=== PATIENT | female | born 1940 | race Caucasian/White ===

== ENCOUNTER → 2016-10-17 | Outpatient (CLI) | payer OTHER ==
[~2016-10-17] MED LIST: ACET-1175 PO; ADVIN10/60 INH; AMOX500C3 PO; ASPI1CHW12 PO; BUSP15TA70 PO; CYM/30 PO; DILT-113 PO; DILT180C9 PO; DRGTP25 TD; FURO40TA3 PO; GLUC1CAP33 PO; IPRASOL4 INH; LEVO75TA PO; MAGN1TAB19 PO; MECL1TAB42 PO; METO50TA16 PO; MONT1TAB3 PO; PANT40TA PO; POTA20TA16 PO; PROM25TA9 PO; SENN-91 PO; SUCR1TAB29 PO; TRAM-453 PO; WARF3TAB6 PO; WARF4TAB43 PO; ZOLP5TAB PO
--- NOTE | 2016-10-17 11:54 | DIAGNOSTIC IMAGING REPORT ---
Brain MRI WITHOUT CONTRAST HISTORY: R51 New onset of headaches after age [id number] TECHNIQUE: Multiplanar multisequence MRI of the brain was performed without the use of contrast. COMPARISON STUDY: Brain MRI 08/02/2015. FINDINGS: There is no mass, hematoma, midline shift, or acute infarct. The paranasal sinuses are clear. The mastoid or cells are clear. The ventricles and sulci demonstrate mild age-related involutional changes. Scattered foci of T2 hyperintensity seen within the periventricular and subcortical white matter are nonspecific but suggestive of mild microvascular ischemic changes. The major vascular flow voids at the skull base are well-maintained. IMPRESSION: No significant change compared to the prior study. No acute intracranial abnormality. Electronically signed by: Neo Alcazar M.D. 10/17/2016 11:53 AM Dictated Date/Time: 10/17/2016 11:47 AM
== END | disposition home or self-care (01) ==
LOC: C.MRIBC 10:56
PROVIDERS: ATTEND Psychiatry & Neurology Neurology
DX: R51 Headache (principal)

== ENCOUNTER → 2017-08-16 | Day surgery (SDC) | payer OTHER ==
[2017-08-14 08:15] VITALS: Ht 167.6 cm; Wt 121.8 kg
[~2017-08-16] VITALS: Ht 167.6 cm; Wt 121.8 kg
[~2017-08-16] MED LIST changes: -AMOX500C3 PO; +ATROPINE SULFATE 0.1 MG/ML 5ML SYR IV PRN; +BUSP-8 PO; -BUSP15TA70 PO; +CARB1DRO2 OPB; -CYM/30 PO; -DILT-113 PO; +DILT120C99 PO; -DILT180C9 PO; +DLCS PR; +DOCU-94 PO; -DRGTP25 TD; +DULO60CA44 PO; +EpHEDrine SULFATE INJ 50 MG/ML AMP IV PRN; +FERR1TAB62 PO; +FNTTP50 TD; +FURO-85 PO; +GUAI100S18 PO; +LYR50 PO; -MECL1TAB42 PO; +METO25TA56 PO; -METO50TA16 PO; +MICO1POW TOP; +MOMLX PO; +OXGN; +POLY1POW2 PO; +POTA20TA11 PO; -POTA20TA16 PO; -PROM25TA9 PO; -SENN-91 PO; +SENN1TAB80 PO; +SODIENE PR; +SODIUM CHLORIDE 0.9% 500ML 500 ML IV ONE; +TRAM-10 PO; -TRAM-453 PO; -WARF4TAB43 PO
--- NOTE | 2017-08-16 08:39 | Endo History and Physical ---
History & Physical Date of Service: Aug 16, 2017. Chief Complaint: screening,anemia Referring Physician: Dr.Doriann Lemus History of Present Illness patient for screening colonoscopy Past Medical History Diabetes, Arthritis, Asthma, Hypertension, Thyroid Disease Past Surgical History Hx Cardiac Surgery: No Hx Abdominal Surgery: Yes (BLT INGUINAL HERNIA REPAIR) Hx Cancer Surgery: No Hx Thoracic Surgery: No Hx Orthopedic: Yes (Right elbow tumor removal) Hx Urinary Tract Surgery: No Family History None Social History Smoking Status: Never Smoker Hx Substance Use: Yes (SEE MED REC) Hx Alcohol Use: No Allergies Coded Allergies: Morphine (Verified Adverse Reaction, Intermediate, vomiting, 08/14/17) Oxycodone (Verified Adverse Reaction, Intermediate, vomit blood, 08/14/17) Propoxyphene (Verified Adverse Reaction, Intermediate, abd vomit blood, ) Tramadol (Verified Adverse Reaction, Intermediate, vomiting, 08/14/17) Codeine (Verified Adverse Reaction, Mild, vomiting, 08/14/17) Olmesartan (Verified Adverse Reaction, Mild, GI SYMPTOMS, 03/01/16) Sulfa Antibiotics (Verified Adverse Reaction, Mild, GI SYMPTOMS, 03/01/16) Sulfamethoxazole w/Trimethoprim (Verified Adverse Reaction, Mild, GI SYMPTOMS, 03/01/16) Carisoprodol (Verified Adverse Reaction, Unknown, GI SYMPTOMS, 03/01/16) Current Medications Reported Home Medications Medications Dose Route/Sig Max Daily Dose Days Date Category Dose Instructions Oxygen Gas 2 Liters NA UD PRN 08/14/17 Reported Lubricant Eye Drops (Carboxymethylcellulose Sodium) 0.5 % Dino 1 Drop OPB Q4H PRN 08/14/17 Reported Ultram (Tramadol HCl) 50 Mg Tab 50 Mg PO Q4H PRN 08/14/17 Reported Milk of Magnesia (Magnesium Hydroxide) 30 Ml Susp 30 Ml PO UD PRN 08/14/17 Reported Fleet Enema (Sodium Phosphate/Biphosphate) Shirin 1 Ea DE UD PRN 08/14/17 Reported Cough Syrup (Guaifenesin) 100 Mg/5 Ml Syp 10 Ml PO Q4H PRN 08/14/17 Reported Bisac-Evac (Bisacodyl) 10 Mg Supp 1 Supp DE UD PRN 08/14/17 Reported Ultram (Tramadol HCl) 50 Mg Tab 1 Tab PO TID 08/14/17 Reported Potassium Chloride Cr (Potassium Chloride Microencaps) 20 Meq Tab 1 Tab PO BID 08/14/17 Reported Senna Lax (Sennosides) 8.6 Mg Tab 1 Tab PO BID 08/14/17 Reported Polyethylene Glycol 3350 (Polyethylene Glycol 3350 (Bulk) 1 Pow Pow 17 Gm PO Q2D 08/14/17 Reported Miconazole 1 Pow Pow 1 Dose TOP UD 08/14/17 Reported Lyrica (Pregabalin) 50 Mg Cap 50 Mg PO TID 08/14/17 Reported Lasix (Furosemide) 20 Mg Tab 20 Mg PO DAILY 08/14/17 Reported Ferrous Sulfate 325 Mg Tab 1 Tab PO BID 08/14/17 Reported Duragesic (Fentanyl) 50 Mcg Tdsy 50 Mcg TD CQ72HR 08/14/17 Reported Diltiazem Cd (Diltiazem Hcl Coated Beads) 120 Mg Cap 120 Mg PO DAILY 08/14/17 Reported Colace (Docusate Sodium) 100 Mg Cap 1 Cap PO BID 08/14/17 Reported Lopressor (Metoprolol Tartrate) 25 Mg Tab 0.5 Tab PO BID 08/14/17 Reported Buspirone Hcl 10 Mg Tab 10 Mg PO BID 08/14/17 Reported Cymbalta (Duloxetine Hcl) 60 Mg Cap 60 Mg PO DAILY 08/14/17 Reported Ambien (Zolpidem Tartrate) 5 Mg Tab 0.5 Tab PO HS 03/01/16 Reported Duoneb (Ipratropium-Albuterol) 3 Ml Nebu 1 Treatment INH Q4H PRN 02/12/16 Reported Jantoven (Warfarin Sodium) 3 Mg Tab 3 Mg PO 6XWK 02/12/16 Reported SUN,MON,TUES,THURS,FRI,SAT Carafate (Sucralfate) 1 Gm Tab 1 Tab PO ACHS 02/12/16 Reported Singulair (Montelukast Sodium) 10 Mg Tab 1 Tab PO DAILY 02/12/16 Reported Glucosamine & Chondroitin 500-400 mg (Glucosamine-Chondroitin) 1 Cap Cap 1 Cap PO TID 09/24/15 Reported Synthroid (Levothyroxine Sodium) 75 Mcg Tab 75 Mcg PO DAILY 08/02/15 Reported Tylenol (Acetaminophen) 325 Mg Tab 650 Mg PO Q4H PRN 08/02/15 Reported Magnesium Oxide (Magnesium Oxide (Mg Supplement) 400 Mg Tab 400 Mg PO BID 08/02/15 Reported Lasix (Furosemide) 40 Mg Tab 1 Tab PO DAILY 08/02/15 Reported Aspirin 81 Low Dose (Aspirin) 81 Mg Chw 1 Tab PO DAILY 08/02/15 Reported Advair Diskus 100/50 60 Dose (Fluticasone Prop/Salmeterol) 1 Ea Aerp 1 Puffs INH BID 08/02/15 Reported Protonix (Pantoprazole Sodium) 40 Mg Tab 40 Mg PO DAILY 08/02/15 Reported Vital Signs Weight (Kilograms): 121.82 Height (Feet): 5 Height (Inches): 6 Date Time Temp Pulse Resp B/P (MAP) Pulse Ox O2 Delivery O2 Flow Rate FiO2 08/16/17 08:21 37.1 67 20 142/83 (102) 96 Room Air Physical Exam General Appearance: no apparent distress Respiratory/Chest: Auscultation: breath sounds normal Cardiovascular: Heart Auscultation: RRR Abdomen: Inspection & Palpation: soft, non-distended Assessment and Plan stable for colonoscopy
--- NOTE | 2017-08-16 09:08 | Discharge Instructions ---
Endoscopy Patient Instructions Date / Procedure(s) Performed Aug 16, 2017. Colonoscopy Allergy Information Coded Allergies: Morphine (Verified Adverse Reaction, Intermediate, vomiting, 08/14/17) Oxycodone (Verified Adverse Reaction, Intermediate, vomit blood, 08/14/17) Propoxyphene (Verified Adverse Reaction, Intermediate, abd vomit blood, ) Tramadol (Verified Adverse Reaction, Intermediate, vomiting, 08/14/17) Codeine (Verified Adverse Reaction, Mild, vomiting, 08/14/17) Olmesartan (Verified Adverse Reaction, Mild, GI SYMPTOMS, 03/01/16) Sulfa Antibiotics (Verified Adverse Reaction, Mild, GI SYMPTOMS, 03/01/16) Sulfamethoxazole w/Trimethoprim (Verified Adverse Reaction, Mild, GI SYMPTOMS, 03/01/16) Carisoprodol (Verified Adverse Reaction, Unknown, GI SYMPTOMS, 03/01/16) Discharge Date / Findings Aug 16, 2017. colonoscopy with poor prep; will need to be rescheduled. Medication Instructions Stopped Medication(s): Coumadin and ASA given yesterday Provider Instructions Activity Restrictions - No exercising or heavy lifting for 24 hours. - Do not drink alcohol the day of the procedure. - Do not drive a car or operate machinery until the day after the procedure. - Do not make any important decisions or sign important papers in 24 hours after the procedure. Following Day: - Return to full activity which may include returning to work/school. Diet Start your diet with liquids and light foods (jello, soup, juice, toast). Then eat your usual diet if not nauseated. Treatment For Common After Affects For mild abdominal pain, bloating, or excessive gas: - Rest - Eat lightly - Lie on right side Follow-Up Information Follow-up with Dr.Doriann Lemus as scheduled Anesthesia Information What You Should Know You have had a procedure that required some medicine to reduce anxiety and discomfort. This treatment is called moderate sedation. After receiving the treatment, you may be sleepy, but you will be able to breathe on your own. The effects of the treatment may last for several hours. Follow these instructions along with Activity/Diet recommendations noted above: * Do NOT do anything where dizziness or clumsiness would be dangerous. * Rest quietly at home today, then you can be up and about tomorrow. * Have a responsible person stay with you the rest of today. * You may have had an I.V. today. If so, you may take the dressing off later today. Recommendations Call your doctor if: * Trouble breathing * Continuous vomiting for more than 24 hours * Temperature above 101 degrees * Severe abdominal pain or bloating * Pain not relieved by pain medicine ordered * There is increased drainage or redness from any incision * A large amount of rectal bleeding greater than 2-3 tablespoons. (If you had a polyp/s removed or have hemorrhoids, a small amount of blood - from the rectum is to be expected.) * You have any unanswered questions or concerns. IN THE EVENT OF A SERIOUS EMERGENCY, GO TO THE NEAREST EMERGENCY ROOM Your discharge instructions were prepared by provider Elmer Collins. Patient Instructions Signature Page Margareth Crane Patient (or Guardian) Signature/Date: I have read and understand the instructions given to me by my caregivers. Caregiver/RN/Doctor Signature/Date: The above-named patient and/or guardian has received patient instructions on this date. + Original Patient Signature Page (only) stays with chart. Please make copy for patient.
--- NOTE | 2017-08-16 09:22 | Anesthesiology Progress Note ---
Anesthesia Post Op Note Date & Time Aug 16, 2017 at 09:21 Vital Signs Pain Intensity: 6 Vital Signs Past 12 Hours Date Time Temp Pulse Resp B/P (MAP) Pulse Ox O2 Delivery O2 Flow Rate FiO2 08/16/17 08:21 37.1 67 20 142/83 (102) 96 Room Air Notes Mental Status: alert / awake / arousable, participated in evaluation Pt Amnestic to Procedure: Yes Nausea / Vomiting: adequately controlled Pain: adequately controlled Airway Patency, RR, SpO2: stable & adequate BP & HR: stable & adequate Hydration State: stable & adequate Anesthetic Complications: no major complications apparent
[2017-08-16 09:35] VITALS: BP 162/94; PULSE 64; O2SAT 96
--- NOTE | 2017-08-17 00:23 | GI REPORT ---
Procedure Date: 08/16/2017 8:16 AM Procedure: Colonoscopy Indications: Unexplained iron deficiency anemia Medicines: See the Anesthesia note for documentation of the administered medications Complications: No immediate complications. Estimated Blood Loss: Estimated blood loss: none. Procedure: Pre-Anesthesia Assessment: - Prior to the procedure, a History and Physical was performed, and patient medications, allergies and sensitivities were reviewed. The patient's tolerance of previous anesthesia was reviewed. - The risks and benefits of the procedure and the sedation options and risks were discussed with the patient. All questions were answered and informed consent was obtained. - Patient identification and proposed procedure were verified prior to the procedure by the physician and the nurse. The procedure was verified in the pre-procedure area. - Pre-procedure physical examination revealed no contraindications to sedation. - After reviewing the risks and benefits, the patient was deemed in satisfactory condition to undergo the procedure. After I obtained informed consent, the scope was passed under direct vision. Throughout the procedure, the patient's blood pressure, pulse, and oxygen saturations were monitored continuously. The scope was introduced through the anus with the intention of advancing to the cecum. The scope was advanced to the transverse colon before the procedure was aborted due to poor prep. Medications were given. The colonoscopy was performed without difficulty. The patient tolerated the procedure well. The quality of the bowel preparation was inadequate. Findings: The perianal and digital rectal examinations were normal. Extensive amounts of stool was found in the entire examined colon, interfering with visualization. Impression: - Preparation of the colon was inadequate. - Stool in the entire examined colon. - No specimens collected. Recommendation: - Repeat colonoscopy at appointment to be scheduled because the bowel preparation was poor. - Discharge patient to home. Elmer Collins M.D. Elmer Collins MD 08/16/2017 9:03:20 AM This report has been signed electronically. Note Initiated On: 08/16/2017 8:16 AM I attest to the content of the Intraoperative Record and orders documented therein, exceptions below
== END | disposition home or self-care (01) ==
LOC: C.GI 07:34
PROVIDERS: ATTEND Internal Medicine Gastroenterology
DX: Z12.11 Encounter for screening for malignant neoplasm of colon (principal); D64.9 Anemia, unspecified; E11.9 Type 2 diabetes mellitus without complications; M19.90 Unspecified osteoarthritis, unspecified site; J45.909 Unspecified asthma, uncomplicated; I10 Essential (primary) hypertension; Z79.84 Long term (current) use of oral hypoglycemic drugs; Z79.01 Long term (current) use of anticoagulants; I25.10 Atherosclerotic heart disease of native coronary artery without angina pectoris; I48.91 Unspecified atrial fibrillation; I50.9 Heart failure, unspecified; Z86.711 Personal history of pulmonary embolism; K21.9 Gastro-esophageal reflux disease without esophagitis; E03.9 Hypothyroidism, unspecified; Z79.82 Long term (current) use of aspirin; Z99.81 Dependence on supplemental oxygen

== ENCOUNTER → 2017-08-17 | Day surgery (SDC) | payer OTHER ==
[2017-08-16 14:54] VITALS: BMI 43.0
[~2017-08-17] VITALS: Ht 167.6 cm; Wt 121.8 kg
[~2017-08-17] MED LIST changes: +LIDOCAINE HCL 2% 2 ML VIAL (20MG/ML) ONE; +MIDAZOLAM HCL 1 MG/ML 2ML VIAL ONE; +ONDANSETRON INJ 2 MG/ML 2 ML VIAL ONE; +PROPOFOL IV EMULSION 10 MG/ML 20 ML VIAL IV ONE
[2017-08-17 09:55] VITALS: Ht 167.6 cm; Wt 121.8 kg
--- NOTE | 2017-08-17 10:19 | Endo History and Physical ---
History & Physical Date of Service: Aug 17, 2017. Chief Complaint: ANEMIA Referring Physician: DR TORRES History of Present Illness anemia and poor prep on previous exam. Past Medical History Diabetes, Arthritis, Asthma, Hypertension, Thyroid Disease Past Surgical History Hx Cardiac Surgery: No Hx Abdominal Surgery: Yes (BLT INGUINAL HERNIA REPAIR) Hx Cancer Surgery: No Hx Thoracic Surgery: No Hx Orthopedic: Yes (Right elbow tumor removal) Hx Urinary Tract Surgery: No Family History None Social History Smoking Status: Never Smoker Hx Substance Use: Yes (SEE MED REC) Hx Alcohol Use: No Allergies Coded Allergies: Morphine (Verified Adverse Reaction, Intermediate, vomiting, 08/17/17) Oxycodone (Verified Adverse Reaction, Intermediate, vomit blood, 08/17/17) Propoxyphene (Verified Adverse Reaction, Intermediate, abd vomit blood, ) Tramadol (Verified Adverse Reaction, Intermediate, vomiting, 08/17/17) Codeine (Verified Adverse Reaction, Mild, vomiting, 08/17/17) Olmesartan (Verified Adverse Reaction, Mild, GI SYMPTOMS, 08/17/17) Sulfa Antibiotics (Verified Adverse Reaction, Mild, GI SYMPTOMS, 08/17/17) Sulfamethoxazole w/Trimethoprim (Verified Adverse Reaction, Mild, GI SYMPTOMS, 08/17/17) Carisoprodol (Verified Adverse Reaction, Unknown, GI SYMPTOMS, 08/17/17) Current Medications Reported Home Medications Medications Dose Route/Sig Max Daily Dose Days Date Category Dose Instructions Oxygen Gas 2 Liters NA UD PRN 08/14/17 Reported Lubricant Eye Drops (Carboxymethylcellulose Sodium) 0.5 % Dino 1 Drop OPB Q4H PRN 08/14/17 Reported Ultram (Tramadol HCl) 50 Mg Tab 50 Mg PO Q4H PRN 08/14/17 Reported Milk of Magnesia (Magnesium Hydroxide) 30 Ml Susp 30 Ml PO UD PRN 08/14/17 Reported Fleet Enema (Sodium Phosphate/Biphosphate) Shirin 1 Ea LA UD PRN 08/14/17 Reported Cough Syrup (Guaifenesin) 100 Mg/5 Ml Syp 10 Ml PO Q4H PRN 08/14/17 Reported Bisac-Evac (Bisacodyl) 10 Mg Supp 1 Supp LA UD PRN 08/14/17 Reported Ultram (Tramadol HCl) 50 Mg Tab 1 Tab PO TID 08/14/17 Reported Potassium Chloride Cr (Potassium Chloride Microencaps) 20 Meq Tab 1 Tab PO BID 08/14/17 Reported Senna Lax (Sennosides) 8.6 Mg Tab 1 Tab PO BID 08/14/17 Reported Polyethylene Glycol 3350 (Polyethylene Glycol 3350 (Bulk) 1 Pow Pow 17 Gm PO Q2D 08/14/17 Reported Miconazole 1 Pow Pow 1 Dose TOP UD 08/14/17 Reported Lyrica (Pregabalin) 50 Mg Cap 50 Mg PO TID 08/14/17 Reported Lasix (Furosemide) 20 Mg Tab 20 Mg PO DAILY 08/14/17 Reported Ferrous Sulfate 325 Mg Tab 1 Tab PO BID 08/14/17 Reported Duragesic (Fentanyl) 50 Mcg Tdsy 50 Mcg TD CQ72HR 08/14/17 Reported Diltiazem Cd (Diltiazem Hcl Coated Beads) 120 Mg Cap 120 Mg PO DAILY 08/14/17 Reported Colace (Docusate Sodium) 100 Mg Cap 1 Cap PO BID 08/14/17 Reported Lopressor (Metoprolol Tartrate) 25 Mg Tab 0.5 Tab PO BID 08/14/17 Reported Buspirone Hcl 10 Mg Tab 10 Mg PO BID 08/14/17 Reported Cymbalta (Duloxetine Hcl) 60 Mg Cap 60 Mg PO DAILY 08/14/17 Reported Ambien (Zolpidem Tartrate) 5 Mg Tab 0.5 Tab PO HS 03/01/16 Reported Duoneb (Ipratropium-Albuterol) 3 Ml Nebu 1 Treatment INH Q4H PRN 02/12/16 Reported Jantoven (Warfarin Sodium) 3 Mg Tab 3 Mg PO 6XWK 02/12/16 Reported SUN,MON,TUES,THURS,FRI,SAT Carafate (Sucralfate) 1 Gm Tab 1 Tab PO ACHS 02/12/16 Reported Singulair (Montelukast Sodium) 10 Mg Tab 1 Tab PO DAILY 02/12/16 Reported Glucosamine & Chondroitin 500-400 mg (Glucosamine-Chondroitin) 1 Cap Cap 1 Cap PO TID 09/24/15 Reported Synthroid (Levothyroxine Sodium) 75 Mcg Tab 75 Mcg PO DAILY 08/02/15 Reported Tylenol (Acetaminophen) 325 Mg Tab 650 Mg PO Q4H PRN 08/02/15 Reported Magnesium Oxide (Magnesium Oxide (Mg Supplement) 400 Mg Tab 400 Mg PO BID 08/02/15 Reported Lasix (Furosemide) 40 Mg Tab 1 Tab PO DAILY 08/02/15 Reported Aspirin 81 Low Dose (Aspirin) 81 Mg Chw 1 Tab PO DAILY 08/02/15 Reported Advair Diskus 100/50 60 Dose (Fluticasone Prop/Salmeterol) 1 Ea Aerp 1 Puffs INH BID 08/02/15 Reported Protonix (Pantoprazole Sodium) 40 Mg Tab 40 Mg PO DAILY 08/02/15 Reported Vital Signs Weight (Kilograms): 121.82 Height (Feet): 5 Height (Inches): 6 Date Time Temp Pulse Resp B/P (MAP) Pulse Ox O2 Delivery O2 Flow Rate FiO2 08/17/17 10:01 36.5 82 16 171/85 (113) 94 Room Air Physical Exam General Appearance: no apparent distress Respiratory/Chest: Auscultation: breath sounds normal, rhonchi Cardiovascular: Heart Auscultation: RRR Abdomen: Inspection & Palpation: soft Liver: non-tender Assessment and Plan stable for colonoscopy
--- NOTE | 2017-08-17 10:45 | Discharge Instructions ---
Endoscopy Patient Instructions Date / Procedure(s) Performed Aug 17, 2017. Colonoscopy Allergy Information Coded Allergies: Morphine (Verified Adverse Reaction, Intermediate, vomiting, 08/17/17) Oxycodone (Verified Adverse Reaction, Intermediate, vomit blood, 08/17/17) Propoxyphene (Verified Adverse Reaction, Intermediate, abd vomit blood, ) Tramadol (Verified Adverse Reaction, Intermediate, vomiting, 08/17/17) Codeine (Verified Adverse Reaction, Mild, vomiting, 08/17/17) Olmesartan (Verified Adverse Reaction, Mild, GI SYMPTOMS, 08/17/17) Sulfa Antibiotics (Verified Adverse Reaction, Mild, GI SYMPTOMS, 08/17/17) Sulfamethoxazole w/Trimethoprim (Verified Adverse Reaction, Mild, GI SYMPTOMS, 08/17/17) Carisoprodol (Verified Adverse Reaction, Unknown, GI SYMPTOMS, 08/17/17) Discharge Date / Findings Aug 17, 2017. small colon polyp removed. Medication Instructions Stopped Medication(s): IRON Provider Instructions Activity Restrictions - No exercising or heavy lifting for 24 hours. - Do not drink alcohol the day of the procedure. - Do not drive a car or operate machinery until the day after the procedure. - Do not make any important decisions or sign important papers in 24 hours after the procedure. Following Day: - Return to full activity which may include returning to work/school. Diet Start your diet with liquids and light foods (jello, soup, juice, toast). Then eat your usual diet if not nauseated. Treatment For Common After Affects For mild abdominal pain, bloating, or excessive gas: - Rest - Eat lightly - Lie on right side Follow-Up Information Follow-up with DR TORRES as scheduled Anesthesia Information What You Should Know You have had a procedure that required some medicine to reduce anxiety and discomfort. This treatment is called moderate sedation. After receiving the treatment, you may be sleepy, but you will be able to breathe on your own. The effects of the treatment may last for several hours. Follow these instructions along with Activity/Diet recommendations noted above: * Do NOT do anything where dizziness or clumsiness would be dangerous. * Rest quietly at home today, then you can be up and about tomorrow. * Have a responsible person stay with you the rest of today. * You may have had an I.V. today. If so, you may take the dressing off later today. Recommendations Call your doctor if: * Trouble breathing * Continuous vomiting for more than 24 hours * Temperature above 101 degrees * Severe abdominal pain or bloating * Pain not relieved by pain medicine ordered * There is increased drainage or redness from any incision * A large amount of rectal bleeding greater than 2-3 tablespoons. (If you had a polyp/s removed or have hemorrhoids, a small amount of blood - from the rectum is to be expected.) * You have any unanswered questions or concerns. IN THE EVENT OF A SERIOUS EMERGENCY, GO TO THE NEAREST EMERGENCY ROOM Your discharge instructions were prepared by provider Elmer Collins. Patient Instructions Signature Page Margareth Crane Patient (or Guardian) Signature/Date: I have read and understand the instructions given to me by my caregivers. Caregiver/RN/Doctor Signature/Date: The above-named patient and/or guardian has received patient instructions on this date. + Original Patient Signature Page (only) stays with chart. Please make copy for patient.
--- NOTE | 2017-08-17 11:13 | Anesthesiology Progress Note ---
Anesthesia Post Op Note Date & Time Aug 17, 2017 at 11:13 Vital Signs Pain Intensity: 0 Vital Signs Past 12 Hours Date Time Temp Pulse Resp B/P (MAP) Pulse Ox O2 Delivery O2 Flow Rate FiO2 08/17/17 11:11 84 20 156/100 (118) 94 Room Air 08/17/17 10:56 82 20 152/85 (107) 94 Room Air 08/17/17 10:01 36.5 82 16 171/85 (113) 94 Room Air Notes Mental Status: alert / awake / arousable, participated in evaluation Pt Amnestic to Procedure: Yes Nausea / Vomiting: adequately controlled Pain: adequately controlled Airway Patency, RR, SpO2: stable & adequate BP & HR: stable & adequate Hydration State: stable & adequate Anesthetic Complications: no major complications apparent
[2017-08-17 11:29] VITALS: BP 147/88; PULSE 82; O2SAT 94
--- NOTE | 2017-08-17 14:00 | GI REPORT ---
Procedure Date: 08/17/2017 10:22 AM Procedure: Colonoscopy Indications: Screening for colorectal malignant neoplasm/ poor prep on previous exam. Medicines: See the Anesthesia note for documentation of the administered medications Complications: No immediate complications. Estimated Blood Loss: Estimated blood loss was minimal. Procedure: Pre-Anesthesia Assessment: - Prior to the procedure, a History and Physical was performed, and patient medications, allergies and sensitivities were reviewed. The patient's tolerance of previous anesthesia was reviewed. - The risks and benefits of the procedure and the sedation options and risks were discussed with the patient. All questions were answered and informed consent was obtained. - Patient identification and proposed procedure were verified prior to the procedure by the physician and the nurse. The procedure was verified in the pre-procedure area. - Pre-procedure physical examination revealed no contraindications to sedation. - After reviewing the risks and benefits, the patient was deemed in satisfactory condition to undergo the procedure. After I obtained informed consent, the scope was passed under direct vision. Throughout the procedure, the patient's blood pressure, pulse, and oxygen saturations were monitored continuously. The scope was introduced through the anus and advanced to the cecum, identified by appendiceal orifice and ileocecal valve. The colonoscopy was performed without difficulty. The patient tolerated the procedure well. The quality of the bowel preparation was good. Findings: The perianal and digital rectal examinations were normal except for hemorrhoids. A 5 mm polyp was found at 40 cm proximal to the anus. The polyp was sessile. The polyp was removed with a cold snare. Resection and retrieval were complete. Verification of patient identification for the specimen was done by the physician and nurse using the patient's name and medical record number. Estimated blood loss was minimal. Multiple small and large-mouthed diverticula were found in the sigmoid colon and in the descending colon. The exam was otherwise without abnormality on direct and retroflexion views. Impression: - One 5 mm polyp at 40 cm proximal to the anus, removed with a cold snare. Resected and retrieved. - Diverticulosis in the sigmoid colon and in the descending colon. - Hemorrhoids. - The examination was otherwise normal on direct and retroflexion views. Recommendation: - Await pathology results. - Discharge patient to home. Elmer Collins M.D. Elmer Collins MD 08/17/2017 10:47:28 AM This report has been signed electronically. Note Initiated On: 08/17/2017 10:22 AM I attest to the content of the Intraoperative Record and orders documented therein, exceptions below
== END | disposition home or self-care (01) ==
LOC: C.GI 09:34
PROVIDERS: ATTEND Internal Medicine Gastroenterology
DX: Z12.11 Encounter for screening for malignant neoplasm of colon (principal); K64.9 Unspecified hemorrhoids; D12.6 Benign neoplasm of colon, unspecified; K57.30 Diverticulosis of large intestine without perforation or abscess without bleeding; E03.9 Hypothyroidism, unspecified; J45.909 Unspecified asthma, uncomplicated; I25.10 Atherosclerotic heart disease of native coronary artery without angina pectoris; I10 Essential (primary) hypertension; G47.33 Obstructive sleep apnea (adult) (pediatric); Z68.41 Body mass index [BMI] 40.0-44.9, adult; Z79.899 Other long term (current) drug therapy; E66.01 Morbid (severe) obesity due to excess calories

== ENCOUNTER 2017-12-12 17:42 | Observation (INO) | payer OTHER ==
[~2017-12-12] VITALS: Ht 167.6 cm; Wt 125.0 kg
[~2017-12-12 17:42] MED LIST changes: -ATROPINE SULFATE 0.1 MG/ML 5ML SYR IV PRN; -EpHEDrine SULFATE INJ 50 MG/ML AMP IV PRN; -GLUC1CAP33 PO; -LIDOCAINE HCL 2% 2 ML VIAL (20MG/ML) ONE; -MIDAZOLAM HCL 1 MG/ML 2ML VIAL ONE; -ONDANSETRON INJ 2 MG/ML 2 ML VIAL ONE; -PROPOFOL IV EMULSION 10 MG/ML 20 ML VIAL IV ONE; -SODIUM CHLORIDE 0.9% 500ML 500 ML IV ONE
[2017-12-12] MEDS ORDERED: NITROGLYCERIN 0.4 MG SL PER TAB CHARGE SL PRN ×2 (18:15→23:45)
--- NOTE | 2017-12-12 18:22 | DIAGNOSTIC IMAGING REPORT ---
SINGLE VIEW CHEST CLINICAL HISTORY: Atypical chest pain. FINDINGS: An AP, portable, upright chest radiograph is compared to study dated 02/12/2016 and correlated with chest CT dated 06/10/2015. The examination is degraded by portable technique and patient rotation. The heart is enlarged and there is atherosclerotic calcification of the thoracic aorta. The pulmonary mass culture is noncongested. Chronic interstitial thickening is similar to previous. Bibasilar atelectasis is noted. No airspace consolidation or large pleural effusion is identified. No pneumothorax is seen. The skeletal structures are osteopenic. There are numerous healed right-sided rib fractures. Advanced arthritic change and deformity is seen in the shoulders. IMPRESSION: Cardiomegaly with no acute cardiopulmonary abnormality. Electronically signed by: Coleman Smith M.D. 12/12/2017 6:21 PM Dictated Date/Time: 12/12/2017 6:07 PM
[2017-12-12] MEDS ORDERED: [UNRECOGNIZED DRUG - OTHER] TOP (18:32)
[2017-12-12] MEDS ORDERED: ALUMSUS2 PO (18:32)
[2017-12-12] MEDS ORDERED: ADVIN50/60 INH (18:32)
[2017-12-12] MEDS ORDERED: CYM60 PO (18:32)
[2017-12-12] MEDS ORDERED: NTRGSL/4 UT (18:32)
[2017-12-12] MEDS ORDERED: CMD/3 PO (18:32)
[2017-12-12] MEDS ORDERED: FEXO1TAB49 PO (18:32)
[2017-12-12] MEDS: ASPIRIN 81 MG CHEW PO STA ×2 (18:33→18:38)
[2017-12-12] MEDS ORDERED: GUAI100S75 PO (18:44)
[2017-12-12] MEDS ORDERED: PRED20TA PO (18:44)
[2017-12-12] MEDS ORDERED: DILT-213 PO (18:56)
[2017-12-12 19:10] LABS: HEMATOCRIT 43.4 % (37-47); IG# 0.03 K/uL (0.00-0.02); LYMPH % 23.8 %; LYMPH ABS # 2.98 K/uL (1.2-3.4); MEAN CELL VOLUME 97.3 fL (80-100); MEAN CORPUSCULAR HEMOGLOBIN 33.6 pg (25-34); MEAN CORPUSCULAR HGB CONC 34.6 g/dl (32-36); MEAN PLATELET VOLUME 10.5 fL (7.4-10.4); MONO % 5.4 %; MONO ABS # 0.67 K/uL (0.11-0.59); NEUT % 70.6 %; NEUT ABS # 8.84 K/uL (1.4-6.5); PLATELET COUNT 262 K/uL (130-400); RED CELL DISTRIBUTION WIDTH CV 15.6 % (11.5-14.5); RED CELL DISTRIBUTION WIDTH SD 55.6 fL (36.4-46.3); WHITE BLOOD COUNT 12.52 K/uL (4.8-10.8)
[2017-12-12 19:20] LABS: INR 2.9 (0.9-1.1)
[2017-12-12 19:31] LABS: BLOOD UREA NITROGEN 25 mg/dl (7-18); CALCIUM 8.7 mg/dl (8.5-10.1); CARBON DIOXIDE 30 mmol/L (21-32); CREATININE 0.99 mg/dl (0.60-1.20); GLUCOSE 146 mg/dl (70-99); POTASSIUM 3.8 mmol/L (3.5-5.1); SODIUM 138 mmol/L (136-145)
[2017-12-12 19:36] LABS: CKMB 0.8 ng/ml (0.5-3.6)
[2017-12-12] MEDS ORDERED: POTASSIUM CHLORIDE 10 MEQ TABCR PO STA (20:30)
[2017-12-12 20:32] LABS: ALKALINE PHOSPHATASE 107 U/L (45-117); ALT/SGPT 21 U/L (12-78); AST/SGOT 12 U/L (15-37); LIPASE 47 U/L (73-393); TOTAL PROTEIN 6.7 gm/dl (6.4-8.2)
[2017-12-12] MEDS ORDERED: METOPROLOL TARTRATE 25 MG TAB PO STA (20:42)
[2017-12-12] MEDS ORDERED: GLUC1CAP33 PO (22:03)
[2017-12-12] MEDS ORDERED: MICO1POW TOP (22:17)
--- NOTE | 2017-12-12 23:04 | History and Physical ---
History & Physical Date & Time of Service: Dec 12, 2017 ~ 22:00 Chief Complaint: Chest Pain Primary Care Physician: Viry Lemus M.D. History of Present Illness 77-year-old female who presents to the ER chest pain. Patient currently resides at [facility]. She reports that she went for a walk this morning and then developed lower midsternal/epigastric discomfort with associated diaphoresis. She reports she went back to her room and lay down symptoms resolved. She got up to take another walk this afternoon and had recurrence of her symptoms. She was given sublingual nitroglycerin and Maalox without any relief in the discomfort. She rates the pain as 7/10 at its worst. She describes the pain as pressure-like and feeling as though she would need to belch. No radiation of the pain into the jaw, neck, shoulder,or arm. She denies palpitations. No lightheadedness, dizziness, or syncopal events. She reports she has been feeling well recently. She has chronic lower extremity edema which is unchanged. No orthopnea. No abdominal pain, nausea, vomiting, or diarrhea. She denies fever chills. No urinary symptoms. In the ER, patient was given an additional nitroglycerin. She reports the chest pain did not resolve until approximately 2 hours after the nitroglycerin. Initial troponin is negative and EKG does not show any acute ST changes. Other labs are unremarkable. Vital signs are stable. Past Medical/Surgical History Medical Problems: (1) Ambulatory dysfunction Status: Chronic (2) Arthritis Status: Chronic (3) Asthma Status: Chronic (4) Atrial fibrillation Status: Chronic (5) Chronic back pain Status: Chronic (6) Chronic gastritis Status: Chronic (7) Chronic pain Status: Chronic (8) Diastolic CHF Status: Chronic (9) DJD (degenerative joint disease), multiple sites Status: Chronic (10) DM type 2 (diabetes mellitus, type 2) Status: Chronic (11) Generalized anxiety disorder Status: Chronic (12) Hypertension Status: Chronic (13) Hypothyroidism Status: Chronic (14) Muscle spasm Status: Chronic (15) Obesity (BMI 30-39.9) Status: Chronic (16) Pulmonary embolism Status: Chronic (17) Stenosis of right carotid artery Status: Chronic Surgical Problems: (1) H/O hernia repair Status: Chronic Family History Diabetes mellitus FATHER Hypertension FATHER Social History Smoking Status: Never Smoker Alcohol Use: occasionally Housing status: [facility] Allergies Coded Allergies: Morphine (Verified Adverse Reaction, Intermediate, vomiting, 08/17/17) Oxycodone (Verified Adverse Reaction, Intermediate, vomit blood, 08/17/17) Propoxyphene (Verified Adverse Reaction, Intermediate, abd vomit blood, ) Tramadol (Verified Adverse Reaction, Intermediate, vomiting, 08/17/17) Codeine (Verified Adverse Reaction, Mild, vomiting, 08/17/17) Olmesartan (Verified Adverse Reaction, Mild, GI SYMPTOMS, 08/17/17) Sulfa Antibiotics (Verified Adverse Reaction, Mild, GI SYMPTOMS, 08/17/17) Sulfamethoxazole w/Trimethoprim (Verified Adverse Reaction, Mild, GI SYMPTOMS, 08/17/17) Carisoprodol (Verified Adverse Reaction, Unknown, GI SYMPTOMS, 08/17/17) Home Medications Scheduled Aspirin (Aspirin 81 Low Dose), 1 TAB PO DAILY Buspirone Hcl (Buspirone Hcl), 10 MG PO BID Diltiazem Hcl Coated Beads (Diltiazem Hcl Er), 120 MG PO DAILY Docusate Sodium (Colace), 1 CAP PO BID Duloxetine HCl (Duloxetine HCl), 60 MG PO DAILY Fentanyl (Duragesic), 50 MCG TD CQ72HR Ferrous Sulfate (Ferrous Sulfate), 1 TAB PO BID Fexofenadine Hcl (Kim Allergy), 1 TAB PO DAILY Fluticasone Prop/Salmeterol (Advair Diskus 500/50 60 Dose), 1 PUFF INH BID Furosemide (Lasix), 40 MG PO DAILY Furosemide (Lasix), 20 MG PO DAILY Glucosamine-Chondroitin (Glucosamine & Chondroitin 500-400 mg), 1 CAP PO TID Levothyroxine Sodium (Synthroid), 75 MCG PO DAILY Magnesium Oxide (Mg Supplement (Magnesium Oxide), 400 MG PO BID Metoprolol Tartrate (Lopressor) (Lopressor), 0.5 TAB PO BID Miconazole (Miconazole), 1 APPLN TOP TID Montelukast Sodium (Singulair), 1 TAB PO DAILY Pantoprazole (Protonix), 40 MG PO DAILY Polyethylene Glycol 3350 (Bulk (Polyethylene Glycol 3350), 17 GM PO Q2D Potassium Chloride Microencaps (Potassium Chloride Cr), 1 TAB PO QAM Prednisone (Prednisone), 20 MG PO 5 DAYS Pregabalin (Lyrica), 50 MG PO TID Sennosides (Senna Lax), 1 TAB PO BID Sucralfate (Carafate), 1 TAB PO ACHS Tramadol (Ultram), 1 TAB PO TID Warfarin Sod (Jantoven), 3 MG PO 4XWK Warfarin Sod (Warfarin Sodium), 1.5 MG PO 3XWK Zolpidem Tartrate (Ambien), 0.5 TAB PO HS Scheduled PRN Acetaminophen (Tylenol), 650 MG PO Q4H PRN for Pain or Fever Bisacodyl (Bisac-Evac), 1 SUPP [place] UD PRN for PRN Carboxymethylcellulose Sodium (Lubricant Eye Drops), 1 DROP OPB BID PRN for DRY EYES Guaifenesin (Siltussin Sa), 10 ML PO Q4 PRN for Cough Ipratropium-Albuterol (Duoneb), 1 TREATMENT INH Q4H PRN for SOB/Wheezing Magnesium Hydroxide (Milk of Magnesia), 30 ML PO UD PRN for PRN Sodium Phosphate/Biphosphate (Fleet Enema), 1 EA MT UD PRN for PRN Tramadol (Ultram), 50 MG PO Q4H PRN for Pain Review of Systems ROS per HPI, all other systems reviewed and negative Physical Exam Vital Signs Date Time Temp Pulse Resp B/P (MAP) Pulse Ox O2 Delivery O2 Flow Rate FiO2 12/12/17 21:55 106 18 155/74 95 Room Air 12/12/17 21:17 20 144/64 96 Room Air 12/12/17 21:02 94 20 142/99 93 Room Air 12/12/17 19:29 106 23 124/100 95 Room Air 12/12/17 19:05 105 23 120/87 95 Room Air 12/12/17 19:03 91 12/12/17 18:32 102 21 139/96 94 Room Air 12/12/17 17:55 37.1 117 20 157/93 93 Room Air 12/12/17 17:55 93 Room Air General Appearance: WD/WN, no apparent distress, + obese Head: normocephalic, atraumatic Eyes: normal inspection, EOMI, sclerae normal ENT: hearing grossly normal, + pertinent finding (Mucous membranes moist) Neck: supple, no JVD, trachea midline Respiratory/Chest: no respiratory distress, + decreased breath sounds Cardiovascular: normal peripheral pulses, + irregularly irregular (Rate controlled), + pertinent finding (+1-+2 edema BLLE) Abdomen/GI: normal bowel sounds, non tender, soft, no organomegaly Extremities/Musculoskelatal: normal inspection, no calf tenderness, normal capillary refill Neurologic/Psych: no motor/sensory deficits, alert, normal mood/affect, oriented x 3 Skin: normal color, warm/dry Diagnostics Laboratory Results Results Past 24 Hours Test 12/12/17 18:40 12/12/17 21:47 Range/Units White Blood Count 12.52 4.8-10.8 K/uL Red Blood Count 4.46 4.2-5.4 M/uL Hemoglobin 15.0 12.0-16.0 g/dL Hematocrit 43.4 37-47 % Mean Corpuscular Volume 97.3 80-100 fL Mean Corpuscular Hemoglobin 33.6 25-34 pg Mean Corpuscular Hemoglobin Concent 34.6 32-36 g/dl Platelet Count 262 130-400 K/uL Mean Platelet Volume 10.5 7.4-10.4 fL Neutrophils (%) (Auto) 70.6 % Lymphocytes (%) (Auto) 23.8 % Monocytes (%) (Auto) 5.4 % Eosinophils (%) (Auto) 0.0 % Basophils (%) (Auto) 0.0 % Neutrophils # (Auto) 8.84 1.4-6.5 K/uL Lymphocytes # (Auto) 2.98 1.2-3.4 K/uL Monocytes # (Auto) 0.67 0.11-0.59 K/uL Eosinophils # (Auto) 0.00 0-0.5 K/uL Basophils # (Auto) 0.00 0-0.2 K/uL RDW Standard Deviation 55.6 36.4-46.3 fL RDW Coefficient of Variation 15.6 11.5-14.5 % Immature Granulocyte % (Auto) 0.2 % Immature Granulocyte # (Auto) 0.03 0.00-0.02 K/uL Prothrombin Time 30.0 9.0-12.0 SECONDS Prothromb Time International Ratio 2.9 0.9-1.1 Sodium Level 138 136-145 mmol/L Potassium Level 3.8 3.5-5.1 mmol/L Chloride Level 101 98-107 mmol/L Carbon Dioxide Level 30 21-32 mmol/L Anion Gap 7.0 3-11 mmol/L Blood Urea Nitrogen 25 7-18 mg/dl Creatinine 0.99 0.60-1.20 mg/dl Est Creatinine Clear Calc Drug Dose 65.3 ml/min Estimated GFR () 64.2 Estimated GFR (Non- 55.4 BUN/Creatinine Ratio 25.0 10-20 Random Glucose 146 70-99 mg/dl Calcium Level 8.7 8.5-10.1 mg/dl Total Bilirubin 0.4 0.2-1 mg/dl Direct Bilirubin 0.1 0-0.2 mg/dl Aspartate Amino Transf (AST/SGOT) 12 15-37 U/L Alanine Aminotransferase (ALT/SGPT) 21 12-78 U/L Alkaline Phosphatase 107 45-117 U/L Total Creatine Kinase 22 26-192 U/L Creatine Kinase MB 0.8 0.5-3.6 ng/ml Creatine Kinase MB Ratio 3.6 0-3.0 Troponin I < 0.015 0-0.045 ng/ml Total Protein 6.7 6.4-8.2 gm/dl Albumin 3.0 3.4-5.0 gm/dl Lipase 47 73-393 U/L Procalcitonin < 0.05 0-0.5 ng/ml Lactic Acid Level 2.0 0.4-2.0 mmol/L Microbiology Results 12/12/17 Blood Culture, Received Pending 12/12/17 Blood Culture, Received Pending Diagnostic Radiology CXR IMPRESSION: Cardiomegaly with no acute cardiopulmonary abnormality. Impression Assessment and Plan Please refer to Dr. John's note for assessment and plan. Resuscitation Status VTE Prophylaxis Will order VTE Prophylaxis: Yes Assessment/Plan IM ATTENDING : Patient seen and examined. History obtained per patient and records. Preceding documentation by CARLO Tapia reviewed. In addition, 2D echo from October 2017 showed EF 50-55%, LAE enlargement, Diastolic dysfunction, mild MR, mild TR. FINAL ASSESSMENT AND PLAN as follows: 1. Chest pain, possible acute coronary syndrome. Chest pain relieved by nitroglycerin. 2. HTN, stable a 3. Atrial fibrillation, rate controlled. INR therapeutic. 4. PVD as per records.Chronic pain on narcotics. 5. Recent episode of asthmatic bronchitis, improving on ongoing outpatient steroid prescription. 6. DM diet-controlled. Well-controlled as of recent hemoglobin A1c, 5.4 last 11/2017 7. hx MRSA as per records Observation PCU. Continue home aspirin for CAD prevention until ACS ruled out. Further eval management of chest pain as per Cardiology. (Patient known to Dr. Martell.) ISS BG goal 140-180 DVT prophylaxis, Lovenox subQ. Full code.
[2017-12-12] MEDS ORDERED: IV FLUIDS COMPLETED PRN (23:15)
[2017-12-12 23:30] VITALS: BP 130/104; PULSE 94; TEMP 37; O2SAT 98; Ht 167.6 cm; Wt 125.0 kg
[2017-12-12] MEDS ORDERED: PROCHLORPERAZINE INJ 5 MG in SYRINGE 4 ML IV PRN (23:45)
[2017-12-12] MEDS ORDERED: TRAMADOL HCL 50 MG TAB PO PRN (23:45)
[2017-12-12] MEDS ORDERED: HYDROmorphone INJ 0.5 MG/0.5 ML SYR IV PRN (23:45)
[2017-12-12] MEDS ORDERED: ACETAMINOPHEN 325 MG TAB PO PRN (23:45)
[2017-12-12] MEDS ORDERED: SOD PHOSPHATE/SOD BIPHOSPHATE ENEMA 132 ML BTL PR PRN (23:45)
[2017-12-13 00:01] VITALS: O2SAT 96
--- NOTE | 2017-12-13 00:20 | EMERGENCY ROOM VISIT NOTE ---
History Report prepared by Von: Mick Donaldson Under the Supervision of: Dr. Ankur Atwood D.O. First contact with patient: 17:51 Stated Complaint: CHEST PRESSURE History of Present Illness The patient is a 77 year old female who presents to the Emergency Room with complaints of constant chest pressure starting around 1500 today. She states that she had come chest pressure this morning, though it went away and came back at 1500. The patient states that she has been sweating and a little short of breath. The patient notes that she gets short of breath with walking, though she states that the chest pressure is not worse. She denies any arm pain or jaw pain, and she states that she has never had pain like this before. Patient denies diabetes, hyperlipidemia, CAD, family history of CAD, and smoking. She notes that she uses oxygen at home while walking around. The patient is currently on Coumadin for a history of A-fib and PEs, and she states that she has not missed any doses. The patient reports that her last bowel movement was this morning, and she states that she had some diarrhea, though she has been taking MiraLAX. Source of History: patient Onset: 1500 Position: chest Quality: pressure Timing: constant Associated Symptoms: + SOB Note: Associated symptoms: Sweating Review of Systems See HPI for pertinent positives & negatives. A total of 10 systems reviewed and were otherwise negative. Past Medical & Surgical Medical Problems: (1) Ambulatory dysfunction (2) Arthritis (3) Asthma (4) Atrial fibrillation (5) Chronic back pain (6) Chronic gastritis (7) Chronic pain (8) Diastolic CHF (9) DJD (degenerative joint disease), multiple sites (10) DM type 2 (diabetes mellitus, type 2) (11) Generalized anxiety disorder (12) Hypertension (13) Hypothyroidism (14) Muscle spasm (15) Obesity (BMI 30-39.9) (16) Pulmonary embolism (17) Sepsis (18) Stenosis of right carotid artery Surgical Problems: (1) H/O hernia repair Family History Cancer Heart disease Hypertension Social History Smoking Status: Never Smoker Alcohol Use: none Drug Use: none Marital Status: single Housing Status: lives alone Occupation Status: retired Current/Historical Medications Scheduled Aspirin (Aspirin 81 Low Dose), 1 TAB PO DAILY Buspirone Hcl (Buspirone Hcl), 10 MG PO BID Diltiazem Hcl Coated Beads (Diltiazem Hcl Er), 120 MG PO DAILY Docusate Sodium (Colace), 1 CAP PO BID Duloxetine HCl (Duloxetine HCl), 60 MG PO DAILY Fentanyl (Duragesic), 50 MCG TD CQ72HR Ferrous Sulfate (Ferrous Sulfate), 1 TAB PO BID Fexofenadine Hcl (Kim Allergy), 1 TAB PO DAILY Fluticasone Prop/Salmeterol (Advair Diskus 500/50 60 Dose), 1 PUFF INH BID Furosemide (Lasix), 40 MG PO DAILY Furosemide (Lasix), 20 MG PO DAILY Glucosamine-Chondroitin (Glucosamine & Chondroitin 500-400 mg), 1 CAP PO TID Levothyroxine Sodium (Synthroid), 75 MCG PO DAILY Magnesium Oxide (Mg Supplement (Magnesium Oxide), 400 MG PO BID Metoprolol Tartrate (Lopressor) (Lopressor), 0.5 TAB PO BID Miconazole (Miconazole), 1 APPLN TOP TID Montelukast Sodium (Singulair), 1 TAB PO DAILY Pantoprazole (Protonix), 40 MG PO DAILY Polyethylene Glycol 3350 (Bulk (Polyethylene Glycol 3350), 17 GM PO Q2D Potassium Chloride Microencaps (Potassium Chloride Cr), 1 TAB PO QAM Prednisone (Prednisone), 20 MG PO 5 DAYS Pregabalin (Lyrica), 50 MG PO TID Sennosides (Senna Lax), 1 TAB PO BID Sucralfate (Carafate), 1 TAB PO ACHS Tramadol (Ultram), 1 TAB PO TID Warfarin Sod (Jantoven), 3 MG PO 4XWK Warfarin Sod (Warfarin Sodium), 1.5 MG PO 3XWK Zolpidem Tartrate (Ambien), 0.5 TAB PO HS Scheduled PRN Acetaminophen (Tylenol), 650 MG PO Q4H PRN for Pain or Fever Bisacodyl (Bisac-Evac), 1 SUPP [place] UD PRN for PRN Carboxymethylcellulose Sodium (Lubricant Eye Drops), 1 DROP OPB BID PRN for DRY EYES Guaifenesin (Siltussin Sa), 10 ML PO Q4 PRN for Cough Ipratropium-Albuterol (Duoneb), 1 TREATMENT INH Q4H PRN for SOB/Wheezing Magnesium Hydroxide (Milk of Magnesia), 30 ML PO UD PRN for PRN Sodium Phosphate/Biphosphate (Fleet Enema), 1 EA [place] UD PRN for PRN Tramadol (Ultram), 50 MG PO Q4H PRN for Pain Allergies Coded Allergies: Morphine (Verified Adverse Reaction, Intermediate, vomiting, 08/17/17) Oxycodone (Verified Adverse Reaction, Intermediate, vomit blood, 08/17/17) Propoxyphene (Verified Adverse Reaction, Intermediate, abd vomit blood, ) Tramadol (Verified Adverse Reaction, Intermediate, vomiting, 08/17/17) Codeine (Verified Adverse Reaction, Mild, vomiting, 08/17/17) Olmesartan (Verified Adverse Reaction, Mild, GI SYMPTOMS, 08/17/17) Sulfa Antibiotics (Verified Adverse Reaction, Mild, GI SYMPTOMS, 08/17/17) Sulfamethoxazole w/Trimethoprim (Verified Adverse Reaction, Mild, GI SYMPTOMS, 08/17/17) Carisoprodol (Verified Adverse Reaction, Unknown, GI SYMPTOMS, 08/17/17) Physical Exam Vital Signs Date Time Temp Pulse Resp B/P (MAP) Pulse Ox O2 Delivery O2 Flow Rate FiO2 12/12/17 21:55 106 18 155/74 95 Room Air 12/12/17 21:17 20 144/64 96 Room Air 12/12/17 21:02 94 20 142/99 93 Room Air 12/12/17 19:29 106 23 124/100 95 Room Air 12/12/17 19:05 105 23 120/87 95 Room Air 12/12/17 19:03 91 12/12/17 18:32 102 21 139/96 94 Room Air 12/12/17 17:55 37.1 117 20 157/93 93 Room Air 12/12/17 17:55 93 Room Air Physical Exam GENERAL: Obese, sitting up in bed, disheveled, no acute distress, non-toxic EYE EXAM: normal conjunctiva. OROPHARYNX: no exudate, no erythema, lips, buccal mucosa, and tongue normal and mucous membranes are moist NECK: supple, no nuchal rigidity, no adenopathy, non-tender LUNGS: Clear to auscultation. Normal chest wall mechanics HEART: Irregularly irregular. CHEST: Mild reproducible anterior chest wall pain. ABDOMEN: abdomen soft, non-tender, normo-active bowel sounds, no masses, no rebound or guarding. BACK: Back is symmetrical on inspection and there is no deformity, no midline tenderness, no CVA tenderness. SKIN: no rashes and no bruising UPPER EXTREMITIES: upper extremities are grossly normal. LOWER EXTREMITIES: Calves are equal bilaterally. No pitting edema. NEURO EXAM: Normal sensorium, cranial nerves II-XII grossly intact, normal speech, no gross weakness of arms, no gross weakness of legs. Medical Decision & Procedures ER Provider Diagnostic Interpretation: Radiology results as stated below per my review and the radiologist's interpretation: SINGLE VIEW CHEST CLINICAL HISTORY: Atypical chest pain. FINDINGS: An AP, portable, upright chest radiograph is compared to study dated 02/12/2016 and correlated with chest CT dated 06/10/2015. The examination is degraded by portable technique and patient rotation. The heart is enlarged and there is atherosclerotic calcification of the thoracic aorta. The pulmonary mass culture is noncongested. Chronic interstitial thickening is similar to previous. Bibasilar atelectasis is noted. No airspace consolidation or large pleural effusion is identified. No pneumothorax is seen. The skeletal structures are osteopenic. There are numerous healed right-sided rib fractures. Advanced arthritic change and deformity is seen in the shoulders. IMPRESSION: Cardiomegaly with no acute cardiopulmonary abnormality. Electronically signed by: Coleman Smith M.D. 12/12/2017 6:21 PM Dictated Date/Time: 12/12/2017 6:07 PM Laboratory Results 12/12/17 18:40 Red Blood Count 4.46, Mean Corpuscular Volume 97.3, Mean Corpuscular Hemoglobin 33.6, Mean Corpuscular Hemoglobin Concent 34.6, Mean Platelet Volume 10.5, Neutrophils (%) (Auto) 70.6, Lymphocytes (%) (Auto) 23.8, Monocytes (%) (Auto) 5.4, Eosinophils (%) (Auto) 0.0, Basophils (%) (Auto) 0.0, Neutrophils # (Auto) 8.84, Lymphocytes # (Auto) 2.98, Monocytes # (Auto) 0.67, Eosinophils # (Auto) 0.00, Basophils # (Auto) 0.00 12/12/17 18:40 Test 12/12/17 18:40 12/12/17 21:47 White Blood Count 12.52 K/uL (4.8-10.8) Red Blood Count 4.46 M/uL (4.2-5.4) Hemoglobin 15.0 g/dL (12.0-16.0) Hematocrit 43.4 % (37-47) Mean Corpuscular Volume 97.3 fL (80-100) Mean Corpuscular Hemoglobin 33.6 pg (25-34) Mean Corpuscular Hemoglobin Concent 34.6 g/dl (32-36) Platelet Count 262 K/uL (130-400) Mean Platelet Volume 10.5 fL (7.4-10.4) Neutrophils (%) (Auto) 70.6 % Lymphocytes (%) (Auto) 23.8 % Monocytes (%) (Auto) 5.4 % Eosinophils (%) (Auto) 0.0 % Basophils (%) (Auto) 0.0 % Neutrophils # (Auto) 8.84 K/uL (1.4-6.5) Lymphocytes # (Auto) 2.98 K/uL (1.2-3.4) Monocytes # (Auto) 0.67 K/uL (0.11-0.59) Eosinophils # (Auto) 0.00 K/uL (0-0.5) Basophils # (Auto) 0.00 K/uL (0-0.2) RDW Standard Deviation 55.6 fL (36.4-46.3) RDW Coefficient of Variation 15.6 % (11.5-14.5) Immature Granulocyte % (Auto) 0.2 % Immature Granulocyte # (Auto) 0.03 K/uL (0.00-0.02) Prothrombin Time 30.0 SECONDS (9.0-12.0) Prothromb Time International Ratio 2.9 (0.9-1.1) Anion Gap 7.0 mmol/L (3-11) Est Creatinine Clear Calc Drug Dose 65.3 ml/min Estimated GFR () 64.2 Estimated GFR (Non- 55.4 BUN/Creatinine Ratio 25.0 (10-20) Calcium Level 8.7 mg/dl (8.5-10.1) Total Bilirubin 0.4 mg/dl (0.2-1) Direct Bilirubin 0.1 mg/dl (0-0.2) Aspartate Amino Transf (AST/SGOT) 12 U/L (15-37) Alanine Aminotransferase (ALT/SGPT) 21 U/L (12-78) Alkaline Phosphatase 107 U/L (45-117) Total Creatine Kinase 22 U/L (26-192) Creatine Kinase MB 0.8 ng/ml (0.5-3.6) Creatine Kinase MB Ratio 3.6 (0-3.0) Total Protein 6.7 gm/dl (6.4-8.2) Albumin 3.0 gm/dl (3.4-5.0) Lipase 47 U/L (73-393) Procalcitonin < 0.05 ng/ml (0-0.5) Lactic Acid Level 2.0 mmol/L (0.4-2.0) Laboratory results per my review. Medications Administered Medications (Trade) Dose Ordered Sig/[place] Route Start Time Stop Time Status Last Admin Dose Admin Nitroglycerin (Nitrostat Tab) 0.4 mg Q5M PRN SL 12/12/17 18:15 01/11/18 18:14 12/12/17 18:34 0.4 MG Potassium Chloride (Klor-Con M10) 20 meq NOW STAT PO 12/12/17 20:30 12/12/17 20:41 DC 12/12/17 20:30 20 MEQ Metoprolol Tartrate (Lopressor Tab) 12.5 mg NOW STAT PO 12/12/17 20:42 12/12/17 20:43 DC 12/12/17 20:42 12.5 MG ECG Per My Interpretation Indication: chest pain Rate (beats per minute): 101 Rhythm: atrial fibrillation Findings: other (Poor Baseline. Normal intervals) ED Course ED COURSE: Vital signs were reviewed and showed tachycardia and hypertension. The patients medical record was reviewed The above diagnostic studies were performed and reviewed. ED treatments and interventions as stated above. 1750: The patient was evaluated in room C4. A complete history and physical examination was performed. 1814: Nitroglycerin 0.4mg SL 5: I reevaluated the patient, and her chest pain is down to a 1-2/10 in severity after the nitro. 1948: Upon reevaluation, the patient is doing well.I discussed my findings with the patient and she understands and agrees with the treatment plan. Based on the patients age, coexisting illnesses, exam and lab findings the decision to treat as an inpatient was made. The patient remained stable while under my care. The patient will be evaluated for further management. 1950: I reviewed the patient's case with Dr. Alvaro Lemus. He will evaluate the patient for further management. Medical Decision Differential diagnoses includes but is not limited to acute coronary syndrome, myocardial infarction, pericarditis, pulmonary embolus, aortic dissection, pneumonia, pneumothorax, musculoskeletal, shingles, esophageal. Patient is a 77-year-old female who presents the ER for precordial chest pain associated with shortness of breath which did start after exertion. It was associated with sweating. CBC shows a mild leukocytosis. BMP along with LFTs, bilirubin and troponin were negative. Lipase is normal. INR was therapeutic at 2.9. Chest x-ray shows no focal infiltrate. EKG was fairly unremarkable. Patient was given nitro and had complete resolution of her pain. She has already received aspirin prior to arrival. He was updated at bedside and discussed case with internal medicine for observation overnight. Medication Reconcilliation Current Medication List: was personally reviewed by me Blood Pressure Screening Patient's blood pressure: Elevated blood pressure Monitored by the hospitalist. Consults Time Called: 1945 Consulting Physician: Dr. Alvaro Lemus Returned Call: 1949 I reviewed the patient's case with Dr. Alvaro Lemus. He will evaluate the patient for further management. Impression Primary Impression: Precordial chest pain Scribe Attestation The scribe's documentation has been prepared under my direction and personally reviewed by me in its entirety. I confirm that the note above accurately reflects all work, treatment, procedures, and medical decision making performed by me. Departure Information Dispostion Being Evaluated By Hospitalist Viry Gastelum M.D. (PCP)
[2017-12-13] MEDS ORDERED: NSS + 20MEQ KCL 1000ML 1,000 ML IV SCH (02:30)
[2017-12-13 04:00] VITALS: O2SAT 96
[2017-12-13 06:28] LABS: BASO % 0.1 %; BASO ABS # 0.01 K/uL (0-0.2); EOS % 1.1 %; EOS ABS # 0.12 K/uL (0-0.5); HEMATOCRIT 44.1 % (37-47); HEMOGLOBIN 14.9 g/dL (12.0-16.0); IG# 0.03 K/uL (0.00-0.02); LYMPH % 36.9 %; LYMPH ABS # 4.12 K/uL (1.2-3.4); MEAN CELL VOLUME 98.7 fL (80-100); MEAN CORPUSCULAR HEMOGLOBIN 33.3 pg (25-34); MEAN CORPUSCULAR HGB CONC 33.8 g/dl (32-36); MEAN PLATELET VOLUME 10.5 fL (7.4-10.4); MONO % 8.2 %; MONO ABS # 0.92 K/uL (0.11-0.59); NEUT % 53.4 %; NEUT ABS # 5.97 K/uL (1.4-6.5); PLATELET COUNT 221 K/uL (130-400); RED CELL DISTRIBUTION WIDTH CV 15.6 % (11.5-14.5); RED CELL DISTRIBUTION WIDTH SD 56.2 fL (36.4-46.3); WHITE BLOOD COUNT 11.17 K/uL (4.8-10.8)
[2017-12-13 06:36] LABS: INR 2.4 (0.9-1.1)
[2017-12-13] MEDS ORDERED: LEVOTHYROXINE 75 MCG TAB PO SCH (07:00)
[2017-12-13] MEDS ORDERED: METOPROLOL TARTRATE 25 MG TAB PO ONE (07:03)
[2017-12-13 08:00] VITALS: O2SAT 96
[2017-12-13] MEDS ORDERED: CHECK FENTANYL PATCH PLACEMENT SCH (08:00)
--- NOTE | 2017-12-13 08:58 | HISTORY & PHYSICAL EXAMINATION ---
DATE OF ADMISSION: 12/12/2017 IM ATTENDING : Patient seen and examined. History obtained per patient and records. Preceding documentation by CARLO Tapia reviewed. In addition, 2D echo from October 2017 showed EF 50-55%, LAE enlargement, Diastolic dysfunction, mild MR, mild TR. FINAL ASSESSMENT AND PLAN as follows: 1. Chest pain, possible acute coronary syndrome. Chest pain relieved by nitroglycerin. 2. HTN, stable a 3. Atrial fibrillation, rate controlled. INR therapeutic. 4. PVD as per records.Chronic pain on narcotics. 5. Recent episode of asthmatic bronchitis, improving on ongoing outpatient steroid prescription. 6. DM diet-controlled. Well-controlled as of recent hemoglobin A1c, 5.4 last 11/2017 7. hx MRSA as per records Observation PCU. Continue home aspirin for CAD prevention until ACS ruled out. Further eval management of chest pain as per Cardiology. (Patient known to Dr. Martell.) ISS BG goal 140-180 DVT prophylaxis, Lovenox subQ. Full code. MTDD
[2017-12-13] MEDS ORDERED: POLYETHYLENE (MIRALAX) 17 GM PACK PO SCH (09:00)
[2017-12-13] MEDS ORDERED: DOCUSATE SODIUM 100 MG CAP PO SCH (09:00)
[2017-12-13] MEDS ORDERED: FLUTICASONE/SALMETEROL (ADVAIR) 500/50 INH 14 PUFF INH SCH (09:00)
[2017-12-13] MEDS ORDERED: DULOXETINE HCL 60 MG CAP PO SCH (09:00)
[2017-12-13] MEDS ORDERED: FERROUS SULFATE 325 MG TAB PO SCH (09:00)
[2017-12-13] MEDS: DILTIAZEM HCL 120 MG CAPCR PO SCH ×2 (09:00→13:19)
[2017-12-13] MEDS ORDERED: METOPROLOL TARTRATE 25 MG TAB PO SCH ×2 (09:00→21:00)
[2017-12-13] MEDS ORDERED: PANTOprazole SOD 40 MG TAB PO SCH (09:00)
[2017-12-13] MEDS ORDERED: FEXOFENADINE HCL 180 MG TAB PO SCH (09:00)
[2017-12-13] MEDS ORDERED: MONTELUKAST SOD 10 MG TAB PO SCH (09:00)
[2017-12-13] MEDS ORDERED: ASPIRIN 81 MG ECTAB PO SCH (09:00)
[2017-12-13] MEDS ORDERED: SENNA 8.6 MG TAB PO SCH (09:00)
--- NOTE | 2017-12-13 09:44 | Cardiology Consultation ---
Cardiology Consultation Date of Consultation: Dec 13, 2017 History of Present Illness Patient is a 77 year old female seen in cardiology consultation per the request of Dr Silver for the evaluation of chest discomfort. Pt is a resident of [facility]. She follows with Dr Martell of our practice for paroxysmal and perhaps persistent atrial fibrillation for which she is on cardizem orally and warfarin as an outpt. She presents with onset of acute chest pain and diaphoresis with walking yesterday at [facility]. Discomfort apparently resolved with SL nitroglycerin administration. Currently I have seen in ED room C4 where she is a telemetry overflow patient. She is asymptomatic and felt well last night. Telemetry reveals rate controlled AF at 89 bpm, with mild non specific ST flattening on presenting EKG at which time AF at 101 bpm was present. Last EKG at [facility] in 2015 when admitted for sepsis revealed SR. Past Medical/Surgical History Problem List: Medical Problems: (1) Ambulatory dysfunction (2) Arthritis (3) Asthma (4) Atrial fibrillation (5) Chronic back pain (6) Chronic gastritis (7) Chronic pain (8) Diastolic CHF (9) DJD (degenerative joint disease), multiple sites (10) DM type 2 (diabetes mellitus, type 2) (11) Generalized anxiety disorder (12) Hypertension (13) Hypothyroidism (14) Muscle spasm (15) Obesity (BMI 30-39.9) (16) Pulmonary embolism (17) Sepsis (18) Stenosis of right carotid artery Surgical Problems: (1) H/O hernia repair History Past Surgical History: Hernia repair Cyst removal from arm No past cardiac cath or cardiac surgery Social History: Resides at [facility] Non smoker 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 A total of 10 systems reviewed and were otherwise negative. Allergies Coded Allergies: Morphine (Verified Adverse Reaction, Intermediate, vomiting, 08/17/17) Oxycodone (Verified Adverse Reaction, Intermediate, vomit blood, 08/17/17) Propoxyphene (Verified Adverse Reaction, Intermediate, abd vomit blood, ) Tramadol (Verified Adverse Reaction, Intermediate, vomiting, 08/17/17) Codeine (Verified Adverse Reaction, Mild, vomiting, 08/17/17) Olmesartan (Verified Adverse Reaction, Mild, GI SYMPTOMS, 08/17/17) Sulfa Antibiotics (Verified Adverse Reaction, Mild, GI SYMPTOMS, 08/17/17) Sulfamethoxazole w/Trimethoprim (Verified Adverse Reaction, Mild, GI SYMPTOMS, 08/17/17) Carisoprodol (Verified Adverse Reaction, Unknown, GI SYMPTOMS, 08/17/17) Medications Reported Home Medications Medications Dose Route/Sig Max Daily Dose Days Date Category Dose Instructions Miconazole 1 Pow Pow 1 Appln TOP TID 12/12/17 Reported Diltiazem Hcl Er (Diltiazem Hcl Coated Beads) 120 Mg Cap 120 Mg PO DAILY 12/12/17 Reported Siltussin Sa (Guaifenesin) 100 Mg/5 Ml Syp 10 Ml PO Q4 PRN 12/12/17 Reported Prednisone 20 Mg Tab 20 Mg PO 5 DAYS 12/12/17 Reported Duloxetine HCl 60 Mg Cap 60 Mg PO DAILY 12/12/17 Reported Warfarin Sodium (Warfarin Sod) 3 Mg Tab 1.5 Mg PO 3XWK 12/12/17 Reported TAKE MON, SUN, SUN Kim Allergy (Fexofenadine Hcl) 180 Mg Tab 1 Tab PO DAILY 14 12/12/17 Reported Advair Diskus 500/50 60 Dose (Fluticasone Prop/Salmeterol) 1 Ea Aerp 1 Puff INH BID 12/12/17 Reported Lubricant Eye Drops (Carboxymethylcellulose Sodium) 0.5 % Dino 1 Drop OPB BID PRN 08/14/17 Reported Ultram (Tramadol HCl) 50 Mg Tab 50 Mg PO Q4H PRN 08/14/17 Reported Milk of Magnesia (Magnesium Hydroxide) 30 Ml Susp 30 Ml PO UD PRN 08/14/17 Reported Fleet Enema (Sodium Phosphate/Biphosphate) Shirin 1 Ea [place] UD PRN 08/14/17 Reported Bisac-Evac (Bisacodyl) 10 Mg Supp 1 Supp [place] UD PRN 08/14/17 Reported Ultram (Tramadol HCl) 50 Mg Tab 1 Tab PO TID 08/14/17 Reported Potassium Chloride Cr (Potassium Chloride Microencaps) 20 Meq Tab 1 Tab PO QAM 08/14/17 Reported Senna Lax (Sennosides) 8.6 Mg Tab 1 Tab PO BID 08/14/17 Reported Polyethylene Glycol 3350 (Polyethylene Glycol 3350 (Bulk) 1 Pow Pow 17 Gm PO Q2D 08/14/17 Reported Lyrica (Pregabalin) 50 Mg Cap 50 Mg PO TID 08/14/17 Reported Lasix (Furosemide) 20 Mg Tab 20 Mg PO DAILY 08/14/17 Reported Ferrous Sulfate 325 Mg Tab 1 Tab PO BID 08/14/17 Reported Duragesic (Fentanyl) 50 Mcg Tdsy 50 Mcg TD [id number] 08/14/17 Reported Colace (Docusate Sodium) 100 Mg Cap 1 Cap PO BID 08/14/17 Reported Lopressor (Metoprolol Tartrate) 25 Mg Tab 0.5 Tab PO BID 08/14/17 Reported Buspirone Hcl 10 Mg Tab 10 Mg PO BID 08/14/17 Reported Ambien (Zolpidem Tartrate) 5 Mg Tab 0.5 Tab PO HS 03/01/16 Reported Duoneb (Ipratropium-Albuterol) 3 Ml Nebu 1 Treatment INH Q4H PRN 02/12/16 Reported Jantoven (Warfarin Sodium) 3 Mg Tab 3 Mg PO 4XWK 02/12/16 Reported SUN,JORJE, TRAVIS, MARYJANE Carafate (Sucralfate) 1 Gm Tab 1 Tab PO ACHS 02/12/16 Reported Singulair (Montelukast Sodium) 10 Mg Tab 1 Tab PO DAILY 02/12/16 Reported Glucosamine & Chondroitin 500-400 mg (Glucosamine-Chondroitin) 1 Cap Cap 1 Cap PO TID 09/24/15 Reported Synthroid (Levothyroxine Sodium) 75 Mcg Tab 75 Mcg PO DAILY 08/02/15 Reported Tylenol (Acetaminophen) 325 Mg Tab 650 Mg PO Q4H PRN 08/02/15 Reported Magnesium Oxide (Magnesium Oxide (Mg Supplement) 400 Mg Tab 400 Mg PO BID 08/02/15 Reported Lasix (Furosemide) 40 Mg Tab 40 Mg PO DAILY 08/02/15 Reported Aspirin 81 Low Dose (Aspirin) 81 Mg Chw 1 Tab PO DAILY 08/02/15 Reported Protonix (Pantoprazole Sodium) 40 Mg Tab 40 Mg PO DAILY 08/02/15 Reported Physical Exam Vital Signs (Last 8hrs): Last 8 Hrs Date Time Temp Pulse Resp B/P (MAP) Pulse Ox O2 Delivery O2 Flow Rate FiO2 12/13/17 08:00 96 Nasal Cannula 2.0 12/13/17 06:40 110 12/13/17 04:00 96 Nasal Cannula 2.0 12/13/17 03:10 81 General Appearance: Alert and Oriented x3. NAD. Head: Normocephalic Atraumatic. Eyes: PERRLA, EOMI, conjunctiva and sclera clear Neck: Supple. No carotid bruits noted. No JVD. No HJD. Respiratory: Breath sounds clear to auscultation bilaterally. No w/r/r. Cardiovascular: irregular rhythm, S1 and S2 noted. No murmurs, rubs, gallops. PMI non displace. Abdomen: Normal bowel sounds, soft nontender. no abdominal bruits. Extremities: No edema, no clubbing or cyanosis. distal pulses 2/4 bilaterally. Neuro: No focal deficits. Psychiatric: Normal affect. Data Last Resulted 12/13/17 06:19 Red Blood Count 4.47, Mean Corpuscular Volume 98.7, Mean Corpuscular Hemoglobin 33.3, Mean Corpuscular Hemoglobin Concent 33.8, Mean Platelet Volume 10.5, Neutrophils (%) (Auto) 53.4, Lymphocytes (%) (Auto) 36.9, Monocytes (%) (Auto) 8.2, Eosinophils (%) (Auto) 1.1, Basophils (%) (Auto) 0.1, Neutrophils # (Auto) 5.97, Lymphocytes # (Auto) 4.12, Monocytes # (Auto) 0.92, Eosinophils # (Auto) 0.12, Basophils # (Auto) 0.01 Last Resulted 12/12/17 18:40 Past 24 Hours Test 12/12/17 18:40 12/12/17 23:48 12/13/17 06:19 Range/Units Creatine Kinase MB 0.8 0.5-3.6 ng/ml Creatine Kinase MB Ratio 3.6 H 0-3.0 Prothromb Time International Ratio 2.9 H 2.4 H 0.9-1.1 Prothrombin Time 30.0 H 24.8 H 9.0-12.0 SECONDS Total Creatine Kinase 22 L 26-192 U/L Troponin I < 0.015 < 0.015 < 0.015 0-0.045 ng/ml EKG and telemetry as outlined above Assessment & Plan Impression: 77 year old female 1. Chest pain, negative EKG , negative troponin x 3 2. AF, PAF, versus persistent AF, was in SR in 2016 at [place] Plan: hold am diltiazem, administer remaining medications including coumadin. Proceed with DSE.
[2017-12-13] MEDS: SUCRALFATE 1 GM TAB PO SCH ×2 (10:49→13:19)
[2017-12-13] MEDS ORDERED: METOPROLOL TARTRATE 1 MG/ML VIAL ONE ×2 (11:54→12:20)
[2017-12-13] MEDS ORDERED: DOBUTamine HCL 12.5 MG/ML 20 ML VIAL ONE (11:54)
[2017-12-13] MEDS ORDERED: ATROPINE SULFATE 0.1 MG/ML 5ML SYR ONE (11:54)
[2017-12-13] MEDS ORDERED: ONDANSETRON INJ 2 MG/ML 2 ML VIAL IV STA (12:26)
[2017-12-13] MEDS ORDERED: ONDANSETRON INJ 2 MG/ML 2 ML VIAL ONE (12:29)
--- NOTE | 2017-12-13 12:33 | Cardiology Progress Note ---
Cardiology Progress Note Date of Service Dec 13, 2017. Cardiology Progress Note DSE negative for ischemia. Post procedure prior to transport back to room, developed nausea, dry heaving. Administered Zofran 4 mg x 1 with improvement. Plan- tx back to ED hold bed C4, advance diet as tolerated. Will review resting echo, if findings stable, and nausea resolves will consider DC on [employer] medication program.
[2017-12-13 13:00] VITALS: O2SAT 94
[2017-12-13] MEDS ORDERED: PERFLUTREN LIPID MICROSPHERE (DEFINITY) IV ONE (13:30)
[2017-12-13] MEDS: PREGABALIN 50 MG CAP PO SCH ×2 (14:00→14:37)
--- NOTE | 2017-12-13 14:10 | DOBUTAMINE ECHO ---
*NOTICE TO RECEIVING CONSTITUTION PARTY AGENCY This information is strictly Confidential and protected under [place] law. [place] law prohibits you from making any further disclosure of this information unless further disclosure is expressly permitted by the written consent of the person to whom it pertains or is authorized by law. A general authorization for the release of medical or other information is not sufficient for this purpose. Hospital accepts no responsibility if the information is made available to any other person, INCLUDING THE PATIENT. Interpretation Summary * Name: RESHMA RAGSDALE Study Date: 12/13/2017 09:33 AM BP: 148/69 mmHg * Patient Location: C.EDINP\S\EDINP 1\S\3 HR: 85 * : 1940 (M/d/yy) Gender: Female Height: 65 in * Age: 77 yrs Ethnicity: CA Weight: 275 lb * Ordering Physician: Ruddy Barker * Referring Physician: Self, Referred * Performed by Amanda Dyson RDCS * * Reason For Study: Chest Pain * BSA: 2.3 m2 * -- Conclusions -- * STRESS STUDY: * Normal pharmacologic stress echocardiogram. * No echocardiographic or EKG evidence of myocardial ischemia having achieved heart rate adequate for diagnostic purposes. * No symptoms suggestive of angina were induced. * Atrial fibrillation persisted throughout the study. * RESTING STUDY: * There is mild concentric left ventricular hypertrophy. * The left ventricular ejection Fraction = 55-60%. * The left atrium is mildly dilated. * There is moderate mitral annular calcification. * There is mild mitral regurgitation. * There is trace tricuspid regurgitation. * Doppler findings do not suggest pulmonary hypertension. * Aortic valve sclerosis mild, without significant aortic valvular stenosis. Procedure Details * DOBUTAMINE ECHO, CPT#[id number] * ECHO DOPPLER, CPT #[id number] * ECHO COLOR FLOW, CPT #[id number] * A contrast injection of Definity was performed to improve assessment of LV function. * Contrast was injected into an intravenous site in the right arm. * One vial of Definity ultrasound contrast was diluted in normal saline to a total volume of 10 ml. A total of '6' ml of solution was administered during imaging. * Lot # [id number] of Definity utilized for procedure. * Expiration date . * The attending nurse who injected the contrast agent was Clau Scott RN. * ECHOEX, CPT #[id number] Left Ventricle * The left ventricle is normal in size. * There is mild concentric left ventricular hypertrophy. * Ejection Fraction = 55-60%. * Left ventricular systolic function is normal. * Resting wall motion: Normal. Stress wall motion: Appropriate increase in Left ventricular systolic function and decrease in cavity size. No stress induced segmental wall motion abnormalities. Right Ventricle * The right ventricle is normal in size and function. Atria * The left atrium is mildly dilated. * Right atrial size is normal. * No ASD detected; PFO is not assessed. Mitral Valve * There is moderate mitral annular calcification. * There is no mitral valve stenosis. * There is mild mitral regurgitation. Tricuspid Valve * The tricuspid valve is normal. * There is no tricuspid stenosis. * There is trace tricuspid regurgitation. * Doppler findings do not suggest pulmonary hypertension. Aortic Valve * The aortic valve is trileaflet. * Aortic valve sclerosis mild, without significant aortic valvular stenosis. * No hemodynamically significant valvular aortic stenosis. * No aortic regurgitation is present. Pulmonic Valve * The pulmonic valve is not well visualized. Great Vessels * The aortic root is normal size. Pericardium * There is no pericardial effusion. Stress Parameters * The baseline EKG reveals atrial fibrillation at [address] segments are normal on the resting EKG. * The stress EKG response was negative for ischemia. Atrial fibrillation persisted throughout the study. * The stress portion of this study was personally supervised by the undersigned interpreting physician. * Rest heart rate was '85' BPM. * Rest blood pressure was '148/69' * Maximum heart rate achieved was 151 bpm. * Maximum heart rate was 104 % of maximum age-predicted heart rate. * Maximum blood pressure was '159/75' * Maximum Dobutamine infusion rate was '40' mcg/kg/min. * A total of 0.25 mg of intravenous Atropine was used to supplement Dobutamine for heart rate response. * Dobutamine infusion was terminated due to achieving target heart rate * A total of 15 mg of IV Metoprolol was administered to reverse Dobutamine-induced tachycardia. Left Ventricular Diastolic Function * Left ventricular diastolic dysfunction is abnormal based on left atrial enlargement, but is not graded due to the presence of underlying atrial fibrillation. MMode 2D Measurements and Calculations IVSd 1.6 cm IVSs 1.8 cm LVIDd 4.1 cm LVIDs 2.8 cm LVPWd 1.5 cm LVPWs 1.8 cm IVS/LVPW 1.1 FS 31.9 % EDV(Teich) 75.1 ml ESV(Teich) 29.7 ml EF(Teich) 60.4 % EDV(cubed) 69.9 ml ESV(cubed) 22.1 ml EF(cubed) 68.4 % % IVS thick 15.6 % % LVPW thick 22.3 % LV mass(C)d 249.7 grams LV mass(C)dI 110.3 grams/m\S\2 LV mass(C)s 204.1 grams LV mass(C)sI 90.1 grams/m\S\2 SV(Teich) 45.4 ml SI(Teich) 20.0 ml/m\S\2 SV(cubed) 47.8 ml SI(cubed) 21.1 ml/m\S\2 Ao root diam 3.0 cm Ao root area 6.9 cm\S\2 ACS 1.2 cm LA dimension 3.6 cm LA/Ao 1.2 LVAd ap4 26.2 cm\S\2 LVLd ap4 7.4 cm EDV(MOD-sp4) 76.5 ml EDV(sp4-el) 78.5 ml LVAs ap4 16.2 cm\S\2 LVLs ap4 7.1 cm ESV(MOD-sp4) 33.6 ml ESV(sp4-el) 31.5 ml EF(MOD-sp4) 56.1 % EF(sp4-el) 59.9 % LVAd ap2 22.1 cm\S\2 LVLd ap2 7.7 cm EDV(MOD-sp2) 52.6 ml EDV(sp2-el) 54.0 ml LVAs ap2 10.8 cm\S\2 LVLs ap2 6.4 cm ESV(MOD-sp2) 16.8 ml ESV(sp2-el) 15.5 ml EF(MOD-sp2) 68.0 % EF(sp2-el) 71.3 % LVLd %diff 3.0 % EDV(MOD-bp) 64.7 ml LVLs %diff -10.53 % ESV(MOD-bp) 24.9 ml EF(MOD-bp) 61.4 % SV(MOD-sp4) 43.0 ml SI(MOD-sp4) 19.0 ml/m\S\2 SV(MOD-sp2) 35.8 ml SI(MOD-sp2) 15.8 ml/m\S\2 SV(MOD-bp) 39.7 ml SI(MOD-bp) 17.5 ml/m\S\2 SV(sp4-el) 47.0 ml SI(sp4-el) 20.8 ml/m\S\2 SV(sp2-el) 38.5 ml SI(sp2-el) 17.0 ml/m\S\2 Doppler Measurements and Calculations MV E max di 129.4 cm/sec MV dec time 0.34 sec Ao V2 max 110.4 cm/sec Ao max PG 4.9 mmHg Ao max PG (full) 1.6 mmHg LV V1 max PG 3.3 mmHg LV V1 max 91.2 cm/sec PA V2 max 70.2 cm/sec PA max PG 2.0 mmHg TR max di 247.9 cm/sec
--- NOTE | 2017-12-13 15:26 | Cardiology Progress Note ---
Cardiology Progress Note Date of Service Dec 13, 2017. Cardiology Progress Note Pt reassessed in ED C4. Nausea is resolved. Tolerated lunch and has received her am diltiazem tablet, which was held for the stress test. Denies chest pain. Resting and Stress Echo test were OK. Remains in rate controlled AF. Stable from my standpoint for [place] to [facility] on her prior chronic medications
[2017-12-13] MEDS ORDERED: GLUCOSE 40% GEL 15 GM TUBE PO PRN (15:30)
[2017-12-13] MEDS ORDERED: DEXTROSE 50% 50 ML SYR IV PRN (15:30)
[2017-12-13] MEDS ORDERED: GLUCOSE 10 TABS/TUBE PO PRN (15:30)
[2017-12-13] MEDS ORDERED: GLUCAGON FOR INJ 1 MG VIAL SQ PRN (15:30)
[2017-12-13 15:46] VITALS: BP 130/104; PULSE 110; TEMP 37; O2SAT 94
--- NOTE | 2017-12-13 15:58 | Progress Note ---
Medicine Progress Note Date & Time of Visit: Dec 13, 2017 at 15:38. Subjective Pt was seen and examined Sitting in chair with no distress Pt said that she feels fine She said that she does not have any chest chest pressure She tolerated diet She denies any palpitation, dizziness and sob Objective Last 8 Hrs Date Time Temp Pulse Resp B/P (MAP) Pulse Ox O2 Delivery O2 Flow Rate FiO2 12/13/17 13:00 94 Room Air 12/13/17 08:00 96 Nasal Cannula 2.0 Physical Exam: General- No acute distress Head- atraumatic Eyes- PERRL, EOMI ENT- oropharynx clear Neck- supple, no JVD Lungs- clear to auscultation Heart- regular rhythm Abdomen- normal bowel sounds Extremities- no calf tenderness Neuro- alert, oriented x 3; PERRL, EOMI Laboratory Results: Last 24 Hours Test 12/12/17 18:40 12/12/17 21:47 12/12/17 23:48 12/13/17 06:19 White Blood Count 12.52 K/uL 11.17 K/uL Red Blood Count 4.46 M/uL 4.47 M/uL Hemoglobin 15.0 g/dL 14.9 g/dL Hematocrit 43.4 % 44.1 % Mean Corpuscular Volume 97.3 fL 98.7 fL Mean Corpuscular Hemoglobin 33.6 pg 33.3 pg Mean Corpuscular Hemoglobin Concent 34.6 g/dl 33.8 g/dl Platelet Count 262 K/uL 221 K/uL Mean Platelet Volume 10.5 fL 10.5 fL Neutrophils (%) (Auto) 70.6 % 53.4 % Lymphocytes (%) (Auto) 23.8 % 36.9 % Monocytes (%) (Auto) 5.4 % 8.2 % Eosinophils (%) (Auto) 0.0 % 1.1 % Basophils (%) (Auto) 0.0 % 0.1 % Neutrophils # (Auto) 8.84 K/uL 5.97 K/uL Lymphocytes # (Auto) 2.98 K/uL 4.12 K/uL Monocytes # (Auto) 0.67 K/uL 0.92 K/uL Eosinophils # (Auto) 0.00 K/uL 0.12 K/uL Basophils # (Auto) 0.00 K/uL 0.01 K/uL RDW Standard Deviation 55.6 fL 56.2 fL RDW Coefficient of Variation 15.6 % 15.6 % Immature Granulocyte % (Auto) 0.2 % 0.3 % Immature Granulocyte # (Auto) 0.03 K/uL 0.03 K/uL Prothrombin Time 30.0 SECONDS 24.8 SECONDS Prothromb Time International Ratio 2.9 2.4 Sodium Level 138 mmol/L Potassium Level 3.8 mmol/L Chloride Level 101 mmol/L Carbon Dioxide Level 30 mmol/L Anion Gap 7.0 mmol/L Blood Urea Nitrogen 25 mg/dl Creatinine 0.99 mg/dl Est Creatinine Clear Calc Drug Dose 65.3 ml/min Estimated GFR () 64.2 Estimated GFR (Non- 55.4 BUN/Creatinine Ratio 25.0 Random Glucose 146 mg/dl Calcium Level 8.7 mg/dl Total Bilirubin 0.4 mg/dl Direct Bilirubin 0.1 mg/dl Aspartate Amino Transf (AST/SGOT) 12 U/L Alanine Aminotransferase (ALT/SGPT) 21 U/L Alkaline Phosphatase 107 U/L Total Creatine Kinase 22 U/L Creatine Kinase MB 0.8 ng/ml Creatine Kinase MB Ratio 3.6 Troponin I < 0.015 ng/ml < 0.015 ng/ml < 0.015 ng/ml Total Protein 6.7 gm/dl Albumin 3.0 gm/dl Lipase 47 U/L Procalcitonin < 0.05 ng/ml Lactic Acid Level 2.0 mmol/L Date/Time Source Procedure Growth Status 12/12/17 21:47 Blood Blood Culture Pending Received 12/12/17 21:38 Blood Blood Culture Pending Received Assessment & Plan Chest pain R/o ACS Troponinx3 negative EKG showed no ischemic changes Dobutamine Stress test done was negative for ischemia No chest pain currently Continue aspirin and metoprolol case discussed with cardiology, and ok to d/c from cardiac standpoint. Atrial fibrillation Rate controlled. Continue cardizem and metoprolol On Coumadin with INR therapeutic 2.4 Chronic pain on narcotic Stable Recent bronchitis Continue outpatient prednisone Hypothyroidism TSH wnl Continue levothyroxine DVT px on coumadin INR 2.4 CODE STATUS FULL CODE Disposition Will discharge to [facility] today Current Inpatient Medications: Current Inpatient Medications Medications (Trade) Dose Ordered Sig/[place] Route Start Time Stop Time Status Last Admin Dose Admin Miscellaneous (Iv Fluids Completed) 1 ea PRN PRN N/A 12/12/17 23:15 12/12/18 23:14 Potassium Chloride/Sodium Chloride 1,000 ml @ 50 mls/hr Q20H IV 12/13/17 02:30 01/11/18 23:31 12/13/17 03:51 50 MLS/HR Acetaminophen (Tylenol Tab) 650 mg Q4H PRN PO 12/12/17 23:45 01/11/18 23:44 Nitroglycerin (Nitrostat Tab) 0.4 mg UD PRN SL 12/12/17 23:45 01/11/18 23:44 Aspirin (Ecotrin Tab) 81 mg QAM PO 12/13/17 09:00 01/12/18 08:59 12/13/17 10:50 81 MG Diltiazem HCl (Cardizem Cd Cap) 120 mg DAILY PO 12/13/17 09:00 01/12/18 08:59 12/13/17 13:19 120 MG Docusate Sodium (coLACE CAP) 100 mg BID PO 12/13/17 09:00 01/12/18 08:59 12/13/17 10:55 100 MG Duloxetine HCl (Cymbalta Cap) 60 mg DAILY PO 12/13/17 09:00 01/12/18 08:59 12/13/17 10:50 60 MG Fentanyl (Duragesic Patch) 50 mcg Q72H TD 12/15/17 09:00 12/29/17 08:59 Fexofenadine HCl (Kim Tab) 180 mg DAILY PO 12/13/17 09:00 01/12/18 08:59 12/13/17 10:47 180 MG Salmeterol Xinafoate/ Fluticasone (Advair Diskus 500/50 Inh) 1 puff BID INH 12/13/17 09:00 01/12/18 08:59 12/13/17 10:46 1 PUFF Levothyroxine Sodium (Synthroid Tab) 75 mcg DAILYBB PO 12/13/17 07:00 01/12/18 06:59 12/13/17 10:44 75 MCG Montelukast Sodium (Singulair Tab) 10 mg DAILY PO 12/13/17 09:00 01/12/18 08:59 12/13/17 10:52 10 MG Pantoprazole Sodium (Protonix Tab) 40 mg DAILY PO 12/13/17 09:00 01/12/18 08:59 12/13/17 10:52 40 MG Prednisone (PredniSONE TAB) 20 mg DAILY PO 12/13/17 09:00 12/15/17 09:01 12/13/17 10:51 20 MG Pregabalin (Lyrica Cap) 50 mg TID PO 12/13/17 09:00 01/12/18 08:59 12/13/17 14:37 50 MG Senna (Senokot Tab) 8.6 mg BID PO 12/13/17 09:00 01/12/18 08:59 12/13/17 10:51 8.6 MG Sucralfate (Carafate Tab) 1 gm ACHS PO 12/13/17 07:00 01/12/18 06:59 12/13/17 13:19 1 GM Tramadol HCl (Ultram Tab) 50 mg Q4H PRN PO 12/12/17 23:45 01/11/18 23:44 Zolpidem Tartrate (Ambien Tab) 2.5 mg HS PO 12/13/17 21:00 01/12/18 20:59 Buspirone HCl (Buspar Tab) 10 mg BID PO 12/13/17 09:00 01/12/18 08:59 12/13/17 10:48 10 MG Ferrous Sulfate (Feosol Tab) 325 mg BID PO 12/13/17 09:00 01/12/18 08:59 12/13/17 10:51 325 MG Polyethylene (Miralax Powder Packet) 17 gm Q2D@0900 PO 12/13/17 09:00 01/12/18 08:59 Prochlorperazine Edisylate 5 mg/ Syringe 5 ml @ 5 mls/min Q6H PRN IV 12/12/17 23:45 01/11/18 23:44 Hydromorphone HCl (Dilaudid Inj) 0.5 mg Q3H PRN IV 12/12/17 23:45 12/26/17 23:44 Sodium Biphosphate/ Sodium Phosphate (Fleet Enema) 132 ml DAILY PRN WI 12/12/17 23:45 01/11/18 23:44 Miscellaneous (Fentanyl Patch Remove & Waste) 1 ea Q3D@0859 N/A 12/15/17 08:59 01/14/18 08:58 Miscellaneous Information (Check Fentanyl Patch Placement) 1 ea QS N/A 12/13/17 08:00 01/12/18 07:59 12/13/17 08:00 1 EA Metoprolol Tartrate (Lopressor Tab) 12.5 mg BID PO 12/13/17 21:00 01/12/18 08:59 Insulin Aspart (novoLOG ASPART) SLIDING SCALE If C... ACHS SC 12/13/17 16:00 01/12/18 15:59 Glucose (Glucose 40% Gel) 15-30 GRAMS 15 GRAMS... UD PRN PO 12/13/17 15:30 01/12/18 15:29 Glucose (Glucose Chew Tab) 4-8 Tablets 4 Tabl... UD PRN PO 12/13/17 15:30 01/12/18 15:29 Dextrose (Dextrose 50% 50ML Syringe) 25-50ML OF 50% DW IV FOR... UD PRN IV 12/13/17 15:30 01/12/18 15:29 Glucagon (Glucagon Inj) 1 mg UD PRN SQ 12/13/17 15:30 01/12/18 15:29
[2017-12-13] MEDS ORDERED: INSULIN ASPART 100 UNITS/ML 3 ML PEN SC SCH (16:00)
--- NOTE | 2017-12-13 16:05 | Discharge Instructions ---
Discharge Instructions Date of Service Dec 13, 2017. Admission Reason for Admission: Chest Pain Discharge Discharge Diagnosis / Problem: Chest pain, Afib Discharge Goals Goal(s): Decrease discomfort, Improve function, Improve disease control Activity Recommendations Activity Limitations: resume your previous activity (as tolerated) . Instructions / Follow-Up Instructions / Follow-Up Discharge to [facility] Follow up with your primary care provider Dr. Lemus Follow up with your cardiology Continue monitor PT/INR ( INR 2.4 today) Fall precaution Current Hospital Diet Patient's current hospital diet: AHA Diet (Heart Healthy) Discharge Diet Recommended Diet: AHA Diet (Heart Healthy) Pending Studies Studies pending at discharge: no Medical Emergencies . Who to Call and When: Medical Emergencies: If at any time you feel your situation is an emergency, please call 911 immediately. . Non-Emergent Contact Non-Emergency issues call your: Primary Care Provider Call Non-Emergent contact if: you have any medication questions . . "Provider Documentation" section prepared by Yee Varela. .
[2017-12-13] MEDS ORDERED: ZOLPIDEM TARTRATE 5 MG TAB PO SCH (21:00)
--- NOTE | 2017-12-15 08:13 | Discharge Summary ---
Discharge Summary Date of Service Dec 15, 2017. Discharge Summary Admission Date: Dec 12, 2017 at 22:15 Discharge Date: Dec 13, 2017 Discharge Disposition: [facility] facility Principal Diagnosis: Chest pain Secondary Diagnoses/Problems: Atrial fibrillation Chronic pain on narcotic Recent bronchitis Hypothyroidism Procedures: Dobutamine Stress ECHO Interpretation Summary * Name: RESHMA RAGSDALE Study Date: 12/13/2017 09:33 AM BP: 148/69 mmHg * Patient Location: [facility]3 HR: 85 * : 1940 (M/d/yyyy) Gender: Female Height: 65 in * Age: 77 yrs Ethnicity: CA Weight: 275 lb * Ordering Physician: Ruddy Barker * Referring Physician: Self, Referred * Performed by Amanda Dyson RDCS * * Reason For Study: Chest Pain * BSA: 2.3 m2 * -- Conclusions -- * STRESS STUDY: * Normal pharmacologic stress echocardiogram. * No echocardiographic or EKG evidence of myocardial ischemia having achieved heart rate adequate for diagnostic purposes. * No symptoms suggestive of angina were induced. * Atrial fibrillation persisted throughout the study. * RESTING STUDY: * There is mild concentric left ventricular hypertrophy. * The left ventricular ejection Fraction = 55-60%. * The left atrium is mildly dilated. * There is moderate mitral annular calcification. * There is mild mitral regurgitation. * There is trace tricuspid regurgitation. * Doppler findings do not suggest pulmonary hypertension. * Aortic valve sclerosis mild, without significant aortic valvular stenosis. Procedure Details * DOBUTAMINE ECHO, CPT#[id number] * ECHO DOPPLER, CPT #[id number] * ECHO COLOR FLOW, CPT #[id number] * A contrast injection of Definity was performed to improve assessment of LV function. * Contrast was injected into an intravenous site in the right arm. * One vial of Definity ultrasound contrast was diluted in normal saline to a total volume of 10 ml. A total of '6' ml of solution was administered during imaging. * Lot # [id number] of Definity utilized for procedure. * Expiration date . * The attending nurse who injected the contrast agent was Clau Scott RN. * ECHOEX, CPT #[id number] Left Ventricle * The left ventricle is normal in size. * There is mild concentric left ventricular hypertrophy. * Ejection Fraction = 55-60%. * Left ventricular systolic function is normal. * Resting wall motion: Normal. Stress wall motion: Appropriate increase in Left ventricular systolic function and decrease in cavity size. No stress induced segmental wall motion abnormalities. Right Ventricle * The right ventricle is normal in size and function. Atria * The left atrium is mildly dilated. * Right atrial size is normal. * No ASD detected; PFO is not assessed. Mitral Valve * There is moderate mitral annular calcification. * There is no mitral valve stenosis. * There is mild mitral regurgitation. Tricuspid Valve * The tricuspid valve is normal. * There is no tricuspid stenosis. * There is trace tricuspid regurgitation. * Doppler findings do not suggest pulmonary hypertension. Aortic Valve * The aortic valve is trileaflet. * Aortic valve sclerosis mild, without significant aortic valvular stenosis. * No hemodynamically significant valvular aortic stenosis. * No aortic regurgitation is present. Pulmonic Valve * The pulmonic valve is not well visualized. Great Vessels * The aortic root is normal size. Pericardium * There is no pericardial effusion. Stress Parameters * The baseline EKG reveals atrial fibrillation at [address] segments are normal on the resting EKG. * The stress EKG response was negative for ischemia. Atrial fibrillation persisted throughout the study. * The stress portion of this study was personally supervised by the undersigned interpreting physician. * Rest heart rate was '85' BPM. * Rest blood pressure was '148/69' * Maximum heart rate achieved was 151 bpm. * Maximum heart rate was 104 % of maximum age-predicted heart rate. * Maximum blood pressure was '159/75' * Maximum Dobutamine infusion rate was '40' mcg/kg/min. * A total of 0.25 mg of intravenous Atropine was used to supplement Dobutamine for heart rate response. * Dobutamine infusion was terminated due to achieving target heart rate * A total of 15 mg of IV Metoprolol was administered to reverse Dobutamine- induced tachycardia. Left Ventricular Diastolic Function * Left ventricular diastolic dysfunction is abnormal based on left atrial enlargement, but is not graded due to the presence of underlying atrial fibrillation. Medication Reconciliation Continued Medications: Acetaminophen (Tylenol) 325 Mg Tab 650 MG PO Q4H PRN for Pain or Fever Aspirin (Aspirin 81 Low Dose) 81 Mg Chw 1 TAB PO DAILY Bisacodyl (Bisac-Evac) 10 Mg Supp 1 SUPP NV UD PRN for PRN Buspirone Hcl (Buspirone Hcl) 10 Mg Tab 10 MG PO BID Carboxymethylcellulose Sodium (Lubricant Eye Drops) 0.5 % Dino 1 DROP OPB BID PRN for DRY EYES Diltiazem Hcl Coated Beads (Diltiazem Hcl Er) 120 Mg Cap 120 MG PO DAILY Docusate Sodium (Colace) 100 Mg Cap 1 CAP PO BID Duloxetine HCl (Duloxetine HCl) 60 Mg Cap 60 MG PO DAILY Fentanyl (Duragesic) 50 Mcg Tdsy 50 MCG TD CQ72HR Ferrous Sulfate (Ferrous Sulfate) 325 Mg Tab 1 TAB PO BID Fexofenadine Hcl (Kim Allergy) 180 Mg Tab 1 TAB PO DAILY for 14 Days, #14 TAB 2 Refills Fluticasone Prop/Salmeterol (Advair Diskus 500/50 60 Dose) 1 Ea Aerp 1 PUFF INH BID Furosemide (Lasix) 40 Mg Tab 40 MG PO DAILY Furosemide (Lasix) 20 Mg Tab 20 MG PO DAILY Glucosamine-Chondroitin (Glucosamine & Chondroitin 500-400 mg) 1 Cap Cap 1 CAP PO TID Guaifenesin (Siltussin Sa) 100 Mg/5 Ml Syp 10 ML PO Q4 PRN for Cough Ipratropium-Albuterol (Duoneb) 3 Ml Nebu 1 TREATMENT INH Q4H PRN for SOB/Wheezing, INHA Levothyroxine Sodium (Synthroid) 75 Mcg Tab 75 MCG PO DAILY Magnesium Hydroxide (Milk of Magnesia) 30 Ml Susp 30 ML PO UD PRN for PRN Magnesium Oxide (Mg Supplement (Magnesium Oxide) 400 Mg Tab 400 MG PO BID Metoprolol Tartrate (Lopressor) (Lopressor) 25 Mg Tab 0.5 TAB PO BID Miconazole (Miconazole) 1 Pow Pow 1 APPLN TOP TID Montelukast Sodium (Singulair) 10 Mg Tab 1 TAB PO DAILY Pantoprazole (Protonix) 40 Mg Tab 40 MG PO DAILY Polyethylene Glycol 3350 (Bulk (Polyethylene Glycol 3350) 1 Pow Pow 17 GM PO Q2D Potassium Chloride Microencaps (Potassium Chloride Cr) 20 Meq Tab 1 TAB PO QAM Prednisone (Prednisone) 20 Mg Tab 20 MG PO 5 DAYS Pregabalin (Lyrica) 50 Mg Cap 50 MG PO TID Sennosides (Senna Lax) 8.6 Mg Tab 1 TAB PO BID Sodium Phosphate/Biphosphate (Fleet Enema) Shirin 1 EA NV UD PRN for PRN Sucralfate (Carafate) 1 Gm Tab 1 TAB PO ACHS Tramadol (Ultram) 50 Mg Tab 1 TAB PO TID Tramadol (Ultram) 50 Mg Tab 50 MG PO Q4H PRN for Pain Warfarin Sod (Jantoven) 3 Mg Tab 3 MG PO 4XWK SUN,TU, THUR, SAT Warfarin Sod (Warfarin Sodium) 3 Mg Tab 1.5 MG PO 3XWK TAKE MON, WED, FRI Zolpidem Tartrate (Ambien) 5 Mg Tab 0.5 TAB PO HS Admission Information HPI (per Admitting provider): 77-year-old female who presents to the ER chest pain. Patient currently resides at [facility]. She reports that she went for a walk this morning and then developed lower midsternal/epigastric discomfort with associated diaphoresis. She reports she went back to her room and lay down symptoms resolved. She got up to take another walk this afternoon and had recurrence of her symptoms. She was given sublingual nitroglycerin and Maalox without any relief in the discomfort. She rates the pain as 7/10 at its worst. She describes the pain as pressure-like and feeling as though she would need to belch. No radiation of the pain into the jaw, neck, shoulder,or arm. She denies palpitations. No lightheadedness, dizziness, or syncopal events. She reports she has been feeling well recently. She has chronic lower extremity edema which is unchanged. No orthopnea. No abdominal pain, nausea, vomiting, or diarrhea. She denies fever chills. No urinary symptoms. In the ER, patient was given an additional nitroglycerin. She reports the chest pain did not resolve until approximately 2 hours after the nitroglycerin. Initial troponin is negative and EKG does not show any acute ST changes. Other labs are unremarkable. Vital signs are stable. Physical Exam (per Admitting): General Appearance: WD/WN, no apparent distress, + obese Head: normocephalic, atraumatic Eyes: normal inspection, EOMI, sclerae normal ENT: hearing grossly normal, + pertinent finding (Mucous membranes moist) Neck: supple, no JVD, trachea midline Respiratory/Chest: no respiratory distress, + decreased breath sounds Cardiovascular: normal peripheral pulses, + irregularly irregular (Rate controlled), + pertinent finding (+1-+2 edema BLLE) Abdomen/GI: normal bowel sounds, non tender, soft, no organomegaly Extremities/Musculoskelatal: normal inspection, no calf tenderness, normal capillary refill Neurologic/Psych: no motor/sensory deficits, alert, normal mood/affect, oriented x 3 Skin: normal color, warm/dry Hospital Course Chest pain R/o ACS Troponinx3 negative EKG showed no ischemic changes Dobutamine Stress test done was negative for ischemia No chest pain currently Continue aspirin and metoprolol case discussed with cardiology, and ok to d/c from cardiac standpoint. Atrial fibrillation Rate controlled. Continue cardizem and metoprolol On Coumadin with INR therapeutic 2.4 Chronic pain on narcotic Stable Recent bronchitis Continue outpatient prednisone Hypothyroidism TSH wnl Continue levothyroxine DVT px on coumadin INR 2.4 CODE STATUS FULL CODE Disposition Will discharge to [facility] today Total time spent on discharge = 35 minutes This includes examination of the patient, discharge planning, medication reconciliation, and communication with other providers. Discharge Instructions Discharge Instructions Date of Service Dec 13, 2017. Admission Reason for Admission: Chest Pain Discharge Discharge Diagnosis / Problem: Chest pain, Afib Discharge Goals Goal(s): Decrease discomfort, Improve function, Improve disease control Activity Recommendations Activity Limitations: resume your previous activity (as tolerated) . Instructions / Follow-Up Instructions / Follow-Up Discharge to [facility] Follow up with your primary care provider Dr. Lemus Follow up with your cardiology Continue monitor PT/INR ( INR 2.4 today) Fall precaution Current Hospital Diet Patient's current hospital diet: AHA Diet (Heart Healthy) Discharge Diet Recommended Diet: AHA Diet (Heart Healthy) Pending Studies Studies pending at discharge: no Medical Emergencies . Who to Call and When: Medical Emergencies: If at any time you feel your situation is an emergency, please call 911 immediately. . Non-Emergent Contact Non-Emergency issues call your: Primary Care Provider Call Non-Emergent contact if: you have any medication questions . . "Provider Documentation" section prepared by Yee Varela. . Additional Copies To Viry Lemus M.D.
[2017-12-15] MEDS ORDERED: FENTANYL PATCH REMOVE & WASTE SCH (08:59)
[2017-12-15] MEDS ORDERED: FENTANYL 50 MCG/HR TDSY TD SCH (09:00)
== END 2017-12-13 16:59 ==
LOC: EDBD 17:42 → C.EDC 17:44 → C.EDINP 22:15
PROVIDERS: ADMIT Internal Medicine; ATTEND Internal Medicine
DX: R07.2 Precordial pain (principal); I10 Essential (primary) hypertension; I48.91 Unspecified atrial fibrillation; I73.9 Peripheral vascular disease, unspecified; E11.9 Type 2 diabetes mellitus without complications; E03.9 Hypothyroidism, unspecified; G89.29 Other chronic pain; R26.2 Difficulty in walking, not elsewhere classified; F41.1 Generalized anxiety disorder; M19.90 Unspecified osteoarthritis, unspecified site; J45.909 Unspecified asthma, uncomplicated; E66.9 Obesity, unspecified; Z86.711 Personal history of pulmonary embolism; Z82.49 Family history of ischemic heart disease and other diseases of the circulatory system; Z79.82 Long term (current) use of aspirin; Z88.5 Allergy status to narcotic agent; Z88.2 Allergy status to sulfonamides; Z88.8 Allergy status to other drugs, medicaments and biological substances; Z86.14 Personal history of Methicillin resistant Staphylococcus aureus infection

== ENCOUNTER 2017-12-24 10:35 | Inpatient (IN) | payer OTHER ==
[~2017-12-24] VITALS: Ht 167.6 cm; Wt 127.1 kg
[~2017-12-24 10:35] MED LIST changes: -ADVIN10/60 INH; +ADVIN50/60 INH; +CMD/3 PO; +CYM60 PO; +DILT-213 PO; -DILT120C99 PO; -DULO60CA44 PO; +FEXO1TAB49 PO; +GLUC1CAP33 PO; -GUAI100S18 PO; +GUAI100S75 PO; -OXGN; +PRED20TA PO
[2017-12-24] MEDS ORDERED: ONDANSETRON INJ 2 MG/ML 2 ML VIAL IV STA (11:13)
[2017-12-24] MEDS ORDERED: SODIUM CHLORIDE 0.9% 1000ML 1,000 ML IV STA (11:13)
[2017-12-24] MEDS ORDERED: FENTANYL CITRATE INJ 50 MCG/1 ML 2 ML VIAL IV ONE (11:15)
--- NOTE | 2017-12-24 12:13 | DIAGNOSTIC IMAGING REPORT ---
CHEST ONE VIEW PORTABLE CLINICAL HISTORY: Upper abdominal and epigastric pain. COMPARISON STUDY: Chest radiograph December 12, 2017. FINDINGS: Severe osteoarthritis of both glenohumeral joints is again noted. There is no pneumothorax or pleural effusion. No consolidation is identified. Old right-sided rib fractures are present. Mild cardiomegaly is unchanged. There is no evidence for pulmonary edema. There is no consolidation. Right hilar prominence remains unchanged. IMPRESSION: No acute cardiopulmonary findings. Electronically signed by: Refugio Del Cid M.D. 12/24/2017 12:12 PM Dictated Date/Time: 12/24/2017 12:11 PM
[2017-12-24 12:22] LABS: BASO % 0.2 %; BASO ABS # 0.02 K/uL (0-0.2); EOS % 0.9 %; EOS ABS # 0.11 K/uL (0-0.5); HEMATOCRIT 41.1 % (37-47); HEMOGLOBIN 13.9 g/dL (12.0-16.0); IG# 0.03 K/uL (0.00-0.02); LYMPH % 17.6 %; LYMPH ABS # 2.05 K/uL (1.2-3.4); MEAN CELL VOLUME 97.6 fL (80-100); MEAN CORPUSCULAR HGB CONC 33.8 g/dl (32-36); MEAN PLATELET VOLUME 10.1 fL (7.4-10.4); MONO % 8.6 %; NEUT % 72.4 %; NEUT ABS # 8.47 K/uL (1.4-6.5); PLATELET COUNT 230 K/uL (130-400); RED CELL DISTRIBUTION WIDTH CV 15.1 % (11.5-14.5); RED CELL DISTRIBUTION WIDTH SD 54.6 fL (36.4-46.3); WHITE BLOOD COUNT 11.68 K/uL (4.8-10.8)
[2017-12-24 12:35] LABS: ALBUMIN 2.9 gm/dl (3.4-5.0); CALCIUM 8.8 mg/dl (8.5-10.1); CREATININE 0.76 mg/dl (0.60-1.20); POTASSIUM 3.4 mmol/L (3.5-5.1)
[2017-12-24 12:38] LABS: TOTAL PROTEIN 7.2 gm/dl (6.4-8.2)
--- NOTE | 2017-12-24 13:51 | DIAGNOSTIC IMAGING REPORT ---
GALLBLADDER-ABD LIMITED CLINICAL HISTORY: ABDOMINAL PAIN/GI pain. Nausea. TECHNIQUE: Ultrasound COMPARISON STUDY: None FINDINGS: Gallstones and sludge within the gallbladder lumen. Moderate gallbladder distention at 10 cm. Gallbladder wall 3 mm. No pericholecystic fluid. Common bile duct 4 mm. Fatty infiltration of liver. Pancreas poorly seen. Right kidney is negative for hydronephrosis. IMPRESSION: Gallstones and sludge within the gallbladder lumen. Moderate gallbladder distention. Normal caliber bile ducts. Fatty infiltration of liver. The above report was generated using voice recognition software. It may contain grammatical, syntax or spelling errors. Electronically signed by: Brain An M.D. 12/24/2017 1:50 PM Dictated Date/Time: 12/24/2017 1:49 PM
[2017-12-24] MEDS ORDERED: CIPROFLOXACIN 400MG / 200ML D5W IV STA (15:10)
[2017-12-24] MEDS ORDERED: METRONIDAZOLE 500MG / 100ML NSS IV STA (15:10)
--- NOTE | 2017-12-24 15:36 | Surgery Consultation ---
Consultation Date of Consultation: Dec 24, 2017. Attending Physician: Dr. Beavers Reason for Consultation: RUQ abdominal pain, distended gallbladder History of Present Illness Margareth is a pleasant 77-year-old female presented to the emergency room today with complaint of right upper quadrant abdominal pain that started last evening after dinner. She describes the pain as a sharp stabbing pain with radiation to the midline and left upper side. Sharp stabbing pain will last for a few hours and then become a dull ache. Denies of ever having this pain before. Associated nausea and dry heaves with no vomiting. Has slight fever this morning after waking up. No chills no night sweats. Margareth was just recently hospitalized on the of this month with complaint of chest pressure. She had a full cardiac workup including stress test which showed no ischemia. She was discharged back to [facility] on her home cardiac medications. She states this upper abdominal pain is different from her chest pressure episode. No history of gallbladder problems in the past. No known family history of gallbladder issues. She states she has had some burning on urination in the past week. Denies of any urinary frequency or urgency. Denies of any chest pain, shortness of breath, difficulty breathing, changes in bowel habits, constipation, diarrhea, rectal bleeding, or blood in stools. States she takes iron daily and notices black stools. Labs showed slightly elevated white count at 11,000. CMP showing normal total bilirubin and LFTs. Abdominal ultrasound showing distended gallbladder at 10 cm with gall stones and gallstone sludge. Common bile duct measuring 4 mm. No gallbladder wall thickening or pericholecystic fluid. Past Medical/Surgical History Medical Problems: (1) Abdominal wall cellulitis Status: Acute (2) Abdominal wall cellulitis Status: Acute (3) Anticoagulated on Coumadin Status: Acute (4) Fever Status: Acute (5) Left leg cellulitis Status: Acute (6) Precordial chest pain Status: Acute (7) Tachycardia Status: Acute Family History Diabetes mellitus FATHER Hypertension FATHER Social History Smoking Status: Never Smoker Drug Use: none Marital Status: single Housing Status: lives alone, assisted living Occupation Status: retired Allergies Coded Allergies: Morphine (Verified Adverse Reaction, Intermediate, vomiting, 12/24/17) Oxycodone (Verified Adverse Reaction, Intermediate, vomit blood, 12/24/17) Propoxyphene (Verified Adverse Reaction, Intermediate, abd vomit blood, ) Tramadol (Verified Adverse Reaction, Intermediate, vomiting, 12/24/17) Codeine (Verified Adverse Reaction, Mild, vomiting, 12/24/17) Olmesartan (Verified Adverse Reaction, Mild, GI SYMPTOMS, 12/24/17) Sulfa Antibiotics (Verified Adverse Reaction, Mild, GI SYMPTOMS, 12/24/17) Sulfamethoxazole w/Trimethoprim (Verified Adverse Reaction, Mild, GI SYMPTOMS, 12/24/17) Carisoprodol (Verified Adverse Reaction, Unknown, GI SYMPTOMS, 12/24/17) Home Medications Scheduled Aspirin (Aspirin 81 Low Dose), 1 TAB PO DAILY Buspirone Hcl (Buspirone Hcl), 10 MG PO BID Diltiazem Hcl Coated Beads (Diltiazem Hcl Er), 120 MG PO DAILY Docusate Sodium (Colace), 1 CAP PO BID Duloxetine HCl (Duloxetine HCl), 60 MG PO DAILY Fentanyl (Duragesic), 50 MCG TD CQ72HR Ferrous Sulfate (Ferrous Sulfate), 1 TAB PO BID Fexofenadine Hcl (Kim Allergy), 1 TAB PO DAILY Fluticasone Prop/Salmeterol (Advair Diskus 500/50 60 Dose), 1 PUFF INH BID Furosemide (Lasix), 40 MG PO DAILY Furosemide (Lasix), 20 MG PO DAILY Glucosamine-Chondroitin (Glucosamine & Chondroitin 500-400 mg), 1 CAP PO TID Levothyroxine Sodium (Synthroid), 75 MCG PO DAILY Magnesium Oxide (Mg Supplement (Magnesium Oxide), 400 MG PO BID Metoprolol Tartrate (Lopressor) (Lopressor), 0.5 TAB PO BID Miconazole (Miconazole), 1 APPLN TOP TID Montelukast Sodium (Singulair), 1 TAB PO DAILY Pantoprazole (Protonix), 40 MG PO DAILY Polyethylene Glycol 3350 (Bulk (Polyethylene Glycol 3350), 17 GM PO Q2D Potassium Chloride Microencaps (Potassium Chloride Cr), 1 TAB PO QAM Pregabalin (Lyrica), 50 MG PO TID Sennosides (Senna Lax), 1 TAB PO BID Sucralfate (Carafate), 1 TAB PO ACHS Tramadol (Ultram), 1 TAB PO TID Warfarin Sod (Jantoven), 3 MG PO 4XWK Warfarin Sod (Warfarin Sodium), 4.5 MG PO 3XWK Zolpidem Tartrate (Ambien), 0.5 TAB PO HS Scheduled PRN Acetaminophen (Tylenol), 650 MG PO Q4H PRN for Pain or Fever Bisacodyl (Bisac-Evac), [address] UD PRN for PRN Carboxymethylcellulose Sodium (Lubricant Eye Drops), 1 DROP OPB BID PRN for DRY EYES Guaifenesin (Siltussin Sa), 10 ML PO Q4 PRN for Cough Ipratropium-Albuterol (Duoneb), 1 TREATMENT INH Q4H PRN for SOB/Wheezing Magnesium Hydroxide (Milk of Magnesia), 30 ML PO UD PRN for PRN Sodium Phosphate/Biphosphate (Fleet Enema), [address] UD PRN for PRN Review of Systems Constitutional: + fever, No chills, No sweats Respiratory: No cough, No shortness of breath Cardiovascular: No chest pain Abdomen: + pain, + nausea, No vomiting, No diarrhea, No constipation, No GI bleeding Genitourinary - Female: + dysuria, No urinary frequency, No urinary urgency, No urinary incontinence, No hematuria Hematologic / Lymphatic: No abnormal bleeding/bruising Integumentary: No rash Physical Exam Date Time Temp Pulse Resp B/P (MAP) Pulse Ox O2 Delivery O2 Flow Rate FiO2 12/24/17 14:06 90 20 176/93 96 Nasal Cannula 2.0 12/24/17 12:13 100 12/24/17 10:44 37.1 96 20 106/102 96 Room Air General Appearance: no apparent distress, + obese Head: normocephalic, atraumatic Eyes: sclerae normal ENT: hearing grossly normal Neck: trachea midline Respiratory/Chest: normal breath sounds, no respiratory distress, no accessory muscle use, + crackles, + wheezing (expiratory), + pertinent finding (nasal canula present) Cardiovascular: no murmur, + irregularly irregular Abdomen/GI: soft, no organomegaly, no pulsatile mass, + tenderness (RUQ on mild palpation, positive Alvarez's sign, + guarding) Back: normal inspection Extremities/Musculoskelatal: normal inspection, no pedal edema Neurologic/Psych: alert, normal mood/affect, oriented x 3 Skin: normal color, warm/dry, no rash Laboratory Results Last 24 Hours Test 12/24/17 11:35 12/24/17 11:50 12/24/17 11:57 Urine Color BROWN Urine Appearance SL CLOUDY Urine pH >= 9.0 Urine Specific [place] 1.010 Urine Protein 2+ Urine Glucose (UA) NEG Urine Ketones NEG Urine Occult Blood 3+ Urine Nitrite NEG Urine Bilirubin NEG Urine Urobilinogen NEG Urine Leukocyte Esterase LARGE Urine RBC >30 /hpf Urine WBC 10-30 /hpf Urine Epithelial Cells 0-5 /lpf Urine Triple Phosphate Crystals PRESENT Urine Bacteria 2+ White Blood Count 11.68 K/uL Red Blood Count 4.21 M/uL Hemoglobin 13.9 g/dL Hematocrit 41.1 % Mean Corpuscular Volume 97.6 fL Mean Corpuscular Hemoglobin 33.0 pg Mean Corpuscular Hemoglobin Concent 33.8 g/dl Platelet Count 230 K/uL Mean Platelet Volume 10.1 fL Neutrophils (%) (Auto) 72.4 % Lymphocytes (%) (Auto) 17.6 % Monocytes (%) (Auto) 8.6 % Eosinophils (%) (Auto) 0.9 % Basophils (%) (Auto) 0.2 % Neutrophils # (Auto) 8.47 K/uL Lymphocytes # (Auto) 2.05 K/uL Monocytes # (Auto) 1.00 K/uL Eosinophils # (Auto) 0.11 K/uL Basophils # (Auto) 0.02 K/uL RDW Standard Deviation 54.6 fL RDW Coefficient of Variation 15.1 % Immature Granulocyte % (Auto) 0.3 % Immature Granulocyte # (Auto) 0.03 K/uL Sodium Level 137 mmol/L Potassium Level 3.4 mmol/L Chloride Level 100 mmol/L Carbon Dioxide Level 29 mmol/L Anion Gap 8.0 mmol/L Blood Urea Nitrogen 12 mg/dl Creatinine 0.76 mg/dl Est Creatinine Clear Calc Drug Dose 86.6 ml/min Estimated GFR () 88.3 Estimated GFR (Non- 76.2 BUN/Creatinine Ratio 15.5 Random Glucose 124 mg/dl Calcium Level 8.8 mg/dl Total Bilirubin 0.7 mg/dl Direct Bilirubin 0.2 mg/dl Aspartate Amino Transf (AST/SGOT) 17 U/L Alanine Aminotransferase (ALT/SGPT) 17 U/L Alkaline Phosphatase 110 U/L Total Protein 7.2 gm/dl Albumin 2.9 gm/dl Lipase 41 U/L Bedside Lactic Acid Venous 1.85 mmol/L Bedside Troponin I < 0.030 ng/ml Assessment & Plan 77 year-old obese female with multiple comorbidities presented to emergency department with RUQ abdominal pain. Ultrasound showing cholelithiasis and gallbladder sludge and distended gb at 10 cm. No pericholecystic fluid or wall thickening, CBD within normal limits. LFTS within normal limits. Examination shows RUQ tenderness, guarding, and positive Alvarez's. Early cholecystitis vs biliary colic - vitals stable - mild leukocytosis Plan: Admit patient under medicine service given comorbidities. Will need to hold Coumadin and bridge depending on INR. Start IV Cipro and Flagyl Recommend IV fluids, IV pain management as needed, IV Zofran as needed, may have clear liquids but if any pain revert to NPO. Repeat am labs including cbc and cmp Dr. Beavers to evaluate patient later today Discussed with Dr. Beavers who agrees with above. INR 5.2, does not need bridging Plan for laparoscopic cholecystectomy 12/27 and INR 1.5 or lower.
[2017-12-24] MEDS ORDERED: ACETAMINOPHEN 325 MG TAB PO PRN (16:00)
[2017-12-24] MEDS ORDERED: ONDANSETRON INJ 2 MG/ML 2 ML VIAL IV PRN (16:00)
[2017-12-24 16:16] LABS: INR 5.2 (0.9-1.1)
[2017-12-24] MEDS ORDERED: ALBUT/IPRATROP 3MG/0.5MG NEB 3 ML VIAL INH PRN (16:45)
[2017-12-24] MEDS ORDERED: PHYTONADIONE 5 MG TAB PO STA (17:19)
[2017-12-24] MEDS ORDERED: POTASSIUM CHLORIDE 10 MEQ TABCR PO ONE (17:30)
[2017-12-24] MEDS ORDERED: DILTIAZEM HCL 120 MG CAPCR PO ONE (17:30)
[2017-12-24 18:10] VITALS: BP 137/85; PULSE 94; TEMP 37.3; O2SAT 93
[2017-12-24] MEDS: SODIUM CHLORIDE 0.9% 1000ML 1,000 ML IV SCH (18:53)
[2017-12-24] MEDS ORDERED: MoRPHine SULFATE 4 MG/ML 1 ML CARP\\VIAL IV PRN (19:15)
--- NOTE | 2017-12-24 19:29 | History and Physical ---
History & Physical Date & Time of Service: Dec 24, 2017 ~ 15:30 Chief Complaint: RUQ abdominal pain Primary Care Physician: Viry Lemus M.D. History of Present Illness 77-year-old female who presents to the ER with a chief complaint of right upper quadrant abdominal pain. Patient was recently admitted to [facility] 12/12 through for noncardiac chest pain. Patient underwent stress test that was negative for ischemia. Patient reports her symptoms began last night after she had dinner. 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 She describes the pain as severe, rating it as a 9/10 at its worst. Pain persisted throughout the night. She had associated nausea and dry heaves however denies vomiting. She reports the pain radiated over to the midepigastric and to the left side of her abdomen at times. Patient denies fever and chills. No chest pain or shortness of breath. She has chronic lower extremity edema and left lower extremity redness which is unchanged from baseline. She denies lightheadedness, dizziness , diaphoresis, and syncopal events. She reports dysuria for the past 5 days. In the ED, patient is afebrile and WBC 11.6 K. Vital signs are stable. RUQ ultrasound shows cholelithiasis with gallbladder distention. U/A suggest urinary tract infection. Patient was given Cipro, Flagyl, IV fentanyl, IV Zofran, and IVF. She was evaluated by general surgery in the ED. Past Medical/Surgical History Medical Problems: (1) Ambulatory dysfunction Status: Chronic (2) Arthritis Status: Chronic (3) Asthma Status: Chronic (4) Atrial fibrillation Status: Chronic (5) Chronic back pain Status: Chronic (6) Chronic gastritis Status: Chronic (7) Chronic pain Status: Chronic (8) Diastolic CHF Status: Chronic (9) DJD (degenerative joint disease), multiple sites Status: Chronic (10) DM type 2 (diabetes mellitus, type 2) Status: Chronic (11) Generalized anxiety disorder Status: Chronic (12) Hypertension Status: Chronic (13) Hypothyroidism Status: Chronic (14) Muscle spasm Status: Chronic (15) Obesity (BMI 30-39.9) Status: Chronic (16) Pulmonary embolism Status: Chronic (17) Stenosis of right carotid artery Status: Chronic Surgical Problems: (1) H/O hernia repair Status: Chronic Family History Diabetes mellitus FATHER Hypertension FATHER Social History Smoking Status: Never Smoker Alcohol Use: none Housing status: [facility] Allergies Coded Allergies: Morphine (Verified Adverse Reaction, Intermediate, vomiting, 12/24/17) Oxycodone (Verified Adverse Reaction, Intermediate, vomit blood, 12/24/17) Propoxyphene (Verified Adverse Reaction, Intermediate, abd vomit blood, ) Tramadol (Verified Adverse Reaction, Intermediate, vomiting, 12/24/17) Codeine (Verified Adverse Reaction, Mild, vomiting, 12/24/17) Olmesartan (Verified Adverse Reaction, Mild, GI SYMPTOMS, 12/24/17) Sulfa Antibiotics (Verified Adverse Reaction, Mild, GI SYMPTOMS, 12/24/17) Sulfamethoxazole w/Trimethoprim (Verified Adverse Reaction, Mild, GI SYMPTOMS, 12/24/17) Carisoprodol (Verified Adverse Reaction, Unknown, GI SYMPTOMS, 12/24/17) Home Medications Scheduled Aspirin (Aspirin 81 Low Dose), 1 TAB PO DAILY Buspirone Hcl (Buspirone Hcl), 10 MG PO BID Diltiazem Hcl Coated Beads (Diltiazem Hcl Er), 120 MG PO DAILY Docusate Sodium (Colace), 1 CAP PO BID Duloxetine HCl (Duloxetine HCl), 60 MG PO DAILY Fentanyl (Duragesic), 50 MCG TD [id number] Ferrous Sulfate (Ferrous Sulfate), 1 TAB PO BID Fexofenadine Hcl (Kim Allergy), 1 TAB PO DAILY Fluticasone Prop/Salmeterol (Advair Diskus 500/50 60 Dose), 1 PUFF INH BID Furosemide (Lasix), 40 MG PO DAILY Furosemide (Lasix), 20 MG PO DAILY Glucosamine-Chondroitin (Glucosamine & Chondroitin 500-400 mg), 1 CAP PO TID Levothyroxine Sodium (Synthroid), 75 MCG PO DAILY Magnesium Oxide (Mg Supplement (Magnesium Oxide), 400 MG PO BID Metoprolol Tartrate (Lopressor) (Lopressor), 0.5 TAB PO BID Miconazole (Miconazole), 1 APPLN TOP TID Montelukast Sodium (Singulair), 1 TAB PO DAILY Pantoprazole (Protonix), 40 MG PO DAILY Polyethylene Glycol 3350 (Bulk (Polyethylene Glycol 3350), 17 GM PO Q2D Potassium Chloride Microencaps (Potassium Chloride Cr), 1 TAB PO QAM Pregabalin (Lyrica), 50 MG PO TID Sennosides (Senna Lax), 1 TAB PO BID Sucralfate (Carafate), 1 TAB PO ACHS Tramadol (Ultram), 1 TAB PO TID Warfarin Sod (Jantoven), 3 MG PO 4XWK Warfarin Sod (Warfarin Sodium), 4.5 MG PO 3XWK Zolpidem Tartrate (Ambien), 0.5 TAB PO HS Scheduled PRN Acetaminophen (Tylenol), 650 MG PO Q4H PRN for Pain or Fever Bisacodyl (Bisac-Evac), [address] UD PRN for PRN Carboxymethylcellulose Sodium (Lubricant Eye Drops), 1 DROP OPB BID PRN for DRY EYES Guaifenesin (Siltussin Sa), 10 ML PO Q4 PRN for Cough Ipratropium-Albuterol (Duoneb), 1 TREATMENT INH Q4H PRN for SOB/Wheezing Magnesium Hydroxide (Milk of Magnesia), 30 ML PO UD PRN for PRN Sodium Phosphate/Biphosphate (Fleet Enema), [address] UD PRN for PRN Review of Systems ROS per HPI, all other systems reviewed and negative Physical Exam Vital Signs Date Time Temp Pulse Resp B/P (MAP) Pulse Ox O2 Delivery O2 Flow Rate FiO2 12/24/17 17:40 88 20 94 12/24/17 16:28 87 18 111/75 98 Room Air 12/24/17 14:06 90 20 176/93 96 Nasal Cannula 2.0 12/24/17 12:13 100 12/24/17 10:44 37.1 96 20 106/102 96 Room Air General Appearance: WD/WN, no apparent distress, + obese Head: normocephalic, atraumatic Eyes: normal inspection, EOMI, sclerae normal ENT: hearing grossly normal, + pertinent finding (Mucous membranes moist) Neck: supple, no JVD, trachea midline Respiratory/Chest: lungs clear, normal breath sounds, no respiratory distress Cardiovascular: normal peripheral pulses, + irregularly irregular (Rate controlled), + pertinent finding (+2 edema BL LE) Abdomen/GI: normal bowel sounds, soft, no organomegaly, + tenderness (RUQ) Extremities/Musculoskelatal: normal inspection, no calf tenderness, normal capillary refill Neurologic/Psych: no motor/sensory deficits, alert, normal mood/affect, oriented x 3 Skin: normal color, warm/dry, + pertinent finding (LLE erythema, chronic per patient) Diagnostics Laboratory Results Results Past 24 Hours Test 12/24/17 11:35 12/24/17 11:50 12/24/17 11:57 Range/Units Urine Color BROWN Urine Appearance SL CLOUDY CLEAR Urine pH >= 9.0 4.5-7.5 Urine Specific [place] 1.010 1.000-1.030 Urine Protein 2+ NEG Urine Glucose (UA) NEG NEG Urine Ketones NEG NEG Urine Occult Blood 3+ NEG Urine Nitrite NEG NEG Urine Bilirubin NEG NEG Urine Urobilinogen NEG NEG Urine Leukocyte Esterase LARGE NEG Urine RBC >30 0-4 /hpf Urine WBC 10-30 0-5 /hpf Urine Epithelial Cells 0-5 0-5 /lpf Urine Triple Phosphate Crystals PRESENT NONE PRSENT Urine Bacteria 2+ NEG White Blood Count 11.68 4.8-10.8 K/uL Red Blood Count 4.21 4.2-5.4 M/uL Hemoglobin 13.9 12.0-16.0 g/dL Hematocrit 41.1 37-47 % Mean Corpuscular Volume 97.6 80-100 fL Mean Corpuscular Hemoglobin 33.0 25-34 pg Mean Corpuscular Hemoglobin Concent 33.8 32-36 g/dl Platelet Count 230 130-400 K/uL Mean Platelet Volume 10.1 7.4-10.4 fL Neutrophils (%) (Auto) 72.4 % Lymphocytes (%) (Auto) 17.6 % Monocytes (%) (Auto) 8.6 % Eosinophils (%) (Auto) 0.9 % Basophils (%) (Auto) 0.2 % Neutrophils # (Auto) 8.47 1.4-6.5 K/uL Lymphocytes # (Auto) 2.05 1.2-3.4 K/uL Monocytes # (Auto) 1.00 0.11-0.59 K/uL Eosinophils # (Auto) 0.11 0-0.5 K/uL Basophils # (Auto) 0.02 0-0.2 K/uL RDW Standard Deviation 54.6 36.4-46.3 fL RDW Coefficient of Variation 15.1 11.5-14.5 % Immature Granulocyte % (Auto) 0.3 % Immature Granulocyte # (Auto) 0.03 0.00-0.02 K/uL Prothrombin Time 53.1 9.0-12.0 SECONDS Prothromb Time International Ratio 5.2 0.9-1.1 Sodium Level 137 136-145 mmol/L Potassium Level 3.4 3.5-5.1 mmol/L Chloride Level 100 98-107 mmol/L Carbon Dioxide Level 29 21-32 mmol/L Anion Gap 8.0 3-11 mmol/L Blood Urea Nitrogen 12 7-18 mg/dl Creatinine 0.76 0.60-1.20 mg/dl Est Creatinine Clear Calc Drug Dose 86.6 ml/min Estimated GFR () 88.3 Estimated GFR (Non- 76.2 BUN/Creatinine Ratio 15.5 10-20 Random Glucose 124 70-99 mg/dl Calcium Level 8.8 8.5-10.1 mg/dl Magnesium Level 2.1 1.8-2.4 mg/dl Total Bilirubin 0.7 0.2-1 mg/dl Direct Bilirubin 0.2 0-0.2 mg/dl Aspartate Amino Transf (AST/SGOT) 17 15-37 U/L Alanine Aminotransferase (ALT/SGPT) 17 12-78 U/L Alkaline Phosphatase 110 45-117 U/L Total Protein 7.2 6.4-8.2 gm/dl Albumin 2.9 3.4-5.0 gm/dl Lipase 41 73-393 U/L Bedside Lactic Acid Venous 1.85 0.90-1.70 mmol/L Bedside Troponin I < 0.030 0-0.045 ng/ml Microbiology Results 12/24/17 Blood Culture, Received Pending 12/24/17 Blood Culture, Received Pending 12/24/17 Urine Culture, Received Pending Diagnostic Radiology GALLBLADDER US IMPRESSION: Gallstones and sludge within the gallbladder lumen. Moderate gallbladder distention. Normal caliber bile ducts. Fatty infiltration of liver. CXR IMPRESSION: No acute cardiopulmonary findings. Impression Assessment and Plan RUQ ABDOMINAL PAIN EARLY CHOLECYSTITIS VERSUS BILIARY COLIC -Admit to [facility] [place] -Patient presenting with right upper quadrant abdominal pain and nausea the began last evening; in the ED patient found to have cholelithiasis with moderately distended gallbladder -WBC 11.6 K, afebrile; no signs of sepsis -S/P Cipro and Flagyl in the ED, will continue with -Clear liquids, n.p.o. if patient develops abdominal pain -Case discussed with general surgery, planning a laparoscopic cholecystectomy on 12/27/17 -Noted normal LFTs and lipase -Patient really recently admitted for noncardiac chest pain, underwent stress test that was negative for ischemia -EKG currently without acute ST changes, chest x-ray clear -Patient anticoagulated on Coumadin for history of atrial fibrillation and pulmonary embolism; INR currently 5.2, will give vitamin K 2.5 mg p.o. 1; no role for preoperative bridging, relatively low CHADS2 score (HTN, age), pulmonary embolism diagnosed 2014; resumption of anticoagulation postoperatively when okay by general surgery UTI -UA suggest UTI, patient reports dysuria -On Cipro as above -Adjust per culture results HISTORY OF ATRIAL FIBRILLATION -Rate controlled on diltiazem and metoprolol, will continue both -Anticoagulation management as above HISTORY OF PULMONARY EMBOLISM -Anticoagulation management as above ASTHMA -Stable, no signs of exacerbation -Continue home inhalers HYPOTHYROIDISM -Continue levothyroxine CHRONIC DIASTOLIC CHF -Appears euvolemic -We will hold diuretics while giving IVF CHRONIC PAIN -Continue fentanyl patch and routine tramadol ANXIETY -Continue buspirone and duloxetine DVT PROPHYLAXIS -SCDs when INR less than 2.0 DISPOSITION -In my clinical judgment this beneficiary meets acute admission criteria, established by [facility], that includes being hospitalized through two midnights. ADDENDUM: This is a 77 year old female with a PMH of a. fib on long-term anticoagulation, hx. of chronic diastolic CHF, asthma, hypothyroidism - present with RUQ pain. Found to have likely early cholecystitis. Was here at [facility] earlier in November 2017 for chest pain; stress test was performed and negative. Currently, pain is controlled. Previous surgery: panniculectomy Plan: give 2.5mg of vitamin K for supratherapeutic INR; no need to bridge, hold Coumadin, plan for surgery on , 12/27. will give Cipro + Flagyl for possible infected gallbladder. Cipro will cover UTI as well. cultures pending. Resuscitation Status VTE Prophylaxis Will order VTE Prophylaxis: Yes
[2017-12-24] MEDS ORDERED: ALBUTEROL 0.083% NEBU SOLN 3 ML VIAL INH SCH (21:00)
[2017-12-24] MEDS ORDERED: BUDESONIDE 0.5 MG/2 ML VIAL (PULMICORT) INH SCH (21:00)
--- NOTE | 2017-12-24 21:00 | EMERGENCY ROOM VISIT NOTE ---
ED Visit Note First contact with patient: 11:00 Chief Complaint: Abdominal pain. History of Present Illness: Ms. Crane is a 77 year-old white female complaining was brought into the ED via ambulance of right upper quadrant abdominal pain. Historically patient reports gastritis and abdominal hernia repair. Additionally unique-shunt reports she recently had a CAT scan that showed gallstones; I could not verify this. Patient was discharged from this hospital on December 13 after being evaluated for an coronary artery disease after she had chest pain that was relieved with nitroglycerin. Her stress test was negative. Patient reports a last evening about 8:00, over 12 hours ago, she reports she had a gradual onset of right upper quadrant abdominal pain. The pain is constant since it started and she reports it started a few hours after dinner. She describes her pain as a sharp sensation. She reports it starts at the lateral border of the right upper quadrant then extends into the epigastrium and then across the abdomen and into the left upper quadrant. She rates her discomfort 7/10. Her pain worsens with palpation. She reports last night she was given tramadol and had mild relief of her discomfort. Associated with her pain she reports she has been nauseated but has not vomited; nursing facility which she arrived from documented a 99.1F oral temperature. Patient denies chills, sweats, skin eruptions, skin color changes, upper respiratory tract symptoms, shortness of breath, chest pain, diarrhea, constipation, rectal bleeding, black/tarry stools, urinary symptoms, hematuria, back/flank pain. Review of Systems: As noted above in history of present illness. All body systems were reviewed and found to be negative as noted above. Past Medical History: (1) Ambulatory dysfunction (2) Arthritis (3) Asthma (4) Atrial fibrillation (5) Chronic back pain (6) Chronic gastritis (7) Chronic pain (8) Diastolic CHF (9) DJD (degenerative joint disease), multiple sites (10) DM type 2 (diabetes mellitus, type 2) (11) Generalized anxiety disorder (12) Hypertension (13) Hypothyroidism (14) Muscle spasm (15) Obesity (BMI 30-39.9) (16) Pulmonary embolism (17) Sepsis (18) Stenosis of right carotid artery Surgical Problems: (1) H/O hernia repair Current Medications: Medications Dose Route/Sig Max Daily Dose Days Date Category Dose Instructions Miconazole 1 Pow 1 Appln TOP TID 12/12/17 Reported Diltiazem Hcl Er (Diltiazem Hcl Coated Beads) 120 Mg Cap 120 Mg PO DAILY 12/12/17 Reported Siltussin Sa (Guaifenesin) 100 Mg/5 Ml Syp 10 Ml PO Q4 PRN 12/12/17 Reported Duloxetine HCl 60 Mg Cap 60 Mg PO DAILY 12/12/17 Reported Warfarin Sodium (Warfarin Sod) 3 Mg Tab 4.5 Mg PO 3XWK 12/12/17 Reported TAKE MON, WED, FRI Kim Allergy (Fexofenadine Hcl) 180 Mg Tab 1 Tab PO DAILY 14 12/12/17 Reported Advair Diskus 500/50 60 Dose (Fluticasone Prop/Salmeterol) 1 Ea Aerp 1 Puff INH BID 12/12/17 Reported Lubricant Eye Drops (Carboxymethylcellulose Sodium) 0.5 % Dino 1 Drop OPB BID PRN 08/14/17 Reported Milk of Magnesia (Magnesium Hydroxide) 30 Ml Susp 30 Ml PO UD PRN 08/14/17 Reported Fleet Enema (Sodium Phosphate/Biphosphate) Shirin 1 Ea [place] UD PRN 08/14/17 Reported Bisac-Evac (Bisacodyl) 10 Mg Supp 1 Supp OH UD PRN 08/14/17 Reported Ultram (Tramadol HCl) 50 Mg Tab 1 Tab PO TID 08/14/17 Reported Potassium Chloride Cr (Potassium Chloride Microencaps) 20 Meq Tab 1 Tab PO QAM 08/14/17 Reported Senna Lax (Sennosides) 8.6 Mg Tab 1 Tab PO BID 08/14/17 Reported Polyethylene Glycol 3350 (Polyethylene Glycol 3350 (Bulk) 1 Pow Pow 17 Gm PO Q2D 08/14/17 Reported Lyrica (Pregabalin) 50 Mg Cap 50 Mg PO TID 08/14/17 Reported Lasix (Furosemide) 20 Mg Tab 20 Mg PO DAILY 08/14/17 Reported Ferrous Sulfate 325 Mg Tab 1 Tab PO BID 08/14/17 Reported Duragesic (Fentanyl) 50 Mcg Tdsy 50 Mcg TD [id number] 08/14/17 Reported Colace (Docusate Sodium) 100 Mg Cap 1 Cap PO BID 08/14/17 Reported Lopressor (Metoprolol Tartrate) 25 Mg Tab 0.5 Tab PO BID 08/14/17 Reported Buspirone Hcl 10 Mg Tab 10 Mg PO BID 08/14/17 Reported Ambien (Zolpidem Tartrate) 5 Mg Tab 0.5 Tab PO HS 03/01/16 Reported Duoneb (Ipratropium-Albuterol) 3 Ml Nebu 1 Treatment INH Q4H PRN 02/12/16 Reported Jantoven (Warfarin Sodium) 3 Mg Tab 3 Mg PO 4XWK 02/12/16 Reported SUN,TUES, THUR, SAT Carafate (Sucralfate) 1 Gm Tab 1 Tab PO ACHS 02/12/16 Reported Singulair (Montelukast Sodium) 10 Mg Tab 1 Tab PO DAILY 02/12/16 Reported Glucosamine & Chondroitin 500-400 mg (Glucosamine-Chondroitin) 1 Cap Cap 1 Cap PO TID 09/24/15 Reported Synthroid (Levothyroxine Sodium) 75 Mcg Tab 75 Mcg PO DAILY 08/02/15 Reported Tylenol (Acetaminophen) 325 Mg Tab 650 Mg PO Q4H PRN 08/02/15 Reported Magnesium Oxide (Magnesium Oxide (Mg Supplement) 400 Mg Tab 400 Mg PO BID 08/02/15 Reported Lasix (Furosemide) 40 Mg Tab 40 Mg PO DAILY 08/02/15 Reported Aspirin 81 Low Dose (Aspirin) 81 Mg Chw 1 Tab PO DAILY 08/02/15 Reported Protonix (Pantoprazole Sodium) 40 Mg Tab 40 Mg PO DAILY 08/02/15 Reported Allergies to Medications: Carisoprodol, codeine, morphine, oxycodone, propoxyphene, sulfa, tramadol, olmesartan. Social History: Patient is not employed; she is currently a resident at [facility]; she denies tobacco and alcohol use. Physical Examination: Vital Signs: Date Time Temp Pulse Resp B/P (MAP) Pulse Ox O2 Delivery O2 Flow Rate FiO2 12/24/17 14:06 90 20 176/93 96 Nasal Cannula 2.0 12/24/17 12:13 100 12/24/17 10:44 37.1 96 20 106/102 96 Room Air GENERAL: 77-year-old female in mild distress due to pain, nontoxic-appearing, afebrile and hemodynamically stable. NEUROLOGICAL: Awake, alert and oriented to person, place and time. Answering questions appropriately and following commands. Good hand eye coordination. SKIN: Warm, dry and pink. Lower Extremities: Bilateral lower extremity has venous stasis changes and the right extremity has a large contusion over the anterior lower leg; patient reports that is new and remembers tripping into "something" but does not remember what HEENT: Atraumatic and normocephalic. PERRLA. Sclera white and conjunctiva pink. Oral cavity moist and pink. Pharynx is nonerythematous or edematous. Speech normal. No lymphadenopathy. Trachea midline. No jugular venous distention. BACK: No tenderness over the bony spine. No CVA tenderness. THORAX: Lungs sounds are clear to auscultation with slight decrease in air movement on the right. Equal bilaterally with symmetrical chest wall. No wheezing, rales or rhonchi. No crepitus, tenderness, subcutaneous air or deformities noted. HEART: Regular rate and rhythm. No gallops, rubs or murmurs are appreciated. ABDOMEN: Obese and soft with moderate tenderness throughout the upper quadrant. Decreased bowel sounds in all quadrants. No guarding, rigidity or organomegaly. EXTREMITIES: Moves all extremities well on command and with purpose. All distal neurovascular statuses are intact and equal bilaterally. ED Course: Patient is assessed as noted above. Laboratory Testing: Test 12/24/17 11:35 12/24/17 11:50 12/24/17 11:57 Range/Units Urine Color BROWN Urine Appearance SL CLOUDY CLEAR Urine pH >= 9.0 4.5-7.5 Urine Specific [place] 1.010 1.000-1.030 Urine Protein 2+ NEG Urine Glucose (UA) NEG NEG Urine Ketones NEG NEG Urine Occult Blood 3+ NEG Urine Nitrite NEG NEG Urine Bilirubin NEG NEG Urine Urobilinogen NEG NEG Urine Leukocyte Esterase LARGE NEG Urine RBC >30 0-4 /hpf Urine WBC 10-30 0-5 /hpf Urine Epithelial Cells 0-5 0-5 /lpf Urine Triple Phosphate Crystals PRESENT NONE PRSENT Urine Bacteria 2+ NEG White Blood Count 11.68 4.8-10.8 K/uL Red Blood Count 4.21 4.2-5.4 M/uL Hemoglobin 13.9 12.0-16.0 g/dL Hematocrit 41.1 37-47 % Mean Corpuscular Volume 97.6 80-100 fL Mean Corpuscular Hemoglobin 33.0 25-34 pg Mean Corpuscular Hemoglobin Concent 33.8 32-36 g/dl Platelet Count 230 130-400 K/uL Mean Platelet Volume 10.1 7.4-10.4 fL Neutrophils (%) (Auto) 72.4 % Lymphocytes (%) (Auto) 17.6 % Monocytes (%) (Auto) 8.6 % Eosinophils (%) (Auto) 0.9 % Basophils (%) (Auto) 0.2 % Neutrophils # (Auto) 8.47 1.4-6.5 K/uL Lymphocytes # (Auto) 2.05 1.2-3.4 K/uL Monocytes # (Auto) 1.00 0.11-0.59 K/uL Eosinophils # (Auto) 0.11 0-0.5 K/uL Basophils # (Auto) 0.02 0-0.2 K/uL RDW Standard Deviation 54.6 36.4-46.3 fL RDW Coefficient of Variation 15.1 11.5-14.5 % Immature Granulocyte % (Auto) 0.3 % Immature Granulocyte # (Auto) 0.03 0.00-0.02 K/uL Prothrombin Time 53.1 9.0-12.0 SECONDS Prothromb Time International Ratio 5.2 0.9-1.1 Sodium Level 137 136-145 mmol/L Potassium Level 3.4 3.5-5.1 mmol/L Chloride Level 100 98-107 mmol/L Carbon Dioxide Level 29 21-32 mmol/L Anion Gap 8.0 3-11 mmol/L Blood Urea Nitrogen 12 7-18 mg/dl Creatinine 0.76 0.60-1.20 mg/dl Est Creatinine Clear Calc Drug Dose 86.6 ml/min Estimated GFR () 88.3 Estimated GFR (Non- 76.2 BUN/Creatinine Ratio 15.5 10-20 Random Glucose 124 70-99 mg/dl Calcium Level 8.8 8.5-10.1 mg/dl Magnesium Level 2.1 1.8-2.4 mg/dl Total Bilirubin 0.7 0.2-1 mg/dl Direct Bilirubin 0.2 0-0.2 mg/dl Aspartate Amino Transf (AST/SGOT) 17 15-37 U/L Alanine Aminotransferase (ALT/SGPT) 17 12-78 U/L Alkaline Phosphatase 110 45-117 U/L Total Protein 7.2 6.4-8.2 gm/dl Albumin 2.9 3.4-5.0 gm/dl Lipase 41 73-393 U/L Bedside Lactic Acid Venous 1.85 0.90-1.70 mmol/L Bedside Troponin I < 0.030 0-0.045 ng/ml Urine Culture: Pending EKG: Was read by myself and reviewed with Dr. Monaco; shows normal sinus rhythm with a ventricular rate of 98 bpm. Occasional PVC was noted. No acute ischemic changes were noted. This was compared to a previous and sinus rhythm now has now replaced the previous atrial fibrillation. Chest X-Ray: Was read by myself and the radiologist and shows no acute infiltrates, effusions or pneumothorax. Mild cardiomegaly. Radiologist notes severe osteoarthritis of both glenohumeral joints, old right rib fractures, right hilar prominence remains unchanged. Right Upper Quadrant Ultrasound: Was reviewed by myself and read by the radiologist showing gallstones and sludge within the gallbladder lumen with moderate gallbladder distention and normal caliber biliary ducts. Fatty liver infiltrate was noted. Patient was initially hydrated with normal saline and received 25 mcg of fentanyl IV for pain and 4 mg of Zofran IV for nausea. Patient was reassessed multiple times during her stay in the emergency department. Patient was ordered to have 500 mg of Flagyl IV and 400 mg of ciprofloxacin IV. Patient's case was reviewed with Dr. Monaco; we agreed on diagnostic approach, treatment, disposition and plan. Patient's case was consulted with Ms. Anay Becerra PA-C hospitalist, for medical observation/admission. She requested I contact the surgery department for evaluation and recommendations. Patient's case was consulted with Ms. Marietta Felix PA-C, general surgery for surgical evaluation. She requested admission to medical service, antibiotic coverage and stopping her Coumadin with expected surgery in 2-3 days. Patient was educated about today's findings. Clinical Impression: Cholecystitis. Decision-Making: Daisy my differential diagnosis I considered biliary colic, cholecystitis, hepatitis, pancreatitis, right lower lobe pneumonia, acute coronary syndrome and other causes. Disposition and Plan: Patient to be admitted to the hospital by the hospitalist for medical observation/admission. Please see their notes and orders for final disposition and plan.
[2017-12-24 21:22] VITALS: PULSE 99; O2SAT 91
[2017-12-24 22:45] VITALS: BP 118/69; PULSE 94
[2017-12-24] MEDS: TRAMADOL HCL 50 MG TAB PO SCH (22:45)
[2017-12-24] MEDS: FERROUS SULFATE 325 MG TAB PO SCH (22:45)
[2017-12-24] MEDS: METOPROLOL TARTRATE 25 MG TAB PO SCH (22:46)
[2017-12-24] MEDS: SUCRALFATE 1 GM TAB PO SCH (22:46)
[2017-12-24] MEDS: PREGABALIN 50 MG CAP PO SCH (22:48)
[2017-12-24] MEDS: MAGNESIUM OXIDE 400 MG TAB PO SCH (22:48)
[2017-12-24] MEDS: MONTELUKAST SOD 10 MG TAB PO SCH (22:48)
[2017-12-24 22:50] VITALS: BP 118/69; PULSE 116; TEMP 37.1; O2SAT 94
[2017-12-24] MEDS: METRONIDAZOLE / NSS 500 MG in PREMIXED NSS 100 ML IV SCH (23:29)
[2017-12-24] MEDS: CHECK FENTANYL PATCH PLACEMENT SCH (23:29)
[2017-12-24 23:37] VITALS: PULSE 97; O2SAT 92
[2017-12-25] VITALS (8 sets, daily range): BP systolic 94–135; BP diastolic 57–74; PULSE 78–95; TEMP 36.4–37.5; O2SAT 94–98
[2017-12-25] MEDS: LEVOTHYROXINE 75 MCG TAB PO SCH (05:09)
[2017-12-25] MEDS: CIPROFLOXACIN / D5W 400 MG in PREMIXED IN D5W 200 ML IV SCH ×2 (05:09→18:14)
[2017-12-25 06:57] LABS: HEMATOCRIT 35.8 % (37-47); MEAN CELL VOLUME 99.4 fL (80-100); MEAN CORPUSCULAR HEMOGLOBIN 33.3 pg (25-34); MEAN CORPUSCULAR HGB CONC 33.5 g/dl (32-36); MEAN PLATELET VOLUME 10.1 fL (7.4-10.4); PLATELET COUNT 187 K/uL (130-400); RED CELL DISTRIBUTION WIDTH CV 15.5 % (11.5-14.5); RED CELL DISTRIBUTION WIDTH SD 56.5 fL (36.4-46.3); WHITE BLOOD COUNT 7.85 K/uL (4.8-10.8)
[2017-12-25] MEDS: METRONIDAZOLE / NSS 500 MG in PREMIXED NSS 100 ML IV SCH ×3 (06:57→23:11)
[2017-12-25] MEDS: SODIUM CHLORIDE 0.9% 1000ML 1,000 ML IV SCH ×2 (06:57→21:12)
[2017-12-25 07:13] LABS: INR 5.4 (0.9-1.1)
[2017-12-25] MEDS: CHECK FENTANYL PATCH PLACEMENT SCH ×3 (07:17→23:12)
[2017-12-25 07:35] LABS: ALBUMIN 2.2 gm/dl (3.4-5.0); CALCIUM 8.1 mg/dl (8.5-10.1); CREATININE 0.76 mg/dl (0.60-1.20); POTASSIUM 3.6 mmol/L (3.5-5.1)
[2017-12-25 07:40] LABS: TOTAL PROTEIN 5.6 gm/dl (6.4-8.2)
[2017-12-25] MEDS ORDERED: PHYTONADIONE INJ 5 MG in SODIUM CHLORIDE 0.9% 50ML 50 ML IV ONE (07:45)
[2017-12-25] MEDS: SUCRALFATE 1 GM TAB PO SCH ×4 (08:11→21:14)
[2017-12-25] MEDS: FEXOFENADINE HCL 180 MG TAB PO SCH (08:48)
[2017-12-25] MEDS: PANTOprazole SOD 40 MG TAB PO SCH (08:48)
[2017-12-25] MEDS: MAGNESIUM OXIDE 400 MG TAB PO SCH ×2 (08:49→21:17)
[2017-12-25] MEDS: FERROUS SULFATE 325 MG TAB PO SCH ×2 (08:49→18:15)
[2017-12-25] MEDS: POTASSIUM CHLORIDE 20 MEQ TABCR PO SCH (08:49)
[2017-12-25] MEDS: METOPROLOL TARTRATE 25 MG TAB PO SCH ×2 (08:50→21:16)
[2017-12-25] MEDS: ASPIRIN 81 MG ECTAB PO SCH (08:50)
[2017-12-25] MEDS: DILTIAZEM HCL 120 MG CAPCR PO SCH (08:50)
[2017-12-25] MEDS: DULOXETINE HCL 60 MG CAP PO SCH (08:51)
[2017-12-25] MEDS: PREGABALIN 50 MG CAP PO SCH ×3 (08:59→21:12)
[2017-12-25] MEDS: TRAMADOL HCL 50 MG TAB PO SCH ×3 (09:00→21:13)
[2017-12-25] MEDS: FLUTICASONE/SALMETEROL (ADVAIR) 500/50 INH 14 PUFF INH SCH ×2 (10:26→21:13)
--- NOTE | 2017-12-25 11:29 | Surgery Progress Note ---
Surgery Progress Note Date of Service Dec 25, 2017. Subjective Post OP Day: HD # 1 Feeling better, pain still present in right upper abdomen but improved. Currently 6/10 dull pain, not sharp. No nausea or vomiting tolerated clears without abdominal pain No chest pain or shortness of breath passing flatus Objective Vital Signs: Date Time Temp Pulse Resp B/P (MAP) Pulse Ox O2 Delivery O2 Flow Rate FiO2 12/25/17 09:47 36.6 86 18 94/60 (71) 96 Nasal Cannula 2.0 12/25/17 08:46 36.7 93 16 112/70 (84) 97 Nasal Cannula 2.0 12/25/17 08:14 36.4 90 16 111/65 (80) 96 Nasal Cannula 2.0 12/25/17 08:01 36.8 95 18 121/73 (89) 98 Room Air 12/25/17 07:10 Nasal Cannula 2.0 12/24/17 23:37 97 92 Nasal Cannula 2.0 12/24/17 23:37 Nasal Cannula 2.0 12/24/17 22:50 37.1 116 20 118/69 (85) 94 Room Air 12/24/17 22:45 94 118/69 (85) 12/24/17 21:22 99 16 91 Room Air 12/24/17 18:30 Room Air 12/24/17 18:30 Room Air 12/24/17 18:10 37.3 94 18 137/85 (102) 93 Room Air 12/24/17 17:40 88 20 94 12/24/17 16:28 87 18 111/75 98 Room Air 12/24/17 14:06 90 20 176/93 96 Nasal Cannula 2.0 12/24/17 12:13 100 General Appearance: WD/WN, no apparent distress, + obese Head: normocephalic, atraumatic Neck: trachea midline Respiratory/Chest: no respiratory distress, no accessory muscle use, + crackles , + pertinent finding (nasal canula present) Abdomen: normal bowel sounds, non distended, soft, no organomegaly, no pulsatile mass, + tenderness (RUQ on deep palpation, improved compared to yesterday, + guarding no peritonitis or rigidity) Laboratory Results: Results Past 24 Hours Test 12/24/17 11:35 12/24/17 11:50 12/24/17 11:57 12/25/17 06:04 Range/Units Urine Color BROWN Urine Appearance SL CLOUDY CLEAR Urine pH >= 9.0 4.5-7.5 Urine Specific [place] 1.010 1.000-1.030 Urine Protein 2+ NEG Urine Glucose (UA) NEG NEG Urine Ketones NEG NEG Urine Occult Blood 3+ NEG Urine Nitrite NEG NEG Urine Bilirubin NEG NEG Urine Urobilinogen NEG NEG Urine Leukocyte Esterase LARGE NEG Urine RBC >30 0-4 /hpf Urine WBC 10-30 0-5 /hpf Urine Epithelial Cells 0-5 0-5 /lpf Urine Triple Phosphate Crystals PRESENT NONE PRSENT Urine Bacteria 2+ NEG White Blood Count 11.68 7.85 4.8-10.8 K/uL Red Blood Count 4.21 3.60 4.2-5.4 M/uL Hemoglobin 13.9 12.0 12.0-16.0 g/dL Hematocrit 41.1 35.8 37-47 % Mean Corpuscular Volume 97.6 99.4 80-100 fL Mean Corpuscular Hemoglobin 33.0 33.3 25-34 pg Mean Corpuscular Hemoglobin Concent 33.8 33.5 32-36 g/dl Platelet Count 230 187 130-400 K/uL Mean Platelet Volume 10.1 10.1 7.4-10.4 fL Neutrophils (%) (Auto) 72.4 % Lymphocytes (%) (Auto) 17.6 % Monocytes (%) (Auto) 8.6 % Eosinophils (%) (Auto) 0.9 % Basophils (%) (Auto) 0.2 % Neutrophils # (Auto) 8.47 1.4-6.5 K/uL Lymphocytes # (Auto) 2.05 1.2-3.4 K/uL Monocytes # (Auto) 1.00 0.11-0.59 K/uL Eosinophils # (Auto) 0.11 0-0.5 K/uL Basophils # (Auto) 0.02 0-0.2 K/uL RDW Standard Deviation 54.6 56.5 36.4-46.3 fL RDW Coefficient of Variation 15.1 15.5 11.5-14.5 % Immature Granulocyte % (Auto) 0.3 % Immature Granulocyte # (Auto) 0.03 0.00-0.02 K/uL Prothrombin Time 53.1 54.7 9.0-12.0 SECONDS Prothromb Time International Ratio 5.2 5.4 0.9-1.1 Sodium Level 137 140 136-145 mmol/L Potassium Level 3.4 3.6 3.5-5.1 mmol/L Chloride Level 100 105 98-107 mmol/L Carbon Dioxide Level 29 30 21-32 mmol/L Anion Gap 8.0 5.0 3-11 mmol/L Blood Urea Nitrogen 12 11 7-18 mg/dl Creatinine 0.76 0.76 0.60-1.20 mg/dl Est Creatinine Clear Calc Drug Dose 86.6 86.6 ml/min Estimated GFR () 88.3 88.3 Estimated GFR (Non- 76.2 76.2 BUN/Creatinine Ratio 15.5 14.9 10-20 Random Glucose 124 89 70-99 mg/dl Calcium Level 8.8 8.1 8.5-10.1 mg/dl Magnesium Level 2.1 1.8-2.4 mg/dl Total Bilirubin 0.7 0.7 0.2-1 mg/dl Direct Bilirubin 0.2 0-0.2 mg/dl Aspartate Amino Transf (AST/SGOT) 17 10 15-37 U/L Alanine Aminotransferase (ALT/SGPT) 17 13 12-78 U/L Alkaline Phosphatase 110 85 45-117 U/L Total Protein 7.2 5.6 6.4-8.2 gm/dl Albumin 2.9 2.2 3.4-5.0 gm/dl Lipase 41 73-393 U/L Bedside Lactic Acid Venous 1.85 0.90-1.70 mmol/L Bedside Troponin I < 0.030 0-0.045 ng/ml Globulin 3.4 2.5-4.0 gm/dl Albumin/Globulin Ratio 0.6 0.9-2 Microbiology Results 12/24/17 Blood Culture, Received Pending 12/24/17 Blood Culture, Received Pending 12/24/17 Urine Culture - Preliminary, Resulted Proteus Species Assessment & Plan Cholelithiasis with Gallbladder distention, possible early acute cholecystitis -afebrile, no leukocytosis - LFTS within normal limits - Abdominal pain improved but shaft tender in RUQ on examination Supratherapeutic INR -today 5.4, given Oral vitamin K this morning UTI Plan: Continue clear liquids NPO after midnight Sunday Continue IV antibiotics for cholecystitis/UTI Check INR daily, would like INR 1.5 or less for cholecystectomy, plan for cholecystectomy at 11 am. Encourage OOB to chair and ambulation continue current medical management Dr. Beavers has seen and examined patient, agrees with above
--- NOTE | 2017-12-25 21:08 | Progress Note ---
Medicine Progress Note Date & Time of Visit: Dec 25, 2017 at 17:50 . Subjective Admitted with cholecystitis. RUQ pain improved. No nausea or vomiting. No diarrhea. No fever. No chest pain. No cough or shortness of breath. No urinary symptoms. . Objective Last 8 Hrs Date Time Temp Pulse Resp B/P (MAP) Pulse Ox O2 Delivery O2 Flow Rate FiO2 12/25/17 15:42 37.2 78 20 106/57 (73) 96 Room Air Physical Exam: General-lying in bed, no distress Lungs- clear to auscultation; no respiratory distress Cardiovascular- RRR; no gallop; no JVD; 1-2+ pretibial edema Abdomen-obese, + bowel sounds, soft, moderate right upper quadrant tenderness Extremities- no cyanosis Neuro- alert, oriented Skin- warm & dry . Laboratory Results: Last 24 Hours Test 12/25/17 06:04 White Blood Count 7.85 K/uL Red Blood Count 3.60 M/uL Hemoglobin 12.0 g/dL Hematocrit 35.8 % Mean Corpuscular Volume 99.4 fL Mean Corpuscular Hemoglobin 33.3 pg Mean Corpuscular Hemoglobin Concent 33.5 g/dl RDW Standard Deviation 56.5 fL RDW Coefficient of Variation 15.5 % Platelet Count 187 K/uL Mean Platelet Volume 10.1 fL Prothrombin Time 54.7 SECONDS Prothromb Time International Ratio 5.4 Sodium Level 140 mmol/L Potassium Level 3.6 mmol/L Chloride Level 105 mmol/L Carbon Dioxide Level 30 mmol/L Anion Gap 5.0 mmol/L Blood Urea Nitrogen 11 mg/dl Creatinine 0.76 mg/dl Est Creatinine Clear Calc Drug Dose 86.6 ml/min Estimated GFR () 88.3 Estimated GFR (Non- 76.2 BUN/Creatinine Ratio 14.9 Random Glucose 89 mg/dl Calcium Level 8.1 mg/dl Total Bilirubin 0.7 mg/dl Aspartate Amino Transf (AST/SGOT) 10 U/L Alanine Aminotransferase (ALT/SGPT) 13 U/L Alkaline Phosphatase 85 U/L Total Protein 5.6 gm/dl Albumin 2.2 gm/dl Globulin 3.4 gm/dl Albumin/Globulin Ratio 0.6 Assessment & Plan CHOLECYSTITIS Presented with right upper quadrant pain. White count 11,000. LFTs and lipase normal. Ultrasound demonstrated Iveth lithiasis, distention of gallbladder, normal caliber of common bile duct. Started on IV antibiotic therapy with ciprofloxacin and metronidazole. General Surgery consulted. Cholecystectomy anticipated. CHRONIC LEFT VENTRICULAR DIASTOLIC HEART FAILURE Compensated. ATRIAL FIBRILLATION Currently in sinus rhythm. Continue metoprolol. Warfarin being held due to supra therapeutic INR and anticipated surgery. HYPERTENSION Continue metoprolol. ASTHMA Pulmonary status stable. Continue montelukast and inhalers. DIABETES MELLITUS TYPE 2 Fasting blood sugar this morning 89. Follow. MORBID OBESITY AHA diet postop. VTE PROPHYLAXIS/HISTORY OF PULMONARY EMBOLISM INR supratherapeutic at time of admission. Warfarin being held. SCD's perioperative. Resume anticoagulation as soon as possible postoperatively. DISPOSITION Anticipated return to [facility] under the care of Dr. Lemus. . Current Inpatient Medications: Current Inpatient Medications Medications (Trade) Dose Ordered Sig/[place] Route Start Time Stop Time Status Last Admin Dose Admin Acetaminophen (Tylenol Tab) 650 mg Q4H PRN PO 12/24/17 16:00 01/23/18 15:59 12/24/17 19:40 650 MG Ondansetron HCl (Zofran Inj) 4 mg Q6H PRN IV 12/24/17 16:00 01/23/18 15:59 Metronidazole 500 mg/Prmx 100 ml @ 100 mls/hr Q8H IV 12/24/17 23:00 01/03/18 22:59 12/25/17 14:24 100 MLS/HR Ciprofloxacin/ Dextrose 400 mg/ Prmx 200 ml @ 100 mls/hr Q12H IV 12/25/17 05:00 01/04/18 04:59 12/25/17 18:14 100 MLS/HR Aspirin (Ecotrin Tab) 81 mg QAM PO 12/25/17 09:00 01/24/18 08:59 12/25/17 08:50 81 MG Diltiazem HCl (Cardizem Cd Cap) 120 mg DAILY PO 12/25/17 09:00 01/24/18 08:59 12/25/17 08:50 120 MG Duloxetine HCl (Cymbalta Cap) 60 mg DAILY PO 12/25/17 09:00 01/24/18 08:59 12/25/17 08:51 60 MG Fentanyl (Duragesic Patch) 50 mcg Q3D@0900 TD 12/27/17 09:00 01/10/18 08:59 Fexofenadine HCl (Kim Tab) 180 mg DAILY PO 12/25/17 09:00 01/24/18 08:59 12/25/17 08:48 180 MG Salmeterol Xinafoate/ Fluticasone (Advair Diskus 500/50 Inh) 1 puff BID INH 12/24/17 21:00 01/23/18 20:59 Future hold 12/25/17 10:26 1 PUFF Albuterol/ Ipratropium (Duoneb) 1 ml Q4R PRN INH 12/24/17 16:45 01/23/18 16:44 Levothyroxine Sodium (Synthroid Tab) 75 mcg DAILYBB PO 12/25/17 06:00 01/24/18 06:59 12/25/17 05:09 75 MCG Metoprolol Tartrate (Lopressor Tab) 12.5 mg BID PO 12/24/17 21:00 01/23/18 20:59 12/25/17 08:50 12.5 MG Montelukast Sodium (Singulair Tab) 10 mg HS PO 12/24/17 21:00 01/23/18 20:59 12/24/17 22:48 10 MG Pantoprazole Sodium (Protonix Tab) 40 mg DAILY PO 12/25/17 09:00 01/24/18 08:59 12/25/17 08:48 40 MG Potassium Chloride (Klor-Con Tab) 20 meq QAM PO 12/25/17 09:00 01/24/18 08:59 12/25/17 08:49 20 MEQ Pregabalin (Lyrica Cap) 50 mg TID PO 12/24/17 21:00 01/23/18 20:59 12/25/17 13:24 50 MG Sucralfate (Carafate Tab) 1 gm ACHS PO 12/24/17 21:00 01/23/18 20:59 12/25/17 18:16 1 GM Tramadol HCl (Ultram Tab) 50 mg TID PO 12/24/17 21:00 01/23/18 20:59 12/25/17 13:24 50 MG Buspirone HCl (Buspar Tab) 10 mg BID PO 12/24/17 21:00 01/23/18 20:59 12/25/17 08:49 10 MG Ferrous Sulfate (Feosol Tab) 325 mg BIDM PO 12/24/17 18:00 01/23/18 17:59 12/25/17 18:15 325 MG Magnesium Oxide (Mag-Ox Tab) 400 mg BID PO 12/24/17 21:00 01/23/18 20:59 12/25/17 08:49 400 MG Sodium Chloride 1,000 ml @ 80 mls/hr [id number] IV 12/24/17 18:30 01/23/18 18:29 12/25/17 06:57 80 MLS/HR Miscellaneous (Fentanyl Patch Remove & Waste) 1 ea Q3D@0859 N/A 12/27/17 08:59 01/26/18 08:58 Miscellaneous Information (Check Fentanyl Patch Placement) 1 ea QS N/A 12/25/17 00:00 01/24/18 00:00 12/25/17 16:00 1 EA Morphine Sulfate (MoRPHine SULFATE INJ) 4 mg Q6H PRN IV 12/24/17 19:15 01/07/18 19:14
[2017-12-25] MEDS: MONTELUKAST SOD 10 MG TAB PO SCH (21:14)
[2017-12-25] MEDS: ZOLPIDEM TARTRATE 5 MG TAB PO PRN (23:12)
[2017-12-26] MEDS: CIPROFLOXACIN / D5W 400 MG in PREMIXED IN D5W 200 ML IV SCH (05:15)
[2017-12-26] MEDS: LEVOTHYROXINE 75 MCG TAB PO SCH (05:15)
[2017-12-26] MEDS: METRONIDAZOLE / NSS 500 MG in PREMIXED NSS 100 ML IV SCH (06:23)
[2017-12-26] MEDS: CHECK FENTANYL PATCH PLACEMENT SCH ×2 (07:39→16:00)
[2017-12-26] MEDS: SODIUM CHLORIDE 0.9% 1000ML 1,000 ML IV SCH ×2 (07:39→20:30)
[2017-12-26] MEDS: SUCRALFATE 1 GM TAB PO SCH ×4 (07:40→20:30)
[2017-12-26] MEDS ORDERED: PIPERACILL/TAZOBAC CONSULT ACTIVE PRN (08:15)
[2017-12-26 08:28] VITALS: BP 100/62; PULSE 65; TEMP 36.2; O2SAT 98
[2017-12-26 08:28] LABS: HEMATOCRIT 31.9 % (37-47); HEMOGLOBIN 10.7 g/dL (12.0-16.0); MEAN CELL VOLUME 98.5 fL (80-100); MEAN CORPUSCULAR HGB CONC 33.5 g/dl (32-36); MEAN PLATELET VOLUME 9.6 fL (7.4-10.4); PLATELET COUNT 160 K/uL (130-400); RED CELL DISTRIBUTION WIDTH CV 14.9 % (11.5-14.5); RED CELL DISTRIBUTION WIDTH SD 53.7 fL (36.4-46.3); WHITE BLOOD COUNT 6.78 K/uL (4.8-10.8)
[2017-12-26 08:35] LABS: INR 1.3 (0.9-1.1)
[2017-12-26 09:01] LABS: CALCIUM 7.8 mg/dl (8.5-10.1); CREATININE 0.67 mg/dl (0.60-1.20); POTASSIUM 3.1 mmol/L (3.5-5.1)
[2017-12-26] MEDS: TRAMADOL HCL 50 MG TAB PO SCH ×3 (09:03→20:30)
[2017-12-26] MEDS: PREGABALIN 50 MG CAP PO SCH ×3 (09:03→20:30)
[2017-12-26] MEDS: FLUTICASONE/SALMETEROL (ADVAIR) 500/50 INH 14 PUFF INH SCH ×2 (09:03→20:30)
[2017-12-26] MEDS: PANTOprazole SOD 40 MG TAB PO SCH (09:04)
[2017-12-26] MEDS: DULOXETINE HCL 60 MG CAP PO SCH (09:04)
[2017-12-26] MEDS: FERROUS SULFATE 325 MG TAB PO SCH ×2 (09:04→18:20)
[2017-12-26] MEDS: ASPIRIN 81 MG ECTAB PO SCH (09:04)
[2017-12-26] MEDS: POTASSIUM CHLORIDE 20 MEQ TABCR PO SCH (09:05)
[2017-12-26] MEDS: FEXOFENADINE HCL 180 MG TAB PO SCH (09:05)
[2017-12-26] MEDS: MAGNESIUM OXIDE 400 MG TAB PO SCH ×2 (09:05→20:30)
[2017-12-26] MEDS: DILTIAZEM HCL 120 MG CAPCR PO SCH (09:08)
[2017-12-26] MEDS: METOPROLOL TARTRATE 25 MG TAB PO SCH ×2 (09:08→20:30)
[2017-12-26] MEDS ORDERED: PIPERACILL/TAZOBAC IV 4.5 GM in DEXTROSE 5% 100ML IV ONE (09:30)
[2017-12-26 10:08] VITALS: TEMP 36.4; O2SAT 92
--- NOTE | 2017-12-26 11:38 | Anesthesiology Progress Note ---
Anesthesia Progress Note Date of Service Dec 26, 2017. Progress Notes Ms. Crane is slated for lap sophy on 12/27/[address] Beavers. Multiple allergies as noted above (morphine and tramadol listed as allergies but patient is currently prescribed these medications). PSH sig for panniculectomy and hernia repair with PONV. PMH sig for asthma, SOB (uses walker) without supplemental oxygen usage, A fib (on coumadin as outpatient, had supratherapeutic INR but corrected with vit K), PE in 2014, HTN, OA, NIDDM, hypothyroidism and morbid obesity. Never smoker. Recently admitted for noncardiac chest pain with neg troponins x3 and neg stress echo. Patient with full dentures and MP 2 with thick neck although airway looks favorable. Irregular HR. Plan for GETA. Advised to be NPO after midnight. Consent obtained.
[2017-12-26] MEDS: HEPARIN SOD 5000 UNIT/0.5 ML CARP SQ SCH ×2 (12:40→20:30)
[2017-12-26] MEDS ORDERED: POTASSIUM CHLORIDE 20 MEQ TABCR PO ONE (13:00)
--- NOTE | 2017-12-26 13:03 | Surgery Progress Note ---
Surgery Progress Note Date of Service Dec 26, 2017. Subjective Post OP Day: HD # 2 + feeling well, + pain controlled, + diet (clear liquids), No complaints, No chest pain, No SOB, No nausea, No vomiting Objective Vital Signs: Date Time Temp Pulse Resp B/P (MAP) Pulse Ox O2 Delivery O2 Flow Rate FiO2 12/26/17 10:08 36.4 92 Room Air 12/26/17 08:28 36.2 65 18 100/62 (75) 98 12/26/17 07:50 Nasal Cannula 2.0 12/25/17 23:19 Room Air 12/25/17 22:51 37.5 86 20 129/60 (83) 94 Room Air 12/25/17 21:17 78 135/74 (94) 12/25/17 15:42 37.2 78 20 106/57 (73) 96 Room Air General Appearance: WD/WN, no apparent distress, + obese Head: normocephalic, atraumatic Neck: trachea midline Respiratory/Chest: no respiratory distress, no accessory muscle use Abdomen: non distended, soft, no organomegaly, + tenderness (RUQ) Laboratory Results: Results Past 24 Hours Test 12/26/17 08:07 Range/Units White Blood Count 6.78 4.8-10.8 K/uL Red Blood Count 3.24 4.2-5.4 M/uL Hemoglobin 10.7 12.0-16.0 g/dL Hematocrit 31.9 37-47 % Mean Corpuscular Volume 98.5 80-100 fL Mean Corpuscular Hemoglobin 33.0 25-34 pg Mean Corpuscular Hemoglobin Concent 33.5 32-36 g/dl RDW Standard Deviation 53.7 36.4-46.3 fL RDW Coefficient of Variation 14.9 11.5-14.5 % Platelet Count 160 130-400 K/uL Mean Platelet Volume 9.6 7.4-10.4 fL Prothrombin Time 13.8 9.0-12.0 SECONDS Prothromb Time International Ratio 1.3 0.9-1.1 Sodium Level 137 136-145 mmol/L Potassium Level 3.1 3.5-5.1 mmol/L Chloride Level 105 98-107 mmol/L Carbon Dioxide Level 26 21-32 mmol/L Anion Gap 6.0 3-11 mmol/L Blood Urea Nitrogen 10 7-18 mg/dl Creatinine 0.67 0.60-1.20 mg/dl Est Creatinine Clear Calc Drug Dose 98.2 ml/min Estimated GFR () 99.0 Estimated GFR (Non- 85.4 BUN/Creatinine Ratio 14.7 10-20 Random Glucose 88 70-99 mg/dl Calcium Level 7.8 8.5-10.1 mg/dl Assessment & Plan Cholelithiasis with Gallbladder distention, possible early acute cholecystitis - afebrile, no leukocytosis - LFTS within normal limits - Abdominal pain improved but 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 Beavers has seen and examined patient, agrees with above
[2017-12-26] MEDS: PIPERACILL/TAZOBAC IV 4.5 GM in DEXTROSE 5% 100ML 100 ML IV SCH ×2 (13:30→22:38)
[2017-12-26 15:54] VITALS: BP 133/73; PULSE 64; TEMP 36.6; O2SAT 92
--- NOTE | 2017-12-26 16:22 | Surgery Progress Note ---
Surgery Progress Note Date of Service Dec 26, 2017. Subjective + feeling well pt is doing better, less abdominal , no nausea, no vomiting, but pt is still want to do cholecystectomy, Objective Vital Signs: Date Time Temp Pulse Resp B/P (MAP) Pulse Ox O2 Delivery O2 Flow Rate FiO2 12/26/17 15:54 36.6 64 18 133/73 (93) 92 Room Air 12/26/17 10:08 36.4 92 Room Air 12/26/17 08:28 36.2 65 18 100/62 (75) 98 12/26/17 07:50 Nasal Cannula 2.0 12/25/17 23:19 Room Air 12/25/17 22:51 37.5 86 20 129/60 (83) 94 Room Air 12/25/17 21:17 78 135/74 (94) General Appearance: WD/WN, no apparent distress Head: normocephalic Neck: supple, no JVD Respiratory/Chest: chest non-tender, lungs clear Cardiovascular: no edema, no gallop, no JVD, + irregularly irregular Abdomen: normal bowel sounds, non distended, soft, no organomegaly, + tenderness (RUQ) Extremities: normal range of motion, non-tender, normal inspection Laboratory Results: Results Past 24 Hours Test 12/26/17 08:07 Range/Units White Blood Count 6.78 4.8-10.8 K/uL Red Blood Count 3.24 4.2-5.4 M/uL Hemoglobin 10.7 12.0-16.0 g/dL Hematocrit 31.9 37-47 % Mean Corpuscular Volume 98.5 80-100 fL Mean Corpuscular Hemoglobin 33.0 25-34 pg Mean Corpuscular Hemoglobin Concent 33.5 32-36 g/dl RDW Standard Deviation 53.7 36.4-46.3 fL RDW Coefficient of Variation 14.9 11.5-14.5 % Platelet Count 160 130-400 K/uL Mean Platelet Volume 9.6 7.4-10.4 fL Prothrombin Time 13.8 9.0-12.0 SECONDS Prothromb Time International Ratio 1.3 0.9-1.1 Sodium Level 137 136-145 mmol/L Potassium Level 3.1 3.5-5.1 mmol/L Chloride Level 105 98-107 mmol/L Carbon Dioxide Level 26 21-32 mmol/L Anion Gap 6.0 3-11 mmol/L Blood Urea Nitrogen 10 7-18 mg/dl Creatinine 0.67 0.60-1.20 mg/dl Est Creatinine Clear Calc Drug Dose 98.2 ml/min Estimated GFR () 99.0 Estimated GFR (Non- 85.4 BUN/Creatinine Ratio 14.7 10-20 Random Glucose 88 70-99 mg/dl Calcium Level 7.8 8.5-10.1 mg/dl Assessment & Plan pt will have laparoscopic cholecystectomy, possible open or cholangiogram tomorrow at &;15am, D/W benefits, risks and alternatives of the procedure, the risks - infection, bleeding, injury CBD, bowel, NH, DVT, stroke, , pt understood, she agrees with the surgery, she signed consent, I answered all questions, Hold heparin 6 hours prior surgery, may resume coumadin and heparin6 hours after surgery
[2017-12-26] MEDS ORDERED: MICONAZOLE NITRATE POWDER 43 GM EXT PRN (19:00)
[2017-12-26] MEDS: MONTELUKAST SOD 10 MG TAB PO SCH (20:30)
[2017-12-26] MEDS: ZOLPIDEM TARTRATE 5 MG TAB PO PRN (20:40)
[2017-12-26 23:01] VITALS: BP 138/74; PULSE 80; TEMP 37.2; O2SAT 94
[2017-12-27] VITALS (10 sets, daily range): BP systolic 131–163; BP diastolic 69–91; PULSE 80–104; TEMP 36.5–36.8; O2SAT 95–98; Ht 167.6 cm; Wt 127.1 kg
[2017-12-27] MEDS: CHECK FENTANYL PATCH PLACEMENT SCH ×3 (00:09→16:38)
[2017-12-27] MEDS: LEVOTHYROXINE 75 MCG TAB PO SCH (05:17)
[2017-12-27 05:47] LABS: HEMATOCRIT 35.3 % (37-47); HEMOGLOBIN 11.7 g/dL (12.0-16.0); MEAN CELL VOLUME 98.6 fL (80-100); MEAN CORPUSCULAR HEMOGLOBIN 32.7 pg (25-34); MEAN CORPUSCULAR HGB CONC 33.1 g/dl (32-36); MEAN PLATELET VOLUME 10.3 fL (7.4-10.4); PLATELET COUNT 188 K/uL (130-400); RED CELL DISTRIBUTION WIDTH CV 14.5 % (11.5-14.5); RED CELL DISTRIBUTION WIDTH SD 52.3 fL (36.4-46.3); WHITE BLOOD COUNT 5.54 K/uL (4.8-10.8)
[2017-12-27 05:54] LABS: INR 1.2 (0.9-1.1)
--- NOTE | 2017-12-27 06:03 | Progress Note ---
Medicine Progress Note Date & Time of Visit: Dec 26, 2017 at 17:00 . Subjective Late entry secondary to computer downtime. Admitted 12/24 with cholecystitis. Feels better. No fever. RUQ pain improved. No nausea or vomiting. No diarrhea. No chest pain. No cough or shortness of breath. No urinary symptoms. . Objective Vital signs this morning at 08:28: temperature 36.2, pulse 65, respirations 18, blood pressure 100/62 . Physical Exam: General-lying in bed, no distress Lungs- clear to auscultation; no respiratory distress Cardiovascular- RRR; no gallop; no JVD; 1-2+ pretibial edema Abdomen-obese, + bowel sounds, soft, moderate right upper quadrant tenderness Extremities- no cyanosis Neuro- alert, oriented Skin- warm & dry . Laboratory Results: Last 24 Hours Test 12/26/17 08:07 12/27/17 05:18 White Blood Count 6.78 K/uL 5.54 K/uL Red Blood Count 3.24 M/uL 3.58 M/uL Hemoglobin 10.7 g/dL 11.7 g/dL Hematocrit 31.9 % 35.3 % Mean Corpuscular Volume 98.5 fL 98.6 fL Mean Corpuscular Hemoglobin 33.0 pg 32.7 pg Mean Corpuscular Hemoglobin Concent 33.5 g/dl 33.1 g/dl RDW Standard Deviation 53.7 fL 52.3 fL RDW Coefficient of Variation 14.9 % 14.5 % Platelet Count 160 K/uL 188 K/uL Mean Platelet Volume 9.6 fL 10.3 fL Prothrombin Time 13.8 SECONDS 12.8 SECONDS Prothromb Time International Ratio 1.3 1.2 Sodium Level 137 mmol/L Potassium Level 3.1 mmol/L Chloride Level 105 mmol/L Carbon Dioxide Level 26 mmol/L Anion Gap 6.0 mmol/L Blood Urea Nitrogen 10 mg/dl Creatinine 0.67 mg/dl Est Creatinine Clear Calc Drug Dose 98.2 ml/min Estimated GFR () 99.0 Estimated GFR (Non- 85.4 BUN/Creatinine Ratio 14.7 Random Glucose 88 mg/dl Calcium Level 7.8 mg/dl Assessment & Plan CHOLECYSTITIS Presented with right upper quadrant pain. White count 11,000. LFTs and lipase normal. Ultrasound demonstrated cholelithiasis, distention of gallbladder, normal caliber of common bile duct. General Surgery consulted. Cholecystectomy anticipated tomorrow. Initially received IV antibiotic therapy with ciprofloxacin and metronidazole; antibiotic therapy changed to piperacillin/tazobactam in light of urinary tract infection as discussed below. UTI Patient was experiencing some dysuria. Urinalysis demonstrated leukocyte esterase, WBCs, bacteria. Urine culture growing Proteus mirabilis, resistant to quinolones. Antibiotic therapy changed to piperacillin/tazobactam. CHRONIC LEFT VENTRICULAR DIASTOLIC HEART FAILURE Compensated. ATRIAL FIBRILLATION Currently in sinus rhythm. Continue metoprolol. Warfarin being held due to supra therapeutic INR and anticipated surgery. HYPERTENSION Continue metoprolol. ASTHMA Pulmonary status stable. Continue montelukast and inhalers. DIABETES MELLITUS TYPE 2 Fasting blood sugar this morning 88. Follow. MORBID OBESITY AHA diet postop. VTE PROPHYLAXIS/HISTORY OF PULMONARY EMBOLISM INR supratherapeutic at time of admission. Warfarin being held / reversed. INR this morning = 1.3. SQ heparin x 2 doses today. SCD's perioperatively. Resume anticoagulation as soon as possible postoperatively. DISPOSITION Anticipated return to [facility] under the care of Dr. Lemus. . Current Inpatient Medications: Current Inpatient Medications Medications (Trade) Dose Ordered Sig/[place] Route Start Time Stop Time Status Last Admin Dose Admin Acetaminophen (Tylenol Tab) 650 mg Q4H PRN PO 12/24/17 16:00 01/23/18 15:59 12/24/17 19:40 650 MG Ondansetron HCl (Zofran Inj) 4 mg Q6H PRN IV 12/24/17 16:00 01/23/18 15:59 Aspirin (Ecotrin Tab) 81 mg QAM PO 12/25/17 09:00 01/24/18 08:59 12/26/17 09:04 81 MG Diltiazem HCl (Cardizem Cd Cap) 120 mg DAILY PO 12/25/17 09:00 01/24/18 08:59 12/26/17 09:08 120 MG Duloxetine HCl (Cymbalta Cap) 60 mg DAILY PO 12/25/17 09:00 01/24/18 08:59 12/26/17 09:04 60 MG Fentanyl (Duragesic Patch) 50 mcg Q3D@0900 TD 12/27/17 09:00 01/10/18 08:59 Fexofenadine HCl (Kim Tab) 180 mg DAILY PO 12/25/17 09:00 01/24/18 08:59 12/26/17 09:05 180 MG Salmeterol Xinafoate/ Fluticasone (Advair Diskus 500/50 Inh) 1 puff BID INH 12/24/17 21:00 01/23/18 20:59 Future hold 12/26/17 09:03 1 PUFF Albuterol/ Ipratropium (Duoneb) 1 ml Q4R PRN INH 12/24/17 16:45 01/23/18 16:44 Levothyroxine Sodium (Synthroid Tab) 75 mcg DAILYBB PO 12/25/17 06:00 01/24/18 06:59 12/26/17 05:15 75 MCG Metoprolol Tartrate (Lopressor Tab) 12.5 mg BID PO 12/24/17 21:00 01/23/18 20:59 12/26/17 09:08 12.5 MG Montelukast Sodium (Singulair Tab) 10 mg HS PO 12/24/17 21:00 01/23/18 20:59 12/25/17 21:14 10 MG Pantoprazole Sodium (Protonix Tab) 40 mg DAILY PO 12/25/17 09:00 01/24/18 08:59 12/26/17 09:04 40 MG Potassium Chloride (Klor-Con Tab) 20 meq QAM PO 12/25/17 09:00 01/24/18 08:59 12/26/17 09:05 20 MEQ Pregabalin (Lyrica Cap) 50 mg TID PO 12/24/17 21:00 01/23/18 20:59 12/26/17 13:29 50 MG Sucralfate (Carafate Tab) 1 gm ACHS PO 12/24/17 21:00 01/23/18 20:59 12/26/17 13:29 1 GM Tramadol HCl (Ultram Tab) 50 mg TID PO 12/24/17 21:00 01/23/18 20:59 12/26/17 13:29 50 MG Buspirone HCl (Buspar Tab) 10 mg BID PO 12/24/17 21:00 01/23/18 20:59 12/26/17 09:04 10 MG Ferrous Sulfate (Feosol Tab) 325 mg BIDM PO 12/24/17 18:00 01/23/18 17:59 12/26/17 09:04 325 MG Magnesium Oxide (Mag-Ox Tab) 400 mg BID PO 12/24/17 21:00 01/23/18 20:59 12/26/17 09:05 400 MG Sodium Chloride 1,000 ml @ 80 mls/hr [id number] IV 12/24/17 18:30 01/23/18 18:29 12/26/17 07:39 80 MLS/HR Miscellaneous (Fentanyl Patch Remove & Waste) 1 ea Q3D@0859 N/A 12/27/17 08:59 01/26/18 08:58 Miscellaneous Information (Check Fentanyl Patch Placement) 1 ea QS N/A 12/25/17 00:00 01/24/18 00:00 12/27/17 00:09 1 EA Morphine Sulfate (MoRPHine SULFATE INJ) 4 mg Q6H PRN IV 12/24/17 19:15 01/07/18 19:14 Zolpidem Tartrate (Ambien Tab) 5 mg HS PRN PO 12/25/17 21:30 01/24/18 21:29 12/26/17 20:40 5 MG Piperacillin Sod/ Tazobactam Sod 4.5 gm/Dextrose 120 ml @ 30 mls/hr Q8H IV 12/26/17 14:00 01/05/18 13:59 12/26/17 22:38 30 MLS/HR Miscellaneous Information (Consult) 1 ea UD PRN N/A 12/26/17 08:15 01/25/18 08:14 Miconazole Nitrate (Desenex Powder) 1 appln UD PRN EXT 12/26/17 19:00 01/25/18 18:59
[2017-12-27 06:16] LABS: CALCIUM 8.1 mg/dl (8.5-10.1); CREATININE 0.63 mg/dl (0.60-1.20); POTASSIUM 3.4 mmol/L (3.5-5.1)
--- NOTE | 2017-12-27 06:50 | History & Physical Bridge Note ---
H&P Re-Evaluation Bridge Note: I have examined the patient, reviewed the History & Physical and in the interval since the performance of the History & Physical I have noted the following changes of clinical significance: No changes noted
[2017-12-27] MEDS ORDERED: ACETAMINOPHEN 1000 MG/100 ML IV IV ONE (06:52)
[2017-12-27] MEDS ORDERED: ONDANSETRON INJ 2 MG/ML 2 ML VIAL ONE ×2 (06:57→08:16)
[2017-12-27] MEDS ORDERED: PROPOFOL IV EMULSION 10 MG/ML 20 ML VIAL IV ONE (06:57)
[2017-12-27] MEDS ORDERED: LIDOCAINE HCL 1% 20 ML VIAL ONE (06:57)
[2017-12-27] MEDS ORDERED: LIDOCAINE HCL 2% 2 ML VIAL (20MG/ML) ONE (06:57)
[2017-12-27] MEDS ORDERED: BUPIVACAINE 0.5 % 5 MG/1 ML MPF 30ML VIAL ONE (06:58)
[2017-12-27] MEDS ORDERED: BACITRACIN OINT 15 GM TUBE ONE (06:58)
[2017-12-27] MEDS ORDERED: FENTANYL CITRATE INJ 50 MCG/1 ML 2 ML VIAL ONE ×3 (06:58→09:34)
[2017-12-27] MEDS: PANTOprazole SOD 40 MG TAB PO SCH (07:08)
[2017-12-27] MEDS: MAGNESIUM OXIDE 400 MG TAB PO SCH ×2 (07:08→21:33)
[2017-12-27] MEDS: METOPROLOL TARTRATE 25 MG TAB PO SCH ×2 (07:08→21:34)
[2017-12-27] MEDS: POTASSIUM CHLORIDE 20 MEQ TABCR PO SCH (07:08)
[2017-12-27] MEDS: TRAMADOL HCL 50 MG TAB PO SCH ×3 (07:08→21:32)
[2017-12-27] MEDS: PREGABALIN 50 MG CAP PO SCH ×3 (07:08→21:32)
[2017-12-27] MEDS: SUCRALFATE 1 GM TAB PO SCH ×4 (07:09→21:33)
[2017-12-27] MEDS: FLUTICASONE/SALMETEROL (ADVAIR) 500/50 INH 14 PUFF INH SCH ×2 (07:09→21:32)
[2017-12-27] MEDS: ASPIRIN 81 MG ECTAB PO SCH (07:09)
[2017-12-27] MEDS: DULOXETINE HCL 60 MG CAP PO SCH (07:09)
[2017-12-27] MEDS: FEXOFENADINE HCL 180 MG TAB PO SCH (07:09)
[2017-12-27] MEDS: FERROUS SULFATE 325 MG TAB PO SCH ×2 (07:09→18:09)
[2017-12-27] MEDS: DILTIAZEM HCL 120 MG CAPCR PO SCH (07:09)
[2017-12-27] MEDS: PIPERACILL/TAZOBAC IV 4.5 GM in DEXTROSE 5% 100ML 100 ML IV SCH ×3 (07:22→21:35)
[2017-12-27] MEDS ORDERED: CEFAZOLIN SOD 3000MG/22.5 ML IV PUSH IV SCH (07:30)
[2017-12-27] MEDS ORDERED: DEXAMETHASONE SOD INJ 4 MG/ML VIAL ONE (08:17)
[2017-12-27] MEDS ORDERED: SUCCINYLCHOLINE CHLORIDE 20 MG/ML 10 ML VIAL IV ONE (08:17)
[2017-12-27] MEDS ORDERED: METOCLOPRAMIDE HCL INJ 5 MG/ML 2 ML VIAL ONE (08:17)
[2017-12-27] MEDS ORDERED: ROCURONIUM BROMIDE 10 MG/ML 5 ML VIAL IV ONE (08:17)
[2017-12-27] MEDS ORDERED: FENTANYL PATCH REMOVE & WASTE SCH (08:59)
[2017-12-27] MEDS ORDERED: GLYCOPYRROLATE INJ 0.2 MG/ML VIAL ONE (09:00)
[2017-12-27] MEDS ORDERED: NEOSTIGMINE METHYLSULFATE 5 MG/5 ML SYR ONE (09:00)
[2017-12-27] MEDS ORDERED: FENTANYL 50 MCG/HR TDSY TD SCH (09:00)
[2017-12-27] MEDS: SODIUM CHLORIDE 0.9% 1000ML 1,000 ML IV SCH ×2 (09:00→21:36)
[2017-12-27] MEDS ORDERED: KETOROLAC TROMETHAMINE 30 MG/ML VIAL ONE (09:10)
[2017-12-27] MEDS ORDERED: ONDANSETRON INJ 2 MG/ML 2 ML VIAL IV PRN (09:15)
[2017-12-27] MEDS ORDERED: ATROPINE SULFATE 0.1 MG/ML 5ML SYR IV PRN (09:15)
[2017-12-27] MEDS ORDERED: FENTANYL CITRATE INJ 50 MCG/1 ML 2 ML VIAL IV PRN (09:15)
[2017-12-27] MEDS ORDERED: EpHEDrine SULFATE INJ 50 MG/ML AMP IV PRN (09:15)
--- NOTE | 2017-12-27 09:23 | [facility] Post Operative Brief Note ---
Immediate Operative Summary Operative Date Dec 27, 2017. Pre-Operative Diagnosis chronic Cholecystitis, cholelithiasis Post-Operative Diagnosis Same Procedure(s) Performed Laparoscopic Cholecystectomy Surgeon Dr Beavers Devops Consultant Surgeon(s) Marietta Felix PA-C Estimated Blood Loss 10ml Findings Consistent with Post-Op Diagnosis Fluids (cc crystalloids) 1500ml Specimens A. Gallbladder Drains None Anesthesia Type General Complication(s) none Disposition Accompanied Pt To Recover: yes Disposition: Recovery Room / PACU
--- NOTE | 2017-12-27 10:23 | Anesthesiology Progress Note ---
Anesthesia Post Op Note Date & Time Dec 27, 2017 at 10:23 Vital Signs Pain Intensity: 0 Vital Signs Past 12 Hours Date Time Temp Pulse Resp B/P (MAP) Pulse Ox O2 Delivery O2 Flow Rate FiO2 12/27/17 10:10 68 16 127/72 99 Oxymask 10 12/27/17 10:00 70 16 124/69 99 Oxymask 10 12/27/17 09:50 36.4 76 16 127/56 95 Oxymask 10 12/27/17 05:53 36.8 80 20 157/74 (101) 98 Nasal Cannula 2.0 12/27/17 00:00 Nasal Cannula 2.0 12/26/17 23:01 37.2 80 18 138/74 (95) 94 Room Air Notes Mental Status: alert / awake / arousable, participated in evaluation Pt Amnestic to Procedure: Yes Nausea / Vomiting: adequately controlled Pain: adequately controlled Airway Patency, RR, SpO2: stable & adequate BP & HR: stable & adequate Hydration State: stable & adequate Anesthetic Complications: no major complications apparent
--- NOTE | 2017-12-27 11:02 | OPERATIVE REPORT ---
DATE OF OPERATION: 12/27/2017 PREOPERATIVE DIAGNOSES: Chronic cholecystitis, cholelithiasis. POSTOPERATIVE DIAGNOSES: Same. OPERATION: Laparoscopic cholecystectomy. SURGEON: Dr. Sudhir Beavers. [employer]ALLATIONS MECHANIC: Marietta Felix PA-C ANESTHESIA: General. ESTIMATED BLOOD LOSS: About 10 mL. FINDINGS: Chronic cholecystitis, cholelithiasis. COMPLICATIONS: None. INDICATIONS FOR THE PROCEDURE: This is a 77-year-old female who presented with right upper quadrant pain and the patient had ultrasound diagnosed with chronic cholecystitis, cholelithiasis. The patient will be required to do a laparoscopic cholecystectomy. I did talk to the patient about the benefit, the risk and alternate to procedure. I indicated the risks may include but not limited such as bleeding, infection, injury to common bile duct, injury to bowel, may need ERCP, myocardial infarction, DVT, stroke, , incisional hernia. The patient understands. She signed informed consent and I answered all questions. DETAILS OF PROCEDURE: We brought the patient to the OR, put the patient in the supine position. The patient received SCDs on bilateral legs to prevent DVT. Also, the patient received 2 grams Ancef IV for prophylactic antibiotic. The patient received general anesthesia without difficulty. The abdomen was prepped and draped in routine sterile fashion. After time out, I injected the local anesthesia on the middle of the abdominal then made about 2 cm incision on the middle abdomen, opened fascia, opened peritoneum under direct vision, put a Jerry trocar in, connected to CO2 to create pneumoperitoneum flow rate at 6 liter per minute. Pressure not more than 14 mmHg. Once we get a nice pneumoperitoneum, the patient had some distention in the abdomen and then we put another two 5 mm trocar on the right upper quadrant, under direct vision put another 11 trocar on the epigastric area and then we found the patient had a chronic cholecystitis. Once all trocars in, I used a grasper to hold the base of the gallbladder, put direction to the diaphragm and put another grasper in to hold the pouch of the gallbladder, put the latter to explore the triangle of Calot. The cystic duct was identified and mobilized with a two 10 mm metal clip on the proximal cystic duct, one on the distal cystic duct. I used scissor to transection the cystic duct. Rechecked and no bile leak and no active bleeding. Then the cystic artery was identified and mobilized. I put two 10 mm metal clip on the proximal cystic artery and 1 on the distal cystic artery. Then I used a scissor to transect to cystic artery. Then rechecked, no active bleeding. Then we used the bowel, we take down gallbladder without difficulty. Then we pulled out gallbladder through the catch bag and then we rechecked the abdomen and no active bleeding from trocar site. After we removed the trocar, no active bleeding from the liver bed. The pneumoperitoneum was released, closed the umbilical incision, fascial layer by using figure of eight x3 and closed subcutaneous layer by using 2-0 Vicryl interrupted and closed skin by use 4-0 Vicryl. For epigastric area, we used a #1 Vicryl, closed the subcutaneous layer interrupt and closed skin by using 4-0 Vicryl, another two 5-mm trocar site closed skin only by using 4-0 Vicryl. The patient tolerated the procedure well. All instrument, needle and sponge count correct x2 at the end of the case and the patient transferred to recovery room in stable condition. The specimen sent to pathology. I attest to the content of the Intraoperative Record and any orders documented therein. Any exceptions are noted below. NIKOLE
[2017-12-27] MEDS ORDERED: WARFARIN SOD 5 MG TAB PO ONE (18:45)
--- NOTE | 2017-12-27 19:52 | Progress Note ---
Medicine Progress Note Date & Time of Visit: Dec 27, 2017 at 16:20 . Subjective Laparoscopic cholecystectomy performed earlier today by Dr. Beavers. Doing well postoperatively. No chest pain. No cough or dyspnea. No nausea or vomiting. Postop pain well-controlled. . Objective Last 8 Hrs Date Time Temp Pulse Resp B/P (MAP) Pulse Ox O2 Delivery O2 Flow Rate FiO2 12/27/17 15:22 36.8 84 16 139/73 (95) 96 Nasal Cannula 3.0 12/27/17 13:50 36.8 87 17 134/69 (90) 96 Nasal Cannula 2.0 12/27/17 12:50 36.6 86 16 144/82 (102) 97 Nasal Cannula 3.0 Physical Exam: General-lying in bed, no distress Lungs- clear to auscultation; no respiratory distress Cardiovascular- RRR; no gallop; no JVD; 1-2+ pretibial edema Abdomen-obese, incisions bandaged; + bowel sounds, soft Extremities- no cyanosis Neuro- alert, oriented Skin- warm & dry . Laboratory Results: Last 24 Hours Test 12/27/17 05:18 12/27/17 07:04 12/27/17 09:56 White Blood Count 5.54 K/uL Red Blood Count 3.58 M/uL Hemoglobin 11.7 g/dL Hematocrit 35.3 % Mean Corpuscular Volume 98.6 fL Mean Corpuscular Hemoglobin 32.7 pg Mean Corpuscular Hemoglobin Concent 33.1 g/dl RDW Standard Deviation 52.3 fL RDW Coefficient of Variation 14.5 % Platelet Count 188 K/uL Mean Platelet Volume 10.3 fL Prothrombin Time 12.8 SECONDS Prothromb Time International Ratio 1.2 Sodium Level 139 mmol/L Potassium Level 3.4 mmol/L Chloride Level 108 mmol/L Carbon Dioxide Level 26 mmol/L Anion Gap 5.0 mmol/L Blood Urea Nitrogen 7 mg/dl Creatinine 0.63 mg/dl Est Creatinine Clear Calc Drug Dose 104.5 ml/min Estimated GFR () 101.0 Estimated GFR (Non- 87.1 BUN/Creatinine Ratio 10.8 Random Glucose 89 mg/dl Calcium Level 8.1 mg/dl Bedside Glucose 75 mg/dl 151 mg/dl Assessment & Plan CHOLECYSTITIS Presented with right upper quadrant pain. White count 11,000. LFTs and lipase normal. Ultrasound demonstrated cholelithiasis, distention of gallbladder, normal caliber of common bile duct. General Surgery consulted. Initially received IV antibiotic therapy with ciprofloxacin and metronidazole; antibiotic therapy changed to piperacillin/tazobactam in light of urinary tract infection as discussed below. Laparoscopic cholecystectomy performed today. UTI Patient was experiencing some dysuria. Urinalysis demonstrated leukocyte esterase, WBCs, bacteria. Urine culture growing Proteus mirabilis, resistant to quinolones. Antibiotic therapy changed to piperacillin/tazobactam. CHRONIC LEFT VENTRICULAR DIASTOLIC HEART FAILURE Compensated. ATRIAL FIBRILLATION Currently in sinus rhythm. Continue metoprolol. Warfarin held preoperatively due to supra therapeutic INR and anticipated surgery. Resume warfarin postoperatively. HYPERTENSION Continue metoprolol. ASTHMA Pulmonary status stable. Continue montelukast and inhalers. DIABETES MELLITUS TYPE 2 Fasting blood sugar this morning 75. Follow. MORBID OBESITY AHA diet postop. VTE PROPHYLAXIS/HISTORY OF PULMONARY EMBOLISM INR supratherapeutic at time of admission. Warfarin being held / reversed. INR this morning = 1.2. SQ heparin x 2 doses 12/26. SCD's perioperatively. Resume anticoagulation as soon as possible postoperatively. DISPOSITION Anticipated return to [facility] under the care of Dr. Lemus. . Current Inpatient Medications: Current Inpatient Medications Medications (Trade) Dose Ordered Sig/[place] Route Start Time Stop Time Status Last Admin Dose Admin Acetaminophen (Tylenol Tab) 650 mg Q4H PRN PO 12/24/17 16:00 01/23/18 15:59 12/24/17 19:40 650 MG Ondansetron HCl (Zofran Inj) 4 mg Q6H PRN IV 12/24/17 16:00 01/23/18 15:59 Aspirin (Ecotrin Tab) 81 mg QAM PO 12/25/17 09:00 01/24/18 08:59 12/26/17 09:04 81 MG Diltiazem HCl (Cardizem Cd Cap) 120 mg DAILY PO 12/25/17 09:00 01/24/18 08:59 12/26/17 09:08 120 MG Duloxetine HCl (Cymbalta Cap) 60 mg DAILY PO 12/25/17 09:00 01/24/18 08:59 12/26/17 09:04 60 MG Fentanyl (Duragesic Patch) 50 mcg Q3D@0900 TD 12/27/17 09:00 01/10/18 08:59 12/27/17 11:38 50 MCG Fexofenadine HCl (Kim Tab) 180 mg DAILY PO 12/25/17 09:00 01/24/18 08:59 12/26/17 09:05 180 MG Salmeterol Xinafoate/ Fluticasone (Advair Diskus 500/50 Inh) 1 puff BID INH 12/24/17 21:00 01/23/18 20:59 Future hold 12/26/17 09:03 1 PUFF Albuterol/ Ipratropium (Duoneb) 1 ml Q4R PRN INH 12/24/17 16:45 01/23/18 16:44 Levothyroxine Sodium (Synthroid Tab) 75 mcg DAILYBB PO 12/25/17 06:00 01/24/18 06:59 12/26/17 05:15 75 MCG Metoprolol Tartrate (Lopressor Tab) 12.5 mg BID PO 12/24/17 21:00 01/23/18 20:59 12/26/17 09:08 12.5 MG Montelukast Sodium (Singulair Tab) 10 mg HS PO 12/24/17 21:00 01/23/18 20:59 12/25/17 21:14 10 MG Pantoprazole Sodium (Protonix Tab) 40 mg DAILY PO 12/25/17 09:00 01/24/18 08:59 12/26/17 09:04 40 MG Potassium Chloride (Klor-Con Tab) 20 meq QAM PO 12/25/17 09:00 01/24/18 08:59 12/26/17 09:05 20 MEQ Pregabalin (Lyrica Cap) 50 mg TID PO 12/24/17 21:00 01/23/18 20:59 12/27/17 13:34 50 MG Sucralfate (Carafate Tab) 1 gm ACHS PO 12/24/17 21:00 01/23/18 20:59 12/27/17 16:45 1 GM Tramadol HCl (Ultram Tab) 50 mg TID PO 12/24/17 21:00 01/23/18 20:59 12/27/17 13:34 50 MG Buspirone HCl (Buspar Tab) 10 mg BID PO 12/24/17 21:00 01/23/18 20:59 12/26/17 09:04 10 MG Ferrous Sulfate (Feosol Tab) 325 mg BIDM PO 12/24/17 18:00 01/23/18 17:59 12/27/17 18:09 325 MG Magnesium Oxide (Mag-Ox Tab) 400 mg BID PO 12/24/17 21:00 01/23/18 20:59 12/26/17 09:05 400 MG Sodium Chloride 1,000 ml @ 80 mls/hr [id number] IV 12/24/17 18:30 01/23/18 18:29 12/26/17 07:39 80 MLS/HR Miscellaneous (Fentanyl Patch Remove & Waste) 1 ea Q3D@0859 N/A 12/27/17 08:59 01/26/18 08:58 12/27/17 08:59 1 EA Miscellaneous Information (Check Fentanyl Patch Placement) 1 ea QS N/A 12/25/17 00:00 01/24/18 00:00 12/27/17 16:38 1 EA Morphine Sulfate (MoRPHine SULFATE INJ) 4 mg Q6H PRN IV 12/24/17 19:15 01/07/18 19:14 Zolpidem Tartrate (Ambien Tab) 5 mg HS PRN PO 12/25/17 21:30 01/24/18 21:29 12/26/17 20:40 5 MG Piperacillin Sod/ Tazobactam Sod 4.5 gm/Dextrose 120 ml @ 30 mls/hr Q8H IV 12/26/17 14:00 01/05/18 13:59 12/27/17 13:40 30 MLS/HR Miscellaneous Information (Consult) 1 ea UD PRN N/A 12/26/17 08:15 01/25/18 08:14 Miconazole Nitrate (Desenex Powder) 1 appln UD PRN EXT 12/26/17 19:00 01/25/18 18:59 Enoxaparin Sodium (Lovenox Inj) 40 mg HS SQ 12/27/17 21:00 01/26/18 20:59
[2017-12-27] MEDS ORDERED: ENOXAPARIN 40 MG/0.4 ML SYR SQ SCH (21:00)
[2017-12-27] MEDS: ZOLPIDEM TARTRATE 5 MG TAB PO PRN (21:32)
[2017-12-27] MEDS: MONTELUKAST SOD 10 MG TAB PO SCH (21:34)
[2017-12-28] MEDS: CHECK FENTANYL PATCH PLACEMENT SCH ×2 (00:15→08:00)
[2017-12-28 03:53] VITALS: BP 146/76; PULSE 90; TEMP 36.8; O2SAT 96
[2017-12-28] MEDS: LEVOTHYROXINE 75 MCG TAB PO SCH (05:30)
[2017-12-28] MEDS: PIPERACILL/TAZOBAC IV 4.5 GM in DEXTROSE 5% 100ML 100 ML IV SCH ×2 (05:30→14:00)
[2017-12-28 07:01] VITALS: BP 126/71; PULSE 96; TEMP 36.3; O2SAT 91
[2017-12-28 08:13] LABS: HEMATOCRIT 34.3 % (37-47); HEMOGLOBIN 11.3 g/dL (12.0-16.0); MEAN CELL VOLUME 97.2 fL (80-100); MEAN CORPUSCULAR HGB CONC 32.9 g/dl (32-36); MEAN PLATELET VOLUME 10.4 fL (7.4-10.4); PLATELET COUNT 202 K/uL (130-400); RED CELL DISTRIBUTION WIDTH CV 14.5 % (11.5-14.5); RED CELL DISTRIBUTION WIDTH SD 51.4 fL (36.4-46.3); WHITE BLOOD COUNT 7.58 K/uL (4.8-10.8)
[2017-12-28 08:21] LABS: INR 1.3 (0.9-1.1)
[2017-12-28 08:42] LABS: CALCIUM 8.2 mg/dl (8.5-10.1); CREATININE 0.6 mg/dl (0.60-1.20); POTASSIUM 3.5 mmol/L (3.5-5.1)
--- NOTE | 2017-12-28 08:58 | Surgery Progress Note ---
Surgery Progress Note Date of Service Dec 28, 2017. Subjective Post OP Day: 1 (s/p laparoscopic cholecystectomy) + feeling well, + complaints (mild incisional pain, controlled), + diet, No chest pain, No SOB, No bowel movement, No nausea, No vomiting Objective Vital Signs: Date Time Temp Pulse Resp B/P (MAP) Pulse Ox O2 Delivery O2 Flow Rate FiO2 12/28/17 07:01 36.3 96 18 126/71 (89) 91 Room Air 12/28/17 03:53 36.8 90 22 146/76 (99) 96 Nasal Cannula 2.0 12/28/17 00:08 Room Air 12/27/17 22:47 36.8 93 22 155/77 (103) 96 Room Air 12/27/17 21:30 104 163/91 (115) 12/27/17 16:45 95 Room Air 12/27/17 15:22 36.8 84 16 139/73 (95) 96 Nasal Cannula 3.0 12/27/17 13:50 36.8 87 17 134/69 (90) 96 Nasal Cannula 2.0 12/27/17 12:50 36.6 86 16 144/82 (102) 97 Nasal Cannula 3.0 12/27/17 11:50 36.6 85 16 149/75 (99) 95 Nasal Cannula 3.0 12/27/17 11:20 36.6 84 16 147/80 (102) 98 Nasal Cannula 2.0 12/27/17 10:50 98 Nasal Cannula 4.0 12/27/17 10:50 Nasal Cannula 4.0 12/27/17 10:50 36.5 80 16 131/76 (94) 98 Nasal Cannula 4.0 12/27/17 10:40 36.6 74 16 124/66 99 Nasal Cannula 4 Oxymask 12/27/17 10:30 36.6 16 129/73 96 Nasal Cannula 4 Oxymask 12/27/17 10:20 69 16 129/73 96 Nasal Cannula 4 Oxymask 12/27/17 10:10 68 16 127/72 99 Oxymask 10 12/27/17 10:00 70 16 124/69 99 Oxymask 10 12/27/17 09:50 36.4 76 16 127/56 95 Oxymask 10 General Appearance: no apparent distress, + obese Head: normocephalic, atraumatic Neck: trachea midline Abdomen: non distended, soft, no organomegaly, no pulsatile mass, + tenderness (at incision sites, appropriate post op) Incision(s): clean, dry, intact (dressings clean/dry/intact, incisions not inspected) Laboratory Results: Results Past 24 Hours Test 12/27/17 09:56 12/28/17 07:15 Range/Units Bedside Glucose 151 70-90 mg/dl White Blood Count 7.58 4.8-10.8 K/uL Red Blood Count 3.53 4.2-5.4 M/uL Hemoglobin 11.3 12.0-16.0 g/dL Hematocrit 34.3 37-47 % Mean Corpuscular Volume 97.2 80-100 fL Mean Corpuscular Hemoglobin 32.0 25-34 pg Mean Corpuscular Hemoglobin Concent 32.9 32-36 g/dl RDW Standard Deviation 51.4 36.4-46.3 fL RDW Coefficient of Variation 14.5 11.5-14.5 % Platelet Count 202 130-400 K/uL Mean Platelet Volume 10.4 7.4-10.4 fL Prothrombin Time 13.5 9.0-12.0 SECONDS Prothromb Time International Ratio 1.3 0.9-1.1 Sodium Level 138 136-145 mmol/L Potassium Level 3.5 3.5-5.1 mmol/L Chloride Level 107 98-107 mmol/L Carbon Dioxide Level 27 21-32 mmol/L Anion Gap 5.0 3-11 mmol/L Blood Urea Nitrogen 5 7-18 mg/dl Creatinine 0.60 0.60-1.20 mg/dl Est Creatinine Clear Calc Drug Dose 108.8 ml/min Estimated GFR () 102.6 Estimated GFR (Non- 88.5 BUN/Creatinine Ratio 8.9 10-20 Random Glucose 151 70-99 mg/dl Calcium Level 8.2 8.5-10.1 mg/dl Assessment & Plan POD # 1 s/p laparoscopic cholecystectomy -vitals stable - pain controlled - no bowel movement since admission, will start home meds: Colace/Senokot Supratherapeutic INR on admission -s/p PO and IV Vitamin K - INR Sunday 1.3, given 2 doses of Heparin prior to OR - Restarting Coumadin UTI -Proteus species Plan: Okay for discharge from surgical standpoint discharge instructions reviewed continue current medical management until discharge back to detention Encourage ambulation, OOB to chair Follow-up Dr. Beavers in [address] Beavers has seen and examined patient, agrees with above
[2017-12-28] MEDS: SUCRALFATE 1 GM TAB PO SCH ×2 (09:00→11:17)
[2017-12-28] MEDS: FERROUS SULFATE 325 MG TAB PO SCH (09:01)
[2017-12-28] MEDS: FLUTICASONE/SALMETEROL (ADVAIR) 500/50 INH 14 PUFF INH SCH (09:01)
[2017-12-28] MEDS: FEXOFENADINE HCL 180 MG TAB PO SCH (09:02)
--- NOTE | 2017-12-28 09:02 | Consultant Recommendations ---
House Superintendent Recommendations Date of Service Dec 28, 2017. House Superintendent Recommendations No heavy lifting over 20 pounds for 3-4 weeks No strenuous activity until cleared by surgeon No submerging incisions underwater for 2 weeks (no bathing, swimming, or hot tubs) No driving while taking narcotic pain medication or until you are pain free You may shower in 4 days, sponge bath and wash hair in meantime After 4 days, shower and remove outer dressings Keep steri strips on incisions for 7 days and then remove, they may fall off on their own that is okay. Walking and light activity is encouraged to prevent blood clots from forming You may continue to take your home Tramadol three times a day as needed for pain Follow-up in surgical office in 2 weeks, please call office at [phone] to make an appointment.
[2017-12-28] MEDS: DULOXETINE HCL 60 MG CAP PO SCH (09:03)
[2017-12-28] MEDS: ASPIRIN 81 MG ECTAB PO SCH (09:04)
[2017-12-28] MEDS: POTASSIUM CHLORIDE 20 MEQ TABCR PO SCH (09:04)
[2017-12-28] MEDS: METOPROLOL TARTRATE 25 MG TAB PO SCH (09:05)
[2017-12-28] MEDS: DILTIAZEM HCL 120 MG CAPCR PO SCH (09:05)
[2017-12-28] MEDS: MAGNESIUM OXIDE 400 MG TAB PO SCH (09:06)
[2017-12-28] MEDS: PANTOprazole SOD 40 MG TAB PO SCH (09:07)
[2017-12-28] MEDS: PREGABALIN 50 MG CAP PO SCH ×2 (09:15→13:43)
[2017-12-28] MEDS: TRAMADOL HCL 50 MG TAB PO SCH ×2 (09:16→13:42)
[2017-12-28] MEDS ORDERED: SENNA 8.6 MG TAB PO SCH (09:30)
[2017-12-28] MEDS ORDERED: DOCUSATE SODIUM 100 MG CAP PO SCH (09:30)
--- NOTE | 2017-12-28 09:48 | Anesthesiology Progress Note ---
Anesthesia Post Op Note Date & Time Dec 28, 2017 at 09:48 Vital Signs Pain Intensity: 0.0 Vital Signs Past 12 Hours Date Time Temp Pulse Resp B/P (MAP) Pulse Ox O2 Delivery O2 Flow Rate FiO2 12/28/17 07:01 36.3 96 18 126/71 (89) 91 Room Air 12/28/17 03:53 36.8 90 22 146/76 (99) 96 Nasal Cannula 2.0 12/28/17 00:08 Room Air 12/27/17 22:47 36.8 93 22 155/77 (103) 96 Room Air Notes Mental Status: alert / awake / arousable, participated in evaluation Pt Amnestic to Procedure: Yes Nausea / Vomiting: adequately controlled Pain: adequately controlled Airway Patency, RR, SpO2: stable & adequate BP & HR: stable & adequate Hydration State: stable & adequate Anesthetic Complications: no major complications apparent
[2017-12-28] MEDS ORDERED: LVNIS40 SQ (13:40)
--- NOTE | 2017-12-28 13:47 | Discharge Instructions ---
Discharge Instructions Date of Service Dec 28, 2017. Admission Reason for Admission: abdominal pain . Discharge Discharge Diagnosis / Problem: cholecystitis, urinary tract infection Discharge Goals Goal(s): Decrease discomfort, Improve disease control Activity Recommendations Activity Level: Assistance Required Therapies: Physical Therapy, Occupational Therapy . Additional Information Patient informed of condition: Yes Advance Directives: Yes DNR: No Level of Care: Skilled Communicable Disease: No Prognosis: Improving Hu Catheter: No Instructions / Follow-Up Instructions / Follow-Up Follow-up in surgical office with Dr. Beavers in 2 weeks, please call office at [phone] to make an appointment. Thank you for receiving this patient in transfer. Please call if you have any questions. Ramon Floyd . Current Hospital Diet Patient's current hospital diet: AHA Diet (Heart Healthy) Discharge Diet Recommended Diet: AHA Diet (Heart Healthy), Diabetes Type 2 Diet Procedures Procedures Performed: Laparoscopic Cholecystectomy Pending Studies Studies pending at discharge: yes List of pending studies: pathology report from cholecystectomy Physician Orders On Transfer Vital Signs: routine . Weigh: routine . Additional Orders: Warfarin management per your institution's routine. . Medical Emergencies . Who to Call and When: Medical Emergencies: If at any time you feel your situation is an emergency, please call 911 immediately. . Non-Emergent Contact Non-Emergency issues call your: Primary Care Provider, Hospital Doctor, Surgeon . . "Provider Documentation" section prepared by Ramon Floyd. . Neurosurgery Research Director Recommendations Neurosurgery Research Director Recommendations: No heavy lifting over 20 pounds for 3-4 weeks No strenuous activity until cleared by surgeon No submerging incisions underwater for 2 weeks (no bathing, swimming, or hot tubs) No driving while taking narcotic pain medication or until you are pain free You may shower in 4 days, sponge bath and wash hair in meantime After 4 days, shower and remove outer dressings Keep steri strips on incisions for 7 days and then remove, they may fall off on their own that is okay. Walking and light activity is encouraged to prevent blood clots from forming You may continue to take your home Tramadol three times a day as needed for pain Follow-up in surgical office in 2 weeks, please call office at [phone] to make an appointment. Core Measure Problem Core Measures: None [place] Drug Monitoring Program Search Results: patient reviewed within database, no issues identified
--- NOTE | 2017-12-28 14:04 | Progress Note ---
Medicine Progress Note Date & Time of Visit: Dec 28, 2017 at ~ 12:00 . Subjective Doing well postoperatively. No chest pain. No cough or dyspnea. No nausea or vomiting. Passing flatus and stool. Postop pain well-controlled. . Objective Last 8 Hrs Date Time Temp Pulse Resp B/P (MAP) Pulse Ox O2 Delivery O2 Flow Rate FiO2 12/28/17 08:00 Room Air 12/28/17 07:01 36.3 96 18 126/71 (89) 91 Room Air Physical Exam: General- lying in bed, no distress Lungs- clear to auscultation; no respiratory distress Cardiovascular- RRR; no gallop; no JVD; 1-2+ pretibial edema Abdomen- + bowel sounds, soft Extremities- no cyanosis Neuro- alert, oriented Skin- warm & dry . Laboratory Results: Last 24 Hours Test 12/28/17 07:15 White Blood Count 7.58 K/uL Red Blood Count 3.53 M/uL Hemoglobin 11.3 g/dL Hematocrit 34.3 % Mean Corpuscular Volume 97.2 fL Mean Corpuscular Hemoglobin 32.0 pg Mean Corpuscular Hemoglobin Concent 32.9 g/dl RDW Standard Deviation 51.4 fL RDW Coefficient of Variation 14.5 % Platelet Count 202 K/uL Mean Platelet Volume 10.4 fL Prothrombin Time 13.5 SECONDS Prothromb Time International Ratio 1.3 Sodium Level 138 mmol/L Potassium Level 3.5 mmol/L Chloride Level 107 mmol/L Carbon Dioxide Level 27 mmol/L Anion Gap 5.0 mmol/L Blood Urea Nitrogen 5 mg/dl Creatinine 0.60 mg/dl Est Creatinine Clear Calc Drug Dose 108.8 ml/min Estimated GFR () 102.6 Estimated GFR (Non- 88.5 BUN/Creatinine Ratio 8.9 Random Glucose 151 mg/dl Calcium Level 8.2 mg/dl Assessment & Plan CHOLECYSTITIS Presented with right upper quadrant pain. White count 11,000. LFTs and lipase normal. Ultrasound demonstrated cholelithiasis, distention of gallbladder, normal caliber of common bile duct. General Surgery consulted. Initially received IV antibiotic therapy with ciprofloxacin and metronidazole; antibiotic therapy changed to piperacillin/tazobactam in light of urinary tract infection as discussed below. Laparoscopic cholecystectomy performed 12/[address] Beavers. Pathology pending. General Surgery follow-up with Dr. Beavers in 2 weeks. UTI (present on admission) Patient was experiencing some dysuria. Urinalysis demonstrated leukocyte esterase, WBCs, bacteria. Urine culture growing Proteus mirabilis, resistant to quinolones. Antibiotic therapy changed to piperacillin/tazobactam. Received adequate course of therapy by discharge. Recheck UA if pt develops fever or urinary symptoms. CHRONIC LEFT VENTRICULAR DIASTOLIC HEART FAILURE Compensated. Continue furosemide. ATRIAL FIBRILLATION Currently in sinus rhythm. Continue metoprolol. Warfarin held preoperatively due to supra therapeutic INR and anticipated surgery. Resumed warfarin postoperatively. HYPERTENSION Continue metoprolol. ASTHMA Pulmonary status stable. Continue montelukast and inhalers. DIABETES MELLITUS TYPE 2 Diet-controlled. Hgb A1C 5.4 at [facility] on 12/07/17. Fasting blood sugar day of discharge 151. Follow. MORBID OBESITY AHA diet. VTE PROPHYLAXIS/HISTORY OF PULMONARY EMBOLISM INR supratherapeutic at time of admission. Warfarin held / reversed for surgery. SCD's utilized perioperatively. Resumed warfarin postoperatively. INR day of discharge = 1.3. Discharge on Lovenox 40 mg HS until INR therapeutic, then DC. DISPOSITION Returning to [facility] under the care of Dr. Lemus. General Surgery follow-up with Dr. Beavers. . Consultants: General Surgery with Dr. Beavers . Procedures: ultrasound gallbladder IV meds lap cholecystectomy by Dr. Beavers on 12/27/17 . Current Inpatient Medications: Current Inpatient Medications Medications (Trade) Dose Ordered Sig/Lincoln Route Start Time Stop Time Status Last Admin Dose Admin Acetaminophen (Tylenol Tab) 650 mg Q4H PRN PO 12/24/17 16:00 01/23/18 15:59 12/24/17 19:40 650 MG Ondansetron HCl (Zofran Inj) 4 mg Q6H PRN IV 12/24/17 16:00 01/23/18 15:59 Aspirin (Ecotrin Tab) 81 mg QAM PO 12/25/17 09:00 01/24/18 08:59 12/28/17 09:04 81 MG Diltiazem HCl (Cardizem Cd Cap) 120 mg DAILY PO 12/25/17 09:00 01/24/18 08:59 12/28/17 09:05 120 MG Duloxetine HCl (Cymbalta Cap) 60 mg DAILY PO 12/25/17 09:00 01/24/18 08:59 12/28/17 09:03 60 MG Fentanyl (Duragesic Patch) 50 mcg Q3D@0900 TD 12/27/17 09:00 01/10/18 08:59 12/27/17 11:38 50 MCG Fexofenadine HCl (Kim Tab) 180 mg DAILY PO 12/25/17 09:00 01/24/18 08:59 12/28/17 09:02 180 MG Salmeterol Xinafoate/ Fluticasone (Advair Diskus 500/50 Inh) 1 puff BID INH 12/24/17 21:00 01/23/18 20:59 Future hold 12/28/17 09:01 1 PUFF Albuterol/ Ipratropium (Duoneb) 1 ml Q4R PRN INH 12/24/17 16:45 01/23/18 16:44 Levothyroxine Sodium (Synthroid Tab) 75 mcg DAILYBB PO 12/25/17 06:00 01/24/18 06:59 12/28/17 05:30 75 MCG Metoprolol Tartrate (Lopressor Tab) 12.5 mg BID PO 12/24/17 21:00 01/23/18 20:59 12/28/17 09:05 12.5 MG Montelukast Sodium (Singulair Tab) 10 mg HS PO 12/24/17 21:00 01/23/18 20:59 12/27/17 21:34 10 MG Pantoprazole Sodium (Protonix Tab) 40 mg DAILY PO 12/25/17 09:00 01/24/18 08:59 12/28/17 09:07 40 MG Potassium Chloride (Klor-Con Tab) 20 meq QAM PO 12/25/17 09:00 01/24/18 08:59 12/28/17 09:04 20 MEQ Pregabalin (Lyrica Cap) 50 mg TID PO 12/24/17 21:00 01/23/18 20:59 12/28/17 13:43 50 MG Sucralfate (Carafate Tab) 1 gm ACHS PO 12/24/17 21:00 01/23/18 20:59 12/28/17 11:17 1 GM Tramadol HCl (Ultram Tab) 50 mg TID PO 12/24/17 21:00 01/23/18 20:59 12/28/17 13:42 50 MG Buspirone HCl (Buspar Tab) 10 mg BID PO 12/24/17 21:00 01/23/18 20:59 12/28/17 09:02 10 MG Ferrous Sulfate (Feosol Tab) 325 mg BIDM PO 12/24/17 18:00 01/23/18 17:59 12/28/17 09:01 325 MG Magnesium Oxide (Mag-Ox Tab) 400 mg BID PO 12/24/17 21:00 01/23/18 20:59 12/28/17 09:06 400 MG Miscellaneous (Fentanyl Patch Remove & Waste) 1 ea Q3D@0859 N/A 12/27/17 08:59 01/26/18 08:58 12/27/17 08:59 1 EA Miscellaneous Information (Check Fentanyl Patch Placement) 1 ea QS N/A 12/25/17 00:00 01/24/18 00:00 12/28/17 08:00 1 EA Morphine Sulfate (MoRPHine SULFATE INJ) 4 mg Q6H PRN IV 12/24/17 19:15 01/07/18 19:14 Zolpidem Tartrate (Ambien Tab) 5 mg HS PRN PO 12/25/17 21:30 01/24/18 21:29 12/27/17 21:32 5 MG Piperacillin Sod/ Tazobactam Sod 4.5 gm/Dextrose 120 ml @ 30 mls/hr Q8H IV 12/26/17 14:00 01/05/18 13:59 12/28/17 05:30 30 MLS/HR Miscellaneous Information (Consult) 1 ea UD PRN N/A 12/26/17 08:15 01/25/18 08:14 Miconazole Nitrate (Desenex Powder) 1 appln UD PRN EXT 12/26/17 19:00 01/25/18 18:59 Enoxaparin Sodium (Lovenox Inj) 40 mg HS SQ 12/27/17 21:00 01/26/18 20:59 12/27/17 21:39 40 MG Docusate Sodium (coLACE CAP) 100 mg BID PO 12/28/17 09:30 01/27/18 09:29 12/28/17 11:16 100 MG Senna (Senokot Tab) 8.6 mg BID PO 12/28/17 09:30 01/27/18 09:29 12/28/17 11:16 8.6 MG
--- NOTE | 2017-12-28 14:08 | Discharge Summary ---
Discharge Summary Date of Service Dec 28, 2017. Discharge Summary Admission Date: Dec 24, 2017 at 15:53 Discharge Date: Dec 28, 2017 Discharge Disposition: intermediate facility ([facility]) Principal Diagnosis: cholecystitis OTHER ACUTE DIAGNOSES: urinary tract infection with Proteus mirabilis (present on admission) supratherapeutic INR . Secondary Diagnoses/Problems: Chronic and Resolved Medical Problems: (1) Ambulatory dysfunction Status: Chronic (2) Arthritis Status: Chronic (3) Asthma Status: Chronic (4) Atrial fibrillation Status: Chronic (5) Chronic back pain Status: Chronic (6) Chronic gastritis Status: Chronic (7) Chronic pain Status: Chronic (8) Diastolic CHF Status: Chronic (9) DJD (degenerative joint disease), multiple sites Status: Chronic (10) DM type 2 (diabetes mellitus, type 2) Status: Chronic (11) Generalized anxiety disorder Status: Chronic (12) History of pulmonary embolism Status: Chronic (13) Hypertension Status: Chronic (14) Hypothyroidism Status: Chronic (15) Obesity (BMI 30-39.9) Status: Chronic (16) Stenosis of right carotid artery Status: Chronic Surgical Problems: (1) H/O hernia repair Status: Chronic . Procedures: ultrasound gallbladder IV meds lap cholecystectomy by Dr. Beavers on 12/27/17 . Consultations: General Surgery with Dr. Beavers . Medication Reconciliation New Medications: Enoxaparin (Enoxaparin Sodium) 40 Mg/0.4 Ml Inj 40 MG SQ HS for 7 Days Short term medication. DC when INR > 2. Continued Medications: Acetaminophen (Tylenol) 325 Mg Tab 650 MG PO Q4H PRN for Pain or Fever Aspirin (Aspirin 81 Low Dose) 81 Mg Chw 1 TAB PO DAILY Bisacodyl (Bisac-Evac) 10 Mg Supp 1 SUPP ID UD PRN for PRN Buspirone Hcl (Buspirone Hcl) 10 Mg Tab 10 MG PO BID Carboxymethylcellulose Sodium (Lubricant Eye Drops) 0.5 % Dino 1 DROP OPB BID PRN for DRY EYES Diltiazem Hcl Coated Beads (Diltiazem Hcl Er) 120 Mg Cap 120 MG PO DAILY Docusate Sodium (Colace) 100 Mg Cap 1 CAP PO BID Duloxetine HCl (Duloxetine HCl) 60 Mg Cap 60 MG PO DAILY Fentanyl (Duragesic) 50 Mcg Tdsy 50 MCG TD [id number] New patch applied @ [facility] 12/27/17. Patch should be changed in a.m. on 12/30/17. Ferrous Sulfate (Ferrous Sulfate) 325 Mg Tab 1 TAB PO BID Fluticasone Prop/Salmeterol (Advair Diskus 500/50 60 Dose) 1 Ea Aerp 1 PUFF INH BID Furosemide (Lasix) 40 Mg Tab 40 MG PO DAILY Furosemide (Lasix) 20 Mg Tab 20 MG PO DAILY Glucosamine-Chondroitin (Glucosamine & Chondroitin 500-400 mg) 1 Cap Cap 1 CAP PO TID Guaifenesin (Siltussin Sa) 100 Mg/5 Ml Syp 10 ML PO Q4 PRN for Cough Ipratropium-Albuterol (Duoneb) 3 Ml Nebu 1 TREATMENT INH Q4H PRN for SOB/Wheezing, INHA Levothyroxine Sodium (Synthroid) 75 Mcg Tab 75 MCG PO DAILY Magnesium Hydroxide (Milk of Magnesia) 30 Ml Susp 30 ML PO UD PRN for PRN Magnesium Oxide (Mg Supplement (Magnesium Oxide) 400 Mg Tab 400 MG PO BID Metoprolol Tartrate (Lopressor) (Lopressor) 25 Mg Tab 0.5 TAB PO BID Miconazole (Miconazole) 1 Pow Pow 1 APPLN TOP TID Montelukast Sodium (Singulair) 10 Mg Tab 1 TAB PO DAILY Pantoprazole (Protonix) 40 Mg Tab 40 MG PO DAILY Polyethylene Glycol 3350 (Bulk (Polyethylene Glycol 3350) 1 Pow Pow 17 GM PO Q2D Potassium Chloride Microencaps (Potassium Chloride Cr) 20 Meq Tab 1 TAB PO QAM Pregabalin (Lyrica) 50 Mg Cap 50 MG PO TID Sennosides (Senna Lax) 8.6 Mg Tab 1 TAB PO BID Sodium Phosphate/Biphosphate (Fleet Enema) Shirin 1 EA ID UD PRN for PRN Sucralfate (Carafate) 1 Gm Tab 1 TAB PO ACHS Tramadol (Ultram) 50 Mg Tab 1 TAB PO TID Warfarin Sod (Jantoven) 3 Mg Tab 3 MG PO 4XWK SUN,TUES, THUR, SAT Warfarin Sod (Warfarin Sodium) 3 Mg Tab 4.5 MG PO 3XWK TAKE MON, WED, FRI Zolpidem Tartrate (Ambien) 5 Mg Tab 0.5 TAB PO HS Discontinued Medications: Fexofenadine Hcl (Kim Allergy) 180 Mg Tab 1 TAB PO DAILY for 14 Days, #14 TAB 2 Refills Admission Information HPI (per Admitting provider): 77-year-old female who presents to the ER with a chief complaint of right upper quadrant abdominal pain. Patient was recently admitted to [facility] 12/12 through for noncardiac chest pain. Patient underwent stress test that was negative for ischemia. Patient reports her symptoms began last night after she had dinner. 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 She describes the pain as severe, rating it as a 9/10 at its worst. Pain persisted throughout the night. She had associated nausea and dry heaves however denies vomiting. She reports the pain radiated over to the midepigastric and to the left side of her abdomen at times. Patient denies fever and chills. No chest pain or shortness of breath. She has chronic lower extremity edema and left lower extremity redness which is unchanged from baseline. She denies lightheadedness, dizziness , diaphoresis, and syncopal events. She reports dysuria for the past 5 days. In the ED, patient is afebrile and WBC 11.6 K. Vital signs are stable. RUQ ultrasound shows cholelithiasis with gallbladder distention. U/A suggest urinary tract infection. Patient was given Cipro, Flagyl, IV fentanyl, IV Zofran, and IVF. She was evaluated by general surgery in the ED. . Physical Exam (per Admitting): General Appearance: WD/WN, no apparent distress, + obese Head: normocephalic, atraumatic Eyes: normal inspection, EOMI, sclerae normal ENT: hearing grossly normal, + pertinent finding (Mucous membranes moist) Neck: supple, no JVD, trachea midline Respiratory/Chest: lungs clear, normal breath sounds, no respiratory distress Cardiovascular: normal peripheral pulses, + irregularly irregular (Rate controlled), + pertinent finding (+2 edema BL LE) Abdomen/GI: normal bowel sounds, soft, no organomegaly, + tenderness (RUQ) Extremities/Musculoskelatal: normal inspection, no calf tenderness, normal capillary refill Neurologic/Psych: no motor/sensory deficits, alert, normal mood/affect, oriented x 3 Skin: normal color, warm/dry, + pertinent finding (LLE erythema, chronic per patient) Hospital Course CHOLECYSTITIS Presented with right upper quadrant pain. White count 11,000. LFTs and lipase normal. Ultrasound demonstrated cholelithiasis, distention of gallbladder, normal caliber of common bile duct. General Surgery consulted. Initially received IV antibiotic therapy with ciprofloxacin and metronidazole; antibiotic therapy changed to piperacillin/tazobactam in light of urinary tract infection as discussed below. Laparoscopic cholecystectomy performed 12/[address] Beavers. Pathology pending. General Surgery follow-up with Dr. Beavers in 2 weeks. UTI (present on admission) Patient was experiencing some dysuria. Urinalysis demonstrated leukocyte esterase, WBCs, bacteria. Urine culture growing Proteus mirabilis, resistant to quinolones. Antibiotic therapy changed to piperacillin/tazobactam. Received adequate course of therapy by discharge. Recheck UA if pt develops fever or urinary symptoms. CHRONIC LEFT VENTRICULAR DIASTOLIC HEART FAILURE Compensated. Continue furosemide. ATRIAL FIBRILLATION Currently in sinus rhythm. Continue metoprolol. Warfarin held preoperatively due to supra therapeutic INR and anticipated surgery. Resumed warfarin postoperatively. HYPERTENSION Continue metoprolol. ASTHMA Pulmonary status stable. Continue montelukast and inhalers. DIABETES MELLITUS TYPE 2 Diet-controlled. Hgb A1C 5.4 at [facility] on 12/07/17. Fasting blood sugar day of discharge 151. Follow. MORBID OBESITY AHA diet. VTE PROPHYLAXIS/HISTORY OF PULMONARY EMBOLISM INR supratherapeutic at time of admission. Warfarin held / reversed for surgery. SCD's utilized perioperatively. Resumed warfarin postoperatively. INR day of discharge = 1.3. Discharge on Lovenox 40 mg HS until INR therapeutic, then DC. INR may have been supratherapeutic due to decreased PO intake from cholecystitis. Therefore, was discharged on most recent dose recommended by [facility]. Follow and titrate dose to maintain INR 2-3. DISPOSITION Returning to [facility] under the care of Dr. Lemus. General Surgery follow-up with Dr. Beavers. . Total time spent on discharge = 45 min. This includes examination of the patient, discharge planning, medication reconciliation, and communication with other providers. . Discharge Instructions Discharge Instructions Date of Service Dec 28, 2017. Admission Reason for Admission: abdominal pain . Discharge Discharge Diagnosis / Problem: cholecystitis, urinary tract infection Discharge Goals Goal(s): Decrease discomfort, Improve disease control Activity Recommendations Activity Level: Assistance Required Therapies: Physical Therapy, Occupational Therapy . Additional Information Patient informed of condition: Yes Advance Directives: Yes DNR: No Level of Care: Skilled Communicable Disease: No Prognosis: Improving Hu Catheter: No Instructions / Follow-Up Instructions / Follow-Up Follow-up in surgical office with Dr. Beavers in 2 weeks, please call office at [phone] to make an appointment. Thank you for receiving this patient in transfer. Please call if you have any questions. Ramon Floyd . Current Hospital Diet Patient's current hospital diet: AHA Diet (Heart Healthy) Discharge Diet Recommended Diet: AHA Diet (Heart Healthy), Diabetes Type 2 Diet Procedures Procedures Performed: Laparoscopic Cholecystectomy Pending Studies Studies pending at discharge: yes List of pending studies: pathology report from cholecystectomy Physician Orders On Transfer Vital Signs: routine . Weigh: routine . Additional Orders: Warfarin management per your institution's routine. . Medical Emergencies . Who to Call and When: Medical Emergencies: If at any time you feel your situation is an emergency, please call 911 immediately. . Non-Emergent Contact Non-Emergency issues call your: Primary Care Provider, Hospital Doctor, Surgeon . . "Provider Documentation" section prepared by Ramon Floyd. . Tire Service Technician Recommendations Tire Service Technician Recommendations: No heavy lifting over 20 pounds for 3-4 weeks No strenuous activity until cleared by surgeon No submerging incisions underwater for 2 weeks (no bathing, swimming, or hot tubs) No driving while taking narcotic pain medication or until you are pain free You may shower in 4 days, sponge bath and wash hair in meantime After 4 days, shower and remove outer dressings Keep steri strips on incisions for 7 days and then remove, they may fall off on their own that is okay. Walking and light activity is encouraged to prevent blood clots from forming You may continue to take your home Tramadol three times a day as needed for pain Follow-up in surgical office in 2 weeks, please call office at [phone] to make an appointment. Core Measure Problem Core Measures: None [place] Drug Monitoring Program Search Results: patient reviewed within database, no issues identified . Additional Copies To Viry Lemus M.D.; Marietta Felix ., SLIM; Sudhir Beavers MD
[2017-12-28 14:20] VITALS: BP 126/71; PULSE 96; TEMP 36.3; O2SAT 91
[2017-12-28] MEDS ORDERED: FNTTP50 TD (14:25)
[2017-12-28] MEDS ORDERED: TRAM-10 PO (14:25)
[2017-12-28] MEDS ORDERED: ZOLP5TAB PO (14:25)
[2017-12-28] MEDS ORDERED: WARFARIN SOD 3 MG TAB PO SCH (16:00)
== END 2017-12-28 14:50 | DRG 418 ==
LOC: EDBD 10:35 → C.EDA 10:36 → C.MSN 15:53 → CANRESERV 15:59 → ENRESERV 15:59
PROVIDERS: ADMIT Family Medicine; ATTEND Hospitalist
PROC: 0FT44ZZ Resection of Gallbladder, Percutaneous Endoscopic Approach (ICD-10-PCS; principal; 2017-12-27 07:30)
DX: K80.10 Calculus of gallbladder with chronic cholecystitis without obstruction (principal); I50.32 Chronic diastolic (congestive) heart failure; I48.91 Unspecified atrial fibrillation; J45.909 Unspecified asthma, uncomplicated; E11.9 Type 2 diabetes mellitus without complications; I11.9 Hypertensive heart disease without heart failure; E03.9 Hypothyroidism, unspecified; E66.01 Morbid (severe) obesity due to excess calories; Z68.30 Body mass index [BMI] 30.0-30.9, adult; N39.0 Urinary tract infection, site not specified; Z86.711 Personal history of pulmonary embolism; Z79.01 Long term (current) use of anticoagulants; B96.4 Proteus (mirabilis) (morganii) as the cause of diseases classified elsewhere; K29.50 Unspecified chronic gastritis without bleeding; Z79.82 Long term (current) use of aspirin; R79.1 Abnormal coagulation profile

== ENCOUNTER 2018-11-01 15:00 | Inpatient (IN) ==
[2018-11-01 15:43] LABS: Basophils # (auto) 0.01 K/uL (0-0.2); Basophils % (auto) 0.1 %; Eosinophils # (auto) 0.19 K/uL (0-0.5); Eosinophils % (auto) 1.8 %; Hemoglobin 13.2 g/dL (12.0-16.0); Immature Granulocytes # (auto) 0.03 K/uL (0.00-0.02); Immature Granulocytes % (auto) 0.3 %; Lymphocytes # (auto) 2.38 K/uL (1.2-3.4); Lymphocytes % (auto) 22.1 %; Mean Corpuscular Volume 103.4 fL (80-100); Mean Platelet Volume 10.8 fL (7.4-10.4); Monocytes # (auto) 1.02 K/uL (0.11-0.59); Monocytes % (auto) 9.5 %; Neutrophils # (auto) 7.14 K/uL (1.4-6.5); Neutrophils % (auto) 66.2 %; Platelet Count 246 K/uL (130-400); RDW Coefficient of Variation 15.8 % (11.5-14.5); RDW Standard Deviation 59.2 fL (36.4-46.3); Red Blood Count 3.87 M/uL (4.2-5.4); White Blood Count 10.77 K/uL (4.8-10.8)
[2018-11-01 15:58] LABS: BUN Creatinine Ratio 26.8 (10-20); Calcium 9.5 mg/dl (8.5-10.1); Creatinine Clr Calc Pharmacy 47.7 ml/min; Est GFR (African American) 45.4; Est GFR (Non-African American) 39.2
[2018-11-01 16:01] LABS: Albumin Globulin Ratio 0.7 (0.9-2); Bilirubin,Total 0.7 mg/dl (0.2-1); Globulin 4.4 gm/dl (2.5-4.0); Total Protein 7.4 gm/dl (6.4-8.2)
--- NOTE | 2018-11-01 16:17 | XRay Report ---
XR knee RT 3V CLINICAL HISTORY: 78 years-old Female presenting with trauma. TECHNIQUE: Frontal, lateral, and sunrise views of the right knee were obtained. COMPARISON: 06/09/2015. FINDINGS: Advanced tricompartmental degenerative changes with a [id number] appearance of the medial compartme nt, exuberant tricompartmental osteophytosis, subchondral sclerosis and cystic change most prominent medially and advanced lateral facet joint space loss in the patellofemoral compartment. Suspected und erlying osteopenia. Allowing for this, no displaced fracture. No acute-appearing malalignment. A knee joint effusion may be present. Diffuse subcutaneous edema noted. IMPRESSION: 1. Allowing for the degree of degenerative change and underlying osteopenia, no radiographic evidenc e of acute osseous injury. 2. Tricompartmental degenerative changes most severe in the medial compartment. These have progresse d since the prior exam. Electronically signed by: Spencer Aleman M.D. 11/01/2018 4:15 PM
--- NOTE | 2018-11-01 16:18 | XRay Report ---
XR tibia fibula RT 2V CLINICAL HISTORY: trauma pain COMPARISON: None. DISCUSSION: Generalized degenerative change. This particularly prominent in the region of the knee. N o acute bony abnormality. Generalized soft tissue edema. IMPRESSION: Degenerative change. Soft tissue edema. No acute bony abnormality. The above report was generated using voice recognition software. It may contain grammatical, syntax or spelling errors. Electronically signed by: Brain An M.D. 11/01/2018 4:16 PM
--- NOTE | 2018-11-01 16:19 | XRay Report ---
XR pelvis 1-2V routine CLINICAL HISTORY: 78 years-old Female presenting with trauma. TECHNIQUE: Single frontal view of the pelvis was obtained. COMPARISON: 06/09/2015. FINDINGS: Coil jess likely indicate prior hernia repair. Moderate stool burden. Osteopenia. Sacrum iliac rain nts, pubic symphysis, and hip joints congruent. Degenerative changes of the lower lumbar spine. Arcua te lines of the sacrum grossly intact. The bony pelvis is intact. Femoral necks grossly intact. No ad vanced degenerative changes of the hip joints. IMPRESSION: No acute osseous injury of the pelvis. Electronically signed by: Spencer Aleman M.D. 11/01/2018 4:17 PM
[2018-11-01] MEDS ORDERED: VANCOMYCIN HCL 2,500 MG in SODIUM CHLORIDE 0.9% 500 ML IV ONE (16:29)
[2018-11-01] MEDS ORDERED: VANCOMYCIN CONSULT ACTIVE ONE (16:29)
[2018-11-01] MEDS ORDERED: VANCOMYCIN CONSULT ACTIVE PRN ×2 (16:29→22:46)
[2018-11-01 16:45] LABS: Prothrombin Time 37.1 Seconds (9.0-12.0)
--- NOTE | 2018-11-01 17:53 | History & Physical Report ---
Date of Service November 01, 2018 Assessment & Plan (1) Cellulitis of right lower extremity: Presented with hx mechanical fall last week with hematoma RLE, then past couple of days developed erythema, edema, warmth. Denies fever/chills, N/V. Out patient was tarted on Augmentin 10/30/18 with no improvement, today had doxycyline added. Hx MRSA in past In ER afebrile, P: 87, R: 17, BP: 162/60, 93% on RA. WBC: 10, POC Lactic acid: 1.28. Xrays R tib/fib and R knee and pelvis are without acute fracture -In ER was given vancomycin. -blood cultures pending -zosyn, vancomycin -cbc, bmp in am (2) Atrial fibrillation: Rate controlled On Coumadin Denies palpitations, CP, SOB -continue cardizem, metoprolol -INR: 4 -hold coumadin -monitor INR (3) Diastolic CHF: Chronic diastolic CHF Does not appear significantly fluid overloaded today -continue lasix, spironolactone, metolazone -monitor bmp (4) Hypertension: -continue metoprolol, cardizem (5) Asthma: No sign of exacerbation -continue Advair, Singulair -xopenex/atrovent nebs prn SOB (6) CKD (chronic kidney disease), stage III: Cr: 1.3. At baseline -monitor renal functions (7) DM type 2 (diabetes mellitus, type 2): Diet controlled. A1c: 5.4 on 11/2017 -monitor BSGs -A1c in am -Novolog sliding scale per protocol (8) Hypothyroidism: TSH: 0.8 on 03/2018 -continue levothyroxine -TSH in am (9) Generalized anxiety disorder: -continue (10) GERD (gastroesophageal reflux disease): -continue PPI, carafate (11) Chronic pain: -continue fentanyl patch, tramadol, lyrica (12) Hyperuricemia: -continue allopurinol, colchicine High MCV with normal Hb Will check TSH,B12 and Folate level DVT Prophylaxis -On Coumadin with INR: 4 Full Code as per discussion with pt Follows with Dr Lemus at [facility] for routine care Pt was seen with Dr Arrieta. See addendum History of Present Illness Chief Complaint: R Leg erythema Primary Care Provider: Viry Lemus Pt is 78 y/o F with PMH a-fib on coumadin, h/o PE, obesity hypoventilation syndrome, asthma, COPD, chronic diastolic HF, anxiety, HTN, hyperuricemia, CKD III, h/o MRSA presented to ER from [facility] for RLE edema, erythema, warmth over the past several days. Pt reports fall last week had mechanical fall and has ecchymosis to R knee and R lower lateral leg, then developed redness. Reports chronic BLE edema, however increased to RLE with associated erythema. Reports still able to ambulate but has some pain. Was started on Augementin BID on 10/30/18. Today noticed no improvement and Doxycyline was started and pt referred to ER. Denies any fever/chills, N/V. Denies diaphoresis , diarrhea, constipation, KUMARI, dizziness, syncope, vision changes, neck pain, CP , SOB, orthopnea, palpitations, cough, sore throat, choking, otalgia, rhinorrhea , abdominal pain, paresthesias, weakness, other rashes, urinary symptoms. Allergies Allergy/AdvReac Type Severity Reaction Status Date / Time meperidine [From Demerol] Allergy Unknown ON [facility] Verified 11/01/18 15:46 [place] morphine AdvReac Intermediate vomiting Verified 11/01/18 15:46 oxycodone AdvReac Intermediate vomit blood Verified 11/01/18 15:46 propoxyphene AdvReac Intermediate abd vomit Verified 11/01/18 15:46 blood tramadol AdvReac Intermediate vomiting Verified 11/01/18 15:46 Bactrim AdvReac Mild GI SYMPTOMS Verified 03/06/18 21:06 codeine AdvReac Mild vomiting Verified 11/01/18 15:46 olmesartan AdvReac Mild GI SYMPTOMS Verified 11/01/18 15:46 Sulfa (Sulfonamide AdvReac Mild GI SYMPTOMS Verified 11/01/18 15:46 Antibiotics) sulfamethoxazole AdvReac Mild GI SYMPTOMS Verified 11/01/18 15:46 trimethoprim AdvReac Mild GI SYMPTOMS Verified 11/01/18 15:46 carisoprodol AdvReac Unknown GI SYMPTOMS Verified 11/01/18 15:46 Home Medications Home Medications Medication Instructions Recorded Confirmed Type acetaminophen 650 mg UT Q6H PRN 11/01/18 11/01/18 History acetaminophen [Tylenol] 650 mg PO Q4 PRN 11/01/18 11/01/18 History allopurinol 200 mg PO QAM 11/01/18 11/01/18 History amoxicillin-pot clavulanate 1 tab PO ONCE 11/01/18 11/01/18 History [Augmentin] bisacodyl [Dulcolax (bisacodyl)] 10 mg UT DAILY PRN 11/01/18 11/01/18 History buspirone 15 mg PO AMHS 11/01/18 11/01/18 History carboxymethylcellulose sodium 1 drp OPB BID 11/01/18 11/01/18 History [Refresh Tears] colchicine 0.6 mg PO QAM 11/01/18 11/01/18 History diltiazem HCl [Cardizem CD] 240 mg PO QAM 11/01/18 11/01/18 History docusate sodium [Colace] 100 mg PO AMHS 11/01/18 11/01/18 History doxycycline hyclate 100 mg PO BID 11/01/18 11/01/18 History duloxetine 60 mg PO QAM 11/01/18 11/01/18 History fentanyl 1 patch TRANSDERMAL Q72H 11/01/18 11/01/18 History ferrous sulfate 325 mg PO AMHS 11/01/18 11/01/18 History fluticasone-salmeterol [Advair 1 inh INHALATION AMHS 11/01/18 11/01/18 History Diskus] furosemide [Lasix] 40 mg PO AMPM 11/01/18 11/01/18 History fgjd-zonie-[id number]-[id number]-jxc-aucm-st 1 tab PO PC 11/01/18 11/01/18 History [Glucosamine Chondroitin PLUS] ipratropium-albuterol 3 ml INHALATION Q4 PRN 11/01/18 11/01/18 History levothyroxine 75 mcg PO DAILYBB 11/01/18 11/01/18 History lorazepam 0.5 mg PO TID PRN 11/01/18 11/01/18 History magnesium hydroxide [Milk of 30 ml PO DAILY PRN 11/01/18 11/01/18 History Magnesia] magnesium oxide 250 mg PO QAM 11/01/18 11/01/18 History meclizine 25 mg PO TID PRN 11/01/18 11/01/18 History melatonin 10 mg PO HS 11/01/18 11/01/18 History metolazone 2.5 mg PO 2XWK 11/01/18 11/01/18 History metoprolol tartrate 25 mg PO AMPM 11/01/18 11/01/18 History miconazole nitrate [Desenex] 1 applic TOPICAL BID 11/01/18 11/01/18 History montelukast 10 mg PO PM 11/01/18 11/01/18 History ondansetron HCl [Zofran] 8 mg PO Q8 PRN 11/01/18 11/01/18 History pantoprazole 20 mg PO DAILYBB 11/01/18 11/01/18 History polyethylene glycol 3350 [Miralax] 17 g PO Q OTHER DAY 11/01/18 11/01/18 History potassium chloride 40 meq PO AMPM 11/01/18 11/01/18 History pregabalin [Lyrica] 50 mg PO PC 11/01/18 11/01/18 History sennosides [Senna-Gen] 8.6 mg PO AMHS 11/01/18 11/01/18 History simethicone [Gas-X Ultra-Strength] 180 mg PO PC 11/01/18 11/01/18 History sodium phosphates [Fleet Enema] 118 ml UT DAILY PRN 11/01/18 11/01/18 History spironolactone 25 mg PO QAM 11/01/18 11/01/18 History sucralfate 1 g PO AMPM 11/01/18 11/01/18 History tramadol 50 mg PO QID 11/01/18 11/01/18 History trazodone 50 mg PO HS 11/01/18 11/01/18 History warfarin [Coumadin] 1.5 mg PO 4XWK 11/01/18 11/01/18 History warfarin [Coumadin] 3 mg PO 3XWK 11/01/18 11/01/18 History Past Med/Surg History Medical History CKD (chronic kidney disease), stage III (Chronic) GERD (gastroesophageal reflux disease) (Chronic) DJD (degenerative joint disease), multiple sites (Chronic) Arthritis (Chronic) Asthma (Chronic) Atrial fibrillation (Chronic) Diastolic CHF (Chronic) On 02/12/16 22:20 Ellie Bains wrote "per echo 09/30/15- EF 60-65%, mod LVH, mod MR, mod TR, dilated RV" DM type 2 (diabetes mellitus, type 2) (Chronic) Hypertension (Chronic) Hypothyroidism (Chronic) Chronic pain (Chronic) Stenosis of right carotid artery (Chronic) History of pulmonary embolism (Chronic) Chronic gastritis (Chronic) Chronic back pain (Chronic) Generalized anxiety disorder (Chronic) Obesity (BMI 30-39.9) (Chronic) DM2 (diabetes mellitus, type 2) (Chronic) HTN (hypertension) (Chronic) Surgical History History of hernia repair (Resolved) History of cholecystectomy (Resolved) Family History Other Diabetes HTN (hypertension) Social History Current Living Situation: Personal Care Facility Other Information That Helps Us Care for You: No Feels Safe at Home: Yes Safety Concerns: Feels Safe At This Time Smoking Status: Never smoker Hx Alcohol Use: No Hx Substance Use: No Beliefs That Will Affect Care: None Preferred Language: Lithuanian Communication Ability: Effective Supervisor Channel Process Required: No Review of Systems All systems reviewed & are unremarkable except as noted in HPI & below Physical Exam 2 Vital Signs (Past 24 Hours): Last Vital Signs Temp 37.0 C 11/01/18 14:43 Pulse 87 11/01/18 14:43 Resp 17 11/01/18 14:43 BP 162/60 H 11/01/18 14:43 Pulse Ox 93 11/01/18 14:43 Physical Exam: General: no distress, obese Head: normocephalic, atraumatic Eyes: conjunctiva non-injected, anicteric ENT: normal inspection external ears, nose, mucous membranes moist Neck: supple, trachea midline, non-tender Lungs: clear, no respiratory distress, no wheezing/rhonchi/rales CV: irregularly irregular, rate 90 Abd: normal BS, distended secondary to adipose tissue, soft, non-tender Ext: RLE: R knee with ecchymosis, right lateral leg just inferior to knee with hematoma, mild tenderness to palpation, +erythema & edema from knee to foot with warmth LLE: non-tender, edema 1+ Neuro: A&O x 3, no focal deficits noted, normal affect Skin: warm, dry Results & Data Laboratory Results Short CBC 11/01/18 Range/Units 15:15 WBC 10.77 (4.8-10.8) K/uL Hgb 13.2 (12.0-16.0) g/dL Hct 40.0 (37-47) % Plt Count 246 (130-400) K/uL BMP 11/01/18 15:15 Sodium 135 L Potassium 5.0 Chloride 98 Carbon Dioxide 32 BUN 35 H Creatinine 1.31 H Glucose 123 H Calcium 9.5 Liver Function 11/01/18 Range/Units 15:15 Total Bilirubin 0.7 (0.2-1) mg/dl AST 12 L (15-37) U/L ALT 14 (12-78) U/L Alkaline Phosphatase 130 H (45-117) U/L Albumin 3.0 L (3.4-5.0) gm/dl POC LACTIC ACID 1.28 (0.9-1.7) Diagnostic Findings R KNEE XRAY: IMPRESSION: 1. Allowing for the degree of degenerative change and underlying osteopenia, no radiographic evidence of acute osseous injury. 2. Tricompartmental degenerative changes most severe in the medial compartment. These have progressed since the prior exam. R TIBIA/FIBULA XRAY: IMPRESSION: Degenerative change. Soft tissue edema. No acute bony abnormality. PELVIS XRAY: IMPRESSION: No acute osseous injury of the pelvis. ECG Rate (beats per minute): 81 Rhythm: atrial fibrillation Supervising Physician Co-Signing Physician Notes The patient wass een and examined in ER Pt is 78 y/o F with PMH a-fib on coumadin, h/o PE, obesity hypoventilation syndrome, asthma, COPD, chronic diastolic HF, anxiety, HTN, hyperuricemia, CKD III, h/o MRSA presented to ER from [facility] for RLE edema, erythema, warmth over the past several days. Has ahd a fall recently and has been on Aoumentin since 10/30 Increasing swelling and redness with pain and warmth On Examined No apparent distress Hemodynamically stable Chest-decreasing breath sound bilaterally,no wheezing and or crackles Heart-irregular Abdomen-benign Extremities-Edema both legs Righgt more than the left Increasing redness,warmth and tenderness upto the knee Bruising lateral side if the right knee Labs and imaging stadies reviewed Agree with the assessment and plan as outlined above by SLIM Beltre Dr.
--- NOTE | 2018-11-01 20:30 | Emergency Department Note ---
Entered by Jess Gaming acting as a scribe for Ragini Nation DO History of Present Illness General Chief complaint: Leg Injury/Pain Time Seen by Provider: 11/01/18 15:02 Source: patient, EMS and other ([facility] notes) History of Present Illness Provider complaint: right leg cellulitis Onset (ago): week(s) 1 Location: lower extremity and right Quality: + other (cellulitis) Associated symptoms: + denies other symptoms (numbness, tingling); no chest pain , no fever/chills, no nausea/vomiting and no shortness of breath The patient is a 78 year old female who presents to the Emergency Room with complaints of right leg cellulitis that began 1 week ago. The patient states that she fell about 1 week ago and states that she turned around and fell suddenly onto her side. Patient denies prodromal symptoms suggestive of syncope. Denies LOC with the event. She states that she was checked out after she fell and states that her right leg hurt after her fall. She reports that she had X-Rays taken last night of her right leg. The patient reports a history of left leg cellulitis but states that this current cellulitis is worse. She denies having chest pain, fevers, chills, nausea, vomiting, shortness of breath , numbness, tingling, or light-headedness. She states that she has been on Augmentin for the last 6 days. She states that she also just started Doxycycline today. Per EMS, the patient fell on October 23 and developed a bump on October 25. EMS states that the patient has right leg cellulitis and has had this before. EMS states that the patient is from [facility]. EMS states that the patient denied having chest pain or shortness of breath. Notes show that the patient was on Augmentin for cellulitis. Home Medications Home Medications Medication Instructions Recorded Confirmed Type acetaminophen 650 mg IN Q6H PRN 11/01/18 11/01/18 History acetaminophen [Tylenol] 650 mg PO Q4 PRN 11/01/18 11/01/18 History allopurinol 200 mg PO QAM 11/01/18 11/01/18 History amoxicillin-pot clavulanate 1 tab PO ONCE 11/01/18 11/01/18 History [Augmentin] bisacodyl [Dulcolax (bisacodyl)] 10 mg IN DAILY PRN 11/01/18 11/01/18 History buspirone 15 mg PO AMHS 11/01/18 11/01/18 History carboxymethylcellulose sodium 1 drp OPB BID 11/01/18 11/01/18 History [Refresh Tears] colchicine 0.6 mg PO QAM 11/01/18 11/01/18 History diltiazem HCl [Cardizem CD] 240 mg PO QAM 11/01/18 11/01/18 History docusate sodium [Colace] 100 mg PO AMHS 11/01/18 11/01/18 History doxycycline hyclate 100 mg PO BID 11/01/18 11/01/18 History duloxetine 60 mg PO QAM 11/01/18 11/01/18 History fentanyl 1 patch TRANSDERMAL Q72H 11/01/18 11/01/18 History ferrous sulfate 325 mg PO AMHS 11/01/18 11/01/18 History fluticasone-salmeterol [Advair 1 inh INHALATION AMHS 11/01/18 11/01/18 History Diskus] furosemide [Lasix] 40 mg PO AMPM 11/01/18 11/01/18 History [id number]-st 1 tab PO PC 11/01/18 11/01/18 History [Glucosamine Chondroitin PLUS] ipratropium-albuterol 3 ml INHALATION Q4 PRN 11/01/18 11/01/18 History levothyroxine 75 mcg PO DAILYBB 11/01/18 11/01/18 History lorazepam 0.5 mg PO TID PRN 11/01/18 11/01/18 History magnesium hydroxide [Milk of 30 ml PO DAILY PRN 11/01/18 11/01/18 History Magnesia] magnesium oxide 250 mg PO QAM 11/01/18 11/01/18 History meclizine 25 mg PO TID PRN 11/01/18 11/01/18 History melatonin 10 mg PO HS 11/01/18 11/01/18 History metolazone 2.5 mg PO 2XWK 11/01/18 11/01/18 History metoprolol tartrate 25 mg PO AMPM 11/01/18 11/01/18 History miconazole nitrate [Desenex] 1 applic TOPICAL BID 11/01/18 11/01/18 History montelukast 10 mg PO PM 11/01/18 11/01/18 History ondansetron HCl [Zofran] 8 mg PO Q8 PRN 11/01/18 11/01/18 History pantoprazole 20 mg PO DAILYBB 11/01/18 11/01/18 History polyethylene glycol 3350 [Miralax] 17 g PO Q OTHER DAY 11/01/18 11/01/18 History potassium chloride 40 meq PO AMPM 11/01/18 11/01/18 History pregabalin [Lyrica] 50 mg PO PC 11/01/18 11/01/18 History sennosides [Senna-Gen] 8.6 mg PO AMHS 11/01/18 11/01/18 History simethicone [Gas-X Ultra-Strength] 180 mg PO PC 11/01/18 11/01/18 History sodium phosphates [Fleet Enema] 118 ml IN DAILY PRN 11/01/18 11/01/18 History spironolactone 25 mg PO QAM 11/01/18 11/01/18 History sucralfate 1 g PO AMPM 11/01/18 11/01/18 History tramadol 50 mg PO QID 11/01/18 11/01/18 History trazodone 50 mg PO HS 11/01/18 11/01/18 History warfarin [Coumadin] 1.5 mg PO 4XWK 11/01/18 11/01/18 History warfarin [Coumadin] 3 mg PO 3XWK 11/01/18 11/01/18 History Allergies Allergy/AdvReac Type Severity Reaction Status Date / Time meperidine [From Demerol] Allergy Unknown ON WINDY Verified 11/01/18 15:46 HILL LIST morphine AdvReac Intermediate vomiting Verified 11/01/18 15:46 oxycodone AdvReac Intermediate vomit blood Verified 11/01/18 15:46 propoxyphene AdvReac Intermediate abd vomit Verified 11/01/18 15:46 blood tramadol AdvReac Intermediate vomiting Verified 11/01/18 15:46 Bactrim AdvReac Mild GI SYMPTOMS Verified 03/06/18 21:06 codeine AdvReac Mild vomiting Verified 11/01/18 15:46 olmesartan AdvReac Mild GI SYMPTOMS Verified 11/01/18 15:46 Sulfa (Sulfonamide AdvReac Mild GI SYMPTOMS Verified 11/01/18 15:46 Antibiotics) sulfamethoxazole AdvReac Mild GI SYMPTOMS Verified 11/01/18 15:46 trimethoprim AdvReac Mild GI SYMPTOMS Verified 11/01/18 15:46 carisoprodol AdvReac Unknown GI SYMPTOMS Verified 11/01/18 15:46 Past Med/Surg History Medical History CKD (chronic kidney disease), stage III (Chronic) GERD (gastroesophageal reflux disease) (Chronic) DJD (degenerative joint disease), multiple sites (Chronic) Arthritis (Chronic) Asthma (Chronic) Atrial fibrillation (Chronic) Diastolic CHF (Chronic) On 02/12/16 22:20 Ellie Bains wrote "per echo 09/30/15- EF 60-65%, mod LVH, mod MR, mod TR, dilated RV" DM type 2 (diabetes mellitus, type 2) (Chronic) Hypertension (Chronic) Hypothyroidism (Chronic) Chronic pain (Chronic) Stenosis of right carotid artery (Chronic) History of pulmonary embolism (Chronic) Chronic gastritis (Chronic) Chronic back pain (Chronic) Generalized anxiety disorder (Chronic) Obesity (BMI 30-39.9) (Chronic) DM2 (diabetes mellitus, type 2) (Chronic) HTN (hypertension) (Chronic) Surgical History History of hernia repair (Resolved) History of cholecystectomy (Resolved) Family History Other Diabetes HTN (hypertension) Social History Current Living Situation: Personal Care Facility Other Information That Helps Us Care for You: No Feels Safe at Home: Yes Safety Concerns: Feels Safe At This Time Smoking Status: Never smoker Hx Alcohol Use: No Hx Substance Use: No Beliefs That Will Affect Care: None Communication Ability: Effective Review of Systems See HPI for pertinent positives & negatives. and A total of 10 systems reviewed and were otherwise negative Physical Exam Vital Signs Vital Signs - 24 hr 11/01/18 14:43 11/01/18 16:43 11/01/18 18:00 Temperature 37.0 C Temperature Source Oral Sepsis Recent Fever Within 48 Hours No Sepsis New/Unexplained Change in Mental Status No Sepsis Action Taken by Nursing No Action Required Pulse Rate 87 Pulse Rate [Left Finger] 90 92 H Respiratory Rate 17 20 18 Respiratory Effort / Characteristics Non-Labored Spontaneous Non-Labored Spontaneous Non-Labored Spontaneous Respiratory Depth Normal Normal Normal Respiratory Pattern Regular Regular Regular Blood Pressure 162/60 H Blood Pressure [Left Arm] 106/68 108/65 Blood Pressure Mean 94 Blood Pressure Mean [Left Arm] 80 79 Blood Pressure Position Lying Blood Pressure Position [Left Arm] Lying Lying Pulse Oximetry 93 94 94 Oxygen Delivery Method Room Air Room Air Room Air 11/01/18 19:59 11/01/18 20:31 11/01/18 20:40 Temperature 36.3 C L Temperature Source Oral Sepsis Recent Fever Within 48 Hours Sepsis New/Unexplained Change in Mental Status Sepsis Action Taken by Nursing Pulse Rate 90 Pulse Rate [Left Finger] 94 H 62 Respiratory Rate 19 15 24 Respiratory Effort / Characteristics Non-Labored Spontaneous Respiratory Depth Normal Respiratory Pattern Blood Pressure 102/68 Blood Pressure [Left Arm] 102/68 141/99 H Blood Pressure Mean Blood Pressure Mean [Left Arm] 79 113 Blood Pressure Position Blood Pressure Position [Left Arm] Pulse Oximetry 94 94 96 Oxygen Delivery Method Room Air Room Air Room Air 11/01/18 20:48 11/02/18 00:47 11/02/18 04:00 Temperature 36.3 C L 36 C L 36.9 C Temperature Source Oral Oral Oral Sepsis Recent Fever Within 48 Hours Sepsis New/Unexplained Change in Mental Status Sepsis Action Taken by Nursing Pulse Rate Pulse Rate [Left Finger] 62 91 H 87 Respiratory Rate 22 16 18 Respiratory Effort / Characteristics Respiratory Depth Respiratory Pattern Blood Pressure Blood Pressure [Left Arm] 141/99 H 113/74 130/76 Blood Pressure Mean Blood Pressure Mean [Left Arm] 113 87 94 Blood Pressure Position Blood Pressure Position [Left Arm] Lying Pulse Oximetry 96 92 92 Oxygen Delivery Method Room Air 11/02/18 08:01 Temperature 36.6 C Temperature Source Oral Sepsis Recent Fever Within 48 Hours Sepsis New/Unexplained Change in Mental Status Sepsis Action Taken by Nursing Pulse Rate Pulse Rate [Left Finger] 80 Respiratory Rate 20 Respiratory Effort / Characteristics Respiratory Depth Respiratory Pattern Blood Pressure Blood Pressure [Left Arm] 131/83 Blood Pressure Mean Blood Pressure Mean [Left Arm] 99 Blood Pressure Position Blood Pressure Position [Left Arm] Lying Pulse Oximetry 90 Oxygen Delivery Method Room Air GENERAL: alert, well appearing, well nourished, no distress, non-toxic, morbidly obese HEAD: NC/AT EYE EXAM: normal conjunctiva, PERRL and EOM's grossly intact OROPHARYNX: no exudate, no erythema, lips, buccal mucosa, and tongue normal and mucous membranes are moist NECK: supple, no nuchal rigidity, no adenopathy, non-tender LUNGS: Clear to auscultation. Normal chest wall mechanics, no w/r/r HEART: no murmurs, S1 normal and S2 normal ABDOMEN: abdomen soft, non-tender, normo-active bowel sounds, no masses, no rebound or guarding. BACK: Back is symmetrical on inspection and there is no deformity, no midline tenderness, no CVA tenderness. SKIN: scattered areas of ecchymosis in various stages of healing UPPER EXTREMITIES: upper extremities are grossly normal. Normal pulses bilaterally. LOWER EXTREMITIES: Severe erythema and edema noted, starting in area of knee and distal down to dorsal aspect of the foot. Normal sensation. Areas of ecchymosis noted as well, consistent with recent fall. Decreased range of motion secondary to pain. NEURO EXAM: Normal sensorium, cranial nerves II-XII intact, normal speech, no weakness of arms, no weakness of legs. No facial droop. Course 1504: Past medical records reviewed. The patient was evaluated in room C6, and a complete history and physical examination were performed. 1650: I updated the patient who verbalized agreement and understanding of the treatment plan. 1654: I discussed the patient's case with Miranda Maguire who will evaluate the patient for further management. Consultations Consultation #1: Miranda Maguire Time: 16:54 Administered Medications Allopurinol (Zyloprim) 200 mg PO QAM [facility] Stop: 12/02/18 08:59 Last Admin: 11/02/18 08:29 Dose: 200 mg Artificial Tears (Artificial Tears) 1 drops OPB BID [facility] Stop: 12/02/18 08:59 Last Admin: 11/02/18 08:32 Dose: 1 drops Buspirone HCl (Buspar) 15 mg PO BID [facility] Stop: 12/01/18 20:59 Last Admin: 11/02/18 08:28 Dose: 15 mg Admin: 11/01/18 22:54 Dose: 15 mg Colchicine (Colcrys) 0.6 mg PO QAM [facility] Stop: 12/02/18 08:59 Last Admin: 11/02/18 08:29 Dose: 0.6 mg Diltiazem HCl (Cardizem Cd) 240 mg PO QAM [facility] Stop: 12/02/18 08:59 Last Admin: 11/02/18 08:29 Dose: 240 mg Docusate Sodium (Colace) 100 mg PO BID [facility] Stop: 12/01/18 20:59 Last Admin: 11/02/18 08:29 Dose: 100 mg Admin: 11/01/18 22:56 Dose: 100 mg Duloxetine HCl (Cymbalta) 60 mg PO QAM [facility] Stop: 12/02/18 08:59 Last Admin: 11/02/18 08:29 Dose: 60 mg Ferrous Sulfate (Feosol) 325 mg PO BID [facility] Stop: 12/01/18 20:59 Last Admin: 11/02/18 08:29 Dose: 325 mg Admin: 11/01/18 22:57 Dose: 325 mg Furosemide (Lasix) 40 mg PO BID [facility] Stop: 12/01/18 20:59 Last Admin: 11/02/18 08:28 Dose: 40 mg Admin: 11/01/18 22:54 Dose: 40 mg Piperacillin Sod/Tazobactam (Sod 4.5 gm/ Dextrose) 120 mls @ 30 mls/hr IV Q8H [facility]; Protocol Stop: 11/12/18 03:59 Last Infusion: 11/02/18 08:34 Dose: Admin: 11/02/18 03:46 Dose: 30 mls/hr Vancomycin HCl 1,500 mg/ (Sodium Chloride) 530 mls @ 200 mls/hr IV Q16H [facility] Stop: 11/12/18 09:59 Last Admin: 11/02/18 11:32 Dose: 200 mls/hr Insulin Aspart (Novolog Flexpen) 0 units SC ACHS [facility] Stop: 12/01/18 20:59 Last Admin: 11/02/18 08:31 Dose: Not Given Admin: 11/01/18 22:59 Dose: Not Given Levothyroxine Sodium (Synthroid) 75 mcg PO DAILYBB [facility] Stop: 12/02/18 06:29 Last Admin: 11/02/18 05:56 Dose: 75 mcg Magnesium Oxide (Mag-Ox) 400 mg PO QAM [facility] Stop: 12/02/18 08:59 Last Admin: 11/02/18 08:29 Dose: 400 mg Metoprolol Tartrate (Lopressor) 25 mg PO BID [facility] Stop: 12/01/18 20:59 Last Admin: 11/02/18 08:28 Dose: 25 mg Admin: 11/01/18 22:53 Dose: 25 mg Miscellaneous (Fentanyl Patch Check Placement) 1 ea N/A QS [facility] Stop: 12/02/18 07:59 Last Admin: 11/02/18 08:30 Dose: 1 ea Montelukast Sodium (Singulair) 10 mg PO PM [facility] Stop: 12/01/18 20:59 Last Admin: 11/01/18 22:55 Dose: 10 mg Pantoprazole Sodium (Protonix) 40 mg PO DAILYBB [facility] Stop: 12/02/18 06:29 Last Admin: 11/02/18 05:56 Dose: 40 mg Potassium Chloride (Klor-Con M20) 40 meq PO BID [facility] Stop: 12/01/18 20:59 Last Admin: 11/02/18 08:28 Dose: 40 meq Admin: 11/01/18 22:55 Dose: 40 meq Pregabalin (Lyrica) 50 mg PO TID [facility] Stop: 12/01/18 20:59 Last Admin: 11/02/18 08:34 Dose: 50 mg Admin: 11/01/18 22:59 Dose: 50 mg Fluticasone/Salmeterol (Advair Diskus 500/50) 1 puffs INH BID [facility] Stop: 12/01/18 20:59 Last Admin: 11/02/18 08:30 Dose: 1 puffs Admin: 11/01/18 22:57 Dose: 1 puffs Sennosides (Senokot) 8.6 mg PO BID [facility] Stop: 12/01/18 20:59 Last Admin: 11/02/18 08:29 Dose: 8.6 mg Admin: 11/01/18 22:55 Dose: 8.6 mg Spironolactone (Aldactone) 25 mg PO QAM [facility] Stop: 12/02/18 08:59 Last Admin: 11/02/18 08:29 Dose: 25 mg Sucralfate (Carafate Tab) 1 gm PO BID [facility] Stop: 12/01/18 20:59 Last Admin: 11/02/18 08:29 Dose: 1 gm Admin: 11/01/18 22:56 Dose: 1 gm Tramadol HCl (Ultram) 50 mg PO QID [facility] Stop: 12/01/18 20:59 Last Admin: 11/02/18 08:44 Dose: 50 mg Admin: 11/01/18 22:59 Dose: 50 mg Trazodone HCl (Desyrel) 50 mg PO HS [facility] Stop: 12/01/18 20:59 Last Admin: 11/01/18 22:53 Dose: 50 mg Discontinued Medications Vancomycin HCl 2,500 mg/ (Sodium Chloride) 550 mls @ 200 mls/hr IV NOW ONE Stop: 11/01/18 19:13 Last Infusion: 11/01/18 20:16 Dose: 0 mls/hr Admin: 11/01/18 17:28 Dose: 200 mls/hr Piperacillin Sod/Tazobactam (Sod 4.5 gm/ Dextrose) 120 mls @ 200 mls/hr IV NOW ONE; Protocol Stop: 11/01/18 23:05 Last Infusion: 11/02/18 02:32 Dose: 0 mls/hr Admin: 11/01/18 23:02 Dose: 200 mls/hr Non-Formulary Medication (Carboxymethylcellulose Sodium [Refresh Tears]) 1 drops OPB BID [facility] Stop: 12/01/18 20:59 Last Admin: 11/02/18 02:19 Dose: Not Given Medical Decision Making Differential Diagnosis Differential diagnosis: Etiologies such as cellulitis, abscess, osteomyelitis, MRSA infection, DVT, necrotizing fasciitis, dermatitis, drug eruption, as well as others were entertained. Medical Records Attestation: I reviewed the patient's medical records. Home Medications Current Medication List: was personally reviewed by me Laboratory Data Attestation: I reviewed the patient's lab results. Result diagrams: 11/02/18 06:11 11/02/18 06:11 Lab Results 11/01/18 11/01/18 11/01/18 Range/Units 15:15 15:15 15:15 WBC 10.77 (4.8-10.8) K/uL RBC 3.87 L (4.2-5.4) M/uL Hgb 13.2 (12.0-16.0) g/dL Hct 40.0 (37-47) % MCV 103.4 H (80-100) fL MCH 34.1 H (25-34) pg MCHC 33.0 (32-36) g/dL RDW Std Deviation 59.2 H (36.4-46.3) fL RDW Coeff of Kenneth 15.8 H (11.5-14.5) % Plt Count 246 (130-400) K/uL MPV 10.8 H (7.4-10.4) fL Immature Gran % (Auto) 0.3 % Neut % (Auto) 66.2 % Lymph % (Auto) 22.1 % Moore % (Auto) 9.5 % Eos % (Auto) 1.8 % Baso % (Auto) 0.1 % Immature Gran # (Auto) 0.03 H (0.00-0.02) K/uL Neut # (Auto) 7.14 H (1.4-6.5) K/uL Lymph # (Auto) 2.38 (1.2-3.4) K/uL Moore # (Auto) 1.02 H (0.11-0.59) K/uL Eos # (Auto) 0.19 (0-0.5) K/uL Baso # (Auto) 0.01 (0-0.2) K/uL PT Cancelled INR Cancelled Sodium 135 L (136-145) mmol/L Potassium 5.0 (3.5-5.1) mmol/L Chloride 98 (98-107) mmol/L Carbon Dioxide 32 (21-32) mmol/L Anion Gap 5.0 (3-11) BUN 35 H (7-18) mg/dl Creatinine 1.31 H (0.6-1.2) mg/dl Est Cr Clr Drug Dosing 47.7 ml/min Est GFR ( Amer) 45.4 Est GFR (Non-Af Amer) 39.2 BUN/Creatinine Ratio 26.8 H (10-20) Glucose 123 H (70-99) mg/dl Estimat Average Glucose mg/dl Hemoglobin A1c (4.5-5.6) % POC Lactic Acid Yunior (0.90-1.70) mmol/L Calcium 9.5 (8.5-10.1) mg/dl Magnesium (1.8-2.4) mg/dl Total Bilirubin 0.7 (0.2-1) mg/dl AST 12 L (15-37) U/L ALT 14 (12-78) U/L Alkaline Phosphatase 130 H (45-117) U/L Total Protein 7.4 (6.4-8.2) gm/dl Albumin 3.0 L (3.4-5.0) gm/dl Globulin 4.4 H (2.5-4.0) gm/dl Albumin/Globulin Ratio 0.7 L (0.9-2) Vitamin B12 (211-911) pg/ml Folate (>5.38) ng/ml TSH (0.300-4.500) uIu/ml 11/01/18 11/01/18 11/02/18 Range/Units 15:20 16:24 06:11 WBC 6.79 (4.8-10.8) K/uL RBC 3.46 L (4.2-5.4) M/uL Hgb 11.6 L (12.0-16.0) g/dL Hct 35.3 L (37-47) % MCV 102.0 H (80-100) fL MCH 33.5 (25-34) pg MCHC 32.9 (32-36) g/dL RDW Std Deviation 58.3 H (36.4-46.3) fL RDW Coeff of Kenneth 15.9 H (11.5-14.5) % Plt Count 202 (130-400) K/uL MPV 11.0 H (7.4-10.4) fL Immature Gran % (Auto) % Neut % (Auto) % Lymph % (Auto) % Moore % (Auto) % Eos % (Auto) % Baso % (Auto) % Immature Gran # (Auto) (0.00-0.02) K/uL Neut # (Auto) (1.4-6.5) K/uL Lymph # (Auto) (1.2-3.4) K/uL Moore # (Auto) (0.11-0.59) K/uL Eos # (Auto) (0-0.5) K/uL Baso # (Auto) (0-0.2) K/uL PT 37.1 H INR 4.0 H Sodium (136-145) mmol/L Potassium (3.5-5.1) mmol/L Chloride (98-107) mmol/L Carbon Dioxide (21-32) mmol/L Anion Gap (3-11) BUN (7-18) mg/dl Creatinine (0.6-1.2) mg/dl Est Cr Clr Drug Dosing ml/min Est GFR ( Amer) Est GFR (Non-Af Amer) BUN/Creatinine Ratio (10-20) Glucose (70-99) mg/dl Estimat Average Glucose mg/dl Hemoglobin A1c (4.5-5.6) % POC Lactic Acid Yunior 1.28 (0.90-1.70) mmol/L Calcium (8.5-10.1) mg/dl Magnesium (1.8-2.4) mg/dl Total Bilirubin (0.2-1) mg/dl AST (15-37) U/L ALT (12-78) U/L Alkaline Phosphatase (45-117) U/L Total Protein (6.4-8.2) gm/dl Albumin (3.4-5.0) gm/dl Globulin (2.5-4.0) gm/dl Albumin/Globulin Ratio (0.9-2) Vitamin B12 (211-911) pg/ml Folate (>5.38) ng/ml TSH (0.300-4.500) uIu/ml 11/02/18 11/02/18 11/02/18 Range/Units 06:11 06:11 06:11 WBC (4.8-10.8) K/uL RBC (4.2-5.4) M/uL Hgb (12.0-16.0) g/dL Hct (37-47) % MCV (80-100) fL MCH (25-34) pg MCHC (32-36) g/dL RDW Std Deviation (36.4-46.3) fL RDW Coeff of Kenneth (11.5-14.5) % Plt Count (130-400) K/uL MPV (7.4-10.4) fL Immature Gran % (Auto) % Neut % (Auto) % Lymph % (Auto) % Moore % (Auto) % Eos % (Auto) % Baso % (Auto) % Immature Gran # (Auto) (0.00-0.02) K/uL Neut # (Auto) (1.4-6.5) K/uL Lymph # (Auto) (1.2-3.4) K/uL Moore # (Auto) (0.11-0.59) K/uL Eos # (Auto) (0-0.5) K/uL Baso # (Auto) (0-0.2) K/uL PT 35.3 H INR 3.8 H Sodium 137 (136-145) mmol/L Potassium 4.0 D (3.5-5.1) mmol/L Chloride 101 (98-107) mmol/L Carbon Dioxide 29 (21-32) mmol/L Anion Gap 8.0 (3-11) BUN 30 H (7-18) mg/dl Creatinine 1.16 (0.6-1.2) mg/dl Est Cr Clr Drug Dosing 54.1 ml/min Est GFR ( Amer) 52.6 Est GFR (Non-Af Amer) 45.4 BUN/Creatinine Ratio 25.7 H (10-20) Glucose 114 H (70-99) mg/dl Estimat Average Glucose 131 mg/dl Hemoglobin A1c 6.2 H (4.5-5.6) % POC Lactic Acid Yunior (0.90-1.70) mmol/L Calcium 8.8 (8.5-10.1) mg/dl Magnesium 2.2 (1.8-2.4) mg/dl Total Bilirubin (0.2-1) mg/dl AST (15-37) U/L ALT (12-78) U/L Alkaline Phosphatase (45-117) U/L Total Protein (6.4-8.2) gm/dl Albumin (3.4-5.0) gm/dl Globulin (2.5-4.0) gm/dl Albumin/Globulin Ratio (0.9-2) Vitamin B12 (211-911) pg/ml Folate (>5.38) ng/ml TSH 1.610 (0.300-4.500) uIu/ml 11/02/18 Range/Units 06:11 WBC (4.8-10.8) K/uL RBC (4.2-5.4) M/uL Hgb (12.0-16.0) g/dL Hct (37-47) % MCV (80-100) fL MCH (25-34) pg MCHC (32-36) g/dL RDW Std Deviation (36.4-46.3) fL RDW Coeff of Kenneth (11.5-14.5) % Plt Count (130-400) K/uL MPV (7.4-10.4) fL Immature Gran % (Auto) % Neut % (Auto) % Lymph % (Auto) % Moore % (Auto) % Eos % (Auto) % Baso % (Auto) % Immature Gran # (Auto) (0.00-0.02) K/uL Neut # (Auto) (1.4-6.5) K/uL Lymph # (Auto) (1.2-3.4) K/uL Moore # (Auto) (0.11-0.59) K/uL Eos # (Auto) (0-0.5) K/uL Baso # (Auto) (0-0.2) K/uL PT INR Sodium (136-145) mmol/L Potassium (3.5-5.1) mmol/L Chloride (98-107) mmol/L Carbon Dioxide (21-32) mmol/L Anion Gap (3-11) BUN (7-18) mg/dl Creatinine (0.6-1.2) mg/dl Est Cr Clr Drug Dosing ml/min Est GFR ( Amer) Est GFR (Non-Af Amer) BUN/Creatinine Ratio (10-20) Glucose (70-99) mg/dl Estimat Average Glucose mg/dl Hemoglobin A1c (4.5-5.6) % POC Lactic Acid Yunior (0.90-1.70) mmol/L Calcium (8.5-10.1) mg/dl Magnesium (1.8-2.4) mg/dl Total Bilirubin (0.2-1) mg/dl AST (15-37) U/L ALT (12-78) U/L Alkaline Phosphatase (45-117) U/L Total Protein (6.4-8.2) gm/dl Albumin (3.4-5.0) gm/dl Globulin (2.5-4.0) gm/dl Albumin/Globulin Ratio (0.9-2) Vitamin B12 230 (211-911) pg/ml Folate 7.48 (>5.38) ng/ml TSH (0.300-4.500) uIu/ml Imaging Data Radiologist's Impression: Radiology results as stated below per my review and the radiologist's interpretation: XR tibia fibula RT 2V CLINICAL HISTORY: trauma pain COMPARISON: None. DISCUSSION: Generalized degenerative change. This particularly prominent in the region of the knee. No acute bony abnormality. Generalized soft tissue edema. IMPRESSION: Degenerative change. Soft tissue edema. No acute bony abnormality. The above report was generated using voice recognition software. It may contain grammatical, syntax or spelling errors. Electronically signed by: Brain An M.D. 11/01/2018 4:16 PM XR pelvis 1-2V routine CLINICAL HISTORY: 78 years-old Female presenting with trauma. TECHNIQUE: Single frontal view of the pelvis was obtained. COMPARISON: 06/09/2015. FINDINGS: Coil jess likely indicate prior hernia repair. Moderate stool burden. Osteopenia. Sacrum iliac joints, pubic symphysis, and hip joints congruent. Degenerative changes of the lower lumbar spine. Arcuate lines of the sacrum grossly intact. The bony pelvis is intact. Femoral necks grossly intact. No advanced degenerative changes of the hip joints. IMPRESSION: No acute osseous injury of the pelvis. Electronically signed by: Spencer Aleman M.D. 11/01/2018 4:17 PM XR knee RT 3V CLINICAL HISTORY: 78 years-old Female presenting with trauma. TECHNIQUE: Frontal, lateral, and sunrise views of the right knee were obtained. COMPARISON: 06/09/2015. FINDINGS: Advanced tricompartmental degenerative changes with a [id number] appearance of the medial compartment, exuberant tricompartmental osteophytosis, subchondral sclerosis and cystic change most prominent medially and advanced lateral facet joint space loss in the patellofemoral compartment. Suspected underlying osteopenia. Allowing for this, no displaced fracture. No acute- appearing malalignment. A knee joint effusion may be present. Diffuse subcutaneous edema noted. IMPRESSION: 1. Allowing for the degree of degenerative change and underlying osteopenia, no radiographic evidence of acute osseous injury. 2. Tricompartmental degenerative changes most severe in the medial compartment. These have progressed since the prior exam. Electronically signed by: Spencer Aleman M.D. 11/01/2018 4:15 PM ECG Data Attestation: I personally reviewed and interpreted this ECG as follows: Indication: other (cellulitis) Rate (beats per minute): 81 Rhythm: atrial fibrillation Findings: + other (normal axis, normal QRS and QTC); no ST depression, no ST elevation and no acute ischemic change Comparison ECG Date: from (03/06/18) Change: the following changes noted (atrial fibrillation) Blood Pressure Blood Pressure Findings: Elevated blood pressure Blood Pressure Disposition: further management by hospitalist MDM Narrative Patient here well-appearing, sent in from long-term facility due to continued cellulitis that was already being treated as an outpatient. Patient states cellulitis began after a mechanical fall last week. Patient is anticoagulated due to history of paroxysmal A. fib which likely is contributing to the ecchymosis noted. Patient denies any other pain. Denied any prodromal symptoms to suggest that this was a syncopal event last week. X-rays here were unremarkable of the involved lower extremity. Physical exam did not reveal crepitus. Patient with normal cap refill, normal sensory exam normal pulses distally. I do not suspect necrotizing fasciitis at this time. I do not suspect bacteremia/sepsis. Patient with mild renal impairment noted compared to baseline, however given recent antibiotics this may be secondary to this. Patient is a diabetic and has had previous issues with severe cellulitis. Impression & Plan Cellulitis, Failure of outpatient treatment, Supratherapeutic INR, Fall Discharge Plan Visit Data *Final* Discharge Date/Time: 11/01/18 20:31 Chief Complaint: Leg Injury/Pain ED Provider: Ragini Nation Discharge Problem: Cellulitis, Failure of outpatient treatment, Supratherapeutic INR, Fall Patient Disposition: Admitted As Inpatient Condition: Fair Discharge Instructions Interventions: ED Discharge Assessment Last Done: 11/01/18 20:31 The scribe's documentation has been prepared under my direction and personally reviewed by me in its entirety. I confirm that the note above accurately reflects all work, treatment, procedures, and medical decision making performed by me.
[2018-11-01] MEDS ORDERED: LORazepam 0.5 MG TAB PO PRN (20:52)
[2018-11-01] MEDS ORDERED: DEXTROSE 50% 50 ML SYRINGE IV PRN (20:52)
[2018-11-01] MEDS ORDERED: CARBOHYDRATES FOR HYPOGLYCEMIA PO PRN (20:52)
[2018-11-01] MEDS ORDERED: POLYETHYLENE (MIRALAX) 17 GM PACK PO PRN (20:52)
[2018-11-01] MEDS ORDERED: IPRATROPIUM BROMIDE NEB SOLN 0.02% 2.5 ML VIAL INH PRN (20:52)
[2018-11-01] MEDS ORDERED: XOPENEX/ATROVENT 0.63mg/0.5MG NEB COMBO NEB PRN (20:52)
[2018-11-01] MEDS ORDERED: LEVALBUTEROL HCL 0.63 MG/3 ML NEB NEB PRN (20:52)
[2018-11-01] MEDS ORDERED: GLUCOSE 10 TABS/TUBE PO PRN (20:52)
[2018-11-01] MEDS ORDERED: GLUCAGON FOR INJ 1 MG VIAL SQ PRN (20:52)
[2018-11-01] MEDS ORDERED: GLUCOSE 40% GEL 15 GM TUBE PO PRN (20:52)
[2018-11-01] MEDS ORDERED: NON-FORMULARY MEDICATION (Melatonin [Melatonin] 10 MG) PO SCH (21:00)
[2018-11-01] MEDS ORDERED: CARBOXYMETHYLCELLULOSE SODIUM OPB SCH (21:00)
[2018-11-01] MEDS ORDERED: PIPERACILLIN/TAZOBACTAM 4.5 GM in DEXTROSE 5% 100 ML IV ONE (22:30)
[2018-11-01] MEDS ORDERED: PIPERACILL/TAZOBAC CONSULT ACTIVE PRN (22:46)
[2018-11-01] MEDS: METOPROLOL TARTRATE 25 MG TAB PO SCH (22:53)
[2018-11-01] MEDS: TRAZODONE HCL 50 MG TAB PO SCH (22:53)
[2018-11-01] MEDS: BusPIRone 15 MG TAB PO SCH (22:54)
[2018-11-01] MEDS: FUROSEMIDE 40 MG TAB PO SCH (22:54)
[2018-11-01] MEDS: POTASSIUM CHLORIDE 20 MEQ TABCR PO SCH (22:55)
[2018-11-01] MEDS: SENNA 8.6 MG TAB PO SCH (22:55)
[2018-11-01] MEDS: MONTELUKAST SODIUM 10 MG TABLET PO SCH (22:55)
[2018-11-01] MEDS: SUCRALFATE 1 GM TAB PO SCH (22:56)
[2018-11-01] MEDS: DOCUSATE SODIUM 100 MG CAP PO SCH (22:56)
[2018-11-01] MEDS: FLUTICASONE/SALMETEROL (ADVAIR) 500/50 INH 14 PUFF INH SCH (22:57)
[2018-11-01] MEDS: FERROUS SULFATE 325 MG TAB PO SCH (22:57)
[2018-11-01] MEDS: PREGABALIN 50 MG CAP PO SCH (22:59)
[2018-11-01] MEDS: INSULIN ASPART 100 UNITS/ML 3 ML PEN SC SCH (22:59)
[2018-11-01] MEDS: TRAMADOL HCL 50 MG TABLET PO SCH (22:59)
[2018-11-02] MEDS: PIPERACILLIN/TAZOBACTAM 4.5 GM in DEXTROSE 5% 100 ML IV SCH ×3 (03:46→20:56)
[2018-11-02] MEDS: LEVOTHYROXINE SODIUM 75 MCG TABLET PO SCH (05:56)
[2018-11-02] MEDS: PANTOprazole 40 MG TAB PO SCH (05:56)
[2018-11-02 06:57] LABS: Hematocrit (blood only) 35.3 % (37-47); Hemoglobin 11.6 g/dL (12.0-16.0); Mean Corpuscular Hgb Conc 32.9 g/dL (32-36); Platelet Count 202 K/uL (130-400); RDW Coefficient of Variation 15.9 % (11.5-14.5); RDW Standard Deviation 58.3 fL (36.4-46.3); Red Blood Count 3.46 M/uL (4.2-5.4); White Blood Count 6.79 K/uL (4.8-10.8)
[2018-11-02 07:13] LABS: Prothrombin Time 35.3 Seconds (9.0-12.0)
[2018-11-02 07:14] LABS: INR 3.8 (0.9-1.1)
[2018-11-02 07:16] LABS: Estimated Average Glucose 131 mg/dl
[2018-11-02 07:33] LABS: BUN Creatinine Ratio 25.7 (10-20); Calcium 8.8 mg/dl (8.5-10.1); Creatinine Clr Calc Pharmacy 54.1 ml/min; Est GFR (African American) 52.6; Est GFR (Non-African American) 45.4; Magnesium 2.2 mg/dl (1.8-2.4)
[2018-11-02] MEDS: METOPROLOL TARTRATE 25 MG TAB PO SCH ×2 (08:28→21:02)
[2018-11-02] MEDS: FUROSEMIDE 40 MG TAB PO SCH ×2 (08:28→21:01)
[2018-11-02] MEDS: POTASSIUM CHLORIDE 20 MEQ TABCR PO SCH ×2 (08:28→21:01)
[2018-11-02] MEDS: BusPIRone 15 MG TAB PO SCH ×2 (08:28→20:59)
[2018-11-02] MEDS: DOCUSATE SODIUM 100 MG CAP PO SCH ×2 (08:29→21:00)
[2018-11-02] MEDS: DULOXETINE HCL 60 MG CAP PO SCH (08:29)
[2018-11-02] MEDS: SUCRALFATE 1 GM TAB PO SCH ×2 (08:29→20:59)
[2018-11-02] MEDS: SENNA 8.6 MG TAB PO SCH ×2 (08:29→21:02)
[2018-11-02] MEDS: ALLOPURINOL 100 MG TAB PO SCH (08:29)
[2018-11-02] MEDS: COLCHICINE 0.6 MG TAB PO SCH (08:29)
[2018-11-02] MEDS: FERROUS SULFATE 325 MG TAB PO SCH ×2 (08:29→21:00)
[2018-11-02] MEDS: dilTIAZem HCL 240 MG CAPCR PO SCH (08:29)
[2018-11-02] MEDS: SPIRONOLACTONE 25 MG TAB PO SCH (08:29)
[2018-11-02] MEDS: MAGNESIUM OXIDE 400 MG TAB PO SCH (08:29)
[2018-11-02] MEDS: FLUTICASONE/SALMETEROL (ADVAIR) 500/50 INH 14 PUFF INH SCH ×2 (08:30→20:57)
[2018-11-02] MEDS: CHECK FENTANYL PATCH PLACEMENT SCH ×2 (08:30→15:47)
[2018-11-02] MEDS: INSULIN ASPART 100 UNITS/ML 3 ML PEN SC SCH ×4 (08:31→21:51)
[2018-11-02] MEDS: ARTIFICIAL TEARS OPB SCH ×2 (08:32→21:51)
[2018-11-02] MEDS: PREGABALIN 50 MG CAP PO SCH ×3 (08:34→21:14)
[2018-11-02] MEDS: TRAMADOL HCL 50 MG TABLET PO SCH ×4 (08:44→21:03)
[2018-11-02 08:46] LABS: Folate (Folic Acid) 7.48 ng/ml (>5.38)
--- NOTE | 2018-11-02 10:47 | Pharmacy Report ---
Pharmacy Abx Initial Consult - Date of Service November 02, 2018 - Pharmacy Dosing Scope Date of Consult: 11/01/18 Consultation requested by: Rylee Gonzalez PA-C Pharmacy is consulted to initiate Vancomycin & Zosyn IV dosing therapy, order appropriate labs and adjust drug dose/frequency. - Subjective The patient is a 78 year old F admitted on 11/01/18 17:41 with RLE Cellulitis. - Objective Height: 5 ft 6 in Weight: 122 kg Vital Signs (Past 12hrs): Vital Signs Temp Pulse Resp BP Pulse Ox 11/02/18 08:01 36.6 C 80 20 131/83 90 11/02/18 04:00 36.9 C 87 18 130/76 92 11/02/18 00:47 36 C L 91 H 16 113/74 92 Lab Results (24hrs): Laboratory Tests (24 Hours) 11/02/18 11/02/18 11/01/18 06:11 06:11 15:15 WBC 6.79 Neut # (Auto) Creatinine 1.16 1.31 H Est Cr Clr Drug Dosing 54.1 47.7 11/01/18 15:15 WBC 10.77 Neut # (Auto) 7.14 H Creatinine Est Cr Clr Drug Dosing Micro Results: 11/01/18 18:53 Blood Culture - Pending Blood 11/01/18 18:58 Blood Culture - Pending Blood - Risk Factors for Resistance * History of infection with a multidrug-resistant organism: MRSA * Antimicrobial use within the last 90 days - Augmentin 10/30/18; Doxycycline PO started 11/01/18 - Assessment & Plan Assessment 78 year old F admitted with R LE Cellulitis, started Augmentin 10/30/18, Doxycycline added 11/01/18 with no improvement. Presented with hx mechanical fall last week with hematoma RLE, then past couple of days developed erythema, edema, warmth. Denies fever/chills, N/V. Plan IV Vancomycin and Zosyn for treatment of RLE Cellulitis Vancomycin IV * Estimated PK Parameters: Vd 0.6 L/kg, Lavelle 0.05 hr-1, t1/2 13.9hr * Loading dose: 2500 mg (20.7 mg/kg) * Maintenance dose: 1500 mg IV (12.4 mg/kg) every 16 hours * Goal trough level for Cellulitis : 15 to 20 mcg/mL * Trough level ordered for 11/03/18 * A less than traditional dose has been selected due to likelihood of drug accumulation in obese patient, BMI 43.1kg/m3 Piperacillin/tazobactam * 4.5 g bolus administered over 30 minutes, then 4.5 g IV extended infusion every 8 hours for CrCl greater than 20 mL/min * Aggressive dosing selected due to BMI 35 or more Pharmacy will continue to follow and will adjust dose/frequency as necessary. Thank you.
[2018-11-02] MEDS: VANCOMYCIN HCL 1,500 MG in SODIUM CHLORIDE 0.9% 500 ML IV SCH (11:32)
--- NOTE | 2018-11-02 19:13 | Hospitalist Progress Note ---
Date of Service November 02, 2018 Assessment & Plan (1) Swelling of lower extremity: Swelling of RLE after fall. Extensive ecchymoses and erythema. Cellulitis considered at time of admission. May just have hematoma with inflammation. Continue antibiotics for now. Check procalcitonin in a.m. (2) Atrial fibrillation: Rate controlled. Continue metoprolol and diltiazem. Titrate warfarin. (3) Diastolic CHF: Compensated. (4) Hypertension: Continue metoprolol and diltiazem. (5) DM type 2 (diabetes mellitus, type 2): Hgb A1C = 6.2. FBS = 114. (6) CKD (chronic kidney disease), stage III: Creatinine 1.16. Follow. (7) Supratherapeutic INR: INR 3.8. Hold warfarin. Follow. (8) DVT prophylaxis: On warfarin with supratherapeutic INR. (9) Discharge planning issues: To be determined. Family Medicine follow-up with Dr. Lemus. Subjective Recheck for multiple problems. Pt seen in her room around 1100. Persistent swelling of right leg. No fever. No chest pain. No cough or SOB. No nausea, vomiting, diarrhea. No urinary symptoms. Physical Exam 2 Vital Signs (Past 24 Hours): Last Vital Signs Temp 36.8 C 11/02/18 15:49 Pulse 91 H 11/02/18 15:49 Resp 20 11/02/18 15:49 BP 107/70 11/02/18 15:49 Pulse Ox 94 11/02/18 15:49 Constitutional: WD/WN, vitals as above no acute distress Respiratory: normal respiratory effort, lungs clear to auscultation no respiratory distress Cardiovascular: Rate/Rhythm: + abnormal rhythm (irregularly irregular) Heart Sounds: no gallop Extremities: + edema (RLE) Gastrointestinal (Abdomen): Inspection/Auscultation: normal bowel sounds Percussion/Palpation: abdomen soft; abdomen nontender Musculoskeletal: Extremities: + lower leg abnormality Right (ecchymoses, erythema, swelling) Psychiatric: A+Ox3, euthymic affect Results & Data Laboratory Results Laboratory Results - last 24 hr 11/02/18 11/02/18 11/02/18 06:11 06:11 06:11 WBC 6.79 RBC 3.46 L Hgb 11.6 L Hct 35.3 L MCV 102.0 H MCH 33.5 MCHC 32.9 RDW Std Deviation 58.3 H RDW Coeff of Kenneth 15.9 H Plt Count 202 MPV 11.0 H PT 35.3 H INR 3.8 H Sodium 137 Potassium 4.0 D Chloride 101 Carbon Dioxide 29 Anion Gap 8.0 BUN 30 H Creatinine 1.16 Est Cr Clr Drug Dosing 54.1 Est GFR ( Amer) 52.6 Est GFR (Non-Af Amer) 45.4 BUN/Creatinine Ratio 25.7 H Glucose 114 H Estimat Average Glucose Hemoglobin A1c Calcium 8.8 Magnesium 2.2 Vitamin B12 Folate TSH 1.610 11/02/18 11/02/18 06:11 06:11 WBC RBC Hgb Hct MCV MCH MCHC RDW Std Deviation RDW Coeff of Kenneth Plt Count MPV PT INR Sodium Potassium Chloride Carbon Dioxide Anion Gap BUN Creatinine Est Cr Clr Drug Dosing Est GFR ( Amer) Est GFR (Non-Af Amer) BUN/Creatinine Ratio Glucose Estimat Average Glucose 131 Hemoglobin A1c 6.2 H Calcium Magnesium Vitamin B12 230 Folate 7.48 TSH
[2018-11-02] MEDS: TRAZODONE HCL 50 MG TAB PO SCH (21:00)
[2018-11-02] MEDS: MONTELUKAST SODIUM 10 MG TABLET PO SCH (21:03)
[2018-11-02] MEDS: ACETAMINOPHEN 325 MG TAB PO PRN (22:29)
[2018-11-03] MEDS: VANCOMYCIN HCL 1,500 MG in SODIUM CHLORIDE 0.9% 500 ML IV SCH ×2 (01:56→17:59)
[2018-11-03] MEDS: PIPERACILLIN/TAZOBACTAM 4.5 GM in DEXTROSE 5% 100 ML IV SCH ×3 (04:06→19:54)
[2018-11-03] MEDS: LEVOTHYROXINE SODIUM 75 MCG TABLET PO SCH (05:35)
[2018-11-03] MEDS: PANTOprazole 40 MG TAB PO SCH (05:35)
[2018-11-03 07:19] LABS: Hematocrit (blood only) 35.1 % (37-47); Hemoglobin 11.5 g/dL (12.0-16.0); Mean Corpuscular Hgb Conc 32.8 g/dL (32-36); Mean Corpuscular Volume 102.6 fL (80-100); Mean Platelet Volume 10.4 fL (7.4-10.4); Platelet Count 184 K/uL (130-400); RDW Standard Deviation 59.3 fL (36.4-46.3); Red Blood Count 3.42 M/uL (4.2-5.4); White Blood Count 6.46 K/uL (4.8-10.8)
[2018-11-03 07:52] LABS: BUN Creatinine Ratio 24.1 (10-20); Calcium 8.7 mg/dl (8.5-10.1); Est GFR (African American) 52.6; Est GFR (Non-African American) 45.4; Potassium 3.4 mmol/L (3.5-5.1)
[2018-11-03] MEDS: INSULIN ASPART 100 UNITS/ML 3 ML PEN SC SCH ×4 (08:19→20:14)
[2018-11-03] MEDS: CHECK FENTANYL PATCH PLACEMENT SCH ×3 (08:22→15:46)
[2018-11-03] MEDS: FLUTICASONE/SALMETEROL (ADVAIR) 500/50 INH 14 PUFF INH SCH ×2 (08:22→20:03)
[2018-11-03] MEDS: ALLOPURINOL 100 MG TAB PO SCH (08:23)
[2018-11-03] MEDS: METOPROLOL TARTRATE 25 MG TAB PO SCH ×2 (08:23→20:07)
[2018-11-03] MEDS: DULOXETINE HCL 60 MG CAP PO SCH (08:23)
[2018-11-03] MEDS: FERROUS SULFATE 325 MG TAB PO SCH ×2 (08:23→20:05)
[2018-11-03] MEDS: DOCUSATE SODIUM 100 MG CAP PO SCH ×2 (08:23→20:05)
[2018-11-03] MEDS: BusPIRone 15 MG TAB PO SCH ×2 (08:23→20:04)
[2018-11-03] MEDS: SENNA 8.6 MG TAB PO SCH ×2 (08:24→20:08)
[2018-11-03] MEDS: FUROSEMIDE 40 MG TAB PO SCH ×2 (08:24→20:06)
[2018-11-03] MEDS: COLCHICINE 0.6 MG TAB PO SCH (08:24)
[2018-11-03] MEDS: SPIRONOLACTONE 25 MG TAB PO SCH (08:24)
[2018-11-03] MEDS: MAGNESIUM OXIDE 400 MG TAB PO SCH (08:24)
[2018-11-03] MEDS: SUCRALFATE 1 GM TAB PO SCH ×2 (08:24→20:04)
[2018-11-03] MEDS: POTASSIUM CHLORIDE 20 MEQ TABCR PO SCH ×2 (08:25→20:06)
[2018-11-03] MEDS: dilTIAZem HCL 240 MG CAPCR PO SCH (08:25)
[2018-11-03] MEDS: PREGABALIN 50 MG CAP PO SCH ×3 (08:32→20:10)
[2018-11-03] MEDS: ARTIFICIAL TEARS OPB SCH ×2 (08:32→20:14)
[2018-11-03] MEDS: TRAMADOL HCL 50 MG TABLET PO SCH ×4 (08:32→20:10)
[2018-11-03] MEDS: fentaNYL 50 MCG/HR TDSY TD SCH (08:33)
[2018-11-03] MEDS ORDERED: MICONAZOLE NITRATE POWDER 43 GM EXT PRN (13:04)
--- NOTE | 2018-11-03 14:33 | Hospitalist Progress Note ---
Date of Service November 03, 2018 Assessment & Plan (1) Swelling of lower extremity: Swelling of RLE after fall. Extensive ecchymoses and erythema. Cellulitis considered at time of admission. Procalcitonin < 0.05. May just have hematoma with inflammation. Continue antibiotics for now, but consider stopping if blood cultures negative and clinically stable. (2) Atrial fibrillation: Rate controlled. Continue metoprolol and diltiazem. Titrate warfarin. (3) Diastolic CHF: Compensated. (4) Hypertension: Continue metoprolol and diltiazem. (5) DM type 2 (diabetes mellitus, type 2): Hgb A1C = 6.2. FBS = 110. (6) CKD (chronic kidney disease), stage III: Creatinine 1.16. Follow. (7) Supratherapeutic INR: INR 4.0 day of admission. Hold warfarin. Follow. (8) DVT prophylaxis: On warfarin with supratherapeutic INR. (9) Discharge planning issues: Anticipated return to [facility]. Family Medicine follow-up with Dr. Lemus. Subjective Recheck for multiple problems. Pt seen in her room around 1200. Persistent swelling of right leg, but not much pain. No fever. No chest pain. No cough or SOB. No nausea, vomiting, diarrhea. No urinary symptoms. Physical Exam 2 Vital Signs (Past 24 Hours): Last Vital Signs Temp 36.4 C L 11/03/18 04:18 Pulse 100 H 11/03/18 04:18 Resp 20 11/03/18 04:18 BP 128/81 11/03/18 04:18 Pulse Ox 92 11/03/18 04:18 Constitutional: WD/WN, vitals as above no acute distress Respiratory: normal respiratory effort, lungs clear to auscultation no respiratory distress Cardiovascular: Rate/Rhythm: + abnormal rhythm (irregularly irregular) Heart Sounds: no gallop Extremities: + edema (RLE) Gastrointestinal (Abdomen): Inspection/Auscultation: normal bowel sounds Percussion/Palpation: abdomen soft; abdomen nontender Musculoskeletal: Extremities: + lower leg abnormality Right (ecchymoses, swelling, erythema of knee and leg) Psychiatric: A+Ox3, euthymic affect Results & Data Laboratory Results Laboratory Results - last 24 hr 11/03/18 11/03/18 11/03/18 06:58 06:58 06:58 WBC 6.46 RBC 3.42 L Hgb 11.5 L Hct 35.1 L MCV 102.6 H MCH 33.6 MCHC 32.8 RDW Std Deviation 59.3 H RDW Coeff of Kenneth 16.0 H Plt Count 184 MPV 10.4 Sodium 138 Potassium 3.4 L Chloride 102 Carbon Dioxide 28 Anion Gap 9.0 BUN 28 H Creatinine 1.16 Est Cr Clr Drug Dosing 54.0 Est GFR ( Amer) 52.6 Est GFR (Non-Af Amer) 45.4 BUN/Creatinine Ratio 24.1 H Glucose 110 H Calcium 8.7 Procalcitonin < 0.05 Vancomycin Trough 11/03/18 17:30 WBC RBC Hgb Hct MCV MCH MCHC RDW Std Deviation RDW Coeff of Kenneth Plt Count MPV Sodium Potassium Chloride Carbon Dioxide Anion Gap BUN Creatinine Est Cr Clr Drug Dosing Est GFR ( Amer) Est GFR (Non-Af Amer) BUN/Creatinine Ratio Glucose Calcium Procalcitonin Vancomycin Trough 24.3 Microbiology 11/01/18 18:58 Blood Blood Culture - Preliminary No growth to date. 11/01/18 18:53 Blood Blood Culture - Preliminary No growth to date.
[2018-11-03] MEDS ORDERED: VANCOMYCIN TROUGH ONE (17:30)
--- NOTE | 2018-11-03 19:24 | Pharmacy Report ---
Pharmacy Abx Dose Short Note - Date of Service November 03, 2018 - Assessment & Plan Assessment 78 year old F receiving Vancomycin 1500mg Q16H for treatment of RLE cellulitis with a history of MRSA. Day # 3 of antimicrobial therapy. Laboratory Tests 11/03/18 17:30 Vancomycin Trough 24.3 Plan Vancomycin * Trough level of 24.3 mcg/mL is supratherapeutic. * Change to 1500 mg IV every 20 hours, since patient is likely to continue to accumulate with a BMI of 43.3. * Goal trough level 15 to 20 mcg/mL * Another level is not ordered at this time; will reassess if patient declines or there is a significant clinical change. Pharmacy will continue to follow and will adjust dose/frequency as necessary. Thank you.
[2018-11-03] MEDS: ACETAMINOPHEN 325 MG TAB PO PRN (19:54)
[2018-11-03] MEDS: TRAZODONE HCL 50 MG TAB PO SCH (20:05)
[2018-11-03] MEDS: MONTELUKAST SODIUM 10 MG TABLET PO SCH (20:08)
[2018-11-04] MEDS: PIPERACILLIN/TAZOBACTAM 4.5 GM in DEXTROSE 5% 100 ML IV SCH ×2 (04:08→12:35)
[2018-11-04] MEDS: PANTOprazole 40 MG TAB PO SCH (05:58)
[2018-11-04] MEDS: LEVOTHYROXINE SODIUM 75 MCG TABLET PO SCH (05:58)
[2018-11-04 07:24] LABS: Hematocrit (blood only) 35.4 % (37-47); Hemoglobin 11.7 g/dL (12.0-16.0); Mean Corpuscular Hgb Conc 33.1 g/dL (32-36); Mean Corpuscular Volume 101.4 fL (80-100); Mean Platelet Volume 10.3 fL (7.4-10.4); Platelet Count 184 K/uL (130-400); RDW Standard Deviation 58.5 fL (36.4-46.3); Red Blood Count 3.49 M/uL (4.2-5.4)
[2018-11-04 07:38] LABS: INR 1.9 (0.9-1.1); Prothrombin Time 18.7 Seconds (9.0-12.0)
[2018-11-04 07:56] LABS: Calcium 8.7 mg/dl (8.5-10.1); Creatinine Clr Calc Pharmacy 47.6 ml/min; Est GFR (African American) 45.4; Est GFR (Non-African American) 39.2; Potassium 3.3 mmol/L (3.5-5.1)
[2018-11-04] MEDS: CHECK FENTANYL PATCH PLACEMENT SCH ×3 (08:00→17:15)
[2018-11-04] MEDS: COLCHICINE 0.6 MG TAB PO SCH (09:00)
[2018-11-04] MEDS: DULOXETINE HCL 60 MG CAP PO SCH (09:00)
[2018-11-04] MEDS: ARTIFICIAL TEARS OPB SCH ×2 (09:00→20:56)
[2018-11-04] MEDS: SENNA 8.6 MG TAB PO SCH ×2 (09:00→20:55)
[2018-11-04] MEDS: ALLOPURINOL 100 MG TAB PO SCH (09:00)
[2018-11-04] MEDS: FERROUS SULFATE 325 MG TAB PO SCH (09:00)
[2018-11-04] MEDS: MAGNESIUM OXIDE 400 MG TAB PO SCH (09:00)
[2018-11-04] MEDS: FLUTICASONE/SALMETEROL (ADVAIR) 500/50 INH 14 PUFF INH SCH ×2 (09:00→20:55)
[2018-11-04] MEDS ORDERED: metOLazone 2.5 MG TABLET PO SCH (09:00)
[2018-11-04] MEDS: BusPIRone 15 MG TAB PO SCH ×2 (09:00→20:55)
[2018-11-04] MEDS: PREGABALIN 50 MG CAP PO SCH ×3 (09:00→21:00)
[2018-11-04] MEDS: METOPROLOL TARTRATE 25 MG TAB PO SCH ×2 (09:00→20:55)
[2018-11-04] MEDS: SUCRALFATE 1 GM TAB PO SCH ×2 (09:00→20:55)
[2018-11-04] MEDS: dilTIAZem HCL 240 MG CAPCR PO SCH (09:00)
[2018-11-04] MEDS: POTASSIUM CHLORIDE 20 MEQ TABCR PO SCH ×2 (09:00→20:55)
[2018-11-04] MEDS: SPIRONOLACTONE 25 MG TAB PO SCH (09:00)
[2018-11-04] MEDS: DOCUSATE SODIUM 100 MG CAP PO SCH ×2 (09:00→20:55)
[2018-11-04] MEDS: INSULIN ASPART 100 UNITS/ML 3 ML PEN SC SCH ×4 (09:00→20:56)
[2018-11-04] MEDS: FUROSEMIDE 40 MG TAB PO SCH ×2 (09:00→20:55)
[2018-11-04] MEDS: TRAMADOL HCL 50 MG TABLET PO SCH ×4 (13:01→21:01)
[2018-11-04] MEDS ORDERED: VANCOMYCIN HCL 1,500 MG in SODIUM CHLORIDE 0.9% 500 ML IV SCH (14:00)
--- NOTE | 2018-11-04 14:49 | Orthopedic Consultation ---
Date of Consultation November 04, 2018 Assessment & Plan (1) Cellulitis of right lower extremity: Continue treatment as per primary care service. (2) Hematoma of right lower extremity: Conservative treatment vs. Surgical intervention discussed, after discussion conservative treatment recommended. Recommend ice and elevation right lower extremity as well as thigh high NIKA stocking for compression. She may do range of motion right lower extremity joints as tolerated. She may be out of bed, weight bear as tolerated right lower extremity with the assistance of a walker. Will plan to monitor hematoma. Explained to patient that this may take months to resolve. Will follow closely. Recommend follow up on Sunday11/08/18, appointment scheduled. will obtain ESR and CRP with AM labs. Discussion about obtaining CT scan with IV contrast but with her underlying kidney disease and no significant recent change in size of the hematoma will hold off on doing this for now, may need to do in future if continues to expand. She understands and agrees with the plan. All questions answered, thank you for this consultation, please call [phone] with any questions or concerns. (3) Pain of right great toe: continue treatment as per primary team Supervising Physician Co-Signing Physician Notes I saw and examined the patient and formulated the treatment plan. Agree with the above note. History of Present Illness Reason for Consultation: right leg hematoma Requesting Physician: Dr. Ramon Floyd Attending Physician: Ramon Floyd MD History of Present Illness Patient is a 78 year old female, s/p fall in her room at [facility] approximately 2 weeks ago. She states that she was wearing slippers that were too big for her and she's not exactly sure what happened except that she knew she was falling and went to the floor. She states that she hurt her leg at that time. She does take Chronic coumadin for and her right leg immediately swelled and became black and blue. She states that it did also get red immediately. It 's been pretty much the same since the time of her injury, maybe some increased swelling and progressive pain with ambulation. She normally walks with a walker and states that she's been icing and wearing a compression stocking while in [facility]. She and her daughter requested orthopedic surgery consult for recommendations for conservative vs. surgical treatment options. She has never hand anything like this before. She's also complaining of right great toe pain, hurts when she walks on it, mild swelling and redness, no history of gout. Denies known injury to the right great toe. She has been started on colchicine and allopurinol per the medical service for treatment of potential gout. She denies chest pain, shortness of breath, tolerating regular diet, denies numbness or tingling right lower leg or foot. Denies weakness, states just pain with movement or ambulation. She describes pain 10/10 with ambulation. She denies any open skin wounds or drainage. Allergies Allergy/AdvReac Type Severity Reaction Status Date / Time meperidine [From Demerol] Allergy Unknown ON WINDY Verified 11/01/18 15:46 HILL LIST morphine AdvReac Intermediate vomiting Verified 11/01/18 15:46 oxycodone AdvReac Intermediate vomit blood Verified 11/01/18 15:46 propoxyphene AdvReac Intermediate abd vomit Verified 11/01/18 15:46 blood tramadol AdvReac Intermediate vomiting Verified 11/01/18 15:46 Bactrim AdvReac Mild GI SYMPTOMS Verified 03/06/18 21:06 codeine AdvReac Mild vomiting Verified 11/01/18 15:46 olmesartan AdvReac Mild GI SYMPTOMS Verified 11/01/18 15:46 Sulfa (Sulfonamide AdvReac Mild GI SYMPTOMS Verified 11/01/18 15:46 Antibiotics) sulfamethoxazole AdvReac Mild GI SYMPTOMS Verified 11/01/18 15:46 trimethoprim AdvReac Mild GI SYMPTOMS Verified 11/01/18 15:46 carisoprodol AdvReac Unknown GI SYMPTOMS Verified 11/01/18 15:46 Home Medications Home Medications Medication Instructions Recorded Confirmed Type acetaminophen 650 mg VA Q6H PRN 11/01/18 11/01/18 History acetaminophen [Tylenol] 650 mg PO Q4 PRN 11/01/18 11/01/18 History allopurinol 200 mg PO QAM 11/01/18 11/01/18 History amoxicillin-pot clavulanate 1 tab PO ONCE 11/01/18 11/01/18 History [Augmentin] bisacodyl [Dulcolax (bisacodyl)] 10 mg VA DAILY PRN 11/01/18 11/01/18 History buspirone 15 mg PO AMHS 11/01/18 11/01/18 History carboxymethylcellulose sodium 1 drp OPB BID 11/01/18 11/01/18 History [Refresh Tears] colchicine 0.6 mg PO QAM 11/01/18 11/01/18 History diltiazem HCl [Cardizem CD] 240 mg PO QAM 11/01/18 11/01/18 History docusate sodium [Colace] 100 mg PO AMHS 11/01/18 11/01/18 History doxycycline hyclate 100 mg PO BID 11/01/18 11/01/18 History duloxetine 60 mg PO QAM 11/01/18 11/01/18 History fentanyl 1 patch TRANSDERMAL Q72H 11/01/18 11/01/18 History ferrous sulfate 325 mg PO AMHS 11/01/18 11/01/18 History fluticasone-salmeterol [Advair 1 inh INHALATION AMHS 11/01/18 11/01/18 History Diskus] furosemide [Lasix] 40 mg PO AMPM 11/01/18 11/01/18 History nzcz-euolq-[id number]-[id number]-sap-svsx-st 1 tab PO PC 11/01/18 11/01/18 History [Glucosamine Chondroitin PLUS] ipratropium-albuterol 3 ml INHALATION Q4 PRN 11/01/18 11/01/18 History levothyroxine 75 mcg PO DAILYBB 11/01/18 11/01/18 History lorazepam 0.5 mg PO TID PRN 11/01/18 11/01/18 History magnesium hydroxide [Milk of 30 ml PO DAILY PRN 11/01/18 11/01/18 History Magnesia] magnesium oxide 250 mg PO QAM 11/01/18 11/01/18 History meclizine 25 mg PO TID PRN 11/01/18 11/01/18 History melatonin 10 mg PO HS 11/01/18 11/01/18 History metolazone 2.5 mg PO 2XWK 11/01/18 11/01/18 History metoprolol tartrate 25 mg PO AMPM 11/01/18 11/01/18 History miconazole nitrate [Desenex] 1 applic TOPICAL BID 11/01/18 11/01/18 History montelukast 10 mg PO PM 11/01/18 11/01/18 History ondansetron HCl [Zofran] 8 mg PO Q8 PRN 11/01/18 11/01/18 History pantoprazole 20 mg PO DAILYBB 11/01/18 11/01/18 History polyethylene glycol 3350 [Miralax] 17 g PO Q OTHER DAY 11/01/18 11/01/18 History potassium chloride 40 meq PO AMPM 11/01/18 11/01/18 History pregabalin [Lyrica] 50 mg PO PC 11/01/18 11/01/18 History sennosides [Senna-Gen] 8.6 mg PO AMHS 11/01/18 11/01/18 History simethicone [Gas-X Ultra-Strength] 180 mg PO PC 11/01/18 11/01/18 History sodium phosphates [Fleet Enema] 118 ml VA DAILY PRN 11/01/18 11/01/18 History spironolactone 25 mg PO QAM 11/01/18 11/01/18 History sucralfate 1 g PO AMPM 11/01/18 11/01/18 History tramadol 50 mg PO QID 11/01/18 11/01/18 History trazodone 50 mg PO HS 11/01/18 11/01/18 History warfarin [Coumadin] 1.5 mg PO 4XWK 11/01/18 11/01/18 History warfarin [Coumadin] 3 mg PO 3XWK 11/01/18 11/01/18 History Patient History Medical History CKD (chronic kidney disease), stage III (Chronic) GERD (gastroesophageal reflux disease) (Chronic) DJD (degenerative joint disease), multiple sites (Chronic) Arthritis (Chronic) Asthma (Chronic) Atrial fibrillation (Chronic) Diastolic CHF (Chronic) On 02/12/16 22:20 Ellie Bains wrote "per echo 09/30/15- EF 60-65%, mod LVH, mod MR, mod TR, dilated RV" DM type 2 (diabetes mellitus, type 2) (Chronic) Hypertension (Chronic) Hypothyroidism (Chronic) Chronic pain (Chronic) Stenosis of right carotid artery (Chronic) History of pulmonary embolism (Chronic) Chronic gastritis (Chronic) Chronic back pain (Chronic) Generalized anxiety disorder (Chronic) Obesity (BMI 30-39.9) (Chronic) DM2 (diabetes mellitus, type 2) (Chronic) HTN (hypertension) (Chronic) Surgical History History of hernia repair (Resolved) History of cholecystectomy (Resolved) Family History Other Diabetes HTN (hypertension) Social History Current Living Situation: Personal Care Facility Other Information That Helps Us Care for You: No Feels Safe at Home: Yes Safety Concerns: Feels Safe At This Time Smoking Status: Never smoker Hx Alcohol Use: No Hx Substance Use: No Beliefs That Will Affect Care: None Communication Ability: Effective Review of Systems Constitutional: as per Subjective / HPI Musculoskeletal: as per Subjective / HPI Integumentary: as per Subjective / HPI Physical Exam 2 Vital Signs (Past 24 Hours): Last Vital Signs Temp 36.6 C 11/04/18 11:45 Pulse 69 11/04/18 11:45 Resp 20 11/04/18 11:45 BP 121/79 11/04/18 11:45 Pulse Ox 96 11/04/18 11:45 Physical Exam: Patient seen and examined by Dr. Cheng today. She tolerates ROM of right hip and right knee. No effusion right knee, but diffuse circumferential ecchymosis and erythema right lower extremity. Tense and tender to palpation hematoma right anterolateral lower leg. No effusion right knee, no prepatellar effusion. Able to independently SLR right lower extremity , distal pulses 1+, distal sensation normal. Dorsiflexion, plantarflexion, inversion, eversion strength 5/5. Mild great toe IP joint erythema and edema, no nail bed injury, cap. refill brisk. Extension and flexion mechanism intact right knee. Right leg warm to touch, skin intact. Results & Data Laboratory Results 11/04/18 11/04/18 11/04/18 Range/Units 07:11 07:11 07:11 WBC 6.80 (4.8-10.8) K/uL RBC 3.49 L (4.2-5.4) M/uL Hgb 11.7 L (12.0-16.0) g/dL Hct 35.4 L (37-47) % MCV 101.4 H (80-100) fL MCH 33.5 (25-34) pg MCHC 33.1 (32-36) g/dL RDW Std Deviation 58.5 H (36.4-46.3) fL RDW Coeff of Kenneth 16.0 H (11.5-14.5) % Plt Count 184 (130-400) K/uL MPV 10.3 (7.4-10.4) fL PT 18.7 H (9.0-12.0) Seconds INR 1.9 H (0.9-1.1) Sodium 136 (136-145) mmol/L Potassium 3.3 L (3.5-5.1) mmol/L Chloride 101 (98-107) mmol/L Carbon Dioxide 28 (21-32) mmol/L Anion Gap 7.0 (3-11) BUN 30 H (7-18) mg/dl Creatinine 1.31 H (0.6-1.2) mg/dl Est Cr Clr Drug Dosing 47.6 ml/min Est GFR ( Amer) 45.4 Est GFR (Non-Af Amer) 39.2 BUN/Creatinine Ratio 23.0 H (10-20) Glucose 113 H (70-99) mg/dl Calcium 8.7 (8.5-10.1) mg/dl Vancomycin Trough (See Comment) mcg/ml 11/03/18 Range/Units 17:30 WBC (4.8-10.8) K/uL RBC (4.2-5.4) M/uL Hgb (12.0-16.0) g/dL Hct (37-47) % MCV (80-100) fL MCH (25-34) pg MCHC (32-36) g/dL RDW Std Deviation (36.4-46.3) fL RDW Coeff of Kenneth (11.5-14.5) % Plt Count (130-400) K/uL MPV (7.4-10.4) fL PT (9.0-12.0) Seconds INR (0.9-1.1) Sodium (136-145) mmol/L Potassium (3.5-5.1) mmol/L Chloride (98-107) mmol/L Carbon Dioxide (21-32) mmol/L Anion Gap (3-11) BUN (7-18) mg/dl Creatinine (0.6-1.2) mg/dl Est Cr Clr Drug Dosing ml/min Est GFR ( Amer) Est GFR (Non-Af Amer) BUN/Creatinine Ratio (10-20) Glucose (70-99) mg/dl Calcium (8.5-10.1) mg/dl Vancomycin Trough 24.3 (See Comment) mcg/ml Diagnostic Findings XR tibia fibula RT 2V CLINICAL HISTORY: trauma pain COMPARISON: None. DISCUSSION: Generalized degenerative change. This particularly prominent in the region of the knee. No acute bony abnormality. Generalized soft tissue edema. IMPRESSION: Degenerative change. Soft tissue edema. No acute bony abnormality. XR knee RT 3V CLINICAL HISTORY: 78 years-old Female presenting with trauma. TECHNIQUE: Frontal, lateral, and sunrise views of the right knee were obtained. COMPARISON: 06/09/2015. FINDINGS: Advanced tricompartmental degenerative changes with a [id number] appearance of the medial compartment, exuberant tricompartmental osteophytosis, subchondral sclerosis and cystic change most prominent medially and advanced lateral facet joint space loss in the patellofemoral compartment. Suspected underlying osteopenia. Allowing for this, no displaced fracture. No acute- appearing malalignment. A knee joint effusion may be present. Diffuse subcutaneous edema noted. IMPRESSION: 1. Allowing for the degree of degenerative change and underlying osteopenia, no radiographic evidence of acute osseous injury. 2. Tricompartmental degenerative changes most severe in the medial compartment. These have progressed since the prior exam. XR right great toe Report noted in EMR. No evidence for fracture, degenerative changes right great toe. Medications Administered Current Inpatient Medications Acetaminophen (Tylenol) 650 mg PO Q4H PRN PRN Reason: Pain or Fever Stop: 12/01/18 20:51 Last Admin: 11/03/18 19:54 Dose: 650 mg Allopurinol (Zyloprim) 200 mg PO QAM [facility] Stop: 12/02/18 08:59 Last Admin: 11/04/18 09:00 Dose: 200 mg Artificial Tears (Artificial Tears) 1 drops OPB BID [facility] Stop: 12/02/18 08:59 Last Admin: 11/04/18 09:00 Dose: 1 drops Buspirone HCl (Buspar) 15 mg PO BID [facility] Stop: 12/01/18 20:59 Last Admin: 11/04/18 09:00 Dose: 15 mg Colchicine (Colcrys) 0.6 mg PO QAM [facility] Stop: 12/02/18 08:59 Last Admin: 11/04/18 09:00 Dose: 0.6 mg Dextrose (Dextrose 50%) 25 - 50 ml IV UD PRN; Protocol PRN Reason: Hypoglycemia Protocol Stop: 12/01/18 20:51 Diltiazem HCl (Cardizem Cd) 240 mg PO QAM [facility] Stop: 12/02/18 08:59 Last Admin: 11/04/18 09:00 Dose: 240 mg Docusate Sodium (Colace) 100 mg PO BID [facility] Stop: 12/01/18 20:59 Last Admin: 11/04/18 09:00 Dose: 100 mg Doxycycline Hyclate (Vibramycin) 100 mg PO BID@0700,1900 [facility]; Protocol Stop: 11/14/18 18:59 Duloxetine HCl (Cymbalta) 60 mg PO QAM [facility] Stop: 12/02/18 08:59 Last Admin: 11/04/18 09:00 Dose: 60 mg Fentanyl (Duragesic) 50 mcg TD Q72H [facility] Stop: 11/17/18 08:59 Last Admin: 11/03/18 08:33 Dose: 50 mcg Furosemide (Lasix) 40 mg PO BID [facility] Stop: 12/01/18 20:59 Last Admin: 11/04/18 09:00 Dose: 40 mg Glucagon (Glucagen) 1 mg SQ UD PRN; Protocol PRN Reason: Hypoglycemia Protocol Stop: 12/01/18 20:51 Glucose (Glucose 40%) 15 - 30 gm PO UD PRN; Protocol PRN Reason: Hypoglycemia Protocol Stop: 12/01/18 20:51 Glucose (Dex4 Glucose) 4 - 8 tabs PO UD PRN; Protocol PRN Reason: Hypoglycemia Protocol Stop: 12/01/18 20:51 Insulin Aspart (Novolog Flexpen) 0 units SC ACHS [facility] Stop: 12/01/18 20:59 Last Admin: 11/04/18 13:04 Dose: Not Given Ipratropium [place] (Atrovent 0.02% 0.5mg/2.5ml) 0.5 mg INH Q6H PRN PRN Reason: Shortness Of Breath Or Wheezing Stop: 12/01/18 20:51 Levalbuterol HCl (Xopenex 0.63 Mg/3 Ml Neb) 0.63 mg NEB Q6H PRN PRN Reason: Shortness Of Breath Or Wheezing Stop: 12/01/18 20:51 Levothyroxine Sodium (Synthroid) 75 mcg PO DAILYBB [facility] Stop: 12/02/18 06:29 Last Admin: 11/04/18 05:58 Dose: 75 mcg Lorazepam (Ativan) 0.5 mg PO TID PRN PRN Reason: Anxiety Stop: 12/01/18 20:51 Magnesium Oxide (Mag-Ox) 400 mg PO QAM [facility] Stop: 12/02/18 08:59 Last Admin: 11/04/18 09:00 Dose: 400 mg Metolazone (Zaroxolyn) 2.5 mg PO MoFr@0900 [facility] Stop: 12/04/18 08:59 Last Admin: 11/04/18 09:00 Dose: 2.5 mg Metoprolol Tartrate (Lopressor) 25 mg PO BID [facility] Stop: 12/01/18 20:59 Last Admin: 11/04/18 09:00 Dose: 25 mg Miconazole Nitrate (Desenex) 1 appln EXT PRN PRN PRN Reason: skin folds are reddened Stop: 12/03/18 13:03 Miscellaneous (Carbohydrates For Hypoglycemia) 15 - 30 gm PO UD PRN PRN Reason: Hypoglycemia Treatment Stop: 12/01/18 20:51 Miscellaneous (Fentanyl Patch Remove & Waste) 1 ea N/A Q72H [facility] Stop: 12/03/18 08:58 Last Admin: 11/03/18 08:33 Dose: 1 ea Miscellaneous (Fentanyl Patch Check Placement) 1 ea N/A QS [facility] Stop: 12/02/18 07:59 Last Admin: 11/04/18 08:00 Dose: 1 ea Montelukast Sodium (Singulair) 10 mg PO PM [facility] Stop: 12/01/18 20:59 Last Admin: 11/03/18 20:08 Dose: 10 mg Pantoprazole Sodium (Protonix) 40 mg PO DAILYBB [facility] Stop: 12/02/18 06:29 Last Admin: 11/04/18 05:58 Dose: 40 mg Polyethylene Glycol (Miralax Powder Packet) 17 gm PO DAILY PRN PRN Reason: Constipation Stop: 12/01/18 20:51 Potassium Chloride (Klor-Con M20) 40 meq PO BID [facility] Stop: 12/01/18 20:59 Last Admin: 11/04/18 09:00 Dose: 40 meq Pregabalin (Lyrica) 50 mg PO TID [facility] Stop: 12/01/18 20:59 Last Admin: 11/04/18 09:00 Dose: 50 mg Fluticasone/Salmeterol (Advair Diskus 500/50) 1 puffs INH BID [facility] Stop: 12/01/18 20:59 Last Admin: 11/04/18 09:00 Dose: 1 puffs Sennosides (Senokot) 8.6 mg PO BID [facility] Stop: 12/01/18 20:59 Last Admin: 11/04/18 09:00 Dose: 8.6 mg Spironolactone (Aldactone) 25 mg PO QAM [facility] Stop: 12/02/18 08:59 Last Admin: 11/04/18 09:00 Dose: 25 mg Sucralfate (Carafate Tab) 1 gm PO BID [facility] Stop: 12/01/18 20:59 Last Admin: 11/04/18 09:00 Dose: 1 gm Tramadol HCl (Ultram) 50 mg PO QID [facility] Stop: 12/01/18 20:59 Last Admin: 11/04/18 13:01 Dose: 50 mg Trazodone HCl (Desyrel) 50 mg PO HS [facility] Stop: 12/01/18 20:59 Last Admin: 11/03/18 20:05 Dose: 50 mg
[2018-11-04] MEDS: DOXYCYCLINE HYCLATE 100 MG CAP PO SCH (18:10)
--- NOTE | 2018-11-04 20:16 | Hospitalist Progress Note ---
Date of Service November 04, 2018 Assessment & Plan (1) Swelling of lower extremity: Swelling of RLE after fall. Extensive ecchymoses and erythema. Possible cellulitis. Started on IV antibiotics. Procalcitonin < 0.05. Blood cultures negative. May just have hematoma with inflammation (but difficult to be certain). Transition to oral antibiotic therapy for cellulitis. Consult Ortho regarding hematoma. (2) Atrial fibrillation: Rate controlled. Continue metoprolol and diltiazem. Titrate warfarin. (3) Diastolic CHF: Compensated. (4) Hypertension: Continue metoprolol and diltiazem. (5) DM type 2 (diabetes mellitus, type 2): Hgb A1C = 6.2. FBS = 113. (6) CKD (chronic kidney disease), stage III: Creatinine 1.31. Follow. (7) Supratherapeutic INR: INR 4.0 day of admission. Holding warfarin due to hematoma RLE. Follow. (8) DVT prophylaxis: On warfarin with supratherapeutic INR at time of admission. (9) Discharge planning issues: Anticipated return to [facility]. Family Medicine follow-up with Dr. Lemus. Subjective Recheck for multiple problems. Pt seen in her room around 1320. Persistent swelling of right leg, but not much pain. No fever. No chest pain. No cough or SOB. No nausea, vomiting, diarrhea. No urinary symptoms. Physical Exam 2 Vital Signs (Past 24 Hours): Last Vital Signs Temp 36.8 C 11/04/18 15:56 Pulse 77 11/04/18 15:56 Resp 18 11/04/18 15:56 BP 116/66 11/04/18 15:56 Pulse Ox 92 11/04/18 15:56 Constitutional: WD/WN, vitals as above no acute distress Respiratory: normal respiratory effort, lungs clear to auscultation no respiratory distress Cardiovascular: Rate/Rhythm: + abnormal rhythm (irregularly irregular) Heart Sounds: no gallop Extremities: + edema (RLE) Gastrointestinal (Abdomen): Inspection/Auscultation: normal bowel sounds Percussion/Palpation: abdomen soft; abdomen nontender Musculoskeletal: Extremities: + lower leg abnormality (hematoma right lateral knee; ecchymoses, erythema, swelling right leg) Right Psychiatric: A+Ox3, euthymic affect Results & Data Laboratory Results Laboratory Results - last 24 hr 11/04/18 11/04/18 11/04/18 07:11 07:11 07:11 WBC 6.80 RBC 3.49 L Hgb 11.7 L Hct 35.4 L MCV 101.4 H MCH 33.5 MCHC 33.1 RDW Std Deviation 58.5 H RDW Coeff of Kenneth 16.0 H Plt Count 184 MPV 10.3 PT 18.7 H INR 1.9 H Sodium 136 Potassium 3.3 L Chloride 101 Carbon Dioxide 28 Anion Gap 7.0 BUN 30 H Creatinine 1.31 H Est Cr Clr Drug Dosing 47.6 Est GFR ( Amer) 45.4 Est GFR (Non-Af Amer) 39.2 BUN/Creatinine Ratio 23.0 H Glucose 113 H Calcium 8.7
[2018-11-04] MEDS: TRAZODONE HCL 50 MG TAB PO SCH (20:55)
[2018-11-04] MEDS: MONTELUKAST SODIUM 10 MG TABLET PO SCH (20:56)
[2018-11-05] MEDS: CHECK FENTANYL PATCH PLACEMENT SCH ×3 (00:16→17:14)
[2018-11-05] MEDS: PANTOprazole 40 MG TAB PO SCH (06:25)
[2018-11-05] MEDS: LEVOTHYROXINE SODIUM 75 MCG TABLET PO SCH (06:25)
[2018-11-05] MEDS: DOXYCYCLINE HYCLATE 100 MG CAP PO SCH ×2 (06:25→19:11)
[2018-11-05 08:03] LABS: INR 1.5 (0.9-1.1)
[2018-11-05] MEDS: TRAMADOL HCL 50 MG TABLET PO SCH ×4 (08:14→22:35)
[2018-11-05] MEDS: PREGABALIN 50 MG CAP PO SCH ×3 (08:14→22:35)
[2018-11-05] MEDS: FLUTICASONE/SALMETEROL (ADVAIR) 500/50 INH 14 PUFF INH SCH ×2 (08:14→22:23)
[2018-11-05] MEDS: SENNA 8.6 MG TAB PO SCH ×2 (08:15→22:27)
[2018-11-05] MEDS: SUCRALFATE 1 GM TAB PO SCH ×2 (08:15→22:26)
[2018-11-05] MEDS: FUROSEMIDE 40 MG TAB PO SCH (08:15)
[2018-11-05] MEDS: BusPIRone 15 MG TAB PO SCH ×2 (08:15→22:27)
[2018-11-05] MEDS: POTASSIUM CHLORIDE 20 MEQ TABCR PO SCH ×2 (08:15→22:29)
[2018-11-05] MEDS: ALLOPURINOL 100 MG TAB PO SCH (08:16)
[2018-11-05] MEDS: dilTIAZem HCL 240 MG CAPCR PO SCH (08:16)
[2018-11-05] MEDS: COLCHICINE 0.6 MG TAB PO SCH (08:16)
[2018-11-05] MEDS: MAGNESIUM OXIDE 400 MG TAB PO SCH (08:16)
[2018-11-05] MEDS: METOPROLOL TARTRATE 25 MG TAB PO SCH ×2 (08:16→22:25)
[2018-11-05] MEDS: SPIRONOLACTONE 25 MG TAB PO SCH (08:16)
[2018-11-05] MEDS: DOCUSATE SODIUM 100 MG CAP PO SCH ×2 (08:17→22:25)
[2018-11-05] MEDS: DULOXETINE HCL 60 MG CAP PO SCH (08:17)
[2018-11-05] MEDS: INSULIN ASPART 100 UNITS/ML 3 ML PEN SC SCH ×4 (08:17→22:30)
[2018-11-05 08:23] LABS: BUN Creatinine Ratio 26.8 (10-20); C Reactive Protein 1.89 mg/dl (0-0.29); Creatinine Clr Calc Pharmacy 45.7 ml/min; Est GFR (African American) 43.4; Est GFR (Non-African American) 37.4; Potassium 2.9 mmol/L (3.5-5.1)
--- NOTE | 2018-11-05 11:02 | Orthopedic Progress Note ---
Date of Service November 05, 2018 Assessment & Plan (1) Hematoma of right lower extremity: Continue current treatment plan. Ice and elevate as needed for pain/swelling. Use walker to assist with ambulation Weight bear as tolerated right lower extremity. Nika stocking right leg. Will recheck ESR and CRP later this week as outpatient. Ok from ortho standpoint for discharge to [facility]. Follow up as scheduled. Subjective Patient doing well. States that she has been able to walk, does think that it' s improving. Has not had NIKA stocking on right leg. Physical Exam 2 Vital Signs (Past 24 Hours): Last Vital Signs Temp 36.7 C 11/05/18 07:33 Pulse 71 11/05/18 07:33 Resp 16 11/05/18 07:33 BP 120/71 11/05/18 07:33 Pulse Ox 93 11/05/18 07:33 Physical Exam: no foot edema, erythema throughout lower leg. No calf tenderness, diffuse ecchymosis. Tense hematoma anteromedial aspect of right leg. Tolerates ROM right knee. No knee effusion, able to independently SLR. Results & Data Laboratory Results 11/05/18 11/05/18 11/05/18 Range/Units 07:32 07:32 07:32 ESR 77 H (0-21) mm/hr PT 15.0 H (9.0-12.0) Seconds INR 1.5 H (0.9-1.1) Sodium 136 (136-145) mmol/L Potassium 2.9 L (3.5-5.1) mmol/L Chloride 100 (98-107) mmol/L Carbon Dioxide 29 (21-32) mmol/L Anion Gap 7.0 (3-11) BUN 37 H (7-18) mg/dl Creatinine 1.36 H (0.6-1.2) mg/dl Est Cr Clr Drug Dosing 45.7 ml/min Est GFR ( Amer) 43.4 Est GFR (Non-Af Amer) 37.4 BUN/Creatinine Ratio 26.8 H (10-20) Glucose 117 H (70-99) mg/dl Calcium 9.0 (8.5-10.1) mg/dl C-Reactive Protein 1.89 H (0-0.29) mg/dl
[2018-11-05] MEDS ORDERED: POTASSIUM CHLORIDE 20 MEQ TABCR PO ONE (11:30)
[2018-11-05] MEDS: ARTIFICIAL TEARS OPB SCH ×2 (13:21→22:24)
--- NOTE | 2018-11-05 16:49 | Hospitalist Progress Note ---
Date of Service November 05, 2018 Assessment & Plan (1) Swelling of lower extremity: Swelling of RLE after fall. Extensive ecchymoses and erythema. Possible cellulitis. Started on IV antibiotics. Procalcitonin < 0.05. Blood cultures negative. May just have hematoma with inflammation (but difficult to be certain). Transitioned to oral antibiotic therapy for cellulitis. Consulted Ortho regarding hematoma; nonoperative management recommended. (2) Atrial fibrillation: Rate controlled. Continue metoprolol and diltiazem. Titrate warfarin. (3) Diastolic CHF: Compensated. (4) Hypertension: Continue metoprolol and diltiazem. (5) DM type 2 (diabetes mellitus, type 2): Hgb A1C = 6.2. FBS = 117. (6) CKD (chronic kidney disease), stage III: Creatinine 1.36. Follow. (7) Supratherapeutic INR: INR 4.0 day of admission. Holding warfarin due to hematoma RLE. Follow. (8) DVT prophylaxis: On warfarin with supratherapeutic INR at time of admission. (9) Discharge planning issues: Anticipated return to [facility]. Family Medicine follow-up with Dr. Lemus. Subjective Recheck for multiple problems. Pt seen in her room around 1150. No fever. Persistent swelling of right leg. No chest pain. No cough or SOB. No nausea, vomiting, diarrhea. No urinary symptoms. Physical Exam 2 Vital Signs (Past 24 Hours): Last Vital Signs Temp 36.7 C 11/05/18 15:24 Pulse 87 11/05/18 15:24 Resp 20 11/05/18 15:24 BP 86/63 L 11/05/18 15:24 Pulse Ox 92 11/05/18 15:24 Constitutional: WD/WN, vitals as above no acute distress Respiratory: normal respiratory effort, lungs clear to auscultation no respiratory distress Cardiovascular: Rate/Rhythm: + abnormal rhythm (irregularly irregular) Heart Sounds: no gallop Extremities: + edema (RLE) Gastrointestinal (Abdomen): Inspection/Auscultation: normal bowel sounds Percussion/Palpation: abdomen soft; abdomen nontender Musculoskeletal: Extremities: + lower leg abnormality (hematoma right lateral knee; ecchymoses, erythema, swelling right leg) Psychiatric: A+Ox3, euthymic affect Results & Data Laboratory Results Laboratory Results - last 24 hr 11/05/18 11/05/18 11/05/18 07:32 07:32 07:32 ESR 77 H PT 15.0 H INR 1.5 H Sodium 136 Potassium 2.9 L Chloride 100 Carbon Dioxide 29 Anion Gap 7.0 BUN 37 H Creatinine 1.36 H Est Cr Clr Drug Dosing 45.7 Est GFR ( Amer) 43.4 Est GFR (Non-Af Amer) 37.4 BUN/Creatinine Ratio 26.8 H Glucose 117 H Calcium 9.0 C-Reactive Protein 1.89 H
[2018-11-05] MEDS: ACETAMINOPHEN 325 MG TAB PO PRN (19:08)
[2018-11-05] MEDS: MONTELUKAST SODIUM 10 MG TABLET PO SCH (22:27)
[2018-11-05] MEDS: TRAZODONE HCL 50 MG TAB PO SCH (22:28)
[2018-11-06] MEDS: CHECK FENTANYL PATCH PLACEMENT SCH ×2 (01:15→09:30)
[2018-11-06] MEDS: LEVOTHYROXINE SODIUM 75 MCG TABLET PO SCH (05:59)
[2018-11-06] MEDS: PANTOprazole 40 MG TAB PO SCH (06:00)
[2018-11-06 07:35] LABS: Hematocrit (blood only) 36.4 % (37-47); Hemoglobin 12.2 g/dL (12.0-16.0); Mean Corpuscular Hgb Conc 33.5 g/dL (32-36); Mean Corpuscular Volume 100.6 fL (80-100); Mean Platelet Volume 10.5 fL (7.4-10.4); Platelet Count 214 K/uL (130-400); RDW Coefficient of Variation 15.9 % (11.5-14.5); Red Blood Count 3.62 M/uL (4.2-5.4); White Blood Count 6.36 K/uL (4.8-10.8)
[2018-11-06 07:51] LABS: INR 1.3 (0.9-1.1); Prothrombin Time 12.9 Seconds (9.0-12.0)
[2018-11-06 08:22] LABS: BUN Creatinine Ratio 30.8 (10-20); Calcium 8.8 mg/dl (8.5-10.1); Creatinine Clr Calc Pharmacy 40.3 ml/min; Est GFR (African American) 39.8; Est GFR (Non-African American) 34.4; Potassium 3.9 mmol/L (3.5-5.1)
[2018-11-06] MEDS: COLCHICINE 0.6 MG TAB PO SCH (09:09)
[2018-11-06] MEDS: DULOXETINE HCL 60 MG CAP PO SCH (09:09)
[2018-11-06] MEDS: SUCRALFATE 1 GM TAB PO SCH (09:09)
[2018-11-06] MEDS: METOPROLOL TARTRATE 25 MG TAB PO SCH (09:09)
[2018-11-06] MEDS: ALLOPURINOL 100 MG TAB PO SCH (09:10)
[2018-11-06] MEDS: DOCUSATE SODIUM 100 MG CAP PO SCH (09:10)
[2018-11-06] MEDS: DOXYCYCLINE HYCLATE 100 MG CAP PO SCH (09:11)
[2018-11-06] MEDS: SENNA 8.6 MG TAB PO SCH (09:11)
[2018-11-06] MEDS: dilTIAZem HCL 240 MG CAPCR PO SCH (09:12)
[2018-11-06] MEDS: SPIRONOLACTONE 25 MG TAB PO SCH (09:12)
[2018-11-06] MEDS: MAGNESIUM OXIDE 400 MG TAB PO SCH (09:13)
[2018-11-06] MEDS: POTASSIUM CHLORIDE 20 MEQ TABCR PO SCH (09:13)
[2018-11-06] MEDS: BusPIRone 15 MG TAB PO SCH (09:13)
[2018-11-06] MEDS: FLUTICASONE/SALMETEROL (ADVAIR) 500/50 INH 14 PUFF INH SCH (09:13)
[2018-11-06] MEDS: INSULIN ASPART 100 UNITS/ML 3 ML PEN SC SCH ×2 (09:14→12:43)
[2018-11-06] MEDS: ARTIFICIAL TEARS OPB SCH (09:15)
[2018-11-06] MEDS: fentaNYL 50 MCG/HR TDSY TD SCH (09:31)
[2018-11-06] MEDS: PREGABALIN 50 MG CAP PO SCH ×2 (09:32→14:23)
[2018-11-06] MEDS: TRAMADOL HCL 50 MG TABLET PO SCH ×2 (09:36→14:23)
--- NOTE | 2018-11-06 11:42 | Hospitalist Progress Note ---
Date of Service November 06, 2018 Assessment & Plan (1) Swelling of lower extremity: Swelling of RLE after fall. Extensive ecchymoses and erythema. Suspected cellulitis. Started on IV antibiotics. Procalcitonin < 0.05. Blood cultures negative. C-reactive protein elevated, but nonspecific finding. May just have hematoma with inflammation without cellulitis, but difficult to be certain. Transitioned to oral antibiotic therapy with doxycyline for possible cellulitis to complete 10 day course of treatment. Consulted Ortho regarding hematoma; nonoperative management recommended. (2) Atrial fibrillation: Rate controlled. Continue metoprolol and diltiazem. Warfarin was held because of hematoma RLE and elevated INR. INR day of discharge 1.3. Restart warfarin. (3) Diastolic CHF: Compensated. Furosemide held due to rising creatinine and hypokalemia. Restart furosemide /. (4) Hypertension: Continue metoprolol and diltiazem. (5) DM type 2 (diabetes mellitus, type 2): Diet-controlled. Hgb A1C = 6.2. FBS = 116. (6) CKD (chronic kidney disease), stage III: Creatinine 1.46 day of discharge. Furosemide held x 2 doses. Resume furosemide /. Follow labs.. (7) Hypokalemia: K as low as 2.9. Replaced. K day of discharge = 3.9. Follow. (8) Supratherapeutic INR: INR 4.0 day of admission. Held warfarin due to hematoma RLE. Follow. (9) DVT prophylaxis: On warfarin with supratherapeutic INR at time of admission. (10) Discharge planning issues: Returning to [facility]. Family Medicine follow-up with Dr. Lemus. Subjective Recheck for multiple problems. Pt seen in her room around 1100. No fever. Persistent swelling of right leg. Able to ambulate without too much difficulty. No fever. No chest pain. No cough or SOB. No nausea, vomiting, diarrhea. No urinary symptoms. Physical Exam 2 Vital Signs (Past 24 Hours): Last Vital Signs Temp 36.8 C 11/06/18 07:18 Pulse 70 11/06/18 07:18 Resp 16 11/06/18 07:18 BP 131/69 11/06/18 07:18 Pulse Ox 98 11/06/18 07:18 Constitutional: WD/WN, vitals as above no acute distress Respiratory: no respiratory distress Auscultation: + wheezes (minimal, diffuse) Cardiovascular: Rate/Rhythm: + abnormal rhythm (irregularly irregular) Heart Sounds: no gallop Extremities: + edema (RLE) Gastrointestinal (Abdomen): Inspection/Auscultation: normal bowel sounds Percussion/Palpation: abdomen soft; abdomen nontender Musculoskeletal: Extremities: + lower leg abnormality (hematoma right lateral knee; ecchymoses, erythema, swelling right leg) Psychiatric: A+Ox3, euthymic affect Results & Data Laboratory Results Laboratory Results - last 24 hr 11/06/18 11/06/18 11/06/18 07:08 07:08 07:08 WBC 6.36 RBC 3.62 L Hgb 12.2 Hct 36.4 L MCV 100.6 H MCH 33.7 MCHC 33.5 RDW Std Deviation 58.0 H RDW Coeff of Kenneth 15.9 H Plt Count 214 MPV 10.5 H PT 12.9 H INR 1.3 H Sodium 136 Potassium 3.9 D Chloride 101 Carbon Dioxide 28 Anion Gap 7.0 BUN 45 H Creatinine 1.46 H Est Cr Clr Drug Dosing 40.3 Est GFR ( Amer) 39.8 Est GFR (Non-Af Amer) 34.4 BUN/Creatinine Ratio 30.8 H Glucose 116 H Calcium 8.8
--- NOTE | 2018-11-06 11:59 | Discharge Summary ---
Date of Service Date of admission: 11/01/18 Date of discharge: 11/06/18 Admission HPI Per Admitting Provider Pt is 78 y/o F with PMH a-fib on coumadin, h/o PE, obesity hypoventilation syndrome, asthma, COPD, chronic diastolic HF, anxiety, HTN, hyperuricemia, CKD III, h/o MRSA presented to ER from [facility] for RLE edema, erythema, warmth over the past several days. Pt reports fall last week had mechanical fall and has ecchymosis to R knee and R lower lateral leg, then developed redness. Reports chronic BLE edema, however increased to RLE with associated erythema. Reports still able to ambulate but has some pain. Was started on Augementin BID on 10/30/18. Today noticed no improvement and Doxycyline was started and pt referred to ER. Denies any fever/chills, N/V. Denies diaphoresis , diarrhea, constipation, KUMARI, dizziness, syncope, vision changes, neck pain, CP , SOB, orthopnea, palpitations, cough, sore throat, choking, otalgia, rhinorrhea , abdominal pain, paresthesias, weakness, other rashes, urinary symptoms. Admission Exam Per Admitting Provider General: no distress, obese Head: normocephalic, atraumatic Eyes: conjunctiva non-injected, anicteric ENT: normal inspection external ears, nose, mucous membranes moist Neck: supple, trachea midline, non-tender Lungs: clear, no respiratory distress, no wheezing/rhonchi/rales CV: irregularly irregular, rate 90 Abd: normal BS, distended secondary to adipose tissue, soft, non-tender Ext: RLE: R knee with ecchymosis, right lateral leg just inferior to knee with hematoma, mild tenderness to palpation, +erythema & edema from knee to foot with warmth LLE: non-tender, edema 1+ Neuro: A&O x 3, no focal deficits noted, normal affect Skin: warm, dry Principal Diagnosis erythema and swelling right lower extremity hematoma and possible cellulitis Discharge Data Allergies Allergy/AdvReac Type Severity Reaction Status Date / Time meperidine [From Demerol] Allergy Unknown ON [facility] Verified 11/01/18 15:46 [facility] morphine AdvReac Intermediate vomiting Verified 11/01/18 15:46 oxycodone AdvReac Intermediate vomit blood Verified 11/01/18 15:46 propoxyphene AdvReac Intermediate abd vomit Verified 11/01/18 15:46 blood tramadol AdvReac Intermediate vomiting Verified 11/01/18 15:46 Bactrim AdvReac Mild GI SYMPTOMS Verified 03/06/18 21:06 codeine AdvReac Mild vomiting Verified 11/01/18 15:46 olmesartan AdvReac Mild GI SYMPTOMS Verified 11/01/18 15:46 Sulfa (Sulfonamide AdvReac Mild GI SYMPTOMS Verified 11/01/18 15:46 Antibiotics) sulfamethoxazole AdvReac Mild GI SYMPTOMS Verified 11/01/18 15:46 trimethoprim AdvReac Mild GI SYMPTOMS Verified 11/01/18 15:46 carisoprodol AdvReac Unknown GI SYMPTOMS Verified 11/01/18 15:46 Consultations 11/01/18 16:56 ED Decision to Admit Stat 11/01/18 20:52 Consult Case Management - Discharge Planning Routine 11/04/18 13:37 Consult Orthopedic Surgery Routine Hospital Course (1) Swelling of lower extremity: Swelling of RLE after fall. Extensive ecchymoses and erythema. Suspected cellulitis. Started on IV antibiotics. Procalcitonin < 0.05. Blood cultures negative. C-reactive protein elevated, but nonspecific finding. May just have hematoma with inflammation without cellulitis, but difficult to be certain. Transitioned to oral antibiotic therapy with doxycyline for possible cellulitis to complete 10 day course of treatment. Consulted Ortho regarding hematoma; nonoperative management recommended. (2) Atrial fibrillation: Rate controlled. Continue metoprolol and diltiazem. Warfarin was held because of hematoma RLE and elevated INR. INR day of discharge 1.3. Restart warfarin. (3) Diastolic CHF: Compensated. Furosemide held due to rising creatinine and hypokalemia. Restart furosemide 2/7. (4) Hypertension: Continue metoprolol and diltiazem. (5) DM type 2 (diabetes mellitus, type 2): Diet-controlled. Hgb A1C = 6.2. FBS = 116. (6) CKD (chronic kidney disease), stage III: Creatinine 1.46 day of discharge. Furosemide held x 2 doses. Resume furosemide 2/7. Follow labs.. (7) Hypokalemia: K as low as 2.9. Replaced. K day of discharge = 3.9. Follow. (8) Supratherapeutic INR: INR 4.0 day of admission. Held warfarin due to hematoma RLE. Follow. (9) DVT prophylaxis: On warfarin with supratherapeutic INR at time of admission. (10) Discharge planning issues: Returning to [facility]. Family Medicine follow-up with Dr. Lemus. Outpatient follow-up with Orthopedics. Total Time Total Time Spent Total Time Spent (In Minutes): 45 Discharge Plan Discharge Items Patient Disposition: Transfer [facility] Reason For Visit: erythema and swelling right leg Discharge Diagnosis: hematoma right lower extremity with possible cellulitis Condition: Good Discharge Goals: Decrease discomfort Activity: As commented below Activity Comment: As tolerated with walker and assistance. Weightbearing: Right weightbearing Weightbearing Comment: as tolerated, with walker Non-emergency contact: Primary Care Provider and Hospitalist Call non-emergency contact if: you have any medication questions Follow-up/Referrals: Viry Lemus MD [Primary Care Provider] - Spencer Cheng MD [Physician] - 11/08/18 1:00 pm Diet: Carb Consistent or DM2 and Heart Healthy Addtl Provider Instructions: Ice to right leg as needed for pain/swelling Elevate right lower extremity as needed for pain/swelling. Thigh high NIKA stocking right lower extremity, on during day, off at night. Range of motion right lower extremity joints as tolerated. Use walker to assist with ambulation, weight bear as tolerated right lower extremity. Please check INR and basic metabolic profile Q Mon & Thurs until stable, then as indicated. Thank you for receiving this patient in transfer. Please call or TigerText if you have any questions. Ramon Floyd Prescriptions: Continue furosemide [Lasix] 40 mg Tablet 40 mg PO AMPM RF: 0 metolazone 2.5 mg Tablet 2.5 mg PO 2XWK RF: 0 sennosides [Senna-Gen] 8.6 mg Tablet 8.6 mg PO AMHS RF: 0 acetaminophen 650 mg Suppository 650 mg [place] Q6H PRN (Reason: TEMP >100.4, IF NOT TAKING PO) RF: 0 ipratropium-albuterol 0.5 mg-3 mg(2.5 mg base)/3 mL Solution For Nebulization 3 ml INHALATION Q4 PRN (Reason: Shortness Of Breath Or Wheezing) RF: 0 trazodone 50 mg Tablet 50 mg PO HS RF: 0 polyethylene glycol 3350 [Miralax] 17 gram Powder In Packet 17 g PO Q OTHER DAY RF: 0 simethicone [Gas-X Ultra-Strength] 180 mg Capsule 180 mg PO PC RF: 0 ondansetron HCl [Zofran] 8 mg Tablet 8 mg PO Q8 PRN (Reason: Nausea) RF: 0 diltiazem HCl [Cardizem CD] 240 mg Capsule,Extended Release 24hr 240 mg PO QAM RF: 0 sucralfate 1 gram Tablet 1 g PO AMPM RF: 0 miconazole nitrate [Desenex] 2 % Powder 1 applic TOPICAL BID RF: 0 allopurinol 100 mg Tablet 200 mg PO QAM RF: 0 tramadol 50 mg Tablet 50 mg PO QID RF: 0 spironolactone 25 mg Tablet 25 mg PO QAM RF: 0 warfarin [Coumadin] 3 mg Tablet 3 mg PO 3XWK RF: 0 warfarin [Coumadin] 3 mg Tablet 1.5 mg PO 4XWK RF: 0 pantoprazole 20 mg Tablet,Delayed Release (Dr/Ec) 20 mg PO DAILYBB RF: 0 levothyroxine 75 mcg Tablet 75 mcg PO DAILYBB RF: 0 lorazepam 0.5 mg Tablet 0.5 mg PO TID PRN (Reason: Anxiety) RF: 0 magnesium hydroxide [Milk of Magnesia] 400 mg/5 mL Suspension 30 ml PO DAILY PRN (Reason: NO BM X 3 DAYS.) RF: 0 carboxymethylcellulose sodium [Refresh Tears] 0.5 % Drops 1 drp OPB BID RF: 0 meclizine 25 mg Tablet 25 mg PO TID PRN (Reason: Dizziness) RF: 0 bisacodyl [Dulcolax (bisacodyl)] 10 mg Suppository 10 mg [place] DAILY PRN (Reason: NO RESULTS FROM MOM, DAY 5) RF: 0 buspirone 30 mg Tablet 15 mg PO AMHS RF: 0 ferrous sulfate 325 mg (65 mg iron) Tablet 325 mg PO AMHS RF: 0 fluticasone-salmeterol [Advair Diskus] 500-50 mcg/dose Blister With Device 1 inh INHALATION AMHS RF: 0 sodium phosphates [Fleet Enema] 19-7 gram/118 mL Enema 118 ml [place] DAILY PRN (Reason: NO RESULTS FROM SUPPOSITORY) RF: 0 docusate sodium [Colace] 100 mg Capsule 100 mg PO AMHS RF: 0 montelukast 10 mg Tablet 10 mg PO PM RF: 0 colchicine 0.6 mg Tablet 0.6 mg PO QAM RF: 0 magnesium oxide 250 mg magnesium Tablet 250 mg PO QAM RF: 0 metoprolol tartrate 25 mg Tablet 25 mg PO AMPM RF: 0 duloxetine 60 mg Capsule,Delayed Release(Dr/Ec) 60 mg PO QAM RF: 0 pregabalin [Lyrica] 50 mg Capsule 50 mg PO PC RF: 0 acetaminophen [Tylenol] 325 mg Capsule 650 mg PO Q4 PRN (Reason: Fever Or Pain) RF: 0 melatonin 10 mg Tablet 10 mg PO HS RF: 0 [id number]-st [Glucosamine Chondroitin PLUS] 456-693-83-54 mg Capsule 1 tab PO PC RF: 0 potassium chloride 20 mEq Tablet Extended Release 40 meq PO AMPM RF: 0 Discontinued amoxicillin-pot clavulanate [Augmentin] 875-125 mg Tablet 1 tab PO ONCE RF: 0 Stand-Alone Forms: My [facility] Skilled Items Patient informed of condition?: Yes DNR: No Discharge Level of Care: Skilled Communicable Disease: No Discharge Prognosis: Improving Admission Data Admit Date/Time: 11/01/18 17:41 Attending Provider: Ramon Floyd Admit Provider: Austin Arrieta Primary Care Provider: Viry Lemus Other Providers: Austin Arrieta ; Spencer Cheng Service: Telemetry
== END 2018-11-06 14:39 | DRG 605 ==
LOC: ED 15:00 → 2W 17:41

== ENCOUNTER 2018-11-15 14:02 | Inpatient (IN) ==
[2018-11-15] MEDS ORDERED: ALBUT/IPRATROP 3MG/0.5MG NEB 3 ML VIAL NEB ONE (14:35)
[2018-11-15] MEDS ORDERED: methylPREDNISolone 125 MG/2 ML VIAL IV STA (14:35)
[2018-11-15 14:42] LABS: Basophils # (auto) 0.01 K/uL (0-0.2); Basophils % (auto) 0.1 %; Eosinophils # (auto) 0.07 K/uL (0-0.5); Eosinophils % (auto) 0.8 %; Hemoglobin 12.9 g/dL (12.0-16.0); Immature Granulocytes # (auto) 0.02 K/uL (0.00-0.02); Immature Granulocytes % (auto) 0.2 %; Lymphocytes # (auto) 0.67 K/uL (1.2-3.4); Lymphocytes % (auto) 7.7 %; Mean Corpuscular Hgb Conc 33.1 g/dL (32-36); Mean Corpuscular Volume 102.9 fL (80-100); Mean Platelet Volume 10.6 fL (7.4-10.4); Monocytes # (auto) 0.94 K/uL (0.11-0.59); Monocytes % (auto) 10.8 %; Neutrophils # (auto) 6.97 K/uL (1.4-6.5); Neutrophils % (auto) 80.4 %; Platelet Count 213 K/uL (130-400); RDW Coefficient of Variation 16.9 % (11.5-14.5); RDW Standard Deviation 63.6 fL (36.4-46.3); Red Blood Count 3.79 M/uL (4.2-5.4); White Blood Count 8.68 K/uL (4.8-10.8)
[2018-11-15] MEDS ORDERED: CEFEPIME 1,000 MG in SYRINGE 0 ML IV STA (14:42)
[2018-11-15] MEDS ORDERED: VANCOMYCIN CONSULT ACTIVE PRN ×2 (14:42→18:52)
[2018-11-15] MEDS ORDERED: VANCOMYCIN HCL 2,500 MG in SODIUM CHLORIDE 0.9% 500 ML IV ONE (14:42)
[2018-11-15 14:51] LABS: Albumin Level 3.1 gm/dl (3.4-5.0); Bilirubin Direct 0.2 mg/dl (0-0.2); Blood Urea Nitrogen 35 mg/dl (7-18); Calcium 8.7 mg/dl (8.5-10.1); Carbon Dioxide 29 mmol/L (21-32); Chloride 101 mmol/L (98-107); Creatinine Clr Calc Pharmacy 46.8 ml/min; Est GFR (African American) 43.4; Est GFR (Non-African American) 37.4; Glucose 148 mg/dl (70-99); Magnesium 2.2 mg/dl (1.8-2.4); Potassium 3.8 mmol/L (3.5-5.1); Sodium 136 mmol/L (136-145)
[2018-11-15 14:59] LABS: Alanine Aminotransferase 14 U/L (12-78); Albumin Globulin Ratio 0.7 (0.9-2); Alkaline Phosphatase 133 U/L (45-117); Aspartate Aminotransferase 15 U/L (15-37); Bilirubin,Total 0.6 mg/dl (0.2-1); Globulin 4.2 gm/dl (2.5-4.0); INR 2.3 (0.9-1.1); NT Pro B Type Natriuretic Pept 679 pg/ml (0-1800); Partial Thromboplastin Ratio 1.6; Partial Thromboplastin Time 41.6 Seconds (21.0-31.0); Prothrombin Time 22.4 Seconds (9.0-12.0); Total Protein 7.3 gm/dl (6.4-8.2); Troponin I < 0.015 ng/ml (0-0.045)
[2018-11-15 15:20] LABS: Influenza B virus by PCR Neg for Influ B (Neg)
[2018-11-15 15:25] LABS: Base Excess VBG 5.7 mEq/L; HCO3 VBG 33 mmol/L; PCO2 VBG 60 mmHg (38-50); PO2 VBG 25 mmHg; pH VBG 7.36 (7.36-7.41)
[2018-11-15 15:26] LABS: Oxygen Saturation VBG < 60.0 %
[2018-11-15] MEDS ORDERED: OSELTAMIVIR PHOSPHATE 6 MG/ML SUSP PO STA (15:27)
[2018-11-15] MEDS ORDERED: OSELTAMIVIR PHOSPHATE SUSP 75 MG/12.5 ML UDP PO STA (15:46)
[2018-11-15 15:47] LABS: Appearance Urine Cloudy (Clear); Bacteria Urine Automated 2+ (Negative); Bilirubin Urine Negative (Negative); Cast Urine Automated 0 /lpf (0-5); Color Urine Yellow; Epithelial Cell Urine Auto 0-5 /lpf (0-5); Glucose Urine UA Negative (Negative); Ketones Urine Negative (Negative); Leukocyte Esterase Urine 3+ (Negative); Nitrite Urine Negative (Negative); Protein Urine Negative (Negative); Specific Gravity Urine 1.009 (1.000-1.030); Urobilinogen Urine Negative (Negative); WBC Urine Automated >30 /hpf (0-5); pH Urine 6.5 (4.5-7.5)
--- NOTE | 2018-11-15 16:00 | XRay Report ---
XR chest 1V portable HISTORY: Sepsis COMPARISON: Chest 12/24/2017. Chest CT 04/08/2018. FINDINGS: No pneumothorax. No pleural fusions. The heart remains enlarged. The patient is rotated. A few linear density left lung base favor scarring or atelectasis. Hazy appearance to the right midlung zone is noted. This is likely due to the overlapping old, healed rib fractures. However, a small ove rlapping airspace opacity cannot be excluded. No evidence for pulmonary edema. Advanced degenerative changes within the shoulders. IMPRESSION: Possible small airspace opacity within the right midlung zone. However, this could be due to the old, healed rib fractures. Electronically signed by: Neo Alcazar M.D. 11/15/2018 3:58 PM
--- NOTE | 2018-11-15 17:10 | History & Physical Report ---
Date of Service November 15, 2018 Assessment & Plan (1) Influenza A: Present on admission with flu like symptoms with productive cough associated with SOB and fever Meet criteria for sepsis on admission with tachycardia, fever and positive influenza Positive Influenza PCR A Temp 38.3 on admission Received Tamiflu in the ER Continue Tamiflu x 5 days Will keep on droplet precaution (2) Respiratory failure: Possible due to Influenza A with possible Pneumonia CXR showed Possible small airspace opacity within the right midlung zone. possible hospital acquired pneumonia Received Vanco and IV cefepime and solumedrol in the ER Will check MRSA nasal swab check blood cx and urine cx and sputum cx Procalcitonin and lactic acid negative Continue Vanco for now, will d/c if MRSA nasal swab negative Continue IV cefepime Continue oxygen supplement and duoneb treatment Will add prednisone 40mg mg daily Will repeat CXR in am (3) Hyperuricemia: continue allopurinol, colchicine (4) CKD (chronic kidney disease), stage III: Cr: 1.3. At baseline monitor renal functions (5) Atrial fibrillation: Denies palpitations, CP, SOB Continue cardizem, metoprolol On Coumadin with INR 2.3 Monitor PT/INR (6) Diastolic CHF: CXR showed no evidence for pulmonary edema continue lasix, spironolactone, metolazone Stable (7) Hypothyroidism: Continue Levothyroxine Stable Asthma Coarse BS with slight wheezing Continue Advair, Singulair Received solumedrol in the ER Will start on prednisone 40mg xopenex/atrovent nebs prn SOB DM type 2 Diet controlled Recent A1c: 6.2 on 11/18 Novolog sliding scale per protocol Monitor BS Chronic Back pain Reviewed out med showed Fentanyl patch Pt has not fentanyl patch one currently Denies any pain currently Will continue tramadol and tylenol prn. (8) DVT prophylaxis: On coumadin INR therapeutic CODE STATUS FULL with NO Mech Ventilation as per my discussion with patient History of Present Illness Chief Complaint: Flu like symptoms Primary Care Provider: Viry Lemus 78 y/o F with PMH a-fib on coumadin, h/o PE, obesity hypoventilation syndrome, asthma, COPD, chronic diastolic HF, anxiety, HTN, hyperuricemia, CKD III, h/o MRSA , recently discharged on 11/06/18 for extensive ecchymoses and erythema of right lower extremity for possible cellulitis. She was discharged on doxycycline and completed the course. As per usp note, pt developed flu like symptoms yesterday. Pt said that she developed a yellowish productive cough associated with SOB. Pt developed a fever today with Temp 100.6 associated with chills. She said that she has been required more oxygen in the last 2 days. She said that before she was using the oxygen with ambulation. In the ER influenza type A PCR positive. Denies any diaphoresis, diarrhea, constipation, KUMARI, dizziness, syncope, chest pain, palpitations and urinary symptoms. Allergies Allergy/AdvReac Type Severity Reaction Status Date / Time meperidine [From Demerol] Allergy Unknown ON [facility] Verified 11/15/18 17:11 [facility] morphine AdvReac Intermediate vomiting Verified 11/15/18 17:11 oxycodone AdvReac Intermediate vomit blood Verified 11/15/18 17:11 propoxyphene AdvReac Intermediate abd vomit Verified 11/15/18 17:11 blood tramadol AdvReac Intermediate vomiting Verified 11/15/18 17:11 Bactrim AdvReac Mild GI SYMPTOMS Verified 03/06/18 21:06 codeine AdvReac Mild vomiting Verified 11/15/18 17:11 olmesartan AdvReac Mild GI SYMPTOMS Verified 11/15/18 17:11 Sulfa (Sulfonamide AdvReac Mild GI SYMPTOMS Verified 11/15/18 17:11 Antibiotics) sulfamethoxazole AdvReac Mild GI SYMPTOMS Verified 11/15/18 17:11 trimethoprim AdvReac Mild GI SYMPTOMS Verified 11/15/18 17:11 carisoprodol AdvReac Unknown GI SYMPTOMS Verified 11/15/18 17:11 Home Medications Home Medications Medication Instructions Recorded Confirmed Type acetaminophen 650 mg PA Q6H PRN 11/01/18 11/15/18 History acetaminophen [Tylenol] 650 mg PO Q4 PRN 11/01/18 11/15/18 History allopurinol 200 mg PO QAM 11/01/18 11/15/18 History bisacodyl [Dulcolax (bisacodyl)] 10 mg [place] DAILY PRN 11/01/18 11/15/18 History buspirone 15 mg PO AMHS 11/01/18 11/15/18 History carboxymethylcellulose sodium 1 drp OPB BID 11/01/18 11/15/18 History [Refresh Tears] colchicine 0.6 mg PO QAM 11/01/18 11/15/18 History diltiazem HCl [Cardizem CD] 240 mg PO QAM 11/01/18 11/15/18 History docusate sodium [Colace] 100 mg PO AMHS 11/01/18 11/15/18 History duloxetine 60 mg PO QAM 11/01/18 11/15/18 History ferrous sulfate 325 mg PO AMHS 11/01/18 11/15/18 History fluticasone-salmeterol [Advair 1 inh INHALATION AMHS 11/01/18 11/15/18 History Diskus] furosemide [Lasix] 40 mg PO AMPM 11/01/18 11/15/18 History [id number]-[id number]-[id number]-wtjk-st 1 tab PO PC 11/01/18 11/15/18 History [Glucosamine Chondroitin PLUS] ipratropium-albuterol 3 ml INHALATION Q4 PRN 11/01/18 11/15/18 History levothyroxine 75 mcg PO DAILYBB 11/01/18 11/15/18 History lorazepam 0.5 mg PO TID PRN 11/01/18 11/15/18 History magnesium hydroxide [Milk of 30 ml PO DAILY PRN 11/01/18 11/15/18 History Magnesia] magnesium oxide 250 mg PO QAM 11/01/18 11/15/18 History meclizine 25 mg PO TID PRN 11/01/18 11/15/18 History melatonin 10 mg PO HS 11/01/18 11/15/18 History metolazone 2.5 mg PO 2XWK 11/01/18 11/15/18 History metoprolol tartrate 25 mg PO AMPM 11/01/18 11/15/18 History miconazole nitrate [Desenex] 1 applic TOPICAL BID 11/01/18 11/15/18 History montelukast 10 mg PO PM 11/01/18 11/15/18 History ondansetron HCl [Zofran] 8 mg PO Q8 PRN 11/01/18 11/15/18 History pantoprazole 20 mg PO DAILYBB 11/01/18 11/15/18 History polyethylene glycol 3350 [Miralax] 17 g PO Q OTHER DAY 11/01/18 11/15/18 History potassium chloride 40 meq PO AMPM 11/01/18 11/15/18 History pregabalin [Lyrica] 50 mg PO PC 11/01/18 11/15/18 History sennosides [Senna-Gen] 8.6 mg PO AMHS 11/01/18 11/15/18 History simethicone [Gas-X Ultra-Strength] 180 mg PO PC 11/01/18 11/15/18 History sodium phosphates [Fleet Enema] 118 ml [place] DAILY PRN 11/01/18 11/15/18 History spironolactone 25 mg PO QAM 11/01/18 11/15/18 History sucralfate 1 g PO AMPM 11/01/18 11/15/18 History tramadol 50 mg PO QID 11/01/18 11/15/18 History trazodone 50 mg PO HS 11/01/18 11/15/18 History warfarin [Coumadin] 1.5 mg PO 4XWK 11/01/18 11/15/18 History warfarin [Coumadin] 3 mg PO 3XWK 11/01/18 11/15/18 History fentanyl 1 patch TRANSDERMAL Q72H #0 ea 11/06/18 11/15/18 Rx Past Med/Surg History Medical History CKD (chronic kidney disease), stage III (Chronic) GERD (gastroesophageal reflux disease) (Chronic) DJD (degenerative joint disease), multiple sites (Chronic) Arthritis (Chronic) Asthma (Chronic) Atrial fibrillation (Chronic) Diastolic CHF (Chronic) On 02/12/16 22:20 Ellie Bains wrote "per echo 09/30/15- EF 60-65%, mod LVH, mod MR, mod TR, dilated RV" DM type 2 (diabetes mellitus, type 2) (Chronic) Hypertension (Chronic) Hypothyroidism (Chronic) Chronic pain (Chronic) Stenosis of right carotid artery (Chronic) History of pulmonary embolism (Chronic) Chronic gastritis (Chronic) Chronic back pain (Chronic) Generalized anxiety disorder (Chronic) Obesity (BMI 30-39.9) (Chronic) DM2 (diabetes mellitus, type 2) (Chronic) HTN (hypertension) (Chronic) Surgical History History of hernia repair (Resolved) History of cholecystectomy (Resolved) Family History Other Diabetes HTN (hypertension) Social History Current Living Situation: Prison Other Information That Helps Us Care for You: No Feels Safe at Home: Yes Safety Concerns: Feels Safe At This Time Smoking Status: Never smoker Hx Alcohol Use: No Hx Substance Use: No Beliefs That Will Affect Care: None Preferred Language: Yoruba Communication Ability: Effective Protective Signal Installer Required: No Review of Systems All systems reviewed & are unremarkable except as noted in HPI & below Physical Exam 2 Vital Signs (Past 24 Hours): Last Vital Signs Temp 38.3 C H 11/15/18 14:10 Pulse 110 H 11/15/18 16:03 Resp 24 11/15/18 16:03 BP 113/93 11/15/18 16:03 Pulse Ox 100 11/15/18 16:03 Physical Exam: General: no distress, obese Head: normocephalic, atraumatic Eyes: conjunctiva non-injected, anicteric ENT: normal inspection external ears, nose, mucous membranes moist Neck: supple, trachea midline, non-tender Lungs: Coarse BS CV: irregularly irregular Abd: normal BS, distended secondary to adipose tissue, soft, non-tender Ext: RLE: R knee with ecchymosis, Left LE with skin abrasion and erhythema around the tibia area LLE: non-tender, +edema Neuro: A&O x 3, no focal deficits noted, normal affect Skin: warm, dry Results & Data Diagnostic Findings XR chest 1V portable HISTORY: Sepsis COMPARISON: Chest 12/24/2017. Chest CT 04/08/2018. FINDINGS: No pneumothorax. No pleural fusions. The heart remains enlarged. The patient is rotated. A few linear density left lung base favor scarring or atelectasis. Hazy appearance to the right midlung zone is noted. This is likely due to the overlapping old, healed rib fractures. However, a small overlapping airspace opacity cannot be excluded. No evidence for pulmonary edema. Advanced degenerative changes within the shoulders. IMPRESSION: Possible small airspace opacity within the right midlung zone. However, this could be due to the old, healed rib fractures. Electronically signed by: Neo Alcazar M.D. 11/15/2018 3:58 PM Dictated: 11/15/18 1557 Transcribed: 11/15/18 1557 _ (1) Respiratory failure Chronicity: unspecified Respiratory failure complication: hypoxia and hypercapnia Qualified Code(s): J96.91 - Respiratory failure, unspecified with hypoxia; J96.92 - Respiratory failure, unspecified with hypercapnia
[2018-11-15] MEDS ORDERED: ONDANSETRON 8 MG TABLET PO PRN (18:52)
[2018-11-15] MEDS ORDERED: GLUCOSE 40% GEL 15 GM TUBE PO PRN (18:52)
[2018-11-15] MEDS ORDERED: CARBOHYDRATES FOR HYPOGLYCEMIA PO PRN (18:52)
[2018-11-15] MEDS ORDERED: GLUCOSE 10 TABS/TUBE PO PRN (18:52)
[2018-11-15] MEDS ORDERED: DEXTROSE 50% 50 ML SYRINGE IV PRN (18:52)
[2018-11-15] MEDS ORDERED: GLUCAGON FOR INJ 1 MG VIAL SQ PRN (18:52)
[2018-11-15] MEDS ORDERED: CEFEPIME CONSULT ACTIVE PRN (19:23)
[2018-11-15] MEDS: ALBUT/IPRATROP 3MG/0.5MG NEB 3 ML VIAL NEB SCH (20:38)
--- NOTE | 2018-11-15 20:47 | Pharmacy Report ---
Pharmacy Abx Initial Consult - Date of Service November 15, 2018 - Pharmacy Dosing Scope Date of Consult: [] Consultation requested by: [] Pharmacy is consulted to initiate [] IV/PO dosing therapy, order appropriate labs and adjust drug dose/frequency. - Subjective The patient is a 78 year old F admitted on 11/15/18 17:09. - Objective Height: 5 ft 6 in Weight: 120 kg Vital Signs (Past 12hrs): Vital Signs Temp Pulse Pulse Resp BP BP BP 11/15/18 19:34 36.6 C 20 L 20 98/61 L 11/15/18 18:52 37.3 C 114 H 114 H 22 117/65 11/15/18 18:02 105 H 18 120/97 11/15/18 16:03 110 H 24 113/93 11/15/18 14:56 88 16 11/15/18 14:38 94 H 22 137/65 11/15/18 14:37 11/15/18 14:10 38.3 C H 92 H 22 137/65 Pulse Ox Pulse Ox 11/15/18 19:34 92 11/15/18 18:52 93 93 11/15/18 18:02 93 11/15/18 16:03 100 11/15/18 14:56 96 11/15/18 14:38 95 11/15/18 14:37 97 11/15/18 14:10 95 Lab Results (24hrs): Laboratory Tests (24 Hours) 11/15/18 11/15/18 11/15/18 14:13 14:13 14:13 WBC Neut # (Auto) Creatinine 1.36 H Cancelled Est Cr Clr Drug Dosing 46.8 Cancelled Procalcitonin 0.07 11/15/18 14:13 WBC 8.68 Neut # (Auto) 6.97 H Creatinine Est Cr Clr Drug Dosing Procalcitonin Micro Results: 11/15/18 15:30 Urine Culture - Pending Urine,Straight Cath 11/15/18 15:12 Blood Culture - Pending Blood 11/15/18 14:13 Blood Culture - Pending Blood - Assessment & Plan Assessment * 78 year old F with Influenza and possible Pneumonia and Sepsis. * Patient also with CKD -stage 3. Scr at baseline = 1.3. * BMI = 44.5 kg/m2. * Ordered Vancomycin + Cefepime. Plan Vancomycin IV * Estimated PK Parameters: Vd 0.7 L/kg, Lavelle= 0.043 hr-1, t1/2 = 16 hr * Loading dose: 2500 mg (20 mg/kg) * Maintenance dose: Vancomycin 1500 mg IV (12 mg/kg) every 20 hours * Goal trough level for Pneumonia/Sepsis: 15 to 20 mcg/mL * Trough Vanco level ordered before 02:00 AM dose on 11/18. * A less than traditional dose has been selected due to likelihood of drug accumulation in obese patient/patient with h/o CKD. Pharmacy will continue to follow and will adjust dose/frequency as necessary. Thank you.
[2018-11-15] MEDS ORDERED: NON-FORMULARY MEDICATION (Melatonin [Melatonin] 10 MG) PO SCH (21:00)
[2018-11-15] MEDS: DOCUSATE SODIUM 100 MG CAP PO SCH (21:07)
[2018-11-15] MEDS: LORazepam 0.5 MG TAB PO PRN (21:07)
[2018-11-15] MEDS: PREGABALIN 50 MG CAP PO SCH (21:07)
[2018-11-15] MEDS: POLYETHYLENE (MIRALAX) 17 GM PACK PO SCH (21:08)
[2018-11-15] MEDS: FLUTICASONE/SALMETEROL (ADVAIR) 500/50 INH 14 PUFF INH SCH (21:11)
[2018-11-15] MEDS: WARFARIN SOD 3 MG TAB PO SCH (21:12)
[2018-11-15] MEDS: SIMETHICONE 80 MG CHEW PO SCH (21:13)
[2018-11-15] MEDS: FUROSEMIDE 40 MG TAB PO SCH (21:13)
[2018-11-15] MEDS: MONTELUKAST SODIUM 10 MG TABLET PO SCH (21:14)
[2018-11-15] MEDS: INSULIN ASPART 100 UNITS/ML 3 ML PEN SC SCH (21:15)
[2018-11-15] MEDS: FERROUS SULFATE 325 MG TAB PO SCH (21:16)
[2018-11-15] MEDS: TRAZODONE HCL 50 MG TAB PO SCH (21:17)
[2018-11-15] MEDS: MICONAZOLE NITRATE POWDER 43 GM TOP SCH (21:17)
[2018-11-15] MEDS: SUCRALFATE 1 GM TAB PO SCH (21:18)
[2018-11-15] MEDS: CEFEPIME 2,000 MG in SYRINGE 7.5 ML IV SCH (21:18)
[2018-11-15] MEDS: BusPIRone 15 MG TAB PO SCH (21:19)
[2018-11-15] MEDS: METOPROLOL TARTRATE 25 MG TAB PO SCH (21:19)
[2018-11-15] MEDS: SENNA 8.6 MG TAB PO SCH (21:20)
[2018-11-15] MEDS: ARTIFICIAL TEARS OPB SCH (21:20)
[2018-11-15] MEDS ORDERED: TRAMADOL HCL 50 MG TABLET PO PRN (22:29)
[2018-11-15] MEDS ORDERED: ACETAMINOPHEN 325 MG TAB PO PRN (22:29)
--- NOTE | 2018-11-16 00:56 | Emergency Department Note ---
Entered by Darwin Bangura acting as a scribe for Yuan Almendarez MD History of Present Illness General Chief complaint: Illness Time Seen by Provider: 11/15/18 14:32 Source: patient Limitations: no limitations History of Present Illness Onset (ago): day(s) 1 Location: chest Pain Consistency: + other (worsening) Quality: + constant Associated symptoms: + fever/chills (fever) The patient is a 78 year old female who presents to the Emergency Room with complaints of constant and worsening SOB starting yesterday. The patient notes she has worsening cough and congestion. She states she had a fever of 100. She notes she tends to retain water and feels like she gained water weight. The patient states she has been bringing up sputum since yesterday. The patient notes she gets pain in her legs when she gets sick. She notes she fell on October 01 and has a blood blister on her left leg from that. The patient states she does not use oxygen normally and does not use a C-PAP. The patient is 88-90% on room air. Home Medications Home Medications Medication Instructions Recorded Confirmed Type acetaminophen 650 mg SC Q6H PRN 11/01/18 11/15/18 History acetaminophen [Tylenol] 650 mg PO Q4 PRN 11/01/18 11/15/18 History allopurinol 200 mg PO QAM 11/01/18 11/15/18 History bisacodyl [Dulcolax (bisacodyl)] 10 mg SC DAILY PRN 11/01/18 11/15/18 History buspirone 15 mg PO AMHS 11/01/18 11/15/18 History carboxymethylcellulose sodium 1 drp OPB BID 11/01/18 11/15/18 History [Refresh Tears] colchicine 0.6 mg PO QAM 11/01/18 11/15/18 History diltiazem HCl [Cardizem CD] 240 mg PO QAM 11/01/18 11/15/18 History docusate sodium [Colace] 100 mg PO AMHS 11/01/18 11/15/18 History duloxetine 60 mg PO QAM 11/01/18 11/15/18 History ferrous sulfate 325 mg PO AMHS 11/01/18 11/15/18 History fluticasone-salmeterol [Advair 1 inh INHALATION AMHS 11/01/18 11/15/18 History Diskus] furosemide [Lasix] 40 mg PO AMPM 11/01/18 11/15/18 History [id number]-st 1 tab PO PC 11/01/18 11/15/18 History [Glucosamine Chondroitin PLUS] ipratropium-albuterol 3 ml INHALATION Q4 PRN 11/01/18 11/15/18 History levothyroxine 75 mcg PO DAILYBB 11/01/18 11/15/18 History lorazepam 0.5 mg PO TID PRN 11/01/18 11/15/18 History magnesium hydroxide [Milk of 30 ml PO DAILY PRN 11/01/18 11/15/18 History Magnesia] magnesium oxide 250 mg PO QAM 11/01/18 11/15/18 History meclizine 25 mg PO TID PRN 11/01/18 11/15/18 History melatonin 10 mg PO HS 11/01/18 11/15/18 History metolazone 2.5 mg PO 2XWK 11/01/18 11/15/18 History metoprolol tartrate 25 mg PO AMPM 11/01/18 11/15/18 History miconazole nitrate [Desenex] 1 applic TOPICAL BID 11/01/18 11/15/18 History montelukast 10 mg PO PM 11/01/18 11/15/18 History ondansetron HCl [Zofran] 8 mg PO Q8 PRN 11/01/18 11/15/18 History pantoprazole 20 mg PO DAILYBB 11/01/18 11/15/18 History polyethylene glycol 3350 [Miralax] 17 g PO Q OTHER DAY 11/01/18 11/15/18 History potassium chloride 40 meq PO AMPM 11/01/18 11/15/18 History pregabalin [Lyrica] 50 mg PO PC 11/01/18 11/15/18 History sennosides [Senna-Gen] 8.6 mg PO AMHS 11/01/18 11/15/18 History simethicone [Gas-X Ultra-Strength] 180 mg PO PC 11/01/18 11/15/18 History sodium phosphates [Fleet Enema] 118 ml SC DAILY PRN 11/01/18 11/15/18 History spironolactone 25 mg PO QAM 11/01/18 11/15/18 History sucralfate 1 g PO AMPM 11/01/18 11/15/18 History tramadol 50 mg PO QID 11/01/18 11/15/18 History trazodone 50 mg PO HS 11/01/18 11/15/18 History warfarin [Coumadin] 1.5 mg PO 4XWK 11/01/18 11/15/18 History warfarin [Coumadin] 3 mg PO 3XWK 11/01/18 11/15/18 History fentanyl 1 patch TRANSDERMAL Q72H #0 ea 11/06/18 11/15/18 Rx Allergies Allergy/AdvReac Type Severity Reaction Status Date / Time meperidine [From Demerol] Allergy Unknown ON [place]IND[place] Verified 11/15/18 17:11 [place] morphine AdvReac Intermediate vomiting Verified 11/15/18 17:11 oxycodone AdvReac Intermediate vomit blood Verified 11/15/18 17:11 propoxyphene AdvReac Intermediate abd vomit Verified 11/15/18 17:11 blood tramadol AdvReac Intermediate vomiting Verified 11/15/18 17:11 Bactrim AdvReac Mild GI SYMPTOMS Verified 03/06/18 21:06 codeine AdvReac Mild vomiting Verified 11/15/18 17:11 olmesartan AdvReac Mild GI SYMPTOMS Verified 11/15/18 17:11 Sulfa (Sulfonamide AdvReac Mild GI SYMPTOMS Verified 11/15/18 17:11 Antibiotics) sulfamethoxazole AdvReac Mild GI SYMPTOMS Verified 11/15/18 17:11 trimethoprim AdvReac Mild GI SYMPTOMS Verified 11/15/18 17:11 carisoprodol AdvReac Unknown GI SYMPTOMS Verified 11/15/18 17:11 Past Med/Surg History Medical History CKD (chronic kidney disease), stage III (Chronic) GERD (gastroesophageal reflux disease) (Chronic) DJD (degenerative joint disease), multiple sites (Chronic) Arthritis (Chronic) Asthma (Chronic) Atrial fibrillation (Chronic) Diastolic CHF (Chronic) On 02/12/16 22:20 Ellie Bains wrote "per echo 09/30/15- EF 60-65%, mod LVH, mod MR, mod TR, dilated RV" DM type 2 (diabetes mellitus, type 2) (Chronic) Hypertension (Chronic) Hypothyroidism (Chronic) Chronic pain (Chronic) Stenosis of right carotid artery (Chronic) History of pulmonary embolism (Chronic) Chronic gastritis (Chronic) Chronic back pain (Chronic) Generalized anxiety disorder (Chronic) Obesity (BMI 30-39.9) (Chronic) DM2 (diabetes mellitus, type 2) (Chronic) HTN (hypertension) (Chronic) Surgical History History of hernia repair (Resolved) History of cholecystectomy (Resolved) Family History Other Diabetes HTN (hypertension) Social History Current Living Situation: Jail Other Information That Helps Us Care for You: No Feels Safe at Home: Yes Safety Concerns: Feels Safe At This Time Smoking Status: Never smoker Hx Alcohol Use: No Hx Substance Use: No Beliefs That Will Affect Care: None Preferred Language: Estonian Communication Ability: Effective Proof Plate Maker Required: No Review of Systems See HPI for pertinent positives & negatives. and A total of 10 systems reviewed and were otherwise negative Physical Exam Vital Signs Vital Signs - 24 hr 11/15/18 23:22 11/16/18 04:40 11/16/18 07:20 Temperature 36.6 C Temperature Source Oral Pulse Rate 101 H Pulse Rate [Left Finger] 82 79 Respiratory Rate 18 16 Respiratory Effort / Characteristics Non-Labored Spontaneous Respiratory Depth Respiratory Pattern Blood Pressure [Right Arm] 97/61 L Blood Pressure Mean [Right Arm] 73 Blood Pressure Position [Right Arm] Pulse Oximetry 93 94 Oxygen Delivery Method Nasal Cannula Oxygen Flow Rate 2 11/16/18 07:26 11/16/18 11:12 11/16/18 11:59 Temperature 36.4 C L 36.5 C Temperature Source Oral Oral Pulse Rate Pulse Rate [Left Finger] 81 101 H 103 H Respiratory Rate 20 18 18 Respiratory Effort / Characteristics Non-Labored Spontaneous Respiratory Depth Respiratory Pattern Blood Pressure [Right Arm] 98/56 L 126/77 Blood Pressure Mean [Right Arm] 70 93 Blood Pressure Position [Right Arm] Sitting Pulse Oximetry 93 92 92 Oxygen Delivery Method Nasal Cannula Nasal Cannula Oxygen Flow Rate 2 2 11/16/18 12:15 02/16/19 15:04 11/16/18 15:12 Temperature 36.6 C Temperature Source Oral Pulse Rate Pulse Rate [Left Finger] 106 H 83 Respiratory Rate 22 18 Respiratory Effort / Characteristics Non-Labored Non-Labored Spontaneous Respiratory Depth Normal Respiratory Pattern Regular Blood Pressure [Right Arm] 130/73 Blood Pressure Mean [Right Arm] 92 Blood Pressure Position [Right Arm] Sitting Pulse Oximetry 93 94 Oxygen Delivery Method Nasal Cannula Nasal Cannula Nasal Cannula Oxygen Flow Rate 2 3 2 11/16/18 18:56 11/16/18 19:41 11/16/18 20:00 Temperature 36.8 C Temperature Source Oral Pulse Rate Pulse Rate [Left Finger] 87 92 H Respiratory Rate 18 20 Respiratory Effort / Characteristics Non-Labored Spontaneous Non-Labored SOB on Exertion Respiratory Depth Normal Normal Respiratory Pattern Regular Blood Pressure [Right Arm] 118/82 Blood Pressure Mean [Right Arm] 94 Blood Pressure Position [Right Arm] Lying Pulse Oximetry 94 94 Oxygen Delivery Method Nasal Cannula Nasal Cannula Nasal Cannula Oxygen Flow Rate 2 2 2 GENERAL: Awake, alert, chronically ill-appearing, in moderate respiratory distress. HENT: Normocephalic, atraumatic. Oropharynx unremarkable. EYES: Normal conjunctiva. Sclera non-icteric. NECK: Supple. No nuchal rigidity. FROM. No JVD. RESPIRATORY: Diffuse wheezes and diminished at the bases with labored breathing. CARDIAC: Regular rate, normal rhythm. Extremities warm and well perfused. Pulses equal. ABDOMEN: Soft, non-distended. No tenderness to palpation. No rebound or guarding. No masses. RECTAL: Deferred. MUSCULOSKELETAL: Chest examination reveals no tenderness. The back is symmetrical on inspection without obvious abnormality. There is no CVA tenderness to palpation. No joint edema. LOWER EXTREMITIES: Calves are equal size bilaterally and non-tender. 3+ bilateral edema with erythema and warmth of right lower leg. No crepitus. NEURO: Normal sensorium. No sensory or motor deficits noted. SKIN: No rash or jaundice noted. Course 1455: Past medical records reviewed. The patient was evaluated in room B1, and a complete history and physical examination were performed. 1542: I reviewed the patient's case with Dr. Varela - Hospitalist. He will evaluate the patient for further management. Administered Medications Albuterol (Duoneb) 3 ml NEB QIDR [facility] Stop: 12/15/18 19:59 Last Admin: 11/16/18 18:55 Dose: 3 ml Admin: 11/16/18 15:12 Dose: 3 ml Admin: 11/16/18 11:10 Dose: 3 ml Admin: 11/16/18 07:19 Dose: 3 ml Admin: 11/15/18 20:38 Dose: 3 ml Allopurinol (Zyloprim) 200 mg PO QAM [facility] Stop: 12/16/18 08:59 Last Admin: 11/16/18 09:15 Dose: 200 mg Artificial Tears (Artificial Tears) 1 drops OPB BID [facility] Stop: 12/15/18 20:59 Last Admin: 11/16/18 21:05 Dose: 1 drops Admin: 11/16/18 09:23 Dose: 1 drops Admin: 11/15/18 21:20 Dose: Not Given Buspirone HCl (Buspar) 15 mg PO [facility] Stop: 12/15/18 20:59 Last Admin: 11/16/18 21:10 Dose: 15 mg Admin: 11/16/18 09:16 Dose: 15 mg Admin: 11/15/18 21:19 Dose: 15 mg Colchicine (Colcrys) 0.6 mg PO QAM [facility] Stop: 12/16/18 08:59 Last Admin: 11/16/18 09:14 Dose: 0.6 mg Diltiazem HCl (Cardizem Cd) 240 mg PO QAM [facility] Stop: 12/16/18 08:59 Last Admin: 11/16/18 09:15 Dose: 240 mg Docusate Sodium (Colace) 100 mg PO [facility] Stop: 12/15/18 20:59 Last Admin: 11/16/18 21:06 Dose: 100 mg Admin: 11/16/18 09:13 Dose: 100 mg Admin: 11/15/18 21:07 Dose: 100 mg Doxycycline Hyclate (Vibramycin) 100 mg PO BID [facility]; Protocol Stop: 11/23/18 20:59 Last Admin: 11/16/18 21:10 Dose: 100 mg Duloxetine HCl (Cymbalta) 60 mg PO QAM [facility] Stop: 12/16/18 08:59 Last Admin: 11/16/18 09:15 Dose: 60 mg [facility] Stop: 12/15/18 19:59 Last Admin: 11/16/18 17:11 Dose: 40 mg Admin: 11/16/18 09:13 Dose: 40 mg Admin: 11/15/18 21:13 Dose: 40 mg Cefepime HCl 2,000 mg/ Syringe 20 mls @ 5.5 mls/min IV Q12H [facility]; Protocol Stop: 11/22/18 21:59 Last Admin: 11/16/18 21:19 Dose: 5.5 mls/min Admin: 11/16/18 09:13 Dose: 5.5 mls/min Admin: 11/15/18 21:18 Dose: 5.5 mls/min Insulin Aspart (Novolog Flexpen) 0 units SC ACHS [facility] Stop: 12/16/18 20:59 Last Admin: 11/16/18 21:09 Dose: Not Given Insulin Glargine (Lantus Solostar Pen) 10 units SC BID [facility] Stop: 12/16/18 20:59 Last Admin: 11/16/18 21:20 Dose: Not Given Levothyroxine Sodium (Synthroid) 75 mcg PO DAILYBB [facility] Stop: 12/16/18 06:29 Last Admin: 11/16/18 05:57 Dose: 75 mcg Lorazepam (Ativan) 0.5 mg PO TID PRN PRN Reason: Anxiety Stop: 12/15/18 18:51 Last Admin: 11/16/18 21:16 Dose: 0.5 mg Admin: 11/15/18 21:07 Dose: 0.5 mg Metoprolol Tartrate (Lopressor) 25 mg PO BID [facility] Stop: 12/15/18 20:59 Last Admin: 11/16/18 21:07 Dose: 25 mg Admin: 11/16/18 09:15 Dose: 25 mg Admin: 11/15/18 21:19 Dose: 25 mg Miconazole Nitrate (Desenex) 1 appln TOP BID [facility] Stop: 12/15/18 20:59 Last Admin: 11/16/18 21:06 Dose: 1 appln Admin: 11/16/18 09:17 Dose: 1 appln Admin: 11/15/18 21:17 Dose: 1 appln Montelukast Sodium (Singulair) 10 mg PO PM [facility] Stop: 12/15/18 20:59 Last Admin: 11/16/18 21:09 Dose: 10 mg Admin: 11/15/18 21:14 Dose: 10 mg Mupirocin (Bactroban 2%) 1 appln EXT BID [facility] Stop: 11/21/18 11:59 Last Admin: 11/16/18 21:05 Dose: 1 appln Admin: 11/16/18 13:45 Dose: 1 appln Oseltamivir Phosphate (Tamiflu) 30 mg PO BID [facility]; Protocol Stop: 11/21/18 08:59 Last Admin: 11/16/18 21:21 Dose: 30 mg Admin: 11/16/18 09:18 Dose: 30 mg Pantoprazole Sodium (Protonix) 40 mg PO DAILYBB [facility] Stop: 12/16/18 06:29 Last Admin: 11/16/18 05:57 Dose: 40 mg Polyethylene Glycol (Miralax Powder Packet) 17 gm PO Q2D [facility] Stop: 12/15/18 19:59 Last Admin: 11/15/18 21:08 Dose: Not Given Prednisone (Prednisone) 40 mg PO DAILY [facility] Stop: 12/16/18 08:59 Last Admin: 11/16/18 09:16 Dose: 40 mg Pregabalin (Lyrica) 50 mg PO PC [facility] Stop: 12/15/18 18:51 Last Admin: 11/16/18 17:44 Dose: 50 mg Admin: 11/16/18 13:44 Dose: 50 mg Admin: 11/16/18 09:23 Dose: 50 mg Admin: 11/15/18 21:07 Dose: 50 mg Fluticasone/Salmeterol (Advair Diskus 500/50) 1 puffs INH [facility] Stop: 12/15/18 20:59 Last Admin: 11/16/18 21:04 Dose: 1 puffs Admin: 11/16/18 09:17 Dose: 1 puffs Admin: 11/15/18 21:11 Dose: 1 puffs Sennosides (Senokot) 8.6 mg PO [facility] Stop: 12/15/18 20:59 Last Admin: 11/16/18 21:09 Dose: 8.6 mg Admin: 11/16/18 09:17 Dose: 8.6 mg Admin: 11/15/18 21:20 Dose: 8.6 mg Simethicone (Mylicon) 160 mg PO PC [facility] Stop: 12/15/18 18:51 Last Admin: 11/16/18 17:45 Dose: 160 mg Admin: 11/16/18 13:45 Dose: 160 mg Admin: 11/16/18 09:14 Dose: 160 mg Admin: 11/15/18 21:13 Dose: 160 mg Spironolactone (Aldactone) 25 mg PO QAM [facility] Stop: 12/16/18 08:59 Last Admin: 11/16/18 09:15 Dose: 25 mg Trazodone HCl (Desyrel) 50 mg PO HS [facility] Stop: 12/15/18 20:59 Last Admin: 11/16/18 21:07 Dose: 50 mg Admin: 11/15/18 21:17 Dose: 50 mg Warfarin Sodium (Coumadin) 1.5 mg PO [id number]@1600 [facility] Stop: 12/15/18 19:59 Last Admin: 11/15/18 21:12 Dose: 1.5 mg Warfarin Sodium (Coumadin) 3 mg PO [id number]@1600 [facility] Stop: 12/16/18 15:59 Last Admin: 11/16/18 17:10 Dose: 3 mg Discontinued Medications Albuterol (Duoneb) 12 ml NEB ONE ONE Stop: 11/15/18 14:36 Last Admin: 11/15/18 14:53 Dose: 12 ml Ferrous Sulfate (Feosol) 325 mg PO BID [facility] Stop: 12/15/18 20:59 Last Admin: 11/16/18 09:14 Dose: 325 mg Admin: 11/15/18 21:16 Dose: 325 mg Vancomycin HCl 2,500 mg/ (Sodium Chloride) 550 mls @ 200 mls/hr IV NOW ONE Stop: 11/15/18 17:26 Last Infusion: 11/15/18 19:13 Dose: 0 mls/hr Admin: 11/15/18 15:50 Dose: 200 mls/hr Cefepime HCl 1,000 mg/ Syringe 11.3 mls @ 5.5 mls/min IV NOW STA Stop: 11/15/18 14:44 Last Admin: 11/15/18 15:45 Dose: 5.5 mls/min Vancomycin HCl 1,500 mg/ (Sodium Chloride) 530 mls @ 200 mls/hr IV Q20H [facility] Stop: 11/18/18 09:59 Last Infusion: 11/16/18 15:40 Dose: Admin: 11/16/18 11:28 Dose: 200 mls/hr Insulin Aspart (Novolog Flexpen) 0 units SC ACHS [facility] Stop: 12/15/18 20:59 Last Admin: 11/16/18 17:10 Dose: Not Given Admin: 11/16/18 11:28 Dose: Not Given Admin: 11/16/18 09:18 Dose: Not Given Admin: 11/15/18 21:15 Dose: Not Given Magnesium Oxide (Mag-Ox) 400 mg PO QAM [facility] Stop: 12/16/18 08:59 Last Admin: 11/16/18 09:15 Dose: 400 mg Methylprednisolone (Solumedrol) 125 mg IV NOW STA Stop: 11/15/18 14:36 Last Admin: 11/15/18 15:56 Dose: 125 mg Oseltamivir Phosphate (Tamiflu) 30 mg PO NOW STA Stop: 11/15/18 15:47 Last Admin: 11/15/18 15:59 Dose: 30 mg Potassium Chloride (Klor-Con M20) 20 meq PO NOW STA Stop: 11/16/18 19:33 Last Admin: 11/16/18 21:04 Dose: 20 meq Sucralfate (Carafate Tab) 1 gm PO BID@1000,2200 [facility] Stop: 12/15/18 21:59 Last Admin: 11/16/18 09:16 Dose: 1 gm Admin: 11/15/18 21:18 Dose: 1 gm Medical Decision Making Differential Diagnosis Differential diagnosis: Etiologies such as infections, reactive airway disease, COPD, pneumonia, pleural effusion, pulmonary edema, ARDS, pneumothorax, CHF, cardiac ischemia, cardiac tamponade, dysrhythmia, anemia, pulmonary embolism, musculoskeletal, gastrointestinal process, as well as others were entertained. Medical Records Attestation: I reviewed the patient's medical records. Home Medications Current Medication List: was personally reviewed by me Laboratory Data Attestation: I reviewed the patient's lab results. Result diagrams: 11/16/18 06:15 11/16/18 06:15 Lab Results 11/15/18 11/15/18 11/15/18 Range/Units 14:10 14:13 14:13 WBC 8.68 (4.8-10.8) K/uL RBC 3.79 L (4.2-5.4) M/uL Hgb 12.9 (12.0-16.0) g/dL Hct 39.0 (37-47) % MCV 102.9 H (80-100) fL MCH 34.0 (25-34) pg MCHC 33.1 (32-36) g/dL RDW Std Deviation 63.6 H (36.4-46.3) fL RDW Coeff of Kenneth 16.9 H (11.5-14.5) % Plt Count 213 (130-400) K/uL MPV 10.6 H (7.4-10.4) fL Immature Gran % (Auto) 0.2 % Neut % (Auto) 80.4 % Lymph % (Auto) 7.7 % [place] % (Auto) 10.8 % Eos % (Auto) 0.8 % Baso % (Auto) 0.1 % Immature Gran # (Auto) 0.02 (0.00-0.02) K/uL Neut # (Auto) 6.97 H (1.4-6.5) K/uL Lymph # (Auto) 0.67 L (1.2-3.4) K/uL [place] # (Auto) 0.94 H (0.11-0.59) K/uL Eos # (Auto) 0.07 (0-0.5) K/uL Baso # (Auto) 0.01 (0-0.2) K/uL PT 22.4 H (9.0-12.0) Seconds INR 2.3 H (0.9-1.1) APTT 41.6 H (21.0-31.0) Seconds PTT Ratio 1.6 VBG pH (7.36-7.41) VBG pCO2 (38-50) mmHg VBG pO2 mmHg VBG HCO3 mmol/L VBG O2 Saturation % VBG Base Excess mEq/L Barometric Pressure mm/Hg Sodium Potassium Chloride Carbon Dioxide Anion Gap BUN Creatinine Est Cr Clr Drug Dosing Est GFR ( Amer) Est GFR (Non-Af Amer) BUN/Creatinine Ratio Glucose POC Lactic Acid Yunior (0.90-1.70) mmol/L Lactate (0.4-2.0) mmol/L Calcium Magnesium (1.8-2.4) mg/dl Total Bilirubin Direct Bilirubin (0-0.2) mg/dl AST ALT Alkaline Phosphatase Troponin I (0-0.045) ng/ml NT-Pro-B Natriuret Pep (0-1800) pg/ml Total Protein Albumin Globulin Albumin/Globulin Ratio Procalcitonin (0-0.5) ng/ml Urine Color Urine Appearance (Clear) Urine pH (4.5-7.5) Ur Specific [place] (1.000-1.030) Urine Protein (Negative) Urine Glucose (UA) (Negative) Urine Ketones (Negative) Urine Blood (Negative) Urine Nitrite (Negative) Urine Bilirubin (Negative) Urine Urobilinogen (Negative) Ur Leukocyte Esterase (Negative) Urine WBC (Auto) (0-5) /hpf Urine RBC (Auto) (0-4) /hpf U Hyaline Cast (Auto) (0-5) /lpf U Epithel Cells (Auto) (0-5) /lpf Urine Bacteria (Auto) (Negative) Nasal Screen MRSA (PCR) (Negative) Influenza Type A (PCR) Pos for Influ A A* (Neg) Influenza Type B (PCR) Neg for Influ B (Neg) 11/15/18 11/15/18 11/15/18 Range/Units 14:13 14:13 14:13 WBC (4.8-10.8) K/uL RBC (4.2-5.4) M/uL Hgb (12.0-16.0) g/dL Hct (37-47) % MCV (80-100) fL MCH (25-34) pg MCHC (32-36) g/dL RDW Std Deviation (36.4-46.3) fL RDW Coeff of Kenneth (11.5-14.5) % Plt Count (130-400) K/uL MPV (7.4-10.4) fL Immature Gran % (Auto) % Neut % (Auto) % Lymph % (Auto) % [place] % (Auto) % Eos % (Auto) % Baso % (Auto) % Immature Gran # (Auto) (0.00-0.02) K/uL Neut # (Auto) (1.4-6.5) K/uL Lymph # (Auto) (1.2-3.4) K/uL [place] # (Auto) (0.11-0.59) K/uL Eos # (Auto) (0-0.5) K/uL Baso # (Auto) (0-0.2) K/uL PT (9.0-12.0) Seconds INR (0.9-1.1) APTT (21.0-31.0) Seconds PTT Ratio VBG pH (7.36-7.41) VBG pCO2 (38-50) mmHg VBG pO2 mmHg VBG HCO3 mmol/L VBG O2 Saturation % VBG Base Excess mEq/L Barometric Pressure mm/Hg Sodium Cancelled 136 Potassium Cancelled 3.8 Chloride Cancelled 101 Carbon Dioxide Cancelled 29 Anion Gap Cancelled 6.0 BUN Cancelled 35 H Creatinine Cancelled 1.36 H Est Cr Clr Drug Dosing Cancelled 46.8 Est GFR ( Amer) Cancelled 43.4 Est GFR (Non-Af Amer) Cancelled 37.4 BUN/Creatinine Ratio Cancelled 26.0 H Glucose Cancelled 148 H POC Lactic Acid Yunior (0.90-1.70) mmol/L Lactate (0.4-2.0) mmol/L Calcium Cancelled 8.7 Magnesium 2.2 (1.8-2.4) mg/dl Total Bilirubin Cancelled 0.6 Direct Bilirubin 0.2 (0-0.2) mg/dl AST Cancelled 15 ALT Cancelled 14 Alkaline Phosphatase Cancelled 133 H Troponin I < 0.015 (0-0.045) ng/ml NT-Pro-B Natriuret Pep 679 (0-1800) pg/ml Total Protein Cancelled 7.3 Albumin Cancelled 3.1 L Globulin Cancelled 4.2 H Albumin/Globulin Ratio Cancelled 0.7 L Procalcitonin 0.07 (0-0.5) ng/ml Urine Color Urine Appearance (Clear) Urine pH (4.5-7.5) Ur Specific [place] (1.000-1.030) Urine Protein (Negative) Urine Glucose (UA) (Negative) Urine Ketones (Negative) Urine Blood (Negative) Urine Nitrite (Negative) Urine Bilirubin (Negative) Urine Urobilinogen (Negative) Ur Leukocyte Esterase (Negative) Urine WBC (Auto) (0-5) /hpf Urine RBC (Auto) (0-4) /hpf U Hyaline Cast (Auto) (0-5) /lpf U Epithel Cells (Auto) (0-5) /lpf Urine Bacteria (Auto) (Negative) Nasal Screen MRSA (PCR) (Negative) Influenza Type A (PCR) (Neg) Influenza Type B (PCR) (Neg) 11/15/18 11/15/18 11/15/18 Range/Units 14:20 15:12 15:12 WBC (4.8-10.8) K/uL RBC (4.2-5.4) M/uL Hgb (12.0-16.0) g/dL Hct (37-47) % MCV (80-100) fL MCH (25-34) pg MCHC (32-36) g/dL RDW Std Deviation (36.4-46.3) fL RDW Coeff of Kenneth (11.5-14.5) % Plt Count (130-400) K/uL MPV (7.4-10.4) fL Immature Gran % (Auto) % Neut % (Auto) % Lymph % (Auto) % [place] % (Auto) % Eos % (Auto) % Baso % (Auto) % Immature Gran # (Auto) (0.00-0.02) K/uL Neut # (Auto) (1.4-6.5) K/uL Lymph # (Auto) (1.2-3.4) K/uL [place] # (Auto) (0.11-0.59) K/uL Eos # (Auto) (0-0.5) K/uL Baso # (Auto) (0-0.2) K/uL PT (9.0-12.0) Seconds INR (0.9-1.1) APTT (21.0-31.0) Seconds PTT Ratio VBG pH 7.36 (7.36-7.41) VBG pCO2 60 H (38-50) mmHg VBG pO2 25 mmHg VBG HCO3 33 mmol/L VBG O2 Saturation < 60.0 % VBG Base Excess 5.7 mEq/L Barometric Pressure 721.3 mm/Hg Sodium Potassium Chloride Carbon Dioxide Anion Gap BUN Creatinine Est Cr Clr Drug Dosing Est GFR ( Amer) Est GFR (Non-Af Amer) BUN/Creatinine Ratio Glucose POC Lactic Acid Yunior 0.71 L (0.90-1.70) mmol/L Lactate 1.1 (0.4-2.0) mmol/L Calcium Magnesium (1.8-2.4) mg/dl Total Bilirubin Direct Bilirubin (0-0.2) mg/dl AST ALT Alkaline Phosphatase Troponin I (0-0.045) ng/ml NT-Pro-B Natriuret Pep (0-1800) pg/ml Total Protein Albumin Globulin Albumin/Globulin Ratio Procalcitonin (0-0.5) ng/ml Urine Color Urine Appearance (Clear) Urine pH (4.5-7.5) Ur Specific [place] (1.000-1.030) Urine Protein (Negative) Urine Glucose (UA) (Negative) Urine Ketones (Negative) Urine Blood (Negative) Urine Nitrite (Negative) Urine Bilirubin (Negative) Urine Urobilinogen (Negative) Ur Leukocyte Esterase (Negative) Urine WBC (Auto) (0-5) /hpf Urine RBC (Auto) (0-4) /hpf U Hyaline Cast (Auto) (0-5) /lpf U Epithel Cells (Auto) (0-5) /lpf Urine Bacteria (Auto) (Negative) Nasal Screen MRSA (PCR) (Negative) Influenza Type A (PCR) (Neg) Influenza Type B (PCR) (Neg) 11/15/18 11/15/18 11/16/18 Range/Units 15:30 19:45 06:15 WBC 6.53 (4.8-10.8) K/uL RBC 3.62 L (4.2-5.4) M/uL Hgb 12.2 (12.0-16.0) g/dL Hct 37.0 (37-47) % MCV 102.2 H (80-100) fL MCH 33.7 (25-34) pg MCHC 33.0 (32-36) g/dL RDW Std Deviation 62.1 H (36.4-46.3) fL RDW Coeff of Kenneth 16.6 H (11.5-14.5) % Plt Count 196 (130-400) K/uL MPV 10.8 H (7.4-10.4) fL Immature Gran % (Auto) % Neut % (Auto) % Lymph % (Auto) % [place] % (Auto) % Eos % (Auto) % Baso % (Auto) % Immature Gran # (Auto) (0.00-0.02) K/uL Neut # (Auto) (1.4-6.5) K/uL Lymph # (Auto) (1.2-3.4) K/uL [place] # (Auto) (0.11-0.59) K/uL Eos # (Auto) (0-0.5) K/uL Baso # (Auto) (0-0.2) K/uL PT (9.0-12.0) Seconds INR (0.9-1.1) APTT (21.0-31.0) Seconds PTT Ratio VBG pH (7.36-7.41) VBG pCO2 (38-50) mmHg VBG pO2 mmHg VBG HCO3 mmol/L VBG O2 Saturation % VBG Base Excess mEq/L Barometric Pressure mm/Hg Sodium Potassium Chloride Carbon Dioxide Anion Gap BUN Creatinine Est Cr Clr Drug Dosing Est GFR ( Amer) Est GFR (Non-Af Amer) BUN/Creatinine Ratio Glucose POC Lactic Acid [place] (0.90-1.70) mmol/L Lactate (0.4-2.0) mmol/L Calcium Magnesium (1.8-2.4) mg/dl Total Bilirubin Direct Bilirubin (0-0.2) mg/dl AST ALT Alkaline Phosphatase Troponin I (0-0.045) ng/ml NT-Pro-B Natriuret Pep (0-1800) pg/ml Total Protein Albumin Globulin Albumin/Globulin Ratio Procalcitonin (0-0.5) ng/ml Urine Color Yellow Urine Appearance Cloudy H (Clear) Urine pH 6.5 (4.5-7.5) Ur Specific [place] 1.009 (1.000-1.030) Urine Protein Negative (Negative) Urine Glucose (UA) Negative (Negative) Urine Ketones Negative (Negative) Urine Blood 1+ H (Negative) Urine Nitrite Negative (Negative) Urine Bilirubin Negative (Negative) Urine Urobilinogen Negative (Negative) Ur Leukocyte Esterase 3+ H (Negative) Urine WBC (Auto) >30 H (0-5) /hpf Urine RBC (Auto) 0-4 (0-4) /hpf U Hyaline Cast (Auto) 0 (0-5) /lpf U Epithel Cells (Auto) 0-5 (0-5) /lpf Urine Bacteria (Auto) 2+ H (Negative) Nasal Screen MRSA (PCR) Positive A (Negative) Influenza Type A (PCR) (Neg) Influenza Type B (PCR) (Neg) 11/16/18 11/16/18 Range/Units 06:15 06:15 WBC (4.8-10.8) K/uL RBC (4.2-5.4) M/uL Hgb (12.0-16.0) g/dL Hct (37-47) % MCV (80-100) fL MCH (25-34) pg MCHC (32-36) g/dL RDW Std Deviation (36.4-46.3) fL RDW Coeff of Kenneth (11.5-14.5) % Plt Count (130-400) K/uL MPV (7.4-10.4) fL Immature Gran % (Auto) % Neut % (Auto) % Lymph % (Auto) % [place] % (Auto) % Eos % (Auto) % Baso % (Auto) % Immature Gran # (Auto) (0.00-0.02) K/uL Neut # (Auto) (1.4-6.5) K/uL Lymph # (Auto) (1.2-3.4) K/uL [place] # (Auto) (0.11-0.59) K/uL Eos # (Auto) (0-0.5) K/uL Baso # (Auto) (0-0.2) K/uL PT 22.6 H (9.0-12.0) Seconds INR 2.3 H (0.9-1.1) APTT (21.0-31.0) Seconds PTT Ratio VBG pH (7.36-7.41) VBG pCO2 (38-50) mmHg VBG pO2 mmHg VBG HCO3 mmol/L VBG O2 Saturation % VBG Base Excess mEq/L Barometric Pressure mm/Hg Sodium 136 Potassium 3.4 L Chloride 100 Carbon Dioxide 28 Anion Gap 8.0 BUN 40 H Creatinine 1.38 H Est Cr Clr Drug Dosing 45.0 Est GFR ( Amer) 42.6 Est GFR (Non-Af Amer) 36.8 BUN/Creatinine Ratio 28.8 H Glucose 207 H POC Lactic Acid Yunior (0.90-1.70) mmol/L Lactate (0.4-2.0) mmol/L Calcium 8.4 L Magnesium (1.8-2.4) mg/dl Total Bilirubin Direct Bilirubin (0-0.2) mg/dl AST ALT Alkaline Phosphatase Troponin I (0-0.045) ng/ml NT-Pro-B Natriuret Pep (0-1800) pg/ml Total Protein Albumin Globulin Albumin/Globulin Ratio Procalcitonin (0-0.5) ng/ml Urine Color Urine Appearance (Clear) Urine pH (4.5-7.5) Ur Specific [place] (1.000-1.030) Urine Protein (Negative) Urine Glucose (UA) (Negative) Urine Ketones (Negative) Urine Blood (Negative) Urine Nitrite (Negative) Urine Bilirubin (Negative) Urine Urobilinogen (Negative) Ur Leukocyte Esterase (Negative) Urine WBC (Auto) (0-5) /hpf Urine RBC (Auto) (0-4) /hpf U Hyaline Cast (Auto) (0-5) /lpf U Epithel Cells (Auto) (0-5) /lpf Urine Bacteria (Auto) (Negative) Nasal Screen MRSA (PCR) (Negative) Influenza Type A (PCR) (Neg) Influenza Type B (PCR) (Neg) Imaging Data Radiologist's Impression: Radiology results as stated below per my review and the radiologist's interpretation: XR chest 1V portable HISTORY: Sepsis COMPARISON: Chest 12/24/2017. Chest CT 04/08/2018. FINDINGS: No pneumothorax. No pleural fusions. The heart remains enlarged. The patient is rotated. A few linear density left lung base favor scarring or atelectasis. Hazy appearance to the right midlung zone is noted. This is likely due to the overlapping old, healed rib fractures. However, a small overlapping airspace opacity cannot be excluded. No evidence for pulmonary edema. Advanced degenerative changes within the shoulders. IMPRESSION: Possible small airspace opacity within the right midlung zone. However, this could be due to the old, healed rib fractures. Electronically signed by: Neo Alcazar M.D. 11/15/2018 3:58 PM ECG Data Attestation: I personally reviewed and interpreted this ECG as follows: Indication: SOB/dyspnea Rate (beats per minute): 89 Rhythm: normal sinus Findings: + other (normal axis) and + 1st degree AV block; no acute ischemic change Blood Pressure Blood Pressure Findings: Normal blood pressure Blood Pressure Disposition: further management by hospitalist DAMIEN Qiu The patient is a pleasant 78-year-old woman with a past medical history of COPD and CHF who presents emergency department with worsening cough and congestion for the past couple of days per hpi. On arrival the patient is in moderate respiratory distress with labored breathing on 2 L nasal cannula with respiratory rate in the mid 20s. Patient is febrile to 38.3 with heart rate in the 90s and blood pressure otherwise stable. On exam the patient has scattered wheezes and is diminished at the bases. Additionally, the patient has erythema and warmth to the right lower extremity. Given the patient's fever and respiratory failure on arrival she was ordered for empiric antibiotics with cefepime and vancomycin. Bipap d/w patient but she refused, thus given continuous Duoneb. EKG without acute ischemia. Chest x-ray with equivocal right midlung opacity. WBC, H/H, platelet within normal limits. VBG with PCO2 of 60 however pH of 7.36. Creatinine 1.36 within patient's range. No acidosis. Lactate within normal limits. Troponin negative. UA suspicious for infection with WBC greater than 30 and bacteria 2+. Additionally, patient was influenza A positive. Pro-calcitonin 0.07, reassuring. However, given the patient's respiratory failure on arrival in the setting of her comorbidities with influenza A as well as possible UTI reasonable to admit the patient for further management. Case was discussed with Dr. Varela, [facility] , who will evaluate the patient for admission. Impression & Plan Influenza A, Respiratory failure Critical Care Time I have personally spent greater than 35 minutes of critical care time in the direct management of this patient. This includes bedside care, interpretation of diagnostic studies, and testing, discussion with consultants, patient, and family members, and other required patient management activities. This 35 minutes is in excess of all separately billable procedures. Critical Care Time: Yes Total Critical Care Time: 35 Discharge Plan Visit Data *Final* Discharge Date/Time: 11/15/18 18:02 Chief Complaint: Illness ED Provider: Yuan Almendarez Discharge Problem: Influenza A, Respiratory failure Patient Disposition: Admitted As Inpatient Discharge Instructions Interventions: ED Discharge Assessment Last Done: 11/15/18 18:02 The scribe's documentation has been prepared under my direction and personally reviewed by me in its entirety. I confirm that the note above accurately reflects all work, treatment, procedures, and medical decision making performed by me.
[2018-11-16] MEDS: LEVOTHYROXINE SODIUM 75 MCG TABLET PO SCH (05:57)
[2018-11-16] MEDS: PANTOprazole 40 MG TAB PO SCH (05:57)
[2018-11-16 06:52] LABS: Hemoglobin 12.2 g/dL (12.0-16.0); Mean Corpuscular Volume 102.2 fL (80-100); Mean Platelet Volume 10.8 fL (7.4-10.4); Platelet Count 196 K/uL (130-400); RDW Coefficient of Variation 16.6 % (11.5-14.5); RDW Standard Deviation 62.1 fL (36.4-46.3); Red Blood Count 3.62 M/uL (4.2-5.4); White Blood Count 6.53 K/uL (4.8-10.8)
[2018-11-16 07:06] LABS: INR 2.3 (0.9-1.1); Prothrombin Time 22.6 Seconds (9.0-12.0)
[2018-11-16] MEDS: ALBUT/IPRATROP 3MG/0.5MG NEB 3 ML VIAL NEB SCH ×4 (07:19→18:55)
[2018-11-16 07:26] LABS: BUN Creatinine Ratio 28.8 (10-20); Calcium 8.4 mg/dl (8.5-10.1); Est GFR (African American) 42.6; Est GFR (Non-African American) 36.8; Potassium 3.4 mmol/L (3.5-5.1)
[2018-11-16] MEDS ORDERED: MAGNESIUM OXIDE 400 MG TAB PO SCH (09:00)
[2018-11-16] MEDS: DOCUSATE SODIUM 100 MG CAP PO SCH ×2 (09:13→21:06)
[2018-11-16] MEDS: FUROSEMIDE 40 MG TAB PO SCH ×2 (09:13→17:11)
[2018-11-16] MEDS: CEFEPIME 2,000 MG in SYRINGE 7.5 ML IV SCH ×2 (09:13→21:19)
[2018-11-16] MEDS: SIMETHICONE 80 MG CHEW PO SCH ×3 (09:14→17:45)
[2018-11-16] MEDS: FERROUS SULFATE 325 MG TAB PO SCH (09:14)
[2018-11-16] MEDS: COLCHICINE 0.6 MG TAB PO SCH (09:14)
[2018-11-16] MEDS: ALLOPURINOL 100 MG TAB PO SCH (09:15)
[2018-11-16] MEDS: SPIRONOLACTONE 25 MG TAB PO SCH (09:15)
[2018-11-16] MEDS: DULOXETINE HCL 60 MG CAP PO SCH (09:15)
[2018-11-16] MEDS: dilTIAZem HCL 240 MG CAPCR PO SCH (09:15)
[2018-11-16] MEDS: METOPROLOL TARTRATE 25 MG TAB PO SCH ×2 (09:15→21:07)
[2018-11-16] MEDS: BusPIRone 15 MG TAB PO SCH ×2 (09:16→21:10)
[2018-11-16] MEDS: SUCRALFATE 1 GM TAB PO SCH (09:16)
[2018-11-16] MEDS: predniSONE 20 MG TAB PO SCH (09:16)
[2018-11-16] MEDS: FLUTICASONE/SALMETEROL (ADVAIR) 500/50 INH 14 PUFF INH SCH ×2 (09:17→21:04)
[2018-11-16] MEDS: MICONAZOLE NITRATE POWDER 43 GM TOP SCH ×2 (09:17→21:06)
[2018-11-16] MEDS: SENNA 8.6 MG TAB PO SCH ×2 (09:17→21:09)
[2018-11-16] MEDS: INSULIN ASPART 100 UNITS/ML 3 ML PEN SC SCH ×4 (09:18→21:09)
[2018-11-16] MEDS: OSELTAMIVIR PHOSPHATE SUSP 30 MG/5 ML UDP PO SCH ×2 (09:18→21:21)
[2018-11-16] MEDS: PREGABALIN 50 MG CAP PO SCH ×3 (09:23→17:44)
[2018-11-16] MEDS: ARTIFICIAL TEARS OPB SCH ×2 (09:23→21:05)
[2018-11-16] MEDS ORDERED: VANCOMYCIN HCL 1,500 MG in SODIUM CHLORIDE 0.9% 500 ML IV SCH (10:00)
[2018-11-16] MEDS: MUPIROCIN 2% OINT 22 GM TUBE EXT SCH ×2 (13:45→21:05)
[2018-11-16] MEDS ORDERED: COUGH DROP (SUGAR FREE) LOZ 24 LOZ/1 BOX BUCCAL PRN (16:05)
--- NOTE | 2018-11-16 16:05 | Hospitalist Progress Note ---
Date of Service November 16, 2018 Assessment & Plan (1) Influenza A: Continue oseltamivir to complete 5 day course of therapy. (2) Atrial fibrillation: Continue metoprolol, diltiazem, warfarin. (3) Diastolic CHF: Compensated. Diurese PRN. (4) Hypertension: Continue metoprolol, diltiazem, warfarin. (5) DM type 2 (diabetes mellitus, type 2): FBS 207. On prednisone. Insulin coverage per protocol. (6) Hematoma of right lower extremity: Resolving. (7) DVT prophylaxis: Warfarin. Ambulate. (8) Discharge planning issues: Anticipated return to [facility]. Subjective Recheck for influenza A and other problems. Pt seen in her room around 1600. Febrile yesterday afternoon, not yet today. Persisent cough and wheezing. No chest pain. No nausea, vomiting, diarrhea. Physical Exam 2 Vital Signs (Past 24 Hours): Last Vital Signs Temp 36.6 C 11/16/18 15:04 Pulse 83 11/16/18 15:12 Resp 18 11/16/18 15:12 BP 130/73 11/16/18 15:04 Pulse Ox 94 11/16/18 15:12 Constitutional: + ill appearing; no acute distress Respiratory: Auscultation: + rhonchi and + wheezes Cardiovascular: Rate/Rhythm: regular rate and regular rhythm Extremities: + edema (1-2+ pretibial) Gastrointestinal (Abdomen): Inspection/Auscultation: normal bowel sounds Percussion/Palpation: abdomen soft; abdomen nontender Musculoskeletal: Extremities: + extremities abnormal to inspection (resolving hematoma / ecchymoses right knee & leg) Psychiatric: Orientation: alert and oriented x 3 Results & Data Laboratory Results Laboratory Results - last 24 hr 11/15/18 11/16/18 11/16/18 19:45 06:15 06:15 WBC 6.53 RBC 3.62 L Hgb 12.2 Hct 37.0 MCV 102.2 H MCH 33.7 MCHC 33.0 RDW Std Deviation 62.1 H RDW Coeff of Kenneth 16.6 H Plt Count 196 MPV 10.8 H PT 22.6 H INR 2.3 H Sodium Potassium Chloride Carbon Dioxide Anion Gap BUN Creatinine Est Cr Clr Drug Dosing Est GFR ( Amer) Est GFR (Non-Af Amer) BUN/Creatinine Ratio Glucose Calcium Nasal Screen MRSA (PCR) Positive A 11/16/18 06:15 WBC RBC Hgb Hct MCV MCH MCHC RDW Std Deviation RDW Coeff of Kenneth Plt Count MPV PT INR Sodium 136 Potassium 3.4 L Chloride 100 Carbon Dioxide 28 Anion Gap 8.0 BUN 40 H Creatinine 1.38 H Est Cr Clr Drug Dosing 45.0 Est GFR ( Amer) 42.6 Est GFR (Non-Af Amer) 36.8 BUN/Creatinine Ratio 28.8 H Glucose 207 H Calcium 8.4 L Nasal Screen MRSA (PCR) Microbiology 11/15/18 21:25 Sputum, Expectorated Gram Stain - Final 11/15/18 21:25 Sputum, Expectorated Sputum Culture - Preliminary Moderate normal petar present, final report to follow. 11/15/18 15:30 Urine,Straight Cath Urine Culture - Preliminary Proteus species
[2018-11-16] MEDS: WARFARIN SOD 3 MG TAB PO SCH (17:10)
[2018-11-16] MEDS ORDERED: POTASSIUM CHLORIDE 20 MEQ TABCR PO STA (19:32)
[2018-11-16] MEDS: TRAZODONE HCL 50 MG TAB PO SCH (21:07)
[2018-11-16] MEDS: MONTELUKAST SODIUM 10 MG TABLET PO SCH (21:09)
[2018-11-16] MEDS: DOXYCYCLINE HYCLATE 100 MG CAP PO SCH (21:10)
[2018-11-16] MEDS: LORazepam 0.5 MG TAB PO PRN (21:16)
[2018-11-16] MEDS: INSULIN GLARGINE SOLOSTAR 100 UNITS/ML 3 ML PEN SC SCH (21:20)
[2018-11-17] MEDS: PANTOprazole 40 MG TAB PO SCH (06:15)
[2018-11-17] MEDS: LEVOTHYROXINE SODIUM 75 MCG TABLET PO SCH (06:15)
[2018-11-17] MEDS: ALBUT/IPRATROP 3MG/0.5MG NEB 3 ML VIAL NEB SCH ×4 (07:11→18:51)
[2018-11-17 07:24] LABS: Hematocrit (blood only) 38.9 % (37-47); Hemoglobin 13.2 g/dL (12.0-16.0); Mean Corpuscular Hgb Conc 33.9 g/dL (32-36); Mean Corpuscular Volume 101.3 fL (80-100); Mean Platelet Volume 10.9 fL (7.4-10.4); Platelet Count 226 K/uL (130-400); RDW Coefficient of Variation 16.4 % (11.5-14.5); RDW Standard Deviation 60.2 fL (36.4-46.3); Red Blood Count 3.84 M/uL (4.2-5.4); White Blood Count 15.71 K/uL (4.8-10.8)
[2018-11-17 07:31] LABS: INR 2.5 (0.9-1.1); Prothrombin Time 24.2 Seconds (9.0-12.0)
[2018-11-17] MEDS: METOPROLOL TARTRATE 25 MG TAB PO SCH ×2 (07:59→21:06)
[2018-11-17] MEDS: DOCUSATE SODIUM 100 MG CAP PO SCH ×2 (07:59→21:02)
[2018-11-17] MEDS: DULOXETINE HCL 60 MG CAP PO SCH (07:59)
[2018-11-17] MEDS: SENNA 8.6 MG TAB PO SCH ×2 (08:00→21:04)
[2018-11-17] MEDS: COLCHICINE 0.6 MG TAB PO SCH (08:00)
[2018-11-17] MEDS: predniSONE 20 MG TAB PO SCH (08:01)
[2018-11-17] MEDS: SIMETHICONE 80 MG CHEW PO SCH ×3 (08:01→17:07)
[2018-11-17] MEDS: ALLOPURINOL 100 MG TAB PO SCH (08:02)
[2018-11-17] MEDS: FUROSEMIDE 40 MG TAB PO SCH (08:02)
[2018-11-17] MEDS: SPIRONOLACTONE 25 MG TAB PO SCH (08:02)
[2018-11-17] MEDS: dilTIAZem HCL 240 MG CAPCR PO SCH (08:03)
[2018-11-17] MEDS: DOXYCYCLINE HYCLATE 100 MG CAP PO SCH ×2 (08:03→21:06)
[2018-11-17] MEDS: PREGABALIN 50 MG CAP PO SCH ×3 (08:04→17:07)
[2018-11-17] MEDS: MUPIROCIN 2% OINT 22 GM TUBE EXT SCH ×2 (08:04→21:06)
[2018-11-17] MEDS: MICONAZOLE NITRATE POWDER 43 GM TOP SCH ×2 (08:04→21:03)
[2018-11-17 08:05] LABS: BUN Creatinine Ratio 35.3 (10-20); Calcium 8.7 mg/dl (8.5-10.1); Creatinine Clr Calc Pharmacy 42.5 ml/min; Est GFR (African American) 39.8; Est GFR (Non-African American) 34.4; Magnesium 2.2 mg/dl (1.8-2.4); Potassium 3.4 mmol/L (3.5-5.1)
[2018-11-17] MEDS: BusPIRone 15 MG TAB PO SCH ×2 (08:05→21:01)
[2018-11-17] MEDS: ARTIFICIAL TEARS OPB SCH ×2 (08:05→21:00)
[2018-11-17] MEDS: FLUTICASONE/SALMETEROL (ADVAIR) 500/50 INH 14 PUFF INH SCH ×2 (08:05→20:59)
[2018-11-17] MEDS: INSULIN GLARGINE SOLOSTAR 100 UNITS/ML 3 ML PEN SC SCH ×2 (08:06→21:03)
[2018-11-17] MEDS: INSULIN ASPART 100 UNITS/ML 3 ML PEN SC SCH ×4 (08:06→21:04)
[2018-11-17] MEDS: OSELTAMIVIR PHOSPHATE SUSP 30 MG/5 ML UDP PO SCH ×2 (08:10→21:11)
[2018-11-17] MEDS: CEFEPIME 2,000 MG in SYRINGE 7.5 ML IV SCH ×2 (10:01→21:12)
--- NOTE | 2018-11-17 15:42 | Hospitalist Progress Note ---
Date of Service November 17, 2018 Assessment & Plan (1) Influenza A: Continue oseltamivir to complete 5 day course of therapy. (2) Atrial fibrillation: Continue metoprolol, diltiazem, warfarin. (3) Diastolic CHF: Compensated. Diurese PRN. (4) Hypertension: Continue metoprolol, diltiazem, warfarin. (5) DM type 2 (diabetes mellitus, type 2): FBS 138. On prednisone. Insulin coverage per protocol. (6) Hematoma of right lower extremity: Resolving. (7) DVT prophylaxis: Warfarin. Ambulate. (8) Discharge planning issues: Anticipated return to [facility]. Subjective Recheck for influenza A and other problems. Pt seen in her room around 1540. Feels better. Temp down. Cough and wheezing improved. No chest pain. No nausea, vomiting, diarrhea. Physical Exam 2 Vital Signs (Past 24 Hours): Last Vital Signs Temp 36.2 C L 11/17/18 11:30 Pulse 74 11/17/18 15:02 Resp 18 11/17/18 15:02 BP 116/68 11/17/18 11:30 Pulse Ox 90 11/17/18 15:02 Constitutional: no acute distress Respiratory: Auscultation: + rhonchi (few) and + wheezes (mild diffuse) Cardiovascular: Rate/Rhythm: regular rate and regular rhythm Extremities: + edema (1-2+ pretibial) Gastrointestinal (Abdomen): Inspection/Auscultation: normal bowel sounds Percussion/Palpation: abdomen soft; abdomen nontender Musculoskeletal: Extremities: + extremities abnormal to inspection (resolving hematoma / ecchymoses right knee & leg) Psychiatric: Orientation: alert and oriented x 3 Results & Data Laboratory Results Laboratory Results - last 24 hr 11/17/18 11/17/18 11/17/18 07:05 07:05 07:05 WBC 15.71 H RBC 3.84 L Hgb 13.2 Hct 38.9 MCV 101.3 H MCH 34.4 H MCHC 33.9 RDW Std Deviation 60.2 H RDW Coeff of Kenneth 16.4 H Plt Count 226 MPV 10.9 H PT 24.2 H INR 2.5 H Sodium 134 L Potassium 3.4 L Chloride 98 Carbon Dioxide 27 Anion Gap 9.0 BUN 52 H Creatinine 1.46 H Est Cr Clr Drug Dosing 42.5 Est GFR ( Amer) 39.8 Est GFR (Non-Af Amer) 34.4 BUN/Creatinine Ratio 35.3 H Glucose 138 H Calcium 8.7 Magnesium 2.2 Specimen Hemolysis Microbiology 11/15/18 21:25 Sputum, Expectorated Gram Stain - Final 11/15/18 21:25 Sputum, Expectorated Sputum Culture - Final Heavy normal petar. 11/15/18 15:30 Urine,Straight Cath Urine Culture - Final Proteus mirabilis 11/15/18 15:12 Blood Blood Culture - Preliminary No growth to date. 11/15/18 14:13 Blood Blood Culture - Preliminary No growth to date.
[2018-11-17] MEDS: WARFARIN SOD 3 MG TAB PO SCH (17:00)
[2018-11-17] MEDS: POLYETHYLENE (MIRALAX) 17 GM PACK PO SCH (21:01)
[2018-11-17] MEDS: TRAZODONE HCL 50 MG TAB PO SCH (21:03)
[2018-11-17] MEDS: MONTELUKAST SODIUM 10 MG TABLET PO SCH (21:05)
[2018-11-18] MEDS ORDERED: VANCOMYCIN TROUGH ONE (01:30)
[2018-11-18] MEDS: PANTOprazole 40 MG TAB PO SCH (06:25)
[2018-11-18] MEDS: LEVOTHYROXINE SODIUM 75 MCG TABLET PO SCH (06:25)
[2018-11-18] MEDS: ALBUT/IPRATROP 3MG/0.5MG NEB 3 ML VIAL NEB SCH ×4 (07:13→19:55)
[2018-11-18 07:26] LABS: INR 3.1 (0.9-1.1); Prothrombin Time 29.7 Seconds (9.0-12.0)
[2018-11-18 07:29] LABS: BUN Creatinine Ratio 44.8 (10-20); Calcium 8.8 mg/dl (8.5-10.1); Creatinine Clr Calc Pharmacy 46.3 ml/min; Est GFR (African American) 44.2; Est GFR (Non-African American) 38.1; Potassium 3.5 mmol/L (3.5-5.1)
[2018-11-18] MEDS: DOXYCYCLINE HYCLATE 100 MG CAP PO SCH ×2 (08:52→20:47)
[2018-11-18] MEDS: METOPROLOL TARTRATE 25 MG TAB PO SCH ×2 (08:52→20:46)
[2018-11-18] MEDS: ALLOPURINOL 100 MG TAB PO SCH (08:52)
[2018-11-18] MEDS: predniSONE 20 MG TAB PO SCH (08:52)
[2018-11-18] MEDS: SPIRONOLACTONE 25 MG TAB PO SCH (08:52)
[2018-11-18] MEDS: COLCHICINE 0.6 MG TAB PO SCH (08:53)
[2018-11-18] MEDS: SENNA 8.6 MG TAB PO SCH ×2 (08:53→20:46)
[2018-11-18] MEDS: FLUTICASONE/SALMETEROL (ADVAIR) 500/50 INH 14 PUFF INH SCH ×2 (08:53→20:42)
[2018-11-18] MEDS: DULOXETINE HCL 60 MG CAP PO SCH (08:53)
[2018-11-18] MEDS: dilTIAZem HCL 240 MG CAPCR PO SCH (08:53)
[2018-11-18] MEDS: BusPIRone 15 MG TAB PO SCH ×2 (08:54→20:43)
[2018-11-18] MEDS: DOCUSATE SODIUM 100 MG CAP PO SCH ×2 (08:54→20:44)
[2018-11-18] MEDS: INSULIN ASPART 100 UNITS/ML 3 ML PEN SC SCH ×4 (08:55→20:46)
[2018-11-18] MEDS: INSULIN GLARGINE SOLOSTAR 100 UNITS/ML 3 ML PEN SC SCH ×2 (08:55→20:45)
[2018-11-18] MEDS: SIMETHICONE 80 MG CHEW PO SCH ×3 (08:56→18:36)
[2018-11-18] MEDS: ARTIFICIAL TEARS OPB SCH ×2 (08:57→20:42)
[2018-11-18] MEDS: MUPIROCIN 2% OINT 22 GM TUBE EXT SCH ×2 (08:57→20:43)
[2018-11-18] MEDS: MICONAZOLE NITRATE POWDER 43 GM TOP SCH ×2 (08:58→20:44)
[2018-11-18] MEDS: OSELTAMIVIR PHOSPHATE SUSP 30 MG/5 ML UDP PO SCH ×2 (08:59→20:56)
[2018-11-18] MEDS: CEFEPIME 2,000 MG in SYRINGE 7.5 ML IV SCH ×2 (09:06→21:02)
[2018-11-18] MEDS: PREGABALIN 50 MG CAP PO SCH ×3 (09:12→18:36)
[2018-11-18] MEDS: fentaNYL 50 MCG/HR TDSY TD SCH (12:25)
[2018-11-18] MEDS ORDERED: WARFARIN SOD 0.5 MG TAB PO SCH (16:00)
[2018-11-18] MEDS ORDERED: WARFARIN SOD 1 MG TAB PO SCH (16:00)
[2018-11-18] MEDS: CHECK FENTANYL PATCH PLACEMENT SCH (16:22)
--- NOTE | 2018-11-18 18:22 | Hospitalist Progress Note ---
Date of Service November 18, 2018 Assessment & Plan (1) Influenza A: Continue oseltamivir to complete 5 day course of therapy. Nasal MRSA swab positive. No infiltrates on chest x-ray. May or may not have MRSA respiratory tract infection, but at risk due to influenza and will continue doxycyline. (2) Atrial fibrillation: Continue metoprolol, diltiazem, warfarin. (3) Diastolic CHF: Compensated. (4) Hypertension: Continue metoprolol, diltiazem, warfarin. (5) DM type 2 (diabetes mellitus, type 2): FBS 161. On prednisone; discontinue as soon as possible. (6) Hematoma of right lower extremity: Resolving. (7) Urinary tract infection: (present on admission) Urine C&S day of admission eli Proteus mirabilis. Received cefepime. Transition to oral therapy with cephalexin. (8) DVT prophylaxis: Warfarin. Ambulate. (9) Discharge planning issues: Anticipated return to [facility]. Subjective Recheck for influenza A and other problems. Pt seen in her room around 1500. Afebrile. Persistent coughing and wheezing. No chest pain. No nausea, vomiting, diarrhea. Physical Exam 2 Vital Signs (Past 24 Hours): Last Vital Signs Temp 36.4 C L 11/18/18 14:29 Pulse 102 H 11/18/18 16:00 Resp 18 11/18/18 15:40 BP 126/79 11/18/18 14:29 Pulse Ox 93 11/18/18 15:40 Constitutional: + ill appearing; no acute distress Respiratory: Auscultation: + rhonchi and + wheezes (mild diffuse) Cardiovascular: Rate/Rhythm: regular rate and regular rhythm Extremities: + edema (1-2+ pretibial) Gastrointestinal (Abdomen): Inspection/Auscultation: normal bowel sounds Percussion/Palpation: abdomen soft; abdomen nontender Musculoskeletal: Extremities: + extremities abnormal to inspection (resolving hematoma / ecchymoses right knee & leg) Psychiatric: Orientation: alert and oriented x 3 Results & Data Laboratory Results Laboratory Results - last 24 hr 11/18/18 11/18/18 06:21 06:21 PT 29.7 H INR 3.1 H Sodium 137 Potassium 3.5 Chloride 98 Carbon Dioxide 32 Anion Gap 8.0 BUN 60 H Creatinine 1.34 H Est Cr Clr Drug Dosing 46.3 Est GFR ( Amer) 44.2 Est GFR (Non-Af Amer) 38.1 BUN/Creatinine Ratio 44.8 H Glucose 161 H Calcium 8.8
[2018-11-18] MEDS: TRAZODONE HCL 50 MG TAB PO SCH (20:45)
[2018-11-18] MEDS: MONTELUKAST SODIUM 10 MG TABLET PO SCH (20:47)
[2018-11-19] MEDS: CHECK FENTANYL PATCH PLACEMENT SCH ×3 (00:04→16:13)
[2018-11-19] MEDS: PANTOprazole 40 MG TAB PO SCH (05:19)
[2018-11-19] MEDS: LEVOTHYROXINE SODIUM 75 MCG TABLET PO SCH (05:19)
[2018-11-19] MEDS ORDERED: POTASSIUM CHLORIDE 20 MEQ TABCR PO ONE (07:01)
[2018-11-19] MEDS: ALBUT/IPRATROP 3MG/0.5MG NEB 3 ML VIAL NEB SCH ×4 (07:06→18:57)
[2018-11-19] MEDS ORDERED: FUROSEMIDE 40 MG in SYRINGE 0 ML IV ONE (07:15)
[2018-11-19] MEDS: PREGABALIN 50 MG CAP PO SCH ×3 (08:52→18:08)
[2018-11-19] MEDS: cephALEXin 500 MG CAP PO SCH ×4 (08:53→20:49)
[2018-11-19] MEDS: predniSONE 20 MG TAB PO SCH (08:53)
[2018-11-19] MEDS: INSULIN ASPART 100 UNITS/ML 3 ML PEN SC SCH ×4 (08:53→20:44)
[2018-11-19] MEDS: DULOXETINE HCL 60 MG CAP PO SCH (08:54)
[2018-11-19] MEDS: SENNA 8.6 MG TAB PO SCH ×2 (08:54→20:49)
[2018-11-19] MEDS: METOPROLOL TARTRATE 25 MG TAB PO SCH ×2 (08:54→20:49)
[2018-11-19] MEDS: DOXYCYCLINE HYCLATE 100 MG CAP PO SCH ×2 (08:54→20:49)
[2018-11-19] MEDS: DOCUSATE SODIUM 100 MG CAP PO SCH ×2 (08:54→20:49)
[2018-11-19] MEDS: INSULIN GLARGINE SOLOSTAR 100 UNITS/ML 3 ML PEN SC SCH ×2 (08:54→20:43)
[2018-11-19] MEDS: SPIRONOLACTONE 25 MG TAB PO SCH (08:55)
[2018-11-19] MEDS: ALLOPURINOL 100 MG TAB PO SCH (08:55)
[2018-11-19] MEDS: FLUTICASONE/SALMETEROL (ADVAIR) 500/50 INH 14 PUFF INH SCH ×2 (08:55→20:48)
[2018-11-19] MEDS: BusPIRone 15 MG TAB PO SCH ×2 (09:00→20:49)
[2018-11-19] MEDS: dilTIAZem HCL 240 MG CAPCR PO SCH (09:00)
[2018-11-19] MEDS: ARTIFICIAL TEARS OPB SCH ×2 (09:01→20:48)
[2018-11-19] MEDS: COLCHICINE 0.6 MG TAB PO SCH (09:01)
[2018-11-19] MEDS: MICONAZOLE NITRATE POWDER 43 GM TOP SCH ×2 (09:02→20:48)
[2018-11-19] MEDS: MUPIROCIN 2% OINT 22 GM TUBE EXT SCH ×2 (09:02→20:52)
[2018-11-19] MEDS: SIMETHICONE 80 MG CHEW PO SCH ×3 (09:03→18:08)
[2018-11-19] MEDS: OSELTAMIVIR PHOSPHATE SUSP 30 MG/5 ML UDP PO SCH ×2 (09:09→20:51)
[2018-11-19] MEDS: WARFARIN SOD 3 MG TAB PO SCH (16:12)
--- NOTE | 2018-11-19 20:12 | Hospitalist Progress Note ---
Date of Service November 19, 2018 Assessment & Plan (1) Influenza A: Continue oseltamivir to complete 5 day course of therapy. Nasal MRSA swab positive. No infiltrates on chest x-ray. May or may not have MRSA respiratory tract infection, but at risk due to influenza and will continue doxycyline. (2) Atrial fibrillation: Continue metoprolol, diltiazem, warfarin. (3) Diastolic CHF: Compensated. (4) Hypertension: Continue metoprolol, diltiazem, warfarin. (5) DM type 2 (diabetes mellitus, type 2): FBS as high as 207. On prednisone; taper and discontinue as soon as possible. (6) Hematoma of right lower extremity: Resolving. (7) Urinary tract infection: (present on admission) Urine C&S day of admission eli Proteus mirabilis. Received cefepime. Transition to oral therapy with cephalexin. (8) DVT prophylaxis: Warfarin. Ambulate. (9) Discharge planning issues: Anticipated return to [facility]. Subjective Recheck for influenza A and other problems. Pt seen in her room around 1800. Afebrile. Persistent coughing and wheezing. No chest pain. No nausea, vomiting, diarrhea. No urinary symptoms. Ambulating in room. Physical Exam 2 Vital Signs (Past 24 Hours): Last Vital Signs Temp 36.3 C L 11/19/18 19:10 Pulse 88 11/19/18 19:10 Resp 20 11/19/18 19:50 BP 112/76 11/19/18 19:10 Pulse Ox 93 11/19/18 19:50 Constitutional: + ill appearing; no acute distress Respiratory: Auscultation: + rhonchi and + wheezes (mild diffuse) Cardiovascular: Rate/Rhythm: regular rate and regular rhythm Extremities: + edema (1-2+ pretibial) Gastrointestinal (Abdomen): Inspection/Auscultation: normal bowel sounds Percussion/Palpation: abdomen soft; abdomen nontender Musculoskeletal: Extremities: + extremities abnormal to inspection (resolving hematoma / ecchymoses right knee & leg) Psychiatric: Orientation: alert and oriented x 3
[2018-11-19] MEDS: POLYETHYLENE (MIRALAX) 17 GM PACK PO SCH (20:47)
[2018-11-19] MEDS: TRAZODONE HCL 50 MG TAB PO SCH (20:49)
[2018-11-19] MEDS: MONTELUKAST SODIUM 10 MG TABLET PO SCH (20:49)
[2018-11-20] MEDS: CHECK FENTANYL PATCH PLACEMENT SCH ×3 (00:01→16:14)
[2018-11-20] MEDS: FUROSEMIDE ORAL SOLN 40 MG/5 ML UDP PO SCH ×2 (05:31→12:30)
[2018-11-20] MEDS: PANTOprazole 40 MG TAB PO SCH (05:31)
[2018-11-20] MEDS: LEVOTHYROXINE SODIUM 75 MCG TABLET PO SCH (05:31)
[2018-11-20 08:23] LABS: Hematocrit (blood only) 43.2 % (37-47); Hemoglobin 14.5 g/dL (12.0-16.0); Mean Corpuscular Hgb Conc 33.6 g/dL (32-36); Mean Corpuscular Volume 100.7 fL (80-100); Mean Platelet Volume 11.5 fL (7.4-10.4); Platelet Count 233 K/uL (130-400); RDW Coefficient of Variation 16.3 % (11.5-14.5); RDW Standard Deviation 59.5 fL (36.4-46.3); Red Blood Count 4.29 M/uL (4.2-5.4); White Blood Count 10.24 K/uL (4.8-10.8)
[2018-11-20 08:45] LABS: Prothrombin Time 42.4 Seconds (9.0-12.0)
[2018-11-20] MEDS: INSULIN ASPART 100 UNITS/ML 3 ML PEN SC SCH ×2 (08:48→12:29)
[2018-11-20] MEDS: FLUTICASONE/SALMETEROL (ADVAIR) 500/50 INH 14 PUFF INH SCH ×2 (08:49→20:44)
[2018-11-20] MEDS: MICONAZOLE NITRATE POWDER 43 GM TOP SCH ×2 (08:49→20:48)
[2018-11-20 08:50] LABS: INR 4.6 (0.9-1.1)
[2018-11-20] MEDS: SPIRONOLACTONE 25 MG TAB PO SCH (08:50)
[2018-11-20] MEDS: OSELTAMIVIR PHOSPHATE SUSP 30 MG/5 ML UDP PO SCH ×2 (08:50→21:04)
[2018-11-20] MEDS: SIMETHICONE 80 MG CHEW PO SCH ×3 (08:51→17:47)
[2018-11-20] MEDS: dilTIAZem HCL 240 MG CAPCR PO SCH (08:51)
[2018-11-20] MEDS: cephALEXin 500 MG CAP PO SCH ×4 (08:51→20:50)
[2018-11-20 08:52] LABS: BUN Creatinine Ratio 37.7 (10-20); Calcium 9.1 mg/dl (8.5-10.1); Creatinine Clr Calc Pharmacy 46.8 ml/min; Est GFR (Non-African American) 38.8; Potassium 3.4 mmol/L (3.5-5.1)
[2018-11-20] MEDS: COLCHICINE 0.6 MG TAB PO SCH (08:52)
[2018-11-20] MEDS: DOXYCYCLINE HYCLATE 100 MG CAP PO SCH ×2 (08:52→20:52)
[2018-11-20] MEDS: ALLOPURINOL 100 MG TAB PO SCH (08:52)
[2018-11-20] MEDS: SENNA 8.6 MG TAB PO SCH ×2 (08:53→20:52)
[2018-11-20] MEDS: BusPIRone 15 MG TAB PO SCH ×2 (08:53→20:48)
[2018-11-20] MEDS: METOPROLOL TARTRATE 25 MG TAB PO SCH ×2 (08:54→20:52)
[2018-11-20] MEDS: INSULIN GLARGINE SOLOSTAR 100 UNITS/ML 3 ML PEN SC SCH (08:55)
[2018-11-20] MEDS: PREGABALIN 50 MG CAP PO SCH ×3 (08:55→17:47)
[2018-11-20] MEDS: POTASSIUM CHLORIDE 20 MEQ TABCR PO SCH ×2 (08:55→20:51)
[2018-11-20] MEDS: ARTIFICIAL TEARS OPB SCH ×2 (08:56→20:45)
[2018-11-20] MEDS: DULOXETINE HCL 60 MG CAP PO SCH (08:56)
[2018-11-20] MEDS: DOCUSATE SODIUM 100 MG CAP PO SCH ×2 (08:56→20:48)
[2018-11-20] MEDS: MUPIROCIN 2% OINT 22 GM TUBE EXT SCH ×2 (08:57→20:47)
[2018-11-20] MEDS ORDERED: predniSONE 10 MG TABLET PO SCH (09:00)
[2018-11-20] MEDS: ALBUT/IPRATROP 3MG/0.5MG NEB 3 ML VIAL NEB SCH (10:16)
--- NOTE | 2018-11-20 14:21 | Hospitalist Progress Note ---
Date of Service November 20, 2018 Assessment & Plan (1) Influenza A: Tamiflu, doxy to cover possible MRSA related respiratory illness. She is expectorating mucous and improving today. Also, no significant wheezing or respiratory distress. Will cancel prednisone for which only one dose was given this am as unsure of the need. This will also drive her blood sugar up and she is declining insulin at this time. (2) ROSEY (acute kidney injury): Mildly elevated creat to 1.3 which is stable on current dose of Lasix but up from baseline, which is around 1. Cut dose of Lasix by 50% and cont to trend creat. (3) Atrial fibrillation: chronic, stable. Cont metoprolol, diltiazem and warfarin. Daily INR (4) Diastolic CHF: Compensated. Cont daily Lasix per home regimen. (5) DM type 2 (diabetes mellitus, type 2): Diet-controlled at home and patient currently refusing insulin. Discontinued. Cont ADA diet. Also, prednisone stopped as above. (6) Urinary tract infection: (present on admission) 2/2 Proteus. Empirically on cefepime, transitioned to Keflex. (7) DVT prophylaxis: Warfarin. Ambulate. Full no Mech Vent Dispo-cont treatment until Tamiflu course finished and she is at baseline oxygen status. Then back to [facility]. Opal العراقي DO [facility] Hospitalist Subjective 78 yo F admitted with JOS and found to have flu. Improved with expectoration of greenish mucous and she states things feel like they are breaking up. Denies fevers, chills. She is eating. Physical Exam 2 Vital Signs (Past 24 Hours): Last Vital Signs Temp 36.8 C 11/20/18 11:19 Pulse 101 H 11/20/18 11:19 Resp 18 11/20/18 11:19 BP 113/70 11/20/18 11:19 Pulse Ox 93 11/20/18 11:19 CONSTITUTIONAL: obese, vitals as above, generally well-appearing EYES: normal conjuctivae, no scleral icterus ENT: MMM RESPIRATORY: clear to auscultation bilaterally, no crackles, rales or wheezes, normal respiratory effort CARDIOVASCULAR: regular rate and rhythm, S1 and 2 heard without murmurs, gallops or rubs, no JVD, no peripheral edema GASTROINTESTINAL: normal bowel sounds, soft, nontender, nondistended. Limited exam and patient with multiple heavy skin folds and obese abdomen. MUSCULOSKELETAL: generally intact and nonfocal. head is normocephalic and atraumatic SKIN: warm and dry, lateral dusky hue to R leg that is chronic per patient extends up to knee. NEUROLOGIC: CN 2-12 grossly intact, no sensory deficit, normal cognition PSYCHIATRIC: alert cooperative and oriented to person, place and time. Results & Data Laboratory Results Short CBC 11/20/18 Range/Units 08:01 WBC 10.24 (4.8-10.8) K/uL Hgb 14.5 (12.0-16.0) g/dL Hct 43.2 (37-47) % Plt Count 233 (130-400) K/uL BMP 11/20/18 08:01 Sodium 136 Potassium 3.4 L Chloride 100 Carbon Dioxide 30 BUN 50 H Creatinine 1.32 H Glucose 136 H Calcium 9.1
[2018-11-20] MEDS: TRAZODONE HCL 50 MG TAB PO SCH (20:50)
[2018-11-20] MEDS: MONTELUKAST SODIUM 10 MG TABLET PO SCH (20:53)
[2018-11-21] MEDS: CHECK FENTANYL PATCH PLACEMENT SCH ×3 (00:19→16:07)
[2018-11-21 06:16] LABS: Hematocrit (blood only) 46.4 % (37-47); Hemoglobin 15.8 g/dL (12.0-16.0); Mean Corpuscular Hgb Conc 34.1 g/dL (32-36); Mean Corpuscular Volume 101.5 fL (80-100); Mean Platelet Volume 11.8 fL (7.4-10.4); Platelet Count 218 K/uL (130-400); RDW Standard Deviation 59.7 fL (36.4-46.3); Red Blood Count 4.57 M/uL (4.2-5.4); White Blood Count 11.95 K/uL (4.8-10.8)
[2018-11-21 06:37] LABS: Prothrombin Time 38.7 Seconds (9.0-12.0)
[2018-11-21 06:38] LABS: INR 4.2 (0.9-1.1)
[2018-11-21] MEDS: LEVOTHYROXINE SODIUM 75 MCG TABLET PO SCH (06:42)
[2018-11-21] MEDS: PANTOprazole 40 MG TAB PO SCH (06:43)
[2018-11-21] MEDS: FUROSEMIDE ORAL SOLN 40 MG/5 ML UDP PO SCH ×2 (06:43→12:11)
[2018-11-21 06:47] LABS: BUN Creatinine Ratio 37.2 (10-20); Calcium 9.2 mg/dl (8.5-10.1); Creatinine Clr Calc Pharmacy 45.8 ml/min; Est GFR (African American) 44.2; Est GFR (Non-African American) 38.1
[2018-11-21] MEDS: SPIRONOLACTONE 25 MG TAB PO SCH (08:44)
[2018-11-21] MEDS: PREGABALIN 50 MG CAP PO SCH ×2 (08:49→12:13)
[2018-11-21] MEDS: fentaNYL 50 MCG/HR TDSY TD SCH (08:49)
[2018-11-21] MEDS: ARTIFICIAL TEARS OPB SCH (08:50)
[2018-11-21] MEDS: COLCHICINE 0.6 MG TAB PO SCH (08:50)
[2018-11-21] MEDS: POTASSIUM CHLORIDE 20 MEQ TABCR PO SCH (08:50)
[2018-11-21] MEDS: DOXYCYCLINE HYCLATE 100 MG CAP PO SCH (08:50)
[2018-11-21] MEDS: cephALEXin 500 MG CAP PO SCH ×3 (08:50→16:07)
[2018-11-21] MEDS: DOCUSATE SODIUM 100 MG CAP PO SCH (08:50)
[2018-11-21] MEDS: METOPROLOL TARTRATE 25 MG TAB PO SCH (08:50)
[2018-11-21] MEDS: dilTIAZem HCL 240 MG CAPCR PO SCH (08:50)
[2018-11-21] MEDS: BusPIRone 15 MG TAB PO SCH (08:50)
[2018-11-21] MEDS: SENNA 8.6 MG TAB PO SCH (08:50)
[2018-11-21] MEDS: DULOXETINE HCL 60 MG CAP PO SCH (08:50)
[2018-11-21] MEDS: ALLOPURINOL 100 MG TAB PO SCH (08:51)
[2018-11-21] MEDS: SIMETHICONE 80 MG CHEW PO SCH ×2 (08:51→12:10)
[2018-11-21] MEDS: MICONAZOLE NITRATE POWDER 43 GM TOP SCH (08:52)
[2018-11-21] MEDS: MUPIROCIN 2% OINT 22 GM TUBE EXT SCH (08:52)
[2018-11-21] MEDS: FLUTICASONE/SALMETEROL (ADVAIR) 500/50 INH 14 PUFF INH SCH (08:52)
[2018-11-21] MEDS: LORazepam 0.5 MG TAB PO PRN ×2 (12:10→16:07)
--- NOTE | 2018-11-21 15:31 | Discharge Summary ---
Date of Service November 21, 2018 Admission HPI Per Admitting Provider 78 y/o F with PMH a-fib on coumadin, h/o PE, obesity hypoventilation syndrome, asthma, COPD, chronic diastolic HF, anxiety, HTN, hyperuricemia, CKD III, h/o MRSA , recently discharged on 11/06/18 for extensive ecchymoses and erythema of right lower extremity for possible cellulitis. She was discharged on doxycycline and completed the course. As per [facility] note, pt developed flu like symptoms yesterday. Pt said that she developed a yellowish productive cough associated with SOB. Pt developed a fever today with Temp 100.6 associated with chills. She said that she has been required more oxygen in the last 2 days. She said that before she was using the oxygen with ambulation. In the ER influenza type A PCR positive. Denies any diaphoresis, diarrhea, constipation, KUMARI, dizziness, syncope, chest pain, palpitations and urinary symptoms. Admission Exam Per Admitting Provider General: no distress, obese Head: normocephalic, atraumatic Eyes: conjunctiva non-injected, anicteric ENT: normal inspection external ears, nose, mucous membranes moist Neck: supple, trachea midline, non-tender Lungs: Coarse BS CV: irregularly irregular Abd: normal BS, distended secondary to adipose tissue, soft, non-tender Ext: RLE: R knee with ecchymosis, Left LE with skin abrasion and erhythema around the tibia area LLE: non-tender, +edema Neuro: A&O x 3, no focal deficits noted, normal affect Skin: warm, dry Principal Diagnosis Influenza A Acute kidney injury Chronic atrial fibrillation Diastolic CHF-compensated Diabetes mellitus type 2 Urinary tract infection present on admission secondary to Proteus Supratherapeutic INR Discharge Data Allergies Allergy/AdvReac Type Severity Reaction Status Date / Time meperidine [From Demerol] Allergy Unknown ON WINDY Verified 11/15/18 17:11 HILL LIST morphine AdvReac Intermediate vomiting Verified 11/15/18 17:11 oxycodone AdvReac Intermediate vomit blood Verified 11/15/18 17:11 propoxyphene AdvReac Intermediate abd vomit Verified 11/15/18 17:11 blood tramadol AdvReac Intermediate vomiting Verified 11/15/18 17:11 Bactrim AdvReac Mild GI SYMPTOMS Verified 03/06/18 21:06 codeine AdvReac Mild vomiting Verified 11/15/18 17:11 olmesartan AdvReac Mild GI SYMPTOMS Verified 11/15/18 17:11 Sulfa (Sulfonamide AdvReac Mild GI SYMPTOMS Verified 11/15/18 17:11 Antibiotics) sulfamethoxazole AdvReac Mild GI SYMPTOMS Verified 11/15/18 17:11 trimethoprim AdvReac Mild GI SYMPTOMS Verified 11/15/18 17:11 carisoprodol AdvReac Unknown GI SYMPTOMS Verified 11/15/18 17:11 Consultations 11/15/18 15:30 ED Decision to Admit Stat 11/15/18 18:52 Consult Case Management - Discharge Planning Routine Hospital Course (1) Influenza A: (2) ROSEY (acute kidney injury): (3) Atrial fibrillation: (4) Diastolic CHF: (5) DM type 2 (diabetes mellitus, type 2): (6) Urinary tract infection: 78-year-old female presented to the emergency room with constant and worsening shortness of breath associated with worsening cough and congestion and a fever. On arrival she was 88-90% on room air and does not typically use oxygen or CPAP at home. She was placed on 2 L nasal cannula with good response. Respiratory exam revealed diffuse wheezes and diminished breath sounds at the bases with some labored breathing. She had 3+ bilateral edema on the lower extremities and warmth of the right lower leg. A flu swab was positive for influenza A. White blood cell count was normal. Chest x-ray revealed possible small airspace opacity in the right midlung zone, however, this was thought possibly secondary to old, healed rib fractures. An EKG revealed normal sinus rhythm with a rate of 89, first-degree AV block and no acute ischemic changes. Given the patient's fever of 38.3 �C and respiratory distress on arrival she was given empiric antibiotics with cefepime and vancomycin. BiPAP was discussed with the patient but she refused and was then given a continuous DuoNeb. Creatinine was 1.36 with a baseline around 1. However, it was noted that she was previously discharged from the hospital with a creatinine of 1.5, indicating somewhat of a range baseline approximately 1-1.3. Lactate was within normal limits, troponin was negative. Urinalysis was suspicious for infection with white blood cell count greater than 30 and 2+ bacteria. She was admitted to the hospital for further workup and treatment. She was started on Tamiflu and received 5 days. Vancomycin and cefepime were continued and prednisone 40 mg daily was added. Antibiotics were transitioned to doxycycline as she was MRSA positive and thought to possibly have a MRSA respiratory tract infection superimposed on her influenza, however, chest x-ray findings were not thought consistent with pneumonia. She continued to improve over the next several days. Her creatinine remained approximately 1.3 and this was thought secondary to increased Lasix dosing while hospitalized. The dose of Lasix was decreased by 50%, to 20 mg p.o. twice daily and it was recommended that she repeat blood work in 1 week with her primary care doctor. Atrial fibrillation was stable and she was continued on metoprolol, diltiazem and warfarin per home regimen. Her INR trended to 4.6, and Coumadin was held with recommendations at discharge to carine watters to hold the Coumadin for an additional 2 days and then repeating the INR with follow-up by primary care. She was found to have a urinary tract infection secondary to Proteus, and antibiotics were transitioned to Keflex. At time of discharge she was euvolemic on exam with clear lungs bilaterally, no peripheral edema and an improvement to her right leg with respect to warmth and erythema. She was mentating and ambulating at baseline and tolerating p.o. She was discharged in stable condition back to [facility] with close primary care follow-up. Total Time Total Time Spent Total Time Spent (In Minutes): 60 Total Time Includes: Examination of the Patient, Discharge Planning, Medication Reconciliation and Communication With Other Providers Discharge Plan Discharge Items Patient Disposition: Transfer [facility] Reason For Visit: FLU LIKE SYMPTOMS Discharge Diagnosis: Influenza A Acute kidney injury Chronic atrial fibrillation Diastolic CHF-compensated Diabetes mellitus type 2 Urinary tract infection present on admission secondary to Proteus Supratherapeutic INR Condition: Good Discharge Goals: Increase independence Activity: Resume your previous activity Non-emergency contact: Primary Care Provider Call non-emergency contact if: you have any medication questions, your symptoms worsen, your pain is not controlled, your pain is worsening, your pain is unusual for you, your pain is concerning for you and you have a fever Diet: Carb Consistent or DM2 and Heart Healthy Addtl Provider Instructions: Please take all medications as instructed on discharge list below. As discussed please obtain repeat INR in 2 days as your current INR level is supra therapeutic at 4.2. Please hold Coumadin during this time until otherwise instructed by the physician who reviews this result. Your goal INR range is between 2 and 3. Please note that warfarin was only held, not discontinued. It is recommended that you have a repeat chest x-ray in 4-6 weeks to ensure complete resolution of pneumonia. You will need repeat nonfasting blood work, basic metabolic panel in 1 week after taking 50% of your Lasix and potassium dosages. This is to evaluate your kidney function which should be reviewed by Mamadou Tellez PA-C It is recommended that you follow-up with evidence with Laith Tellez PA-C within one week to ensure complete resolution of pneumonia symptoms. Prescriptions: New furosemide [Lasix] 20 mg tablet 20 mg PO BID Qty: 60 RF: 0 potassium chloride 20 mEq tablet extended release 20 meq PO BID Qty: 60 RF: 0 Continued sennosides [Senna-Gen] 8.6 mg Tablet 8.6 mg PO AMHS RF: 0 acetaminophen 650 mg Suppository 650 mg GA Q6H PRN (Reason: TEMP >100.4, IF NOT TAKING PO) RF: 0 ipratropium-albuterol 0.5 mg-3 mg(2.5 mg base)/3 mL Solution For Nebulization 3 ml INHALATION Q4 PRN (Reason: Shortness Of Breath Or Wheezing) RF: 0 trazodone 50 mg Tablet 50 mg PO HS RF: 0 polyethylene glycol 3350 [Miralax] 17 gram Powder In Packet 17 g PO Q OTHER DAY RF: 0 simethicone [Gas-X Ultra-Strength] 180 mg Capsule 180 mg PO PC RF: 0 ondansetron HCl [Zofran] 8 mg Tablet 8 mg PO Q8 PRN (Reason: Nausea) RF: 0 diltiazem HCl [Cardizem CD] 240 mg Capsule,Extended Release 24hr 240 mg PO QAM RF: 0 sucralfate 1 gram Tablet 1 g PO AMPM RF: 0 miconazole nitrate [Desenex] 2 % Powder 1 applic TOPICAL BID RF: 0 allopurinol 100 mg Tablet 200 mg PO QAM RF: 0 tramadol 50 mg Tablet 50 mg PO QID PRN (Reason: Pain) RF: 0 spironolactone 25 mg Tablet 25 mg PO QAM RF: 0 pantoprazole 20 mg Tablet,Delayed Release (Dr/Ec) 20 mg PO DAILYBB RF: 0 levothyroxine 75 mcg Tablet 75 mcg PO DAILYBB RF: 0 lorazepam 0.5 mg Tablet 0.5 mg PO TID PRN (Reason: Anxiety) RF: 0 magnesium hydroxide [Milk of Magnesia] 400 mg/5 mL Suspension 30 ml PO DAILY PRN (Reason: NO BM X 3 DAYS.) RF: 0 carboxymethylcellulose sodium [Refresh Tears] 0.5 % Drops 1 drp OPB BID RF: 0 meclizine 25 mg Tablet 25 mg PO TID PRN (Reason: Dizziness) RF: 0 bisacodyl [Dulcolax (bisacodyl)] 10 mg Suppository 10 mg GA DAILY PRN (Reason: NO RESULTS FROM MOM, DAY 5) RF: 0 buspirone 30 mg Tablet 15 mg PO AMHS RF: 0 ferrous sulfate 325 mg (65 mg iron) Tablet 325 mg PO AMHS RF: 0 fluticasone-salmeterol [Advair Diskus] 500-50 mcg/dose Blister With Device 1 inh INHALATION AMHS RF: 0 sodium phosphates [Fleet Enema] 19-7 gram/118 mL Enema 118 ml GA DAILY PRN (Reason: NO RESULTS FROM SUPPOSITORY) RF: 0 docusate sodium [Colace] 100 mg Capsule 100 mg PO AMHS RF: 0 montelukast 10 mg Tablet 10 mg PO PM RF: 0 colchicine 0.6 mg Tablet 0.6 mg PO QAM RF: 0 magnesium oxide 250 mg magnesium Tablet 250 mg PO QAM RF: 0 metoprolol tartrate 25 mg Tablet 25 mg PO AMPM RF: 0 duloxetine 60 mg Capsule,Delayed Release(Dr/Ec) 60 mg PO QAM RF: 0 pregabalin [Lyrica] 50 mg Capsule 50 mg PO PC RF: 0 acetaminophen [Tylenol] 325 mg Capsule 650 mg PO Q4 PRN (Reason: Fever Or Pain) RF: 0 melatonin 10 mg Tablet 10 mg PO HS RF: 0 [id number] [Glucosamine Chondroitin PLUS] 497-137-92-54 mg Capsule 1 tab PO PC RF: 0 fentanyl 50 mcg/hr Patch 72 Hour 1 patch TRANSDERMAL Q72H Qty: 0 RF: 0 Discontinued furosemide [Lasix] 40 mg Tablet 40 mg PO AMPM RF: 0 metolazone 2.5 mg Tablet 2.5 mg PO 2XWK RF: 0 warfarin [Coumadin] 3 mg Tablet 3 mg PO 3XWK RF: 0 warfarin [Coumadin] 3 mg Tablet 1.5 mg PO 4XWK RF: 0 potassium chloride 20 mEq Tablet Extended Release 40 meq PO AMPM RF: 0 Stand-Alone Forms: [facility] Discharge Orders: Discharge Order (Routine); Ordered 11/21/18 Ordered By: Opal العراقي Skilled Items Patient informed of condition?: Yes DNR: No Discharge Level of Care: Skilled Communicable Disease: Yes (influenza-completed 5 days Tamiflu, community- acquired pneumonia) Discharge Prognosis: Stable Admission Data Admit Date/Time: 11/15/18 17:09 Attending Provider: Opal العراقي Admit Provider: Yee Varela Primary Care Provider: Viry Lemus Service: Telemetry Other Interventions: Discharge Summary Assessment (RN) Last Done: 11/21/18 16:27 DC Date/Time DO NOT enter until pt leaves facility: 11/21/18 17:29
--- NOTE | 2018-11-22 13:13 | Coding Query ---
CODING QUERY To promote full compliance with coding requirements relating to patient care, provider participation is requested in all cases of court advocate uncertainty. Please assist us with the question(s) below: Coding Question(s): 1. There is documentation on the H&P of CXR showed possible small airspace opacity within the right midlung zone and documents possible hospital acquired pneumonia and a MRSA swab is ordered, then the 11/18 Progress Note documents Nasal MRSA swab positive, no infiltrates on chest x-ray, may or may not have MRSA respiratory tract infection, but at risk due to influenza and will continue doxycline, and the Discharge Summary documentsdoxy to cover possible MRSA related respiratory illness. Please clarify below, in your clinical opinion , regarding the Possible MRSA related respiratory illness. ( ) Possible MRSA Pneumonia ( ) Possible MRSA Respiratory Illness, Other: Please Specify (x ) Possible MRSA Respiratory Illness, Unspecified 2. The ER H&P and H&P document Respiratory Failure and there is no further documentation of Respiratory Failure. Please clarify below, in your clinical opinion. ( ) There was Acute Respiratory Failure treated (x ) There was Chronic Respiratory Failure treated ( ) There was Acute on Chronic Respiratory Failure treated ( ) The Respiratory Failure has been ruled-out Thank you Barb Ken Principal Diagnosis: "�that condition established after study, to be chiefly responsible for occasioning the admission of the patient to the hospital for care." Co-Existing Principal Diagnosis: "�when two or more diagnoses equally meet the criteria for principal diagnosis as determined by the circumstances of admission , diagnostic work up, and/or therapy provided, and the Alphabetic Index, Tabular List, or another coding guideline does not provide sequencing direction , any one of the diagnoses may be sequenced first." "When the physician has documented what appears to be a current diagnosis in the body of the record, but has not included the diagnosis in the final diagnostic statement, the physician should be asked whether the diagnosis should be added." ([facility] 2 QTR90. p3-4) NIKOLE
== END 2018-11-21 17:29 ==
LOC: ED 14:02 → 2W 17:09 → SUATTDRO 17:09 → 2W 18:02

== ENCOUNTER 2018-12-27 14:52 | Inpatient (IN) ==
[2018-12-27] MEDS ORDERED: ALBUT/IPRATROP 3MG/0.5MG NEB 3 ML VIAL INH STA (15:56)
--- NOTE | 2018-12-27 16:18 | XRay Report ---
XR chest 1V portable CLINICAL HISTORY: Dyspnea COMPARISON STUDY: Chest radiograph November 26, 2018. 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 The patie nt is rotated. There are old right rib fractures. No pneumothorax or pleural effusion is noted. There is stable cardiomegaly without evidence for pulmonary edema. There is no consolidation. Linear bibas ilar opacities favor atelectasis. IMPRESSION: 1. No acute cardiopulmonary findings. 2. Linear bibasilar opacities which favor atelectasis. Electronically signed by: Refugio Del Cid M.D. 12/27/2018 4:17 PM
[2018-12-27 16:25] LABS: Basophils # (auto) 0.02 K/uL (0-0.2); Basophils % (auto) 0.1 %; Eosinophils % (auto) 0.7 %; Hematocrit (blood only) 41.1 % (37-47); Hemoglobin 13.9 g/dL (12.0-16.0); Immature Granulocytes # (auto) 0.18 K/uL (0.00-0.02); Immature Granulocytes % (auto) 1.2 %; Lymphocytes # (auto) 2.79 K/uL (1.2-3.4); Lymphocytes % (auto) 18.4 %; Mean Corpuscular Hgb Conc 33.8 g/dL (32-36); Mean Corpuscular Volume 100.5 fL (80-100); Mean Platelet Volume 11.3 fL (7.4-10.4); Monocytes # (auto) 1.09 K/uL (0.11-0.59); Monocytes % (auto) 7.2 %; Neutrophils # (auto) 10.95 K/uL (1.4-6.5); Neutrophils % (auto) 72.4 %; Platelet Count 251 K/uL (130-400); RDW Coefficient of Variation 15.9 % (11.5-14.5); Red Blood Count 4.09 M/uL (4.2-5.4); White Blood Count 15.13 K/uL (4.8-10.8)
[2018-12-27 16:48] LABS: Partial Thromboplastin Ratio 1.4; Partial Thromboplastin Time 38.4 Seconds (21.0-31.0); Prothrombin Time 19.7 Seconds (9.0-12.0)
[2018-12-27 16:58] LABS: HCO3 ABG 30 mmol/L (19-24); Oxygen Saturation ABG 95.4 % (90-95); PCO2 ABG 47 mmHg (35-46); PO2 ABG 76 mm/Hg (80-95); pH ABG 7.43 (7.35-7.45)
[2018-12-27 16:59] LABS: Albumin Globulin Ratio 0.6 (0.9-2); Albumin Level 2.6 gm/dl (3.4-5.0); BUN Creatinine Ratio 31.7 (10-20); Bilirubin,Total 0.4 mg/dl (0.2-1); Calcium 9.4 mg/dl (8.5-10.1); Est GFR (African American) 34.9; Est GFR (Non-African American) 30.1; Globulin 4.1 gm/dl (2.5-4.0); Total Protein 6.7 gm/dl (6.4-8.2)
[2018-12-27 17:03] LABS: Allen Test Pos (Pos)
--- NOTE | 2018-12-27 18:52 | CT Scan Report ---
CT head/brain wo con CLINICAL HISTORY: 78 years-old Female with ams. Acutely altered mental status TECHNIQUE: Multiple axial CT images of the head were obtained without contrast. A dose lowering tech nique was utilized adhering to the principles of ALARA. CT DOSE: 537.48 mGy.cm COMPARISON: CT head 08/02/2015. FINDINGS: No acute intracranial hemorrhage, midline shift, intracranial mass, hydrocephalus, territorial ischem ia or abnormal extra-axial collection. Age-related involutional changes with mild to moderate white m atter hypodensities suggestive of chronic microvascular ischemic changes. Cerebral vascular calcifica tions noted. The calvarium is intact. The paranasal sinuses, mastoid air cells, and middle ear cavities are clear . IMPRESSION: No acute intracranial abnormality. The above report was generated using voice recognition software. It may contain grammatical, syntax o r spelling errors. Electronically signed by: Roberto Potts M.D. 12/27/2018 6:50 PM
--- NOTE | 2018-12-27 20:20 | History & Physical Report ---
Date of Service December 27, 2018 Assessment & Plan (1) Altered mental status: Presented to ER for altered mental status. Reported patient with increased confusion and was eating a tissue today. Patient states has been feeling off balance and tremors for the past week. In ER T: 37.1C, P: 104, R: 17, BP: 116/91, 93% on 4L NC. WBC: 15, Hgb: 13. POC lactic acid: 0.9. negative troponin. CT HEAD: No acute intracranial abnormality. CXR: No acute cardiopulmonary findings. Linear bibasilar opacities which favor atelectasis. Probable metabolic encephalopathy. Possible UTI. hypoglycemia, hypoxia. -pending UA and urine culture -Rocephin -monitor -monitor CBC, BMP (2) Possible urinary tract infection: Patient reports has been having dysuria for the past week. Hx proteus UTI 11/15/18 which was resistent to cipro and levaquin. Was discharged keflex -pending UA and urine culture -pending blood cultures -Rocpehin (3) Bronchitis: (4) Hypoxia: Pt with hx asthma, obesity hypoventilation syndrome. States feels like he has had cough for the past month since her previous hospitalization. States intermittent SOB and has been using oxygen [facility] jail. H/O hospitalization 11/15/18-11/21/18 for flu, cough, hypoxia was treated with vancomycin cefepime and prednisone and was transitioned to doxycycline. CXR: No acute cardiopulmonary findings. Linear bibasilar opacities which favor atelectasis. -pending blood cultures -Rocephin -xopenex/atrovent nebs -supplemental oxygen -incentive spirometery (5) DM type 2 (diabetes mellitus, type 2): (6) Hypoglycemia: Hx DM II. A1c6.2 on 11/18. Pt on lantus and novolog at [facility]. Reports just had toast early in morning In ER pt with glucose 52 up to 91 -monitor BSGs -novolog lantus sliding scale (7) ROSEY (acute kidney injury): ROSEY on CKD III Cr: 1.6. Baseline ~1.3 Pt appears dry currently -IVF -monitor renal functions -avoid nephrotoxic agents when possible (8) Atrial fibrillation: Chronic a-fib. On coumadin P: 104 down to 95. INR: 2.0 -IVF -continue coumadin, metoprolol -monitor INR (9) Diastolic CHF: Chronic diastolic HF 08/2018 echo: EF: 55% -hold lasix, spironolactone, metolazone and re-evaluate tomorrow (10) Asthma: -continue advair, spiriva, singulair -xopenex/atrovent nebs prn (11) Hypertension: -continue metoprolol (12) Hypothyroidism: -continue levothyroxine (13) Chronic pain: -continue fentanyl patch, lyrica, - tramadol prn, holding if worsening confusion, - tylenol prn (14) GERD (gastroesophageal reflux disease): -continue PPI, H2 gabriela, carafate (15) Hyperuricemia: -continue allopurinol. hold colchicine (16) Anxiety: -continue buspirone, duloxetine -hold ativan and trazodone and monitor for any worsening/improvement of con fusion DVT Prophylaxis -on coumadin and INR: 2.0 Full code but no mechanical ventilation as per discussion with pt, as is same as prior admission Follows with Dr Lemus for routine care Pt was seen with Dr Villeda. See addendum History of Present Illness Chief Complaint: confusion Primary Care Provider: Viry Lemus Pt is 78 y/o F with PMH Atrial fibrillation on Coumadin, obesity hypoventilation syndrome, asthma, chronic diastolic heart failure, HTN, anxiety, CKD 3 presented to ER for altered mental status. Reported patient With increased confusion and was eating a tissue today. Patient states has been feeling off balance and tremors for the past week. Patient reports has been having dysuria for the past week. States feels like he has had cough for the past month since her previous hospitalization. States intermittent SOB. Reports has been using oxygen And [facility]bulizer treatments [facility]. Pt unsure if has had fever/chills. She thinks has had poor appetite. Pt denies N/V/D/C, KUMARI, dizziness, syncope, vision changes, neck pain, CP, hemoptysis, sore throat, choking, otalgia, rhinorrhea, abdominal pain, paresthesias, extremity edema, rashes, urinary frequency, hematuria. Patient with history of hospitalization 11/15/18-11/21/18 for flu, cough, hypoxia was treated with vancomycin cefepime and prednisone and was transitioned to doxycycline. Was found to have Proteus UTI and treated with Keflex. History of hospitalization 11/01/18-11/06/18 for leg hematoma and cellulitis and was discharged on doxycycline Allergies Allergy/AdvReac Type Severity Reaction Status Date / Time meperidine [From Demerol] Allergy Unknown ON WINDY Verified 12/27/18 16:58 HILL LIST morphine AdvReac Intermediate vomiting Verified 12/27/18 16:58 oxycodone AdvReac Intermediate vomit blood Verified 12/27/18 16:58 propoxyphene AdvReac Intermediate abd vomit Verified 12/27/18 16:58 blood tramadol AdvReac Intermediate vomiting Verified 12/27/18 16:58 Bactrim AdvReac Mild GI SYMPTOMS Verified 03/06/18 21:06 codeine AdvReac Mild vomiting Verified 12/27/18 16:58 olmesartan AdvReac Mild GI SYMPTOMS Verified 12/27/18 16:58 Sulfa (Sulfonamide AdvReac Mild GI SYMPTOMS Verified 12/27/18 16:58 Antibiotics) sulfamethoxazole AdvReac Mild GI SYMPTOMS Verified 12/27/18 16:58 trimethoprim AdvReac Mild GI SYMPTOMS Verified 12/27/18 16:58 carisoprodol AdvReac Unknown GI SYMPTOMS Verified 12/27/18 16:58 Home Medications Home Medications Medication Instructions Recorded Confirmed Type Desenex 1 applic TOPICAL BID 11/01/18 12/27/18 History Fleet Enema 118 ml RI DAILY PRN 11/01/18 12/27/18 History Glucosamine Chondroitin PLUS 1 tab PO PC 11/01/18 12/27/18 History Lyrica 50 mg PO PC 11/01/18 12/27/18 History Refresh Tears 1 drp OPB BID 11/01/18 12/27/18 History acetaminophen 650 mg RI Q6H PRN 11/01/18 12/27/18 History acetaminophen [Tylenol] 650 mg PO Q4 PRN 11/01/18 12/27/18 History allopurinol 200 mg PO QAM 11/01/18 12/27/18 History bisacodyl [Dulcolax (bisacodyl)] 10 mg RI DAILY PRN 11/01/18 12/27/18 History buspirone 15 mg PO AMHS 11/01/18 12/27/18 History colchicine 0.6 mg PO QAM 11/01/18 12/27/18 History diltiazem HCl [Cardizem CD] 240 mg PO QAM 11/01/18 12/27/18 History docusate sodium [Colace] 100 mg PO AMHS 11/01/18 12/27/18 History duloxetine 60 mg PO QAM 11/01/18 12/27/18 History ferrous sulfate 325 mg PO AMHS 11/01/18 12/27/18 History fluticasone propion-salmeterol 1 inh INHALATION AMHS 11/01/18 12/27/18 History [Advair Diskus] ipratropium-albuterol 3 ml INHALATION QID 11/01/18 12/27/18 History levothyroxine 75 mcg PO DAILYBB 11/01/18 12/27/18 History lorazepam 0.5 mg PO TID PRN 11/01/18 12/27/18 History magnesium hydroxide [Milk of 30 ml PO DAILY PRN 11/01/18 12/27/18 History Magnesia] magnesium oxide 250 mg PO QAM 11/01/18 12/27/18 History meclizine 25 mg PO TID PRN 11/01/18 12/27/18 History melatonin 10 mg PO HS 11/01/18 12/27/18 History metoprolol tartrate 25 mg PO AMPM 11/01/18 12/27/18 History montelukast 10 mg PO PM 11/01/18 12/27/18 History ondansetron HCl [Zofran] 8 mg PO Q8 PRN 11/01/18 12/27/18 History pantoprazole 20 mg PO DAILYBB 11/01/18 12/27/18 History polyethylene glycol 3350 [Miralax] 17 g PO Q OTHER DAY 11/01/18 12/27/18 History sennosides [Senna-Gen] 8.6 mg PO AMHS 11/01/18 12/27/18 History spironolactone 25 mg PO QAM 11/01/18 12/27/18 History sucralfate 1 g PO AMPM 11/01/18 12/27/18 History tramadol 50 mg PO TID 11/01/18 12/27/18 History trazodone 50 mg PO HS 11/01/18 12/27/18 History fentanyl 1 patch TRANSDERMAL Q72H #0 ea 11/06/18 12/27/18 Rx potassium chloride 20 meq PO BID #60 tab 11/21/18 12/27/18 Rx foam bandage [Allevyn] 12/27/18 12/27/18 History furosemide [Lasix] 40 mg PO QAM 12/27/18 12/27/18 History insulin aspart U-100 [Novolog 10 unit SUBCUT AC 12/27/18 12/27/18 History U-100 Insulin aspart] insulin glargine [Lantus U-100 20 unit SUBCUT HS 12/27/18 12/27/18 History Insulin] metolazone 2.5 mg PO 2XWK 12/27/18 12/27/18 History ranitidine HCl [Zantac] 150 mg PO BID 12/27/18 12/27/18 History simethicone [Gas Relief] 180 mg PO PC 12/27/18 12/27/18 History tiotropium bromide [Spiriva 2 puff INHALATION DAILY 12/27/18 12/27/18 History Respimat] warfarin [Coumadin] 3 mg PO UD 12/27/18 12/27/18 History Past Med/Surg History Medical History Anxiety (Chronic) Hyperuricemia (Chronic) CKD (chronic kidney disease), stage III (Chronic) GERD (gastroesophageal reflux disease) (Chronic) DJD (degenerative joint disease), multiple sites (Chronic) Arthritis (Chronic) Asthma (Chronic) Atrial fibrillation (Chronic) Diastolic CHF (Chronic) On 02/12/16 22:20 Ellie Bains wrote "per echo 09/30/15- EF 60-65%, mod LVH, mod MR, mod TR, dilated RV" DM type 2 (diabetes mellitus, type 2) (Chronic) Hypertension (Chronic) Hypothyroidism (Chronic) Chronic pain (Chronic) Stenosis of right carotid artery (Chronic) History of pulmonary embolism (Chronic) Chronic gastritis (Chronic) Chronic back pain (Chronic) Generalized anxiety disorder (Chronic) Obesity (BMI 30-39.9) (Chronic) DM2 (diabetes mellitus, type 2) (Chronic) HTN (hypertension) (Chronic) Surgical History History of hernia repair (Resolved) History of cholecystectomy (Chronic) Status post cholecystectomy (Chronic) "Dr. Beavers [facility] 12/27/17" Family History Other Diabetes Hypertension Social History Preferred Language: Japanese Communication Ability: Effective Wastewater Operator Required: No Beliefs That Will Affect Care: None marital status: / Current Living Situation: [facility] Other Information That Helps Us Care for You: No Feels Safe at Home: Yes Safety Concerns: Feels Safe At This Time Smoking Status: Never smoker Hx Alcohol Use: No Hx Substance Use: No Review of Systems All systems reviewed & are unremarkable except as noted in HPI & below Physical Exam Vital Signs (Past 24 Hours): Last Vital Signs Temp 37.1 C 12/27/18 14:50 Pulse 107 H 12/27/18 20:00 Resp 20 12/27/18 20:00 BP 117/94 12/27/18 20:00 Pulse Ox 92 12/27/18 20:00 Physical Exam: General: chronic ill appearing elderly female, obese Head: normocephalic, atraumatic Eyes: PERRL, EOM's intact, conjunctiva non-injected, anicteric ENT: normal inspection external ears, nose, mucous membranes dry Neck: supple, trachea midline Lungs: on 4L O2 via NC with sat 95%, R: 20 without retractions, +rhonchi with faint wheezing throughout CV: irregularly irregular, R: 102, trace pretibial edema Abd: normal BS, soft, non-tender Ext: no cyanosis, no calf tenderness Neuro: A&O to person, place, no focal deficits noted, normal affect Skin: warm, dry Results & Data Laboratory Results Short CBC 12/27/18 Range/Units 16:10 WBC 15.13 H (4.8-10.8) K/uL Hgb 13.9 (12.0-16.0) g/dL Hct 41.1 (37-47) % Plt Count 251 (130-400) K/uL BMP 12/27/18 16:10 Sodium 138 Potassium 4.0 Chloride 101 Carbon Dioxide 33 H BUN 52 H Creatinine 1.63 H Glucose 52 L* Calcium 9.4 Liver Function 12/27/18 Range/Units 16:10 Total Bilirubin 0.4 (0.2-1) mg/dl AST 12 L (15-37) U/L ALT 17 (12-78) U/L Alkaline Phosphatase 89 (45-117) U/L Albumin 2.6 L (3.4-5.0) gm/dl Urine 12/27/18 Range/Units 19:55 Urine Color Yellow Urine Appearance Clear (Clear) Urine pH 7.0 (4.5-7.5) Ur Specific [place] 1.012 (1.000-1.030) Urine Protein Negative (Negative) Urine Glucose (UA) Negative (Negative) Diagnostic Findings CT HEAD: IMPRESSION: No acute intracranial abnormality. CXR: IMPRESSION: 1. No acute cardiopulmonary findings. 2. Linear bibasilar opacities which favor atelectasis. ECG Rate (beats per minute): 116 Rhythm: atrial fibrillation Supervising Physician Co-Signing Physician Notes I saw this patient with the physician preschool teacher's assistant, I participated in the history, physical, review of systems, and physical exam. I reviewed the medications with the patient and the physician preschool teacher's assistant and helped reconcile the medications. I helped take a detailed family and social history as well. I formulated the assessment and plan personally with the physician preschool teacher's assistant and went over it with the patient. ROS-No Headache, No Visual Changes, No Nausea, No Vomiting, No Fever, No Chills, No Neck Pain or Stiffness, No Chest Pain, No Palpitations, No SOB, No BARBOUR, No Cough, No Sputum, No Wheezing, No Abdominal Pain, No Diarrhea, No Hematemesis, No Hemoptysis, No Unexpected Weight Loss, No Flank pain, No Melena, No Hematochezia, No Frequency, No Urgency, No Burning, No Hematuria, No Rashes, No Diaphoresis. Appetite is Normal, Confused and weak Physical Exam Gen-AAO x 2, NAD, Afebrile, Obese Head-NCAT, EOMI, PERRLA, Anicteric Sclera, No Posterior Pharyngeal Erythema Neck-Supple, No JVD, No Thyromegaly, No Masses, No LAD, No Bruits Lungs-No Rales, + Rhonchi, + Wheezing, No Crepitus Chest-No S4, +S1, +S2, No S3, No Murmurs, No Rubs, No Gallops, No Ectopy Abdomen-Soft, Bowel Sounds Present, Non Tender, Non Distended, No Hepatomegaly, No Splenomegaly, No Palpable Masses, No Rebound, No Rigidity, No Guarding Musculoskeletal-Full Range of Motion Bilaterally, No CVAT Extremities-No Cyanosis, No Clubbing, No Edema Nuero-Cranial Nerves II-XII grossly intact, Motor WNL, DTRs WNL, Strength WNL, Non Focal Psych-Normal Mood (1) Altered mental status Altered mental status type: unspecified Qualified Code(s): R41.82 - Altered mental status, unspecified
[2018-12-27 20:31] LABS: Appearance Urine Clear (Clear); Bacteria Urine Automated 2+ (Negative); Bilirubin Urine Negative (Negative); Blood Urine Negative (Negative); Color Urine Yellow; Glucose Urine UA Negative (Negative); Ketones Urine Negative (Negative); Leukocyte Esterase Urine Trace (Negative); Nitrite Urine Negative (Negative); Protein Urine Negative (Negative); RBC Urine Automated 0-4 /hpf (0-4); Specific Gravity Urine 1.012 (1.000-1.030); Urobilinogen Urine Negative (Negative)
--- NOTE | 2018-12-27 21:16 | Emergency Department Note ---
Entered by Megha Mccain acting as a scribe for History of Present Illness General Chief complaint: Confusion Stated complaint: confusion/ windy hill Source: patient Limitations: no limitations History of Present Illness Onset (ago): day(s) (a few) Location: chest Pain Consistency: + other (worsening) Current Pain Intensity: 0 Quality: + other (cough) Relieved By: + none Exacerbated By: + none Associated symptoms: + shortness of breath (now relieved); no chest pain, no fever/chills and no headaches The patient is a 78 year old female who presents to the Emergency Room with complaints of a worsening productive cough for the past few days. 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 The patient denies any pain and modifying factors. She denies any fever, chest pain, and headache. The patient reports that she wears 2L of oxygen at home on a as needed basis. Nurse reports that she had a low-grade temperature. Home Medications Home Medications Medication Instructions Recorded Confirmed Type Desenex 1 applic TOPICAL BID 11/01/18 12/27/18 History Fleet Enema 118 ml GA DAILY PRN 11/01/18 12/27/18 History Glucosamine Chondroitin PLUS 1 tab PO PC 11/01/18 12/27/18 History Lyrica 50 mg PO PC 11/01/18 12/27/18 History Refresh Tears 1 drp OPB BID 11/01/18 12/27/18 History acetaminophen 650 mg GA Q6H PRN 11/01/18 12/27/18 History acetaminophen [Tylenol] 650 mg PO Q4 PRN 11/01/18 12/27/18 History allopurinol 200 mg PO M 11/01/18 12/27/18 History bisacodyl [Dulcolax (bisacodyl)] 10 mg GA DAILY PRN 11/01/18 12/27/18 History buspirone 15 mg PO [facility] 11/01/18 12/27/18 History colchicine 0.6 mg PO QAM 11/01/18 12/27/18 History diltiazem HCl [Cardizem CD] 240 mg PO QAM 11/01/18 12/27/18 History docusate sodium [Colace] 100 mg PO [facility] 11/01/18 12/27/18 History duloxetine 60 mg PO QAM 11/01/18 12/27/18 History ferrous sulfate 325 mg PO [facility] 11/01/18 12/27/18 History fluticasone propion-salmeterol 1 inh INHALATION AM[facility] 11/01/18 12/27/18 History [Advair Diskus] ipratropium-albuterol 3 ml INHALATION QID 11/01/18 12/27/18 History levothyroxine 75 mcg PO DAILYBB 11/01/18 12/27/18 History lorazepam 0.5 mg PO TID PRN 11/01/18 12/27/18 History magnesium hydroxide [Milk of 30 ml PO DAILY PRN 11/01/18 12/27/18 History Magnesia] magnesium oxide 250 mg PO QAM 11/01/18 12/27/18 History meclizine 25 mg PO TID PRN 11/01/18 12/27/18 History melatonin 10 mg PO HS 11/01/18 12/27/18 History metoprolol tartrate 25 mg PO AMPM 11/01/18 12/27/18 History montelukast 10 mg PO PM 11/01/18 12/27/18 History ondansetron HCl [Zofran] 8 mg PO Q8 PRN 11/01/18 12/27/18 History pantoprazole 20 mg PO DAILYBB 11/01/18 12/27/18 History polyethylene glycol 3350 [Miralax] 17 g PO Q OTHER DAY 11/01/18 12/27/18 History sennosides [Senna-Gen] 8.6 mg PO [facility] 11/01/18 12/27/18 History spironolactone 25 mg PO QAM 11/01/18 12/27/18 History sucralfate 1 g PO AMPM 11/01/18 12/27/18 History tramadol 50 mg PO TID 11/01/18 12/27/18 History trazodone 50 mg PO HS 11/01/18 12/27/18 History fentanyl 1 patch TRANSDERMAL Q72H #0 ea 11/06/18 12/27/18 Rx potassium chloride 20 meq PO BID #60 tab 11/21/18 12/27/18 Rx foam bandage [Allevyn] 12/27/18 12/27/18 History furosemide [Lasix] 40 mg PO QAM 12/27/18 12/27/18 History insulin aspart U-100 [Novolog 10 unit SUBCUT AC 12/27/18 12/27/18 History U-100 Insulin aspart] insulin glargine [Lantus U-100 20 unit SUBCUT HS 12/27/18 12/27/18 History Insulin] metolazone 2.5 mg PO 2XWK 12/27/18 12/27/18 History ranitidine HCl [Zantac] 150 mg PO BID 12/27/18 12/27/18 History simethicone [Gas Relief] 180 mg PO PC 12/27/18 12/27/18 History tiotropium bromide [Spiriva 2 puff INHALATION DAILY 12/27/18 12/27/18 History Respimat] warfarin [Coumadin] 3 mg PO UD 12/27/18 12/27/18 History Allergies Allergy/AdvReac Type Severity Reaction Status Date / Time meperidine [From Demerol] Allergy Unknown ON [place]Y Verified 12/27/18 16:58 H[place] LIST morphine AdvReac Intermediate vomiting Verified 12/27/18 16:58 oxycodone AdvReac Intermediate vomit blood Verified 12/27/18 16:58 propoxyphene AdvReac Intermediate abd vomit Verified 12/27/18 16:58 blood tramadol AdvReac Intermediate vomiting Verified 12/27/18 16:58 Bactrim AdvReac Mild GI SYMPTOMS Verified 03/06/18 21:06 codeine AdvReac Mild vomiting Verified 12/27/18 16:58 olmesartan AdvReac Mild GI SYMPTOMS Verified 12/27/18 16:58 Sulfa (Sulfonamide AdvReac Mild GI SYMPTOMS Verified 12/27/18 16:58 Antibiotics) sulfamethoxazole AdvReac Mild GI SYMPTOMS Verified 12/27/18 16:58 trimethoprim AdvReac Mild GI SYMPTOMS Verified 12/27/18 16:58 carisoprodol AdvReac Unknown GI SYMPTOMS Verified 12/27/18 16:58 Past Med/Surg History Medical History CKD (chronic kidney disease), stage III (Chronic) GERD (gastroesophageal reflux disease) (Chronic) DJD (degenerative joint disease), multiple sites (Chronic) Arthritis (Chronic) Asthma (Chronic) Atrial fibrillation (Chronic) Diastolic CHF (Chronic) On 02/12/16 22:20 Ellie Bains wrote "per echo 09/30/15- EF 60-65%, mod LVH, mod MR, mod TR, dilated RV" DM type 2 (diabetes mellitus, type 2) (Chronic) Hypertension (Chronic) Hypothyroidism (Chronic) Chronic pain (Chronic) Stenosis of right carotid artery (Chronic) History of pulmonary embolism (Chronic) Chronic gastritis (Chronic) Chronic back pain (Chronic) Generalized anxiety disorder (Chronic) Obesity (BMI 30-39.9) (Chronic) DM2 (diabetes mellitus, type 2) (Chronic) HTN (hypertension) (Chronic) Surgical History History of hernia repair (Resolved) History of cholecystectomy (Resolved) Family History Other Diabetes Hypertension Social History Preferred Language: Azeri Beliefs That Will Affect Care: None marital status: / Current Living Situation: Alf Feels Safe at Home: Yes Smoking Status: Never smoker Hx Alcohol Use: No Hx Substance Use: No Review of Systems See HPI for pertinent positives & negatives. and A total of 10 systems reviewed and were otherwise negative Physical Exam Vital Signs Vital Signs - 24 hr 12/27/18 14:50 12/27/18 15:53 12/27/18 16:36 Temperature 37.1 C Temperature Source Oral Sepsis Recent Fever Within 48 Hours No Sepsis New/Unexplained Change in Mental Status Yes Sepsis Action Taken by Nursing No Action Required Pulse Rate 104 H Pulse Rate [Left Finger] Pulse Rhythm [Left Finger] Pulse Strength [Left Finger] Respiratory Rate 17 Respiratory Effort / Characteristics Non-Labored Respiratory Depth Normal Respiratory Pattern Regular Blood Pressure 116/91 Blood Pressure [Right Arm] Blood Pressure Mean 99 Blood Pressure Mean [Right Arm] Pulse Oximetry 93 93 97 Oxygen Delivery Method Nasal Cannula Nasal Cannula Nasal Cannula Oxygen Flow Rate 4 4 4 12/27/18 17:48 12/27/18 20:00 Temperature Temperature Source Sepsis Recent Fever Within 48 Hours Sepsis New/Unexplained Change in Mental Status Sepsis Action Taken by Nursing Pulse Rate Pulse Rate [Left Finger] 107 H 107 H Pulse Rhythm [Left Finger] Irregular Pulse Strength [Left Finger] Normal Respiratory Rate 14 20 Respiratory Effort / Characteristics Non-Labored Non-Labored Spontaneous Respiratory Depth Normal Normal Respiratory Pattern Regular Regular Blood Pressure Blood Pressure [Right Arm] 101/63 117/94 Blood Pressure Mean Blood Pressure Mean [Right Arm] 75 101 Pulse Oximetry 95 92 Oxygen Delivery Method Nasal Cannula Nasal Cannula Oxygen Flow Rate 4 4 Constitutional: Vital signs reviewed. Eyes: Pupils are equal round reactive to light. Conjunctiva are noninjected. ENT: Pharynx is clear without erythema or exudate. Mucous membranes are moist. Neck supple without meningeal signs. Respiratory: Bilateral wheezing. Breath sounds are equal bilaterally. Cardiovascular: Tachycardic rate and irregularly irregular rhythm. No rubs or gallops. GI: Soft, nondistended and nontender. Bowel sounds are present. Musculoskeletal: No peripheral edema. Left calf tenderness. Integumentary: No cyanosis. Neurological: The patient is awake and alert. No focal deficits. Psychiatric: Normal affect. Course 1552: Past medical records reviewed. The patient was evaluated in room C06, and a complete history and physical examination were performed. 1711: I spoke to the patient and her sister, and said the patient was confused for the past few weeks. The sister said the patient is not diabetic. The patient states that she had toast this morning. 1908: I spoke with Dr. Villeda, [facility] hospitalist, about the patient's case. He will evaluate the patient further. Consultations Consultation #1: I spoke with Dr. Villeda, [facility] Hospitalist, about the patient's case. He will evaluate the patient further. Time: 19:09 Administered Medications Discontinued Medications Albuterol (Duoneb) 3 ml INH NOW STA Stop: 12/27/18 15:57 Last Admin: 12/27/18 17:47 Dose: 3 ml Documented by: [id number] Medical Decision Making Differential Diagnosis The differential diagnosis includes: pneumonia, bronchitis, sepsis, hypoxemia, and PE. Medical Records Attestation: I reviewed the patient's medical records. The patient was admitted in November of 2018 for influenza-A. She had a UTI and acute kidney injury. Home Medications Current Medication List: was personally reviewed by me Laboratory Data Attestation: I reviewed the patient's lab results. Result diagrams: 12/27/18 16:10 12/27/18 16:10 Lab Results 12/27/18 12/27/18 12/27/18 Range/Units 16:10 16:10 16:10 WBC 15.13 H (4.8-10.8) K/uL RBC 4.09 L (4.2-5.4) M/uL Hgb 13.9 (12.0-16.0) g/dL Hct 41.1 (37-47) % MCV 100.5 H (80-100) fL MCH 34.0 (25-34) pg MCHC 33.8 (32-36) g/dL RDW Std Deviation 58.0 H (36.4-46.3) fL RDW Coeff of Kenneth 15.9 H (11.5-14.5) % Plt Count 251 (130-400) K/uL MPV 11.3 H (7.4-10.4) fL Immature Gran % (Auto) 1.2 % Neut % (Auto) 72.4 % Lymph % (Auto) 18.4 % Walker % (Auto) 7.2 % Eos % (Auto) 0.7 % Baso % (Auto) 0.1 % Immature Gran # (Auto) 0.18 H (0.00-0.02) K/uL Neut # (Auto) 10.95 H (1.4-6.5) K/uL Lymph # (Auto) 2.79 (1.2-3.4) K/uL Walker # (Auto) 1.09 H (0.11-0.59) K/uL Eos # (Auto) 0.10 (0-0.5) K/uL Baso # (Auto) 0.02 (0-0.2) K/uL PT 19.7 H (9.0-12.0) Seconds INR 2.0 H (0.9-1.1) APTT 38.4 H (21.0-31.0) Seconds PTT Ratio 1.4 ABG pH (7.35-7.45) ABG pCO2 (35-46) mmHg ABG pO2 (80-95) mm/Hg ABG HCO3 (19-24) mmol/L ABG O2 Saturation (90-95) % ABG Base Excess (-9-1.8) mEq/L Kalen Test (Pos) Barometric Pressure mm/Hg Oxygen Given Sodium 138 (136-145) mmol/L Potassium 4.0 (3.5-5.1) mmol/L Chloride 101 (98-107) mmol/L Carbon Dioxide 33 H (21-32) mmol/L Anion Gap 4.0 (3-11) BUN 52 H (7-18) mg/dl Creatinine 1.63 H (0.6-1.2) mg/dl Est Cr Clr Drug Dosing 38.0 ml/min Est GFR ( Amer) 34.9 Est GFR (Non-Af Amer) 30.1 BUN/Creatinine Ratio 31.7 H (10-20) Glucose 52 L* (70-99) mg/dl POC Glucose (70-99) POC Lactic Acid Yunior (0.90-1.70) mmol/L Calcium 9.4 (8.5-10.1) mg/dl Total Bilirubin 0.4 (0.2-1) mg/dl AST 12 L (15-37) U/L ALT 17 (12-78) U/L Alkaline Phosphatase 89 (45-117) U/L POC Troponin I (0-0.045) ng/ml Total Protein 6.7 (6.4-8.2) gm/dl Albumin 2.6 L (3.4-5.0) gm/dl Globulin 4.1 H (2.5-4.0) gm/dl Albumin/Globulin Ratio 0.6 L (0.9-2) Urine Color Urine Appearance (Clear) Urine pH (4.5-7.5) Ur Specific Commerce (1.000-1.030) Urine Protein (Negative) Urine Glucose (UA) (Negative) Urine Ketones (Negative) Urine Blood (Negative) Urine Nitrite (Negative) Urine Bilirubin (Negative) Urine Urobilinogen (Negative) Ur Leukocyte Esterase (Negative) Urine WBC (Auto) (0-5) /hpf Urine RBC (Auto) (0-4) /hpf U Hyaline Cast (Auto) (0-5) /lpf U Epithel Cells (Auto) (0-5) /lpf Urine Bacteria (Auto) (Negative) 12/27/18 12/27/18 12/27/18 Range/Units 16:16 16:17 16:45 WBC (4.8-10.8) K/uL RBC (4.2-5.4) M/uL Hgb (12.0-16.0) g/dL Hct (37-47) % MCV (80-100) fL MCH (25-34) pg MCHC (32-36) g/dL RDW Std Deviation (36.4-46.3) fL RDW Coeff of Kenneth (11.5-14.5) % Plt Count (130-400) K/uL MPV (7.4-10.4) fL Immature Gran % (Auto) % Neut % (Auto) % Lymph % (Auto) % Walker % (Auto) % Eos % (Auto) % Baso % (Auto) % Immature Gran # (Auto) (0.00-0.02) K/uL Neut # (Auto) (1.4-6.5) K/uL Lymph # (Auto) (1.2-3.4) K/uL Walker # (Auto) (0.11-0.59) K/uL Eos # (Auto) (0-0.5) K/uL Baso # (Auto) (0-0.2) K/uL PT (9.0-12.0) Seconds INR (0.9-1.1) APTT (21.0-31.0) Seconds PTT Ratio ABG pH 7.43 (7.35-7.45) ABG pCO2 47 H (35-46) mmHg ABG pO2 76 L (80-95) mm/Hg ABG HCO3 30 H (19-24) mmol/L ABG O2 Saturation 95.4 H (90-95) % ABG Base Excess 5.0 H (-9-1.8) mEq/L Kalen Test Pos (Pos) Barometric Pressure 732.5 mm/Hg Oxygen Given 2.5L Sodium (136-145) mmol/L Potassium (3.5-5.1) mmol/L Chloride (98-107) mmol/L Carbon Dioxide (21-32) mmol/L Anion Gap (3-11) BUN (7-18) mg/dl Creatinine (0.6-1.2) mg/dl Est Cr Clr Drug Dosing ml/min Est GFR ( Amer) Est GFR (Non-Af Amer) BUN/Creatinine Ratio (10-20) Glucose (70-99) mg/dl POC Glucose (70-99) POC Lactic Acid Yunior 0.98 (0.90-1.70) mmol/L Calcium (8.5-10.1) mg/dl Total Bilirubin (0.2-1) mg/dl AST (15-37) U/L ALT (12-78) U/L Alkaline Phosphatase (45-117) U/L POC Troponin I < 0.03 (0-0.045) ng/ml Total Protein (6.4-8.2) gm/dl Albumin (3.4-5.0) gm/dl Globulin (2.5-4.0) gm/dl Albumin/Globulin Ratio (0.9-2) Urine Color Urine Appearance (Clear) Urine pH (4.5-7.5) Ur Specific Commerce (1.000-1.030) Urine Protein (Negative) Urine Glucose (UA) (Negative) Urine Ketones (Negative) Urine Blood (Negative) Urine Nitrite (Negative) Urine Bilirubin (Negative) Urine Urobilinogen (Negative) Ur Leukocyte Esterase (Negative) Urine WBC (Auto) (0-5) /hpf Urine RBC (Auto) (0-4) /hpf U Hyaline Cast (Auto) (0-5) /lpf U Epithel Cells (Auto) (0-5) /lpf Urine Bacteria (Auto) (Negative) 12/27/18 12/27/18 Range/Units 18:17 19:55 WBC (4.8-10.8) K/uL RBC (4.2-5.4) M/uL Hgb (12.0-16.0) g/dL Hct (37-47) % MCV (80-100) fL MCH (25-34) pg MCHC (32-36) g/dL RDW Std Deviation (36.4-46.3) fL RDW Coeff of Kenneth (11.5-14.5) % Plt Count (130-400) K/uL MPV (7.4-10.4) fL Immature Gran % (Auto) % Neut % (Auto) % Lymph % (Auto) % Walker % (Auto) % Eos % (Auto) % Baso % (Auto) % Immature Gran # (Auto) (0.00-0.02) K/uL Neut # (Auto) (1.4-6.5) K/uL Lymph # (Auto) (1.2-3.4) K/uL Walker # (Auto) (0.11-0.59) K/uL Eos # (Auto) (0-0.5) K/uL Baso # (Auto) (0-0.2) K/uL PT (9.0-12.0) Seconds INR (0.9-1.1) APTT (21.0-31.0) Seconds PTT Ratio ABG pH (7.35-7.45) ABG pCO2 (35-46) mmHg ABG pO2 (80-95) mm/Hg ABG HCO3 (19-24) mmol/L ABG O2 Saturation (90-95) % ABG Base Excess (-9-1.8) mEq/L Kalen Test (Pos) Barometric Pressure mm/Hg Oxygen Given Sodium (136-145) mmol/L Potassium (3.5-5.1) mmol/L Chloride (98-107) mmol/L Carbon Dioxide (21-32) mmol/L Anion Gap (3-11) BUN (7-18) mg/dl Creatinine (0.6-1.2) mg/dl Est Cr Clr Drug Dosing ml/min Est GFR ( Amer) Est GFR (Non-Af Amer) BUN/Creatinine Ratio (10-20) Glucose (70-99) mg/dl POC Glucose 91 (70-99) POC Lactic Acid Yunior (0.90-1.70) mmol/L Calcium (8.5-10.1) mg/dl Total Bilirubin (0.2-1) mg/dl AST (15-37) U/L ALT (12-78) U/L Alkaline Phosphatase (45-117) U/L POC Troponin I (0-0.045) ng/ml Total Protein (6.4-8.2) gm/dl Albumin (3.4-5.0) gm/dl Globulin (2.5-4.0) gm/dl Albumin/Globulin Ratio (0.9-2) Urine Color Yellow Urine Appearance Clear (Clear) Urine pH 7.0 (4.5-7.5) Ur Specific Commerce 1.012 (1.000-1.030) Urine Protein Negative (Negative) Urine Glucose (UA) Negative (Negative) Urine Ketones Negative (Negative) Urine Blood Negative (Negative) Urine Nitrite Negative (Negative) Urine Bilirubin Negative (Negative) Urine Urobilinogen Negative (Negative) Ur Leukocyte Esterase Trace H (Negative) Urine WBC (Auto) 5-10 H (0-5) /hpf Urine RBC (Auto) 0-4 (0-4) /hpf U Hyaline Cast (Auto) 1-5 (0-5) /lpf U Epithel Cells (Auto) 5-10 H (0-5) /lpf Urine Bacteria (Auto) 2+ H (Negative) Imaging Data Radiologist's Impression: Radiology results as stated below per my review and the radiologist's interpretation: XR chest 1V portable CLINICAL HISTORY: Dyspnea COMPARISON STUDY: Chest radiograph November 26, 2018. 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 The patient is rotated. There are old right rib fractures. No pneumothorax or pleural effusion is noted. There is stable cardiomegaly without evidence for pulmonary edema. There is no consolidation. Linear bibasilar opacities favor atelectasis. IMPRESSION: 1. No acute cardiopulmonary findings. 2. Linear bibasilar opacities which favor atelectasis. Electronically signed by: Refugio Del Cid M.D. 12/27/2018 4:17 PM ECG Data Attestation: I personally reviewed and interpreted this ECG as follows: Indication: SOB/dyspnea Rate (beats per minute): 116 Rhythm: atrial fibrillation (with RVR) Findings: no PVC and no ST elevation Blood Pressure Blood Pressure Findings: Normal blood pressure MDM Narrative I did evaluate the patient as noted above. I did obtain history from the patient as well as from the nurse. Later I obtain additional history from her daughter who states that she has been confused for the past 3 days. She was admitted previously for bronchitis and had IV antibiotics and was discharged home but she is presenting with similar symptoms today. IV access was established. The patient was placed on a continuous men's custom hair piece consultant. I did order and personally review the patient's 12-lead EKG and chest x-ray as described above. The patient has some tachycardia with atrial fibrillation. She is on Coumadin for her A. fib. Initially she was tachycardic but then later her heart rate improved. Chest x-ray does not show any signs of consolidation. I did order and review the patient's blood work as noted in the electronic medical record. Her white count is elevated. Creatinine is 1.6. Her glucose is 52. She was given apple juice and her glucose came up. She states she only ate toast today. She states she previously was on medications for diabetes but is no longer on medications. Her blood gas shows hypoxemia on supplemental oxygen. I did order a CT of the head. I did review the images myself as well as the radiology report as described above. There is no evidence of acute abnormality. I did discuss the test results with patient and her daughter. I did discuss the case with the hospitalist and mental health case manager. Impression & Plan Hypoxemia, Altered mental status, Hypoglycemia, Bronchitis, Anticoagulated on Coumadin Discharge Plan Visit Data Chief Complaint: Confusion Stated Complaint: confusion/ [facility] Provider: Vikash Feliz Discharge Problem: Hypoxemia, Altered mental status, Hypoglycemia, Bronchitis, Anticoagulated on Coumadin Patient Disposition: Being Evaluated by Hospitalist Forms Stand Alone Forms: My [facility] Prescriptions Prescriptions: No Action sennosides [Senna-Gen] 8.6 mg Tablet 8.6 mg PO AMHS RF: 0 acetaminophen 650 mg Suppository 650 mg GA Q6H PRN (Reason: TEMP >100.4, IF NOT TAKING PO) RF: 0 ipratropium-albuterol 0.5 mg-3 mg(2.5 mg base)/3 mL Solution For Nebulization 3 ml INHALATION QID RF: 0 trazodone 50 mg Tablet 50 mg PO HS RF: 0 polyethylene glycol 3350 [Miralax] 17 gram Powder In Packet 17 g PO Q OTHER DAY RF: 0 ondansetron HCl [Zofran] 8 mg Tablet 8 mg PO Q8 PRN (Reason: Nausea) RF: 0 diltiazem HCl [Cardizem CD] 240 mg Capsule,Extended Release 24hr 240 mg PO QAM RF: 0 sucralfate 1 gram Tablet 1 g PO AMPM RF: 0 Desenex 2 % Powder 1 applic TOPICAL BID RF: 0 allopurinol 100 mg Tablet 200 mg PO QAM RF: 0 tramadol 50 mg Tablet 50 mg PO TID RF: 0 spironolactone 25 mg Tablet 25 mg PO QAM RF: 0 pantoprazole 20 mg Tablet,Delayed Release (Dr/Ec) 20 mg PO DAILYBB RF: 0 levothyroxine 75 mcg Tablet 75 mcg PO DAILYBB RF: 0 lorazepam 0.5 mg Tablet 0.5 mg PO TID PRN (Reason: Anxiety) RF: 0 magnesium hydroxide [Milk of Magnesia] 400 mg/5 mL Suspension 30 ml PO DAILY PRN (Reason: NO BM X 3 DAYS.) RF: 0 Refresh Tears 0.5 % Drops 1 drp OPB BID RF: 0 meclizine 25 mg Tablet 25 mg PO TID PRN (Reason: Dizziness) RF: 0 bisacodyl [Dulcolax (bisacodyl)] 10 mg Suppository 10 mg GA DAILY PRN (Reason: NO RESULTS FROM MOM, DAY 5) RF: 0 buspirone 30 mg Tablet 15 mg PO AMHS RF: 0 ferrous sulfate 325 mg (65 mg iron) Tablet 325 mg PO AMHS RF: 0 fluticasone propion-salmeterol [Advair Diskus] 500-50 mcg/dose Blister With Device 1 inh INHALATION AMHS RF: 0 Fleet Enema 19-7 gram/118 mL Enema 118 ml GA DAILY PRN (Reason: DAY 6 OF NO BM.) RF: 0 docusate sodium [Colace] 100 mg Capsule 100 mg PO AMHS RF: 0 montelukast 10 mg Tablet 10 mg PO PM RF: 0 colchicine 0.6 mg Tablet 0.6 mg PO QAM RF: 0 magnesium oxide 250 mg magnesium Tablet 250 mg PO QAM RF: 0 metoprolol tartrate 25 mg Tablet 25 mg PO AMPM RF: 0 duloxetine 60 mg Capsule,Delayed Release(Dr/Ec) 60 mg PO QAM RF: 0 Lyrica 50 mg Capsule 50 mg PO PC RF: 0 acetaminophen [Tylenol] 325 mg Capsule 650 mg PO Q4 PRN (Reason: Fever Or Pain) RF: 0 melatonin 10 mg Tablet 10 mg PO HS RF: 0 Glucosamine Chondroitin PLUS [id number] mg Capsule 1 tab PO PC RF: 0 fentanyl 50 mcg/hr Patch 72 Hour 1 patch TRANSDERMAL Q72H Qty: 0 RF: 0 potassium chloride 20 mEq tablet extended release 20 meq PO BID Qty: 60 RF: 0 furosemide [Lasix] 40 mg Tablet 40 mg PO QAM RF: 0 metolazone 2.5 mg Tablet 2.5 mg PO 2XWK RF: 0 Lantus U-100 Insulin 100 unit/mL Solution 20 unit SUBCUT HS RF: 0 simethicone [Gas Relief] 180 mg Capsule 180 mg PO PC RF: 0 Novolog U-100 Insulin aspart 100 unit/mL Solution 10 unit SUBCUT AC RF: 0 ranitidine HCl [Zantac] 150 mg Tablet 150 mg PO BID RF: 0 Allevyn 4 X 4 " Bandage RF: 0 warfarin [Coumadin] 3 mg Tablet 3 mg PO UD RF: 0 Spiriva Respimat 1.25 mcg/actuation Mist 2 puff INHALATION DAILY RF: 0 Referrals Referrals: Viry Lemus MD [Primary Care Provider] - Discharge Problem: Altered mental status Qualifiers: Altered mental status type: unspecified Qualified Code(s): R41.82 - Altered mental status, unspecified The scribe's documentation has been prepared under my direction and personally reviewed by me in its entirety. I confirm that the note above accurately reflects all work, treatment, procedures, and medical decision making performed by me.
[2018-12-27] MEDS ORDERED: GLUCOSE 40% GEL 15 GM TUBE PO PRN (21:43)
[2018-12-27] MEDS ORDERED: SODIUM CHLORIDE 0.9% 1000ML 1,000 ML IV SCH (21:43)
[2018-12-27] MEDS ORDERED: TRAMADOL HCL 50 MG TABLET PO PRN ×2 (21:43)
[2018-12-27] MEDS ORDERED: GLUCOSE 10 TABS/TUBE PO PRN (21:43)
[2018-12-27] MEDS ORDERED: GLUCAGON FOR INJ 1 MG VIAL SQ PRN (21:43)
[2018-12-27] MEDS ORDERED: ACETAMINOPHEN 325 MG TAB PO PRN (21:43)
[2018-12-27] MEDS ORDERED: DEXTROSE 50% 50 ML SYRINGE IV PRN (21:43)
[2018-12-27] MEDS ORDERED: CARBOHYDRATES FOR HYPOGLYCEMIA PO PRN (21:43)
[2018-12-28] MEDS: cefTRIAXone SODIUM 1,000 MG in DEXTROSE 5% 50 ML IV SCH ×2 (00:13→22:25)
[2018-12-28] MEDS: DOCUSATE SODIUM 100 MG CAP PO SCH ×3 (00:14→22:09)
[2018-12-28] MEDS: METOPROLOL TARTRATE 25 MG TAB PO SCH ×3 (00:14→19:44)
[2018-12-28] MEDS: MONTELUKAST SODIUM 10 MG TABLET PO SCH ×2 (00:15→22:11)
[2018-12-28] MEDS: SUCRALFATE 1 GM TAB PO SCH ×3 (00:15→22:09)
[2018-12-28] MEDS: BusPIRone 15 MG TAB PO SCH ×3 (00:15→22:08)
[2018-12-28] MEDS: MICONAZOLE NITRATE POWDER 43 GM TOP SCH ×3 (00:16→22:09)
[2018-12-28] MEDS: FERROUS SULFATE 325 MG TAB PO SCH ×3 (00:16→22:10)
[2018-12-28] MEDS: FLUTICASONE/SALMETEROL (ADVAIR) 500/50 INH 14 PUFF INH SCH ×3 (00:16→22:07)
[2018-12-28] MEDS: SENNA 8.6 MG TAB PO SCH ×3 (00:16→22:10)
[2018-12-28] MEDS: POTASSIUM CHLORIDE 20 MEQ TABCR PO SCH ×3 (00:16→22:10)
[2018-12-28] MEDS: CHECK FENTANYL PATCH PLACEMENT SCH ×4 (00:22→23:11)
[2018-12-28] MEDS: INSULIN GLARGINE SOLOSTAR 100 UNITS/ML 3 ML PEN SC SCH ×3 (00:32→22:12)
[2018-12-28] MEDS: INSULIN ASPART 100 UNITS/ML 3 ML PEN SC SCH ×5 (00:33→22:14)
[2018-12-28] MEDS: LEVALBUTEROL HCL 0.63 MG/3 ML NEB NEB SCH ×4 (01:33→19:20)
[2018-12-28] MEDS: IPRATROPIUM BROMIDE NEB SOLN 0.02% 2.5 ML VIAL INH SCH ×4 (01:36→19:20)
[2018-12-28] MEDS ORDERED: XOPENEX/ATROVENT 0.63mg/0.5MG NEB COMBO NEB SCH (02:00)
[2018-12-28] MEDS: PANTOprazole 40 MG TAB PO SCH (05:14)
[2018-12-28] MEDS: LEVOTHYROXINE SODIUM 75 MCG TABLET PO SCH (05:14)
[2018-12-28 06:24] LABS: Basophils # (auto) 0.02 K/uL (0-0.2); Basophils % (auto) 0.2 %; Eosinophils # (auto) 0.09 K/uL (0-0.5); Eosinophils % (auto) 0.8 %; Hematocrit (blood only) 40.7 % (37-47); Hemoglobin 13.8 g/dL (12.0-16.0); Immature Granulocytes # (auto) 0.11 K/uL (0.00-0.02); Lymphocytes # (auto) 1.86 K/uL (1.2-3.4); Mean Corpuscular Hgb Conc 33.9 g/dL (32-36); Mean Corpuscular Volume 101.5 fL (80-100); Mean Platelet Volume 11.5 fL (7.4-10.4); Monocytes # (auto) 0.66 K/uL (0.11-0.59); Neutrophils # (auto) 8.22 K/uL (1.4-6.5); Platelet Count 229 K/uL (130-400); RDW Coefficient of Variation 15.8 % (11.5-14.5); RDW Standard Deviation 58.2 fL (36.4-46.3); Red Blood Count 4.01 M/uL (4.2-5.4); White Blood Count 10.96 K/uL (4.8-10.8)
[2018-12-28 06:40] LABS: INR 1.7 (0.9-1.1); Prothrombin Time 17.1 Seconds (9.0-12.0)
[2018-12-28 06:49] LABS: BUN Creatinine Ratio 31.4 (10-20); Calcium 8.9 mg/dl (8.5-10.1); Creatinine Clr Calc Pharmacy 48.2 ml/min; Est GFR (African American) 47.1; Est GFR (Non-African American) 40.7; Magnesium 2.2 mg/dl (1.8-2.4)
[2018-12-28] MEDS: ARTIFICIAL TEARS OP SCH ×2 (08:12→22:26)
[2018-12-28] MEDS: dilTIAZem HCL 240 MG CAPCR PO SCH (08:15)
[2018-12-28] MEDS: DULOXETINE HCL 60 MG CAP PO SCH (08:16)
[2018-12-28] MEDS: MAGNESIUM OXIDE 400 MG TAB PO SCH (08:19)
[2018-12-28] MEDS: PREGABALIN 50 MG CAP PO SCH ×3 (08:19→18:32)
[2018-12-28] MEDS: POLYETHYLENE (MIRALAX) 17 GM PACK PO SCH (08:20)
[2018-12-28] MEDS: TIOTROPIUM BROMIDE 5 PUFF/90 MCG INH INH SCH (08:21)
[2018-12-28] MEDS: ALLOPURINOL 100 MG TAB PO SCH (08:22)
[2018-12-28] MEDS: WARFARIN SOD 0.5 MG TAB PO SCH (18:34)
[2018-12-28] MEDS: GUAIFENESIN/DEXTROM SYRUP 200MG/20MG 10ML UDC PO PRN (22:24)
[2018-12-29] MEDS: LEVALBUTEROL HCL 0.63 MG/3 ML NEB NEB SCH ×4 (02:08→20:20)
[2018-12-29] MEDS: IPRATROPIUM BROMIDE NEB SOLN 0.02% 2.5 ML VIAL INH SCH ×4 (02:09→20:20)
[2018-12-29 06:53] LABS: INR 1.4 (0.9-1.1); Prothrombin Time 13.8 Seconds (9.0-12.0)
[2018-12-29] MEDS: LEVOTHYROXINE SODIUM 75 MCG TABLET PO SCH (07:45)
[2018-12-29] MEDS: PANTOprazole 40 MG TAB PO SCH (07:45)
[2018-12-29] MEDS: CHECK FENTANYL PATCH PLACEMENT SCH ×3 (07:46→23:23)
[2018-12-29] MEDS: BusPIRone 15 MG TAB PO SCH ×2 (07:47→21:01)
[2018-12-29] MEDS: SUCRALFATE 1 GM TAB PO SCH ×2 (07:47→21:02)
[2018-12-29] MEDS: dilTIAZem HCL 240 MG CAPCR PO SCH (07:48)
[2018-12-29] MEDS: FERROUS SULFATE 325 MG TAB PO SCH ×2 (07:48→21:04)
[2018-12-29] MEDS: DULOXETINE HCL 60 MG CAP PO SCH (07:48)
[2018-12-29] MEDS: DOCUSATE SODIUM 100 MG CAP PO SCH ×2 (07:48→21:03)
[2018-12-29] MEDS: POTASSIUM CHLORIDE 20 MEQ TABCR PO SCH ×2 (07:49→21:05)
[2018-12-29] MEDS: METOPROLOL TARTRATE 25 MG TAB PO SCH ×2 (07:49→21:07)
[2018-12-29] MEDS: PREGABALIN 50 MG CAP PO SCH ×4 (07:50→17:36)
[2018-12-29] MEDS: MAGNESIUM OXIDE 400 MG TAB PO SCH (07:50)
[2018-12-29] MEDS: SENNA 8.6 MG TAB PO SCH ×2 (07:51→21:08)
[2018-12-29] MEDS: ALLOPURINOL 100 MG TAB PO SCH (07:52)
[2018-12-29] MEDS: FLUTICASONE/SALMETEROL (ADVAIR) 500/50 INH 14 PUFF INH SCH ×2 (07:55→21:02)
[2018-12-29] MEDS: MICONAZOLE NITRATE POWDER 43 GM TOP SCH ×2 (07:56→21:03)
[2018-12-29] MEDS: TIOTROPIUM BROMIDE 5 PUFF/90 MCG INH INH SCH (07:57)
[2018-12-29] MEDS: INSULIN GLARGINE SOLOSTAR 100 UNITS/ML 3 ML PEN SC SCH ×2 (08:54→21:05)
[2018-12-29] MEDS: INSULIN ASPART 100 UNITS/ML 3 ML PEN SC SCH ×4 (08:54→21:08)
[2018-12-29] MEDS: ARTIFICIAL TEARS OP SCH ×2 (08:57→21:02)
--- NOTE | 2018-12-29 12:09 | Communication Note ---
Date of Service: December 29, 2018 I have seen, interviewed and examined Mrs. Crane today and reviewed her history and medication records a full consultation note has been dictated and will be transcribed later. 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 Arnold will have suggested that her tramadol be gradually tapered off to 0 and a perhaps a fentanyl patch could be reduced in dosage after this process is complete Rebekah Mccain PA-C and I will check back tomorrow but less the tramadol dose has been reduced significantly I doubt we will see much change I will however have the opportunity to review the EEG just to be certain there is no cortical basis for the multifocal myoclonus Ramon Graves MD
[2018-12-29] MEDS ORDERED: TRAMADOL HCL 50 MG TABLET PO PRN (14:35)
--- NOTE | 2018-12-29 14:35 | Consultation Report ---
DATE OF CONSULTATION: 12/29/2018 CONSULTATION FOR: Reese Guevara MD. HISTORY OF PRESENT ILLNESS: Margareth is 78 years old, patient of Dr. Viry Lemus, currently resides in [facility] where she has been for several years, simply because she "has no place else to go." She does have chronic back pain disorder, on a program of fentanyl and tramadol. Has a number of medical problems including recently diagnosed diabetes and apparently recently diagnosed urinary tract infection with Proteus and treated with Keflex. She also has a history of bronchitis with some hypoxia and history of asthma, obesity hypoventilation syndrome, which complicates things. She was admitted to the hospital for increasing tremor and myoclonus, which she claims she has had for years, actually up to 2 years, and dates it historically to correlate with the use of narcotic analgesics for treatment of her back pain. She is a little vague about the onset, but today was pretty insistent that these movements have been present for that time and may have gotten a little bit worse lately typically over the past several days. Otherwise, she has had only a mild sense of malaise, perhaps a little off balance, but denies any cognitive impairment. She does have the back pain and does talk about some numbness in her feet and does have a little baseline tremor in addition to the more massive myoclonic jerking, which at times causes her to drop utensils and various objects from her hands. OTHER MEDICAL PROBLEMS: Include recently diagnosed diabetes as noted above, bronchitis, low back pain, presence of chronic atrial fibrillation, diastolic heart failure, underlying asthma, hypertension, hypothyroidism, GERD, history of hyperuricemia, chronic anxiety and she is on DVT prophylaxis. She has also apparently renal step off with a creatinine on admission of 1.6 from a baseline of 1.3 and was a little dehydrated on admission. HOME MEDICATIONS: Include glucosamine, Lyrica, Refresh Tears, acetaminophen, allopurinol, bisacodyl, BuSpar, colchicine, diltiazem, docusate, duloxetine, ferrous sulfate, Advair Diskus, ipratropium, levothyroxine, lorazepam, magnesium hydroxide, magnesium oxide, meclizine, tramadol 50 mg 3 times a day, fentanyl patch I believe 75 mcg every 72 hours, potassium chloride ,Lasix, insulin, metolazone, ranitidine, simethicone, Spiriva, and Coumadin daily. ALLERGIES: SHE CLAIMS ALLERGIES TO MEPERIDINE, MORPHINE, OXYCODONE, PROPOXYPHENE, TRAMADOL, BACTRIM, CODEINE, OLMESARTAN, SULFA/TRIMETHOPRIM, AND SOMA, YET IS ON NARCOTICS AND TRAMADOL, SO I AM NOT SURE HOW ACCURATE THIS ALLERGY LIST REALLY IS AND SUSPECT THAT THESE ARE MAINLY SIDE EFFECTS. PAST SURGICAL HISTORY: Surgically, she has had a hernia, cholecystectomy, but has had no actual back surgery despite the chronic pain. FAMILY HISTORY: Noncontributory other than the fact there are individuals with diabetes and hypertension. SOCIAL HISTORY: Reveals her to be , currently a resident in [facility] where she has been for several years. She is a nonsmoker, nonconsumer of ethanol. REVIEW OF SYSTEMS: Systems review reveals malaise, increasing myoclonus and tremor over the past several days and a recent bladder infection, treated apparently with outpatient antibiotics, but otherwise she does not offer any specific complaints referable to head, eyes, ears, nose and throat, cardiovascular, pulmonary, gastrointestinal, genitourinary, musculoskeletal, dermatologic, hematologic, or endocrinologic systems other than those related to her chronic list of medical illnesses and problems. There have been no medication changes recently other than apparently the antibiotics, which were done on an outpatient basis. PHYSICAL EXAMINATION: VITAL SIGNS: Blood pressure 117/94, pulse is 78 and irregular, pulse oximetry was 92. She was afebrile. GENERAL: She was moderately over nourished. She appeared to be somewhat chronically ill. HEENT: Examination was unremarkable. LUNGS: Grossly clear. HEART: Had an irregularly irregular rhythm. ABDOMEN: Obese. No organomegaly was felt. EXTREMITIES: Moderately edematous. Pulses were good. NEUROLOGIC: Today, neurologically she is awake, alert, oriented in 3 spheres, is quite accurate as a historian and knows her medications and seems to be reliable in terms of her history that the movements have been present since the onset of narcotic management. She has normal eye movements. Normal facial motility and strength. Normal facial sensation, clear speech. There is a little tremor of the head and occasionally a myoclonic jerk of the head occurs. There are myoclonic movements of the upper extremities when she is trying to manipulate her utensils, but she managed to do with this and there is also superimposed tremor with intentional components but no resting component. There is no cogwheeling, no rigidity. Reflexes are absent at the ankles and knees, hypoactive in the upper extremities. Toes are downgoing. No Ayla signs are seen. Strength testing is good. There is no atrophy. No fasciculation, but she does have sensory loss to vibration up to about the mid calves fading up to the knees and proprioception is down a little bit as well. Pinprick seems to be marginally off over the toes. 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 I have talked to Dr. Guevara about potentially dropping her tramadol off to twice a day for a few days, then daily and then stop it. We are going to get an EEG just to be sure this is not cortical myoclonus, which I doubt, and we will take a look at her tomorrow, but frankly unless these medications are dropped back for a period of weeks, there is probably going to be little or no change in the myoclonic activity and some of the narcotic effects are chronic. We will see how things go tomorrow, see what the EEG shows and we will probably make suggestions about withdrawal to her primary care physician, but I do not really think this is something neurology needs to see on a regular basis. NIKOLE
[2018-12-29 15:07] LABS: BUN Creatinine Ratio 29.5 (10-20); Calcium 9.4 mg/dl (8.5-10.1); Creatinine Clr Calc Pharmacy 55.7 ml/min; Est GFR (African American) 55.5; Est GFR (Non-African American) 47.9; Potassium 4.4 mmol/L (3.5-5.1)
[2018-12-29 15:09] LABS: Basophils # (auto) 0.02 K/uL (0-0.2); Basophils % (auto) 0.2 %; Eosinophils # (auto) 0.05 K/uL (0-0.5); Eosinophils % (auto) 0.4 %; Hematocrit (blood only) 42.6 % (37-47); Hemoglobin 14.4 g/dL (12.0-16.0); Immature Granulocytes # (auto) 0.21 K/uL (0.00-0.02); Immature Granulocytes % (auto) 1.7 %; Lymphocytes # (auto) 1.69 K/uL (1.2-3.4); Mean Corpuscular Hgb Conc 33.8 g/dL (32-36); Mean Corpuscular Volume 101.7 fL (80-100); Mean Platelet Volume 11.7 fL (7.4-10.4); Monocytes # (auto) 0.87 K/uL (0.11-0.59); Monocytes % (auto) 7.2 %; Neutrophils # (auto) 9.21 K/uL (1.4-6.5); Neutrophils % (auto) 76.5 %; Platelet Count 267 K/uL (130-400); RDW Coefficient of Variation 15.6 % (11.5-14.5); RDW Standard Deviation 57.7 fL (36.4-46.3); Red Blood Count 4.19 M/uL (4.2-5.4); White Blood Count 12.05 K/uL (4.8-10.8)
[2018-12-29] MEDS ORDERED: Nursing to Pharmacy Communication ONE (16:22)
[2018-12-29] MEDS: WARFARIN SOD 0.5 MG TAB PO SCH (17:34)
[2018-12-29] MEDS: fentaNYL 25 MCG/HR TDSY TD SCH (17:39)
--- NOTE | 2018-12-29 19:36 | Hospitalist Progress Note ---
Date of Service December 29, 2018 Assessment & Plan (1) Altered mental status: Presented to ER for altered mental status. Reported patient with increased confusion and was eating a tissue today. Patient states has been feeling off balance and tremors for the past week. In ER T: 37.1C, P: 104, R: 17, BP: 116/91, 93% on 4L NC. WBC: 15, Hgb: 13. POC lactic acid: 0.9. negative troponin. CT HEAD: No acute intracranial abnormality. CXR: No acute cardiopulmonary findings. Linear bibasilar opacities which favor atelectasis. Probable metabolic encephalopathy. Possible UTI. hypoglycemia, hypoxia. Urine cultures pending On empiric ceftriaxone IV Management of hypoglycemia and hypoxia noted below (2) Possible urinary tract infection: Patient reports has been having dysuria for the past week. Hx proteus UTI 11/15/18 which was resistent to cipro and levaquin. Was discharged keflex -pending UA and urine culture Continue IV ceftriaxone, follow-up cultures (3) Bronchitis: States feels like he has had cough for the past month since her previous hospitalization. States intermittent SOB. Continue ceftriaxone, nebs (4) Hypoxia: Pt with hx asthma, obesity hypoventilation syndrome. States feels like he has had cough for the past month since her previous hospitalization. States intermittent SOB and has been using oxygen NC at intermediate. H/O hospitalization 11/15/18-11/21/18 for flu, cough, hypoxia was treated with vancomycin cefepime and prednisone and was transitioned to doxycycline. CXR: No acute cardiopulmonary findings. Linear bibasilar opacities which favor atelectasis. -pending blood cultures -Rocephin -xopenex/atrovent nebs -supplemental oxygen -incentive spirometery (5) DM type 2 (diabetes mellitus, type 2): (6) Hypoglycemia: Hx DM II. A1c6.2 on 11/18. Pt on lantus and novolog at [facility]. Reports just had toast early in morning In ER pt with glucose 52 up to 91 -monitor BSGs -novolog lantus sliding scale (7) ROSEY (acute kidney injury): ROSEY on CKD III Cr: 1.6. Baseline ~1.3 Pt appears dry currently -IVF 12.2, continue to monitor (8) Atrial fibrillation: Chronic a-fib. On coumadin P: 104 down to 95. INR: 2.0 -IVF -continue coumadin, metoprolol -monitor INR (9) Diastolic CHF: Chronic diastolic HF 08/2018 echo: EF: 55% -hold lasix, spironolactone, metolazone in light of borderline blood pressure (10) Asthma: -continue advair, spiriva, singulair -xopenex/atrovent nebs prn (11) Hypertension: -continue metoprolol (12) Hypothyroidism: -continue levothyroxine (13) Chronic pain: -continue fentanyl patch, lyrica, - tramadol prn, holding if worsening confusion, - tylenol prn (14) GERD (gastroesophageal reflux disease): -continue PPI, H2 gabriela, carafate (15) Hyperuricemia: -continue allopurinol. hold colchicine (16) Anxiety: -continue buspirone, duloxetine -hold ativan and trazodone and monitor for any worsening/improvement of conf usion Myoclonus -We will order neurology consultation DVT Prophylaxis -on coumadin and INR: 2.0 Full code but no mechanical ventilation as per discussion with pt, as is same as prior admission Follows with Dr Lemus for routine care Pt was seen with Dr Villeda. See addendum Subjective Delayed entry date of service December 28, 2018 Patient seen sitting up in bed, awake and alert, oriented x2, having lunch Not in distress, in good spirits States she feels better compared to admission Still has some suprapubic discomfort and dysuria Denies chills, flank pain Reports breathing is improving but still has some cough, occasionally productive No other symptoms Answers questions appropriately Physical Exam Vital Signs (Past 24 Hours): Last Vital Signs Temp 37.3 C 12/29/18 15:35 Pulse 98 H 12/29/18 15:35 Resp 20 12/29/18 15:35 BP 132/80 12/29/18 15:35 Pulse Ox 95 12/29/18 15:35 Physical Exam: General- oriented x 3, not in distress, speaks in sentences with no effort or accessory muscle use Head- atraumatic Eyes- PERRL, EOMI, anicteric ENT- oropharynx clear Neck- supple, no JVD, no adenopathy, no thyromegaly; carotids +2/2, no bruits appreciated Lungs-mild rhonchi bilaterally, no wheezing, good air entry bilaterally Heart- normal rate, regular rhythm; no murmur, no gallop, no rub appreciated Abdomen- normal bowel sounds, nondistended, soft, mild tenderness, no CVA tenderness Extremities- no pretibial edema, no calf tenderness; peripheral pulses intact Neuro- alert, oriented x 3; CN 2-12 grossly intact; motor 5/5 bilaterally;sensation 100% on all extremities; no other gross focal neurologic deficits Skin- warm & dry Results & Data Laboratory Results All noted and reviewed (1) Altered mental status Altered mental status type: unspecified Qualified Code(s): R41.82 - Altered mental status, unspecified
--- NOTE | 2018-12-29 19:47 | Hospitalist Progress Note ---
Date of Service December 29, 2018 Assessment & Plan (1) Altered mental status: Presented to ER for altered mental status. Reported patient with increased confusion and was eating a tissue today. Patient states has been feeling off balance and tremors for the past week. In ER T: 37.1C, P: 104, R: 17, BP: 116/91, 93% on 4L NC. WBC: 15, Hgb: 13. POC lactic acid: 0.9. negative troponin. CT HEAD: No acute intracranial abnormality. CXR: No acute cardiopulmonary findings. Linear bibasilar opacities which favor atelectasis. Probable metabolic encephalopathy. Possible UTI. hypoglycemia, hypoxia. Urine cultures E. coli Continue ceftriaxone IV day #3 Management of hypoglycemia and hypoxia noted below And had at least 2 episodes of confusion today, most likely secondary to metabolic encephalopathy Possible component of delirium next Tramadol reduced to twice a day as needed, fentanyl patch reduced from 50-25 mcg Continue to monitor (2) Possible urinary tract infection: Patient reports has been having dysuria for the past week. Hx proteus UTI 11/15/18 which was resistent to cipro and levaquin. Was discharged keflex Management per #1 (3) Bronchitis: States feels like he has had cough for the past month since her previous hospitalization. States intermittent SOB. Continue ceftriaxone, nebs Doxycycline added Hold off on steroids in light of patient's confusional episodes (4) Hypoxia: Pt with hx asthma, obesity hypoventilation syndrome. States feels like he has had cough for the past month since her previous hospitalization. States intermittent SOB and has been using oxygen NC at assisted. H/O hospitalization 11/15/18-11/21/18 for flu, cough, hypoxia was treated with vancomycin cefepime and prednisone and was transitioned to doxycycline. CXR: No acute cardiopulmonary findings. Linear bibasilar opacities which favor atelectasis. Management as noted above (5) DM type 2 (diabetes mellitus, type 2): (6) Hypoglycemia: Hx DM II. A1c6.2 on 11/18. Pt on lantus and novolog at [facility]. Reports just had toast early in morning In ER pt with glucose 52 up to 91 -BSGs improving - novolog lantus sliding scale (7) ROSEY (acute kidney injury): ROSEY on CKD III Cr: 1.6. Baseline ~1.3 Creatinine back to baseline after IV fluids (8) Atrial fibrillation: Chronic a-fib. On coumadin P: 104 down to 95. INR: 2.0 -continue coumadin, metoprolol -monitor INR (9) Diastolic CHF: Chronic diastolic HF 08/2018 echo: EF: 55% lasix, spironolactone, metolazone were held in light of borderline blood pressure Anticipate to resume tomorrow (10) Asthma: -continue advair, spiriva, singulair -xopenex/atrovent nebs prn (11) Hypertension: -continue metoprolol (12) Hypothyroidism: -continue levothyroxine (13) Chronic pain: Management of fentanyl patch and tramadol as noted above (14) GERD (gastroesophageal reflux disease): -continue PPI, H2 gabriela, carafate (15) Hyperuricemia: -continue allopurinol. hold colchicine (16) Anxiety: -continue buspirone, duloxetine, trazodone Hold Ativan for now Myoclonus Neurologist consulted Likely secondary to narcotics Use fentanyl and tramadol Continue to monitor DVT Prophylaxis -on coumadin Full code but no mechanical ventilation as per discussion with pt, as is same as prior admission Follows with Dr Lemus for routine care Subjective Per RN the patient had a confusional episode this afternoon, immediately improved with orientation On exam the patient is sitting up, oriented x3, answers questions appropriately States she feels improved compared to yesterday next still has some mild dysuria and suprapubic discomfort No nausea or chills Breathing continues to improve but still has productive cough with yellow sputum Next Denies any symptoms Physical Exam Vital Signs (Past 24 Hours): Last Vital Signs Temp 36.9 C 12/29/18 19:42 Pulse 102 H 12/29/18 19:42 Resp 20 12/29/18 19:42 BP 121/74 12/29/18 19:42 Pulse Ox 94 12/29/18 19:42 Physical Exam: General- oriented x 3, not in distress, speaks in sentences with no effort or accessory muscle use Eyes- anicteric Neck- no JVD Lungs-positive faint wheeze bilaterally, no crackles Good air entry bilaterally Heart- normal rate, regular rhythm; no murmurs Abdomen- normal bowel sounds, nondistended, soft, nontender Extremities- no pretibial edema, no calf tenderness Neuro- alert, oriented x 3; no gross focal neurologic deficits Skin- warm & dry Results & Data Laboratory Results Laboratory Results - last 24 hr 12/28/18 12/29/18 12/29/18 20:00 06:04 06:05 WBC 12.05 H RBC 4.19 L Hgb 14.4 Hct 42.6 MCV 101.7 H MCH 34.4 H MCHC 33.8 RDW Std Deviation 57.7 H RDW Coeff of Kenneth 15.6 H Plt Count 267 MPV 11.7 H Immature Gran % (Auto) 1.7 Neut % (Auto) 76.5 Lymph % (Auto) 14.0 [place] % (Auto) 7.2 Eos % (Auto) 0.4 Baso % (Auto) 0.2 Immature Gran # (Auto) 0.21 H Neut # (Auto) 9.21 H Lymph # (Auto) 1.69 [place] # (Auto) 0.87 H Eos # (Auto) 0.05 Baso # (Auto) 0.02 PT 13.8 H INR 1.4 H Sodium Potassium Chloride Carbon Dioxide Anion Gap BUN Creatinine Est Cr Clr Drug Dosing Est GFR ( Amer) Est GFR (Non-Af Amer) BUN/Creatinine Ratio Glucose POC Glucose 208 H Calcium 12/29/18 12/29/18 12/29/18 06:05 07:55 11:27 WBC RBC Hgb Hct MCV MCH MCHC RDW Std Deviation RDW Coeff of Kenneth Plt Count MPV Immature Gran % (Auto) Neut % (Auto) Lymph % (Auto) [place] % (Auto) Eos % (Auto) Baso % (Auto) Immature Gran # (Auto) Neut # (Auto) Lymph # (Auto) [place] # (Auto) Eos # (Auto) Baso # (Auto) PT INR Sodium 138 Potassium 4.4 Chloride 102 Carbon Dioxide 30 Anion Gap 6.0 BUN 33 H Creatinine 1.11 Est Cr Clr Drug Dosing 55.7 Est GFR ( Amer) 55.5 Est GFR (Non-Af Amer) 47.9 BUN/Creatinine Ratio 29.5 H Glucose 160 H POC Glucose 129 H 191 H Calcium 9.4 12/29/18 16:37 WBC RBC Hgb Hct MCV MCH MCHC RDW Std Deviation RDW Coeff of Kenneth Plt Count MPV Immature Gran % (Auto) Neut % (Auto) Lymph % (Auto) [place] % (Auto) Eos % (Auto) Baso % (Auto) Immature Gran # (Auto) Neut # (Auto) Lymph # (Auto) [place] # (Auto) Eos # (Auto) Baso # (Auto) PT INR Sodium Potassium Chloride Carbon Dioxide Anion Gap BUN Creatinine Est Cr Clr Drug Dosing Est GFR ( Amer) Est GFR (Non-Af Amer) BUN/Creatinine Ratio Glucose POC Glucose 142 H Calcium (1) Altered mental status Altered mental status type: unspecified Qualified Code(s): R41.82 - Altered mental status, unspecified
[2018-12-29] MEDS: MONTELUKAST SODIUM 10 MG TABLET PO SCH (21:08)
[2018-12-29] MEDS: TRAZODONE HCL 50 MG TAB PO SCH (21:15)
[2018-12-29] MEDS: cefTRIAXone SODIUM 1,000 MG in DEXTROSE 5% 50 ML IV SCH (23:15)
[2018-12-30] MEDS: IPRATROPIUM BROMIDE NEB SOLN 0.02% 2.5 ML VIAL INH SCH ×4 (01:40→19:53)
[2018-12-30] MEDS: LEVALBUTEROL HCL 0.63 MG/3 ML NEB NEB SCH ×4 (01:40→19:53)
[2018-12-30] MEDS: PANTOprazole 40 MG TAB PO SCH (06:22)
[2018-12-30] MEDS: LEVOTHYROXINE SODIUM 75 MCG TABLET PO SCH (06:22)
[2018-12-30 07:26] LABS: INR 1.3 (0.9-1.1); Prothrombin Time 12.9 Seconds (9.0-12.0)
[2018-12-30] MEDS: INSULIN ASPART 100 UNITS/ML 3 ML PEN SC SCH ×4 (08:39→21:00)
[2018-12-30] MEDS: FLUTICASONE/SALMETEROL (ADVAIR) 500/50 INH 14 PUFF INH SCH ×2 (08:40→21:08)
[2018-12-30] MEDS: CHECK FENTANYL PATCH PLACEMENT SCH ×3 (08:40→23:41)
[2018-12-30] MEDS: dilTIAZem HCL 240 MG CAPCR PO SCH (08:40)
[2018-12-30] MEDS: FERROUS SULFATE 325 MG TAB PO SCH ×2 (08:40→21:06)
[2018-12-30] MEDS: DOCUSATE SODIUM 100 MG CAP PO SCH ×3 (08:40→23:11)
[2018-12-30] MEDS: SENNA 8.6 MG TAB PO SCH ×3 (08:41→23:11)
[2018-12-30] MEDS: BusPIRone 15 MG TAB PO SCH ×2 (08:41→21:04)
[2018-12-30] MEDS: POTASSIUM CHLORIDE 20 MEQ TABCR PO SCH ×2 (08:41→21:07)
[2018-12-30] MEDS: DULOXETINE HCL 60 MG CAP PO SCH (08:42)
[2018-12-30] MEDS: SUCRALFATE 1 GM TAB PO SCH ×2 (08:42→21:03)
[2018-12-30] MEDS: MAGNESIUM OXIDE 400 MG TAB PO SCH (08:42)
[2018-12-30] MEDS: ALLOPURINOL 100 MG TAB PO SCH (08:42)
[2018-12-30] MEDS: METOPROLOL TARTRATE 25 MG TAB PO SCH ×2 (08:42→21:03)
[2018-12-30] MEDS: ARTIFICIAL TEARS OP SCH ×2 (08:43→21:06)
[2018-12-30] MEDS: INSULIN GLARGINE SOLOSTAR 100 UNITS/ML 3 ML PEN SC SCH ×2 (08:43→21:01)
[2018-12-30] MEDS: MICONAZOLE NITRATE POWDER 43 GM TOP SCH ×2 (08:56→21:16)
[2018-12-30] MEDS: POLYETHYLENE (MIRALAX) 17 GM PACK PO SCH (08:56)
[2018-12-30] MEDS ORDERED: fentaNYL 25 MCG/HR TDSY TD SCH (09:00)
[2018-12-30] MEDS ORDERED: fentaNYL 50 MCG/HR TDSY TD SCH (09:00)
[2018-12-30] MEDS: PREGABALIN 50 MG CAP PO SCH ×3 (09:49→17:35)
[2018-12-30] MEDS: TIOTROPIUM BROMIDE 5 PUFF/90 MCG INH INH SCH (09:50)
[2018-12-30] MEDS: DOXYCYCLINE HYCLATE 100 MG CAP PO SCH ×2 (09:58→23:33)
--- NOTE | 2018-12-30 14:38 | Procedure Note ---
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 Home Medication List Home Medications Medication Instructions Recorded Confirmed Type Desenex 1 applic TOPICAL BID 11/01/18 12/27/18 History Fleet Enema 118 ml ND DAILY PRN 11/01/18 12/27/18 History Glucosamine Chondroitin PLUS 1 tab PO PC 11/01/18 12/27/18 History Lyrica 50 mg PO PC 11/01/18 12/27/18 History Refresh Tears 1 drp OPB BID 11/01/18 12/27/18 History acetaminophen 650 mg ND Q6H PRN 11/01/18 12/27/18 History acetaminophen [Tylenol] 650 mg PO Q4 PRN 11/01/18 12/27/18 History allopurinol 200 mg PO QA 11/01/18 12/27/18 History bisacodyl [Dulcolax (bisacodyl)] 10 mg ND DAILY PRN 11/01/18 12/27/18 History buspirone 15 mg PO [facility] 11/01/18 12/27/18 History colchicine 0.6 mg PO QAM 11/01/18 12/27/18 History diltiazem HCl [Cardizem CD] 240 mg PO QA 11/01/18 12/27/18 History docusate sodium [Colace] 100 mg PO [facility] 11/01/18 12/27/18 History duloxetine 60 mg PO QA 11/01/18 12/27/18 History ferrous sulfate 325 mg PO [facility] 11/01/18 12/27/18 History fluticasone propion-salmeterol 1 inh INHALATION [facility] 11/01/18 12/27/18 History [Advair Diskus] ipratropium-albuterol 3 ml INHALATION QID 11/01/18 12/27/18 History levothyroxine 75 mcg PO DAILYBB 11/01/18 12/27/18 History lorazepam 0.5 mg PO TID PRN 11/01/18 12/27/18 History magnesium hydroxide [Milk of 30 ml PO DAILY PRN 11/01/18 12/27/18 History Magnesia] magnesium oxide 250 mg PO QAM 11/01/18 12/27/18 History meclizine 25 mg PO TID PRN 11/01/18 12/27/18 History melatonin 10 mg PO HS 11/01/18 12/27/18 History metoprolol tartrate 25 mg PO AMPM 11/01/18 12/27/18 History montelukast 10 mg PO PM 11/01/18 12/27/18 History ondansetron HCl [Zofran] 8 mg PO Q8 PRN 11/01/18 12/27/18 History pantoprazole 20 mg PO DAILYBB 11/01/18 12/27/18 History polyethylene glycol 3350 [Miralax] 17 g PO Q OTHER DAY 11/01/18 12/27/18 History sennosides [Senna-Gen] 8.6 mg PO [facility] 11/01/18 12/27/18 History spironolactone 25 mg PO QAM 11/01/18 12/27/18 History sucralfate 1 g PO AMPM 11/01/18 12/27/18 History tramadol 50 mg PO TID 11/01/18 12/27/18 History trazodone 50 mg PO HS 11/01/18 12/27/18 History fentanyl 1 patch TRANSDERMAL Q72H #0 ea 11/06/18 12/27/18 Rx potassium chloride 20 meq PO BID #60 tab 11/21/18 12/27/18 Rx foam bandage [Allevyn] 12/27/18 12/27/18 History furosemide [Lasix] 40 mg PO QAM 12/27/18 12/27/18 History insulin aspart U-100 [Novolog 10 unit SUBCUT AC 12/27/18 12/27/18 History U-100 Insulin aspart] insulin glargine [Lantus U-100 20 unit SUBCUT HS 12/27/18 12/27/18 History Insulin] metolazone 2.5 mg PO 2XWK 12/27/18 12/27/18 History ranitidine HCl [Zantac] 150 mg PO BID 12/27/18 12/27/18 History simethicone [Gas Relief] 180 mg PO PC 12/27/18 12/27/18 History tiotropium bromide [Spiriva 2 puff INHALATION DAILY 12/27/18 12/27/18 History Respimat] warfarin [Coumadin] 3 mg PO UD 12/27/18 12/27/18 History Inpatient Medication List Acetaminophen (Tylenol) 650 mg PO Q4H PRN PRN Reason: Pain or Fever Stop: 01/26/19 21:42 Last Admin: 12/28/18 08:20 Dose: 650 mg Documented by: [id number] Allopurinol (Zyloprim) 200 mg PO QAM [facility] Stop: 01/27/19 08:59 Last Admin: 12/30/18 08:42 Dose: 200 mg Documented by: [id number] Admin: 12/29/18 07:52 Dose: 200 mg Documented by: [id number] Admin: 12/28/18 08:22 Dose: 200 mg Documented by: [id number] Artificial Tears (Artificial Tears) 1 drops OP BID [facility] Stop: 01/27/19 08:59 Last Admin: 12/30/18 08:43 Dose: 1 drops Documented by: [id number] Admin: 12/29/18 21:02 Dose: Not Given Documented by: [id number] Admin: 12/29/18 08:57 Dose: 1 drops Documented by: [id number] Admin: 12/28/18 22:26 Dose: Not Given Documented by: [id number] Admin: 12/28/18 08:12 Dose: Not Given Documented by: [id number] Buspirone HCl (Buspar) 15 mg PO BID [facility] Stop: 01/26/19 21:42 Last Admin: 12/30/18 08:41 Dose: 15 mg Documented by: [id number] Admin: 12/29/18 21:01 Dose: 15 mg Documented by: [id number] Admin: 12/29/18 07:47 Dose: 15 mg Documented by: [id number] Admin: 12/28/18 22:08 Dose: 15 mg Documented by: [id number] Admin: 12/28/18 08:14 Dose: 15 mg Documented by: [id number] Admin: 12/28/18 00:15 Dose: Not Given Documented by: [id number] Diltiazem HCl (Cardizem Cd) 240 mg PO QAM [facility] Stop: 01/27/19 08:59 Last Admin: 12/30/18 08:40 Dose: 240 mg Documented by: [id number] Admin: 12/29/18 07:48 Dose: 240 mg Documented by: [id number] Admin: 12/28/18 08:15 Dose: 240 mg Documented by: [id number] Docusate Sodium (Colace) 100 mg PO BID [facility] Stop: 01/26/19 21:42 Last Admin: 12/30/18 08:40 Dose: 100 mg Documented by: [id number] Admin: 12/29/18 21:03 Dose: 100 mg Documented by: [id number] Admin: 12/29/18 07:48 Dose: 100 mg Documented by: [id number] Admin: 12/28/18 22:09 Dose: 100 mg Documented by: [id number] Admin: 12/28/18 08:21 Dose: 100 mg Documented by: [id number] Admin: 12/28/18 00:14 Dose: Not Given Documented by: [id number] Doxycycline Hyclate (Vibramycin) 100 mg PO Q12H [facility] Stop: 01/06/19 10:59 Last Admin: 12/30/18 09:58 Dose: 100 mg Documented by: [id number] Duloxetine HCl (Cymbalta) 60 mg PO QAM [facility] Stop: 01/27/19 08:59 Last Admin: 12/30/18 08:42 Dose: 60 mg Documented by: [id number] Admin: 12/29/18 07:48 Dose: 60 mg Documented by: [id number] Admin: 12/28/18 08:16 Dose: 60 mg Documented by: [id number] Fentanyl (Duragesic) 25 mcg TD Q72H [facility] Stop: 01/12/19 16:59 Last Admin: 12/29/18 17:39 Dose: 25 mcg Documented by: [id number] Ferrous Sulfate (Feosol) 325 mg PO BID [facility] Stop: 01/26/19 21:42 Last Admin: 12/30/18 08:40 Dose: 325 mg Documented by: [id number] Admin: 12/29/18 21:04 Dose: 325 mg Documented by: [id number] Admin: 12/29/18 07:48 Dose: 325 mg Documented by: [id number] Admin: 12/28/18 22:10 Dose: 325 mg Documented by: [id number] Admin: 12/28/18 08:17 Dose: 325 mg Documented by: [id number] Admin: 12/28/18 00:16 Dose: Not Given Documented by: [id number] Guaifenesin/Dextromethorphan (Robitussin Cough-Chest Dm) 10 ml PO QID PRN PRN Reason: Cough Stop: 01/27/19 20:27 Last Admin: 12/28/18 22:24 Dose: 10 ml Documented by: [id number] Ceftriaxone Sodium 1,000 mg/ (Dextrose) 50 mls @ 100 mls/hr IV Q24H [facility]; Protocol Stop: 01/01/19 22:59 Last Infusion: 12/30/18 00:02 Dose: 0 mls/hr Documented by: [id number] Admin: 12/29/18 23:15 Dose: 100 mls/hr Documented by: [id number] Infusion: 12/28/18 23:10 Dose: 0 mls/hr Documented by: [id number] Admin: 12/28/18 22:25 Dose: 100 mls/hr Documented by: [id number] Infusion: 12/28/18 00:43 Dose: 0 mls/hr Documented by: [id number] Admin: 12/28/18 00:13 Dose: 100 mls/hr Documented by: [id number] Insulin Aspart (Novolog Flexpen) 0 units SC ACHS [facility] Stop: 01/26/19 22:59 Last Admin: 12/30/18 12:51 Dose: 3 units Documented by: [id number] Cosigned by: [id number] Admin: 12/30/18 08:39 Dose: 2 units Documented by: [id number] Cosigned by: [id number] Admin: 12/29/18 21:08 Dose: Not Given Documented by: [id number] Cosigned by: [id number] Admin: 12/29/18 17:20 Dose: 3 units Documented by: [id number] Cosigned by: [id number] Admin: 12/29/18 13:10 Dose: 4 units Documented by: [id number] Cosigned by: [id number] Admin: 12/29/18 08:54 Dose: 3 units Documented by: [id number] Cosigned by: [id number] Admin: 12/28/18 22:14 Dose: 2 units Documented by: [id number] Cosigned by: [id number] Admin: 12/28/18 18:18 Dose: 7 units Documented by: [id number] Cosigned by: [id number] Admin: 12/28/18 13:07 Dose: 6 units Documented by: [id number] Cosigned by: [id number] Admin: 12/28/18 08:10 Dose: 4 units Documented by: [id number] Cosigned by: [id number] Admin: 12/28/18 00:33 Dose: Not Given Documented by: [id number] Cosigned by: [id number] Insulin Glargine (Lantus Solostar Pen) 0 - 10 units SC Q12 [facility] Stop: 01/26/19 22:59 Last Admin: 12/30/18 08:43 Dose: Not Given Documented by: [id number] Cosigned by: [id number] Admin: 12/29/18 21:05 Dose: 5 units Documented by: [id number] Cosigned by: [id number] Admin: 12/29/18 08:54 Dose: 5 units Documented by: [id number] Cosigned by: [id number] Admin: 12/28/18 22:12 Dose: 10 units Documented by: [id number] Cosigned by: [id number] Admin: 12/28/18 08:18 Dose: 5 units Documented by: [id number] Cosigned by: [id number] Admin: 12/28/18 00:32 Dose: Not Given Documented by: [id number] Cosigned by: [id number] Ipratropium [place] (Atrovent 0.02% 0.5mg/2.5ml) 0.5 mg INH Q6R [facility] Stop: 01/27/19 01:59 Last Admin: 12/30/18 13:09 Dose: 0.5 mg Documented by: [id number] Admin: 12/30/18 07:09 Dose: 0.5 mg Documented by: [id number] Admin: 12/30/18 01:40 Dose: 0.5 mg Documented by: [id number] Admin: 12/29/18 20:20 Dose: 0.5 mg Documented by: [id number] Admin: 12/29/18 14:01 Dose: 0.5 mg Documented by: [id number] Admin: 12/29/18 07:01 Dose: 0.5 mg Documented by: [id number] Admin: 12/29/18 02:09 Dose: 0.5 mg Documented by: [id number] Admin: 12/28/18 19:20 Dose: 0.5 mg Documented by: [id number] Admin: 12/28/18 14:18 Dose: 0.5 mg Documented by: [id number] Admin: 12/28/18 07:16 Dose: 0.5 mg Documented by: [id number] Admin: 12/28/18 01:36 Dose: 0.5 mg Documented by: [id number] Levalbuterol HCl (Xopenex 0.63 Mg/3 Ml Neb) 0.63 mg NEB Q6R [facility] Stop: 01/27/19 01:59 Last Admin: 12/30/18 13:09 Dose: 0.63 mg Documented by: [id number] Admin: 12/30/18 07:09 Dose: 0.63 mg Documented by: [id number] Admin: 12/30/18 01:40 Dose: 0.63 mg Documented by: [id number] Admin: 12/29/18 20:20 Dose: 0.63 mg Documented by: [id number] Admin: 12/29/18 14:01 Dose: 0.63 mg Documented by: [id number] Admin: 12/29/18 07:01 Dose: 0.63 mg Documented by: [id number] Admin: 12/29/18 02:08 Dose: 0.63 mg Documented by: [id number] Admin: 12/28/18 19:20 Dose: 0.63 mg Documented by: [id number] Admin: 12/28/18 14:17 Dose: 0.63 mg Documented by: [id number] Admin: 12/28/18 07:15 Dose: 0.63 mg Documented by: [id number] Admin: 12/28/18 01:33 Dose: 0.63 mg Documented by: [id number] Levothyroxine Sodium (Synthroid) 75 mcg PO DAILYBB [facility] Stop: 01/27/19 06:29 Last Admin: 12/30/18 06:22 Dose: 75 mcg Documented by: [id number] Admin: 12/29/18 07:45 Dose: 75 mcg Documented by: [id number] Admin: 12/28/18 05:14 Dose: 75 mcg Documented by: [id number] Magnesium Oxide (Mag-Ox) 400 mg PO QAM [facility] Stop: 01/27/19 08:59 Last Admin: 12/30/18 08:42 Dose: 400 mg Documented by: [id number] Admin: 12/29/18 07:50 Dose: 400 mg Documented by: [id number] Admin: 12/28/18 08:19 Dose: 400 mg Documented by: [id number] Metoprolol Tartrate (Lopressor) 25 mg PO BID [facility] Stop: 01/26/19 21:42 Last Admin: 12/30/18 08:42 Dose: 25 mg Documented by: [id number] Admin: 12/29/18 21:07 Dose: 25 mg Documented by: [id number] Admin: 12/29/18 07:49 Dose: 25 mg Documented by: [id number] Admin: 12/28/18 19:44 Dose: 25 mg Documented by: [id number] Admin: 12/28/18 08:19 Dose: 25 mg Documented by: [id number] Admin: 12/28/18 00:14 Dose: Not Given Documented by: [id number] Miconazole Nitrate (Desenex) 1 appln TOP BID [facility] Stop: 01/26/19 21:42 Last Admin: 12/30/18 08:56 Dose: 1 appln Documented by: [id number] Admin: 12/29/18 21:03 Dose: 1 appln Documented by: [id number] Admin: 12/29/18 07:56 Dose: 1 appln Documented by: [id number] Admin: 12/28/18 22:09 Dose: 1 appln Documented by: [id number] Admin: 12/28/18 08:16 Dose: 1 appln Documented by: [id number] Admin: 12/28/18 00:16 Dose: 1 appln Documented by: [id number] Miscellaneous (Fentanyl Patch Check Placement) 1 ea N/A QS [facility] Stop: 01/27/19 00:00 Last Admin: 12/30/18 08:40 Dose: 1 ea Documented by: [id number] Admin: 12/29/18 23:23 Dose: 1 ea Documented by: [id number] Admin: 12/29/18 17:38 Dose: 1 ea Documented by: [id number] Admin: 12/29/18 07:46 Dose: 1 ea Documented by: [id number] Admin: 12/28/18 23:11 Dose: 1 ea Documented by: [id number] Admin: 12/28/18 18:18 Dose: 1 ea Documented by: [id number] Admin: 12/28/18 08:11 Dose: 1 ea Documented by: [id number] Admin: 12/28/18 00:22 Dose: 1 ea Documented by: [id number] Miscellaneous (Fentanyl Patch Remove & Waste) 1 ea N/A Q72H [facility] Stop: 01/28/19 16:58 Last Admin: 12/29/18 17:39 Dose: 1 ea Documented by: [id number] Cosigned by: [id number] Montelukast Sodium (Singulair) 10 mg PO PM [facility] Stop: 01/26/19 21:42 Last Admin: 12/29/18 21:08 Dose: 10 mg Documented by: [id number] Admin: 12/28/18 22:11 Dose: 10 mg Documented by: [id number] Admin: 12/28/18 00:15 Dose: Not Given Documented by: [id number] Pantoprazole Sodium (Protonix) 40 mg PO DAILYBB [facility] Stop: 01/27/19 06:29 Last Admin: 12/30/18 06:22 Dose: 40 mg Documented by: [id number] Admin: 12/29/18 07:45 Dose: 40 mg Documented by: [id number] Admin: 12/28/18 05:14 Dose: 40 mg Documented by: [id number] Polyethylene Glycol (Miralax Powder Packet) 17 gm PO Q48H [facility] Stop: 01/27/19 08:59 Last Admin: 12/30/18 08:56 Dose: 17 gm Documented by: [id number] Admin: 12/28/18 08:20 Dose: Not Given Documented by: [id number] Potassium Chloride (Klor-Con M20) 20 meq PO BID [facility] Stop: 01/26/19 21:42 Last Admin: 12/30/18 08:41 Dose: 20 meq Documented by: [id number] Admin: 12/29/18 21:05 Dose: 20 meq Documented by: [id number] Admin: 12/29/18 07:49 Dose: 20 meq Documented by: [id number] Admin: 12/28/18 22:10 Dose: 20 meq Documented by: [id number] Admin: 12/28/18 08:17 Dose: 20 meq Documented by: [id number] Admin: 12/28/18 00:16 Dose: Not Given Documented by: [id number] Pregabalin (Lyrica) 50 mg PO PC [facility] Stop: 01/27/19 08:59 Last Admin: 12/30/18 12:52 Dose: Not Given Documented by: [id number] Admin: 12/30/18 09:49 Dose: 50 mg Documented by: [id number] Admin: 12/29/18 17:36 Dose: 50 mg Documented by: [id number] Admin: 12/29/18 13:13 Dose: Not Given Documented by: [id number] Admin: 12/29/18 07:50 Dose: 50 mg Documented by: [id number] Admin: 12/28/18 18:32 Dose: 50 mg Documented by: [id number] Admin: 12/28/18 14:46 Dose: 50 mg Documented by: [id number] Admin: 12/28/18 08:19 Dose: 50 mg Documented by: [id number] Ranitidine HCl (Zantac) 150 mg PO BID [facility] Stop: 01/26/19 21:42 Last Admin: 12/30/18 08:41 Dose: 150 mg Documented by: [id number] Admin: 12/29/18 21:08 Dose: 150 mg Documented by: [id number] Admin: 12/29/18 07:52 Dose: 150 mg Documented by: [id number] Admin: 12/28/18 22:11 Dose: 150 mg Documented by: [id number] Admin: 12/28/18 08:22 Dose: 150 mg Documented by: [id number] Admin: 12/28/18 00:20 Dose: Not Given Documented by: [id number] Fluticasone/Salmeterol (Advair Diskus 500/50) 1 puffs INH BID [facility] Stop: 01/26/19 21:42 Last Admin: 12/30/18 08:40 Dose: 1 puffs Documented by: [id number] Admin: 12/29/18 21:02 Dose: 1 puffs Documented by: [id number] Admin: 12/29/18 07:55 Dose: 1 puffs Documented by: [id number] Admin: 12/28/18 22:07 Dose: 1 puffs Documented by: [id number] Admin: 12/28/18 08:12 Dose: 1 puffs Documented by: [id number] Admin: 12/28/18 00:16 Dose: Not Given Documented by: [id number] Sennosides (Senokot) 8.6 mg PO BID [facility] Stop: 01/26/19 21:42 Last Admin: 12/30/18 08:41 Dose: 8.6 mg Documented by: [id number] Admin: 12/29/18 21:08 Dose: 8.6 mg Documented by: [id number] Admin: 12/29/18 07:51 Dose: 8.6 mg Documented by: [id number] Admin: 12/28/18 22:10 Dose: 8.6 mg Documented by: [id number] Admin: 12/28/18 08:20 Dose: 8.6 mg Documented by: [id number] Admin: 12/28/18 00:16 Dose: Not Given Documented by: [id number] Sucralfate (Carafate Tab) 1 gm PO BID [facility] Stop: 01/26/19 21:42 Last Admin: 12/30/18 08:42 Dose: 1 gm Documented by: [id number] Admin: 12/29/18 21:02 Dose: 1 gm Documented by: [id number] Admin: 12/29/18 07:47 Dose: 1 gm Documented by: [id number] Admin: 12/28/18 22:09 Dose: 1 gm Documented by: [id number] Admin: 12/28/18 08:15 Dose: 1 gm Documented by: [id number] Admin: 12/28/18 00:15 Dose: Not Given Documented by: [id number] Tiotropium [place] (Spiriva) 1 puffs INH DAILY [facility] Stop: 01/27/19 08:59 Last Admin: 12/30/18 09:50 Dose: 1 puffs Documented by: [id number] Admin: 12/29/18 07:57 Dose: 1 puffs Documented by: [id number] Admin: 12/28/18 08:21 Dose: 1 puffs Documented by: [id number] Trazodone HCl (Desyrel) 50 mg PO HS [facility] Stop: 01/28/19 20:59 Last Admin: 12/29/18 21:15 Dose: 50 mg Documented by: [id number] Warfarin Sodium (Coumadin) 1.5 mg PO [id number] [facility] Stop: 01/27/19 15:59 Last Admin: 12/29/18 17:34 Dose: 1.5 mg Documented by: [id number] Admin: 12/28/18 18:34 Dose: 1.5 mg Documented by: [id number] Discontinued Medications Albuterol (Duoneb) 3 ml INH NOW STA Stop: 12/27/18 15:57 Last Admin: 12/27/18 17:47 Dose: 3 ml Documented by: [id number] Sodium Chloride (Nss 1000ml) 1,000 mls @ 80 mls/hr IV .[id number] [facility] Stop: 12/28/18 10:12 Last Infusion: 12/28/18 13:03 Dose: 0 mls/hr Documented by: [id number] Infusion: 12/28/18 00:43 Dose: 80 mls/hr Documented by: [id number] Infusion: 12/28/18 00:32 Dose: 0 mls/hr Documented by: [id number] Admin: 12/28/18 00:13 Dose: 80 mls/hr Documented by: [id number] Description This is a 21 electrode EEG with a single channel dedicated to limited EKG. The electrodes were placed in accordance with the International 10-20 system. This EEG is done as a bedside recording with simultaneous video analysis of patient movement and behavior. Photic stimulation is performed. Clinically based on the video recording the patient appears to be drowsy and transitioning in and out of sleep the tracing reflects this with the background rhythm in the upper theta range at about 8 Hz maximum generally running about 6-7 Hz coupled with a moderate amplitude central theta delta range rhythm running between 5 and 7 Hz and seen symmetrically over all head regions. There is bilateral low voltage fast activity in the frontal regions At no time during the tracing is or evidence for any paroxysmal disturbances other than some muscle and movement artifact and there is certainly no potentially epileptogenic activity. The tracing was also done at the time where there was no particular video recording of myoclonus or tremor due to the patient's diminished level of consciousness. Photic stimulation induces very little driving response and posterior head regions Interpretation His EEG is probably mildly diffusely abnormal but much of it was performed during drowsiness and may be normal for this state. Of importance is the fact that there is no evidence for lateralized abnormalities or potentially epileptogenic activity and no evidence is seen clinically for myoclonus or abnormal cortical discharges that could correlate with myoclonic seizures Clinical Correlation Mildly diffusely abnormal EEG during wakefulness and drowsiness with slight increased amounts of generalized slow-wave activity and absence of normal background alpha activity. As noted above much of this may reflect normal drowsiness and certainly video recording would suggest this. No evidence for focal or generalized encephalopathy of significant type and no evidence for potential epileptogenic activity Ramon Graves MD
--- NOTE | 2018-12-30 15:23 | Communication Note ---
Date of Service: December 30, 2018 I saw Margareth today she looks well her tramadol is been cut back as has a fentanyl patch renal functions improving and her movements are virtually nonexistent today with the exception of a very slight essential tremor. I did not see any myoclonus during her brief exam but she had just been awakened from a drowsy state Her EEG was done this morning while she was drowsy looks a little slow but am suspicious that this was part of her drowsy and light sleep state rather than anything pathologic and of importance is the fact that there was absolutely no evidence for cortical irritability or anything that might correlate with her myoclonus which parenthetically is really not visible on the video analysis of her tracing today. 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 The balance is going to have to be in the hands of her primary care physician and perhaps pain management physicians if they get involved in future but for now I do not think neurology needs to see her on a regular basis We will therefore sign off the case but would be happy to reassess her during the hospital stay if anything would change Ramon E barbara in the
[2018-12-30] MEDS ORDERED: predniSONE 10 MG TABLET PO ONE (16:04)
[2018-12-30] MEDS: WARFARIN SOD 3 MG TAB PO SCH (16:14)
[2018-12-30] MEDS: TRAZODONE HCL 50 MG TAB PO SCH (21:06)
[2018-12-30] MEDS: MONTELUKAST SODIUM 10 MG TABLET PO SCH (21:07)
[2018-12-30] MEDS: cefTRIAXone SODIUM 1,000 MG in DEXTROSE 5% 50 ML IV SCH (23:32)
[2018-12-31] MEDS: IPRATROPIUM BROMIDE NEB SOLN 0.02% 2.5 ML VIAL INH SCH ×4 (02:00→20:20)
[2018-12-31] MEDS: LEVALBUTEROL HCL 0.63 MG/3 ML NEB NEB SCH ×4 (02:01→20:20)
--- NOTE | 2018-12-31 03:01 | Hospitalist Progress Note ---
Date of Service December 31, 2018 delayed entry date of service 12/30/18 Assessment & Plan (1) Altered mental status: Presented to ER for altered mental status. Reported patient with increased confusion and was eating a tissue today. Patient states has been feeling off balance and tremors for the past week. In ER T: 37.1C, P: 104, R: 17, BP: 116/91, 93% on 4L NC. WBC: 15, Hgb: 13. POC lactic acid: 0.9. negative troponin. CT HEAD: No acute intracranial abnormality. CXR: No acute cardiopulmonary findings. Linear bibasilar opacities which favor atelectasis. Probable metabolic encephalopathy. Possible UTI. hypoglycemia, hypoxia. Urine cultures E. coli Continue ceftriaxone IV day #4 Management of hypoglycemia and hypoxia noted below 12/29 And had at least 2 episodes of confusion today, most likely secondary to metabolic encephalopathy Possible component of delirium next Tramadol reduced to twice a day as needed, fentanyl patch reduced from 50-25 mcg Continue to monitor 12/30 no confusional episodes noted monitor (2) Possible urinary tract infection: Patient reports has been having dysuria for the past week. Hx proteus UTI 11/15/18 which was resistent to cipro and levaquin. Was discharged keflex Management per #1 (3) Bronchitis: States feels like he has had cough for the past month since her previous hospitalization. States intermittent SOB. Continue ceftriaxone, nebs Doxycycline added -- (+) wheeze, add prednisone 40mg PO daily (4) Hypoxia: Pt with hx asthma, obesity hypoventilation syndrome. States feels like he has had cough for the past month since her previous hospitalization. States intermittent SOB and has been using oxygen NC at care home. H/O hospitalization 11/15/18-11/21/18 for flu, cough, hypoxia was treated with vancomycin cefepime and prednisone and was transitioned to doxycycline. CXR: No acute cardiopulmonary findings. Linear bibasilar opacities which favor atelectasis. Management as noted above (5) DM type 2 (diabetes mellitus, type 2): (6) Hypoglycemia: Hx DM II. A1c6.2 on 11/18. Pt on lantus and novolog at [facility]. Reports just had toast early in morning In ER pt with glucose 52 up to 91 -BSGs improving - novolog lantus sliding scale (7) ROSEY (acute kidney injury): ROSEY on CKD III Cr: 1.6. Baseline ~1.3 Creatinine back to baseline after IV fluids (8) Atrial fibrillation: Chronic a-fib. On coumadin P: 104 down to 95. INR 1.3 -continue coumadin, metoprolol -monitor INR (9) Diastolic CHF: Chronic diastolic HF 08/2018 echo: EF: 55% lasix, spironolactone, metolazone were held in light of borderline blood pressure -- euvolemic may need to resume tomorrow (10) Asthma: -continue advair, spiriva, singulair -xopenex/atrovent nebs prn (11) Hypertension: -continue metoprolol (12) Hypothyroidism: -continue levothyroxine (13) Chronic pain: Management of fentanyl patch and tramadol as noted above (14) GERD (gastroesophageal reflux disease): -continue PPI, H2 gabriela, carafate (15) Hyperuricemia: -continue allopurinol. hold colchicine (16) Anxiety: -continue buspirone, duloxetine, trazodone Hold Ativan for now Myoclonus Neurologist consulted Likely secondary to narcotics reduced fentanyl and tramadol improving Continue to monitor DVT Prophylaxis -on coumadin Full code but no mechanical ventilation as per discussion with pt, as is same as prior admission Follows with Dr Lemus for routine care Subjective ff up for AMS, UTI seen resting in bed, comfortable in good spirits, oriented x 3, answers all questions appropriately states breathing, cough is improving abdominal pain, dysuria also improving no other symptoms Physical Exam Vital Signs (Past 24 Hours): Last Vital Signs Temp 36.5 C 12/30/18 23:48 Pulse 114 H 12/31/18 02:01 Resp 14 12/31/18 02:01 BP 122/78 12/30/18 23:48 Pulse Ox 96 12/31/18 02:01 Physical Exam: General- oriented x 3, not in distress, speaks in sentences with no effort or accessory muscle use Eyes- anicteric Neck- no JVD Lungs- (+) mild wheeze BL Heart- normal rate, regular rhythm; no murmurs Abdomen- normal bowel sounds, nondistended, soft, nontender Extremities- no pretibial edema, no calf tenderness Neuro- alert, oriented x 3; no gross focal neurologic deficits Skin- warm & dry Results & Data Laboratory Results noted, reviewed (1) Altered mental status Altered mental status type: unspecified Qualified Code(s): R41.82 - Altered mental status, unspecified
[2018-12-31] MEDS: PANTOprazole 40 MG TAB PO SCH (06:07)
[2018-12-31] MEDS: LEVOTHYROXINE SODIUM 75 MCG TABLET PO SCH (06:07)
[2018-12-31 07:17] LABS: INR 1.4 (0.9-1.1)
[2018-12-31] MEDS: ALLOPURINOL 100 MG TAB PO SCH (08:26)
[2018-12-31] MEDS: METOPROLOL TARTRATE 25 MG TAB PO SCH ×2 (08:27→20:57)
[2018-12-31] MEDS: SUCRALFATE 1 GM TAB PO SCH ×2 (08:27→20:51)
[2018-12-31] MEDS: BusPIRone 15 MG TAB PO SCH ×2 (08:28→21:40)
[2018-12-31] MEDS: dilTIAZem HCL 240 MG CAPCR PO SCH (08:28)
[2018-12-31] MEDS: POTASSIUM CHLORIDE 20 MEQ TABCR PO SCH ×2 (08:28→20:53)
[2018-12-31] MEDS: FERROUS SULFATE 325 MG TAB PO SCH ×2 (08:28→20:53)
[2018-12-31] MEDS: SENNA 8.6 MG TAB PO SCH ×2 (08:28→20:56)
[2018-12-31] MEDS: DOCUSATE SODIUM 100 MG CAP PO SCH ×3 (08:28→20:51)
[2018-12-31] MEDS: PREGABALIN 50 MG CAP PO SCH ×3 (08:29→18:01)
[2018-12-31] MEDS: MAGNESIUM OXIDE 400 MG TAB PO SCH ×2 (08:29→10:11)
[2018-12-31] MEDS: INSULIN GLARGINE SOLOSTAR 100 UNITS/ML 3 ML PEN SC SCH ×2 (08:30→20:54)
[2018-12-31] MEDS: TIOTROPIUM BROMIDE 5 PUFF/90 MCG INH INH SCH (08:30)
[2018-12-31] MEDS: FLUTICASONE/SALMETEROL (ADVAIR) 500/50 INH 14 PUFF INH SCH ×2 (08:30→20:48)
[2018-12-31] MEDS: MICONAZOLE NITRATE POWDER 43 GM TOP SCH ×2 (08:32→20:51)
[2018-12-31] MEDS: INSULIN ASPART 100 UNITS/ML 3 ML PEN SC SCH ×4 (08:32→20:54)
[2018-12-31] MEDS: CHECK FENTANYL PATCH PLACEMENT SCH ×3 (08:33→23:36)
[2018-12-31] MEDS: ARTIFICIAL TEARS OP SCH ×2 (08:33→20:49)
[2018-12-31] MEDS: DULOXETINE HCL 60 MG CAP PO SCH (10:10)
[2018-12-31] MEDS: DOXYCYCLINE HYCLATE 100 MG CAP PO SCH ×2 (11:54→23:35)
[2018-12-31] MEDS: WARFARIN SOD 0.5 MG TAB PO SCH (16:12)
--- NOTE | 2018-12-31 20:08 | Hospitalist Progress Note ---
Date of Service December 31, 2018 delayed entry date of service as noted above Assessment & Plan (1) Altered mental status: Presented to ER for altered mental status. Reported patient with increased confusion and was eating a tissue today. Patient states has been feeling off balance and tremors for the past week. In ER T: 37.1C, P: 104, R: 17, BP: 116/91, 93% on 4L NC. WBC: 15, Hgb: 13. POC lactic acid: 0.9. negative troponin. CT HEAD: No acute intracranial abnormality. CXR: No acute cardiopulmonary findings. Linear bibasilar opacities which favor atelectasis. likely metabolic encephalopathy from UTI, Narcotics Urine cultures E. coli Continue ceftriaxone IV day #5 And had at least 2 episodes while admitted Possible component of delirium Tramadol reduced to twice a day as needed, fentanyl patch reduced from 50-25 mcg significantly improved needs 2 more days of antibiotics to complete 7 days total Tramadol and Fentanyl patch reduced (2) Possible urinary tract infection: E coli UTI management noted above (3) Bronchitis: States feels like he has had cough for the past month since her previous hospitalization. States intermittent SOB. given Doxy, Nebs, Prednisone -- wheezing resolved taper Prednisone continue Doxycycine to complete 7 days wean off oxygen (4) Hypoxia: secondary to Bronchitis Pt with hx asthma, obesity hypoventilation syndrome. States feels like he has had cough for the past month since her previous hospitalization. States intermittent SOB and has been using oxygen NC at custodial. H/O hospitalization 11/15/18-11/21/18 for flu, cough, hypoxia was treated with vancomycin cefepime and prednisone and was transitioned to doxycycline. CXR: No acute cardiopulmonary findings. Linear bibasilar opacities which favor atelectasis. --Management as noted above wean off oxygen (5) DM type 2 (diabetes mellitus, type 2): (6) Hypoglycemia: Hx DM II. A1c6.2 on 11/18. Pt on lantus and novolog at [facility]. Reports just had toast early in morning In ER pt with glucose 52 up to 91 -BSGs improving - novolog lantus sliding scale (7) ROSEY (acute kidney injury): ROSEY on CKD III Cr: 1.6. Baseline ~1.3 Creatinine back to baseline after IV fluids (8) Atrial fibrillation: Chronic a-fib. On coumadin P: 104 down to 95. INR 1.4 -continue coumadin, metoprolol -monitor INR (9) Diastolic CHF: Chronic diastolic HF 08/2018 echo: EF: 55% lasix, spironolactone, metolazone were held in light of borderline blood pressure -- euvolemic may need to resume tomorrow (10) Asthma: -continue advair, spiriva, singulair -xopenex/atrovent nebs prn (11) Hypertension: -continue metoprolol (12) Hypothyroidism: -continue levothyroxine (13) Chronic pain: Management of fentanyl patch and tramadol as noted above (14) GERD (gastroesophageal reflux disease): -continue PPI, H2 gabriela, carafate (15) Hyperuricemia: -continue allopurinol. hold colchicine (16) Anxiety: -continue buspirone, duloxetine, trazodone Hold Ativan for now Myoclonus Neurologist consulted Likely secondary to narcotics reduced fentanyl and tramadol improving Continue to monitor DVT Prophylaxis -on coumadin Full code but no mechanical ventilation as per discussion with pt, as is same as prior admission Follows with Dr Lemus for routine care Disposition return to SNF when medically stable, likely in 1-2 days Subjective ff up for altered mental status sitting up in chair, comfortable in good spirits states she continues to feel improved breathing better, less cough, no sputum no abdominal pain, dysuria no other symptoms Physical Exam Vital Signs (Past 24 Hours): Last Vital Signs Temp 36.8 C 12/31/18 19:18 Pulse 92 H 12/31/18 19:18 Resp 20 12/31/18 19:18 BP 97/64 L 12/31/18 19:18 Pulse Ox 92 12/31/18 19:18 Physical Exam: General- oriented x 3, not in distress, speaks in sentences with no effort or accessory muscle use Eyes- anicteric Neck- no JVD Lungs- clear breath sounds BL no wheezing, crackles Heart- normal rate, regular rhythm; no murmurs Abdomen- normal bowel sounds, nondistended, soft, nontender Extremities- no pretibial edema, no calf tenderness Neuro- alert, oriented x 3; no gross focal neurologic deficits Skin- warm & dry Results & Data Laboratory Results noted, reviewed (1) Altered mental status Altered mental status type: unspecified Qualified Code(s): R41.82 - Altered mental status, unspecified
[2018-12-31] MEDS ORDERED: WARFARIN SOD 0.5 MG TAB PO ONE (20:30)
[2018-12-31] MEDS ORDERED: predniSONE 20 MG TAB PO ONE (20:30)
[2018-12-31] MEDS: MONTELUKAST SODIUM 10 MG TABLET PO SCH (20:56)
[2018-12-31] MEDS: TRAZODONE HCL 50 MG TAB PO SCH (21:40)
[2018-12-31] MEDS: cefTRIAXone SODIUM 1,000 MG in DEXTROSE 5% 50 ML IV SCH (23:35)
[2019-01-01] MEDS: LEVALBUTEROL HCL 0.63 MG/3 ML NEB NEB SCH ×4 (01:52→19:42)
[2019-01-01] MEDS: IPRATROPIUM BROMIDE NEB SOLN 0.02% 2.5 ML VIAL INH SCH ×4 (01:52→19:40)
[2019-01-01] MEDS: PANTOprazole 40 MG TAB PO SCH (05:50)
[2019-01-01] MEDS: LEVOTHYROXINE SODIUM 75 MCG TABLET PO SCH (05:50)
[2019-01-01 06:25] LABS: INR 1.7 (0.9-1.1)
[2019-01-01] MEDS: CHECK FENTANYL PATCH PLACEMENT SCH ×3 (07:16→23:34)
[2019-01-01] MEDS: dilTIAZem HCL 240 MG CAPCR PO SCH (07:25)
[2019-01-01] MEDS: POTASSIUM CHLORIDE 20 MEQ TABCR PO SCH (07:27)
[2019-01-01] MEDS: FLUTICASONE/SALMETEROL (ADVAIR) 500/50 INH 14 PUFF INH SCH ×2 (07:27→20:31)
[2019-01-01] MEDS: FERROUS SULFATE 325 MG TAB PO SCH ×2 (07:27→20:33)
[2019-01-01] MEDS: BusPIRone 15 MG TAB PO SCH ×2 (07:28→20:33)
[2019-01-01] MEDS: ALLOPURINOL 100 MG TAB PO SCH (07:29)
[2019-01-01] MEDS: SENNA 8.6 MG TAB PO SCH ×2 (07:29→20:33)
[2019-01-01] MEDS: MAGNESIUM OXIDE 400 MG TAB PO SCH (07:29)
[2019-01-01] MEDS: DOCUSATE SODIUM 100 MG CAP PO SCH ×2 (07:29→20:32)
[2019-01-01] MEDS: DULOXETINE HCL 60 MG CAP PO SCH (07:30)
[2019-01-01] MEDS: METOPROLOL TARTRATE 25 MG TAB PO SCH ×2 (07:30→20:33)
[2019-01-01] MEDS: SUCRALFATE 1 GM TAB PO SCH ×2 (07:30→20:33)
[2019-01-01] MEDS: TIOTROPIUM BROMIDE 5 PUFF/90 MCG INH INH SCH (07:31)
[2019-01-01] MEDS: GUAIFENESIN/DEXTROM SYRUP 200MG/20MG 10ML UDC PO PRN (07:31)
[2019-01-01] MEDS: ARTIFICIAL TEARS OP SCH ×2 (07:32→20:32)
[2019-01-01] MEDS: predniSONE 10 MG TABLET PO SCH (07:32)
[2019-01-01] MEDS: MICONAZOLE NITRATE POWDER 43 GM TOP SCH ×2 (07:33→20:36)
[2019-01-01] MEDS: POLYETHYLENE (MIRALAX) 17 GM PACK PO SCH (07:43)
[2019-01-01] MEDS: PREGABALIN 50 MG CAP PO SCH ×3 (07:43→17:25)
[2019-01-01] MEDS: INSULIN ASPART 100 UNITS/ML 3 ML PEN SC SCH ×4 (09:02→21:21)
[2019-01-01] MEDS: INSULIN GLARGINE SOLOSTAR 100 UNITS/ML 3 ML PEN SC SCH (09:03)
[2019-01-01] MEDS: DOXYCYCLINE HYCLATE 100 MG CAP PO SCH ×2 (11:27→23:30)
[2019-01-01 12:35] LABS: BUN Creatinine Ratio 22.5 (10-20); Calcium 9.1 mg/dl (8.5-10.1); Creatinine Clr Calc Pharmacy 43.8 ml/min; Est GFR (African American) 41.5; Est GFR (Non-African American) 35.8; Potassium 5.4 mmol/L (3.5-5.1)
[2019-01-01 12:56] LABS: Basophils # (auto) 0.01 K/uL (0-0.2); Basophils % (auto) 0.1 %; Hematocrit (blood only) 37.7 % (37-47); Hemoglobin 12.8 g/dL (12.0-16.0); Lymphocytes # (auto) 1.16 K/uL (1.2-3.4); Lymphocytes % (auto) 11.1 %; Mean Corpuscular Volume 99.2 fL (80-100); Mean Platelet Volume 11.7 fL (7.4-10.4); Monocytes # (auto) 0.34 K/uL (0.11-0.59); Monocytes % (auto) 3.3 %; Neutrophils % (auto) 84.5 %; Platelet Count 259 K/uL (130-400); RDW Coefficient of Variation 15.5 % (11.5-14.5); RDW Standard Deviation 55.8 fL (36.4-46.3); White Blood Count 10.41 K/uL (4.8-10.8)
[2019-01-01] MEDS: WARFARIN SOD 3 MG TAB PO SCH (15:34)
--- NOTE | 2019-01-01 16:29 | Hospitalist Progress Note ---
Date of Service January 01, 2019 Assessment & Plan (1) Altered mental status: Presented to ER for altered mental status. Reported patient with increased confusion and was eating a tissue today. Patient states has been feeling off balance and tremors for the past week. Likely metabolic encephalopathy from UTI, Narcotics Urine cultures E. coli-sensitive to cephalosporin Continue ceftriaxone IV day #5 Denies any urinary symptoms And had at least 2 episodes while admitted Possible component of delirium Tramadol reduced to twice a day as needed, fentanyl patch reduced from 50-25 mcg Encephalopathy is cleared (2) Possible urinary tract infection: Ruled in for E. coli UTI E coli UTI management noted above (3) Bronchitis: States feels like he has had cough for the past month since her previous hospitalization. States intermittent SOB. given Doxy, Nebs, Prednisone Has been on steroid taper Doxycycline to continue 7 days in total (4) Hypoxia: secondary to Bronchitis Pt with hx asthma, obesity hypoventilation syndrome. States feels like he has had cough for the past month since her previous hospitalization. States intermittent SOB and has been using oxygen NC at [facility]term. H/O hospitalization 11/15/18-11/21/18 for flu, cough, hypoxia was treated with vancomycin cefepime and prednisone and was transitioned to doxycycline. Clinically a lot better (5) DM type 2 (diabetes mellitus, type 2): (6) Hypoglycemia: Hx DM II. A1c6.2 on 11/18. Pt on lantus and novolog at [facility]. Reports just had toast early in morning In ER pt with glucose 52 up to 91 -BSGs improving - novolog lantus sliding scale (7) ROSEY (acute kidney injury): ROSEY on CKD III Cr: 1.6. Baseline ~1.3 Creatinine back to baseline after IV fluids (8) Atrial fibrillation: Chronic a-fib. On coumadin P: 104 down to 95. INR 1.4 -continue coumadin, metoprolol -monitor INR-1.7 today on 01/01 (9) Diastolic CHF: Chronic diastolic HF 08/2018 echo: EF: 55% lasix, spironolactone, metolazone were held in light of borderline blood pressure -- euvolemic may need to resume tomorrow (10) Asthma: -continue advair, spiriva, singulair -xopenex/atrovent nebs prn (11) Hypertension: -continue metoprolol (12) Hypothyroidism: -continue levothyroxine (13) Chronic pain: Management of fentanyl patch and tramadol as noted above (14) GERD (gastroesophageal reflux disease): -continue PPI, H2 gabriela, carafate (15) Hyperuricemia: -continue allopurinol. hold colchicine (16) Anxiety: -continue buspirone, duloxetine, trazodone Hold Ativan for now Myoclonus Neurologist consulted Likely secondary to narcotics reduced fentanyl and tramadol improving Continue to monitor DVT Prophylaxis -on coumadin Full code but no mechanical ventilation as per discussion with pt, as is same as prior admission Follows with Dr Lemus for routine care Disposition return to SNF when medically stable, likely in 1-2 days Subjective 01/01 The patient was seen and examined the medical floor Sitting on a chair without any symptoms No confusion Has been ambulating well Physical Exam Vital Signs (Past 24 Hours): Last Vital Signs Temp 36.4 C L 01/01/19 14:45 Pulse 101 H 01/01/19 14:45 Resp 20 01/01/19 14:45 BP 108/68 01/01/19 14:45 Pulse Ox 94 01/01/19 14:45 Physical Exam: No apparent distress at rest Constitutional: WD/WN, vitals as above Eyes: PERRL, conjunctivae normal, anicteric sclerae ENMT: external ear and nose normal, oropharynx normal Neck: trachea midline, no thyromegaly Respiratory: normal respiratory effort Auscultation: lungs clear to auscultation bilaterally and + diminished lung sounds Cardiovascular: Rate/Rhythm: regular rate and regular rhythm Heart Sounds: normal S1 and normal S2 Gastrointestinal (Abdomen): Inspection/Auscultation: abdomen normal to inspection Neurologic: PERRL, EOMI, accommodation nl, no face palsy, no dysarthria Results & Data Laboratory Results Short CBC 01/01/19 Range/Units 05:24 WBC 10.41 (4.8-10.8) K/uL Hgb 12.8 (12.0-16.0) g/dL Hct 37.7 (37-47) % Plt Count 259 (130-400) K/uL [facility] 01/01/19 05:24 Sodium 132 L Potassium 5.4 H Chloride 102 Carbon Dioxide 26 BUN 32 H Creatinine 1.41 H Glucose 210 H Calcium 9.1 Medications Administered Current Inpatient Medications Acetaminophen (Tylenol) 650 mg PO Q4H PRN PRN Reason: Pain or Fever Stop: 01/26/19 21:42 Last Admin: 12/28/18 08:20 Dose: 650 mg Documented by: Allopurinol (Zyloprim) 200 mg PO QAM COUNTS INCLUDE 234 BEDS AT [facility] Stop: 01/27/19 08:59 Last Admin: 01/01/19 07:29 Dose: 200 mg Documented by: Artificial Tears (Artificial Tears) 1 drops OP BID COUNTS INCLUDE 234 BEDS AT [facility] Stop: 01/27/19 08:59 Last Admin: 01/01/19 07:32 Dose: 1 drops Documented by: Buspirone HCl (Buspar) 15 mg PO BID COUNTS INCLUDE 234 BEDS AT [facility] Stop: 01/26/19 21:42 Last Admin: 01/01/19 07:28 Dose: 15 mg Documented by: Dextrose (Dextrose 50%) 25 - 50 ml IV UD PRN; Protocol PRN Reason: Hypoglycemia Protocol Stop: 01/26/19 21:42 [facility] Cd[facility] Stop: 01/27/19 08:59 Last Admin: 01/01/19 07:25 Dose: 240 mg Documented by: Docusate Sodium (Colace) 100 mg PO BID COUNTS INCLUDE 234 BEDS AT [facility] Stop: 01/26/19 21:42 Last Admin: 01/01/19 07:29 Dose: 100 mg Documented by: Doxycycline Hyclate (Vibramycin) 100 mg PO Q12H COUNTS INCLUDE 234 BEDS AT [facility] Stop: 01/06/19 10:59 Last Admin: 01/01/19 11:27 Dose: 100 mg Documented by: Duloxetine HCl (Cymbalta) 60 mg PO QAM COUNTS INCLUDE 234 BEDS AT [facility] Stop: 01/27/19 08:59 Last Admin: 01/01/19 07:30 Dose: 60 mg Documented by: Fentanyl (Duragesic) 25 mcg TD Q72H COUNTS INCLUDE 234 BEDS AT [facility] Stop: 01/12/19 16:59 Last Admin: 12/29/18 17:39 Dose: 25 mcg Documented by: Ferrous Sulfate (Feosol) 325 mg PO BID COUNTS INCLUDE 234 BEDS AT [facility] Stop: 01/26/19 21:42 Last Admin: 01/01/19 07:27 Dose: 325 mg Documented by: Glucagon (Glucagen) 1 mg SQ UD PRN; Protocol PRN Reason: Hypoglycemia Protocol Stop: 01/26/19 21:42 Glucose (Glucose 40%) 15 - 30 gm PO UD PRN; Protocol PRN Reason: Hypoglycemia Protocol Stop: 01/26/19 21:42 Glucose (Dex4 Glucose) 4 - 8 tabs PO UD PRN; Protocol PRN Reason: Hypoglycemia Protocol Stop: 01/26/19 21:42 Guaifenesin/Dextromethorphan (Robitussin Cough-Chest Dm) 10 ml PO QID PRN PRN Reason: Cough Stop: 01/27/19 20:27 Last Admin: 01/01/19 07:31 Dose: 10 ml Documented by: Ceftriaxone Sodium 1,000 mg/ (Dextrose) 50 mls @ 100 mls/hr IV Q24H ORACIO; Protocol Stop: 01/01/19 22:59 Last Infusion: 01/01/19 00:05 Dose: Infused Documented by: Insulin Aspart (Novolog Flexpen) 0 units SC ACHS COUNTS INCLUDE 234 BEDS AT [facility] Stop: 01/26/19 22:59 Last Admin: 01/01/19 12:25 Dose: 9 units Documented by: Insulin Glargine (Lantus Solostar Pen) 10 units SC DAILY ORACIO Stop: 02/01/19 08:59 Insulin Glargine (Lantus Solostar Pen) 20 units SC PM ORACIO Stop: 01/31/19 20:59 Ipratropium Ovid (Atrovent 0.02% 0.5mg/2.5ml) 0.5 mg INH Q6R COUNTS INCLUDE 234 BEDS AT [facility] Stop: 01/27/19 01:59 Last Admin: 01/01/19 13:49 Dose: 0.5 mg Documented by: Levalbuterol HCl (Xopenex 0.63 Mg/3 Ml Neb) 0.63 mg NEB Q6R ORACIO Stop: 01/27/19 01:59 Last Admin: 01/01/19 13:49 Dose: 0.63 mg Documented by: Levothyroxine Sodium (Synthroid) 75 mcg PO DAILYBB COUNTS INCLUDE 234 BEDS AT [facility] Stop: 01/27/19 06:29 Last Admin: 01/01/19 05:50 Dose: 75 mcg Documented by: Magnesium Oxide (Mag-Ox) 400 mg PO QAM COUNTS INCLUDE 234 BEDS AT [facility] Stop: 01/27/19 08:59 Last Admin: 01/01/19 07:29 Dose: 400 mg Documented by: Metoprolol Tartrate (Lopressor) 25 mg PO BID COUNTS INCLUDE 234 BEDS AT [facility] Stop: 01/26/19 21:42 Last Admin: 01/01/19 07:30 Dose: 25 mg Documented by: Miconazole Nitrate (Desenex) 1 appln TOP BID ORACIO Stop: 01/26/19 21:42 Last Admin: 01/01/19 07:33 Dose: 1 appln Documented by: Miscellaneous (Fentanyl Patch Check Placement) 1 ea N/A QS ORCAIO Stop: 01/27/19 00:00 Last Admin: 01/01/19 15:36 Dose: 1 ea Documented by: Miscellaneous (Carbohydrates For Hypoglycemia) 15 - 30 gm PO UD PRN PRN Reason: Hypoglycemia Treatment Stop: 01/26/19 21:42 Miscellaneous (Fentanyl Patch Remove & Waste) 1 ea N/A Q72H ORACIO Stop: 01/28/19 16:58 Last Admin: 12/29/18 17:39 Dose: 1 ea Documented by: Montelukast Sodium (Singulair) 10 mg PO PM ORACIO Stop: 01/26/19 21:42 Last Admin: 12/31/18 20:56 Dose: 10 mg Documented by: Pantoprazole Sodium (Protonix) 40 mg PO DAILYBB ORACIO Stop: 01/27/19 06:29 Last Admin: 01/01/19 05:50 Dose: 40 mg Documented by: Polyethylene Glycol (Miralax Powder Packet) 17 gm PO Q48H ORACIO Stop: 01/27/19 08:59 Last Admin: 01/01/19 07:43 Dose: 17 gm Documented by: Prednisone (Prednisone) 30 mg PO DAILY ORACIO Stop: 01/31/19 08:59 Last Admin: 01/01/19 07:32 Dose: 30 mg Documented by: Pregabalin (Lyrica) 50 mg PO PC ORACIO Stop: 01/27/19 08:59 Last Admin: 01/01/19 12:26 Dose: Not Given Documented by: Ranitidine HCl (Zantac) 150 mg PO BID ORACIO Stop: 01/26/19 21:42 Last Admin: 01/01/19 07:30 Dose: 150 mg Documented by: Fluticasone/Salmeterol (Advair Diskus 500/50) 1 puffs INH BID ORACIO Stop: 01/26/19 21:42 Last Admin: 01/01/19 07:27 Dose: 1 puffs Documented by: Sennosides (Senokot) 8.6 mg PO BID ORACIO Stop: 01/26/19 21:42 Last Admin: 01/01/19 07:29 Dose: 8.6 mg Documented by: Sucralfate (Carafate Tab) 1 gm PO BID COUNTS INCLUDE 234 BEDS AT [facility] Stop: 01/26/19 21:42 Last Admin: 01/01/19 07:30 Dose: 1 gm Documented by: Tiotropium Ovid (Spiriva) 1 puffs INH DAILY COUNTS INCLUDE 234 BEDS AT [facility] Stop: 01/27/19 08:59 Last Admin: 01/01/19 07:31 Dose: 1 puffs Documented by: Tramadol HCl (Ultram) 50 mg PO Q12H PRN PRN Reason: Pain, Moderate 5-10 Stop: 01/26/19 21:42 Trazodone HCl (Desyrel) 50 mg PO [facility] Stop: 01/28/19 20:59 Last Admin: 12/31/18 21:40 Dose: 50 mg Documented by: Warfarin Sodium (Coumadin) 3 mg PO MoWe@1600 COUNTS INCLUDE 234 BEDS AT [facility] Stop: 01/29/19 15:59 Last Admin: 01/01/19 15:34 Dose: 3 mg Documented by: Warfarin Sodium (Coumadin) 1.5 mg PO SuTuThFrSa@1600 COUNTS INCLUDE 234 BEDS AT [facility] Stop: 01/27/19 15:59 Last Admin: 12/31/18 16:12 Dose: 1.5 mg Documented by: (1) Altered mental status Altered mental status type: unspecified Qualified Code(s): R41.82 - Altered mental status, unspecified
[2019-01-01] MEDS: fentaNYL 25 MCG/HR TDSY TD SCH (17:23)
[2019-01-01] MEDS: TRAZODONE HCL 50 MG TAB PO SCH (20:33)
[2019-01-01] MEDS: MONTELUKAST SODIUM 10 MG TABLET PO SCH (20:33)
[2019-01-01] MEDS ORDERED: INSULIN GLARGINE SOLOSTAR 100 UNITS/ML 3 ML PEN SC SCH (21:00)
[2019-01-01] MEDS ORDERED: COUGH DROP (SUGAR FREE) LOZ 24 LOZ/1 BOX BUCCAL PRN (23:15)
[2019-01-02] MEDS: LEVALBUTEROL HCL 0.63 MG/3 ML NEB NEB SCH ×2 (01:42→07:11)
[2019-01-02] MEDS: IPRATROPIUM BROMIDE NEB SOLN 0.02% 2.5 ML VIAL INH SCH ×2 (01:43→07:10)
[2019-01-02] MEDS: PANTOprazole 40 MG TAB PO SCH (05:50)
[2019-01-02] MEDS: LEVOTHYROXINE SODIUM 75 MCG TABLET PO SCH (05:50)
[2019-01-02] MEDS: ARTIFICIAL TEARS OP SCH (08:23)
[2019-01-02] MEDS: DOCUSATE SODIUM 100 MG CAP PO SCH (08:23)
[2019-01-02] MEDS: PREGABALIN 50 MG CAP PO SCH ×2 (08:23→12:28)
[2019-01-02] MEDS: dilTIAZem HCL 240 MG CAPCR PO SCH (08:24)
[2019-01-02] MEDS: CHECK FENTANYL PATCH PLACEMENT SCH (08:24)
[2019-01-02] MEDS: FLUTICASONE/SALMETEROL (ADVAIR) 500/50 INH 14 PUFF INH SCH (08:24)
[2019-01-02] MEDS: FERROUS SULFATE 325 MG TAB PO SCH (08:25)
[2019-01-02] MEDS: SUCRALFATE 1 GM TAB PO SCH (08:25)
[2019-01-02] MEDS: BusPIRone 15 MG TAB PO SCH (08:26)
[2019-01-02] MEDS: SENNA 8.6 MG TAB PO SCH (08:26)
[2019-01-02] MEDS: MAGNESIUM OXIDE 400 MG TAB PO SCH (08:27)
[2019-01-02] MEDS: ALLOPURINOL 100 MG TAB PO SCH (08:27)
[2019-01-02] MEDS: DULOXETINE HCL 60 MG CAP PO SCH (08:27)
[2019-01-02] MEDS: METOPROLOL TARTRATE 25 MG TAB PO SCH (08:28)
[2019-01-02] MEDS: predniSONE 10 MG TABLET PO SCH (08:28)
[2019-01-02] MEDS: TIOTROPIUM BROMIDE 5 PUFF/90 MCG INH INH SCH (08:31)
[2019-01-02] MEDS: MICONAZOLE NITRATE POWDER 43 GM TOP SCH (08:32)
[2019-01-02] MEDS: INSULIN ASPART 100 UNITS/ML 3 ML PEN SC SCH ×2 (08:33→12:27)
[2019-01-02] MEDS ORDERED: INSULIN GLARGINE SOLOSTAR 100 UNITS/ML 3 ML PEN SC SCH (09:00)
[2019-01-02 09:11] LABS: Basophils # (auto) 0.01 K/uL (0-0.2); Basophils % (auto) 0.1 %; Hematocrit (blood only) 39.7 % (37-47); Hemoglobin 13.5 g/dL (12.0-16.0); Immature Granulocytes # (auto) 0.13 K/uL (0.00-0.02); Immature Granulocytes % (auto) 0.8 %; Lymphocytes # (auto) 2.31 K/uL (1.2-3.4); Lymphocytes % (auto) 13.5 %; Mean Corpuscular Volume 99.7 fL (80-100); Mean Platelet Volume 11.3 fL (7.4-10.4); Monocytes # (auto) 1.08 K/uL (0.11-0.59); Monocytes % (auto) 6.3 %; Neutrophils # (auto) 13.63 K/uL (1.4-6.5); Neutrophils % (auto) 79.3 %; Nucleated RBC # (auto) 0.02 K/uL (0-0); Nucleated RBC % (auto) 0.1 %; Platelet Count 275 K/uL (130-400); RDW Coefficient of Variation 15.6 % (11.5-14.5); RDW Standard Deviation 56.8 fL (36.4-46.3); Red Blood Count 3.98 M/uL (4.2-5.4); White Blood Count 17.16 K/uL (4.8-10.8)
[2019-01-02 09:27] LABS: Calcium 9.4 mg/dl (8.5-10.1); Creatinine Clr Calc Pharmacy 40.3 ml/min; Est GFR (African American) 37.6; Est GFR (Non-African American) 32.5; Potassium 5.3 mmol/L (3.5-5.1)
[2019-01-02] MEDS: DOXYCYCLINE HYCLATE 100 MG CAP PO SCH (11:07)
--- NOTE | 2019-01-02 12:58 | Hospitalist Progress Note ---
Date of Service January 02, 2019 Assessment & Plan (1) Altered mental status: Presented to ER for altered mental status. Reported patient with increased confusion and was eating a tissue today. Patient states has been feeling off balance and tremors for the past week. Likely metabolic encephalopathy from UTI, Narcotics Urine cultures E. coli-sensitive to cephalosporin Continue ceftriaxone IV day #6 Denies any urinary symptoms And had at least 2 episodes while admitted Possible component of delirium Tramadol reduced to twice a day as needed, fentanyl patch reduced from 50-25 mcg Encephalopathy is cleared (2) Possible urinary tract infection: Ruled in for E. coli UTI E coli UTI management noted above (3) Bronchitis: States feels like he has had cough for the past month since her previous hospitalization. States intermittent SOB. given Doxy, Nebs, Prednisone Has been on steroid taper Doxycycline to continue 7 days in total (4) Hypoxia: secondary to Bronchitis Pt with hx asthma, obesity hypoventilation syndrome. States feels like he has had cough for the past month since her previous hospitalization. States intermittent SOB and has been using oxygen NC at alf. H/O hospitalization 11/15/18-11/21/18 for flu, cough, hypoxia was treated with vancomycin cefepime and prednisone and was transitioned to doxycycline. Clinically a lot better and does not have any more low saturation (5) DM type 2 (diabetes mellitus, type 2): (6) Hypoglycemia: Hx DM II. A1c6.2 on 11/18. Pt on lantus and novolog at [facility]. Reports just had toast early in morning In ER pt with glucose 52 up to 91 -BSGs improving - novolog lantus sliding scale (7) ROSEY (acute kidney injury): ROSEY on CKD III Cr: 1.6. Baseline ~1.3 Creatinine back to baseline after IV fluids (8) Atrial fibrillation: Chronic a-fib. On coumadin P: 104 down to 95. INR 1.4 -continue coumadin, metoprolol -monitor INR-1.7 today on 01/01 INR is not yet therapeutic (9) Diastolic CHF: Chronic diastolic HF 08/2018 echo: EF: 55% lasix, spironolactone, metolazone were held in light of borderline blood pressure -- euvolemic may need to resume tomorrow Will be transferred to [facility] this afternoon (10) Asthma: -continue advair, spiriva, singulair -xopenex/atrovent nebs prn (11) Hypertension: -continue metoprolol (12) Hypothyroidism: -continue levothyroxine (13) Chronic pain: Management of fentanyl patch and tramadol as noted above (14) GERD (gastroesophageal reflux disease): -continue PPI, H2 gabriela, carafate (15) Hyperuricemia: -continue allopurinol. hold colchicine (16) Anxiety: -continue buspirone, duloxetine, trazodone Hold Ativan for now Myoclonus Neurologist consulted Likely secondary to narcotics reduced fentanyl and tramadol improving Continue to monitor DVT Prophylaxis -on coumadin Full code but no mechanical ventilation as per discussion with pt, as is same as prior admission Follows with Dr Lemus for routine care Disposition return to SNF when medically stable, likely in 1-2 days Subjective 01/01 The patient was seen and examined the medical floor Sitting on a chair without any symptoms No confusion Has been ambulating well 01/02 The patient was seen and examined the medical floor She denies any symptoms today No more confusion and she has been emanating well She is ready to be discharged from the hospital Physical Exam Vital Signs (Past 24 Hours): Last Vital Signs Temp 36.8 C 01/02/19 11:51 Pulse 103 H 01/02/19 11:51 Resp 18 01/02/19 11:51 BP 116/73 01/02/19 11:51 Pulse Ox 92 01/02/19 11:51 Physical Exam: No apparent distress at rest. Sitting in a chair Constitutional: WD/WN, vitals as above Eyes: PERRL, conjunctivae normal, anicteric sclerae ENMT: external ear and nose normal, oropharynx normal Neck: trachea midline, no thyromegaly Respiratory: normal respiratory effort Auscultation: lungs clear to auscultation bilaterally and + diminished lung sounds Cardiovascular: Rate/Rhythm: regular rate and regular rhythm Heart Sounds: normal S1 and normal S2 Gastrointestinal (Abdomen): Inspection/Auscultation: abdomen normal to ins pection Musculoskeletal: No acute arthritis Neurologic: PERRL, EOMI, accommodation nl, no face palsy, no dysarthria Psychiatric: A+Ox3, euthymic affect Results & Data Laboratory Results Short CBC 03/29/19 03/30/19 03/31/19 Range/Units 16:10 05:59 06:05 WBC (4.8-10.8) K/uL Hgb (12.0-16.0) g/dL Hct (37-47) % Plt Count (130-400) K/uL Potassium 4.0 4.0 4.4 (3.5-5.1) mmol/L 01/01/19 01/02/19 01/02/19 Range/Units 05:24 08:59 08:59 WBC 17.16 H (4.8-10.8) K/uL Hgb 13.5 (12.0-16.0) g/dL Hct 39.7 (37-47) % Plt Count 275 (130-400) K/uL Potassium 5.4 H 5.3 H (3.5-5.1) mmol/L BMP 01/02/19 08:59 Sodium 132 L Potassium 5.3 H Chloride 101 Carbon Dioxide 25 BUN 37 H Creatinine 1.53 H Glucose 220 H Calcium 9.4 Medications Administered Current Inpatient Medications Acetaminophen (Tylenol) 650 mg PO Q4H PRN PRN Reason: Pain or Fever Stop: 01/26/19 21:42 Last Admin: 12/28/18 08:20 Dose: 650 mg Documented by: Allopurinol (Zyloprim) 200 mg PO QAM [facility] Stop: 01/27/19 08:59 Last Admin: 01/02/19 08:27 Dose: 200 mg Documented by: Artificial Tears (Artificial Tears) 1 drops OP BID [facility] Stop: 01/27/19 08:59 Last Admin: 01/02/19 08:23 Dose: 1 drops Documented by: Buspirone HCl (Buspar) 15 mg PO BID [facility] Stop: 01/26/19 21:42 Last Admin: 01/02/19 08:26 Dose: 15 mg Documented by: Dextrose (Dextrose 50%) 25 - 50 ml IV UD PRN; Protocol PRN Reason: Hypoglycemia Protocol Stop: 01/26/19 21:42 Diltiazem HCl (Cardizem Cd) 240 mg PO QAM [facility] Stop: 01/27/19 08:59 Last Admin: 01/02/19 08:24 Dose: 240 mg Documented by: Docusate Sodium (Colace) 100 mg PO BID [facility] Stop: 01/26/19 21:42 Last Admin: 01/02/19 08:23 Dose: 100 mg Documented by: Doxycycline Hyclate (Vibramycin) 100 mg PO Q12H [facility] Stop: 01/06/19 10:59 Last Admin: 01/02/19 11:07 Dose: 100 mg Documented by: Duloxetine HCl (Cymbalta) 60 mg PO QAM [facility] Stop: 01/27/19 08:59 Last Admin: 01/02/19 08:27 Dose: 60 mg Documented by: Fentanyl (Duragesic) 25 mcg TD Q72H [facility] Stop: 01/12/19 16:59 Last Admin: 01/01/19 17:23 Dose: 25 mcg Documented by: Ferrous Sulfate (Feosol) 325 mg PO BID [facility] Stop: 01/26/19 21:42 Last Admin: 01/02/19 08:25 Dose: 325 mg Documented by: Glucagon (Glucagen) 1 mg SQ UD PRN; Protocol PRN Reason: Hypoglycemia Protocol Stop: 01/26/19 21:42 Glucose (Glucose 40%) 15 - 30 gm PO UD PRN; Protocol PRN Reason: Hypoglycemia Protocol Stop: 01/26/19 21:42 Glucose (Dex4 Glucose) 4 - 8 tabs PO UD PRN; Protocol PRN Reason: Hypoglycemia Protocol Stop: 01/26/19 21:42 Guaifenesin/Dextromethorphan (Robitussin Cough-Chest Dm) 10 ml PO QID PRN PRN Reason: Cough Stop: 01/27/19 20:27 Last Admin: 01/01/19 07:31 Dose: 10 ml Documented by: Insulin Aspart (Novolog Flexpen) 0 units SC ACHS [facility] Stop: 01/26/19 22:59 Last Admin: 01/02/19 12:27 Dose: 4 units Documented by: Insulin Glargine (Lantus Solostar Pen) 10 units SC DAILY [facility] Stop: 02/01/19 08:59 Last Admin: 01/02/19 08:33 Dose: 10 units Documented by: Insulin Glargine (Lantus Solostar Pen) 20 units SC PM [facility] Stop: 01/31/19 20:59 Last Admin: 01/01/19 21:22 Dose: 20 units Documented by: Ipratropium Phelps (Atrovent 0.02% 0.5mg/2.5ml) 0.5 mg INH Q6R [facility] Stop: 01/27/19 01:59 Last Admin: 01/02/19 07:10 Dose: 0.5 mg Documented by: Levalbuterol HCl (Xopenex 0.63 Mg/3 Ml Neb) 0.63 mg NEB Q6R [facility] Stop: 01/27/19 01:59 Last Admin: 01/02/19 07:11 Dose: 0.63 mg Documented by: Levothyroxine Sodium (Synthroid) 75 mcg PO DAILYBB [facility] Stop: 01/27/19 06:29 Last Admin: 01/02/19 05:50 Dose: 75 mcg Documented by: Magnesium Oxide (Mag-Ox) 400 mg PO QAM [facility] Stop: 01/27/19 08:59 Last Admin: 01/02/19 08:27 Dose: 400 mg Documented by: Menthol (Nice) 1 huan BUCCAL NOW PRN PRN Reason: Sore Throat Stop: 01/31/19 23:14 Last Admin: 01/02/19 08:23 Dose: 1 huan Documented by: Metoprolol Tartrate (Lopressor) 25 mg PO BID [facility] Stop: 01/26/19 21:42 Last Admin: 01/02/19 08:28 Dose: 25 mg Documented by: Miconazole Nitrate (Desenex) 1 appln TOP BID [facility] Stop: 01/26/19 21:42 Last Admin: 01/02/19 08:32 Dose: 1 appln Documented by: Miscellaneous (Fentanyl Patch Check Placement) 1 ea N/A QS [facility] Stop: 01/27/19 00:00 Last Admin: 01/02/19 08:24 Dose: 1 ea Documented by: Miscellaneous (Carbohydrates For Hypoglycemia) 15 - 30 gm PO UD PRN PRN Reason: Hypoglycemia Treatment Stop: 01/26/19 21:42 Miscellaneous (Fentanyl Patch Remove & Waste) 1 ea N/A Q72H [facility] Stop: 01/28/19 16:58 Last Admin: 01/01/19 17:23 Dose: 1 ea Documented by: Montelukast Sodium (Singulair) 10 mg PO PM [facility] Stop: 01/26/19 21:42 Last Admin: 01/01/19 20:33 Dose: 10 mg Documented by: Pantoprazole Sodium (Protonix) 40 mg PO DAILYBB [facility] Stop: 01/27/19 06:29 Last Admin: 01/02/19 05:50 Dose: 40 mg Documented by: Polyethylene Glycol (Miralax Powder Packet) 17 gm PO Q48H [facility] Stop: 01/27/19 08:59 Last Admin: 01/01/19 07:43 Dose: 17 gm Documented by: Prednisone (Prednisone) 30 mg PO DAILY [facility] Stop: 01/31/19 08:59 Last Admin: 01/02/19 08:28 Dose: 30 mg Documented by: Pregabalin (Lyrica) 50 mg PO PC [facility] Stop: 01/27/19 08:59 Last Admin: 01/02/19 12:28 Dose: Not Given Documented by: Ranitidine HCl (Zantac) 150 mg PO BID [facility] Stop: 01/26/19 21:42 Last Admin: 01/02/19 08:28 Dose: 150 mg Documented by: Fluticasone/Salmeterol (Advair Diskus 500/50) 1 puffs INH BID [facility] Stop: 01/26/19 21:42 Last Admin: 01/02/19 08:24 Dose: 1 puffs Documented by: Sennosides (Senokot) 8.6 mg PO BID [facility] Stop: 01/26/19 21:42 Last Admin: 01/02/19 08:26 Dose: 8.6 mg Documented by: Sucralfate (Carafate Tab) 1 gm PO BID [facility] Stop: 01/26/19 21:42 Last Admin: 01/02/19 08:25 Dose: 1 gm Documented by: Tiotropium Phelps (Spiriva) 1 puffs INH DAILY [facility] Stop: 01/27/19 08:59 Last Admin: 01/02/19 08:31 Dose: 1 puffs Documented by: Tramadol HCl (Ultram) 50 mg PO Q12H PRN PRN Reason: Pain, Moderate 5-10 Stop: 01/26/19 21:42 Trazodone HCl (Desyrel) 50 mg PO HS [facility] Stop: 01/28/19 20:59 Last Admin: 01/01/19 20:33 Dose: 50 mg Documented by: Warfarin Sodium (Coumadin) 3 mg PO MoWe@1600 [facility] Stop: 01/29/19 15:59 Last Admin: 01/01/19 15:34 Dose: 3 mg Documented by: Warfarin Sodium (Coumadin) 1.5 mg PO SuTuThFrSa@1600 [facility] Stop: 01/27/19 15:59 Last Admin: 12/31/18 16:12 Dose: 1.5 mg Documented by: (1) Altered mental status Altered mental status type: unspecified Qualified Code(s): R41.82 - Altered mental status, unspecified
[2019-01-02] MEDS: WARFARIN SOD 0.5 MG TAB PO SCH (14:45)
--- NOTE | 2019-01-03 07:33 | Discharge Summary ---
Date of Service January 03, 2019 Admission HPI Per Admitting Provider Pt is 78 y/o F with PMH Atrial fibrillation on Coumadin, obesity hypoventilation syndrome, asthma, chronic diastolic heart failure, HTN, anxiety, CKD 3 presented to ER for altered mental status. Reported patient With increased confusion and was eating a tissue today. Patient states has been feeling off balance and tremors for the past week. Patient reports has been having dysuria for the past week. States feels like he has had cough for the past month since her previous hospitalization. States intermittent SOB. Reports has been using oxygen And nebulizer treatments at the alf. Pt unsure if has had fever/chills. She thinks has had poor appetite. Pt denies N/V/D/C, KUMARI, dizziness, syncope, vision changes, neck pain, CP, hemoptysis, sore throat, choking, otalgia, rhinorrhea, abdominal pain, paresthesias, extremity edema, rashes, urinary frequency, hematuria. Patient with history of hospitalization 11/15/18-11/21/18 for flu, cough, hypoxia was treated with vancomycin cefepime and prednisone and was transitioned to doxycycline. Was found to have Proteus UTI and treated with Keflex. History of hospitalization 11/01/18-11/06/18 for leg hematoma and cellulitis and was discharged on doxycycline Admission Exam Per Admitting Provider Vital Signs (Past 24 Hours): Last Vital Signs Temp 37.1 C 12/27/18 14:50 Pulse 107 H 12/27/18 20:00 Resp 20 12/27/18 20:00 BP 117/94 12/27/18 20:00 Pulse Ox 92 12/27/18 20:00 Physical Exam: General: chronic ill appearing elderly female, obese Head: normocephalic, atraumatic Eyes: PERRL, EOM's intact, conjunctiva non-injected, anicteric ENT: normal inspection external ears, nose, mucous membranes dry Neck: supple, trachea midline Lungs: on 4L O2 via NC with sat 95%, R: 20 without retractions, +rhonchi with faint wheezing throughout CV: irregularly irregular, R: 102, trace pretibial edema Abd: normal BS, soft, non-tender Ext: no cyanosis, no calf tenderness Neuro: A&O to person, place, no focal deficits noted, normal affect Skin: warm, dry Principal Diagnosis Metabolic encephalopathy-cleared, acute bronchitis, atrial fibrillation, ROSEY Discharge Exam Constitutional WD/WN, vitals as above Eyes PERRL, conjunctivae normal, anicteric sclerae ENMT external ear and nose normal, oropharynx normal Neck trachea midline, no thyromegaly Respiratory normal respiratory effort Auscultation: lungs clear to auscultation bilaterally and + diminished lung sounds Cardiovascular Rate/Rhythm: regular rate and regular rhythm Heart Sounds: normal S1 and normal S2 Gastrointestinal (Abdomen) Inspection/Auscultation: abdomen normal to inspection Neurologic PERRL, EOMI, accommodation nl, no face palsy, no dysarthria Psychiatric A+Ox3, euthymic affect Discharge Data Allergies Allergy/AdvReac Type Severity Reaction Status Date / Time meperidine [From Demerol] Allergy Unknown ON WINDY Verified 12/27/18 16:58 HILL LIST morphine AdvReac Intermediate vomiting Verified 12/27/18 16:58 oxycodone AdvReac Intermediate vomit blood Verified 12/27/18 16:58 propoxyphene AdvReac Intermediate abd vomit Verified 12/27/18 16:58 blood tramadol AdvReac Intermediate vomiting Verified 12/27/18 16:58 Bactrim AdvReac Mild GI SYMPTOMS Verified 03/06/18 21:06 codeine AdvReac Mild vomiting Verified 12/27/18 16:58 olmesartan AdvReac Mild GI SYMPTOMS Verified 12/27/18 16:58 Sulfa (Sulfonamide AdvReac Mild GI SYMPTOMS Verified 12/27/18 16:58 Antibiotics) sulfamethoxazole AdvReac Mild GI SYMPTOMS Verified 12/27/18 16:58 trimethoprim AdvReac Mild GI SYMPTOMS Verified 12/27/18 16:58 carisoprodol AdvReac Unknown GI SYMPTOMS Verified 12/27/18 16:58 Consultations 12/27/18 19:08 ED Decision to Admit Stat 12/27/18 21:43 Consult Case Management - Discharge Planning Routine 12/28/18 12:23 Consult Neurology Routine Ordered Studies 12/27/18 17:10 CT head/brain wo con Stat Hospital Course (1) Altered mental status: Presented to ER for altered mental status. Reported patient with increased confusion and was eating a tissue today. Patient states has been feeling off balance and tremors for the past week. Likely metabolic encephalopathy from UTI, Narcotics Urine cultures E. coli-sensitive to cephalosporin Continue ceftriaxone IV day #6 Denies any urinary symptoms And had at least 2 episodes while admitted Possible component of delirium Tramadol reduced to twice a day as needed, fentanyl patch reduced from 50-25 mcg Encephalopathy is cleared (2) Possible urinary tract infection: Ruled in for E. coli UTI E coli UTI management noted above (3) Bronchitis: States feels like he has had cough for the past month since her previous hospitalization. States intermittent SOB. given Doxy, Nebs, Prednisone Has been on steroid taper Doxycycline to continue 7 days in total (4) Hypoxia: secondary to Bronchitis Pt with hx asthma, obesity hypoventilation syndrome. States feels like he has had cough for the past month since her previous hospitalization. States intermittent SOB and has been using oxygen NC at alf. H/O hospitalization 11/15/18-11/21/18 for flu, cough, hypoxia was treated with vancomycin cefepime and prednisone and was transitioned to doxycycline. Clinically a lot better and does not have any more low saturation (5) DM type 2 (diabetes mellitus, type 2): (6) Hypoglycemia: Hx DM II. A1c6.2 on 11/18. Pt on lantus and novolog at [facility]. Reports just had toast early in morning In ER pt with glucose 52 up to 91 -BSGs improving - novolog lantus sliding scale (7) ROSEY (acute kidney injury): ROSEY on CKD III Cr: 1.6. Baseline ~1.3 Creatinine back to baseline after IV fluids (8) Atrial fibrillation: Chronic a-fib. On coumadin P: 104 down to 95. INR 1.4 -continue coumadin, metoprolol -monitor INR-1.7 today on 01/01 INR is not yet therapeutic (9) Diastolic CHF: Chronic diastolic HF 08/2018 echo: EF: 55% lasix, spironolactone, metolazone were held in light of borderline blood pressure -- euvolemic may need to resume tomorrow Will be transferred to [facility] this afternoon (10) Asthma: -continue advair, spiriva, singulair -xopenex/atrovent nebs prn (11) Hypertension: -continue metoprolol (12) Hypothyroidism: -continue levothyroxine (13) Chronic pain: Management of fentanyl patch and tramadol as noted above (14) GERD (gastroesophageal reflux disease): -continue PPI, H2 gabriela, carafate (15) Hyperuricemia: -continue allopurinol. hold colchicine (16) Anxiety: -continue buspirone, duloxetine, trazodone Hold Ativan for now Myoclonus Neurologist consulted Likely secondary to narcotics reduced fentanyl and tramadol improving Continue to monitor DVT Prophylaxis -on coumadin Full code but no mechanical ventilation as per discussion with pt, as is same as prior admission Follows with Dr Lemus for routine care Disposition return to SNF when medically stable, likely in 1-2 days Total Time Total Time Spent Total Time Spent (In Minutes): 40 minutes Total Time Includes: Examination of the Patient, Discharge Planning, Medication Reconciliation and Communication With Other Providers Discharge Plan Discharge Items Patient Disposition: Transfer Jail Fac Reason For Visit: CONFUSION Discharge Diagnosis: Metabolic encephalopathy-cleared, acute bronchitis, atrial fibrillation, ROSEY Condition: Fair Discharge Goals: Decrease discomfort and Improve function Activity: Resume your previous activity Non-emergency contact: Primary Care Provider Call non-emergency contact if: you have any medication questions Follow-up/Referrals: Viry Lemus MD [Primary Care Provider] - (Please make an appointment with your primary care provider within 1 week. Please have regular follow-up with coagulation clinic to maintain an INR between 2-3.) Diet: Heart Healthy Fluids: 1500ml (6 cups) Addtl Provider Instructions: Please take precaution to avoid falls Prescriptions: New doxycycline hyclate 100 mg Capsule 100 mg PO Q12H 4 Days Qty: 8 RF: 0 prednisone 10 mg Tablet 30 mg PO UD Qty: 9 RF: 0 Continued sennosides [Senna-Gen] 8.6 mg Tablet 8.6 mg PO AMHS RF: 0 acetaminophen 650 mg Suppository 650 mg NE Q6H PRN (Reason: TEMP >100.4, IF NOT TAKING PO) RF: 0 ipratropium-albuterol 0.5 mg-3 mg(2.5 mg base)/3 mL Solution For Nebulization 3 ml INHALATION QID RF: 0 trazodone 50 mg Tablet 50 mg PO HS RF: 0 polyethylene glycol 3350 [Miralax] 17 gram Powder In Packet 17 g PO Q OTHER DAY RF: 0 ondansetron HCl [Zofran] 8 mg Tablet 8 mg PO Q8 PRN (Reason: Nausea) RF: 0 diltiazem HCl [Cardizem CD] 240 mg Capsule,Extended Release 24hr 240 mg PO QAM RF: 0 sucralfate 1 gram Tablet 1 g PO AMPM RF: 0 Desenex 2 % Powder 1 applic TOPICAL BID RF: 0 allopurinol 100 mg Tablet 200 mg PO QAM RF: 0 tramadol 50 mg Tablet 50 mg PO TID RF: 0 pantoprazole 20 mg Tablet,Delayed Release (Dr/Ec) 20 mg PO DAILYBB RF: 0 levothyroxine 75 mcg Tablet 75 mcg PO DAILYBB RF: 0 lorazepam 0.5 mg Tablet 0.5 mg PO TID PRN (Reason: Anxiety) RF: 0 magnesium hydroxide [Milk of Magnesia] 400 mg/5 mL Suspension 30 ml PO DAILY PRN (Reason: NO BM X 3 DAYS.) RF: 0 Refresh Tears 0.5 % Drops 1 drp OPB BID RF: 0 meclizine 25 mg Tablet 25 mg PO TID PRN (Reason: Dizziness) RF: 0 bisacodyl [Dulcolax (bisacodyl)] 10 mg Suppository 10 mg NE DAILY PRN (Reason: NO RESULTS FROM MOM, DAY 5) RF: 0 buspirone 30 mg Tablet 15 mg PO AMHS RF: 0 ferrous sulfate 325 mg (65 mg iron) Tablet 325 mg PO AMHS RF: 0 fluticasone propion-salmeterol [Advair Diskus] 500-50 mcg/dose Blister With Device 1 inh INHALATION AMHS RF: 0 Fleet Enema 19-7 gram/118 mL Enema 118 ml NE DAILY PRN (Reason: DAY 6 OF NO BM.) RF: 0 docusate sodium [Colace] 100 mg Capsule 100 mg PO AMHS RF: 0 montelukast 10 mg Tablet 10 mg PO PM RF: 0 colchicine 0.6 mg Tablet 0.6 mg PO QAM RF: 0 magnesium oxide 250 mg magnesium Tablet 250 mg PO QAM RF: 0 metoprolol tartrate 25 mg Tablet 25 mg PO AMPM RF: 0 duloxetine 60 mg Capsule,Delayed Release(Dr/Ec) 60 mg PO QAM RF: 0 Lyrica 50 mg Capsule 50 mg PO PC RF: 0 acetaminophen [Tylenol] 325 mg Capsule 650 mg PO Q4 PRN (Reason: Fever Or Pain) RF: 0 melatonin 10 mg Tablet 10 mg PO HS RF: 0 Glucosamine Chondroitin PLUS [id number] mg Capsule 1 tab PO PC RF: 0 fentanyl 50 mcg/hr Patch 72 Hour 1 patch TRANSDERMAL Q72H Qty: 0 RF: 0 furosemide [Lasix] 40 mg Tablet 40 mg PO QAM RF: 0 metolazone 2.5 mg Tablet 2.5 mg PO 2XWK RF: 0 Lantus U-100 Insulin 100 unit/mL Solution 20 unit SUBCUT HS RF: 0 simethicone [Gas Relief] 180 mg Capsule 180 mg PO PC RF: 0 Novolog U-100 Insulin aspart 100 unit/mL Solution 10 unit SUBCUT AC RF: 0 ranitidine HCl [Zantac] 150 mg Tablet 150 mg PO BID RF: 0 Allevyn 4 X 4 " Bandage RF: 0 warfarin [Coumadin] 3 mg Tablet 3 mg PO UD RF: 0 Spiriva Respimat 1.25 mcg/actuation Mist 2 puff INHALATION DAILY RF: 0 Changed spironolactone 25 mg Tablet 12.5 mg PO QAM Qty: 0 RF: 0 Discontinued potassium chloride 20 mEq tablet extended release 20 meq PO BID Qty: 60 RF: 0 Stand-Alone Forms: [facility] Discharge Orders: Discharge Order (Routine); Ordered 01/02/19 Ordered By: Austin Arrieta Skilled Items Patient informed of condition?: Yes DNR: No Discharge Level of Care: Skilled Communicable Disease: No Discharge Prognosis: Stable Admission Data Admit Date/Time: 12/27/18 19:51 Attending Provider: Austin Arrieta Admit Provider: Austin Arrieta Primary Care Provider: Viry Lemus Other Providers: Anam Villeda ; Austin Arrieta ; Rebekah Mccain John E ; Rebekah Wilson ; Geovanny Evans ; Hernandez Clayton ; Reese Guevara Service: Telemetry Medical Other Interventions: Discharge Summary Assessment (RN) Last Done: 01/02/19 13:28 DC Date/Time DO NOT enter until pt leaves facility: 01/02/19 15:20
== END 2019-01-02 15:20 | DRG 689 ==
LOC: ED 14:52 → 2W 19:51 → SUATTDRO 19:51 → 2W 21:11

== ENCOUNTER 2019-01-11 07:49 | Inpatient (IN) ==
[2019-01-11] MEDS ORDERED: ONDANSETRON INJ 2 MG/ML 2 ML VIAL IV STA ×2 (07:58→08:46)
[2019-01-11] MEDS ORDERED: ASPIRIN CHEW 324 MG PO STA (07:58)
[2019-01-11] MEDS ORDERED: HYDROmorphone INJ 0.5 MG/0.5 ML SYR IV PRN (07:58)
[2019-01-11] MEDS ORDERED: LEVALBUTEROL HCL 1.25 MG/3 ML NEB NEB STA (07:58)
[2019-01-11 08:14] LABS: Basophils # (auto) 0.01 K/uL (0-0.2); Basophils % (auto) 0.1 %; Eosinophils # (auto) 0.17 K/uL (0-0.5); Eosinophils % (auto) 1.2 %; Hematocrit (blood only) 42.8 % (37-47); Hemoglobin 14.7 g/dL (12.0-16.0); Immature Granulocytes # (auto) 0.13 K/uL (0.00-0.02); Immature Granulocytes % (auto) 0.9 %; Lymphocytes # (auto) 1.72 K/uL (1.2-3.4); Lymphocytes % (auto) 11.9 %; Mean Corpuscular Hgb Conc 34.3 g/dL (32-36); Mean Corpuscular Volume 99.3 fL (80-100); Mean Platelet Volume 11.9 fL (7.4-10.4); Monocytes # (auto) 0.88 K/uL (0.11-0.59); Monocytes % (auto) 6.1 %; Neutrophils # (auto) 11.56 K/uL (1.4-6.5); Neutrophils % (auto) 79.8 %; Platelet Count 221 K/uL (130-400); RDW Coefficient of Variation 15.6 % (11.5-14.5); RDW Standard Deviation 56.8 fL (36.4-46.3); Red Blood Count 4.31 M/uL (4.2-5.4); White Blood Count 14.47 K/uL (4.8-10.8)
[2019-01-11] MEDS ORDERED: ASPIRIN 81 MG CHEW ONE (08:15)
[2019-01-11 08:35] LABS: Alanine Aminotransferase 20 U/L (12-78); Albumin Level 2.7 gm/dl (3.4-5.0); Aspartate Aminotransferase 17 U/L (15-37); BUN Creatinine Ratio 29.7 (10-20); Blood Urea Nitrogen 34 mg/dl (7-18); Calcium 8.8 mg/dl (8.5-10.1); Carbon Dioxide 30 mmol/L (21-32); Chloride 98 mmol/L (98-107); Creatinine Clr Calc Pharmacy 52.5 ml/min; Est GFR (African American) 52.6; Est GFR (Non-African American) 45.4; Glucose 162 mg/dl (70-99); Potassium 3.3 mmol/L (3.5-5.1); Sodium 136 mmol/L (136-145)
[2019-01-11 08:44] LABS: Albumin Globulin Ratio 0.7 (0.9-2); Alkaline Phosphatase 84 U/L (45-117); Bilirubin,Total 0.7 mg/dl (0.2-1); Creatine Kinase 28 U/L (26-192); Creatine Kinase MB < 1.0 ng/ml (0.5-3.6); Globulin 3.7 gm/dl (2.5-4.0); Total Protein 6.4 gm/dl (6.4-8.2); Troponin I 0.041 ng/ml (0-0.045)
[2019-01-11] MEDS ORDERED: POTASSIUM CHLORIDE 10 MEQ TABCR PO STA (08:46)
--- NOTE | 2019-01-11 08:52 | XRay Report ---
SINGLE VIEW CHEST CLINICAL HISTORY: Sepsis. FINDINGS: An AP, portable, upright chest radiograph is compared to study dated 12/27/2018 and correlat ed with chest CT dated 04/18/2018. The examination is degraded by portable technique and patient rotat ion. The heart is enlarged and there is atherosclerotic calcification of the thoracic aorta. The pul monary vasculature is noncongested. Chronic interstitial thickening is similar to previous. There is bibasilar scarring/atelectasis. No airspace consolidation or large pleural effusion is identified. No pneumothorax is seen. The skeletal structures are osteopenic. The bony thorax is grossly intact. Adv anced arthritic change is seen in the shoulders. IMPRESSION: Cardiomegaly with no acute cardiopulmonary abnormality. Electronically signed by: Coleman Smith M.D. 01/11/2019 8:51 AM
[2019-01-11] MEDS ORDERED: OPTIRAY 320 125ml IV PRN (09:28)
[2019-01-11 09:31] LABS: Partial Thromboplastin Ratio 1.4; Partial Thromboplastin Time 37.2 Seconds (21.0-31.0); Prothrombin Time 28.1 Seconds (9.0-12.0)
[2019-01-11] MEDS: POTASSIUM CHLORIDE / WTR 10 MEQ/100 ML PLCT IV SCH ×2 (09:39→10:57)
--- NOTE | 2019-01-11 09:56 | CT Scan Report ---
CT ANGIOGRAM OF THE CHEST COMBO CLINICAL HISTORY: Atypical chest pain. COMPARISON STUDY: Chest CT scans dated 04/08/2018 and 06/10/2015. TECHNIQUE: Before and following the IV administration of 118 cc of Optiray 320, CT angiogram of the c hest was performed from the thoracic inlet to the upper abdomen utilizing the dissection protocol. Im ages are reviewed in the axial, sagittal, and coronal planes. 3-D MIPS images are created and assesse d. IV contrast was administered without complication. A dose lowering technique was utilized adherin g to the principles of ALARA. The examination is degraded by streak artifact from the arms which jin ot elevated above the chest. CT DOSE: 2282.71 mGy.cm FINDINGS: Thyroid: Atrophic. Thoracic aorta: No intramural hematoma is seen on the unenhanced series. There is mild atheroscleroti c calcification of the thoracic aorta, which is normal in caliber and demonstrates standard 3-vessel arch anatomy. No dissection is seen. The arch vessels are widely patent. Pulmonary vasculature: The pulmonary trunk is normal in caliber. There are no filling defects identif ied within the main, lobar, or segmental pulmonary arteries to suggest pulmonary embolus. Heart: The heart is top normal in size and without pericardial effusion. The coronary arteries are de nsely calcified. Lungs and pleural spaces: There is a trace left pneumothorax. Foci of bibasilar scarring/atelectasis are observed. Trace hemothorax is noted at the left lung base. The trachea and central airways are cl ear. Mild groundglass consolidation is seen throughout the right upper lobe and the superior segment of the right lower lobe. There is a 3 mm pulmonary nodule in the left lower lobe seen image #[id number]. Mediastinum: There is no mediastinal lymphadenopathy. Mónica: Clear. Axillae: There is no axillary lymphadenopathy. Upper abdomen: There is a small hiatal hernia. Partially visualized upper abdominal viscera is within normal limits. Skeletal structures: The skeletal structures are osteopenic. Degenerative change and mild hyperkyphos is are noted in the thoracic spine. There is a mild chronic superior endplate compression deformity o f T4. Advanced arthritic change is seen in the shoulders, with surrounding bursal fluid and calcified joint bodies. No lytic or blastic bony lesions are seen. No acute/distracted rib fracture is identif ied. There are chronic/healed right posterior rib fractures. IMPRESSION: 1. There is no aneurysm or dissection identified involving the thoracic aorta. 2. There is trace left hemopneumothorax. 3. No acute/distracted left-sided rib fracture is identified. 4. Mild groundglass consolidation is identified throughout the right upper lung. This is nonspecific and could represent a mild infectious/inflammatory pneumonitis, an aspiration event, or less likely a pulmonary contusion if there has been recent trauma. Clinical correlation will be required. 5. There is no evidence of pulmonary embolus in the main, lobar, or segmental pulmonary arteries. 6. Additional findings as above. Electronically signed by: Coleman Smith M.D. 01/11/2019 9:54 AM
[2019-01-11] MEDS ORDERED: SODIUM CHLORIDE 0.9% 1000ML 500 ML IV ONE ×2 (10:09→11:14)
[2019-01-11] MEDS ORDERED: PIPERACILL/TAZOBAC CONSULT ACTIVE PRN (10:09)
[2019-01-11] MEDS ORDERED: PIPERACILLIN/TAZOBACTAM 4.5 GM/120 ML BAG IV ONE (10:09)
[2019-01-11] MEDS ORDERED: VANCOMYCIN CONSULT ACTIVE PRN (10:09)
[2019-01-11] MEDS ORDERED: LEVOFLOXACIN/D5W 750 MG/150 ML BAG IV STA (10:09)
[2019-01-11] MEDS ORDERED: VANCOMYCIN HCL 2,250 MG in SODIUM CHLORIDE 0.9% 500 ML IV ONE (10:09)
[2019-01-11 11:31] LABS: Influenza A virus by PCR Neg for Influ A (Neg); Influenza B virus by PCR Neg for Influ B (Neg)
[2019-01-11] MEDS ORDERED: LEVALBUTEROL 1.25MG/0.5ML NEB NEB SCH (12:45)
--- NOTE | 2019-01-11 12:57 | Emergency Department Note ---
Entered by Kelly Ibarra acting as a scribe for Conrad Reno MD History of Present Illness General Chief complaint: Chest Pain Stated complaint: chest pain Source: patient and EMS Mode of arrival: EMS Limitations: no limitations History of Present Illness Onset (ago): day(s) 2 Location: chest Radiation: non-radiation Pain Consistency: + constant Associated symptoms: + cough and + other (-abdominal pain) The patient is a 78 year old female who presents to the Emergency Room with complaints of chest pain that woke her up this morning. She was brought to the ED via EMS. She has a history of asthma and states she is normally on 2L NC. She states she has never experienced pain like this before. Movement does not affect her pain. The patient does admit to a history of CHF. She also complains of a cough that she states she has had "for a while". She denies any abdominal pain. She denies any recent falls or trauma. She does take daily Coumadin. Home Medications Home Medications Medication Instructions Recorded Confirmed Type Fleet Enema 118 ml WA DAILY PRN 11/01/18 01/11/19 History Glucosamine Chondroitin PLUS 1 tab PO PC 11/01/18 01/11/19 History Lyrica 50 mg PO TIDM 11/01/18 01/11/19 History Refresh Tears 1 drp OPB BID 11/01/18 01/11/19 History acetaminophen 650 mg WA Q6H PRN 11/01/18 01/11/19 History acetaminophen [Tylenol] 650 mg PO Q4 PRN 11/01/18 01/11/19 History allopurinol 200 mg PO QAM 11/01/18 01/11/19 History bisacodyl [Dulcolax (bisacodyl)] 10 mg WA DAILY PRN 11/01/18 01/11/19 History buspirone 15 mg PO BID 11/01/18 01/11/19 History colchicine 0.6 mg PO QAM 11/01/18 01/11/19 History diltiazem HCl [Cardizem CD] 240 mg PO QAM 11/01/18 01/11/19 History docusate sodium [Colace] 100 mg PO AMHS 11/01/18 01/11/19 History duloxetine 60 mg PO QAM 11/01/18 01/11/19 History ferrous sulfate 325 mg PO AMHS 11/01/18 01/11/19 History fluticasone propion-salmeterol 1 inh INHALATION BID 11/01/18 01/11/19 History [Advair Diskus] ipratropium-albuterol 3 ml INHALATION Q4H PRN 11/01/18 01/11/19 History levothyroxine 75 mcg PO DAILYBB 11/01/18 01/11/19 History lorazepam 0.5 mg PO TID PRN 11/01/18 01/11/19 History magnesium hydroxide [Milk of 30 ml PO DAILY PRN 11/01/18 01/11/19 History Magnesia] magnesium oxide 250 mg PO QAM 11/01/18 01/11/19 History meclizine 25 mg PO TID PRN 11/01/18 01/11/19 History melatonin 10 mg PO HS 11/01/18 01/11/19 History metoprolol tartrate 25 mg PO AMPM 11/01/18 01/11/19 History montelukast 10 mg PO PM 11/01/18 01/11/19 History ondansetron HCl [Zofran] 8 mg PO Q8 PRN 11/01/18 01/11/19 History pantoprazole 20 mg PO DAILYBB 11/01/18 01/11/19 History polyethylene glycol 3350 [Miralax] 17 g PO Q OTHER DAY 11/01/18 01/11/19 History sucralfate 1 g PO AMPM 11/01/18 01/11/19 History trazodone 50 mg PO HS 11/01/18 01/11/19 History fentanyl 1 patch TRANSDERMAL Q72H #0 ea 11/06/18 01/11/19 Rx Allevyn 12/27/18 12/27/18 History Lantus U-100 Insulin 20 unit SUBCUT HS 12/27/18 01/11/19 History Novolog U-100 Insulin aspart 10 unit SUBCUT AC 12/27/18 01/11/19 History Spiriva Respimat 2 puff INHALATION PM 12/27/18 01/11/19 History furosemide [Lasix] 40 mg PO QAM 12/27/18 01/11/19 History metolazone 2.5 mg PO 2XWK 12/27/18 01/11/19 History ranitidine HCl [Zantac] 150 mg PO BID 12/27/18 01/11/19 History simethicone [Gas Relief] 180 mg PO DAILY PRN 12/27/18 01/11/19 History spironolactone 12.5 mg PO QAM #0 tab 01/02/19 01/11/19 Rx guaifenesin [Amy-Tussin] 200 mg PO Q4H PRN 01/11/19 01/11/19 History nystatin [Nyamyc] 1 applic TOPICAL BID 01/11/19 01/11/19 History sennosides [senna] 8.6 mg PO BID 01/11/19 01/11/19 History umeclidinium [Incruse Ellipta] 1 inh INHALATION PM 01/11/19 01/11/19 History warfarin 0.5 mg PO UD 01/11/19 01/11/19 History warfarin 1 mg PO PM 01/11/19 01/11/19 History Allergies Allergy/AdvReac Type Severity Reaction Status Date / Time meperidine [From Demerol] Allergy Unknown ON WINDY Verified 01/11/19 08:53 HILL LIST morphine AdvReac Intermediate vomiting Verified 01/11/19 08:53 oxycodone AdvReac Intermediate vomit blood Verified 01/11/19 08:53 propoxyphene AdvReac Intermediate abd vomit Verified 01/11/19 08:53 blood tramadol AdvReac Intermediate vomiting Verified 01/11/19 08:53 Bactrim AdvReac Mild GI SYMPTOMS Verified 03/06/18 21:06 codeine AdvReac Mild vomiting Verified 01/11/19 08:53 olmesartan AdvReac Mild GI SYMPTOMS Verified 01/11/19 08:53 Sulfa (Sulfonamide AdvReac Mild GI SYMPTOMS Verified 01/11/19 08:53 Antibiotics) sulfamethoxazole AdvReac Mild GI SYMPTOMS Verified 01/11/19 08:53 trimethoprim AdvReac Mild GI SYMPTOMS Verified 01/11/19 08:53 carisoprodol AdvReac Unknown GI SYMPTOMS Verified 01/11/19 08:53 Past Med/Surg History Medical History Anxiety (Chronic) Hyperuricemia (Chronic) CKD (chronic kidney disease), stage III (Chronic) GERD (gastroesophageal reflux disease) (Chronic) DJD (degenerative joint disease), multiple sites (Chronic) Arthritis (Chronic) Asthma (Chronic) Diastolic CHF (Chronic) On 02/12/16 22:20 Ellie Calderonbridgett wrote "per echo 09/30/15- EF 60-65%, mod LVH, mod MR, mod TR, dilated RV" DM type 2 (diabetes mellitus, type 2) (Chronic) Hypertension (Chronic) Hypothyroidism (Chronic) Chronic pain (Chronic) Stenosis of right carotid artery (Chronic) History of pulmonary embolism (Chronic) Chronic gastritis (Chronic) Chronic back pain (Chronic) Generalized anxiety disorder (Chronic) Obesity (BMI 30-39.9) (Chronic) DM2 (diabetes mellitus, type 2) (Chronic) HTN (hypertension) (Chronic) Surgical History History of hernia repair (Chronic) Status post cholecystectomy (Chronic) "Dr. Beavers [facility] 12/27/17" Family History Other Diabetes Hypertension Social History Communication Ability: Effective Beliefs That Will Affect Care: None marital status: / Current Living Situation: [facility] Other Information That Helps Us Care for You: No Feels Safe at Home: Yes Safety Concerns: Feels Safe At This Time Smoking Status: Never smoker Hx Alcohol Use: No Hx Substance Use: No Review of Systems See HPI for pertinent positives & negatives. and A total of 10 systems reviewed and were otherwise negative Physical Exam Vital Signs Vital Signs - 24 hr 01/14/19 00:38 01/14/19 02:22 01/14/19 03:47 Temperature 36.5 C 36.4 C L Temperature Source Oral Oral Pulse Rate [Finger] 78 84 78 Pulse Strength [Finger] Respiratory Rate 21 14 18 Respiratory Effort / Characteristics Non-Labored Spontaneous Respiratory Depth Respiratory Pattern Blood Pressure [Left Arm] Blood Pressure [Right Arm] 109/75 134/88 Blood Pressure Mean [Left Arm] Blood Pressure Mean [Right Arm] 86 103 Blood Pressure Position [Left Arm] Blood Pressure Position [Right Arm] Lying Sitting Pulse Oximetry 99 96 Oxygen Delivery Method Nasal Cannula Nasal Cannula Nasal Cannula Oxygen Flow Rate 2 2 2 01/14/19 07:06 01/14/19 07:31 01/14/19 10:15 Temperature 36.9 C Temperature Source Oral Pulse Rate [Finger] 82 83 Pulse Strength [Finger] Normal Respiratory Rate 20 Respiratory Effort / Characteristics Non-Labored Spontaneous Non-Labored Spontaneous Non-Labored Spontaneous SOB on Exertion Respiratory Depth Normal Normal Respiratory Pattern Regular Regular Blood Pressure [Left Arm] Blood Pressure [Right Arm] 107/70 Blood Pressure Mean [Left Arm] Blood Pressure Mean [Right Arm] 82 Blood Pressure Position [Left Arm] Blood Pressure Position [Right Arm] Lying Pulse Oximetry 100 100 Oxygen Delivery Method Nasal Cannula Nasal Cannula Nasal Cannula Oxygen Flow Rate 2 2 2 01/14/19 11:49 01/14/19 14:32 01/14/19 15:33 Temperature 36.6 C 36.9 C Temperature Source Oral Oral Pulse Rate [Finger] 81 81 75 Pulse Strength [Finger] Respiratory Rate 17 18 20 Respiratory Effort / Characteristics Non-Labored Spontaneous Respiratory Depth Respiratory Pattern Blood Pressure [Left Arm] 144/80 H 111/76 Blood Pressure [Right Arm] Blood Pressure Mean [Left Arm] 101 87 Blood Pressure Mean [Right Arm] Blood Pressure Position [Left Arm] Sitting Sitting Blood Pressure Position [Right Arm] Pulse Oximetry 95 95 99 Oxygen Delivery Method Nasal Cannula Nasal Cannula Oxygen Flow Rate 2.0 2.0 2 01/14/19 19:03 01/14/19 19:49 Temperature 37.1 C Temperature Source Oral Pulse Rate [Finger] 110 H 100 H Pulse Strength [Finger] Respiratory Rate 18 20 Respiratory Effort / Characteristics Non-Labored Spontaneous Respiratory Depth Respiratory Pattern Blood Pressure [Left Arm] Blood Pressure [Right Arm] 121/85 Blood Pressure Mean [Left Arm] Blood Pressure Mean [Right Arm] 97 Blood Pressure Position [Left Arm] Blood Pressure Position [Right Arm] Semi-fowlers Pulse Oximetry 97 96 Oxygen Delivery Method Nasal Cannula Nasal Cannula Oxygen Flow Rate 2 2 GENERAL: Awake, alert, writhing around the bed, painful in appearance HENT: Normocephalic, atraumatic. Oropharynx unremarkable. EYES: Normal conjunctiva. Sclera non-icteric. NECK: Supple. No nuchal rigidity. FROM. No masses. RESPIRATORY: Clear to auscultation. No wheezes. No rales. Normal respiratory effort. CARDIAC: Normal rate. Normal rhythm. No murmurs. No rubs. Extremities warm and well perfused. Pulses equal. No JVD. GI: Soft, non-distended. No tenderness to palpation. No rebound or guarding. No masses. RECTAL: Deferred. MUSCULOSKELETAL: Atraumatic. Chest examination reveals no tenderness. The back is symmetrical on inspection without obvious abnormality. There is no CVA tenderness to palpation. No joint edema. LOWER EXTREMITIES: Calves are equal size bilaterally and non-tender. No edema. No discoloration. NEURO: Normal sensorium. No sensory or motor deficits noted. Course 0749: The patient was evaluated in room A9, and a complete history and physical examination were performed. 1030: I discussed the patients case with Anay Becerra PA-C, Hospitalist. She will call me back. 1035: I discussed the patients case with Anay Becerra PA-C, Hospitalist again. She recommended the patient be transferred to a tertiary care center. 1050: I reevaluated the patient and spoke to her family. I recommended she be transferred to [facility] in [place]. The patients sister is requesting she be transferred to [facility]. 1109: I discussed the patients case with TERA Camejo, [facility]. The patient will be further evaluated. 1113: I discussed the patients case with Dr. Dubose, [facility] ED. The patient will be further evaluated. Consultations Consultation #1: I discussed the patients case with Anay Becerra PA-C, Hospitalist. She recommends the patient be transferred to a tertiary care center. Time: 10:30 Consultation #2: I discussed the patients case with Dr. YARED Camejo, [facility]. The patient will be further evaluated. Time: 11:09 Consultation #3: I discussed the patients case with Dr. Dubose, [facility] ED. The patient will be further evaluated. Time: 11:13 Administered Medications Acetaminophen (Tylenol) 650 mg PO Q4 PRN PRN Reason: Fever Or Pain Last Admin: 01/12/19 01:39 Dose: 650 mg Documented by: [id number] [facility] Stop: 02/11/19 08:59 Last Admin: 01/14/19 08:32 Dose: 200 mg Documented by: [id number] Admin: 01/13/19 07:49 Dose: 200 mg Documented by: [id number] Admin: 01/12/19 08:10 Dose: 200 mg Documented by: [id number] Artificial Tears (Artificial Tears) 1 drops OPB BID [facility] Stop: 02/10/19 20:59 Last Admin: 01/14/19 21:18 Dose: 1 drops Documented by: [id number] Admin: 01/14/19 08:39 Dose: 1 drops Documented by: [id number] Admin: 01/13/19 22:16 Dose: 1 drops Documented by: [id number] Admin: 01/13/19 09:03 Dose: 1 drops Documented by: [id number] Admin: 01/12/19 20:54 Dose: 1 drops Documented by: [id number] Admin: 01/12/19 08:08 Dose: 1 drops Documented by: [id number] Admin: 01/11/19 21:24 Dose: 2 drops Documented by: [id number] Buspirone HCl (Buspar) 15 mg PO BID [facility] Stop: 02/10/19 20:59 Last Admin: 01/14/19 21:11 Dose: 15 mg Documented by: [id number] Admin: 01/14/19 08:31 Dose: 15 mg Documented by: [id number] Admin: 01/13/19 22:17 Dose: 15 mg Documented by: [id number] Admin: 01/13/19 07:46 Dose: 15 mg Documented by: [id number] Admin: 01/12/19 20:56 Dose: 15 mg Documented by: [id number] Admin: 01/12/19 08:09 Dose: 15 mg Documented by: [id number] Admin: 01/11/19 20:57 Dose: 15 mg Documented by: [id number] Diltiazem HCl (Cardizem Cd) 240 mg PO QAM [facility] Stop: 02/11/19 08:59 Last Admin: 01/14/19 08:33 Dose: 240 mg Documented by: [id number] Admin: 01/13/19 07:47 Dose: 240 mg Documented by: [id number] Admin: 01/12/19 08:10 Dose: 240 mg Documented by: [id number] Docusate Sodium (Colace) 100 mg PO AMHS [facility] Stop: 02/10/19 20:59 Last Admin: 01/14/19 21:10 Dose: 100 mg Documented by: [id number] Admin: 01/14/19 08:32 Dose: 100 mg Documented by: [id number] Admin: 01/13/19 22:17 Dose: 100 mg Documented by: [id number] Admin: 01/13/19 07:45 Dose: 100 mg Documented by: [id number] Admin: 01/12/19 20:56 Dose: 100 mg Documented by: [id number] Admin: 01/12/19 08:10 Dose: 100 mg Documented by: [id number] Admin: 01/11/19 20:57 Dose: 100 mg Documented by: [id number] Duloxetine HCl (Cymbalta) 60 mg PO QAM [facility] Stop: 02/11/19 08:59 Last Admin: 01/14/19 08:32 Dose: 60 mg Documented by: [id number] Admin: 01/13/19 07:45 Dose: 60 mg Documented by: [id number] Admin: 01/12/19 08:08 Dose: 60 mg Documented by: [id number] Fentanyl (Duragesic) 50 mcg TD Q72H [facility] Stop: 01/25/19 13:59 Last Admin: 01/14/19 14:11 Dose: 50 mcg Documented by: [id number] Admin: 01/11/19 14:44 Dose: 50 mcg Documented by: [id number] Ferrous Sulfate (Feosol) 325 mg PO AMHS [facility] Stop: 02/10/19 20:59 Last Admin: 01/14/19 21:13 Dose: 325 mg Documented by: [id number] Admin: 01/14/19 08:31 Dose: 325 mg Documented by: [id number] Admin: 01/13/19 22:17 Dose: 325 mg Documented by: [id number] Admin: 01/13/19 07:45 Dose: 325 mg Documented by: [id number] Admin: 01/12/19 20:57 Dose: 325 mg Documented by: [id number] Admin: 01/12/19 08:12 Dose: 325 mg Documented by: [id number] Admin: 01/11/19 20:56 Dose: 325 mg Documented by: [id number] Guaifenesin (Mucinex) 600 mg PO Q12 [facility] Stop: 02/10/19 12:36 Last Admin: 01/14/19 21:17 Dose: 600 mg Documented by: [id number] Admin: 01/14/19 08:32 Dose: 600 mg Documented by: [id number] Admin: 01/13/19 22:17 Dose: 600 mg Documented by: [id number] Admin: 01/13/19 07:46 Dose: 600 mg Documented by: [id number] Admin: 01/12/19 20:59 Dose: 600 mg Documented by: [id number] Admin: 01/12/19 08:54 Dose: 600 mg Documented by: [id number] Admin: 01/11/19 20:58 Dose: 600 mg Documented by: [id number] Admin: 01/11/19 14:44 Dose: 600 mg Documented by: [id number] Vancomycin HCl 1,000 mg/ (Sodium Chloride) 270 mls @ 125 mls/hr IV Q20H [facility] Stop: 01/17/19 21:59 Last Admin: 01/14/19 22:09 Dose: 125 mls/hr Documented by: [id number] Insulin Aspart (Novolog Flexpen) 0 units SC ACHS [facility] Stop: 02/10/19 16:29 Last Admin: 01/14/19 21:22 Dose: 3 units Documented by: [id number] Cosigned by: [id number] Admin: 01/14/19 16:58 Dose: 5 units Documented by: [id number] Cosigned by: [id number] Admin: 01/14/19 11:59 Dose: 7 units Documented by: [id number] Cosigned by: [id number] Admin: 01/14/19 08:37 Dose: 4 units Documented by: [id number] Cosigned by: [id number] Admin: 01/13/19 22:20 Dose: 12 units Documented by: [id number] Cosigned by: [id number] Admin: 01/13/19 17:38 Dose: 11 units Documented by: [id number] Cosigned by: [id number] Admin: 01/13/19 12:03 Dose: 3 units Documented by: [id number] Cosigned by: [id number] Admin: 01/13/19 07:43 Dose: 9 units Documented by: [id number] Cosigned by: [id number] Admin: 01/12/19 21:07 Dose: 7 units Documented by: [id number] Cosigned by: [id number] Admin: 01/12/19 17:12 Dose: 8 units Documented by: [id number] Cosigned by: [id number] Admin: 01/12/19 12:02 Dose: 10 units Documented by: [id number] Cosigned by: [id number] Admin: 01/12/19 08:07 Dose: 13 units Documented by: [id number] Cosigned by: [id number] Admin: 01/11/19 21:05 Dose: 5 units Documented by: [id number] Cosigned by: [id number] Admin: 01/11/19 17:13 Dose: 10 units Documented by: [id number] Cosigned by: [id number] Insulin Glargine (Lantus Solostar Pen) 25 units SC BID [facility] Stop: 02/12/19 21:44 Last Admin: 01/14/19 21:20 Dose: 25 units Documented by: [id number] Cosigned by: [id number] Admin: 01/14/19 08:36 Dose: 25 units Documented by: [id number] Cosigned by: [id number] Admin: 01/13/19 22:18 Dose: 25 units Documented by: [id number] Cosigned by: [id number] Levalbuterol HCl (Xopenex 1.25mg/3ml Neb) 1.25 mg NEB Q6R [facility] Stop: 02/10/19 13:59 Last Admin: 01/14/19 19:03 Dose: 1.25 mg Documented by: [id number] Admin: 01/14/19 14:32 Dose: 1.25 mg Documented by: [id number] Admin: 01/14/19 07:04 Dose: 1.25 mg Documented by: [id number] Admin: 01/14/19 02:22 Dose: 1.25 mg Documented by: [id number] Admin: 01/13/19 19:14 Dose: 1.25 mg Documented by: [id number] Admin: 01/13/19 13:34 Dose: 1.25 mg Documented by: [id number] Admin: 01/13/19 07:06 Dose: 1.25 mg Documented by: [id number] Admin: 01/13/19 01:42 Dose: 1.25 mg Documented by: [id number] Admin: 01/12/19 19:57 Dose: 1.25 mg Documented by: [id number] Admin: 01/12/19 14:38 Dose: 1.25 mg Documented by: [id number] Admin: 01/12/19 07:02 Dose: 1.25 mg Documented by: [id number] Admin: 01/12/19 01:57 Dose: 1.25 mg Documented by: [id number] Admin: 01/11/19 18:55 Dose: 1.25 mg Documented by: [id number] Admin: 01/11/19 13:59 Dose: 1.25 mg Documented by: [id number] Levothyroxine Sodium (Synthroid) 75 mcg PO DAILYBB [facility] Stop: 02/11/19 06:29 Last Admin: 01/14/19 06:22 Dose: 75 mcg Documented by: [id number] Admin: 01/13/19 06:13 Dose: 75 mcg Documented by: [id number] Admin: 01/12/19 05:57 Dose: 75 mcg Documented by: [id number] Magnesium Oxide (Mag-Ox) 400 mg PO QAM [facility] Stop: 02/11/19 08:59 Last Admin: 01/14/19 08:33 Dose: 400 mg Documented by: [id number] Admin: 01/13/19 07:46 Dose: 400 mg Documented by: [id number] Admin: 01/12/19 08:08 Dose: 400 mg Documented by: [id number] Metoprolol Tartrate (Lopressor) 25 mg PO BID [facility] Stop: 02/10/19 20:59 Last Admin: 01/14/19 21:17 Dose: 25 mg Documented by: [id number] Admin: 01/14/19 08:32 Dose: 25 mg Documented by: [id number] Admin: 01/13/19 22:17 Dose: 25 mg Documented by: [id number] Admin: 01/13/19 07:46 Dose: 25 mg Documented by: [id number] Admin: 01/12/19 20:58 Dose: 25 mg Documented by: [id number] Admin: 01/12/19 08:12 Dose: 25 mg Documented by: [id number] Admin: 01/11/19 20:56 Dose: 25 mg Documented by: [id number] Miscellaneous (Fentanyl Patch Check Placement) 1 ea N/A QS [facility] Stop: 02/10/19 15:59 Last Admin: 01/14/19 16:57 Dose: 1 ea Documented by: [id number] Admin: 01/14/19 08:35 Dose: 1 ea Documented by: [id number] Admin: 01/14/19 00:40 Dose: 1 ea Documented by: [id number] Admin: 01/13/19 16:30 Dose: 1 ea Documented by: [id number] Admin: 01/13/19 07:44 Dose: 1 ea Documented by: [id number] Admin: 01/13/19 00:41 Dose: 1 ea Documented by: [id number] Admin: 01/12/19 17:12 Dose: 1 ea Documented by: [id number] Admin: 01/12/19 08:06 Dose: 1 ea Documented by: [id number] Admin: 01/12/19 01:28 Dose: 1 ea Documented by: [id number] Admin: 01/11/19 15:26 Dose: 1 ea Documented by: [id number] Miscellaneous (Fentanyl Patch Remove & Waste) 1 ea N/A Q3D [facility] Stop: 02/13/19 13:54 Last Admin: 01/14/19 14:11 Dose: 1 ea Documented by: [id number] Cosigned by: [id number] Miscellaneous (Order Awaiting Action) 1 ea N/A QS [facility] Stop: 02/10/19 15:59 Last Admin: 01/14/19 15:41 Dose: Not Given Documented by: [id number] Admin: 01/14/19 08:35 Dose: Not Given Documented by: [id number] Admin: 01/14/19 01:07 Dose: Not Given Documented by: [id number] Admin: 01/13/19 16:31 Dose: Not Given Documented by: [id number] Admin: 01/13/19 08:37 Dose: Not Given Documented by: [id number] Admin: 01/13/19 00:42 Dose: Not Given Documented by: [id number] Admin: 01/12/19 15:09 Dose: Not Given Documented by: [id number] Admin: 01/12/19 08:06 Dose: Not Given Documented by: [id number] Admin: 01/12/19 01:29 Dose: 1 ea Documented by: [id number] Admin: 01/11/19 14:36 Dose: Not Given Documented by: [id number] Miscyndianeous (Order Awaiting Action) 1 ea N/A QS [facility] Stop: 02/11/19 00:00 Last Admin: 01/14/19 15:42 Dose: Not Given Documented by: [id number] Admin: 01/14/19 08:36 Dose: Not Given Documented by: [id number] Admin: 01/14/19 01:07 Dose: Not Given Documented by: [id number] Admin: 01/13/19 16:32 Dose: Not Given Documented by: [id number] Admin: 01/13/19 08:37 Dose: Not Given Documented by: [id number] Admin: 01/13/19 00:42 Dose: Not Given Documented by: [id number] Admin: 01/12/19 15:09 Dose: Not Given Documented by: [id number] Admin: 01/12/19 08:06 Dose: Not Given Documented by: [id number] Admin: 01/12/19 01:29 Dose: 1 ea Documented by: [id number] Montelukast Sodium (Singulair) 10 mg PO PM [facility] Stop: 02/10/19 20:59 Last Admin: 01/14/19 21:14 Dose: 10 mg Documented by: [id number] Admin: 01/13/19 22:17 Dose: 10 mg Documented by: [id number] Admin: 01/12/19 21:02 Dose: 10 mg Documented by: [id number] Admin: 01/11/19 20:59 Dose: 10 mg Documented by: [id number] Mupirocin (Bactroban 2%) 1 appln EXT BID [facility] Stop: 02/10/19 20:59 Last Admin: 01/14/19 21:18 Dose: 1 appln Documented by: [id number] Admin: 01/14/19 08:40 Dose: 1 appln Documented by: [id number] Admin: 01/13/19 22:17 Dose: 1 appln Documented by: [id number] Admin: 01/13/19 09:04 Dose: 1 appln Documented by: [id number] Admin: 01/12/19 20:55 Dose: 1 appln Documented by: [id number] Admin: 01/12/19 08:08 Dose: 1 appln Documented by: [id number] Admin: 01/11/19 21:02 Dose: 1 appln Documented by: [id number] Pantoprazole Sodium (Protonix) 40 mg PO DAILYBB [facility] Stop: 02/11/19 06:29 Last Admin: 01/14/19 06:22 Dose: 40 mg Documented by: [id number] Admin: 01/13/19 06:13 Dose: 40 mg Documented by: [id number] Admin: 01/12/19 05:57 Dose: 40 mg Documented by: [id number] Polyethylene Glycol (Miralax Powder Packet) 17 gm PO Q2D@0900 [facility] Stop: 02/11/19 08:59 Last Admin: 01/13/19 07:46 Dose: 17 gm Documented by: [id number] Admin: 01/12/19 08:13 Dose: Not Given Documented by: [id number] Prednisone (Prednisone) 40 mg PO DAILY [facility] Stop: 02/10/19 19:59 Last Admin: 01/14/19 08:31 Dose: 40 mg Documented by: [id number] Admin: 01/13/19 07:51 Dose: 40 mg Documented by: [id number] Admin: 01/12/19 08:09 Dose: 40 mg Documented by: [id number] Admin: 01/11/19 20:56 Dose: 40 mg Documented by: [id number] Pregabalin (Lyrica) 50 mg PO PC [facility] Stop: 02/10/19 13:19 Last Admin: 01/14/19 17:03 Dose: 50 mg Documented by: [id number] Admin: 01/14/19 12:02 Dose: 50 mg Documented by: [id number] Admin: 01/14/19 08:33 Dose: 50 mg Documented by: [id number] Admin: 01/13/19 17:37 Dose: 50 mg Documented by: [id number] Admin: 01/13/19 12:07 Dose: 50 mg Documented by: [id number] Admin: 01/13/19 07:57 Dose: 50 mg Documented by: [id number] Admin: 01/12/19 17:12 Dose: 50 mg Documented by: [id number] Admin: 01/12/19 12:02 Dose: 50 mg Documented by: [id number] Admin: 01/12/19 08:19 Dose: 50 mg Documented by: [id number] Admin: 01/11/19 17:09 Dose: 50 mg Documented by: [id number] Admin: 01/11/19 14:44 Dose: 50 mg Documented by: [id number] Ranitidine HCl (Zantac) 150 mg PO BID [facility] Stop: 02/10/19 20:59 Last Admin: 01/14/19 21:16 Dose: 150 mg Documented by: [id number] Admin: 01/14/19 08:32 Dose: 150 mg Documented by: [id number] Admin: 01/13/19 22:17 Dose: 150 mg Documented by: [id number] Admin: 01/13/19 07:45 Dose: 150 mg Documented by: [id number] Admin: 01/12/19 21:00 Dose: 150 mg Documented by: [id number] Admin: 01/12/19 08:09 Dose: 150 mg Documented by: [id number] Admin: 01/11/19 20:58 Dose: 150 mg Documented by: [id number] Fluticasone/Salmeterol (Advair Diskus 500/50) 1 puffs INH BID [facility] Stop: 02/10/19 20:59 Last Admin: 01/14/19 21:07 Dose: 1 puffs Documented by: [id number] Admin: 01/14/19 08:34 Dose: 1 puffs Documented by: [id number] Admin: 01/13/19 22:16 Dose: 1 puffs Documented by: [id number] Admin: 01/13/19 07:47 Dose: 1 puffs Documented by: [id number] Admin: 01/12/19 20:54 Dose: 1 puffs Documented by: [id number] Admin: 01/12/19 08:07 Dose: 1 puffs Documented by: [id number] Admin: 01/11/19 20:55 Dose: 1 puffs Documented by: [id number] Sennosides (Senokot) 8.6 mg PO BID [facility] Stop: 02/10/19 20:59 Last Admin: 01/14/19 21:15 Dose: 8.6 mg Documented by: [id number] Admin: 01/14/19 08:32 Dose: 8.6 mg Documented by: [id number] Admin: 01/13/19 22:18 Dose: 8.6 mg Documented by: [id number] Admin: 01/13/19 07:46 Dose: 8.6 mg Documented by: [id number] Admin: 01/12/19 20:59 Dose: 8.6 mg Documented by: [id number] Admin: 01/12/19 08:13 Dose: 8.6 mg Documented by: [id number] Admin: 01/11/19 20:57 Dose: 8.6 mg Documented by: [id number] Simethicone (Mylicon) 160 mg PO PC ORACIO Stop: 02/10/19 13:19 Last Admin: 01/14/19 17:01 Dose: 160 mg Documented by: [id number] Admin: 01/14/19 12:00 Dose: 160 mg Documented by: [id number] Admin: 01/14/19 08:34 Dose: 160 mg Documented by: [id number] Admin: 01/13/19 17:38 Dose: 160 mg Documented by: [id number] Admin: 01/13/19 12:04 Dose: 160 mg Documented by: [id number] Admin: 01/13/19 07:49 Dose: 160 mg Documented by: [id number] Admin: 01/12/19 17:13 Dose: Not Given Documented by: [id number] Admin: 01/12/19 12:02 Dose: Not Given Documented by: [id number] Admin: 01/12/19 08:09 Dose: 160 mg Documented by: [id number] Admin: 01/11/19 17:14 Dose: Not Given Documented by: [id number] Admin: 01/11/19 14:44 Dose: Not Given Documented by: [id number] Spironolactone (Aldactone) 12.5 mg PO QAM ORACIO Stop: 02/11/19 08:59 Last Admin: 01/14/19 08:32 Dose: 12.5 mg Documented by: [id number] Admin: 01/13/19 07:46 Dose: 12.5 mg Documented by: [id number] Admin: 01/12/19 08:10 Dose: 12.5 mg Documented by: [id number] Sucralfate (Carafate Tab) 1 gm PO BID@1000,2200 ORACIO Stop: 02/10/19 21:59 Last Admin: 01/14/19 21:16 Dose: 1 gm Documented by: [id number] Admin: 01/14/19 10:47 Dose: 1 gm Documented by: [id number] Admin: 01/13/19 22:16 Dose: 1 gm Documented by: [id number] Admin: 01/13/19 09:04 Dose: 1 gm Documented by: [id number] Admin: 01/12/19 21:01 Dose: 1 gm Documented by: [id number] Admin: 01/12/19 08:10 Dose: 1 gm Documented by: [id number] Admin: 01/11/19 22:10 Dose: 1 gm Documented by: [id number] Tiotropium Aurora (Spiriva) 2 puffs INH PM ORACIO Stop: 02/10/19 20:59 Last Admin: 01/14/19 21:09 Dose: 2 puffs Documented by: [id number] Admin: 01/13/19 22:18 Dose: 2 puffs Documented by: [id number] Admin: 01/12/19 21:00 Dose: 2 puffs Documented by: [id number] Admin: 01/11/19 20:58 Dose: 2 puffs Documented by: [id number] Trazodone HCl (Desyrel) 50 mg PO HS ORACIO Stop: 02/10/19 20:59 Last Admin: 01/14/19 21:13 Dose: 50 mg Documented by: [id number] Admin: 01/13/19 22:17 Dose: 50 mg Documented by: [id number] Admin: 01/12/19 20:57 Dose: 50 mg Documented by: [id number] Admin: 01/11/19 20:57 Dose: 50 mg Documented by: [id number] Warfarin Sodium (Coumadin) 1 mg PO DAILY@1600 ORACIO Stop: 01/15/19 16:01 Last Admin: 01/14/19 16:56 Dose: 1 mg Documented by: [id number] Admin: 01/13/19 16:29 Dose: 1 mg Documented by: [id number] Admin: 01/12/19 17:28 Dose: 1 mg Documented by: [id number] Discontinued Medications Aspirin (Aspirin) 324 mg PO NOW STA Stop: 01/11/19 07:59 Last Admin: 01/11/19 08:20 Dose: Not Given Documented by: [id number] Aspirin (Aspirin Chew) Confirm Administered Dose 324 mg .ROUTE .STK-MED ONE Stop: 01/11/19 08:16 Last Admin: 01/11/19 08:17 Dose: 324 mg Documented by: [id number] Hydromorphone HCl (Dilaudid) 0.25 mg IV Q15M PRN PRN Reason: Pain Stop: 01/25/19 07:57 Last Admin: 01/11/19 08:18 Dose: 0.25 mg Documented by: [id number] Potassium Chloride (K Tamir / Wtr) 10 meq in 100 mls @ 100 mls/hr IV Q1H ORACIO Stop: 01/11/19 10:59 Last Infusion: 01/11/19 11:57 Dose: 0 mls/hr Documented by: [id number] Admin: 01/11/19 10:57 Dose: 100 mls/hr Documented by: [id number] Infusion: 01/11/19 10:45 Dose: 0 mls/hr Documented by: [id number] Admin: 01/11/19 09:39 Dose: 100 mls/hr Documented by: [id number] Sodium Chloride (Nss 1000ml) 500 mls @ 999 mls/hr IV .Q31M ONE Stop: 01/11/19 10:39 Last Infusion: 01/11/19 11:29 Dose: 0 mls/hr Documented by: [id number] Admin: 01/11/19 10:58 Dose: 999 mls/hr Documented by: [id number] Piperacillin Sod/Tazobactam Sod (Zosyn) 4.5 gm in 120 mls @ 240 mls/hr IV NOW ONE Stop: 01/11/19 10:38 Last Infusion: 01/11/19 11:10 Dose: 0 mls/hr Documented by: [id number] Admin: 01/11/19 10:40 Dose: 240 mls/hr Documented by: [id number] Vancomycin HCl 2,250 mg/ (Sodium Chloride) 545 mls @ 200 mls/hr IV NOW ONE Stop: 01/11/19 12:52 Last Infusion: 01/11/19 14:09 Dose: 0 mls/hr Documented by: [id number] Admin: 01/11/19 11:13 Dose: 200 mls/hr Documented by: [id number] Levofloxacin/Dextrose (Levaquin/D5w) 750 mg in 150 mls @ 100 mls/hr IV NOW STA Stop: 01/11/19 11:38 Last Infusion: 01/11/19 12:11 Dose: 0 mls/hr Documented by: [id number] Admin: 01/11/19 10:41 Dose: 100 mls/hr Documented by: [id number] Sodium Chloride (Nss 1000ml) 500 mls @ 999 mls/hr IV .Q31M ONE Stop: 01/11/19 11:44 Last Infusion: 01/11/19 11:52 Dose: 0 mls/hr Documented by: [id number] Admin: 01/11/19 11:21 Dose: 999 mls/hr Documented by: [id number] Piperacillin Sod/Tazobactam (Sod 4.5 gm/ Dextrose) 120 mls @ 30 mls/hr IV Q8H [facility]; Protocol Stop: 01/18/19 16:59 Last Infusion: 01/14/19 21:05 Dose: 0 mls/hr Documented by: [id number] Admin: 01/14/19 16:55 Dose: 30 mls/hr Documented by: [id number] Infusion: 01/14/19 12:34 Dose: 0 mls/hr Documented by: [id number] Admin: 01/14/19 08:30 Dose: 30 mls/hr Documented by: [id number] Infusion: 01/14/19 06:15 Dose: 0 mls/hr Documented by: [id number] Admin: 01/14/19 01:59 Dose: 30 mls/hr Documented by: [id number] Infusion: 01/13/19 20:40 Dose: 0 mls/hr Documented by: [id number] Admin: 01/13/19 16:37 Dose: 30 mls/hr Documented by: [id number] Infusion: 01/13/19 13:06 Dose: 0 mls/hr Documented by: [id number] Admin: 01/13/19 09:02 Dose: 30 mls/hr Documented by: [id number] Infusion: 01/13/19 04:58 Dose: 0 mls/hr Documented by: [id number] Admin: 01/13/19 01:05 Dose: 30 mls/hr Documented by: [id number] Infusion: 01/12/19 21:15 Dose: 0 mls/hr Documented by: [id number] Admin: 01/12/19 17:12 Dose: 30 mls/hr Documented by: [id number] Infusion: 01/12/19 13:17 Dose: 0 mls/hr Documented by: [id number] Admin: 01/12/19 08:55 Dose: 30 mls/hr Documented by: [id number] Infusion: 01/12/19 05:40 Dose: 0 mls/hr Documented by: [id number] Admin: 01/12/19 01:29 Dose: 30 mls/hr Documented by: [id number] Infusion: 01/11/19 21:10 Dose: 0 mls/hr Documented by: [id number] Admin: 01/11/19 17:10 Dose: 30 mls/hr Documented by: [id number] Vancomycin HCl 1,250 mg/ (Sodium Chloride) 275 mls @ 125 mls/hr IV Q16H [facility]ACIO Stop: 01/13/19 12:30 Last Infusion: 01/13/19 13:07 Dose: 0 mls/hr Documented by: [id number] Admin: 01/13/19 10:43 Dose: 125 mls/hr Documented by: [id number] Infusion: 01/12/19 19:25 Dose: 0 mls/hr Documented by: [id number] Admin: 01/12/19 17:12 Dose: 125 mls/hr Documented by: [id number] Infusion: 01/12/19 03:50 Dose: 0 mls/hr Documented by: [id number] Admin: 01/12/19 01:29 Dose: 125 mls/hr Documented by: [id number] Vancomycin HCl 1,000 mg/ (Sodium Chloride) 270 mls @ 125 mls/hr IV Q16H [facility]ACIO Stop: 01/19/19 01:59 Last Admin: 01/14/19 19:12 Dose: Not Given Documented by: [id number] Infusion: 01/14/19 04:24 Dose: 0 mls/hr Documented by: [id number] Admin: 01/14/19 01:58 Dose: 125 mls/hr Documented by: [id number] Insulin Glargine (Lantus Solostar Pen) 0 units SC BID ORACIO; Protocol Stop: 02/10/19 20:59 Last Admin: 01/13/19 07:50 Dose: 10 units Documented by: [id number] Cosigned by: [id number] Admin: 01/12/19 21:06 Dose: 15 units Documented by: [id number] Cosigned by: [id number] Admin: 01/12/19 08:14 Dose: 15 units Documented by: [id number] Cosigned by: [id number] Admin: 01/11/19 21:04 Dose: 15 units Documented by: [id number] Cosigned by: [id number] Ioversol (Optiray 320 125ml) 118 ml IV ONCE PRN PRN Reason: Interaction Checking Stop: 01/15/19 09:27 Last Admin: 01/11/19 09:28 Dose: 118 ml Documented by: [id number] Levalbuterol HCl (Xopenex 1.25mg/3ml Neb) 1.25 mg NEB NOW STA Stop: 01/11/19 07:59 Last Admin: 01/11/19 09:53 Dose: 1.25 mg Documented by: [id number] Levalbuterol HCl (Xopenex 1.25mg/0.5ml Neb) 1.25 mg NEB Q6H [facility] Stop: 02/10/19 12:44 Last Admin: 01/11/19 14:09 Dose: Not Given Documented by: [id number] Ondansetron HCl (Zofran) 4 mg IV NOW STA Stop: 01/11/19 07:59 Last Admin: 01/11/19 08:18 Dose: 4 mg Documented by: [id number] Ondansetron HCl (Zofran) 4 mg IV NOW STA Stop: 01/11/19 08:47 Last Admin: 01/11/19 10:46 Dose: Not Given Documented by: [id number] Potassium Chloride (Klor-Con M10) 40 meq PO NOW STA Stop: 01/11/19 08:47 Last Admin: 01/11/19 09:39 Dose: 40 meq Documented by: [id number] Potassium Chloride (Klor-Con M10) 20 meq PO NOW STA Stop: 01/13/19 08:14 Last Admin: 01/13/19 09:03 Dose: 20 meq Documented by: [id number] Medical Decision Making Differential Diagnosis Differential diagnoses includes but is not limited to acute coronary syndrome, myocardial infarction, pericarditis, pulmonary embolus, aortic dissection, pneumonia, pneumothorax, musculoskeletal, shingles, esophageal. Medical Records Attestation: I reviewed the patient's medical records. Home Medications Current Medication List: was personally reviewed by me Laboratory Data Attestation: I reviewed the patient's lab results. Result diagrams: 01/13/19 05:35 01/14/19 07:05 Lab Results 01/11/19 01/11/19 01/11/19 Range/Units 08:00 08:00 08:00 WBC 14.47 H (4.8-10.8) K/uL RBC 4.31 (4.2-5.4) M/uL Hgb 14.7 (12.0-16.0) g/dL Hct 42.8 (37-47) % MCV 99.3 (80-100) fL MCH 34.1 H (25-34) pg MCHC 34.3 (32-36) g/dL RDW Std Deviation 56.8 H (36.4-46.3) fL RDW Coeff of Kenneth 15.6 H (11.5-14.5) % Plt Count 221 (130-400) K/uL MPV 11.9 H (7.4-10.4) fL Immature Gran % (Auto) 0.9 % Neut % (Auto) 79.8 % Lymph % (Auto) 11.9 % Evans % (Auto) 6.1 % Eos % (Auto) 1.2 % Baso % (Auto) 0.1 % Immature Gran # (Auto) 0.13 H (0.00-0.02) K/uL Neut # (Auto) 11.56 H (1.4-6.5) K/uL Lymph # (Auto) 1.72 (1.2-3.4) K/uL Evans # (Auto) 0.88 H (0.11-0.59) K/uL Eos # (Auto) 0.17 (0-0.5) K/uL Baso # (Auto) 0.01 (0-0.2) K/uL PT Cancelled Cancelled INR Cancelled Cancelled APTT Cancelled PTT Ratio Cancelled Sodium (136-145) mmol/L Potassium (3.5-5.1) mmol/L Chloride (98-107) mmol/L Carbon Dioxide (21-32) mmol/L Anion Gap (3-11) BUN (7-18) mg/dl Creatinine (0.6-1.2) mg/dl Est Cr Clr Drug Dosing ml/min Est GFR ( Amer) Est GFR (Non-Af Amer) BUN/Creatinine Ratio (10-20) Glucose (70-99) mg/dl POC Glucose (70-99) Lactate (0.4-2.0) mmol/L Calcium (8.5-10.1) mg/dl Total Bilirubin (0.2-1) mg/dl AST (15-37) U/L ALT (12-78) U/L Alkaline Phosphatase (45-117) U/L Total Creatine Kinase (26-192) U/L CK-MB (CK-2) (0.5-3.6) ng/ml CK/CKMB % Calc Troponin I (0-0.045) ng/ml NT-Pro-B Natriuret Pep (0-1800) pg/ml Total Protein (6.4-8.2) gm/dl Albumin (3.4-5.0) gm/dl Globulin (2.5-4.0) gm/dl Albumin/Globulin Ratio (0.9-2) Procalcitonin Specimen Hemolysis Urine Color Urine Appearance (Clear) Urine pH (4.5-7.5) Ur Specific [place] (1.000-1.030) Urine Protein (Negative) Urine Glucose (UA) (Negative) Urine Ketones (Negative) Urine Blood (Negative) Urine Nitrite (Negative) Urine Bilirubin (Negative) Urine Urobilinogen (Negative) Ur Leukocyte Esterase (Negative) Nasal Screen MRSA (PCR) (Negative) Vancomycin Trough (See Comment) mcg/ml Influenza Type A Ag (Neg) Influenza Type A (PCR) (Neg) Influenza Type B Ag (Neg) Influenza Type B (PCR) (Neg) 01/11/19 01/11/19 01/11/19 Range/Units 08:00 08:00 08:00 WBC (4.8-10.8) K/uL RBC (4.2-5.4) M/uL Hgb (12.0-16.0) g/dL Hct (37-47) % MCV (80-100) fL MCH (25-34) pg MCHC (32-36) g/dL RDW Std Deviation (36.4-46.3) fL RDW Coeff of Kenneth (11.5-14.5) % Plt Count (130-400) K/uL MPV (7.4-10.4) fL Immature Gran % (Auto) % Neut % (Auto) % Lymph % (Auto) % Evans % (Auto) % Eos % (Auto) % Baso % (Auto) % Immature Gran # (Auto) (0.00-0.02) K/uL Neut # (Auto) (1.4-6.5) K/uL Lymph # (Auto) (1.2-3.4) K/uL Evans # (Auto) (0.11-0.59) K/uL Eos # (Auto) (0-0.5) K/uL Baso # (Auto) (0-0.2) K/uL PT INR APTT PTT Ratio Sodium 136 (136-145) mmol/L Potassium 3.3 L (3.5-5.1) mmol/L Chloride 98 (98-107) mmol/L Carbon Dioxide 30 (21-32) mmol/L Anion Gap 9.0 (3-11) BUN 34 H (7-18) mg/dl Creatinine 1.16 (0.6-1.2) mg/dl Est Cr Clr Drug Dosing 52.5 ml/min Est GFR ( Amer) 52.6 Est GFR (Non-Af Amer) 45.4 BUN/Creatinine Ratio 29.7 H (10-20) Glucose 162 H (70-99) mg/dl POC Glucose (70-99) Lactate (0.4-2.0) mmol/L Calcium 8.8 (8.5-10.1) mg/dl Total Bilirubin 0.7 (0.2-1) mg/dl AST 17 (15-37) U/L ALT 20 (12-78) U/L Alkaline Phosphatase 84 (45-117) U/L Total Creatine Kinase 28 (26-192) U/L CK-MB (CK-2) < 1.0 (0.5-3.6) ng/ml CK/CKMB % Calc TNP Troponin I 0.041 (0-0.045) ng/ml NT-Pro-B Natriuret Pep 611 (0-1800) pg/ml Total Protein 6.4 (6.4-8.2) gm/dl Albumin 2.7 L (3.4-5.0) gm/dl Globulin 3.7 (2.5-4.0) gm/dl Albumin/Globulin Ratio 0.7 L (0.9-2) Procalcitonin Cancelled Specimen Hemolysis Urine Color Urine Appearance (Clear) Urine pH (4.5-7.5) Ur Specific [place] (1.000-1.030) Urine Protein (Negative) Urine Glucose (UA) (Negative) Urine Ketones (Negative) Urine Blood (Negative) Urine Nitrite (Negative) Urine Bilirubin (Negative) Urine Urobilinogen (Negative) Ur Leukocyte Esterase (Negative) Nasal Screen MRSA (PCR) (Negative) Vancomycin Trough (See Comment) mcg/ml Influenza Type A Ag (Neg) Influenza Type A (PCR) (Neg) Influenza Type B Ag (Neg) Influenza Type B (PCR) (Neg) 01/11/19 01/11/19 01/11/19 Range/Units 08:50 08:50 09:07 WBC (4.8-10.8) K/uL RBC (4.2-5.4) M/uL Hgb (12.0-16.0) g/dL Hct (37-47) % MCV (80-100) fL MCH (25-34) pg MCHC (32-36) g/dL RDW Std Deviation (36.4-46.3) fL RDW Coeff of Kenneth (11.5-14.5) % Plt Count (130-400) K/uL MPV (7.4-10.4) fL Immature Gran % (Auto) % Neut % (Auto) % Lymph % (Auto) % Evans % (Auto) % Eos % (Auto) % Baso % (Auto) % Immature Gran # (Auto) (0.00-0.02) K/uL Neut # (Auto) (1.4-6.5) K/uL Lymph # (Auto) (1.2-3.4) K/uL Evans # (Auto) (0.11-0.59) K/uL Eos # (Auto) (0-0.5) K/uL Baso # (Auto) (0-0.2) K/uL PT INR APTT PTT Ratio Sodium (136-145) mmol/L Potassium (3.5-5.1) mmol/L Chloride (98-107) mmol/L Carbon Dioxide (21-32) mmol/L Anion Gap (3-11) BUN (7-18) mg/dl Creatinine (0.6-1.2) mg/dl Est Cr Clr Drug Dosing ml/min Est GFR ( Amer) Est GFR (Non-Af Amer) BUN/Creatinine Ratio (10-20) Glucose (70-99) mg/dl POC Glucose (70-99) Lactate 2.6 H* (0.4-2.0) mmol/L Calcium (8.5-10.1) mg/dl Total Bilirubin (0.2-1) mg/dl AST (15-37) U/L ALT (12-78) U/L Alkaline Phosphatase (45-117) U/L Total Creatine Kinase (26-192) U/L CK-MB (CK-2) (0.5-3.6) ng/ml CK/CKMB % Calc Troponin I (0-0.045) ng/ml NT-Pro-B Natriuret Pep (0-1800) pg/ml Total Protein (6.4-8.2) gm/dl Albumin (3.4-5.0) gm/dl Globulin (2.5-4.0) gm/dl Albumin/Globulin Ratio (0.9-2) Procalcitonin Specimen Hemolysis Urine Color Urine Appearance (Clear) Urine pH (4.5-7.5) Ur Specific [place] (1.000-1.030) Urine Protein (Negative) Urine Glucose (UA) (Negative) Urine Ketones (Negative) Urine Blood (Negative) Urine Nitrite (Negative) Urine Bilirubin (Negative) Urine Urobilinogen (Negative) Ur Leukocyte Esterase (Negative) Nasal Screen MRSA (PCR) (Negative) Vancomycin Trough (See Comment) mcg/ml Influenza Type A Ag Neg for Influ A (Neg) Influenza Type A (PCR) Neg for Influ A (Neg) Influenza Type B Ag Neg for Influ B (Neg) Influenza Type B (PCR) Neg for Influ B (Neg) 01/11/19 01/11/19 01/11/19 Range/Units 09:07 09:07 09:07 WBC (4.8-10.8) K/uL RBC (4.2-5.4) M/uL Hgb (12.0-16.0) g/dL Hct (37-47) % MCV (80-100) fL MCH (25-34) pg MCHC (32-36) g/dL RDW Std Deviation (36.4-46.3) fL RDW Coeff of Kenneth (11.5-14.5) % Plt Count (130-400) K/uL MPV (7.4-10.4) fL Immature Gran % (Auto) % Neut % (Auto) % Lymph % (Auto) % Evans % (Auto) % Eos % (Auto) % Baso % (Auto) % Immature Gran # (Auto) (0.00-0.02) K/uL Neut # (Auto) (1.4-6.5) K/uL Lymph # (Auto) (1.2-3.4) K/uL Evans # (Auto) (0.11-0.59) K/uL Eos # (Auto) (0-0.5) K/uL Baso # (Auto) (0-0.2) K/uL PT 28.1 H INR 3.0 H APTT 37.2 H PTT Ratio 1.4 Sodium (136-145) mmol/L Potassium (3.5-5.1) mmol/L Chloride (98-107) mmol/L Carbon Dioxide (21-32) mmol/L Anion Gap (3-11) BUN (7-18) mg/dl Creatinine (0.6-1.2) mg/dl Est Cr Clr Drug Dosing ml/min Est GFR ( Amer) Est GFR (Non-Af Amer) BUN/Creatinine Ratio (10-20) Glucose (70-99) mg/dl POC Glucose (70-99) Lactate (0.4-2.0) mmol/L Calcium (8.5-10.1) mg/dl Total Bilirubin (0.2-1) mg/dl AST (15-37) U/L ALT (12-78) U/L Alkaline Phosphatase (45-117) U/L Total Creatine Kinase (26-192) U/L CK-MB (CK-2) (0.5-3.6) ng/ml CK/CKMB % Calc Troponin I 0.043 (0-0.045) ng/ml NT-Pro-B Natriuret Pep (0-1800) pg/ml Total Protein (6.4-8.2) gm/dl Albumin (3.4-5.0) gm/dl Globulin (2.5-4.0) gm/dl Albumin/Globulin Ratio (0.9-2) Procalcitonin 0.06 Specimen Hemolysis Urine Color Urine Appearance (Clear) Urine pH (4.5-7.5) Ur Specific [place] (1.000-1.030) Urine Protein (Negative) Urine Glucose (UA) (Negative) Urine Ketones (Negative) Urine Blood (Negative) Urine Nitrite (Negative) Urine Bilirubin (Negative) Urine Urobilinogen (Negative) Ur Leukocyte Esterase (Negative) Nasal Screen MRSA (PCR) (Negative) Vancomycin Trough (See Comment) mcg/ml Influenza Type A Ag (Neg) Influenza Type A (PCR) (Neg) Influenza Type B Ag (Neg) Influenza Type B (PCR) (Neg) 01/11/19 01/11/19 01/11/19 Range/Units 13:20 15:00 15:00 WBC (4.8-10.8) K/uL RBC (4.2-5.4) M/uL Hgb (12.0-16.0) g/dL Hct (37-47) % MCV (80-100) fL MCH (25-34) pg MCHC (32-36) g/dL RDW Std Deviation (36.4-46.3) fL RDW Coeff of Kenneth (11.5-14.5) % Plt Count (130-400) K/uL MPV (7.4-10.4) fL Immature Gran % (Auto) % Neut % (Auto) % Lymph % (Auto) % Evans % (Auto) % Eos % (Auto) % Baso % (Auto) % Immature Gran # (Auto) (0.00-0.02) K/uL Neut # (Auto) (1.4-6.5) K/uL Lymph # (Auto) (1.2-3.4) K/uL Evans # (Auto) (0.11-0.59) K/uL Eos # (Auto) (0-0.5) K/uL Baso # (Auto) (0-0.2) K/uL PT INR APTT PTT Ratio Sodium (136-145) mmol/L Potassium (3.5-5.1) mmol/L Chloride (98-107) mmol/L Carbon Dioxide (21-32) mmol/L Anion Gap (3-11) BUN (7-18) mg/dl Creatinine (0.6-1.2) mg/dl Est Cr Clr Drug Dosing ml/min Est GFR ( Amer) Est GFR (Non-Af Amer) BUN/Creatinine Ratio (10-20) Glucose (70-99) mg/dl POC Glucose (70-99) Lactate 1.9 (0.4-2.0) mmol/L Calcium (8.5-10.1) mg/dl Total Bilirubin (0.2-1) mg/dl AST (15-37) U/L ALT (12-78) U/L Alkaline Phosphatase (45-117) U/L Total Creatine Kinase (26-192) U/L CK-MB (CK-2) (0.5-3.6) ng/ml CK/CKMB % Calc Troponin I 0.040 (0-0.045) ng/ml NT-Pro-B Natriuret Pep (0-1800) pg/ml Total Protein (6.4-8.2) gm/dl Albumin (3.4-5.0) gm/dl Globulin (2.5-4.0) gm/dl Albumin/Globulin Ratio (0.9-2) Procalcitonin Specimen Hemolysis Urine Color Urine Appearance (Clear) Urine pH (4.5-7.5) Ur Specific [place] (1.000-1.030) Urine Protein (Negative) Urine Glucose (UA) (Negative) Urine Ketones (Negative) Urine Blood (Negative) Urine Nitrite (Negative) Urine Bilirubin (Negative) Urine Urobilinogen (Negative) Ur Leukocyte Esterase (Negative) Nasal Screen MRSA (PCR) Positive A (Negative) Vancomycin Trough (See Comment) mcg/ml Influenza Type A Ag (Neg) Influenza Type A (PCR) (Neg) Influenza Type B Ag (Neg) Influenza Type B (PCR) (Neg) 01/11/19 01/11/19 01/11/19 Range/Units 16:35 18:13 20:42 WBC (4.8-10.8) K/uL RBC (4.2-5.4) M/uL Hgb (12.0-16.0) g/dL Hct (37-47) % MCV (80-100) fL MCH (25-34) pg MCHC (32-36) g/dL RDW Std Deviation (36.4-46.3) fL RDW Coeff of Kenneth (11.5-14.5) % Plt Count (130-400) K/uL MPV (7.4-10.4) fL Immature Gran % (Auto) % Neut % (Auto) % Lymph % (Auto) % Evans % (Auto) % Eos % (Auto) % Baso % (Auto) % Immature Gran # (Auto) (0.00-0.02) K/uL Neut # (Auto) (1.4-6.5) K/uL Lymph # (Auto) (1.2-3.4) K/uL Evans # (Auto) (0.11-0.59) K/uL Eos # (Auto) (0-0.5) K/uL Baso # (Auto) (0-0.2) K/uL PT INR APTT PTT Ratio Sodium (136-145) mmol/L Potassium (3.5-5.1) mmol/L Chloride (98-107) mmol/L Carbon Dioxide (21-32) mmol/L Anion Gap (3-11) BUN (7-18) mg/dl Creatinine (0.6-1.2) mg/dl Est Cr Clr Drug Dosing ml/min Est GFR ( Amer) Est GFR (Non-Af Amer) BUN/Creatinine Ratio (10-20) Glucose (70-99) mg/dl POC Glucose 160 H 244 H (70-99) Lactate (0.4-2.0) mmol/L Calcium (8.5-10.1) mg/dl Total Bilirubin (0.2-1) mg/dl AST (15-37) U/L ALT (12-78) U/L Alkaline Phosphatase (45-117) U/L Total Creatine Kinase (26-192) U/L CK-MB (CK-2) (0.5-3.6) ng/ml CK/CKMB % Calc Troponin I (0-0.045) ng/ml NT-Pro-B Natriuret Pep (0-1800) pg/ml Total Protein (6.4-8.2) gm/dl Albumin (3.4-5.0) gm/dl Globulin (2.5-4.0) gm/dl Albumin/Globulin Ratio (0.9-2) Procalcitonin Specimen Hemolysis Urine Color Yellow Urine Appearance Clear (Clear) Urine pH 7.0 (4.5-7.5) Ur Specific [place] > 1.045 H (1.000-1.030) Urine Protein Negative (Negative) Urine Glucose (UA) Negative (Negative) Urine Ketones Negative (Negative) Urine Blood Negative (Negative) Urine Nitrite Negative (Negative) Urine Bilirubin Negative (Negative) Urine Urobilinogen Negative (Negative) Ur Leukocyte Esterase Negative (Negative) Nasal Screen MRSA (PCR) (Negative) Vancomycin Trough (See Comment) mcg/ml Influenza Type A Ag (Neg) Influenza Type A (PCR) (Neg) Influenza Type B Ag (Neg) Influenza Type B (PCR) (Neg) 01/11/19 01/12/19 01/12/19 Range/Units 21:02 05:22 05:22 WBC 10.93 H (4.8-10.8) K/uL RBC 3.88 L (4.2-5.4) M/uL Hgb 12.9 (12.0-16.0) g/dL Hct 39.0 (37-47) % MCV 100.5 H (80-100) fL MCH 33.2 (25-34) pg MCHC 33.1 (32-36) g/dL RDW Std Deviation 56.2 H (36.4-46.3) fL RDW Coeff of Kenneth 15.5 H (11.5-14.5) % Plt Count 161 (130-400) K/uL MPV 12.2 H (7.4-10.4) fL Immature Gran % (Auto) % Neut % (Auto) % Lymph % (Auto) % Evans % (Auto) % Eos % (Auto) % Baso % (Auto) % Immature Gran # (Auto) (0.00-0.02) K/uL Neut # (Auto) (1.4-6.5) K/uL Lymph # (Auto) (1.2-3.4) K/uL Evans # (Auto) (0.11-0.59) K/uL Eos # (Auto) (0-0.5) K/uL Baso # (Auto) (0-0.2) K/uL PT 25.5 H INR 2.7 H APTT PTT Ratio Sodium (136-145) mmol/L Potassium (3.5-5.1) mmol/L Chloride (98-107) mmol/L Carbon Dioxide (21-32) mmol/L Anion Gap (3-11) BUN (7-18) mg/dl Creatinine (0.6-1.2) mg/dl Est Cr Clr Drug Dosing ml/min Est GFR ( Amer) Est GFR (Non-Af Amer) BUN/Creatinine Ratio (10-20) Glucose (70-99) mg/dl POC Glucose (70-99) Lactate (0.4-2.0) mmol/L Calcium (8.5-10.1) mg/dl Total Bilirubin (0.2-1) mg/dl AST (15-37) U/L ALT (12-78) U/L Alkaline Phosphatase (45-117) U/L Total Creatine Kinase (26-192) U/L CK-MB (CK-2) (0.5-3.6) ng/ml CK/CKMB % Calc Troponin I 0.038 (0-0.045) ng/ml NT-Pro-B Natriuret Pep (0-1800) pg/ml Total Protein (6.4-8.2) gm/dl Albumin (3.4-5.0) gm/dl Globulin (2.5-4.0) gm/dl Albumin/Globulin Ratio (0.9-2) Procalcitonin Specimen Hemolysis Urine Color Urine Appearance (Clear) Urine pH (4.5-7.5) Ur Specific [place] (1.000-1.030) Urine Protein (Negative) Urine Glucose (UA) (Negative) Urine Ketones (Negative) Urine Blood (Negative) Urine Nitrite (Negative) Urine Bilirubin (Negative) Urine Urobilinogen (Negative) Ur Leukocyte Esterase (Negative) Nasal Screen MRSA (PCR) (Negative) Vancomycin Trough (See Comment) mcg/ml Influenza Type A Ag (Neg) Influenza Type A (PCR) (Neg) Influenza Type B Ag (Neg) Influenza Type B (PCR) (Neg) 01/12/19 01/12/19 01/12/19 Range/Units 05:22 07:19 11:26 WBC (4.8-10.8) K/uL RBC (4.2-5.4) M/uL Hgb (12.0-16.0) g/dL Hct (37-47) % MCV (80-100) fL MCH (25-34) pg MCHC (32-36) g/dL RDW Std Deviation (36.4-46.3) fL RDW Coeff of Kenneth (11.5-14.5) % Plt Count (130-400) K/uL MPV (7.4-10.4) fL Immature Gran % (Auto) % Neut % (Auto) % Lymph % (Auto) % Evans % (Auto) % Eos % (Auto) % Baso % (Auto) % Immature Gran # (Auto) (0.00-0.02) K/uL Neut # (Auto) (1.4-6.5) K/uL Lymph # (Auto) (1.2-3.4) K/uL Evans # (Auto) (0.11-0.59) K/uL Eos # (Auto) (0-0.5) K/uL Baso # (Auto) (0-0.2) K/uL PT INR APTT PTT Ratio Sodium 136 (136-145) mmol/L Potassium 4.1 D (3.5-5.1) mmol/L Chloride 102 (98-107) mmol/L Carbon Dioxide 26 (21-32) mmol/L Anion Gap 8.0 (3-11) BUN 23 H (7-18) mg/dl Creatinine 1.03 (0.6-1.2) mg/dl Est Cr Clr Drug Dosing 59.2 ml/min Est GFR ( Amer) 60.7 Est GFR (Non-Af Amer) 52.4 BUN/Creatinine Ratio 22.2 H (10-20) Glucose 259 H (70-99) mg/dl POC Glucose 264 H 273 H (70-99) Lactate (0.4-2.0) mmol/L Calcium 8.4 L (8.5-10.1) mg/dl Total Bilirubin (0.2-1) mg/dl AST (15-37) U/L ALT (12-78) U/L Alkaline Phosphatase (45-117) U/L Total Creatine Kinase (26-192) U/L CK-MB (CK-2) (0.5-3.6) ng/ml CK/CKMB % Calc Troponin I (0-0.045) ng/ml NT-Pro-B Natriuret Pep (0-1800) pg/ml Total Protein (6.4-8.2) gm/dl Albumin (3.4-5.0) gm/dl Globulin (2.5-4.0) gm/dl Albumin/Globulin Ratio (0.9-2) Procalcitonin Specimen Hemolysis Urine Color Urine Appearance (Clear) Urine pH (4.5-7.5) Ur Specific [place] (1.000-1.030) Urine Protein (Negative) Urine Glucose (UA) (Negative) Urine Ketones (Negative) Urine Blood (Negative) Urine Nitrite (Negative) Urine Bilirubin (Negative) Urine Urobilinogen (Negative) Ur Leukocyte Esterase (Negative) Nasal Screen MRSA (PCR) (Negative) Vancomycin Trough (See Comment) mcg/ml Influenza Type A Ag (Neg) Influenza Type A (PCR) (Neg) Influenza Type B Ag (Neg) Influenza Type B (PCR) (Neg) 01/12/19 01/12/19 01/13/19 Range/Units 16:17 20:21 05:35 WBC 14.60 H (4.8-10.8) K/uL RBC 3.64 L (4.2-5.4) M/uL Hgb 12.3 (12.0-16.0) g/dL Hct 36.0 L (37-47) % MCV 98.9 (80-100) fL MCH 33.8 (25-34) pg MCHC 34.2 (32-36) g/dL RDW Std Deviation 55.3 H (36.4-46.3) fL RDW Coeff of Kenneth 15.2 H (11.5-14.5) % Plt Count 161 (130-400) K/uL MPV 11.8 H (7.4-10.4) fL Immature Gran % (Auto) % Neut % (Auto) % Lymph % (Auto) % [place] % (Auto) % Eos % (Auto) % Baso % (Auto) % Immature Gran # (Auto) (0.00-0.02) K/uL Neut # (Auto) (1.4-6.5) K/uL Lymph # (Auto) (1.2-3.4) K/uL [place] # (Auto) (0.11-0.59) K/uL Eos # (Auto) (0-0.5) K/uL Baso # (Auto) (0-0.2) K/uL PT INR APTT PTT Ratio Sodium (136-145) mmol/L Potassium (3.5-5.1) mmol/L Chloride (98-107) mmol/L Carbon Dioxide (21-32) mmol/L Anion Gap (3-11) BUN (7-18) mg/dl Creatinine (0.6-1.2) mg/dl Est Cr Clr Drug Dosing ml/min Est GFR ( Amer) Est GFR (Non-Af Amer) BUN/Creatinine Ratio (10-20) Glucose (70-99) mg/dl POC Glucose 171 H 300 H (70-99) Lactate (0.4-2.0) mmol/L Calcium (8.5-10.1) mg/dl Total Bilirubin (0.2-1) mg/dl AST (15-37) U/L ALT (12-78) U/L Alkaline Phosphatase (45-117) U/L Total Creatine Kinase (26-192) U/L CK-MB (CK-2) (0.5-3.6) ng/ml CK/CKMB % Calc Troponin I (0-0.045) ng/ml NT-Pro-B Natriuret Pep (0-1800) pg/ml Total Protein (6.4-8.2) gm/dl Albumin (3.4-5.0) gm/dl Globulin (2.5-4.0) gm/dl Albumin/Globulin Ratio (0.9-2) Procalcitonin Specimen Hemolysis Urine Color Urine Appearance (Clear) Urine pH (4.5-7.5) Ur Specific [place] (1.000-1.030) Urine Protein (Negative) Urine Glucose (UA) (Negative) Urine Ketones (Negative) Urine Blood (Negative) Urine Nitrite (Negative) Urine Bilirubin (Negative) Urine Urobilinogen (Negative) Ur Leukocyte Esterase (Negative) Nasal Screen MRSA (PCR) (Negative) Vancomycin Trough (See Comment) mcg/ml Influenza Type A Ag (Neg) Influenza Type A (PCR) (Neg) Influenza Type B Ag (Neg) Influenza Type B (PCR) (Neg) 01/13/19 01/13/19 01/13/19 Range/Units 05:35 05:35 07:26 WBC (4.8-10.8) K/uL RBC (4.2-5.4) M/uL Hgb (12.0-16.0) g/dL Hct (37-47) % MCV (80-100) fL MCH (25-34) pg MCHC (32-36) g/dL RDW Std Deviation (36.4-46.3) fL RDW Coeff of Kenneth (11.5-14.5) % Plt Count (130-400) K/uL MPV (7.4-10.4) fL Immature Gran % (Auto) % Neut % (Auto) % Lymph % (Auto) % Evans % (Auto) % Eos % (Auto) % Baso % (Auto) % Immature Gran # (Auto) (0.00-0.02) K/uL Neut # (Auto) (1.4-6.5) K/uL Lymph # (Auto) (1.2-3.4) K/uL Evans # (Auto) (0.11-0.59) K/uL Eos # (Auto) (0-0.5) K/uL Baso # (Auto) (0-0.2) K/uL PT 20.4 H INR 2.1 H APTT PTT Ratio Sodium 135 L (136-145) mmol/L Potassium 3.4 L D (3.5-5.1) mmol/L Chloride 102 (98-107) mmol/L Carbon Dioxide 28 (21-32) mmol/L Anion Gap 5.0 (3-11) BUN 22 H (7-18) mg/dl Creatinine 1.06 (0.6-1.2) mg/dl Est Cr Clr Drug Dosing 57.7 ml/min Est GFR ( Amer) 58.7 Est GFR (Non-Af Amer) 50.6 BUN/Creatinine Ratio 20.7 H (10-20) Glucose 184 H (70-99) mg/dl POC Glucose 178 H (70-99) Lactate (0.4-2.0) mmol/L Calcium 8.2 L (8.5-10.1) mg/dl Total Bilirubin (0.2-1) mg/dl AST (15-37) U/L ALT (12-78) U/L Alkaline Phosphatase (45-117) U/L Total Creatine Kinase (26-192) U/L CK-MB (CK-2) (0.5-3.6) ng/ml CK/CKMB % Calc Troponin I (0-0.045) ng/ml NT-Pro-B Natriuret Pep (0-1800) pg/ml Total Protein (6.4-8.2) gm/dl Albumin (3.4-5.0) gm/dl Globulin (2.5-4.0) gm/dl Albumin/Globulin Ratio (0.9-2) Procalcitonin Specimen Hemolysis Urine Color Urine Appearance (Clear) Urine pH (4.5-7.5) Ur Specific [place] (1.000-1.030) Urine Protein (Negative) Urine Glucose (UA) (Negative) Urine Ketones (Negative) Urine Blood (Negative) Urine Nitrite (Negative) Urine Bilirubin (Negative) Urine Urobilinogen (Negative) Ur Leukocyte Esterase (Negative) Nasal Screen MRSA (PCR) (Negative) Vancomycin Trough (See Comment) mcg/ml Influenza Type A Ag (Neg) Influenza Type A (PCR) (Neg) Influenza Type B Ag (Neg) Influenza Type B (PCR) (Neg) 01/13/19 01/13/19 01/13/19 Range/Units 09:33 11:35 16:21 WBC (4.8-10.8) K/uL RBC (4.2-5.4) M/uL Hgb (12.0-16.0) g/dL Hct (37-47) % MCV (80-100) fL MCH (25-34) pg MCHC (32-36) g/dL RDW Std Deviation (36.4-46.3) fL RDW Coeff of Kenneth (11.5-14.5) % Plt Count (130-400) K/uL MPV (7.4-10.4) fL Immature Gran % (Auto) % Neut % (Auto) % Lymph % (Auto) % Evans % (Auto) % Eos % (Auto) % Baso % (Auto) % Immature Gran # (Auto) (0.00-0.02) K/uL Neut # (Auto) (1.4-6.5) K/uL Lymph # (Auto) (1.2-3.4) K/uL Evans # (Auto) (0.11-0.59) K/uL Eos # (Auto) (0-0.5) K/uL Baso # (Auto) (0-0.2) K/uL PT INR APTT PTT Ratio Sodium (136-145) mmol/L Potassium (3.5-5.1) mmol/L Chloride (98-107) mmol/L Carbon Dioxide (21-32) mmol/L Anion Gap (3-11) BUN (7-18) mg/dl Creatinine (0.6-1.2) mg/dl Est Cr Clr Drug Dosing ml/min Est GFR ( Amer) Est GFR (Non-Af Amer) BUN/Creatinine Ratio (10-20) Glucose (70-99) mg/dl POC Glucose 89 218 H (70-99) Lactate (0.4-2.0) mmol/L Calcium (8.5-10.1) mg/dl Total Bilirubin (0.2-1) mg/dl AST (15-37) U/L ALT (12-78) U/L Alkaline Phosphatase (45-117) U/L Total Creatine Kinase (26-192) U/L CK-MB (CK-2) (0.5-3.6) ng/ml CK/CKMB % Calc Troponin I (0-0.045) ng/ml NT-Pro-B Natriuret Pep (0-1800) pg/ml Total Protein (6.4-8.2) gm/dl Albumin (3.4-5.0) gm/dl Globulin (2.5-4.0) gm/dl Albumin/Globulin Ratio (0.9-2) Procalcitonin Specimen Hemolysis Urine Color Urine Appearance (Clear) Urine pH (4.5-7.5) Ur Specific [place] (1.000-1.030) Urine Protein (Negative) Urine Glucose (UA) (Negative) Urine Ketones (Negative) Urine Blood (Negative) Urine Nitrite (Negative) Urine Bilirubin (Negative) Urine Urobilinogen (Negative) Ur Leukocyte Esterase (Negative) Nasal Screen MRSA (PCR) (Negative) Vancomycin Trough 19.5 (See Comment) mcg/ml Influenza Type A Ag (Neg) Influenza Type A (PCR) (Neg) Influenza Type B Ag (Neg) Influenza Type B (PCR) (Neg) 01/13/19 01/13/19 01/14/19 Range/Units 20:41 20:42 00:43 WBC (4.8-10.8) K/uL RBC (4.2-5.4) M/uL Hgb (12.0-16.0) g/dL Hct (37-47) % MCV (80-100) fL MCH (25-34) pg MCHC (32-36) g/dL RDW Std Deviation (36.4-46.3) fL RDW Coeff of Kenneth (11.5-14.5) % Plt Count (130-400) K/uL MPV (7.4-10.4) fL Immature Gran % (Auto) % Neut % (Auto) % Lymph % (Auto) % Evans % (Auto) % Eos % (Auto) % Baso % (Auto) % Immature Gran # (Auto) (0.00-0.02) K/uL Neut # (Auto) (1.4-6.5) K/uL Lymph # (Auto) (1.2-3.4) K/uL Evans # (Auto) (0.11-0.59) K/uL Eos # (Auto) (0-0.5) K/uL Baso # (Auto) (0-0.2) K/uL PT INR APTT PTT Ratio Sodium (136-145) mmol/L Potassium (3.5-5.1) mmol/L Chloride (98-107) mmol/L Carbon Dioxide (21-32) mmol/L Anion Gap (3-11) BUN (7-18) mg/dl Creatinine (0.6-1.2) mg/dl Est Cr Clr Drug Dosing ml/min Est GFR ( Amer) Est GFR (Non-Af Amer) BUN/Creatinine Ratio (10-20) Glucose (70-99) mg/dl POC Glucose 393 H* 391 H* 189 H (70-99) Lactate (0.4-2.0) mmol/L Calcium (8.5-10.1) mg/dl Total Bilirubin (0.2-1) mg/dl AST (15-37) U/L ALT (12-78) U/L Alkaline Phosphatase (45-117) U/L Total Creatine Kinase (26-192) U/L CK-MB (CK-2) (0.5-3.6) ng/ml CK/CKMB % Calc Troponin I (0-0.045) ng/ml NT-Pro-B Natriuret Pep (0-1800) pg/ml Total Protein (6.4-8.2) gm/dl Albumin (3.4-5.0) gm/dl Globulin (2.5-4.0) gm/dl Albumin/Globulin Ratio (0.9-2) Procalcitonin Specimen Hemolysis Urine Color Urine Appearance (Clear) Urine pH (4.5-7.5) Ur Specific [place] (1.000-1.030) Urine Protein (Negative) Urine Glucose (UA) (Negative) Urine Ketones (Negative) Urine Blood (Negative) Urine Nitrite (Negative) Urine Bilirubin (Negative) Urine Urobilinogen (Negative) Ur Leukocyte Esterase (Negative) Nasal Screen MRSA (PCR) (Negative) Vancomycin Trough (See Comment) mcg/ml Influenza Type A Ag (Neg) Influenza Type A (PCR) (Neg) Influenza Type B Ag (Neg) Influenza Type B (PCR) (Neg) 01/14/19 01/14/19 01/14/19 Range/Units 07:05 07:33 11:37 WBC (4.8-10.8) K/uL RBC (4.2-5.4) M/uL Hgb (12.0-16.0) g/dL Hct (37-47) % MCV (80-100) fL MCH (25-34) pg MCHC (32-36) g/dL RDW Std Deviation (36.4-46.3) fL RDW Coeff of Kenneth (11.5-14.5) % Plt Count (130-400) K/uL MPV (7.4-10.4) fL Immature Gran % (Auto) % Neut % (Auto) % Lymph % (Auto) % Evans % (Auto) % Eos % (Auto) % Baso % (Auto) % Immature Gran # (Auto) (0.00-0.02) K/uL Neut # (Auto) (1.4-6.5) K/uL Lymph # (Auto) (1.2-3.4) K/uL Evans # (Auto) (0.11-0.59) K/uL Eos # (Auto) (0-0.5) K/uL Baso # (Auto) (0-0.2) K/uL PT INR APTT PTT Ratio Sodium (136-145) mmol/L Potassium (3.5-5.1) mmol/L Chloride (98-107) mmol/L Carbon Dioxide (21-32) mmol/L Anion Gap (3-11) BUN (7-18) mg/dl Creatinine 1.15 (0.6-1.2) mg/dl Est Cr Clr Drug Dosing 53.7 ml/min Est GFR ( Amer) 53.2 Est GFR (Non-Af Amer) 45.9 BUN/Creatinine Ratio (10-20) Glucose (70-99) mg/dl POC Glucose 121 H 133 H (70-99) Lactate (0.4-2.0) mmol/L Calcium (8.5-10.1) mg/dl Total Bilirubin (0.2-1) mg/dl AST (15-37) U/L ALT (12-78) U/L Alkaline Phosphatase (45-117) U/L Total Creatine Kinase (26-192) U/L CK-MB (CK-2) (0.5-3.6) ng/ml CK/CKMB % Calc Troponin I (0-0.045) ng/ml NT-Pro-B Natriuret Pep (0-1800) pg/ml Total Protein (6.4-8.2) gm/dl Albumin (3.4-5.0) gm/dl Globulin (2.5-4.0) gm/dl Albumin/Globulin Ratio (0.9-2) Procalcitonin Specimen Hemolysis Urine Color Urine Appearance (Clear) Urine pH (4.5-7.5) Ur Specific [place] (1.000-1.030) Urine Protein (Negative) Urine Glucose (UA) (Negative) Urine Ketones (Negative) Urine Blood (Negative) Urine Nitrite (Negative) Urine Bilirubin (Negative) Urine Urobilinogen (Negative) Ur Leukocyte Esterase (Negative) Nasal Screen MRSA (PCR) (Negative) Vancomycin Trough (See Comment) mcg/ml Influenza Type A Ag (Neg) Influenza Type A (PCR) (Neg) Influenza Type B Ag (Neg) Influenza Type B (PCR) (Neg) 01/14/19 01/14/19 01/14/19 Range/Units 15:20 16:31 17:28 WBC (4.8-10.8) K/uL RBC (4.2-5.4) M/uL Hgb (12.0-16.0) g/dL Hct (37-47) % MCV (80-100) fL MCH (25-34) pg MCHC (32-36) g/dL RDW Std Deviation (36.4-46.3) fL RDW Coeff of Kenneth (11.5-14.5) % Plt Count (130-400) K/uL MPV (7.4-10.4) fL Immature Gran % (Auto) % Neut % (Auto) % Lymph % (Auto) % Evans % (Auto) % Eos % (Auto) % Baso % (Auto) % Immature Gran # (Auto) (0.00-0.02) K/uL Neut # (Auto) (1.4-6.5) K/uL Lymph # (Auto) (1.2-3.4) K/uL Evans # (Auto) (0.11-0.59) K/uL Eos # (Auto) (0-0.5) K/uL Baso # (Auto) (0-0.2) K/uL PT 18.2 H INR 1.9 H APTT PTT Ratio Sodium (136-145) mmol/L Potassium (3.5-5.1) mmol/L Chloride (98-107) mmol/L Carbon Dioxide (21-32) mmol/L Anion Gap (3-11) BUN (7-18) mg/dl Creatinine (0.6-1.2) mg/dl Est Cr Clr Drug Dosing ml/min Est GFR ( Amer) Est GFR (Non-Af Amer) BUN/Creatinine Ratio (10-20) Glucose (70-99) mg/dl POC Glucose 154 H (70-99) Lactate (0.4-2.0) mmol/L Calcium (8.5-10.1) mg/dl Total Bilirubin (0.2-1) mg/dl AST (15-37) U/L ALT (12-78) U/L Alkaline Phosphatase (45-117) U/L Total Creatine Kinase (26-192) U/L CK-MB (CK-2) (0.5-3.6) ng/ml CK/CKMB % Calc Troponin I (0-0.045) ng/ml NT-Pro-B Natriuret Pep (0-1800) pg/ml Total Protein (6.4-8.2) gm/dl Albumin (3.4-5.0) gm/dl Globulin (2.5-4.0) gm/dl Albumin/Globulin Ratio (0.9-2) Procalcitonin Specimen Hemolysis Urine Color Urine Appearance (Clear) Urine pH (4.5-7.5) Ur Specific [place] (1.000-1.030) Urine Protein (Negative) Urine Glucose (UA) (Negative) Urine Ketones (Negative) Urine Blood (Negative) Urine Nitrite (Negative) Urine Bilirubin (Negative) Urine Urobilinogen (Negative) Ur Leukocyte Esterase (Negative) Nasal Screen MRSA (PCR) (Negative) Vancomycin Trough 21.4 (See Comment) mcg/ml Influenza Type A Ag (Neg) Influenza Type A (PCR) (Neg) Influenza Type B Ag (Neg) Influenza Type B (PCR) (Neg) 01/14/19 Range/Units 20:44 WBC (4.8-10.8) K/uL RBC (4.2-5.4) M/uL Hgb (12.0-16.0) g/dL Hct (37-47) % MCV (80-100) fL MCH (25-34) pg MCHC (32-36) g/dL RDW Std Deviation (36.4-46.3) fL RDW Coeff of Kenneth (11.5-14.5) % Plt Count (130-400) K/uL MPV (7.4-10.4) fL Immature Gran % (Auto) % Neut % (Auto) % Lymph % (Auto) % Evans % (Auto) % Eos % (Auto) % Baso % (Auto) % Immature Gran # (Auto) (0.00-0.02) K/uL Neut # (Auto) (1.4-6.5) K/uL Lymph # (Auto) (1.2-3.4) K/uL Evans # (Auto) (0.11-0.59) K/uL Eos # (Auto) (0-0.5) K/uL Baso # (Auto) (0-0.2) K/uL PT INR APTT PTT Ratio Sodium (136-145) mmol/L Potassium (3.5-5.1) mmol/L Chloride (98-107) mmol/L Carbon Dioxide (21-32) mmol/L Anion Gap (3-11) BUN (7-18) mg/dl Creatinine (0.6-1.2) mg/dl Est Cr Clr Drug Dosing ml/min Est GFR ( Amer) Est GFR (Non-Af Amer) BUN/Creatinine Ratio (10-20) Glucose (70-99) mg/dl POC Glucose 167 H (70-99) Lactate (0.4-2.0) mmol/L Calcium (8.5-10.1) mg/dl Total Bilirubin (0.2-1) mg/dl AST (15-37) U/L ALT (12-78) U/L Alkaline Phosphatase (45-117) U/L Total Creatine Kinase (26-192) U/L CK-MB (CK-2) (0.5-3.6) ng/ml CK/CKMB % Calc Troponin I (0-0.045) ng/ml NT-Pro-B Natriuret Pep (0-1800) pg/ml Total Protein (6.4-8.2) gm/dl Albumin (3.4-5.0) gm/dl Globulin (2.5-4.0) gm/dl Albumin/Globulin Ratio (0.9-2) Procalcitonin Specimen Hemolysis Urine Color Urine Appearance (Clear) Urine pH (4.5-7.5) Ur Specific [place] (1.000-1.030) Urine Protein (Negative) Urine Glucose (UA) (Negative) Urine Ketones (Negative) Urine Blood (Negative) Urine Nitrite (Negative) Urine Bilirubin (Negative) Urine Urobilinogen (Negative) Ur Leukocyte Esterase (Negative) Nasal Screen MRSA (PCR) (Negative) Vancomycin Trough (See Comment) mcg/ml Influenza Type A Ag (Neg) Influenza Type A (PCR) (Neg) Influenza Type B Ag (Neg) Influenza Type B (PCR) (Neg) Imaging Data Radiologist's Impression: Radiology results as stated below per my review and the radiologist's interpretation: SINGLE VIEW CHEST CLINICAL HISTORY: Sepsis. FINDINGS: An AP, portable, upright chest radiograph is compared to study dated 12/27/2018 and correlated with chest CT dated 04/18/2018. The examination is degraded by portable technique and patient rotation. The heart is enlarged and there is atherosclerotic calcification of the thoracic aorta. The pulmonary vasculature is noncongested. Chronic interstitial thickening is similar to previous. There is bibasilar scarring/atelectasis. No airspace consolidation or large pleural effusion is identified. No pneumothorax is seen. The skeletal structures are osteopenic. The bony thorax is grossly intact. Advanced arthritic change is seen in the shoulders. IMPRESSION: Cardiomegaly with no acute cardiopulmonary abnormality. Electronically signed by: Coleman Smith M.D. 01/11/2019 8:[address] ANGIOGRAM OF THE CHEST COMBO CLINICAL HISTORY: Atypical chest pain. COMPARISON STUDY: Chest CT scans dated 04/08/2018 and 06/10/2015. TECHNIQUE: Before and following the IV administration of 118 cc of Optiray 320, CT angiogram of the chest was performed from the thoracic inlet to the upper abdomen utilizing the dissection protocol. Images are reviewed in the axial, sagittal, and coronal planes. 3-D MIPS images are created and assessed. IV contrast was administered without complication. A dose lowering technique was utilized adhering to the principles of ALARA. The examination is degraded by streak artifact from the arms which cannot elevated above the chest. CT DOSE: 2282.71 mGy.cm FINDINGS: Thyroid: Atrophic. Thoracic aorta: No intramural hematoma is seen on the unenhanced series. There is mild atherosclerotic calcification of the thoracic aorta, which is normal in caliber and demonstrates standard 3-vessel arch anatomy. No dissection is seen. The arch vessels are widely patent. Pulmonary vasculature: The pulmonary trunk is normal in caliber. There are no f illing defects identified within the main, lobar, or segmental pulmonary arteries to suggest pulmonary embolus. Heart: The heart is top normal in size and without pericardial effusion. The coronary arteries are densely calcified. Lungs and pleural spaces: There is a trace left pneumothorax. Foci of bibasilar scarring/atelectasis are observed. Trace hemothorax is noted at the left lung base. The trachea and central airways are clear. Mild groundglass consolidation is seen throughout the right upper lobe and the superior segment of the right lower lobe. There is a 3 mm pulmonary nodule in the left lower lobe seen image #[id number]. Mediastinum: There is no mediastinal lymphadenopathy. Mónica: Clear. Axillae: There is no axillary lymphadenopathy. Upper abdomen: There is a small hiatal hernia. Partially visualized upper abdominal viscera is within normal limits. Skeletal structures: The skeletal structures are osteopenic. Degenerative change and mild hyperkyphosis are noted in the thoracic spine. There is a mild chronic superior endplate compression deformity of T4. Advanced arthritic change is seen in the shoulders, with surrounding bursal fluid and calcified joint bodies. No lytic or blastic bony lesions are seen. No acute/distracted rib fracture is identified. There are chronic/healed right posterior rib fractures. IMPRESSION: 1. There is no aneurysm or dissection identified involving the thoracic aorta. 2. There is trace left hemopneumothorax. 3. No acute/distracted left-sided rib fracture is identified. 4. Mild groundglass consolidation is identified throughout the right upper lung. This is nonspecific and could represent a mild infectious/inflammatory pneumonitis, an aspiration event, or less likely a pulmonary contusion if there has been recent trauma. Clinical correlation will be required. 5. There is no evidence of pulmonary embolus in the main, lobar, or segmental pulmonary arteries. 6. Additional findings as above. Electronically signed by: Coleman Smith M.D. 01/11/2019 9:54 AM ECG Data Attestation: I personally reviewed and interpreted this ECG as follows: Indication: chest pain Rate (beats per minute): 95 Rhythm: atrial fibrillation Findings: + PVC; no ST depression and no ST elevation MDM Narrative This is a 78-year-old female who presents emergency department with severe onset of chest pain that started this morning. The patient has had a cough since her last hospital admission and I suspect based on the fact that the patient is on Coumadin with no recent trauma that the patient may have caused her hemopneumothorax by coughing. She was given Dilaudid here for the pain. The patient's CAT scan is also concerning for what appears to be a pneumonitis versus a lung contusion on the right. For this reason blood cultures were obtained and the patient was started on Zosyn as well as Levaquin here in the emergency department. She was found to have an elevated lactate as well as an elevation in her white blood cell count. She was originally hypotensive upon arrival here to the emergency department therefore she was started on fluids. I did originally discussed the case with [facility] service who felt that the patient should be transferred however Dr. Lau did call back and felt that we could keep the patient here. For this reason [facility]. Patient and family were in agreement with the treatment plan. Impression & Plan Hypoxia, Chest pain, Hemothorax Discharge Plan Visit Data *Final* Discharge Date/Time: 01/11/19 12:59 Chief Complaint: Chest Pain Stated Complaint: chest pain ED Provider: Conrad Reno Discharge Problem: Hypoxia, Chest pain, Hemothorax Patient Disposition: Admitted As Inpatient Discharge Instructions Interventions: ED Discharge Assessment Last Done: 01/11/19 12:59 The scribe's documentation has been prepared under my direction and personally reviewed by me in its entirety. I confirm that the note above accurately reflects all work, treatment, procedures, and medical decision making performed by me.
[2019-01-11] MEDS ORDERED: LORazepam 0.5 MG TAB PO PRN (13:20)
[2019-01-11] MEDS ORDERED: SOD PHOSPHATE/SOD BIPHOSPHATE ENEMA 132 ML BTL PR PRN (13:20)
[2019-01-11] MEDS ORDERED: ACETAMINOPHEN 325 MG TAB PO PRN (13:20)
[2019-01-11] MEDS ORDERED: NITROGLYCERIN SL 0.4 MG/TAB TAB SL PRN (13:20)
[2019-01-11] MEDS ORDERED: MECLIZINE HCL 25 MG TAB PO PRN (13:20)
[2019-01-11] MEDS ORDERED: BISACODYL 10 MG SUPP PR PRN (13:20)
[2019-01-11] MEDS ORDERED: MAGNESIUM HYDROXIDE SUSP 30 ML UDC PO PRN (13:20)
[2019-01-11] MEDS ORDERED: guaiFENesin SUGAR FREE 100 MG/5 ML UDC PO PRN (13:20)
[2019-01-11] MEDS ORDERED: ALBUT/IPRATROP 3MG/0.5MG NEB 3 ML VIAL INH PRN (13:20)
[2019-01-11] MEDS: LEVALBUTEROL HCL 1.25 MG/3 ML NEB NEB SCH ×2 (13:59→18:55)
[2019-01-11] MEDS: fentaNYL 50 MCG/HR TDSY TD SCH (14:44)
[2019-01-11] MEDS: guaiFENesin 600 MG TABCR PO SCH ×2 (14:44→20:58)
[2019-01-11] MEDS: SIMETHICONE 80 MG CHEW PO SCH ×2 (14:44→17:14)
[2019-01-11] MEDS: PREGABALIN 50 MG CAP PO SCH ×2 (14:44→17:09)
[2019-01-11] MEDS ORDERED: GLUCOSE 10 TABS/TUBE PO PRN (15:00)
[2019-01-11] MEDS ORDERED: GLUCAGON FOR INJ 1 MG VIAL SQ PRN (15:00)
[2019-01-11] MEDS ORDERED: DEXTROSE 50% 50 ML SYRINGE IV PRN (15:00)
[2019-01-11] MEDS ORDERED: GLUCOSE 40% GEL 15 GM TUBE PO PRN (15:00)
[2019-01-11] MEDS ORDERED: CARBOHYDRATES FOR HYPOGLYCEMIA PO PRN (15:00)
--- NOTE | 2019-01-11 15:17 | History & Physical Report ---
Date of Service January 11, 2019 Assessment & Plan (1) Chest pain: This is a 78 yo F [facility] resident with PMH atrial fibrillation on Coumadin, obesity hypoventilation syndrome, asthma (chronic 2L O2 NC), chronic diastolic heart failure, HTN, anxiety, CKD III and other medical problems listed below who presents with chest pain beginning this morning at 0600 in the setting of PNA and trace left hemopneumothorax. -Likely multi-factorial in setting of pneumonia, trace left hemothorax -CP has resolved since arrival -Considered ACSno ischemic EKG changes, troponin normal -Trend serial cardiac enzymes -Repeat EKG in am (2) Pneumonia: (3) Asthma exacerbation: (4) Chronic respiratory failure: Has been experiencing intermittent cough with productive sputum for last 2 months -Has been diagnosed with flu and bronchitis since Nov 2018 -Leukocytosis of 14.47k indicating infection vs recent steroids -Recently completed course of doxy, PO steroids -CTA chest with mild ground glass consolidation is identified throughout the right upper lung. This is nonspecific and could represent a mild infectious/inflammatory pneumonitis, an aspiration event, or less likely a pulmonary contusion if there has been recent trauma -Will cover with Zosyn and vanco for possible HAP -Follow blood cultures, MRSA nasal swab -Nebulizer treatments, home inhalers, consider steroids if condition worsens -Supplemental O2 (5) Hemothorax: Chest CTA with evidence of trace left hemopneumothorax (new since CT performed in summer 2017) -Denies falls or recent trauma. Has been coughing for >1 month -ED physician discussed with , who is comfortable with patient staying and will see tomorrow (6) Hypertension: Continue Lopressor with hold parameters (7) DM type 2 (diabetes mellitus, type 2): A1c of 6.2 on Nov 2018 -Hold home agents -Basal/bolus sliding scale per protocol while in-patient -BSG AC HS (8) Diastolic CHF: Appears euvolemic. -BLE edema at baseline, per patient -Echo from Aug 2018 with preserved EF of 55% -Continue spironolactone -Holding Lasix and Metolazone currently due to low BP. Reassess volume status/BP in AM to resume (9) Hypothyroidism: Continue levothyroxine (10) Atrial fibrillation: Chronic A fib, currently in rate-controlled A Fib on EKG -Continue Diltiazem, Lopressor -INR is 3. Will hold coumadin today, per discussion with Thoracic service (11) CKD (chronic kidney disease), stage III: Kidney function at baseline -Continue to monitor with daily BMP (12) GERD (gastroesophageal reflux disease): Continue PPI, H2 gabriela, carafate (13) Chronic back pain: Continue fentanyl patch, Lyrica, tylenol prn (14) Anxiety: Continue Buspirone, duloxetine, trazodone -Monitor for any confusion (15) Hyperuricemia: Continue allopurinol. Hold colchicine DVT Ppx: Continue coumadin Code status: Full with NO MECH VENT, per previous admissions and discussion with patient PCP: Mainali Dispo: Admit to telemetry. Plan to return home once medically stable. Patient seen in collaboration with Dr. Varela. Please see addendum. History of Present Illness Chief Complaint: chest pain Primary Care Provider: Viry Lemus MD This is a 78 yo F [facility] resident with PMH atrial fibrillation on Coumadin, obesity hypoventilation syndrome, asthma (chronic 2L O2 NC), chronic diastolic heart failure, HTN, anxiety, CKD III and other medical problems listed below who presents with chest pain beginning this morning at 0600. Patient woke up with non-radiating central chest pain with associated shortness of breath. Denies any diaphoresis, nausea vomiting. Was admitted to our service for flu, cough and hypoxia in November 2018 and has had continued productive cough with sputum and pleuritic chest pain since then. Currently endorsing thick, yellow productive sputum and wheezing. Denies fever, chills, lightheadedness, headache, palpitations, hemoptysis or worsening lower extremity swelling. Is chronically on 2 L nasal cannula at [facility], per patient. During November admission, patient was treated with vancomycin, cefepime and prednisone was transitioned to doxycycline upon discharge. Has also recently completed course of p.o. prednisone per medication reconciliation. In ED, patient found to be tachycardic at 100 bpm. Leukocytosis of 14.4 7K. Chest CTA performed with evidence of trace left hemopneumothorax (new since CT performed in summer 2017) and mild ground glass consolidation is identified throughout the right upper lung. This is nonspecific and could represent a mild infectious/inflammatory pneumonitis, an aspiration event, or less likely a pulmonary contusion if there has been recent trauma. Covered with broad-spectrum antibiotics for possible pneumonia, resuscitated with 1 L normal saline and given potassium supplementation for K of 3.3. ED physician discussed with Dr. Lau, who will see patient tomorrow. Denies recent trauma or falls. Allergies Allergy/AdvReac Type Severity Reaction Status Date / Time meperidine [From Demerol] Allergy Unknown ON WINDY Verified 01/11/19 08:53 HILL LIST morphine AdvReac Intermediate vomiting Verified 01/11/19 08:53 oxycodone AdvReac Intermediate vomit blood Verified 01/11/19 08:53 propoxyphene AdvReac Intermediate abd vomit Verified 01/11/19 08:53 blood tramadol AdvReac Intermediate vomiting Verified 01/11/19 08:53 Bactrim AdvReac Mild GI SYMPTOMS Verified 03/06/18 21:06 codeine AdvReac Mild vomiting Verified 01/11/19 08:53 olmesartan AdvReac Mild GI SYMPTOMS Verified 01/11/19 08:53 Sulfa (Sulfonamide AdvReac Mild GI SYMPTOMS Verified 01/11/19 08:53 Antibiotics) sulfamethoxazole AdvReac Mild GI SYMPTOMS Verified 01/11/19 08:53 trimethoprim AdvReac Mild GI SYMPTOMS Verified 01/11/19 08:53 carisoprodol AdvReac Unknown GI SYMPTOMS Verified 01/11/19 08:53 Home Medications Home Medications Medication Instructions Recorded Confirmed Type Fleet Enema 118 ml FL DAILY PRN 11/01/18 01/11/19 History Glucosamine Chondroitin PLUS 1 tab PO PC 11/01/18 01/11/19 History Lyrica 50 mg PO TIDM 11/01/18 01/11/19 History Refresh Tears 1 drp OPB BID 11/01/18 01/11/19 History acetaminophen 650 mg FL Q6H PRN 11/01/18 01/11/19 History acetaminophen [Tylenol] 650 mg PO Q4 PRN 11/01/18 01/11/19 History allopurinol 200 mg PO QAM 11/01/18 01/11/19 History bisacodyl [Dulcolax (bisacodyl)] 10 mg FL DAILY PRN 11/01/18 01/11/19 History buspirone 15 mg PO BID 11/01/18 01/11/19 History colchicine 0.6 mg PO QAM 11/01/18 01/11/19 History diltiazem HCl [Cardizem CD] 240 mg PO QAM 11/01/18 01/11/19 History docusate sodium [Colace] 100 mg PO AMHS 11/01/18 01/11/19 History duloxetine 60 mg PO QAM 11/01/18 01/11/19 History ferrous sulfate 325 mg PO AMHS 11/01/18 01/11/19 History fluticasone propion-salmeterol 1 inh INHALATION BID 11/01/18 01/11/19 History [Advair Diskus] ipratropium-albuterol 3 ml INHALATION Q4H PRN 11/01/18 01/11/19 History levothyroxine 75 mcg PO DAILYBB 11/01/18 01/11/19 History lorazepam 0.5 mg PO TID PRN 11/01/18 01/11/19 History magnesium hydroxide [Milk of 30 ml PO DAILY PRN 11/01/18 01/11/19 History Magnesia] magnesium oxide 250 mg PO QAM 11/01/18 01/11/19 History meclizine 25 mg PO TID PRN 11/01/18 01/11/19 History melatonin 10 mg PO HS 11/01/18 01/11/19 History metoprolol tartrate 25 mg PO AMPM 11/01/18 01/11/19 History montelukast 10 mg PO PM 11/01/18 01/11/19 History ondansetron HCl [Zofran] 8 mg PO Q8 PRN 11/01/18 01/11/19 History pantoprazole 20 mg PO DAILYBB 11/01/18 01/11/19 History polyethylene glycol 3350 [Miralax] 17 g PO Q OTHER DAY 11/01/18 01/11/19 History sucralfate 1 g PO AMPM 11/01/18 01/11/19 History trazodone 50 mg PO HS 11/01/18 01/11/19 History fentanyl 1 patch TRANSDERMAL Q72H #0 ea 11/06/18 01/11/19 Rx Allevyn 12/27/18 12/27/18 History Lantus U-100 Insulin 20 unit SUBCUT HS 12/27/18 01/11/19 History Novolog U-100 Insulin aspart 10 unit SUBCUT AC 12/27/18 01/11/19 History Spiriva Respimat 2 puff INHALATION PM 12/27/18 01/11/19 History furosemide [Lasix] 40 mg PO QAM 12/27/18 01/11/19 History metolazone 2.5 mg PO 2XWK 12/27/18 01/11/19 History ranitidine HCl [Zantac] 150 mg PO BID 12/27/18 01/11/19 History simethicone [Gas Relief] 180 mg PO DAILY PRN 12/27/18 01/11/19 History spironolactone 12.5 mg PO QAM #0 tab 01/02/19 01/11/19 Rx Incruse Ellipta 1 inh INHALATION PM 01/11/19 01/11/19 History guaifenesin [Amy-Tussin] 200 mg PO Q4H PRN 01/11/19 01/11/19 History nystatin [Nyamyc] 1 applic TOPICAL BID 01/11/19 01/11/19 History sennosides [senna] 8.6 mg PO BID 01/11/19 01/11/19 History warfarin 0.5 mg PO UD 01/11/19 01/11/19 History warfarin 1 mg PO PM 01/11/19 01/11/19 History doxycycline hyclate 100 mg PO BID 7 Days #14 tab 01/15/19 Rx Past Med/Surg History Medical History Anxiety (Chronic) Hyperuricemia (Chronic) CKD (chronic kidney disease), stage III (Chronic) GERD (gastroesophageal reflux disease) (Chronic) DJD (degenerative joint disease), multiple sites (Chronic) Arthritis (Chronic) Asthma (Chronic) Diastolic CHF (Chronic) On 02/12/16 22:20 Ellie Bains wrote "per echo 09/30/15- EF 60-65%, mod LVH, mod MR, mod TR, dilated RV" DM type 2 (diabetes mellitus, type 2) (Chronic) Hypertension (Chronic) Hypothyroidism (Chronic) Chronic pain (Chronic) Stenosis of right carotid artery (Chronic) History of pulmonary embolism (Chronic) Chronic gastritis (Chronic) Chronic back pain (Chronic) Generalized anxiety disorder (Chronic) Obesity (BMI 30-39.9) (Chronic) DM2 (diabetes mellitus, type 2) (Chronic) HTN (hypertension) (Chronic) Surgical History History of hernia repair (Chronic) Status post cholecystectomy (Chronic) "Dr. Beavers [facility] 12/27/17" Family History Other Diabetes Hypertension Social History Preferred Language: Barbadian Communication Ability: Effective Mental Health Program Specialist Required: No Beliefs That Will Affect Care: None marital status: / Current Living Situation: Detention Other Information That Helps Us Care for You: No Feels Safe at Home: Yes Safety Concerns: Feels Safe At This Time Smoking Status: Never smoker Do You Dip or Chew Tobacco: No Second Hand Exposure: No Tobacco Cessation Education Requested by Patient: No Hx Alcohol Use: No Hx Substance Use: No Review of Systems Review of Systems: All systems reviewed & are unremarkable except as noted in HPI & below Physical Exam Vital Signs (Past 24 Hours): Last Vital Signs Temp 37.1 C 01/11/19 13:20 Pulse 100 H 01/11/19 14:03 Resp 18 01/11/19 14:03 BP 102/65 01/11/19 13:20 Pulse Ox 98 01/11/19 14:03 Physical Exam: General Appearance: WD/WN, in mild distress from persistent coughing, morbidly obese, appears chronically ill Head: normocephalic, atraumatic Eyes: normal inspection, PERRL, EOMI ENT: hearing grossly normal, pharynx normal (moist mucous membranes) Neck: supple, no JVD, no adenopathy Respiratory/Chest: Diffuse wheezes and rhonci bilaterally. No respiratory distress or accessory muscle use Cardiovascular: Irregular rate and rhythm, no murmur, normal peripheral pulses, 1+ bilateral lower extremity edema Abdomen/GI: normal bowel sounds, soft, non-tender to palpation Extremities/Musculoskelatal: normal inspection, no calf tenderness, normal capillary refill Neurologic/Psych: alert, normal mood/affect, oriented x 3 Skin: normal color, warm/dry Results & Data Laboratory Results Short CBC 01/11/19 Range/Units 08:00 WBC 14.47 H (4.8-10.8) K/uL Hgb 14.7 (12.0-16.0) g/dL Hct 42.8 (37-47) % Plt Count 221 (130-400) K/uL BMP 01/11/19 08:00 Sodium 136 Potassium 3.3 L Chloride 98 Carbon Dioxide 30 BUN 34 H Creatinine 1.16 Glucose 162 H Calcium 8.8 Cardiac Enzymes 01/11/19 01/11/19 Range/Units 08:00 09:07 Total Creatine Kinase 28 (26-192) U/L CK-MB (CK-2) < 1.0 (0.5-3.6) ng/ml Troponin I 0.041 0.043 (0-0.045) ng/ml Liver Function 01/11/19 Range/Units 08:00 Total Bilirubin 0.7 (0.2-1) mg/dl AST 17 (15-37) U/L ALT 20 (12-78) U/L Alkaline Phosphatase 84 (45-117) U/L Albumin 2.7 L (3.4-5.0) gm/dl ECG Rhythm: atrial fibrillation Supervising Physician Co-Signing Physician Notes Pt was seen and examined. Agreed with Anay SMALLS exam, assessment and plan. 78 yo F [facility] resident with PMH atrial fibrillation on Coumadin, obesity hypoventilation syndrome, asthma (chronic 2L O2 NC), chronic diastolic heart failure, HTN, anxiety, CKD III presents to the ER with chest pain. CT chest show ed no evidence of aneurysm or dissection identified involving the thoracic aorta. There is trace left hemopneumothorax and mild groundglass consolidation is identified throughout the right upper lung. Influenza PCR negative. Blood cx collected in the ER. Starting on Zosyn and Vanco IV. Coninue Neb treatment. will screen for nasal MRSA screen and if negative, will discontinue the Vanco. Consult thoracic surgery for the hemopneumothorax. Will monitor Closely. MD Nichole
[2019-01-11] MEDS: CHECK FENTANYL PATCH PLACEMENT SCH (15:26)
[2019-01-11] MEDS: PIPERACILLIN/TAZOBACTAM 4.5 GM in DEXTROSE 5% 100 ML IV SCH (17:10)
[2019-01-11] MEDS: INSULIN ASPART 100 UNITS/ML 3 ML PEN SC SCH ×2 (17:13→21:05)
[2019-01-11 19:07] LABS: Appearance Urine Clear (Clear); Bilirubin Urine Negative (Negative); Blood Urine Negative (Negative); Color Urine Yellow; Glucose Urine UA Negative (Negative); Ketones Urine Negative (Negative); Leukocyte Esterase Urine Negative (Negative); Nitrite Urine Negative (Negative); Protein Urine Negative (Negative); Specific Gravity Urine > 1.045 (1.000-1.030); Urobilinogen Urine Negative (Negative)
[2019-01-11] MEDS: FLUTICASONE/SALMETEROL (ADVAIR) 500/50 INH 14 PUFF INH SCH (20:55)
[2019-01-11] MEDS: predniSONE 20 MG TAB PO SCH (20:56)
[2019-01-11] MEDS: METOPROLOL TARTRATE 25 MG TAB PO SCH (20:56)
[2019-01-11] MEDS: FERROUS SULFATE 325 MG TAB PO SCH (20:56)
[2019-01-11] MEDS: BusPIRone 15 MG TAB PO SCH (20:57)
[2019-01-11] MEDS: TRAZODONE HCL 50 MG TAB PO SCH (20:57)
[2019-01-11] MEDS: SENNA 8.6 MG TAB PO SCH (20:57)
[2019-01-11] MEDS: DOCUSATE SODIUM 100 MG CAP PO SCH (20:57)
[2019-01-11] MEDS: TIOTROPIUM BROMIDE 5 PUFF/90 MCG INH INH SCH (20:58)
[2019-01-11] MEDS: MONTELUKAST SODIUM 10 MG TABLET PO SCH (20:59)
[2019-01-11] MEDS ORDERED: INSULIN GLARGINE SOLOSTAR 100 UNITS/ML 3 ML PEN SC SCH (21:00)
[2019-01-11] MEDS: MUPIROCIN 2% OINT 22 GM TUBE EXT SCH (21:02)
[2019-01-11] MEDS: INSULIN GLARGINE SOLOSTAR 100 UNITS/ML 3 ML PEN SC SCH (21:04)
[2019-01-11] MEDS: ARTIFICIAL TEARS OPB SCH (21:24)
[2019-01-11] MEDS: SUCRALFATE 1 GM TAB PO SCH (22:10)
--- NOTE | 2019-01-12 00:49 | Consultation Report ---
DATE OF CONSULTATION: 01/11/2019 REASON FOR CONSULTATION: Suspected hemopneumothorax. HISTORY OF PRESENT ILLNESS: This is a very pleasant 78-year-old female who resides at [facility]. The patient says that she developed some worsening pleuritic-type chest pain that began this morning that woke her up from her sleep. Because of this, she presented to the Emergency Department. She underwent an extensive evaluation in the Emergency Department, which revealed a white blood cell count of 14.7. Hemoglobin, hematocrit and platelet count were noted to be within the normal range. It should be noted she had an INR of 3.0. She also had a chemistry profile that showed sodium was normal. Potassium is 3.4. BUN was slightly elevated at 3.4 and creatinine was 1.1. She also had imaging studies performed including a chest x-ray that showed no acute cardiopulmonary process. A CT scan of the chest was performed that showed no evidence of thoracic aortic aneurysm or dissection. She had a trace left hemopneumothorax. She had no rib fractures noted. She did have ground-glass consolidations in the right upper lung field that were felt to represent pneumonitis or pneumonia. There is no evidence of PE. The patient was admitted to the hospital. I questioned her numerous symptoms and to the best of her knowledge, she said that she has not had any recent falls that she can recollect. She does ambulate with a walker. She denies head injuries, visual changes, tinnitus, sore throat or neck pain. She has pleuritic-type chest pain without diaphoresis as noted above. She said that she does get somewhat short of breath when she ambulates with her walker. She denies abdominal pain, nausea, vomiting, weight loss or decreased appetite. She denies any dysuria. She does not report a history of DVT or PE. She does not report a history of stroke or seizure. At the time of my exam, she is resting comfortably in bed, did not appear to be in any distress and felt that she has improved slightly since being admitted. PAST MEDICAL HISTORY: Includes the followin. Atrial fibrillation. 2. Obesity hypoventilation syndrome. 3. Asthma. 4. Diastolic CHF. 5. Hypertension. 6. Anxiety. 7. Chronic kidney disease. 8. Chronic back pain. 9. History of gastritis. 10. History of PE. 11. Carotid artery stenosis. 12. Hypothyroidism. PAST SURGICAL HISTORY: Includes: 1. Herniorrhaphy. 2. Cholecystectomy. FAMILY HISTORY: Positive for diabetes and hypertension. SOCIAL HISTORY: She lives in a halfway. She is a lifetime nonsmoker. ALLERGIES: THE PATIENT HAS LISTED ALLERGIES TO DEMEROL, MORPHINE, OXYCODONE, PROPOXYPHENE, TRAMADOL, BACTRIM, CODEINE, OLMESARTAN, SULFA, CARISOPRODOL. OUTPATIENT MEDICATION REGIMEN: Includes the followin. Tylenol as needed. 2. Allopurinol 20 mg daily. 3. Dulcolax as needed. 4. BuSpar 50 mg twice daily. 5. Colchicine 0.6 mg daily. 6. Diltiazem 240 mg daily. 7. Colace 100 mg twice daily. 8. Duloxetine 60 mg daily. 9. Fentanyl patch every 3 days. 10. Iron 325 mg twice daily. 11. Fleets enema as needed. 12. Advair Diskus twice daily. 13. Lasix 40 mg daily. 14. Glucosamine and chondroitin daily. 15. Mucinex 200 mg as needed every 4 hours. 16. DuoNeb as needed. 17. Lantus insulin 20 units at bedtime. 18. Levothyroxine 75 mcg daily. 19. Ativan 0.5 mg 3 times daily as needed. 20. Lyrica 50 mg daily. 21. Milk of magnesia as needed. 22. Magnesium oxide 250 mg daily. 23. Meclizine 25 mg 3 times daily as needed. 24. Melatonin 10 mg at bedtime. 25. Zaroxolyn 2.5 mg 2 times a week. 26. Metoprolol 25 mg twice daily. 27. Singulair 10 mg daily. 28. NovoLog insulin 10 units with meals. 29. Nystatin topically twice daily. 30. Zofran as needed. 31. Protonix 20 mg daily. 32. MiraLax every other day. 33. Ranitidine 150 mg twice daily. 34. Refresh Tears twice daily. 35. Senokot twice daily. 36. Simethicone as needed. 37. Spiriva inhaler daily. 38. Spironolactone 12.5 mg daily. 39. Carafate 1 g twice daily. 40. Trazodone 50 mg at bedtime. 41. Ellipta inhaler in the evening. 42. Coumadin, she takes alternating 1 mg and 0.5 mg doses. REVIEW OF SYSTEMS: As noted above. PHYSICAL EXAMINATION: VITAL SIGNS: Blood pressure 95/71, pulse 80 and regular, respirations are 20 and unlabored. She is afebrile. Temperature 36.8, pulse ox 97% on 2 L. It should be noted that she does use 2 L of oxygen chronically. GENERAL: The patient is alert. She is oriented x3. She is in no distress. HEENT: Head is atraumatic, normocephalic. EYES: Pupils equal, round react to light and accommodation. Extraocular motions are intact. EARS: Auditory acuity is grossly intact. NOSE: Nasal patency was intact. Sinuses are nontender. Mouth is moist without exudates. NECK: Supple. There is no JVD. CARDIOVASCULAR: Regular rate and rhythm. LUNGS: Decreased breath sounds. This may have been due to her body habitus. There are no rales, rhonchi, wheezing, use of accessory muscles. There is no tracheal shift. CARDIOVASCULAR: Regular rate and rhythm. ABDOMEN: Soft and nontender. EXTREMITIES: Revealed no cyanosis. The patient had faint posterior tibial pulses. NEUROLOGIC: Revealed cranial nerves II through XII are grossly intact. She can move all 4 extremities without noted focal deficits. DIAGNOSTIC DATA: As noted above. IMPRESSION: A 78-year-old female with chest pain. PLAN: I have reviewed the patient's CAT scan. It does appear that she has a pneumonia or pneumonitis. She has a trace hemopneumothorax as described in the CT scan report, but this is very subtle finding does not require any surgical intervention at this time. I would recommend following the patient with serial chest x-rays. Certainly, there is no need for thoracentesis or chest tube placement at this time.
[2019-01-12] MEDS: CHECK FENTANYL PATCH PLACEMENT SCH ×3 (01:28→17:12)
[2019-01-12] MEDS: PIPERACILLIN/TAZOBACTAM 4.5 GM in DEXTROSE 5% 100 ML IV SCH ×3 (01:29→17:12)
[2019-01-12] MEDS: VANCOMYCIN HCL 1,250 MG in SODIUM CHLORIDE 0.9% 250 ML IV SCH ×2 (01:29→17:12)
[2019-01-12] MEDS: LEVALBUTEROL HCL 1.25 MG/3 ML NEB NEB SCH ×4 (01:57→19:57)
[2019-01-12] MEDS: PANTOprazole 40 MG TAB PO SCH (05:57)
[2019-01-12] MEDS: LEVOTHYROXINE SODIUM 75 MCG TABLET PO SCH (05:57)
[2019-01-12 06:07] LABS: Hemoglobin 12.9 g/dL (12.0-16.0); Mean Corpuscular Hgb Conc 33.1 g/dL (32-36); Mean Corpuscular Volume 100.5 fL (80-100); Mean Platelet Volume 12.2 fL (7.4-10.4); Platelet Count 161 K/uL (130-400); RDW Coefficient of Variation 15.5 % (11.5-14.5); RDW Standard Deviation 56.2 fL (36.4-46.3); Red Blood Count 3.88 M/uL (4.2-5.4); White Blood Count 10.93 K/uL (4.8-10.8)
[2019-01-12 06:19] LABS: INR 2.7 (0.9-1.1); Prothrombin Time 25.5 Seconds (9.0-12.0)
[2019-01-12 06:26] LABS: BUN Creatinine Ratio 22.2 (10-20); Calcium 8.4 mg/dl (8.5-10.1); Creatinine Clr Calc Pharmacy 59.2 ml/min; Est GFR (African American) 60.7; Est GFR (Non-African American) 52.4; Potassium 4.1 mmol/L (3.5-5.1)
--- NOTE | 2019-01-12 07:11 | XRay Report ---
XR chest 1V portable CLINICAL HISTORY: pneumonia dyspnea COMPARISON STUDY: 01/11/2018 FINDINGS: Moderate stable cardiomegaly. Lungs remain clear. Diaphragms are smooth. IMPRESSION: Moderate stable cardiomegaly. No acute process. The above report was generated using voice recognition software. It may contain grammatical, syntax or spelling errors. Electronically signed by: Brain An M.D. 01/12/2019 7:10 AM
--- NOTE | 2019-01-12 07:56 | Surgery Progress Note ---
Date of Service January 12, 2019 Assessment & Plan (1) Pneumonia: -concern noted for a small hemopneumothorax at time of admission -images reviewed and no surgical issues noted -CXR today does not show significant pneumothorax or pleural effusion -continue treatment as directed by medical service -from surgical standpoint ok to resume coumadin Subjective Pt. denies SOB. She continues to have some pleuritic CP. Physical Exam Vital Signs (Past 24 Hours): Last Vital Signs Temp 36.7 C 01/12/19 04:37 Pulse 94 H 01/12/19 07:04 Resp 18 01/12/19 07:04 BP 117/79 01/12/19 04:37 Pulse Ox 96 01/12/19 07:04 Respiratory: no respiratory distress and no labored breathing -rhonchi noted with respirations
[2019-01-12] MEDS: FLUTICASONE/SALMETEROL (ADVAIR) 500/50 INH 14 PUFF INH SCH ×2 (08:07→20:54)
[2019-01-12] MEDS: INSULIN ASPART 100 UNITS/ML 3 ML PEN SC SCH ×4 (08:07→21:07)
[2019-01-12] MEDS: ARTIFICIAL TEARS OPB SCH ×2 (08:08→20:54)
[2019-01-12] MEDS: DULOXETINE HCL 60 MG CAP PO SCH (08:08)
[2019-01-12] MEDS: MAGNESIUM OXIDE 400 MG TAB PO SCH (08:08)
[2019-01-12] MEDS: MUPIROCIN 2% OINT 22 GM TUBE EXT SCH ×2 (08:08→20:55)
[2019-01-12] MEDS: predniSONE 20 MG TAB PO SCH (08:09)
[2019-01-12] MEDS: BusPIRone 15 MG TAB PO SCH ×2 (08:09→20:56)
[2019-01-12] MEDS: SIMETHICONE 80 MG CHEW PO SCH ×3 (08:09→17:13)
[2019-01-12] MEDS: DOCUSATE SODIUM 100 MG CAP PO SCH ×2 (08:10→20:56)
[2019-01-12] MEDS: SUCRALFATE 1 GM TAB PO SCH ×2 (08:10→21:01)
[2019-01-12] MEDS: SPIRONOLACTONE 25 MG TAB PO SCH (08:10)
[2019-01-12] MEDS: dilTIAZem HCL 240 MG CAPCR PO SCH (08:10)
[2019-01-12] MEDS: ALLOPURINOL 100 MG TAB PO SCH (08:10)
[2019-01-12] MEDS: FERROUS SULFATE 325 MG TAB PO SCH ×2 (08:12→20:57)
[2019-01-12] MEDS: METOPROLOL TARTRATE 25 MG TAB PO SCH ×2 (08:12→20:58)
[2019-01-12] MEDS: POLYETHYLENE (MIRALAX) 17 GM PACK PO SCH (08:13)
[2019-01-12] MEDS: SENNA 8.6 MG TAB PO SCH ×2 (08:13→20:59)
[2019-01-12] MEDS: INSULIN GLARGINE SOLOSTAR 100 UNITS/ML 3 ML PEN SC SCH ×2 (08:14→21:06)
[2019-01-12] MEDS: PREGABALIN 50 MG CAP PO SCH ×3 (08:19→17:12)
[2019-01-12] MEDS: guaiFENesin 600 MG TABCR PO SCH ×2 (08:54→20:59)
--- NOTE | 2019-01-12 13:35 | Pharmacy Report ---
Pharmacy Abx Initial Consult - Date of Service January 12, 2019 - Pharmacy Dosing Scope Date of Consult: 01/11/19 Consultation requested by: Anay Becerra Pharmacy is consulted to initiate Zosyn and Vancomycin IV dosing therapy, order appropriate labs and adjust drug dose/frequency. - Subjective The patient is a 78 year old F admitted on 01/11/19 12:31. - Objective Height: 5 ft 6 in Weight: 116.5 kg Vital Signs (Past 12hrs): Vital Signs Temp Pulse Pulse Resp BP BP Pulse Ox 01/12/19 11:26 36.7 C 107 H 20 113/74 98 01/12/19 07:55 36.9 C 112 H 122/81 98 01/12/19 07:04 94 H 18 96 01/12/19 04:37 36.7 C 98 H 19 117/79 107 H 01/12/19 01:57 94 H 18 97 Lab Results (24hrs): Laboratory Tests (24 Hours) 01/12/19 01/12/19 05:22 05:22 WBC 10.93 H Creatinine 1.03 Est Cr Clr Drug Dosing 59.2 Micro Results: 01/11/19 21:20 Gram Stain - Final Sputum, Expectorated 01/11/19 09:00 Blood Culture - Pending Blood 01/11/19 08:45 Blood Culture - Pending Blood - Risk Factors for Resistance * Resident in a [facility] * Hospitalization for 48 hours or more within the past 90 days * Antimicrobial use within the last 90 days: Doxy - Assessment & Plan Assessment 78 year old F presenting from [facility] with chest pain and also complains of a cough. She has been experiencing intermittent cough with productive sputum for the last 2 months, and she recently completed a course of Doxy and steroids. CT of Chest shows glass consolidation in right upper lung, but could be pneumonia or contusion. MRSA nasal swab was positive. Blood cultures x2 and sputum culture currently pending. Plan Vanco and Zosyn for treatment of possible HAP Vancomycin IV * Estimated PK Parameters: Vd 0.54 L/kg, Lavelle 0.048 hr-1, t1/2 14.4 hr * Loading dose: 2250 mg (19 mg/kg) * Maintenance dose: 1250 mg IV (11 mg/kg) every 16 hours * patient expected to accumulate, due to increased BMI * Goal trough level for HAP: 15 to 20 mcg/mL * Trough level ordered for 01/13/19 at 0930 Piperacillin/tazobactam * 4.5 g bolus administered over 30 minutes, then 4.5 g IV extended infusion every 8 hours for CrCl greater than 20 mL/min * Aggressive dosing selected due to BMI 35 or more (Patient's BMI=41.5 kg/m2) Pharmacy will continue to follow and will adjust dose/frequency as necessary. Thank you.
--- NOTE | 2019-01-12 14:46 | Hospitalist Progress Note ---
Date of Service January 12, 2019 Assessment & Plan (1) Chest pain: Present on admission with intermittent cough associated with sputum production Mostly related to pleuritic chest pain CTA chest showed o aneurysm or dissection identified involving the thoracic aorta and trace left hemopneumothorax. No evidence for PE Troponin x2 negative EKG showed no ischemic changes Currently denies any chest pain Continue monitor (2) Pneumonia: (3) Asthma exacerbation: (4) Chronic respiratory failure: CTA chest showed mild groundglass consolidation is identified throughout the right upper lung. Recently completed course of doxy, PO steroids WBC elevated on admission, now trending down Continue Zosyn and vanco MRSA nasal swab positive Blood cx pending Continue prednisone and oxygen supplement with duoneb treatment (5) Hemothorax: Chest CTA with evidence of trace left hemopneumothorax (new since CT performed in summer 2017) Repeat CXR done today showed moderate stable cardiomegaly. No acute process. Thoracic surgery on board and no surgical intervention needed at this time Continue monitor (6) Hypertension: Continue Lopressor with hold parameters (7) DM type 2 (diabetes mellitus, type 2): A1c of 6.2 on Nov 2018 Continue holding home agents Basal/bolus sliding scale per protocol while in-patient Monitor BS (8) Diastolic CHF: CXR showed no congestion Echo from Aug 2018 with preserved EF of 55% Continue spironolactone Will resume Lasix Hold metolazone for now Continue monitor closely (9) Hypothyroidism: Continue levothyroxine (10) Atrial fibrillation: Chronic A fib rate controlled Continue Diltiazem, Lopressor INR 2.7 today Will resume coumadin (11) CKD (chronic kidney disease), stage III: Kidney function at baseline Stable (12) GERD (gastroesophageal reflux disease): Continue PPI, H2 gabriela, carafate (13) Chronic back pain: Continue fentanyl patch, Lyrica, tylenol prn stable (14) Anxiety: Continue Buspirone, duloxetine, trazodone Stable (15) Hyperuricemia: Continue allopurinol and colchicine DVT Ppx: Resume coumadin INR 2.7 Code status: Full with NO MECH VENT Dispo: Continue monitor closely Subjective Pt was seen and examined Lying in bed with no distress Pt said that breathing slightly improves Denies an chest pain, palpitation, dizziness and fever Physical Exam Vital Signs (Past 24 Hours): Last Vital Signs Temp 36.7 C 01/12/19 11:26 Pulse 107 H 01/12/19 11:26 Resp 20 01/12/19 11:26 BP 113/74 01/12/19 11:26 Pulse Ox 98 01/12/19 11:26 Physical Exam: General- No acute distress Head- atraumatic Eyes- PERRL, EOMI, ENT- oropharynx clear Neck- supple, no JVD Lungs-Coarse BS Heart- regular rhythm; no murmur Abdomen- normal bowel sounds, soft, nontender Extremities- no calf tenderness Neuro- alert, oriented x 3; PERRL, EOMI; no facial palsy; no dysarthria Skin- warm & dry
[2019-01-12] MEDS: WARFARIN SOD 1 MG TAB PO SCH (17:28)
[2019-01-12] MEDS: TRAZODONE HCL 50 MG TAB PO SCH (20:57)
[2019-01-12] MEDS: TIOTROPIUM BROMIDE 5 PUFF/90 MCG INH INH SCH (21:00)
[2019-01-12] MEDS: MONTELUKAST SODIUM 10 MG TABLET PO SCH (21:02)
[2019-01-13] MEDS: CHECK FENTANYL PATCH PLACEMENT SCH ×3 (00:41→16:30)
[2019-01-13] MEDS: PIPERACILLIN/TAZOBACTAM 4.5 GM in DEXTROSE 5% 100 ML IV SCH ×3 (01:05→16:37)
[2019-01-13] MEDS: LEVALBUTEROL HCL 1.25 MG/3 ML NEB NEB SCH ×4 (01:42→19:14)
[2019-01-13 05:59] LABS: Hemoglobin 12.3 g/dL (12.0-16.0); Mean Corpuscular Hgb Conc 34.2 g/dL (32-36); Mean Corpuscular Volume 98.9 fL (80-100); Mean Platelet Volume 11.8 fL (7.4-10.4); Platelet Count 161 K/uL (130-400); RDW Coefficient of Variation 15.2 % (11.5-14.5); RDW Standard Deviation 55.3 fL (36.4-46.3); Red Blood Count 3.64 M/uL (4.2-5.4)
[2019-01-13] MEDS: LEVOTHYROXINE SODIUM 75 MCG TABLET PO SCH (06:13)
[2019-01-13] MEDS: PANTOprazole 40 MG TAB PO SCH (06:13)
[2019-01-13 06:25] LABS: BUN Creatinine Ratio 20.7 (10-20); Calcium 8.2 mg/dl (8.5-10.1); Creatinine Clr Calc Pharmacy 57.7 ml/min; Est GFR (African American) 58.7; Est GFR (Non-African American) 50.6; Potassium 3.4 mmol/L (3.5-5.1)
[2019-01-13 06:26] LABS: INR 2.1 (0.9-1.1); Prothrombin Time 20.4 Seconds (9.0-12.0)
[2019-01-13] MEDS: INSULIN ASPART 100 UNITS/ML 3 ML PEN SC SCH ×4 (07:43→22:20)
[2019-01-13] MEDS: FERROUS SULFATE 325 MG TAB PO SCH ×2 (07:45→22:17)
[2019-01-13] MEDS: DOCUSATE SODIUM 100 MG CAP PO SCH ×2 (07:45→22:17)
[2019-01-13] MEDS: DULOXETINE HCL 60 MG CAP PO SCH (07:45)
[2019-01-13] MEDS: SENNA 8.6 MG TAB PO SCH ×2 (07:46→22:18)
[2019-01-13] MEDS: BusPIRone 15 MG TAB PO SCH ×2 (07:46→22:17)
[2019-01-13] MEDS: POLYETHYLENE (MIRALAX) 17 GM PACK PO SCH (07:46)
[2019-01-13] MEDS: MAGNESIUM OXIDE 400 MG TAB PO SCH (07:46)
[2019-01-13] MEDS: SPIRONOLACTONE 25 MG TAB PO SCH (07:46)
[2019-01-13] MEDS: guaiFENesin 600 MG TABCR PO SCH ×2 (07:46→22:17)
[2019-01-13] MEDS: METOPROLOL TARTRATE 25 MG TAB PO SCH ×2 (07:46→22:17)
[2019-01-13] MEDS: FLUTICASONE/SALMETEROL (ADVAIR) 500/50 INH 14 PUFF INH SCH ×2 (07:47→22:16)
[2019-01-13] MEDS: dilTIAZem HCL 240 MG CAPCR PO SCH (07:47)
[2019-01-13] MEDS: SIMETHICONE 80 MG CHEW PO SCH ×3 (07:49→17:38)
[2019-01-13] MEDS: ALLOPURINOL 100 MG TAB PO SCH (07:49)
[2019-01-13] MEDS: INSULIN GLARGINE SOLOSTAR 100 UNITS/ML 3 ML PEN SC SCH ×2 (07:50→22:18)
[2019-01-13] MEDS: predniSONE 20 MG TAB PO SCH (07:51)
[2019-01-13] MEDS: PREGABALIN 50 MG CAP PO SCH ×3 (07:57→17:37)
[2019-01-13] MEDS ORDERED: POTASSIUM CHLORIDE 10 MEQ TABCR PO STA (08:13)
[2019-01-13] MEDS: ARTIFICIAL TEARS OPB SCH ×2 (09:03→22:16)
[2019-01-13] MEDS: MUPIROCIN 2% OINT 22 GM TUBE EXT SCH ×2 (09:04→22:17)
[2019-01-13] MEDS: SUCRALFATE 1 GM TAB PO SCH ×2 (09:04→22:16)
[2019-01-13] MEDS ORDERED: VANCOMYCIN TROUGH ONE (09:30)
[2019-01-13] MEDS: VANCOMYCIN HCL 1,250 MG in SODIUM CHLORIDE 0.9% 250 ML IV SCH (10:43)
--- NOTE | 2019-01-13 11:38 | Pharmacy Report ---
Pharmacy Abx Dose Short Note - Date of Service January 13, 2019 - Assessment & Plan Assessment * 78 year old F receiving Zosyn and vancomycin for treatment of HAP * Nasal MRSA swab positive * WBC still elevated, but afebrile * SCr stable Vancomycin * Goal vancomycin trough 15-20 mcg/mL * Trough of 19.5 mcg/mL is therapeutic and was obtained at/near usual steady state. However, patient is at risk for accumulation 2nd BMI of 41 kg/m2. * Will decrease dose very slightly to prevent accumulation to a supratherapeutic trough as the current trough is in the upper end of the goal range * Repeat trough prior to 3rd dose of new regimen Plan * Decrease vancomycin 1000 mg IV q16h * Trough 01/15 @ 0930 Pharmacy will continue to follow and will adjust dose/frequency as necessary. Thank you.
--- NOTE | 2019-01-13 12:05 | Progress Note ---
DATE: 01/13/2019 Ms. Crane was seen today on 01/13/2019. She came in with a cough, which has not resolved, though it is not really very productive. She had a very small pneumothorax on the left which I am not sure was clinically significant. At any rate, she had no pleural effusion and I think at this point I would simply follow her with x-rays. I do not believe an intervention is going to be required.
[2019-01-13] MEDS: WARFARIN SOD 1 MG TAB PO SCH (16:29)
--- NOTE | 2019-01-13 21:08 | Hospitalist Progress Note ---
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 No evidence for PE Troponin x2 negative EKG showed no ischemic changes Currently denies any chest pain Continue monitor resolved (2) Pneumonia: (3) Asthma exacerbation: (4) Chronic respiratory failure: CTA chest showed mild groundglass consolidation is identified throughout the right upper lung. Recently completed course of doxy, PO steroids WBC elevated on admission, now trending down Continue Zosyn and vanco MRSA nasal swab positive Blood cx no growth Sputum cx pending Continue prednisone and oxygen supplement with duoneb treatment (5) Hemothorax: Chest CTA with evidence of trace left hemopneumothorax (new since CT performed in summer 2017) Repeat CXR done today showed moderate stable cardiomegaly. No acute process. Thoracic surgery on board and no surgical intervention needed at this time Continue monitor (6) Hypertension: Continue Lopressor with hold parameters (7) DM type 2 (diabetes mellitus, type 2): A1c of 6.2 on Nov 2018 Continue holding home agents Basal/bolus sliding scale per protocol while in-patient Monitor BS (8) Diastolic CHF: CXR showed no congestion Echo from Aug 2018 with preserved EF of 55% Continue spironolactone Lasix Resume Hold metolazone for now Continue monitor closely (9) Hypothyroidism: Continue levothyroxine (10) Atrial fibrillation: Chronic A fib rate controlled Continue Diltiazem, Lopressor INR 1.9 today Continue coumadin (11) CKD (chronic kidney disease), stage III: Kidney function at baseline Stable (12) GERD (gastroesophageal reflux disease): Continue PPI, H2 gabriela, carafate (13) Chronic back pain: Continue fentanyl patch, Lyrica, tylenol prn stable (14) Anxiety: Continue Buspirone, duloxetine, trazodone Stable (15) Hyperuricemia: Continue allopurinol and colchicine Morbid Obesity Counseling weight loss DVT Ppx: Resume coumadin INR 1.9 Code status: Full with NO MECH VENT Dispo: Continue monitor closely Subjective Pt was seen and examined Lying in bed with no distress with sister at bedside Pt said that she feels much better Denies any chest pain, palpitation, dizziness and SOB Physical Exam Vital Signs (Past 24 Hours): Last Vital Signs Temp 37.2 C 01/13/19 19:41 Pulse 87 01/13/19 19:41 Resp 16 01/13/19 19:41 BP 116/73 01/13/19 19:41 Pulse Ox 92 01/13/19 19:41 Physical Exam: General- No acute distress Head- atraumatic Eyes- PERRL, EOMI, ENT- oropharynx clear Neck- supple, no JVD Lungs- +mild Coarse BS Heart- regular rhythm; no murmur Abdomen- normal bowel sounds, soft, nontender Extremities- no calf tenderness Neuro- alert, oriented x 3; PERRL, EOMI; no facial palsy; no dysarthria Skin- warm & dry
[2019-01-13] MEDS: MONTELUKAST SODIUM 10 MG TABLET PO SCH (22:17)
[2019-01-13] MEDS: TRAZODONE HCL 50 MG TAB PO SCH (22:17)
[2019-01-13] MEDS: TIOTROPIUM BROMIDE 5 PUFF/90 MCG INH INH SCH (22:18)
[2019-01-14] MEDS: CHECK FENTANYL PATCH PLACEMENT SCH ×3 (00:40→16:57)
[2019-01-14] MEDS: VANCOMYCIN HCL 1,000 MG in SODIUM CHLORIDE 0.9% 250 ML IV SCH ×2 (01:58→19:12)
[2019-01-14] MEDS: PIPERACILLIN/TAZOBACTAM 4.5 GM in DEXTROSE 5% 100 ML IV SCH ×3 (01:59→16:55)
[2019-01-14] MEDS: LEVALBUTEROL HCL 1.25 MG/3 ML NEB NEB SCH ×4 (02:22→19:03)
[2019-01-14] MEDS: LEVOTHYROXINE SODIUM 75 MCG TABLET PO SCH (06:22)
[2019-01-14] MEDS: PANTOprazole 40 MG TAB PO SCH (06:22)
[2019-01-14 07:57] LABS: Creatinine Clr Calc Pharmacy 53.7 ml/min; Est GFR (African American) 53.2; Est GFR (Non-African American) 45.9
[2019-01-14] MEDS: BusPIRone 15 MG TAB PO SCH ×2 (08:31→21:11)
[2019-01-14] MEDS: FERROUS SULFATE 325 MG TAB PO SCH ×2 (08:31→21:13)
[2019-01-14] MEDS: predniSONE 20 MG TAB PO SCH (08:31)
[2019-01-14] MEDS: METOPROLOL TARTRATE 25 MG TAB PO SCH ×2 (08:32→21:17)
[2019-01-14] MEDS: guaiFENesin 600 MG TABCR PO SCH ×2 (08:32→21:17)
[2019-01-14] MEDS: ALLOPURINOL 100 MG TAB PO SCH (08:32)
[2019-01-14] MEDS: SPIRONOLACTONE 25 MG TAB PO SCH (08:32)
[2019-01-14] MEDS: DULOXETINE HCL 60 MG CAP PO SCH (08:32)
[2019-01-14] MEDS: SENNA 8.6 MG TAB PO SCH ×2 (08:32→21:15)
[2019-01-14] MEDS: DOCUSATE SODIUM 100 MG CAP PO SCH ×2 (08:32→21:10)
[2019-01-14] MEDS: MAGNESIUM OXIDE 400 MG TAB PO SCH (08:33)
[2019-01-14] MEDS: dilTIAZem HCL 240 MG CAPCR PO SCH (08:33)
[2019-01-14] MEDS: PREGABALIN 50 MG CAP PO SCH ×3 (08:33→17:03)
[2019-01-14] MEDS: FLUTICASONE/SALMETEROL (ADVAIR) 500/50 INH 14 PUFF INH SCH ×2 (08:34→21:07)
[2019-01-14] MEDS: SIMETHICONE 80 MG CHEW PO SCH ×3 (08:34→17:01)
[2019-01-14] MEDS: INSULIN GLARGINE SOLOSTAR 100 UNITS/ML 3 ML PEN SC SCH ×2 (08:36→21:20)
[2019-01-14] MEDS: INSULIN ASPART 100 UNITS/ML 3 ML PEN SC SCH ×4 (08:37→21:22)
[2019-01-14] MEDS: ARTIFICIAL TEARS OPB SCH ×2 (08:39→21:18)
[2019-01-14] MEDS: MUPIROCIN 2% OINT 22 GM TUBE EXT SCH ×2 (08:40→21:18)
[2019-01-14] MEDS: SUCRALFATE 1 GM TAB PO SCH ×2 (10:47→21:16)
[2019-01-14] MEDS: fentaNYL 50 MCG/HR TDSY TD SCH (14:11)
[2019-01-14 15:36] LABS: INR 1.9 (0.9-1.1); Prothrombin Time 18.2 Seconds (9.0-12.0)
[2019-01-14] MEDS: WARFARIN SOD 1 MG TAB PO SCH (16:56)
[2019-01-14] MEDS ORDERED: VANCOMYCIN TROUGH ONE (17:30)
--- NOTE | 2019-01-14 19:52 | Hospitalist Progress Note ---
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 No evidence for PE Troponin x2 negative EKG showed no ischemic changes Currently denies any chest pain Continue monitor resolved (2) Pneumonia: (3) Asthma exacerbation: (4) Chronic respiratory failure: CTA chest showed mild groundglass consolidation is identified throughout the right upper lung. Recently completed course of doxy, PO steroids WBC elevated on admission, now trending down Blood cx no growth Sputum cx growth MRSA MRSA nasal swab positive Continue vanco IV, will transition to oral abx either doxy or Zyvox tomorrow on discharge Continue prednisone and oxygen supplement with duoneb treatment (5) Hemothorax: Chest CTA with evidence of trace left hemopneumothorax (new since CT performed in summer 2017) Repeat CXR done today showed moderate stable cardiomegaly. No acute process. Thoracic surgery on board and no surgical intervention needed at this time Continue monitor (6) Hypertension: Continue Lopressor with hold parameters (7) DM type 2 (diabetes mellitus, type 2): A1c of 6.2 on Nov 2018 Continue holding home agents Basal/bolus sliding scale per protocol while in-patient Monitor BS (8) Diastolic CHF: CXR showed no congestion Echo from Aug 2018 with preserved EF of 55% Continue spironolactone Lasix Resume Hold metolazone for now Continue monitor closely (9) Hypothyroidism: Continue levothyroxine (10) Atrial fibrillation: Chronic A fib rate controlled Continue Diltiazem, Lopressor INR 1.9 today Continue coumadin (11) CKD (chronic kidney disease), stage III: Kidney function at baseline Stable (12) GERD (gastroesophageal reflux disease): Continue PPI, H2 gabriela, carafate (13) Chronic back pain: Continue fentanyl patch, Lyrica, tylenol prn stable (14) Anxiety: Continue Buspirone, duloxetine, trazodone Stable (15) Hyperuricemia: Continue allopurinol and colchicine Morbid Obesity Counseling weight loss DVT Ppx: Resume coumadin INR 1.9 Code status: Full with NO MECH VENT Dispo: Continue monitor closely Subjective Pt was seen and examined Lying in bed with no distress Pt said that she feels much better Denies any chest pain, palpitation and SOB Physical Exam Vital Signs (Past 24 Hours): Last Vital Signs Temp 36.9 C 01/14/19 15:33 Pulse 110 H 01/14/19 19:03 Resp 18 01/14/19 19:03 BP 111/76 01/14/19 15:33 Pulse Ox 97 01/14/19 19:03 Physical Exam: General- No acute distress Head- atraumatic Eyes- PERRL, EOMI, ENT- oropharynx clear Neck- supple, no JVD Lungs- +mild Coarse BS Heart- regular rhythm; no murmur Abdomen- normal bowel sounds, soft, nontender Extremities- no calf tenderness Neuro- alert, oriented x 3; PERRL, EOMI; no facial palsy; no dysarthria Skin- warm & dry
[2019-01-14] MEDS: TIOTROPIUM BROMIDE 5 PUFF/90 MCG INH INH SCH (21:09)
[2019-01-14] MEDS: TRAZODONE HCL 50 MG TAB PO SCH (21:13)
[2019-01-14] MEDS: MONTELUKAST SODIUM 10 MG TABLET PO SCH (21:14)
--- NOTE | 2019-01-14 21:20 | Pharmacy Report ---
Pharmacy Abx Dose Short Note - Date of Service January 14, 2019 - Assessment & Plan Assessment 78 year old F receiving IV Vancomycin and Zosyn for treatment of pneumonia Day # 4 of antimicrobial therapy. Plan Vancomycin * Trough level of 21.4 mcg/mL is supratherapeutic (appropriately drawn) despite decr' dose. Will extend dosing interval to target a lower trough. Patient likely accumulating Vancomycin due to obesity. * Change to 1000 mg IV every 20 hours * Goal trough level for pneumonia : 15 to 20 mcg/mL * Trough or random level ordered for: 01/16/19 @ 9266 Pharmacy will continue to follow and will adjust dose/frequency as necessary. Thank you.
[2019-01-14] MEDS ORDERED: VANCOMYCIN HCL 1,000 MG in SODIUM CHLORIDE 0.9% 250 ML IV SCH (22:00)
[2019-01-15] MEDS: CHECK FENTANYL PATCH PLACEMENT SCH ×3 (00:05→17:06)
[2019-01-15] MEDS: LEVALBUTEROL HCL 1.25 MG/3 ML NEB NEB SCH ×3 (01:49→14:13)
[2019-01-15] MEDS: PANTOprazole 40 MG TAB PO SCH (05:54)
[2019-01-15] MEDS: LEVOTHYROXINE SODIUM 75 MCG TABLET PO SCH (05:54)
[2019-01-15 08:04] LABS: Prothrombin Time 19.1 Seconds (9.0-12.0)
[2019-01-15] MEDS: INSULIN ASPART 100 UNITS/ML 3 ML PEN SC SCH ×3 (08:10→17:08)
[2019-01-15 08:11] LABS: BUN Creatinine Ratio 23.9 (10-20); Creatinine Clr Calc Pharmacy 58.3 ml/min; Est GFR (African American) 58.7; Est GFR (Non-African American) 50.6; Potassium 3.8 mmol/L (3.5-5.1)
[2019-01-15] MEDS: FLUTICASONE/SALMETEROL (ADVAIR) 500/50 INH 14 PUFF INH SCH (08:14)
[2019-01-15] MEDS: ARTIFICIAL TEARS OPB SCH (08:14)
[2019-01-15] MEDS: SPIRONOLACTONE 25 MG TAB PO SCH (08:14)
[2019-01-15] MEDS: BusPIRone 15 MG TAB PO SCH (08:16)
[2019-01-15] MEDS: dilTIAZem HCL 240 MG CAPCR PO SCH (08:16)
[2019-01-15] MEDS: MUPIROCIN 2% OINT 22 GM TUBE EXT SCH (08:16)
[2019-01-15] MEDS: DULOXETINE HCL 60 MG CAP PO SCH (08:16)
[2019-01-15] MEDS: DOCUSATE SODIUM 100 MG CAP PO SCH (08:16)
[2019-01-15] MEDS: INSULIN GLARGINE SOLOSTAR 100 UNITS/ML 3 ML PEN SC SCH (08:17)
[2019-01-15] MEDS: FERROUS SULFATE 325 MG TAB PO SCH (08:17)
[2019-01-15] MEDS: PREGABALIN 50 MG CAP PO SCH ×3 (08:18→17:05)
[2019-01-15] MEDS: METOPROLOL TARTRATE 25 MG TAB PO SCH (08:18)
[2019-01-15] MEDS: SIMETHICONE 80 MG CHEW PO SCH ×3 (08:19→17:06)
[2019-01-15] MEDS: SENNA 8.6 MG TAB PO SCH (08:19)
[2019-01-15] MEDS: predniSONE 20 MG TAB PO SCH (08:19)
[2019-01-15] MEDS: MAGNESIUM OXIDE 400 MG TAB PO SCH (08:19)
[2019-01-15] MEDS: guaiFENesin 600 MG TABCR PO SCH (08:19)
[2019-01-15] MEDS: ALLOPURINOL 100 MG TAB PO SCH (08:20)
[2019-01-15] MEDS ORDERED: FUROSEMIDE 40 MG TAB PO SCH (09:00)
[2019-01-15] MEDS ORDERED: VANCOMYCIN TROUGH ONE ×2 (09:30→17:30)
[2019-01-15] MEDS: SUCRALFATE 1 GM TAB PO SCH (10:21)
--- NOTE | 2019-01-15 14:16 | Hospitalist Progress Note ---
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 No evidence for PE Troponin x2 negative EKG showed no ischemic changes Currently denies any chest pain Continue monitor resolved (2) Pneumonia: (3) Asthma exacerbation: (4) Chronic respiratory failure: CTA chest showed mild groundglass consolidation is identified throughout the right upper lung. Recently completed course of doxy, PO steroids WBC elevated on admission, now trending down Blood cx no growth Sputum cx growth MRSA MRSA nasal swab positive Continue vanco IV day 4 Will transition to oral abx with doxycycline on discharge Continue prednisone, oxygen supplement and duoneb treatment Clinically improves significantly (5) Hemothorax: Chest CTA with evidence of trace left hemopneumothorax (new since CT performed in summer 2017) Repeat CXR done today showed moderate stable cardiomegaly. No acute process. Thoracic surgery on board and no surgical intervention needed at this time Stable (6) Hypertension: Continue Lopressor with hold parameters Stable (7) DM type 2 (diabetes mellitus, type 2): A1c of 6.2 on Nov 2018 Continue holding home agents Basal/bolus sliding scale per protocol while in-patient Monitor BS (8) Diastolic CHF: CXR showed no congestion Echo from Aug 2018 with preserved EF of 55% Continue spironolactone Continue Lasix daily Resume Metolazone on discharge Continue monitor closely (9) Hypothyroidism: Continue levothyroxine (10) Atrial fibrillation: Chronic A fib rate controlled Continue Diltiazem, Lopressor INR 2 today Continue coumadin Monitor PT/INR (11) CKD (chronic kidney disease), stage III: Kidney function at baseline Stable (12) GERD (gastroesophageal reflux disease): Continue PPI, H2 gabriela, carafate (13) Chronic back pain: Continue fentanyl patch, Lyrica, tylenol prn stable (14) Anxiety: Continue Buspirone, duloxetine, trazodone Stable (15) Hyperuricemia: Continue allopurinol and colchicine Morbid Obesity Counseling weight loss DVT Ppx: On coumadin INR 2 Code status: Full with NO MECH VENT Dispo: Discharge to [facility] today Subjective Pt was seen and examined Sitting in chair with no distress eating lunch Pt said that she feels much better She said that her breathing is much better Denies any chest pain, palpitation, dizziness and SOB Physical Exam Physical Exam: General- No acute distress Head- atraumatic Eyes- PERRL, EOMI, ENT- oropharynx clear Neck- supple, no JVD Lungs- no wheezing and crackles Heart- irregular rhythm; no murmur Abdomen- normal bowel sounds, soft, nontender Extremities- no calf tenderness Neuro- alert, oriented x 3; PERRL, EOMI; no facial palsy; no dysarthria Skin- warm & dry Results & Data Vital Signs (Past 12 Hours) Vital Signs Temp Pulse Pulse Pulse Resp BP BP 01/15/19 12:36 36.4 C L 71 77 20 112/79 122/84 01/15/19 11:19 36.4 C L 77 20 112/79 01/15/19 08:00 93 H 01/15/19 07:49 36.2 C L 121 H 20 155/89 H 01/15/19 07:30 71 18 01/15/19 04:34 36.5 C 91 H 22 122/84 Pulse Ox 01/15/19 12:36 91 01/15/19 11:19 91 01/15/19 08:00 01/15/19 07:49 95 01/15/19 07:30 94 01/15/19 04:34 96
[2019-01-15 15:24] VITALS: BP 131/82; PULSE 108; TEMP 98.4; O2SAT 96
[2019-01-15] MEDS ORDERED: DOXYCYCLINE HYCLATE 100 MG CAP PO STA (16:18)
[2019-01-15] MEDS: WARFARIN SOD 1 MG TAB PO SCH (17:05)
[2019-01-16] MEDS ORDERED: VANCOMYCIN TROUGH ONE (13:30)
--- NOTE | 2019-01-19 22:25 | Discharge Summary ---
Date of Service January 15, 2019 Admission HPI Per Admitting Provider This is a 78 yo F [facility] resident with PMH atrial fibrillation on Coumadin, obesity hypoventilation syndrome, asthma (chronic 2L O2 NC), chronic diastolic heart failure, HTN, anxiety, CKD III and other medical problems listed below who presents with chest pain beginning this morning at 0600. Patient woke up with non-radiating central chest pain with associated shortness of breath. Denies any diaphoresis, nausea vomiting. Was admitted to our service for flu, cough and hypoxia in November 2018 and has had continued productive cough with sputum and pleuritic chest pain since then. Currently endorsing thick, yellow productive sputum and wheezing. Denies fever, chills, lightheadedness, headache, palpitations, hemoptysis or worsening lower extremity swelling. Is chronically on 2 L nasal cannula at [facility], per patient. During November admission, patient was treated with vancomycin, cefepime and prednisone was transitioned to doxycycline upon discharge. Has also recently completed course of p.o. prednisone per medication reconciliation. In ED, patient found to be tachycardic at 100 bpm. Leukocytosis of 14.4 7K. Chest CTA performed with evidence of trace left hemopneumothorax (new since CT performed in summer 2017) and mild ground glass consolidation is identified throughout the right upper lung. This is nonspecific and could represent a mild infectious/inflammatory pneumonitis, an aspiration event, or less likely a pulmonary contusion if there has been recent trauma. Covered with broad-spectrum antibiotics for possible pneumonia, resuscitated with 1 L normal saline and given potassium supplementation for K of 3.3. ED physician discussed with Dr. Lau, who will see patient tomorrow. Denies recent trauma or falls. Admission Exam Per Admitting Provider General Appearance: WD/WN, in mild distress from persistent coughing, morbidly obese, appears chronically ill Head: normocephalic, atraumatic Eyes: normal inspection, PERRL, EOMI ENT: hearing grossly normal, pharynx normal (moist mucous membranes) Neck: supple, no JVD, no adenopathy Respiratory/Chest: Diffuse wheezes and rhonci bilaterally. No respiratory distress or accessory muscle use Cardiovascular: Irregular rate and rhythm, no murmur, normal peripheral pulses, 1+ bilateral lower extremity edema Abdomen/GI: normal bowel sounds, soft, non-tender to palpation Extremities/Musculoskelatal: normal inspection, no calf tenderness, normal capillary refill Neurologic/Psych: alert, normal mood/affect, oriented x 3 Skin: normal color, warm/dry Principal Diagnosis Pneumonia (MRSA) Asthma exacerbation: Chronic respiratory failure: Afib Hemothorax Diabetes Discharge Exam General- No acute distress Head- atraumatic Eyes- PERRL, EOMI, ENT- oropharynx clear Neck- supple, no JVD Lungs- no wheezing and crackles Heart- irregular rhythm; no murmur Abdomen- normal bowel sounds, soft, nontender Extremities- no calf tenderness Neuro- alert, oriented x 3; PERRL, EOMI; no facial palsy; no dysarthria Skin- warm & dry Discharge Data Allergies Allergy/AdvReac Type Severity Reaction Status Date / Time meperidine [From Demerol] Allergy Unknown ON Verified 01/11/19 08:53 HILL LIST morphine AdvReac Intermediate vomiting Verified 01/11/19 08:53 oxycodone AdvReac Intermediate vomit blood Verified 01/11/19 08:53 propoxyphene AdvReac Intermediate abd vomit Verified 01/11/19 08:53 blood tramadol AdvReac Intermediate vomiting Verified 01/11/19 08:53 Bactrim AdvReac Mild GI SYMPTOMS Verified 03/06/18 21:06 codeine AdvReac Mild vomiting Verified 01/11/19 08:53 olmesartan AdvReac Mild GI SYMPTOMS Verified 01/11/19 08:53 Sulfa (Sulfonamide AdvReac Mild GI SYMPTOMS Verified 01/11/19 08:53 Antibiotics) sulfamethoxazole AdvReac Mild GI SYMPTOMS Verified 01/11/19 08:53 trimethoprim AdvReac Mild GI SYMPTOMS Verified 01/11/19 08:53 carisoprodol AdvReac Unknown GI SYMPTOMS Verified 01/11/19 08:53 Consultations 01/11/19 12:09 Consult Thoracic Surgery Stat 01/11/19 12:19 ED Decision to Admit Stat 01/11/19 13:20 Consult Case Management - Discharge Planning Routine Ordered Studies 01/11/19 07:58 CT angio chest dissec wo/w con Stat CT ANGIOGRAM OF THE CHEST COMBO CLINICAL HISTORY: Atypical chest pain. COMPARISON STUDY: Chest CT scans dated 04/08/2018 and 06/10/2015. TECHNIQUE: Before and following the IV administration of 118 cc of Optiray 320, CT angiogram of the chest was performed from the thoracic inlet to the upper abdomen utilizing the dissection protocol. Images are reviewed in the axial, sagittal, and coronal planes. 3-D MIPS images are created and assessed. IV contrast was administered without complication. A dose lowering technique was utilized adhering to the principles of ALARA. The examination is degraded by streak artifact from the arms which cannot elevated above the chest. CT DOSE: 2282.71 mGy.cm FINDINGS: Thyroid: Atrophic. Thoracic aorta: No intramural hematoma is seen on the unenhanced series. There is mild atherosclerotic calcification of the thoracic aorta, which is normal in caliber and demonstrates standard 3-vessel arch anatomy. No dissection is seen. The arch vessels are widely patent. Pulmonary vasculature: The pulmonary trunk is normal in caliber. There are no filling defects identified within the main, lobar, or segmental pulmonary arteries to suggest pulmonary embolus. Heart: The heart is top normal in size and without pericardial effusion. The coronary arteries are densely calcified. Lungs and pleural spaces: There is a trace left pneumothorax. Foci of bibasilar scarring/atelectasis are observed. Trace hemothorax is noted at the left lung base. The trachea and central airways are clear. Mild groundglass consolidation is seen throughout the right upper lobe and the superior segment of the right lower lobe. There is a 3 mm pulmonary nodule in the left lower lobe seen image #[id number]. Mediastinum: There is no mediastinal lymphadenopathy. Mónica: Clear. Axillae: There is no axillary lymphadenopathy. Upper abdomen: There is a small hiatal hernia. Partially visualized upper abdominal viscera is within normal limits. Skeletal structures: The skeletal structures are osteopenic. Degenerative change and mild hyperkyphosis are noted in the thoracic spine. There is a mild chronic superior endplate compression deformity of T4. Advanced arthritic change is seen in the shoulders, with surrounding bursal fluid and calcified joint bodies. No lytic or blastic bony lesions are seen. No acute/distracted rib fracture is identified. There are chronic/healed right posterior rib fractures. IMPRESSION: 1. There is no aneurysm or dissection identified involving the thoracic aorta. 2. There is trace left hemopneumothorax. 3. No acute/distracted left-sided rib fracture is identified. 4. Mild groundglass consolidation is identified throughout the right upper lung. This is nonspecific and could represent a mild infectious/inflammatory pneumonitis, an aspiration event, or less likely a pulmonary contusion if there has been recent trauma. Clinical correlation will be required. 5. There is no evidence of pulmonary embolus in the main, lobar, or segmental pulmonary arteries. 6. Additional findings as above. Electronically signed by: Coleman Smith M.D. 01/11/2019 9:54 AM Dictated: 01/11/19940 Transcribed: 01/11/19940 SINGLE VIEW CHEST CLINICAL HISTORY: Sepsis. FINDINGS: An AP, portable, upright chest radiograph is compared to study dated 12/27/2018 and correlated with chest CT dated 04/18/2018. The examination is degraded by portable technique and patient rotation. The heart is enlarged and there is atherosclerotic calcification of the thoracic aorta. The pulmonary vasculature is noncongested. Chronic interstitial thickening is similar to previous. There is bibasilar scarring/atelectasis. No airspace consolidation or large pleural effusion is identified. No pneumothorax is seen. The skeletal structures are osteopenic. The bony thorax is grossly intact. Advanced arthritic change is seen in the shoulders. IMPRESSION: Cardiomegaly with no acute cardiopulmonary abnormality. Electronically signed by: Coleman Smith M.D. 01/11/2019 8:51 AM Dictated: 01/11/19 0849 Transcribed: 01/11/1948 XR chest 1V portable CLINICAL HISTORY: pneumonia dyspnea COMPARISON STUDY: 01/11/2018 FINDINGS: Moderate stable cardiomegaly. Lungs remain clear. Diaphragms are smooth. IMPRESSION: Moderate stable cardiomegaly. No acute process. The above report was generated using voice recognition software. It may contain grammatical, syntax or spelling errors. Electronically signed by: Brain An M.D. 01/12/2019 7:10 AM Dictated: 01/12/19 0710 Transcribed: 01/12/19 0710 Hospital Course (1) Chest pain: Present on admission with intermittent cough associated with sputum production Mostly related to pleuritic chest pain CTA chest showed o aneurysm or dissection identified involving the thoracic aorta and trace left hemopneumothorax. No evidence for PE Troponin x2 negative EKG showed no ischemic changes Currently denies any chest pain Continue monitor resolved (2) Pneumonia: (3) Asthma exacerbation: (4) Chronic respiratory failure: CTA chest showed mild groundglass consolidation is identified throughout the right upper lung. Recently completed course of doxy, PO steroids WBC elevated on admission, now trending down Blood cx no growth Sputum cx growth MRSA MRSA nasal swab positive Continue vanco IV day 4 Will transition to oral abx with doxycycline on discharge Continue prednisone, oxygen supplement and duoneb treatment Clinically improves significantly (5) Hemothorax: Chest CTA with evidence of trace left hemopneumothorax (new since CT performed in summer 2017) Repeat CXR done today showed moderate stable cardiomegaly. No acute process. Thoracic surgery on board and no surgical intervention needed at this time Stable (6) Hypertension: Continue Lopressor with hold parameters Stable (7) DM type 2 (diabetes mellitus, type 2): A1c of 6.2 on Nov 2018 Continue holding home agents Basal/bolus sliding scale per protocol while in-patient Monitor BS (8) Diastolic CHF: CXR showed no congestion Echo from Aug 2018 with preserved EF of 55% Continue spironolactone Continue Lasix daily Resume Metolazone on discharge Continue monitor closely (9) Hypothyroidism: Continue levothyroxine (10) Atrial fibrillation: Chronic A fib rate controlled Continue Diltiazem, Lopressor INR 2 today Continue coumadin Monitor PT/INR (11) CKD (chronic kidney disease), stage III: Kidney function at baseline Stable (12) GERD (gastroesophageal reflux disease): Continue PPI, H2 gabriela, carafate (13) Chronic back pain: Continue fentanyl patch, Lyrica, tylenol prn stable (14) Anxiety: Continue Buspirone, duloxetine, trazodone Stable (15) Hyperuricemia: Continue allopurinol and colchicine Morbid Obesity Counseling weight loss DVT Ppx: On coumadin INR 2 Code status: Full with NO MECH VENT Dispo: Discharge to [facility] today Total Time Total Time Spent Total Time Spent (In Minutes): 35 minutes Total Time Includes: Examination of the Patient, Discharge Planning, Medication Reconciliation, Communication With Other Providers and Other Discharge Plan Discharge Items Patient Disposition: Transfer Halfway Fac Reason For Visit: chest pain,PNA Discharge Diagnosis: Pneumonia (MRSA) Asthma exacerbation: Chronic respiratory failure: Afib Hemothorax Diabetes Discharge Goals: Decrease discomfort, Improve disease control, Improve function and Increase independence Activity: Resume your previous activity Activity Comment: As tolerated Non-emergency contact: Primary Care Provider Call non-emergency contact if: you have any medication questions, your symptoms worsen and your temperature is above 101 Follow-up/Referrals: Viry Lemus MD [Primary Care Provider] - Diet: Carb Consistent or DM2 and Heart Healthy Addtl Provider Instructions: Follow up with your primary care provider at [facility] Complete the course of the antibiotic Continue oxygen supplement Continue monitor PT/INR Continue physical and occupational therapy Fall precaution Prescriptions: New doxycycline hyclate 100 mg tablet 100 mg PO BID 7 Days Qty: 14 RF: 0 Continued acetaminophen 650 mg Suppository 650 mg KY Q6H PRN (Reason: TEMP >100.4, IF NOT TAKING PO) RF: 0 ipratropium-albuterol 0.5 mg-3 mg(2.5 mg base)/3 mL Solution For Nebulization 3 ml INHALATION Q4H PRN (Reason: Shortness Of Breath Or Wheezing) RF: 0 trazodone 50 mg Tablet 50 mg PO HS RF: 0 polyethylene glycol 3350 [Miralax] 17 gram Powder In Packet 17 g PO Q OTHER DAY RF: 0 ondansetron HCl [Zofran] 8 mg Tablet 8 mg PO Q8 PRN (Reason: Nausea) RF: 0 diltiazem HCl [Cardizem CD] 240 mg Capsule,Extended Release 24hr 240 mg PO QAM RF: 0 sucralfate 1 gram Tablet 1 g PO AMPM RF: 0 allopurinol 100 mg Tablet 200 mg PO QAM RF: 0 pantoprazole 20 mg Tablet,Delayed Release (Dr/Ec) 20 mg PO DAILYBB RF: 0 levothyroxine 75 mcg Tablet 75 mcg PO DAILYBB RF: 0 lorazepam 0.5 mg Tablet 0.5 mg PO TID PRN (Reason: Anxiety) RF: 0 magnesium hydroxide [Milk of Magnesia] 400 mg/5 mL Suspension 30 ml PO DAILY PRN (Reason: NO BM X 3 DAYS.) RF: 0 Refresh Tears 0.5 % Drops 1 drp OPB BID RF: 0 meclizine 25 mg Tablet 25 mg PO TID PRN (Reason: Dizziness) RF: 0 bisacodyl [Dulcolax (bisacodyl)] 10 mg Suppository 10 mg KY DAILY PRN (Reason: NO RESULTS FROM MOM, DAY 5) RF: 0 buspirone 30 mg Tablet 15 mg PO BID RF: 0 ferrous sulfate 325 mg (65 mg iron) Tablet 325 mg PO AMHS RF: 0 fluticasone propion-salmeterol [Advair Diskus] 500-50 mcg/dose Blister With Device 1 inh INHALATION BID RF: 0 Fleet Enema 19-7 gram/118 mL Enema 118 ml KY DAILY PRN (Reason: DAY 6 OF NO BM.) RF: 0 docusate sodium [Colace] 100 mg Capsule 100 mg PO AMHS RF: 0 montelukast 10 mg Tablet 10 mg PO PM RF: 0 colchicine 0.6 mg Tablet 0.6 mg PO QAM RF: 0 magnesium oxide 250 mg magnesium Tablet 250 mg PO QAM RF: 0 metoprolol tartrate 25 mg Tablet 25 mg PO AMPM RF: 0 duloxetine 60 mg Capsule,Delayed Release(Dr/Ec) 60 mg PO QAM RF: 0 Lyrica 50 mg Capsule 50 mg PO TIDM RF: 0 acetaminophen [Tylenol] 325 mg Capsule 650 mg PO Q4 PRN (Reason: Fever Or Pain) RF: 0 melatonin 10 mg Tablet 10 mg PO HS RF: 0 Glucosamine Chondroitin PLUS [phone] mg Capsule 1 tab PO PC RF: 0 fentanyl 50 mcg/hr Patch 72 Hour 1 patch TRANSDERMAL Q72H Qty: 0 RF: 0 furosemide [Lasix] 40 mg Tablet 40 mg PO QAM RF: 0 metolazone 2.5 mg Tablet 2.5 mg PO 2XWK RF: 0 Lantus U-100 Insulin 100 unit/mL Solution 20 unit SUBCUT HS RF: 0 simethicone [Gas Relief] 180 mg Capsule 180 mg PO DAILY PRN (Reason: Gastrointestinal Spasms Or Cramping) RF: 0 Novolog U-100 Insulin aspart 100 unit/mL Solution 10 unit SUBCUT AC RF: 0 ranitidine HCl [Zantac] 150 mg Tablet 150 mg PO BID RF: 0 Allevyn 4 X 4 " Bandage RF: 0 Spiriva Respimat 1.25 mcg/actuation Mist 2 puff INHALATION PM RF: 0 spironolactone 25 mg Tablet 12.5 mg PO QAM Qty: 0 RF: 0 sennosides [senna] 8.6 mg Tablet 8.6 mg PO BID RF: 0 guaifenesin [Amy-Tussin] 100 mg/5 mL Liquid 200 mg PO Q4H PRN (Reason: Cough) RF: 0 nystatin [Nyamyc] 100,000 unit/gram powder 1 applic topical BID RF: 0 warfarin 1 mg tablet 1 mg PO PM RF: 0 warfarin 1 mg tablet 0.5 mg PO UD RF: 0 Incruse Ellipta 62.5 mcg/actuation Blister With Device 1 inh INHALATION PM RF: 0 Stand-Alone Forms: Call Back Authorization, [facility] Discharge Orders: Discharge Order (Routine); Ordered 01/15/19 Ordered By: Yee Varela Skilled Items Patient informed of condition?: Yes DNR: No Discharge Level of Care: Skilled Communicable Disease: No Discharge Prognosis: Stable Admission Data Admit Date/Time: 01/11/19 12:31 Attending Provider: Yee Varela Admit Provider: Yee Varela Primary Care Provider: Viry Lemus Other Providers: Yannick Lau Service: Telemetry Other Interventions: Discharge Summary Assessment (RN) Last Done: 01/15/19 12:36 DC Date/Time DO NOT enter until pt leaves facility: 01/15/19 17:55
== END 2019-01-15 17:55 | DRG 194 ==
LOC: ED 07:49 → 2S 12:31
DX: J18.9 Pneumonia, unspecified organism; J94.2 Hemothorax; F41.9 Anxiety disorder, unspecified; Z79.899 Other long term (current) drug therapy; Z68.41 Body mass index [BMI] 40.0-44.9, adult; N18.3 Chronic kidney disease, stage 3 (moderate); G89.29 Other chronic pain; I13.0 Hypertensive heart and chronic kidney disease with heart failure and stage 1 through stage 4 chronic kidney disease, or unspecified chronic kidney disease; Z79.4 Long term (current) use of insulin; J45.901 Unspecified asthma with (acute) exacerbation; I50.30 Unspecified diastolic (congestive) heart failure; E66.01 Morbid (severe) obesity due to excess calories; Z79.01 Long term (current) use of anticoagulants; E11.22 Type 2 diabetes mellitus with diabetic chronic kidney disease; E79.0 Hyperuricemia without signs of inflammatory arthritis and tophaceous disease; M54.9 Dorsalgia, unspecified; I48.2 Chronic atrial fibrillation; E03.9 Hypothyroidism, unspecified; K21.9 Gastro-esophageal reflux disease without esophagitis

== ENCOUNTER 2019-07-03 01:48 | Inpatient (IN) ==
[2019-07-03] MEDS ORDERED: ALBUT/IPRATROP 3MG/0.5MG NEB 3 ML VIAL NEB STA (02:10)
[2019-07-03] MEDS ORDERED: SODIUM CHLORIDE 0.9% 500 ML IV SCH (02:15)
[2019-07-03] MEDS ORDERED: METOPROLOL TARTRATE 1 MG/ML VIAL IV STA (02:26)
--- NOTE | 2019-07-03 02:28 | Emergency Department Note ---
ED Visit Note Physician Evaluation Note: I have personally evaluated and examined this patient. I agree with assessment and plan of Roberto Meza PA-C. Moderate hypotension, febrile as outpatient and tachycardic. Initially HTN and plan to get RVR a bit under control, however repeat BP reveals hypotension thus lopressor stopped. Fluids resus begun. Septic work up initiated. Suspect lung source, thus broad spectrum abx. Crackles all lung malloy and requiring NC O2 currently. Patient pleasant and in no significant distress fortunately. Hospitalist in to evaluate further. Nicholas Miller MD
[2019-07-03 02:45] LABS: Basophils # (auto) 0.01 K/uL (0-0.2); Basophils % (auto) 0.1 %; Eosinophils # (auto) 0.09 K/uL (0-0.5); Eosinophils % (auto) 0.5 %; Hematocrit (blood only) 39.4 % (37-47); Hemoglobin 13.3 g/dL (12.0-16.0); Immature Granulocytes # (auto) 0.04 K/uL (0.00-0.02); Immature Granulocytes % (auto) 0.2 %; Lymphocytes # (auto) 1.97 K/uL (1.2-3.4); Lymphocytes % (auto) 10.9 %; Mean Corpuscular Hemoglobin 34.8 pg (25-34); Mean Corpuscular Hgb Conc 33.8 g/dL (32-36); Mean Corpuscular Volume 103.1 fL (80-100); Monocytes # (auto) 1.47 K/uL (0.11-0.59); Monocytes % (auto) 8.1 %; Neutrophils # (auto) 14.55 K/uL (1.4-6.5); Neutrophils % (auto) 80.2 %; Platelet Count 180 K/uL (130-400); RDW Coefficient of Variation 15.2 % (11.5-14.5); RDW Standard Deviation 57.2 fL (36.4-46.3); Red Blood Count 3.82 M/uL (4.2-5.4); White Blood Count 18.13 K/uL (4.8-10.8)
[2019-07-03 02:47] LABS: Base Excess VBG 7.6 mEq/L; HCO3 VBG 34 mmol/L; Oxygen Saturation VBG 64.1 %; PCO2 VBG 52 mmHg (38-50); PO2 VBG 32 mmHg; pH VBG 7.43 (7.36-7.41)
[2019-07-03] MEDS ORDERED: PIPERACILLIN/TAZOBACTAM 4.5 GM/120 ML BAG IV ONE (02:47)
[2019-07-03] MEDS ORDERED: PIPERACILL/TAZOBAC CONSULT ACTIVE PRN ×2 (02:47→05:36)
[2019-07-03 02:55] LABS: INR 2.1 (0.9-1.1); Partial Thromboplastin Ratio 1.4; Partial Thromboplastin Time 38.8 Seconds (21.0-31.0); Prothrombin Time 20.5 Seconds (9.0-12.0)
--- NOTE | 2019-07-03 03:00 | Emergency Department Note ---
History of Present Illness General Chief complaint: Shortness of Breath/Dyspnea Stated complaint: ILLNESS/SHORT OF BREATH Time Seen by Provider: 07/03/19 02:01 History of Present Illness This is a 78-year-old female with a complex past medical history that presents to the emergency department via ambulance from her living facility with complaints of "shortness of breath ". History was derived from nursing notes from EMS as well as from the patient. She provides much of the history but does appear to be slightly delayed in her responses but there is no apparent deficit. Per nursing staff, at her facility she felt warm, had a temperature of 100.3 F orally, and then had some trouble breathing and has been having a productive cough of green sputum. She was given a DuoNeb before coming here with some m inimal improvement. Patient denies any chest pain. She feels short of breath at this time. She uses 3 L of oxygen intermittently as needed. Home Medications Home Medications Medication Instructions Recorded Confirmed Type Fleet Enema 118 ml NV DAILY PRN 11/01/18 07/03/19 History Glucosamine Chondroitin PLUS 1 tab PO PC 11/01/18 07/03/19 History acetaminophen [Tylenol] 650 mg PO Q4 PRN 11/01/18 07/03/19 History allopurinol 200 mg PO QAM 11/01/18 07/03/19 History bisacodyl [Dulcolax (bisacodyl)] 10 mg NV DAILY PRN 11/01/18 07/03/19 History colchicine 0.6 mg PO QAM 11/01/18 07/03/19 History docusate sodium [Colace] 100 mg PO AMHS 11/01/18 07/03/19 History duloxetine 60 mg PO QAM 11/01/18 07/03/19 History ipratropium-albuterol 3 ml INHALATION DIRECTED PRN 11/01/18 07/03/19 History levothyroxine 75 mcg PO DAILYBB 11/01/18 07/03/19 History magnesium hydroxide [Milk of 30 ml PO DAILY PRN 11/01/18 07/03/19 History Magnesia] meclizine 25 mg PO TID PRN 11/01/18 07/03/19 History melatonin 10 mg PO HS 11/01/18 07/03/19 History montelukast 10 mg PO PM 11/01/18 07/03/19 History ondansetron HCl [Zofran] 8 mg PO Q8 PRN 11/01/18 07/03/19 History polyethylene glycol 3350 [Miralax] 17 g PO Q OTHER DAY 11/01/18 07/03/19 History pregabalin [Lyrica] 50 mg PO TIDM 11/01/18 07/03/19 History sucralfate 1 g PO AMPM 11/01/18 07/03/19 History simethicone [Gas Relief] 180 mg PO DAILY PRN 12/27/18 07/03/19 History Incruse Ellipta 1 inh INHALATION QAM 01/11/19 07/03/19 History guaifenesin [Amy-Tussin] 200 mg PO Q4H PRN 01/11/19 07/03/19 History sennosides [senna] 8.6 mg PO BID 01/11/19 07/03/19 History dextrose 40 % oral gel 40 % PO DIRECTED gm 06/10/19 07/03/19 History glucagon HCl 1 mg solution for 1 mg SUBCUT DIRECTED PRN ea 06/10/19 07/03/19 History injection magnesium 250 mg (as magnesium 250 mg PO DAILY tab 06/10/19 07/03/19 History oxide) tablet bacitracin 500 unit/gram topical 1 appln TOP DAILY 06/11/19 07/03/19 History ointment benzonatate 100 mg capsule 200 mg PO .Every 8 hours PRN cap 06/11/19 07/03/19 History cholecalciferol (vitamin D3) 1,000 1,000 units PO DAILY 06/11/19 07/03/19 History unit capsule digoxin 125 mcg (0.125 mg) tablet 125 mcg PO .COMPLEX 06/11/19 07/03/19 History fentanyl 25 mcg/hr transdermal 1 patch TD Q72H 06/11/19 07/03/19 History patch furosemide 20 mg tablet 80 mg PO BID tab 06/11/19 07/03/19 History ranitidine 75 mg tablet 75 mg PO BID 06/11/19 07/03/19 History spironolactone 25 mg tablet 25 mg PO QAM tab 06/11/19 07/03/19 History trazodone 50 mg tablet 50 mg PO .COMPLEX 06/11/19 07/03/19 History Refresh Classic Eye 1 drp INSTIL TID 07/03/19 07/03/19 History betamethasone dipropionate 1 applic TOPICAL BID PRN 07/03/19 07/03/19 History fluticasone propion-salmeterol 1 inh INHALATION BID 07/03/19 07/03/19 History [Advair Diskus] metoprolol succinate [Toprol XL] 100 mg PO BID 07/03/19 07/03/19 History miconazole nitrate [Desenex] 1 applic TOPICAL TID 07/03/19 07/03/19 History warfarin [Coumadin] 2 mg PO QPM 07/03/19 07/03/19 History Allergies Allergy/AdvReac Type Severity Reaction Status Date / Time acetaminophen [From Percocet] Allergy Unknown Unknown Verified 07/03/19 02:18 meperidine [From Demerol] Allergy Unknown ON [place] Verified 07/03/19 02:18 [place] LIST morphine AdvReac Intermediate vomiting Verified 07/03/19 02:18 oxycodone AdvReac Intermediate vomit blood Verified 07/03/19 02:18 propoxyphene AdvReac Intermediate abd vomit Verified 07/03/19 02:18 blood tramadol AdvReac Intermediate vomiting Verified 07/03/19 02:18 Bactrim AdvReac Mild GI SYMPTOMS Verified 03/06/18 21:06 codeine AdvReac Mild vomiting Verified 07/03/19 02:18 olmesartan AdvReac Mild GI SYMPTOMS Verified 07/03/19 02:18 Sulfa (Sulfonamide AdvReac Mild GI SYMPTOMS Verified 07/03/19 02:18 Antibiotics) sulfamethoxazole AdvReac Mild GI SYMPTOMS Verified 01/11/19 08:53 trimethoprim AdvReac Mild GI SYMPTOMS Verified 01/11/19 08:53 carisoprodol AdvReac Unknown GI SYMPTOMS Verified 01/11/19 08:53 Past Med/Surg History Medical History Anxiety (Chronic) Hyperuricemia (Chronic) CKD (chronic kidney disease), stage III (Chronic) GERD (gastroesophageal reflux disease) (Chronic) DJD (degenerative joint disease), multiple sites (Chronic) Arthritis (Chronic) Asthma (Chronic) Diastolic CHF (Chronic) On 02/12/16 22:20 Ellie Herson wrote "per echo 09/30/15- EF 60-65%, mod LVH, mod MR, mod TR, dilated RV" DM type 2 (diabetes mellitus, type 2) (Chronic) Hypertension (Chronic) Hypothyroidism (Chronic) Chronic pain (Chronic) Stenosis of right carotid artery (Chronic) History of pulmonary embolism (Chronic) Chronic gastritis (Chronic) Chronic back pain (Chronic) Generalized anxiety disorder (Chronic) Obesity (BMI 30-39.9) (Chronic) DM2 (diabetes mellitus, type 2) (Chronic) HTN (hypertension) (Chronic) Surgical History History of hernia repair (Chronic) Status post cholecystectomy (Chronic) "Dr. Beavers [facility] 12/27/17" Family History Other Diabetes Hypertension Social History Preferred Language: Spanish Communication Ability: Effective Pharmacy Aide Required: No Beliefs That Will Affect Care: None marital status: / Current Living Situation: Longterm Current Living Situation Comment: [facility] Other Information That Helps Us Care for You: No Feels Safe at Home: Yes Safety Concerns: Feels Safe At This Time Smoking Status: Never smoker Second Hand Exposure: No ; Hx Alcohol Use: No Hx Substance Use: No Review of Systems A total of 10 systems reviewed and were otherwise negative Physical Exam Vital Signs Vital Signs - 24 hr 07/03/19 01:54 07/03/19 02:03 07/03/19 02:12 Temperature 36.9 C Temperature Source Oral Sepsis Recent Fever Within 48 Hours Yes Sepsis New/Unexplained Change in Mental Status No Sepsis Action Taken by Nursing MD Previously Notified Oxygen Flow Rate - Titration 3 Pulse Oximetry Post Tiitration 94 Pulse Rate 106 H 106 H Pulse Rate [Right Finger] Pulse Rate from SpO2 Sensor 104 H Respiratory Rate 24 14 Respiratory Effort / Characteristics Spontaneous Short of Breath Respiratory Depth Normal Blood Pressure 177/162 H 177/162 H Blood Pressure Mean 167 167 Blood Pressure Position Sitting Pulse Oximetry 88 L 95 93 Oxygen Delivery Method Room Air Nasal Cannula Nasal Cannula Oxygen Flow Rate 3 3 07/03/19 02:15 07/03/19 02:30 07/03/19 02:32 Temperature Temperature Source Sepsis Recent Fever Within 48 Hours Sepsis New/Unexplained Change in Mental Status Sepsis Action Taken by Nursing Oxygen Flow Rate - Titration Pulse Oximetry Post Tiitration Pulse Rate 99 H 108 H 102 H Pulse Rate [Right Finger] Pulse Rate from SpO2 Sensor 94 H 110 H 98 H Respiratory Rate 24 19 19 Respiratory Effort / Characteristics Respiratory Depth Blood Pressure 89/49 L Blood Pressure Mean 62 Blood Pressure Position Pulse Oximetry 95 94 99 Oxygen Delivery Method Nasal Cannula Nasal Cannula Nebulizer Oxygen Flow Rate 3 3 07/03/19 02:35 07/03/19 02:36 07/03/19 02:45 Temperature Temperature Source Sepsis Recent Fever Within 48 Hours Sepsis New/Unexplained Change in Mental Status Sepsis Action Taken by Nursing Oxygen Flow Rate - Titration Pulse Oximetry Post Tiitration Pulse Rate 101 H 92 H Pulse Rate [Right Finger] 106 H Pulse Rate from SpO2 Sensor 100 H 95 H Respiratory Rate 24 22 23 Respiratory Effort / Characteristics Non-Labored Spontaneous Respiratory Depth Blood Pressure 92/63 L Blood Pressure Mean 72 Blood Pressure Position Pulse Oximetry 94 97 93 Oxygen Delivery Method Nasal Cannula Nebulizer Nasal Cannula Oxygen Flow Rate 3 3 07/03/19 03:00 07/03/19 03:15 07/03/19 03:30 Temperature Temperature Source Sepsis Recent Fever Within 48 Hours Sepsis New/Unexplained Change in Mental Status Sepsis Action Taken by Nursing Oxygen Flow Rate - Titration Pulse Oximetry Post Tiitration Pulse Rate 95 H 95 H 83 Pulse Rate [Right Finger] Pulse Rate from SpO2 Sensor 97 H 94 H 95 H Respiratory Rate 21 21 21 Respiratory Effort / Characteristics Respiratory Depth Blood Pressure 79/52 L 79/51 L Blood Pressure Mean 61 60 Blood Pressure Position Pulse Oximetry 94 95 95 Oxygen Delivery Method Nasal Cannula Nasal Cannula Oxygen Flow Rate 3 3 07/03/19 03:40 07/03/19 03:45 07/03/19 03:50 Temperature Temperature Source Sepsis Recent Fever Within 48 Hours Sepsis New/Unexplained Change in Mental Status Sepsis Action Taken by Nursing Oxygen Flow Rate - Titration Pulse Oximetry Post Tiitration Pulse Rate 77 82 98 H Pulse Rate [Right Finger] Pulse Rate from SpO2 Sensor 87 Respiratory Rate 22 20 22 Respiratory Effort / Characteristics Respiratory Depth Blood Pressure 108/84 Blood Pressure Mean 92 Blood Pressure Position Pulse Oximetry 91 Oxygen Delivery Method Nasal Cannula Oxygen Flow Rate 3 07/03/19 04:00 07/03/19 04:01 07/03/19 04:10 Temperature Temperature Source Sepsis Recent Fever Within 48 Hours Sepsis New/Unexplained Change in Mental Status Sepsis Action Taken by Nursing Oxygen Flow Rate - Titration Pulse Oximetry Post Tiitration Pulse Rate 90 93 H 89 Pulse Rate [Right Finger] Pulse Rate from SpO2 Sensor Respiratory Rate 20 21 23 Respiratory Effort / Characteristics Respiratory Depth Blood Pressure 53/22 L 80/60 L Blood Pressure Mean 32 66 Blood Pressure Position Pulse Oximetry Oxygen Delivery Method Oxygen Flow Rate 07/03/19 04:15 Temperature Temperature Source Sepsis Recent Fever Within 48 Hours Sepsis New/Unexplained Change in Mental Status Sepsis Action Taken by Nursing Oxygen Flow Rate - Titration Pulse Oximetry Post Tiitration Pulse Rate 88 Pulse Rate [Right Finger] Pulse Rate from SpO2 Sensor 88 Respiratory Rate 24 Respiratory Effort / Characteristics Respiratory Depth Blood Pressure 85/50 L Blood Pressure Mean 61 Blood Pressure Position Pulse Oximetry Oxygen Delivery Method Oxygen Flow Rate VITAL SIGNS - Vital signs and nursing notes were reviewed. Stable and afebrile. GENERAL -78-year-old female appearing her stated age who is in no acute distress but is audibly experiencing crackles with respirations. Communicates well with provider and answers questions appropriately. SKIN - Without rashes. No meningeal or petechial rash. HEAD - NC/AT. EYES - Sclera anicteric. EARS - No deformities of external structures noted on gross examination bilaterally. NOSE - Midline and without cyanosis. No epistaxis or purulent drainage noted. MOUTH/OROPHARYNX - Without perioral cyanosis. NECK - Neck with FROM. No nuchal rigidity. LUNGS - Chest wall symmetric without accessory muscle use, intercostals retractions, or central cyanosis. Diffuse, symmetric inspiratory and expiratory crackles. CARDIAC - RRR with S1/S2. No murmur, rubs, or gallops appreciated. EXTREMITIES - No clubbing or peripheral cyanosis. +5/5 strength noted in UE/LE bilaterally. NEUROLOGIC - Cranial nerves II through XII grossly intact. PSYCH - A&O, and cooperates fully with examiner. Pt is very pleasant and interacts well with examiner. Course Administered Medications Sodium Chloride (Nss 1000ml) 1,000 mls @ 100 mls/hr IV .Q10H ORACIO Stop: 08/02/19 05:35 Last Admin: 07/03/19 05:58 Dose: 100 mls/hr Documented by: [id number] Discontinued Medications Albuterol (Duoneb) 3 ml NEB NOW STA Stop: 07/03/19 02:11 Last Admin: 07/03/19 02:34 Dose: 3 ml Documented by: [id number] Sodium Chloride (Nss) 500 mls @ 125 mls/hr IV .Q4H ORACIO Stop: 08/02/19 02:14 Last Infusion: 07/03/19 03:35 Dose: 0 mls/hr Documented by: [id number] Admin: 07/03/19 02:52 Dose: 999 mls/hr Documented by: [id number] Piperacillin Sod/Tazobactam Sod (Zosyn) 4.5 gm in 120 mls @ 240 mls/hr IV NOW ONE Stop: 07/03/19 03:16 Last Infusion: 07/03/19 03:35 Dose: 0 mls/hr Documented by: [id number] Admin: 07/03/19 03:03 Dose: 240 mls/hr Documented by: [id number] Sodium Chloride (Nss 1000ml) 500 mls @ 999 mls/hr IV .Q31M ONE Stop: 07/03/19 04:23 Last Infusion: 07/03/19 03:58 Dose: 0 mls/hr Documented by: [id number] Admin: 07/03/19 03:30 Dose: 999 mls/hr Documented by: [id number] Metoprolol Tartrate (Lopressor) 5 mg IV NOW STA Stop: 07/03/19 02:27 Last Admin: 07/03/19 03:07 Dose: Not Given Documented by: [id number] Medical Decision Making Laboratory Data Result diagrams: 07/03/19 02:33 07/03/19 02:33 Lab Results 07/03/19 07/03/19 07/03/19 Range/Units 02:33 02:33 02:33 WBC 18.13 H (4.8-10.8) K/uL RBC 3.82 L (4.2-5.4) M/uL Hgb 13.3 (12.0-16.0) g/dL Hct 39.4 (37-47) % MCV 103.1 H (80-100) fL MCH 34.8 H (25-34) pg MCHC 33.8 (32-36) g/dL RDW Std Deviation 57.2 H (36.4-46.3) fL RDW Coeff of Kenneth 15.2 H (11.5-14.5) % Plt Count 180 (130-400) K/uL MPV 11.0 H (7.4-10.4) fL Immature Gran % (Auto) 0.2 % Neut % (Auto) 80.2 % Lymph % (Auto) 10.9 % [place] % (Auto) 8.1 % Eos % (Auto) 0.5 % Baso % (Auto) 0.1 % Immature Gran # (Auto) 0.04 H (0.00-0.02) K/uL Neut # (Auto) 14.55 H (1.4-6.5) K/uL Lymph # (Auto) 1.97 (1.2-3.4) K/uL [place] # (Auto) 1.47 H (0.11-0.59) K/uL Eos # (Auto) 0.09 (0-0.5) K/uL Baso # (Auto) 0.01 (0-0.2) K/uL PT (9.0-12.0) Seconds INR (0.9-1.1) APTT (21.0-31.0) Seconds PTT Ratio VBG pH 7.43 H (7.36-7.41) VBG pCO2 52 H (38-50) mmHg VBG pO2 32 mmHg VBG HCO3 34 mmol/L VBG O2 Saturation 64.1 % VBG Base Excess 7.6 mEq/L Sodium (136-145) mmol/L Potassium (3.5-5.1) mmol/L Chloride (98-107) mmol/L Carbon Dioxide (21-32) mmol/L Anion Gap (3-11) BUN (7-18) mg/dl Creatinine (0.6-1.2) mg/dl Est Cr Clr Drug Dosing ml/min Est GFR ( Amer) Est GFR (Non-Af Amer) BUN/Creatinine Ratio (10-20) Glucose (70-99) mg/dl Lactate (0.4-2.0) mmol/L Calcium (8.5-10.1) mg/dl Magnesium (1.8-2.4) mg/dl Total Bilirubin (0.2-1) mg/dl AST (15-37) U/L ALT (12-78) U/L Alkaline Phosphatase (45-117) U/L Troponin I (0-0.045) ng/ml NT-Pro-B Natriuret Pep (0-1800) pg/ml Total Protein (6.4-8.2) gm/dl Albumin (3.4-5.0) gm/dl Globulin (2.5-4.0) gm/dl Albumin/Globulin Ratio (0.9-2) Procalcitonin < 0.05 (0-0.5) ng/ml TSH (0.300-4.500) uIu/ml Influenza Type A Ag (Neg) Influenza Type B Ag (Neg) 07/03/19 07/03/19 07/03/19 Range/Units 02:33 02:33 02:33 WBC (4.8-10.8) K/uL RBC (4.2-5.4) M/uL Hgb (12.0-16.0) g/dL Hct (37-47) % MCV (80-100) fL MCH (25-34) pg MCHC (32-36) g/dL RDW Std Deviation (36.4-46.3) fL RDW Coeff of Kenneth (11.5-14.5) % Plt Count (130-400) K/uL MPV (7.4-10.4) fL Immature Gran % (Auto) % Neut % (Auto) % Lymph % (Auto) % [place] % (Auto) % Eos % (Auto) % Baso % (Auto) % Immature Gran # (Auto) (0.00-0.02) K/uL Neut # (Auto) (1.4-6.5) K/uL Lymph # (Auto) (1.2-3.4) K/uL [place] # (Auto) (0.11-0.59) K/uL Eos # (Auto) (0-0.5) K/uL Baso # (Auto) (0-0.2) K/uL PT 20.5 H (9.0-12.0) Seconds INR 2.1 H (0.9-1.1) APTT 38.8 H (21.0-31.0) Seconds PTT Ratio 1.4 VBG pH (7.36-7.41) VBG pCO2 (38-50) mmHg VBG pO2 mmHg VBG HCO3 mmol/L VBG O2 Saturation % VBG Base Excess mEq/L Sodium 137 (136-145) mmol/L Potassium 3.8 (3.5-5.1) mmol/L Chloride 97 L (98-107) mmol/L Carbon Dioxide 32 (21-32) mmol/L Anion Gap 8.0 (3-11) BUN 39 H (7-18) mg/dl Creatinine 1.34 H (0.6-1.2) mg/dl Est Cr Clr Drug Dosing 46.8 ml/min Est GFR ( Amer) 44.2 Est GFR (Non-Af Amer) 38.1 BUN/Creatinine Ratio 29.4 H (10-20) Glucose 133 H (70-99) mg/dl Lactate 1.3 (0.4-2.0) mmol/L Calcium 9.0 (8.5-10.1) mg/dl Magnesium 2.0 (1.8-2.4) mg/dl Total Bilirubin 0.9 (0.2-1) mg/dl AST 11 L (15-37) U/L ALT 11 L (12-78) U/L Alkaline Phosphatase 155 H (45-117) U/L Troponin I < 0.015 (0-0.045) ng/ml NT-Pro-B Natriuret Pep 2269 H (0-1800) pg/ml Total Protein 6.8 (6.4-8.2) gm/dl Albumin 3.3 L (3.4-5.0) gm/dl Globulin 3.5 (2.5-4.0) gm/dl Albumin/Globulin Ratio 0.9 (0.9-2) Procalcitonin (0-0.5) ng/ml TSH 1.450 (0.300-4.500) uIu/ml Influenza Type A Ag (Neg) Influenza Type B Ag (Neg) 07/03/19 Range/Units 02:45 WBC (4.8-10.8) K/uL RBC (4.2-5.4) M/uL Hgb (12.0-16.0) g/dL Hct (37-47) % MCV (80-100) fL MCH (25-34) pg MCHC (32-36) g/dL RDW Std Deviation (36.4-46.3) fL RDW Coeff of Kenneth (11.5-14.5) % Plt Count (130-400) K/uL MPV (7.4-10.4) fL Immature Gran % (Auto) % Neut % (Auto) % Lymph % (Auto) % [place] % (Auto) % Eos % (Auto) % Baso % (Auto) % Immature Gran # (Auto) (0.00-0.02) K/uL Neut # (Auto) (1.4-6.5) K/uL Lymph # (Auto) (1.2-3.4) K/uL [place] # (Auto) (0.11-0.59) K/uL Eos # (Auto) (0-0.5) K/uL Baso # (Auto) (0-0.2) K/uL PT (9.0-12.0) Seconds INR (0.9-1.1) APTT (21.0-31.0) Seconds PTT Ratio VBG pH (7.36-7.41) VBG pCO2 (38-50) mmHg VBG pO2 mmHg VBG HCO3 mmol/L VBG O2 Saturation % VBG Base Excess mEq/L Sodium (136-145) mmol/L Potassium (3.5-5.1) mmol/L Chloride (98-107) mmol/L Carbon Dioxide (21-32) mmol/L Anion Gap (3-11) BUN (7-18) mg/dl Creatinine (0.6-1.2) mg/dl Est Cr Clr Drug Dosing ml/min Est GFR ( Amer) Est GFR (Non-Af Amer) BUN/Creatinine Ratio (10-20) Glucose (70-99) mg/dl Lactate (0.4-2.0) mmol/L Calcium (8.5-10.1) mg/dl Magnesium (1.8-2.4) mg/dl Total Bilirubin (0.2-1) mg/dl AST (15-37) U/L ALT (12-78) U/L Alkaline Phosphatase (45-117) U/L Troponin I (0-0.045) ng/ml NT-Pro-B Natriuret Pep (0-1800) pg/ml Total Protein (6.4-8.2) gm/dl Albumin (3.4-5.0) gm/dl Globulin (2.5-4.0) gm/dl Albumin/Globulin Ratio (0.9-2) Procalcitonin (0-0.5) ng/ml TSH (0.300-4.500) uIu/ml Influenza Type A Ag Neg for Influ A (Neg) Influenza Type B Ag Neg for Influ B (Neg) Imaging Data My Impression: Cardiomegaly and atherosclerotic calcification of the aorta. The pulmonary vasculature is congested. Chronic interstitial thickening. There is bibasilar scarring/atelectasis. There is suggestion of right lower lobe infiltrate. No pneumothorax visualized. MDM Narrative Patient was seen and evaluated as above in room B9. Review was performed of nursing notes and vital signs. After obtaining a thorough history and physical examination the above work up was performed. She presents to us today via ambulance with shortness of breath. There is a productive cough of green sputum. She has an extensive past medical history. The concern is for CHF, pneumonia as well as possible developing sepsis. IV access was established and labs were drawn. There is leukocytosis of 18.13. No significant anemia. INR 2 .1. VBG pH 7.43 with a CO2 of 52. Metabolic panel reveals creatinine of 1.34. BUN 39. Troponin negative. BNP 2269. Pro-Erwin negative. TSH normal. Influenza negative. Patient's EKG per my interpretation reveals atrial fibrillation with RVR at a rate of 104 bpm. There is no evidence of GA on this examination. QTc 386. This was compared to January 13, 2019 and atrial fibrillation is not new. Fluids were started but carefully as there was concern for possible overload given the amount of crackles on auscultation. Chest x-ray per myself and the attending interpretation reveals cardiomegaly, fluid overload with possible right lower lobe infiltrate. With the patient's leukocytosis, productive cough I do believe antibiotics are warranted. Zosyn was added. Again, caution was exercised with the amount of fluid provided to the patient intravenously secondary to suspected volume overload. She has a documented history of CHF. I do believe that further evaluation and management in the inpatient setting is warranted. Case discussed with Dr. Greenfield of [facility]. Please refer to further documentation regarding her stay. Case was discussed with the attending physician. I attest that I have personally reviewed the patient medication list. I attest that I have reviewed the patient's blood pressure and it was found to be elevated on arrival and then became hypotensive and was given fluids. She responded well to this. I held the Lopressor as this was initially ordered given the patient's hypertensive state but after recheck of the vitals and she was actually found to be hypotensive this was held. Heart rate at this time is in an acceptable range. GCS: 15 In the evaluation and treatment of this patient the following differential diagnoses were entertained: Respiratory failure, pneumonia, GA, PE, pericarditis, costochondritis, hemothorax, pneumothorax, among others. Impression & Plan Pneumonia, Atrial fibrillation, Hypoxia Discharge Plan Visit Data *Final* Discharge Date/Time: 07/03/19 04:51 Chief Complaint: Shortness of Breath/Dyspnea Stated Complaint: ILLNESS/SHORT OF BREATH ED Provider: Nicholas Miller ED Midlevel Provider: Roberto Meza Discharge Problem: Pneumonia, Atrial fibrillation, Hypoxia Patient Disposition: Admitted As Inpatient Condition: Good Discharge Instructions Interventions: ED Discharge Assessment Last Done: 07/03/19 04:51
[2019-07-03 03:01] LABS: Alanine Aminotransferase 11 U/L (12-78); Albumin Level 3.3 gm/dl (3.4-5.0); Aspartate Aminotransferase 11 U/L (15-37); BUN Creatinine Ratio 29.4 (10-20); Blood Urea Nitrogen 39 mg/dl (7-18); Carbon Dioxide 32 mmol/L (21-32); Chloride 97 mmol/L (98-107); Creatinine Clr Calc Pharmacy 46.8 ml/min; Est GFR (African American) 44.2; Est GFR (Non-African American) 38.1; Glucose 133 mg/dl (70-99); Potassium 3.8 mmol/L (3.5-5.1); Sodium 137 mmol/L (136-145)
[2019-07-03 03:12] LABS: Albumin Globulin Ratio 0.9 (0.9-2); Alkaline Phosphatase 155 U/L (45-117); Bilirubin,Total 0.9 mg/dl (0.2-1); Globulin 3.5 gm/dl (2.5-4.0); NT Pro B Type Natriuretic Pept 2269 pg/ml (0-1800); Total Protein 6.8 gm/dl (6.4-8.2); Troponin I < 0.015 ng/ml (0-0.045)
[2019-07-03] MEDS ORDERED: SODIUM CHLORIDE 0.9% 1000ML 500 ML IV ONE (03:53)
[2019-07-03] MEDS ORDERED: SODIUM CHLORIDE 0.9% 1000ML 1,000 ML IV SCH (04:45)
[2019-07-03] MEDS ORDERED: guaiFENesin SUGAR FREE 100 MG/5 ML UDC PO PRN (05:36)
[2019-07-03] MEDS ORDERED: ALBUT/IPRATROP 3MG/0.5MG NEB 3 ML VIAL INH PRN (05:36)
[2019-07-03] MEDS ORDERED: BENZONATATE 100 MG CAPSULE PO PRN (05:36)
[2019-07-03] MEDS ORDERED: METOPROLOL TARTRATE 1 MG/ML VIAL IV PRN (05:36)
[2019-07-03] MEDS ORDERED: MAGNESIUM HYDROXIDE SUSP 30 ML UDC PO PRN (05:36)
[2019-07-03] MEDS ORDERED: MECLIZINE HCL 25 MG TAB PO PRN (05:36)
[2019-07-03] MEDS ORDERED: VANCOMYCIN CONSULT ACTIVE PRN (05:36)
[2019-07-03] MEDS ORDERED: NON-FORMULARY MEDICATION (Acetaminophen [Tylenol] 650 MG) PO PRN (05:36)
[2019-07-03] MEDS ORDERED: GLUCOSE 40% GEL 15 GM TUBE PO SCH (05:36)
[2019-07-03] MEDS ORDERED: NITROGLYCERIN SL 0.4 MG/TAB TAB SL PRN (05:36)
[2019-07-03] MEDS ORDERED: GLUCAGON HCL 1 MG SQ PRN (05:36)
[2019-07-03] MEDS ORDERED: bisacodyL 10 MG SUPP PR PRN (05:36)
[2019-07-03] MEDS ORDERED: SOD PHOSPHATE/SOD BIPHOSPHATE ENEMA 132 ML BTL PR PRN (05:36)
[2019-07-03] MEDS ORDERED: ONDANSETRON INJ 2 MG/ML 2 ML VIAL IV PRN (05:36)
[2019-07-03] MEDS: SODIUM CHLORIDE 0.9% 1000ML 1,000 ML IV SCH ×2 (05:58→20:10)
--- NOTE | 2019-07-03 06:52 | XRay Report ---
XR chest 1V portable CLINICAL HISTORY: Dyspnea. COMPARISON STUDY: Chest CT January 11, 2019. Chest radiograph January 12, 2019. FINDINGS: Cardiomegaly is again noted. There is no evidence for pulmonary edema. There is no pneumoth orax or pleural effusion. Patient is rotated. Left basilar opacity favors atelectasis. There is mild right lower lung opacity. Severe degenerative changes of both shoulders are noted. IMPRESSION: 1. Right basilar opacity which may reflect pneumonia or atelectasis. Radiographic follow-up to ensure resolution is recommended. 2. Cardiomegaly without evidence for pulmonary edema. Electronically signed by: Refugio Del Cid M.D. 07/03/2019 6:51 AM
[2019-07-03] MEDS ORDERED: VANCOMYCIN HCL 2,750 MG in SODIUM CHLORIDE 0.9% 500 ML IV ONE (07:00)
--- NOTE | 2019-07-03 07:04 | History and Physical Report ---
DATE OF ADMISSION: 07/03/2019 CHIEF COMPLAINT: Shortness of breath and cough. HISTORY OF PRESENT ILLNESS: This is a 78-year-old female with past medical history significant for type 2 diabetes, hypothyroidism, hyperlipidemia, COPD, asthma, history of hemothorax, atrial fibrillation, chronic diastolic CHF, hypertension, stenosis of right carotid artery, mitral insufficiency, moderate tricuspid insufficiency, history of left ventricular hypertrophy, history of CVA, obesity, chronic gastritis, osteoarthritis of both the knees, hiatal hernia, chronic pain syndrome, persistent headaches, history of PE, generalized anxiety disorder, abnormality of gait, history of MRSA infection, history of insomnia, who is a [facility] resident. Was brought in because of shortness of breath and cough and fever. The patient says she is also bringing up greenish yellow phlegm and she is also complaining of burning micturition since last 3 days. She was febrile at the shelter, but here in the ER she is afebrile. On initial presentation, systolic blood pressure in 70s. After fluid bolus, blood pressure is coming up. She is also getting treated for generalized dermatitis by dermatology with a steroid cream. She says dermatitis is much improved. She is resting comfortably, somewhat sleepy but alert and oriented. Answers appropriately. Complains of mild headache. No blurred visions, no earache, no runny nose, no sore throat, no chest pain, no nausea, no vomiting, no abdominal pain. Appetite is okay. Denies dysphagia. Normal bowel movements. No blood in the stools or black stools. No hematuria. She says the swelling in the legs is same, not worsened. She ambulates with help of walker. Appetite is okay. ALLERGIES: CODEINE, DEMEROL, MORPHINE, OXYCODONE, PROPOXYPHENE, SULFAMETHOXAZOLE, ULTRAM. PAST MEDICAL HISTORY: As mentioned above. PAST SURGICAL HISTORY: Colonoscopy, laparoscopic cholecystectomy, removal of cyst from the arm, laparoscopic bilateral inguinal hernia surgery, EGDs. MEDICATIONS: The patient is on Tylenol 650 mg p.o. q. 4 hours p.r.n., allopurinol 200 mg p.o. a.m., Bacitracin ointment topically daily, benzonatate 200 mg p.o. t.i.d. p.r.n., betamethasone topically b.i.d. p.r.n., Dulcolax 10 mg daily p.r.n., vitamin D 1000 units p.o. daily, colchicine 0.6 mg p.o. a.m., digoxin 125 mcg p.o. daily, Colace 100 mg p.o. a.m. and at bedtime, Cymbalta 60 mg in the a.m., fentanyl 25 mg q. 72 hours, Fleet enema p.r.n., Advair Diskus one inhalation b.i.d., Lasix 80 mg p.o. b.i.d., glucagon p.r.n., glucosamine chondroitin plus 1 tablet p.o. daily, guaifenesin 200 mg p.o. q. 4 hours p.r.n., Incruse Ellipta 1 inhalation daily, DuoNebs p.r.n., levothyroxine 75 mcg p.o. daily, magnesium oxide 250 mg p.o. daily, milk of magnesia p.r.n., meclizine 25 mg p.o. t.i.d. p.r.n., melatonin 10 mg p.o. at bedtime, Toprol-XL 100 mg p.o. b.i.d., Nasonex 1 application topically t.i.d., montelukast 10 mg p.o. p.m., Zofran 8 mg p.o. every 8 hours p.r.n., MiraLax 17 grams p.o. every other day, Lyrica 50 mg p.o. t.i.d., Zantac 75 mg p.o. b.i.d., senna b.i.d., simethicone daily p.r.n., spironolactone 25 mg p.o. daily a.m., sucralfate 1 gram p.o. a.m. and p.m., trazodone 75 mg p.o. at bedtime, Coumadin 2 mg p.o. q.p.m. FAMILY HISTORY: Significant for father had diabetes, hypertension, obesity. SOCIAL HISTORY: Currently living at [facility]. No smoking, no alcohol. REVIEW OF SYSTEMS: As per HPI. Rest of review of systems negative. PHYSICAL EXAMINATION: GENERAL: The patient is obese, not in acute distress. VITAL SIGNS: Temperature 36.9, pulse 98, respiratory rate 22, blood pressure 108/84, oxygen 95% on 3 liters. HEENT: No pallor, no icterus. Pupils equal, round, reactive to light. NECK: No JVD, no neck masses, no carotid bruits. CARDIOVASCULAR: S1, S2 heard, regular rate and rhythm. No murmur, no gallop. RESPIRATORY SYSTEM: Normal AP diameter. No accessory muscle use. Mild bibasilar crackles. No wheezing. ABDOMEN: Soft, bowel sounds present. Mild tenderness in the right upper quadrant region, which patient says is chronic. No distention. Rash seen in the umbilical region. EXTREMITIES: Bilateral lower extremity pedal edema present. Mild erythema seen. SKIN: Generalized papular rash seen mostly on the back and the extremities. Rash in the abdominal folds, in the groin and in the umbilical region. LABORATORY DATA: WBC 18.1, hemoglobin 13.3, hematocrit 39.4, platelets 180. PT 20.5, INR 2.1, APTT 38.8. Venous blood gases, pH of 7.4, pCO2 of 52, pO2 of 32, bicarbonate 34. Sodium 137, potassium 3.8, chloride 97, bicarbonate 32, BUN 39, creatinine 1.3, serum glucose 133. Lactate 1.3, calcium 9, magnesium 2, total bilirubin 0.9, AST 11, ALT 11, alkaline phosphatase 155. Troponin I less than 0.015. BNP 2269. Procalcitonin less than 0.05. TSH 1.4. Influenza A and B negative. IMAGING DATA: Chest x-ray, possible right lower lobe infiltrate. EKG: AFib with rapid ventricular response at rate of 104. Nonspecific T-wave abnormality seen. ASSESSMENT AND PLAN: This is a 78-year-old female who presents with shortness of breath, cough, and hypotension. 1. Possible sepsis with tachycardia, hypotension, elevated leukocytosis, possible right lower lobe pneumonia. The patient also is complaining of shortness of breath, cough, and fever at home. Currently she is afebrile. She has hx of pneumonia in the past with a left pneumohemothorax. We will follow the CT of the chest. Empirically placed on IV Zosyn, IV vancomycin, and p.o. doxycycline. Follow the blood cultures. Lactic acid is normal. Blood pressure is improved with the fluids. We will continue IV normal saline at 100 mL per hour. Hx of MRSA.Closely monitor in the tele floor. 2. Possible urinary tract infection. The patient has burning micturition. Will follow the urine cultures. Antibiotics as above. 3. History of pulmonary embolism, on Coumadin. INR is therapeutic. We will follow the PT/INR. 4. History of atrial fibrillation, currently rate under control. We will hold Toprol-XL for hypotension. We will place on IV Lopressor p.r.n. On Coumadin, INR is therapeutic. Follow the PT/INR. 5. History of diastolic congestive heart failure, holding spironolactone and Lasix. Currently patient is hypotensive. The patient is getting fluids. Monitor closely for any volume overload.Restart diuretics when able. 6. History of diabetes. The patient is currently not on any medications. We will follow HbA1c levels. Placed on diabetic diet. 7. Hypertension, holding diuretics, holding Toprol-XL. The patient is hypotensive. We will monitor. Restart when the blood pressure comes up. 8. History of hemothorax. The previous left hemopneumothorax on the CAT scan done in 2018. We will order the CAT scan. We will follow the report. 9. History of chronic obstructive pulmonary disease and asthma and nocturnal hypoxia requiring 2 liters of oxygen in the night and also as needed. Continue her home nebs and inhalers. We will monitor closely. 10. Possible acute kidney injury on chronic kidney disease stage III. Baseline creatinine around 1, presently creatinine 1.3. Getting fluids. Follow the labs. 11. Gastroesophageal reflux disease, on PPI, on Carafate, H2 gabriela. 12. Chronic pain, on fentanyl, Lyrica, Tylenol p.r.n. 13. History of anxiety, on trazodone and duloxetine. 14. History of hyperuricemia, on allopurinol and colchicine. 15. Morbid obesity, needs counseling. 16. Deep venous thrombosis prophylaxis, on Coumadin. INR therapeutic. Code status. Full code as per my discussion with the patient. DISPOSITION: Admit to tele floor. Expect to discharge home and follow with her family doctor. Level 1 full code. MTDD
[2019-07-03] MEDS: FLUTICASONE/SALMETEROL (ADVAIR) 500/50 INH 14 PUFF INH SCH ×2 (07:35→20:11)
[2019-07-03] MEDS: PIPERACILLIN/TAZOBACTAM 4.5 GM in DEXTROSE 5% 100 ML IV SCH ×2 (07:35→16:52)
[2019-07-03] MEDS: POLYETHYLENE (MIRALAX) 17 GM PACK PO SCH (07:35)
[2019-07-03] MEDS: BACITRACIN OINT 15 GM TUBE TOP SCH (07:35)
[2019-07-03] MEDS: LEVOTHYROXINE SODIUM 75 MCG TABLET PO SCH (07:36)
[2019-07-03] MEDS: DOXYCYCLINE HYCLATE 100 MG CAP PO SCH ×2 (07:36→20:16)
[2019-07-03] MEDS: CHECK FENTANYL PATCH PLACEMENT SCH ×2 (07:36→16:53)
[2019-07-03] MEDS: allopurinoL 100 MG TAB PO SCH (07:37)
[2019-07-03] MEDS: DULOXETINE HCL 60 MG CAP PO SCH (07:37)
[2019-07-03] MEDS: CHOLECALCIFEROL 1,000 UNITS TAB PO SCH (07:38)
[2019-07-03] MEDS: DOCUSATE SODIUM 100 MG CAP PO SCH ×2 (07:38→20:11)
[2019-07-03] MEDS: TRAZODONE HCL 50 MG TAB PO SCH ×2 (07:39→20:14)
[2019-07-03] MEDS: SENNA 8.6 MG TAB PO SCH ×2 (07:39→20:15)
[2019-07-03] MEDS: MICONAZOLE NITRATE POWDER 43 GM TOP SCH ×3 (07:40→20:13)
[2019-07-03] MEDS: COLCHICINE 0.6 MG TAB PO SCH (07:40)
[2019-07-03] MEDS: fentaNYL 25 MCG/HR TDSY TD SCH (08:59)
[2019-07-03] MEDS: PREGABALIN 50 MG CAP PO SCH ×3 (08:59→17:24)
[2019-07-03] MEDS ORDERED: SIMETHICONE 80 MG CHEW PO PRN (09:00)
[2019-07-03] MEDS: MAGNESIUM OXIDE 400 MG TAB PO SCH (09:01)
[2019-07-03] MEDS: SUCRALFATE 1 GM TAB PO SCH ×2 (09:01→20:18)
[2019-07-03 09:09] LABS: Estimated Average Glucose 123 mg/dl; Hemoglobin A1C 5.9 % (4.5-5.6)
--- NOTE | 2019-07-03 09:31 | Communication Note ---
Date of Service: July 03, 2019 Patient was seen and evaluated this morning. Agree with Admitting Physicians recommendations. I discussed with patient about the plan of care. She specified that she does not want to be intubated or put on ventilator but wants CPR, cardiac resuscitation, inotropes/pressors if needed. She stated that she is not keen on NIV (BIPAP/CPAP) but can have that discussion again if NIV is required. She stated her sister Ms Kate Pinto will be her decision maker if she is not able to make one. Patient's RN was at bedside and witnessed this. I also discussed all these with sister on the phone and answered all her questions.
[2019-07-03 09:35] LABS: Appearance Urine Clear (Clear); Bacteria Urine Automated 1+ (Negative); Bilirubin Urine Negative (Negative); Blood Urine Trace (Negative); Color Urine Yellow; Epithelial Cell Urine Auto >30 /lpf (0-5); Glucose Urine UA Negative (Negative); Ketones Urine Negative (Negative); Leukocyte Esterase Urine Trace (Negative); Nitrite Urine Positive (Negative); Protein Urine Negative (Negative); RBC Urine Automated 0-4 /hpf (0-4); Specific Gravity Urine 1.011 (1.000-1.030); Urobilinogen Urine Negative (Negative); pH Urine 7.5 (4.5-7.5)
[2019-07-03 09:47] LABS: Mucus Urine Present (None Prsent); Renal Epithelial Cells Urine 0-5 /lpf (0-5)
[2019-07-03 10:09] LABS: Base Excess ABG 1.1 mEq/L (-9-1.8); HCO3 ABG 25 mmol/L (19-24); Oxygen Saturation ABG 95.2 % (90-95); PCO2 ABG 37 mmHg (35-46); PO2 ABG 73 mm/Hg (80-95); pH ABG 7.45 (7.35-7.45)
[2019-07-03 10:12] LABS: Allen Test Pos (Pos)
--- NOTE | 2019-07-03 11:25 | Pharmacy Report ---
Pharmacy Abx Initial Consult - Date of Service July 03, 2019 - Pharmacy Dosing Scope Date of Consult: 07/03 Consultation requested by: Dr. Greenfield Pharmacy is consulted to initiate vancomycin/zosyn IV/PO dosing therapy, order appropriate labs and adjust drug dose/frequency. - Subjective The patient is a 78 year old F admitted on 07/03/19 04:16. - Objective Height: 5 ft 6 in Weight: 117.3 kg Vital Signs (Past 12hrs): Vital Signs Temp Pulse Pulse Pulse Resp BP BP 07/03/19 10:52 37.7 C H 91 H 24 108/67 07/03/19 07:03 36.9 C 85 22 150/80 H 07/03/19 06:00 88 07/03/19 05:05 37.0 C 88 22 117/74 07/03/19 04:40 92 H 21 07/03/19 04:30 84 24 86/50 L 07/03/19 04:20 90 21 07/03/19 04:15 88 24 85/50 L 07/03/19 04:10 89 23 07/03/19 04:01 93 H 21 80/60 L 07/03/19 04:00 90 20 53/22 L 07/03/19 03:50 98 H 22 07/03/19 03:45 82 20 108/84 07/03/19 03:40 77 22 07/03/19 03:30 83 21 79/51 L 07/03/19 03:15 95 H 21 07/03/19 03:00 95 H 21 79/52 L 07/03/19 02:45 92 H 23 07/03/19 02:36 101 H 22 92/63 L 07/03/19 02:35 106 H 24 07/03/19 02:32 102 H 19 89/49 L 07/03/19 02:30 108 H 19 07/03/19 02:15 99 H 24 07/03/19 02:12 07/03/19 02:03 106 H 14 177/162 H 07/03/19 01:54 36.9 C 106 H 24 177/162 H Pulse Ox 07/03/19 10:52 97 07/03/19 07:03 98 07/03/19 06:00 07/03/19 05:05 95 07/03/19 04:40 88 L 07/03/19 04:30 07/03/19 04:20 97 07/03/19 04:15 07/03/19 04:10 07/03/19 04:01 07/03/19 04:00 07/03/19 03:50 07/03/19 03:45 07/03/19 03:40 91 07/03/19 03:30 95 07/03/19 03:15 95 07/03/19 03:00 94 07/03/19 02:45 93 07/03/19 02:36 97 07/03/19 02:35 94 07/03/19 02:32 99 07/03/19 02:30 94 07/03/19 02:15 95 07/03/19 02:12 93 07/03/19 02:03 95 07/03/19 01:54 88 L Lab Results (24hrs): Laboratory Tests (24 Hours) 07/03/19 07/03/19 07/03/19 02:33 02:33 02:33 WBC 18.13 H Neut # (Auto) 14.55 H Creatinine 1.34 H Est Cr Clr Drug Dosing 46.8 Procalcitonin < 0.05 Micro Results: 07/03/19 09:31 Urine Culture - Pending Urine,Clean Catch 07/03/19 02:33 Aerobic Blood Culture - Pending Blood Anaerobic Blood Culture - Pending 07/03/19 02:33 Aerobic Blood Culture - Pending Blood Anaerobic Blood Culture - Pending - Assessment & Plan Assessment 78 year old F with a extensive past medical history presented from [facility] for shortness of breath, cough, fever. WBC elevated, tmax 37.7, chest xray with "Right basilar opacity which may reflect pneumonia or atelectasis". Patient being empirically treated for pneumonia with vanco,zosyn, doxycycline. Plan Vancomycin IV * Estimated PK Parameters: Vdf 0.6, Lavelle 0.043 hr-1, t1/2 16 hr * Loading dose: 2750 mg (23 mg/kg) * Maintenance dose: 1250 mg IV (11 mg/kg) every 18 hours * Goal trough level 15-20] mcg/mL * Trough not ordered, anticipate renal function may improve, will re-eval tomorrow * A less than traditional dose and/or extended dosing interval has/have been selected due to likelihood of drug accumulation in obese patient. Piperacillin/tazobactam * 4.5 g bolus administered over 30 minutes, then 4.5 g IV extended infusion every 8 hours for CrCl greater than 20 mL/min * Aggressive dosing selected due to BMI 35 or more. Pharmacy will continue to follow and will adjust dose/frequency as necessary. Thank you.
[2019-07-03] MEDS: WARFARIN SOD 2 MG TAB PO SCH (20:12)
[2019-07-03] MEDS: MONTELUKAST SODIUM 10 MG TABLET PO SCH (20:15)
--- NOTE | 2019-07-03 22:45 | CT Scan Report ---
CT chest wo con CLINICAL HISTORY: pneumonia. History of pneumohemothorax. COMPARISON STUDY: 01/11/2019, chest x-ray dated 07/03/2019 CT DOSE: 1395.21 mGy.cm TECHNIQUE: CT of the thorax was performed from the thoracic inlet to the lung bases. Images are revi ewed in the axial, sagittal, and coronal planes. IV contrast was not administered for this examinatio n. A dose lowering technique was utilized adhering to the principles of ALARA. FINDINGS: Thyroid: Imaged portions of the thyroid gland are normal in appearance. Thoracic aorta: The thoracic aorta is normal in course and caliber, noting standard 3 vessel arch kalli jane. Heart: The heart is normal in size and configuration, without pericardial effusion. Lungs and pleural spaces: There is a small right pleural effusion. There are right lower lobe airspac e opacity suspicious for pneumonia. There is an area of atelectasis/consolidation at the left lung ba se. There is no pneumothorax. Mediastinum: There are mildly enlarged mediastinal lymph nodes, likely reactive. Mónica: There are mildly enlarged right hilar lymph nodes. Axilla: There is no evidence of pathologic axillary lymphadenopathy Upper abdomen: Partially visualized upper abdominal viscera is within normal limits. Skeletal structures: No destructive lesions are visualized. Severe arthritic changes are present with in the shoulders. IMPRESSION: 1. Right lower lobe airspace opacities suspicious for pneumonia. There is an associated small right p leural effusion. Imaging subsequently treatment is recommended in follow-up to document resolution 2. Mild mediastinal and right hilar lymphadenopathy, possibly reactive. This should be reevaluated on follow-up studies.. Electronically signed by: Zain An M.D. 07/03/2019 10:43 PM
[2019-07-03] MEDS ORDERED: VANCOMYCIN HCL 1,250 MG in SODIUM CHLORIDE 0.9% 250 ML IV SCH (23:00)
[2019-07-04] MEDS: CHECK FENTANYL PATCH PLACEMENT SCH ×4 (00:15→23:33)
[2019-07-04] MEDS: PIPERACILLIN/TAZOBACTAM 4.5 GM in DEXTROSE 5% 100 ML IV SCH ×4 (00:30→23:33)
[2019-07-04] MEDS: SODIUM CHLORIDE 0.9% 1000ML 1,000 ML IV SCH ×2 (03:20→08:09)
[2019-07-04 05:50] LABS: Basophils # (auto) 0.01 K/uL (0-0.2); Basophils % (auto) 0.1 %; Eosinophils # (auto) 0.27 K/uL (0-0.5); Eosinophils % (auto) 2.3 %; Hematocrit (blood only) 37.6 % (37-47); Hemoglobin 12.4 g/dL (12.0-16.0); Immature Granulocytes # (auto) 0.04 K/uL (0.00-0.02); Immature Granulocytes % (auto) 0.3 %; Lymphocytes # (auto) 1.97 K/uL (1.2-3.4); Lymphocytes % (auto) 17.1 %; Mean Corpuscular Hemoglobin 33.9 pg (25-34); Mean Corpuscular Volume 102.7 fL (80-100); Mean Platelet Volume 11.6 fL (7.4-10.4); Monocytes # (auto) 0.96 K/uL (0.11-0.59); Monocytes % (auto) 8.3 %; Neutrophils % (auto) 71.9 %; Platelet Count 166 K/uL (130-400); RDW Coefficient of Variation 15.3 % (11.5-14.5); RDW Standard Deviation 57.5 fL (36.4-46.3); Red Blood Count 3.66 M/uL (4.2-5.4); White Blood Count 11.55 K/uL (4.8-10.8)
[2019-07-04] MEDS: LEVOTHYROXINE SODIUM 75 MCG TABLET PO SCH (05:53)
[2019-07-04 05:58] LABS: INR 2.6 (0.9-1.1); Prothrombin Time 24.5 Seconds (9.0-12.0)
[2019-07-04 06:21] LABS: BUN Creatinine Ratio 26.1 (10-20); Calcium 8.7 mg/dl (8.5-10.1); Creatinine Clr Calc Pharmacy 54.2 ml/min; Est GFR (African American) 53.2; Est GFR (Non-African American) 45.9; Potassium 3.6 mmol/L (3.5-5.1)
[2019-07-04] MEDS: MICONAZOLE NITRATE POWDER 43 GM TOP SCH ×3 (08:08→21:23)
[2019-07-04] MEDS: PREGABALIN 50 MG CAP PO SCH ×3 (08:09→17:09)
[2019-07-04] MEDS: BACITRACIN OINT 15 GM TUBE TOP SCH (08:09)
[2019-07-04] MEDS: FLUTICASONE/SALMETEROL (ADVAIR) 500/50 INH 14 PUFF INH SCH ×2 (08:10→21:17)
[2019-07-04] MEDS: DOCUSATE SODIUM 100 MG CAP PO SCH ×2 (08:11→21:19)
[2019-07-04] MEDS: SENNA 8.6 MG TAB PO SCH ×2 (08:12→21:22)
[2019-07-04] MEDS: COLCHICINE 0.6 MG TAB PO SCH (08:13)
[2019-07-04] MEDS: DOXYCYCLINE HYCLATE 100 MG CAP PO SCH (08:13)
[2019-07-04] MEDS: DULOXETINE HCL 60 MG CAP PO SCH (08:14)
[2019-07-04] MEDS: TRAZODONE HCL 50 MG TAB PO SCH ×2 (08:14→21:24)
[2019-07-04] MEDS: allopurinoL 100 MG TAB PO SCH (08:15)
[2019-07-04] MEDS: CHOLECALCIFEROL 1,000 UNITS TAB PO SCH (08:15)
[2019-07-04] MEDS: MAGNESIUM OXIDE 400 MG TAB PO SCH (10:20)
[2019-07-04] MEDS: TIOTROPIUM BROMIDE 5 PUFF/90 MCG INH INH SCH (10:20)
[2019-07-04] MEDS: SUCRALFATE 1 GM TAB PO SCH ×2 (10:20→21:25)
--- NOTE | 2019-07-04 11:26 | Hospitalist Progress Note ---
Date of Service July 04, 2019 Assessment & Plan (1) Pneumonia: Cough, shortness of breath and fevers Concern for possible aspiration Sepsis due to pneumonia Patient is clinically improving. More alert today CT chest showed Right lower lobe opacities. WBC improving from 18 yesterday to 11 today Sputum culture pending. Has h/o MRSA pneumonia Blood cultures negative so far. Urine cultures growing GNRs but patient denied any urinary symptoms Will continue only vancomycin and zosyn for now Aspiration precautions (2) Acute kidney injury superimposed on CKD: Resolving Cr was 1.3 on admission from 1.06 four months ago. Currently 1.16 Diuretics still on hold Continue monitoring (3) Asthma: Continue nebs. Continue intranasal oxygen (4) Diastolic CHF: Diuretics on hold due to ROSEY on CKD Systolic BP has been running in 90s-110s Keep holding all antihypertensives. Continue digoxin (5) DM type 2 (diabetes mellitus, type 2): Not on any antidiabetic Last A1c was 5.9 (6) Hypothyroidism: Continue levothyroxine (7) Hypertension: SBP has been running in 90s -110s. MAP has been >70s Continue holding all antihypertensives (8) Atrial fibrillation: Currently rate controlled Metoprolol is on hold but may be resumed as needed Continue digoxin Continue telemetry for now Continue warfarin for anticoagulation (9) Anxiety: Controlled Continue home medications (10) DJD (degenerative joint disease), multiple sites: Chronic Continue home meds (11) DVT prophylaxis: Has history of PE, atrial fibrillation Already on warfarin INR is therapeutic Subjective Patient reports feeling better. Still has cough, productive with occasional blood tinge. No shortness of breath No more fevers, chills, nausea or vomiting Patient is more awake this morning Denied any dysuria, abdominal pain, flank pain, urethral discharge prior to admission Reports chronic 'leg soreness'. Ambulates with walker. Has been able to ambulate to restroom. Reports she has had rash for a long time and follows with derm Review of Systems Review of Systems: All systems reviewed and unremarkable except for mentioned above. Physical Exam Physical Exam: General: Obese, awake, no acute distress and not ill appearing Eyes: PERRL, conjunctivae normal, not pale, anicteric sclerae, EOM intact bilaterally ENMT: External ear and nose normal, oropharynx normal Neck: Normal visual inspection, no tracheal deviation Respiratory: Normal respiratory effort, no respiratory distress, Nasal cannula in situ, +bibasilar coarse crackles Cardiovascular: Pulse is irregularly irregular. S1 S2. Chest (Breasts): Chest: Erythematous rash on chest Gastrointestinal (Abdomen): Abdomen is soft, non-tender to palpation, no guarding, normal bowel sounds Musculoskeletal: Bilateral leg edema, mild tenderness on palpation of both feet, no incongruity in bone Genitourinary: No CVA tenderness Skin: Patches of erythematous rash all over body, in skin folds and upper extremity Neurologic: Alert and oriented x 3, No focal weakness, sensation grossly intact Psychiatric: Alert and oriented x 3, euthymic affect, no depressed affect Results & Data Vital Signs (Past 12 Hours) Vital Signs Temp Pulse Pulse Pulse Pulse Resp BP 07/04/19 11:09 36.8 C 103 H 22 103/69 07/04/19 06:59 36.8 C 84 20 95/65 L 07/04/19 06:24 92 H 07/04/19 03:44 36.6 C 91 H 91 H 20 121/76 Pulse Ox 07/04/19 11:09 94 07/04/19 06:59 100 07/04/19 06:24 07/04/19 03:44 97 Laboratory Results Laboratory Results - last 24 hr 07/03/19 07/04/19 07/04/19 20:22 05:33 05:33 WBC 11.55 H RBC 3.66 L Hgb 12.4 Hct 37.6 MCV 102.7 H MCH 33.9 MCHC 33.0 RDW Std Deviation 57.5 H RDW Coeff of Kenneth 15.3 H Plt Count 166 MPV 11.6 H Immature Gran % (Auto) 0.3 Neut % (Auto) 71.9 Lymph % (Auto) 17.1 Parke % (Auto) 8.3 Eos % (Auto) 2.3 Baso % (Auto) 0.1 Immature Gran # (Auto) 0.04 H Neut # (Auto) 8.30 H Lymph # (Auto) 1.97 Parke # (Auto) 0.96 H Eos # (Auto) 0.27 Baso # (Auto) 0.01 PT 24.5 H INR 2.6 H Sodium Potassium Chloride Carbon Dioxide Anion Gap BUN Creatinine Est Cr Clr Drug Dosing Est GFR ( Amer) Est GFR (Non-Af Amer) BUN/Creatinine Ratio Glucose POC Glucose 112 H Calcium Magnesium 07/04/19 07/04/19 07/04/19 05:33 07:04 11:07 WBC RBC Hgb Hct MCV MCH MCHC RDW Std Deviation RDW Coeff of Kenneth Plt Count MPV Immature Gran % (Auto) Neut % (Auto) Lymph % (Auto) Parke % (Auto) Eos % (Auto) Baso % (Auto) Immature Gran # (Auto) Neut # (Auto) Lymph # (Auto) Parke # (Auto) Eos # (Auto) Baso # (Auto) PT INR Sodium 138 Potassium 3.6 Chloride 103 Carbon Dioxide 27 Anion Gap 8.0 BUN 30 H Creatinine 1.15 Est Cr Clr Drug Dosing 54.2 Est GFR ( Amer) 53.2 Est GFR (Non-Af Amer) 45.9 BUN/Creatinine Ratio 26.1 H Glucose 107 H POC Glucose 107 H 106 H Calcium 8.7 Magnesium 2.0
[2019-07-04] MEDS: ACETAMINOPHEN 325 MG TAB PO PRN (12:54)
[2019-07-04] MEDS: ARTIFICIAL TEARS OP SCH ×2 (12:55→21:19)
[2019-07-04] MEDS: BETAMETHASONE DIP AUG 0.05% OINT 15 GM TUBE TOP PRN (12:55)
[2019-07-04] MEDS: DIGOXIN 0.125 MG TAB PO SCH (15:51)
[2019-07-04] MEDS: VANCOMYCIN HCL 1,250 MG in SODIUM CHLORIDE 0.9% 250 ML IV SCH (16:09)
[2019-07-04] MEDS: WARFARIN SOD 2 MG TAB PO SCH (21:23)
[2019-07-04] MEDS: MONTELUKAST SODIUM 10 MG TABLET PO SCH (21:26)
[2019-07-05] MEDS ORDERED: METOPROLOL TARTRATE 1 MG/ML VIAL IV STA (01:04)
[2019-07-05] MEDS: LEVOTHYROXINE SODIUM 75 MCG TABLET PO SCH (05:32)
[2019-07-05] MEDS ORDERED: VANCOMYCIN TROUGH ONE (06:30)
[2019-07-05 07:24] LABS: INR 2.9 (0.9-1.1); Prothrombin Time 27.6 Seconds (9.0-12.0)
[2019-07-05 07:46] LABS: Est GFR (African American) 59.3; Est GFR (Non-African American) 51.2
[2019-07-05] MEDS: VANCOMYCIN HCL 1,250 MG in SODIUM CHLORIDE 0.9% 250 ML IV SCH ×2 (07:56→23:02)
[2019-07-05] MEDS: CHECK FENTANYL PATCH PLACEMENT SCH ×2 (07:56→16:45)
--- NOTE | 2019-07-05 09:05 | Hospitalist Progress Note ---
Date of Service July 05, 2019 Assessment & Plan (1) Pneumonia: Sepsis due to pneumonia Clinical improving CT chest showed Right lower lobe opacities. WBC improving from 18 yesterday to 11 today Sputum culture pending. Has h/o MRSA pneumonia Blood cultures negative so far. Urine cultures growing GNRs but patient denied any urinary symptoms Will continue only vancomycin and zosyn for now Aspiration precautions (2) Acute kidney injury superimposed on CKD: Resolved Cr was 1.05 today Diuretics still on hold Continue monitoring (3) Intertrigo: Continue miconazole topical Rash in skin folds likely gabby intertrigo Erythema on both woodall. She also reported recently completed treatment for cellulitis with Augmentin just before this hospitalization. (4) Asthma: Continue nebs. Continue intranasal oxygen (5) Diastolic CHF: Diuretics on hold due to ROSEY on CKD Systolic BP has improved. Will continue to monitor and resume antihypertensives by tomorow if BP remains stable Continue digoxin (6) DM type 2 (diabetes mellitus, type 2): Not on any antidiabetic Last A1c was 5.9 (7) Hypothyroidism: Continue levothyroxine TSH was 1.45 on admission (8) Hypertension: BP has improved over the past 12hrs If remains stable, will resume BP meds as needed by tomorrow (9) Atrial fibrillation: Currently rate controlled Metoprolol is on hold but may be resumed as needed Continue digoxin Continue telemetry for now Continue warfarin for anticoagulation (10) Anxiety: Controlled Continue home medications (11) DJD (degenerative joint disease), multiple sites: Chronic Continue home meds (12) DVT prophylaxis: Has history of PE, atrial fibrillation Already on warfarin INR is therapeutic Review of Systems Constitutional: + insomnia; no fever, no chills and no anorexia Eyes: no problem reported Ear, Nose, Mouth, Throat: no problem reported Respiratory: + cough; no dyspnea, no pain on inspiration, no pain with cough and no wheezing Cardiovascular: no chest pain and no palpitations Gastrointestinal: no problem reported Genitourinary: no problem reported Musculoskeletal: Pain on both woodall Integumentary: + rash Neurologic: no problem reported Psychiatric: no problem reported Physical Exam Physical Exam: General: Obese, no acute distress and not ill appearing Eyes: PERRL, conjunctivae normal, not pale, anicteric sclerae, EOM intact bilaterally ENMT: External ear and nose normal, oropharynx normal Neck: Normal visual inspection, no tracheal deviation, no swelling noted Respiratory: Normal respiratory effort, no respiratory distress, +has bibasilar crackles Cardiovascular: Pulse is irregularly irregular.S1 S2 Gastrointestinal (Abdomen): Abdomen is soft, non-tender to palpation, no guarding, no palpable hepatosplenomegaly, normal bowel sounds Musculoskeletal: Erythema on both woodall with features of chronic stasis dermatitis skin changes, mild tenderness, no edema or differential warmth Skin: Erythematous rash under skin fold, some tender Neurologic: Alert and oriented x 3, No focal weakness, sensation grossly intact Results & Data Vital Signs (Past 12 Hours) Vital Signs Temp Pulse Pulse Pulse Resp BP BP 07/05/19 06:50 36.7 C 103 H 18 117/72 07/05/19 05:00 07/05/19 03:45 36.6 C 79 18 102/61 07/05/19 01:13 125 H 141/82 H 07/04/19 23:00 36.9 C 114 H 18 142/86 H Pulse Ox Pulse Ox 07/05/19 06:50 99 07/05/19 05:00 94 07/05/19 03:45 97 07/05/19 01:13 07/04/19 23:00 98 Laboratory Results Laboratory Results - last 24 hr 07/04/19 07/04/19 07/04/19 11:07 16:42 20:09 PT INR Creatinine Est Cr Clr Drug Dosing Est GFR ( Amer) Est GFR (Non-Af Amer) POC Glucose 106 H 140 H 110 H Vancomycin Trough 07/05/19 07/05/19 07/05/19 06:24 06:24 06:24 PT 27.6 H INR 2.9 H Creatinine 1.05 Est Cr Clr Drug Dosing 60.0 Est GFR ( Amer) 59.3 Est GFR (Non-Af Amer) 51.2 POC Glucose Vancomycin Trough 17.3 07/05/19 07:21 PT INR Creatinine Est Cr Clr Drug Dosing Est GFR ( Amer) Est GFR (Non-Af Amer) POC Glucose 120 H Vancomycin Trough
--- NOTE | 2019-07-05 09:06 | Pharmacy Report ---
Pharmacy Abx Dose Short Note - Date of Service July 05, 2019 - Assessment & Plan Assessment 78 year old F receiving Vancomycin 1250mg IV Q16H for treatment of possible aspiration pna with history of MRSA. Day # 3 of antimicrobial therapy. Renal fxn back at baseline, Scr 1.05 today. Urine cx growing e. coli, however pt reports no urinary symptoms. Recommend changing to oral agents when patient is able to tolerate; Augmentin 875mg q12H + Doxycycline 100mg q12H. Laboratory Tests 07/05/19 06:24 Vancomycin Trough 17.3 Plan Vancomycin * Trough level of 17.3 mcg/mL is therapeutic, however this level is not reflective of steady state, was merely to asses for accumulation in setting of BMI of 41. * Continue dose of 1250 mg IV every 16 hours * Goal trough level : 15 to 20 mcg/mL * Trough level ordered for: 07/06/19 before 1500 dose if patient is still on vancomycin therapy. Pharmacy will continue to follow and will adjust dose/frequency as necessary. Thank you.
[2019-07-05] MEDS: FLUTICASONE/SALMETEROL (ADVAIR) 500/50 INH 14 PUFF INH SCH ×2 (09:40→21:24)
[2019-07-05] MEDS: DULOXETINE HCL 60 MG CAP PO SCH (09:43)
[2019-07-05] MEDS: MICONAZOLE NITRATE POWDER 43 GM TOP SCH ×3 (09:43→21:23)
[2019-07-05] MEDS: COLCHICINE 0.6 MG TAB PO SCH (09:43)
[2019-07-05] MEDS: TRAZODONE HCL 50 MG TAB PO SCH ×2 (09:43→21:25)
[2019-07-05] MEDS: POLYETHYLENE (MIRALAX) 17 GM PACK PO SCH (09:44)
[2019-07-05] MEDS: SENNA 8.6 MG TAB PO SCH ×2 (09:44→22:10)
[2019-07-05] MEDS: CHOLECALCIFEROL 1,000 UNITS TAB PO SCH (09:45)
[2019-07-05] MEDS: MAGNESIUM OXIDE 400 MG TAB PO SCH (09:46)
[2019-07-05] MEDS: allopurinoL 100 MG TAB PO SCH (09:46)
[2019-07-05] MEDS: PIPERACILLIN/TAZOBACTAM 4.5 GM in DEXTROSE 5% 100 ML IV SCH ×2 (09:47→17:15)
[2019-07-05] MEDS: ARTIFICIAL TEARS OP SCH ×3 (09:48→22:11)
[2019-07-05] MEDS: BACITRACIN OINT 15 GM TUBE TOP SCH (09:49)
[2019-07-05] MEDS: PREGABALIN 50 MG CAP PO SCH ×3 (10:03→16:45)
[2019-07-05] MEDS: TIOTROPIUM BROMIDE 5 PUFF/90 MCG INH INH SCH (10:12)
[2019-07-05] MEDS: DOCUSATE SODIUM 100 MG CAP PO SCH ×2 (11:41→22:10)
[2019-07-05] MEDS: SUCRALFATE 1 GM TAB PO SCH ×2 (11:41→21:24)
[2019-07-05] MEDS: MONTELUKAST SODIUM 10 MG TABLET PO SCH (21:24)
[2019-07-05] MEDS: WARFARIN SOD 2 MG TAB PO SCH (22:11)
[2019-07-06] MEDS: PIPERACILLIN/TAZOBACTAM 4.5 GM in DEXTROSE 5% 100 ML IV SCH ×4 (00:14→23:44)
[2019-07-06] MEDS: CHECK FENTANYL PATCH PLACEMENT SCH ×4 (00:15→23:47)
[2019-07-06] MEDS: ACETAMINOPHEN 325 MG TAB PO PRN ×2 (02:24→16:20)
[2019-07-06] MEDS ORDERED: LORazepam 0.5 MG TAB PO STA (02:26)
[2019-07-06] MEDS ORDERED: LORazepam 0.5 MG TAB ONE (02:31)
[2019-07-06] MEDS ORDERED: METOPROLOL SUCC 50MG EXT REL TAB PO ONE (02:45)
[2019-07-06] MEDS: LEVOTHYROXINE SODIUM 75 MCG TABLET PO SCH (05:12)
[2019-07-06 07:05] LABS: Hematocrit (blood only) 34.1 % (37-47); Hemoglobin 11.5 g/dL (12.0-16.0); Mean Corpuscular Hemoglobin 34.1 pg (25-34); Mean Corpuscular Hgb Conc 33.7 g/dL (32-36); Mean Corpuscular Volume 101.2 fL (80-100); Mean Platelet Volume 11.4 fL (7.4-10.4); Platelet Count 164 K/uL (130-400); RDW Coefficient of Variation 15.1 % (11.5-14.5); RDW Standard Deviation 55.6 fL (36.4-46.3); Red Blood Count 3.37 M/uL (4.2-5.4); White Blood Count 6.59 K/uL (4.8-10.8)
[2019-07-06 07:21] LABS: INR 2.6 (0.9-1.1)
[2019-07-06 07:42] LABS: Est GFR (African American) 61.4
[2019-07-06] MEDS: fentaNYL 25 MCG/HR TDSY TD SCH (07:43)
[2019-07-06] MEDS: FLUTICASONE/SALMETEROL (ADVAIR) 500/50 INH 14 PUFF INH SCH ×2 (07:48→20:18)
[2019-07-06] MEDS: SENNA 8.6 MG TAB PO SCH ×2 (07:49→20:20)
[2019-07-06] MEDS: DULOXETINE HCL 60 MG CAP PO SCH (07:50)
[2019-07-06] MEDS: DOCUSATE SODIUM 100 MG CAP PO SCH ×2 (07:50→20:20)
[2019-07-06] MEDS: allopurinoL 100 MG TAB PO SCH (07:50)
[2019-07-06] MEDS: COLCHICINE 0.6 MG TAB PO SCH (07:51)
[2019-07-06] MEDS: TIOTROPIUM BROMIDE 5 PUFF/90 MCG INH INH SCH (07:51)
[2019-07-06] MEDS: CHOLECALCIFEROL 1,000 UNITS TAB PO SCH (07:51)
[2019-07-06] MEDS: MICONAZOLE NITRATE POWDER 43 GM TOP SCH ×3 (07:52→20:12)
[2019-07-06] MEDS: BACITRACIN OINT 15 GM TUBE TOP SCH (07:52)
[2019-07-06] MEDS: TRAZODONE HCL 50 MG TAB PO SCH ×2 (07:53→20:21)
[2019-07-06] MEDS: PREGABALIN 50 MG CAP PO SCH ×3 (07:53→16:20)
[2019-07-06] MEDS: ARTIFICIAL TEARS OP SCH ×3 (07:54→20:19)
[2019-07-06] MEDS: MAGNESIUM OXIDE 400 MG TAB PO SCH (10:12)
[2019-07-06] MEDS: SUCRALFATE 1 GM TAB PO SCH ×2 (10:12→21:16)
--- NOTE | 2019-07-06 10:18 | Hospitalist Progress Note ---
Date of Service July 06, 2019 Assessment & Plan (1) Pneumonia: Sepsis due to pneumonia likely due to aspiration Clinical improving CT chest showed Right lower lobe opacities. Leukocytosis resolved from 18 on admission to 6 today Sputum culture negative. Blood cultures negative so far. Urine cultures growing E.coli but patient denied any urinary symptoms Will discontinue vancomycin. Continue piperacillin/tazo. 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 (4) Asthma: Continue nebs. Continue intranasal oxygen (5) Diastolic CHF: BP has improved Metoprolol XL resumed overnight Continue digoxin Resume diuretics (6) DM type 2 (diabetes mellitus, type 2): Not on any antidiabetic Last A1c was 5.9 (7) Hypothyroidism: Continue levothyroxine TSH was 1.45 on admission (8) Hypertension: BP has been stable Metoprolol xl and diuretics resumed (9) Atrial fibrillation: Currently rate controlled Metoprolol xl resumed Continue digoxin Continue telemetry for now Continue warfarin for anticoagulation. INR still therapeutic (10) Anxiety: Controlled Continue home medications (11) DJD (degenerative joint disease), multiple sites: Chronic Continue home meds (12) DVT prophylaxis: Has history of PE, atrial fibrillation Already on warfarin INR is therapeutic Subjective Patient reports feeling better. Still coughing. No fevers, chills, nausea, vomiting No dysuria, frequency, urgency, abd pain Report leg pains are improving. Had rapid ventricular rate overnight and metoprolol xl home dose resumed about 2am Review of Systems Review of Systems: All systems reviewed and unremarkable except for mentioned above. Physical Exam Physical Exam: General: Obese, no acute distress and not ill appearing Eyes: PERRL, conjunctivae normal, not pale, anicteric sclerae, EOM intact bilaterally ENMT: External ear and nose normal, oropharynx normal Neck: Normal visual inspection, no tracheal deviation, no swelling noted Respiratory: Normal respiratory effort, no respiratory distress, +has bibasilar crackles Cardiovascular: Pulse is irregularly irregular. rate 110, S1 S2 Gastrointestinal (Abdomen): Abdomen is soft, non-tender to palpation, no guardi ng, no palpable hepatosplenomegaly, normal bowel sounds Musculoskeletal: Erythema on both woodall with features of chronic stasis dermatitis skin changes, mild tenderness, no edema or differential warmth Skin: Erythematous rash under skin folds on trunk, some tender Neurologic: Alert and oriented x 3, No focal weakness, sensation grossly intact Results & Data Vital Signs (Past 12 Hours) Vital Signs Temp Pulse Pulse Resp BP Pulse Ox 07/06/19 07:30 36.5 C 110 H 18 137/84 97 07/06/19 03:06 36.9 C 136 H 20 108/69 95 07/05/19 23:13 37.0 C 125 H 18 111/69 92 Laboratory Results Laboratory Results - last 24 hr 07/05/19 07/05/19 07/05/19 11:21 16:27 20:59 WBC RBC Hgb Hct MCV MCH MCHC RDW Std Deviation RDW Coeff of Kenneth Plt Count MPV PT INR Creatinine Est Cr Clr Drug Dosing Est GFR ( Amer) Est GFR (Non-Af Amer) POC Glucose 115 H 114 H 98 07/06/19 07/06/19 07/06/19 01:42 06:36 06:36 WBC RBC Hgb Hct MCV MCH MCHC RDW Std Deviation RDW Coeff of Kenneth Plt Count MPV PT 25.0 H INR 2.6 H Creatinine 1.02 Est Cr Clr Drug Dosing 62.0 Est GFR ( Amer) 61.4 Est GFR (Non-Af Amer) 53.0 POC Glucose 105 H 07/06/19 07/06/19 06:36 07:18 WBC 6.59 RBC 3.37 L Hgb 11.5 L Hct 34.1 L MCV 101.2 H MCH 34.1 H MCHC 33.7 RDW Std Deviation 55.6 H RDW Coeff of Kenneth 15.1 H Plt Count 164 MPV 11.4 H PT INR Creatinine Est Cr Clr Drug Dosing Est GFR ( Amer) Est GFR (Non-Af Amer) POC Glucose 97
[2019-07-06] MEDS ORDERED: VANCOMYCIN TROUGH ONE (14:30)
[2019-07-06] MEDS: FUROSEMIDE 40 MG TAB PO SCH (16:20)
[2019-07-06] MEDS: METOPROLOL SUCC 50MG EXT REL TAB PO SCH (18:41)
[2019-07-06] MEDS: BETAMETHASONE DIP AUG 0.05% OINT 15 GM TUBE TOP PRN (20:05)
[2019-07-06] MEDS: MONTELUKAST SODIUM 10 MG TABLET PO SCH (20:20)
[2019-07-06] MEDS: WARFARIN SOD 2 MG TAB PO SCH (21:17)
[2019-07-07] MEDS: LEVOTHYROXINE SODIUM 75 MCG TABLET PO SCH (05:50)
[2019-07-07 06:33] LABS: Hematocrit (blood only) 33.8 % (37-47); Hemoglobin 11.1 g/dL (12.0-16.0); Mean Corpuscular Hemoglobin 33.6 pg (25-34); Mean Corpuscular Hgb Conc 32.8 g/dL (32-36); Mean Corpuscular Volume 102.4 fL (80-100); Mean Platelet Volume 11.3 fL (7.4-10.4); Platelet Count 161 K/uL (130-400); RDW Coefficient of Variation 15.1 % (11.5-14.5); RDW Standard Deviation 55.9 fL (36.4-46.3); White Blood Count 5.32 K/uL (4.8-10.8)
[2019-07-07 06:42] LABS: INR 2.3 (0.9-1.1); Prothrombin Time 22.4 Seconds (9.0-12.0)
[2019-07-07 06:59] LABS: BUN Creatinine Ratio 17.9 (10-20); Calcium 8.8 mg/dl (8.5-10.1); Creatinine Clr Calc Pharmacy 56.4 ml/min; Est GFR (African American) 55.5; Est GFR (Non-African American) 47.9; Potassium 3.5 mmol/L (3.5-5.1)
[2019-07-07] MEDS ORDERED: SPIRONOLACTONE 25 MG TAB PO SCH (09:00)
--- NOTE | 2019-07-07 09:05 | Hospitalist Progress Note ---
Date of Service July 07, 2019 Assessment & Plan (1) Pneumonia: Sepsis due to pneumonia likely due to aspiration Clinical improving Patient concerned about bouts of cough. She reports robitussin helps. However, she has not been asking for it. Encouraged patient to ask for it as it is a prn medication Provided aspiration precautions education CT chest on admission showed Right lower lobe opacities. Leukocytosis resolved CXR today showed improvement from that on admission Sputum culture negative. Blood cultures negative so far. Urine cultures growing E.coli. Patient denied any urinary symptoms. 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 (4) Asthma: Continue nebs. Continue intranasal oxygen (5) Diastolic CHF: BP has improved Continue metoprolol XL and home diuretics Continue digoxin (6) DM type 2 (diabetes mellitus, type 2): Not on any antidiabetic Last A1c was 5.9 (7) Hypothyroidism: Continue levothyroxine TSH was 1.45 on admission (8) Hypertension: BP has been stable Metoprolol xl and diuretics resumed (9) Atrial fibrillation: Currently rate controlled Metoprolol xl resumed Continue digoxin Continue warfarin for anticoagulation. INR still therapeutic (10) Anxiety: Controlled Continue home medications (11) DJD (degenerative joint disease), multiple sites: Chronic Continue home meds (12) DVT prophylaxis: Has history of PE, atrial fibrillation Already on warfarin INR is therapeutic Subjective Patient still has bouts of cough. Denied any fevers or chills Oxygen requirement back to baseline Review of Systems Constitutional: no fever, no chills and no anorexia Eyes: no problem reported Respiratory: + cough and + chest congestion; no dyspnea, no pain on inspiration and no wheezing Cardiovascular: + edema (chronic); no chest pain, no dyspnea on exertion and no palpitations Gastrointestinal: no abdominal pain, no nausea, no change in bowel habits, no change in stools, no blood in stools and no melena Genitourinary: no dysuria, no urinary frequency, no hematuria and no flank pa in Musculoskeletal: Chronic bilateral leg pains (reported has been ongoing for years with occasional flares) Chronic leg swelling Integumentary: + rash; no skin ulcer Neurologic: no paralysis, no syncope, no headache(s) and no memory loss Physical Exam Physical Exam: General: Obese, no acute distress and not ill appearing Eyes: PERRL, conjunctivae normal, not pale, anicteric sclerae, EOM intact bilaterally ENMT: External ear and nose normal, oropharynx normal Neck: Normal visual inspection, no tracheal deviation, no swelling noted Respiratory: Normal respiratory effort, no respiratory distress, +has bibasilar crackles Cardiovascular: Pulse is irregularly irregular, S1 S2 Gastrointestinal (Abdomen): Abdomen is soft, non-tender to palpation, no guarding, no palpable hepatosplenomegaly, normal bowel sounds Musculoskeletal: Erythema on both woodall with features of chronic stasis dermatitis skin changes, mild tenderness on anterior woodall, trace leg edema, no differential warmth Skin: Erythematous rash under skin folds on trunk, non tender Neurologic: Alert and oriented x 3, No focal weakness, sensation grossly intact Results & Data Vital Signs (Past 12 Hours) Vital Signs Temp Pulse Pulse Resp BP Pulse Ox 07/07/19 07:17 36.6 C 76 16 129/80 97 07/07/19 03:45 36.7 C 88 18 110/72 95 07/06/19 23:30 36.9 C 113 H 19 135/83 97 07/06/19 22:30 123 H Laboratory Results Laboratory Results - last 24 hr 07/06/19 07/06/19 07/07/19 16:17 20:43 06:10 WBC RBC Hgb Hct MCV MCH MCHC RDW Std Deviation RDW Coeff of Kenneth Plt Count MPV PT INR Sodium 141 Potassium 3.5 Chloride 105 Carbon Dioxide 29 Anion Gap 7.0 BUN 20 H Creatinine 1.11 Est Cr Clr Drug Dosing 56.4 Est GFR ( Amer) 55.5 Est GFR (Non-Af Amer) 47.9 BUN/Creatinine Ratio 17.9 Glucose 89 POC Glucose 100 H 83 Calcium 8.8 07/07/19 07/07/19 07/07/19 06:10 06:10 07:16 WBC 5.32 RBC 3.30 L Hgb 11.1 L Hct 33.8 L MCV 102.4 H MCH 33.6 MCHC 32.8 RDW Std Deviation 55.9 H RDW Coeff of Kenneth 15.1 H Plt Count 161 MPV 11.3 H PT 22.4 H INR 2.3 H Sodium Potassium Chloride Carbon Dioxide Anion Gap BUN Creatinine Est Cr Clr Drug Dosing Est GFR ( Amer) Est GFR (Non-Af Amer) BUN/Creatinine Ratio Glucose POC Glucose 95 Calcium 07/07/19 11:21 WBC RBC Hgb Hct MCV MCH MCHC RDW Std Deviation RDW Coeff of Kenneth Plt Count MPV PT INR Sodium Potassium Chloride Carbon Dioxide Anion Gap BUN Creatinine Est Cr Clr Drug Dosing Est GFR ( Amer) Est GFR (Non-Af Amer) BUN/Creatinine Ratio Glucose POC Glucose 105 H Calcium Diagnostic Findings CXR today 1. Slight decrease in right basilar infiltrate though some degree of infiltrate persists. 2. Cardiomegaly with small bilateral pleural effusions. No kerri pulmonary edema.
[2019-07-07] MEDS: POLYETHYLENE (MIRALAX) 17 GM PACK PO SCH (09:15)
[2019-07-07] MEDS: PREGABALIN 50 MG CAP PO SCH ×3 (09:16→16:50)
[2019-07-07] MEDS: CHECK FENTANYL PATCH PLACEMENT SCH ×2 (09:16→16:51)
[2019-07-07] MEDS: METOPROLOL SUCC 50MG EXT REL TAB PO SCH (09:17)
[2019-07-07] MEDS: COLCHICINE 0.6 MG TAB PO SCH (09:17)
[2019-07-07] MEDS: CHOLECALCIFEROL 1,000 UNITS TAB PO SCH (09:17)
[2019-07-07] MEDS: DOCUSATE SODIUM 100 MG CAP PO SCH (09:17)
[2019-07-07] MEDS: allopurinoL 100 MG TAB PO SCH (09:17)
[2019-07-07] MEDS: TRAZODONE HCL 50 MG TAB PO SCH (09:18)
[2019-07-07] MEDS: SENNA 8.6 MG TAB PO SCH (09:18)
[2019-07-07] MEDS: SUCRALFATE 1 GM TAB PO SCH (09:19)
[2019-07-07] MEDS: FUROSEMIDE 40 MG TAB PO SCH ×2 (09:19→16:51)
[2019-07-07] MEDS: DULOXETINE HCL 60 MG CAP PO SCH (09:20)
[2019-07-07] MEDS: MAGNESIUM OXIDE 400 MG TAB PO SCH (09:20)
[2019-07-07] MEDS: FLUTICASONE/SALMETEROL (ADVAIR) 500/50 INH 14 PUFF INH SCH (09:21)
[2019-07-07] MEDS: TIOTROPIUM BROMIDE 5 PUFF/90 MCG INH INH SCH (09:21)
[2019-07-07] MEDS: MICONAZOLE NITRATE POWDER 43 GM TOP SCH ×2 (09:22→13:41)
[2019-07-07] MEDS: PIPERACILLIN/TAZOBACTAM 4.5 GM in DEXTROSE 5% 100 ML IV SCH ×2 (09:22→16:51)
[2019-07-07] MEDS: BACITRACIN OINT 15 GM TUBE TOP SCH (09:22)
[2019-07-07] MEDS: ARTIFICIAL TEARS OP SCH ×2 (09:22→13:41)
--- NOTE | 2019-07-07 10:31 | XRay Report ---
XR chest 2V routine CLINICAL HISTORY: 78 years-old Female presenting with Cough. TECHNIQUE: AP and lateral views of the chest were obtained. COMPARISON: 07/03/2019. FINDINGS: Atherosclerosis of the aortic arch. Cardiac silhouette enlarged. Pulmonary vasculature only mildly en gorged and similar to prior exam. Decreased right basilar opacity though some degree of opacity persi sts. Small effusions may be present. No pneumothorax. Suspected osteopenia. Advanced degenerative ivis nges of the glenohumeral joints. IMPRESSION: 1. Slight decrease in right basilar infiltrate though some degree of infiltrate persists. 2. Cardiomegaly with small bilateral pleural effusions. No kerri pulmonary edema. Electronically signed by: Spencer Aleman M.D. 07/07/2019 10:30 AM
[2019-07-07] MEDS: DIGOXIN 0.125 MG TAB PO SCH (16:50)
[2019-07-07] MEDS: ACETAMINOPHEN 325 MG TAB PO PRN (18:50)
--- NOTE | 2019-07-08 07:19 | Discharge Summary ---
Date of Service July 08, 2019 Admission HPI Per Admitting Provider 78-year-old female with past medical history significant for type 2 diabetes, hypothyroidism, hyperlipidemia, COPD, asthma, history of hemothorax, atrial fibrillation, chronic diastolic CHF, hypertension, stenosis of right carotid artery, mitral insufficiency, moderate tricuspid insufficiency, history of left ventricular hypertrophy, history of CVA, obesity, chronic gastritis, osteoarthritis of both the knees, hiatal hernia, chronic pain syndrome, persistent headaches, history of PE, generalized anxiety disorder, abnormality of gait, history of MRSA infection, history of insomnia, who is a [facility] resident. Was brought in because of shortness of breath and cough and fever. The patient says she is also bringing up greenish yellow phlegm and she is also complaining of burning micturition since last 3 days. She was febrile at the residential, but here in the ER she is afebrile. On initial presentation, systolic blood pressure in 70s. After fluid bolus, blood pressure is coming up. She is also getting treated for generalized dermatitis by dermatology with a steroid cream. She says dermatitis is much improved. She is resting comfortably, somewhat sleepy but alert and oriented. Answers appropriately. Complains of mild headache. No blurred visions, no earache, no runny nose, no sore throat, no chest pain, no nausea, no vomiting, no abdominal pain. Appetite is okay. Denies dysphagia. Normal bowel movements. No blood in the stools or black stools. No hematuria. She says the swelling in the legs is same, not worsened. She ambulates with help of walker. Appetite is okay. Admission Exam Per Admitting Provider GENERAL: The patient is obese, not in acute distress. VITAL SIGNS: Temperature 36.9, pulse 98, respiratory rate 22, blood pressure 108/84, oxygen 95% on 3 liters. HEENT: No pallor, no icterus. Pupils equal, round, reactive to light. NECK: No JVD, no neck masses, no carotid bruits. CARDIOVASCULAR: S1, S2 heard, regular rate and rhythm. No murmur, no gallop. RESPIRATORY SYSTEM: Normal AP diameter. No accessory muscle use. Mild bibasilar crackles. No wheezing. ABDOMEN: Soft, bowel sounds present. Mild tenderness in the right upper quadrant region, which patient says is chronic. No distention. Rash seen in the umbilical region. EXTREMITIES: Bilateral lower extremity pedal edema present. Mild erythema seen. SKIN: Generalized papular rash seen mostly on the back and the extremities. Rash in the abdominal folds, in the groin and in the umbilical region. Principal Diagnosis Right lung pneumonia Discharge Exam General: Obese, no acute distress and not ill appearing Eyes: PERRL, conjunctivae normal, not pale, anicteric sclerae, EOM intact bilaterally ENMT: External ear and nose normal, oropharynx normal Neck: Normal visual inspection, no tracheal deviation, no swelling noted Respiratory: Normal respiratory effort, no respiratory distress, +has bibasilar crackles Cardiovascular: Pulse is irregularly irregular, S1 S2 Gastrointestinal (Abdomen): Abdomen is soft, non-tender to palpation, no guarding, no palpable hepatosplenomegaly, normal bowel sounds Musculoskeletal: Erythema on both woodall with features of chronic stasis dermatitis skin changes, mild tenderness on anterior woodall, trace leg edema, no differential warmth Skin: Erythematous rash under skin folds on trunk, non tender Neurologic: Alert and oriented x 3, No focal weakness, sensation grossly intact Discharge Data Allergies Allergy/AdvReac Type Severity Reaction Status Date / Time acetaminophen [From Percocet] Allergy Unknown Unknown Verified 07/03/19 02:18 meperidine [From Demerol] Allergy Unknown ON WINDY Verified 07/03/19 02:18 HILL LIST morphine AdvReac Intermediate vomiting Verified 07/03/19 02:18 oxycodone AdvReac Intermediate vomit blood Verified 07/03/19 02:18 propoxyphene AdvReac Intermediate abd vomit Verified 07/03/19 02:18 blood tramadol AdvReac Intermediate vomiting Verified 07/03/19 02:18 Bactrim AdvReac Mild GI SYMPTOMS Verified 03/06/18 21:06 codeine AdvReac Mild vomiting Verified 07/03/19 02:18 olmesartan AdvReac Mild GI SYMPTOMS Verified 07/03/19 02:18 Sulfa (Sulfonamide AdvReac Mild GI SYMPTOMS Verified 07/03/19 02:18 Antibiotics) sulfamethoxazole AdvReac Mild GI SYMPTOMS Verified 01/11/19 08:53 trimethoprim AdvReac Mild GI SYMPTOMS Verified 01/11/19 08:53 carisoprodol AdvReac Unknown GI SYMPTOMS Verified 01/11/19 08:53 Consultations 07/03/19 03:27 ED Decision to Admit Stat 07/03/19 05:36 Consult Case Management - Discharge Planning Routine Ordered Studies 07/03/19 04:20 CT chest wo con Urgent 1. Right lower lobe airspace opacities suspicious for pneumonia. There is an associated small right pleural effusion. Imaging subsequently treatment is recommended in follow-up to document resolution 2. Mild mediastinal and right hilar lymphadenopathy, possibly reactive. This should be reevaluated on follow-up studies.. Hospital Course (1) Pneumonia: Sepsis due to pneumonia likely due to aspiration Clinical improved Provided aspiration precautions education CT chest on admission showed Right lower lobe opacities. Leukocytosis resolved Sputum culture negative. Blood cultures negative so far. Urine cultures growing E.coli. Patient denied any urinary symptoms. 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 (4) Asthma: Continue nebs. Continue intranasal oxygen (5) Diastolic CHF: Continue metoprolol XL and home diuretics Continue digoxin (6) DM type 2 (diabetes mellitus, type 2): Not on any antidiabetic Last A1c was 5.9 (7) Hypothyroidism: Continue levothyroxine TSH was 1.45 on admission (8) Hypertension: BP has been stable Metoprolol xl and diuretics resumed (9) Atrial fibrillation: Currently rate controlled Metoprolol xl resumed Continue digoxin Continue warfarin for anticoagulation. INR still therapeutic (10) Anxiety: Controlled Continue home medications (11) DJD (degenerative joint disease), multiple sites: Chronic Continue home meds Total Time Total Time Spent Total Time Spent (In Minutes): 35 Discharge Plan Discharge Items Patient Disposition: Transfer Senior Living Fac Reason For Visit: SOB Discharge Diagnosis: Right lung pneumonia Condition on Discharge: Good Activity: Resume your previous activity Non-emergency contact: Primary Care Provider Call non-emergency contact if: you have any medication questions and your symptoms worsen Follow-up/Referrals: Freddy Pinto [Primary Care Provider] - Diet: Heart Healthy and Low Sodium (2gm) Addtl Attending Provider Instructions: Ms Crane. You came to the hospital for shortness of breath, cough and fevers. Evaluation showed you had a right lung pneumonia. You were treated with antibiotics injection. Please continue to take the oral antibiotics to complete therapy for another 3 days. Continue to take the cough medication for your cough. Please take all your other medications as prescribed. Please ensure you are sitting upright when your eat or drink. Ensure you follow up with your Primary Doctor. It was a pleasure taking care of you. Pending Studies at Discharge: No Stand-Alone Forms: My [facility] Skilled Items Patient informed of condition?: Yes DNR: No (Conditional Code: Wants CPR and pressors but no intubation/ventilation) Discharge Level of Care: Skilled Communicable Disease: No Discharge Prognosis: Stable Lines: None Urinary Catheter: No Medications and DC Order Prescriptions: New amoxicillin-pot clavulanate [Augmentin] 875-125 mg tablet 1 tab PO BID 3 Days Qty: 6 RF: 0 Continued glucagon HCl 1 mg recon soln 1 mg subcut DIRECTED PRN (Reason: Hypoglycemia) RF: 0 magnesium oxide 250 mg magnesium tablet 250 mg PO DAILY RF: 0 dextrose 40 % gel 40 % PO DIRECTED RF: 0 digoxin 125 mcg tablet 125 mcg PO .COMPLEX RF: 0 fentanyl 25 mcg/hr patch 72 hour 1 patch TD Q72H RF: 0 ranitidine HCl 75 mg tablet 75 mg PO BID RF: 0 spironolactone 25 mg tablet 25 mg PO QAM RF: 0 cholecalciferol (vitamin D3) 1,000 unit capsule 1,000 units PO DAILY RF: 0 benzonatate 100 mg capsule 200 mg PO .Every 8 hours PRN (Reason: Cough) RF: 0 bacitracin 500 unit/gram ointment 1 appln TOP DAILY RF: 0 furosemide 20 mg tablet 80 mg PO BID RF: 0 ipratropium-albuterol 0.5 mg-3 mg(2.5 mg base)/3 mL Solution For Nebulization 3 ml INHALATION DIRECTED PRN (Reason: Shortness Of Breath Or Wheezing) RF: 0 polyethylene glycol 3350 [Miralax] 17 gram Powder In Packet 17 g PO Q OTHER DAY RF: 0 ondansetron HCl [Zofran] 8 mg Tablet 8 mg PO Q8 PRN (Reason: Nausea) RF: 0 sucralfate 1 gram Tablet 1 g PO AMPM RF: 0 allopurinol 100 mg Tablet 200 mg PO QAM RF: 0 levothyroxine 75 mcg Tablet 75 mcg PO DAILYBB RF: 0 magnesium hydroxide [Milk of Magnesia] 400 mg/5 mL Suspension 30 ml PO DAILY PRN (Reason: NO BM X 3 DAYS.) RF: 0 meclizine 25 mg Tablet 25 mg PO TID PRN (Reason: Dizziness) RF: 0 bisacodyl [Dulcolax (bisacodyl)] 10 mg Suppository 10 mg CA DAILY PRN (Reason: NO RESULTS FROM MOM, DAY 5) RF: 0 Fleet Enema 19-7 gram/118 mL Enema 118 ml CA DAILY PRN (Reason: DAY 6 OF NO BM.) RF: 0 docusate sodium [Colace] 100 mg Capsule 100 mg PO AMHS RF: 0 montelukast 10 mg Tablet 10 mg PO PM RF: 0 colchicine 0.6 mg Tablet 0.6 mg PO QAM RF: 0 duloxetine 60 mg Capsule,Delayed Release(Dr/Ec) 60 mg PO QAM RF: 0 pregabalin [Lyrica] 50 mg Capsule 50 mg PO TIDM RF: 0 acetaminophen [Tylenol] 325 mg Capsule 650 mg PO Q4 PRN (Reason: Fever Or Pain) RF: 0 melatonin 10 mg Tablet 10 mg PO HS RF: 0 Glucosamine Chondroitin PLUS [phone] mg Capsule 1 tab PO PC RF: 0 trazodone 50 mg tablet 50 mg PO .COMPLEX RF: 0 simethicone [Gas Relief] 180 mg Capsule 180 mg PO DAILY PRN (Reason: Gastrointestinal Spasms Or Cramping) RF: 0 sennosides [senna] 8.6 mg Tablet 8.6 mg PO BID RF: 0 guaifenesin [Amy-Tussin] 100 mg/5 mL Liquid 200 mg PO Q4H PRN (Reason: Cough) RF: 0 Incruse Ellipta 62.5 mcg/actuation Blister With Device 1 inh INHALATION QAM RF: 0 fluticasone propion-salmeterol [Advair Diskus] 500-50 mcg/dose Blister With Device 1 inh INHALATION BID RF: 0 betamethasone dipropionate 0.05 % Ointment 1 applic TOPICAL BID PRN (Reason: Rash) RF: 0 warfarin [Coumadin] 2 mg Tablet 2 mg PO QPM RF: 0 Refresh Classic Eye 1 drp INSTIL TID RF: 0 metoprolol succinate [Toprol XL] 100 mg Tablet Extended Release 24 Hr 100 mg PO BID RF: 0 Desenex 2 % Powder 1 applic TOPICAL TID RF: 0 Discharge Orders: Discharge Order (Routine); Ordered 07/07/19 Ordered By: Fariba Arora/Other Patient Handouts: Pneumonia, Pneumonia Prevent, Pneumonia Tx Admission Data Admit Date/Time: 07/03/19 04:16 Attending Provider: Fariba Jimenez I. Admit Provider: Nimesh Greenfield Primary Care Provider: Freddy Pinto Other Providers: Nimesh Greenfield ; Freddy Pinto Other Interventions: Discharge Summary Assessment (RN) Last Done: 07/07/19 14:30 DC Date/Time DO NOT enter until pt leaves facility: 07/07/19 19:24
== END 2019-07-07 19:24 | DRG 871 ==
LOC: ED 01:48 → 2S 04:16

== ENCOUNTER 2020-01-22 10:18 | Inpatient (IN) ==
[2020-01-22 11:43] LABS: Basophils # (auto) 0.02 K/uL (0-0.2); Basophils % (auto) 0.1 %; Eosinophils # (auto) 0.13 K/uL (0-0.5); Eosinophils % (auto) 0.9 %; Hematocrit (blood only) 37.7 % (37-47); Hemoglobin 12.7 g/dL (12.0-16.0); Immature Granulocytes # (auto) 0.03 K/uL (0.00-0.02); Immature Granulocytes % (auto) 0.2 %; Lymphocytes # (auto) 1.31 K/uL (1.2-3.4); Lymphocytes % (auto) 8.8 %; Mean Corpuscular Hemoglobin 35.4 pg (25-34); Mean Corpuscular Hgb Conc 33.7 g/dL (32-36); Monocytes # (auto) 0.64 K/uL (0.11-0.59); Monocytes % (auto) 4.3 %; Neutrophils # (auto) 12.75 K/uL (1.4-6.5); Neutrophils % (auto) 85.7 %; Platelet Count 180 K/uL (130-400); RDW Coefficient of Variation 14.9 % (11.5-14.5); RDW Standard Deviation 56.9 fL (36.4-46.3); Red Blood Count 3.59 M/uL (4.2-5.4); White Blood Count 14.88 K/uL (4.8-10.8)
--- NOTE | 2020-01-22 11:47 | CT Scan Report ---
CT head/brain wo con CT DOSE: 947.54 mGycm HISTORY: Trauma fall TECHNIQUE: Multiaxial CT images of the head were performed without the use of intravenous contrast. A dose lowering technique was utilized adhering to the principles of ALARA. Comparison: 12/25/2019 Findings: The paranasal sinuses and mastoid air cells are clear. The calvarium and skull base are int act. The ventricles and sulci are within normal limits. There is no mass, hematoma, midline shift, or acute infarct. Impression: No acute intracranial abnormality. ACT 112: Negative or not required by law. The above report was generated using voice recognition software. It may contain grammatical, syntax or spelling errors. Electronically signed by: Brain An M.D. 01/22/2020 11:45 AM
--- NOTE | 2020-01-22 11:50 | CT Scan Report ---
CT cervical spine wo con CT DOSE: 769.80 mGycm HISTORY: Trauma fall TECHNIQUE: Multiaxial CT images of the cervical spine were performed and reformatted in the sagittal and coronal plane without the use of contrast. A dose lowering technique was utilized adhering to th e principles of ALARA. COMPARISON: None. FINDINGS: No fractures. No subluxation. Prevertebral soft tissues and the C1-C2 interval are intact. No pneumothorax. Degenerative disc changes throughout. Osteoporosis. IMPRESSION: No fractures within the cervical spine. Degenerative change ACT 112: Negative or not required by law. The above report was generated using voice recognition software. It may contain grammatical, syntax or spelling errors. Electronically signed by: Brain An M.D. 01/22/2020 11:48 AM
[2020-01-22 12:04] LABS: INR 4.6 (0.9-1.1); Partial Thromboplastin Ratio 1.8; Prothrombin Time 44.3 Seconds (9.0-12.0)
[2020-01-22 12:05] LABS: Alanine Aminotransferase 19 U/L (12-78); Albumin Level 2.9 gm/dl (3.4-5.0); Aspartate Aminotransferase 17 U/L (15-37); BUN Creatinine Ratio 28.9 (10-20); Blood Urea Nitrogen 46 mg/dl (7-18); Calcium 8.9 mg/dl (8.5-10.1); Carbon Dioxide 31 mmol/L (21-32); Chloride 97 mmol/L (98-107); Creatinine Clr Calc Pharmacy 38.5 ml/min; Est GFR (African American) 35.4; Est GFR (Non-African American) 30.5; Glucose 134 mg/dl (70-99); Magnesium 3.7 mg/dl (1.8-2.4); Partial Thromboplastin Time 49.1 Seconds (21.0-31.0); Potassium 4.6 mmol/L (3.5-5.1); Sodium 133 mmol/L (136-145)
[2020-01-22 12:16] LABS: Albumin Globulin Ratio 0.8 (0.9-2); Alkaline Phosphatase 117 U/L (45-117); Bilirubin,Total 0.6 mg/dl (0.2-1); Creatine Kinase 32 U/L (26-192); Globulin 3.5 gm/dl (2.5-4.0); Total Protein 6.4 gm/dl (6.4-8.2); Troponin I < 0.015 ng/ml (0-0.045)
--- NOTE | 2020-01-22 12:16 | Emergency Department Note ---
Impression & Plan Cellulitis of left lower leg, Hematoma of left lower extremity, Elevated INR, Fall ED Provider Note NAME: RESHMA RAGSDALE AGE: 79 SEX: F : 1940 ARRIVES VIA: Ambulance INFORMANT: Patient, ED PROVIDER(S): Kwaku Cole DO CHIEF COMPLAINT: Left lower extremity pain. HPI: The patient is a 79-year-old female who presented to the emergency department because of swelling and ecchymosis of her left leg. The [facility] She does take Coumadin and over the last 24 hours has noticed increased swelling in her left lower extremity. [facility] but sent to the emergency department with concerns because of increased swelling in her calf. The patient denies any head injury. She denies having any nausea or vomiting. She states that the leg does not feel cold or numb to her. She was scheduled for an outpatient x-ray but was sent to the emergency department instead. ROS: See above HPI for pertinent positives & negatives. A total of 10 systems reviewed and were otherwise negative. PAST MEDICAL HISTORY: See Below PAST SURGICAL HISTORY: See Below FAMILY HISTORY: See Below SOCIAL HISTORY: See Below HOME MEDICATIONS: See Below ALLERGIES: See Below VITALS: See Below PHYSICAL EXAMINATION: GENERAL: Patient is awake alert in no acute distress patient is resting comfortably and showing no signs of anxiety EYES: The conjunctivae are clear. The pupils are round and reactive. EARS, NOSE, MOUTH AND THROAT: The nose is without any evidence of any deformity. Mucous membranes are moist. Tongue is midline. NECK: The neck is nontender and supple. RESPIRATORY: Normal respiratory effort is noted there is no evidence of wheezing rhonchi or rales CARDIOVASCULAR: Irregular rhythm was noted to auscultation. No definite murmur was noted. GASTROINTESTINAL: The abdomen is soft. Abdomen is nontender. BACK: No midline tenderness or or step-off noted range of motion in flexion extension as well as rotation no signs of muscle spasm noted MUSCULOSKELETAL/EXTREMITIES: There is significant ecchymosis and swelling of the left calf. There is also pain with range of motion of the left hip and the left knee. There is no crepitus or deformity. There is no pain with active or passive range of motion of the lower extremity. Patient is able to move her foot back and forth without significant pain to the calf. SKIN: Pedal edema was noted bilaterally. Pulses were symmetric in both feet. There is significant ecchymosis the left leg and also multiple skin tears of the right upper extremity. NEUROLOGIC: Patient is awake alert and oriented x3. MEDICAL DECISION MAKING: The patient is a 79-year-old female who presented to the emergency department for an evaluation of a fall. I seen this patient before for similar complaints. She has been at our facility with falls with sig nificant concerns because she takes Coumadin. The patient presented mostly for lower extremity swelling and pain. The patient fell striking her left calf. She had significant ecchymosis over her left leg. The patient had no pain with passive range of motion of the left foot. X-rays did not reveal any acute fracture. The patient also had further radiographic studies including CT the head and neck. She also had further laboratory studies. She was treated with IV fluids and IV antibiotics for presumed cellulitis of the left lower extremity. I discussed the patient's laboratory and radiographic studies with her. I also discussed her case with the on-call [facility] hospitalist group. Claudio fleming have agreed to evaluate the patient in the emergency department for further management and disposition. Provider summary Triage Nursing notes reviewed. Prior medical records reviewed Vital Signs: reviewed and remarkable for no significant abnormalities Differential diagnosis: Fracture, subluxation, dislocation, contusion, ligamentous injury, neurovascular, compartment syndrome, rhabdomyolysis, as well as other pathologies. ER treatment provided: See below Diagnostics interpreted by me: ECG: EKG was obtained in the emergency department. My interpretation is atrial fibrillation at 86 bpm. There is diffuse ST segment depressions noted. Early transition was noted. There was no significant change compared to a tracing from July 09, 2019. Cardiac Monitoring: An order was placed for continuous cardiac monitoring. The monitor shows a rate of 92 with atrial fibrillation as the rhythm. Laboratory studies: As stated above and show below. Imaging studies: See below Consultation(s): 1430: I discussed this case with Peg [facility] They have agreed to evaluate the patient in the emergency department for further management and disposition. Past Med/Surg History Medical History Acute kidney injury superimposed on CKD Anxiety (Chronic) Arthritis (Chronic) Asthma (Chronic) Atrial fibrillation (Chronic) Chronic back pain (Chronic) Chronic gastritis (Chronic) Chronic pain (Chronic) Chronic respiratory failure (Acute) CKD (chronic kidney disease), stage III (Chronic) COPD (chronic obstructive pulmonary disease) Diastolic CHF (Chronic) On 02/12/16 22:20 Ellieromy Bains wrote "per echo 09/30/15- EF 60-65%, mod LVH, mod MR, mod TR, dilated RV" DJD (degenerative joint disease), multiple sites (Chronic) DM type 2 (diabetes mellitus, type 2) (Chronic) DM2 (diabetes mellitus, type 2) (Chronic) Generalized anxiety disorder (Chronic) GERD (gastroesophageal reflux disease) (Chronic) History of pulmonary embolism (Chronic) HTN (hypertension) (Chronic) Hypertension (Chronic) Hyperuricemia (Chronic) Hypothyroidism (Chronic) Intertrigo Obesity (BMI 30-39.9) (Chronic) Stenosis of right carotid artery (Chronic) Surgical History History of hernia repair (Chronic) Status post cholecystectomy (Chronic) "Dr. [facility] 12/27/17" Family History Father Hypertension Diabetes Social History Preferred Language: Arabic Communication Ability: Effective Communication Ability Comment: Pt confused Logging Operations Inspector Required: No Beliefs That Will Affect Care: None marital status: / Current Living Situation: Senior Care Current Living Situation Comment: [facility] Other Information That Helps Us Care for You: No Feels Safe at Home: Yes Safety Concerns: Feels Safe At This Time Smoking Status: Never smoker Second Hand Exposure: No ; Hx Alcohol Use: No Hx Substance Use: No Allergies Allergies Allergy/AdvReac Type Severity Reaction Status Date / Time acetaminophen [From Percocet] Allergy Unknown Unknown Verified 01/22/20 11:35 meperidine [From Demerol] Allergy Unknown ON Verified 01/22/20 11:35 HILL LIST morphine AdvReac Intermediate vomiting Verified 01/22/20 11:35 oxycodone AdvReac Intermediate vomit blood Verified 01/22/20 11:35 propoxyphene AdvReac Intermediate abd vomit Verified 01/22/20 11:35 blood tramadol AdvReac Intermediate vomiting Verified 12/25/19 23:09 Bactrim AdvReac Mild GI SYMPTOMS Verified 03/06/18 21:06 codeine AdvReac Mild vomiting Verified 01/22/20 11:35 olmesartan AdvReac Mild GI SYMPTOMS Verified 12/25/19 23:09 Sulfa (Sulfonamide AdvReac Mild GI SYMPTOMS Verified 01/22/20 11:35 Antibiotics) sulfamethoxazole AdvReac Mild GI SYMPTOMS Verified 01/22/20 11:35 trimethoprim AdvReac Mild GI SYMPTOMS Verified 01/22/20 11:35 carisoprodol AdvReac Unknown GI SYMPTOMS Verified 12/10/19 14:37 Home Meds Home Medications Medication Instructions Recorded Confirmed acetaminophen [Tylenol] 650 mg PO Q4 PRN 11/01/18 01/22/20 allopurinol 200 mg PO QAM 11/01/18 01/22/20 colchicine 0.6 mg PO QAM 11/01/18 01/22/20 docusate sodium [Colace] 100 mg PO BID 11/01/18 01/22/20 duloxetine 60 mg PO QAM 11/01/18 01/22/20 levothyroxine 75 mcg PO DAILYBB 11/01/18 01/22/20 meclizine 25 mg PO TID PRN 11/01/18 01/22/20 melatonin 10 mg PO HS 11/01/18 01/22/20 montelukast 10 mg PO PM 11/01/18 01/22/20 ondansetron HCl [Zofran] 8 mg PO Q8 PRN 11/01/18 01/22/20 pregabalin [Lyrica] 50 mg PO TIDM 11/01/18 01/22/20 sucralfate 1 g PO AMPM 11/01/18 01/22/20 simethicone [Gas Relief 180 mg PO DAILY PRN 12/27/18 01/22/20 (simethicone)] Incruse Ellipta 1 inh INHALATION QAM 01/11/19 01/22/20 sennosides [senna] 8.6 mg PO BID 01/11/19 01/22/20 magnesium oxide 250 mg PO DAILY tab 06/10/19 01/22/20 cholecalciferol (vitamin D3) 25 1,000 units PO DAILY 06/11/19 01/22/20 mcg (1,000 unit) capsule digoxin 125 mcg (0.125 mg) tablet 125 mcg PO MOWEFR 06/11/19 01/22/20 spironolactone 25 mg tablet 25 mg PO QAM tab 06/11/19 01/22/20 trazodone 50 mg tablet 25 mg PO DAILY 06/11/19 01/22/20 Desenex 1 applic TOPICAL TID 07/03/19 01/22/20 betamethasone dipropionate 1 applic TOPICAL BID PRN 07/03/19 01/22/20 buspirone 10 mg PO BID 07/09/19 01/22/20 metoprolol succinate [Toprol XL] 100 mg PO BID 07/09/19 01/22/20 benzocaine-menthol [Cepacol Sore 1 huan PO .Q2HRS PRN PRN 12/25/19 01/22/20 Throat (nataliia-men)] famotidine [Pepcid] 20 mg PO BID 12/25/19 01/22/20 fentanyl [Duragesic] 25 mcg TOPICAL [id number] 12/25/19 01/22/20 fluticasone propion-salmeterol 1 ea INHALATION BID 12/25/19 01/22/20 [Advair Diskus] furosemide [Lasix] 80 mg PO DAILY 12/25/19 01/22/20 guaifenesin [Mucinex] 600 mg PO BID 12/25/19 01/22/20 guaifenesin [Siltussin SA] 200 mg PO Q4 PRN 12/25/19 01/22/20 metolazone 2.5 mg PO WESA 12/25/19 01/22/20 potassium chloride 10 meq PO DAILY 12/25/19 01/22/20 trazodone 50 mg PO HS 12/25/19 01/22/20 glucosamine-chondroitin 1 tab PO TID 01/22/20 01/22/20 levalbuterol HCl [Xopenex] 0.63 mg INHALATION Q4H PRN 01/22/20 01/22/20 polyvinyl alcohol-povidon(PF) 2 drp OPB TID 01/22/20 01/22/20 [Refresh Classic (PF)] warfarin 1 mg PO UD 01/22/20 01/22/20 Results & Data (ED) Vital Signs Vital Signs - 24 hr 01/22/20 10:24 01/22/20 12:11 01/22/20 13:20 Temperature 36.7 C Temperature Source Oral Pulse Rate 88 Pulse Rate [Apical] 94 H 102 H Respiratory Rate 20 16 16 Respiratory Effort / Characteristics Non-Labored Spontaneous Respiratory Depth Normal Blood Pressure 108/68 Blood Pressure [Right Arm] 86/44 L 92/63 L Blood Pressure Mean 81 Blood Pressure Mean [Right Arm] 58 72 Pulse Oximetry 93 94 Oxygen Delivery Method Room Air Room Air Sepsis Recent Fever Within 48 Hours No Sepsis New/Unexplained Change in Mental Status No Sepsis Action Taken by Nursing No Action Required 01/22/20 13:26 Temperature Temperature Source Pulse Rate Pulse Rate [Apical] Respiratory Rate Respiratory Effort / Characteristics Respiratory Depth Blood Pressure Blood Pressure [Right Arm] Blood Pressure Mean Blood Pressure Mean [Right Arm] Pulse Oximetry 94 Oxygen Delivery Method Room Air Sepsis Recent Fever Within 48 Hours Sepsis New/Unexplained Change in Mental Status Sepsis Action Taken by Nursing Laboratory Data Attestation: I reviewed the patient's lab results. Result diagrams: 01/24/20 05:58 01/24/20 05:58 Lab Results 01/22/20 01/22/20 01/22/20 Range/Units 11:28 11:28 11:28 WBC 14.88 H (4.8-10.8) K/uL RBC 3.59 L (4.2-5.4) M/uL Hgb 12.7 (12.0-16.0) g/dL Hct 37.7 (37-47) % MCV 105.0 H (80-100) fL MCH 35.4 H (25-34) pg MCHC 33.7 (32-36) g/dL RDW Std Deviation 56.9 H (36.4-46.3) fL RDW Coeff of Kenneth 14.9 H (11.5-14.5) % Plt Count 180 (130-400) K/uL MPV 11.0 H (7.4-10.4) fL Immature Gran % (Auto) 0.2 % Neut % (Auto) 85.7 % Lymph % (Auto) 8.8 % Ness % (Auto) 4.3 % Eos % (Auto) 0.9 % Baso % (Auto) 0.1 % Immature Gran # (Auto) 0.03 H (0.00-0.02) K/uL Neut # (Auto) 12.75 H (1.4-6.5) K/uL Lymph # (Auto) 1.31 (1.2-3.4) K/uL Ness # (Auto) 0.64 H (0.11-0.59) K/uL Eos # (Auto) 0.13 (0-0.5) K/uL Baso # (Auto) 0.02 (0-0.2) K/uL PT 44.3 H (9.0-12.0) Seconds INR 4.6 H (0.9-1.1) APTT 49.1 H* (21.0-31.0) Seconds PTT Ratio 1.8 Sodium 133 L (136-145) mmol/L Potassium 4.6 (3.5-5.1) mmol/L Chloride 97 L (98-107) mmol/L Carbon Dioxide 31 (21-32) mmol/L Anion Gap 5.0 (3-11) BUN 46 H (7-18) mg/dl Creatinine 1.60 H (0.6-1.2) mg/dl Est Cr Clr Drug Dosing 38.5 ml/min Est GFR ( Amer) 35.4 Est GFR (Non-Af Amer) 30.5 BUN/Creatinine Ratio 28.9 H (10-20) Glucose 134 H (70-99) mg/dl Lactate (0.4-2.0) mmol/L Calcium 8.9 (8.5-10.1) mg/dl Magnesium 3.7 H (1.8-2.4) mg/dl Total Bilirubin 0.6 (0.2-1) mg/dl AST 17 (15-37) U/L ALT 19 (12-78) U/L Alkaline Phosphatase 117 (45-117) U/L Total Creatine Kinase 32 (26-192) U/L Troponin I < 0.015 (0-0.045) ng/ml Total Protein 6.4 (6.4-8.2) gm/dl Albumin 2.9 L (3.4-5.0) gm/dl Globulin 3.5 (2.5-4.0) gm/dl Albumin/Globulin Ratio 0.8 L (0.9-2) TSH 2.530 (0.300-4.500) uIu/ml Blood Type Antibody Screen Crossmatch 01/22/20 01/22/20 01/22/20 Range/Units 16:19 16:19 16:19 WBC 17.52 H (4.8-10.8) K/uL RBC 2.29 L (4.2-5.4) M/uL Hgb 8.1 L D (12.0-16.0) g/dL Hct 24.2 L (37-47) % MCV 105.7 H (80-100) fL MCH 35.4 H (25-34) pg MCHC 33.5 (32-36) g/dL RDW Std Deviation 56.7 H (36.4-46.3) fL RDW Coeff of Kenneth 15.0 H (11.5-14.5) % Plt Count 137 (130-400) K/uL MPV 10.6 H (7.4-10.4) fL Immature Gran % (Auto) % Neut % (Auto) % Lymph % (Auto) % Ness % (Auto) % Eos % (Auto) % Baso % (Auto) % Immature Gran # (Auto) (0.00-0.02) K/uL Neut # (Auto) (1.4-6.5) K/uL Lymph # (Auto) (1.2-3.4) K/uL Ness # (Auto) (0.11-0.59) K/uL Eos # (Auto) (0-0.5) K/uL Baso # (Auto) (0-0.2) K/uL PT (9.0-12.0) Seconds INR (0.9-1.1) APTT (21.0-31.0) Seconds PTT Ratio Sodium (136-145) mmol/L Potassium (3.5-5.1) mmol/L Chloride (98-107) mmol/L Carbon Dioxide (21-32) mmol/L Anion Gap (3-11) BUN (7-18) mg/dl Creatinine (0.6-1.2) mg/dl Est Cr Clr Drug Dosing ml/min Est GFR ( Amer) Est GFR (Non-Af Amer) BUN/Creatinine Ratio (10-20) Glucose (70-99) mg/dl Lactate 2.0 (0.4-2.0) mmol/L Calcium (8.5-10.1) mg/dl Magnesium (1.8-2.4) mg/dl Total Bilirubin (0.2-1) mg/dl AST (15-37) U/L ALT (12-78) U/L Alkaline Phosphatase (45-117) U/L Total Creatine Kinase (26-192) U/L Troponin I (0-0.045) ng/ml Total Protein (6.4-8.2) gm/dl Albumin (3.4-5.0) gm/dl Globulin (2.5-4.0) gm/dl Albumin/Globulin Ratio (0.9-2) TSH (0.300-4.500) uIu/ml Blood Type A Negative Antibody Screen NEGATIVE Crossmatch See Detail Administered Medications Acetaminophen (Tylenol) 650 mg PO Q4H PRN PRN Reason: Pain or Fever Stop: 02/22/20 15:59 Last Admin: 01/24/20 00:47 Dose: 650 mg Documented by: [id number] Admin: 01/23/20 16:20 Dose: 650 mg Documented by: [id number] Allopurinol (Zyloprim) 200 mg PO QAM [facility] Stop: 02/22/20 08:59 Last Admin: 01/23/20 09:31 Dose: 200 mg Documented by: [id number] Buspirone HCl (Buspar) 10 mg PO BID [facility] Stop: 02/21/20 20:59 Last Admin: 01/23/20 20:20 Dose: 10 mg Documented by: [id number] Admin: 01/23/20 09:24 Dose: 10 mg Documented by: [id number] Admin: 01/22/20 23:22 Dose: Not Given Documented by: [id number] Digoxin (Lanoxin) 0.125 mg PO MoWeFr@0900 [facility] Stop: 02/22/20 08:59 Last Admin: 01/23/20 09:25 Dose: 0.125 mg Documented by: [id number] Docusate Sodium (Colace) 100 mg PO BID [facility] Stop: 02/21/20 20:59 Last Admin: 01/23/20 20:21 Dose: 100 mg Documented by: [id number] Admin: 01/23/20 09:27 Dose: 100 mg Documented by: [id number] Admin: 01/22/20 23:22 Dose: Not Given Documented by: [id number] Duloxetine HCl (Cymbalta) 60 mg PO QAM [facility] Stop: 02/22/20 08:59 Last Admin: 01/23/20 09:27 Dose: 60 mg Documented by: [id number] Famotidine (Pepcid) 20 mg PO BID [facility] Stop: 02/21/20 20:59 Last Admin: 01/23/20 20:22 Dose: 20 mg Documented by: [id number] Admin: 01/23/20 09:27 Dose: 20 mg Documented by: [id number] Admin: 01/22/20 23:23 Dose: Not Given Documented by: [id number] Fluticasone/Vilanterol (Breo Ellipta 200/25 Mcg Inh) 1 puffs INH DAILY [facility]; Protocol Stop: 02/22/20 08:59 Last Admin: 01/23/20 09:16 Dose: 1 puffs Documented by: [id number] Ceftriaxone Sodium 2,000 mg/ (Dextrose) 70 mls @ 100 mls/hr IV Q24H [facility]; Fransisca col Stop: 01/30/20 14:59 Last Infusion: 01/23/20 18:06 Dose: 0 mls/hr Documented by: [id number] Admin: 01/23/20 17:02 Dose: 100 mls/hr Documented by: [id number] Daptomycin 325 mg/ Syringe 6.5 mls @ 0 mls/min IV Q24H [facility]; Protocol Stop: 01/30/20 12:59 Last Admin: 01/23/20 13:32 Dose: 2 mls/min Documented by: [id number] Insulin Aspart (Novolog Flexpen) 0 units SC ACHS [facility] Stop: 02/21/20 20:59 Last Admin: 01/23/20 20:31 Dose: Not Given Documented by: [id number] Cosigned by: [id number] Admin: 01/23/20 17:05 Dose: 3 units Documented by: [id number] Cosigned by: [id number] Admin: 01/23/20 12:14 Dose: 2 units Documented by: [id number] Cosigned by: [id number] Admin: 01/23/20 09:18 Dose: Not Given Documented by: [id number] Cosigned by: [id number] Admin: 01/22/20 23:24 Dose: 1 units Documented by: [id number] Cosigned by: [id number] Levothyroxine Sodium (Synthroid) 75 mcg PO DAILYBB [facility] Stop: 02/22/20 06:29 Last Admin: 01/24/20 05:51 Dose: 75 mcg Documented by: [id number] Admin: 01/23/20 06:06 Dose: 75 mcg Documented by: [id number] Metoprolol Succinate (Toprol Xl) 100 mg PO BID [facility] Stop: 02/21/20 20:59 Last Admin: 01/23/20 20:23 Dose: Not Given Documented by: [id number] Admin: 01/23/20 09:31 Dose: 100 mg Documented by: [id number] Admin: 01/22/20 23:23 Dose: Not Given Documented by: [id number] Miconazole Nitrate (Desenex) 1 appln TOP TID [facility] Stop: 02/21/20 20:59 Last Admin: 01/23/20 20:22 Dose: 1 appln Documented by: [id number] Admin: 01/23/20 13:35 Dose: 1 appln Documented by: [id number] Admin: 01/23/20 09:15 Dose: 1 appln Documented by: [id number] Admin: 01/22/20 23:23 Dose: 1 appln Documented by: [id number] Montelukast Sodium (Singulair) 10 mg PO PM [facility] Stop: 02/21/20 20:59 Last Admin: 01/23/20 20:23 Dose: 10 mg Documented by: [id number] Admin: 01/22/20 23:23 Dose: Not Given Documented by: [id number] Ondansetron HCl (Zofran) 4 mg IV Q6H PRN PRN Reason: Nausea Stop: 02/21/20 20:54 Last Admin: 01/22/20 22:38 Dose: 4 mg Documented by: [id number] Pregabalin (Lyrica) 50 mg PO TIDM [facility] Stop: 02/22/20 07:59 Last Admin: 01/23/20 17:13 Dose: 50 mg Documented by: [id number] Admin: 01/23/20 12:09 Dose: 50 mg Documented by: [id number] Admin: 01/23/20 09:14 Dose: 50 mg Documented by: [id number] Sennosides (Senokot) 8.6 mg PO BID [facility] Stop: 02/21/20 20:59 Last Admin: 01/23/20 20:23 Dose: 8.6 mg Documented by: [id number] Admin: 01/23/20 09:24 Dose: 8.6 mg Documented by: [id number] Admin: 01/22/20 23:23 Dose: Not Given Documented by: [id number] Sucralfate (Carafate Tab) 1 gm PO BID [facility] Stop: 02/21/20 20:59 Last Admin: 01/23/20 20:21 Dose: 1 gm Documented by: [id number] Admin: 01/23/20 09:24 Dose: 1 gm Documented by: [id number] Admin: 01/22/20 23:22 Dose: Not Given Documented by: [id number] Umeclidinium [place] (Incruse Ellipta) 1 puffs INH QAM [facility] Stop: 02/22/20 08:59 Last Admin: 01/23/20 09:16 Dose: 1 puffs Documented by: [id number] Vitamin D (Vitamin D3) 1,000 units PO DAILY [facility] Stop: 02/22/20 08:59 Last Admin: 01/23/20 09:24 Dose: 1,000 units Documented by: [id number] Discontinued Medications Acetaminophen (Tylenol) 650 mg PO NOW STA Stop: 01/22/20 20:05 Last Admin: 01/22/20 20:18 Dose: 650 mg Documented by: [id number] Gelatin (Surgifoam Sponge 12-7mm (Small)) Confirm Administered Dose 3 ea .ROUTE .STK-MED ONE Stop: 01/22/20 18:14 Last Admin: 01/22/20 18:46 Dose: 3 ea Documented by: [id number] Ceftriaxone Sodium (Rocephin) 1,000 mg in 50 mls @ 100 mls/hr IV NOW STA Stop: 01/22/20 14:25 Last Infusion: 01/22/20 15:24 Dose: 0 mls/hr Documented by: [id number] Admin: 01/22/20 14:26 Dose: 100 mls/hr Documented by: [id number] Sodium Chloride (Nss) 500 mls @ 999 mls/hr IV .Q31M ONE Stop: 01/22/20 14:56 Last Infusion: 01/22/20 15:24 Dose: 0 mls/hr Documented by: [id number] Admin: 01/22/20 14:44 Dose: 999 mls/hr Documented by: [id number] Sodium Chloride (Nss) 500 mls @ 999 mls/hr IV .Q31M ONE Stop: 01/22/20 15:05 Last Infusion: 01/22/20 15:24 Dose: 0 mls/hr Documented by: [id number] Admin: 01/22/20 14:44 Dose: 999 mls/hr Documented by: [id number] Phytonadione 5 mg/ Sodium (Chloride) 50.5 mls @ 101 mls/hr IV ONE ONE Stop: 01/22/20 15:34 Last Infusion: 01/22/20 16:03 Dose: 0 mls/hr Documented by: [id number] Admin: 01/22/20 15:26 Dose: 101 mls/hr Documented by: [id number] Sodium Chloride (Nss 1000ml) 500 mls @ 999 mls/hr IV .Q31M ONE Stop: 01/22/20 17:01 Last Infusion: 01/22/20 17:27 Dose: 0 mls/hr Documented by: [id number] Admin: 01/22/20 16:38 Dose: 999 mls/hr Documented by: [id number] Phytonadione 5 mg/ Sodium (Chloride) 50.5 mls @ 101 mls/hr IV ONE ONE Stop: 01/22/20 17:44 Last Infusion: 01/22/20 18:46 Dose: 0 mls/hr Documented by: [id number] Admin: 01/22/20 17:27 Dose: 101 mls/hr Documented by: [id number] Prothrombin Complex Concent ( (Human) 3,500 units/ Syringe) 140 mls @ 10 mls/min IV NOW ONE; Protocol Stop: 01/22/20 17:43 Last Admin: 01/22/20 17:19 Dose: 10 mls/min Documented by: [id number] Sodium Chloride (Nss 1000ml) 1,000 mls @ 80 mls/hr IV .[id number] ONE Stop: 01/23/20 20:30 Last Infusion: 01/23/20 22:32 Dose: 0 mls/hr Documented by: [id number] Admin: 01/23/20 10:33 Dose: 80 mls/hr Documented by: [id number] Ioversol (Optiray 320 125ml) 120 ml IV ONCE PRN PRN Reason: Interaction Checking Stop: 01/26/20 16:05 Last Admin: 01/22/20 16:07 Dose: 120 ml Documented by: [id number] Ondansetron HCl (Zofran) Confirm Administered Dose 4 mg .ROUTE .STK-MED ONE Stop: 01/22/20 14:22 Last Admin: 01/22/20 14:26 Dose: 4 mg Documented by: [id number] Imaging Data Radiologist's Impression: XR tibia fibula LT 2V CLINICAL HISTORY: fall trauma COMPARISON: None. DISCUSSION: The bones and joint spaces appear intact. There is no evidence of fracture, dislocation or bony disease. Significant degenerative changes left knee. IMPRESSION: Mild soft tissue edema. Degenerative change. No acute bony abnormality. ACT 112: Negative or not required by law. The above report was generated using voice recognition software. It may contain grammatical, syntax or spelling errors. Electronically signed by: Brain An M.D. 01/22/2020 1:08 PM Dictated: 01/22/20 1307 Transcribed: 01/22/20 1307 XR knee LT 1 or 2V routine CLINICAL HISTORY: fall trauma. Pain. COMPARISON: None. DISCUSSION: Severe degenerative change all major joint compartments. Sclerosis of the articular surfaces. Lateral osteophytic changes throughout. No significant joint effusion. Degenerative changes of the patellofemoral joint is present. There is no evidence for soft tissue swelling. IMPRESSION: Severe degenerative change. No acute bony abnormality. ACT 112: Negative or not required by law. The above report was generated using voice recognition software. It may contain grammatical, syntax or spelling errors. Electronically signed by: Brain An M.D. 01/22/2020 1:09 PM Dictated: 01/22/20 1308 Transcribed: 01/22/[address] head/brain wo con CT DOSE: 947.54 mGycm HISTORY: Trauma fall TECHNIQUE: Multiaxial CT images of the head were performed without the use of intravenous contrast. A dose lowering technique was utilized adhering to the principles of ALARA. Comparison: 12/25/2019 Findings: The paranasal sinuses and mastoid air cells are clear. The calvarium and skull base are intact. The ventricles and sulci are within normal limits. There is no mass, hematoma, midline shift, or acute infarct. Impression: No acute intracranial abnormality. ACT 112: Negative or not required by law. The above report was generated using voice recognition software. It may contain grammatical, syntax or spelling errors. Electronically signed by: Brain An M.D. 01/22/2020 11:45 AM Dictated: 01/22/20 1144 Transcribed: 01/22/20 1144 XR femur LT 2V routine CLINICAL HISTORY: fall trauma. Pain. COMPARISON: 12/25/2019 DISCUSSION: The bones and joint spaces appear intact. There is no evidence of fracture, dislocation or bony disease. There is considerable degenerative change of the left knee. There are mild degenerative changes of the left hip. IMPRESSION: Degenerative change. No acute process. ACT 112: Negative or not required by law. The above report was generated using voice recognition software. It may contain grammatical, syntax or spelling errors. Electronically signed by: Brain An M.D. 01/22/2020 1:07 PM Dictated: 01/22/20 1306 Transcribed: 01/22/20 1306 XR chest 1V not portable CLINICAL HISTORY: weakness mental status change COMPARISON STUDY: 12/25/2019 FINDINGS: Lungs are clear. Diaphragms are smooth. Mild stable cardiomegaly. Severe degenerative change of the shoulders bilaterally. IMPRESSION: Chronic change. No acute process. ACT 112: Negative or not required by law. The above report was generated using voice recognition software. It may contain grammatical, syntax or spelling errors. Electronically signed by: Brain An M.D. 01/22/2020 1:06 PM Dictated: 01/22/20 1306 Transcribed: 01/22/[address] cervical spine wo con CT DOSE: 769.80 mGycm HISTORY: Trauma fall TECHNIQUE: Multiaxial CT images of the cervical spine were performed and reformatted in the sagittal and coronal plane without the use of contrast. A dose lowering technique was utilized adhering to the principles of ALARA. COMPARISON: None. FINDINGS: No fractures. No subluxation. Prevertebral soft tissues and the C1-C2 interval are intact. No pneumothorax. Degenerative disc changes throughout. Osteoporosis. IMPRESSION: No fractures within the cervical spine. Degenerative change ACT 112: Negative or not required by law. The above report was generated using voice recognition software. It may contain grammatical, syntax or spelling errors. Electronically signed by: Brain An M.D. 01/22/2020 11:48 AM Dictated: 01/22/20 1146 Transcribed: 01/22/20 1146 Blood Pressure Blood Pressure Findings: Low blood pressure Head Trauma GCS Score: 14 Discharge Plan Visit Data *Final* Discharge Date/Time: 01/22/20 20:29 Chief Complaint: Fall ED Provider: Roxann Nayak Discharge Problem: Cellulitis of left lower leg, Hematoma of left lower extremity, Elevated INR, Fall Patient Disposition: Admitted As Inpatient Condition: Good Discharge Instructions Interventions: ED Discharge Assessment Last Done: 01/22/20 20:29 Discharge Problem: Hematoma of left lower extremity Qualifiers: Encounter type: initial encounter Qualified Code(s): S80.12XA - Contusion of left lower leg, initial encounter Fall Qualifiers: Encounter type: initial encounter Qualified Code(s): W19.XXXA - Unspecified fall, initial encounter
--- NOTE | 2020-01-22 13:08 | XRay Report ---
XR chest 1V not portable CLINICAL HISTORY: weakness mental status change COMPARISON STUDY: 12/25/2019 FINDINGS: Lungs are clear. Diaphragms are smooth. Mild stable cardiomegaly. Severe degenerative nielson e of the shoulders bilaterally. IMPRESSION: Chronic change. No acute process. ACT 112: Negative or not required by law. The above report was generated using voice recognition software. It may contain grammatical, syntax or spelling errors. Electronically signed by: Brain An M.D. 01/22/2020 1:06 PM
--- NOTE | 2020-01-22 13:09 | XRay Report ---
XR femur LT 2V routine CLINICAL HISTORY: fall trauma. Pain. COMPARISON: 12/25/2019 DISCUSSION: The bones and joint spaces appear intact. There is no evidence of fracture, dislocation o r bony disease. There is considerable degenerative change of the left knee. There are mild degenerati ve changes of the left hip. IMPRESSION: Degenerative change. No acute process. ACT 112: Negative or not required by law. The above report was generated using voice recognition software. It may contain grammatical, syntax or spelling errors. Electronically signed by: Brain An M.D. 01/22/2020 1:07 PM
--- NOTE | 2020-01-22 13:10 | XRay Report ---
XR knee LT 1 or 2V routine CLINICAL HISTORY: fall trauma. Pain. COMPARISON: None. DISCUSSION: Severe degenerative change all major joint compartments. Sclerosis of the articular surfa truman. Lateral osteophytic changes throughout. No significant joint effusion. Degenerative changes of the patellofemoral joint is present. There is no evidence for soft tissue swelling. IMPRESSION: Severe degenerative change. No acute bony abnormality. ACT 112: Negative or not required by law. The above report was generated using voice recognition software. It may contain grammatical, syntax or spelling errors. Electronically signed by: Brain An M.D. 01/22/2020 1:09 PM
--- NOTE | 2020-01-22 13:10 | XRay Report ---
XR tibia fibula LT 2V CLINICAL HISTORY: fall trauma COMPARISON: None. DISCUSSION: The bones and joint spaces appear intact. There is no evidence of fracture, dislocation o r bony disease. Significant degenerative changes left knee. IMPRESSION: Mild soft tissue edema. Degenerative change. No acute bony abnormality. ACT 112: Negative or not required by law. The above report was generated using voice recognition software. It may contain grammatical, syntax or spelling errors. Electronically signed by: Brain An M.D. 01/22/2020 1:08 PM
[2020-01-22] MEDS ORDERED: cefTRIAXone SODIUM 1,000 MG/50 ML BAG IV STA (13:56)
[2020-01-22] MEDS ORDERED: ONDANSETRON INJ 2 MG/ML 2 ML VIAL ONE (14:21)
[2020-01-22] MEDS ORDERED: SODIUM CHLORIDE 0.9% 500 ML IV ONE ×2 (14:26→14:35)
--- NOTE | 2020-01-22 14:31 | Electrocardiogram Report ---
Test Reason : Blood Pressure : / mmHG Vent. Rate : 086 BPM Atrial Rate : 086 BPM P-R Int : 000 ms QRS Dur : 074 ms QT Int : 378 ms P-R-T Axes : 000 050 087 degrees QTc Int : 452 ms Atrial fibrillation Abnormal ECG Nonspecific ST abnormality When compared with ECG of 09-JUL-2019 01:09, Nonspecific T wave abnormality no longer evident in Inferior leads Nonspecific T wave abnormality no longer evident in Anterior leads Confirmed by Dennys Hu ([id number]) on 01/22/2020 2:30:32 PM Referred By: Freddy Stoll Confirmed By:Toney Hu
[2020-01-22] MEDS ORDERED: PHYTONADIONE 5 MG in SODIUM CHLORIDE 0.9% 50 ML IV ONE ×2 (15:05→17:15)
--- NOTE | 2020-01-22 15:56 | History & Physical Report ---
Date of Service January 22, 2020 Assessment & Plan (1) Fall: (2) Elevated INR: (3) Hematoma of left lower extremity: This is a 79-year-old female who has significant past medical history of chronic respiratory failure on O2, COPD, diastolic CHF, chronic atrial fibrillation on warfarin, T2DM, CKD stage III, HTN, chronic pain, history of PE/DVT, history of MRSA who presents to ED status post fall yesterday along with worsened left lower extremity pain and swelling. Upon my evaluation to admit the patient she was hemodynamically unstable with systolic blood pressures in the 70s and heart rates in the low 100s. She received 1 L IV fluid bolus. Repeat lab work revealed a drop in hemoglobin from 12-8.1. CTA of left lower extremity revealed large 33.8 cm subcutaneous hematoma with areas of active extravasation. Dr. Ferrer was contacted and patient was ordered an additional 5 mg IV vitamin K as well as K Centra. She was typed and crossed for 4 units -2 units ordered to be given stat. CT scan of head was negative for acute bleed. CT scan of abdomen pelvis was negative for acute pathology or hemorrhage. An attempt was made to compress the left lower extremity with Joce bandage and upon compression rupture subcutaneous bulla resulted in hemorrhage with improvement in patient's pain. Dr. Nayak assisted in wrapping the LLE after hemorrhage for further compression. Admit to PCU Continue to transfuse PRBC -currently 2 units/2 units on hold Neurovascular checks every 1 hour Orthopedics consulted and appreciate their input H&H every 4 Repeat hemoglobin and PT/INR at 8 PM Monitor hemodynamics closely with vitals every 2 hours She did receive 1 g IV Rocephin in ED (4) Acute blood loss anemia: Patient presented with initial hemoglobin of 12.7 and 1128 and a 1619 dropped to 8.1 secondary to acute blood loss anemia in setting of large subcutaneous left lower extremity hematoma Currently has 1 unit PRBC running with another one ordered 2 units on hold H/H Q4 hr Keep hgb > 8 (5) Leukocytosis: Initial WBC 12 K, repeat CBC revealed a WBC 17 K She received 1 g IV ceftriaxone while in ED No apparent evidence of infection although cannot rule out active cellulitis Continue IV Rocephin for now until infection ruled out She is afebrile Obtain urine culture (6) Acute kidney injury superimposed on CKD: Baseline creatinine 0.9 BUN/creatinine 46 and 1.60 Likely elevated secondary to ABL and hypovolemia Expect worsening creatinine in a.m. secondary to persistent hypotension along with IVP dye (7) Diastolic CHF: Pt with hx of HFpEF Currently hypovolemic in setting of ABL She received 1.5 L of NS in ED along with 1 unit of PRBC Will need to be monitored closely for volume overload Hold Lasix, Aldactone daily weights, strict I and O (8) DM type 2 (diabetes mellitus, type 2): A1c 6.8 11/2019 She is not on any oral hypoglycemics Monitor blood sugar AC/HS Novolog SS per protocol (9) Hypertension: Patient hypotensive in setting of ABL anemia Hold Lasix, Aldactone Continue metoprolol with parameters (10) Hypothyroidism: Continue levothyroxine (11) Chronic pain: pt with chronic pain secondary to arthralgias and DJD She is on fentanyl patch at baseline 25 mcg every 72 hour (last placed on 01/19) Fentanyl patch was removed in ED secondary to hypotension lethargy Scheduled Tylenol ordered Will need to evaluate when okay to resume fentanyl patch (12) Atrial fibrillation: Chronic atrial fibrillation Continue metoprolol Hold warfarin -10 mg IV vitamin K given along with K Centra Repeat PT/INR at 8 PM and in the morning (13) Chronic respiratory failure: Secondary to COPD/asthma On 2 L of O2 at at bedtime Follows [facility] (14) COPD (chronic obstructive pulmonary disease): No acute exacerbation Continue Advair and Incruse Of significance patient recently treated for bronchopneumonia in early December with Augmentin Chest x-ray negative for consolidation (15) DVT prophylaxis: Contraindicated in setting of acute blood loss anemia No mechanical prophylaxis secondary to hematoma Disposition: Admit to PCU Follow-up: PCP Dr. Lemus upon discharge Patient was seen and examined in collaboration with Dr. العراقي, please see addendum 300minutes was spent reviewing past medical history, communicating with ED and consulting providers, diagnostic imaging, assessment and development of treatment plan. Greater than 60 minutes of that was in setting of critical care due to persistent hypotension in setting of hemorrhagic shock Admission and Anticipated Discharge Date Admission Date: 01/22/2020 History of Present Illness Chief Complaint: S/p Fall yesterday with increased pain and swelling to LLE. Primary Care Provider: [facility] This is a 79-year-old female who has significant past medical history of chronic respiratory failure on O2, COPD, diastolic CHF, chronic atrial fibrillation on warfarin, T2DM, CKD stage III, HTN, chronic pain, history of PE/DVT, history of MRSA who presents to ED status post fall yesterday along with worsened left lower extremity pain and swelling. She presents from [facility]. She sustained a fall in the shower yesterday where she describes aide left go of her belt and she fell on her L side. She has been having increased swelling and pain to the LLE. She recalls the fall and did not lose consciousness. She denies syncope. Overall she feels, "horrible." Complains of nausea and emesis x 1 in ED. She denies any f/c/s, dizziness, lightheaded, chest pain, sob, cough, palpitations. She is alert and oriented to surroundings but to conversation she appears confused. According to [facility] records she has been treated for a bronchopneumonia end of november early december with Augmentin. She is on warfarin and her INR was 4.1 yesterday. Her warfarin has been held. In ED upon my evaluation she was hemodynamically unstable with SBP in 70s and HR > 100. She received 1L of IVF bolus which impoved SBP into 120s. Lab work revealed leukocytosis 14.8 AK, H&H 12.7 and 37.7, platelet 180, INR 4.6, sodium 133, K4.6, chloride 97, BUN 46, Cr 1.6, mag 3.7. She had multiple imaging including head CT x 2 negative for bleed. Repeat scan done due to worsening KUMARI during evaluation. Cspine, Femur xray, Knee Xray, Tib/fib xray negative for acute fracture. In ED she received 1g IV rocephin, mg IV vitamin K, and 1L IVF. Allergies Allergy/AdvReac Type Severity Reaction Status Date / Time acetaminophen [From Percocet] Allergy Unknown Unknown Verified 01/22/20 11:35 meperidine [From Demerol] Allergy Unknown ON Verified 01/22/20 11:35 HILL LIST morphine AdvReac Intermediate vomiting Verified 01/22/20 11:35 oxycodone AdvReac Intermediate vomit blood Verified 01/22/20 11:35 propoxyphene AdvReac Intermediate abd vomit Verified 01/22/20 11:35 blood tramadol AdvReac Intermediate vomiting Verified 12/25/19 23:09 Bactrim AdvReac Mild GI SYMPTOMS Verified 03/06/18 21:06 codeine AdvReac Mild vomiting Verified 01/22/20 11:35 olmesartan AdvReac Mild GI SYMPTOMS Verified 12/25/19 23:09 Sulfa (Sulfonamide AdvReac Mild GI SYMPTOMS Verified 01/22/20 11:35 Antibiotics) sulfamethoxazole AdvReac Mild GI SYMPTOMS Verified 01/22/20 11:35 trimethoprim AdvReac Mild GI SYMPTOMS Verified 01/22/20 11:35 carisoprodol AdvReac Unknown GI SYMPTOMS Verified 12/10/19 14:37 Home Medications Home Medications Medication Instructions Recorded Confirmed Type acetaminophen [Tylenol] 650 mg PO Q4 PRN 11/01/18 01/22/20 History allopurinol 200 mg PO QAM 11/01/18 01/22/20 History colchicine 0.6 mg PO QAM 11/01/18 01/22/20 History docusate sodium [Colace] 100 mg PO BID 11/01/18 01/22/20 History duloxetine 60 mg PO QAM 11/01/18 01/22/20 History levothyroxine 75 mcg PO DAILYBB 11/01/18 01/22/20 History meclizine 25 mg PO TID PRN 11/01/18 01/22/20 History melatonin 10 mg PO HS 11/01/18 01/22/20 History montelukast 10 mg PO PM 11/01/18 01/22/20 History ondansetron HCl [Zofran] 8 mg PO Q8 PRN 11/01/18 01/22/20 History pregabalin [Lyrica] 50 mg PO TIDM 11/01/18 01/22/20 History sucralfate 1 g PO AMPM 11/01/18 01/22/20 History simethicone [Gas Relief 180 mg PO DAILY PRN 12/27/18 01/22/20 History (simethicone)] Incruse Ellipta 1 inh INHALATION QAM 01/11/19 01/22/20 History sennosides [senna] 8.6 mg PO BID 01/11/19 01/22/20 History magnesium oxide 250 mg PO DAILY tab 06/10/19 01/22/20 History cholecalciferol (vitamin D3) 25 1,000 units PO DAILY 06/11/19 01/22/20 History mcg (1,000 unit) capsule digoxin 125 mcg (0.125 mg) tablet 125 mcg PO MOWEFR 06/11/19 01/22/20 History spironolactone 25 mg tablet 25 mg PO QAM tab 06/11/19 01/22/20 History trazodone 50 mg tablet 25 mg PO DAILY 06/11/19 01/22/20 History Desenex 1 applic TOPICAL TID 07/03/19 01/22/20 History betamethasone dipropionate 1 applic TOPICAL BID PRN 07/03/19 01/22/20 History buspirone 10 mg PO BID 07/09/19 01/22/20 History metoprolol succinate [Toprol XL] 100 mg PO BID 07/09/19 01/22/20 History benzocaine-menthol [Cepacol Sore 1 huan PO .Q2HRS PRN PRN 12/25/19 01/22/20 History Throat (nataliia-men)] famotidine [Pepcid] 20 mg PO BID 12/25/19 01/22/20 History fentanyl [Duragesic] 25 mcg TOPICAL [id number] 12/25/19 01/22/20 History fluticasone propion-salmeterol 1 ea INHALATION BID 12/25/19 01/22/20 History [Advair Diskus] furosemide [Lasix] 80 mg PO DAILY 12/25/19 01/22/20 History guaifenesin [Mucinex] 600 mg PO BID 12/25/19 01/22/20 History guaifenesin [Siltussin SA] 200 mg PO Q4 PRN 12/25/19 01/22/20 History metolazone 2.5 mg PO WESA 12/25/19 01/22/20 History potassium chloride 10 meq PO DAILY 12/25/19 01/22/20 History trazodone 50 mg PO HS 12/25/19 01/22/20 History glucosamine-chondroitin 1 tab PO TID 01/22/20 01/22/20 History levalbuterol HCl [Xopenex] 0.63 mg INHALATION Q4H PRN 01/22/20 01/22/20 History polyvinyl alcohol-povidon(PF) 2 drp OPB TID 01/22/20 01/22/20 History [Refresh Classic (PF)] warfarin 1 mg PO UD 01/22/20 01/22/20 History Past Med/Surg History Medical History Acute kidney injury superimposed on CKD Anxiety (Chronic) Arthritis (Chronic) Asthma (Chronic) Atrial fibrillation (Chronic) Chronic back pain (Chronic) Chronic gastritis (Chronic) Chronic pain (Chronic) Chronic respiratory failure (Acute) CKD (chronic kidney disease), stage III (Chronic) COPD (chronic obstructive pulmonary disease) Diastolic CHF (Chronic) On 02/12/16 22:20 Ellie Bains wrote "per echo 09/30/15- EF 60-65%, mod LVH, mod MR, mod TR, dilated RV" DJD (degenerative joint disease), multiple sites (Chronic) DM type 2 (diabetes mellitus, type 2) (Chronic) DM2 (diabetes mellitus, type 2) (Chronic) Generalized anxiety disorder (Chronic) GERD (gastroesophageal reflux disease) (Chronic) History of pulmonary embolism (Chronic) HTN (hypertension) (Chronic) Hypertension (Chronic) Hyperuricemia (Chronic) Hypothyroidism (Chronic) Intertrigo Obesity (BMI 30-39.9) (Chronic) Stenosis of right carotid artery (Chronic) Surgical History History of hernia repair (Chronic) Status post cholecystectomy (Chronic) "Dr. Beavers [facility] 12/27/17" Family History Father Hypertension Diabetes Social History Preferred Language: Portuguese Communication Ability: Impaired Communication Ability Comment: Pt confused Transfer And [employer]umph[employer] Operator Required: No Beliefs That Will Affect Care: None marital status: / Current Living Situation: Halfway Current Living Situation Comment: [facility] Feels Safe at Home: Yes Smoking Status: Never smoker Second Hand Exposure: No ; Hx Alcohol Use: No Hx Substance Use: No Review of Systems Review of Systems: All systems reviewed & are unremarkable except as noted in Subjective Physical Exam Physical Exam: Constitutional: Elderly, F, lethargic, pale and drowsy, vitals as above, NAD, answers questions approp Head: Normocephalic, Atraumatic Eyes: PERRL, conjunctivae normal, anicteric sclerae ENMT: external ear and nose normal, oropharynx normal dry mucous membranes Neck: trachea midline, no thyromegaly normal visual inspection Respiratory: normal respiratory effort, lungs clear to auscultation, no wheeze, rales, rhonchi. Normal insp/exp effort, no accessory muscle use Cardiovascular: Irr/Irr, no murmur, Vessels: no JVD or carotid bruit Chest: normal inspection of chest Abdomen: obese abdomen, normal bowel sounds, soft, nontender, no hepatosplenomegaly Musculoskeletal: + edema and ecchymosis to LLE, L > R, +1 pulse b/l, b/l feet cool but cap refill normal, no cyanosis or clubbing, extremities motor strength 4/5 upper ext, unable to assess lower ext due to pain Skin: significant ecchymosis on b/l upper and lower ext, b/l erythematous rash under breast and panus, warm and dry moderate turgor Neurologic: PERRL, EOMI, accommodation nl, no face palsy, no dysarthria CN's II-XI intact bilaterally and moves all extremities Psychiatric: A+Ox3 but minimal, euthymic affect Lymphatic: no cervical or axillary lymphadenopathy : deferred Results & Data Results & Data ([facility]) Vital Signs (Past 12 Hours) Vital Signs Temp Pulse Pulse Resp BP BP Pulse Ox 01/22/20 15:29 99 H 22 121/90 01/22/20 15:14 95 H 21 75/56 L 01/22/20 15:00 95 H 18 78/47 L 01/22/20 14:58 91 H 20 76/43 L 01/22/20 14:57 89 20 70/46 L 01/22/20 14:30 97 H 17 70/48 L 01/22/20 14:29 98 H 16 77/50 L 01/22/20 14:27 108 H 19 77/50 L 01/22/20 14:20 98 H 22 74/48 L 01/22/20 14:18 98 H 16 01/22/20 13:26 94 01/22/20 13:20 102 H 16 92/63 L 94 01/22/20 12:11 94 H 16 86/44 L 01/22/20 10:24 36.7 C 88 20 108/68 93 Laboratory Results Short CBC 01/22/20 01/22/20 Range/Units 11:28 11:28 WBC 14.88 H (4.8-10.8) K/uL Hgb 12.7 (12.0-16.0) g/dL Hct 37.7 (37-47) % Plt Count 180 (130-400) K/uL BUN 46 H (7-18) mg/dl Creatinine 1.60 H (0.6-1.2) mg/dl BMP 01/22/20 11:28 Sodium 133 L Potassium 4.6 Chloride 97 L Carbon Dioxide 31 BUN 46 H Creatinine 1.60 H Glucose 134 H Calcium 8.9 Cardiac Enzymes 01/22/20 Range/Units 11:28 Total Creatine Kinase 32 (26-192) U/L Troponin I < 0.015 (0-0.045) ng/ml Liver Function 01/22/20 Range/Units 11:28 Total Bilirubin 0.6 (0.2-1) mg/dl AST 17 (15-37) U/L ALT 19 (12-78) U/L Alkaline Phosphatase 117 (45-117) U/L Albumin 2.9 L (3.4-5.0) gm/dl Diagnostic Findings Cspine CT: IMPRESSION: No fractures within the cervical spine. Degenerative change CXR: IMPRESSION: Chronic change. No acute process. Femur Xray: IMPRESSION: Degenerative change. No acute process. Head CT: Impression: No acute intracranial abnormality. Knee Xray: IMPRESSION: Severe degenerative change. No acute bony abnormality. Tib/Fib Xray: IMPRESSION: Mild soft tissue edema. Degenerative change. No acute bony abnormality. Lower Extremity CTA: IMPRESSION: 1. Large mixed attenuating hematoma of the posterior subcutaneous left lower leg measures up to 33.8 cm in greatest dimension and demonstrates several areas of active extravasation. No intramuscular hematoma. 2. Demineralized appearance the bones with multifocal osteoarthritis. No acute fracture or dislocation identified. 3. Moderate joint effusion of the knee. Abd/Pelvis: IMPRESSION: 1. No acute intra-abdominal or intrapelvic abnormality. 2. No acute fracture. 3. Chronic findings as above. Medications Administered Discontinued Medications Ceftriaxone Sodium (Rocephin) 1,000 mg in 50 mls @ 100 mls/hr IV NOW STA Stop: 01/22/20 14:25 Last Infusion: 01/22/20 15:24 Dose: 0 mls/hr Documented by: [id number] Admin: 01/22/20 14:26 Dose: 100 mls/hr Documented by: [id number] Sodium Chloride (Nss) 500 mls @ 999 mls/hr IV .Q31M ONE Stop: 01/22/20 14:56 Last Infusion: 01/22/20 15:24 Dose: 0 mls/hr Documented by: [id number] Admin: 01/22/20 14:44 Dose: 999 mls/hr Documented by: [id number] Sodium Chloride (Nss) 500 mls @ 999 mls/hr IV .Q31M ONE Stop: 01/22/20 15:05 Last Infusion: 01/22/20 15:24 Dose: 0 mls/hr Documented by: [id number] Admin: 01/22/20 14:44 Dose: 999 mls/hr Documented by: [id number] Phytonadione 5 mg/ Sodium (Chloride) 50.5 mls @ 101 mls/hr IV ONE ONE Stop: 01/22/20 15:34 Last Infusion: 01/22/20 16:03 Dose: 0 mls/hr Documented by: [id number] Admin: 01/22/20 15:26 Dose: 101 mls/hr Documented by: [id number] Ondansetron HCl (Zofran) Confirm Administered Dose 4 mg .ROUTE .STK-MED ONE Stop: 01/22/20 14:22 Last Admin: 01/22/20 14:26 Dose: 4 mg Documented by: [id number] ECG Rate (beats per minute): 86 Rhythm: atrial fibrillation Supervising Physician Co-Signing Physician Notes I have seen and examined the patient and have discussed the case with the provider above. I agree with the assessment and plan as stated with the following exceptions. 79 yo F presented with an enlarging hematoma of her left lower leg after a fall in the shower yesterday. She is on coumadin with an INR 4.6. After a couple of hours in the ER today she became hypotensive and developed altered mental status, which appeared consistent with hypovolemic shock. She was tachycardic in the low 100s. She was nautious and reported feeling horrible. Vitamin K 5mg IV was given. She had a Fentanyl patch on that was removed (placement labeled 01/19). BP responded to 1L IVF and SBP demond to 136. She was sent for a CT scan of her abdomen/pelvis and left lower leg, all with contrast despite noted ROSEY. On the way out the door, a repeat head CT was ordered for new confusion and a worsening of her headache. She returned to the ER and BP again dropped. NSS 500cc bolus was given. Repeat Hb revealed a drop from 12.7 to 8.1 within 4 hours so two units of blood were started, and Kcentra was given. Abdominal imaging was negative for acute bleeding. LLE CTA revealed a large superficial bleed. I contacted trauma surgery in [place] and discussed the case. Guidance was given to apply compression to the extremity in addition to the efforts ongoing to reverse the anticoagulation and provide hemodynamic support. During the wrapping process, however, her skin spontaneously ruptured and caused a massive blood loss from the leg. Gel foam and ABDs with compression was reapplied. Ortho agreed with this plan and had no plans to operate on her for now. Pain was treated with Tylenol, which we will cont to schedule in an effort to avoid the need for narcotics which may contribute to the persistent hypotension. Fentanyl can be reapplied over the next 1-2 days after her BP stabilizes. On physical exam, she was lethargic with waxing and waning mental status. Lungs were clear to auscultation and she was in no respiratory distress. Heart exam as above. No TTP of chest/body wall. Ecchymosis from BP cuff on the right upper arm present. Limited ability to flex the right shoulder forward and pain associated with this maneuver. Palpable pulses in bilateral feet which were warm and appeared well perfused. Right wrist and shoulder xrays performed revealed no evidence of fracture. OA was seen in R shoulder joint. After first unit of pRBCs, given in the ER, her BP demond to >100 systolic. She will be admitted to the PCU and receive another unit of pRBCs with two on hold. Repeat H/H and INR planned around 8pm. Signed out case to tube maker who will take over management. Sister was present for most of the events above and remained up to date with the plan. The patient is a confirmed DNR and sister verbalized agreement with that based on previous conversations they have had. Although the patient was OK with receiving pressors if needed, this was not offered for now at least, to avoiding further reduction in tissue perfusion. DO Malcom (1) Atrial fibrillation Atrial fibrillation type: unspecified Qualified Code(s): I48.91 - Unspecified atrial fibrillation (2) Hematoma of left lower extremity Encounter type: initial encounter Qualified Code(s): S80.12XA - Contusion of left lower leg, initial encounter (3) Fall Encounter type: initial encounter Qualified Code(s): W19.XXXA - Unspecified fall, initial encounter
--- NOTE | 2020-01-22 16:01 | CT Scan Report ---
CT head/brain wo con CLINICAL HISTORY: 79 years-old Female with Repeat worsening headache. Acute headache TECHNIQUE: Multiple axial CT images of the head were obtained without contrast. A dose lowering tech nique was utilized adhering to the principles of ALARA. CT DOSE: 1228.53 mGy.cm COMPARISON: Head CT of same day at 11:37 AM, 12/25/2019 FINDINGS: Motion degraded exam. Mild age-related involutional changes with patchy white matter hypodensities oconnor ggestive of chronic microvascular ischemic disease. Cerebral vascular calcifications also noted. No a cute intracranial hemorrhage, midline shift, intracranial mass, hydrocephalus, territorial ischemia o r abnormal extra-axial collection. The calvarium is intact. Prior bilateral lens replacement. The paranasal sinuses, mastoid air cells, and middle ear cavities are clear. IMPRESSION: Motion degraded exam without acute intracranial abnormality identified. ACT 112: Negative or not required by law. The above report was generated using voice recognition software. It may contain grammatical, syntax o r spelling errors. Electronically signed by: Roberto Potts M.D. 01/22/2020 4:00 PM
[2020-01-22] MEDS ORDERED: OPTIRAY 320 125ml IV PRN (16:06)
[2020-01-22] MEDS ORDERED: SODIUM CHLORIDE 0.9% 1000ML 500 ML IV ONE (16:31)
[2020-01-22 16:36] LABS: Hematocrit (blood only) 24.2 % (37-47); Hemoglobin 8.1 g/dL (12.0-16.0); Mean Corpuscular Hemoglobin 35.4 pg (25-34); Mean Corpuscular Hgb Conc 33.5 g/dL (32-36); Mean Corpuscular Volume 105.7 fL (80-100); Mean Platelet Volume 10.6 fL (7.4-10.4); Platelet Count 137 K/uL (130-400); RDW Standard Deviation 56.7 fL (36.4-46.3); Red Blood Count 2.29 M/uL (4.2-5.4); White Blood Count 17.52 K/uL (4.8-10.8)
--- NOTE | 2020-01-22 16:37 | Orthopedic Consultation ---
Date of Consultation January 22, 2020 Assessment & Plan (1) Hematoma of left lower extremity: I reviewed this case with Dr Rasheed as Dr Small was in the operating room. We are recommending patient be admitted to medicine for observation and optimize INRs to therapeutic range. Patient was given IV vit K and IV x 1dose Rocephin in ED. We are recommending NV checks every hour to LLE. Suspicion of compartment syndrome is low based on exam and CT angiogram of LLE. Still awaiting official read but there appears to be a large extrafacial subcutaneous hematoma to LLE without vascular compromise. May consider surgical evacuation of hematoma at a later date once INRs become more therapeutic. Dr Small will plan to see patient after the OR for further evaluation and recommendations. I, Dr. Small, saw and examined the patient and discussed the management with my PA. I reviewed my PAs note and agree with the documented findings and the plan of care I developed. As part of the skin has broken decompressing part of the hematoma, would continue with covering the wound with an ABD and reinforcing as needed. May continue with the Joce bandage. No plans for surgical decompression at this time, the patient's INR needs to be normalized and become hemodynamically stable. Continue care per the primary service. She may be weightbearing as tolerated on the left lower extremity. Present on Admission?: Yes History of Present Illness Reason for Consultation: Left leg hematoma/possible compartment syndrom Requesting Physician: Dr Small History of Present Illness 79-year-old female who presented to the emergency department with her sister because of swelling and ecchymosis of her left leg. The patient sustained a fall last evening at her personal assisted. She takes Coumadin and over the last 24 hours has noticed increased swelling and pain in her left lower extremity. She says that at rest she is in no pain, but with movement her left lower leg hurts. She says she has slight numbness to top of her left foot. Per ER doctor, since she presented to ED her left lower extremity swelling has worsened. \\ Per hospital PA-C, patient became hemodynamically unstable with SBP in 70s and HR > 100. She was given 1L of IVF bolus which improved SBP into 120s. Lab work revealed leukocytosis 14.8 AK, H&H 12.7 and 37.7, platelet 180, INR 4.6 , sodium 133, K4.6, chloride 97, BUN 46, Cr 1.6, mag 3.7. She had multiple imaging including head CT x 2 negative for bleed. Repeat scan done due to worsening KUMARI during evaluation. C-spine, Femur x-ray, Knee X-ray, Tib/fib x-ray negative for acute fracture. Awaiting final read of CT angiogram o f LLE. In ED she received 1g IV Rocephin, mg IV vitamin K, and 1L IVF Allergies Allergy/AdvReac Type Severity Reaction Status Date / Time acetaminophen [From Percocet] Allergy Unknown Unknown Verified 01/22/20 11:35 meperidine [From Demerol] Allergy Unknown ON WINDY Verified 01/22/20 11:35 HILL LIST morphine AdvReac Intermediate vomiting Verified 01/22/20 11:35 oxycodone AdvReac Intermediate vomit blood Verified 01/22/20 11:35 propoxyphene AdvReac Intermediate abd vomit Verified 01/22/20 11:35 blood tramadol AdvReac Intermediate vomiting Verified 12/25/19 23:09 Bactrim AdvReac Mild GI SYMPTOMS Verified 03/06/18 21:06 codeine AdvReac Mild vomiting Verified 01/22/20 11:35 olmesartan AdvReac Mild GI SYMPTOMS Verified 12/25/19 23:09 Sulfa (Sulfonamide AdvReac Mild GI SYMPTOMS Verified 01/22/20 11:35 Antibiotics) sulfamethoxazole AdvReac Mild GI SYMPTOMS Verified 01/22/20 11:35 trimethoprim AdvReac Mild GI SYMPTOMS Verified 01/22/20 11:35 carisoprodol AdvReac Unknown GI SYMPTOMS Verified 12/10/19 14:37 Home Medications Home Medications Medication Instructions Recorded Confirmed Type acetaminophen [Tylenol] 650 mg PO Q4 PRN 11/01/18 01/22/20 History allopurinol 200 mg PO QAM 11/01/18 01/22/20 History colchicine 0.6 mg PO QAM 11/01/18 01/22/20 History docusate sodium [Colace] 100 mg PO BID 11/01/18 01/22/20 History duloxetine 60 mg PO QAM 11/01/18 01/22/20 History levothyroxine 75 mcg PO DAILYBB 11/01/18 01/22/20 History meclizine 25 mg PO TID PRN 11/01/18 01/22/20 History melatonin 10 mg PO HS 11/01/18 01/22/20 History montelukast 10 mg PO PM 11/01/18 01/22/20 History ondansetron HCl [Zofran] 8 mg PO Q8 PRN 11/01/18 01/22/20 History pregabalin [Lyrica] 50 mg PO TIDM 11/01/18 01/22/20 History sucralfate 1 g PO AMPM 11/01/18 01/22/20 History simethicone [Gas Relief 180 mg PO DAILY PRN 12/27/18 01/22/20 History (simethicone)] Incruse Ellipta 1 inh INHALATION QAM 01/11/19 01/22/20 History sennosides [senna] 8.6 mg PO BID 01/11/19 01/22/20 History magnesium oxide 250 mg PO DAILY tab 06/10/19 01/22/20 History cholecalciferol (vitamin D3) 25 1,000 units PO DAILY 06/11/19 01/22/20 History mcg (1,000 unit) capsule digoxin 125 mcg (0.125 mg) tablet 125 mcg PO MOWEFR 06/11/19 01/22/20 History spironolactone 25 mg tablet 25 mg PO QAM tab 06/11/19 01/22/20 History trazodone 50 mg tablet 25 mg PO DAILY 06/11/19 01/22/20 History Desenex 1 applic TOPICAL TID 07/03/19 01/22/20 History betamethasone dipropionate 1 applic TOPICAL BID PRN 07/03/19 01/22/20 History buspirone 10 mg PO BID 07/09/19 01/22/20 History metoprolol succinate [Toprol XL] 100 mg PO BID 07/09/19 01/22/20 History benzocaine-menthol [Cepacol Sore 1 huan PO .Q2HRS PRN PRN 12/25/19 01/22/20 History Throat (nataliia-men)] famotidine [Pepcid] 20 mg PO BID 12/25/19 01/22/20 History fentanyl [Duragesic] 25 mcg TOPICAL [id number] 12/25/19 01/22/20 History fluticasone propion-salmeterol 1 ea INHALATION BID 12/25/19 01/22/20 History [Advair Diskus] furosemide [Lasix] 80 mg PO DAILY 12/25/19 01/22/20 History guaifenesin [Mucinex] 600 mg PO BID 12/25/19 01/22/20 History guaifenesin [Siltussin SA] 200 mg PO Q4 PRN 12/25/19 01/22/20 History metolazone 2.5 mg PO WESA 12/25/19 01/22/20 History potassium chloride 10 meq PO DAILY 12/25/19 01/22/20 History trazodone 50 mg PO HS 12/25/19 01/22/20 History glucosamine-chondroitin 1 tab PO TID 01/22/20 01/22/20 History levalbuterol HCl [Xopenex] 0.63 mg INHALATION Q4H PRN 01/22/20 01/22/20 History polyvinyl alcohol-povidon(PF) 2 drp OPB TID 01/22/20 01/22/20 History [Refresh Classic (PF)] warfarin 1 mg PO UD 01/22/20 01/22/20 History Patient History Medical History Acute kidney injury superimposed on CKD Anxiety (Chronic) Arthritis (Chronic) Asthma (Chronic) Atrial fibrillation (Chronic) Chronic back pain (Chronic) Chronic gastritis (Chronic) Chronic pain (Chronic) Chronic respiratory failure (Acute) CKD (chronic kidney disease), stage III (Chronic) COPD (chronic obstructive pulmonary disease) Diastolic CHF (Chronic) On 02/12/16 22:20 Ellie Bains wrote "per echo 09/30/15- EF 60-65%, mod LVH, mod MR, mod TR, dilated RV" DJD (degenerative joint disease), multiple sites (Chronic) DM type 2 (diabetes mellitus, type 2) (Chronic) DM2 (diabetes mellitus, type 2) (Chronic) Generalized anxiety disorder (Chronic) GERD (gastroesophageal reflux disease) (Chronic) History of pulmonary embolism (Chronic) HTN (hypertension) (Chronic) Hypertension (Chronic) Hyperuricemia (Chronic) Hypothyroidism (Chronic) Intertrigo Obesity (BMI 30-39.9) (Chronic) Stenosis of right carotid artery (Chronic) Surgical History History of hernia repair (Chronic) Status post cholecystectomy (Chronic) "Dr. Beavers [facility] 12/27/17" Family History Father Hypertension Diabetes Social History Preferred Language: Kyrgyz Communication Ability: Impaired Communication Ability Comment: Pt confused Sales And Marketing Director Required: No Beliefs That Will Affect Care: None marital status: / Current Living Situation: [facility] Current Living Situation Comment: [facility] Feels Safe at Home: Yes Smoking Status: Never smoker Second Hand Exposure: No ; Hx Alcohol Use: No Hx Substance Use: No Review of Systems Review of Systems: All systems reviewed & are unremarkable except as noted in HPI & below Physical Exam Physical Exam: Musculoskeletal: + edema and significant ecchymosis to LLE, mainly localized to mid calf area. Large blood blister to calf overlying hematoma. Noted ecchymosis and edema to RLE to a lesser degree. At rest patient without pain to LLE. With movement of left leg at knee and positioning has increased generalized pain to LLE. PROM of left great toe in extension and flexion without pain. PROM dorsiflexion of left ankle without pain. PROM plantarflexion of left ankle with calf pain. Patient able to wiggle toes and ankle. Skin: B LE normal warmth to touch. no pallor. Neurovascular: +1 pulse DP and PT pulses = BLE, decreased capillary refill 2+ seconds = BLE, no cyanosis or clubbing, Altered sensation to top of left foot and left posterior calf to area of hematoma and blood blister, otherwise intact. Dr. Small's LLE exam: BCR < 2 sec. able to wiggle her toes up and down. Sensation to light touch distally intact. The Jcoe bandage around her calf and lower leg was removed showing decompression of the medial swelling with a appea rs to be a skin tear. There is no active bleeding. There is significant bruising of the calf. The larger hematoma over the lateral aspect of the calf has more durable skin overlying it. The calf is otherwise soft. Results & Data ([facility]) Vital Signs (Past 12 Hours) Vital Signs Temp Pulse Pulse Resp BP BP Pulse Ox 01/22/20 15:31 98 H 21 136/56 L 01/22/20 15:30 101 H 18 01/22/20 15:29 99 H 22 121/90 01/22/20 15:14 95 H 21 75/56 L 01/22/20 15:00 95 H 18 78/47 L 01/22/20 14:58 91 H 20 76/43 L 01/22/20 14:57 89 20 70/46 L 01/22/20 14:30 97 H 17 70/48 L 01/22/20 14:29 98 H 16 77/50 L 01/22/20 14:27 108 H 19 77/50 L 01/22/20 14:20 98 H 22 74/48 L 01/22/20 14:18 98 H 16 01/22/20 13:26 94 01/22/20 13:20 102 H 16 92/63 L 94 01/22/20 12:11 94 H 16 86/44 L 01/22/20 10:24 36.7 C 88 20 108/68 93 Laboratory Results 01/22/20 01/22/20 01/22/20 Range/Units 16:19 16:19 11:28 WBC 17.52 H (4.8-10.8) K/uL RBC 2.29 L (4.2-5.4) M/uL Hgb 8.1 L D (12.0-16.0) g/dL Hct 24.2 L (37-47) % MCV 105.7 H (80-100) fL MCH 35.4 H (25-34) pg MCHC 33.5 (32-36) g/dL RDW Std Deviation 56.7 H (36.4-46.3) fL RDW Coeff of Kenneth 15.0 H (11.5-14.5) % Plt Count 137 (130-400) K/uL MPV 10.6 H (7.4-10.4) fL Immature Gran % (Auto) % Neut % (Auto) % Lymph % (Auto) % Love % (Auto) % Eos % (Auto) % Baso % (Auto) % Immature Gran # (Auto) (0.00-0.02) K/uL Neut # (Auto) (1.4-6.5) K/uL Lymph # (Auto) (1.2-3.4) K/uL Love # (Auto) (0.11-0.59) K/uL Eos # (Auto) (0-0.5) K/uL Baso # (Auto) (0-0.2) K/uL PT (9.0-12.0) Seconds INR (0.9-1.1) APTT (21.0-31.0) Seconds PTT Ratio Sodium 133 L (136-145) mmol/L Potassium 4.6 (3.5-5.1) mmol/L Chloride 97 L (98-107) mmol/L Carbon Dioxide 31 (21-32) mmol/L Anion Gap 5.0 (3-11) BUN 46 H (7-18) mg/dl Creatinine 1.60 H (0.6-1.2) mg/dl Est Cr Clr Drug Dosing 38.5 ml/min Est GFR ( Amer) 35.4 Est GFR (Non-Af Amer) 30.5 BUN/Creatinine Ratio 28.9 H (10-20) Glucose 134 H (70-99) mg/dl Lactate 2.0 (0.4-2.0) mmol/L Calcium 8.9 (8.5-10.1) mg/dl Magnesium 3.7 H (1.8-2.4) mg/dl Total Bilirubin 0.6 (0.2-1) mg/dl AST 17 (15-37) U/L ALT 19 (12-78) U/L Alkaline Phosphatase 117 (45-117) U/L Total Creatine Kinase 32 (26-192) U/L Troponin I < 0.015 (0-0.045) ng/ml Total Protein 6.4 (6.4-8.2) gm/dl Albumin 2.9 L (3.4-5.0) gm/dl Globulin 3.5 (2.5-4.0) gm/dl Albumin/Globulin Ratio 0.8 L (0.9-2) TSH 2.530 (0.300-4.500) uIu/ml 01/22/20 01/22/20 Range/Units 11:28 11:28 WBC 14.88 H (4.8-10.8) K/uL RBC 3.59 L (4.2-5.4) M/uL Hgb 12.7 (12.0-16.0) g/dL Hct 37.7 (37-47) % MCV 105.0 H (80-100) fL MCH 35.4 H (25-34) pg MCHC 33.7 (32-36) g/dL RDW Std Deviation 56.9 H (36.4-46.3) fL RDW Coeff of Kenneth 14.9 H (11.5-14.5) % Plt Count 180 (130-400) K/uL MPV 11.0 H (7.4-10.4) fL Immature Gran % (Auto) 0.2 % Neut % (Auto) 85.7 % Lymph % (Auto) 8.8 % Love % (Auto) 4.3 % Eos % (Auto) 0.9 % Baso % (Auto) 0.1 % Immature Gran # (Auto) 0.03 H (0.00-0.02) K/uL Neut # (Auto) 12.75 H (1.4-6.5) K/uL Lymph # (Auto) 1.31 (1.2-3.4) K/uL Love # (Auto) 0.64 H (0.11-0.59) K/uL Eos # (Auto) 0.13 (0-0.5) K/uL Baso # (Auto) 0.02 (0-0.2) K/uL PT 44.3 H (9.0-12.0) Seconds INR 4.6 H (0.9-1.1) APTT 49.1 H* (21.0-31.0) Seconds PTT Ratio 1.8 Sodium (136-145) mmol/L Potassium (3.5-5.1) mmol/L Chloride (98-107) mmol/L Carbon Dioxide (21-32) mmol/L Anion Gap (3-11) BUN (7-18) mg/dl Creatinine (0.6-1.2) mg/dl Est Cr Clr Drug Dosing ml/min Est GFR ( Amer) Est GFR (Non-Af Amer) BUN/Creatinine Ratio (10-20) Glucose (70-99) mg/dl Lactate (0.4-2.0) mmol/L Calcium (8.5-10.1) mg/dl Magnesium (1.8-2.4) mg/dl Total Bilirubin (0.2-1) mg/dl AST (15-37) U/L ALT (12-78) U/L Alkaline Phosphatase (45-117) U/L Total Creatine Kinase (26-192) U/L Troponin I (0-0.045) ng/ml Total Protein (6.4-8.2) gm/dl Albumin (3.4-5.0) gm/dl Globulin (2.5-4.0) gm/dl Albumin/Globulin Ratio (0.9-2) TSH (0.300-4.500) uIu/ml Diagnostic Findings XR tibia fibula LT 2V CLINICAL HISTORY: fall trauma COMPARISON: None. DISCUSSION: The bones and joint spaces appear intact. There is no evidence of fracture, dislocation or bony disease. Significant degenerative changes left knee. IMPRESSION: Mild soft tissue edema. Degenerative change. No acute bony abnormality. XR knee LT 1 or 2V routine CLINICAL HISTORY: fall trauma. Pain. COMPARISON: None. DISCUSSION: Severe degenerative change all major joint compartments. Sclerosis of the articular surfaces. Lateral osteophytic changes throughout. No significant joint effusion. Degenerative changes of the patellofemoral joint is present. There is no evidence for soft tissue swelling. IMPRESSION: Severe degenerative change. No acute bony abnormality. XR knee LT 1 or 2V routine CLINICAL HISTORY: fall trauma. Pain. COMPARISON: None. DISCUSSION: Severe degenerative change all major joint compartments. Sclerosis of the articular surfaces. Lateral osteophytic changes throughout. No significant joint effusion. Degenerative changes of the patellofemoral joint is present. There is no evidence for soft tissue swelling. IMPRESSION: Severe degenerative change. No acute bony abnormality. CT angio LE LT w inc wo if don HISTORY: 79 years-old Female fall acute left lower leg pain status post fall COMPARISON: CT abdomen and pelvis of same day TECHNIQUE: CTA of the left lower leg was obtained following the intravenous administration of Optiray 300. 3-D coronal and sagittal MIPS were obtained from the axial data set and were submitted for review. All measurements were obtained according to NASCET criteria. A dose lowering technique was used consistent with the principals of TWAN. FINDINGS: Moderate atrophy of the musculature. There is a large mixed attenuating hematoma involving the posterior subcutaneous left lower leg with areas of active extravasation noted on images 155, 194 and 229 of series 3 which overall measures 33.8 x 6.1 x 19.2 cm in transverse, AP and craniocaudal dimensions. Moderate diffuse subcutaneous edema. No intramuscular hemorrhage. Study is motion degraded. The popliteal artery, tibioperoneal trunk, anterior tibial, posterior tibial and peroneal arteries appear patent. There is diminished flow within the anterior tibial artery at the level of the lower leg. Moderate multifocal mixed plaque. Moderate sized effusion of the knee. Osteoarthritis of the knee and ankle with severe joint space narrowing of the medial compartment of the knee. Demineralized appearance of the bones. No acute fracture. IMPRESSION: 1. Large mixed attenuating hematoma of the posterior subcutaneous left lower leg measures up to 33.8 cm in greatest dimension and demonstrates several areas of active extravasation. No intramuscular hematoma. 2. Demineralized appearance the bones with multifocal osteoarthritis. No acute fracture or dislocation identified. 3. Moderate joint effusion of the knee. (1) Hematoma of left lower extremity Encounter type: initial encounter Qualified Code(s): S80.12XA - Contusion of left lower leg, initial encounter
--- NOTE | 2020-01-22 16:48 | CT Scan Report ---
ABDOMEN AND PELVIS CT WITH IV CONTRAST CT DOSE: 2379.07 mGy.cm HISTORY: Acute abdominal trauma status post fall fall TECHNIQUE: Multiaxial CT images of the abdomen and pelvis were performed following the IV administrat ion of Optiray 320, A dose lowering technique was utilized adhering to the principles of ALARA. COMPARISON STUDY: CT abdomen and pelvis 07/09/2019. FINDINGS: Limited study secondary to upper extremity positioning. Linear bibasilar subsegmental consolidative o pacities suggest atelectasis/scarring. 4 mm solid pulmonary nodule of the basal left lower lobe is un changed. 2 mm solid nodule of the right lower lobe is also present. There is no pneumatosis or pneumo peritoneum. The imaged inferior cardiac chambers are moderately enlarged. Coronary artery calcificati ons. Spleen and adrenal glands are unremarkable. Moderate generalized pancreatic atrophy. Cholecystectomy. Unremarkable appearance of the liver. Patency of the hepatic and portal veins. Mildly prominent unique portal lymph nodes are likely reactive. Diffuse cortical thinning of the bilateral kidneys. No renal or ureteral calculi or obstructive uropathy. Mild wall thickening of the bladder with partial distent ion. Atrophic appearance of the uterus. Cystic structure of the right adnexum measuring 3.3 cm is unc hanged. Moderate calcified plaque of the abdominal aorta without aneurysm. No pathologically enlarged lymph nodes. No bowel obstruction or bowel wall thickening. No ascites or mesenteric inflammation. Colonic diverti culosis without acute diverticulitis. Visualized appendix appears unremarkable. Diastases recti with postoperative changes of the ventral abdominal wall. Demineralized appearance of the bones with degen erative changes of the hips, pelvis and spine. Healed remote appearing right-sided rib fractures. Gra de 1 anterolisthesis L4 on L5 is likely secondary to long-standing facet arthrosis. Convex right curv ature of the mid lumbar spine. IMPRESSION: 1. No acute intra-abdominal or intrapelvic abnormality. 2. No acute fracture. 3. Chronic findings as above. ACT 112: Negative or not required by law. The above report was generated using voice recognition software. It may contain grammatical, syntax o r spelling errors. Electronically signed by: Roberto Potts M.D. 01/22/2020 4:47 PM
[2020-01-22] MEDS ORDERED: SODIUM CHLORIDE 0.9% 250 ML IV PRN ×3 (16:49→17:04)
--- NOTE | 2020-01-22 16:57 | CT Scan Report ---
CT angio LE LT w inc wo if don HISTORY: 79 years-old Female fall acute left lower leg pain status post fall COMPARISON: CT abdomen and pelvis of same day TECHNIQUE: CTA of the left lower leg was obtained following the intravenous administration of Optiray 300. 3-D coronal and sagittal MIPS were obtained from the axial data set and were submitted for revi ew. All measurements were obtained according to NASCET criteria. A dose lowering technique was used c onsistent with the principals juhi TRENT. FINDINGS: Moderate atrophy of the musculature. There is a large mixed attenuating hematoma involving the waste machine offbearer ior subcutaneous left lower leg with areas of active extravasation noted on images 155, 194 and 229 o f series 3 which overall measures 33.8 x 6.1 x 19.2 cm in transverse, AP and craniocaudal dimensions. Moderate diffuse subcutaneous edema. No intramuscular hemorrhage. Study is motion degraded. The popl iteal artery, tibioperoneal trunk, anterior tibial, posterior tibial and peroneal arteries appear pat ent. There is diminished flow within the anterior tibial artery at the level of the lower leg. Modera te multifocal mixed plaque. Moderate sized effusion of the knee. Osteoarthritis of the knee and ankle with severe joint space christina rowing of the medial compartment of the knee. Demineralized appearance of the bones. No acute fractur e. IMPRESSION: 1. Large mixed attenuating hematoma of the posterior subcutaneous left lower leg measures up to 33.8 cm in greatest dimension and demonstrates several areas of active extravasation. No intramuscular hem atoma. 2. Demineralized appearance the bones with multifocal osteoarthritis. No acute fracture or dislocatio n identified. 3. Moderate joint effusion of the knee. ACT 112: Negative or not required by law. The above report was generated using voice recognition software. It may contain grammatical, syntax o r spelling errors. Electronically signed by: Roberto Potts M.D. 01/22/2020 4:55 PM
[2020-01-22] MEDS ORDERED: PROTHROMBIN COMP CONC- KCENTRA 3,500 UNITS in SYRINGE 0 ML IV ONE (17:30)
[2020-01-22] MEDS ORDERED: GELATIN SPONGE 12-7MM ONE (18:13)
--- NOTE | 2020-01-22 18:26 | XRay Report ---
XR shoulder RT min 2V routine HISTORY: 79 years-old Female R shoulder pain acute right shoulder pain COMPARISON: Chest radiograph of same day and also 12/25/2019 TECHNIQUE: 2 views of the right shoulder FINDINGS: Markedly advanced osteoarthritis with severe chronic remodeling changes of the glenohumeral joint inc lude flattening deformity of the articular humeral head with extensive subchondral sclerosis. Deminer alized appearance of the bones. No acute fracture, or dislocation. Prominent osteophytic spurring annette ng the axillary recess. Mild AC joint osteoarthritis. Unchanged right perihilar opacities. Healed rem ote right-sided rib fractures. IMPRESSION: 1. No acute fracture or dislocation. 2. Severe osteoarthritis of the glenohumeral joint. ACT 112: Negative or not required by law. The above report was generated using voice recognition software. It may contain grammatical, syntax o r spelling errors. Electronically signed by: Roberto Potts M.D. 01/22/2020 6:25 PM
--- NOTE | 2020-01-22 18:28 | XRay Report ---
XR wrist RT min 3V routine HISTORY: 79 years-old Female R wrist pain acute right wrist pain COMPARISON: None TECHNIQUE: 3 views of the right wrist FINDINGS: Demineralized appearance of the bones. Mild radiocarpal with severe first carpometacarpal osteoarthri tis. Limited exam secondary to positioning. Partially imaged multi focal osteoarthritis of the interp halangeal joints. No acute fracture or dislocation. Arterial calcifications are noted. IMPRESSION: No acute fracture or dislocation. ACT 112: Negative or not required by law. The above report was generated using voice recognition software. It may contain grammatical, syntax o r spelling errors. Electronically signed by: Roberto Potts M.D. 01/22/2020 6:27 PM
[2020-01-22] MEDS ORDERED: ACETAMINOPHEN 325 MG TAB PO STA (20:04)
[2020-01-22] MEDS ORDERED: GLUCOSE 10 TABS/TUBE PO PRN (20:55)
[2020-01-22] MEDS ORDERED: GLUCOSE 40% GEL 15 GM TUBE PO PRN (20:55)
[2020-01-22] MEDS ORDERED: GLUCAGON FOR INJ 1 MG VIAL SQ PRN (20:55)
[2020-01-22] MEDS ORDERED: ALUMINUM/MAGNESIUM SUSP 30 ML UDC PO PRN (20:55)
[2020-01-22] MEDS ORDERED: ONDANSETRON INJ 2 MG/ML 2 ML VIAL IV PRN (20:55)
[2020-01-22] MEDS ORDERED: DEXTROSE 50% 50 ML SYRINGE IV PRN (20:55)
[2020-01-22] MEDS ORDERED: CARBOHYDRATES FOR HYPOGLYCEMIA PO PRN (20:55)
[2020-01-22] MEDS ORDERED: [UNRECOGNIZED DRUG - OTHER] OPB SCH (21:00)
[2020-01-22 22:55] LABS: Hematocrit (blood only) 34.4 % (37-47); Hemoglobin 11.4 g/dL (12.0-16.0)
[2020-01-22 22:58] LABS: Prothrombin Time 10.1 Seconds (9.0-12.0)
[2020-01-22] MEDS: DOCUSATE SODIUM 100 MG CAP PO SCH (23:22)
[2020-01-22] MEDS: SUCRALFATE 1 GM TAB PO SCH (23:22)
[2020-01-22] MEDS: MONTELUKAST SODIUM 10 MG TABLET PO SCH (23:23)
[2020-01-22] MEDS: MICONAZOLE NITRATE POWDER 43 GM TOP SCH (23:23)
[2020-01-22] MEDS: FAMOTIDINE 20 MG TAB PO SCH (23:23)
[2020-01-22] MEDS: METOPROLOL SUCC 50MG EXT REL TAB PO SCH (23:23)
[2020-01-22] MEDS: SENNA 8.6 MG TAB PO SCH (23:23)
[2020-01-22] MEDS: INSULIN ASPART 100 UNITS/ML 3 ML PEN SC SCH (23:24)
--- NOTE | 2020-01-23 00:34 | Emergency Department Note ---
ED Visit Note I received this patient in signout at the change of shift from Dr. Cole, pending hospitalist evaluation. The patient became hypotensive while being evaluated by the hospitalist. I was called to the bedside by Peg mar PA-C for assistance with blood consent and transfusion. Patient was consented in the presence of her sister. There was no type and cross available at that time therefore 1 unit of O- blood was ordered for transfusion. Patient remains somewhat hypotensive but somewhat more stable. She had been evaluated by orthopedic surgery, Dr. Small and no urgent intervention was indicated. I did recommend consultation with Dr. Jay for PCC administration. Patient had already received IV vitamin K. I was called back to the bedside by Dr. Opal العراقي as the patient began to bleed when they were applying a compression dressing. Patient did have a significant amount of bleeding at the bedside and on further evaluation, there is approximately 10 cm skin tear over the hematoma to the left calf. Bleeding has largely resolved at the time of my evaluation. Gelfoam and ABD pad and compression dressing with Joce wrap was applied. Patient's vital signs had somewhat stabilized and blood transfusion continued. Patient's sister was at the bedside. Patient remained in the emergency department for several hours due to a delay in obtaining an inpatient bed. She was reevaluated on several occasions by myself and remained stable. Please refer to previous emergency medicine documentation for details of the history, physical and visit. Impression: Supratherapeutic INR, acute left calf subcutaneous hemorrhage, hypotension I have personally spent greater than 35 minutes of critical care time in the direct management of this patient. This includes bedside care, interpretation of diagnostic studies, and testing, discussion with consultants, patient, and family members, and other required patient management activities. This 35 minutes is in excess of all separately billable procedures. . : Hematoma of left lower extremity Qualifiers: Encounter type: initial encounter Qualified Code(s): S80.12XA - Contusion of left lower leg, initial encounter Fall Qualifiers: Encounter type: initial encounter Qualified Code(s): W19.XXXA - Unspecified fall, initial encounter
[2020-01-23 02:25] LABS: Basophils # (auto) 0.02 K/uL (0-0.2); Basophils % (auto) 0.1 %; Eosinophils # (auto) 0.04 K/uL (0-0.5); Eosinophils % (auto) 0.2 %; Hematocrit (blood only) 31.8 % (37-47); Hemoglobin 10.9 g/dL (12.0-16.0); Immature Granulocytes # (auto) 0.09 K/uL (0.00-0.02); Immature Granulocytes % (auto) 0.5 %; Lymphocytes # (auto) 2.02 K/uL (1.2-3.4); Lymphocytes % (auto) 11.4 %; Mean Corpuscular Hemoglobin 33.7 pg (25-34); Mean Corpuscular Hgb Conc 34.3 g/dL (32-36); Mean Corpuscular Volume 98.5 fL (80-100); Mean Platelet Volume 11.2 fL (7.4-10.4); Monocytes % (auto) 10.8 %; Neutrophils # (auto) 13.59 K/uL (1.4-6.5); Nucleated RBC # (auto) 0.03 K/uL (0-0); Nucleated RBC % (auto) 0.2 %; Platelet Count 145 K/uL (130-400); RDW Coefficient of Variation 17.7 % (11.5-14.5); RDW Standard Deviation 63.7 fL (36.4-46.3); Red Blood Count 3.23 M/uL (4.2-5.4); White Blood Count 17.66 K/uL (4.8-10.8)
[2020-01-23] MEDS: LEVOTHYROXINE SODIUM 75 MCG TABLET PO SCH (06:06)
[2020-01-23 06:39] LABS: Hemoglobin 10.8 g/dL (12.0-16.0)
[2020-01-23 06:53] LABS: INR 0.9 (0.9-1.1)
[2020-01-23 07:00] LABS: Albumin Level 2.5 gm/dl (3.4-5.0); BUN Creatinine Ratio 25.7 (10-20); Calcium 8.3 mg/dl (8.5-10.1); Creatinine Clr Calc Pharmacy 30.5 ml/min; Est GFR (African American) 26.9; Est GFR (Non-African American) 23.2; Potassium 5.3 mmol/L (3.5-5.1)
[2020-01-23 07:10] LABS: Albumin Globulin Ratio 0.8 (0.9-2); Bilirubin,Total 0.9 mg/dl (0.2-1); Globulin 3.1 gm/dl (2.5-4.0); Total Protein 5.6 gm/dl (6.4-8.2)
[2020-01-23] MEDS ORDERED: SODIUM CHLORIDE 0.9% 1000ML 1,000 ML IV ONE (08:01)
[2020-01-23] MEDS ORDERED: POTASSIUM CHLORIDE 10 MEQ TABCR PO SCH (09:00)
[2020-01-23] MEDS ORDERED: MAGNESIUM OXIDE 400 MG TAB PO SCH (09:00)
[2020-01-23] MEDS: PREGABALIN 50 MG CAP PO SCH ×3 (09:14→17:13)
[2020-01-23] MEDS: MICONAZOLE NITRATE POWDER 43 GM TOP SCH ×3 (09:15→20:22)
[2020-01-23] MEDS: FLUTICASONE/VILANTEROL 200/25MCG 14 PUFFS/INHALER INH SCH (09:16)
[2020-01-23] MEDS: UMECLIDINIUM BROMIDE 62.5MCG/BLISTER 7 PUFFS/INHALER INH SCH (09:16)
[2020-01-23] MEDS: INSULIN ASPART 100 UNITS/ML 3 ML PEN SC SCH ×4 (09:18→20:31)
[2020-01-23] MEDS: CHOLECALCIFEROL 1,000 UNITS 25 MCG TAB PO SCH (09:24)
[2020-01-23] MEDS: SENNA 8.6 MG TAB PO SCH ×2 (09:24→20:23)
[2020-01-23] MEDS: SUCRALFATE 1 GM TAB PO SCH ×2 (09:24→20:21)
[2020-01-23] MEDS: DIGOXIN 0.125 MG TAB PO SCH (09:25)
[2020-01-23] MEDS: FAMOTIDINE 20 MG TAB PO SCH ×2 (09:27→20:22)
[2020-01-23] MEDS: DOCUSATE SODIUM 100 MG CAP PO SCH ×2 (09:27→20:21)
[2020-01-23] MEDS: DULOXETINE HCL 60 MG CAP PO SCH (09:27)
[2020-01-23] MEDS: allopurinoL 100 MG TAB PO SCH (09:31)
[2020-01-23] MEDS: METOPROLOL SUCC 50MG EXT REL TAB PO SCH ×2 (09:31→20:23)
[2020-01-23 11:02] LABS: Hematocrit (blood only) 30.1 % (37-47)
--- NOTE | 2020-01-23 11:05 | Orthopedic Progress Note ---
Date of Service January 23, 2020 Assessment & Plan (1) Hematoma of left lower extremity: Continue with covering the wound with Adaptic and ABDs and reinforcing as needed. Wound care nurse consult. No plans for surgical decompression at this time INR is normalized. WBAT LLE. Continue care per the primary service. Continue to follow. Discussed with Dr. Rasheed who will be assuming her care. Admission and Anticipated Discharge Date Admission Date: January 22, 2020 Subjective Feeling better Review of Systems Review of Systems: All systems reviewed & are unremarkable except as noted in HPI & below Physical Exam Physical Exam: LLE: Neurovascularly intact. Calf is soft and mild tenderness to palpation. Decreased swelling about the calf. Continued ecchymosis. While removing the dressing, a small portion of the superficial dermis came away from the medial wound. There also appears to be approximately quarter sized loss of superficial dermis posterior laterally. There was minimal bloody drainage. No evidence of infection. Results & Data ([facility]) Vital Signs (Past 12 Hours) Vital Signs Temp Pulse Pulse Pulse Resp BP Pulse Ox 01/23/20 09:25 74 01/23/20 07:50 71 01/23/20 07:38 37.1 C 73 20 118/70 94 01/23/20 06:05 37.3 C 73 22 118/64 100 01/23/20 01:06 37.1 C 82 20 106/69 Laboratory Results 01/23/20 01/23/20 01/23/20 Range/Units 10:51 07:37 06:16 WBC (4.8-10.8) K/uL RBC (4.2-5.4) M/uL Hgb 10.0 L 10.8 L (12.0-16.0) g/dL Hct 30.1 L 33.0 L (37-47) % MCV (80-100) fL MCH (25-34) pg MCHC (32-36) g/dL RDW Std Deviation (36.4-46.3) fL RDW Coeff of Kenneth (11.5-14.5) % Plt Count (130-400) K/uL MPV (7.4-10.4) fL Immature Gran % (Auto) % Neut % (Auto) % Lymph % (Auto) % [place] % (Auto) % Eos % (Auto) % Baso % (Auto) % Immature Gran # (Auto) (0.00-0.02) K/uL Neut # (Auto) (1.4-6.5) K/uL Lymph # (Auto) (1.2-3.4) K/uL [place] # (Auto) (0.11-0.59) K/uL Eos # (Auto) (0-0.5) K/uL Baso # (Auto) (0-0.2) K/uL Absolute Nucleated RBC (0-0) K/uL Nucleated RBC % (auto) % PT (9.0-12.0) Seconds INR (0.9-1.1) APTT (21.0-31.0) Seconds PTT Ratio Sodium (136-145) mmol/L Potassium (3.5-5.1) mmol/L Chloride (98-107) mmol/L Carbon Dioxide (21-32) mmol/L Anion Gap (3-11) BUN (7-18) mg/dl Creatinine (0.6-1.2) mg/dl Est Cr Clr Drug Dosing ml/min Est GFR ( Amer) Est GFR (Non-Af Amer) BUN/Creatinine Ratio (10-20) Glucose (70-99) mg/dl POC Glucose 123 H (70-99) mg/dl Lactate (0.4-2.0) mmol/L Calcium (8.5-10.1) mg/dl Magnesium (1.8-2.4) mg/dl Total Bilirubin (0.2-1) mg/dl AST (15-37) U/L ALT (12-78) U/L Alkaline Phosphatase (45-117) U/L Total Creatine Kinase (26-192) U/L Troponin I (0-0.045) ng/ml Total Protein (6.4-8.2) gm/dl Albumin (3.4-5.0) gm/dl Globulin (2.5-4.0) gm/dl Albumin/Globulin Ratio (0.9-2) TSH (0.300-4.500) uIu/ml Digoxin (0.8-2.0) ng/ml Blood Type Antibody Screen Crossmatch 01/23/20 01/23/20 01/23/20 Range/Units 06:16 06:16 06:16 WBC (4.8-10.8) K/uL RBC (4.2-5.4) M/uL Hgb (12.0-16.0) g/dL Hct (37-47) % MCV (80-100) fL MCH (25-34) pg MCHC (32-36) g/dL RDW Std Deviation (36.4-46.3) fL RDW Coeff of Kenneth (11.5-14.5) % Plt Count (130-400) K/uL MPV (7.4-10.4) fL Immature Gran % (Auto) % Neut % (Auto) % Lymph % (Auto) % [place] % (Auto) % Eos % (Auto) % Baso % (Auto) % Immature Gran # (Auto) (0.00-0.02) K/uL Neut # (Auto) (1.4-6.5) K/uL Lymph # (Auto) (1.2-3.4) K/uL [place] # (Auto) (0.11-0.59) K/uL Eos # (Auto) (0-0.5) K/uL Baso # (Auto) (0-0.2) K/uL Absolute Nucleated RBC (0-0) K/uL Nucleated RBC % (auto) % PT 10.0 (9.0-12.0) Seconds INR 0.9 (0.9-1.1) APTT (21.0-31.0) Seconds PTT Ratio Sodium 134 L (136-145) mmol/L Potassium 5.3 H D (3.5-5.1) mmol/L Chloride 102 (98-107) mmol/L Carbon Dioxide 27 (21-32) mmol/L Anion Gap 6.0 (3-11) BUN 52 H (7-18) mg/dl Creatinine 2.01 H D (0.6-1.2) mg/dl Est Cr Clr Drug Dosing 30.5 ml/min Est GFR ( Amer) 26.9 Est GFR (Non-Af Amer) 23.2 BUN/Creatinine Ratio 25.7 H (10-20) Glucose 130 H (70-99) mg/dl POC Glucose (70-99) mg/dl Lactate (0.4-2.0) mmol/L Calcium 8.3 L (8.5-10.1) mg/dl Magnesium (1.8-2.4) mg/dl Total Bilirubin 0.9 (0.2-1) mg/dl AST 18 (15-37) U/L ALT 17 (12-78) U/L Alkaline Phosphatase 93 (45-117) U/L Total Creatine Kinase (26-192) U/L Troponin I (0-0.045) ng/ml Total Protein 5.6 L (6.4-8.2) gm/dl Albumin 2.5 L (3.4-5.0) gm/dl Globulin 3.1 (2.5-4.0) gm/dl Albumin/Globulin Ratio 0.8 L (0.9-2) TSH (0.300-4.500) uIu/ml Digoxin 0.8 (0.8-2.0) ng/ml Blood Type Antibody Screen Crossmatch 01/23/20 01/22/20 01/22/20 Range/Units 02:12 22:20 22:20 WBC 17.66 H (4.8-10.8) K/uL RBC 3.23 L (4.2-5.4) M/uL Hgb 10.9 L 11.4 L D (12.0-16.0) g/dL Hct 31.8 L 34.4 L (37-47) % MCV 98.5 D (80-100) fL MCH 33.7 (25-34) pg MCHC 34.3 (32-36) g/dL RDW Std Deviation 63.7 H (36.4-46.3) fL RDW Coeff of Kenneth 17.7 H (11.5-14.5) % Plt Count 145 (130-400) K/uL MPV 11.2 H (7.4-10.4) fL Immature Gran % (Auto) 0.5 % Neut % (Auto) 77.0 % Lymph % (Auto) 11.4 % [place] % (Auto) 10.8 % Eos % (Auto) 0.2 % Baso % (Auto) 0.1 % Immature Gran # (Auto) 0.09 H (0.00-0.02) K/uL Neut # (Auto) 13.59 H (1.4-6.5) K/uL Lymph # (Auto) 2.02 (1.2-3.4) K/uL [place] # (Auto) 1.90 H (0.11-0.59) K/uL Eos # (Auto) 0.04 (0-0.5) K/uL Baso # (Auto) 0.02 (0-0.2) K/uL Absolute Nucleated RBC 0.03 H (0-0) K/uL Nucleated RBC % (auto) 0.2 % PT 10.1 (9.0-12.0) Seconds INR 1.0 (0.9-1.1) APTT (21.0-31.0) Seconds PTT Ratio Sodium (136-145) mmol/L Potassium (3.5-5.1) mmol/L Chloride (98-107) mmol/L Carbon Dioxide (21-32) mmol/L Anion Gap (3-11) BUN (7-18) mg/dl Creatinine (0.6-1.2) mg/dl Est Cr Clr Drug Dosing ml/min Est GFR ( Amer) Est GFR (Non-Af Amer) BUN/Creatinine Ratio (10-20) Glucose (70-99) mg/dl POC Glucose (70-99) mg/dl Lactate (0.4-2.0) mmol/L Calcium (8.5-10.1) mg/dl Magnesium (1.8-2.4) mg/dl Total Bilirubin (0.2-1) mg/dl AST (15-37) U/L ALT (12-78) U/L Alkaline Phosphatase (45-117) U/L Total Creatine Kinase (26-192) U/L Troponin I (0-0.045) ng/ml Total Protein (6.4-8.2) gm/dl Albumin (3.4-5.0) gm/dl Globulin (2.5-4.0) gm/dl Albumin/Globulin Ratio (0.9-2) TSH (0.300-4.500) uIu/ml Digoxin (0.8-2.0) ng/ml Blood Type Antibody Screen Crossmatch 01/22/20 01/22/20 01/22/20 Range/Units 22:04 16:19 16:19 WBC (4.8-10.8) K/uL RBC (4.2-5.4) M/uL Hgb (12.0-16.0) g/dL Hct (37-47) % MCV (80-100) fL MCH (25-34) pg MCHC (32-36) g/dL RDW Std Deviation (36.4-46.3) fL RDW Coeff of Kenneth (11.5-14.5) % Plt Count (130-400) K/uL MPV (7.4-10.4) fL Immature Gran % (Auto) % Neut % (Auto) % Lymph % (Auto) % [place] % (Auto) % Eos % (Auto) % Baso % (Auto) % Immature Gran # (Auto) (0.00-0.02) K/uL Neut # (Auto) (1.4-6.5) K/uL Lymph # (Auto) (1.2-3.4) K/uL [place] # (Auto) (0.11-0.59) K/uL Eos # (Auto) (0-0.5) K/uL Baso # (Auto) (0-0.2) K/uL Absolute Nucleated RBC (0-0) K/uL Nucleated RBC % (auto) % PT (9.0-12.0) Seconds INR (0.9-1.1) APTT (21.0-31.0) Seconds PTT Ratio Sodium (136-145) mmol/L Potassium (3.5-5.1) mmol/L Chloride (98-107) mmol/L Carbon Dioxide (21-32) mmol/L Anion Gap (3-11) BUN (7-18) mg/dl Creatinine (0.6-1.2) mg/dl Est Cr Clr Drug Dosing ml/min Est GFR ( Amer) Est GFR (Non-Af Amer) BUN/Creatinine Ratio (10-20) Glucose (70-99) mg/dl POC Glucose 161 H (70-99) mg/dl Lactate 2.0 (0.4-2.0) mmol/L Calcium (8.5-10.1) mg/dl Magnesium (1.8-2.4) mg/dl Total Bilirubin (0.2-1) mg/dl AST (15-37) U/L ALT (12-78) U/L Alkaline Phosphatase (45-117) U/L Total Creatine Kinase (26-192) U/L Troponin I (0-0.045) ng/ml Total Protein (6.4-8.2) gm/dl Albumin (3.4-5.0) gm/dl Globulin (2.5-4.0) gm/dl Albumin/Globulin Ratio (0.9-2) TSH (0.300-4.500) uIu/ml Digoxin (0.8-2.0) ng/ml Blood Type A Negative Antibody Screen NEGATIVE Crossmatch See Detail 01/22/20 01/22/20 01/22/20 Range/Units 16:19 11:28 11:28 WBC 17.52 H (4.8-10.8) K/uL RBC 2.29 L (4.2-5.4) M/uL Hgb 8.1 L D (12.0-16.0) g/dL Hct 24.2 L (37-47) % MCV 105.7 H (80-100) fL MCH 35.4 H (25-34) pg MCHC 33.5 (32-36) g/dL RDW Std Deviation 56.7 H (36.4-46.3) fL RDW Coeff of Kenneth 15.0 H (11.5-14.5) % Plt Count 137 (130-400) K/uL MPV 10.6 H (7.4-10.4) fL Immature Gran % (Auto) % Neut % (Auto) % Lymph % (Auto) % [place] % (Auto) % Eos % (Auto) % Baso % (Auto) % Immature Gran # (Auto) (0.00-0.02) K/uL Neut # (Auto) (1.4-6.5) K/uL Lymph # (Auto) (1.2-3.4) K/uL [place] # (Auto) (0.11-0.59) K/uL Eos # (Auto) (0-0.5) K/uL Baso # (Auto) (0-0.2) K/uL Absolute Nucleated RBC (0-0) K/uL Nucleated RBC % (auto) % PT 44.3 H (9.0-12.0) Seconds INR 4.6 H (0.9-1.1) APTT 49.1 H* (21.0-31.0) Seconds PTT Ratio 1.8 Sodium 133 L (136-145) mmol/L Potassium 4.6 (3.5-5.1) mmol/L Chloride 97 L (98-107) mmol/L Carbon Dioxide 31 (21-32) mmol/L Anion Gap 5.0 (3-11) BUN 46 H (7-18) mg/dl Creatinine 1.60 H (0.6-1.2) mg/dl Est Cr Clr Drug Dosing 38.5 ml/min Est GFR ( Amer) 35.4 Est GFR (Non-Af Amer) 30.5 BUN/Creatinine Ratio 28.9 H (10-20) Glucose 134 H (70-99) mg/dl POC Glucose (70-99) mg/dl Lactate (0.4-2.0) mmol/L Calcium 8.9 (8.5-10.1) mg/dl Magnesium 3.7 H (1.8-2.4) mg/dl Total Bilirubin 0.6 (0.2-1) mg/dl AST 17 (15-37) U/L ALT 19 (12-78) U/L Alkaline Phosphatase 117 (45-117) U/L Total Creatine Kinase 32 (26-192) U/L Troponin I < 0.015 (0-0.045) ng/ml Total Protein 6.4 (6.4-8.2) gm/dl Albumin 2.9 L (3.4-5.0) gm/dl Globulin 3.5 (2.5-4.0) gm/dl Albumin/Globulin Ratio 0.8 L (0.9-2) TSH 2.530 (0.300-4.500) uIu/ml Digoxin (0.8-2.0) ng/ml Blood Type Antibody Screen Crossmatch 01/22/20 Range/Units 11:28 WBC 14.88 H (4.8-10.8) K/uL RBC 3.59 L (4.2-5.4) M/uL Hgb 12.7 (12.0-16.0) g/dL Hct 37.7 (37-47) % MCV 105.0 H (80-100) fL MCH 35.4 H (25-34) pg MCHC 33.7 (32-36) g/dL RDW Std Deviation 56.9 H (36.4-46.3) fL RDW Coeff of Kenneth 14.9 H (11.5-14.5) % Plt Count 180 (130-400) K/uL MPV 11.0 H (7.4-10.4) fL Immature Gran % (Auto) 0.2 % Neut % (Auto) 85.7 % Lymph % (Auto) 8.8 % [place] % (Auto) 4.3 % Eos % (Auto) 0.9 % Baso % (Auto) 0.1 % Immature Gran # (Auto) 0.03 H (0.00-0.02) K/uL Neut # (Auto) 12.75 H (1.4-6.5) K/uL Lymph # (Auto) 1.31 (1.2-3.4) K/uL [place] # (Auto) 0.64 H (0.11-0.59) K/uL Eos # (Auto) 0.13 (0-0.5) K/uL Baso # (Auto) 0.02 (0-0.2) K/uL Absolute Nucleated RBC (0-0) K/uL Nucleated RBC % (auto) % PT (9.0-12.0) Seconds INR (0.9-1.1) APTT (21.0-31.0) Seconds PTT Ratio Sodium (136-145) mmol/L Potassium (3.5-5.1) mmol/L Chloride (98-107) mmol/L Carbon Dioxide (21-32) mmol/L Anion Gap (3-11) BUN (7-18) mg/dl Creatinine (0.6-1.2) mg/dl Est Cr Clr Drug Dosing ml/min Est GFR ( Amer) Est GFR (Non-Af Amer) BUN/Creatinine Ratio (10-20) Glucose (70-99) mg/dl POC Glucose (70-99) mg/dl Lactate (0.4-2.0) mmol/L Calcium (8.5-10.1) mg/dl Magnesium (1.8-2.4) mg/dl Total Bilirubin (0.2-1) mg/dl AST (15-37) U/L ALT (12-78) U/L Alkaline Phosphatase (45-117) U/L Total Creatine Kinase (26-192) U/L Troponin I (0-0.045) ng/ml Total Protein (6.4-8.2) gm/dl Albumin (3.4-5.0) gm/dl Globulin (2.5-4.0) gm/dl Albumin/Globulin Ratio (0.9-2) TSH (0.300-4.500) uIu/ml Digoxin (0.8-2.0) ng/ml Blood Type Antibody Screen Crossmatch (1) Hematoma of left lower extremity Encounter type: initial encounter Qualified Code(s): S80.12XA - Contusion of left lower leg, initial encounter
--- NOTE | 2020-01-23 11:59 | Hospitalist Progress Note ---
Date of Service January 23, 2020 Assessment & Plan (1) Fall: (2) Elevated INR: (3) Hematoma of left lower extremity: Patient is a 79 yr female with H/O Chronic respiratory failure with hypoxia, COPD, diastolic CHF, chronic atrial fibrillation on warfarin, DM II, CKD III, HTN, chronic pain, H/O PE/DVT, H/O MRSA who presents left lower extremity pain and swelling secondary to fall. Left Lower Extremity Hematoma Secondary to fall in setting of supratherapeutic INR due to Coumadin Intraprocedural hemorrhage of skin and subcutaneous tissue, not a complication of care --Left LE CTA:Large mixed attenuating hematoma of the posterior subcutaneous left lower leg measures up to 33.8 cm in greatest dimension and demonstrates several areas of active extravasation. No intramuscular hematoma. Demineralized appearance the bones with multifocal osteoarthritis. No acute fracture or dislocation identified. Moderate joint effusion of the knee. --CT Head:No acute intracranial abnormality. --CT ABD/Pelvis:No acute intra-abdominal or intrapelvic abnormality. No acute fracture. --CT Neck:No fractures within the cervical spine. Degenerative change --INR:4.6 on presentation --Patient received Vitamin k and K centra which revered her INR to 0.9 --S/P 2 units PRBCs --Monitor H&H and transfuse PRBCs as needed --Appreciate Orthopedics Input --Continue wound Care, dressing --Consider PT/OT eval when able: LLE WBAT (4) Acute blood loss anemia: Secondary to large subcutaneous left lower extremity hematoma in setting of Supratherapeutic INR S/P 2 units PRBCs Continue to monitor H&H (5) Leukocytosis: SIRS No obvious source of Infection CXR:Chronic change. No acute process. H/O MRSA Possible Sources: Leg cellulitis/UTI Leukocytosis also possible due to acute stress Empirically continue Rocephin, will add Daptomycin given H/O MRSA Urine Cx: pending Will obtain Blood Cx if patient develops fever (6) Acute kidney injury superimposed on CKD: ROSEY on CKD III CT ABD: No renal or ureteral calculi or obstructive uropathy. Likely due to hypoperfusion due to acute blood loss/IV contrast could have contributed as well Cr:2.0 Continue gentle IV fluids given H/O diastolic CHF Continue to hold diuretics Avoid nephrotoxic agents as able Consider Nephrology eval if no improvement Hyperkalemia: Likely due to ROSEY Hold potassium supplements Hold Aldactone Monitor electrolytes (7) Diastolic CHF: H/O HFpEF No signs of exacerbation Monitor volume status Hold Lasix, Aldactone for now Monitor daily weights, I/Os (8) DM type 2 (diabetes mellitus, type 2): Hb A1c 6.8 11/2019 Currently not on oral hypoglycemics Monitor blood sugar AC/HS Novolog sliding scale per protocol (9) Hypertension: Hypotensive due to acute blood loss Hold Lasix, Aldactone Continue metoprolol with holding parameters Monitor BP (10) Hypothyroidism: Continue levothyroxine (11) Chronic pain: 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 On fentanyl patch at baseline 25 mcg every 72 hour (last placed on 01/19) Fentanyl patch was removed in ED secondary to hypotension/lethargy Continue to hold fentanyl for now (12) Atrial fibrillation: Chronic atrial fibrillation Rate controlled Continue metoprolol Hold warfarin due to bleeding issues Monitor INR H/O PE as per records Anticoagulation on hold due to acute blood loss (13) Chronic respiratory failure: Secondary to COPD/asthma Chronic oxygen dependency: on 2 2 L at bedtime No signs of exacerbation Continue home inhalers (14) COPD (chronic obstructive pulmonary disease): As above (15) DVT prophylaxis: Contraindicated in setting of acute blood loss anemia No mechanical prophylaxis secondary to hematoma Code Status DNI/DNR Admission and Anticipated Discharge Date Admission Date: January 22, 2020 Subjective Patient is seen and examined at bedside Lethargic during my exam Denies any leg pain, chest pain, SOB Could not obtain complete ROS Follows simple commands No distress on exam Afebrile Persistent leukocytosis Review of Systems Review of Systems: Complete ROS could not be obtained Physical Exam Physical Exam: Physical Exam: Vitals signs as noted above General Appearance:Morbidly Obese, no apparent distress Head: normocephalic, Atraumatic Eyes: normal inspection, EOMI Neck: supple, Trachea midline Respiratory/Chest: Decreased breath sounds, CTA, No accessory muscle use Cardiovascular:Irregularly Irregular, No murmur Abdomen/GI:Soft, Non tender, Bowel sounds present Extremities/Musculoskelatal:normal inspection, 1-2+ B/L LE edema, Left LE in dressing Neurologic/Psych:grossly no focal neurological deficits, Complete neuro exam could not be performed Skin: normal color, warm, B/L LE echymosis Results & Data Results & Data ([facility]) Vital Signs (Past 12 Hours) Vital Signs Temp Pulse Pulse Pulse Resp BP Pulse Ox 01/23/20 11:37 37.1 C 72 19 96/61 L 100 01/23/20 09:25 74 01/23/20 07:50 71 01/23/20 07:38 37.1 C 73 20 118/70 94 01/23/20 06:05 37.3 C 73 22 118/64 100 01/23/20 01:06 37.1 C 82 20 106/69 Laboratory Results Short CBC 01/22/20 01/22/20 01/23/20 Range/Units 16:19 22:20 02:12 WBC 17.52 H 17.66 H (4.8-10.8) K/uL Hgb 8.1 L D 11.4 L D 10.9 L (12.0-16.0) g/dL Hct 24.2 L 34.4 L 31.8 L (37-47) % Plt Count 137 145 (130-400) K/uL 01/23/20 01/23/20 Range/Units 06:16 10:51 WBC (4.8-10.8) K/uL Hgb 10.8 L 10.0 L (12.0-16.0) g/dL Hct 33.0 L 30.1 L (37-47) % Plt Count (130-400) K/uL BMP 01/23/20 06:16 Sodium 134 L Potassium 5.3 H D Chloride 102 Carbon Dioxide 27 BUN 52 H Creatinine 2.01 H D Glucose 130 H Calcium 8.3 L Cardiac Enzymes 01/22/20 Range/Units 11:28 Total Creatine Kinase 32 (26-192) U/L Troponin I < 0.015 (0-0.045) ng/ml Liver Function 01/22/20 01/23/20 Range/Units 11:28 06:16 Total Bilirubin 0.6 0.9 (0.2-1) mg/dl AST 18 (15-37) U/L ALT 17 (12-78) U/L Alkaline Phosphatase 117 93 (45-117) U/L Albumin 2.5 L (3.4-5.0) gm/dl (1) Fall Encounter type: initial encounter Qualified Code(s): W19.XXXA - Unspecified fall, initial encounter (2) Hematoma of left lower extremity Encounter type: initial encounter Qualified Code(s): S80.12XA - Contusion of left lower leg, initial encounter (3) Atrial fibrillation Atrial fibrillation type: unspecified Qualified Code(s): I48.91 - Unspecified atrial fibrillation
[2020-01-23] MEDS ORDERED: DAPTOMYCIN CONSULT ACTIVE PRN (12:10)
[2020-01-23] MEDS: DAPTOmycin 325 MG in SYRINGE 0 ML IV SCH (13:32)
[2020-01-23 14:08] LABS: Hematocrit (blood only) 29.4 % (37-47); Hemoglobin 9.8 g/dL (12.0-16.0)
[2020-01-23 14:15] LABS: Base Excess VBG 2.2 mEq/L; HCO3 VBG 28 mmol/L; PCO2 VBG 52 mmHg (38-50); PO2 VBG 25 mmHg; pH VBG 7.35 (7.36-7.41)
[2020-01-23 14:17] LABS: Oxygen Saturation VBG < 60.0 %
[2020-01-23] MEDS: ACETAMINOPHEN 325 MG TAB PO PRN (16:20)
[2020-01-23] MEDS: cefTRIAXone SODIUM 2,000 MG in DEXTROSE 5% 50 ML IV SCH (17:02)
[2020-01-23] MEDS: MONTELUKAST SODIUM 10 MG TABLET PO SCH (20:23)
[2020-01-23 20:40] LABS: Hematocrit (blood only) 26.8 % (37-47); Hemoglobin 8.9 g/dL (12.0-16.0)
[2020-01-23] MEDS ORDERED: ACETAMINOPHEN 500 MG TAB PO SCH (21:00)
[2020-01-24] MEDS: ACETAMINOPHEN 325 MG TAB PO PRN ×2 (00:47→08:15)
[2020-01-24] MEDS: LEVOTHYROXINE SODIUM 75 MCG TABLET PO SCH (05:51)
[2020-01-24 06:16] LABS: Hematocrit (blood only) 27.7 % (37-47); Hemoglobin 9.3 g/dL (12.0-16.0); Mean Corpuscular Hemoglobin 33.3 pg (25-34); Mean Corpuscular Hgb Conc 33.6 g/dL (32-36); Mean Corpuscular Volume 99.3 fL (80-100); Mean Platelet Volume 10.2 fL (7.4-10.4); Platelet Count 132 K/uL (130-400); RDW Coefficient of Variation 17.3 % (11.5-14.5); RDW Standard Deviation 61.7 fL (36.4-46.3); Red Blood Count 2.79 M/uL (4.2-5.4); White Blood Count 9.91 K/uL (4.8-10.8)
[2020-01-24 06:58] LABS: BUN Creatinine Ratio 29.4 (10-20); Calcium 8.1 mg/dl (8.5-10.1); Creatinine Clr Calc Pharmacy 37.1 ml/min; Est GFR (African American) 33.9; Est GFR (Non-African American) 29.2; Magnesium 3.8 mg/dl (1.8-2.4); Potassium 4.5 mmol/L (3.5-5.1)
[2020-01-24] MEDS: METOPROLOL SUCC 50MG EXT REL TAB PO SCH ×2 (08:23→08:34)
[2020-01-24] MEDS: MICONAZOLE NITRATE POWDER 43 GM TOP SCH ×3 (08:24→21:06)
[2020-01-24] MEDS: FLUTICASONE/VILANTEROL 200/25MCG 14 PUFFS/INHALER INH SCH (08:24)
[2020-01-24] MEDS: UMECLIDINIUM BROMIDE 62.5MCG/BLISTER 7 PUFFS/INHALER INH SCH (08:24)
[2020-01-24] MEDS: INSULIN ASPART 100 UNITS/ML 3 ML PEN SC SCH ×4 (08:26→21:05)
[2020-01-24] MEDS: SUCRALFATE 1 GM TAB PO SCH ×2 (08:32→21:04)
[2020-01-24] MEDS: PREGABALIN 50 MG CAP PO SCH ×3 (08:32→16:56)
[2020-01-24] MEDS: allopurinoL 100 MG TAB PO SCH (08:32)
[2020-01-24] MEDS: FAMOTIDINE 20 MG TAB PO SCH ×2 (08:36→21:03)
[2020-01-24] MEDS: CHOLECALCIFEROL 1,000 UNITS 25 MCG TAB PO SCH (08:36)
[2020-01-24] MEDS: DULOXETINE HCL 60 MG CAP PO SCH (08:36)
[2020-01-24] MEDS: DOCUSATE SODIUM 100 MG CAP PO SCH ×2 (08:36→21:03)
[2020-01-24] MEDS: SENNA 8.6 MG TAB PO SCH ×2 (08:37→21:03)
--- NOTE | 2020-01-24 08:57 | Progress Notes ---
DATE: 01/24/2020 I am covering for Dr. Small. The patient is seen in her room. Her leg feels better. She is afebrile and her vital signs are stable. Her labs today show mild anemia, hemoglobin 9, hematocrit 28. Her white count is normal as is her platelet. BUN and creatinine are 49 and 1.66, respectively. Her other labs are noted. On examination, she has a trace dorsalis pedis. Her foot is warm with capillary refill about 2 seconds. She can flex and extend her ankle with normal strength and no significant pain. She has a large wound on the back of her leg, which is a combination of subcutaneous hematoma, skin slough and skin blister. This is about 10-12 cm wide and 12-15 cm long. Distally, there is some erythema over the anterior and medial ankle area. She probably has some chronic venous stasis changes, which are also noted on the contralateral side. The plan at this point is to continue local wound care, nonadherent dressing, elevation and continue to monitor. I think that we should let this to clear itself prior to any further surgical treatment. It very well may heal on its own. I think we should get Dr. Roldan involved early in case any other treatments may be useful or necessary. At this time, I think being on the daptomycin and ciprofloxacin is appropriate. We will defer DVT prophylaxis and anticoagulation related to her cardiac condition to medicine. Her last INR was normal.
--- NOTE | 2020-01-24 11:24 | Surgery Consultation ---
Date of Consultation January 24, 2020 Assessment & Plan (1) Hematoma of left lower extremity: Calf appears soft, no evidence of active bleeding at this point in time. Agree with Ortho recommendation to allow for demarcation to occur, as this may limit the amount of tissue which would need to be excised. If patient remains inpatient, would anticipate possible use of irrigating wound VAC following separation of necrotic skin, otherwise, would recommend follow-up with wound care center, with placement of VAC. Discussed this with the patient, as well as options for definitive wound closure down the road, including healing by secondary intention, placement of split-thickness skin graft, or use of Cellutome/epidermal autografting at the wound center. Recommend continuing to dress with Adaptic, use of moist heat to help liquefy remaining hematoma, pressure relief of the posterior calf in order to limit skin necrosis. Thank you for this consultation; I will follow during inpatient admission and patient may follow-up with me at the wound care center post discharge. History of Present Illness Reason for Consultation: large left calf hematoma Requesting Physician: Spencer Rasheed MD Attending Physician: Wilbert Santiago MD History of Present Illness I am asked to see this 79-year-old female regarding a hematoma of her left posterior calf. She states she fell while getting out of the shower this past Sunday night, January 19. She is a past medical history significant for chronic respiratory failure on nasal cannula, COPD, diastolic CHF, chronic atrial fibrillation anticoagulated on warfarin, type 2 diabetes mellitus, chronic kidney disease stage III, hypertension, history of DVT/PE, history of MRSA. At the time of her evaluation in the emergency department, she was hemodynamically unstable with systolic blood pressure in the 70s, heart rates in the low 100s. She received fluid bolus, hemoglobin was noted to drop about 4 points. CTA of the left lower extremity showed a large subcutaneous hematoma, 33 x 19x6 cm by centimeters. She was given vitamin K, transfused. There was spontaneous decompression of her hematoma with an attempt at a dressing being placed in the emergency department, which resulted in improvement in the patient's symptoms. Orthopedics was consulted, recommendation was made for observation as there were no signs of compartment syndrome. I have been asked today to provide another opinion regarding conservative management of this large hematoma. Allergies Allergy/AdvReac Type Severity Reaction Status Date / Time acetaminophen [From Percocet] Allergy Unknown Unknown Verified 01/22/20 11:35 meperidine [From Demerol] Allergy Unknown ON WINDY Verified 01/22/20 11:35 HILL LIST morphine AdvReac Intermediate vomiting Verified 01/22/20 11:35 oxycodone AdvReac Intermediate vomit blood Verified 01/22/20 11:35 propoxyphene AdvReac Intermediate abd vomit Verified 01/22/20 11:35 blood tramadol AdvReac Intermediate vomiting Verified 12/25/19 23:09 Bactrim AdvReac Mild GI SYMPTOMS Verified 03/06/18 21:06 codeine AdvReac Mild vomiting Verified 01/22/20 11:35 olmesartan AdvReac Mild GI SYMPTOMS Verified 12/25/19 23:09 Sulfa (Sulfonamide AdvReac Mild GI SYMPTOMS Verified 01/22/20 11:35 Antibiotics) sulfamethoxazole AdvReac Mild GI SYMPTOMS Verified 01/22/20 11:35 trimethoprim AdvReac Mild GI SYMPTOMS Verified 01/22/20 11:35 carisoprodol AdvReac Unknown GI SYMPTOMS Verified 12/10/19 14:37 Home Medications Home Medications Medication Instructions Recorded Confirmed Type acetaminophen [Tylenol] 650 mg PO Q4 PRN 11/01/18 01/22/20 History allopurinol 200 mg PO QAM 11/01/18 01/22/20 History colchicine 0.6 mg PO QAM 11/01/18 01/22/20 History docusate sodium [Colace] 100 mg PO BID 11/01/18 01/22/20 History duloxetine 60 mg PO QAM 11/01/18 01/22/20 History levothyroxine 75 mcg PO DAILYBB 11/01/18 01/22/20 History meclizine 25 mg PO TID PRN 11/01/18 01/22/20 History melatonin 10 mg PO HS 11/01/18 01/22/20 History montelukast 10 mg PO PM 11/01/18 01/22/20 History ondansetron HCl [Zofran] 8 mg PO Q8 PRN 11/01/18 01/22/20 History pregabalin [Lyrica] 50 mg PO TIDM 11/01/18 01/22/20 History sucralfate 1 g PO AMPM 11/01/18 01/22/20 History simethicone [Gas Relief 180 mg PO DAILY PRN 12/27/18 01/22/20 History (simethicone)] Incruse Ellipta 1 inh INHALATION QAM 01/11/19 01/22/20 History sennosides [senna] 8.6 mg PO BID 01/11/19 01/22/20 History magnesium oxide 250 mg PO DAILY tab 06/10/19 01/22/20 History cholecalciferol (vitamin D3) 25 1,000 units PO DAILY 06/11/19 01/22/20 History mcg (1,000 unit) capsule digoxin 125 mcg (0.125 mg) tablet 125 mcg PO MOWEFR 06/11/19 01/22/20 History spironolactone 25 mg tablet 25 mg PO QAM tab 06/11/19 01/22/20 History trazodone 50 mg tablet 25 mg PO DAILY 06/11/19 01/22/20 History Desenex 1 applic TOPICAL TID 07/03/19 01/22/20 History betamethasone dipropionate 1 applic TOPICAL BID PRN 07/03/19 01/22/20 History buspirone 10 mg PO BID 07/09/19 01/22/20 History metoprolol succinate [Toprol XL] 100 mg PO BID 07/09/19 01/22/20 History benzocaine-menthol [Cepacol Sore 1 huan PO .Q2HRS PRN PRN 12/25/19 01/22/20 History Throat (nataliia-men)] famotidine [Pepcid] 20 mg PO BID 12/25/19 01/22/20 History fentanyl [Duragesic] 25 mcg TOPICAL [id number] 12/25/19 01/22/20 History fluticasone propion-salmeterol 1 ea INHALATION BID 12/25/19 01/22/20 History [Advair Diskus] furosemide [Lasix] 80 mg PO DAILY 12/25/19 01/22/20 History guaifenesin [Mucinex] 600 mg PO BID 12/25/19 01/22/20 History guaifenesin [Siltussin SA] 200 mg PO Q4 PRN 12/25/19 01/22/20 History metolazone 2.5 mg PO WESA 12/25/19 01/22/20 History potassium chloride 10 meq PO DAILY 12/25/19 01/22/20 History trazodone 50 mg PO HS 12/25/19 01/22/20 History glucosamine-chondroitin 1 tab PO TID 01/22/20 01/22/20 History levalbuterol HCl [Xopenex] 0.63 mg INHALATION Q4H PRN 01/22/20 01/22/20 History polyvinyl alcohol-povidon(PF) 2 drp OPB TID 01/22/20 01/22/20 History [Refresh Classic (PF)] warfarin 1 mg PO UD 01/22/20 01/22/20 History Patient History Medical History Acute kidney injury superimposed on CKD Anxiety (Chronic) Arthritis (Chronic) Asthma (Chronic) Atrial fibrillation (Chronic) Chronic back pain (Chronic) Chronic gastritis (Chronic) Chronic pain (Chronic) Chronic respiratory failure (Acute) CKD (chronic kidney disease), stage III (Chronic) COPD (chronic obstructive pulmonary disease) Diastolic CHF (Chronic) On 02/12/16 22:20 Ellie Bains wrote "per echo 09/30/15- EF 60-65%, mod LVH, mod MR, mod TR, dilated RV" DJD (degenerative joint disease), multiple sites (Chronic) DM type 2 (diabetes mellitus, type 2) (Chronic) DM2 (diabetes mellitus, type 2) (Chronic) Generalized anxiety disorder (Chronic) GERD (gastroesophageal reflux disease) (Chronic) History of pulmonary embolism (Chronic) HTN (hypertension) (Chronic) Hypertension (Chronic) Hyperuricemia (Chronic) Hypothyroidism (Chronic) Intertrigo Obesity (BMI 30-39.9) (Chronic) Stenosis of right carotid artery (Chronic) Surgical History History of hernia repair (Chronic) Status post cholecystectomy (Chronic) "Dr. Beavers [facility] 12/27/17" Family History Father Hypertension Diabetes Social History Preferred Language: Malay Communication Ability: Effective Communication Ability Comment: Pt confused Urologist Md Required: No Beliefs That Will Affect Care: None marital status: / Current Living Situation: Intermediate Current Living Situation Comment: [facility] Other Information That Helps Us Care for You: No Feels Safe at Home: Yes Safety Concerns: Feels Safe At This Time Smoking Status: Never smoker Second Hand Exposure: No ; Hx Alcohol Use: No Hx Substance Use: No Review of Systems Constitutional: as per Subjective / HPI Integumentary: as per Subjective / HPI Physical Exam Constitutional: WD/WN, vitals as above Eyes: PERRL, conjunctivae normal, anicteric sclerae ENMT: external ear and nose normal, oropharynx normal Respiratory: normal respiratory effort; no respiratory distress Musculoskeletal: Extremities: + chronic stasis changes (bilateral LE); no clubbing left calf soft, normal range of motion left ankle, able to move toes Skin: no rashes, warm and dry large ecchymotic area left posterior calf, very dark midcalf, with violaceous tissue surrounding, epidermolysis noted, no exposed fat or muscle, no lacerations noted Psychiatric: A+Ox3, euthymic affect Results & Data Vital Signs (Past 12 Hours) Vital Signs Temp Pulse Pulse Pulse Resp BP Pulse Ox 01/24/20 08:00 72 01/24/20 07:31 98.4 F 69 17 124/73 98 01/24/20 03:30 98.6 F 73 19 102/63 99 01/24/20 00:00 99.0 F 73 17 105/67 98 Laboratory Results Laboratory Tests 01/23/20 01/23/20 01/24/20 06:16 06:16 05:58 WBC 9.91 Hgb 9.3 L PT 10.0 INR 0.9 Creatinine Glucose Albumin 2.5 L 01/24/20 05:58 WBC Hgb PT INR Creatinine 1.66 H D Glucose 105 H Albumin Diagnostic Findings CT LLE 1. Large mixed attenuating hematoma of the posterior subcutaneous left lower leg measures up to 33.8 cm in greatest dimension and demonstrates several areas of active extravasation. No intramuscular hematoma. PG Care Time/CCT Total # of Minutes Spent Total Time Spent with Patient: Total time spent is greater than 50% in coordination of care (as documented) at patient's floor/unit and/or counseling patient: Coding Level of Care Code 56876 Office/OBS Consult Lvl 3 Diagnoses Hematoma of left lower extremity S80.12XA Encounter type: initial encounter (1) Hematoma of left lower extremity Encounter type: initial encounter Qualified Code(s): S80.12XA - Contusion of left lower leg, initial encounter
[2020-01-24] MEDS ORDERED: ACETAMINOPHEN 1,000 MG/100 ML VIAL IV PRN (12:00)
[2020-01-24] MEDS: DAPTOmycin 325 MG in SYRINGE 0 ML IV SCH (12:06)
[2020-01-24] MEDS: fentaNYL 25 MCG/HR TDSY TD SCH (12:06)
--- NOTE | 2020-01-24 12:20 | Hospitalist Progress Note ---
Date of Service January 24, 2020 Assessment & Plan (1) Fall: (2) Elevated INR: (3) Hematoma of left lower extremity: Patient is a 79 yr female with H/O Chronic respiratory failure with hypoxia, COPD, diastolic CHF, chronic atrial fibrillation on warfarin, DM II, CKD III, HTN, chronic pain, H/O PE/DVT, H/O MRSA who presents left lower extremity pain and swelling secondary to fall. Left Lower Extremity Hematoma Secondary to fall in setting of supratherapeutic INR due to Coumadin Intraprocedural hemorrhage of skin and subcutaneous tissue, not a complication of care --Left LE CTA:Large mixed attenuating hematoma of the posterior subcutaneous left lower leg measures up to 33.8 cm in greatest dimension and demonstrates several areas of active extravasation. No intramuscular hematoma. Demineralized appearance the bones with multifocal osteoarthritis. No acute fracture or dislocation identified. Moderate joint effusion of the knee. --CT Head:No acute intracranial abnormality. --CT ABD/Pelvis:No acute intra-abdominal or intrapelvic abnormality. No acute fracture. --CT Neck:No fractures within the cervical spine. Degenerative change --INR:4.6 on presentation --Patient received Vitamin k and K centra which revered her INR to 0.9 --S/P 2 units PRBCs --Monitor H&H and transfuse PRBCs as needed --Appreciate Orthopedics/Surgery Input --Continue wound Care, dressing --PT/OT: LLE WBAT --Needs follow up with wound clinic upon discharge --Continue to hold anticoagulation for now--Need to resume eventually given high CHADS2 score (4) Acute blood loss anemia: Secondary to large subcutaneous left lower extremity hematoma in setting of Supratherapeutic INR S/P 2 units PRBCs Continue to monitor H&H Hb:9.3 today (5) Leukocytosis: Urinary Tract Infection: POA Other sources: Possible Leg wound infection/Joyce Umbilical skin Infection CXR:Chronic change. No acute process. H/O MRSA Continue Daptomycin, Rocephin Day #2 Urine Cx:E.Coli, Gram negative bacilli (6) Acute kidney injury superimposed on CKD: ROSEY on CKD III CT ABD: No renal or ureteral calculi or obstructive uropathy. Likely due to hypoperfusion due to acute blood loss/IV contrast could have contributed as well Cr:2.0>>1.6 Received gentle IV fluids given H/O diastolic CHF Continue to hold diuretics Avoid nephrotoxic agents as able Resume IV fluids if needed Hyperkalemia: Hypermagnesemia: Likely due to ROSEY Hold potassium/Mag supplements Aldactone held due to ROSEY Monitor electrolytes (7) Diastolic CHF: H/O HFpEF No signs of exacerbation Monitor volume status Hold Lasix, Aldactone for now Monitor daily weights, I/Os (8) DM type 2 (diabetes mellitus, type 2): Hb A1c 6.8 11/2019 Currently not on oral hypoglycemics Monitor blood sugar AC/HS Novolog sliding scale per protocol (9) Hypertension: Hypotensive due to acute blood loss Hold Lasix, Aldactone Continue metoprolol with holding parameters Monitor BP (10) Hypothyroidism: Continue levothyroxine (11) Chronic pain: 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 On fentanyl patch at baseline 25 mcg every 72 hour Hold Narcotics if excess sedation Insomnia: Resume home meds (12) Atrial fibrillation: Chronic atrial fibrillation Rate controlled Continue metoprolol Hold warfarin due to bleeding issues Monitor INR H/O PE as per records Anticoagulation on hold due to acute blood loss Patient reports Pulm hemorrhage many years ago She denies any known H/O PE/DVT (13) Chronic respiratory failure: Secondary to COPD/asthma Chronic oxygen dependency: on 2 2 L at bedtime No signs of exacerbation Continue home inhalers (14) COPD (chronic obstructive pulmonary disease): As above (15) DVT prophylaxis: Contraindicated in setting of acute blood loss anemia No mechanical prophylaxis secondary to hematoma Code Status DNI/DNR Admission and Anticipated Discharge Date Admission Date: January 22, 2020 Subjective Patient is seen and examined at bedside Alert, awake this morning Complains of left leg pain Also reports chronic cough and RUQ discomfort--unchanged as per patient Reports Insomnia Offers no other complaints Patient had leg dressing changed today Denies any chest pain, SOB, dizziness, nausea, diarrhea Renal function improving Review of Systems Review of Systems: All systems reviewed & are unremarkable except as noted in HPI & below Physical Exam Physical Exam: Physical Exam: Vitals signs as noted above General Appearance:Morbidly Obese, no apparent distress Head: normocephalic, Atraumatic Eyes: normal inspection, EOMI Neck: supple, Trachea midline Respiratory/Chest: Decreased breath sounds, scattered wheezes Cardiovascular:Irregularly Irregular, No murmur Abdomen/GI:Soft, Non tender, Bowel sounds present, erythema around umbilicus Extremities/Musculoskelatal:normal inspection, 1-2+ B/L LE edema, Left LE in dressing Neurologic/Psych:AAOX3, grossly no focal neurological deficits Skin: normal color, warm, B/L LE ecchymosis Results & Data Results & Data ([facility]) Vital Signs (Past 12 Hours) Vital Signs Temp Pulse Pulse Pulse Resp BP Pulse Ox 01/24/20 11:29 36.9 C 74 18 92/56 L 100 01/24/20 08:00 72 01/24/20 07:31 36.9 C 69 17 124/73 98 01/24/20 03:30 37.0 C 73 19 102/63 99 Laboratory Results Short CBC 01/23/20 01/23/20 01/24/20 Range/Units 14:00 19:42 05:58 WBC 9.91 (4.8-10.8) K/uL Hgb 9.8 L 8.9 L 9.3 L (12.0-16.0) g/dL Hct 29.4 L 26.8 L 27.7 L (37-47) % Plt Count 132 (130-400) K/uL BMP 01/24/20 05:58 Sodium 134 L Potassium 4.5 D Chloride 103 Carbon Dioxide 27 BUN 49 H Creatinine 1.66 H D Glucose 105 H Calcium 8.1 L (1) Fall Encounter type: initial encounter Qualified Code(s): W19.XXXA - Unspecified fall, initial encounter (2) Hematoma of left lower extremity Encounter type: initial encounter Qualified Code(s): S80.12XA - Contusion of left lower leg, initial encounter (3) Atrial fibrillation Atrial fibrillation type: unspecified Qualified Code(s): I48.91 - Unspecified atrial fibrillation
[2020-01-24] MEDS ORDERED: ALBUT/IPRATROP 3MG/0.5MG NEB 3 ML VIAL NEB PRN (12:23)
[2020-01-24] MEDS ORDERED: DOXYCYCLINE HYCLATE 100 MG CAP PO SCH (12:30)
[2020-01-24 14:07] LABS: Hematocrit (blood only) 26.6 % (37-47); Hemoglobin 8.7 g/dL (12.0-16.0)
[2020-01-24] MEDS: cefTRIAXone SODIUM 2,000 MG in DEXTROSE 5% 50 ML IV SCH (14:50)
[2020-01-24] MEDS: CHECK FENTANYL PATCH PLACEMENT SCH ×2 (16:09→23:44)
[2020-01-24 20:04] LABS: Hematocrit (blood only) 25.9 % (37-47); Hemoglobin 8.5 g/dL (12.0-16.0)
[2020-01-24] MEDS: MONTELUKAST SODIUM 10 MG TABLET PO SCH (21:04)
[2020-01-24] MEDS: MELATONIN 3 MG TAB PO SCH (21:21)
[2020-01-24] MEDS: TRAZODONE HCL 50 MG TAB PO SCH (21:22)
[2020-01-25 06:13] LABS: Hematocrit (blood only) 27.2 % (37-47); Hemoglobin 8.8 g/dL (12.0-16.0); Mean Corpuscular Hemoglobin 32.7 pg (25-34); Mean Corpuscular Hgb Conc 32.4 g/dL (32-36); Mean Corpuscular Volume 101.1 fL (80-100); Mean Platelet Volume 10.7 fL (7.4-10.4); Platelet Count 145 K/uL (130-400); RDW Coefficient of Variation 16.7 % (11.5-14.5); RDW Standard Deviation 60.5 fL (36.4-46.3); Red Blood Count 2.69 M/uL (4.2-5.4); White Blood Count 8.34 K/uL (4.8-10.8)
[2020-01-25 06:18] LABS: INR 0.9 (0.9-1.1); Prothrombin Time 9.8 Seconds (9.0-12.0)
[2020-01-25 06:39] LABS: BUN Creatinine Ratio 31.8 (10-20); Calcium 8.4 mg/dl (8.5-10.1); Creatinine Clr Calc Pharmacy 48.2 ml/min; Est GFR (African American) 46.4; Magnesium 3.5 mg/dl (1.8-2.4); Potassium 4.3 mmol/L (3.5-5.1)
[2020-01-25] MEDS: LEVOTHYROXINE SODIUM 75 MCG TABLET PO SCH (06:45)
[2020-01-25] MEDS: INSULIN ASPART 100 UNITS/ML 3 ML PEN SC SCH ×4 (08:47→21:35)
[2020-01-25] MEDS: PREGABALIN 50 MG CAP PO SCH ×3 (08:49→17:10)
[2020-01-25] MEDS: METOPROLOL SUCC 50MG EXT REL TAB PO SCH ×2 (08:49→20:38)
[2020-01-25] MEDS: FAMOTIDINE 20 MG TAB PO SCH ×2 (08:49→20:40)
[2020-01-25] MEDS: SUCRALFATE 1 GM TAB PO SCH ×2 (08:50→20:37)
[2020-01-25] MEDS: CHOLECALCIFEROL 1,000 UNITS 25 MCG TAB PO SCH (08:50)
[2020-01-25] MEDS: DOCUSATE SODIUM 100 MG CAP PO SCH ×2 (08:51→20:38)
[2020-01-25] MEDS: allopurinoL 100 MG TAB PO SCH (08:51)
[2020-01-25] MEDS: UMECLIDINIUM BROMIDE 62.5MCG/BLISTER 7 PUFFS/INHALER INH SCH (08:55)
[2020-01-25] MEDS: MICONAZOLE NITRATE POWDER 43 GM TOP SCH ×3 (08:55→20:40)
[2020-01-25] MEDS: DULOXETINE HCL 60 MG CAP PO SCH (08:55)
[2020-01-25] MEDS: FLUTICASONE/VILANTEROL 200/25MCG 14 PUFFS/INHALER INH SCH (08:56)
[2020-01-25] MEDS: SENNA 8.6 MG TAB PO SCH ×2 (08:57→20:39)
[2020-01-25] MEDS: CHECK FENTANYL PATCH PLACEMENT SCH ×2 (08:58→16:50)
[2020-01-25] MEDS: CIPROFLOXACIN 500 MG TAB PO SCH ×2 (08:59→20:37)
[2020-01-25] MEDS ORDERED: TRAZODONE HCL 50 MG TAB PO SCH (09:00)
--- NOTE | 2020-01-25 10:26 | Hospitalist Progress Note ---
Date of Service January 25, 2020 Assessment & Plan (1) Fall: (2) Elevated INR: (3) Hematoma of left lower extremity: Patient is a 79 yr female with H/O Chronic respiratory failure with hypoxia, COPD, diastolic CHF, chronic atrial fibrillation on warfarin, DM II, CKD III, HTN, chronic pain, H/O PE/DVT, H/O MRSA who presents left lower extremity pain and swelling secondary to fall. Left Lower Extremity Hematoma Secondary to fall in setting of supratherapeutic INR due to Coumadin Intraprocedural hemorrhage of skin and subcutaneous tissue, not a complication of care --Left LE CTA:Large mixed attenuating hematoma of the posterior subcutaneous left lower leg measures up to 33.8 cm in greatest dimension and demonstrates several areas of active extravasation. No intramuscular hematoma. Demineralized appearance the bones with multifocal osteoarthritis. No acute fracture or dislocation identified. Moderate joint effusion of the knee. --CT Head:No acute intracranial abnormality. --CT ABD/Pelvis:No acute intra-abdominal or intrapelvic abnormality. No acute fracture. --CT Neck:No fractures within the cervical spine. Degenerative change --INR:4.6 on presentation --Patient received Vitamin k and K centra which revered her INR to 0.9 --S/P 2 units PRBCs --Monitor H&H and transfuse PRBCs as needed --Appreciate Orthopedics/Surgery Input --Continue wound Care, dressing --PT/OT: LLE WBAT --Needs follow up with wound clinic upon discharge --Continue to hold anticoagulation for now--Need to resume eventually given high CHADS2 score --Continue current management --May need rehab placement --Hb 8.8 today (4) Acute blood loss anemia: Secondary to large subcutaneous left lower extremity hematoma in setting of Supratherapeutic INR S/P 2 units PRBCs Continue to monitor H&H Hb:8.8 today (5) Leukocytosis: Urinary Tract Infection: POA Other sources: Possible Leg wound infection/Joyce Umbilical skin Infection CXR:Chronic change. No acute process. H/O MRSA Continue Daptomycin Day #3 Rocephin Day #2--discontinued Start Ciprofloxacin Day #1 Urine Cx:E.Coli, Morganella (6) Acute kidney injury superimposed on CKD: ROSEY on CKD III CT ABD: No renal or ureteral calculi or obstructive uropathy. Likely due to hypoperfusion due to acute blood loss/IV contrast could have contributed as well Cr:2.0>>1.6>> 1.2 Received gentle IV fluids given H/O diastolic CHF Continue to hold diuretics Avoid nephrotoxic agents as able Plan to resume diuretics in AM Hyperkalemia: Hypermagnesemia: Likely due to ROSEY Hold potassium/Mag supplements Aldactone held due to ROSEY Monitor electrolytes (7) Diastolic CHF: H/O HFpEF No signs of exacerbation Monitor volume status Hold Lasix, Aldactone for now Monitor daily weights, I/Os Resume diuretics as able (8) DM type 2 (diabetes mellitus, type 2): Hb A1c 6.8 11/2019 Currently not on oral hypoglycemics Monitor blood sugar AC/HS Novolog sliding scale per protocol (9) Hypertension: Hypotensive due to acute blood loss on presentation BP stable Hold Lasix, Aldactone Continue metoprolol with holding parameters Monitor BP (10) Hypothyroidism: Continue levothyroxine (11) Chronic pain: 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 On fentanyl patch at baseline 25 mcg every 72 hour Hold Narcotics if excess sedation Insomnia: Continue Trazodone, Melatonin (12) Atrial fibrillation: Chronic atrial fibrillation Rate controlled Continue metoprolol Hold warfarin due to bleeding issues Monitor INR Needs to resume anticoagulation eventually H/O PE as per records Anticoagulation on hold due to acute blood loss Patient reports Pulm hemorrhage many years ago She denies any known H/O PE/DVT (13) Chronic respiratory failure: Secondary to COPD/asthma Chronic oxygen dependency: on 2 2 L at bedtime No signs of exacerbation Continue home inhalers (14) COPD (chronic obstructive pulmonary disease): As above (15) DVT prophylaxis: Contraindicated in setting of acute blood loss anemia No mechanical prophylaxis secondary to large LE hematoma Code Status DNI/DNR Admission and Anticipated Discharge Date Admission Date: January 22, 2020 Subjective Patient is seen and examined at bedside Had left leg dressing change this morning Complains of leg pain especially with dressing change No events overnight Denies any chest pain, SOB, dizziness, nausea, diarrhea Renal function continues to improve Hb stable Urine Cx growing E.Coli, Moragnella Review of Systems Review of Systems: All systems reviewed & are unremarkable except as noted in HPI & below Physical Exam Physical Exam: Physical Exam: Vitals signs as noted above General Appearance:Morbidly Obese, no apparent distress Head: normocephalic, Atraumatic Eyes: normal inspection, EOMI Neck: supple, Trachea midline Respiratory/Chest: Decreased breath sounds, CTA Cardiovascular:Irregularly Irregular, No murmur Abdomen/GI:Soft, Non tender, Bowel sounds present, erythema around umbilicus Extremities/Musculoskelatal:normal inspection, 1-2+ B/L LE edema, Left LE in dressing Neurologic/Psych:AAOX3, grossly no focal neurological deficits Skin: normal color, warm, B/L LE ecchymosis Results & Data Results & Data ([facility]) Vital Signs (Past 12 Hours) Vital Signs Temp Pulse Resp BP Pulse Ox 01/25/20 07:19 36.5 C 69 17 128/75 100 01/25/20 04:21 37.1 C 76 17 132/78 96 01/24/20 23:53 36.6 C 72 18 111/69 99 Laboratory Results Short CBC 01/24/20 01/24/20 01/25/20 Range/Units 13:48 19:57 05:45 WBC 8.34 (4.8-10.8) K/uL Hgb 8.7 L 8.5 L 8.8 L (12.0-16.0) g/dL Hct 26.6 L 25.9 L 27.2 L (37-47) % Plt Count 145 (130-400) K/uL BMP 01/25/20 05:45 Sodium 137 Potassium 4.3 Chloride 106 Carbon Dioxide 26 BUN 41 H Creatinine 1.28 H D Glucose 109 H Calcium 8.4 L (1) Fall Encounter type: initial encounter Qualified Code(s): W19.XXXA - Unspecified fall, initial encounter (2) Hematoma of left lower extremity Encounter type: initial encounter Qualified Code(s): S80.12XA - Contusion of left lower leg, initial encounter (3) Atrial fibrillation Atrial fibrillation type: unspecified Qualified Code(s): I48.91 - Unspecified atrial fibrillation
[2020-01-25] MEDS: DAPTOmycin 325 MG in SYRINGE 0 ML IV SCH (12:21)
[2020-01-25] MEDS: ACETAMINOPHEN 325 MG TAB PO PRN (14:39)
[2020-01-25 20:08] LABS: Hematocrit (blood only) 27.7 % (37-47)
[2020-01-25] MEDS: TRAZODONE HCL 50 MG TAB PO SCH (20:37)
[2020-01-25] MEDS: MONTELUKAST SODIUM 10 MG TABLET PO SCH (20:39)
[2020-01-25] MEDS: MELATONIN 3 MG TAB PO SCH (20:40)
[2020-01-26] MEDS: CHECK FENTANYL PATCH PLACEMENT SCH ×4 (00:08→23:12)
[2020-01-26] MEDS: LEVOTHYROXINE SODIUM 75 MCG TABLET PO SCH (05:56)
[2020-01-26 08:12] LABS: BUN Creatinine Ratio 32.3 (10-20); Calcium 8.8 mg/dl (8.5-10.1); Creatinine Clr Calc Pharmacy 53.2 ml/min; Est GFR (African American) 52.2; Est GFR (Non-African American) 45.1; Potassium 4.1 mmol/L (3.5-5.1)
[2020-01-26 08:14] LABS: Hematocrit (blood only) 26.5 % (37-47); Hemoglobin 8.8 g/dL (12.0-16.0)
[2020-01-26] MEDS: ACETAMINOPHEN 325 MG TAB PO PRN ×3 (08:40→20:52)
--- NOTE | 2020-01-26 08:49 | Surgery Progress Note ---
Date of Service January 26, 2020 Assessment & Plan (1) Hematoma of left lower extremity: Calf appears soft, no evidence of active bleeding at this point in time. Discussed with patient that there is a linear open wound connecting to hematoma. Verbal consent obtained for evacuation of hematoma at bedside, which was performed today resulting in about 300 cc clot. Wound was copiously irrigated with saline. No active bleeding noted. Will redress with Adaptic, ABD, Kerlix. Dressing to be done daily by ELAINE with saline irrigation at time of dressing change. Will consider use of irrigating VAC, but at present, periwound area is fragile. Will alllow further demarcation of skin prior to placing a VAC. Discussed this with the patient, as well as options for definitive wound closure down the road, including healing by secondary intention, placement of split- thickness skin graft, or use of Cellutome/epidermal autografting at the wound center. Post discharge, she should follow up with me at the wound center. Subjective Patient seen at bedside today with Pooja HENRY. She voices no new complaints today. Wound has been dressed with Adaptic throughout stay so far. K-pad ordered, not currently in use. Pain controlled on Tylenol. Physical Exam Constitutional: WD/WN, vitals as above Eyes: PERRL, conjunctivae normal, anicteric sclerae ENMT: external ear and nose normal, oropharynx normal Respiratory: normal respiratory effort; no respiratory distress Musculoskeletal: Extremities: + chronic stasis changes (bilateral LE); no clubbing Skin: no rashes, warm and dry left calf soft, some improvement in ecchymosis of skin in the periphery. Large, approx 10 cm linear open wound mid posterior calf with oozing old hematoma, skin violaceous in color. Some erythema of left lower leg. No active bleeding. Psychiatric: A+Ox3, euthymic affect Results & Data Vital Signs (Past 12 Hours) Vital Signs Temp Pulse Pulse Resp BP Pulse Ox 01/26/20 07:12 99.9 F H 86 20 145/52 H 98 01/26/20 03:45 99.1 F 67 20 121/73 99 01/26/20 00:23 61 01/25/20 22:25 98.1 F 65 18 126/63 92 PG Care Time/CCT Total # of Minutes Spent Total Time Spent with Patient: Total time spent is greater than 50% in coordination of care (as documented) at patient's floor/unit and/or counseling patient: Coding Level of Care Code 77672 Subseq Hosp Care Lvl 2 (25 - SIGNIFICANT, SEPARATELY IDENTIFIABLE ) Diagnoses Hematoma of left lower extremity S80.12XA Encounter type: initial encounter CPT Codes Drainage of Skin Abscess - 58886 ([id number]) (1) Hematoma of left lower extremity Encounter type: initial encounter Qualified Code(s): S80.12XA - Contusion of left lower leg, initial encounter
[2020-01-26] MEDS: PREGABALIN 50 MG CAP PO SCH ×3 (09:10→16:56)
[2020-01-26] MEDS: FAMOTIDINE 20 MG TAB PO SCH ×2 (09:11→20:34)
[2020-01-26] MEDS: allopurinoL 100 MG TAB PO SCH (09:11)
[2020-01-26] MEDS: SENNA 8.6 MG TAB PO SCH ×2 (09:11→20:34)
[2020-01-26] MEDS: METOPROLOL SUCC 50MG EXT REL TAB PO SCH ×2 (09:12→20:35)
[2020-01-26] MEDS: DULOXETINE HCL 60 MG CAP PO SCH (09:12)
[2020-01-26] MEDS: DOCUSATE SODIUM 100 MG CAP PO SCH ×2 (09:12→20:45)
[2020-01-26] MEDS: CHOLECALCIFEROL 1,000 UNITS 25 MCG TAB PO SCH (09:13)
[2020-01-26] MEDS: SUCRALFATE 1 GM TAB PO SCH ×2 (09:13→20:32)
[2020-01-26] MEDS: DIGOXIN 0.125 MG TAB PO SCH (09:13)
[2020-01-26] MEDS: UMECLIDINIUM BROMIDE 62.5MCG/BLISTER 7 PUFFS/INHALER INH SCH (09:14)
[2020-01-26] MEDS: FLUTICASONE/VILANTEROL 200/25MCG 14 PUFFS/INHALER INH SCH (09:14)
[2020-01-26] MEDS: MICONAZOLE NITRATE POWDER 43 GM TOP SCH ×3 (09:15→20:37)
[2020-01-26] MEDS: INSULIN ASPART 100 UNITS/ML 3 ML PEN SC SCH ×4 (09:20→20:31)
[2020-01-26] MEDS: CIPROFLOXACIN / D5W 400 MG/200 ML BAG IV SCH ×2 (10:45→20:45)
[2020-01-26] MEDS: FUROSEMIDE 80 MG TAB PO SCH (11:19)
[2020-01-26] MEDS: SPIRONOLACTONE 25 MG TAB PO SCH (11:19)
[2020-01-26] MEDS: DAPTOmycin 325 MG in SYRINGE 0 ML IV SCH (12:55)
--- NOTE | 2020-01-26 13:18 | Progress Notes ---
DATE: 01/26/2020 The patient has a left calf hematoma with some skin necrosis. There was no evidence of compartment syndrome. This was likely related to her anticoagulation. The patient has also been seen by plastic surgery. I have discussed with Dr. Roldan and it would be okay at this point if orthopedic signs off of the patient's care as this appears to be more of a wound care management plastic surgery type situation for the time being. If there are any other relevant orthopedic issues, please do not hesitate to reconsult us.
--- NOTE | 2020-01-26 14:32 | Hospitalist Progress Note ---
Date of Service January 26, 2020 Assessment & Plan (1) Fall: (2) Elevated INR: (3) Hematoma of left lower extremity: Patient is a 79 yr female with H/O Chronic respiratory failure with hypoxia, COPD, diastolic CHF, chronic atrial fibrillation on warfarin, DM II, CKD III, HTN, chronic pain, H/O PE/DVT, H/O MRSA who presents left lower extremity pain and swelling secondary to fall. Left Lower Extremity Hematoma Secondary to fall in setting of supratherapeutic INR due to Coumadin Intraprocedural hemorrhage of skin and subcutaneous tissue, not a complication of care --Left LE CTA:Large mixed attenuating hematoma of the posterior subcutaneous left lower leg measures up to 33.8 cm in greatest dimension and demonstrates several areas of active extravasation. No intramuscular hematoma. Demineralized appearance the bones with multifocal osteoarthritis. No acute fracture or dislocation identified. Moderate joint effusion of the knee. --CT Head:No acute intracranial abnormality. --CT ABD/Pelvis:No acute intra-abdominal or intrapelvic abnormality. No acute fracture. --CT Neck:No fractures within the cervical spine. Degenerative change --INR:4.6 on presentation --Patient received Vitamin k and K centra which revered her INR to 0.9 --S/P 2 units PRBCs --Monitor H&H and transfuse PRBCs as needed --Appreciate Orthopedics/Plastic Surgery Input --Continue wound Care, dressing --PT/OT: LLE WBAT --Will need Wound VAC placed eventually --Needs follow up with wound clinic upon discharge --CBC stable --Had evacuation of hematoma today (4) Acute blood loss anemia: Secondary to large subcutaneous left lower extremity hematoma in setting of Supratherapeutic INR S/P 2 units PRBCs Continue to monitor H&H Hb:8.8 today (5) Leukocytosis: Urinary Tract Infection: POA Other sources: Possible Leg wound infection/Joyce Umbilical skin Infection CXR:Chronic change. No acute process. H/O MRSA Continue Daptomycin Day #4 Rocephin Day #2--discontinued Continue Ciprofloxacin Day #2 Urine Cx:E.Coli, Morganella Blood Cx:pending (6) Acute kidney injury superimposed on CKD: ROSEY on CKD III CT ABD: No renal or ureteral calculi or obstructive uropathy. Likely due to hypoperfusion due to acute blood loss/IV contrast could have contributed as well Cr:2.0>>1.6>> 1.2>>1.16 Received gentle IV fluids given H/O diastolic CHF Avoid nephrotoxic agents as able Monitor renal function Hyperkalemia: Hypermagnesemia: Likely due to ROSEY Hold potassium/Mag supplements Monitor electrolytes Diuretics resumed (7) Diastolic CHF: H/O HFpEF No signs of exacerbation Monitor volume status Lasix, Aldactone held initially due to ROSEY Monitor daily weights, I/Os Resume diuretics today (8) DM type 2 (diabetes mellitus, type 2): Hb A1c 6.8 11/2019 Currently not on oral hypoglycemics Monitor blood sugar AC/HS Novolog sliding scale per protocol (9) Hypertension: Hypotensive due to acute blood loss on presentation BP stable Continue metoprolol with holding parameters Also on diuretics Monitor BP (10) Hypothyroidism: Continue levothyroxine (11) Chronic pain: 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 On fentanyl patch at baseline 25 mcg every 72 hour Hold Narcotics if excess sedation Insomnia: Continue Trazodone, Melatonin (12) Atrial fibrillation: Chronic atrial fibrillation Rate controlled Continue metoprolol Hold warfarin due to bleeding issues Monitor INR Needs to resume anticoagulation eventually H/O PE as per records Anticoagulation on hold due to acute blood loss Patient reports Pulm hemorrhage many years ago She denies any known H/O PE/DVT (13) Chronic respiratory failure: Secondary to COPD/asthma Chronic oxygen dependency: on 2 L at bedtime No signs of exacerbation Continue home inhalers (14) COPD (chronic obstructive pulmonary disease): As above (15) DVT prophylaxis: Contraindicated in setting of acute blood loss anemia No mechanical prophylaxis secondary to large LE hematoma Code Status DNI/DNR Disposition: Bed Hold at [facility] Admission and Anticipated Discharge Date Admission Date: January 22, 2020 Subjective Patient is seen and examined at bedside Was febrile this morning Had evacuation of hematoma today Left leg pain is controlled Denies any chest pain, SOB, dizziness, nausea, diarrhea Will resume diuretics today Review of Systems Review of Systems: All systems reviewed & are unremarkable except as noted in HPI & below Physical Exam Physical Exam: Physical Exam: Vitals signs as noted above General Appearance:Morbidly Obese, no apparent distress Head: normocephalic, Atraumatic Eyes: normal inspection, EOMI Neck: supple, Trachea midline Respiratory/Chest: Decreased breath sounds, CTA Cardiovascular:Irregularly Irregular, No murmur Abdomen/GI:Soft, Non tender, Bowel sounds present, erythema around umbilicus Extremities/Musculoskelatal:normal inspection, 1-2+ B/L LE edema, Left LE in dressing Neurologic/Psych:AAOX3, grossly no focal neurological deficits Skin: normal color, warm, B/L LE ecchymosis Results & Data Results & Data ([facility]) Vital Signs (Past 12 Hours) Vital Signs Temp Pulse Pulse Resp BP Pulse Ox 01/26/20 11:11 36.7 C 64 18 110/68 92 01/26/20 09:13 86 01/26/20 07:12 37.7 C H 86 20 145/52 H 98 01/26/20 03:45 37.3 C 67 20 121/73 99 Laboratory Results Short CBC 01/25/20 01/26/20 Range/Units 19:57 07:37 Hgb 9.0 L 8.8 L (12.0-16.0) g/dL Hct 27.7 L 26.5 L (37-47) % BMP 01/26/20 07:37 Sodium 136 Potassium 4.1 Chloride 104 Carbon Dioxide 26 BUN 38 H Creatinine 1.16 Glucose 99 Calcium 8.8 (1) Fall Encounter type: initial encounter Qualified Code(s): W19.XXXA - Unspecified fall, initial encounter (2) Hematoma of left lower extremity Encounter type: initial encounter Qualified Code(s): S80.12XA - Contusion of left lower leg, initial encounter (3) Atrial fibrillation Atrial fibrillation type: unspecified Qualified Code(s): I48.91 - Unspecified atrial fibrillation
[2020-01-26] MEDS: MONTELUKAST SODIUM 10 MG TABLET PO SCH (20:35)
[2020-01-26] MEDS: MELATONIN 3 MG TAB PO SCH (20:36)
[2020-01-26] MEDS: TRAZODONE HCL 50 MG TAB PO SCH (20:45)
[2020-01-27] MEDS: ACETAMINOPHEN 325 MG TAB PO PRN (02:22)
[2020-01-27 06:16] LABS: Hematocrit (blood only) 29.2 % (37-47); Hemoglobin 9.6 g/dL (12.0-16.0); Mean Corpuscular Hemoglobin 32.9 pg (25-34); Mean Corpuscular Hgb Conc 32.9 g/dL (32-36); Mean Platelet Volume 10.3 fL (7.4-10.4); Platelet Count 184 K/uL (130-400); RDW Coefficient of Variation 16.4 % (11.5-14.5); RDW Standard Deviation 58.3 fL (36.4-46.3); Red Blood Count 2.92 M/uL (4.2-5.4); White Blood Count 7.71 K/uL (4.8-10.8)
[2020-01-27] MEDS: LEVOTHYROXINE SODIUM 75 MCG TABLET PO SCH (06:22)
[2020-01-27 06:42] LABS: BUN Creatinine Ratio 33.7 (10-20); Calcium 9.1 mg/dl (8.5-10.1); Creatinine Clr Calc Pharmacy 46.1 ml/min; Est GFR (African American) 43.9; Est GFR (Non-African American) 37.9; Potassium 3.7 mmol/L (3.5-5.1)
[2020-01-27] MEDS: MICONAZOLE NITRATE POWDER 43 GM TOP SCH ×3 (07:46→20:04)
[2020-01-27] MEDS: DOCUSATE SODIUM 100 MG CAP PO SCH ×2 (07:47→20:03)
[2020-01-27] MEDS: METOPROLOL SUCC 50MG EXT REL TAB PO SCH ×2 (07:47→20:04)
[2020-01-27] MEDS: allopurinoL 100 MG TAB PO SCH (07:47)
[2020-01-27] MEDS: UMECLIDINIUM BROMIDE 62.5MCG/BLISTER 7 PUFFS/INHALER INH SCH (07:47)
[2020-01-27] MEDS: FLUTICASONE/VILANTEROL 200/25MCG 14 PUFFS/INHALER INH SCH (07:47)
[2020-01-27] MEDS: PREGABALIN 50 MG CAP PO SCH ×3 (07:48→17:38)
[2020-01-27] MEDS: DULOXETINE HCL 60 MG CAP PO SCH (07:48)
[2020-01-27] MEDS: SENNA 8.6 MG TAB PO SCH ×2 (07:48→20:03)
[2020-01-27] MEDS: FAMOTIDINE 20 MG TAB PO SCH ×2 (07:48→20:03)
[2020-01-27] MEDS: SUCRALFATE 1 GM TAB PO SCH ×2 (07:48→20:03)
[2020-01-27] MEDS: FUROSEMIDE 80 MG TAB PO SCH (07:48)
[2020-01-27] MEDS: SPIRONOLACTONE 25 MG TAB PO SCH (07:48)
[2020-01-27] MEDS: CHECK FENTANYL PATCH PLACEMENT SCH ×3 (07:49→23:34)
[2020-01-27] MEDS: CHOLECALCIFEROL 1,000 UNITS 25 MCG TAB PO SCH (07:49)
[2020-01-27] MEDS: CIPROFLOXACIN / D5W 400 MG/200 ML BAG IV SCH ×2 (08:58→20:04)
[2020-01-27] MEDS: INSULIN ASPART 100 UNITS/ML 3 ML PEN SC SCH ×4 (08:58→20:13)
[2020-01-27] MEDS: HEPARIN SOD 5,000 UNIT/0.5 ML VIAL SQ SCH ×2 (08:58→20:04)
[2020-01-27] MEDS: fentaNYL 25 MCG/HR TDSY TD SCH (11:05)
[2020-01-27] MEDS: DAPTOmycin 325 MG in SYRINGE 0 ML IV SCH (12:21)
--- NOTE | 2020-01-27 15:09 | Hospitalist Progress Note ---
Date of Service January 27, 2020 Assessment & Plan (1) Fall: (2) Elevated INR: (3) Hematoma of left lower extremity: Patient is a 79 yr female with H/O Chronic respiratory failure with hypoxia, COPD, diastolic CHF, chronic atrial fibrillation on warfarin, DM II, CKD III, HTN, chronic pain, H/O PE/DVT, H/O MRSA who presents left lower extremity pain and swelling secondary to fall. Left Lower Extremity Hematoma Secondary to fall in setting of supratherapeutic INR due to Coumadin Intraprocedural hemorrhage of skin and subcutaneous tissue, not a complication of care --Left LE CTA:Large mixed attenuating hematoma of the posterior subcutaneous left lower leg measures up to 33.8 cm in greatest dimension and demonstrates several areas of active extravasation. No intramuscular hematoma. Demineralized appearance the bones with multifocal osteoarthritis. No acute fracture or dislocation identified. Moderate joint effusion of the knee. --CT Head:No acute intracranial abnormality. --CT ABD/Pelvis:No acute intra-abdominal or intrapelvic abnormality. No acute fracture. --CT Neck:No fractures within the cervical spine. Degenerative change --INR:4.6 on presentation --Patient received Vitamin k and K centra which revered her INR to 0.9 --S/P 2 units PRBCs --Monitor H&H and transfuse PRBCs as needed --Appreciate Orthopedics/Plastic Surgery Input --Continue wound Care, dressing --PT/OT: LLE WBAT --Will need Wound VAC placed eventually once further skin demarcation --Needs follow up with wound clinic upon discharge --Had evacuation of hematoma on 01/26/20 --Hb stable --Continue wound care (4) Acute blood loss anemia: Secondary to large subcutaneous left lower extremity hematoma in setting of Supratherapeutic INR S/P 2 units PRBCs Continue to monitor H&H Hb:9.6 today (5) Leukocytosis: Urinary Tract Infection: POA Other sources: Possible Leg wound infection/Joyce Umbilical skin Infection CXR:Chronic change. No acute process. H/O MRSA Continue Daptomycin Day #5 Rocephin Day #2--discontinued Continue Ciprofloxacin Day #3 Urine Cx:E.Coli, Morganella Blood Cx: No growth to date (6) Acute kidney injury superimposed on CKD: ROSEY on CKD III CT ABD: No renal or ureteral calculi or obstructive uropathy. Likely due to hypoperfusion due to acute blood loss/IV contrast could have contributed as well Cr:2.0>>1.6>> 1.3 Received gentle IV fluids given H/O diastolic CHF Avoid nephrotoxic agents as able Monitor renal function Hyperkalemia: Hypermagnesemia: Likely due to ROSEY Hold potassium/Mag supplements Monitor electrolytes Lasix resumed (7) Diastolic CHF: H/O HFpEF No signs of exacerbation Monitor volume status Lasix, Aldactone held initially due to ROSEY Monitor daily weights, I/Os Resumed lasix Aldactone, Metolazone held for now (8) DM type 2 (diabetes mellitus, type 2): Hb A1c 6.8 11/2019 Currently not on oral hypoglycemics Monitor blood sugar AC/HS Novolog sliding scale per protocol (9) Hypertension: Hypotensive due to acute blood loss on presentation BP Variable Continue metoprolol with holding parameters Monitor BP (10) Hypothyroidism: Continue levothyroxine (11) Chronic pain: 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 On fentanyl patch at baseline 25 mcg every 72 hour Hold Narcotics if excess sedation Insomnia: Continue Trazodone, Melatonin (12) Atrial fibrillation: Chronic atrial fibrillation Rate controlled Continue metoprolol Coumadin held Started on Heparin SQ for DVT Px today Will need to be restarted on coumadin for Afib if HB remains stable and no plan for procedure H/O PE as per records Anticoagulation on hold due to acute blood loss Patient reports Pulm hemorrhage many years ago She denies any known H/O PE/DVT (13) Chronic respiratory failure: Secondary to COPD/asthma Chronic oxygen dependency: on 2 L at bedtime No signs of exacerbation Continue home inhalers (14) COPD (chronic obstructive pulmonary disease): As above (15) DVT prophylaxis: Heparin SQ Code Status DNI/DNR Disposition: Bed Hold at [facility] Admission and Anticipated Discharge Date Admission Date: January 22, 2020 Subjective Patient is seen and examined at bedside States feeling anxious this morning Afebrile today Denies Left leg pain today Also denies any chest pain, SOB, dizziness, nausea, diarrhea Hb is stable Review of Systems Review of Systems: All systems reviewed & are unremarkable except as noted in HPI & below Physical Exam Physical Exam: Physical Exam: Vitals signs as noted above General Appearance:Morbidly Obese, no apparent distress Head: normocephalic, Atraumatic Eyes: normal inspection, EOMI Neck: supple, Trachea midline Respiratory/Chest: Decreased breath sounds, CTA Cardiovascular:Irregularly Irregular, No murmur Abdomen/GI:Soft, Non tender, Bowel sounds present, erythema around umbilicus Extremities/Musculoskelatal:normal inspection, 1-2+ B/L LE edema, Left LE in dressing Neurologic/Psych:AAOX3, grossly no focal neurological deficits Skin: normal color, warm, B/L LE ecchymosis Results & Data Results & Data ([facility]) Vital Signs (Past 12 Hours) Vital Signs Temp Pulse Resp BP BP Pulse Ox 01/27/20 11:48 36.5 C 77 20 92/53 L 90 01/27/20 07:03 36.8 C 88 20 116/70 92 01/27/20 03:35 36.9 C 72 18 117/69 93 Laboratory Results Short CBC 01/27/20 Range/Units 05:54 WBC 7.71 (4.8-10.8) K/uL Hgb 9.6 L (12.0-16.0) g/dL Hct 29.2 L (37-47) % Plt Count 184 (130-400) K/uL BMP 01/27/20 05:54 Sodium 136 Potassium 3.7 Chloride 103 Carbon Dioxide 24 BUN 45 H Creatinine 1.34 H Glucose 110 H Calcium 9.1 (1) Fall Encounter type: initial encounter Qualified Code(s): W19.XXXA - Unspecified fall, initial encounter (2) Hematoma of left lower extremity Encounter type: initial encounter Qualified Code(s): S80.12XA - Contusion of left lower leg, initial encounter (3) Atrial fibrillation Atrial fibrillation type: unspecified Qualified Code(s): I48.91 - Unspecified atrial fibrillation
[2020-01-27] MEDS: MONTELUKAST SODIUM 10 MG TABLET PO SCH (20:03)
[2020-01-27] MEDS: TRAZODONE HCL 50 MG TAB PO SCH (20:03)
[2020-01-27] MEDS: MELATONIN 3 MG TAB PO SCH (20:03)
[2020-01-27 20:24] LABS: Hematocrit (blood only) 29.5 % (37-47); Hemoglobin 9.8 g/dL (12.0-16.0)
[2020-01-28] MEDS: LEVOTHYROXINE SODIUM 75 MCG TABLET PO SCH (05:33)
[2020-01-28 06:55] LABS: Hematocrit (blood only) 27.7 % (37-47); Hemoglobin 9.3 g/dL (12.0-16.0); Mean Corpuscular Hemoglobin 33.1 pg (25-34); Mean Corpuscular Hgb Conc 33.6 g/dL (32-36); Mean Corpuscular Volume 98.6 fL (80-100); Mean Platelet Volume 9.8 fL (7.4-10.4); Platelet Count 211 K/uL (130-400); RDW Coefficient of Variation 16.3 % (11.5-14.5); RDW Standard Deviation 57.8 fL (36.4-46.3); Red Blood Count 2.81 M/uL (4.2-5.4); White Blood Count 7.71 K/uL (4.8-10.8)
[2020-01-28 07:33] LABS: BUN Creatinine Ratio 33.3 (10-20); Calcium 8.8 mg/dl (8.5-10.1); Creatinine Clr Calc Pharmacy 53.7 ml/min; Est GFR (African American) 52.8; Est GFR (Non-African American) 45.5; Magnesium 2.3 mg/dl (1.8-2.4); Potassium 3.4 mmol/L (3.5-5.1)
[2020-01-28] MEDS: PREGABALIN 50 MG CAP PO SCH ×3 (08:05→17:42)
[2020-01-28] MEDS: CHOLECALCIFEROL 1,000 UNITS 25 MCG TAB PO SCH (08:05)
[2020-01-28] MEDS: DOCUSATE SODIUM 100 MG CAP PO SCH ×2 (08:05→21:02)
[2020-01-28] MEDS: ACETAMINOPHEN 325 MG TAB PO PRN (08:05)
[2020-01-28] MEDS: METOPROLOL SUCC 50MG EXT REL TAB PO SCH ×2 (08:05→20:48)
[2020-01-28] MEDS: DIGOXIN 0.125 MG TAB PO SCH (08:05)
[2020-01-28] MEDS: allopurinoL 100 MG TAB PO SCH (08:06)
[2020-01-28] MEDS: FUROSEMIDE 80 MG TAB PO SCH (08:06)
[2020-01-28] MEDS: DULOXETINE HCL 60 MG CAP PO SCH (08:06)
[2020-01-28] MEDS: SENNA 8.6 MG TAB PO SCH ×2 (08:06→21:04)
[2020-01-28] MEDS: FAMOTIDINE 20 MG TAB PO SCH ×2 (08:06→20:58)
[2020-01-28] MEDS: SUCRALFATE 1 GM TAB PO SCH ×2 (08:07→20:59)
[2020-01-28] MEDS: CHECK FENTANYL PATCH PLACEMENT SCH ×2 (08:07→17:43)
[2020-01-28] MEDS: FLUTICASONE/VILANTEROL 200/25MCG 14 PUFFS/INHALER INH SCH (08:07)
[2020-01-28] MEDS: MICONAZOLE NITRATE POWDER 43 GM TOP SCH ×3 (08:08→21:00)
[2020-01-28] MEDS: UMECLIDINIUM BROMIDE 62.5MCG/BLISTER 7 PUFFS/INHALER INH SCH (08:08)
[2020-01-28] MEDS: HEPARIN SOD 5,000 UNIT/0.5 ML VIAL SQ SCH ×2 (08:08→21:04)
[2020-01-28] MEDS: INSULIN ASPART 100 UNITS/ML 3 ML PEN SC SCH ×4 (08:14→21:03)
[2020-01-28] MEDS ORDERED: metOLazone 2.5 MG TABLET PO SCH (09:00)
[2020-01-28] MEDS: CIPROFLOXACIN / D5W 400 MG/200 ML BAG IV SCH (09:23)
--- NOTE | 2020-01-28 09:44 | Hospitalist Progress Note ---
Date of Service January 28, 2020 Assessment & Plan (1) Fall: (2) Elevated INR: (3) Hematoma of left lower extremity: Patient is a 79 yr female with H/O Chronic respiratory failure with hypoxia, COPD, diastolic CHF, chronic atrial fibrillation on warfarin, DM II, CKD III, HTN, chronic pain, H/O PE/DVT, H/O MRSA who presents left lower extremity pain and swelling secondary to fall. Left Lower Extremity Hematoma Secondary to fall in setting of supratherapeutic INR due to Coumadin Intraprocedural hemorrhage of skin and subcutaneous tissue, not a complication of care --Left LE CTA:Large mixed attenuating hematoma of the posterior subcutaneous left lower leg measures up to 33.8 cm in greatest dimension and demonstrates several areas of active extravasation. No intramuscular hematoma. Demineralized appearance the bones with multifocal osteoarthritis. No acute fracture or dislocation identified. Moderate joint effusion of the knee. --CT Head:No acute intracranial abnormality. --CT ABD/Pelvis:No acute intra-abdominal or intrapelvic abnormality. No acute fracture. --CT Neck:No fractures within the cervical spine. Degenerative change --INR:4.6 on presentation --Patient received Vitamin k and K centra which revered her INR to 0.9 --S/P 2 units PRBCs --Monitor H&H and transfuse PRBCs as needed --Appreciate Orthopedics/Plastic Surgery Input --Continue wound Care, dressing --PT/OT: LLE WBAT --Will need Wound VAC placed eventually once further skin demarcation --Needs follow up with wound clinic upon discharge --Had evacuation of hematoma on 01/26/20 --Hb stable --Continue wound care (4) Acute blood loss anemia: Secondary to large subcutaneous left lower extremity hematoma in setting of Supratherapeutic INR S/P 2 units PRBCs Continue to monitor H&H Hb:9.6 today (5) Leukocytosis: Urinary Tract Infection: POA Other sources: Possible Leg wound infection/Joyce Umbilical skin Infection CXR:Chronic change. No acute process. H/O MRSA Continue Daptomycin Day #5 Rocephin Day #2--discontinued Continue Ciprofloxacin Day #3 Urine Cx:E.Coli, Morganella Blood Cx: No growth to date (6) Acute kidney injury superimposed on CKD: ROSEY on CKD III CT ABD: No renal or ureteral calculi or obstructive uropathy. Likely due to hypoperfusion due to acute blood loss/IV contrast could have contributed as well Cr:2.0>>1.6>> 1.3 Received gentle IV fluids given H/O diastolic CHF Avoid nephrotoxic agents as able Monitor renal function Hyperkalemia: Hypermagnesemia: Likely due to ROSEY Hold potassium/Mag supplements Monitor electrolytes Lasix resumed (7) Diastolic CHF: H/O HFpEF No signs of exacerbation Monitor volume status Lasix, Aldactone held initially due to ROSEY Monitor daily weights, I/Os Resumed lasix Aldactone, Metolazone held for now (8) DM type 2 (diabetes mellitus, type 2): Hb A1c 6.8 11/2019 Currently not on oral hypoglycemics Monitor blood sugar AC/HS Novolog sliding scale per protocol (9) Hypertension: Hypotensive due to acute blood loss on presentation BP Variable Continue metoprolol with holding parameters Monitor BP (10) Hypothyroidism: Continue levothyroxine (11) Chronic pain: 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 On fentanyl patch at baseline 25 mcg every 72 hour Hold Narcotics if excess sedation Insomnia: Continue Trazodone, Melatonin (12) Atrial fibrillation: Chronic atrial fibrillation Rate controlled Continue metoprolol Coumadin held Started on Heparin SQ for DVT Px today Will need to be restarted on coumadin for Afib if HB remains stable and no plan for procedure H/O PE as per records Anticoagulation on hold due to acute blood loss Patient reports Pulm hemorrhage many years ago She denies any known H/O PE/DVT (13) Chronic respiratory failure: Secondary to COPD/asthma Chronic oxygen dependency: on 2 L at bedtime No signs of exacerbation Continue home inhalers (14) COPD (chronic obstructive pulmonary disease): As above (15) DVT prophylaxis: Heparin SQ Code Status DNI/DNR Disposition: Bed Hold at [facility] Labs checked ROS-No Headache, No Visual Changes, No Nausea, No Vomiting, No Fever, No Chills, No Neck Pain or Stiffness, No Chest Pain, No Palpitations, No SOB, No BARBOUR, No Cough, No Sputum, No Wheezing, No Abdominal Pain, No Diarrhea, No Hematemesis, No Hemoptysis, No Unexpected Weight Loss, No Flank pain, No Melena, No Hematochezia, No Frequency, No Urgency, No Burning, No Hematuria, No Rashes, No Diaphoresis. Appetite is Normal, weak Physical Exam Gen-AAO x 3, NAD, Afebrile, obese Head-NCAT, EOMI, PERRLA, Anicteric Sclera, No Posterior Pharyngeal Erythema Neck-Supple, No JVD, No Thyromegaly, No Masses, No LAD, No Bruits Lungs-Clear to Auscultation Bilaterally, No Rales, No Rhonchi, No Wheezing, No Crepitus Chest-No S4, +S1, +S2, No S3, No Murmurs, No Rubs, No Gallops, No Ectopy Abdomen-Soft, Bowel Sounds Present, Non Tender, Non Distended, No Hepatomegaly, No Splenomegaly, No Palpable Masses, No Rebound, No Rigidity, No Guarding Musculoskeletal-Full Range of Motion Bilaterally, No CVAT Extremities-LLE Gauze wrapped Nuero-Cranial Nerves II-XII grossly intact, Motor WNL, DTRs WNL, Strength WNL, Non Focal Psych-Normal Mood Admission and Anticipated Discharge Date Admission Date: January 22, 2020 Results & Data Results & Data ([facility]) Vital Signs (Past 12 Hours) Vital Signs Temp Pulse Pulse Resp BP Pulse Ox 01/28/20 08:05 72 01/28/20 07:03 36.5 C 75 18 118/73 98 01/28/20 03:47 37.3 C 80 19 110/73 96 01/28/20 00:14 37.1 C 76 18 98/64 L 92 (1) Fall Encounter type: initial encounter Qualified Code(s): W19.XXXA - Unspecified fall, initial encounter (2) Hematoma of left lower extremity Encounter type: initial encounter Qualified Code(s): S80.12XA - Contusion of left lower leg, initial encounter (3) Atrial fibrillation Atrial fibrillation type: unspecified Qualified Code(s): I48.91 - Unspecified atrial fibrillation
[2020-01-28] MEDS ORDERED: MAGNESIUM HYDROXIDE SUSP 30 ML UDC PO PRN (11:20)
[2020-01-28] MEDS: DAPTOmycin 325 MG in SYRINGE 0 ML IV SCH (12:08)
--- NOTE | 2020-01-28 14:25 | Surgery Progress Note ---
Date of Service January 28, 2020 Assessment & Plan (1) Hematoma of left lower extremity: Skin flaps are beginning to adhere, difficult to irrigate. Skin is demarcating, but not ready for debridement yet. Will await further evolution of surrounding tissue. Debridement can likely be performed at bedside, followed by placement of a VAC. Will need follow up at [facility] post discharge. For now, continue same dressings. Will continue to follow. Subjective Patient seen and examined at bedside with Margareth HENRY. Complains of pain left leg. Physical Exam Constitutional: WD/WN, vitals as above Skin: no rashes, warm and dry + wound Left lower leg with resolving hematoma. Clear dermarcation, developing firm eschar posterior calf. Some bogginess noted medially. Anteriomedial aspect appears viable. erythema improving Psychiatric: A+Ox3, euthymic affect Results & Data Vital Signs (Past 12 Hours) Vital Signs Temp Pulse Pulse Resp BP Pulse Ox 01/28/20 08:05 72 01/28/20 07:03 97.7 F 75 18 118/73 98 01/28/20 03:47 99.1 F 80 19 110/73 96 PG Care Time/CCT Total # of Minutes Spent Total Time Spent with Patient: Total time spent is greater than 50% in coordination of care (as documented) at patient's floor/unit and/or counseling patient: C[place] [address] Subseq Hosp Care Lvl 2 Patient Type Established History Problem Focused Exam Expanded Problem Focused Medical Decision Making Low Complexity Diagnoses Hematoma of left lower extremity S80.12XA Encounter type: initial encounter (1) Hematoma of left lower extremity Encounter type: initial encounter Qualified Code(s): S80.12XA - Contusion of left lower leg, initial encounter
[2020-01-28] MEDS: MELATONIN 3 MG TAB PO SCH (20:57)
[2020-01-28] MEDS: CIPROFLOXACIN 500 MG TAB PO SCH (20:59)
[2020-01-28] MEDS: TRAZODONE HCL 50 MG TAB PO SCH (21:02)
[2020-01-28] MEDS: MONTELUKAST SODIUM 10 MG TABLET PO SCH (21:04)
[2020-01-29] MEDS: CHECK FENTANYL PATCH PLACEMENT SCH ×3 (01:05→16:03)
[2020-01-29] MEDS: ACETAMINOPHEN 325 MG TAB PO PRN ×3 (04:58→12:29)
[2020-01-29] MEDS: LEVOTHYROXINE SODIUM 75 MCG TABLET PO SCH (04:59)
[2020-01-29 06:30] LABS: Hematocrit (blood only) 27.1 % (37-47); Hemoglobin 9.1 g/dL (12.0-16.0); Mean Corpuscular Hemoglobin 33.1 pg (25-34); Mean Corpuscular Hgb Conc 33.6 g/dL (32-36); Mean Corpuscular Volume 98.5 fL (80-100); Mean Platelet Volume 10.2 fL (7.4-10.4); Nucleated RBC # (auto) 0.04 K/uL (0-0); Nucleated RBC % (auto) 0.4 %; Platelet Count 247 K/uL (130-400); RDW Coefficient of Variation 16.2 % (11.5-14.5); Red Blood Count 2.75 M/uL (4.2-5.4); White Blood Count 8.53 K/uL (4.8-10.8)
[2020-01-29 07:00] LABS: Albumin Level 2.1 gm/dl (3.4-5.0); BUN Creatinine Ratio 31.8 (10-20); Calcium 8.6 mg/dl (8.5-10.1); Creatinine Clr Calc Pharmacy 40.9 ml/min; Est GFR (African American) 38.3; Potassium 3.7 mmol/L (3.5-5.1)
[2020-01-29 07:03] LABS: Albumin Globulin Ratio 0.6 (0.9-2); Bilirubin,Total 0.3 mg/dl (0.2-1); Globulin 3.3 gm/dl (2.5-4.0); Total Protein 5.4 gm/dl (6.4-8.2)
--- NOTE | 2020-01-29 08:04 | Hospitalist Progress Note ---
Date of Service January 29, 2020 Assessment & Plan (1) Fall: (2) Elevated INR: (3) Hematoma of left lower extremity: Patient is a 79 yr female with H/O Chronic respiratory failure with hypoxia, COPD, diastolic CHF, chronic atrial fibrillation on warfarin, DM II, CKD III, HTN, chronic pain, H/O PE/DVT, H/O MRSA who presents left lower extremity pain and swelling secondary to fall. Left Lower Extremity Hematoma Secondary to fall in setting of supratherapeutic INR due to Coumadin Intraprocedural hemorrhage of skin and subcutaneous tissue, not a complication of care --Left LE CTA:Large mixed attenuating hematoma of the posterior subcutaneous left lower leg measures up to 33.8 cm in greatest dimension and demonstrates several areas of active extravasation. No intramuscular hematoma. Demineralized appearance the bones with multifocal osteoarthritis. No acute fracture or dislocation identified. Moderate joint effusion of the knee. --CT Head:No acute intracranial abnormality. --CT ABD/Pelvis:No acute intra-abdominal or intrapelvic abnormality. No acute fracture. --CT Neck:No fractures within the cervical spine. Degenerative change --INR:4.6 on presentation --Patient received Vitamin k and K centra which revered her INR to 0.9 --S/P 2 units PRBCs --Monitor H&H and transfuse PRBCs as needed --Appreciate Orthopedics/Plastic Surgery Input --Continue wound Care, dressing --PT/OT: LLE WBAT --Will need Wound VAC placed eventually once further skin demarcation --Needs follow up with wound clinic upon discharge --Had evacuation of hematoma on 01/26/20 --Hb stable --Continue wound care (4) Acute blood loss anemia: Secondary to large subcutaneous left lower extremity hematoma in setting of Supratherapeutic INR S/P 2 units PRBCs Continue to monitor H&H Hb:9.6 today (5) Leukocytosis: Urinary Tract Infection: POA Other sources: Possible Leg wound infection/Joyce Umbilical skin Infection CXR:Chronic change. No acute process. H/O MRSA Continue Daptomycin Day #5 Rocephin Day #2--discontinued Continue Ciprofloxacin Day #3 Urine Cx:E.Coli, Morganella Blood Cx: No growth to date (6) Acute kidney injury superimposed on CKD: ROSEY on CKD III CT ABD: No renal or ureteral calculi or obstructive uropathy. Likely due to hypoperfusion due to acute blood loss/IV contrast could have contributed as well Cr:2.0>>1.6>> 1.3 Received gentle IV fluids given H/O diastolic CHF Avoid nephrotoxic agents as able Monitor renal function Hyperkalemia: Hypermagnesemia: Likely due to ROSEY Hold potassium/Mag supplements Monitor electrolytes Lasix resumed (7) Diastolic CHF: H/O HFpEF No signs of exacerbation Monitor volume status Lasix, Aldactone held initially due to ROSEY Monitor daily weights, I/Os Resumed lasix Aldactone, Metolazone held for now (8) DM type 2 (diabetes mellitus, type 2): Hb A1c 6.8 11/2019 Currently not on oral hypoglycemics Monitor blood sugar AC/HS Novolog sliding scale per protocol (9) Hypertension: Hypotensive due to acute blood loss on presentation BP Variable Continue metoprolol with holding parameters Monitor BP (10) Hypothyroidism: Continue levothyroxine (11) Chronic pain: 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 On fentanyl patch at baseline 25 mcg every 72 hour Hold Narcotics if excess sedation Insomnia: Continue Trazodone, Melatonin (12) Atrial fibrillation: Chronic atrial fibrillation Rate controlled Continue metoprolol Coumadin held Started on Heparin SQ for DVT Px today Will need to be restarted on coumadin for Afib if HB remains stable and no plan for procedure H/O PE as per records Anticoagulation on hold due to acute blood loss Patient reports Pulm hemorrhage many years ago She denies any known H/O PE/DVT (13) Chronic respiratory failure: Secondary to COPD/asthma Chronic oxygen dependency: on 2 L at bedtime No signs of exacerbation Continue home inhalers (14) COPD (chronic obstructive pulmonary disease): As above (15) DVT prophylaxis: Heparin SQ Code Status DNI/DNR Disposition: Bed Hold at [facility], Wound vac after bedside debridement, hopefully Today or Sunday, Outpatient Wound Clinic on DC Labs checked ROS-No Headache, No Visual Changes, No Nausea, No Vomiting, No Fever, No Chills, No Neck Pain or Stiffness, No Chest Pain, No Palpitations, No SOB, No BARBOUR, No Cough, No Sputum, No Wheezing, No Abdominal Pain, No Diarrhea, No Hematemesis, No Hemoptysis, No Unexpected Weight Loss, No Flank pain, No Melena, No Hematochezia, No Frequency, No Urgency, No Burning, No Hematuria, No Rashes, No Diaphoresis. Appetite is Normal, weak Physical Exam Gen-AAO x 3, NAD, Afebrile, obese Head-NCAT, EOMI, PERRLA, Anicteric Sclera, No Posterior Pharyngeal Erythema Neck-Supple, No JVD, No Thyromegaly, No Masses, No LAD, No Bruits Lungs-Clear to Auscultation Bilaterally, No Rales, No Rhonchi, No Wheezing, No Crepitus Chest-No S4, +S1, +S2, No S3, No Murmurs, No Rubs, No Gallops, No Ectopy Abdomen-Soft, Bowel Sounds Present, Non Tender, Non Distended, No Hepatomegaly, No Splenomegaly, No Palpable Masses, No Rebound, No Rigidity, No Guarding Musculoskeletal-Full Range of Motion Bilaterally, No CVAT Extremities-LLE Gauze wrapped Nuero-Cranial Nerves II-XII grossly intact, Motor WNL, DTRs WNL, Strength WNL, Non Focal Psych-Normal Mood Admission and Anticipated Discharge Date Admission Date: January 22, 2020 Results & Data Results & Data ([facility]) Vital Signs (Past 12 Hours) Vital Signs Temp Pulse Pulse Resp BP Pulse Ox 01/29/20 07:30 71 01/29/20 06:47 36.8 C 79 20 93/61 L 98 01/29/20 03:25 36.9 C 78 18 124/70 96 01/28/20 23:02 37 C 87 18 120/70 96 (1) Fall Encounter type: initial encounter Qualified Code(s): W19.XXXA - Unspecified fall, initial encounter (2) Hematoma of left lower extremity Encounter type: initial encounter Qualified Code(s): S80.12XA - Contusion of left lower leg, initial encounter (3) Atrial fibrillation Atrial fibrillation type: unspecified Qualified Code(s): I48.91 - Unspecified atrial fibrillation
[2020-01-29] MEDS: PREGABALIN 50 MG CAP PO SCH ×3 (08:37→17:31)
[2020-01-29] MEDS: FLUTICASONE/VILANTEROL 200/25MCG 14 PUFFS/INHALER INH SCH (08:37)
[2020-01-29] MEDS: CIPROFLOXACIN 500 MG TAB PO SCH ×2 (08:38→20:23)
[2020-01-29] MEDS: SUCRALFATE 1 GM TAB PO SCH ×2 (08:38→20:25)
[2020-01-29] MEDS: UMECLIDINIUM BROMIDE 62.5MCG/BLISTER 7 PUFFS/INHALER INH SCH (08:39)
[2020-01-29] MEDS: FAMOTIDINE 20 MG TAB PO SCH ×2 (08:40→20:21)
[2020-01-29] MEDS: METOPROLOL SUCC 50MG EXT REL TAB PO SCH ×2 (08:40→20:23)
[2020-01-29] MEDS: SENNA 8.6 MG TAB PO SCH ×2 (08:40→20:22)
[2020-01-29] MEDS: CHOLECALCIFEROL 1,000 UNITS 25 MCG TAB PO SCH (08:40)
[2020-01-29] MEDS: FUROSEMIDE 80 MG TAB PO SCH (08:40)
[2020-01-29] MEDS: allopurinoL 100 MG TAB PO SCH (08:40)
[2020-01-29] MEDS: DULOXETINE HCL 60 MG CAP PO SCH (08:41)
[2020-01-29] MEDS: MICONAZOLE NITRATE POWDER 43 GM TOP SCH ×3 (08:41→20:25)
[2020-01-29] MEDS: INSULIN ASPART 100 UNITS/ML 3 ML PEN SC SCH ×4 (08:45→20:26)
[2020-01-29] MEDS: HEPARIN SOD 5,000 UNIT/0.5 ML VIAL SQ SCH ×2 (08:45→20:25)
[2020-01-29] MEDS: DOCUSATE SODIUM 100 MG CAP PO SCH ×2 (10:40→20:32)
[2020-01-29] MEDS: DAPTOmycin 325 MG in SYRINGE 0 ML IV SCH (12:27)
--- NOTE | 2020-01-29 14:18 | Surgery Progress Note ---
Date of Service January 29, 2020 Assessment & Plan (1) Hematoma of left lower extremity: Tissue was begun to demarcate and separate. Verbal consent was obtained from patient for bedside debridement today. Using a scissor and forceps, nonviable skin and subcutaneous tissue was cut away revealing residual hematoma and soft tissue infiltration as well as significant tissue undermining. All nonviable tissue was removed, leaving some tissue at the wound margins with questionable viability which can be further debrided in several days if it demarcates. This represented excisional debridement of 15 x 17 cm. discussed with the patient she will most likely require split-thickness skin grafting to be performed, not at this admission. Today we discussed placement of an irrigating wound VAC to help clean up the wound bed, irrigate out the old hematoma and promote granulation tissue formation. We will confirm whether an irrigating VAC can be used at [facility]. If so, she may be discharged when deemed able by the hospitalist service with follow-up with the wound care center. If not, irrigating VAC will be changed on Sunday and wound can be reassessed at that time. Subjective Patient seen and examined bedside with Margareth HENRY. Patient reports improvement in her pain. Review of Systems Integumentary: as per Subjective / HPI Physical Exam Constitutional: WD/WN, vitals as above Skin: no rashes, warm and dry + wound Left lower leg with resolving hematoma. Clear dermarcation, developing firm eschar posterior and medial calf. Some bogginess noted medially. Anteriomedial aspect appears viable. erythema improving Psychiatric: A+Ox3, euthymic affect Results & Data Vital Signs (Past 12 Hours) Vital Signs Temp Pulse Pulse Resp BP Pulse Ox 01/29/20 07:30 71 01/29/20 06:47 98.2 F 79 20 93/61 L 98 01/29/20 03:25 98.4 F 78 18 124/70 96 PG Care Time/CCT Total # of Minutes Spent Total Time Spent with Patient: Total time spent is greater than 50% in coordination of care (as documented) at patient's floor/unit and/or counseling patient: Coding Level of Care Code 74305 Subseq Hosp Care Lvl 2 (25 - SIGNIFICANT, SEPARATELY IDENTIFIABLE ) Diagnoses Hematoma of left lower extremity S80.12XA Encounter type: initial encounter CPT Codes Debride Skin/Tissue - 77004 ([id number]) (1) Hematoma of left lower extremity Encounter type: initial encounter Qualified Code(s): S80.12XA - Contusion of left lower leg, initial encounter
[2020-01-29] MEDS: MONTELUKAST SODIUM 10 MG TABLET PO SCH (20:22)
[2020-01-29] MEDS: MELATONIN 3 MG TAB PO SCH (20:23)
[2020-01-29] MEDS: TRAZODONE HCL 50 MG TAB PO SCH (20:32)
[2020-01-30] MEDS: CHECK FENTANYL PATCH PLACEMENT SCH ×3 (00:47→16:44)
[2020-01-30] MEDS: LEVOTHYROXINE SODIUM 75 MCG TABLET PO SCH (05:47)
[2020-01-30] MEDS: ACETAMINOPHEN 325 MG TAB PO PRN ×2 (05:49→11:45)
[2020-01-30 06:01] LABS: Hematocrit (blood only) 27.3 % (37-47); Hemoglobin 9.1 g/dL (12.0-16.0); Mean Corpuscular Hemoglobin 33.6 pg (25-34); Mean Corpuscular Hgb Conc 33.3 g/dL (32-36); Mean Corpuscular Volume 100.7 fL (80-100); Nucleated RBC # (auto) 0.04 K/uL (0-0); Nucleated RBC % (auto) 0.6 %; Platelet Count 279 K/uL (130-400); RDW Coefficient of Variation 16.3 % (11.5-14.5); RDW Standard Deviation 58.7 fL (36.4-46.3); Red Blood Count 2.71 M/uL (4.2-5.4)
[2020-01-30 06:35] LABS: BUN Creatinine Ratio 33.2 (10-20); Calcium 8.8 mg/dl (8.5-10.1); Creatinine Clr Calc Pharmacy 43.8 ml/min; Est GFR (African American) 41.6; Est GFR (Non-African American) 35.9; Potassium 3.9 mmol/L (3.5-5.1)
--- NOTE | 2020-01-30 06:50 | Hospitalist Progress Note ---
Date of Service January 30, 2020 Assessment & Plan (1) Fall: (2) Elevated INR: (3) Hematoma of left lower extremity: Patient is a 79 yr female with H/O Chronic respiratory failure with hypoxia, COPD, diastolic CHF, chronic atrial fibrillation on warfarin, DM II, CKD III, HTN, chronic pain, H/O PE/DVT, H/O MRSA who presents left lower extremity pain and swelling secondary to fall. Left Lower Extremity Hematoma Secondary to fall in setting of supratherapeutic INR due to Coumadin Intraprocedural hemorrhage of skin and subcutaneous tissue, not a complication of care --Left LE CTA:Large mixed attenuating hematoma of the posterior subcutaneous left lower leg measures up to 33.8 cm in greatest dimension and demonstrates several areas of active extravasation. No intramuscular hematoma. Demineralized appearance the bones with multifocal osteoarthritis. No acute fracture or dislocation identified. Moderate joint effusion of the knee. --CT Head:No acute intracranial abnormality. --CT ABD/Pelvis:No acute intra-abdominal or intrapelvic abnormality. No acute fracture. --CT Neck:No fractures within the cervical spine. Degenerative change --INR:4.6 on presentation --Patient received Vitamin k and K centra which revered her INR to 0.9 --S/P 2 units PRBCs --Monitor H&H and transfuse PRBCs as needed --Appreciate Orthopedics/Plastic Surgery Input --Continue wound Care, dressing --PT/OT: LLE WBAT --Will need Wound VAC placed eventually once further skin demarcation --Needs follow up with wound clinic upon discharge --Had evacuation of hematoma on 01/26/20 --Hb stable --Continue wound care (4) Acute blood loss anemia: Secondary to large subcutaneous left lower extremity hematoma in setting of Supratherapeutic INR S/P 2 units PRBCs Continue to monitor H&H (5) Leukocytosis: Urinary Tract Infection: POA Other sources: Possible Leg wound infection/Joyce Umbilical skin Infection CXR:Chronic change. No acute process. H/O MRSA Off Daptomycin Continue Ciprofloxacin Urine Cx:E.Coli, Morganella Blood Cx: No growth to date (6) Acute kidney injury superimposed on CKD: ROSEY on CKD III CT ABD: No renal or ureteral calculi or obstructive uropathy. Likely due to hypoperfusion due to acute blood loss/IV contrast could have contributed as well Cr:2.0>>1.6>> 1.3 Received gentle IV fluids given H/O diastolic CHF Avoid nephrotoxic agents as able Monitor renal function Hyperkalemia: Hypermagnesemia: Likely due to ROSEY Hold potassium/Mag supplements Monitor electrolytes Lasix resumed (7) Diastolic CHF: H/O HFpEF No signs of exacerbation Monitor volume status Lasix, Aldactone held initially due to ROSEY Monitor daily weights, I/Os Resumed lasix Aldactone, Metolazone held for now (8) DM type 2 (diabetes mellitus, type 2): Hb A1c 6.8 11/2019 Currently not on oral hypoglycemics Monitor blood sugar AC/HS Novolog sliding scale per protocol (9) Hypertension: Hypotensive due to acute blood loss on presentation BP Variable Continue metoprolol with holding parameters Monitor BP (10) Hypothyroidism: Continue levothyroxine (11) Chronic pain: 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 On fentanyl patch at baseline 25 mcg every 72 hour Hold Narcotics if excess sedation Insomnia: Continue Trazodone, Melatonin (12) Atrial fibrillation: Chronic atrial fibrillation Rate controlled Continue metoprolol Coumadin held Started on Heparin SQ for DVT Px today Will need to be restarted on Coumadin for Afib H/O PE as per records Anticoagulation on hold due to acute blood loss Patient reports Pulm hemorrhage many years ago She denies any known H/O PE/DVT (13) Chronic respiratory failure: Secondary to COPD/asthma Chronic oxygen dependency: on 2 L at bedtime No signs of exacerbation Continue home inhalers (14) COPD (chronic obstructive pulmonary disease): As above (15) DVT prophylaxis: Heparin SQ Code Status DNI/DNR Disposition: Bed Hold at [facility], Irrigating Wound vac was placed after bedside debridement on 01/28, It will be changed Sunday, Outpatient Wound Clinic on , resume Warfarin Labs checked ROS-No Headache, No Visual Changes, No Nausea, No Vomiting, No Fever, No Chills, No Neck Pain or Stiffness, No Chest Pain, No Palpitations, No SOB, No BARBOUR, No Cough, No Sputum, No Wheezing, No Abdominal Pain, No Diarrhea, No Hematemesis, No Hemoptysis, No Unexpected Weight Loss, No Flank pain, No Melena, No Hematochezia, No Frequency, No Urgency, No Burning, No Hematuria, No Rashes, No Diaphoresis. Appetite is Normal, weak Physical Exam Gen-AAO x 3, NAD, Afebrile, obese Head-NCAT, EOMI, PERRLA, Anicteric Sclera, No Posterior Pharyngeal Erythema Neck-Supple, No JVD, No Thyromegaly, No Masses, No LAD, No Bruits Lungs-Clear to Auscultation Bilaterally, No Rales, No Rhonchi, No Wheezing, No Crepitus Chest-No S4, +S1, +S2, No S3, No Murmurs, No Rubs, No Gallops, No Ectopy Abdomen-Soft, Bowel Sounds Present, Non Tender, Non Distended, No Hepatomegaly, No Splenomegaly, No Palpable Masses, No Rebound, No Rigidity, No Guarding Musculoskeletal-Full Range of Motion Bilaterally, No CVAT Extremities-LLE Gauze wrapped Nuero-Cranial Nerves II-XII grossly intact, Motor WNL, DTRs WNL, Strength WNL, Non Focal Psych-Normal Mood Admission and Anticipated Discharge Date Admission Date: January 22, 2020 Anticipated date of discharge: 02/03/20 Results & Data Results & Data ([facility]) Vital Signs (Past 12 Hours) Vital Signs Temp Pulse Pulse Resp BP BP Pulse Ox 01/30/20 03:44 36.9 C 75 16 133/59 L 94 01/30/20 00:51 98 H 01/29/20 23:32 36.6 C 70 18 138/74 94 01/29/20 19:52 36.4 C L 84 18 110/72 93 (1) Fall Encounter type: initial encounter Qualified Code(s): W19.XXXA - Unspecified fall, initial encounter (2) Hematoma of left lower extremity Encounter type: initial encounter Qualified Code(s): S80.12XA - Contusion of left lower leg, initial encounter (3) Atrial fibrillation Atrial fibrillation type: unspecified Qualified Code(s): I48.91 - Unspecified atrial fibrillation
[2020-01-30] MEDS: FLUTICASONE/VILANTEROL 200/25MCG 14 PUFFS/INHALER INH SCH (07:38)
[2020-01-30] MEDS: CIPROFLOXACIN 500 MG TAB PO SCH ×2 (07:38→21:28)
[2020-01-30] MEDS: PREGABALIN 50 MG CAP PO SCH ×3 (07:38→16:43)
[2020-01-30] MEDS: SUCRALFATE 1 GM TAB PO SCH ×2 (07:38→21:25)
[2020-01-30] MEDS: DOCUSATE SODIUM 100 MG CAP PO SCH ×2 (07:39→21:26)
[2020-01-30] MEDS: MICONAZOLE NITRATE POWDER 43 GM TOP SCH ×3 (07:39→21:31)
[2020-01-30] MEDS: UMECLIDINIUM BROMIDE 62.5MCG/BLISTER 7 PUFFS/INHALER INH SCH (07:39)
[2020-01-30] MEDS: DULOXETINE HCL 60 MG CAP PO SCH (07:39)
[2020-01-30] MEDS: DIGOXIN 0.125 MG TAB PO SCH (07:41)
[2020-01-30] MEDS: FAMOTIDINE 20 MG TAB PO SCH ×2 (07:41→21:30)
[2020-01-30] MEDS: SENNA 8.6 MG TAB PO SCH ×2 (07:41→21:25)
[2020-01-30] MEDS: FUROSEMIDE 80 MG TAB PO SCH (07:41)
[2020-01-30] MEDS: METOPROLOL SUCC 50MG EXT REL TAB PO SCH ×2 (07:41→21:30)
[2020-01-30] MEDS: allopurinoL 100 MG TAB PO SCH (07:42)
[2020-01-30] MEDS: CHOLECALCIFEROL 1,000 UNITS 25 MCG TAB PO SCH (07:42)
[2020-01-30 07:43] LABS: Prothrombin Time 10.5 Seconds (9.0-12.0)
[2020-01-30] MEDS: HEPARIN SOD 5,000 UNIT/0.5 ML VIAL SQ SCH ×2 (07:43→21:33)
[2020-01-30] MEDS: INSULIN ASPART 100 UNITS/ML 3 ML PEN SC SCH ×4 (07:53→21:35)
[2020-01-30] MEDS: PROPRANOLOL HCL 10 MG TAB PO SCH ×3 (08:01→21:28)
[2020-01-30] MEDS: POLYETHYLENE (MIRALAX) 17 GM PACK PO SCH ×2 (08:01→21:29)
[2020-01-30] MEDS: fentaNYL 25 MCG/HR TDSY TD SCH (11:46)
[2020-01-30] MEDS: WARFARIN SOD 2 MG TAB PO SCH (16:44)
[2020-01-30] MEDS: TRAZODONE HCL 50 MG TAB PO SCH (21:27)
[2020-01-30] MEDS: MONTELUKAST SODIUM 10 MG TABLET PO SCH (21:27)
[2020-01-30] MEDS: MELATONIN 3 MG TAB PO SCH (21:29)
[2020-01-31] MEDS: CHECK FENTANYL PATCH PLACEMENT SCH ×4 (00:24→23:45)
[2020-01-31] MEDS: LEVOTHYROXINE SODIUM 75 MCG TABLET PO SCH (06:09)
--- NOTE | 2020-01-31 07:42 | Hospitalist Progress Note ---
Date of Service January 31, 2020 Assessment & Plan (1) Fall: (2) Elevated INR: (3) Hematoma of left lower extremity: Patient is a 79 yr female with H/O Chronic respiratory failure with hypoxia, COPD, diastolic CHF, chronic atrial fibrillation on warfarin, DM II, CKD III, HTN, chronic pain, H/O PE/DVT, H/O MRSA who presents left lower extremity pain and swelling secondary to fall. Left Lower Extremity Hematoma Secondary to fall in setting of supratherapeutic INR due to Coumadin Intraprocedural hemorrhage of skin and subcutaneous tissue, not a complication of care --Left LE CTA:Large mixed attenuating hematoma of the posterior subcutaneous left lower leg measures up to 33.8 cm in greatest dimension and demonstrates several areas of active extravasation. No intramuscular hematoma. Demineralized appearance the bones with multifocal osteoarthritis. No acute fracture or dislocation identified. Moderate joint effusion of the knee. --CT Head:No acute intracranial abnormality. --CT ABD/Pelvis:No acute intra-abdominal or intrapelvic abnormality. No acute fracture. --CT Neck:No fractures within the cervical spine. Degenerative change --INR:4.6 on presentation --Patient received Vitamin k and K centra which revered her INR to 0.9 --S/P 2 units PRBCs --Monitor H&H and transfuse PRBCs as needed --Appreciate Orthopedics/Plastic Surgery Input --Continue wound Care, dressing --PT/OT: LLE WBAT --Will need Wound VAC placed eventually once further skin demarcation --Needs follow up with wound clinic upon discharge --Had evacuation of hematoma on 01/26/20 --Hb stable --Continue wound care (4) Acute blood loss anemia: Secondary to large subcutaneous left lower extremity hematoma in setting of Supratherapeutic INR S/P 2 units PRBCs Continue to monitor H&H (5) Leukocytosis: Urinary Tract Infection: POA Other sources: Possible Leg wound infection/Joyce Umbilical skin Infection CXR:Chronic change. No acute process. H/O MRSA Off Daptomycin Continue Ciprofloxacin Urine Cx:E.Coli, Morganella Blood Cx: No growth to date (6) Acute kidney injury superimposed on CKD: ROSEY on CKD III CT ABD: No renal or ureteral calculi or obstructive uropathy. Likely due to hypoperfusion due to acute blood loss/IV contrast could have contributed as well Cr:2.0>>1.6>> 1.3 Received gentle IV fluids given H/O diastolic CHF Avoid nephrotoxic agents as able Monitor renal function Hyperkalemia: Hypermagnesemia: Likely due to ROSEY Hold potassium/Mag supplements Monitor electrolytes Lasix resumed (7) Diastolic CHF: H/O HFpEF No signs of exacerbation Monitor volume status Lasix, Aldactone held initially due to ROSEY Monitor daily weights, I/Os Resumed lasix Aldactone, Metolazone held for now (8) DM type 2 (diabetes mellitus, type 2): Hb A1c 6.8 11/2019 Currently not on oral hypoglycemics Monitor blood sugar AC/HS Novolog sliding scale per protocol (9) Hypertension: Hypotensive due to acute blood loss on presentation BP Variable Continue metoprolol with holding parameters Monitor BP (10) Hypothyroidism: Continue levothyroxine (11) Chronic pain: 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 On fentanyl patch at baseline 25 mcg every 72 hour Hold Narcotics if excess sedation Insomnia: Continue Trazodone, Melatonin (12) Atrial fibrillation: Chronic atrial fibrillation Rate controlled Continue metoprolol Coumadin held Started on Heparin SQ for DVT Px today Will need to be restarted on Coumadin for Afib H/O PE as per records Anticoagulation on hold due to acute blood loss Patient reports Pulm hemorrhage many years ago She denies any known H/O PE/DVT (13) Chronic respiratory failure: Secondary to COPD/asthma Chronic oxygen dependency: on 2 L at bedtime No signs of exacerbation Continue home inhalers (14) COPD (chronic obstructive pulmonary disease): As above (15) DVT prophylaxis: Heparin SQ Code Status DNI/DNR Disposition: Bed Hold at [facility], Irrigating Wound vac was placed after bedside debridement on 01/28, It will be changed Sunday, Outpatient Wound Clinic on , resume Warfarin Labs checked ROS-No Headache, No Visual Changes, No Nausea, No Vomiting, No Fever, No Chills, No Neck Pain or Stiffness, No Chest Pain, No Palpitations, No SOB, No BARBOUR, No Cough, No Sputum, No Wheezing, No Abdominal Pain, No Diarrhea, No Hematemesis, No Hemoptysis, No Unexpected Weight Loss, No Flank pain, No Melena, No Hematochezia, No Frequency, No Urgency, No Burning, No Hematuria, No Rashes, No Diaphoresis. Appetite is Normal, weak Physical Exam Gen-AAO x 3, NAD, Afebrile, obese Head-NCAT, EOMI, PERRLA, Anicteric Sclera, No Posterior Pharyngeal Erythema Neck-Supple, No JVD, No Thyromegaly, No Masses, No LAD, No Bruits Lungs-Clear to Auscultation Bilaterally, No Rales, No Rhonchi, No Wheezing, No Crepitus Chest-No S4, +S1, +S2, No S3, No Murmurs, No Rubs, No Gallops, No Ectopy Abdomen-Soft, Bowel Sounds Present, Non Tender, Non Distended, No Hepatomegaly, No Splenomegaly, No Palpable Masses, No Rebound, No Rigidity, No Guarding Musculoskeletal-Full Range of Motion Bilaterally, No CVAT Extremities-LLE Gauze wrapped Nuero-Cranial Nerves II-XII grossly intact, Motor WNL, DTRs WNL, Strength WNL, Non Focal Psych-Normal Mood Admission and Anticipated Discharge Date Admission Date: January 22, 2020 Anticipated date of discharge: 02/03/20 Results & Data Results & Data ([facility]) Vital Signs (Past 12 Hours) Vital Signs Temp Pulse Pulse Resp BP BP Pulse Ox 01/31/20 07:15 37.0 C 81 18 104/71 93 01/31/20 03:41 37 C 80 18 102/58 L 93 01/30/20 23:57 84 01/30/20 23:18 36.9 C 79 16 104/80 96 (1) Fall Encounter type: initial encounter Qualified Code(s): W19.XXXA - Unspecified fall, initial encounter (2) Hematoma of left lower extremity Encounter type: initial encounter Qualified Code(s): S80.12XA - Contusion of left lower leg, initial encounter (3) Atrial fibrillation Atrial fibrillation type: unspecified Qualified Code(s): I48.91 - Unspecified atrial fibrillation
[2020-01-31] MEDS: PREGABALIN 50 MG CAP PO SCH ×3 (08:19→17:02)
[2020-01-31] MEDS: POLYETHYLENE (MIRALAX) 17 GM PACK PO SCH ×2 (08:20→21:22)
[2020-01-31] MEDS: METOPROLOL SUCC 50MG EXT REL TAB PO SCH ×2 (08:20→21:26)
[2020-01-31] MEDS: FUROSEMIDE 80 MG TAB PO SCH (08:20)
[2020-01-31] MEDS: DULOXETINE HCL 60 MG CAP PO SCH (08:21)
[2020-01-31] MEDS: CIPROFLOXACIN 500 MG TAB PO SCH ×2 (08:21→21:24)
[2020-01-31] MEDS: PROPRANOLOL HCL 10 MG TAB PO SCH ×3 (08:21→21:25)
[2020-01-31] MEDS: CHOLECALCIFEROL 1,000 UNITS 25 MCG TAB PO SCH (08:21)
[2020-01-31] MEDS: allopurinoL 100 MG TAB PO SCH (08:22)
[2020-01-31] MEDS: DOCUSATE SODIUM 100 MG CAP PO SCH ×2 (08:22→21:24)
[2020-01-31] MEDS: SUCRALFATE 1 GM TAB PO SCH ×2 (08:22→21:22)
[2020-01-31] MEDS: MICONAZOLE NITRATE POWDER 43 GM TOP SCH ×3 (08:23→21:25)
[2020-01-31] MEDS: SENNA 8.6 MG TAB PO SCH ×2 (08:23→21:26)
[2020-01-31] MEDS: UMECLIDINIUM BROMIDE 62.5MCG/BLISTER 7 PUFFS/INHALER INH SCH (08:23)
[2020-01-31] MEDS: FAMOTIDINE 20 MG TAB PO SCH ×2 (08:23→21:23)
[2020-01-31] MEDS: FLUTICASONE/VILANTEROL 200/25MCG 14 PUFFS/INHALER INH SCH (08:24)
[2020-01-31] MEDS: HEPARIN SOD 5,000 UNIT/0.5 ML VIAL SQ SCH ×2 (08:28→21:28)
[2020-01-31] MEDS: INSULIN ASPART 100 UNITS/ML 3 ML PEN SC SCH ×4 (08:29→21:29)
[2020-01-31 08:44] LABS: Hematocrit (blood only) 27.3 % (37-47); Hemoglobin 8.9 g/dL (12.0-16.0); Mean Corpuscular Hemoglobin 32.8 pg (25-34); Mean Corpuscular Hgb Conc 32.6 g/dL (32-36); Mean Corpuscular Volume 100.7 fL (80-100); Mean Platelet Volume 9.9 fL (7.4-10.4); Nucleated RBC # (auto) 0.05 K/uL (0-0); Nucleated RBC % (auto) 0.5 %; Platelet Count 315 K/uL (130-400); RDW Coefficient of Variation 16.6 % (11.5-14.5); RDW Standard Deviation 59.3 fL (36.4-46.3); Red Blood Count 2.71 M/uL (4.2-5.4); White Blood Count 9.27 K/uL (4.8-10.8)
[2020-01-31 08:53] LABS: Prothrombin Time 10.6 Seconds (9.0-12.0)
[2020-01-31 09:16] LABS: BUN Creatinine Ratio 35.3 (10-20); Creatinine Clr Calc Pharmacy 45.5 ml/min; Est GFR (African American) 43.5; Est GFR (Non-African American) 37.5; Potassium 3.8 mmol/L (3.5-5.1)
[2020-01-31] MEDS: ACETAMINOPHEN 325 MG TAB PO PRN (10:13)
[2020-01-31] MEDS: WARFARIN SOD 2 MG TAB PO SCH (17:26)
[2020-01-31] MEDS: MONTELUKAST SODIUM 10 MG TABLET PO SCH (21:21)
[2020-01-31] MEDS: MELATONIN 3 MG TAB PO SCH (21:22)
[2020-01-31] MEDS: TRAZODONE HCL 50 MG TAB PO SCH (21:22)
[2020-02-01] MEDS: LEVOTHYROXINE SODIUM 75 MCG TABLET PO SCH (05:47)
[2020-02-01 06:45] LABS: Hematocrit (blood only) 26.2 % (37-47); Hemoglobin 8.5 g/dL (12.0-16.0); Mean Corpuscular Hemoglobin 33.1 pg (25-34); Mean Corpuscular Hgb Conc 32.4 g/dL (32-36); Mean Corpuscular Volume 101.9 fL (80-100); Nucleated RBC # (auto) 0.03 K/uL (0-0); Nucleated RBC % (auto) 0.3 %; Platelet Count 307 K/uL (130-400); RDW Coefficient of Variation 16.7 % (11.5-14.5); RDW Standard Deviation 60.3 fL (36.4-46.3); Red Blood Count 2.57 M/uL (4.2-5.4); White Blood Count 8.58 K/uL (4.8-10.8)
[2020-02-01 06:56] LABS: Prothrombin Time 10.8 Seconds (9.0-12.0)
--- NOTE | 2020-02-01 07:09 | Hospitalist Progress Note ---
Date of Service February 01, 2020 Assessment & Plan (1) Fall: (2) Elevated INR: (3) Hematoma of left lower extremity: Patient is a 79 yr female with H/O Chronic respiratory failure with hypoxia, COPD, diastolic CHF, chronic atrial fibrillation on warfarin, DM II, CKD III, HTN, chronic pain, H/O PE/DVT, H/O MRSA who presents left lower extremity pain and swelling secondary to fall. Left Lower Extremity Hematoma Secondary to fall in setting of supratherapeutic INR due to Coumadin Intraprocedural hemorrhage of skin and subcutaneous tissue, not a complication of care --Left LE CTA:Large mixed attenuating hematoma of the posterior subcutaneous left lower leg measures up to 33.8 cm in greatest dimension and demonstrates several areas of active extravasation. No intramuscular hematoma. Demineralized appearance the bones with multifocal osteoarthritis. No acute fracture or dislocation identified. Moderate joint effusion of the knee. --CT Head:No acute intracranial abnormality. --CT ABD/Pelvis:No acute intra-abdominal or intrapelvic abnormality. No acute fracture. --CT Neck:No fractures within the cervical spine. Degenerative change --INR:4.6 on presentation --Patient received Vitamin k and K centra which revered her INR to 0.9 --S/P 2 units PRBCs --Monitor H&H and transfuse PRBCs as needed --Appreciate Orthopedics/Plastic Surgery Input --Continue wound Care, dressing --PT/OT: LLE WBAT --Will need Wound VAC placed eventually once further skin demarcation --Needs follow up with wound clinic upon discharge --Had evacuation of hematoma on 01/26/20 --Hb stable --Continue wound care (4) Acute blood loss anemia: Secondary to large subcutaneous left lower extremity hematoma in setting of Supratherapeutic INR S/P 2 units PRBCs Continue to monitor H&H (5) Leukocytosis: Urinary Tract Infection: POA Other sources: Possible Leg wound infection/Joyce Umbilical skin Infection CXR:Chronic change. No acute process. H/O MRSA Off Daptomycin Continue Ciprofloxacin Urine Cx:E.Coli, Morganella Blood Cx: No growth to date (6) Acute kidney injury superimposed on CKD: ROSEY on CKD III CT ABD: No renal or ureteral calculi or obstructive uropathy. Likely due to hypoperfusion due to acute blood loss/IV contrast could have contributed as well Cr:2.0>>1.6>> 1.3 Received gentle IV fluids given H/O diastolic CHF Avoid nephrotoxic agents as able Monitor renal function Hyperkalemia: Hypermagnesemia: Likely due to ROSEY Hold potassium/Mag supplements Monitor electrolytes Lasix resumed (7) Diastolic CHF: H/O HFpEF No signs of exacerbation Monitor volume status Lasix, Aldactone held initially due to ROSEY Monitor daily weights, I/Os Resumed lasix Aldactone, Metolazone held for now (8) DM type 2 (diabetes mellitus, type 2): Hb A1c 6.8 11/2019 Currently not on oral hypoglycemics Monitor blood sugar AC/HS Novolog sliding scale per protocol (9) Hypertension: Hypotensive due to acute blood loss on presentation BP Variable Continue metoprolol with holding parameters Monitor BP (10) Hypothyroidism: Continue levothyroxine (11) Chronic pain: 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 On fentanyl patch at baseline 25 mcg every 72 hour Hold Narcotics if excess sedation Insomnia: Continue Trazodone, Melatonin (12) Atrial fibrillation: Chronic atrial fibrillation Rate controlled Continue metoprolol Coumadin held Started on Heparin SQ for DVT Px today Will need to be restarted on Coumadin for Afib H/O PE as per records Anticoagulation on hold due to acute blood loss Patient reports Pulm hemorrhage many years ago She denies any known H/O PE/DVT (13) Chronic respiratory failure: Secondary to COPD/asthma Chronic oxygen dependency: on 2 L at bedtime No signs of exacerbation Continue home inhalers (14) COPD (chronic obstructive pulmonary disease): As above (15) DVT prophylaxis: Heparin SQ Code Status DNI/DNR Disposition: Bed Hold at [facility], Irrigating Wound vac was placed after bedside debridement on 01/28, It will be changed 02/01, Outpatient Wound Clinic on DC, resume Warfarin Labs checked ROS-No Headache, No Visual Changes, No Nausea, No Vomiting, No Fever, No Chills, No Neck Pain or Stiffness, No Chest Pain, No Palpitations, No SOB, No BARBOUR, No Cough, No Sputum, No Wheezing, No Abdominal Pain, No Diarrhea, No Hematemesis, No Hemoptysis, No Unexpected Weight Loss, No Flank pain, No Melena, No Hematochezia, No Frequency, No Urgency, No Burning, No Hematuria, No Rashes, No Diaphoresis. Appetite is Normal, weak Physical Exam Gen-AAO x 3, NAD, Afebrile, obese Head-NCAT, EOMI, PERRLA, Anicteric Sclera, No Posterior Pharyngeal Erythema Neck-Supple, No JVD, No Thyromegaly, No Masses, No LAD, No Bruits Lungs-Clear to Auscultation Bilaterally, No Rales, No Rhonchi, No Wheezing, No Crepitus Chest-No S4, +S1, +S2, No S3, No Murmurs, No Rubs, No Gallops, No Ectopy Abdomen-Soft, Bowel Sounds Present, Non Tender, Non Distended, No Hepatomegaly, No Splenomegaly, No Palpable Masses, No Rebound, No Rigidity, No Guarding Musculoskeletal-Full Range of Motion Bilaterally, No CVAT Extremities-LLE Gauze wrapped Nuero-Cranial Nerves II-XII grossly intact, Motor WNL, DTRs WNL, Strength WNL, Non Focal Psych-Normal Mood Admission and Anticipated Discharge Date Admission Date: January 22, 2020 Anticipated date of discharge: 02/03/20 Results & Data Results & Data ([facility]) Vital Signs (Past 12 Hours) Vital Signs Temp Pulse Pulse Resp BP BP Pulse Ox 02/01/20 04:13 36.6 C 60 20 99/62 L 93 01/31/20 23:02 36.5 C 80 20 95/60 L 94 01/31/20 23:00 76 01/31/20 20:00 80 95/60 L 01/31/20 19:14 36.4 C L 72 16 86/54 L 94 (1) Fall Encounter type: initial encounter Qualified Code(s): W19.XXXA - Unspecified fall, initial encounter (2) Hematoma of left lower extremity Encounter type: initial encounter Qualified Code(s): S80.12XA - Contusion of left lower leg, initial encounter (3) Atrial fibrillation Atrial fibrillation type: unspecified Qualified Code(s): I48.91 - Unspecified atrial fibrillation
[2020-02-01 07:14] LABS: BUN Creatinine Ratio 42.1 (10-20); Calcium 8.7 mg/dl (8.5-10.1); Creatinine Clr Calc Pharmacy 52.4 ml/min; Est GFR (African American) 51.7; Est GFR (Non-African American) 44.6; Potassium 4.2 mmol/L (3.5-5.1)
[2020-02-01] MEDS: UMECLIDINIUM BROMIDE 62.5MCG/BLISTER 7 PUFFS/INHALER INH SCH (07:58)
[2020-02-01] MEDS: FLUTICASONE/VILANTEROL 200/25MCG 14 PUFFS/INHALER INH SCH (07:58)
[2020-02-01] MEDS: CHOLECALCIFEROL 1,000 UNITS 25 MCG TAB PO SCH (07:59)
[2020-02-01] MEDS: DULOXETINE HCL 60 MG CAP PO SCH (07:59)
[2020-02-01] MEDS: SUCRALFATE 1 GM TAB PO SCH ×2 (07:59→20:22)
[2020-02-01] MEDS: POLYETHYLENE (MIRALAX) 17 GM PACK PO SCH ×2 (07:59→20:17)
[2020-02-01] MEDS: SENNA 8.6 MG TAB PO SCH ×2 (07:59→20:20)
[2020-02-01] MEDS: FUROSEMIDE 80 MG TAB PO SCH (07:59)
[2020-02-01] MEDS: FAMOTIDINE 20 MG TAB PO SCH ×2 (07:59→20:22)
[2020-02-01] MEDS: allopurinoL 100 MG TAB PO SCH (07:59)
[2020-02-01] MEDS: DOCUSATE SODIUM 100 MG CAP PO SCH ×2 (07:59→20:21)
[2020-02-01] MEDS: PROPRANOLOL HCL 10 MG TAB PO SCH ×3 (08:00→20:23)
[2020-02-01] MEDS: METOPROLOL SUCC 50MG EXT REL TAB PO SCH ×2 (08:00→20:24)
[2020-02-01] MEDS: MICONAZOLE NITRATE POWDER 43 GM TOP SCH ×3 (08:01→20:23)
[2020-02-01] MEDS: INSULIN ASPART 100 UNITS/ML 3 ML PEN SC SCH ×4 (08:01→20:28)
[2020-02-01] MEDS: CHECK FENTANYL PATCH PLACEMENT SCH ×2 (08:01→16:24)
[2020-02-01] MEDS: HEPARIN SOD 5,000 UNIT/0.5 ML VIAL SQ SCH ×2 (08:01→20:26)
[2020-02-01] MEDS: PREGABALIN 50 MG CAP PO SCH ×3 (08:09→16:22)
[2020-02-01] MEDS: ACETAMINOPHEN 325 MG TAB PO PRN (16:22)
[2020-02-01] MEDS: WARFARIN SOD 2 MG TAB PO SCH (16:24)
[2020-02-01] MEDS ORDERED: KETOROLAC TROMETHAMINE 15 MG/ML VIAL IV PRN (17:25)
[2020-02-01] MEDS: MONTELUKAST SODIUM 10 MG TABLET PO SCH (20:18)
[2020-02-01] MEDS: TRAZODONE HCL 50 MG TAB PO SCH (20:20)
[2020-02-01] MEDS: MELATONIN 3 MG TAB PO SCH (20:21)
[2020-02-02] MEDS: CHECK FENTANYL PATCH PLACEMENT SCH ×4 (00:43→23:04)
[2020-02-02] MEDS: LEVOTHYROXINE SODIUM 75 MCG TABLET PO SCH (06:14)
[2020-02-02] MEDS: UMECLIDINIUM BROMIDE 62.5MCG/BLISTER 7 PUFFS/INHALER INH SCH (07:31)
[2020-02-02] MEDS: FLUTICASONE/VILANTEROL 200/25MCG 14 PUFFS/INHALER INH SCH (07:31)
[2020-02-02] MEDS: MICONAZOLE NITRATE POWDER 43 GM TOP SCH ×3 (07:31→20:36)
[2020-02-02] MEDS: PROPRANOLOL HCL 10 MG TAB PO SCH ×3 (07:32→20:35)
[2020-02-02] MEDS: allopurinoL 100 MG TAB PO SCH (07:32)
[2020-02-02] MEDS: CHOLECALCIFEROL 1,000 UNITS 25 MCG TAB PO SCH (07:32)
[2020-02-02] MEDS: SENNA 8.6 MG TAB PO SCH ×2 (07:32→20:32)
[2020-02-02] MEDS: PREGABALIN 50 MG CAP PO SCH ×3 (07:32→16:44)
[2020-02-02] MEDS: DIGOXIN 0.125 MG TAB PO SCH (07:32)
[2020-02-02] MEDS: FUROSEMIDE 80 MG TAB PO SCH (07:33)
[2020-02-02] MEDS: DOCUSATE SODIUM 100 MG CAP PO SCH ×2 (07:33→20:37)
[2020-02-02] MEDS: SUCRALFATE 1 GM TAB PO SCH ×2 (07:33→20:37)
[2020-02-02] MEDS: POLYETHYLENE (MIRALAX) 17 GM PACK PO SCH ×2 (07:34→20:31)
[2020-02-02] MEDS: DULOXETINE HCL 60 MG CAP PO SCH (07:34)
[2020-02-02] MEDS: METOPROLOL SUCC 50MG EXT REL TAB PO SCH ×2 (07:34→20:42)
[2020-02-02] MEDS: FAMOTIDINE 20 MG TAB PO SCH ×2 (07:35→20:36)
[2020-02-02] MEDS: HEPARIN SOD 5,000 UNIT/0.5 ML VIAL SQ SCH ×2 (08:27→20:43)
[2020-02-02] MEDS: INSULIN ASPART 100 UNITS/ML 3 ML PEN SC SCH ×4 (08:27→20:44)
--- NOTE | 2020-02-02 09:24 | Hospitalist Progress Note ---
Date of Service February 02, 2020 Assessment & Plan (1) Fall: (2) Elevated INR: (3) Hematoma of left lower extremity: Patient is a 79 yr female with H/O Chronic respiratory failure with hypoxia, COPD, diastolic CHF, chronic atrial fibrillation on warfarin, DM II, CKD III, HTN, chronic pain, H/O PE/DVT, H/O MRSA who presents left lower extremity pain and swelling secondary to fall. Left Lower Extremity Hematoma Secondary to fall in setting of supratherapeutic INR due to Coumadin Intraprocedural hemorrhage of skin and subcutaneous tissue, not a complication of care --Left LE CTA:Large mixed attenuating hematoma of the posterior subcutaneous left lower leg measures up to 33.8 cm in greatest dimension and demonstrates several areas of active extravasation. No intramuscular hematoma. Demineralized appearance the bones with multifocal osteoarthritis. No acute fracture or dislocation identified. Moderate joint effusion of the knee. --CT Head:No acute intracranial abnormality. --CT ABD/Pelvis:No acute intra-abdominal or intrapelvic abnormality. No acute fracture. --CT Neck:No fractures within the cervical spine. Degenerative change --INR:4.6 on presentation --Patient received Vitamin k and K centra which revered her INR to 0.9 --S/P 2 units PRBCs --Monitor H&H and transfuse PRBCs as needed --Appreciate Orthopedics/Plastic Surgery Input --Continue wound Care, dressing --PT/OT: LLE WBAT --Needs follow up with wound clinic upon discharge --Had evacuation of hematoma on 01/26/20 --Hb stable --Continue wound care (4) Acute blood loss anemia: Secondary to large subcutaneous left lower extremity hematoma in setting of Supratherapeutic INR S/P 2 units PRBCs Continue to monitor H&H (5) Leukocytosis: Urinary Tract Infection: POA Other sources: Possible Leg wound infection/Joyce Umbilical skin Infection CXR:Chronic change. No acute process. H/O MRSA Off Daptomycin Continue Ciprofloxacin Urine Cx:E.Coli, Morganella Blood Cx: No growth to date (6) Acute kidney injury superimposed on CKD: ROSEY on CKD III CT ABD: No renal or ureteral calculi or obstructive uropathy. Likely due to hypoperfusion due to acute blood loss/IV contrast could have contributed as well Cr:2.0>>1.6>> 1.3 Received gentle IV fluids given H/O diastolic CHF Avoid nephrotoxic agents as able Monitor renal function Hyperkalemia: Hypermagnesemia: Likely due to ROSEY Hold potassium/Mag supplements Monitor electrolytes Lasix resumed (7) Diastolic CHF: H/O HFpEF No signs of exacerbation Monitor volume status Lasix, Aldactone held initially due to ROSEY Monitor daily weights, I/Os Resumed lasix Aldactone, Metolazone held for now (8) DM type 2 (diabetes mellitus, type 2): Hb A1c 6.8 11/2019 Currently not on oral hypoglycemics Monitor blood sugar AC/HS Novolog sliding scale per protocol (9) Hypertension: Hypotensive due to acute blood loss on presentation BP Variable Continue metoprolol with holding parameters Monitor BP (10) Hypothyroidism: Continue levothyroxine (11) Chronic pain: 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 On fentanyl patch at baseline 25 mcg every 72 hour Hold Narcotics if excess sedation Insomnia: Continue Trazodone, Melatonin (12) Atrial fibrillation: Chronic atrial fibrillation Rate controlled Continue metoprolol Coumadin held Started on Heparin SQ for DVT Px today Will need to be restarted on Coumadin for Afib H/O PE as per records Anticoagulation on hold due to acute blood loss Patient reports Pulm hemorrhage many years ago She denies any known H/O PE/DVT (13) Chronic respiratory failure: Secondary to COPD/asthma Chronic oxygen dependency: on 2 L at bedtime No signs of exacerbation Continue home inhalers (14) COPD (chronic obstructive pulmonary disease): As above (15) DVT prophylaxis: Heparin SQ until INR >= 2 Code Status DNI/DNR Disposition: Bed Hold at [facility], Irrigating Wound vac was placed after bedside debridement on 01/28, It will be changed 02/01, Outpatient Wound Clinic on DC, resume Warfarin Labs checked ROS-No Headache, No Visual Changes, No Nausea, No Vomiting, No Fever, No Chills, No Neck Pain or Stiffness, No Chest Pain, No Palpitations, No SOB, No BARBOUR, No Cough, No Sputum, No Wheezing, No Abdominal Pain, No Diarrhea, No Hematemesis, No Hemoptysis, No Unexpected Weight Loss, No Flank pain, No Melena, No Hematochezia, No Frequency, No Urgency, No Burning, No Hematuria, No Rashes, No Diaphoresis. Appetite is Normal, weak Physical Exam Gen-AAO x 3, NAD, Afebrile, obese Head-NCAT, EOMI, PERRLA, Anicteric Sclera, No Posterior Pharyngeal Erythema Neck-Supple, No JVD, No Thyromegaly, No Masses, No LAD, No Bruits Lungs-Clear to Auscultation Bilaterally, No Rales, No Rhonchi, No Wheezing, No Crepitus Chest-No S4, +S1, +S2, No S3, No Murmurs, No Rubs, No Gallops, No Ectopy Abdomen-Soft, Bowel Sounds Present, Non Tender, Non Distended, No Hepatomegaly, No Splenomegaly, No Palpable Masses, No Rebound, No Rigidity, No Guarding Musculoskeletal-Full Range of Motion Bilaterally, No CVAT Extremities-LLE Gauze wrapped Nuero-Cranial Nerves II-XII grossly intact, Motor WNL, DTRs WNL, Strength WNL, Non Focal Psych-Normal Mood Admission and Anticipated Discharge Date Admission Date: January 22, 2020 Anticipated date of discharge: 02/03/20 Results & Data Results & Data ([facility]) Vital Signs (Past 12 Hours) Vital Signs Temp Pulse Pulse Resp BP BP Pulse Ox 02/02/20 07:32 68 02/02/20 07:25 36.5 C 77 18 103/63 96 02/02/20 04:10 36.8 C 79 18 92/62 L 93 02/01/20 23:05 36.9 C 84 16 94/59 L 95 02/01/20 22:20 80 (1) Fall Encounter type: initial encounter Qualified Code(s): W19.XXXA - Unspecified fall, initial encounter (2) Hematoma of left lower extremity Encounter type: initial encounter Qualified Code(s): S80.12XA - Contusion of left lower leg, initial encounter (3) Atrial fibrillation Atrial fibrillation type: unspecified Qualified Code(s): I48.91 - Unspecified atrial fibrillation
[2020-02-02] MEDS: fentaNYL 25 MCG/HR TDSY TD SCH (11:10)
--- NOTE | 2020-02-02 11:43 | Surgery Progress Note ---
Date of Service February 02, 2020 Assessment & Plan (1) Hematoma of left lower extremity: Tissue has further demarcated. Verbal consent was obtained from patient for bedside debridement today. Using a scissor and forceps, nonviable skin and subcutaneous tissue was cut away revealing residual hematoma and soft tissue infiltration as well as significant tissue undermining. This represented excisional debridement of 19 x 17 cm. discussed with the patient she will most likely require split-thickness skin grafting to be performed, not at this admission. Irrigating VAC cannot be used at [facility]. We discussed replacing the irrigation VAC and keeping her for another 24 hours to help further irrigate the wound. Based on requirements by the nursing facility, she will either return tomorrow with hydrogel dressings and for placement of wound VAC upon arrival, or will be discharged with a silver foam wound VAC. She should follow-up with me at the wound care center in 1 week. (2) Open wound of left lower leg: Subjective Patient seen and examined bedside with Margareth HENRY. Patient reports improvement in her pain. Irrigating VAC has been in place since . Review of Systems Integumentary: as per Subjective / HPI Physical Exam Constitutional: WD/WN, vitals as above Eyes: PERRL, conjunctivae normal, anicteric sclerae ENMT: external ear and nose normal, oropharynx normal Respiratory: normal respiratory effort; no respiratory distress Musculoskeletal: Extremities: + chronic stasis changes (bilateral LE); no clubbing Skin: no rashes, warm and dry + wound Right posterior calf, 17 x 15 cm superficial wound noted, still with some tissue infiltration of old hematoma. Wound periphery has further demarcated. Minimal granulation tissue. Decrease in surrounding erythema. Psychiatric: A+Ox3, euthymic affect Results & Data Vital Signs (Past 12 Hours) Vital Signs Temp Pulse Pulse Resp BP BP Pulse Ox 02/02/20 11:18 97.7 F 88 18 113/68 96 02/02/20 07:32 68 02/02/20 07:25 97.7 F 77 18 103/63 96 02/02/20 04:10 98.2 F 79 18 92/62 L 93 PG Care Time/CCT Total # of Minutes Spent Total Time Spent with Patient: Total time spent is greater than 50% in coordinat ion of care (as documented) at patient's floor/unit and/or counseling patient: Coding Level of Care Code 68646 Subseq Hosp Care Lvl 2 (25 - SIGNIFICANT, SEPARATELY IDENTIFIABLE ) Diagnoses Hematoma of left lower extremity S80.12XA Encounter type: initial encounter Open wound of left lower leg S81.802A CPT Codes [place]br[place] Skin/Tissue - [id number] ([id number]) (1) Hematoma of left lower extremity Encounter type: initial encounter Qualified Code(s): S80.12XA - Contusion of left lower leg, initial encounter
[2020-02-02] MEDS: WARFARIN SOD 3 MG TAB PO SCH (16:40)
[2020-02-02] MEDS: MONTELUKAST SODIUM 10 MG TABLET PO SCH (20:32)
[2020-02-02] MEDS: MELATONIN 3 MG TAB PO SCH (20:34)
[2020-02-02] MEDS: TRAZODONE HCL 50 MG TAB PO SCH (20:37)
[2020-02-03 04:51] LABS: Hematocrit (blood only) 27.1 % (37-47); Hemoglobin 8.6 g/dL (12.0-16.0); Mean Corpuscular Hemoglobin 32.5 pg (25-34); Mean Corpuscular Hgb Conc 31.7 g/dL (32-36); Mean Corpuscular Volume 102.3 fL (80-100); Platelet Count 349 K/uL (130-400); RDW Coefficient of Variation 16.9 % (11.5-14.5); RDW Standard Deviation 61.2 fL (36.4-46.3); Red Blood Count 2.65 M/uL (4.2-5.4); White Blood Count 8.32 K/uL (4.8-10.8)
[2020-02-03 05:00] LABS: INR 1.1 (0.9-1.1); Prothrombin Time 11.8 Seconds (9.0-12.0)
[2020-02-03 05:11] LABS: BUN Creatinine Ratio 34.2 (10-20); Calcium 8.5 mg/dl (8.5-10.1); Creatinine Clr Calc Pharmacy 42.9 ml/min; Est GFR (African American) 40.6; Potassium 4.3 mmol/L (3.5-5.1)
[2020-02-03] MEDS: LEVOTHYROXINE SODIUM 75 MCG TABLET PO SCH (05:50)
--- NOTE | 2020-02-03 07:04 | Discharge Summary ---
Date of Service February 03, 2020 Admission HPI Per Admitting Provider This is a 79-year-old female who has significant past medical history of chronic respiratory failure on O2, COPD, diastolic CHF, chronic atrial fibrillation on warfarin, T2DM, CKD stage III, HTN, chronic pain, history of PE/DVT, history of MRSA who presents to ED status post fall yesterday along with worsened left lower extremity pain and swelling. She presents from [facility]. She sustained a fall in the shower yesterday where she describes aide left go of her belt and she fell on her L side. She has been having increased swelling and pain to the LLE. She recalls the fall and did not lose consciousness. She denies syncope. Overall she feels, "horrible." Complains of nausea and emesis x 1 in ED. She denies any f/c/s, dizziness, lightheaded, chest pain, sob, cough, palpitations. She is alert and oriented to surroundings but to conversation she appears confused. According to [facility] records she has been treated for a bronchopneumonia end of november early december with Augmentin. She is on warfarin and her INR was 4.1 yesterday. Her warfarin has been held. In ED upon my evaluation she was hemodynamically unstable with SBP in 70s and HR > 100. She received 1L of IVF bolus which impoved SBP into 120s. Lab work revealed leukocytosis 14.8 AK, H&H 12.7 and 37.7, platelet 180, INR 4.6, sodium 133, K4.6, chloride 97, BUN 46, Cr 1.6, mag 3.7. She had multiple imaging including head CT x 2 negative for bleed. Repeat scan done due to worsening KUMARI during evaluation. Cspine, Femur xray, Knee Xray, Tib/fib xray negative for acute fracture. In ED she received 1g IV rocephin, mg IV vitamin K, and 1L IVF. Admission Exam Per Admitting Provider Constitutional: Elderly, F, lethargic, pale and drowsy, vitals as above, NAD, answers questions approp Head: Normocephalic, Atraumatic Eyes: PERRL, conjunctivae normal, anicteric sclerae ENMT: external ear and nose normal, oropharynx normal dry mucous membranes Neck: trachea midline, no thyromegaly normal visual inspection Respiratory: normal respiratory effort, lungs clear to auscultation, no wheeze, rales, rhonchi. Normal insp/exp effort, no accessory muscle use Cardiovascular: Irr/Irr, no murmur, Vessels: no JVD or carotid bruit Chest: normal inspection of chest Abdomen: obese abdomen, normal bowel sounds, soft, nontender, no hepatosplenomegaly Musculoskeletal: + edema and ecchymosis to LLE, L > R, +1 pulse b/l, b/l feet cool but cap refill normal, no cyanosis or clubbing, extremities motor strength 4/5 upper ext, unable to assess lower ext due to pain Skin: significant ecchymosis on b/l upper and lower ext, b/l erythematous rash under breast and panus, warm and dry moderate turgor Neurologic: PERRL, EOMI, accommodation nl, no face palsy, no dysarthria CN's I I-XI intact bilaterally and moves all extremities Psychiatric: A+Ox3 but minimal, euthymic affect Lymphatic: no cervical or axillary lymphadenopathy : deferred Principal Diagnosis (1) Fall: (2) Elevated INR: (3) Hematoma of left lower extremity: (4) Acute blood loss anemia: (5) Leukocytosis: Urinary Tract Infection: POA (6) Acute kidney injury superimposed on CKD: Hyperkalemia: Hypermagnesemia: (7) Diastolic CHF: (8) DM type 2 (diabetes mellitus, type 2): (9) Hypertension: (10) Hypothyroidism: (11) Chronic pain: (12) Atrial fibrillation: H/O PE as per records (13) Chronic respiratory failure: (14) COPD (chronic obstructive pulmonary disease): Discharge Exam See below Discharge Data Allergies Allergy/AdvReac Type Severity Reaction Status Date / Time meperidine [From Demerol] Allergy Unknown ON [facility] Verified 01/22/20 11:35 [facility] LIST morphine AdvReac Intermediate vomiting Verified 01/22/20 11:35 oxycodone AdvReac Intermediate vomit blood Verified 01/22/20 11:35 propoxyphene AdvReac Intermediate abd vomit Verified 01/22/20 11:35 blood tramadol AdvReac Intermediate vomiting Verified 12/25/19 23:09 Bactrim AdvReac Mild GI SYMPTOMS Verified 03/06/18 21:06 codeine AdvReac Mild vomiting Verified 01/22/20 11:35 olmesartan AdvReac Mild GI SYMPTOMS Verified 12/25/19 23:09 Sulfa (Sulfonamide AdvReac Mild GI SYMPTOMS Verified 01/22/20 11:35 Antibiotics) sulfamethoxazole AdvReac Mild GI SYMPTOMS Verified 01/22/20 11:35 trimethoprim AdvReac Mild GI SYMPTOMS Verified 01/22/20 11:35 carisoprodol AdvReac Unknown GI SYMPTOMS Verified 12/10/19 14:37 Consultations 01/22/20 14:26 ED Decision to Admit Stat 01/22/20 15:11 Consult Orthopedic Surgery Stat 01/22/20 20:55 Consult Case Management - Discharge Planning Routine 01/24/20 08:39 Consult Plastic Surgery Routine Ordered Studies 01/22/20 10:28 CT cervical spine wo con Stat CT head/brain wo con Stat 01/22/20 14:35 CT abd pelvis IV con only Stat 01/22/20 14:43 CT angio LE LT w inc wo if don Stat 01/22/20 15:43 CT head/brain wo con Stat Current Diagnoses Acute posthemorrhagic anemia (01/22/20) Elevated white blood cell count, unspecified (01/22/20) Hypothyroidism, unspecified (01/22/20) Type 2 diabetes mellitus without complications (01/22/20) Other chronic pain (01/22/20) Essential (primary) hypertension (01/22/20) Unspecified atrial fibrillation (01/22/20) Unspecified diastolic (congestive) heart failure (01/22/20) Chronic obstructive pulmonary disease, unspecified (01/22/20) Chronic respiratory failure, unspecified whether with hypoxia or hypercapnia (01/22/20) Dorsalgia, unspecified (01/22/20) Acute kidney failure, unspecified (01/22/20) Chronic kidney disease, unspecified (01/22/20) Abnormal coagulation profile (01/22/20) Contusion of left lower leg, initial encounter (01/22/20) Unspecified open wound, left lower leg, initial encounter (01/22/20) Unspecified fall, initial encounter (01/22/20) Encounter for prophylactic measures, unspecified (01/22/20) Allergies meperidine [From Demerol] Allergy (Unknown, Verified 01/22/20 11:35) ON [facility] LIST morphine Adverse Reaction (Intermediate, Verified 01/22/20 11:35) vomiting oxycodone Adverse Reaction (Intermediate, Verified 01/22/20 11:35) vomit blood propoxyphene Adverse Reaction (Intermediate, Verified 01/22/20 11:35) abd vomit blood tramadol Adverse Reaction (Intermediate, Verified 12/25/19 23:09) vomiting Bactrim Adverse Reaction (Mild, Verified 03/06/18 21:06) GI SYMPTOMS codeine Adverse Reaction (Mild, Verified 01/22/20 11:35) vomiting olmesartan Adverse Reaction (Mild, Verified 12/25/19 23:09) GI SYMPTOMS Sulfa (Sulfonamide Antibiotics) Adverse Reaction (Mild, Verified 01/22/20 11:35) GI SYMPTOMS sulfamethoxazole Adverse Reaction (Mild, Verified 01/22/20 11:35) GI SYMPTOMS trimethoprim Adverse Reaction (Mild, Verified 01/22/20 11:35) GI SYMPTOMS carisoprodol Adverse Reaction (Unknown, Verified 12/10/19 14:37) GI SYMPTOMS Height/Weight/Isolation Height 5 ft 7 in Weight 116.9 kg Isolation Type Removed Precautions Chemistry 02/03/20 04:32 Sodium 137 Potassium 4.3 Chloride 103 Carbon Dioxide 29 Anion Gap 5.0 BUN 49 H Creatinine 1.43 H Glucose 122 H Hospital Course (1) Fall: (2) Elevated INR: (3) Hematoma of left lower extremity: Patient is a 79 yr female with H/O Chronic respiratory failure with hypoxia, COPD, diastolic CHF, chronic atrial fibrillation on warfarin, DM II, CKD III, HTN, chronic pain, H/O PE/DVT, H/O MRSA who presents left lower extremity pain and swelling secondary to fall. Left Lower Extremity Hematoma Secondary to fall in setting of supratherapeutic INR due to Coumadin Intraprocedural hemorrhage of skin and subcutaneous tissue, not a complication of care --Left LE CTA:Large mixed attenuating hematoma of the posterior subcutaneous left lower leg measures up to 33.8 cm in greatest dimension and demonstrates several areas of active extravasation. No intramuscular hematoma. Demineralized appearance the bones with multifocal osteoarthritis. No acute fracture or dislocation identified. Moderate joint effusion of the knee. --CT Head:No acute intracranial abnormality. --CT ABD/Pelvis:No acute intra-abdominal or intrapelvic abnormality. No acute fracture. --CT Neck:No fractures within the cervical spine. Degenerative change --INR:4.6 on presentation --Patient received Vitamin k and K centra which revered her INR to 0.9 --S/P 2 units PRBCs --Monitor H&H and transfuse PRBCs as needed --Appreciate Orthopedics/Plastic Surgery Input --Continue wound Care, dressing --PT/OT: LLE WBAT --Needs follow up with wound clinic upon discharge --Had evacuation of hematoma on 01/26/20 --Hb stable --Continue wound care (4) Acute blood loss anemia: Secondary to large subcutaneous left lower extremity hematoma in setting of Supratherapeutic INR S/P 2 units PRBCs (5) Leukocytosis: Urinary Tract Infection: POA Other sources: Possible Leg wound infection/Joyce Umbilical skin Infection CXR:Chronic change. No acute process. H/O MRSA Off Daptomycin Completed Cipro and Dapto courses Urine Cx:E.Coli, Morganella Blood Cx: No growth (6) Acute kidney injury superimposed on CKD: RSOEY on CKD III CT ABD: No renal or ureteral calculi or obstructive uropathy. Likely due to hypoperfusion due to acute blood loss/IV contrast could have contributed as well Cr:2.0>>1.6>> 1.3 Received gentle IV fluids given H/O diastolic CHF Avoid nephrotoxic agents as able Monitor renal function Hyperkalemia: Hypermagnesemia: Likely due to ORSEY Hold potassium/Mag supplements Monitor electrolytes Lasix resumed (7) Diastolic CHF: H/O HFpEF No signs of exacerbation Monitor volume status Lasix, Aldactone held initially due to ROSEY Monitor daily weights, I/Os Resumed lasix, Aldactone, Metolazone (8) DM type 2 (diabetes mellitus, type 2): Hb A1c 6.8 11/2019 Currently not on oral hypoglycemics Monitor blood sugar AC/HS Novolog sliding scale per protocol (9) Hypertension: Hypotensive due to acute blood loss on presentation BP Variable (10) Hypothyroidism: Continue levothyroxine (11) Chronic pain: 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 On fentanyl patch at baseline 25 mcg every 72 hour Hold Narcotics if excess sedation Insomnia: Continue Trazodone, Melatonin (12) Atrial fibrillation: Chronic atrial fibrillation Rate controlled Continue metoprolol Coumadin held Started on Heparin SQ for DVT Px today Will need to be restarted on Coumadin for Afib H/O PE as per records Anticoagulation on hold due to acute blood loss Patient reports Pulm hemorrhage many years ago She denies any known H/O PE/DVT (13) Chronic respiratory failure: Secondary to COPD/asthma Chronic oxygen dependency: on 2 L at bedtime No signs of exacerbation Continue home inhalers (14) COPD (chronic obstructive pulmonary disease): As above (15) DVT prophylaxis: Warfarin Code Status DNI/DNR Disposition: Bed Hold at [facility], Irrigating Wound vac was placed after bedside debridement on 01/28, Outpatient Wound Clinic on DC, resume Warfarin Labs checked ROS-No Headache, No Visual Changes, No Nausea, No Vomiting, No Fever, No Chills, No Neck Pain or Stiffness, No Chest Pain, No Palpitations, No SOB, No BARBOUR, No Cough, No Sputum, No Wheezing, No Abdominal Pain, No Diarrhea, No Hematemesis, No Hemoptysis, No Unexpected Weight Loss, No Flank pain, No Melena, No Hematochezia, No Frequency, No Urgency, No Burning, No Hematuria, No Rashes, No Diaphoresis. Appetite is Normal, weak Physical Exam Gen-AAO x 3, NAD, Afebrile, obese Head-NCAT, EOMI, PERRLA, Anicteric Sclera, No Posterior Pharyngeal Erythema Neck-Supple, No JVD, No Thyromegaly, No Masses, No LAD, No Bruits Lungs-Clear to Auscultation Bilaterally, No Rales, No Rhonchi, No Wheezing, No Crepitus Chest-No S4, +S1, +S2, No S3, No Murmurs, No Rubs, No Gallops, No Ectopy Abdomen-Soft, Bowel Sounds Present, Non Tender, Non Distended, No Hepatomegaly, No Splenomegaly, No Palpable Masses, No Rebound, No Rigidity, No Guarding Musculoskeletal-Full Range of Motion Bilaterally, No CVAT Extremities-LLE Gauze wrapped Nuero-Cranial Nerves II-XII grossly intact, Motor WNL, DTRs WNL, Strength WNL, Non Focal Psych-Normal Mood Total Time Total Time Spent Total Time Spent (In Minutes): 45 mins Total Time Includes: Examination of the Patient, Discharge Planning, Medication Reconciliation and Communication With Other Providers Discharge Plan Discharge Items Patient Disposition: Transfer Snf Fac Reason For Visit: LARGE CALF HEMATOMA;SUPRATHERAPEUTIC INR;S/P FALL Discharge Diagnosis: (1) Fall: (2) Elevated INR: (3) Hematoma of left lower extremity: (4) Acute blood loss anemia: (5) Leukocytosis: Urinary Tract Infection: POA (6) Acute kidney injury superimposed on CKD: Hyperkalemia: Hypermagnesemia: (7) Diastolic CHF: (8) DM type 2 (diabetes mellitus, type 2): (9) Hypertension: (10) Hypothyroidism: (11) Chronic pain: (12) Atrial fibrillation: H/O PE as per records (13) Chronic respiratory failure: (14) COPD (chronic obstructive pulmonary disease): Condition on Discharge: Good Activity: Per Instructions section Activity Comment: As Toerated Lifting: None Bathing Comment: Sponge Baths Exercise/Sports: None Driving/Machine Use: None Weightbearing: Full weightbearing Weightbearing Comment: With Assist Non-emergency contact: Primary Care Provider, Surgeon and Specialist Call non-emergency contact if: you have any medication questions Follow-up/Referrals: Elise Roldan MD [Physician] - Freddy Pinto [Primary Care Provider] - Diet: Carb Consistent or DM2 Addtl Attending Provider Instructions: Wound Vac Per Plastics Pending Studies at Discharge: No Stand-Alone Forms: My [facility] Skilled Items Patient informed of condition?: Yes DNR: Yes Discharge Level of Care: Skilled Communicable Disease: No Discharge Prognosis: Improving Lines: None Urinary Catheter: No Medications and DC Order Prescriptions: New warfarin [Coumadin] 3 mg Tablet 3 mg PO DAILY@1600 Qty: 7 RF: 0 polyethylene glycol 3350 [Miralax] 17 gram Powder In Packet 17 g PO BID Qty: 5 RF: 0 propranolol 10 mg Tablet 10 mg PO TID Qty: 30 RF: 0 Continued magnesium oxide 250 mg magnesium tablet 250 mg PO DAILY RF: 0 digoxin 125 mcg tablet 125 mcg PO MOWEFR RF: 0 spironolactone 25 mg tablet 25 mg PO QAM RF: 0 cholecalciferol (vitamin D3) 1,000 unit capsule 1,000 units PO DAILY RF: 0 ondansetron HCl [Zofran] 8 mg Tablet 8 mg PO Q8 PRN (Reason: Nausea) RF: 0 sucralfate 1 gram Tablet 1 g PO AMPM RF: 0 allopurinol 100 mg Tablet 200 mg PO QAM RF: 0 levothyroxine 75 mcg Tablet 75 mcg PO DAILYBB RF: 0 meclizine 25 mg Tablet 25 mg PO TID PRN (Reason: Dizziness) RF: 0 docusate sodium [Colace] 100 mg Capsule 100 mg PO BID RF: 0 montelukast 10 mg Tablet 10 mg PO PM RF: 0 duloxetine 60 mg Capsule,Delayed Release(Dr/Ec) 60 mg PO QAM RF: 0 pregabalin [Lyrica] 50 mg Capsule 50 mg PO TIDM RF: 0 acetaminophen [Tylenol] 325 mg Capsule 650 mg PO Q4 PRN (Reason: Fever Or Pain) RF: 0 melatonin 10 mg Tablet 10 mg PO HS RF: 0 trazodone 50 mg tablet 25 mg PO DAILY RF: 0 simethicone [Gas Relief (simethicone)] 180 mg Capsule 180 mg PO DAILY PRN (Reason: Gastrointestinal Spasms Or Cramping) RF: 0 sennosides [senna] 8.6 mg Tablet 8.6 mg PO BID RF: 0 Incruse Ellipta 62.5 mcg/actuation Blister With Device 1 inh INHALATION QAM RF: 0 betamethasone dipropionate 0.05 % Ointment 1 applic TOPICAL BID PRN (Reason: Rash) RF: 0 Desenex 2 % Powder 1 applic TOPICAL TID RF: 0 buspirone 10 mg Tablet 10 mg PO BID RF: 0 metoprolol succinate [Toprol XL] 100 mg Tablet Extended Release 24 Hr 100 mg PO BID RF: 0 metolazone 2.5 mg Tablet 2.5 mg PO WESA RF: 0 trazodone 50 mg tablet 50 mg PO HS RF: 0 guaifenesin [Siltussin SA] 100 mg/5 mL Liquid 200 mg PO Q4 PRN (Reason: Cough) RF: 0 famotidine [Pepcid] 20 mg tablet 20 mg PO BID RF: 0 furosemide [Lasix] 80 mg tablet 80 mg PO DAILY RF: 0 fluticasone propion-salmeterol [Advair Diskus] 500-50 mcg/dose blister with device 1 ea INHALATION BID RF: 0 fentanyl [Duragesic] 25 mcg/hr patch 72 hour 25 mcg topical [id number] RF: 0 potassium chloride 10 mEq tablet,ER particles/crystals 10 meq PO DAILY RF: 0 Cepacol Sore Throat (nataliia-men) 15-2.6 mg Lozenge 1 huan PO .Q2HRS PRN PRN (Reason: Sore Throat) RF: 0 guaifenesin [Mucinex] 600 mg Tablet Extended Release 12hr 600 mg PO BID RF: 0 levalbuterol HCl [Xopenex] 0.63 mg/3 mL Solution For Nebulization 0.63 mg INHALATION Q4H PRN (Reason: Wheezing) RF: 0 Refresh Classic (PF) 1.4-0.6 % dropperette 2 drp OPB TID RF: 0 glucosamine-chondroitin 250-200 mg Tablet 1 tab PO TID RF: 0 Discontinued colchicine 0.6 mg Tablet 0.6 mg PO QAM RF: 0 warfarin 1 mg Tablet 1 mg PO UD RF: 0 Discharge Orders: Discharge Order (Routine); Ordered 02/03/20 Ordered By: Anam Villeda Admission Data Admit Date/Time: 01/22/20 17:25 Attending Provider: Anam Villeda Admit Provider: Opal العراقي [facility] Other Providers: Opal العراقي ; Braydon Small Emily A. ; [facility]
[2020-02-03] MEDS: FLUTICASONE/VILANTEROL 200/25MCG 14 PUFFS/INHALER INH SCH (07:34)
[2020-02-03] MEDS: UMECLIDINIUM BROMIDE 62.5MCG/BLISTER 7 PUFFS/INHALER INH SCH (07:34)
[2020-02-03] MEDS: CHOLECALCIFEROL 1,000 UNITS 25 MCG TAB PO SCH (07:35)
[2020-02-03] MEDS: allopurinoL 100 MG TAB PO SCH (07:35)
[2020-02-03] MEDS: POLYETHYLENE (MIRALAX) 17 GM PACK PO SCH ×2 (07:35→21:22)
[2020-02-03] MEDS: MICONAZOLE NITRATE POWDER 43 GM TOP SCH ×3 (07:35→21:36)
[2020-02-03] MEDS: FUROSEMIDE 80 MG TAB PO SCH (07:36)
[2020-02-03] MEDS: DOCUSATE SODIUM 100 MG CAP PO SCH ×2 (07:36→21:24)
[2020-02-03] MEDS: SENNA 8.6 MG TAB PO SCH ×2 (07:36→21:33)
[2020-02-03] MEDS: DULOXETINE HCL 60 MG CAP PO SCH (07:36)
[2020-02-03] MEDS: PREGABALIN 50 MG CAP PO SCH ×3 (07:36→17:37)
[2020-02-03] MEDS: PROPRANOLOL HCL 10 MG TAB PO SCH ×3 (07:36→21:23)
[2020-02-03] MEDS: FAMOTIDINE 20 MG TAB PO SCH ×2 (07:36→21:32)
[2020-02-03] MEDS: METOPROLOL SUCC 50MG EXT REL TAB PO SCH ×2 (07:36→21:24)
[2020-02-03] MEDS: CHECK FENTANYL PATCH PLACEMENT SCH ×2 (07:37→17:35)
[2020-02-03] MEDS: SUCRALFATE 1 GM TAB PO SCH ×2 (07:37→21:32)
[2020-02-03] MEDS: HEPARIN SOD 5,000 UNIT/0.5 ML VIAL SQ SCH ×3 (08:30→21:23)
[2020-02-03] MEDS: INSULIN ASPART 100 UNITS/ML 3 ML PEN SC SCH ×5 (08:31→21:53)
[2020-02-03] MEDS: ACETAMINOPHEN 325 MG TAB PO PRN (08:49)
[2020-02-03] MEDS: WARFARIN SOD 3 MG TAB PO SCH (17:35)
[2020-02-03] MEDS: MONTELUKAST SODIUM 10 MG TABLET PO SCH (21:25)
[2020-02-03] MEDS: TRAZODONE HCL 50 MG TAB PO SCH (21:33)
[2020-02-03] MEDS: MELATONIN 3 MG TAB PO SCH (21:33)
[2020-02-04] MEDS: CHECK FENTANYL PATCH PLACEMENT SCH ×2 (00:33→07:45)
[2020-02-04] MEDS: LEVOTHYROXINE SODIUM 75 MCG TABLET PO SCH (05:59)
[2020-02-04 06:00] LABS: INR 1.2 (0.9-1.1); Prothrombin Time 12.6 Seconds (9.0-12.0)
[2020-02-04] MEDS: UMECLIDINIUM BROMIDE 62.5MCG/BLISTER 7 PUFFS/INHALER INH SCH (07:43)
[2020-02-04] MEDS: POLYETHYLENE (MIRALAX) 17 GM PACK PO SCH (07:43)
[2020-02-04] MEDS: DULOXETINE HCL 60 MG CAP PO SCH (07:43)
[2020-02-04] MEDS: FLUTICASONE/VILANTEROL 200/25MCG 14 PUFFS/INHALER INH SCH (07:43)
[2020-02-04] MEDS: SUCRALFATE 1 GM TAB PO SCH (07:43)
[2020-02-04] MEDS: FAMOTIDINE 20 MG TAB PO SCH (07:44)
[2020-02-04] MEDS: CHOLECALCIFEROL 1,000 UNITS 25 MCG TAB PO SCH (07:44)
[2020-02-04] MEDS: PROPRANOLOL HCL 10 MG TAB PO SCH ×2 (07:44→13:40)
[2020-02-04] MEDS: METOPROLOL SUCC 50MG EXT REL TAB PO SCH (07:44)
[2020-02-04] MEDS: DIGOXIN 0.125 MG TAB PO SCH (07:44)
[2020-02-04] MEDS: SENNA 8.6 MG TAB PO SCH (07:44)
[2020-02-04] MEDS: DOCUSATE SODIUM 100 MG CAP PO SCH (07:44)
[2020-02-04] MEDS: FUROSEMIDE 80 MG TAB PO SCH (07:44)
[2020-02-04] MEDS: allopurinoL 100 MG TAB PO SCH (07:44)
[2020-02-04] MEDS: MICONAZOLE NITRATE POWDER 43 GM TOP SCH ×2 (07:45→13:40)
[2020-02-04] MEDS: PREGABALIN 50 MG CAP PO SCH ×2 (07:47→12:16)
[2020-02-04] MEDS: INSULIN ASPART 100 UNITS/ML 3 ML PEN SC SCH ×2 (07:47→12:16)
[2020-02-04] MEDS: HEPARIN SOD 5,000 UNIT/0.5 ML VIAL SQ SCH (07:48)
--- NOTE | 2020-02-04 13:19 | Hospitalist Progress Note ---
Date of Service February 04, 2020 Assessment & Plan (1) Fall: (2) Elevated INR: (3) Hematoma of left lower extremity: Patient is a 79 yr female with H/O Chronic respiratory failure with hypoxia, COPD, diastolic CHF, chronic atrial fibrillation on warfarin, DM II, CKD III, HTN, chronic pain, H/O PE/DVT, H/O MRSA who presents left lower extremity pain and swelling secondary to fall. Left Lower Extremity Hematoma Secondary to fall in setting of supratherapeutic INR due to Coumadin Intraprocedural hemorrhage of skin and subcutaneous tissue, not a complication of care --Left LE CTA:Large mixed attenuating hematoma of the posterior subcutaneous left lower leg measures up to 33.8 cm in greatest dimension and demonstrates several areas of active extravasation. No intramuscular hematoma. Demineralized appearance the bones with multifocal osteoarthritis. No acute fracture or dislocation identified. Moderate joint effusion of the knee. --CT Head:No acute intracranial abnormality. --CT ABD/Pelvis:No acute intra-abdominal or intrapelvic abnormality. No acute fracture. --CT Neck:No fractures within the cervical spine. Degenerative change --INR:4.6 on presentation --Patient received Vitamin k and K centra which revered her INR to 0.9 --S/P 2 units PRBCs --Appreciate Orthopedics/Plastic Surgery Input --Continue wound Care, dressing --PT/OT: LLE WBAT --Had evacuation of hematoma on 01/26/20 --Hb remains stable --Irrigating Wound vac was placed after bedside debridement on 01/28 --Needs follow up with wound clinic upon discharge (4) Acute blood loss anemia: Secondary to large subcutaneous left lower extremity hematoma in setting of Supratherapeutic INR S/P 2 units PRBCs (5) Leukocytosis: Urinary Tract Infection: POA Other sources: Possible Leg wound infection/Joyce Umbilical skin Infection CXR:Chronic change. No acute process. H/O MRSA Off Daptomycin Completed Cipro and Dapto courses Urine Cx:E.Coli, Morganella Blood Cx: No growth (6) Acute kidney injury superimposed on CKD: ROSEY on CKD III CT ABD: No renal or ureteral calculi or obstructive uropathy. Likely due to hypoperfusion due to acute blood loss/IV contrast could have contributed as well Cr:2.0>>1.6>> 1.4 Received gentle IV fluids given H/O diastolic CHF Avoid nephrotoxic agents as able Renal function remains stable Hyperkalemia:Resolved Hypermagnesemia:Resolved Potassium/Mag supplements held during hospital course Monitor electrolytes (7) Diastolic CHF: H/O HFpEF No signs of exacerbation Monitor volume status Lasix, Aldactone held initially due to ROSEY Monitor daily weights, I/Os Resumed lasix, Aldactone, Metolazone Euvolemic currently (8) DM type 2 (diabetes mellitus, type 2): Hb A1c 6.8 11/2019 Currently not on oral hypoglycemics Monitor blood sugar AC/HS Novolog sliding scale per protocol (9) Hypertension: Hypotensive due to acute blood loss on presentation continue current medications (10) Hypothyroidism: Continue levothyroxine (11) Chronic pain: 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 On fentanyl patch at baseline 25 mcg every 72 hour Hold Narcotics if excess sedation Insomnia: Continue Trazodone, Melatonin (12) Atrial fibrillation: Chronic atrial fibrillation Rate controlled Continue metoprolol Coumadin resumed Monitor PT/INR: 1.2 H/O PE as per records Anticoagulation on hold due to acute blood loss Patient reports Pulm hemorrhage many years ago She denies any known H/O PE/DVT (13) Chronic respiratory failure: Secondary to COPD/asthma Chronic oxygen dependency: on 2 L at bedtime No signs of exacerbation Continue home inhalers (14) COPD (chronic obstructive pulmonary disease): As above (15) DVT prophylaxis: Warfarin Code Status DNI/DNR Disposition: [facility] Admission and Anticipated Discharge Date Admission Date: January 22, 2020 Anticipated date of discharge: 02/03/20 Subjective Patient is seen and examined at bedside No new complaints Planned to be discharged to SNF today Denies any significant leg pain Also denies any chest pain, SOB, dizziness, nausea, abd pain Review of Systems Review of Systems: All systems reviewed & are unremarkable except as noted in HPI & below Physical Exam Physical Exam: Physical Exam: Vitals signs as noted above General Appearance:Morbidly Obese, no apparent distress Head: normocephalic, Atraumatic Eyes: normal inspection, EOMI Neck: supple, Trachea midline Respiratory/Chest: Decreased breath sounds, CTA Cardiovascular:Irregularly Irregular, No murmur Abdomen/GI:Soft, Non tender, Bowel sounds present, erythema around umbilicus Extremities/Musculoskelatal:normal inspection, 1-2+ B/L LE edema, Left LE in dressing Neurologic/Psych:AAOX3, grossly no focal neurological deficits Skin: normal color, warm, B/L LE ecchymosis Results & Data Results & Data ([facility]) Vital Signs (Past 12 Hours) Vital Signs Temp Pulse Pulse Pulse Resp BP Pulse Ox 02/04/20 11:11 36.3 C L 94 H 20 121/80 94 02/04/20 07:44 80 02/04/20 07:03 36.8 C 89 20 124/76 94 02/04/20 04:00 36.8 C 117 H 19 121/64 94 (1) Fall Encounter type: initial encounter Qualified Code(s): W19.XXXA - Unspecified fall, initial encounter (2) Hematoma of left lower extremity Encounter type: initial encounter Qualified Code(s): S80.12XA - Contusion of left lower leg, initial encounter (3) Atrial fibrillation Atrial fibrillation type: unspecified Qualified Code(s): I48.91 - Unspecified atrial fibrillation
--- NOTE | 2020-02-04 13:42 | Discharge Summary ---
Date of Service February 04, 2020 Admission HPI Per Admitting Provider This is a 79-year-old female who has significant past medical history of chronic respiratory failure on O2, COPD, diastolic CHF, chronic atrial fibrillation on warfarin, T2DM, CKD stage III, HTN, chronic pain, history of PE/DVT, history of MRSA who presents to ED status post fall yesterday along with worsened left lower extremity pain and swelling. She presents from [facility]. She sustained a fall in the shower yesterday where she describes aide left go of her belt and she fell on her L side. She has been having increased swelling and pain to the LLE. She recalls the fall and did not lose consciousness. She denies syncope. Overall she feels, "horrible." Complains of nausea and emesis x 1 in ED. She denies any f/c/s, dizziness, lightheaded, chest pain, sob, cough, palpitations. She is alert and oriented to surroundings but to conversation she appears confused. According to [facility] records she has been treated for a bronchopneumonia end of november early december with Augmentin. She is on warfarin and her INR was 4.1 yesterday. Her warfarin has been held. In ED upon my evaluation she was hemodynamically unstable with SBP in 70s and HR > 100. She received 1L of IVF bolus which impoved SBP into 120s. Lab work revealed leukocytosis 14.8 AK, H&H 12.7 and 37.7, platelet 180, INR 4.6, sodium 133, K4.6, chloride 97, BUN 46, Cr 1.6, mag 3.7. She had multiple imaging including head CT x 2 negative for bleed. Repeat scan done due to worsening KUMARI during evaluation. Cspine, Femur xray, Knee Xray, Tib/fib xray negative for acute fracture. In ED she received 1g IV rocephin, mg IV vitamin K, and 1L IVF. Admission Exam Per Admitting Provider Physical Exam Physical Exam: Constitutional: Elderly, F, lethargic, pale and drowsy, v itals as above, NAD, answers questions approp Head: Normocephalic, Atraumatic Eyes: PERRL, conjunctivae normal, anicteric sclerae ENMT: external ear and nose normal, oropharynx normal dry mucous membranes Neck: trachea midline, no thyromegaly normal visual inspection Respiratory: normal respiratory effort, lungs clear to auscultation, no wheeze, rales, rhonchi. Normal insp/exp effort, no accessory muscle use Cardiovascular: Irr/Irr, no murmur, Vessels: no JVD or carotid bruit Chest: normal inspection of chest Abdomen: obese abdomen, normal bowel sounds, soft, nontender, no hepatosplenom egaly Musculoskeletal: + edema and ecchymosis to LLE, L > R, +1 pulse b/l, b/l feet cool but cap refill normal, no cyanosis or clubbing, extremities motor strength 4/5 upper ext, unable to assess lower ext due to pain Skin: significant ecchymosis on b/l upper and lower ext, b/l erythematous rash under breast and panus, warm and dry moderate turgor Neurologic: PERRL, EOMI, accommodation nl, no face palsy, no dysarthria CN's II-XI intact bilaterally and moves all extremities Psychiatric: A+Ox3 but minimal, euthymic affect Lymphatic: no cervical or axillary lymphadenopathy : deferred Principal Diagnosis Left Lower Extremity Hematoma Secondary to fall in setting of supratherapeutic INR due to Coumadin Acute blood loss anemia Urinary Tract Infection Acute kidney injury superimposed on CKD Hyperkalemia Hypermagnesemia Discharge Data Allergies Allergy/AdvReac Type Severity Reaction Status Date / Time meperidine [From Demerol] Allergy Unknown ON Verified 01/22/20 11:35 HILL LIST morphine AdvReac Intermediate vomiting Verified 01/22/20 11:35 oxycodone AdvReac Intermediate vomit blood Verified 01/22/20 11:35 propoxyphene AdvReac Intermediate abd vomit Verified 01/22/20 11:35 blood tramadol AdvReac Intermediate vomiting Verified 12/25/19 23:09 Bactrim AdvReac Mild GI SYMPTOMS Verified 03/06/18 21:06 codeine AdvReac Mild vomiting Verified 01/22/20 11:35 olmesartan AdvReac Mild GI SYMPTOMS Verified 12/25/19 23:09 Sulfa (Sulfonamide AdvReac Mild GI SYMPTOMS Verified 01/22/20 11:35 Antibiotics) sulfamethoxazole AdvReac Mild GI SYMPTOMS Verified 01/22/20 11:35 trimethoprim AdvReac Mild GI SYMPTOMS Verified 01/22/20 11:35 carisoprodol AdvReac Unknown GI SYMPTOMS Verified 12/10/19 14:37 Consultations 01/22/20 14:26 ED Decision to Admit Stat 01/22/20 15:11 Consult Orthopedic Surgery Stat 01/22/20 20:55 Consult Case Management - Discharge Planning Routine 01/24/20 08:39 Consult Plastic Surgery Routine Procedures Performed --Left LE CTA:Large mixed attenuating hematoma of the posterior subcutaneous left lower leg measures up to 33.8 cm in greatest dimension and demonstrates several areas of active extravasation. No intramuscular hematoma. Demineralized appearance the bones with multifocal osteoarthritis. No acute fracture or dislocation identified. Moderate joint effusion of the knee. --CT Head:No acute intracranial abnormality. --CT ABD/Pelvis:No acute intra-abdominal or intrapelvic abnormality. No acute fracture. --CT Neck:No fractures within the cervical spine. Degenerative change --CT ABD:No acute intra-abdominal or intrapelvic abnormality. No acute fracture. Chronic findings as above. Ordered Studies 01/22/20 10:28 CT cervical spine wo con Stat CT head/brain wo con Stat 01/22/20 14:35 CT abd pelvis IV con only Stat 01/22/20 14:43 CT angio LE LT w inc wo if don Stat 01/22/20 15:43 CT head/brain wo con Stat Hospital Course (1) Fall: (2) Elevated INR: (3) Hematoma of left lower extremity: Patient is a 79 yr female with H/O Chronic respiratory failure with hypoxia, COPD, diastolic CHF, chronic atrial fibrillation on warfarin, DM II, CKD III, HTN, chronic pain, H/O PE/DVT, H/O MRSA who presents left lower extremity pain and swelling secondary to fall. Left Lower Extremity Hematoma Secondary to fall in setting of supratherapeutic INR due to Coumadin Intraprocedural hemorrhage of skin and subcutaneous tissue, not a complication of care --Left LE CTA:Large mixed attenuating hematoma of the posterior subcutaneous left lower leg measures up to 33.8 cm in greatest dimension and demonstrates several areas of active extravasation. No intramuscular hematoma. Demineralized appearance the bones with multifocal osteoarthritis. No acute fracture or dislocation identified. Moderate joint effusion of the knee. --CT Head:No acute intracranial abnormality. --CT ABD/Pelvis:No acute intra-abdominal or intrapelvic abnormality. No acute fracture. --CT Neck:No fractures within the cervical spine. Degenerative change --INR:4.6 on presentation --Patient received Vitamin k and K centra which revered her INR to 0.9 --S/P 2 units PRBCs --Appreciate Orthopedics/Plastic Surgery Input --Continue wound Care, dressing --PT/OT: LLE WBAT --Had evacuation of hematoma on 01/26/20 --Hb remains stable --Irrigating Wound vac was placed after bedside debridement on 01/28 --Needs follow up with wound clinic upon discharge (4) Acute blood loss anemia: Secondary to large subcutaneous left lower extremity hematoma in setting of Supratherapeutic INR S/P 2 units PRBCs (5) Leukocytosis: Urinary Tract Infection: POA Other sources: Possible Leg wound infection/Joyce Umbilical skin Infection CXR:Chronic change. No acute process. H/O MRSA Off Daptomycin Completed Cipro and Dapto courses Urine Cx:E.Coli, Morganella Blood Cx: No growth (6) Acute kidney injury superimposed on CKD: ROSEY on CKD III CT ABD: No renal or ureteral calculi or obstructive uropathy. Likely due to hypoperfusion due to acute blood loss/IV contrast could have contributed as well Cr:2.0>>1.6>> 1.4 Received gentle IV fluids given H/O diastolic CHF Avoid nephrotoxic agents as able Renal function remains stable Hyperkalemia:Resolved Hypermagnesemia:Resolved Potassium/Mag supplements held during hospital course Monitor electrolytes (7) Diastolic CHF: H/O HFpEF No signs of exacerbation Monitor volume status Lasix, Aldactone held initially due to ROSEY Monitor daily weights, I/Os Resumed lasix, Aldactone, Metolazone Euvolemic currently (8) DM type 2 (diabetes mellitus, type 2): Hb A1c 6.8 11/2019 Currently not on oral hypoglycemics Monitor blood sugar AC/HS Novolog sliding scale per protocol (9) Hypertension: Hypotensive due to acute blood loss on presentation continue current medications (10) Hypothyroidism: Continue levothyroxine (11) Chronic pain: 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 On fentanyl patch at baseline 25 mcg every 72 hour Hold Narcotics if excess sedation Insomnia: Continue Trazodone, Melatonin (12) Atrial fibrillation: Chronic atrial fibrillation Rate controlled Continue metoprolol Coumadin resumed Monitor PT/INR: 1.2 H/O PE as per records Anticoagulation on hold due to acute blood loss Patient reports Pulm hemorrhage many years ago She denies any known H/O PE/DVT (13) Chronic respiratory failure: Secondary to COPD/asthma Chronic oxygen dependency: on 2 L at bedtime No signs of exacerbation Continue home inhalers (14) COPD (chronic obstructive pulmonary disease): As above (15) DVT prophylaxis: Warfarin Code Status DNI/DNR Disposition: [facility] Total Time Total Time Spent Total Time Spent (In Minutes): 38 minutes Total Time Includes: Examination of the Patient, Discharge Planning, Medication Reconciliation, Communication With Other Providers and Other Discharge Plan Discharge Items Patient Disposition: Transfer Long Term Fac Reason For Visit: LARGE CALF HEMATOMA;SUPRATHERAPEUTIC INR;S/P FALL Discharge Diagnosis: (1) Fall: (2) Elevated INR: (3) Hematoma of left lower extremity: (4) Acute blood loss anemia: (5) Leukocytosis: Urinary Tract Infection: POA (6) Acute kidney injury superimposed on CKD: Hyperkalemia: Hypermagnesemia: (7) Diastolic CHF: (8) DM type 2 (diabetes mellitus, type 2): (9) Hypertension: (10) Hypothyroidism: (11) Chronic pain: (12) Atrial fibrillation: H/O PE as per records (13) Chronic respiratory failure: (14) COPD (chronic obstructive pulmonary disease): Condition on Discharge: Good Activity: Per Instructions section Activity Comment: As Toerated Lifting: None Bathing Comment: Sponge Baths Exercise/Sports: None Driving/Machine Use: None Weightbearing: Full weightbearing Weightbearing Comment: With Assist Non-emergency contact: Primary Care Provider, Surgeon and Specialist Call non-emergency contact if: you have any medication questions Follow-up/Referrals: Elise Roldan MD [Physician] - (Follow up in wound care center in 1 week) [facility] [Primary Care Provider] - Diet: Carb Consistent or DM2 and Heart Healthy Ambulatory Orders: Prothrombin Time INR (Routine) Timeframe: 1 Day Location: Determined by Patient Ordered By: Wilbert Carrero Attending Provider Instructions: Wound Vac Per Plastics Follow up with your Primary Care Physician in 1 week Follow up with your Surgeon Dr.Emily Roldan in 1 week at wound Clinic as advised GET PT/INR Checked on 02/05/20 and follow up with your physician for adjustment of your coumadin dosing Seek immediate medical attention if your symptoms reoccur or worsen Pending Studies at Discharge: No Stand-Alone Forms: My [facility] Skilled Items Patient informed of condition?: Yes DNR: Yes Discharge Level of Care: Skilled Communicable Disease: No Discharge Prognosis: Improving Lines: None Urinary Catheter: No Medications and DC Order Prescriptions: New polyethylene glycol 3350 [Miralax] 17 gram powder in packet 17 gm PO DAILY PRN (Reason: constipation) Qty: 30 RF: 0 Continued digoxin 125 mcg tablet 125 mcg PO MOWEFR RF: 0 spironolactone 25 mg tablet 25 mg PO QAM RF: 0 cholecalciferol (vitamin D3) 1,000 unit capsule 1,000 units PO DAILY RF: 0 ondansetron HCl [Zofran] 8 mg Tablet 8 mg PO Q8 PRN (Reason: Nausea) RF: 0 sucralfate 1 gram Tablet 1 g PO AMPM RF: 0 allopurinol 100 mg Tablet 200 mg PO QAM RF: 0 levothyroxine 75 mcg Tablet 75 mcg PO DAILYBB RF: 0 meclizine 25 mg Tablet 25 mg PO TID PRN (Reason: Dizziness) RF: 0 docusate sodium [Colace] 100 mg Capsule 100 mg PO BID RF: 0 montelukast 10 mg Tablet 10 mg PO PM RF: 0 duloxetine 60 mg Capsule,Delayed Release(Dr/Ec) 60 mg PO QAM RF: 0 pregabalin [Lyrica] 50 mg Capsule 50 mg PO TIDM RF: 0 acetaminophen [Tylenol] 325 mg Capsule 650 mg PO Q4 PRN (Reason: Fever Or Pain) RF: 0 melatonin 10 mg Tablet 10 mg PO HS RF: 0 trazodone 50 mg tablet 25 mg PO DAILY RF: 0 simethicone [Gas Relief (simethicone)] 180 mg Capsule 180 mg PO DAILY PRN (Reason: Gastrointestinal Spasms Or Cramping) RF: 0 sennosides [senna] 8.6 mg Tablet 8.6 mg PO BID RF: 0 Incruse Ellipta 62.5 mcg/actuation Blister With Device 1 inh INHALATION QAM RF: 0 betamethasone dipropionate 0.05 % Ointment 1 applic TOPICAL BID PRN (Reason: Rash) RF: 0 Desenex 2 % Powder 1 applic TOPICAL TID RF: 0 buspirone 10 mg Tablet 10 mg PO BID RF: 0 metoprolol succinate [Toprol XL] 100 mg Tablet Extended Release 24 Hr 100 mg PO BID RF: 0 metolazone 2.5 mg Tablet 2.5 mg PO WESA RF: 0 trazodone 50 mg tablet 50 mg PO HS RF: 0 guaifenesin [Siltussin SA] 100 mg/5 mL Liquid 200 mg PO Q4 PRN (Reason: Cough) RF: 0 famotidine [Pepcid] 20 mg tablet 20 mg PO BID RF: 0 furosemide [Lasix] 80 mg tablet 80 mg PO DAILY RF: 0 fluticasone propion-salmeterol [Advair Diskus] 500-50 mcg/dose blister with device 1 ea INHALATION BID RF: 0 fentanyl [Duragesic] 25 mcg/hr patch 72 hour 25 mcg topical [id number] RF: 0 Cepacol Sore Throat (nataliia-men) 15-2.6 mg Lozenge 1 huan PO .Q2HRS PRN PRN (Reason: Sore Throat) RF: 0 guaifenesin [Mucinex] 600 mg Tablet Extended Release 12hr 600 mg PO BID RF: 0 levalbuterol HCl [Xopenex] 0.63 mg/3 mL Solution For Nebulization 0.63 mg INHALATION Q4H PRN (Reason: Wheezing) RF: 0 Refresh Classic (PF) 1.4-0.6 % dropperette 2 drp OPB TID RF: 0 glucosamine-chondroitin 250-200 mg Tablet 1 tab PO TID RF: 0 warfarin 1 mg Tablet 1 mg PO UD RF: 0 Discontinued magnesium oxide 250 mg magnesium tablet 250 mg PO DAILY RF: 0 colchicine 0.6 mg Tablet 0.6 mg PO QAM RF: 0 potassium chloride 10 mEq tablet,ER particles/crystals 10 meq PO DAILY RF: 0 Discharge Orders: Discharge Order (Routine); Ordered 02/04/20 Ordered By: Wilbert Santiago Admission Data Admit Date/Time: 01/22/20 17:25 Attending Provider: Wilbert Santiago Admit Provider: Opal العراقي Primary Care Provider: [facility] Other Providers: Opal العراقي ; Braydon Small ; Elise Roldan ; [facility]
--- NOTE | 2020-02-09 13:23 | Coding Query ---
To promote full compliance with coding requirements relating to patient care, provider participation is requested in all cases of miter operator uncertainty. Please assist us with the question(s) below: Coding Question(s): The diagnosis below was documented in the H&P ADDENDUM, then subsequently fell off all further documentation. Please indicate if it is still a possible diagnosis or ruled out. Physician's Response(s): HEMORRHAGIC SHOCK ( ) Diagnosed and POA ( ) Diagnosed and not POA ( X ) Ruled out ( ) Other (please specify) ) MTDD
== END 2020-02-04 16:55 | DRG 813 ==
LOC: ED 10:18 → 2S 17:25 → SUATTDRO 17:25 → 2S 20:29 → 2W 01-25 12:29

== ENCOUNTER 2020-02-12 09:54 | Inpatient (IN) ==
[~2020-02-12 09:54] MED LIST changes: -ACET-1175 PO; -ADVIN50/60 INH; -ASPI1CHW12 PO; -BUSP-8 PO; -CARB1DRO2 OPB; -CMD/3 PO; -CYM60 PO; -DILT-213 PO; -DLCS PR; -DOCU-94 PO; -FERR1TAB62 PO; -FEXO1TAB49 PO; -FNTTP50 TD; -FURO-85 PO; -FURO40TA3 PO; -GLUC1CAP33 PO; -GUAI100S75 PO; -IPRASOL4 INH; -LEVO75TA PO; -LYR50 PO; -MAGN1TAB19 PO; -METO25TA56 PO; -MICO1POW TOP; -MOMLX PO; -MONT1TAB3 PO; -PANT40TA PO; -POLY1POW2 PO; -POTA20TA11 PO; -PRED20TA PO; +RAPID SEQUENCE INDUCTION BAG ONE; -SENN1TAB80 PO; -SODIENE PR; -SUCR1TAB29 PO; -TRAM-10 PO; -WARF3TAB6 PO; -ZOLP5TAB PO
[2020-02-12] MEDS ORDERED: SODIUM CHLORIDE 0.9% 500 ML IV SCH (10:00)
[2020-02-12] MEDS ORDERED: SODIUM CHLORIDE 0.9% 1000ML 1,000 ML IV SCH (10:00)
[2020-02-12] MEDS ORDERED: VANCOMYCIN HCL 2,500 MG in SODIUM CHLORIDE 0.9% 500 ML IV ONE (10:11)
[2020-02-12] MEDS ORDERED: VANCOMYCIN CONSULT ACTIVE PRN (10:11)
[2020-02-12] MEDS ORDERED: SODIUM CHLORIDE 0.9% IV ONE (10:11)
[2020-02-12] MEDS ORDERED: CEFEPIME 2,000 MG/20 ML VIAL IV STA (10:11)
[2020-02-12] MEDS ORDERED: VANCOMYCIN HCL IV ONE (10:11)
[2020-02-12 10:20] LABS: iSTAT Creatinine 1.8 mg/dl (0.6-1.3); iSTAT Hemoglobin 9.2 g/dl (12.0-16.0); iSTAT Ionized Calcium 1.26 mmol/l (1.12-1.32); iSTAT Potassium 3.5 mmol/L (3.3-5.0)
[2020-02-12 10:26] LABS: Basophils # (auto) 0.01 K/uL (0-0.2); Basophils % (auto) 0.1 %; Eosinophils # (auto) 0.19 K/uL (0-0.5); Eosinophils % (auto) 2.4 %; Hematocrit (blood only) 30.3 % (37-47); Hemoglobin 9.6 g/dL (12.0-16.0); Immature Granulocytes # (auto) 0.02 K/uL (0.00-0.02); Immature Granulocytes % (auto) 0.2 %; Lymphocytes # (auto) 1.81 K/uL (1.2-3.4); Lymphocytes % (auto) 22.5 %; Mean Corpuscular Hemoglobin 33.1 pg (25-34); Mean Corpuscular Hgb Conc 31.7 g/dL (32-36); Mean Corpuscular Volume 104.5 fL (80-100); Mean Platelet Volume 10.1 fL (7.4-10.4); Monocytes % (auto) 14.9 %; Neutrophils # (auto) 4.82 K/uL (1.4-6.5); Neutrophils % (auto) 59.9 %; Platelet Count 323 K/uL (130-400); RDW Coefficient of Variation 16.8 % (11.5-14.5); RDW Standard Deviation 63.8 fL (36.4-46.3); White Blood Count 8.05 K/uL (4.8-10.8)
[2020-02-12 10:35] LABS: INR 3.3 (0.9-1.1); Prothrombin Time 32.2 Seconds (9.0-12.0)
[2020-02-12 10:39] LABS: Appearance Urine Clear (Clear); Bacteria Urine Automated Negative (Negative); Bilirubin Urine Negative (Negative); Blood Urine Negative (Negative); Color Urine Yellow; Epithelial Cell Urine Auto 0-5 /lpf (0-5); Glucose Urine UA Negative (Negative); Ketones Urine Negative (Negative); Leukocyte Esterase Urine 1+ (Negative); Nitrite Urine Negative (Negative); Protein Urine Negative (Negative); RBC Urine Automated 0-4 /hpf (0-4); Specific Gravity Urine 1.013 (1.000-1.030); Urobilinogen Urine Negative (Negative); WBC Urine Automated >30 /hpf (0-5); pH Urine 5.5 (4.5-7.5)
[2020-02-12] MEDS ORDERED: methylPREDNISolone 125 MG/2 ML VIAL IV STA (10:41)
[2020-02-12] MEDS ORDERED: ALBUTEROL HFA 8 GM INHALER INH ONE (10:41)
--- NOTE | 2020-02-12 10:43 | XRay Report ---
XR chest 1V portable HISTORY: 79 years-old Female weakness acute weakness with sepsis COMPARISON: Chest radiograph 01/22/2020 TECHNIQUE: Portable AP view of the chest FINDINGS: Cardiac silhouette is enlarged. Widening of the mediastinum is again seen. Calcified plaque the thora cic aortic arch. There is no pneumothorax, large pleural effusion or overt pulmonary edema. Mild righ t diaphragmatic elevation. Mild chronic interstitial coarsening. There are a few linear bibasilar den sities suggestive of probable scarring/atelectasis. Severe osteoarthritis of the bilateral glenohumer al joint with chronic remodeling changes. IMPRESSION: Cardiomegaly without acute process. ACT 112: Negative or not required by law. The above report was generated using voice recognition software. It may contain grammatical, syntax o r spelling errors. Electronically signed by: Roberto Potts M.D. 02/12/2020 10:41 AM
[2020-02-12 10:44] LABS: Alanine Aminotransferase 11 U/L (12-78); Albumin Level 2.1 gm/dl (3.4-5.0); Aspartate Aminotransferase 13 U/L (15-37); BUN Creatinine Ratio 37.5 (10-20); Blood Urea Nitrogen 65 mg/dl (7-18); Calcium 8.9 mg/dl (8.5-10.1); Carbon Dioxide 30 mmol/L (21-32); Chloride 99 mmol/L (98-107); Est GFR (African American) 32.2; Est GFR (Non-African American) 27.8; Glucose 152 mg/dl (70-99); Magnesium 2.3 mg/dl (1.8-2.4); Potassium 3.4 mmol/L (3.5-5.1); Sodium 134 mmol/L (136-145)
--- NOTE | 2020-02-12 10:49 | Emergency Department Note ---
Impression & Plan AMS (altered mental status), Respiratory failure with hypoxia, Anemia ED Provider Note NAME: RESHMA RAGSDALE AGE: 79 SEX: F ARRIVES VIA: Ambulance INFORMANT: EMS, wound center ED PROVIDER(S): Ramon Rocha MD CHIEF COMPLAINT: Altered mental status PLAN: Disposition: Admitted Condition: Guarded MEDICAL DECISION MAKING: Patient presented to the ER by EMS due to altered mental status and hypoxia. She was brought in to B1 and full respiratory precautions were in place. The patient was borderline bradycardic and hypotensive. She received normal saline and a nonrebreather mask for oxygen administration. Record review indicated that she was DNR/DNI. Blood work, cultures, Hu catheter, EKG and chest x-ray were performed. The patient's mental status improved and her oxygen saturation increased to 100%. She was transitioned to an oxygen mask. She did have diminished breath sounds and does have a history of COPD. An albuterol MDI, 6 puffs was ordered. Solu-Medrol was also given. She was empirically treated with cefepime and vancomycin due to concerns for sepsis. The patient's l aboratory testing revealed a mild anemia on CBC. Her chemistry panel was unremarkable. BMP top normal of reference range. Troponin negative. Urinalysis did show white cells but no nitrite. Arterial blood gas was performed and showed resolution of the hypoxia. The patient did have a slight elevation of her CO2 but not significantly enough to explain the altered mental status. Her mental status continued to improve as the hypoxia was resolved. She was becoming more alert. Bio fire respiratory panel was sent. Testing for novel coronavirus was sent. I did contact the [facility] service and discussed the case. The patient will be admitted by Dr. Paige for further management. Triage Nursing notes reviewed and agree them. [Additional history obtained from] EMS [Prior medical records reviewed] patient was recently in the hospital for a large hematoma on the left lower leg. Wound VAC was placed. Vital Signs: reviewed and remarkable for hypoxia and hypotension. Differential diagnosis: Infection, hypoglycemia, electrolyte abnormalities, overdose, toxicologic, cardiac sources, intracerebral event, neurologic, trauma, as well as other pathologies. ER treatment provided: Saline hydration Supplemental oxygen Cefepime IV Vancomycin IV Albuterol MDI Solu-Medrol IV Diagnostics interpreted by me: ECG: Rate: 53 Rhythm: A. fib with slow ventricular response Manson: Normal QRS: Normal ST segements: Nonspecific ST. No ST elevation or depression. Other: No PVCs Cardiac Monitoring: Cardiac monitoring ordered by me: The patient was placed on continuous cardiac monitoring and observed. It revealed a slow A. fib at 58 beats per minute without ectopy or evidence of dysrhythmia. Laboratory studies: [See below] as noted above Imaging studies: Chest x-ray. Findings: A chest x-ray was performed and revealed no pneumothorax, effusion, infiltrate, pulmonary edema, free air under the diaphragm, or wide mediastinum. Impression: No acute disease. Consultation(s): [facility] service: Discussed with Kristan Gonzalez PA-C. Will be admitted by Dr. Paige. HPI: 79-year-old female arrives from the wound center by EMS due to altered mental status and hypoxia. The patient presented to the wound center and was noted to be altered. She was hypoxic and hypotensive. EMS was summoned. The patient was given supplemental oxygen. An IV was established and fluids were started. The patient was transported to ER for further management. She recently was in the hospital due to a hematoma on her left leg. This did require drainage and a wound VAC was placed. The history is limited secondary to the patient's altered mental status. ROS: Unobtainable secondary to altered mental status. PAST MEDICAL HISTORY:[See Below] COPD, hypoxic respiratory failure, anemia PAST SURGICAL HISTORY:[See Below] FAMILY HISTORY:[See Below] SOCIAL HISTORY:[See Below] resides at [facility]. HOME MEDICATIONS:[See Below] ALLERGIES:[See Below] VITALS:[See Below] PHYSICAL EXAMINATION: GENERAL: Very lethargic, ill appearing HENT: Normocephalic, atraumatic. Oropharynx unremarkable. EYES: Pale conjunctiva. Sclera non-icteric. NECK: Inspection normal. Non-tender. Supple. No nuchal rigidity. FROM. No masses. RESPIRATORY: Clear to auscultation. No wheezes. No rales. Normal respiratory effort. CARDIAC: Irregular rhythm, bradycardic rate.. No murmurs. No rubs. Extremities cool and minimally perfused. Pulses diminished but equal. No JVD. GI: Soft, non-distended. No tenderness to palpation. No rebound or guarding. No masses. RECTAL: Deferred. MUSCULOSKELETAL: Atraumatic. Chest examination reveals no tenderness. The back is symmetrical on inspection without obvious abnormality. There is a wound VAC noted on the left lower extremity. Surrounding mild erythema and warmth. Chronic venous discoloration present bilaterally. NEURO: Altered sensorium. Not following commands. SKIN: No rash or jaundice noted. ED COURSE: [Critical Care:] I have personally spent greater than 55 minutes of critical care time in the direct management of this patient. This includes bedside care, interpretation of diagnostic studies, and testing, discussion with consultants, and other required patient management activities. This 55minutes is in excess of all separately billable procedures. Ramon Rocha MD Past Med/Surg History Social History Preferred Language: Cypriot Communication Ability: Effective Hair Cutter Required: No Beliefs That Will Affect Care: None marital status: / Current Living Situation: [facility] Current Living Situation Comment: [facility] Feels Safe at Home: Yes Smoking Status: Former smoker Second Hand Exposure: No ; Hx Alcohol Use: No Hx Substance Use: No Allergies Allergies Allergy/AdvReac Type Severity Reaction Status Date / Time meperidine [From Demerol] Allergy Unknown ON CONNIE Verified 01/22/20 11:35 HILL LIST morphine AdvReac Intermediate vomiting Verified 01/22/20 11:35 oxycodone AdvReac Intermediate vomit blood Verified 01/22/20 11:35 propoxyphene AdvReac Intermediate abd vomit Verified 01/22/20 11:35 blood tramadol AdvReac Intermediate vomiting Verified 12/25/19 23:09 Bactrim AdvReac Mild GI SYMPTOMS Verified 03/06/18 21:06 codeine AdvReac Mild vomiting Verified 01/22/20 11:35 olmesartan AdvReac Mild GI SYMPTOMS Verified 12/25/19 23:09 Sulfa (Sulfonamide AdvReac Mild GI SYMPTOMS Verified 01/22/20 11:35 Antibiotics) sulfamethoxazole AdvReac Mild GI SYMPTOMS Verified 01/22/20 11:35 trimethoprim AdvReac Mild GI SYMPTOMS Verified 01/22/20 11:35 carisoprodol AdvReac Unknown GI SYMPTOMS Verified 12/10/19 14:37 Home Meds Home Medications Medication Instructions Recorded Confirmed acetaminophen [Tylenol] 650 mg PO Q4 PRN 11/01/18 02/12/20 allopurinol 200 mg PO QAM 11/01/18 02/12/20 docusate sodium [Colace] 100 mg PO BID 11/01/18 02/12/20 duloxetine 60 mg PO QAM 11/01/18 02/12/20 levothyroxine 75 mcg PO DAILYBB 11/01/18 02/12/20 meclizine 25 mg PO TID PRN 11/01/18 02/12/20 melatonin 10 mg PO HS 11/01/18 02/12/20 montelukast 10 mg PO PM 11/01/18 02/12/20 pregabalin [Lyrica] 50 mg PO TIDM 11/01/18 02/12/20 sucralfate 1 g PO AMPM 11/01/18 02/12/20 simethicone [Gas Relief 180 mg PO DAILY PRN 12/27/18 02/12/20 (simethicone)] Incruse Ellipta 1 inh INHALATION QAM 01/11/19 02/12/20 sennosides [senna] 8.6 mg PO BID 01/11/19 02/12/20 cholecalciferol (vitamin D3) 25 1,000 units PO DAILY 06/11/19 02/12/20 mcg (1,000 unit) capsule digoxin 125 mcg (0.125 mg) tablet 125 mcg PO MOWEFR 06/11/19 02/12/20 spironolactone 25 mg tablet 25 mg PO QAM tab 06/11/19 02/12/20 trazodone 50 mg tablet 25 mg PO DAILY 06/11/19 02/12/20 Desenex 1 applic TOPICAL TID 07/03/19 02/12/20 betamethasone dipropionate 1 applic TOPICAL BID PRN 07/03/19 02/12/20 buspirone 10 mg PO BID 07/09/19 02/12/20 metoprolol succinate [Toprol XL] 100 mg PO BID 07/09/19 02/12/20 Cepacol Sore Throat (nataliia-men) 1 huan PO .Q2HRS PRN PRN 12/25/19 02/12/20 famotidine [Pepcid] 20 mg PO BID 12/25/19 02/12/20 fentanyl [Duragesic] 25 mcg TOPICAL CQ72HR 12/25/19 02/12/20 fluticasone propion-salmeterol 1 ea INHALATION BID 12/25/19 02/12/20 [Advair Diskus] furosemide [Lasix] 80 mg PO DAILY 12/25/19 02/12/20 guaifenesin [Mucinex] 600 mg PO BID 12/25/19 02/12/20 guaifenesin [Siltussin SA] 200 mg PO Q4 PRN 12/25/19 02/12/20 metolazone 2.5 mg PO WESA 12/25/19 02/12/20 trazodone 50 mg PO HS 12/25/19 02/12/20 Refresh Classic (PF) 2 drp OPB TID 01/22/20 02/12/20 glucosamine-chondroitin 1 tab PO TID 01/22/20 02/12/20 levalbuterol HCl [Xopenex] 0.63 mg INHALATION Q4H PRN 01/22/20 02/12/20 warfarin 1 mg PO UD 01/22/20 02/12/20 Previous Rx's Medication Instructions Recorded polyethylene glycol 3350 [Miralax] 17 gm PO DAILY PRN #30 ea 02/04/20 Results & Data (ED) Vital Signs Vital Signs - 24 hr 02/12/20 09:54 Temperature 36.8 C Temperature Source Rectal Pulse Rate 55 L Respiratory Rate 23 Respiratory Effort / Characteristics Short of Breath Blood Pressure 84/66 L Blood Pressure Mean 72 Blood Pressure Position Lying Pulse Oximetry 98 Oxygen Delivery Method Non-rebreather Sepsis Recent Fever Within 48 Hours No Sepsis New/Unexplained Change in Mental Status Yes Sepsis Action Taken by Nursing No Action Required Laboratory Data Result diagrams: 02/12/20 10:05 02/12/20 10:05 Lab Results 02/12/20 02/12/20 02/12/20 Range/Units 10:05 10:05 10:05 WBC 8.05 (4.8-10.8) K/uL RBC 2.90 L (4.2-5.4) M/uL Hgb 9.6 L (12.0-16.0) g/dL POC Hgb (12.0-16.0) g/dl Hct 30.3 L (37-47) % POC Hct (37-47) % MCV 104.5 H (80-100) fL MCH 33.1 (25-34) pg MCHC 31.7 L (32-36) g/dL RDW Std Deviation 63.8 H (36.4-46.3) fL RDW Coeff of Kenneth 16.8 H (11.5-14.5) % Plt Count 323 (130-400) K/uL MPV 10.1 (7.4-10.4) fL Immature Gran % (Auto) 0.2 % Neut % (Auto) 59.9 % Lymph % (Auto) 22.5 % [place] % (Auto) 14.9 % Eos % (Auto) 2.4 % Baso % (Auto) 0.1 % Immature Gran # (Auto) 0.02 (0.00-0.02) K/uL Neut # (Auto) 4.82 (1.4-6.5) K/uL Lymph # (Auto) 1.81 (1.2-3.4) K/uL [place] # (Auto) 1.20 H (0.11-0.59) K/uL Eos # (Auto) 0.19 (0-0.5) K/uL Baso # (Auto) 0.01 (0-0.2) K/uL PT 32.2 H (9.0-12.0) Seconds INR 3.3 H (0.9-1.1) POC Sodium (135-144) mmol/L Sodium 134 L (136-145) mmol/L POC Potassium (3.3-5.0) mmol/L Potassium 3.4 L (3.5-5.1) mmol/L POC Chloride (101-112) mmol/L Chloride 99 (98-107) mmol/L Carbon Dioxide 30 (21-32) mmol/L POC Total CO2 (24-31) mmol/L Anion Gap 5.0 (3-11) POC Anion Gap (16-25) mmol/L POC BUN (7-18) mg/dl BUN 65 H (7-18) mg/dl Creatinine 1.73 H (0.6-1.2) mg/dl POC Creatinine (0.6-1.3) mg/dl Est Cr Clr Drug Dosing Not Reportable Est GFR ( Amer) 32.2 Est GFR (Non-Af Amer) 27.8 BUN/Creatinine Ratio 37.5 H (10-20) Glucose 152 H (70-99) mg/dl POC Glucose (other) (70-99) mg/dl Lactate (0.4-2.0) mmol/L Calcium 8.9 (8.5-10.1) mg/dl POC Ioniz Calcium Caroline (1.12-1.32) mmol/l Magnesium 2.3 (1.8-2.4) mg/dl Total Bilirubin 0.3 (0.2-1) mg/dl AST 13 L (15-37) U/L ALT 11 L (12-78) U/L Alkaline Phosphatase 94 (45-117) U/L Troponin I < 0.015 (0-0.045) ng/ml NT-Pro-B Natriuret Pep 1752 (0-1800) pg/ml Total Protein 6.1 L (6.4-8.2) gm/dl Albumin 2.1 L (3.4-5.0) gm/dl Globulin 4.0 (2.5-4.0) gm/dl Albumin/Globulin Ratio 0.5 L (0.9-2) TSH 4.690 H (0.300-4.500) uIu/ml Urine Color Urine Appearance (Clear) Urine pH (4.5-7.5) Ur Specific Cornelius (1.000-1.030) Urine Protein (Negative) Urine Glucose (UA) (Negative) Urine Ketones (Negative) Urine Blood (Negative) Urine Nitrite (Negative) Urine Bilirubin (Negative) Urine Urobilinogen (Negative) Ur Leukocyte Esterase (Negative) Urine WBC (Auto) (0-5) /hpf Urine RBC (Auto) (0-4) /hpf U Hyaline Cast (Auto) (0-5) /lpf U Epithel Cells (Auto) (0-5) /lpf Urine Bacteria (Auto) (Negative) 02/12/20 02/12/20 02/12/20 Range/Units 10:05 10:07 10:30 WBC (4.8-10.8) K/uL RBC (4.2-5.4) M/uL Hgb (12.0-16.0) g/dL POC Hgb 9.2 L (12.0-16.0) g/dl Hct (37-47) % POC Hct 27 L (37-47) % MCV (80-100) fL MCH (25-34) pg MCHC (32-36) g/dL RDW Std Deviation (36.4-46.3) fL RDW Coeff of Kenneth (11.5-14.5) % Plt Count (130-400) K/uL MPV (7.4-10.4) fL Immature Gran % (Auto) % Neut % (Auto) % Lymph % (Auto) % [place] % (Auto) % Eos % (Auto) % Baso % (Auto) % Immature Gran # (Auto) (0.00-0.02) K/uL Neut # (Auto) (1.4-6.5) K/uL Lymph # (Auto) (1.2-3.4) K/uL [place] # (Auto) (0.11-0.59) K/uL Eos # (Auto) (0-0.5) K/uL Baso # (Auto) (0-0.2) K/uL PT (9.0-12.0) Seconds INR (0.9-1.1) POC Sodium 135 (135-144) mmol/L Sodium (136-145) mmol/L POC Potassium 3.5 (3.3-5.0) mmol/L Potassium (3.5-5.1) mmol/L POC Chloride 96 L (101-112) mmol/L Chloride (98-107) mmol/L Carbon Dioxide (21-32) mmol/L POC Total CO2 30 (24-31) mmol/L Anion Gap (3-11) POC Anion Gap 14.0 L (16-25) mmol/L POC BUN 66 H (7-18) mg/dl BUN (7-18) mg/dl Creatinine (0.6-1.2) mg/dl POC Creatinine 1.8 H (0.6-1.3) mg/dl Est Cr Clr Drug Dosing Est GFR ( Amer) Est GFR (Non-Af Amer) BUN/Creatinine Ratio (10-20) Glucose (70-99) mg/dl POC Glucose (other) 147 H (70-99) mg/dl Lactate 1.5 (0.4-2.0) mmol/L Calcium (8.5-10.1) mg/dl POC Ioniz Calcium Caroline 1.26 (1.12-1.32) mmol/l Magnesium (1.8-2.4) mg/dl Total Bilirubin (0.2-1) mg/dl AST (15-37) U/L ALT (12-78) U/L Alkaline Phosphatase (45-117) U/L Troponin I (0-0.045) ng/ml NT-Pro-B Natriuret Pep (0-1800) pg/ml Total Protein (6.4-8.2) gm/dl Albumin (3.4-5.0) gm/dl Globulin (2.5-4.0) gm/dl Albumin/Globulin Ratio (0.9-2) TSH (0.300-4.500) uIu/ml Urine Color Yellow Urine Appearance Clear (Clear) Urine pH 5.5 (4.5-7.5) Ur Specific Cornelius 1.013 (1.000-1.030) Urine Protein Negative (Negative) Urine Glucose (UA) Negative (Negative) Urine Ketones Negative (Negative) Urine Blood Negative (Negative) Urine Nitrite Negative (Negative) Urine Bilirubin Negative (Negative) Urine Urobilinogen Negative (Negative) Ur Leukocyte Esterase 1+ H (Negative) Urine WBC (Auto) >30 H (0-5) /hpf Urine RBC (Auto) 0-4 (0-4) /hpf U Hyaline Cast (Auto) 5-10 H (0-5) /lpf U Epithel Cells (Auto) 0-5 (0-5) /lpf Urine Bacteria (Auto) Negative (Negative) Administered Medications Sodium Chloride (Nss 1000ml) 1,000 mls @ 125 mls/hr IV .Q8H [facility] Stop: 02/12/20 17:59 Last Admin: 02/12/20 10:31 Dose: 125 mls/hr Documented by: [id number] Vancomycin HCl 2,500 mg/ (Sodium Chloride) 550 mls @ 200 mls/hr IV ONE ONE Stop: 02/12/20 12:55 Last Admin: 02/12/20 10:34 Dose: 200 mls/hr Documented by: [id number] Discontinued Medications Sodium Chloride (Nss) 500 mls @ 999 mls/hr IV .Q31M [facility] Stop: 02/12/20 10:30 Last Admin: 02/12/20 10:08 Dose: 999 mls/hr Documented by: [id number] Cefepime HCl (Maxipime) 2,000 mg in 20 mls @ 5 mls/min IV NOW STA; Protocol Stop: 02/12/20 10:14 Last Admin: 02/12/20 10:32 Dose: 5 mls/min Documented by: [id number] Miscellaneous () Confirm Administered Dose 1 ea .ROUTE .STK-MED ONE Stop: 02/12/20 09:55 Last Admin: 02/12/20 10:44 Dose: Not Given Documented by: [id number] Discharge Plan Visit Data Stated Complaint: lethargic ED Provider: Ramon Rocha Discharge Problem: AMS (altered mental status), Respiratory failure with hypoxia, Anemia Prescriptions Prescriptions: No Action digoxin 125 mcg tablet 125 mcg PO MOWEFR RF: 0 spironolactone 25 mg tablet 25 mg PO QAM RF: 0 cholecalciferol (vitamin D3) 1,000 unit capsule 1,000 units PO DAILY RF: 0 sucralfate 1 gram Tablet 1 g PO AMPM RF: 0 allopurinol 100 mg Tablet 200 mg PO QAM RF: 0 levothyroxine 75 mcg Tablet 75 mcg PO DAILYBB RF: 0 meclizine 25 mg Tablet 25 mg PO TID PRN (Reason: Dizziness) RF: 0 docusate sodium [Colace] 100 mg Capsule 100 mg PO BID RF: 0 montelukast 10 mg Tablet 10 mg PO PM RF: 0 duloxetine 60 mg Capsule,Delayed Release(Dr/Ec) 60 mg PO QAM RF: 0 pregabalin [Lyrica] 50 mg Capsule 50 mg PO TIDM RF: 0 acetaminophen [Tylenol] 325 mg Capsule 650 mg PO Q4 PRN (Reason: Fever Or Pain) RF: 0 melatonin 10 mg Tablet 10 mg PO HS RF: 0 trazodone 50 mg tablet 25 mg PO DAILY RF: 0 simethicone [Gas Relief (simethicone)] 180 mg Capsule 180 mg PO DAILY PRN (Reason: Gastrointestinal Spasms Or Cramping) RF: 0 sennosides [senna] 8.6 mg Tablet 8.6 mg PO BID RF: 0 Incruse Ellipta 62.5 mcg/actuation Blister With Device 1 inh INHALATION QAM RF: 0 betamethasone dipropionate 0.05 % Ointment 1 applic TOPICAL BID PRN (Reason: Rash) RF: 0 Desenex 2 % Powder 1 applic TOPICAL TID RF: 0 buspirone 10 mg Tablet 10 mg PO BID RF: 0 metoprolol succinate [Toprol XL] 100 mg Tablet Extended Release 24 Hr 100 mg PO BID RF: 0 metolazone 2.5 mg Tablet 2.5 mg PO WESA RF: 0 trazodone 50 mg tablet 50 mg PO HS RF: 0 guaifenesin [Siltussin SA] 100 mg/5 mL Liquid 200 mg PO Q4 PRN (Reason: Cough) RF: 0 famotidine [Pepcid] 20 mg tablet 20 mg PO BID RF: 0 furosemide [Lasix] 80 mg tablet 80 mg PO DAILY RF: 0 fluticasone propion-salmeterol [Advair Diskus] 500-50 mcg/dose blister with device 1 ea INHALATION BID RF: 0 fentanyl [Duragesic] 25 mcg/hr patch 72 hour 25 mcg topical CQ72HR RF: 0 Cepacol Sore Throat (nataliia-men) 15-2.6 mg Lozenge 1 huan PO .Q2HRS PRN PRN (Reason: Sore Throat) RF: 0 guaifenesin [Mucinex] 600 mg Tablet Extended Release 12hr 600 mg PO BID RF: 0 levalbuterol HCl [Xopenex] 0.63 mg/3 mL Solution For Nebulization 0.63 mg INHALATION Q4H PRN (Reason: Wheezing) RF: 0 Refresh Classic (PF) 1.4-0.6 % dropperette 2 drp OPB TID RF: 0 glucosamine-chondroitin 250-200 mg Tablet 1 tab PO TID RF: 0 warfarin 1 mg Tablet 1 mg PO UD RF: 0 polyethylene glycol 3350 [Miralax] 17 gram powder in packet 17 gm PO DAILY PRN (Reason: constipation) Qty: 30 RF: 0
[2020-02-12 10:55] LABS: Albumin Globulin Ratio 0.5 (0.9-2); Alkaline Phosphatase 94 U/L (45-117); Bilirubin,Total 0.3 mg/dl (0.2-1); NT Pro B Type Natriuretic Pept 1752 pg/ml (0-1800); Total Protein 6.1 gm/dl (6.4-8.2); Troponin I < 0.015 ng/ml (0-0.045)
[2020-02-12 11:07] LABS: T4 Free Thyroxine 0.94 ng/dl (0.8-1.6)
[2020-02-12] MEDS ORDERED: SODIUM CHLORIDE 0.9% 1000ML 500 ML IV ONE ×2 (12:33→14:06)
[2020-02-12 12:46] LABS: Adenovirus PCR Not Detected (NotDetected); Bordetella parapertussis PCR Not Detected (NotDetected); Bordetella pertussis PCR Not Detected (NotDetected); Chlamydia pneumoniae PCR Not Detected (NotDetected); Coronavirus 229E PCR Not Detected (NotDetected); Coronavirus HKU1 PCR Not Detected (NotDetected); Coronavirus NL63 PCR Not Detected (NotDetected); Coronavirus OC43PCR Not Detected (NotDetected); Human Metapneumovirus PCR Not Detected (NotDetected); Influenza A PCR Not Detected (NotDetected); Influenza B PCR Not Detected (NotDetected); Mycoplasma pneumoniae PCR Not Detected (NotDetected); Parainfluenza Virus 1 PCR Not Detected (NotDetected); Parainfluenza Virus 2 PCR Not Detected (NotDetected); Parainfluenza Virus 3 PCR Not Detected (NotDetected); Parainfluenza Virus 4 PCR Not Detected (NotDetected); Respiratory Syncytial VirusPCR Not Detected (NotDetected); Rhinovirus/Enterovirus PCR Not Detected (NotDetected)
--- NOTE | 2020-02-12 13:18 | History & Physical Report ---
Date of Service February 12, 2020 Assessment & Plan (1) Hypotension: Severe hypotension with systolic blood pressures in the 70s and 80s in the field and in the ED. Sepsis was considered, but no definite source of infection. UA shows 1+ leukocyte esterase, WBC's, no bacteria. Normal WBC, lactate, procalcitonin make sepsis unlikely. Nevertheless, felt prudent to check cultures and start empiric antibiotic therapy. Received IV vancomycin and cefepime in ED- will continue empiric coverage for 48 hours pending culture results. History of pulmonary embolism, but acute PE unlikely with supratherapeutic INR. Patient appears to be dehydrated per physical assessment and laboratory studies. Suspect volume depletion due to diuretic therapy and inadequate oral fluid intake. Blood pressures improving in the ED with volume resuscitation; did not require pressor support. Presentation atypical for COVID-19 and no known contacts. Nevertheless, need to rule out COVID-19 given current circumstances. Nasopharyngeal PCR for SARS-CoV-2 was ordered, results pending. Hold diuretic therapy. Continue IV fluids. Hold propranolol. Continue metoprolol with hold parameters. (2) Bradycardia: Chronic atrial fibrillation, rate-controlled. Ventricular rate in the ED mostly in the 50s, but sometimes dipping down to 30s and 40s. Medications include metoprolol succinate, propranolol, digoxin. Need to clarify why patient is receiving 2 beta-blockers. Digoxin level 0.7. Hold digoxin and propranolol. Continue metoprolol succinate with hold parameters. (3) Respiratory failure with hypoxia: Chronic hypoxic respiratory failure on home O2 at 2 L/min. Chronic respiratory failure probably secondary to COPD +/- sleep apnea +/- obesity hypoventilation syndrome. Marked hypoxia with O2 saturations in the 70s in the field. Oxygenation improved with nonrebreather and transitioned to oxymask. ABG ? with nonrebreather demonstrated a PO2 of 372, PCO2 55, bicarb 31, pH of 7.36. Acute hypoxic respiratory failure superimposed on chronic hypoxic respiratory failure plus or minus probable chronic hypercapnic respiratory failure. No apparent pneumonia or CHF on chest x-ray. History of pulmonary embolism, but PE unlikely with supratherapeutic INR on warfarin. Ruling out COVID-19 as discussed above. Titrate supplemental O2 to maintain adequate oxygenation. (4) AMS (altered mental status): Very lethargic upon presentation to ED. Probable encephalopathy secondary to hypoxia/hypotension. Mental status improving in the ED. No focal findings on neurologic exam. (5) Diastolic CHF: History of left ventricular diastolic heart failure. No apparent CHF on admission chest x-ray and patient appears to be volume depleted. Hold diuretics. Follow cardiac status, weights, etc. (6) Atrial fibrillation: Chronic atrial fibrillation, rate controlled currently with metoprolol, propranolol, digoxin. Ventricular rate in ED mostly in the 50s, but sometimes dipping down to the 30s and 40s. Digoxin level 0.7. Hold digoxin and propranolol. Continue metoprolol succinate with hold parameters. Continue anticoagulation with warfarin. (7) Hypertension: History of hypertension. Currently prescribed metoprolol succinate, propranolol, diuretics. Hold diuretics because of acute kidney injury and apparent volume depletion. Hold propranolol due to hypotension and bradycardia. Continue metoprolol with hold parameters. Follow and titrate therapy. (8) COPD (chronic obstructive pulmonary disease): Bronchodilators as needed. Titrate supplemental oxygen. (9) GERD (gastroesophageal reflux disease): Continue famotidine. (10) Acute kidney injury: Serum creatinine 1.73 compared to recent baseline of 1.2-1.4. BUN elevated as well. Acute kidney injury superimposed on CKD stage III. Suspected acute kidney injury secondary to dehydration/volume depletion. IV fluids. Follow. (11) DM type 2 (diabetes mellitus, type 2): History of diabetes mellitus type 2. Currently diet controlled. Random blood sugar in ED 152. Hemoglobin A1c was 5.9 on 07/03/2019. Recheck A1c if not recently done at [facility]. (12) Hypothyroidism: TSH slightly elevated (4.69) in setting of acute illness. TSH was normal in December. Continue current dose of levothyroxine. (13) Hyperuricemia: Continue allopurinol. (14) Anemia: Hemoglobin 9.6 compared to 8.6 on 02/03/2020. Hemoglobin was 12.7 on 01/22/2020 when she presented with significant bleeding from traumatic hematoma of left lower extremity. Acute blood loss anemia secondary to recent blood loss. Iron replacement. Follow H&H. (15) Open wound of left lower leg: Wound left lower extremity secondary to traumatic hematoma a few weeks ago. No overt signs of wound infection. Wound Care Team consulted to continue management. (16) DVT prophylaxis: On chronic warfarin therapy for atrial fibrillation and history of pulmonary embolism. Continue warfarin. Ambulate as able. (17) Do not resuscitate status: DNR status discussed/confirmed with patient and sister. (18) Discharge planning issues: Anticipated return to [facility] when medically stable. Sister given update by phone. History of Present Illness Chief Complaint: decreased responsiveness Primary Care Provider: [facility] 79 YO female followed by Dr. Lmeus and Purvi Tellez PA-C at [facility]. History of diastolic CHF, chronic AF, chronic hypoxic respiratory failure, and other problems. Hospitalized at [facility] from 01/22/20 to 02/04/20 for management of traumatic hematoma LLE and other problems. Followed by Wound Care and wound vac being utilized. Had follow-up appointment at [facility] today. Upon arrival to the wound clinic patient noted to be lethargic, hypotensive, and hypoxic. Systolic BP's were in the 70's - 80's. O2 sats at low as 70's. EMS summoned. Received bolus of IV fluids and O2. Transferred to ED. Persistent hypotension in ED, improved with repeat boluses of NSS. Oxygenation improved on non-rebreather mask and pt transitioned to oxymask. Sepsis considered and empiric IV antibiotics administered. Mentation improved with above measures. Patient was more conversant at the time of my assessment, but still somewhat confused. She denied any fever, chills, sweats. No significant cough. Denied chest pain. Denied nausea, vomiting, diarrhea. Spoke with sister by phone. She reports that patient hasn't seemed like herself the past few days, but no apparent new specific symptoms. No known COVID-19 exposure. No travel. Allergies Allergy/AdvReac Type Severity Reaction Status Date / Time meperidine [From Demerol] Allergy Unknown [facility] Verified 02/12/20 11:18 [place] LIST sulfite Allergy On [facility] Unverified 02/12/20 11:18 Hill's list morphine AdvReac Intermediate vomiting Verified 02/12/20 11:18 oxycodone AdvReac Intermediate vomit blood Verified 02/12/20 11:18 propoxyphene AdvReac Intermediate abd vomit Verified 02/12/20 11:18 blood tramadol AdvReac Intermediate vomiting Verified 12/25/19 23:09 Bactrim AdvReac Mild GI SYMPTOMS Verified 03/06/18 21:06 codeine AdvReac Mild vomiting Verified 02/12/20 11:18 olmesartan AdvReac Mild GI SYMPTOMS Verified 12/25/19 23:09 Sulfa (Sulfonamide AdvReac Mild GI SYMPTOMS Verified 01/22/20 11:35 Antibiotics) sulfamethoxazole AdvReac Mild GI SYMPTOMS Verified 01/22/20 11:35 trimethoprim AdvReac Mild GI SYMPTOMS Verified 01/22/20 11:35 carisoprodol AdvReac Unknown GI SYMPTOMS Verified 12/10/19 14:37 Home Medications Home Medications Medication Instructions Recorded Confirmed Type acetaminophen [Tylenol] 650 mg PO Q4H PRN MDD 3,000 mg 11/01/18 02/12/20 History allopurinol [Zyloprim] 200 mg PO QAM 11/01/18 02/12/20 History docusate sodium [Colace] 100 mg PO BID 11/01/18 02/12/20 History duloxetine [Cymbalta] 60 mg PO QAM 11/01/18 02/12/20 History levothyroxine [Synthroid] 75 mcg PO DAILYBB 11/01/18 02/12/20 History meclizine [Dramamine Less Drowsy] 25 mg PO TID PRN 11/01/18 02/12/20 History melatonin 10 mg PO HS 11/01/18 02/12/20 History montelukast [Singulair] 10 mg PO QPM 11/01/18 02/12/20 History pregabalin [Lyrica] 50 mg PO TID 11/01/18 02/12/20 History sucralfate [Carafate] 1 g PO AMPM 11/01/18 02/12/20 History simethicone [Gas Relief 180 mg PO DAILY PRN 12/27/18 02/12/20 History (simethicone)] Incruse Ellipta 1 inh INHALATION QAM 01/11/19 02/12/20 History sennosides [senna] 8.6 mg PO BID 01/11/19 02/12/20 History cholecalciferol (vitamin D3) 25 1,000 units PO QAM 06/11/19 02/12/20 History mcg (1,000 unit) capsule digoxin 125 mcg (0.125 mg) tablet 125 mcg PO MOWEFR 06/11/19 02/12/20 History spironolactone 25 mg tablet 25 mg PO QAM tab 06/11/19 02/12/20 History trazodone 50 mg tablet 25 mg PO QAM 06/11/19 02/12/20 History buspirone 10 mg PO BID 07/09/19 02/12/20 History metoprolol succinate [Toprol XL] 100 mg PO BID 07/09/19 02/12/20 History Cepacol Sore Throat (nataliia-men) 1 huan PO Q2H PRN 12/25/19 02/12/20 History famotidine [Pepcid] 20 mg PO BID 12/25/19 02/12/20 History fentanyl [Duragesic] 25 mcg TOPICAL [id number] 12/25/19 02/12/20 History fluticasone propion-salmeterol 1 ea INHALATION BID 12/25/19 02/12/20 History [Advair Diskus] furosemide [Lasix] 80 mg PO QAM 12/25/19 02/12/20 History guaifenesin [Mucinex] 600 mg PO BID 12/25/19 02/12/20 History guaifenesin [Siltussin SA] 200 mg PO Q4H PRN 12/25/19 02/12/20 History metolazone 2.5 mg PO WESA 12/25/19 02/12/20 History trazodone 50 mg PO HS 12/25/19 02/12/20 History Refresh Classic (PF) 2 drp OPB TID 01/22/20 02/12/20 History glucosamine-chondroitin 1 tab PO TID 01/22/20 02/12/20 History levalbuterol HCl [Xopenex] 0.63 mg INHALATION Q4H PRN 01/22/20 02/12/20 History warfarin [Coumadin] 2 mg PO MOWEFR 01/22/20 02/12/20 History acetaminophen [Tylenol Extra 1,000 mg PO Q8H PRN 02/12/20 02/12/20 History Strength] betamethasone dipropionate 1 applic TOPICAL BID PRN 02/12/20 02/12/20 History bisacodyl [Dulcolax (bisacodyl)] 10 mg ME DAILY PRN 02/12/20 02/12/20 History magnesium hydroxide [Milk of 30 ml PO DAILY PRN 02/12/20 02/12/20 History Magnesia] miconazole nitrate [Micro-Guard] 1 applic TOPICAL TID 02/12/20 02/12/20 History ondansetron HCl [Zofran] 8 mg PO Q8H PRN 02/12/20 02/12/20 History oxycodone [Roxicodone] 10 mg PO MOWEFR 02/12/20 02/12/20 History propranolol 10 mg PO TID 02/12/20 02/12/20 History sodium phosphates [Enema] 118 ml ME DAILY PRN 02/12/20 02/12/20 History tramadol [Ultram] 50 mg PO Q6H PRN MDD 300 mg 02/12/20 02/12/20 History warfarin [Coumadin] 1 mg PO SUTUTHSA 02/12/20 02/12/20 History wffh-yeh-oupf-C-Zn-Cu-tos 10 g PO BID 02/12/20 02/12/20 History [ArgiMent AT] Past Med/Surg History Medical History Acute kidney injury superimposed on CKD Anxiety (Chronic) Arthritis (Chronic) Asthma (Chronic) Atrial fibrillation (Chronic) Chronic back pain (Chronic) Chronic gastritis (Chronic) Chronic pain (Chronic) Chronic respiratory failure (Acute) CKD (chronic kidney disease), stage III (Chronic) COPD (chronic obstructive pulmonary disease) Diastolic CHF (Chronic) On 02/12/16 22:20 Ellie Herson wrote "per echo 09/30/15- EF 60-65%, mod LVH, mod MR, mod TR, dilated RV" DJD (degenerative joint disease), multiple sites (Chronic) DM type 2 (diabetes mellitus, type 2) (Chronic) DM2 (diabetes mellitus, type 2) (Chronic) Generalized anxiety disorder (Chronic) GERD (gastroesophageal reflux disease) (Chronic) History of pulmonary embolism (Chronic) HTN (hypertension) (Chronic) Hypertension (Chronic) Hyperuricemia (Chronic) Hypothyroidism (Chronic) Intertrigo Obesity (BMI 30-39.9) (Chronic) Stenosis of right carotid artery (Chronic) Surgical History History of hernia repair (Chronic) Status post cholecystectomy (Chronic) "Dr. Beavers [facility] 12/27/17" Family History Father Hypertension Diabetes Social History Preferred Language: Omani Communication Ability: Impaired Communication Ability Comment: lethargic Sole Conditioner Required: No Beliefs That Will Affect Care: None marital status: / Current Living Situation: Long Term Current Living Situation Comment: [facility] Other Information That Helps Us Care for You: No Feels Safe at Home: Yes Safety Concerns: Feels Safe At This Time Smoking Status: Former smoker Tobacco Type: cigarettes ; Do You Dip or Chew Tobacco: No ; Second Hand Exposure: No ; Tobacco Cessation Education Requested by Patient: No Hx Alcohol Use: No Hx Substance Use: No Review of Systems Constitutional: no fever and no chills Eyes: no diplopia and no worsening vision Ear, Nose, Mouth, Throat: no sore throat Respiratory: + dyspnea (chronic); no cough Cardiovascular: + edema; no chest pain Gastrointestinal: no nausea, no vomiting, no constipation, no diarrhea/loose stools, no blood in stools and no melena Genitourinary: no dysuria and no hematuria Musculoskeletal: intermittent LLE pain Integumentary: no rash Neurologic: no headache(s) Endocrine: no polydipsia and no polyuria Hematologic / Lymphatic: + easy bruising; no lymphadenopathy Physical Exam Constitutional: + acute distress, + ill appearing and + obese Eyes: PERRL, conjunctivae normal, anicteric sclerae ENMT: dry oral mucosa Neck: trachea midline, no thyromegaly Respiratory: no respiratory distress Auscultation: + wheezes Cardiovascular: Rate/Rhythm: + irregularly irregular Heart Sounds: no gallop, no murmur (exam limited) and no cardiac rub Vessels: no JVD Extremities: normal capillary refill and + edema (1+ pretibial); no calf tenderness Gastrointestinal (Abdomen): normal bowel sounds, soft, nontender, no hepatosp lenomegaly Musculoskeletal: Head/Neck/Chest: neck supple Extremities: strength 5/5 throughout wound vac applied to LLE Skin: no rashes, warm and dry Neurologic: PERRL, EOMI no facial palsy no dysarthria or aphasia patellar DTR's 2/2 bilat Psychiatric: Orientation: alert; + not oriented x 3 (moderately confused, oriented to person, place, not date) Genitourinary: Hu cath Lymphatic: no cervical lymphadenopathy Results & Data [facility] Vital Signs (Past 12 Hours) Vital Signs Temp Pulse Resp BP Pulse Ox 02/12/20 13:00 52 L 15 94/46 L 100 02/12/20 12:51 49 L 16 99 02/12/20 12:50 54 L 19 85/49 L 99 02/12/20 12:48 50 L 18 99 02/12/20 12:47 56 L 16 74/42 L 99 02/12/20 12:45 53 L 13 99 02/12/20 12:44 56 L 14 183/163 H 96 02/12/20 12:33 67 15 97 02/12/20 12:32 50 L 12 78/45 L 98 02/12/20 12:31 63 19 95 02/12/20 12:30 56 L 13 76/45 L 96 02/12/20 12:29 50 L 14 83/47 L 94 02/12/20 12:15 53 L 19 94 02/12/20 12:04 48 L 17 95 02/12/20 12:03 56 L 15 92/60 L 97 02/12/20 12:01 58 L 15 79/31 L 95 02/12/20 12:00 56 L 15 98 02/12/20 11:48 51 L 15 95 02/12/20 11:45 70 20 95 02/12/20 11:32 43 L 13 90/50 L 96 02/12/20 11:31 54 L 17 92/50 L 02/12/20 11:30 54 L 12 98 02/12/20 11:24 79 16 94/50 L 99 02/12/20 11:15 63 18 99 02/12/20 11:00 18 99 02/12/20 10:45 57 L 14 95 02/12/20 10:31 17 98/41 L 100 02/12/20 10:30 17 100 02/12/20 10:27 23 84/68 L 100 02/12/20 10:15 56 L 17 100 02/12/20 10:10 57 L 17 100 02/12/20 09:54 36.8 C 55 L 23 84/66 L 98 Laboratory Results Laboratory Results - last 24 hr 02/12/20 02/12/20 02/12/20 10:05 10:05 10:05 WBC 8.05 RBC 2.90 L Hgb 9.6 L POC Hgb Hct 30.3 L POC Hct MCV 104.5 H MCH 33.1 MCHC 31.7 L RDW Std Deviation 63.8 H RDW Coeff of Kenneth 16.8 H Plt Count 323 MPV 10.1 Immature Gran % (Auto) 0.2 Neut % (Auto) 59.9 Lymph % (Auto) 22.5 Hawkins % (Auto) 14.9 Eos % (Auto) 2.4 Baso % (Auto) 0.1 Immature Gran # (Auto) 0.02 Neut # (Auto) 4.82 Lymph # (Auto) 1.81 Hawkins # (Auto) 1.20 H Eos # (Auto) 0.19 Baso # (Auto) 0.01 PT 32.2 H INR 3.3 H Specimen Type POC pH POC pCO2 POC pO2 POC HCO3 POC Base Excess POC ABG O2 Sat POC Sodium Sodium 134 L POC Potassium Potassium 3.4 L POC Chloride Chloride 99 Carbon Dioxide 30 POC Total CO2 Anion Gap 5.0 POC Anion Gap POC BUN BUN 65 H Creatinine 1.73 H POC Creatinine Est Cr Clr Drug Dosing Not Reportable Est GFR ( Amer) 32.2 Est GFR (Non-Af Amer) 27.8 BUN/Creatinine Ratio 37.5 H Glucose 152 H POC Glucose (other) Lactate Calcium 8.9 POC Ioniz Calcium Caroline Magnesium 2.3 Total Bilirubin 0.3 AST 13 L ALT 11 L Alkaline Phosphatase 94 Troponin I < 0.015 NT-Pro-B Natriuret Pep 1752 Total Protein 6.1 L Albumin 2.1 L Globulin 4.0 Albumin/Globulin Ratio 0.5 L Procalcitonin TSH 4.690 H Free T4 0.94 Urine Color Urine Appearance Urine pH Ur Specific [place] Urine Protein Urine Glucose (UA) Urine Ketones Urine Blood Urine Nitrite Urine Bilirubin Urine Urobilinogen Ur Leukocyte Esterase Urine WBC (Auto) Urine RBC (Auto) U Hyaline Cast (Auto) U Epithel Cells (Auto) Urine Bacteria (Auto) Digoxin Adenovirus (PCR) B. pertussis DNA (PCR) B.parapertussis DNA PCR C. pneumoniae DNA (PCR) Coronavirus OC43 (PCR) Coronavirus HKU1 (PCR) Coronavirus 229E (PCR) Coronavirus NL63 (PCR) Human Metapneumovir PCR Influenza Type A (PCR) Influenza Type B (PCR) M. pneumoniae (PCR) Parainfluenza 1 (PCR) Parainfluenza 2 (PCR) Parainfluenza 3 (PCR) Parainfluenza 4 (PCR) RSV (PCR) Entero/Rhino (PCR) SARS-CoV-2 RNA (RT-PCR) Ref Lab Test Result 02/12/20 02/12/20 02/12/20 10:05 10:07 10:10 WBC RBC Hgb POC Hgb 9.2 L Hct POC Hct 27 L MCV MCH MCHC RDW Std Deviation RDW Coeff of Kenneth Plt Count MPV Immature Gran % (Auto) Neut % (Auto) Lymph % (Auto) Hawkins % (Auto) Eos % (Auto) Baso % (Auto) Immature Gran # (Auto) Neut # (Auto) Lymph # (Auto) Hawkins # (Auto) Eos # (Auto) Baso # (Auto) PT INR Specimen Type POC pH POC pCO2 POC pO2 POC HCO3 POC Base Excess POC ABG O2 Sat POC Sodium 135 Sodium POC Potassium 3.5 Potassium POC Chloride 96 L Chloride Carbon Dioxide POC Total CO2 30 Anion Gap POC Anion Gap 14.0 L POC BUN 66 H BUN Creatinine POC Creatinine 1.8 H Est Cr Clr Drug Dosing Est GFR ( Amer) Est GFR (Non-Af Amer) BUN/Creatinine Ratio Glucose POC Glucose (other) 147 H Lactate 1.5 Calcium POC Ioniz Calcium Caroline 1.26 Magnesium Total Bilirubin AST ALT Alkaline Phosphatase Troponin I NT-Pro-B Natriuret Pep Total Protein Albumin Globulin Albumin/Globulin Ratio Procalcitonin TSH Free T4 Urine Color Urine Appearance Urine pH Ur Specific [place] Urine Protein Urine Glucose (UA) Urine Ketones Urine Blood Urine Nitrite Urine Bilirubin Urine Urobilinogen Ur Leukocyte Esterase Urine WBC (Auto) Urine RBC (Auto) U Hyaline Cast (Auto) U Epithel Cells (Auto) Urine Bacteria (Auto) Digoxin Adenovirus (PCR) B. pertussis DNA (PCR) B.parapertussis DNA PCR C. pneumoniae DNA (PCR) Coronavirus OC43 (PCR) Coronavirus HKU1 (PCR) Coronavirus 229E (PCR) Coronavirus NL63 (PCR) Human Metapneumovir PCR Influenza Type A (PCR) Influenza Type B (PCR) M. pneumoniae (PCR) Parainfluenza 1 (PCR) Parainfluenza 2 (PCR) Parainfluenza 3 (PCR) Parainfluenza 4 (PCR) RSV (PCR) Entero/Rhino (PCR) SARS-CoV-2 RNA (RT-PCR) Cancelled Ref Lab Test Result 02/12/20 02/12/20 02/12/20 10:10 10:10 10:18 WBC RBC Hgb POC Hgb 9.5 L Hct POC Hct 28 L MCV MCH MCHC RDW Std Deviation RDW Coeff of Kenneth Plt Count MPV Immature Gran % (Auto) Neut % (Auto) Lymph % (Auto) Hawkins % (Auto) Eos % (Auto) Baso % (Auto) Immature Gran # (Auto) Neut # (Auto) Lymph # (Auto) Hawkins # (Auto) Eos # (Auto) Baso # (Auto) PT INR Specimen Type Arterial POC pH 7.36 POC pCO2 55 H POC pO2 372 H POC HCO3 31 H POC Base Excess 5.0 H POC ABG O2 Sat 100.0 H POC Sodium 134 L Sodium POC Potassium 3.3 Potassium POC Chloride Chloride Carbon Dioxide POC Total CO2 33 H Anion Gap POC Anion Gap POC BUN BUN Creatinine POC Creatinine Est Cr Clr Drug Dosing Est GFR ( Amer) Est GFR (Non-Af Amer) BUN/Creatinine Ratio Glucose POC Glucose (other) Lactate Calcium POC Ioniz Calcium Caroline Magnesium Total Bilirubin AST ALT Alkaline Phosphatase Troponin I NT-Pro-B Natriuret Pep Total Protein Albumin Globulin Albumin/Globulin Ratio Procalcitonin TSH Free T4 Urine Color Urine Appearance Urine pH Ur Specific [place] Urine Protein Urine Glucose (UA) Urine Ketones Urine Blood Urine Nitrite Urine Bilirubin Urine Urobilinogen Ur Leukocyte Esterase Urine WBC (Auto) Urine RBC (Auto) U Hyaline Cast (Auto) U Epithel Cells (Auto) Urine Bacteria (Auto) Digoxin Adenovirus (PCR) Not Detected B. pertussis DNA (PCR) Not Detected B.parapertussis DNA PCR Not Detected C. pneumoniae DNA (PCR) Not Detected Coronavirus OC43 (PCR) Not Detected Coronavirus HKU1 (PCR) Not Detected Coronavirus 229E (PCR) Not Detected Coronavirus NL63 (PCR) Not Detected Human Metapneumovir PCR Not Detected Influenza Type A (PCR) Not Detected Influenza Type B (PCR) Not Detected M. pneumoniae (PCR) Not Detected Parainfluenza 1 (PCR) Not Detected Parainfluenza 2 (PCR) Not Detected Parainfluenza 3 (PCR) Not Detected Parainfluenza 4 (PCR) Not Detected RSV (PCR) Not Detected Entero/Rhino (PCR) Not Detected SARS-CoV-2 RNA (RT-PCR) Ref Lab Test Result Pending 02/12/20 02/12/20 02/12/20 10:30 13:05 13:05 WBC RBC Hgb POC Hgb Hct POC Hct MCV MCH MCHC RDW Std Deviation RDW Coeff of Kenneth Plt Count MPV Immature Gran % (Auto) Neut % (Auto) Lymph % (Auto) Hawkins % (Auto) Eos % (Auto) Baso % (Auto) Immature Gran # (Auto) Neut # (Auto) Lymph # (Auto) Hawkins # (Auto) Eos # (Auto) Baso # (Auto) PT INR Specimen Type POC pH POC pCO2 POC pO2 POC HCO3 POC Base Excess POC ABG O2 Sat POC Sodium Sodium POC Potassium Potassium POC Chloride Chloride Carbon Dioxide POC Total CO2 Anion Gap POC Anion Gap POC BUN BUN Creatinine POC Creatinine Est Cr Clr Drug Dosing Est GFR ( Amer) Est GFR (Non-Af Amer) BUN/Creatinine Ratio Glucose POC Glucose (other) Lactate Calcium POC Ioniz Calcium Caroline Magnesium Total Bilirubin AST ALT Alkaline Phosphatase Troponin I NT-Pro-B Natriuret Pep Total Protein Albumin Globulin Albumin/Globulin Ratio Procalcitonin < 0.05 TSH Free T4 Urine Color Yellow Urine Appearance Clear Urine pH 5.5 Ur Specific [place] 1.013 Urine Protein Negative Urine Glucose (UA) Negative Urine Ketones Negative Urine Blood Negative Urine Nitrite Negative Urine Bilirubin Negative Urine Urobilinogen Negative Ur Leukocyte Esterase 1+ H Urine WBC (Auto) >30 H Urine RBC (Auto) 0-4 U Hyaline Cast (Auto) 5-10 H U Epithel Cells (Auto) 0-5 Urine Bacteria (Auto) Negative Digoxin 0.7 L Adenovirus (PCR) B. pertussis DNA (PCR) B.parapertussis DNA PCR C. pneumoniae DNA (PCR) Coronavirus OC43 (PCR) Coronavirus HKU1 (PCR) Coronavirus 229E (PCR) Coronavirus NL63 (PCR) Human Metapneumovir PCR Influenza Type A (PCR) Influenza Type B (PCR) M. pneumoniae (PCR) Parainfluenza 1 (PCR) Parainfluenza 2 (PCR) Parainfluenza 3 (PCR) Parainfluenza 4 (PCR) RSV (PCR) Entero/Rhino (PCR) SARS-CoV-2 RNA (RT-PCR) Ref Lab Test Result Diagnostic Findings Chest x-ray reviewed by undersigned and formally interpreted by Radiology. FINDINGS: Cardiac silhouette is enlarged. Widening of the mediastinum is again seen. Erwin cified plaque the thoracic aortic arch. There is no pneumothorax, large pleural effusion or overt pulmonary edema. Mild right diaphragmatic elevation. Mild chronic interstitial coarsening. There are a few linear bibasilar densities suggestive of probable scarring/atelectasis. Severe osteoarthritis of the bilateral glenohumeral joint with chronic remodeling changes. IMPRESSION: Cardiomegaly without acute process. ACT 112: Negative or not required by law. The above report was generated using voice recognition software. It may contain grammatical, syntax or spelling errors. Electronically signed by: Roberto Potts M.D. 02/12/2020 10:41 AM ECG Additional Comments: EKG performed at 1008 reviewed and demonstrated atrial fibrillation with a ventricular rate of 50/minute, right bundle branch block, baseline artifact, no apparent acute ST or T wave abnormalities. Code Status & VTE Plan Code Status Resuscitation status DNR per review of previous documentation. DNR status confirmed with patient and her sister. VTE Prophylaxis Plan VTE Prophylaxis will be ordered: Yes (1) Atrial fibrillation Atrial fibrillation type: unspecified Qualified Code(s): I48.91 - Unspecified atrial fibrillation
[2020-02-12 15:13] LABS: iSTAT Potassium 3.3 mmol/L (3.3-5.0); iSTAT Sodium 134 mmol/L (135-144)
[2020-02-12 15:14] LABS: iSTAT Arterial Blood Gas HCO3 31 meg/L (19-24); iSTAT Arterial Blood Gas pCO2 55 mmHg (35-46); iSTAT Arterial Blood Gas pH 7.36 (7.35-7.45); iSTAT Arterial Blood Gas pO2 372 mmHg (80-95); iSTAT Carbon Dioxide 33 mmol/L (24-31); iSTAT Hematocrit 28 % (37-47); iSTAT Hemoglobin 9.5 g/dl (12.0-16.0); iSTAT Sample Type Arterial
[2020-02-12] MEDS ORDERED: TRAMADOL HCL 50 MG TABLET PO PRN (16:51)
[2020-02-12] MEDS ORDERED: COUGH DROP (SUGAR FREE) LOZ 24 LOZ/1 BOX BUCCAL PRN (16:55)
[2020-02-12] MEDS ORDERED: MICONAZOLE NITRATE POWDER 43 GM TOP SCH (17:00)
[2020-02-12] MEDS ORDERED: BETAMETHASONE DIP AUG 0.05% OINT 15 GM TUBE EXT PRN (17:09)
[2020-02-12] MEDS: PREGABALIN 50 MG CAP PO SCH ×2 (17:12→20:23)
[2020-02-12] MEDS ORDERED: PROPRANOLOL HCL 10 MG TAB PO SCH (17:15)
[2020-02-12] MEDS ORDERED: TRAZODONE HCL 50 MG TAB PO SCH (20:00)
[2020-02-12] MEDS: METOPROLOL SUCC 50MG EXT REL TAB PO SCH (20:24)
[2020-02-12] MEDS: FAMOTIDINE 20 MG TAB PO SCH (20:24)
[2020-02-12] MEDS: MONTELUKAST SODIUM 10 MG TABLET PO SCH (20:25)
[2020-02-12] MEDS: DOCUSATE SODIUM 100 MG CAP PO SCH (20:25)
[2020-02-12] MEDS: SENNA 8.6 MG TAB PO SCH (20:26)
[2020-02-12] MEDS: SUCRALFATE 1 GM TAB PO SCH (20:26)
[2020-02-12] MEDS: guaiFENesin 600 MG TABCR PO SCH (20:27)
[2020-02-12] MEDS: TRAZODONE HCL 50 MG TAB PO SCH (20:27)
[2020-02-12] MEDS: MICONAZOLE NITRATE POWDER 43 GM TOP SCH (20:28)
[2020-02-12] MEDS ORDERED: guaiFENesin 600 MG TABCR PO SCH (21:00)
[2020-02-12] MEDS ORDERED: DOCUSATE SODIUM 100 MG CAP PO SCH (21:00)
[2020-02-12] MEDS: ARTIFICIAL TEARS OP SCH (21:13)
[2020-02-13] MEDS: LEVOTHYROXINE SODIUM 75 MCG TABLET PO SCH (05:43)
--- NOTE | 2020-02-13 06:06 | Electrocardiogram Report ---
Test Reason : Blood Pressure : / mmHG Vent. Rate : 053 BPM Atrial Rate : 097 BPM P-R Int : 000 ms QRS Dur : 104 ms QT Int : 482 ms P-R-T Axes : 000 033 052 degrees QTc Int : 452 ms Atrial fibrillation with slow ventricular response Nonspecific T wave abnormality Abnormal ECG When compared with ECG of 22-JAN-2020 10:35, Vent. rate has decreased BY 33 BPM Nonspecific T wave abnormality now evident in Inferior leads Confirmed by Nehemias Del Valle ([id number]) on 02/13/2020 6:06:30 AM Referred By: Freddy Stoll Confirmed By:Nehemias Del Valle
[2020-02-13] MEDS ORDERED: TRAZODONE HCL 50 MG TAB PO SCH (08:00)
[2020-02-13 08:07] LABS: Hematocrit (blood only) 30.4 % (37-47); Hemoglobin 9.6 g/dL (12.0-16.0); Mean Corpuscular Hemoglobin 32.4 pg (25-34); Mean Corpuscular Hgb Conc 31.6 g/dL (32-36); Mean Corpuscular Volume 102.7 fL (80-100); Mean Platelet Volume 10.4 fL (7.4-10.4); Platelet Count 362 K/uL (130-400); RDW Coefficient of Variation 16.5 % (11.5-14.5); RDW Standard Deviation 61.5 fL (36.4-46.3); Red Blood Count 2.96 M/uL (4.2-5.4); White Blood Count 9.22 K/uL (4.8-10.8)
[2020-02-13] MEDS: ARTIFICIAL TEARS OP SCH ×3 (08:20→21:20)
[2020-02-13 08:22] LABS: Estimated Average Glucose 120 mg/dl; Hemoglobin A1C 5.8 % (4.5-5.6)
[2020-02-13] MEDS: guaiFENesin 600 MG TABCR PO SCH ×2 (08:22→21:26)
[2020-02-13] MEDS: DULOXETINE HCL 60 MG CAP PO SCH (08:22)
[2020-02-13] MEDS: FLUTICASONE/VILANTEROL 100/25MCG 14 PUFFS/INHALER INH SCH (08:22)
[2020-02-13] MEDS: SUCRALFATE 1 GM TAB PO SCH ×2 (08:23→21:24)
[2020-02-13] MEDS: DOCUSATE SODIUM 100 MG CAP PO SCH ×2 (08:23→21:25)
[2020-02-13] MEDS: FAMOTIDINE 20 MG TAB PO SCH ×2 (08:23→21:24)
[2020-02-13] MEDS: allopurinoL 100 MG TAB PO SCH (08:23)
[2020-02-13] MEDS: SENNA 8.6 MG TAB PO SCH ×2 (08:23→21:24)
[2020-02-13] MEDS: METOPROLOL SUCC 50MG EXT REL TAB PO SCH ×2 (08:24→21:24)
[2020-02-13] MEDS: MICONAZOLE NITRATE POWDER 43 GM TOP SCH ×3 (08:30→21:25)
[2020-02-13] MEDS: UMECLIDINIUM BROMIDE 62.5MCG/BLISTER 7 PUFFS/INHALER INH SCH (08:30)
[2020-02-13 08:32] LABS: INR 3.1 (0.9-1.1); Prothrombin Time 30.4 Seconds (9.0-12.0)
[2020-02-13 08:42] LABS: BUN Creatinine Ratio 44.5 (10-20); Calcium 8.9 mg/dl (8.5-10.1); Creatinine Clr Calc Pharmacy 39.6 ml/min; Est GFR (Non-African American) 36.2
[2020-02-13 08:44] LABS: Folate (Folic Acid) 10.94 ng/ml (>5.38)
[2020-02-13] MEDS ORDERED: allopurinoL 100 MG TAB PO SCH (09:00)
--- NOTE | 2020-02-13 09:28 | XRay Report ---
XR chest 1V portable HISTORY: 79 years-old Female CHF acute shortness of breath with congestive heart failure COMPARISON: Chest radiograph 02/12/2020, chest CT 07/03/2019 TECHNIQUE: Portable AP view of the chest FINDINGS: Cardiac silhouette is enlarged. Unchanged mediastinal widening. Unchanged right hilar prominence. Erwin cified plaque of the thoracic aortic arch. No pneumothorax or overt pulmonary edema. Mild blunting of the costophrenic angles. Pulmonary vascular congestion. Minimal linear bibasilar densities. Severe d egenerative changes of the bilateral shoulders. IMPRESSION: 1. Cardiomegaly, overt pulmonary edema. 2. Linear bibasilar densities suggest atelectasis. 3. Possible trace pleural effusions. ACT 112: Negative or not required by law. The above report was generated using voice recognition software. It may contain grammatical, syntax o r spelling errors. Electronically signed by: Roberto Potts M.D. 02/13/2020 9:26 AM
--- NOTE | 2020-02-13 09:43 | Pharmacy Report ---
Pharmacy Abx Initial Consult - Date of Service February 13, 2020 - Pharmacy Dosing Scope Date of Consult: 02/11 Consultation requested by: Dr. Floyd Pharmacy is consulted to initiate vancomycin IV dosing therapy, order appropriate labs and adjust drug dose/frequency. - Subjective The patient is a 79 year old F admitted on 02/12/20 13:33. - Objective Height: 5 ft 5 in Weight: 102.3 kg Vital Signs (Past 12hrs): Vital Signs Temp Pulse Pulse Resp BP Pulse Ox 02/13/20 08:00 66 02/13/20 07:03 36.6 C 64 18 98/56 L 02/13/20 04:12 36.3 C L 66 18 117/62 96 02/13/20 00:00 36.5 C 58 L 65 18 132/74 96 Lab Results (24hrs): Laboratory Tests (24 Hours) 02/13/20 02/13/20 02/13/20 07:40 07:40 07:40 WBC 9.22 Neut # (Auto) Creatinine 1.39 H D Est Cr Clr Drug Dosing 39.6 Procalcitonin Random Vancomycin 18.1 02/12/20 02/12/20 02/12/20 13:05 10:05 10:05 WBC 8.05 Neut # (Auto) 4.82 Creatinine 1.73 H Est Cr Clr Drug Dosing Not Reportable Procalcitonin < 0.05 Random Vancomycin Micro Results: 02/12/20 10:30 Urine Culture - Pending Urine,Clean Catch 02/12/20 10:10 Aerobic Blood Culture - Pending Blood Anaerobic Blood Culture - Pending 02/12/20 10:05 Aerobic Blood Culture - Pending Blood Anaerobic Blood Culture - Pending - Risk Factors for Resistance * Resident in a residential or extended-care facility * Hospitalization for 48 hours or more within the past 90 days * 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 Empiric antibiotic therapy initiated due to severe hypotension on presentation. WBC, lactate and procal WNL. No definite source of infection. CXR negative. UA with + WBC and leukocyte esterase but no bacteria. Antibiotics will be continued for 48 hours pending culture results SCr elevated on admission and has improved thus far (1.7 -> 1.4). Baseline ~1.2 Patient was given a vancomycin loading dose of 2500 mg (24 mg/kg) on 02/11 @ 1030. Random level with AM labs = 18.1 Plan Vancomycin/cefepime for empiric treatment of possible infection, source unknown Vancomycin IV * Estimated PK Parameters: Vd 0.6 L/kg, Lavelle 0.037 hr-1, t1/2 18.7 hr * Loading dose: 2500 mg (24 mg/kg) * Maintenance dose: 1250 mg IV (12.3 mg/kg) every 24 hours - start now as random level in range to re-dose * A less than traditional dose and/or extended dosing interval has/have been selected due to likelihood of drug accumulation in obese patient/patient with h/o CKD. * Goal trough level : 15 to 20 mcg/mL * No trough level ordered at this time due to 48 hour therapy duration. Will need to obtain trough prior to 3rd dose if vancomycin continued > 48 hours Cefepime * Pharmacy following as per renal dosing protocol. 2 gm q12h appropriate for CrCl 39.6 mL/min Pharmacy will continue to follow and will adjust dose/frequency as necessary. Thank you.
[2020-02-13] MEDS ORDERED: VANCOMYCIN HCL 1,250 MG in SODIUM CHLORIDE 0.9% 250 ML IV SCH (10:00)
[2020-02-13] MEDS: PREGABALIN 50 MG CAP PO SCH ×3 (10:20→21:24)
[2020-02-13] MEDS ORDERED: POTASSIUM CHLORIDE 20 MEQ TABCR PO ONE ×2 (10:30→14:39)
[2020-02-13] MEDS: CEFEPIME 2,000 MG in SYRINGE 7.5 ML IV SCH ×2 (10:30→21:26)
--- NOTE | 2020-02-13 14:21 | Hospitalist Progress Note ---
Date of Service February 13, 2020 Assessment & Plan (1) Hypotension: Presented with hypotension with systolic blood pressures in the 70s and 80s in the field and in the ED. Sepsis was considered, but no definite source of infection at time of presentation. UA shows 1+ leukocyte esterase, WBC's, no bacteria. Normal WBC, lactate, procalcitonin made sepsis unlikely. Nevertheless, felt prudent to check cultures and start empiric antibiotic therapy. Received IV vancomycin and cefepime in ED- will continue empiric coverage for 48 hours pending culture results. History of pulmonary embolism, but acute PE unlikely with supratherapeutic INR. Patient appeared to be dehydrated per physical assessment and laboratory studies. Suspect volume depletion due to diuretic therapy and inadequate oral fluid intake. Blood pressures improving in the ED with volume resuscitation; did not require pressor support. Presentation atypical for COVID-19 and no known contacts. SARS-CoV-2 PCR negative. Received IV fluid with improvement of hemodyamics. Holding diuretic therapy. Hold propranolol. Continue metoprolol with hold parameters. (2) Bradycardia: Chronic atrial fibrillation, rate-controlled. Ventricular rate in the ED mostly in the 50s, but sometimes dipping down to 30s and 40s. Medications include metoprolol succinate, propranolol, digoxin. Clarified with sister why patient is receiving 2 beta-blockers metoprolol for AF and hypertension, propropanolol for tremor. Propranolol has not demonstrated any apparent benefit, so will stop it. Digoxin level 0.7. Discussed with Cardiology. Try stopping digoxin. Continue metoprolol succinate with hold parameters. (3) Respiratory failure with hypoxia: Chronic hypoxic respiratory failure on nocturnal O2 at 2 L/min. Chronic respiratory failure probably secondary to COPD +/- sleep apnea +/- obesity hypoventilation syndrome. Marked hypoxia with O2 saturations in the 70s in the field. Oxygenation improved with nonrebreather and transitioned to oxymask. ABG ? with nonrebreather demonstrated a PO2 of 372, PCO2 55, bicarb 31, pH of 7.36. Acute hypoxic respiratory failure superimposed on chronic hypoxic respiratory failure plus or minus probable chronic hypercapnic respiratory failure. No apparent pneumonia or CHF on chest x-ray. History of pulmonary embolism, but PE unlikely with supratherapeutic INR on warfarin. COVID-19 ruled out. Oxygenating well on RA this morning. Continue nocturnal O2. (4) AMS (altered mental status): Very lethargic upon presentation to ED. Noted to be hypoxic in the field. Has UTI. Probable metabolic and/or hypoxic encephalopathy. Mental status improved. No focal findings on neurologic exam. (5) Diastolic CHF: History of left ventricular diastolic heart failure. No apparent CHF on admission chest x-ray and patient appeared to be volume depleted. Holding diuretics. No CHF on follow-up chest x-ray this morning. Follow cardiac status, weights, etc. Titrate diuretics. Management discussed with Cardiology for coordination of care. (6) Atrial fibrillation: Chronic atrial fibrillation, rate controlled currently with metoprolol, propranolol, digoxin. Bradycardia as discussed above. Stop digoxin and propranolol. Continue metoprolol succinate with hold parameters. Continue anticoagulation with warfarin. Management discussed with Cardiology for coordination of care. (7) Hypertension: Hypotensive at time of admission. Hemodynamics improved with fluid resuscitation. Continue metoprolol with hold parameters. Follow and titrate therapy. (8) COPD (chronic obstructive pulmonary disease): Bronchodilators as needed. Titrate supplemental oxygen. (9) GERD (gastroesophageal reflux disease): Continue famotidine. (10) Acute kidney injury: Serum creatinine 1.73 compared to recent baseline of 1.2-1.4. BUN elevated as well. Acute kidney injury superimposed on CKD stage III. Suspected acute kidney injury secondary to dehydration/volume depletion. Received IV fluids. Creatinine today = 1.39. Follow. (11) Hypokalemia: K today = 3.0. Replace. Follow. (12) DM type 2 (diabetes mellitus, type 2): History of diabetes mellitus type 2. Currently diet controlled. Hemoglobin A1c = 5.8. Random blood sugar in ED 152. FBS today = 182. (13) Hypothyroidism: TSH slightly elevated (4.69) in setting of acute illness. TSH was normal in December. Continue current dose of levothyroxine. (14) Hyperuricemia: Continue allopurinol. (15) Anemia: Hemoglobin 9.6 compared to 8.6 on 02/03/2020. Hemoglobin was 12.7 on 01/22/2020 when she presented with significant bleeding from traumatic hematoma of left lower extremity. Acute blood loss anemia secondary to recent blood loss. Iron replacement. Follow H&H. (16) Open wound of left lower leg: Wound left lower extremity secondary to traumatic hematoma a few weeks ago. No overt signs of wound infection. Wound Care Team consulted to continue management. (17) Urinary tract infection: Admission UA showed 1+ leukocyte esterase, > 30 WBC's, 5-10 hyaline casts, no bacteria. Urine culture growing > 100,000 CFU Strep sp. No fever or urinary symptoms. Normal temperature, WBC, lactate, procalcitonin make sepsis unlikely. Uncertain whether bacteruria represents infection or colonization, but best to treat given clinical presentation. Transition to oral therapy when ID and sensitivities back. (18) Chronic pain: Chronic musculoskeletal pain + more recent pain from leg injury. May be having confusion / lethargy from meds. Titrate analgesics. (19) Polypharmacy: Patient taking about 27 scheduled meds and several PRN's. May be having adverse events due to polypharmacology. Stop or decrease meds as able. On propranolol for tremor. Also on metoprolol. Presented with hypotension and bradycardia. No apparent benefit. DC. On trazodone in a.m. + HS. Try to DC morning dose. On pregabalin which can cause confusion and lethargy- decrease dose. ROSEY + volume depletion on 3 diuretics. Try to DC spironolactone + metolazone (although ongoing titration may be necessary). On digoxin for rate control of AF. Bradycardic at time of admission. CHF is diastolic. DC dig if ventricular rate adequately controlled. Scheduled guaifenesin BID, but no chest congestion. Try to DC. May use PRN. On glucosamine-chondroitin for arthritis, but controlled studies have not demonstrated any benefit. Will DC if OK with patient. (20) DVT prophylaxis: On chronic warfarin therapy for atrial fibrillation and history of pulmonary embolism. Continue warfarin. Ambulate as able. (21) Do not resuscitate status: DNR status discussed/confirmed with patient and sister. (22) Discharge planning issues: Anticipated return to [facility] when medically stable. Sister Kate given update by phone. Admission and Anticipated Discharge Date Admission Date: February 12, 2020 Subjective Recheck for multiple problems. Patient seen in their room around 1210. Somnolent and confused earlier this morning. Pregabalin and trazodone were held. Now more alert. No fever. Minimal cough. No SOB. Review of Systems: Constitutional- no fever. Cardiac- no chest pain. Pulmonary- as noted above. GI- no nausea, vomiting, diarrhea, melena, hematochezia. - no urinary symptoms. Otherwise, as noted above. Physical Exam Constitutional: WD/WN, vitals as above + obese; no acute distress Eyes: + anicteric sclerae Respiratory: no respiratory distress Auscultation: + wheezes (mild) Cardiovascular: Rate/Rhythm: + irregularly irregular Heart Sounds: no gallop, no murmur and no cardiac rub Vessels: + JVD Extremities: + edema (trace pretibial); no calf tenderness Gastrointestinal (Abdomen): normal bowel sounds, soft, nontender, no hepatosplenomegaly Musculoskeletal: Extremities: no cyanosis bandaged wound LLE Psychiatric: Orientation: alert; + not oriented x 3 (doesn't know the date, but oriented to person, place, year) Genitourinary: + bladder abnormality (Hu cath) Results & Data Results & Data ([facility]) Vital Signs (Past 12 Hours) Vital Signs Temp Pulse Pulse Resp BP Pulse Ox 02/13/20 11:50 37.0 C 68 19 129/44 L 93 02/13/20 08:00 66 02/13/20 07:03 36.6 C 64 18 98/56 L 02/13/20 04:12 36.3 C L 66 18 117/62 96 Laboratory Results 02/13/20 07:40 02/13/20 07:40 Microbiology 02/12/20 10:10 Blood Aerobic Blood Culture - Preliminary No growth in Aerobic bottle after 24 hours. 02/12/20 10:10 Blood Anaerobic Blood Culture - Final 02/12/20 10:05 Blood Aerobic Blood Culture - Preliminary No growth in Aerobic bottle after 24 hours. 02/12/20 10:05 Blood Anaerobic Blood Culture - Preliminary No growth in Anaerobic bottle after 24 hours. 02/12/20 10:30 Urine,Clean Catch Urine Culture - Preliminary Streptococcus species (1) Atrial fibrillation Atrial fibrillation type: unspecified Qualified Code(s): I48.91 - Unspecified atrial fibrillation
[2020-02-13] MEDS: WARFARIN SOD 1 MG TAB PO SCH (16:09)
[2020-02-13] MEDS: TRAZODONE HCL 50 MG TAB PO SCH (21:24)
[2020-02-13] MEDS: MONTELUKAST SODIUM 10 MG TABLET PO SCH (21:25)
[2020-02-14] MEDS: LEVOTHYROXINE SODIUM 75 MCG TABLET PO SCH (06:06)
[2020-02-14 07:03] LABS: Hematocrit (blood only) 32.5 % (37-47); Hemoglobin 10.2 g/dL (12.0-16.0); Mean Corpuscular Hemoglobin 32.3 pg (25-34); Mean Corpuscular Hgb Conc 31.4 g/dL (32-36); Mean Corpuscular Volume 102.8 fL (80-100); Mean Platelet Volume 10.3 fL (7.4-10.4); Platelet Count 338 K/uL (130-400); RDW Standard Deviation 63.7 fL (36.4-46.3); Red Blood Count 3.16 M/uL (4.2-5.4); White Blood Count 8.31 K/uL (4.8-10.8)
[2020-02-14 07:42] LABS: BUN Creatinine Ratio 44.9 (10-20); Calcium 9.2 mg/dl (8.5-10.1); Creatinine Clr Calc Pharmacy 42.8 ml/min; Est GFR (African American) 42.3; Est GFR (Non-African American) 36.5
[2020-02-14 08:03] LABS: INR 2.4 (0.9-1.1); Prothrombin Time 24.5 Seconds (9.0-12.0)
[2020-02-14] MEDS: METOPROLOL SUCC 50MG EXT REL TAB PO SCH ×2 (08:44→19:55)
[2020-02-14] MEDS: UMECLIDINIUM BROMIDE 62.5MCG/BLISTER 7 PUFFS/INHALER INH SCH (08:44)
[2020-02-14] MEDS: DOCUSATE SODIUM 100 MG CAP PO SCH ×2 (08:45→19:45)
[2020-02-14] MEDS: SENNA 8.6 MG TAB PO SCH ×2 (08:45→19:56)
[2020-02-14] MEDS: allopurinoL 100 MG TAB PO SCH (08:45)
[2020-02-14] MEDS: SUCRALFATE 1 GM TAB PO SCH ×2 (08:46→19:57)
[2020-02-14] MEDS: FAMOTIDINE 20 MG TAB PO SCH ×2 (08:46→19:57)
[2020-02-14] MEDS: DULOXETINE HCL 60 MG CAP PO SCH (08:46)
[2020-02-14] MEDS: ARTIFICIAL TEARS OP SCH ×3 (08:47→19:56)
[2020-02-14] MEDS: FLUTICASONE/VILANTEROL 100/25MCG 14 PUFFS/INHALER INH SCH (08:47)
[2020-02-14] MEDS: MICONAZOLE NITRATE POWDER 43 GM TOP SCH ×3 (08:48→19:57)
[2020-02-14] MEDS: CEFEPIME 2,000 MG in SYRINGE 7.5 ML IV SCH (08:55)
[2020-02-14] MEDS: PREGABALIN 25 MG CAP PO SCH ×3 (08:56→19:53)
[2020-02-14] MEDS: POTASSIUM CHLORIDE 20 MEQ TABCR PO SCH ×3 (09:06→19:58)
[2020-02-14] MEDS: AMPICILLIN 2,000 MG in SODIUM CHLOR 0.9% AD-VAN 100 ML IV SCH ×2 (14:07→21:34)
--- NOTE | 2020-02-14 14:21 | Hospitalist Progress Note ---
Date of Service February 14, 2020 Assessment & Plan (1) Hypotension: Presented with hypotension with systolic blood pressures in the 70s and 80s in the field and in the ED. Sepsis was considered, but no definite source of infection at time of presentation. UA showed 1+ leukocyte esterase, WBC's, no bacteria. Urine C&S positive as discussed below. Normal WBC, lactate, procalcitonin made sepsis unlikely. Nevertheless, felt prudent to check cultures and start empiric antibiotic therapy. Received IV vancomycin and cefepime in ED- will continue empiric coverage for 48 hours pending culture results. History of pulmonary embolism, but acute PE unlikely with supratherapeutic INR. Patient appeared to be dehydrated per physical assessment and laboratory studies. Suspect volume depletion due to diuretic therapy and inadequate oral fluid intake. Blood pressures improved in the ED with volume resuscitation; did not require pressor support. Presentation atypical for COVID-19 and no known contacts. SARS-CoV-2 PCR negative. Received IV fluids with improvement of hemodynamics. Held diuretic therapy. Discontinued propranolol. Continue metoprolol with hold parameters. (2) Bradycardia: Chronic atrial fibrillation, rate-controlled. Ventricular rate in the ED mostly in the 50s, but sometimes dipping down to 30s and 40s. Medications include metoprolol succinate, propranolol, digoxin. Clarified with sister why patient is receiving 2 beta-blockers metoprolol for AF and hypertension, propranolol for tremor. Propranolol has not demonstrated any apparent benefit, so will stop it. Digoxin level 0.7. Discussed with Cardiology. Stopped digoxin. Continue metoprolol succinate with hold parameters. (3) Respiratory failure with hypoxia: Chronic hypoxic respiratory failure on nocturnal O2 at 2 L/min. Chronic respiratory failure probably secondary to COPD +/- sleep apnea +/- obesity hypoventilation syndrome. Marked hypoxia with O2 saturations in the 70s in the field. Oxygenation improved with nonrebreather and transitioned to oxymask. ABG ? with nonrebreather demonstrated a PO2 of 372, PCO2 55, bicarb 31, pH of 7.36. Acute hypoxic respiratory failure superimposed on chronic hypoxic respiratory failure plus or minus probable chronic hypercapnic respiratory failure. No apparent pneumonia or CHF on chest x-ray. History of pulmonary embolism, but PE unlikely with supratherapeutic INR on warfarin. COVID-19 ruled out. Now oxygenating well on RA. Continue nocturnal O2. (4) AMS (altered mental status): Very lethargic upon presentation to ED. Noted to be hypoxic in the field. Has possible UTI. Probable metabolic and/or hypoxic encephalopathy. Mental status improved. No focal findings on neurologic exam. (5) Diastolic CHF: History of left ventricular diastolic heart failure. No apparent CHF on admission chest x-ray and patient appeared to be volume depleted. Holding diuretics. No CHF on follow-up chest x-ray 02/12 . Follow cardiac status, weights, etc. Titrate diuretics. Management discussed with Cardiology for coordination of care. (6) Atrial fibrillation: Chronic atrial fibrillation, rate controlled currently with metoprolol, propranolol, digoxin. Bradycardia as discussed above. Stopped digoxin and propranolol. Continue metoprolol succinate with hold parameters. Continue anticoagulation with warfarin. Management discussed with Cardiology for coordination of care. (7) Hypertension: Hypotensive at time of admission. Hemodynamics improved with fluid resuscitation. Continue metoprolol with hold parameters. Follow and titrate therapy. (8) COPD (chronic obstructive pulmonary disease): Bronchodilators as needed. Titrate supplemental oxygen. (9) GERD (gastroesophageal reflux disease): Continue famotidine. (10) Acute kidney injury: Serum creatinine 1.73 compared to recent baseline of 1.2-1.4. BUN elevated as well. Acute kidney injury superimposed on CKD stage III. Suspected acute kidney injury secondary to dehydration/volume depletion. Received IV fluids. Creatinine today = 1.38. Follow. (11) Hypokalemia: K today = 3.0. Replace. Follow. (12) DM type 2 (diabetes mellitus, type 2): History of diabetes mellitus type 2. Currently diet controlled. Hemoglobin A1c = 5.8. Random blood sugar in ED 152. FBS today = 123. (13) Hypothyroidism: TSH slightly elevated (4.69) in setting of acute illness. TSH was normal in December. Continue current dose of levothyroxine. (14) Hyperuricemia: Continue allopurinol. (15) Anemia: Hemoglobin 9.6 compared to 8.6 on 02/03/2020. Hemoglobin was 12.7 on 01/22/2020 when she presented with significant bleeding from traumatic hematoma of left lower extremity. Acute blood loss anemia secondary to recent blood loss. Iron replacement. Follow H&H. (16) Open wound of left lower leg: Wound left lower extremity secondary to traumatic hematoma a few weeks ago. No overt signs of wound infection. Wound Care Team consulted to continue management. (17) Urinary tract infection: Admission UA showed 1+ leukocyte esterase, > 30 WBC's, 5-10 hyaline casts, no bacteria. Urine culture growing > 100,000 CFU Strep sp. = Enterococcus faecalis. No fever or urinary symptoms. Normal temperature, WBC, lactate, procalcitonin make sepsis unlikely. Uncertain whether bacteruria represents infection or colonization, but best to treat given clinical presentation. Received a few doses of IV vancomycin. Change to IV ampicillin per sensitivities. (18) Chronic pain: Chronic musculoskeletal pain + more recent pain from leg injury. May be having confusion / lethargy from meds. Titrate analgesics. (19) Polypharmacy: Patient taking about 27 scheduled meds and several PRN's. May be having adverse events due to polypharmacology. Stop or decrease meds as able. On propranolol for tremor. Also on metoprolol. Presented with hypotension and bradycardia. No apparent benefit. DC. On trazodone in a.m. + HS. Try to DC morning dose. On pregabalin which can cause confusion and lethargy- decrease dose. ROSEY + volume depletion on 3 diuretics. Try to DC spironolactone + metolazone (although ongoing titration may be necessary). On digoxin for rate control of AF. Bradycardic at time of admission. CHF is diastolic. DC dig if ventricular rate adequately controlled. Scheduled guaifenesin BID, but no chest congestion. Try to DC. May use PRN. On glucosamine-chondroitin for arthritis, but controlled studies have not demonstrated any benefit. Will DC if OK with patient. (20) Macrocytosis: MCV = 102. TSH essentially normal. B12, folate normal. (21) Hu catheter in place: Hu cath placed in ED. Remove. (22) DVT prophylaxis: On chronic warfarin therapy for atrial fibrillation and history of pulmonary embolism. Continue warfarin. Ambulate as able. (23) Do not resuscitate status: DNR status discussed/confirmed with patient and sister. (24) Discharge planning issues: Anticipated return to [facility] when medically stable. Called sister Kate to offer update. No answer. Message left. Admission and Anticipated Discharge Date Admission Date: February 12, 2020 Subjective Recheck for multiple problems. Patient seen in their room around 1400. More alert. No fever. Minimal cough. No SOB. Pain well-controlled. Review of Systems: Constitutional- no fever. Cardiac- no chest pain. Pulmonary- as noted above. GI- no nausea, vomiting, diarrhea, melena, hematochezia. - Hu cath. Otherwise, as noted above. Physical Exam Constitutional: WD/WN, vitals as above + ill appearing and + obese; no acute distress Eyes: + anicteric sclerae Respiratory: no respiratory distress Auscultation: + wheezes (mild) Cardiovascular: Rate/Rhythm: + irregularly irregular Heart Sounds: no gallop, no murmur and no cardiac rub Vessels: + JVD Extremities: + edema (trace pretibial); no calf tenderness Gastrointestinal (Abdomen): normal bowel sounds, soft, nontender, no hepatosplenomegaly Musculoskeletal: Extremities: no cyanosis Psychiatric: Orientation: alert; + not oriented x 3 (doesn't know the date, but oriented to person, place, year) Genitourinary: + bladder abnormality (Hu cath) Results & Data Results & Data ([facility]) Vital Signs (Past 12 Hours) Vital Signs Temp Pulse Pulse Resp BP Pulse Ox 02/14/20 12:03 36.4 C L 65 18 103/67 98 02/14/20 08:08 36.7 C 64 18 126/74 99 02/14/20 03:09 78 02/14/20 03:05 36.4 C L 62 19 115/62 93 Laboratory Results Laboratory Results - last 24 hr 02/14/20 02/14/20 02/14/20 06:42 06:42 06:42 WBC 8.31 RBC 3.16 L Hgb 10.2 L Hct 32.5 L MCV 102.8 H MCH 32.3 MCHC 31.4 L RDW Std Deviation 63.7 H RDW Coeff of Kenneth 17.0 H Plt Count 338 MPV 10.3 PT Cancelled INR Cancelled Sodium 138 Potassium Chloride 104 Carbon Dioxide 25 Anion Gap 9.0 BUN 62 H Creatinine 1.38 H Est Cr Clr Drug Dosing 42.8 Est GFR ( Amer) 42.3 Est GFR (Non-Af Amer) 36.5 BUN/Creatinine Ratio 44.9 H Glucose 123 H Calcium 9.2 02/14/20 02/14/20 07:30 07:36 WBC RBC Hgb Hct MCV MCH MCHC RDW Std Deviation RDW Coeff of Kenneth Plt Count MPV PT 24.5 H INR 2.4 H Sodium Potassium 3.0 L Chloride Carbon Dioxide Anion Gap BUN Creatinine Est Cr Clr Drug Dosing Est GFR ( Amer) Est GFR (Non-Af Amer) BUN/Creatinine Ratio Glucose Calcium Microbiology 02/12/20 10:10 Blood Aerobic Blood Culture - Preliminary No growth in Aerobic bottle after 48 hours. 02/12/20 10:10 Blood Anaerobic Blood Culture - Final 02/12/20 10:05 Blood Aerobic Blood Culture - Preliminary No growth in Aerobic bottle after 48 hours. 02/12/20 10:05 Blood Anaerobic Blood Culture - Preliminary No growth in Anaerobic bottle after 48 hours. 02/12/20 10:30 Urine,Clean Catch Urine Culture - Final Enterococcus faecalis (1) Atrial fibrillation Atrial fibrillation type: unspecified Qualified Code(s): I48.91 - Unspecified atrial fibrillation
[2020-02-14] MEDS: ACETAMINOPHEN 500 MG TAB PO PRN (14:25)
[2020-02-14] MEDS: WARFARIN SOD 1 MG TAB PO SCH (15:55)
[2020-02-14] MEDS: TRAZODONE HCL 50 MG TAB PO SCH (19:53)
[2020-02-14] MEDS: MONTELUKAST SODIUM 10 MG TABLET PO SCH (19:56)
[2020-02-14] MEDS ORDERED: fentaNYL 12 MCG/HR TDSY TD SCH (21:00)
[2020-02-15] MEDS: CHECK FENTANYL PATCH PLACEMENT SCH ×3 (00:37→15:23)
[2020-02-15] MEDS: AMPICILLIN 2,000 MG in SODIUM CHLOR 0.9% AD-VAN 100 ML IV SCH ×3 (06:15→20:51)
[2020-02-15] MEDS: LEVOTHYROXINE SODIUM 75 MCG TABLET PO SCH (06:15)
[2020-02-15 06:29] LABS: Hematocrit (blood only) 28.8 % (37-47); Hemoglobin 9.4 g/dL (12.0-16.0); Mean Corpuscular Hemoglobin 33.1 pg (25-34); Mean Corpuscular Hgb Conc 32.6 g/dL (32-36); Mean Corpuscular Volume 101.4 fL (80-100); Mean Platelet Volume 9.8 fL (7.4-10.4); Platelet Count 308 K/uL (130-400); RDW Coefficient of Variation 16.9 % (11.5-14.5); RDW Standard Deviation 62.5 fL (36.4-46.3); Red Blood Count 2.84 M/uL (4.2-5.4); White Blood Count 8.33 K/uL (4.8-10.8)
[2020-02-15 07:06] LABS: BUN Creatinine Ratio 46.8 (10-20); Calcium 8.9 mg/dl (8.5-10.1); Creatinine Clr Calc Pharmacy 50.1 ml/min; Est GFR (African American) 52.2; Est GFR (Non-African American) 45.1; Magnesium 2.2 mg/dl (1.8-2.4); Potassium 3.6 mmol/L (3.5-5.1)
[2020-02-15 07:57] LABS: INR 1.8 (0.9-1.1); Prothrombin Time 18.2 Seconds (9.0-12.0)
[2020-02-15] MEDS ORDERED: WARFARIN SOD 3 MG TAB PO ONE (08:04)
[2020-02-15] MEDS: allopurinoL 100 MG TAB PO SCH (09:20)
[2020-02-15] MEDS: DULOXETINE HCL 60 MG CAP PO SCH (09:21)
[2020-02-15] MEDS: FAMOTIDINE 20 MG TAB PO SCH ×2 (09:21→20:47)
[2020-02-15] MEDS: POTASSIUM CHLORIDE 20 MEQ TABCR PO SCH ×3 (09:21→20:45)
[2020-02-15] MEDS: SUCRALFATE 1 GM TAB PO SCH ×2 (09:21→20:45)
[2020-02-15] MEDS: UMECLIDINIUM BROMIDE 62.5MCG/BLISTER 7 PUFFS/INHALER INH SCH (09:22)
[2020-02-15] MEDS: FLUTICASONE/VILANTEROL 100/25MCG 14 PUFFS/INHALER INH SCH (09:22)
[2020-02-15] MEDS: METOPROLOL SUCC 50MG EXT REL TAB PO SCH ×2 (09:23→20:47)
[2020-02-15] MEDS: ARTIFICIAL TEARS OP SCH ×3 (09:25→20:45)
[2020-02-15] MEDS: SENNA 8.6 MG TAB PO SCH ×2 (09:27→20:44)
[2020-02-15] MEDS: MICONAZOLE NITRATE POWDER 43 GM TOP SCH ×3 (09:27→20:46)
[2020-02-15] MEDS: DOCUSATE SODIUM 100 MG CAP PO SCH ×2 (09:33→20:45)
[2020-02-15] MEDS: ACETAMINOPHEN 500 MG TAB PO PRN (09:34)
[2020-02-15] MEDS: PREGABALIN 25 MG CAP PO SCH ×3 (09:35→20:44)
[2020-02-15] MEDS: FUROSEMIDE 80 MG TAB PO SCH (15:17)
--- NOTE | 2020-02-15 19:50 | Hospitalist Progress Note ---
Date of Service February 15, 2020 Assessment & Plan (1) Hypotension: Presented with hypotension with systolic blood pressures in the 70s and 80s in the field and in the ED. Sepsis was considered, but no definite source of infection at time of presentation. UA showed 1+ leukocyte esterase, WBC's, no bacteria. Urine C&S positive as discussed below. Normal WBC, lactate, procalcitonin made sepsis unlikely. Nevertheless, felt prudent to check cultures and start empiric antibiotic therapy. Received IV vancomycin and cefepime in ED- will continue empiric coverage for 48 hours pending culture results. History of pulmonary embolism, but acute PE unlikely with supratherapeutic INR. Patient appeared to be dehydrated per physical assessment and laboratory studies. Suspect volume depletion due to diuretic therapy and inadequate oral fluid intake. Blood pressures improved in the ED with volume resuscitation; did not require pressor support. Presentation atypical for COVID-19 and no known contacts. SARS-CoV-2 PCR negative. Received IV fluids with improvement of hemodynamics. Held diuretic therapy. Discontinued propranolol. Continue metoprolol with hold parameters. (2) Bradycardia: Chronic atrial fibrillation, rate-controlled. Ventricular rate in the ED mostly in the 50s, but sometimes dipping down to 30s and 40s. Medications include metoprolol succinate, propranolol, digoxin. Clarified with sister why patient is receiving 2 beta-blockers metoprolol for AF and hypertension, propranolol for tremor. Propranolol has not demonstrated any apparent benefit, so will stop it. Digoxin level 0.7. Discussed with Cardiology. Stopped digoxin. Rate improved. Continue metoprolol succinate with hold parameters. (3) Respiratory failure with hypoxia: Chronic hypoxic respiratory failure on nocturnal O2 at 2 L/min. Chronic respiratory failure probably secondary to COPD +/- sleep apnea +/- obesity hypoventilation syndrome. Marked hypoxia with O2 saturations in the 70s in the field. Oxygenation improved with nonrebreather and transitioned to oxymask. ABG ? with nonrebreather demonstrated a PO2 of 372, PCO2 55, bicarb 31, pH of 7.36. Acute hypoxic respiratory failure superimposed on chronic hypoxic respiratory failure plus or minus probable chronic hypercapnic respiratory failure. No apparent pneumonia or CHF on chest x-ray. History of pulmonary embolism, but PE unlikely with supratherapeutic INR on warfarin. COVID-19 ruled out. Now oxygenating well on RA. Continue nocturnal O2. (4) AMS (altered mental status): Very lethargic upon presentation to ED. Noted to be hypoxic in the field. Has possible UTI. Probable metabolic and/or hypoxic encephalopathy. Mental status improved. No focal findings on neurologic exam. (5) Diastolic CHF: History of left ventricular diastolic heart failure. No apparent CHF on admission chest x-ray and patient appeared to be volume depleted. Holding diuretics. No CHF on follow-up chest x-ray 02/12 . Follow cardiac status, weights, etc. Titrate diuretics- resume furosemide 80 mg daily. Management discussed with Cardiology for coordination of care. (6) Atrial fibrillation: Chronic atrial fibrillation, rate controlled currently with metoprolol, propranolol, digoxin. Bradycardia as discussed above. Stopped digoxin and propranolol. Continue metoprolol succinate with hold parameters. Continue anticoagulation with warfarin. Management discussed with Cardiology for coordination of care. (7) Hypertension: Hypotensive at time of admission. Hemodynamics improved with fluid resuscitation. Continue metoprolol with hold parameters. Follow and titrate therapy. (8) COPD (chronic obstructive pulmonary disease): Bronchodilators as needed. Titrate supplemental oxygen. (9) GERD (gastroesophageal reflux disease): Continue famotidine. (10) Acute kidney injury: Serum creatinine 1.73 compared to recent baseline of 1.2-1.4. BUN elevated as well. Acute kidney injury superimposed on CKD stage III. Suspected acute kidney injury secondary to dehydration/volume depletion. Received IV fluids. Creatinine today = 1.16. Follow. (11) Hypokalemia: K today = 3.6. Replace. Follow. (12) DM type 2 (diabetes mellitus, type 2): History of diabetes mellitus type 2. Currently diet controlled. Hemoglobin A1c = 5.8. Random blood sugar in ED 152. FBS today = 117. (13) Hypothyroidism: TSH slightly elevated (4.69) in setting of acute illness. TSH was normal in December. Continue current dose of levothyroxine. (14) Hyperuricemia: Continue allopurinol. (15) Anemia: Hemoglobin 9.6 compared to 8.6 on 02/03/2020. Hemoglobin was 12.7 on 01/22/2020 when she presented with significant bleeding from traumatic hematoma of left lower extremity. Acute blood loss anemia secondary to recent blood loss. Iron replacement. Follow H&H. (16) Open wound of left lower leg: Wound left lower extremity secondary to traumatic hematoma a few weeks ago. No overt signs of wound infection. Wound Care Team consulted to continue management. (17) Urinary tract infection: Admission UA showed 1+ leukocyte esterase, > 30 WBC's, 5-10 hyaline casts, no bacteria. Urine culture growing > 100,000 CFU Strep sp. = Enterococcus faecalis. No fever or urinary symptoms. Normal temperature, WBC, lactate, procalcitonin make sepsis unlikely. Uncertain whether bacteruria represents infection or colonization, but best to treat given clinical presentation. Received a few doses of IV vancomycin. Change to IV ampicillin per sensitivities. (18) Chronic pain: Chronic musculoskeletal pain + more recent pain from leg injury. May be having confusion / lethargy from meds. Titrate analgesics. (19) Polypharmacy: Patient taking about 27 scheduled meds and several PRN's. May be having adverse events due to polypharmacology. Stop or decrease meds as able. On propranolol for tremor. Also on metoprolol. Presented with hypotension and bradycardia. No apparent benefit. DC. On trazodone in a.m. + HS. Try to DC morning dose. On pregabalin which can cause confusion and lethargy- decrease dose. ROSEY + volume depletion on 3 diuretics. Try to DC spironolactone + metolazone (although ongoing titration may be necessary). On digoxin for rate control of AF. Bradycardic at time of admission. CHF is diastolic. DC dig if ventricular rate adequately controlled. Scheduled guaifenesin BID, but no chest congestion. Try to DC. May use PRN. On glucosamine-chondroitin for arthritis, but controlled studies have not demonstrated any benefit. Will DC if OK with patient. (20) Macrocytosis: MCV = 102. TSH essentially normal. B12, folate normal. (21) Hu catheter in place: Hu cath placed in ED. Removed 02/13. (22) DVT prophylaxis: On chronic warfarin therapy for atrial fibrillation and history of pulmonary embolism. Continue warfarin. Ambulate as able. (23) Do not resuscitate status: DNR status discussed/confirmed with patient and sister. (24) Discharge planning issues: Anticipated return to [facility] when medically stable. Sister Kate given update this morning by phone. Admission and Anticipated Discharge Date Admission Date: February 12, 2020 Subjective Recheck for multiple problems. Patient seen in their room around 1120. No fever. Minimal cough. No SOB. Pain fairly well-controlled. Feeling anxious today. Review of Systems: Constitutional- no fever. Cardiac- no chest pain. Pulmonary- as noted above. GI- no nausea, vomiting, diarrhea, melena, hematochezia. - voiding without difficulty. Otherwise, as noted above. Physical Exam Constitutional: WD/WN, vitals as above no acute distress Eyes: + anicteric sclerae Respiratory: no respiratory distress Auscultation: + wheezes (mild) Cardiovascular: Rate/Rhythm: + irregularly irregular Heart Sounds: no gallop, no murmur and no cardiac rub Vessels: + JVD Extremities: + edema (trace pretibial); no calf tenderness Gastrointestinal (Abdomen): normal bowel sounds, soft, nontender, no hepatosplenomegaly Musculoskeletal: Extremities: no cyanosis Psychiatric: Orientation: alert Results & Data Results & Data ([facility]) Vital Signs (Past 12 Hours) Vital Signs Temp Pulse Pulse Resp BP Pulse Ox 02/15/20 15:33 36.7 C 88 18 106/68 97 02/15/20 11:58 36.2 C L 74 18 96/60 L 93 02/15/20 11:02 84 Laboratory Results Laboratory Results - last 24 hr 02/15/20 02/15/20 02/15/20 06:11 06:11 06:11 WBC 8.33 RBC 2.84 L Hgb 9.4 L Hct 28.8 L MCV 101.4 H MCH 33.1 MCHC 32.6 RDW Std Deviation 62.5 H RDW Coeff of Kenneth 16.9 H Plt Count 308 MPV 9.8 PT INR Sodium 141 Potassium 3.6 D Chloride 109 H Carbon Dioxide 26 Anion Gap 6.0 BUN 54 H Creatinine 1.16 Est Cr Clr Drug Dosing 50.1 Est GFR ( Amer) 52.2 Est GFR (Non-Af Amer) 45.1 BUN/Creatinine Ratio 46.8 H Glucose 117 H Calcium 8.9 Magnesium 2.2 Ammonia 26.8 02/15/20 07:37 WBC RBC Hgb Hct MCV MCH MCHC RDW Std Deviation RDW Coeff of Kenneth Plt Count MPV PT 18.2 H INR 1.8 H Sodium Potassium Chloride Carbon Dioxide Anion Gap BUN Creatinine Est Cr Clr Drug Dosing Est GFR ( Amer) Est GFR (Non-Af Amer) BUN/Creatinine Ratio Glucose Calcium Magnesium Ammonia Microbiology 05/14/20 10:10 Blood Aerobic Blood Culture - Preliminary No growth in Aerobic bottle after 48 hours. 02/12/20 10:10 Blood Anaerobic Blood Culture - Final 02/12/20 10:05 Blood Aerobic Blood Culture - Preliminary No growth in Aerobic bottle after 48 hours. 02/12/20 10:05 Blood Anaerobic Blood Culture - Preliminary No growth in Anaerobic bottle after 48 hours. 02/12/20 10:30 Urine,Clean Catch Urine Culture - Final Enterococcus faecalis (1) Atrial fibrillation Atrial fibrillation type: unspecified Qualified Code(s): I48.91 - Unspecified atrial fibrillation
[2020-02-15] MEDS: TRAZODONE HCL 50 MG TAB PO SCH (20:44)
[2020-02-15] MEDS: MONTELUKAST SODIUM 10 MG TABLET PO SCH (20:46)
[2020-02-16] MEDS: LEVOTHYROXINE SODIUM 75 MCG TABLET PO SCH (06:04)
[2020-02-16] MEDS: AMPICILLIN 2,000 MG in SODIUM CHLOR 0.9% AD-VAN 100 ML IV SCH ×3 (06:04→16:54)
[2020-02-16 07:38] LABS: Hematocrit (blood only) 33.1 % (37-47); Hemoglobin 10.7 g/dL (12.0-16.0); Mean Corpuscular Hemoglobin 32.6 pg (25-34); Mean Corpuscular Hgb Conc 32.3 g/dL (32-36); Mean Corpuscular Volume 100.9 fL (80-100); Mean Platelet Volume 9.7 fL (7.4-10.4); Nucleated RBC # (auto) 0.07 K/uL (0-0); Nucleated RBC % (auto) 0.6 %; Platelet Count 313 K/uL (130-400); RDW Standard Deviation 62.6 fL (36.4-46.3); Red Blood Count 3.28 M/uL (4.2-5.4)
[2020-02-16 07:48] LABS: INR 1.7 (0.9-1.1); Prothrombin Time 17.9 Seconds (9.0-12.0)
[2020-02-16] MEDS ORDERED: WARFARIN SOD 5 MG TAB PO ONE (07:51)
[2020-02-16 08:03] LABS: BUN Creatinine Ratio 39.9 (10-20); Calcium 9.9 mg/dl (8.5-10.1); Creatinine Clr Calc Pharmacy 58.5 ml/min; Est GFR (African American) 63.3; Est GFR (Non-African American) 54.6; Potassium 3.4 mmol/L (3.5-5.1)
[2020-02-16] MEDS: METOPROLOL SUCC 50MG EXT REL TAB PO SCH ×2 (08:23→21:28)
[2020-02-16] MEDS: FUROSEMIDE 80 MG TAB PO SCH (08:23)
[2020-02-16] MEDS: POTASSIUM CHLORIDE 20 MEQ TABCR PO SCH ×3 (08:24→21:28)
[2020-02-16] MEDS: SENNA 8.6 MG TAB PO SCH ×2 (08:24→21:27)
[2020-02-16] MEDS: DULOXETINE HCL 60 MG CAP PO SCH (08:25)
[2020-02-16] MEDS: allopurinoL 100 MG TAB PO SCH (08:25)
[2020-02-16] MEDS: SUCRALFATE 1 GM TAB PO SCH ×2 (08:25→21:25)
[2020-02-16] MEDS: FLUTICASONE/VILANTEROL 100/25MCG 14 PUFFS/INHALER INH SCH (08:25)
[2020-02-16] MEDS: UMECLIDINIUM BROMIDE 62.5MCG/BLISTER 7 PUFFS/INHALER INH SCH (08:25)
[2020-02-16] MEDS: FAMOTIDINE 20 MG TAB PO SCH ×2 (08:25→21:27)
[2020-02-16] MEDS: ARTIFICIAL TEARS OP SCH ×3 (08:26→21:31)
[2020-02-16] MEDS: MICONAZOLE NITRATE POWDER 43 GM TOP SCH ×3 (08:27→21:26)
[2020-02-16] MEDS: ACETAMINOPHEN 500 MG TAB PO PRN (08:34)
[2020-02-16] MEDS: CHECK FENTANYL PATCH PLACEMENT SCH ×3 (08:36→16:54)
[2020-02-16] MEDS: DOCUSATE SODIUM 100 MG CAP PO SCH ×2 (08:40→21:26)
[2020-02-16] MEDS: PREGABALIN 25 MG CAP PO SCH ×3 (08:46→21:31)
[2020-02-16] MEDS ORDERED: LORazepam 0.5 MG/1 ML VIAL IV ONE (11:20)
--- NOTE | 2020-02-16 11:39 | XRay Report ---
XR chest 1V portable CLINICAL HISTORY: cough, CHF COMPARISON STUDY: Chest CT July 03, 2019. Chest radiograph February 13, 2020. FINDINGS: Incidental note is made of severe osteoarthritis of the glenohumeral joint. Right hilar pro minence is unchanged. There is moderate cardiomegaly without evidence for pulmonary edema. No pneumot horax is noted. There is a trace right pleural effusion. Old right rib fractures are noted. IMPRESSION: 1. No evidence for pulmonary edema. 2. Trace right pleural effusion. 3. Minimal left basilar opacity suggestive of atelectasis. ACT 112: Negative or not required by law. Electronically signed by: Refugio Del Cid M.D. 02/16/2020 11:37 AM
[2020-02-16] MEDS: fentaNYL 25 MCG/HR TDSY TD SCH (11:45)
--- NOTE | 2020-02-16 13:26 | Surgery Consultation ---
Date of Consultation February 16, 2020 Assessment & Plan (1) Open wound of left lower leg: Discussed with patient, Pooja HENRY and Dr. Willingham that given recent change in medical status, and rapid healing of the wound, it might be better to consider staged epidermal grafting at the wound center to avoid need for OR. Discontinue the wound VAC as wound is superficial now, dress with Aquacel or Kaltostat as wound is still quite wet. Follow up at wound center post discharge. History of Present Illness Attending Physician: Ramon Floyd MD History of Present Illness I am asked to see Mrs. Crane for her LLE wound due to hematoma caused by a fall on Coumadin. I debrided the wound at bedside during her recent hospitalization and she was scheduled to see me at the [facility] on the day she was admitted. She had been treated with a wound VAC and for the last 3 days has had Aquacel AG and Optifoam due to elevated INR. Plan prior to this hospitalization was [facility] in the OR. She reports pain at the site today. Allergies Allergy/AdvReac Type Severity Reaction Status Date / Time meperidine [From Demerol] Allergy Unknown ON Verified 02/12/20 11:18 [facility] LIST sulfite Allergy On Unverified 02/12/20 11:18 Hill's list morphine AdvReac Intermediate vomiting Verified 02/12/20 11:18 oxycodone AdvReac Intermediate vomit blood Verified 02/12/20 11:18 propoxyphene AdvReac Intermediate abd vomit Verified 02/12/20 11:18 blood tramadol AdvReac Intermediate vomiting Verified 12/25/19 23:09 Bactrim AdvReac Mild GI SYMPTOMS Verified 03/06/18 21:06 codeine AdvReac Mild vomiting Verified 02/12/20 11:18 olmesartan AdvReac Mild GI SYMPTOMS Verified 12/25/19 23:09 Sulfa (Sulfonamide AdvReac Mild GI SYMPTOMS Verified 01/22/20 11:35 Antibiotics) sulfamethoxazole AdvReac Mild GI SYMPTOMS Verified 01/22/20 11:35 trimethoprim AdvReac Mild GI SYMPTOMS Verified 01/22/20 11:35 carisoprodol AdvReac Unknown GI SYMPTOMS Verified 12/10/19 14:37 Home Medications Home Medications Medication Instructions Recorded Confirmed Type acetaminophen [Tylenol] 650 mg PO Q4H PRN MDD 3,000 mg 11/01/18 02/12/20 History allopurinol [Zyloprim] 200 mg PO QAM 11/01/18 02/12/20 History docusate sodium [Colace] 100 mg PO BID 11/01/18 02/12/20 History duloxetine [Cymbalta] 60 mg PO QAM 11/01/18 02/12/20 History levothyroxine [Synthroid] 75 mcg PO DAILYBB 11/01/18 02/12/20 History meclizine [Dramamine Less Drowsy] 25 mg PO TID PRN 11/01/18 02/12/20 History melatonin 10 mg PO HS 11/01/18 02/12/20 History montelukast [Singulair] 10 mg PO QPM 11/01/18 02/12/20 History pregabalin [Lyrica] 50 mg PO TID 11/01/18 02/12/20 History sucralfate [Carafate] 1 g PO AMPM 11/01/18 02/12/20 History simethicone [Gas Relief 180 mg PO DAILY PRN 12/27/18 02/12/20 History (simethicone)] Incruse Ellipta 1 inh INHALATION QAM 01/11/19 02/12/20 History sennosides [senna] 8.6 mg PO BID 01/11/19 02/12/20 History cholecalciferol (vitamin D3) 25 1,000 units PO QAM 06/11/19 02/12/20 History mcg (1,000 unit) capsule digoxin 125 mcg (0.125 mg) tablet 125 mcg PO MOWEFR 06/11/19 02/12/20 History spironolactone 25 mg tablet 25 mg PO QAM tab 06/11/19 02/12/20 History trazodone 50 mg tablet 25 mg PO QAM 06/11/19 02/12/20 History buspirone 10 mg PO BID 07/09/19 02/12/20 History metoprolol succinate [Toprol XL] 100 mg PO BID 07/09/19 02/12/20 History Cepacol Sore Throat (nataliia-men) 1 huan PO Q2H PRN 12/25/19 02/12/20 History famotidine [Pepcid] 20 mg PO BID 12/25/19 02/12/20 History fentanyl [Duragesic] 25 mcg TOPICAL [id number] 12/25/19 02/12/20 History fluticasone propion-salmeterol 1 ea INHALATION BID 12/25/19 02/12/20 History [Advair Diskus] furosemide [Lasix] 80 mg PO QAM 12/25/19 02/12/20 History guaifenesin [Mucinex] 600 mg PO BID 12/25/19 02/12/20 History guaifenesin [Siltussin SA] 200 mg PO Q4H PRN 12/25/19 02/12/20 History metolazone 2.5 mg PO WESA 12/25/19 02/12/20 History trazodone 50 mg PO HS 12/25/19 02/12/20 History Refresh Classic (PF) 2 drp OPB TID 01/22/20 02/12/20 History glucosamine-chondroitin 1 tab PO TID 01/22/20 02/12/20 History levalbuterol HCl [Xopenex] 0.63 mg INHALATION Q4H PRN 01/22/20 02/12/20 History warfarin [Coumadin] 2 mg PO MOWEFR 01/22/20 02/12/20 History acetaminophen [Tylenol Extra 1,000 mg PO Q8H PRN 02/12/20 02/12/20 History Strength] betamethasone dipropionate 1 applic TOPICAL BID PRN 02/12/20 02/12/20 History bisacodyl [Dulcolax (bisacodyl)] 10 mg SC DAILY PRN 02/12/20 02/12/20 History magnesium hydroxide [Milk of 30 ml PO DAILY PRN 02/12/20 02/12/20 History Magnesia] miconazole nitrate [Micro-Guard] 1 applic TOPICAL TID 02/12/20 02/12/20 History ondansetron HCl [Zofran] 8 mg PO Q8H PRN 02/12/20 02/12/20 History oxycodone [Roxicodone] 10 mg PO MOWEFR 02/12/20 02/12/20 History propranolol 10 mg PO TID 02/12/20 02/12/20 History sodium phosphates [Enema] 118 ml SC DAILY PRN 02/12/20 02/12/20 History tramadol [Ultram] 50 mg PO Q6H PRN MDD 300 mg 02/12/20 02/12/20 History warfarin [Coumadin] 1 mg PO SUTUTHSA 02/12/20 02/12/20 History [id number] 10 g PO BID 02/12/20 02/12/20 History [ArgiMent AT] Patient History Medical History Acute kidney injury superimposed on CKD Anxiety (Chronic) Arthritis (Chronic) Asthma (Chronic) Atrial fibrillation (Chronic) Chronic back pain (Chronic) Chronic gastritis (Chronic) Chronic pain (Chronic) Chronic respiratory failure (Acute) CKD (chronic kidney disease), stage III (Chronic) COPD (chronic obstructive pulmonary disease) Diastolic CHF (Chronic) On 02/12/16 22:20 Ellie Herson wrote "per echo 09/30/15- EF 60-65%, mod LVH, mod MR, mod TR, dilated RV" DJD (degenerative joint disease), multiple sites (Chronic) DM type 2 (diabetes mellitus, type 2) (Chronic) DM2 (diabetes mellitus, type 2) (Chronic) Generalized anxiety disorder (Chronic) GERD (gastroesophageal reflux disease) (Chronic) History of pulmonary embolism (Chronic) HTN (hypertension) (Chronic) Hypertension (Chronic) Hyperuricemia (Chronic) Hypothyroidism (Chronic) Intertrigo Obesity (BMI 30-39.9) (Chronic) Stenosis of right carotid artery (Chronic) Surgical History History of hernia repair (Chronic) Status post cholecystectomy (Chronic) "Dr. Beavers [facility] 12/27/17" Family History Father Hypertension Diabetes Social History Preferred Language: German Communication Ability: Impaired Communication Ability Comment: lethargic [employer] Required: No Beliefs That Will Affect Care: None marital status: / Current Living Situation: [facility] Current Living Situation Comment: [place] Other Information That Helps Us Care for You: No Feels Safe at Home: Yes Safety Concerns: Feels Safe At This Time Smoking Status: Former smoker Tobacco Type: cigarettes ; Do You Dip or Chew Tobacco: No ; Second Hand Exposure: No ; Tobacco Cessation Education Requested by Patient: No Hx Alcohol Use: No Hx Substance Use: No Review of Systems Integumentary: as per Subjective / HPI Physical Exam Constitutional: WD/WN, vitals as above Eyes: PERRL, conjunctivae normal, anicteric sclerae Respiratory: + cough Skin: no rashes, warm and dry normal turgor large superficial left posterior lower leg wound, 100% granulated, without evidence of infection Psychiatric: Orientation: alert, oriented to person and cooperative Results & Data Vital Signs (Past 12 Hours) Vital Signs Temp Pulse Pulse Resp BP Pulse Ox 02/16/20 10:54 98.2 F 108 H 24 133/82 95 02/16/20 08:24 125 H 02/16/20 07:39 99.5 F 97 H 22 141/81 H 95 02/16/20 04:32 98.4 F 113 H 22 156/93 H 94 PG Care Time/CCT Total # of Minutes Spent Total Time Spent with Patient: Total time spent is greater than 50% in coordination of care (as documented) at patient's floor/unit and/or counseling patient: Coding Level of Care Code 33873 Inpt Consult Level 2 Diagnoses Open wound of left lower leg S81.802D Encounter type: subsequent encounter (1) Open wound of left lower leg Encounter type: subsequent encounter Qualified Code(s): S81.802D - Unspecified open wound, left lower leg, subsequent encounter
--- NOTE | 2020-02-16 14:15 | Wound Consultation ---
Date of Consultation February 16, 2020 Assessment & Plan (1) Hematoma of left lower extremity: Wound is improving. No debridement was required. Wound is starting to epithelialize. Would consider puracol once drainage decreases. In the meantime we dressed the wound with Kaltostat. After discharge could consider staged epidermal grafting. We will continue to follow. Thank you for limited participate in the care of this patient. Please not hesitate to call with any questions. History of Present Illness Attending Physician: Ramon Floyd MD History of Present Illness This is a 79-year-old female with a history of diastolic heart failure, atrial fibrillation on Coumadin, hypertension, COPD, GERD, type 2 diabetes, hypothyroidism, hyperuricemia, anemia chronic hypoxic respiratory failure on home O2 2 L Per nasal cannula who presents to the wound clinic for follow-up of hematoma of her left leg. Patient been dressing the wound with a wound VAC. She was debrided of ulcers in the hospital by Dr. Roldan. On presentation patient is hypoxic with an altered mental status and hypotensive. Patient was put on a nonrebreather and ambulance was called. Patient was transferred to the emergency department where she was admitted for the same. I am asked to see the patient in follow-up of left leg hematoma. Patient is been dressed the wound with Kaltostat as her INR was supratherapeutic and was therefore unable to place the wound VAC. Allergies Allergy/AdvReac Type Severity Reaction Status Date / Time meperidine [From Demerol] Allergy Unknown ON Verified 02/12/20 11:18 HILL LIST sulfite Allergy On Unverified 02/12/20 11:18 Hill's list morphine AdvReac Intermediate vomiting Verified 02/12/20 11:18 oxycodone AdvReac Intermediate vomit blood Verified 02/12/20 11:18 propoxyphene AdvReac Intermediate abd vomit Verified 02/12/20 11:18 blood tramadol AdvReac Intermediate vomiting Verified 12/25/19 23:09 Bactrim AdvReac Mild GI SYMPTOMS Verified 03/06/18 21:06 codeine AdvReac Mild vomiting Verified 02/12/20 11:18 olmesartan AdvReac Mild GI SYMPTOMS Verified 12/25/19 23:09 Sulfa (Sulfonamide AdvReac Mild GI SYMPTOMS Verified 01/22/20 11:35 Antibiotics) sulfamethoxazole AdvReac Mild GI SYMPTOMS Verified 01/22/20 11:35 trimethoprim AdvReac Mild GI SYMPTOMS Verified 01/22/20 11:35 carisoprodol AdvReac Unknown GI SYMPTOMS Verified 12/10/19 14:37 Home Medications Home Medications Medication Instructions Recorded Confirmed Type acetaminophen [Tylenol] 650 mg PO Q4H PRN MDD 3,000 mg 11/01/18 02/12/20 History allopurinol [Zyloprim] 200 mg PO QAM 11/01/18 02/12/20 History docusate sodium [Colace] 100 mg PO BID 11/01/18 02/12/20 History duloxetine [Cymbalta] 60 mg PO QAM 11/01/18 02/12/20 History levothyroxine [Synthroid] 75 mcg PO DAILYBB 11/01/18 02/12/20 History meclizine [Dramamine Less Drowsy] 25 mg PO TID PRN 11/01/18 02/12/20 History melatonin 10 mg PO HS 11/01/18 02/12/20 History montelukast [Singulair] 10 mg PO QPM 11/01/18 02/12/20 History pregabalin [Lyrica] 50 mg PO TID 11/01/18 02/12/20 History sucralfate [Carafate] 1 g PO AMPM 11/01/18 02/12/20 History simethicone [Gas Relief 180 mg PO DAILY PRN 12/27/18 02/12/20 History (simethicone)] Incruse Ellipta 1 inh INHALATION QAM 01/11/19 02/12/20 History sennosides [senna] 8.6 mg PO BID 01/11/19 02/12/20 History cholecalciferol (vitamin D3) 25 1,000 units PO QAM 06/11/19 02/12/20 History mcg (1,000 unit) capsule digoxin 125 mcg (0.125 mg) tablet 125 mcg PO MOWEFR 06/11/19 02/12/20 History spironolactone 25 mg tablet 25 mg PO QAM tab 06/11/19 02/12/20 History trazodone 50 mg tablet 25 mg PO QAM 06/11/19 02/12/20 History buspirone 10 mg PO BID 07/09/19 02/12/20 History metoprolol succinate [Toprol XL] 100 mg PO BID 07/09/19 02/12/20 History Cepacol Sore Throat (nataliia-men) 1 huan PO Q2H PRN 12/25/19 02/12/20 History famotidine [Pepcid] 20 mg PO BID 12/25/19 02/12/20 History fentanyl [Duragesic] 25 mcg TOPICAL [id number] 12/25/19 02/12/20 History fluticasone propion-salmeterol 1 ea INHALATION BID 12/25/19 02/12/20 History [Advair Diskus] furosemide [Lasix] 80 mg PO QAM 12/25/19 02/12/20 History guaifenesin [Mucinex] 600 mg PO BID 12/25/19 02/12/20 History guaifenesin [Siltussin SA] 200 mg PO Q4H PRN 12/25/19 02/12/20 History metolazone 2.5 mg PO WESA 12/25/19 02/12/20 History trazodone 50 mg PO HS 12/25/19 02/12/20 History Refresh Classic (PF) 2 drp OPB TID 01/22/20 02/12/20 History glucosamine-chondroitin 1 tab PO TID 01/22/20 02/12/20 History levalbuterol HCl [Xopenex] 0.63 mg INHALATION Q4H PRN 01/22/20 02/12/20 History warfarin [Coumadin] 2 mg PO MOWEFR 01/22/20 02/12/20 History acetaminophen [Tylenol Extra 1,000 mg PO Q8H PRN 02/12/20 02/12/20 History Strength] betamethasone dipropionate 1 applic TOPICAL BID PRN 02/12/20 02/12/20 History bisacodyl [Dulcolax (bisacodyl)] 10 mg DC DAILY PRN 02/12/20 02/12/20 History magnesium hydroxide [Milk of 30 ml PO DAILY PRN 02/12/20 02/12/20 History Magnesia] miconazole nitrate [Micro-Guard] 1 applic TOPICAL TID 02/12/20 02/12/20 History ondansetron HCl [Zofran] 8 mg PO Q8H PRN 02/12/20 02/12/20 History oxycodone [Roxicodone] 10 mg PO MOWEFR 02/12/20 02/12/20 History propranolol 10 mg PO TID 02/12/20 02/12/20 History sodium phosphates [Enema] 118 ml DC DAILY PRN 02/12/20 02/12/20 History tramadol [Ultram] 50 mg PO Q6H PRN MDD 300 mg 02/12/20 02/12/20 History warfarin [Coumadin] 1 mg PO SUTUTHSA 02/12/20 02/12/20 History vsyf-[id number]-[id number]-C-Zn-Cu-tos 10 g PO BID 02/12/20 02/12/20 History [ArgiMent AT] Patient History Medical History Acute kidney injury superimposed on CKD Anxiety (Chronic) Arthritis (Chronic) Asthma (Chronic) Atrial fibrillation (Chronic) Chronic back pain (Chronic) Chronic gastritis (Chronic) Chronic pain (Chronic) Chronic respiratory failure (Acute) CKD (chronic kidney disease), stage III (Chronic) COPD (chronic obstructive pulmonary disease) Diastolic CHF (Chronic) On 02/12/16 22:20 Ellie Bains wrote "per echo 09/30/15- EF 60-65%, mod LVH, mod MR, mod TR, dilated RV" DJD (degenerative joint disease), multiple sites (Chronic) DM type 2 (diabetes mellitus, type 2) (Chronic) DM2 (diabetes mellitus, type 2) (Chronic) Generalized anxiety disorder (Chronic) GERD (gastroesophageal reflux disease) (Chronic) History of pulmonary embolism (Chronic) HTN (hypertension) (Chronic) Hypertension (Chronic) Hyperuricemia (Chronic) Hypothyroidism (Chronic) Intertrigo Obesity (BMI 30-39.9) (Chronic) Stenosis of right carotid artery (Chronic) Surgical History History of hernia repair (Chronic) Status post cholecystectomy (Chronic) "Dr. Beavers [facility] 12/27/17" Family History Father Hypertension Diabetes Social History Preferred Language: Dominican Communication Ability: Impaired Communication Ability Comment: lethargic Continuous Improvement Consultant Required: No Beliefs That Will Affect Care: None marital status: / Current Living Situation: Snf Current Living Situation Comment: [facility] Other Information That Helps Us Care for You: No Feels Safe at Home: Yes Safety Concerns: Feels Safe At This Time Smoking Status: Former smoker Tobacco Type: cigarettes ; Do You Dip or Chew Tobacco: No ; Second Hand Exposure: No ; Tobacco Cessation Education Requested by Patient: No Hx Alcohol Use: No Hx Substance Use: No Review of Systems Review of Systems: All systems reviewed & are unremarkable except as noted in HPI & below Physical Exam Constitutional: WD/WN, vitals as above Eyes: PERRL, conjunctivae normal, anicteric sclerae ENMT: external ear and nose normal, oropharynx normal Respiratory: Auscultation: + rhonchi Skin: Wound measuring as recorded in nursing documentation. Wound is improving and is now up to surface. Wound appears to be beginning to epithelial ize. There is still large amount of drainage. Neurologic: awake; not confused Psychiatric: A+Ox3, euthymic affect Results & Data Vital Signs (Past 12 Hours) Vital Signs Temp Pulse Pulse Resp BP Pulse Ox 02/16/20 10:54 36.8 C 108 H 24 133/82 95 02/16/20 08:24 125 H 02/16/20 07:39 37.5 C 97 H 22 141/81 H 95 02/16/20 04:32 36.9 C 113 H 22 156/93 H 94 PG Care Time/CCT Total # of Minutes Spent Total Time Spent with Patient: Total time spent is greater than 50% in coordination of care (as documented) at patient's floor/unit and/or counseling patient: Coding Level of Care Code 85660 Inpt Consult Level 3 Diagnoses Hematoma of left lower extremity S80.12XA Encounter type: initial encounter (1) Hematoma of left lower extremity Encounter type: initial encounter Qualified Code(s): S80.12XA - Contusion of left lower leg, initial encounter
--- NOTE | 2020-02-16 20:34 | Hospitalist Progress Note ---
Date of Service February 16, 2020 Assessment & Plan (1) Hypotension: Presented with hypotension with systolic blood pressures in the 70s and 80s in the field and in the ED. Sepsis was considered, but no definite source of infection at time of presentation. UA showed 1+ leukocyte esterase, WBC's, no bacteria. Urine C&S positive as discussed below. Normal WBC, lactate, procalcitonin made sepsis unlikely. Nevertheless, felt prudent to check cultures and start empiric antibiotic therapy. Received IV vancomycin and cefepime in ED- will continue empiric coverage for 48 hours pending culture results. History of pulmonary embolism, but acute PE unlikely with supratherapeutic INR. Patient appeared to be dehydrated per physical assessment and laboratory studies. Suspect volume depletion due to diuretic therapy and inadequate oral fluid intake. Blood pressures improved in the ED with volume resuscitation; did not require pressor support. Presentation atypical for COVID-19 and no known contacts. SARS-CoV-2 PCR negative. Received IV fluids with improvement of hemodynamics. Held diuretic therapy. Discontinued propranolol. Hemodynamically stable. Continue metoprolol with hold parameters. (2) Bradycardia: Chronic atrial fibrillation, rate-controlled. Ventricular rate in the ED mostly in the 50s, but sometimes dipping down to 30s and 40s. Medications include metoprolol succinate, propranolol, digoxin. Clarified with sister why patient is receiving 2 beta-blockers metoprolol for AF and hypertension, propranolol for tremor. Propranolol has not demonstrated any apparent benefit, so will stop it. Digoxin level 0.7. Discussed with Cardiology. Stopped digoxin. Rate improved. Continue metoprolol succinate with hold parameters. (3) Respiratory failure with hypoxia: Chronic hypoxic respiratory failure on nocturnal O2 at 2 L/min. Chronic respiratory failure probably secondary to COPD +/- sleep apnea +/- obesity hypoventilation syndrome. Marked hypoxia with O2 saturations in the 70s in the field. Oxygenation improved with nonrebreather and transitioned to oxymask. ABG ? with nonrebreather demonstrated a PO2 of 372, PCO2 55, bicarb 31, pH of 7.36. Acute hypoxic respiratory failure superimposed on chronic hypoxic respiratory failure plus or minus probable chronic hypercapnic respiratory failure. No apparent pneumonia or CHF on chest x-ray. History of pulmonary embolism, but PE unlikely with supratherapeutic INR on warfarin. COVID-19 ruled out. Now oxygenating well on RA. Continue nocturnal O2. (4) AMS (altered mental status): Very lethargic upon presentation to ED. Noted to be hypoxic in the field. Has possible UTI. Probable metabolic and/or hypoxic encephalopathy. Mental status improved. No focal findings on neurologic exam. (5) Diastolic CHF: History of left ventricular diastolic heart failure. No apparent CHF on admission chest x-ray and patient appeared to be volume depleted. Holding diuretics. No CHF on follow-up chest x-ray 02/12 . Follow cardiac status, weights, etc. Titrate diuretics- resumed furosemide 80 mg daily. Management discussed with Cardiology for coordination of care. (6) Atrial fibrillation: Chronic atrial fibrillation, rate controlled currently with metoprolol, propranolol, digoxin. Bradycardia as discussed above. Stopped digoxin and propranolol. Continue metoprolol succinate with hold parameters. Continue anticoagulation with warfarin. Management discussed with Cardiology for coordination of care. (7) Hypertension: Hypotensive at time of admission. Hemodynamics improved with fluid resuscitation. Continue metoprolol with hold parameters. Follow and titrate therapy. (8) COPD (chronic obstructive pulmonary disease): Bronchodilators as needed. Titrate supplemental oxygen. (9) GERD (gastroesophageal reflux disease): Continue famotidine. (10) Acute kidney injury: Serum creatinine 1.73 compared to recent baseline of 1.2-1.4. BUN elevated as well. Acute kidney injury superimposed on CKD stage III. Suspected acute kidney injury secondary to dehydration/volume depletion. Received IV fluids. Creatinine today = 0.99. Follow. (11) Hypokalemia: K as low as 3.0. Received replacement. K today = 3.4. Continue replacement. Follow. (12) DM type 2 (diabetes mellitus, type 2): History of diabetes mellitus type 2. Currently diet controlled. Hemoglobin A1c = 5.8. Random blood sugar in ED 152. FBS today = 141. (13) Hypothyroidism: TSH slightly elevated (4.69) in setting of acute illness. TSH was normal in December. Continue current dose of levothyroxine. (14) Hyperuricemia: Continue allopurinol. (15) Anemia: Hemoglobin 9.6 compared to 8.6 on 02/03/2020. Hemoglobin was 12.7 on 01/22/2020 when she presented with significant bleeding from traumatic hematoma of left lower extremity. Acute blood loss anemia secondary to recent blood loss. Iron replacement. Follow H&H. (16) Open wound of left lower leg: Wound left lower extremity secondary to traumatic hematoma a few weeks ago. No overt signs of wound infection. Wound Care Team consulted to continue management. (17) Urinary tract infection: Admission UA showed 1+ leukocyte esterase, > 30 WBC's, 5-10 hyaline casts, no bacteria. Urine culture growing > 100,000 CFU Strep sp. = Enterococcus faecalis. No fever or urinary symptoms. Normal temperature, WBC, lactate, procalcitonin make sepsis unlikely. Uncertain whether bacteruria represents infection or colonization, but best to treat given clinical presentation. Received a few doses of IV vancomycin. Change to IV ampicillin per sensitivities. (18) Chronic pain: Chronic musculoskeletal pain + more recent pain from leg injury. May be having confusion / lethargy from meds. Titrate analgesics. (19) Polypharmacy: Patient taking about 27 scheduled meds and several PRN's. May be having adverse events due to polypharmacology. Stop or decrease meds as able. On propranolol for tremor. Also on metoprolol. Presented with hypotension and bradycardia. No apparent benefit. DC. On trazodone in a.m. + HS. Try to DC morning dose. On pregabalin which can cause confusion and lethargy- decrease dose. ROSEY + volume depletion on 3 diuretics. Try to DC spironolactone + metolazone (although ongoing titration may be necessary). On digoxin for rate control of AF. Bradycardic at time of admission. CHF is diastolic. DC dig if ventricular rate adequately controlled. Scheduled guaifenesin BID, but no chest congestion. Try to DC. May use PRN. On glucosamine-chondroitin for arthritis, but controlled studies have not demonstrated any benefit. Will DC if OK with patient. (20) Macrocytosis: MCV = 102. TSH essentially normal. B12, folate normal. (21) Hu catheter in place: Hu cath placed in ED. Removed 02/13. (22) DVT prophylaxis: On chronic warfarin therapy for atrial fibrillation and history of pulmonary embolism. Continue warfarin. Ambulate as able. (23) Do not resuscitate status: DNR status discussed/confirmed with patient and sister. (24) Discharge planning issues: Anticipated return to [facility] when medically stable. Sister Kate given update today by phone. Admission and Anticipated Discharge Date Admission Date: February 12, 2020 Subjective Recheck for multiple problems. Patient seen in their room around 1100. Episode of retching this morning while working with PT. No fever. Minimal cough. No SOB. Review of Systems: Constitutional- no fever. Cardiac- no chest pain. Pulmonary- as noted above. GI- no nausea, vomiting, diarrhea, melena, hematochezia. - voiding without difficulty. Otherwise, as noted above. Physical Exam Constitutional: WD/WN, vitals as above no acute distress Eyes: + anicteric sclerae Respiratory: no respiratory distress Auscultation: + wheezes (mild) Cardiovascular: Rate/Rhythm: + irregularly irregular Heart Sounds: no gallop, no murmur and no cardiac rub Vessels: + JVD Extremities: + edema (trace pretibial); no calf tenderness Gastrointestinal (Abdomen): normal bowel sounds, soft, nontender, no hepatosplenomegaly Musculoskeletal: Head/Neck/Chest: neck supple Extremities: no cyanosis Skin: no rashes, warm and dry Psychiatric: Orientation: alert Results & Data Results & Data ([facility]) Vital Signs (Past 12 Hours) Vital Signs Temp Pulse Pulse Resp BP Pulse Ox 02/16/20 18:26 36.9 C 111 H 22 103/71 96 02/16/20 15:28 37.2 C 100 H 23 110/67 95 02/16/20 14:48 103 H 02/16/20 10:54 36.8 C 108 H 24 133/82 95 Laboratory Results Laboratory Results - last 24 hr 02/16/20 02/16/20 02/16/20 07:22 07:22 07:22 WBC 11.50 H RBC 3.28 L Hgb 10.7 L Hct 33.1 L MCV 100.9 H MCH 32.6 MCHC 32.3 RDW Std Deviation 62.6 H RDW Coeff of Kenneth 17.0 H Plt Count 313 MPV 9.7 Absolute Nucleated RBC 0.07 H Nucleated RBC % (auto) 0.6 PT 17.9 H INR 1.7 H Sodium 141 Potassium 3.4 L Chloride 106 Carbon Dioxide 25 Anion Gap 10.0 BUN 39 H Creatinine 0.99 Est Cr Clr Drug Dosing 58.5 Est GFR ( Amer) 63.3 Est GFR (Non-Af Amer) 54.6 BUN/Creatinine Ratio 39.9 H Glucose 141 H Calcium 9.9 Microbiology 02/12/20 10:10 Blood Aerobic Blood Culture - Preliminary No growth in Aerobic bottle after 48 hours. 02/12/20 10:10 Blood Anaerobic Blood Culture - Final 02/12/20 10:05 Blood Aerobic Blood Culture - Preliminary No growth in Aerobic bottle after 48 hours. 02/12/20 10:05 Blood Anaerobic Blood Culture - Preliminary No growth in Anaerobic bottle after 48 hours. 02/12/20 10:30 Urine,Clean Catch Urine Culture - Final Enterococcus faecalis (1) Atrial fibrillation Atrial fibrillation type: unspecified Qualified Code(s): I48.91 - Unspecified atrial fibrillation (2) Open wound of left lower leg Encounter type: subsequent encounter Qualified Code(s): S81.802D - Unspecified open wound, left lower leg, subsequent encounter
[2020-02-16] MEDS: MONTELUKAST SODIUM 10 MG TABLET PO SCH (21:27)
[2020-02-16] MEDS: TRAZODONE HCL 50 MG TAB PO SCH (21:30)
[2020-02-17] MEDS: AMPICILLIN 2,000 MG in SODIUM CHLOR 0.9% AD-VAN 100 ML IV SCH ×3 (01:20→16:48)
[2020-02-17] MEDS: CHECK FENTANYL PATCH PLACEMENT SCH ×3 (01:21→16:48)
[2020-02-17] MEDS: LEVOTHYROXINE SODIUM 75 MCG TABLET PO SCH (06:21)
[2020-02-17 07:24] LABS: Hematocrit (blood only) 34.8 % (37-47); Hemoglobin 11.3 g/dL (12.0-16.0); Mean Corpuscular Hemoglobin 33.1 pg (25-34); Mean Corpuscular Hgb Conc 32.5 g/dL (32-36); Mean Corpuscular Volume 102.1 fL (80-100); Mean Platelet Volume 10.1 fL (7.4-10.4); Nucleated RBC # (auto) 0.08 K/uL (0-0); Nucleated RBC % (auto) 0.7 %; Platelet Count 300 K/uL (130-400); RDW Coefficient of Variation 17.2 % (11.5-14.5); RDW Standard Deviation 63.5 fL (36.4-46.3); Red Blood Count 3.41 M/uL (4.2-5.4); White Blood Count 10.68 K/uL (4.8-10.8)
[2020-02-17 07:39] LABS: INR 2.1 (0.9-1.1); Prothrombin Time 21.1 Seconds (9.0-12.0)
[2020-02-17 07:44] LABS: BUN Creatinine Ratio 32.6 (10-20); Calcium 10.1 mg/dl (8.5-10.1); Creatinine Clr Calc Pharmacy 49.9 ml/min; Est GFR (African American) 52.2; Est GFR (Non-African American) 45.1; Potassium 3.6 mmol/L (3.5-5.1)
[2020-02-17] MEDS: UMECLIDINIUM BROMIDE 62.5MCG/BLISTER 7 PUFFS/INHALER INH SCH (08:19)
[2020-02-17] MEDS: ARTIFICIAL TEARS OP SCH ×3 (08:20→21:28)
[2020-02-17] MEDS: FLUTICASONE/VILANTEROL 100/25MCG 14 PUFFS/INHALER INH SCH (08:20)
[2020-02-17] MEDS: POTASSIUM CHLORIDE 20 MEQ TABCR PO SCH ×3 (08:21→21:31)
[2020-02-17] MEDS: METOPROLOL SUCC 50MG EXT REL TAB PO SCH ×2 (08:21→21:28)
[2020-02-17] MEDS: FAMOTIDINE 20 MG TAB PO SCH ×2 (08:22→21:29)
[2020-02-17] MEDS: SENNA 8.6 MG TAB PO SCH ×2 (08:22→21:28)
[2020-02-17] MEDS: SUCRALFATE 1 GM TAB PO SCH ×2 (08:22→21:30)
[2020-02-17] MEDS: allopurinoL 100 MG TAB PO SCH (08:23)
[2020-02-17] MEDS: DULOXETINE HCL 60 MG CAP PO SCH (08:24)
[2020-02-17] MEDS: DOCUSATE SODIUM 100 MG CAP PO SCH ×2 (08:24→21:35)
[2020-02-17] MEDS: MICONAZOLE NITRATE POWDER 43 GM TOP SCH ×3 (08:24→21:30)
[2020-02-17] MEDS: FUROSEMIDE 80 MG TAB PO SCH (08:24)
[2020-02-17] MEDS: PREGABALIN 25 MG CAP PO SCH ×3 (08:25→21:36)
[2020-02-17] MEDS ORDERED: ALPRAZolam 0.5 MG TABLET PO ONE (09:02)
[2020-02-17] MEDS ORDERED: WARFARIN SOD 2 MG TAB PO SCH (16:00)
--- NOTE | 2020-02-17 16:00 | Hospitalist Progress Note ---
Date of Service February 17, 2020 Assessment & Plan (1) Hypotension: Presented with hypotension with systolic blood pressures in the 70s and 80s in the field and in the ED. Sepsis was considered, but no definite source of infection at time of presentation. UA showed 1+ leukocyte esterase, WBC's, no bacteria. Urine C&S positive as discussed below. Normal WBC, lactate, procalcitonin made sepsis unlikely. Nevertheless, felt prudent to check cultures and start empiric antibiotic therapy. Received IV vancomycin and cefepime in ED- will continue empiric coverage for 48 hours pending culture results. History of pulmonary embolism, but acute PE unlikely with supratherapeutic INR. Patient appeared to be dehydrated per physical assessment and laboratory studies. Suspect volume depletion due to diuretic therapy and inadequate oral fluid intake. Blood pressures improved in the ED with volume resuscitation; did not require pressor support. Presentation atypical for COVID-19 and no known contacts. SARS-CoV-2 PCR negative. Received IV fluids with improvement of hemodynamics. Held diuretic therapy. Discontinued propranolol. Hemodynamically stable. Continue metoprolol with hold parameters. (2) Bradycardia: Chronic atrial fibrillation, rate-controlled. Ventricular rate in the ED mostly in the 50s, but sometimes dipping down to 30s and 40s. Medications include metoprolol succinate, propranolol, digoxin. Clarified with sister why patient is receiving 2 beta-blockers metoprolol for AF and hypertension, propranolol for tremor. Propranolol has not demonstrated any apparent benefit, so will stop it. Digoxin level 0.7. Discussed with Cardiology. Held digoxin. Rate improved and now a bit fast. Continue metoprolol succinate with hold parameters. Resume digoxin with caution. (3) Respiratory failure with hypoxia: Chronic hypoxic respiratory failure on nocturnal O2 at 2 L/min. Chronic respiratory failure probably secondary to COPD +/- sleep apnea +/- obesity hypoventilation syndrome. Marked hypoxia with O2 saturations in the 70s in the field. Oxygenation improved with nonrebreather and transitioned to oxymask. ABG ? with nonrebreather demonstrated a PO2 of 372, PCO2 55, bicarb 31, pH of 7.36. Acute hypoxic respiratory failure superimposed on chronic hypoxic respiratory failure plus or minus probable chronic hypercapnic respiratory failure. No apparent pneumonia or CHF on chest x-ray. History of pulmonary embolism, but PE unlikely with supratherapeutic INR on warfarin. COVID-19 ruled out. Now oxygenating well. Continue nocturnal O2. (4) AMS (altered mental status): Very lethargic upon presentation to ED. Noted to be hypoxic in the field. Has possible UTI. Probable metabolic and/or hypoxic encephalopathy. Mental status improved, but fluctuating consistent with delirium. No focal findings on neurologic exam. Try to avoid meds with [employer] side effects whenever possible. Treat other underlying medical conditions (e.g., UTI, dehydration). (5) Diastolic CHF: History of left ventricular diastolic heart failure. History of dependent edema requiring increasing doses of diuretic therapy. No apparent CHF on admission chest x-ray and patient appeared to be volume depleted. Holding diuretics. No CHF on follow-up chest x-ray 02/12 . Follow cardiac status, weights, etc. Titrate diuretics- resumed furosemide 80 mg daily. Management discussed with Cardiology for coordination of care. Try to management dependent edema with elevation of legs as much as possible to avoid excessive diuresis. (6) Atrial fibrillation: Chronic atrial fibrillation, rate controlled currently with metoprolol, propranolol, digoxin. Bradycardia as discussed above. Stopped propranolol. Held digoxin; rate now a bit fast, so resume digoxin with caution. Continue metoprolol succinate with hold parameters. Continue anticoagulation with warfarin. Management discussed with Cardiology for coordination of care. (7) Hypertension: Hypotensive at time of admission. Hemodynamics improved with fluid resuscitation. Continue metoprolol with hold parameters. Follow and titrate therapy. (8) COPD (chronic obstructive pulmonary disease): Bronchodilators as needed. Titrate supplemental oxygen. (9) GERD (gastroesophageal reflux disease): Continue famotidine. (10) Acute kidney injury: Serum creatinine 1.73 compared to recent baseline of 1.2-1.4. BUN elevated as well. Acute kidney injury superimposed on CKD stage III. Suspected acute kidney injury secondary to dehydration/volume depletion. Received IV fluids. Creatinine today = 1.16. Follow. (11) Hypokalemia: K as low as 3.0. Received replacement. K today = 3.6. Continue replacement. Follow. (12) DM type 2 (diabetes mellitus, type 2): History of diabetes mellitus type 2. Currently diet controlled. Hemoglobin A1c = 5.8. Random blood sugar in ED 152. FBS today = 130. (13) Hypothyroidism: TSH slightly elevated (4.69) in setting of acute illness. TSH was normal in December. Continue current dose of levothyroxine. (14) Hyperuricemia: Continue allopurinol. (15) Anemia: Hemoglobin 9.6 compared to 8.6 on 02/03/2020. Hemoglobin was 12.7 on 01/22/2020 when she presented with significant bleeding from traumatic hematoma of left lower extremity. Acute blood loss anemia secondary to recent blood loss. Hgb today = 11.3. Follow H&H. (16) Macrocytosis: MCV = 102. TSH essentially normal. B12, folate normal. (17) Open wound of left lower leg: Wound left lower extremity secondary to traumatic hematoma a few weeks ago. No overt signs of wound infection. Wound Care Team consulted to continue management. (18) Urinary tract infection: Admission UA showed 1+ leukocyte esterase, > 30 WBC's, 5-10 hyaline casts, no bacteria. Urine culture growing > 100,000 CFU Strep sp. = Enterococcus faecalis. No fever or urinary symptoms. Normal temperature, WBC, lactate, procalcitonin make sepsis unlikely. Uncertain whether bacteruria represents infection or colonization, but best to treat given clinical presentation. Received a few doses of IV vancomycin. Changed Rx to IV ampicillin per sensitivities. Transition to oral therapy with amoxicillin when able. (19) Chronic pain: Chronic musculoskeletal pain + more recent pain from leg injury. May be having confusion / lethargy from meds. Continue usual dose of fentanyl patch (25 mcg). Try weaning and discontinuing pregabalin. Continue duloxetine. (20) Anxiety: History of severe anxiety per sister who is a nurse and has a lot of insight. Anxiety worse over past several weeks because of series of illnesses and social isolation due to restriction of visitation at hospital and long-term. Need to achieve adequate control of symptoms while trying to avoid side effects. Concerned about polypharmacology as discussed below. Continue duloxetine for depression, anxiety, pain. Continue buspirone. Morning trazodone dose stopped because of lethargy; continue HS dose. Try to avoid benzodiazepines if possible. Consider Psych consult. (21) Polypharmacy: Patient taking about 27 scheduled meds and several PRN's. May be having adverse events due to polypharmacology. Stop or decrease meds as able. On propranolol for tremor. Also on metoprolol. Presented with hypotension and bradycardia. No apparent benefit. DC. On trazodone in a.m. + HS. Try to DC morning dose. On pregabalin which can cause confusion and lethargy- decrease dose. ROSEY + volume depletion on 3 diuretics. Try to DC spironolactone + metolazone (although ongoing titration may be necessary). On digoxin for rate control of AF. Bradycardic at time of admission. CHF is diastolic. DC dig if ventricular rate adequately controlled. Scheduled guaifenesin BID, but no chest congestion. Try to DC. May use PRN. On glucosamine-chondroitin for arthritis, but controlled studies have not demonstrated any benefit. Will DC if OK with patient. (22) Tremor: Resting tremor, marked at times. Started on propranolol; sister did not perceive any benefit. Presented with hypotension and bradycardia. Propranolol discontinued. (23) Hu catheter in place: Hu cath placed in ED. Removed 02/13. (24) DVT prophylaxis: On chronic warfarin therapy for atrial fibrillation and history of pulmonary embolism. Continue warfarin. Ambulate as able. (25) COVID-19 ruled out: COVID-19 testing indicated in light of severe illness and long-term residence. No known contacts. No specific COVID-19 symptoms. SARS-CoV-2 nasopharyngeal PCR negative on 02/12/20. (26) Do not resuscitate status: DNR status discussed/confirmed with patient and sister. (27) Discharge planning issues: Anticipated return to [facility] when medically stable. Sister Kate given update today by phone. Admission and Anticipated Discharge Date Admission Date: February 12, 2020 Subjective Recheck for multiple problems. Patient seen in their room around 1130 and rechecked around 1500. Episode of extreme anxiety this morning. Received alprazolam 0.5 mg. Very somnolent at time of my initial assessment. Rechecked later and more alert. Review of Systems: Constitutional- no fever. Cardiac- no chest pain. Pulmonary- occasional cough, no SOB. GI- nausea and vomiting resolved; no diarrhea, melena, hematochezia. - voiding without difficulty. Otherwise, as noted above. Physical Exam Constitutional: no acute distress Eyes: + anicteric sclerae Respiratory: no respiratory distress Auscultation: + wheezes (mild) Cardiovascular: Rate/Rhythm: + irregularly irregular Heart Sounds: no gallop, no murmur and no cardiac rub Vessels: + JVD Extremities: + edema (trace pretibial); no calf tenderness Gastrointestinal (Abdomen): normal bowel sounds, soft, nontender, no hepatosplenomegaly Musculoskeletal: Extremities: no cyanosis Psychiatric: Orientation: alert; + not oriented x 3 Results & Data Results & Data ([facility]) Vital Signs (Past 12 Hours) Vital Signs Temp Pulse Pulse Resp BP Pulse Ox 02/17/20 15:19 36.6 C 96 H 22 129/85 02/17/20 11:33 36.7 C 76 18 97/51 L 95 02/17/20 08:45 95 02/17/20 08:00 76 02/17/20 07:24 36.8 C 110 H 19 155/89 H 91 Laboratory Results Laboratory Results - last 24 hr 02/17/20 02/17/20 02/17/20 07:03 07:03 07:03 WBC 10.68 RBC 3.41 L Hgb 11.3 L Hct 34.8 L MCV 102.1 H MCH 33.1 MCHC 32.5 RDW Std Deviation 63.5 H RDW Coeff of Kenneth 17.2 H Plt Count 300 MPV 10.1 Absolute Nucleated RBC 0.08 H Nucleated RBC % (auto) 0.7 PT 21.1 H INR 2.1 H Sodium 140 Potassium 3.6 Chloride 105 Carbon Dioxide 26 Anion Gap 9.0 BUN 38 H Creatinine 1.16 Est Cr Clr Drug Dosing 49.9 Est GFR ( Amer) 52.2 Est GFR (Non-Af Amer) 45.1 BUN/Creatinine Ratio 32.6 H Glucose 130 H Calcium 10.1 Microbiology 02/12/20 10:05 Blood Aerobic Blood Culture - Final No growth in Aerobic bottle after 5 days. 02/12/20 10:05 Blood Anaerobic Blood Culture - Final No growth in Anaerobic bottle after 5 days. 02/12/20 10:10 Blood Aerobic Blood Culture - Final No growth in Aerobic bottle after 5 days. 02/12/20 10:10 Blood Anaerobic Blood Culture - Final 02/12/20 10:30 Urine,Clean Catch Urine Culture - Final Enterococcus faecalis (1) Atrial fibrillation Atrial fibrillation type: unspecified Qualified Code(s): I48.91 - Unspecified atrial fibrillation (2) Open wound of left lower leg Encounter type: subsequent encounter Qualified Code(s): S81.802D - Unspecified open wound, left lower leg, subsequent encounter
[2020-02-17] MEDS: DIGOXIN 0.125 MG TAB PO SCH (16:47)
[2020-02-17] MEDS: MONTELUKAST SODIUM 10 MG TABLET PO SCH (21:29)
[2020-02-17] MEDS: TRAZODONE HCL 50 MG TAB PO SCH (21:35)
[2020-02-18] MEDS: CHECK FENTANYL PATCH PLACEMENT SCH ×3 (00:15→18:50)
[2020-02-18] MEDS: AMPICILLIN 2,000 MG in SODIUM CHLOR 0.9% AD-VAN 100 ML IV SCH ×3 (00:18→18:01)
[2020-02-18] MEDS: LEVOTHYROXINE SODIUM 75 MCG TABLET PO SCH (05:40)
[2020-02-18 07:55] LABS: Hematocrit (blood only) 33.8 % (37-47); Hemoglobin 10.5 g/dL (12.0-16.0); Mean Corpuscular Hemoglobin 32.2 pg (25-34); Mean Corpuscular Hgb Conc 31.1 g/dL (32-36); Mean Corpuscular Volume 103.7 fL (80-100); Mean Platelet Volume 10.4 fL (7.4-10.4); Nucleated RBC # (auto) 0.04 K/uL (0-0); Nucleated RBC % (auto) 0.5 %; Platelet Count 245 K/uL (130-400); RDW Coefficient of Variation 16.9 % (11.5-14.5); RDW Standard Deviation 64.1 fL (36.4-46.3); Red Blood Count 3.26 M/uL (4.2-5.4); White Blood Count 9.36 K/uL (4.8-10.8)
[2020-02-18 08:07] LABS: INR 3.1 (0.9-1.1); Prothrombin Time 31.2 Seconds (9.0-12.0)
[2020-02-18 08:49] LABS: BUN Creatinine Ratio 32.8 (10-20); Calcium 9.6 mg/dl (8.5-10.1); Creatinine Clr Calc Pharmacy 44.7 ml/min; Est GFR (African American) 45.9; Est GFR (Non-African American) 39.6; Potassium 4.3 mmol/L (3.5-5.1)
[2020-02-18] MEDS: DOCUSATE SODIUM 100 MG CAP PO SCH ×2 (08:58→21:21)
[2020-02-18] MEDS: FLUTICASONE/VILANTEROL 100/25MCG 14 PUFFS/INHALER INH SCH (08:59)
[2020-02-18] MEDS: UMECLIDINIUM BROMIDE 62.5MCG/BLISTER 7 PUFFS/INHALER INH SCH (08:59)
[2020-02-18] MEDS: SENNA 8.6 MG TAB PO SCH ×2 (09:00→21:06)
[2020-02-18] MEDS: SUCRALFATE 1 GM TAB PO SCH ×2 (09:00→21:07)
[2020-02-18] MEDS: POTASSIUM CHLORIDE 20 MEQ TABCR PO SCH ×3 (09:00→21:06)
[2020-02-18] MEDS: FUROSEMIDE 80 MG TAB PO SCH (09:00)
[2020-02-18] MEDS: FAMOTIDINE 20 MG TAB PO SCH ×2 (09:01→21:07)
[2020-02-18] MEDS: ARTIFICIAL TEARS OP SCH ×3 (09:01→21:07)
[2020-02-18] MEDS: METOPROLOL SUCC 50MG EXT REL TAB PO SCH ×2 (09:01→21:03)
[2020-02-18] MEDS: DULOXETINE HCL 60 MG CAP PO SCH (09:01)
[2020-02-18] MEDS: MICONAZOLE NITRATE POWDER 43 GM TOP SCH ×3 (09:02→21:07)
[2020-02-18] MEDS: allopurinoL 100 MG TAB PO SCH (09:02)
[2020-02-18] MEDS: PREGABALIN 25 MG CAP PO SCH ×3 (09:03→21:07)
--- NOTE | 2020-02-18 09:19 | XRay Report ---
XR chest 1V portable CLINICAL HISTORY: 79 years-old Female presenting with CHF. TECHNIQUE: Portable upright AP view of the chest was obtained. COMPARISON: 02/16/2020. FINDINGS: Atherosclerosis of the aortic arch. Cardiac silhouette enlarged. Minimal left basilar opacities. No l arge effusion or pneumothorax. Severe deforming degenerative change of the bilateral glenohumeral rain nts. Osteopenia suspected. Multiple old right rib fractures. Degenerative changes of the spine. IMPRESSION: 1. Cardiomegaly without convincing evidence of congestive change. 2. Minimal left basilar atelectasis. ACT 112: Negative or not required by law. Electronically signed by: Spencer Aleman M.D. 02/18/2020 9:18 AM
--- NOTE | 2020-02-18 11:23 | Hospitalist Progress Note ---
Date of Service February 18, 2020 Assessment & Plan (1) Hypotension: not septic on admission, thought 2/2 polypharmacy. Improved after medication adjusment. (2) UTI (urinary tract infection): Cont ampicillin for one more day to complete 7 day course. (3) Atrial fibrillation: In afib today on telemetry review. Anticoagulated on coumadin with therapeutic INR at 3.1 today. Cont metoprolol for rate control (60s overnight). Digoxin has been stopped. Cont monitoring daily INR. (4) AMS (altered mental status): Initially patient hypoxic in the field, then had intermittent delirium during this hospitalization. Currently normal mental status. (5) Chronic respiratory failure: on chronic oxygen supplementation. Cont this. (6) Acute kidney injury superimposed on CKD: Likely related to diuretic therapy and medications. resolved. (7) Chronic pain: on chronic narcotics (Fentanyl patch) which has been continued. Also taking buspar, duloxetine, pregabalin. (8) Hypothyroidism: cont Synthroid replacement (9) Anxiety: severe, cont home medications. Avoid benzo therapy as small amount of Xanax yesterday caused significant lethargy and confusion. (10) DM type 2 (diabetes mellitus, type 2): diet controlled. A1C<6 (11) Psoriasis: start scheduled steroid cream per home regimen. (12) Diastolic CHF: appears euvolemic. Cont daily lasix per home regimen. (13) DVT prophylaxis: warfarin therapeutic DNR Dispo-transfer to medical floor as stable. [facility] Hospitalist Admission and Anticipated Discharge Date Admission Date: February 12, 2020 Subjective anxiety still present denies pain says she feels her (left) leg is healing had BM this morning eating well Review of Systems Review of Systems: All systems reviewed & are unremarkable except as noted in Subjective Physical Exam Physical Exam: CONSTITUTIONAL: morbid obesity, vitals as above, generally well-appearing, physically deconditioned EYES: normal conjunctivae, no scleral icterus ENT: external ear and nose normal, oropharynx clear NECK: trachea midline RESPIRATORY: clear to auscultation bilaterally with some mils expiratory wheezing at the bases bilaterally, no crackles or rales and good air movement with normal respiratory effort. On 2L via NC. CARDIOVASCULAR: irregular rate and irreg rhythm, S1 and 2 heard without murmurs, gallops or rubs, no JVD, no peripheral edema CHEST: erythematous, malodorous rash in inframammary skin folds bilaterally. GASTROINTESTINAL: obese, multiple skin folds, soft, nontender, nondistended, no guarding MUSCULOSKELETAL: moves all extremities equally, very physically deconditioned. SKIN: warm and dry, silvery plaques on anterior chest wall, scattered on back and down lateral left hip and leg to knee. Erythematous rash under breasts and in inguinal region as above. Left leg wound not evaluated as was just dressed. Per nurse there is significant serosanguinous drainage and a large rounded beefy red area, similar to the way it looked in photos from early January NEUROLOGIC: No facial palsy, no dysarthria. CN 2-12 grossly intact, normal cognition, normal speech, no gross focal deficit. PSYCHIATRIC: alert cooperative and oriented to person, place and time. Euthymic mood, makes good eye contact, language grossly intact, recent and remote memory grossly intact. Results & Data Results & Data ([facility]) Vital Signs (Past 12 Hours) Vital Signs Temp Pulse Pulse Resp BP Pulse Ox 02/18/20 07:32 65 02/18/20 03:33 36.4 C L 70 20 114/74 95 02/17/20 23:16 36.7 C 67 19 110/63 97 Laboratory Results Short CBC 02/18/20 Range/Units 07:41 WBC 9.36 (4.8-10.8) K/uL Hgb 10.5 L (12.0-16.0) g/dL Hct 33.8 L (37-47) % Plt Count 245 (130-400) K/uL BMP 02/18/20 07:41 Sodium 137 Potassium 4.3 D Chloride 104 Carbon Dioxide 25 BUN 42 H Creatinine 1.29 H Glucose 110 H Calcium 9.6 Medications Administered Current Inpatient Medications Acetaminophen (Tylenol) 1,000 mg PO Q8H PRN PRN Reason: Pain Stop: 03/13/20 16:50 Last Admin: 02/16/20 08:34 Dose: 1,000 mg Documented by: Allopurinol (Zyloprim) 200 mg PO DAILY@0800 [facility] Stop: 03/14/20 07:59 Last Admin: 02/18/20 09:02 Dose: 200 mg Documented by: Artificial Tears (Artificial Tears) 2 drops OP TID@0800,1200,2000 [facility] Stop: 03/13/20 19:59 Last Admin: 02/18/20 09:01 Dose: 2 drops Documented by: Betamethasone Dipropion Augmented (Diprolene 0.05%) 1 appln EXT BID [facility] Stop: 03/19/20 11:14 Buspirone HCl (Buspar) 10 mg PO BID@08 [facility] Stop: 03/13/20 19:59 Last Admin: 02/18/20 08:59 Dose: 10 mg Documented by: Digoxin (Lanoxin) 0.125 mg PO DAILY@1600 [facility] Stop: 03/18/20 15:59 Last Admin: 02/17/20 16:47 Dose: 0.125 mg Documented by: Docusate Sodium (Colace) 100 mg PO BID@ [facility] Stop: 03/13/20 19:59 Last Admin: 02/18/20 08:58 Dose: 100 mg Documented by: Duloxetine HCl (Cymbalta) 60 mg PO DAILY@0800 [facility] Stop: 03/14/20 07:59 Last Admin: 02/18/20 09:01 Dose: 60 mg Documented by: Famotidine (Pepcid) 20 mg PO BID@ [facility] Stop: 03/13/20 19:59 Last Admin: 02/18/20 09:01 Dose: 20 mg Documented by: Fentanyl (Duragesic) 25 mcg TD Q3D [facility] Stop: 03/01/20 11:29 Last Admin: 02/16/20 11:45 Dose: 25 mcg Documented by: Fluticasone/Vilanterol (Breo Ellipta 100/25 Mcg Inh) 1 puffs INH DAILY@0800 [facility]; Protocol Stop: 03/14/20 07:59 Last Admin: 02/18/20 08:59 Dose: 1 puffs Documented by: Furosemide (Lasix) 80 mg PO QAM [facility] Stop: 03/16/20 11:59 Last Admin: 02/18/20 09:00 Dose: 80 mg Documented by: Ampicillin Sodium 2,000 mg/ (Sodium Chloride) 100 mls @ 200 mls/hr IV Q8H [facility] Stop: 02/21/20 08:59 Last Infusion: 02/18/20 09:54 Dose: Infused Documented by: Levothyroxine Sodium (Synthroid) 75 mcg PO DAILY@0630 [facility] Stop: 03/14/20 06:29 Last Admin: 02/18/20 05:40 Dose: 75 mcg Documented by: Menthol (Nice) 1 huan BUCCAL Q2H PRN PRN Reason: Cough Stop: 03/13/20 16:54 Metoprolol Succinate (Toprol Xl) 100 mg PO BID@ [facility] Stop: 03/13/20 19:59 Last Admin: 02/18/20 09:01 Dose: 100 mg Documented by: Miconazole Nitrate (Desenex) 1 appln TOP TID@799,1199,1999 [facility] Stop: 03/13/20 16:59 Last Admin: 02/18/20 09:02 Dose: 1 appln Documented by: Miscellaneous (Fentanyl Patch Remove & Waste) 1 ea N/A Q3D [facility] Stop: 03/20/20 11:28 Miscellaneous (Fentanyl Patch Check Placement) 1 ea N/A QS [facility] Stop: 03/17/20 15:59 Last Admin: 02/18/20 09:02 Dose: 1 ea Documented by: Montelukast Sodium (Singulair) 10 mg PO DAILY@1999 [facility] Stop: 03/13/20 19:59 Last Admin: 02/17/20 21:29 Dose: 10 mg Documented by: Potassium Chloride (Klor-Con M20) 20 meq PO TID [facility] Stop: 03/15/20 08:59 Last Admin: 02/18/20 09:00 Dose: 20 meq Documented by: Pregabalin (Lyrica) 25 mg PO TID [facility] Stop: 03/15/20 08:59 Last Admin: 02/18/20 09:03 Dose: 25 mg Documented by: Sennosides (Senokot) 8.6 mg PO BID@ [facility] Stop: 03/13/20 19:59 Last Admin: 02/18/20 09:00 Dose: 8.6 mg Documented by: Sucralfate (Carafate Tab) 1 gm PO BID@ [facility] Stop: 03/13/20 19:59 Last Admin: 02/18/20 09:00 Dose: 1 gm Documented by: Tramadol HCl (Ultram) 50 mg PO Q6H PRN PRN Reason: Pain Stop: 03/13/20 16:50 Trazodone HCl (Desyrel) 50 mg PO DAILY@1999 [facility] Stop: 03/13/20 19:59 Last Admin: 02/17/20 21:35 Dose: 50 mg Documented by: Umeclidinium [place] (Incruse Ellipta) 1 puffs INH DAILY@0800 [facility] Stop: 03/14/20 07:59 Last Admin: 02/18/20 08:59 Dose: 1 puffs Documented by: Warfarin Sodium (Coumadin) 2 mg PO DAILY@1600 [facility] Stop: 03/18/20 15:59 Last Admin: 02/17/20 16:47 Dose: 2 mg Documented by: (1) Atrial fibrillation Atrial fibrillation type: unspecified Qualified Code(s): I48.91 - Unspecified atrial fibrillation
[2020-02-18] MEDS: BETAMETHASONE DIP AUG 0.05% OINT 15 GM TUBE EXT SCH ×2 (11:57→21:21)
[2020-02-18] MEDS: ACETAMINOPHEN 500 MG TAB PO PRN (13:05)
[2020-02-18] MEDS: WARFARIN SOD 2 MG TAB PO SCH ×2 (17:26→18:00)
[2020-02-18] MEDS: DIGOXIN 0.125 MG TAB PO SCH (18:00)
[2020-02-18] MEDS: TRAZODONE HCL 50 MG TAB PO SCH (21:21)
[2020-02-18] MEDS: MONTELUKAST SODIUM 10 MG TABLET PO SCH (22:25)
[2020-02-19] MEDS: AMPICILLIN 2,000 MG in SODIUM CHLOR 0.9% AD-VAN 100 ML IV SCH ×3 (00:13→16:56)
[2020-02-19] MEDS: ACETAMINOPHEN 500 MG TAB PO PRN ×3 (00:13→17:03)
[2020-02-19] MEDS: CHECK FENTANYL PATCH PLACEMENT SCH ×3 (00:16→16:54)
[2020-02-19] MEDS: LEVOTHYROXINE SODIUM 75 MCG TABLET PO SCH (05:57)
[2020-02-19 06:32] LABS: Hematocrit (blood only) 31.7 % (37-47); Hemoglobin 10.3 g/dL (12.0-16.0); Mean Corpuscular Hemoglobin 33.4 pg (25-34); Mean Corpuscular Hgb Conc 32.5 g/dL (32-36); Mean Corpuscular Volume 102.9 fL (80-100); Mean Platelet Volume 10.5 fL (7.4-10.4); Nucleated RBC # (auto) 0.02 K/uL (0-0); Nucleated RBC % (auto) 0.2 %; Platelet Count 227 K/uL (130-400); RDW Coefficient of Variation 16.7 % (11.5-14.5); RDW Standard Deviation 62.2 fL (36.4-46.3); Red Blood Count 3.08 M/uL (4.2-5.4)
[2020-02-19 06:45] LABS: INR 3.4 (0.9-1.1); Prothrombin Time 33.3 Seconds (9.0-12.0)
[2020-02-19 07:03] LABS: Potassium 4.4 mmol/L (3.5-5.1)
[2020-02-19 07:04] LABS: BUN Creatinine Ratio 33.3 (10-20); Calcium 9.1 mg/dl (8.5-10.1); Creatinine Clr Calc Pharmacy 40.9 ml/min; Est GFR (African American) 41.3; Est GFR (Non-African American) 35.6
[2020-02-19] MEDS: ARTIFICIAL TEARS OP SCH ×3 (09:16→21:53)
[2020-02-19] MEDS: FLUTICASONE/VILANTEROL 100/25MCG 14 PUFFS/INHALER INH SCH (09:17)
[2020-02-19] MEDS: SUCRALFATE 1 GM TAB PO SCH ×2 (09:20→21:54)
[2020-02-19] MEDS: SENNA 8.6 MG TAB PO SCH ×2 (09:21→21:54)
[2020-02-19] MEDS: allopurinoL 100 MG TAB PO SCH (09:22)
[2020-02-19] MEDS: UMECLIDINIUM BROMIDE 62.5MCG/BLISTER 7 PUFFS/INHALER INH SCH (09:22)
[2020-02-19] MEDS: MICONAZOLE NITRATE POWDER 43 GM TOP SCH ×3 (09:22→21:53)
[2020-02-19] MEDS: FAMOTIDINE 20 MG TAB PO SCH ×2 (09:24→21:54)
[2020-02-19] MEDS: DULOXETINE HCL 60 MG CAP PO SCH (09:24)
[2020-02-19] MEDS: POTASSIUM CHLORIDE 20 MEQ TABCR PO SCH ×3 (09:26→21:54)
[2020-02-19] MEDS: FUROSEMIDE 80 MG TAB PO SCH (09:27)
[2020-02-19] MEDS: METOPROLOL SUCC 50MG EXT REL TAB PO SCH ×2 (09:36→21:55)
[2020-02-19] MEDS: BETAMETHASONE DIP AUG 0.05% OINT 15 GM TUBE EXT SCH ×2 (09:42→21:53)
[2020-02-19] MEDS: PREGABALIN 25 MG CAP PO SCH ×3 (09:42→21:54)
[2020-02-19] MEDS: DOCUSATE SODIUM 100 MG CAP PO SCH ×2 (09:42→21:54)
[2020-02-19] MEDS: fentaNYL 25 MCG/HR TDSY TD SCH (12:05)
[2020-02-19] MEDS ORDERED: WARFARIN SOD 1 MG TAB PO SCH (16:00)
--- NOTE | 2020-02-19 16:40 | Hospitalist Progress Note ---
Date of Service February 19, 2020 Assessment & Plan (1) Hypotension: not septic on admission, thought 2/2 polypharmacy. Improved after medication adjusment. (2) UTI (urinary tract infection): Ampicillin (3) Atrial fibrillation: chronic. Anticoagulated on coumadin with therapeutic INR at 3.4 today. Coumadin dose was held. Cont metoprolol for rate control. Cont digoxin per home regimen. Cont monitoring daily INR. (4) Chronic respiratory failure: on chronic oxygen supplementation. Cont this. (5) Acute kidney injury superimposed on CKD: Likely related to diuretic therapy and medications. resolved. (6) Chronic pain: on chronic narcotics (Fentanyl patch) which has been continued. Also taking buspar, duloxetine, pregabalin. (7) Hypothyroidism: cont Synthroid replacement (8) Anxiety: severe, cont home medications. Avoid benzo therapy as small amount of Xanax yesterday caused significant lethargy and confusion. (9) DM type 2 (diabetes mellitus, type 2): diet controlled. A1C<6 (10) Psoriasis: improved plaques already with the steroid cream. (11) Diastolic CHF: appears euvolemic. Cont daily lasix per home regimen. (12) DVT prophylaxis: warfarin therapeutic DNR Dispo-cont hospitalization. DC planned to [place] soon. Opal العراقي DO [facility] Hospitalist Admission and Anticipated Discharge Date Admission Date: February 12, 2020 Subjective Pt feeling well today Denies pain in her left leg reports walking around the room today tolerating PO feeling improved since admission Review of Systems Review of Systems: All systems reviewed & are unremarkable except as noted in Subjective Physical Exam Physical Exam: CONSTITUTIONAL: morbid obesity, vitals as above, generally well-appearing, physically deconditioned EYES: normal conjunctivae, no scleral icterus ENT: external ear and nose normal NECK: trachea midline RESPIRATORY: clear to auscultation bilaterally with some mils expiratory wheezing at the bases bilaterally, no crackles or rales and good air movement with normal respiratory effort. On 2L via NC. CARDIOVASCULAR: irregular rate and irreg rhythm, S1 and 2 heard without murmurs, gallops or rubs, no JVD, no peripheral edema CHEST: erythematous, malodorous rash in inframammary skin folds bilaterally. GASTROINTESTINAL: obese, multiple skin folds, soft, nontender, nondistended, no guarding MUSCULOSKELETAL: moves all extremities equally, very physically deconditioned. SKIN: warm and dry, silvery plaques on anterior chest wall-improved, scattered on back and down lateral left hip and leg to knee. Erythematous rash under breasts and in inguinal region as above. Left leg wound dressed in gauze. NEUROLOGIC: No facial palsy, no dysarthria. CN 2-12 grossly intact, normal cognition, normal speech, no gross focal deficit. PSYCHIATRIC: alert cooperative and oriented to person, place and time. Euthymic mood, makes good eye contact, language grossly intact, recent and remote memory grossly intact. Results & Data Results & Data ([facility]) Vital Signs (Past 12 Hours) Vital Signs Temp Pulse Resp BP Pulse Ox 02/19/20 15:10 36.5 C 86 18 100/64 95 02/19/20 09:28 66 109/68 02/19/20 07:15 36.5 C 64 18 130/84 96 Laboratory Results Short CBC 02/19/20 Range/Units 06:20 WBC 10.00 (4.8-10.8) K/uL Hgb 10.3 L (12.0-16.0) g/dL Hct 31.7 L (37-47) % Plt Count 227 (130-400) K/uL BMP 02/19/20 06:20 Sodium 137 Potassium 4.4 Chloride 105 Carbon Dioxide 25 BUN 47 H Creatinine 1.41 H Glucose 116 H Calcium 9.1 Medications Administered Current Inpatient Medications Acetaminophen (Tylenol) 1,000 mg PO Q8H PRN PRN Reason: Pain Stop: 03/13/20 16:50 Last Admin: 02/19/20 09:54 Dose: 1,000 mg Documented by: Allopurinol (Zyloprim) 200 mg PO DAILY@0800 [facility] Stop: 03/14/20 07:59 Last Admin: 02/19/20 09:22 Dose: 200 mg Documented by: Artificial Tears (Artificial Tears) 2 drops OP TID@0800,1200,2000 [facility] Stop: 03/13/20 19:59 Last Admin: 02/19/20 12:11 Dose: 2 drops Documented by: Betamethasone Dipropion Augmented (Diprolene 0.05%) 1 appln EXT BID [facility] Stop: 03/19/20 11:14 Last Admin: 02/19/20 09:42 Dose: 1 appln Documented by: Buspirone HCl (Buspar) 10 mg PO BID@08,1999 [facility] Stop: 03/13/20 19:59 Last Admin: 02/19/20 09:23 Dose: 10 mg Documented by: Digoxin (Lanoxin) 0.125 mg PO DAILY@1600 [facility] Stop: 03/18/20 15:59 Last Admin: 02/18/20 18:00 Dose: 0.125 mg Documented by: Docusate Sodium (Colace) 100 mg PO BID@08 [facility] Stop: 03/13/20 19:59 Last Admin: 02/19/20 09:42 Dose: 100 mg Documented by: Duloxetine HCl (Cymbalta) 60 mg PO DAILY@0800 [facility] Stop: 03/14/20 07:59 Last Admin: 02/19/20 09:24 Dose: 60 mg Documented by: Famotidine (Pepcid) 20 mg PO BID@ [facility] Stop: 03/13/20 19:59 Last Admin: 02/19/20 09:24 Dose: 20 mg Documented by: Fentanyl (Duragesic) 25 mcg TD Q3D [facility] Stop: 03/01/20 11:29 Last Admin: 02/19/20 12:05 Dose: 25 mcg Documented by: Fluticasone/Vilanterol (Breo Ellipta 100/25 Mcg Inh) 1 puffs INH DAILY@08 [facility]; Protocol Stop: 03/14/20 07:59 Last Admin: 02/19/20 09:17 Dose: 1 puffs Documented by: Furosemide (Lasix) 80 mg PO QAM [facility] Stop: 03/16/20 11:59 Last Admin: 02/19/20 09:27 Dose: Not Given Documented by: Ampicillin Sodium 2,000 mg/ (Sodium Chloride) 100 mls @ 200 mls/hr IV Q8H [facility] Stop: 02/21/20 08:59 Last Infusion: 02/19/20 10:39 Dose: Infused Documented by: Levothyroxine Sodium (Synthroid) 75 mcg PO DAILY@0630 [facility] Stop: 03/14/20 06:29 Last Admin: 02/19/20 05:57 Dose: 75 mcg Documented by: Menthol (Nice) 1 huan BUCCAL Q2H PRN PRN Reason: Cough Stop: 03/13/20 16:54 Metoprolol Succinate (Toprol Xl) 100 mg PO BID@ [facility] Stop: 03/13/20 19:59 Last Admin: 02/19/20 09:36 Dose: 100 mg Documented by: Miconazole Nitrate (Desenex) 1 appln TOP TID@799,1199,1999 [facility] Stop: 03/13/20 16:59 Last Admin: 02/19/20 12:11 Dose: 1 appln Documented by: Miscellaneous (Fentanyl Patch Remove & Waste) 1 ea N/A Q3D [facility] Stop: 03/20/20 11:28 Last Admin: 02/19/20 12:06 Dose: 1 ea Documented by: Miscellaneous (Fentanyl Patch Check Placement) 1 ea N/A QS [facility] Stop: 03/17/20 15:59 Last Admin: 02/19/20 09:25 Dose: 1 ea Documented by: Montelukast Sodium (Singulair) 10 mg PO DAILY@1999 [facility] Stop: 03/13/20 19:59 Last Admin: 02/18/20 22:25 Dose: 10 mg Documented by: Potassium Chloride (Klor-Con M20) 20 meq PO TID [facility] Stop: 03/15/20 08:59 Last Admin: 02/19/20 13:41 Dose: 20 meq Documented by: Pregabalin (Lyrica) 25 mg PO TID [facility] Stop: 03/15/20 08:59 Last Admin: 02/19/20 13:41 Dose: 25 mg Documented by: Sennosides (Senokot) 8.6 mg PO BID@ [facility] Stop: 03/13/20 19:59 Last Admin: 02/19/20 09:21 Dose: 8.6 mg Documented by: Sucralfate (Carafate Tab) 1 gm PO BID@ [facility] Stop: 03/13/20 19:59 Last Admin: 02/19/20 09:20 Dose: 1 gm Documented by: Tramadol HCl (Ultram) 50 mg PO Q6H PRN PRN Reason: Pain Stop: 03/13/20 16:50 Trazodone HCl (Desyrel) 50 mg PO DAILY@1999 [facility] Stop: 03/13/20 19:59 Last Admin: 02/18/20 21:21 Dose: 50 mg Documented by: Umeclidinium [place] (Incruse Ellipta) 1 puffs INH DAILY@08 [facility] Stop: 03/14/20 07:59 Last Admin: 02/19/20 09:22 Dose: 1 puffs Documented by: Warfarin Sodium (Coumadin) 2 mg PO MoWeFr@1600 [facility] Stop: 03/19/20 15:59 Last Admin: 02/18/20 18:00 Dose: 2 mg Documented by: Warfarin Sodium (Coumadin) 1 mg PO SuTuThSa@1600 [facility] Stop: 03/20/20 15:59 (1) Atrial fibrillation Atrial fibrillation type: unspecified Qualified Code(s): I48.91 - Unspecified atrial fibrillation
[2020-02-19] MEDS: DIGOXIN 0.125 MG TAB PO SCH (16:55)
[2020-02-19] MEDS: TRAZODONE HCL 50 MG TAB PO SCH (21:54)
[2020-02-19] MEDS: MONTELUKAST SODIUM 10 MG TABLET PO SCH (21:54)
[2020-02-20] MEDS: AMPICILLIN 2,000 MG in SODIUM CHLOR 0.9% AD-VAN 100 ML IV SCH ×2 (00:20→08:33)
[2020-02-20] MEDS: CHECK FENTANYL PATCH PLACEMENT SCH ×3 (00:21→15:47)
[2020-02-20] MEDS: LEVOTHYROXINE SODIUM 75 MCG TABLET PO SCH (06:23)
[2020-02-20 06:57] LABS: Hematocrit (blood only) 32.3 % (37-47); Hemoglobin 10.2 g/dL (12.0-16.0); Mean Corpuscular Hemoglobin 32.7 pg (25-34); Mean Corpuscular Hgb Conc 31.6 g/dL (32-36); Mean Corpuscular Volume 103.5 fL (80-100); Mean Platelet Volume 10.3 fL (7.4-10.4); Platelet Count 230 K/uL (130-400); RDW Coefficient of Variation 16.8 % (11.5-14.5); RDW Standard Deviation 63.1 fL (36.4-46.3); Red Blood Count 3.12 M/uL (4.2-5.4); White Blood Count 10.82 K/uL (4.8-10.8)
[2020-02-20 07:16] LABS: INR 3.3 (0.9-1.1); Prothrombin Time 32.4 Seconds (9.0-12.0)
[2020-02-20 07:25] LABS: BUN Creatinine Ratio 35.5 (10-20); Calcium 9.4 mg/dl (8.5-10.1); Creatinine Clr Calc Pharmacy 43.7 ml/min; Est GFR (African American) 44.7; Est GFR (Non-African American) 38.5; Potassium 5.1 mmol/L (3.5-5.1)
[2020-02-20] MEDS: BETAMETHASONE DIP AUG 0.05% OINT 15 GM TUBE EXT SCH (08:33)
[2020-02-20] MEDS: PREGABALIN 25 MG CAP PO SCH ×2 (08:34→14:00)
[2020-02-20] MEDS: POTASSIUM CHLORIDE 20 MEQ TABCR PO SCH ×2 (08:34→14:00)
[2020-02-20] MEDS: MICONAZOLE NITRATE POWDER 43 GM TOP SCH ×2 (08:34→11:36)
[2020-02-20] MEDS: DULOXETINE HCL 60 MG CAP PO SCH (08:35)
[2020-02-20] MEDS: allopurinoL 100 MG TAB PO SCH (08:35)
[2020-02-20] MEDS: METOPROLOL SUCC 50MG EXT REL TAB PO SCH (08:35)
[2020-02-20] MEDS: FAMOTIDINE 20 MG TAB PO SCH (08:35)
[2020-02-20] MEDS: SENNA 8.6 MG TAB PO SCH (08:35)
[2020-02-20] MEDS: SUCRALFATE 1 GM TAB PO SCH (08:36)
[2020-02-20] MEDS: FLUTICASONE/VILANTEROL 100/25MCG 14 PUFFS/INHALER INH SCH (08:36)
[2020-02-20] MEDS: ARTIFICIAL TEARS OP SCH ×2 (08:37→11:36)
[2020-02-20] MEDS: UMECLIDINIUM BROMIDE 62.5MCG/BLISTER 7 PUFFS/INHALER INH SCH (09:29)
[2020-02-20] MEDS: DOCUSATE SODIUM 100 MG CAP PO SCH (09:29)
--- NOTE | 2020-02-20 10:18 | Discharge Summary ---
Date of Service February 20, 2020 Admission HPI Per Admitting Provider 79 YO female followed by Dr. Lemus and Purvi Tellez PA-C at [facility]. History of diastolic CHF, chronic AF, chronic hypoxic respiratory failure, and other problems. Hospitalized at [facility] from 01/22/20 to 02/04/20 for management of traumatic hematoma LLE and other problems. Followed by Wound Care and wound vac being utilized. Had follow-up appointment at [facility] today. Upon arrival to the wound clinic patient noted to be lethargic, hypotensive, and hypoxic. Systolic BP's were in the 70's - 80's. O2 sats at low as 70's. EMS summoned. Received bolus of IV fluids and O2. Transferred to ED. Persistent hypotension in ED, improved with repeat boluses of NSS. Oxygenation improved on non-rebreather mask and pt transitioned to oxymask. Sepsis considered and empiric IV antibiotics administered. Mentation improved with above measures. Patient was more conversant at the time of my assessment, but still somewhat confused. She denied any fever, chills, sweats. No significant cough. Denied chest pain. Denied nausea, vomiting, diarrhea. Spoke with sister by phone. She reports that patient hasn't seemed like herself the past few days, but no apparent new specific symptoms. No known COVID-19 exposure. No travel. Admission Exam Per Admitting Provider Constitutional: + acute distress, + ill appearing and + obese Eyes: PERRL, conjunctivae normal, anicteric sclerae ENMT: dry oral mucosa Neck: trachea midline, no thyromegaly Respiratory: no respiratory distress Auscultation: + wheezes Cardiovascular: Rate/Rhythm: + irregularly irregular Heart Sounds: no gallop, no murmur (exam limited) and no cardiac rub Vessels: no JVD Extremities: normal capillary refill and + edema (1+ pretibial); no calf tenderness Gastrointestinal (Abdomen): normal bowel sounds, soft, nontender, no hepatosplenomegaly Musculoskeletal: Head/Neck/Chest: neck supple Extremities: strength 5/5 throughout wound vac applied to LLE Skin: no rashes, warm and dry Neurologic: PERRL, EOMI no facial palsy no dysarthria or aphasia patellar DTR's 2/2 bilat Psychiatric: Orientation: alert; + not oriented x 3 (moderately confused, oriented to person, place, not date) Genitourinary: Hu cath Lymphatic: no cervical lymphadenopathy Principal Diagnosis Hypotension 2/2 polypharmacy UTI atrial fibrillation on anticoagulation chronic respiratory failure on nocturnal oxygen morbid obesity Discharge Exam CONSTITUTIONAL: morbid obesity, vitals as above, generally well-appearing, physically deconditioned EYES: normal conjunctivae, no scleral icterus ENT: external ear and nose normal NECK: trachea midline RESPIRATORY: clear to auscultation bilaterally with some mild expiratory wheezing at the bases on the left, no crackles or rales and good air movement with normal respiratory effort. CARDIOVASCULAR: irregular rate and irreg rhythm, S1 and 2 heard without murmurs, gallops or rubs, no JVD, no peripheral edema CHEST: erythematous, malodorous rash in inframammary skin folds bilaterally. GASTROINTESTINAL: obese, multiple skin folds, soft, nontender, nondistended, no guarding MUSCULOSKELETAL: moves all extremities equally, very physically deconditioned. SKIN: warm and dry, silvery plaques on anterior chest wall-improved, scattered on back and down lateral left hip and leg to knee. Erythematous rash under breasts and in inguinal region as above. Left leg wound dressed in gauze. NEUROLOGIC: No facial palsy, no dysarthria. CN 2-12 grossly intact, normal cognition, normal speech, no gross focal deficit. PSYCHIATRIC: alert cooperative and oriented to person, place and time. Euthymic mood, makes good eye contact, language grossly intact, recent and remote memory grossly intact. Discharge Data Allergies Allergy/AdvReac Type Severity Reaction Status Date / Time meperidine [From Demerol] Allergy Unknown ON Verified 02/12/20 11:18 HILL LIST sulfite Allergy On Unverified 02/12/20 11:18 Hill's list morphine AdvReac Intermediate vomiting Verified 02/12/20 11:18 oxycodone AdvReac Intermediate vomit blood Verified 02/12/20 11:18 propoxyphene AdvReac Intermediate abd vomit Verified 02/12/20 11:18 blood tramadol AdvReac Intermediate vomiting Verified 12/25/19 23:09 Bactrim AdvReac Mild GI SYMPTOMS Verified 03/06/18 21:06 codeine AdvReac Mild vomiting Verified 02/12/20 11:18 olmesartan AdvReac Mild GI SYMPTOMS Verified 12/25/19 23:09 Sulfa (Sulfonamide AdvReac Mild GI SYMPTOMS Verified 01/22/20 11:35 Antibiotics) sulfamethoxazole AdvReac Mild GI SYMPTOMS Verified 01/22/20 11:35 trimethoprim AdvReac Mild GI SYMPTOMS Verified 01/22/20 11:35 carisoprodol AdvReac Unknown GI SYMPTOMS Verified 12/10/19 14:37 Consultations 02/12/20 16:51 Consult Wound Care Provider Stat 02/16/20 11:19 Consult Plastic Surgery Routine Hospital Course (1) Hypotension: (2) UTI (urinary tract infection): (3) Atrial fibrillation: (4) Chronic respiratory failure: (5) Acute kidney injury superimposed on CKD: (6) Chronic pain: (7) Anxiety: 79-year-old female who resides at [facility] presented to the wound clinic for treatment of a known left lower extremity leg wound and was noted to be lethargic hypotensive and hypoxic. Systolic blood pressures were in the 70s to 80s and oxygen saturations were as low as 70s on room air. She has a known oxygen requirement of 2 L/min used overnight while sleeping. In the ER she received normal saline and nonrebreather mask for oxygen administration. She was noted to be a DNR/DNI. Blood work cultures a Hu catheter EKG and chest x-ray were performed. The patient's mental status improved and her oxygen saturation increased to 100%. She was transitioned to an oxygen mask. She did have diminished breath sounds and with a history of COPD and albuterol MDI 6 pu ffs were was ordered. Solu-Medrol was also given and she was empirically treated with cefepime and vancomycin due to initial concerns for sepsis. No leukocytosis was seen on CBC and her chemistry panel was unremarkable. A troponin was checked and negative. A bio fire respiratory panel was checked and negative and a normal coronavirus PCR was checked and negative. She was admitted to the hospitalist service for further work-up treatment and monitoring. As hospitalization progressed a urinary tract infection was found. Sepsis was ruled out and she continued to improve clinically. Vancomycin was changed to ampicillin to treat urinary tract infection. Significant bradycardia was noted and the patient was also found to be on metoprolol succinate in addition to propranolol and digoxin. Digoxin level was 0.7. Digoxin and propranolol were held initially. Her mental status continued to improve. Her left lower extremity wound VAC was present on admission and discontinued on [address] Elise Roldan. The wound was dressed with Aquacel and Kaltostat and daily dressings were continued during the hospitalization. Her wound was noted to be improving and no debridement was required. Epithelialization was noted. She continued to improve and remained stable. She did notably have significant anxiety at some point in the hospitalization. At time of discharge she was mentating at baseline and tolerating p.o. She was afebrile and hemodynamically stable. Multiple medications were stopped at time of discharge and she should see her primary care physician within 1 week to discuss these changes. Total Time Total Time Spent Total Time Spent (In Minutes): 60 Total Time Includes: Examination of the Patient, Discharge Planning, Medication Reconciliation and Communication With Other Providers Discharge Plan Discharge Items Patient Disposition: Transfer Longterm Fac Reason For Visit: HYPOTENSION,HYPOXIA Discharge Diagnosis: Hypotension 2/2 polypharmacy UTI atrial fibrillation on anticoagulation chronic respiratory failure on nocturnal oxygen morbid obesity Condition on Discharge: Good Activity: Resume your previous activity Non-emergency contact: Primary Care Provider Call non-emergency contact if: you have any medication questions, your symptoms worsen, your pain is not controlled, your pain is worsening, your pain is unusual for you, your pain is concerning for you and you have a fever Follow-up/Referrals: Freddy Pinto [Primary Care Provider] - Diet: Carb Consistent or DM2 and Heart Healthy Addtl Attending Provider Instructions: Please take all medications as instructed on discharge list below. Please note multiple medications have been stopped. It is recommended that you follow-up with your primary care physician in one week to discuss the changes. It was a pleasure taking care of you! Please call if you have any questions or problems. You can reach a [facility] hospitalist on duty at [facility] 24 hours a day by calling [phone]. Take care of yourself. Opal العراقي DO [facility] at Discharge: No Stand-Alone Forms: My [facility] Medications and DC Order Prescriptions: Continued digoxin [Digox] 125 mcg tablet 125 mcg PO MOWEFR RF: 0 spironolactone [Aldactone] 25 mg tablet 25 mg PO QAM RF: 0 cholecalciferol (vitamin D3) 1,000 unit capsule 1,000 units PO QAM RF: 0 sucralfate [Carafate] 1 gram Tablet 1 g PO AMPM RF: 0 allopurinol [Zyloprim] 100 mg Tablet 200 mg PO QAM RF: 0 levothyroxine [Synthroid] 75 mcg Tablet 75 mcg PO DAILYBB RF: 0 meclizine [Dramamine Less Drowsy] 25 mg Tablet 25 mg PO TID PRN (Reason: Dizziness) RF: 0 docusate sodium [Colace] 100 mg Capsule 100 mg PO BID RF: 0 montelukast [Singulair] 10 mg Tablet 10 mg PO QPM RF: 0 duloxetine [Cymbalta] 60 mg Capsule,Delayed Release(Dr/Ec) 60 mg PO QAM RF: 0 acetaminophen [Tylenol] 325 mg Capsule 650 mg PO Q4H MDD 3,000 mg PRN (Reason: Fever) RF: 0 melatonin 10 mg Tablet 10 mg PO HS RF: 0 simethicone [Gas Relief (simethicone)] 180 mg Capsule 180 mg PO DAILY PRN (Reason: Gastrointestinal Spasms Or Cramping) RF: 0 sennosides [senna] 8.6 mg Tablet 8.6 mg PO BID RF: 0 Incruse Ellipta 62.5 mcg/actuation Blister With Device 1 inh INHALATION QAM RF: 0 warfarin [Coumadin] 1 mg tablet 1 mg PO SUTUTHSA RF: 0 ondansetron HCl [Zofran] 8 mg Tablet 8 mg PO Q8H PRN (Reason: Nausea) RF: 0 tramadol [Ultram] 50 mg Tablet 50 mg PO Q6H MDD 300 mg PRN (Reason: Pain) RF: 0 acetaminophen [Tylenol Extra Strength] 500 mg Tablet 1,000 mg PO Q8H PRN (Reason: Pain) RF: 0 magnesium hydroxide [Milk of Magnesia] 400 mg/5 mL Suspension 30 ml PO DAILY PRN (Reason: Constipation) RF: 0 bisacodyl [Dulcolax (bisacodyl)] 10 mg Suppository 10 mg RI DAILY PRN (Reason: Constipation) RF: 0 Enema 19-7 gram/118 mL Enema 118 ml RI DAILY PRN (Reason: Constipation) RF: 0 ArgiMent AT 10 gram-7 gram/42.75 gram Powder In Packet 10 g PO BID RF: 0 Micro-Guard 2 % Powder 1 applic TOPICAL TID RF: 0 betamethasone dipropionate 0.05 % Ointment 1 applic TOPICAL BID PRN (Reason: Dermatitis) RF: 0 buspirone 10 mg Tablet 10 mg PO BID RF: 0 metoprolol succinate [Toprol XL] 100 mg Tablet Extended Release 24 Hr 100 mg PO BID RF: 0 metolazone 2.5 mg Tablet 2.5 mg PO WESA RF: 0 trazodone 50 mg tablet 50 mg PO HS RF: 0 guaifenesin [Siltussin SA] 100 mg/5 mL Liquid 200 mg PO Q4H PRN (Reason: Cough) RF: 0 famotidine [Pepcid] 20 mg tablet 20 mg PO BID RF: 0 furosemide [Lasix] 80 mg tablet 80 mg PO QAM RF: 0 fluticasone propion-salmeterol [Advair Diskus] 500-50 mcg/dose blister with device 1 ea INHALATION BID RF: 0 fentanyl [Duragesic] 25 mcg/hr patch 72 hour 25 mcg topical [id number] RF: 0 Cepacol Sore Throat (nataliia-men) 15-2.6 mg Lozenge 1 huan PO Q2H PRN (Reason: Sore Throat) RF: 0 guaifenesin [Mucinex] 600 mg Tablet Extended Release 12hr 600 mg PO BID RF: 0 levalbuterol HCl [Xopenex] 0.63 mg/3 mL Solution For Nebulization 0.63 mg INHALATION Q4H PRN (Reason: Wheezing) RF: 0 Refresh Classic (PF) 1.4-0.6 % dropperette 2 drp OPB TID RF: 0 glucosamine-chondroitin 250-200 mg Tablet 1 tab PO TID RF: 0 warfarin [Coumadin] 1 mg Tablet 2 mg PO MOWEFR RF: 0 Discontinued pregabalin [Lyrica] 50 mg Capsule 50 mg PO TID RF: 0 trazodone 50 mg tablet 25 mg PO QAM RF: 0 propranolol 10 mg tablet 10 mg PO TID RF: 0 oxycodone [Roxicodone] 5 mg Tablet 10 mg PO MOWEFR RF: 0 Discharge Orders: Discharge Order (Routine); Ordered 02/20/20 Ordered By: Opal العراقي Admission Data Admit Date/Time: 02/12/20 13:33 Attending Provider: Opal العراقي Admit Provider: Ramon Floyd Primary Care Provider: Freddy Pinto Other Providers: Lalo Willingham ; Elise Roldan
[2020-02-20] MEDS: DIGOXIN 0.125 MG TAB PO SCH (15:44)
== END 2020-02-20 17:10 | DRG 312 ==
LOC: ED 09:54 → SUATTDRO 13:33 → 2S 13:33 → 3E 02-18 11:42

== ENCOUNTER 2020-02-25 13:00 | Inpatient (IN) ==
[2020-02-25] MEDS ORDERED: MoRPHine SULFATE 4 MG/ML 1 ML CARP\\VIAL IV STA (13:31)
[2020-02-25] MEDS ORDERED: ONDANSETRON INJ 2 MG/ML 2 ML VIAL IV STA (13:31)
[2020-02-25 13:41] LABS: Basophils # (auto) 0.03 K/uL (0-0.2); Basophils % (auto) 0.2 %; Eosinophils # (auto) 0.26 K/uL (0-0.5); Eosinophils % (auto) 1.7 %; Hematocrit (blood only) 31.4 % (37-47); Hemoglobin 10.2 g/dL (12.0-16.0); Immature Granulocytes # (auto) 0.06 K/uL (0.00-0.02); Immature Granulocytes % (auto) 0.4 %; Lymphocytes # (auto) 2.25 K/uL (1.2-3.4); Lymphocytes % (auto) 14.4 %; Mean Corpuscular Hemoglobin 32.8 pg (25-34); Mean Corpuscular Hgb Conc 32.5 g/dL (32-36); Mean Platelet Volume 11.2 fL (7.4-10.4); Monocytes % (auto) 9.6 %; Neutrophils # (auto) 11.56 K/uL (1.4-6.5); Neutrophils % (auto) 73.7 %; Platelet Count 336 K/uL (130-400); RDW Coefficient of Variation 17.1 % (11.5-14.5); RDW Standard Deviation 62.3 fL (36.4-46.3); Red Blood Count 3.11 M/uL (4.2-5.4); White Blood Count 15.66 K/uL (4.8-10.8)
--- NOTE | 2020-02-25 13:45 | Emergency Department Note ---
Impression & Plan Pneumonia, Abdominal pain ED Provider Note NAME: RESHMA RAGSDALE AGE: 79 SEX: F : 1940 ARRIVES VIA: Ambulance INFORMANT: Patient, ED PROVIDER(S): Jose Schneider MD Chief Complaint: Abdominal pain HPI: Patient presents with concern for abdominal pain. Patient states it began last evening is in the middle of her abdomen. She describes it as nonradiating and sharp. It is intermittent in nature. The patient was recently taken off Lyrica. The patient has not taken anything at home. The patient did have an episode of vomiting yesterday. Patient does not present with cough, fevers, chills, coronavirus contacts, coronavirus testing, or recent travel. Patient was recently admitted and discharged. The patient is DNR/DNI. Patient did have sinus issues with respiratory failure and does chronically use oxygen. Patient does follow with Dr. Lemus. Patient denies any bowel or bladder issues. ROS: See HPI for pertinent positives and negatives. A total of 10 systems were reviewed and otherwise negative. Past medical history: See below Surgical history: See below Social history: See below Physical Exam: GENERAL: Occasionally uncomfortable in appearance, wearing a mask. Nasal cannula in place. EYE EXAM: Normal conjunctiva. PERRL, no anisocoria and EOM's grossly intact w/o pain. NECK: Supple, no nuchal rigidity, no adenopathy, non-tender. No signs of meningismus. LUNGS: Clear to auscultation. Normal chest wall mechanics. HEART: NSR, no MRG. ABDOMEN: Mid abdominal pain, not peritonitic. BACK: No CVA TTP. SKIN: No rashes and no bruising. UPPER EXTREMITIES: Upper extremities are grossly normal. LOWER EXTREMITIES: Grossly normal, no edema. NEURO EXAM: A&O x3, cranial nerves II-XII grossly intact, normal speech, moves all 4 extremities on command w/o issue. Differential diagnoses: Appendicitis, ovarian cyst, ovarian torsion, ectopic , TOA, PID, infections, diverticulitis, UTI, obstruction, mesenteric ischemia, aortic pathology, inflammatory bowel disease, renal colic, PUD, pancreatitis, biliary pathology, hernia, volvulus, constipation, as well as other pathologies. Course: Patient was seen and evaluated the bedside. Full history physical exam was performed. EKG: None Imaging Studies: Radiology results as stated below per my review in the radiologist's int erpretation: CT angio abdomen pelvis w con HISTORY: mid ab pain TECHNIQUE: Multiaxial CT images of the abdomen and pelvis were performed following the use of intravenous contrast to evaluate the major arterial structures. Maximal intensity images were also obtained. COMPARISON STUDY: Abdomen and pelvis CT 01/22/2020. FINDINGS: Please refer to the same day chest CTA for further evaluation of the thoracic aorta. There is motion artifact within the abdomen and pelvis resulting in suboptimal evaluation. This results in suboptimal evaluation of the upper abdomen. Moderate calcified plaque at the origins of the celiac, superior mesenteric, and renal arteries. This results in at least 50% stenosis within the superior mesenteric and left renal artery. However, this is difficult to quantitate given the motion artifact. The degree of stenosis in the celiac artery is also essentially nondiagnostic given the motion artifact. Abdominal aorta is normal in course and caliber with no evidence for dissection. The bilateral iliac arteries are widely patent. The IVC is also patent. The main portal vein is likely patent. No pneumoperitoneum. No pneumatosis. No fractures within the visualized osseous structures. Midline abdominal wall laxity is noted. Evidence for midline ventral hernia repair. Cholecystectomy. No definite hepatic or splenic masses. The adrenal glands and pancreas are unremarkable. Moderate bilateral cortical renal thinning. Subcentimeter hypodensities are too small to characterize but favor cysts. No hydronephrosis. No retroperitoneal lymphadenopathy. The bladder, uterus, left adnexa are unremarkable. There is a 3.4 cm right adnexal cyst, unchanged. Colonic diverticulosis. No evidence for diverticulitis. No definite bowel wall thickening or obstruction. Normal appendix. IMPRESSION: 1. Normal caliber abdominal aorta with no evidence for dissection. 2. Moderate calcified plaque at the origins of the celiac, superior mesenteric, and left renal arteries resulting in moderate stenosis. 3. Please refer to the same day chest CT for further evaluation of the thoracic aorta. 4. Additional findings as described above. ACT 112: Negative or not required by law. Electronically signed by: Neo Alcazar M.D. 02/25/2020 2:50 PM Dictated: 02/25/201441 Transcribed: 02/25/201441 CT angio chest dissec wo/w con CT DOSE: 3589.57 mGy.cm HISTORY: Pain. mid ab pain; r/o dissection TECHNIQUE: Multiaxial CT images of the chest, abdomen, and pelvis were performed both before and after the intravenous administration of contrast to evaluate the aorta. Maximal intensity projection images were also obtained. A dose lowering technique was utilized adhering to the principles of ALARA. COMPARISON STUDY: 07/03/2019 FINDINGS: Thoracic aorta enhances appropriately. No evidence for aneurysm or dissection. Moderate atherosclerotic change. Pulmonary vasculature enhances appropriately. Slight interstitial prominence throughout both hemithoraces. Focal infiltrative process left upper lung image 23. This less likely represents parenchymal nodularity due to the short interval timeframe from the prior study. Significant degenerative change throughout the thoracic spine with evidence for moderate kyphosis. IMPRESSION: 1. No evidence for aneurysm or dissection. 2. Mild interstitial prominence throughout both hemithoraces. 3. Small focal consolidative infiltrate left upper lung. ACT 112: Negative or not required by law. The above report was generated using voice recognition software. It may contain grammatical, syntax or spelling errors. Electronically signed by: Brain An M.D. 02/25/2020 2:46 PM Dictated: 02/25/20 1441 Transcribed: 02/25/20 1441 Cardiac monitoring: An order was placed for continuous cardiac monitoring. The monitor shows a rate of 100 with likely a flutter with variable block rhythm. MDM: Patient was seen due to concern for abdominal pain. Blood work was obtained. Patient has a mild white count which is elevated compared to prior. Patient's kidney function does show elevated BUN which is an acute change compared to prior. Given the patient's elevated BUN with a CT angiography which shows a left upper lobe consolidation patient does have an elevated curb 65 score of 2 which places the patient at moderate risk. Patient CT did not show any evidence of aneurysm or dissection. Appendix is normal. I did speak the on-call hospitalist and the patient was subsequently admitted to [facility] hospitalist service. Past Med/Surg History Medical History Acute kidney injury superimposed on CKD Anxiety Arthritis (Chronic) Asthma (Chronic) Atrial fibrillation (Chronic) Chronic back pain (Chronic) Chronic gastritis (Chronic) Chronic pain (Chronic) Chronic respiratory failure (Acute) CKD (chronic kidney disease), stage III (Chronic) COPD (chronic obstructive pulmonary disease) Diastolic CHF (Chronic) On 02/12/16 22:20 Ellie Bains wrote "per echo 09/30/15- EF 60-65%, mod LVH, mod MR, mod TR, dilated RV" DJD (degenerative joint disease), multiple sites (Chronic) DM type 2 (diabetes mellitus, type 2) (Chronic) DM2 (diabetes mellitus, type 2) (Chronic) Generalized anxiety disorder (Chronic) GERD (gastroesophageal reflux disease) (Chronic) History of pulmonary embolism (Chronic) HTN (hypertension) (Chronic) Hypertension (Chronic) Hyperuricemia (Chronic) Hypothyroidism (Chronic) Intertrigo Obesity (BMI 30-39.9) (Chronic) Psoriasis Stenosis of right carotid artery (Chronic) Surgical History History of hernia repair (Chronic) Status post cholecystectomy (Chronic) "Dr. Beavers [facility] 12/27/17" Family History Father Hypertension Diabetes Social History Preferred Language: Ghanaian Communication Ability: Impaired Double Cut Sawyer Required: No Beliefs That Will Affect Care: None marital status: / Current Living Situation: Intermediate Current Living Situation Comment: [facility] Feels Safe at Home: Yes Smoking Status: Never smoker Tobacco Type: cigarettes ; Second Hand Exposure: No ; Hx Alcohol Use: No Hx Substance Use: No Allergies Allergies Allergy/AdvReac Type Severity Reaction Status Date / Time meperidine [From Demerol] Allergy Unknown ON [facility] Verified 02/25/20 13:33 HILL LIST sulfite Allergy On [facility] Unverified 02/25/20 13:33 Jerman's list morphine AdvReac Intermediate vomiting Verified 02/25/20 13:33 oxycodone AdvReac Intermediate vomit blood Verified 02/25/20 13:33 propoxyphene AdvReac Intermediate abd vomit Verified 02/25/20 13:33 blood tramadol AdvReac Intermediate vomiting Verified 02/25/20 13:33 Bactrim AdvReac Mild GI SYMPTOMS Verified 03/06/18 21:06 codeine AdvReac Mild vomiting Verified 02/25/20 13:33 olmesartan AdvReac Mild GI SYMPTOMS Verified 02/25/20 13:33 Sulfa (Sulfonamide AdvReac Mild GI SYMPTOMS Verified 02/25/20 13:33 Antibiotics) sulfamethoxazole AdvReac Mild GI SYMPTOMS Verified 02/25/20 13:33 trimethoprim AdvReac Mild GI SYMPTOMS Verified 02/25/20 13:33 carisoprodol AdvReac Unknown GI SYMPTOMS Verified 02/25/20 13:33 Home Meds Home Medications Medication Instructions Recorded Confirmed acetaminophen [Tylenol] 650 mg PO Q4H PRN MDD 3,000 mg 11/01/18 02/25/20 allopurinol [Zyloprim] 200 mg PO QAM 11/01/18 02/25/20 docusate sodium [Colace] 100 mg PO BID 11/01/18 02/25/20 duloxetine [Cymbalta] 60 mg PO QAM 11/01/18 02/25/20 levothyroxine [Synthroid] 75 mcg PO DAILYBB 11/01/18 02/25/20 meclizine [Dramamine Less Drowsy] 25 mg PO TID PRN 11/01/18 02/25/20 melatonin 10 mg PO HS 11/01/18 02/25/20 montelukast [Singulair] 10 mg PO QPM 11/01/18 02/25/20 sucralfate [Carafate] 1 g PO AMPM 11/01/18 02/25/20 simethicone [Gas Relief 180 mg PO DAILY PRN 12/27/18 02/25/20 (simethicone)] Incruse Ellipta 1 inh INHALATION QAM 01/11/19 02/25/20 sennosides [senna] 8.6 mg PO BID 01/11/19 02/25/20 cholecalciferol (vitamin D3) 25 1,000 units PO QAM 06/11/19 02/25/20 mcg (1,000 unit) capsule digoxin 125 mcg (0.125 mg) tablet 125 mcg PO MOWEFR 06/11/19 02/25/20 spironolactone 25 mg tablet 25 mg PO QAM tab 06/11/19 02/25/20 buspirone 10 mg PO BID 07/09/19 02/25/20 metoprolol succinate [Toprol XL] 100 mg PO BID 07/09/19 02/25/20 Cepacol Sore Throat (nataliia-men) 1 huan PO Q2H PRN 12/25/19 02/25/20 famotidine [Pepcid] 20 mg PO BID 12/25/19 02/25/20 fentanyl [Duragesic] 25 mcg TOPICAL CQ72HR 12/25/19 02/25/20 fluticasone propion-salmeterol 1 ea INHALATION BID 12/25/19 02/25/20 [Advair Diskus] furosemide [Lasix] 80 mg PO QAM 12/25/19 02/25/20 guaifenesin [Mucinex] 600 mg PO BID 12/25/19 02/25/20 guaifenesin [Siltussin SA] 200 mg PO Q4H PRN 12/25/19 02/25/20 metolazone 2.5 mg PO WESA 12/25/19 02/25/20 trazodone 50 mg PO HS 12/25/19 02/25/20 Refresh Classic (PF) 2 drp OPB TID 01/22/20 02/25/20 glucosamine-chondroitin 1 tab PO TID 01/22/20 02/25/20 levalbuterol HCl [Xopenex] 0.63 mg INHALATION Q4H PRN 01/22/20 02/25/20 warfarin [Coumadin] 2 mg PO MOWEFR 01/22/20 02/25/20 ArgiMent AT 10 g PO BID 02/12/20 02/25/20 Enema 118 ml SC DAILY PRN 02/12/20 02/25/20 Micro-Guard 1 applic TOPICAL TID 02/12/20 02/25/20 acetaminophen [Tylenol Extra 1,000 mg PO Q8H PRN 02/12/20 02/25/20 Strength] betamethasone dipropionate 1 applic TOPICAL BID PRN 02/12/20 02/25/20 bisacodyl [Dulcolax (bisacodyl)] 10 mg SC DAILY PRN 02/12/20 02/25/20 magnesium hydroxide [Milk of 30 ml PO DAILY PRN 02/12/20 02/25/20 Magnesia] ondansetron HCl [Zofran] 8 mg PO Q8H PRN 02/12/20 02/25/20 tramadol [Ultram] 50 mg PO Q6H PRN MDD 300 mg 02/12/20 02/25/20 warfarin [Coumadin] 1 mg PO SUTUTHSA 02/12/20 02/25/20 lorazepam [Ativan] 0.5 mg PO BID PRN 02/25/20 02/25/20 Results & Data (ED) Vital Signs Vital Signs - 24 hr 02/25/20 13:19 02/25/20 13:54 02/25/20 15:26 Temperature 37.2 C Temperature Source Oral Pulse Rate 100 H Pulse Rate [Apical] 91 H 103 H Pulse Rhythm [Apical] Respiratory Rate 16 20 22 Blood Pressure 146/88 H Blood Pressure [Left Arm] 129/61 Blood Pressure [Right Arm] 96/68 L Blood Pressure Mean 107 Blood Pressure Mean [Left Arm] 83 Blood Pressure Mean [Right Arm] 77 Pulse Oximetry 94 100 97 Oxygen Delivery Method Room Air Nasal Cannula Room Air Oxygen Flow Rate 2 Sepsis Recent Fever Within 48 Hours No Sepsis Action Taken by Nursing No Action Required 02/25/20 16:27 02/25/20 17:25 02/25/20 18:16 Temperature Temperature Source Pulse Rate Pulse Rate [Apical] 106 H 102 H 96 H Pulse Rhythm [Apical] Irregular Respiratory Rate 17 13 23 Blood Pressure Blood Pressure [Left Arm] 144/81 H 145/83 H 122/77 Blood Pressure [Right Arm] Blood Pressure Mean Blood Pressure Mean [Left Arm] 102 103 92 Blood Pressure Mean [Right Arm] Pulse Oximetry 96 95 95 Oxygen Delivery Method Room Air Nasal Cannula Nasal Cannula Oxygen Flow Rate 2 2 Sepsis Recent Fever Within 48 Hours Sepsis Action Taken by Nursing Laboratory Data Result diagrams: 02/25/20 13:10 02/25/20 13:10 Lab Results 02/25/20 02/25/20 02/25/20 Range/Units 13:10 13:10 13:45 WBC 15.66 H (4.8-10.8) K/uL RBC 3.11 L (4.2-5.4) M/uL Hgb 10.2 L (12.0-16.0) g/dL POC Hgb (12.0-16.0) g/dl Hct 31.4 L (37-47) % POC Hct (37-47) % MCV 101.0 H (80-100) fL MCH 32.8 (25-34) pg MCHC 32.5 (32-36) g/dL RDW Std Deviation 62.3 H (36.4-46.3) fL RDW Coeff of Kenneth 17.1 H (11.5-14.5) % Plt Count 336 (130-400) K/uL MPV 11.2 H (7.4-10.4) fL Immature Gran % (Auto) 0.4 % Neut % (Auto) 73.7 % Lymph % (Auto) 14.4 % [place] % (Auto) 9.6 % Eos % (Auto) 1.7 % Baso % (Auto) 0.2 % Immature Gran # (Auto) 0.06 H (0.00-0.02) K/uL Neut # (Auto) 11.56 H (1.4-6.5) K/uL Lymph # (Auto) 2.25 (1.2-3.4) K/uL [place] # (Auto) 1.50 H (0.11-0.59) K/uL Eos # (Auto) 0.26 (0-0.5) K/uL Baso # (Auto) 0.03 (0-0.2) K/uL POC Sodium (135-144) mmol/L Sodium 137 (136-145) mmol/L POC Potassium (3.3-5.0) mmol/L Potassium 3.4 L (3.5-5.1) mmol/L POC Chloride (101-112) mmol/L Chloride 101 (98-107) mmol/L Carbon Dioxide 26 (21-32) mmol/L POC Total CO2 (24-31) mmol/L Anion Gap 10.0 (3-11) POC Anion Gap (16-25) mmol/L POC BUN (7-18) mg/dl BUN 71 H (7-18) mg/dl Creatinine 1.29 H (0.6-1.2) mg/dl POC Creatinine (0.6-1.3) mg/dl Est Cr Clr Drug Dosing 45.0 ml/min Est GFR ( Amer) 45.9 Est GFR (Non-Af Amer) 39.6 BUN/Creatinine Ratio 55.3 H (10-20) Glucose 170 H (70-99) mg/dl POC Glucose (other) (70-99) mg/dl Calcium 10.0 (8.5-10.1) mg/dl POC Ioniz Calcium Caroline (1.12-1.32) mmol/l Total Bilirubin 0.5 (0.2-1) mg/dl AST 26 (15-37) U/L ALT 17 (12-78) U/L Alkaline Phosphatase 96 (45-117) U/L Total Protein 7.5 (6.4-8.2) gm/dl Albumin 3.1 L (3.4-5.0) gm/dl Globulin 4.4 H (2.5-4.0) gm/dl Albumin/Globulin Ratio 0.7 L (0.9-2) Lipase 38 L (73-393) U/L Specimen Hemolysis Urine Color Urine Appearance (Clear) Urine pH (4.5-7.5) Ur Specific [place] (1.000-1.030) Urine Protein (Negative) Urine Glucose (UA) (Negative) Urine Ketones (Negative) Urine Blood (Negative) Urine Nitrite (Negative) Urine Bilirubin (Negative) Urine Urobilinogen (Negative) Ur Leukocyte Esterase (Negative) Blood Type A Negative Antibody Screen NEGATIVE 02/25/20 02/25/20 Range/Units 13:48 16:50 WBC (4.8-10.8) K/uL RBC (4.2-5.4) M/uL Hgb (12.0-16.0) g/dL POC Hgb 11.2 L (12.0-16.0) g/dl Hct (37-47) % POC Hct 33 L (37-47) % MCV (80-100) fL MCH (25-34) pg MCHC (32-36) g/dL RDW Std Deviation (36.4-46.3) fL RDW Coeff of Kenneth (11.5-14.5) % Plt Count (130-400) K/uL MPV (7.4-10.4) fL Immature Gran % (Auto) % Neut % (Auto) % Lymph % (Auto) % [place] % (Auto) % Eos % (Auto) % Baso % (Auto) % Immature Gran # (Auto) (0.00-0.02) K/uL Neut # (Auto) (1.4-6.5) K/uL Lymph # (Auto) (1.2-3.4) K/uL [place] # (Auto) (0.11-0.59) K/uL Eos # (Auto) (0-0.5) K/uL Baso # (Auto) (0-0.2) K/uL POC Sodium 138 (135-144) mmol/L Sodium (136-145) mmol/L POC Potassium 3.5 (3.3-5.0) mmol/L Potassium (3.5-5.1) mmol/L POC Chloride 99 L (101-112) mmol/L Chloride (98-107) mmol/L Carbon Dioxide (21-32) mmol/L POC Total CO2 29 (24-31) mmol/L Anion Gap (3-11) POC Anion Gap 15.0 L (16-25) mmol/L POC BUN 69 H (7-18) mg/dl BUN (7-18) mg/dl Creatinine (0.6-1.2) mg/dl POC Creatinine 1.1 (0.6-1.3) mg/dl Est Cr Clr Drug Dosing ml/min Est GFR ( Amer) Est GFR (Non-Af Amer) BUN/Creatinine Ratio (10-20) Glucose (70-99) mg/dl POC Glucose (other) 160 H (70-99) mg/dl Calcium (8.5-10.1) mg/dl POC Ioniz Calcium Caroline 1.15 (1.12-1.32) mmol/l Total Bilirubin (0.2-1) mg/dl AST (15-37) U/L ALT (12-78) U/L Alkaline Phosphatase (45-117) U/L Total Protein (6.4-8.2) gm/dl Albumin (3.4-5.0) gm/dl Globulin (2.5-4.0) gm/dl Albumin/Globulin Ratio (0.9-2) Lipase (73-393) U/L Specimen Hemolysis Urine Color Yellow Urine Appearance Clear (Clear) Urine pH 7.0 (4.5-7.5) Ur Specific [place] 1.015 (1.000-1.030) Urine Protein Negative (Negative) Urine Glucose (UA) Negative (Negative) Urine Ketones Negative (Negative) Urine Blood Negative (Negative) Urine Nitrite Negative (Negative) Urine Bilirubin Negative (Negative) Urine Urobilinogen Negative (Negative) Ur Leukocyte Esterase Negative (Negative) Blood Type Antibody Screen Administered Medications Ioversol (Optiray 320 125ml) 120 ml IV ONCE PRN PRN Reason: Interaction Checking Stop: 02/29/20 14:31 Last Admin: 02/25/20 14:34 Dose: 120 ml Documented by: [id number] Discontinued Medications Sodium Chloride (Nss 1000ml) 500 mls @ 999 mls/hr IV .Q31M ONE Stop: 02/25/20 15:49 Last Infusion: 02/25/20 17:21 Dose: 0 mls/hr Documented by: [id number] Admin: 02/25/20 16:50 Dose: 999 mls/hr Documented by: [id number] Ceftriaxone Sodium (Rocephin) 2,000 mg in 70 mls @ 140 mls/hr IV NOW STA Stop: 02/25/20 16:26 Last Infusion: 02/25/20 17:20 Dose: 0 mls/hr Documented by: [id number] Admin: 02/25/20 16:50 Dose: 140 mls/hr Documented by: [id number] Morphine Sulfate (Morphine Sulfate) 4 mg IV NOW STA Stop: 02/25/20 13:32 Last Admin: 02/25/20 14:53 Dose: Not Given Documented by: [id number] Ondansetron HCl (Zofran) 4 mg IV NOW STA Stop: 02/25/20 13:32 Last Admin: 02/25/20 14:53 Dose: Not Given Documented by: [id number] Discharge Plan Visit Data Chief Complaint: Illness ED Provider: Jose Schneider Discharge Problem: Pneumonia, Abdominal pain Forms Stand Alone Forms: [facility] Prescriptions Prescriptions: No Action digoxin [Digox] 125 mcg tablet 125 mcg PO MOWEFR RF: 0 spironolactone [Aldactone] 25 mg tablet 25 mg PO QAM RF: 0 cholecalciferol (vitamin D3) 1,000 unit capsule 1,000 units PO QAM RF: 0 sucralfate [Carafate] 1 gram Tablet 1 g PO AMPM RF: 0 allopurinol [Zyloprim] 100 mg Tablet 200 mg PO QAM RF: 0 levothyroxine [Synthroid] 75 mcg Tablet 75 mcg PO DAILYBB RF: 0 meclizine [Dramamine Less Drowsy] 25 mg Tablet 25 mg PO TID PRN (Reason: Dizziness) RF: 0 docusate sodium [Colace] 100 mg Capsule 100 mg PO BID RF: 0 montelukast [Singulair] 10 mg Tablet 10 mg PO QPM RF: 0 duloxetine [Cymbalta] 60 mg Capsule,Delayed Release(Dr/Ec) 60 mg PO QAM RF: 0 acetaminophen [Tylenol] 325 mg Capsule 650 mg PO Q4H MDD 3,000 mg PRN (Reason: Fever) RF: 0 melatonin 10 mg Tablet 10 mg PO HS RF: 0 simethicone [Gas Relief (simethicone)] 180 mg Capsule 180 mg PO DAILY PRN (Reason: Gastrointestinal Spasms Or Cramping) RF: 0 sennosides [senna] 8.6 mg Tablet 8.6 mg PO BID RF: 0 Incruse Ellipta 62.5 mcg/actuation Blister With Device 1 inh INHALATION QAM RF: 0 warfarin [Coumadin] 1 mg tablet 1 mg PO SUTUTHSA RF: 0 ondansetron HCl [Zofran] 8 mg Tablet 8 mg PO Q8H PRN (Reason: Nausea) RF: 0 tramadol [Ultram] 50 mg Tablet 50 mg PO Q6H MDD 300 mg PRN (Reason: Pain) RF: 0 acetaminophen [Tylenol Extra Strength] 500 mg Tablet 1,000 mg PO Q8H PRN (Reason: Pain) RF: 0 magnesium hydroxide [Milk of Magnesia] 400 mg/5 mL Suspension 30 ml PO DAILY PRN (Reason: Constipation) RF: 0 bisacodyl [Dulcolax (bisacodyl)] 10 mg Suppository 10 mg SC DAILY PRN (Reason: Constipation) RF: 0 Enema 19-7 gram/118 mL Enema 118 ml SC DAILY PRN (Reason: Constipation) RF: 0 ArgiMent AT 10 gram-7 gram/42.75 gram Powder In Packet 10 g PO BID RF: 0 Micro-Guard 2 % Powder 1 applic TOPICAL TID RF: 0 betamethasone dipropionate 0.05 % Ointment 1 applic TOPICAL BID PRN (Reason: Dermatitis) RF: 0 buspirone 10 mg Tablet 10 mg PO BID RF: 0 metoprolol succinate [Toprol XL] 100 mg Tablet Extended Release 24 Hr 100 mg PO BID RF: 0 metolazone 2.5 mg Tablet 2.5 mg PO WESA RF: 0 trazodone 50 mg tablet 50 mg PO HS RF: 0 guaifenesin [Siltussin SA] 100 mg/5 mL Liquid 200 mg PO Q4H PRN (Reason: Cough) RF: 0 famotidine [Pepcid] 20 mg tablet 20 mg PO BID RF: 0 furosemide [Lasix] 80 mg tablet 80 mg PO QAM RF: 0 fluticasone propion-salmeterol [Advair Diskus] 500-50 mcg/dose blister with device 1 ea INHALATION BID RF: 0 fentanyl [Duragesic] 25 mcg/hr patch 72 hour 25 mcg topical [id number] RF: 0 Cepacol Sore Throat (nataliia-men) 15-2.6 mg Lozenge 1 huan PO Q2H PRN (Reason: Sore Throat) RF: 0 guaifenesin [Mucinex] 600 mg Tablet Extended Release 12hr 600 mg PO BID RF: 0 levalbuterol HCl [Xopenex] 0.63 mg/3 mL Solution For Nebulization 0.63 mg INHALATION Q4H PRN (Reason: Wheezing) RF: 0 Refresh Classic (PF) 1.4-0.6 % dropperette 2 drp OPB TID RF: 0 glucosamine-chondroitin 250-200 mg Tablet 1 tab PO TID RF: 0 warfarin [Coumadin] 1 mg Tablet 2 mg PO MOWEFR RF: 0 lorazepam [Ativan] 0.5 mg Tablet 0.5 mg PO BID PRN (Reason: Anxiety) RF: 0 Discharge Problem: Pneumonia Qualifiers: Pneumonia type: due to unspecified organism Laterality: left Lung location: upper lobe of lung Qualified Code(s): J18.9 - Pneumonia, unspecified organism Abdominal pain Qualifiers: Abdominal location: periumbilical Qualified Code(s): R10.33 - Periumbilical pain
[2020-02-25 13:50] LABS: Albumin Level 3.1 gm/dl (3.4-5.0); BUN Creatinine Ratio 55.3 (10-20); Est GFR (African American) 45.9; Est GFR (Non-African American) 39.6; Potassium 3.4 mmol/L (3.5-5.1)
[2020-02-25 14:01] LABS: Albumin Globulin Ratio 0.7 (0.9-2); Bilirubin,Total 0.5 mg/dl (0.2-1); Globulin 4.4 gm/dl (2.5-4.0); Total Protein 7.5 gm/dl (6.4-8.2)
[2020-02-25 14:01] LABS: iSTAT Creatinine 1.1 mg/dl (0.6-1.3); iSTAT Hemoglobin 11.2 g/dl (12.0-16.0); iSTAT Ionized Calcium 1.15 mmol/l (1.12-1.32); iSTAT Potassium 3.5 mmol/L (3.3-5.0)
[2020-02-25] MEDS ORDERED: OPTIRAY 320 125ml IV PRN (14:32)
--- NOTE | 2020-02-25 14:47 | CT Scan Report ---
CT angio chest dissec wo/w con CT DOSE: 3589.57 mGy.cm HISTORY: Pain. mid ab pain; r/o dissection TECHNIQUE: Multiaxial CT images of the chest, abdomen, and pelvis were performed both before and afte r the intravenous administration of contrast to evaluate the aorta. Maximal intensity projection imag es were also obtained. A dose lowering technique was utilized adhering to the principles of ALARA. COMPARISON STUDY: 07/03/2019 FINDINGS: Thoracic aorta enhances appropriately. No evidence for aneurysm or dissection. Moderate ath erosclerotic change. Pulmonary vasculature enhances appropriately. Slight interstitial prominence throughout both hemithoraces. Focal infiltrative process left upper anibal ng image 23. This less likely represents parenchymal nodularity due to the short interval timeframe f rom the prior study. Significant degenerative change throughout the thoracic spine with evidence for moderate kyphosis. IMPRESSION: 1. No evidence for aneurysm or dissection. 2. Mild interstitial prominence throughout both hemithoraces. 3. Small focal consolidative infiltrate left upper lung. ACT 112: Negative or not required by law. The above report was generated using voice recognition software. It may contain grammatical, syntax or spelling errors. Electronically signed by: Brain nA M.D. 02/25/2020 2:46 PM
--- NOTE | 2020-02-25 14:52 | CT Scan Report ---
CT angio abdomen pelvis w con HISTORY: mid ab pain TECHNIQUE: Multiaxial CT images of the abdomen and pelvis were performed following the use of intrave nous contrast to evaluate the major arterial structures. Maximal intensity images were also obtained. COMPARISON STUDY: Abdomen and pelvis CT 01/22/2020. FINDINGS: Please refer to the same day chest CTA for further evaluation of the thoracic aorta. There is motion artifact within the abdomen and pelvis resulting in suboptimal evaluation. This results in suboptimal evaluation of the upper abdomen. Moderate calcified plaque at the origins of the celiac, s uperior mesenteric, and renal arteries. This results in at least 50% stenosis within the superior mes enteric and left renal artery. However, this is difficult to quantitate given the motion artifact. Th e degree of stenosis in the celiac artery is also essentially nondiagnostic given the motion artifact . Abdominal aorta is normal in course and caliber with no evidence for dissection. The bilateral chad c arteries are widely patent. The IVC is also patent. The main portal vein is likely patent. No pneumoperitoneum. No pneumatosis. No fractures within the visualized osseous structures. Midline a bdominal wall laxity is noted. Evidence for midline ventral hernia repair. Cholecystectomy. No defini te hepatic or splenic masses. The adrenal glands and pancreas are unremarkable. Moderate bilateral co rtical renal thinning. Subcentimeter hypodensities are too small to characterize but favor cysts. No hydronephrosis. No retroperitoneal lymphadenopathy. The bladder, uterus, left adnexa are unremarkable . There is a 3.4 cm right adnexal cyst, unchanged. Colonic diverticulosis. No evidence for diverticul itis. No definite bowel wall thickening or obstruction. Normal appendix. IMPRESSION: 1. Normal caliber abdominal aorta with no evidence for dissection. 2. Moderate calcified plaque at the origins of the celiac, superior mesenteric, and left renal arteri es resulting in moderate stenosis. 3. Please refer to the same day chest CT for further evaluation of the thoracic aorta. 4. Additional findings as described above. ACT 112: Negative or not required by law. Electronically signed by: Neo Alcazar M.D. 02/25/2020 2:50 PM
[2020-02-25] MEDS ORDERED: SODIUM CHLORIDE 0.9% 1000ML 500 ML IV ONE (15:19)
[2020-02-25] MEDS ORDERED: cefTRIAXone SODIUM 2,000 MG/70 ML BAG IV STA (15:57)
[2020-02-25 17:01] LABS: Appearance Urine Clear (Clear); Bilirubin Urine Negative (Negative); Blood Urine Negative (Negative); Color Urine Yellow; Glucose Urine UA Negative (Negative); Ketones Urine Negative (Negative); Leukocyte Esterase Urine Negative (Negative); Nitrite Urine Negative (Negative); Protein Urine Negative (Negative); Specific Gravity Urine 1.015 (1.000-1.030); Urobilinogen Urine Negative (Negative)
--- NOTE | 2020-02-25 17:59 | History & Physical Report ---
Date of Service 79 yo female here for long stays twice in the last month returns today c abdominal pain. The pain started last night and is in the middle of her abdomen. The patient did have an episode of nausea and vomiting yesterday as well. Per ER the Patient does not present with cough, fevers, chills, coronavirus contacts, coronavirus testing, or recent travel. The patient is DNR/DNI. Patient did have sinus issues with respiratory failure and does chronically use oxygen. On CT chest she was found to have a Pneumonia and labs revealed a Leukocytosis. SHe had enterococcus in her urine on a previous culture. February 25, 2020 Assessment & Plan (1) Pneumonia: (2) Anxiety: (3) COVID-19 ruled out: (4) Leukocytosis: (5) COPD (chronic obstructive pulmonary disease): (6) Anticoagulated on Coumadin: (7) Atrial fibrillation: (8) CKD (chronic kidney disease), stage III: (9) GERD (gastroesophageal reflux disease): (10) Chronic back pain: (11) Generalized anxiety disorder: (12) History of pulmonary embolism: (13) Hypothyroidism: (14) Hypertension: (15) DM type 2 (diabetes mellitus, type 2): SSI, Rocephin and Zithromax, Nebs, NPO except meds, Await Covid result, ABG, Isolation Labs checked ROS-No Headache, No Visual Changes, + Nausea, + Vomiting, No Fever, No Chills, No Neck Pain or Stiffness, No Chest Pain, No Palpitations, No SOB, No BARBOUR, No Cough, No Sputum, No Wheezing, No Abdominal Pain, No Diarrhea, No Hematemesis, No Hemoptysis, No Unexpected Weight Loss, No Flank pain, No Melena, No Hematochezia, No Frequency, No Urgency, No Burning, No Hematuria, No Rashes, No Diaphoresis. Appetite is Normal Physical Exam Gen-AAO x 3, Not herself, NAD, Afebrile, obese Head-NCAT, EOMI, PERRLA, Anicteric Sclera, No Posterior Pharyngeal Erythema Neck-Supple, No JVD, No Thyromegaly, No Masses, No LAD, No Bruits Lungs-Clear to Auscultation Bilaterally, No Rales, No Rhonchi, No Wheezing, No Crepitus Chest-No S4, +S1, +S2, No S3, No Murmurs, No Rubs, No Gallops, No Ectopy Abdomen-Soft, Bowel Sounds Present, Non Tender, Non Distended, No Hepatomegaly, No Splenomegaly, No Palpable Masses, No Rebound, No Rigidity, No Guarding Musculoskeletal-Full Range of Motion Bilaterally, No CVAT Extremities-LLE wrapped Nuero-Cranial Nerves II-XII grossly intact, Motor WNL, DTRs WNL, Strength WNL, Non Focal Psych-Odd Affect History of Present Illness Primary Care Provider: [facility] Allergies Allergy/AdvReac Type Severity Reaction Status Date / Time meperidine [From Demerol] Allergy Unknown ON [facility] Verified 02/25/20 13:33 [place] LIST sulfite Allergy On [facility] Unverified 02/25/20 13:33 [place] list morphine AdvReac Intermediate vomiting Verified 02/25/20 13:33 oxycodone AdvReac Intermediate vomit blood Verified 02/25/20 13:33 propoxyphene AdvReac Intermediate abd vomit Verified 02/25/20 13:33 blood tramadol AdvReac Intermediate vomiting Verified 02/25/20 13:33 Bactrim AdvReac Mild GI SYMPTOMS Verified 03/06/18 21:06 codeine AdvReac Mild vomiting Verified 02/25/20 13:33 olmesartan AdvReac Mild GI SYMPTOMS Verified 02/25/20 13:33 Sulfa (Sulfonamide AdvReac Mild GI SYMPTOMS Verified 02/25/20 13:33 Antibiotics) sulfamethoxazole AdvReac Mild GI SYMPTOMS Verified 02/25/20 13:33 trimethoprim AdvReac Mild GI SYMPTOMS Verified 02/25/20 13:33 carisoprodol AdvReac Unknown GI SYMPTOMS Verified 02/25/20 13:33 Home Medications Home Medications Medication Instructions Recorded Confirmed Type acetaminophen [Tylenol] 650 mg PO Q4H PRN MDD 3,000 mg 11/01/18 02/25/20 History allopurinol [Zyloprim] 200 mg PO QAM 11/01/18 02/25/20 History docusate sodium [Colace] 100 mg PO BID 11/01/18 02/25/20 History duloxetine [Cymbalta] 60 mg PO QAM 11/01/18 02/25/20 History levothyroxine [Synthroid] 75 mcg PO DAILYBB 11/01/18 02/25/20 History meclizine [Dramamine Less Drowsy] 25 mg PO TID PRN 11/01/18 02/25/20 History melatonin 10 mg PO HS 11/01/18 02/25/20 History montelukast [Singulair] 10 mg PO QPM 11/01/18 02/25/20 History sucralfate [Carafate] 1 g PO AMPM 11/01/18 02/25/20 History simethicone [Gas Relief 180 mg PO DAILY PRN 12/27/18 02/25/20 History (simethicone)] Incruse Ellipta 1 inh INHALATION QAM 01/11/19 02/25/20 History sennosides [senna] 8.6 mg PO BID 01/11/19 02/25/20 History cholecalciferol (vitamin D3) 25 1,000 units PO QAM 06/11/19 02/25/20 History mcg (1,000 unit) capsule digoxin 125 mcg (0.125 mg) tablet 125 mcg PO MOWEFR 06/11/19 02/25/20 History spironolactone 25 mg tablet 25 mg PO QAM tab 06/11/19 02/25/20 History buspirone 10 mg PO BID 07/09/19 02/25/20 History metoprolol succinate [Toprol XL] 100 mg PO BID 07/09/19 02/25/20 History Cepacol Sore Throat (nataliia-men) 1 huan PO Q2H PRN 12/25/19 02/25/20 History famotidine [Pepcid] 20 mg PO BID 12/25/19 02/25/20 History fentanyl [Duragesic] 25 mcg TOPICAL [id number] 12/25/19 02/25/20 History fluticasone propion-salmeterol 1 ea INHALATION BID 12/25/19 02/25/20 History [Advair Diskus] furosemide [Lasix] 80 mg PO QAM 12/25/19 02/25/20 History guaifenesin [Mucinex] 600 mg PO BID 12/25/19 02/25/20 History guaifenesin [Siltussin SA] 200 mg PO Q4H PRN 12/25/19 02/25/20 History metolazone 2.5 mg PO WESA 12/25/19 02/25/20 History trazodone 50 mg PO HS 12/25/19 02/25/20 History Refresh Classic (PF) 2 drp OPB TID 01/22/20 02/25/20 History glucosamine-chondroitin 1 tab PO TID 01/22/20 02/25/20 History levalbuterol HCl [Xopenex] 0.63 mg INHALATION Q4H PRN 01/22/20 02/25/20 History warfarin [Coumadin] 2 mg PO MOWEFR 01/22/20 02/25/20 History ArgiMent AT 10 g PO BID 02/12/20 02/25/20 History Enema 118 ml NH DAILY PRN 02/12/20 02/25/20 History Micro-Guard 1 applic TOPICAL TID 02/12/20 02/25/20 History acetaminophen [Tylenol Extra 1,000 mg PO Q8H PRN 02/12/20 02/25/20 History Strength] betamethasone dipropionate 1 applic TOPICAL BID PRN 02/12/20 02/25/20 History bisacodyl [Dulcolax (bisacodyl)] 10 mg NH DAILY PRN 02/12/20 02/25/20 History magnesium hydroxide [Milk of 30 ml PO DAILY PRN 02/12/20 02/25/20 History Magnesia] ondansetron HCl [Zofran] 8 mg PO Q8H PRN 02/12/20 02/25/20 History tramadol [Ultram] 50 mg PO Q6H PRN MDD 300 mg 02/12/20 02/25/20 History warfarin [Coumadin] 1 mg PO SUTUTHSA 02/12/20 02/25/20 History lorazepam [Ativan] 0.5 mg PO BID PRN 02/25/20 02/25/20 History Past Med/Surg History Medical History Acute kidney injury superimposed on CKD Anxiety Arthritis (Chronic) Asthma (Chronic) Atrial fibrillation (Chronic) Chronic back pain (Chronic) Chronic gastritis (Chronic) Chronic pain (Chronic) Chronic respiratory failure (Acute) CKD (chronic kidney disease), stage III (Chronic) COPD (chronic obstructive pulmonary disease) Diastolic CHF (Chronic) On 02/12/16 22:20 Ellie Herson wrote "per echo 09/30/15- EF 60-65%, mod LVH, mod MR, mod TR, dilated RV" DJD (degenerative joint disease), multiple sites (Chronic) DM type 2 (diabetes mellitus, type 2) (Chronic) DM2 (diabetes mellitus, type 2) (Chronic) Generalized anxiety disorder (Chronic) GERD (gastroesophageal reflux disease) (Chronic) History of pulmonary embolism (Chronic) HTN (hypertension) (Chronic) Hypertension (Chronic) Hyperuricemia (Chronic) Hypothyroidism (Chronic) Intertrigo Obesity (BMI 30-39.9) (Chronic) Psoriasis Stenosis of right carotid artery (Chronic) Surgical History History of hernia repair (Chronic) Status post cholecystectomy (Chronic) "Dr. Beavers [facility] 12/27/17" Family History Father Hypertension Diabetes Social History Preferred Language: Cypriot Communication Ability: Impaired Skin Lifter Bacon Required: No Beliefs That Will Affect Care: None marital status: / Current Living Situation: [facility] Current Living Situation Comment: [facility] Feels Safe at Home: Yes Smoking Status: Never smoker Tobacco Type: cigarettes ; Second Hand Exposure: No ; Hx Alcohol Use: No Hx Substance Use: No Results & Data Results & Data ([facility]) Vital Signs (Past 12 Hours) Vital Signs Temp Pulse Pulse Resp BP BP BP 02/25/20 17:25 102 H 13 145/83 H 02/25/20 16:27 106 H 17 144/81 H 02/25/20 15:26 103 H 22 129/61 02/25/20 13:54 91 H 20 96/68 L 02/25/20 13:19 37.2 C 100 H 16 146/88 H Pulse Ox 02/25/20 17:25 95 02/25/20 16:27 96 02/25/20 15:26 97 02/25/20 13:54 100 02/25/20 13:19 94 (1) Atrial fibrillation Atrial fibrillation type: unspecified Qualified Code(s): I48.91 - Unspecified atrial fibrillation
[2020-02-25] MEDS ORDERED: VANCOMYCIN CONSULT ACTIVE PRN (18:30)
[2020-02-25] MEDS ORDERED: VANCOMYCIN HCL 2,000 MG in SODIUM CHLORIDE 0.9% 500 ML IV STA (19:01)
[2020-02-25] MEDS ORDERED: GLUCOSE 40% GEL 15 GM TUBE PO PRN (21:19)
[2020-02-25] MEDS ORDERED: DEXTROSE 50% 50 ML SYRINGE IV PRN (21:19)
[2020-02-25] MEDS ORDERED: CARBOHYDRATES FOR HYPOGLYCEMIA PO PRN (21:19)
[2020-02-25] MEDS ORDERED: bisacodyL 10 MG SUPP PR PRN (21:19)
[2020-02-25] MEDS ORDERED: SOD PHOSPHATE/SOD BIPHOSPHATE ENEMA 132 ML BTL PR PRN (21:19)
[2020-02-25] MEDS ORDERED: [UNRECOGNIZED DRUG - OTHER] PO SCH (21:19)
[2020-02-25] MEDS ORDERED: guaiFENesin SUGAR FREE 100 MG/5 ML UDC PO PRN (21:19)
[2020-02-25] MEDS ORDERED: GLUCAGON FOR INJ 1 MG VIAL SQ PRN (21:19)
[2020-02-25] MEDS ORDERED: LEVALBUTEROL HCL 0.63 MG/3 ML NEB INH PRN (21:19)
[2020-02-25] MEDS ORDERED: GLUCOSE 10 TABS/TUBE PO PRN (21:19)
[2020-02-25] MEDS ORDERED: TRAMADOL HCL 50 MG TABLET PO PRN (21:19)
[2020-02-25] MEDS ORDERED: MAGNESIUM HYDROXIDE SUSP 30 ML UDC PO PRN (21:19)
[2020-02-25] MEDS ORDERED: NON-FORMULARY MEDICATION (Glucosamine-Chondroitin 1 TAB) PO SCH (21:19)
[2020-02-25] MEDS ORDERED: MECLIZINE HCL 25 MG TAB PO PRN (21:33)
[2020-02-25] MEDS ORDERED: PHARMACY GLYCEMIC MGMT CONSULT PRN (21:35)
[2020-02-25 21:37] LABS: HCO3 ABG 27 mmol/L (19-24); Oxygen Saturation ABG 96.6 % (90-95); PCO2 ABG 40 mmHg (35-46); PO2 ABG 84 mmHg (80-95); pH ABG 7.45 (7.35-7.45)
[2020-02-25 21:41] LABS: INR 1.6 (0.9-1.1); Prothrombin Time 16.2 Seconds (9.0-12.0)
[2020-02-25] MEDS ORDERED: SIMETHICONE 80 MG CHEW PO PRN (21:41)
[2020-02-25 21:44] LABS: Allen Test Pos (Pos)
[2020-02-25] MEDS ORDERED: COUGH DROP (SUGAR FREE) LOZ 24 LOZ/1 BOX BUCCAL PRN (21:46)
[2020-02-25] MEDS ORDERED: BETAMETHASONE DIP AUG (DIPROLENE) 0.05% CR 15 GM TUBE EXT PRN (21:53)
[2020-02-25] MEDS ORDERED: ONDANSETRON 4 MG OD TAB PO PRN (21:54)
[2020-02-25] MEDS ORDERED: fentaNYL 25 MCG/HR TDSY TD SCH (22:00)
[2020-02-25] MEDS: MICONAZOLE NITRATE POWDER 43 GM TOP SCH (22:17)
[2020-02-25] MEDS: TRAZODONE HCL 50 MG TAB PO SCH (22:18)
[2020-02-25] MEDS: SUCRALFATE 1 GM TAB PO SCH (22:18)
[2020-02-25] MEDS: METOPROLOL SUCC 50MG EXT REL TAB PO SCH (22:19)
[2020-02-25] MEDS: DOCUSATE SODIUM 100 MG CAP PO SCH (22:19)
[2020-02-25] MEDS: DIGOXIN 0.125 MG TAB PO SCH (22:20)
[2020-02-25] MEDS: guaiFENesin 600 MG TABCR PO SCH (22:20)
[2020-02-25] MEDS: WARFARIN SOD 2 MG TAB PO SCH (22:22)
[2020-02-25] MEDS: MELATONIN 3 MG TAB PO SCH (22:25)
[2020-02-25] MEDS: SENNA 8.6 MG TAB PO SCH (22:26)
[2020-02-25] MEDS: MONTELUKAST SODIUM 10 MG TABLET PO SCH (22:26)
[2020-02-25] MEDS: INSULIN ASPART 100 UNITS/ML 3 ML PEN SC SCH (22:27)
[2020-02-25] MEDS: AZITHROMYCIN 500 MG in DEXTROSE 5% 250 ML IV SCH (22:32)
[2020-02-26] MEDS: CHECK FENTANYL PATCH PLACEMENT SCH ×3 (00:18→15:36)
[2020-02-26] MEDS: ACETAMINOPHEN 325 MG TAB PO PRN (01:41)
[2020-02-26] MEDS: LORazepam 0.5 MG TAB PO PRN ×2 (01:41→16:05)
[2020-02-26 07:06] LABS: Basophils # (auto) 0.02 K/uL (0-0.2); Basophils % (auto) 0.2 %; Eosinophils # (auto) 0.39 K/uL (0-0.5); Eosinophils % (auto) 3.5 %; Hematocrit (blood only) 30.4 % (37-47); Hemoglobin 9.9 g/dL (12.0-16.0); Immature Granulocytes # (auto) 0.03 K/uL (0.00-0.02); Immature Granulocytes % (auto) 0.3 %; Lymphocytes # (auto) 1.64 K/uL (1.2-3.4); Lymphocytes % (auto) 14.6 %; Mean Corpuscular Hemoglobin 32.8 pg (25-34); Mean Corpuscular Hgb Conc 32.6 g/dL (32-36); Mean Corpuscular Volume 100.7 fL (80-100); Mean Platelet Volume 10.7 fL (7.4-10.4); Monocytes % (auto) 10.6 %; Neutrophils # (auto) 7.99 K/uL (1.4-6.5); Neutrophils % (auto) 70.8 %; Nucleated RBC # (auto) 0.02 K/uL (0-0); Nucleated RBC % (auto) 0.1 %; Platelet Count 312 K/uL (130-400); RDW Coefficient of Variation 17.1 % (11.5-14.5); RDW Standard Deviation 62.2 fL (36.4-46.3); Red Blood Count 3.02 M/uL (4.2-5.4); White Blood Count 11.27 K/uL (4.8-10.8)
[2020-02-26] MEDS: INSULIN ASPART 100 UNITS/ML 3 ML PEN SC SCH ×3 (07:17→17:53)
[2020-02-26 07:20] LABS: INR 1.6 (0.9-1.1); Prothrombin Time 16.1 Seconds (9.0-12.0)
[2020-02-26 07:44] LABS: Albumin Level 2.8 gm/dl (3.4-5.0); BUN Creatinine Ratio 48.3 (10-20); Calcium 9.2 mg/dl (8.5-10.1); Creatinine Clr Calc Pharmacy 50.1 ml/min; Est GFR (African American) 52.2; Est GFR (Non-African American) 45.1; Potassium 2.7 mmol/L (3.5-5.1)
[2020-02-26] MEDS: SENNA 8.6 MG TAB PO SCH ×2 (07:51→22:03)
[2020-02-26] MEDS: SPIRONOLACTONE 25 MG TAB PO SCH (07:51)
[2020-02-26] MEDS: SUCRALFATE 1 GM TAB PO SCH ×2 (07:51→22:03)
[2020-02-26] MEDS: CHOLECALCIFEROL 1,000 UNITS 25 MCG TAB PO SCH (07:52)
[2020-02-26] MEDS: guaiFENesin 600 MG TABCR PO SCH ×2 (07:52→22:03)
[2020-02-26 07:53] LABS: Albumin Globulin Ratio 0.7 (0.9-2); Bilirubin,Total 0.6 mg/dl (0.2-1); Globulin 4.2 gm/dl (2.5-4.0)
[2020-02-26] MEDS: METOPROLOL SUCC 50MG EXT REL TAB PO SCH ×2 (07:53→22:06)
[2020-02-26] MEDS: allopurinoL 100 MG TAB PO SCH (07:53)
[2020-02-26] MEDS: DULOXETINE HCL 60 MG CAP PO SCH (07:54)
[2020-02-26] MEDS: DOCUSATE SODIUM 100 MG CAP PO SCH ×2 (07:54→22:03)
[2020-02-26] MEDS: FUROSEMIDE 80 MG TAB PO SCH (07:54)
[2020-02-26] MEDS: ARTIFICIAL TEARS OP SCH ×3 (07:55→22:06)
[2020-02-26] MEDS: UMECLIDINIUM BROMIDE 62.5MCG/BLISTER 7 PUFFS/INHALER INH SCH (07:56)
[2020-02-26] MEDS: MICONAZOLE NITRATE POWDER 43 GM TOP SCH ×3 (07:57→22:04)
[2020-02-26] MEDS: FLUTICASONE/VILANTEROL 200/25MCG 14 PUFFS/INHALER INH SCH (07:58)
[2020-02-26] MEDS: LEVOTHYROXINE SODIUM 75 MCG TABLET PO SCH (07:58)
--- NOTE | 2020-02-26 10:09 | Pharmacy Report ---
Pharmacy Abx Initial Consult - Date of Service February 26, 2020 - Pharmacy Dosing Scope Date of Consult: 02/25/20 Consultation requested by: Dr. Villeda Pharmacy is consulted to initiate Vancomycin IV dosing therapy, order appropriate labs and adjust drug dose/frequency. Pt also ordered Azithromycin + Ceftriaxone. - Subjective The patient is a 79 year old F admitted on 02/25/20 18:01. - Objective Height: 5 ft 7 in Weight: 106 kg Vital Signs (Past 12hrs): Vital Signs Temp Pulse Pulse Resp BP Pulse Ox 02/26/20 07:40 36.8 C 83 18 118/72 95 02/25/20 22:20 98 H Lab Results (24hrs): Laboratory Tests (24 Hours) 02/26/20 02/26/20 02/25/20 06:46 06:46 13:10 WBC 11.27 H Neut # (Auto) 7.99 H Creatinine 1.16 1.29 H Est Cr Clr Drug Dosing 50.1 45.0 02/25/20 13:10 WBC 15.66 H Neut # (Auto) 11.56 H Creatinine Est Cr Clr Drug Dosing - Risk Factors for Resistance * Hospitalization for 48 hours or more within the past 90 days * History of infection with a multidrug-resistant organism: enterococcus UTI 02/12/20 * Antimicrobial use within the last 90 days: Cipro, Daptomycin, Vancomycin, Cefepime, Ampicillin, Ceftriaxone (all 12/2019 and or 01/2020) - Assessment & Plan Assessment 79 year old F initiated on IV Vancomycin + Ceftriaxone + Azithromycin for PNX. * Scr improved from last admission when ordered IV Vancomycin. Will continue similar dosing as 02/13/20 admission but lengthen dosing interval for increased drug excretion with adequate renal function * Pt with BMI > 35 putting her at risk for rapid drug accumulation once at steady state - will dose on a lower mg/kg to offset accumulation Plan Vancomycin IV * Estimated PK Parameters: Vd 0.5 L/kg, Lavelle 0.042 hr-1, t1/2 16.5hr * Loading dose: 2000 mg (20 mg/kg) * Maintenance dose: 1,250 mg IV (~13 mg/kg) every 18 hours * Goal trough level for Pulmonary : 15 to 20 mcg/mL * Trough/Random level ordered for 02/28/20 @ 0130. This will be slightly before steady state therefore will adjust dosing after careful interpretation of this level. Azithromycin + CTX dosing appropriate based on renal function {not pharmacy consult dosing} Pharmacy will continue to follow and will adjust dose/frequency as necessary. Thank you.
--- NOTE | 2020-02-26 11:21 | Pharmacy Report ---
Pharmacy Glycemic Short Note 2 - Date of Service February 26, 2020 - Glycemic Short BSG Results (Last 24 hours): 02/25/20 02/25/20 02/25/20 13:10 13:48 21:33 Glucose 170 H POC Glucose 216 H POC Glucose (other) 160 H 02/26/20 02/26/20 06:46 06:56 Glucose 131 H POC Glucose 137 H POC Glucose (other) OUTPATIENT ANTIDIABETIC REGIMEN: * n/a * A1c = 5.8% ASSESSMENT: * Patient with prior h/o type 2 dm, however well controlled without medications per recent A1c * Patient was admitted for c/o abdominal pain, possible pna, possible uti * BSG mildly elevated last evening however corrected with Novolog overnight * Fasting BSG 137 this AM with no basal insulin on board * Patient was recently admitted and did not require insulin therapy * Other than infection, no obvious new stressors. * Will initiate SQ correctional insulin alone at this time and follow BSG pattern PLAN FOR INPATIENT GLYCEMIC CONTROL: * Basal insulin * none at this time * Bolus insulin * NovoLog per scale ACHS or Q6hrs while NPO * Goal Range: Low 120 mg/dL - High 150 mg/dL * Correction Factor: 20 mg/dL/unit * Nutritional / Prandial insulin: none at this time
--- NOTE | 2020-02-26 11:38 | Hospitalist Progress Note ---
Date of Service February 26, 2020 Assessment & Plan (1) Pneumonia: (2) Anxiety: (3) COVID-19 ruled out: (4) Leukocytosis: (5) COPD (chronic obstructive pulmonary disease): (6) Anticoagulated on Coumadin: (7) Atrial fibrillation: (8) CKD (chronic kidney disease), stage III: (9) GERD (gastroesophageal reflux disease): (10) Chronic back pain: (11) Generalized anxiety disorder: (12) History of pulmonary embolism: (13) Hypothyroidism: (14) Hypertension: (15) DM type 2 (diabetes mellitus, type 2): SSI, Rocephin, vanco, and Zithromax, Nebs, Clears, Covid negative, Isolation, Wound care for LLE wound Labs checked ROS-No Headache, No Visual Changes, + Nausea, + Vomiting, No Fever, No Chills, No Neck Pain or Stiffness, No Chest Pain, No Palpitations, No SOB, No BARBOUR, No Cough, No Sputum, No Wheezing, No Abdominal Pain, No Diarrhea, No Hematemesis, No Hemoptysis, No Unexpected Weight Loss, No Flank pain, No Melena, No Hematochezia, No Frequency, No Urgency, No Burning, No Hematuria, No Rashes, No Diaphoresis. Appetite is Normal Physical Exam Gen-AAO x 3, Not herself, NAD, Afebrile, obese Head-NCAT, EOMI, PERRLA, Anicteric Sclera, No Posterior Pharyngeal Erythema Neck-Supple, No JVD, No Thyromegaly, No Masses, No LAD, No Bruits Lungs-Clear to Auscultation Bilaterally, No Rales, No Rhonchi, No Wheezing, No Crepitus Chest-No S4, +S1, +S2, No S3, No Murmurs, No Rubs, No Gallops, No Ectopy Abdomen-Soft, Bowel Sounds Present, Non Tender, Non Distended, No Hepatomegaly, No Splenomegaly, No Palpable Masses, No Rebound, No Rigidity, No Guarding Musculoskeletal-Full Range of Motion Bilaterally, No CVAT Extremities-RLE wrapped, Removed Gauze and +RLE Large Wound Nuero-Cranial Nerves II-XII grossly intact, Motor WNL, DTRs WNL, Strength WNL, Non Focal Psych-Improved MS today Admission and Anticipated Discharge Date Admission Date: February 25, 2020 Anticipated date of discharge: 02/29/20 Results & Data Results & Data ([facility]) Vital Signs (Past 12 Hours) Vital Signs Temp Pulse Resp BP Pulse Ox 02/26/20 07:40 36.8 C 83 18 118/72 95 (1) Atrial fibrillation Atrial fibrillation type: unspecified Qualified Code(s): I48.91 - Unspecified atrial fibrillation
[2020-02-26] MEDS: VANCOMYCIN HCL 1,250 MG in SODIUM CHLORIDE 0.9% 250 ML IV SCH (13:26)
[2020-02-26] MEDS: cefTRIAXone SODIUM 2,000 MG in DEXTROSE 5% 50 ML IV SCH (15:35)
[2020-02-26] MEDS: WARFARIN SOD 1 MG TAB PO SCH (16:56)
[2020-02-26] MEDS: MELATONIN 3 MG TAB PO SCH (22:02)
[2020-02-26] MEDS: MONTELUKAST SODIUM 10 MG TABLET PO SCH (22:03)
[2020-02-26] MEDS: TRAZODONE HCL 50 MG TAB PO SCH (22:03)
[2020-02-26] MEDS: AZITHROMYCIN 500 MG in DEXTROSE 5% 250 ML IV SCH (22:04)
[2020-02-26] MEDS ORDERED: LORazepam 0.25 MG/0.5 ML VIAL IV STA (22:36)
[2020-02-27] MEDS: INSULIN ASPART 100 UNITS/ML 3 ML PEN SC SCH ×5 (00:01→23:59)
[2020-02-27] MEDS: CHECK FENTANYL PATCH PLACEMENT SCH ×3 (00:23→16:24)
[2020-02-27] MEDS: LEVOTHYROXINE SODIUM 75 MCG TABLET PO SCH (06:24)
[2020-02-27 07:10] LABS: Basophils # (auto) 0.03 K/uL (0-0.2); Basophils % (auto) 0.3 %; Eosinophils # (auto) 0.54 K/uL (0-0.5); Eosinophils % (auto) 6.2 %; Hematocrit (blood only) 32.6 % (37-47); Hemoglobin 10.3 g/dL (12.0-16.0); Immature Granulocytes # (auto) 0.02 K/uL (0.00-0.02); Immature Granulocytes % (auto) 0.2 %; Lymphocytes # (auto) 1.87 K/uL (1.2-3.4); Lymphocytes % (auto) 21.4 %; Mean Corpuscular Hemoglobin 32.1 pg (25-34); Mean Corpuscular Hgb Conc 31.6 g/dL (32-36); Mean Corpuscular Volume 101.6 fL (80-100); Mean Platelet Volume 10.3 fL (7.4-10.4); Monocytes # (auto) 1.19 K/uL (0.11-0.59); Monocytes % (auto) 13.6 %; Neutrophils # (auto) 5.07 K/uL (1.4-6.5); Neutrophils % (auto) 58.3 %; Nucleated RBC # (auto) 0.02 K/uL (0-0); Nucleated RBC % (auto) 0.2 %; Platelet Count 301 K/uL (130-400); RDW Standard Deviation 62.3 fL (36.4-46.3); Red Blood Count 3.21 M/uL (4.2-5.4); White Blood Count 8.72 K/uL (4.8-10.8)
[2020-02-27 07:51] LABS: Albumin Globulin Ratio 0.6 (0.9-2); Albumin Level 2.7 gm/dl (3.4-5.0); BUN Creatinine Ratio 41.7 (10-20); Bilirubin,Total 0.4 mg/dl (0.2-1); Calcium 9.6 mg/dl (8.5-10.1); Creatinine Clr Calc Pharmacy 43.7 ml/min; Est GFR (African American) 44.3; Est GFR (Non-African American) 38.2; Globulin 4.2 gm/dl (2.5-4.0); Potassium 3.2 mmol/L (3.5-5.1); Total Protein 6.9 gm/dl (6.4-8.2)
--- NOTE | 2020-02-27 08:32 | Hospitalist Progress Note ---
Date of Service February 27, 2020 Assessment & Plan (1) Pneumonia: (2) Anxiety: (3) COVID-19 ruled out: (4) Leukocytosis: (5) COPD (chronic obstructive pulmonary disease): (6) Anticoagulated on Coumadin: (7) Atrial fibrillation: (8) CKD (chronic kidney disease), stage III: (9) GERD (gastroesophageal reflux disease): (10) Chronic back pain: (11) Generalized anxiety disorder: (12) History of pulmonary embolism: (13) Hypothyroidism: (14) Hypertension: (15) DM type 2 (diabetes mellitus, type 2): SSI, Rocephin, vanco, and Zithromax, Nebs, Clears, Covid negative, Isolation, Wound care for LLE wound, Patient not herself, will check meds, Panculture, CT head Labs checked, WBCs are normal, check Mg, replete K, Gentle IVFs ROS-No Headache, No Visual Changes, No Nausea, No Vomiting, No Fever, No Chills, No Neck Pain or Stiffness, No Chest Pain, No Palpitations, No SOB, No BARBOUR, No Cough, No Sputum, No Wheezing, No Abdominal Pain, No Diarrhea, No Hematemesis, No Hemoptysis, No Unexpected Weight Loss, No Flank pain, No Melena, No Hematochezia, No Frequency, No Urgency, No Burning, No Hematuria, No Rashes, No Diaphoresis. Appetite is Normal Physical Exam Gen-AAO x 3, Not herself, NAD, Afebrile, obese Head-NCAT, EOMI, PERRLA, Anicteric Sclera, No Posterior Pharyngeal Erythema Neck-Supple, No JVD, No Thyromegaly, No Masses, No LAD, No Bruits Lungs-Clear to Auscultation Bilaterally, No Rales, No Rhonchi, No Wheezing, No Crepitus Chest-No S4, +S1, +S2, No S3, No Murmurs, No Rubs, No Gallops, No Ectopy Abdomen-Soft, Bowel Sounds Present, Non Tender, Non Distended, No Hepatomegaly, No Splenomegaly, No Palpable Masses, No Rebound, No Rigidity, No Guarding Musculoskeletal-Full Range of Motion Bilaterally, No CVAT Extremities-RLE wrapped, Removed Gauze and +RLE Large Wound Nuero-Cranial Nerves II-XII grossly intact, Motor WNL, DTRs WNL, Strength WNL, Non Focal Psych-Improved MS today Admission and Anticipated Discharge Date Admission Date: February 25, 2020 Anticipated date of discharge: 02/29/20 Results & Data Results & Data ([facility]) Vital Signs (Past 12 Hours) Vital Signs Temp Pulse Resp BP BP Pulse Ox 02/27/20 07:45 36.9 C 65 22 129/80 02/26/20 23:08 36.5 C 86 18 91/58 L 99 02/26/20 22:05 79 118/79 (1) Atrial fibrillation Atrial fibrillation type: unspecified Qualified Code(s): I48.91 - Unspecified atrial fibrillation
[2020-02-27] MEDS: VANCOMYCIN HCL 1,250 MG in SODIUM CHLORIDE 0.9% 250 ML IV SCH (08:36)
[2020-02-27] MEDS: DOCUSATE SODIUM 100 MG CAP PO SCH ×2 (08:36→21:03)
[2020-02-27] MEDS: SUCRALFATE 1 GM TAB PO SCH ×2 (08:36→21:05)
[2020-02-27] MEDS: FLUTICASONE/VILANTEROL 200/25MCG 14 PUFFS/INHALER INH SCH (08:36)
[2020-02-27] MEDS: SPIRONOLACTONE 25 MG TAB PO SCH (08:36)
[2020-02-27] MEDS: SENNA 8.6 MG TAB PO SCH ×2 (08:37→21:03)
[2020-02-27] MEDS: UMECLIDINIUM BROMIDE 62.5MCG/BLISTER 7 PUFFS/INHALER INH SCH (08:37)
[2020-02-27] MEDS: FUROSEMIDE 80 MG TAB PO SCH (08:37)
[2020-02-27] MEDS: MICONAZOLE NITRATE POWDER 43 GM TOP SCH ×3 (08:37→21:05)
[2020-02-27] MEDS: METOPROLOL SUCC 50MG EXT REL TAB PO SCH ×2 (08:37→21:04)
[2020-02-27] MEDS: ARTIFICIAL TEARS OP SCH ×3 (08:37→21:05)
[2020-02-27] MEDS: guaiFENesin 600 MG TABCR PO SCH ×2 (08:37→21:04)
[2020-02-27] MEDS: DULOXETINE HCL 60 MG CAP PO SCH (08:37)
[2020-02-27] MEDS: CHOLECALCIFEROL 1,000 UNITS 25 MCG TAB PO SCH (08:37)
[2020-02-27] MEDS: allopurinoL 100 MG TAB PO SCH (08:37)
--- NOTE | 2020-02-27 09:22 | CT Scan Report ---
HEAD CT NONCONTRAST CT DOSE: 614.27 mGy.cm HISTORY: Altered mental status. TECHNIQUE: Multiaxial CT images of the head were performed without the use of intravenous contrast. A utomated exposure control was utilized for this study. A dose lowering technique was utilized adheri ng to the principles of ALARA. Comparison: Head CT 01/22/2020. Findings: The paranasal sinuses and mastoid air cells are clear. The calvarium and skull base are int act. There is no mass, hematoma, midline shift, acute infarct. White matter hypodensity is nonspecifi c but suggestive of microvascular ischemic change. The ventricles and sulci demonstrate mild age-rela jorge luis involutional changes. Old small focus of encephalomalacia within the right parietal peripheral wh ite matter. 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 Atrophy and microvascular ischemic changes. ACT 112: Negative or not required by law. Electronically signed by: Neo Alcazar M.D. 02/27/2020 9:21 AM
[2020-02-27] MEDS: POTASSIUM CHLORIDE / WTR 10 MEQ/100 ML PLCT IV SCH ×4 (09:44→14:02)
[2020-02-27] MEDS: NSS + 20MEQ KCL 20 MEQ/1,000 ML BAG IV SCH ×2 (09:44→23:38)
[2020-02-27 10:42] LABS: Magnesium 1.9 mg/dl (1.8-2.4)
--- NOTE | 2020-02-27 11:19 | Pharmacy Report ---
Pharmacy Glycemic Short Note 2 - Date of Service February 27, 2020 - Glycemic Short BSG Results (Last 24 hours): 02/26/20 02/26/20 02/27/20 11:50 17:51 00:00 Glucose POC Glucose 144 H 184 H 185 H 02/27/20 02/27/20 02/27/20 06:12 07:02 07:41 Glucose 111 H POC Glucose 91 123 H OUTPATIENT ANTIDIABETIC REGIMEN: * n/a * A1c = 5.8% ASSESSMENT: 02/26 * BSGs acceptable over last 24 hrs, only mild BSG elevated noted last evening. * Patient may require some basal insulin during acute illness despite A1c 5.8% and no insulin requirements last admission. Pt has been NPO however BSGs did increase into the 180s range. This AM's BSG only 91 so will defer adding basal insulin at this time. * Will continue correctional insulin at this time however lower goal range 02/25 * Patient with prior h/o type 2 dm, however well controlled without medications per recent A1c * Patient was admitted for c/o abdominal pain, possible pna, possible uti * BSG mildly elevated last evening however corrected with Novolog overnight * Fasting BSG 137 this AM with no basal insulin on board * Patient was recently admitted and did not require insulin therapy * Other than infection, no obvious new stressors. * Will initiate SQ correctional insulin alone at this time and follow BSG pattern PLAN FOR INPATIENT GLYCEMIC CONTROL: * Basal insulin * none at this time * Bolus insulin * NovoLog per scale ACHS or Q6hrs while NPO * Goal Range: Low 110 mg/dL - High 140 mg/dL * Correction Factor: 20 mg/dL/unit * Nutritional / Prandial insulin: none at this time
[2020-02-27] MEDS: cefTRIAXone SODIUM 2,000 MG in DEXTROSE 5% 50 ML IV SCH (16:24)
[2020-02-27] MEDS: WARFARIN SOD 2 MG TAB PO SCH (16:24)
[2020-02-27] MEDS: DIGOXIN 0.125 MG TAB PO SCH (16:24)
[2020-02-27] MEDS: MELATONIN 3 MG TAB PO SCH (21:03)
[2020-02-27] MEDS: TRAZODONE HCL 50 MG TAB PO SCH (21:03)
[2020-02-27] MEDS: MONTELUKAST SODIUM 10 MG TABLET PO SCH (21:04)
[2020-02-27] MEDS: LORazepam 0.5 MG TAB PO PRN (21:04)
[2020-02-27] MEDS: ACETAMINOPHEN 325 MG TAB PO PRN (21:04)
[2020-02-27] MEDS: AZITHROMYCIN 500 MG in DEXTROSE 5% 250 ML IV SCH (23:39)
[2020-02-28] MEDS: CHECK FENTANYL PATCH PLACEMENT SCH
[2020-02-28] MEDS ORDERED: VANCOMYCIN TROUGH ONE (01:30)
[2020-02-28] MEDS: INSULIN ASPART 100 UNITS/ML 3 ML PEN SC SCH ×4 (06:48→22:26)
[2020-02-28] MEDS: LEVOTHYROXINE SODIUM 75 MCG TABLET PO SCH (07:06)
--- NOTE | 2020-02-28 07:53 | Hospitalist Progress Note ---
Date of Service February 28, 2020 Assessment & Plan (1) Pneumonia: (2) Anxiety: (3) COVID-19 ruled out: (4) Leukocytosis: (5) COPD (chronic obstructive pulmonary disease): (6) Anticoagulated on Coumadin: (7) Atrial fibrillation: (8) CKD (chronic kidney disease), stage III: (9) GERD (gastroesophageal reflux disease): (10) Chronic back pain: (11) Generalized anxiety disorder: (12) History of pulmonary embolism: (13) Hypothyroidism: (14) Hypertension: (15) DM type 2 (diabetes mellitus, type 2): SSI, Rocephin, vanco, and Zithromax, Nebs, Clears, Covid negative, Isolation, Wound care for LLE wound, Patient not herself-DC Duragesic patch, DC Ativan, Dig Level, Decrease Allopurinol, Panculture NGTD, CT head-Neg Labs checked, WBCs are normal, check Mg, replete K, Gentle IVFs ROS-No Headache, No Visual Changes, No Nausea, No Vomiting, No Fever, No Chills, No Neck Pain or Stiffness, No Chest Pain, No Palpitations, No SOB, No BARBOUR, No Cough, No Sputum, No Wheezing, No Abdominal Pain, No Diarrhea, No Hematemesis, No Hemoptysis, No Unexpected Weight Loss, No Flank pain, No Melena, No Hematochezia, No Frequency, No Urgency, No Burning, No Hematuria, No Rashes, No Diaphoresis. Appetite is Normal Physical Exam Gen-AAO x 3, Not herself, But better today, NAD, Afebrile, obese Head-NCAT, EOMI, PERRLA, Anicteric Sclera, No Posterior Pharyngeal Erythema Neck-Supple, No JVD, No Thyromegaly, No Masses, No LAD, No Bruits Lungs-Clear to Auscultation Bilaterally, No Rales, No Rhonchi, No Wheezing, No Crepitus Chest-No S4, +S1, +S2, No S3, No Murmurs, No Rubs, No Gallops, No Ectopy Abdomen-Soft, Bowel Sounds Present, Non Tender, Non Distended, No Hepatomegaly, No Splenomegaly, No Palpable Masses, No Rebound, No Rigidity, No Guarding Musculoskeletal-Full Range of Motion Bilaterally, No CVAT Extremities-RLE wrapped, Removed Gauze and +RLE Large Wound Nuero-Cranial Nerves II-XII grossly intact, Motor WNL, DTRs WNL, Strength WNL, Non Focal Psych-Improved MS today Admission and Anticipated Discharge Date Admission Date: February 25, 2020 Anticipated date of discharge: 03/02/20 Results & Data Results & Data ([facility]) Vital Signs (Past 12 Hours) Vital Signs Temp Pulse Resp BP Pulse Ox 02/27/20 23:14 36.8 C 87 20 124/57 L 100 (1) Atrial fibrillation Atrial fibrillation type: unspecified Qualified Code(s): I48.91 - Unspecified atrial fibrillation
[2020-02-28] MEDS: DULOXETINE HCL 60 MG CAP PO SCH (08:23)
[2020-02-28] MEDS: UMECLIDINIUM BROMIDE 62.5MCG/BLISTER 7 PUFFS/INHALER INH SCH (08:23)
[2020-02-28] MEDS: metOLazone 2.5 MG TABLET PO SCH (08:23)
[2020-02-28] MEDS: SUCRALFATE 1 GM TAB PO SCH ×2 (08:23→22:19)
[2020-02-28] MEDS: SPIRONOLACTONE 25 MG TAB PO SCH (08:23)
[2020-02-28] MEDS: FLUTICASONE/VILANTEROL 200/25MCG 14 PUFFS/INHALER INH SCH (08:23)
[2020-02-28] MEDS: ARTIFICIAL TEARS OP SCH ×3 (08:23→22:25)
[2020-02-28] MEDS: DOCUSATE SODIUM 100 MG CAP PO SCH ×2 (08:23→22:20)
[2020-02-28 08:24] LABS: Basophils # (auto) 0.01 K/uL (0-0.2); Basophils % (auto) 0.1 %; Eosinophils # (auto) 0.63 K/uL (0-0.5); Hemoglobin 9.8 g/dL (12.0-16.0); Immature Granulocytes # (auto) 0.03 K/uL (0.00-0.02); Immature Granulocytes % (auto) 0.3 %; Lymphocytes # (auto) 1.74 K/uL (1.2-3.4); Lymphocytes % (auto) 19.2 %; Mean Corpuscular Hemoglobin 32.9 pg (25-34); Mean Corpuscular Hgb Conc 32.7 g/dL (32-36); Mean Corpuscular Volume 100.7 fL (80-100); Mean Platelet Volume 10.5 fL (7.4-10.4); Monocytes # (auto) 0.86 K/uL (0.11-0.59); Monocytes % (auto) 9.5 %; Neutrophils # (auto) 5.78 K/uL (1.4-6.5); Neutrophils % (auto) 63.9 %; Platelet Count 299 K/uL (130-400); RDW Standard Deviation 62.3 fL (36.4-46.3); Red Blood Count 2.98 M/uL (4.2-5.4); White Blood Count 9.05 K/uL (4.8-10.8)
[2020-02-28] MEDS: CHOLECALCIFEROL 1,000 UNITS 25 MCG TAB PO SCH (08:24)
[2020-02-28] MEDS: FUROSEMIDE 80 MG TAB PO SCH (08:24)
[2020-02-28] MEDS: METOPROLOL SUCC 50MG EXT REL TAB PO SCH ×2 (08:24→22:37)
[2020-02-28] MEDS: guaiFENesin 600 MG TABCR PO SCH ×2 (08:24→22:24)
[2020-02-28] MEDS: allopurinoL 100 MG TAB PO SCH (08:24)
[2020-02-28] MEDS: SENNA 8.6 MG TAB PO SCH ×2 (08:24→22:20)
[2020-02-28] MEDS: MICONAZOLE NITRATE POWDER 43 GM TOP SCH ×3 (08:31→22:25)
[2020-02-28 08:34] LABS: INR 2.4 (0.9-1.1)
[2020-02-28] MEDS ORDERED: Nursing to Pharmacy Communication ONE (08:57)
[2020-02-28 09:00] LABS: Albumin Level 2.6 gm/dl (3.4-5.0); BUN Creatinine Ratio 41.9 (10-20); Calcium 9.4 mg/dl (8.5-10.1); Creatinine Clr Calc Pharmacy 47.6 ml/min; Est GFR (African American) 49.1; Est GFR (Non-African American) 42.4; Potassium 3.1 mmol/L (3.5-5.1)
[2020-02-28 09:03] LABS: Albumin Globulin Ratio 0.7 (0.9-2); Bilirubin,Total 0.3 mg/dl (0.2-1); Globulin 3.9 gm/dl (2.5-4.0); Total Protein 6.5 gm/dl (6.4-8.2)
--- NOTE | 2020-02-28 09:15 | Pharmacy Report ---
Glycemic Control Progress Note - Date of Service February 28, 2020 - Scope Glycemic Pharmacist consulted for glycemic control to write orders per [facility] inpatient glycemic control protocol. - Objective Accuchecks BSG(last 24 hours):: 02/27/20 02/27/20 02/27/20 11:39 18:05 23:58 Glucose POC Glucose 103 H 142 H 134 H 02/28/20 02/28/20 06:41 08:09 Glucose 130 H POC Glucose 96 - Recent Pertinent Medications The patient is currently receiving: * Basal insulin: Lantus -- units every -- hours * Correctional Insulin: Novolog Correction per scale ACHS Goal Range: Low 110 mg/dL - High 140 mg/dL Correction Factor: 20 mg/dL/unit * Prandial insulin: Per carb ratio of 1 unit per -- grams CHO consumed - Outpatient Anti-Diabetic Meds N/A - Assessment & Plan ASSESSMENT: * See progress note from 02/26/2020 for more background info, in short: * Pt receiving SQ basal bolus insulin regimen for hyperglycemia. * Patient is currently receiving an average of 0 units of insulin per day * 0 units of basal insulin * 0 units of prandial/correctional insulin * BSGs ranging 91 - 142 mg/dl over the past 24hrs * Changes needed to insulin regimen: * AM Fasting BSG = 96 mg/dl. This is in goal range for patient based on inpatient targets and co-morbidities. Therefore basal will be held. * Post-prandial BSGs are in range. Diet ordered - so will start weight-based stress of 1-2. * Total daily dose = <10 units. PLAN FOR INPATIENT GLYCEMIC CONTROL: * Starting correction factor of 25 mg/dl/unit * Starting carb ratio of 1 unit per 9 grams CHO consumed * Continuing goal range of Low 110 mg/dL - High 140 mg/dL * Please note that the plan above was derived based on current level of insulin resistance and hospital stress. These recommendations are appropriate for inpatient admission only. Plan of care upon discharge will need to be reassessed to avoid potential outpatient hypo/hyperglycemia. Thank you.
--- NOTE | 2020-02-28 14:02 | Pharmacy Report ---
Pharmacy Abx Dose Short Note - Date of Service February 28, 2020 - Assessment & Plan Assessment 79 year old F receiving Vancomycin 1250 mg IV q18h for treatment of Pneumonia. Day #4 of antimicrobial therapy. Patient received total of 3 doses (including the load). A trough level was checked today before the 2 AM dose resulted 27.2 mcg/ml Vancomycin was held until the trough was lower. Laboratory Tests 02/28/20 02/28/20 01:30 11:59 Vancomycin Trough 27.2 Random Vancomycin 23.3 Plan Vancomycin * Trough level of 27.2 mcg/mL is supratherapeutic. Goal trough is 15-20 for Pneumonia. * A Random Vanc level obtained 10.5 hrs later resulted 23.3 which is still above 20. * Vancomycin is currently still on hold. * Scr was not ordered today with AM labs but I suspect it is higher. Scr ordered for tomorrow AM. * Random level ordered for: 02/29/20 with AM labs. * If random level falls below 20 mcg/ml then will consider re-dosing Vancomycin. * Currently Ke = 0.015 per hr, t1/2 = 46.2 hrs calculated from the 2 levels that resulted today. Pharmacy will continue to follow and will adjust dose/frequency as necessary. Thank you.
[2020-02-28] MEDS: cefTRIAXone SODIUM 2,000 MG in DEXTROSE 5% 50 ML IV SCH (16:35)
[2020-02-28] MEDS: WARFARIN SOD 1 MG TAB PO SCH (16:36)
[2020-02-28] MEDS: MELATONIN 3 MG TAB PO SCH (22:18)
[2020-02-28] MEDS: MONTELUKAST SODIUM 10 MG TABLET PO SCH (22:19)
[2020-02-28] MEDS: TRAZODONE HCL 50 MG TAB PO SCH (22:21)
[2020-02-28] MEDS: PRIMIDONE 50 MG TAB PO SCH (22:24)
[2020-02-28] MEDS: AZITHROMYCIN 500 MG in DEXTROSE 5% 250 ML IV SCH (22:44)
[2020-02-29] MEDS ORDERED: LORazepam 0.25 MG/0.5 ML VIAL IV STA ×2 (01:10→22:20)
[2020-02-29] MEDS: LEVOTHYROXINE SODIUM 75 MCG TABLET PO SCH (05:43)
[2020-02-29 05:55] LABS: Basophils # (auto) 0.02 K/uL (0-0.2); Basophils % (auto) 0.2 %; Eosinophils # (auto) 0.36 K/uL (0-0.5); Eosinophils % (auto) 4.5 %; Hematocrit (blood only) 29.9 % (37-47); Hemoglobin 9.9 g/dL (12.0-16.0); Immature Granulocytes # (auto) 0.02 K/uL (0.00-0.02); Immature Granulocytes % (auto) 0.2 %; Lymphocytes # (auto) 2.44 K/uL (1.2-3.4); Lymphocytes % (auto) 30.2 %; Mean Corpuscular Hemoglobin 32.8 pg (25-34); Mean Corpuscular Hgb Conc 33.1 g/dL (32-36); Mean Platelet Volume 10.5 fL (7.4-10.4); Monocytes # (auto) 1.02 K/uL (0.11-0.59); Monocytes % (auto) 12.6 %; Neutrophils # (auto) 4.21 K/uL (1.4-6.5); Neutrophils % (auto) 52.3 %; Platelet Count 333 K/uL (130-400); RDW Coefficient of Variation 16.7 % (11.5-14.5); RDW Standard Deviation 60.7 fL (36.4-46.3); Red Blood Count 3.02 M/uL (4.2-5.4); White Blood Count 8.07 K/uL (4.8-10.8)
[2020-02-29 06:06] LABS: INR 2.4 (0.9-1.1); Prothrombin Time 24.4 Seconds (9.0-12.0)
[2020-02-29 06:12] LABS: Albumin Level 2.7 gm/dl (3.4-5.0); BUN Creatinine Ratio 38.2 (10-20); Calcium 9.1 mg/dl (8.5-10.1); Creatinine Clr Calc Pharmacy 46.1 ml/min; Est GFR (African American) 47.3; Est GFR (Non-African American) 40.8; Magnesium 1.7 mg/dl (1.8-2.4); Potassium 3.1 mmol/L (3.5-5.1)
[2020-02-29 06:15] LABS: Albumin Globulin Ratio 0.6 (0.9-2); Bilirubin,Total 0.4 mg/dl (0.2-1); Globulin 4.2 gm/dl (2.5-4.0); Total Protein 6.9 gm/dl (6.4-8.2)
--- NOTE | 2020-02-29 07:08 | Hospitalist Progress Note ---
Date of Service February 29, 2020 Assessment & Plan (1) Pneumonia: (2) Anxiety: (3) COVID-19 ruled out: (4) Leukocytosis: (5) COPD (chronic obstructive pulmonary disease): (6) Anticoagulated on Coumadin: (7) Atrial fibrillation: (8) CKD (chronic kidney disease), stage III: (9) GERD (gastroesophageal reflux disease): (10) Chronic back pain: (11) Generalized anxiety disorder: (12) History of pulmonary embolism: (13) Hypothyroidism: (14) Hypertension: (15) DM type 2 (diabetes mellitus, type 2): SSI, Rocephin, Vanco, and Zithromax, Nebs, Clears, Covid negative, Isolation, Wound care for LLE wound, Patient not herself-DC Duragesic patch, DC Ativan, Dig Level, Decrease Allopurinol, Panculture NGTD, CT head-Neg Labs checked, WBCs are normal, check Mg, replete K, Gentle IVFs c K-Mg and K are low ROS-No Headache, No Visual Changes, No Nausea, No Vomiting, No Fever, No Chills, No Neck Pain or Stiffness, No Chest Pain, No Palpitations, No SOB, No BARBOUR, No Cough, No Sputum, No Wheezing, No Abdominal Pain, No Diarrhea, No Hematemesis, No Hemoptysis, No Unexpected Weight Loss, No Flank pain, No Melena, No Hematochezia, No Frequency, No Urgency, No Burning, No Hematuria, No Rashes, No Diaphoresis. Appetite is Normal Physical Exam Gen-AAO x 3, Still not herself, NAD, Afebrile, obese Head-NCAT, EOMI, PERRLA, Anicteric Sclera, No Posterior Pharyngeal Erythema Neck-Supple, No JVD, No Thyromegaly, No Masses, No LAD, No Bruits Lungs-Clear to Auscultation Bilaterally, No Rales, No Rhonchi, No Wheezing, No Crepitus Chest-No S4, +S1, +S2, No S3, No Murmurs, No Rubs, No Gallops, No Ectopy Abdomen-Soft, Bowel Sounds Present, Non Tender, Non Distended, No Hepatomegaly, No Splenomegaly, No Palpable Masses, No Rebound, No Rigidity, No Guarding Musculoskeletal-Full Range of Motion Bilaterally, No CVAT Extremities-RLE wrapped, Removed Gauze and +RLE Large Wound Nuero-Cranial Nerves II-XII grossly intact, Motor WNL, DTRs WNL, Strength WNL, Non Focal Psych-Odd Affect Admission and Anticipated Discharge Date Admission Date: February 25, 2020 Anticipated date of discharge: 03/02/20 Results & Data Results & Data ([facility]) Vital Signs (Past 12 Hours) Vital Signs Temp Pulse Pulse Resp BP Pulse Ox 02/28/20 23:32 37.1 C 85 22 116/72 96 02/28/20 22:32 80 129/79 99 (1) Atrial fibrillation Atrial fibrillation type: unspecified Qualified Code(s): I48.91 - Unspecified atrial fibrillation
[2020-02-29] MEDS: POTASSIUM CHLORIDE / WTR 10 MEQ/100 ML PLCT IV SCH ×4 (07:42→11:07)
[2020-02-29] MEDS: MAGNESIUM SULFATE / D5W 1 GM/100 ML BAG IV SCH ×2 (07:42→10:01)
--- NOTE | 2020-02-29 08:41 | Pharmacy Report ---
Glycemic Control Progress Note - Date of Service February 29, 2020 - Scope Glycemic Pharmacist consulted for glycemic control to write orders per [facility] inpatient glycemic control protocol. - Objective Accuchecks BSG(last 24 hours):: 02/28/20 02/28/20 02/28/20 08:09 12:08 16:22 Glucose 130 H POC Glucose 139 H 130 H 02/28/20 02/28/20 02/29/20 20:02 22:14 05:46 Glucose 138 H POC Glucose 232 H 162 H 02/29/20 08:02 Glucose POC Glucose 158 H - Recent Pertinent Medications The patient is currently receiving: * Basal insulin: Lantus -- units every -- hours * Correctional Insulin: Novolog Correction per scale ACHS Goal Range: Low 110 mg/dL - High 140 mg/dL Correction Factor: 25 mg/dL/unit * Prandial insulin: Per carb ratio of 1 unit per 9 grams CHO consumed - Outpatient Anti-Diabetic Meds N/A - Assessment & Plan ASSESSMENT: * See progress note from 02/26/2020 for more background info, in short: * Pt receiving SQ basal bolus insulin regimen for hyperglycemia secondary to infection (currently on Rocephin, vanc, azithromycin) * Patient is currently receiving an average of 9 units of insulin per day * 0 units of basal insulin * 9 units of prandial/correctional insulin * BSGs ranging 96 - 162 mg/dl over the past 24hrs * Changes needed to insulin regimen: * AM Fasting BSG = 158 mg/dl. This is a little goal range for patient based on inpatient targets and co-morbidities. Will not start basal insulin at this time as the patient has not had a blood sugar > 180 mg/dL. * Post-prandial BSGs did trend upwards yesterday - tighten CR. * Total daily dose = 10-15 units. PLAN FOR INPATIENT GLYCEMIC CONTROL: * Continuing to hold Lantus * Continuing correction factor of 25 mg/dl/unit * Changing carb ratio to 1 unit per 7 grams CHO consumed * Continuing goal range of Low 110 mg/dL - High 140 mg/dL RECOMMENDATIONS FOR DISCHARGE: * Patient's HbA1C does not indicate diabetes. Recommend close follow-up. Thank you.
[2020-02-29] MEDS: INSULIN ASPART 100 UNITS/ML 3 ML PEN SC SCH ×4 (08:59→20:51)
[2020-02-29] MEDS ORDERED: VANCOMYCIN HCL 1,250 MG in SODIUM CHLORIDE 0.9% 250 ML IV ONE (09:00)
[2020-02-29] MEDS: SPIRONOLACTONE 25 MG TAB PO SCH (09:00)
[2020-02-29] MEDS: FLUTICASONE/VILANTEROL 200/25MCG 14 PUFFS/INHALER INH SCH (09:01)
[2020-02-29] MEDS: DULOXETINE HCL 60 MG CAP PO SCH (09:02)
[2020-02-29] MEDS: SUCRALFATE 1 GM TAB PO SCH ×2 (09:02→20:47)
[2020-02-29] MEDS: DOCUSATE SODIUM 100 MG CAP PO SCH ×2 (09:02→20:45)
[2020-02-29] MEDS: UMECLIDINIUM BROMIDE 62.5MCG/BLISTER 7 PUFFS/INHALER INH SCH (09:02)
[2020-02-29] MEDS: MICONAZOLE NITRATE POWDER 43 GM TOP SCH ×3 (09:02→20:50)
[2020-02-29] MEDS: SENNA 8.6 MG TAB PO SCH ×2 (09:03→20:45)
[2020-02-29] MEDS: guaiFENesin 600 MG TABCR PO SCH ×2 (09:03→20:46)
[2020-02-29] MEDS: POTASSIUM CHLORIDE 20 MEQ/15 ML UDC PO SCH ×4 (09:03→20:49)
[2020-02-29] MEDS: allopurinoL 100 MG TAB PO SCH (09:04)
[2020-02-29] MEDS: METOPROLOL SUCC 50MG EXT REL TAB PO SCH ×2 (09:04→21:08)
[2020-02-29] MEDS: CHOLECALCIFEROL 1,000 UNITS 25 MCG TAB PO SCH (09:04)
[2020-02-29] MEDS: ARTIFICIAL TEARS OP SCH ×3 (09:05→21:08)
--- NOTE | 2020-02-29 09:45 | Pharmacy Report ---
Pharmacy Abx Dose Short Note - Date of Service February 29, 2020 - Assessment & Plan Assessment 79 year old F receiving Vancomycin for treatment of MRSA Pneumonia. Day #5 of antimicrobial therapy. Last dose of Vancomycin was at 0800 on 02/27/20. Yesterday, patient's trough level was supra-therapeutic and the random level checked ~10 hrs later was also supra-therapeutic. Vancomycin was on hold. A random level checked this AM with AM labs was 18.6. Laboratory Tests 02/28/20 02/28/20 02/29/20 01:30 11:59 05:46 Vancomycin Trough 27.2 Random Vancomycin 23.3 18.6 Plan Vancomycin * Random level of 18.6 mcg/mL is therapeutic. * Vancomycin 1250 mg IV x 1 dose ordered for this AM since level is finally between the 15-20 goal trough range. * Patient is not clearing Vancomycin as well as it was originally determined. * Calculated pharmacokinetic parameters: ke = 0.013/hr, t1/2 = 53 hrs. She may need 48 hr dosing interval or longer. * She has only 2 more days to complete a 7 day course for pulmonary indication. * At this time, will order single Vancomycin doses (probably only one more dose) and follow up with random AM levels. Time to dose based on the level. * A random level ordered for: 03/02/20 with AM labs. Pharmacy will continue to follow and will adjust dose/frequency as necessary. Thank you.
[2020-02-29] MEDS: WARFARIN SOD 1 MG TAB PO SCH (17:07)
[2020-02-29] MEDS: cefTRIAXone SODIUM 2,000 MG in DEXTROSE 5% 50 ML IV SCH (17:08)
[2020-02-29] MEDS: PRIMIDONE 50 MG TAB PO SCH (20:45)
[2020-02-29] MEDS: MELATONIN 3 MG TAB PO SCH (20:46)
[2020-02-29] MEDS: MONTELUKAST SODIUM 10 MG TABLET PO SCH (20:48)
[2020-02-29] MEDS: TRAZODONE HCL 50 MG TAB PO SCH (20:48)
[2020-02-29] MEDS: AZITHROMYCIN 500 MG in DEXTROSE 5% 250 ML IV SCH (21:41)
[2020-03-01] MEDS: LEVOTHYROXINE SODIUM 75 MCG TABLET PO SCH (05:27)
[2020-03-01 06:19] LABS: Basophils # (auto) 0.02 K/uL (0-0.2); Basophils % (auto) 0.3 %; Eosinophils # (auto) 0.35 K/uL (0-0.5); Hematocrit (blood only) 29.4 % (37-47); Hemoglobin 9.7 g/dL (12.0-16.0); Immature Granulocytes # (auto) 0.01 K/uL (0.00-0.02); Immature Granulocytes % (auto) 0.1 %; Lymphocytes # (auto) 2.25 K/uL (1.2-3.4); Lymphocytes % (auto) 32.2 %; Mean Corpuscular Hemoglobin 32.9 pg (25-34); Mean Corpuscular Volume 99.7 fL (80-100); Mean Platelet Volume 10.9 fL (7.4-10.4); Monocytes # (auto) 1.14 K/uL (0.11-0.59); Monocytes % (auto) 16.3 %; Neutrophils # (auto) 3.22 K/uL (1.4-6.5); Neutrophils % (auto) 46.1 %; Platelet Count 324 K/uL (130-400); RDW Coefficient of Variation 16.6 % (11.5-14.5); RDW Standard Deviation 60.4 fL (36.4-46.3); Red Blood Count 2.95 M/uL (4.2-5.4); White Blood Count 6.99 K/uL (4.8-10.8)
[2020-03-01 06:48] LABS: Albumin Globulin Ratio 0.7 (0.9-2); Albumin Level 2.7 gm/dl (3.4-5.0); Bilirubin,Total 0.4 mg/dl (0.2-1); Calcium 9.3 mg/dl (8.5-10.1); Creatinine Clr Calc Pharmacy 62.2 ml/min; Est GFR (African American) 67.3; Est GFR (Non-African American) 58.1; Potassium 4.4 mmol/L (3.5-5.1); Total Protein 6.7 gm/dl (6.4-8.2)
[2020-03-01] MEDS: SPIRONOLACTONE 25 MG TAB PO SCH (08:01)
[2020-03-01] MEDS: FLUTICASONE/VILANTEROL 200/25MCG 14 PUFFS/INHALER INH SCH (08:01)
[2020-03-01] MEDS: DOCUSATE SODIUM 100 MG CAP PO SCH ×3 (08:02→21:40)
[2020-03-01] MEDS: SUCRALFATE 1 GM TAB PO SCH ×3 (08:02→21:40)
[2020-03-01] MEDS: DULOXETINE HCL 60 MG CAP PO SCH (08:03)
[2020-03-01] MEDS: UMECLIDINIUM BROMIDE 62.5MCG/BLISTER 7 PUFFS/INHALER INH SCH (08:03)
[2020-03-01] MEDS: MICONAZOLE NITRATE POWDER 43 GM TOP SCH ×3 (08:03→21:43)
[2020-03-01] MEDS: POTASSIUM CHLORIDE 20 MEQ/15 ML UDC PO SCH (08:03)
[2020-03-01] MEDS: guaiFENesin 600 MG TABCR PO SCH ×3 (08:04→21:40)
[2020-03-01] MEDS: METOPROLOL SUCC 50MG EXT REL TAB PO SCH ×2 (08:04→21:46)
[2020-03-01] MEDS: SENNA 8.6 MG TAB PO SCH ×3 (08:04→21:40)
[2020-03-01] MEDS: CHOLECALCIFEROL 1,000 UNITS 25 MCG TAB PO SCH ×2 (08:04→08:22)
[2020-03-01] MEDS: allopurinoL 100 MG TAB PO SCH ×2 (08:05→08:22)
[2020-03-01] MEDS: ARTIFICIAL TEARS OP SCH ×3 (08:13→21:40)
--- NOTE | 2020-03-01 08:13 | Hospitalist Progress Note ---
Date of Service March 01, 2020 Assessment & Plan (1) Pneumonia: (2) Anxiety: (3) COVID-19 ruled out: (4) Leukocytosis: (5) COPD (chronic obstructive pulmonary disease): (6) Anticoagulated on Coumadin: (7) Atrial fibrillation: (8) CKD (chronic kidney disease), stage III: (9) GERD (gastroesophageal reflux disease): (10) Chronic back pain: (11) Generalized anxiety disorder: (12) History of pulmonary embolism: (13) Hypothyroidism: (14) Hypertension: (15) DM type 2 (diabetes mellitus, type 2): SSI, Rocephin, Vanco, and Zithromax, Nebs, Clears, Covid negative, Isolation, Wound care for LLE wound, Patient still not herself-DC Duragesic patch, DC Ativan, Dig Level, Decrease Allopurinol, Panculture NGTD, CT head-Neg Labs checked, WBCs are normal, Mg and K repleted, Gentle IVFs c K-Mg and K low, Psych and Neuro to see, Primidone started for tremor last night Labs Checked ROS-No Headache, No Visual Changes, No Nausea, No Vomiting, No Fever, No Chills, No Neck Pain or Stiffness, No Chest Pain, No Palpitations, No SOB, No BARBOUR, No Cough, No Sputum, No Wheezing, No Abdominal Pain, No Diarrhea, No Hematemesis, No Hemoptysis, No Unexpected Weight Loss, No Flank pain, No Melena, No Hematochezia, No Frequency, No Urgency, No Burning, No Hematuria, No Rashes, No Diaphoresis. Appetite is OK Physical Exam Gen-AAO x 3, Still not herself, NAD, Afebrile, obese Head-NCAT, EOMI, PERRLA, Anicteric Sclera, No Posterior Pharyngeal Erythema Neck-Supple, No JVD, No Thyromegaly, No Masses, No LAD, No Bruits Lungs-Clear to Auscultation Bilaterally, No Rales, No Rhonchi, No Wheezing, No Crepitus Chest-No S4, +S1, +S2, No S3, No Murmurs, No Rubs, No Gallops, No Ectopy Abdomen-Soft, Bowel Sounds Present, Non Tender, Non Distended, No Hepatomegaly, No Splenomegaly, No Palpable Masses, No Rebound, No Rigidity, No Guarding Musculoskeletal-Full Range of Motion Bilaterally, No CVAT Extremities-RLE wrapped, Removed Gauze and +RLE Large Wound Nuero-Cranial Nerves II-XII grossly intact, Motor WNL, DTRs WNL, Strength WNL, Non Focal, +UE and Facial Spasm Psych-Odd Affect Admission and Anticipated Discharge Date Admission Date: February 25, 2020 Anticipated date of discharge: 03/02/20 Results & Data Results & Data ([facility]) Vital Signs (Past 12 Hours) Vital Signs Temp Pulse Pulse Resp BP Pulse Ox 03/01/20 07:00 36.9 C 104 H 20 148/64 H 96 02/29/20 23:50 36.5 C 89 20 123/70 95 02/29/20 21:07 89 146/84 H 95 (1) Atrial fibrillation Atrial fibrillation type: unspecified Qualified Code(s): I48.91 - Unspecified atrial fibrillation
[2020-03-01] MEDS: INSULIN ASPART 100 UNITS/ML 3 ML PEN SC SCH ×4 (08:15→21:41)
--- NOTE | 2020-03-01 11:14 | Psychiatric Consultation ---
Date of Consultation March 01, 2020 Impression / Recommendations Impression Dr. Shoshana Locke was directly involved in review and discussion of the patient's case and participated in medical decision making regarding treatment recommendations. RECOMMENDATIONS: 03/01 - Pt remains confused and appears distracted for duration of interview. Sister reports this behavior is unlike her sister and has worsened over the past 6 weeks as the patient has been frequently hospitalized. - At this point, acute change in mental status, may be related to multifactorial delirium. While it can be appreciated that there may not be one particular cause, patient's age, frequent hospitalizations/changes in environment, numerous wounds as possible sources of infection, recent UTI, polypharmacy, and other comorbid medical conditions place her at increased risk of prolonged delirium. With patient's number of risk factors for delirium, it could take weeks for her confusion to fully clear. Other contributing factors should certainly be explored. If possible, medications could be consolidated to reduce polypharmacy. - Patient's sister does report a history of anxiety, but denies a prominent psychiatric history. After reviewing available information, it does not seem that patient's behavior is consistent with a primary psychiatric condition. There have been no recent changes to her psychotropic medications and buspirone and duloxetine are not generally medications that contribute to this level of mental status change. Continue current psychotropic medication regimen. - Behavioral techniques for delirium include: frequent reorientation to person, place, time, and task being performed; permit use of corrective lenses and hearing aids when able; use of familiar objects/bedding/comfort items; and encouraging patient to remain alert and active during the day to promote improved sleep in the evenings and normal sleep/wake cycles. - Please reach out to our service with additional questions or updates. Psych History Identifying Data 79-year-old female admitted medically on 02/25/2020 after presenting to the ED from [facility] for reports of abdominal pain, nausea, and vomiting. Pt has had 3 hospitalizations in roughly the past 6 weeks, initially presenting after a fall. Psychiatric consultation is requested as patient continues to present as altered and confused. Chief Complaint "You talking to me again? I think I had a sliver in the back..." Pt then became distracted and didn't finish her sentence. History of Present Illness Margareth Crane is a 79-year-old female admitted medically on 02/25/2020 after presenting to the ED with reports of abdominal pain, nausea, and vomiting. Pt appears to have had 3 inpatient hospitalizations in roughly the past 6 weeks, initially presenting to the ED s/p fall during which patient hit her head. Pt then represented with confusion, and was treated for a UTI. Pt then represented only 5 days after her discharge with increased confusion and onset of tremor/jerky movements of her upper body. Psychiatric consultation is requested during this admission as there has been little improvement in the patient's confusion over the course of her admission. On entering the patient's room, the patient is being visited by her sister Kate. Pt is able to identify her sister, with notable delay. Pt provides verbal consent to allow her sister to remain in the room during our conversation. Pt's attention is limited during our interview, often stopping longterm through sentences. Her ability to provide information is limited. Pt does permit her sister to answer this provider's questions. Sister states "this is not her, this is nothing like her." Sister admits that she has noticed decline in the patient's memory over the past 3-4 months, but states there has been a notable change in the patient's mental status over the past 6 weeks. Admittedly, the sister has had limited in-person contact with her sister over the past several months due to the coronavirus pandemic, but has been calling her regularly to speak over the phone. Sister admits the patient has a history of anxiety, but denies a prominent psychiatric history. She denies known history of suicide attempts or inpatient psychiatric hospitalizations. Sister does admit to frustration regarding the patient's condition, as she states "she is totally confused, this is not her." Sister and patient were made aware of our level of involvement in their case and were encouraged to reach out to our team with any additional questions or updates. Past Psychiatric History Current Psychiatric Diagnosis: Anxiety Outpatient Services: None Previous Psych Admissions: None History of Previous Suicide Attempt: No Allergies Allergy/AdvReac Type Severity Reaction Status Date / Time meperidine [From Demerol] Allergy Unknown ON WINDY Verified 02/25/20 13:33 HILL LIST sulfite Allergy On Windy Unverified 02/25/20 13:33 Hill's list morphine AdvReac Intermediate vomiting Verified 02/25/20 13:33 oxycodone AdvReac Intermediate vomit blood Verified 02/25/20 13:33 propoxyphene AdvReac Intermediate abd vomit Verified 02/25/20 13:33 blood tramadol AdvReac Intermediate vomiting Verified 02/25/20 13:33 Bactrim AdvReac Mild GI SYMPTOMS Verified 03/06/18 21:06 codeine AdvReac Mild vomiting Verified 02/25/20 13:33 olmesartan AdvReac Mild GI SYMPTOMS Verified 02/25/20 13:33 Sulfa (Sulfonamide AdvReac Mild GI SYMPTOMS Verified 02/25/20 13:33 Antibiotics) sulfamethoxazole AdvReac Mild GI SYMPTOMS Verified 02/25/20 13:33 trimethoprim AdvReac Mild GI SYMPTOMS Verified 02/25/20 13:33 carisoprodol AdvReac Unknown GI SYMPTOMS Verified 02/25/20 13:33 Home Medications Home Medications Medication Instructions Recorded Confirmed Type acetaminophen [Tylenol] 650 mg PO Q4H PRN MDD 3,000 mg 11/01/18 02/25/20 History allopurinol [Zyloprim] 200 mg PO QAM 11/01/18 02/25/20 History docusate sodium [Colace] 100 mg PO BID 11/01/18 02/25/20 History duloxetine [Cymbalta] 60 mg PO QAM 11/01/18 02/25/20 History levothyroxine [Synthroid] 75 mcg PO DAILYBB 11/01/18 02/25/20 History meclizine [Dramamine Less Drowsy] 25 mg PO TID PRN 11/01/18 02/25/20 History melatonin 10 mg PO HS 11/01/18 02/25/20 History montelukast [Singulair] 10 mg PO QPM 11/01/18 02/25/20 History sucralfate [Carafate] 1 g PO AMPM 11/01/18 02/25/20 History simethicone [Gas Relief 180 mg PO DAILY PRN 12/27/18 02/25/20 History (simethicone)] Incruse Ellipta 1 inh INHALATION QA 01/11/19 02/25/20 History sennosides [senna] 8.6 mg PO BID 01/11/19 02/25/20 History cholecalciferol (vitamin D3) 25 1,000 units PO QAM 06/11/19 02/25/20 History mcg (1,000 unit) capsule digoxin 125 mcg (0.125 mg) tablet 125 mcg PO MOWEFR 06/11/19 02/25/20 History spironolactone 25 mg tablet 25 mg PO QAM tab 06/11/19 02/25/20 History buspirone 10 mg PO BID 07/09/19 02/25/20 History metoprolol succinate [Toprol XL] 100 mg PO BID 07/09/19 02/25/20 History Cepacol Sore Throat (nataliia-men) 1 huan PO Q2H PRN 12/25/19 02/25/20 History famotidine [Pepcid] 20 mg PO BID 12/25/19 02/25/20 History fentanyl [Duragesic] 25 mcg TOPICAL [id number] 12/25/19 02/25/20 History fluticasone propion-salmeterol 1 ea INHALATION BID 12/25/19 02/25/20 History [Advair Diskus] furosemide [Lasix] 80 mg PO QAM 12/25/19 02/25/20 History guaifenesin [Mucinex] 600 mg PO BID 12/25/19 02/25/20 History guaifenesin [Siltussin SA] 200 mg PO Q4H PRN 12/25/19 02/25/20 History metolazone 2.5 mg PO WESA 12/25/19 02/25/20 History trazodone 50 mg PO HS 12/25/19 02/25/20 History Refresh Classic (PF) 2 drp OPB TID 01/22/20 02/25/20 History glucosamine-chondroitin 1 tab PO TID 01/22/20 02/25/20 History levalbuterol HCl [Xopenex] 0.63 mg INHALATION Q4H PRN 01/22/20 02/25/20 History warfarin [Coumadin] 2 mg PO MOWEFR 01/22/20 02/25/20 History ArgiMent AT 10 g PO BID 02/12/20 02/25/20 History Enema 118 ml IN DAILY PRN 02/12/20 02/25/20 History Micro-Guard 1 applic TOPICAL TID 02/12/20 02/25/20 History acetaminophen [Tylenol Extra 1,000 mg PO Q8H PRN 02/12/20 02/25/20 History Strength] betamethasone dipropionate 1 applic TOPICAL BID PRN 02/12/20 02/25/20 History bisacodyl [Dulcolax (bisacodyl)] 10 mg IN DAILY PRN 02/12/20 02/25/20 History magnesium hydroxide [Milk of 30 ml PO DAILY PRN 02/12/20 02/25/20 History Magnesia] ondansetron HCl [Zofran] 8 mg PO Q8H PRN 02/12/20 02/25/20 History tramadol [Ultram] 50 mg PO Q6H PRN MDD 300 mg 02/12/20 02/25/20 History warfarin [Coumadin] 1 mg PO SUTUTHSA 02/12/20 02/25/20 History lorazepam [Ativan] 0.5 mg PO BID PRN 02/25/20 02/25/20 History Family History Mother with anxiety, history of a "nervous breakdown" Substance Abuse History No identified concerns related to substance use. 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) Marital Status: ( 32 years, in 2004) Number Of Children: None History of Legal Problems: Denied Psychological Trauma History Comment: Denied Patient History Medical History Acute kidney injury superimposed on CKD Anxiety Arthritis (Chronic) Asthma (Chronic) Atrial fibrillation (Chronic) Chronic back pain (Chronic) Chronic gastritis (Chronic) Chronic pain (Chronic) Chronic respiratory failure (Acute) CKD (chronic kidney disease), stage III (Chronic) COPD (chronic obstructive pulmonary disease) Diastolic CHF (Chronic) On 02/12/16 22:20 Ellie Bains wrote "per echo 09/30/15- EF 60-65%, mod LVH, mod MR, mod TR, dilated RV" DJD (degenerative joint disease), multiple sites (Chronic) DM type 2 (diabetes mellitus, type 2) (Chronic) DM2 (diabetes mellitus, type 2) (Chronic) Generalized anxiety disorder (Chronic) GERD (gastroesophageal reflux disease) (Chronic) History of pulmonary embolism (Chronic) HTN (hypertension) (Chronic) Hypertension (Chronic) Hyperuricemia (Chronic) Hypothyroidism (Chronic) Intertrigo Obesity (BMI 30-39.9) (Chronic) Psoriasis Stenosis of right carotid artery (Chronic) Surgical History History of hernia repair (Chronic) Status post cholecystectomy (Chronic) "Dr. Beavers [facility] 12/27/17" Family History Father Hypertension Diabetes Social History Preferred Language: Ukrainian Communication Ability: Impaired Medical Diagnostic Radiographer Required: No marital status: / Current Living Situation: Skilled Nursing Current Living Situation Comment: [facility]oll Feels Safe at Home: Yes Safety Concerns: Feels Safe At This Time Smoking Status: Former smoker Tobacco Type: cigarettes ; Do You Dip or Chew Tobacco: No ; Second Hand Exposure: No ; Tobacco Cessation Education Requested by Patient: No Hx Alcohol Use: No Hx Substance Use: No Physical Exam Psychiatric: Orientation: oriented to person; + not alert (awake, but not able to actively engage in meaningful conversation), + not oriented to place and + not oriented to time (only aware of year, not date, month, or even season) Apperance: appropriately dressed, + disheveled and appeared stated age Obese- appearing female, laying in bed. Pt appears restless and uncomfortable. She is appropriately dressed in a hospital gown, but gown does not cover the lower half of her body. Eye Contact: + poor eye contact (easily distracted, limited direct eye contact) Motor Behavior: + tremor; + abnormal motor movements Odd jerking movements of head, neck, and upper body - reported to be of recent onset. Pt occasionally holding face in her hand and grimacing Speech: + abnormal rate/rhythm/volume of speech (only brief responses to questions) Responses often don't make sense with questions being asked Affect: + blunted affect Thought Process: + thought process not goal directed, + thought process not clear or coherent and + thought association not intact Hallucinations: no auditory hallucinations and no visual hallucinations Cognition: language grossly intact; + recent memory not intact and + attention not intact Insight: + impaired insight Judgement: + impaired judgement Vital Signs (Past 24 Hours): Last Vital Signs Temp 36.9 C 03/01/20 07:00 Pulse 104 H 03/01/20 07:00 Resp 20 03/01/20 07:00 BP 148/64 H 03/01/20 07:00 Pulse Ox 96 03/01/20 07:00 Review of Systems Constitutional: reports headache, admits to confusion Cardiovascular: denied Respiratory: denied Gastrointestinal: denied Neurological: denied Musculoskeletal: report joint pain, general discomfort Psychiatric: denies symptoms other than stated above Total of at least 10 systems reviewed, pertinent positives as above and in HPI. Results & Data (PSY) Medications Administered Acetaminophen (Tylenol) 650 mg PO Q4H PRN PRN Reason: Pain or Fever Stop: 03/26/20 21:50 Last Admin: 02/27/20 21:04 Dose: 650 mg Documented by: [id number] Admin: 02/26/20 01:41 Dose: 650 mg Documented by: [id number] Allopurinol (Zyloprim) 100 mg PO QAM [facility] Stop: 03/29/20 08:59 Last Admin: 03/01/20 08:22 Dose: Not Given Documented by: [id number] Admin: 02/29/20 09:04 Dose: 100 mg Documented by: [id number] Admin: 02/28/20 08:24 Dose: 100 mg Documented by: [id number] Artificial Tears (Artificial Tears) 2 drops OP TID [facility] Stop: 03/27/20 08:59 Last Admin: 03/01/20 08:13 Dose: Not Given Documented by: [id number] Admin: 02/29/20 21:08 Dose: 2 drops Documented by: [id number] Admin: 02/29/20 13:34 Dose: Not Given Documented by: [id number] Admin: 02/29/20 09:05 Dose: 2 drops Documented by: [id number] Admin: 02/28/20 22:25 Dose: 2 drops Documented by: [id number] Admin: 02/28/20 12:38 Dose: 2 drops Documented by: [id number] Admin: 02/28/20 08:23 Dose: 2 drops Documented by: [id number] Admin: 02/27/20 21:05 Dose: Not Given Documented by: [id number] Admin: 02/27/20 14:02 Dose: 2 drops Documented by: [id number] Admin: 02/27/20 08:37 Dose: 2 drops Documented by: [id number] Admin: 02/26/20 22:06 Dose: 2 drops Documented by: [id number] Admin: 02/26/20 13:27 Dose: 2 drops Documented by: [id number] Admin: 02/26/20 07:55 Dose: 2 drops Documented by: [id number] Buspirone HCl (Buspar) 10 mg PO BID [facility] Stop: 03/26/20 21:18 Last Admin: 03/01/20 08:02 Dose: 10 mg Documented by: [id number] Admin: 02/29/20 20:45 Dose: 10 mg Documented by: [id number] Admin: 02/29/20 09:01 Dose: 10 mg Documented by: [id number] Admin: 02/28/20 22:19 Dose: 10 mg Documented by: [id number] Admin: 02/28/20 08:23 Dose: 10 mg Documented by: [id number] Admin: 02/27/20 21:03 Dose: 10 mg Documented by: [id number] Admin: 02/27/20 08:36 Dose: 10 mg Documented by: [id number] Admin: 02/26/20 22:03 Dose: 10 mg Documented by: [id number] Admin: 02/26/20 07:52 Dose: 10 mg Documented by: [id number] Admin: 02/25/20 22:22 Dose: 10 mg Documented by: [id number] Digoxin (Lanoxin) 0.125 mg PO [id number] [facility] Stop: 03/26/20 21:18 Last Admin: 02/27/20 16:24 Dose: 0.125 mg Documented by: [id number] Admin: 02/25/20 22:20 Dose: 0.125 mg Documented by: [id number] Docusate Sodium (Colace) 100 mg PO BID [facility] Stop: 03/26/20 21:18 Last Admin: 03/01/20 08:22 Dose: Not Given Documented by: [id number] Admin: 02/29/20 20:45 Dose: 100 mg Documented by: [id number] Admin: 02/29/20 09:02 Dose: 100 mg Documented by: [id number] Admin: 02/28/20 22:20 Dose: 100 mg Documented by: [id number] Admin: 02/28/20 08:23 Dose: 100 mg Documented by: [id number] Admin: 02/27/20 21:03 Dose: 100 mg Documented by: [id number] Admin: 02/27/20 08:36 Dose: 100 mg Documented by: [id number] Admin: 02/26/20 22:03 Dose: 100 mg Documented by: [id number] Admin: 02/26/20 07:54 Dose: 100 mg Documented by: [id number] Admin: 02/25/20 22:19 Dose: 100 mg Documented by: [id number] Duloxetine HCl (Cymbalta) 60 mg PO QAM [facility] Stop: 03/27/20 08:59 Last Admin: 03/01/20 08:03 Dose: 60 mg Documented by: [id number] Admin: 02/29/20 09:02 Dose: 60 mg Documented by: [id number] Admin: 02/28/20 08:23 Dose: 60 mg Documented by: [id number] Admin: 02/27/20 08:37 Dose: 60 mg Documented by: [id number] Admin: 02/26/20 07:54 Dose: 60 mg Documented by: [id number] Fluticasone/Vilanterol (Breo Ellipta 200/25 Mcg Inh) 1 puffs INH DAILY [facility] Stop: 03/27/20 08:59 Last Admin: 03/01/20 08:01 Dose: 1 puffs Documented by: [id number] Admin: 02/29/20 09:01 Dose: 1 puffs Documented by: [id number] Admin: 02/28/20 08:23 Dose: 1 puffs Documented by: [id number] Admin: 02/27/20 08:36 Dose: 1 puffs Documented by: [id number] Admin: 02/26/20 07:58 Dose: 1 puffs Documented by: [id number] Guaifenesin (Mucinex) 600 mg PO BID [facility] Stop: 03/26/20 21:18 Last Admin: 03/01/20 08:22 Dose: Not Given Documented by: [id number] Admin: 02/29/20 20:46 Dose: 600 mg Documented by: [id number] Admin: 02/29/20 09:03 Dose: 600 mg Documented by: [id number] Admin: 02/28/20 22:24 Dose: 600 mg Documented by: [id number] Admin: 02/28/20 08:24 Dose: 600 mg Documented by: [id number] Admin: 02/27/20 21:04 Dose: 600 mg Documented by: [id number] Admin: 02/27/20 08:37 Dose: 600 mg Documented by: [id number] Admin: 02/26/20 22:03 Dose: 600 mg Documented by: [id number] Admin: 02/26/20 07:52 Dose: 600 mg Documented by: [id number] Admin: 02/25/20 22:20 Dose: 600 mg Documented by: [id number] Ceftriaxone Sodium 2,000 mg/ (Dextrose) 70 mls @ 100 mls/hr IV Q24H [facility] Stop: 03/02/20 16:41 Last Infusion: 02/29/20 17:51 Dose: 0 mls/hr Documented by: [id number] Admin: 02/29/20 17:08 Dose: 100 mls/hr Documented by: [id number] Infusion: 02/28/20 17:22 Dose: 0 mls/hr Documented by: [id number] Admin: 02/28/20 16:35 Dose: 100 mls/hr Documented by: [id number] Infusion: 02/27/20 19:03 Dose: 0 mls/hr Documented by: [id number] Admin: 02/27/20 16:24 Dose: 100 mls/hr Documented by: [id number] Infusion: 02/26/20 16:17 Dose: 0 mls/hr Documented by: [id number] Admin: 02/26/20 15:35 Dose: 100 mls/hr Documented by: [id number] Azithromycin 500 mg/ Dextrose 255 mls @ 125 mls/hr IV Q24H [facility] Stop: 03/03/20 21:59 Last Infusion: 03/01/20 00:09 Dose: 0 mls/hr Documented by: [id number] Admin: 02/29/20 21:41 Dose: 125 mls/hr Documented by: [id number] Infusion: 02/29/20 00:54 Dose: 0 mls/hr Documented by: [id number] Admin: 02/28/20 22:44 Dose: 125 mls/hr Documented by: [id number] Infusion: 02/28/20 02:01 Dose: 0 mls/hr Documented by: [id number] Admin: 02/27/20 23:39 Dose: 125 mls/hr Documented by: [id number] Infusion: 02/27/20 00:38 Dose: 0 mls/hr Documented by: [id number] Admin: 02/26/20 22:04 Dose: 125 mls/hr Documented by: [id number] Infusion: 02/26/20 00:57 Dose: 0 mls/hr Documented by: [id number] Admin: 02/25/20 22:32 Dose: 125 mls/hr Documented by: [id number] Insulin Aspart (Novolog Flexpen) 0 units SC ACHS [facility] Stop: 03/29/20 11:29 Last Admin: 03/01/20 08:15 Dose: 1 units Documented by: [id number] Cosigned by: [id number] Admin: 02/29/20 20:51 Dose: 3 units Documented by: [id number] Cosigned by: [id number] Admin: 02/29/20 17:08 Dose: 8 units Documented by: [id number] Cosigned by: [id number] Admin: 02/29/20 12:35 Dose: 6 units Documented by: [id number] Cosigned by: [id number] Admin: 02/29/20 08:59 Dose: 9 units Documented by: [id number] Cosigned by: [id number] Admin: 02/28/20 22:26 Dose: 3 units Documented by: [id number] Cosigned by: [id number] Admin: 02/28/20 17:23 Dose: 4 units Documented by: [id number] Cosigned by: [id number] Admin: 02/28/20 12:38 Dose: 2 units Documented by: [id number] Cosigned by: [id number] [facility]: 03/27/20 06:29 Last Admin: 03/01/20 05:27 Dose: Not Given Documented by: [id number] Admin: 02/29/20 05:43 Dose: 75 mcg Documented by: [id number] Admin: 02/28/20 07:06 Dose: 75 mcg Documented by: [id number] Admin: 02/27/20 06:24 Dose: 75 mcg Documented by: [id number] Admin: 02/26/20 07:58 Dose: 75 mcg Documented by: [id number] Melatonin (Melatonin) 9 mg PO HS [facility] Stop: 03/26/20 20:59 Last Admin: 02/29/20 20:46 Dose: 9 mg Documented by: [id number] Admin: 02/28/20 22:18 Dose: 9 mg Documented by: [id number] Admin: 02/27/20 21:03 Dose: 9 mg Documented by: [id number] Admin: 02/26/20 22:02 Dose: 9 mg Documented by: [id number] Admin: 02/25/20 22:25 Dose: 9 mg Documented by: [id number] Metolazone (Zaroxolyn) 2.5 mg PO [id number] [facility] Stop: 03/29/20 08:29 Last Admin: 02/28/20 08:23 Dose: 2.5 mg Documented by: [id number] Metoprolol Succinate (Toprol Xl) 100 mg PO BID [facility] Stop: 03/26/20 21:18 Last Admin: 03/01/20 08:04 Dose: 100 mg Documented by: [id number] Admin: 02/29/20 21:08 Dose: 100 mg Documented by: [id number] Admin: 02/29/20 09:04 Dose: 100 mg Documented by: [id number] Admin: 02/28/20 22:37 Dose: 100 mg Documented by: [id number] Admin: 02/28/20 08:24 Dose: 100 mg Documented by: [id number] Admin: 02/27/20 21:04 Dose: 100 mg Documented by: [id number] Admin: 02/27/20 08:37 Dose: 100 mg Documented by: [id number] Admin: 02/26/20 22:06 Dose: 100 mg Documented by: [id number] Admin: 02/26/20 07:53 Dose: 100 mg Documented by: [id number] Admin: 02/25/20 22:19 Dose: 100 mg Documented by: [id number] Miconazole Nitrate (Desenex) 1 appln TOP TID [facility] Stop: 03/26/20 21:18 Last Admin: 03/01/20 08:03 Dose: 1 appln Documented by: [id number] Admin: 02/29/20 20:50 Dose: 1 appln Documented by: [id number] Admin: 02/29/20 13:34 Dose: Not Given Documented by: [id number] Admin: 02/29/20 09:02 Dose: 1 appln Documented by: [id number] Admin: 02/28/20 22:25 Dose: 1 appln Documented by: [id number] Admin: 02/28/20 12:38 Dose: 1 appln Documented by: [id number] Admin: 02/28/20 08:31 Dose: 1 appln Documented by: [id number] Admin: 02/27/20 21:05 Dose: 1 appln Documented by: [id number] Admin: 02/27/20 14:02 Dose: 1 appln Documented by: [id number] Admin: 02/27/20 08:37 Dose: 1 appln Documented by: [id number] Admin: 02/26/20 22:04 Dose: 1 appln Documented by: [id number] Admin: 02/26/20 13:27 Dose: 1 appln Documented by: [id number] Admin: 02/26/20 07:57 Dose: 1 appln Documented by: [id number] Admin: 02/25/20 22:17 Dose: 1 appln Documented by: [id number] Montelukast Sodium (Singulair) 10 mg PO QPM [facility] Stop: 03/26/20 21:18 Last Admin: 02/29/20 20:48 Dose: 10 mg Documented by: [id number] Admin: 02/28/20 22:19 Dose: 10 mg Documented by: [id number] Admin: 02/27/20 21:04 Dose: 10 mg Documented by: [id number] Admin: 02/26/20 22:03 Dose: 10 mg Documented by: [id number] Admin: 02/25/20 22:26 Dose: 10 mg Documented by: [id number] Primidone (Primidone) 50 mg PO HS [facility] Stop: 03/29/20 20:59 Last Admin: 02/29/20 20:45 Dose: 50 mg Documented by: [id number] Admin: 02/28/20 22:24 Dose: 50 mg Documented by: [id number] Sennosides (Senokot) 8.6 mg PO BID [facility] Stop: 03/26/20 21:18 Last Admin: 03/01/20 08:22 Dose: Not Given Documented by: [id number] Admin: 02/29/20 20:45 Dose: 8.6 mg Documented by: [id number] Admin: 02/29/20 09:03 Dose: 8.6 mg Documented by: [id number] Admin: 02/28/20 22:20 Dose: 8.6 mg Documented by: [id number] Admin: 02/28/20 08:24 Dose: 8.6 mg Documented by: [id number] Admin: 02/27/20 21:03 Dose: 8.6 mg Documented by: [id number] Admin: 02/27/20 08:37 Dose: 8.6 mg Documented by: [id number] Admin: 02/26/20 22:03 Dose: 8.6 mg Documented by: [id number] Admin: 02/26/20 07:51 Dose: 8.6 mg Documented by: [id number] Admin: 02/25/20 22:26 Dose: 8.6 mg Documented by: [id number] Simethicone (Mylicon) 160 mg PO DAILY PRN PRN Reason: Flatulence Stop: 03/26/20 21:40 Last Admin: 02/25/20 22:18 Dose: 160 mg Documented by: [id number] Spironolactone (Aldactone) 25 mg PO QAM [facility] Stop: 03/27/20 08:59 Last Admin: 03/01/20 08:01 Dose: 25 mg Documented by: [id number] Admin: 02/29/20 09:00 Dose: 25 mg Documented by: [id number] Admin: 02/28/20 08:23 Dose: 25 mg Documented by: [id number] Admin: 02/27/20 08:36 Dose: 25 mg Documented by: [id number] Admin: 02/26/20 07:51 Dose: 25 mg Documented by: [id number] Sucralfate (Carafate Tab) 1 gm PO BID [facility] Stop: 03/26/20 21:18 Last Admin: 03/01/20 08:22 Dose: Not Given Documented by: [id number] Admin: 02/29/20 20:47 Dose: 1 gm Documented by: [id number] Admin: 02/29/20 09:02 Dose: 1 gm Documented by: [id number] Admin: 02/28/20 22:19 Dose: 1 gm Documented by: [id number] Admin: 02/28/20 08:23 Dose: 1 gm Documented by: [id number] Admin: 02/27/20 21:05 Dose: 1 gm Documented by: [id number] Admin: 02/27/20 08:36 Dose: 1 gm Documented by: [id number] Admin: 02/26/20 22:03 Dose: 1 gm Documented by: [id number] Admin: 02/26/20 07:51 Dose: 1 gm Documented by: [id number] Admin: 02/25/20 22:18 Dose: 1 gm Documented by: [id number] Tramadol HCl (Ultram) 50 mg PO Q6H PRN PRN Reason: Pain Stop: 03/26/20 21:18 Last Admin: 03/01/20 05:24 Dose: 50 mg Documented by: [id number] Trazodone HCl (Desyrel) 50 mg PO HS [facility] Stop: 03/26/20 21:18 Last Admin: 02/29/20 20:48 Dose: 50 mg Documented by: [id number] Admin: 02/28/20 22:21 Dose: 50 mg Documented by: [id number] Admin: 02/27/20 21:03 Dose: 50 mg Documented by: [id number] Admin: 02/26/20 22:03 Dose: 50 mg Documented by: [id number] Admin: 02/25/20 22:18 Dose: 50 mg Documented by: [id number] Umeclidinium Arvilla (Incruse Ellipta) 1 puffs INH [facility] Stop: 03/27/20 08:59 Last Admin: 03/01/20 08:03 Dose: 1 puffs Documented by: [id number] Admin: 02/29/20 09:02 Dose: 1 puffs Documented by: [id number] Admin: 02/28/20 08:23 Dose: 1 puffs Documented by: [id number] Admin: 02/27/20 08:37 Dose: 1 puffs Documented by: [id number] Admin: 02/26/20 07:56 Dose: 1 puffs Documented by: [id number] Vitamin D (Vitamin D3) 1,000 units PO [facility] Stop: 03/27/20 08:59 Last Admin: 03/01/20 08:22 Dose: Not Given Documented by: [id number] Admin: 02/29/20 09:04 Dose: 1,000 units Documented by: [id number] Admin: 02/28/20 08:24 Dose: 1,000 units Documented by: [id number] Admin: 02/27/20 08:37 Dose: 1,000 units Documented by: [id number] Admin: 02/26/20 07:52 Dose: 1,000 units Documented by: [id number] Warfarin Sodium (Coumadin) 1 mg PO [id number]@1600 [facility] Stop: 03/27/20 15:59 Last Admin: 02/29/20 17:07 Dose: 1 mg Documented by: [id number] Admin: 02/28/20 16:36 Dose: 1 mg Documented by: [id number] Admin: 02/26/20 16:56 Dose: 1 mg Documented by: [id number] Warfarin Sodium (Coumadin) 2 mg PO [id number]@1600 [facility] Stop: 03/26/20 21:18 Last Admin: 02/27/20 16:24 Dose: 2 mg Documented by: [id number] Admin: 02/25/20 22:22 Dose: 2 mg Documented by: [id number] Coding Level of Care Code 63684 U Intl Hosp Care Lvl 3
--- NOTE | 2020-03-01 13:56 | Neurology Consultation ---
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 Neurology consulted due to concern for movement disorder. Patient seen and examined this afternoon and observed from the pleitez as well. No myoclonic jerks noted or choreiform movements. She does have a mild postural tremor which is non specific and may suggest ET. I would not recommend any additional medication for this. Patient is certainly high risk for drug induced myoclonus based off her extensive home medication list. The most frequently reported classes of drugs causing myoclonus include opiates, antidepressants, antipsychotics, and antibiotics. The distribution of myoclonus ranges from focal to generalized. Patient is currently on ceftriaxone. Beta lactams are have been reported to induced myoclonus. Myoclonic jerks may improve with completion of antibiotics, however, I did not witness any myoclonus on my examine. Please call with any further questions. History of Present Illness Reason for Consultation: A 79-year-old woman admitted and currently being treated for MRSA pneumonia. Neurology was consulted due to abnormal movements of the upper extremities. Patient has been seen in the past by Dr. 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 Last seen in Neuro clinic in December 2018 by CARLO Burrell. Has had Normal EEG in the past. She scored a 27/30 on MMSE in December 2018. Today patient denies pain or complaint. Attending Physician: Anam Villeda DO Allergies Allergy/AdvReac Type Severity Reaction Status Date / Time meperidine [From Demerol] Allergy Unknown ON WIND Verified 02/25/20 13:33 HILL LIST sulfite Allergy On Windy Unverified 02/25/20 13:33 Hill's list morphine AdvReac Intermediate vomiting Verified 02/25/20 13:33 oxycodone AdvReac Intermediate vomit blood Verified 02/25/20 13:33 propoxyphene AdvReac Intermediate abd vomit Verified 02/25/20 13:33 blood tramadol AdvReac Intermediate vomiting Verified 02/25/20 13:33 Bactrim AdvReac Mild GI SYMPTOMS Verified 03/06/18 21:06 codeine AdvReac Mild vomiting Verified 02/25/20 13:33 olmesartan AdvReac Mild GI SYMPTOMS Verified 02/25/20 13:33 Sulfa (Sulfonamide AdvReac Mild GI SYMPTOMS Verified 02/25/20 13:33 Antibiotics) sulfamethoxazole AdvReac Mild GI SYMPTOMS Verified 02/25/20 13:33 trimethoprim AdvReac Mild GI SYMPTOMS Verified 02/25/20 13:33 carisoprodol AdvReac Unknown GI SYMPTOMS Verified 02/25/20 13:33 Home Medications Home Medications Medication Instructions Recorded Confirmed Type acetaminophen [Tylenol] 650 mg PO Q4H PRN MDD 3,000 mg 11/01/18 02/25/20 History allopurinol [Zyloprim] 200 mg PO QAM 11/01/18 02/25/20 History docusate sodium [Colace] 100 mg PO BID 11/01/18 02/25/20 History duloxetine [Cymbalta] 60 mg PO QAM 11/01/18 02/25/20 History levothyroxine [Synthroid] 75 mcg PO DAILYBB 11/01/18 02/25/20 History meclizine [Dramamine Less Drowsy] 25 mg PO TID PRN 11/01/18 02/25/20 History melatonin 10 mg PO HS 11/01/18 02/25/20 History montelukast [Singulair] 10 mg PO QPM 11/01/18 02/25/20 History sucralfate [Carafate] 1 g PO AMPM 11/01/18 02/25/20 History simethicone [Gas Relief 180 mg PO DAILY PRN 12/27/18 02/25/20 History (simethicone)] Incruse Ellipta 1 inh INHALATION QAM 01/11/19 02/25/20 History sennosides [senna] 8.6 mg PO BID 01/11/19 02/25/20 History cholecalciferol (vitamin D3) 25 1,000 units PO QAM 06/11/19 02/25/20 History mcg (1,000 unit) capsule digoxin 125 mcg (0.125 mg) tablet 125 mcg PO MOWEFR 06/11/19 02/25/20 History spironolactone 25 mg tablet 25 mg PO QAM tab 06/11/19 02/25/20 History buspirone 10 mg PO BID 07/09/19 02/25/20 History metoprolol succinate [Toprol XL] 100 mg PO BID 07/09/19 02/25/20 History Cepacol Sore Throat (nataliia-men) 1 huan PO Q2H PRN 12/25/19 02/25/20 History famotidine [Pepcid] 20 mg PO BID 12/25/19 02/25/20 History fentanyl [Duragesic] 25 mcg TOPICAL [id number] 12/25/19 02/25/20 History fluticasone propion-salmeterol 1 ea INHALATION BID 12/25/19 02/25/20 History [Advair Diskus] furosemide [Lasix] 80 mg PO QAM 12/25/19 02/25/20 History guaifenesin [Mucinex] 600 mg PO BID 12/25/19 02/25/20 History guaifenesin [Siltussin SA] 200 mg PO Q4H PRN 12/25/19 02/25/20 History metolazone 2.5 mg PO WESA 12/25/19 02/25/20 History trazodone 50 mg PO HS 12/25/19 02/25/20 History Refresh Classic (PF) 2 drp OPB TID 01/22/20 02/25/20 History glucosamine-chondroitin 1 tab PO TID 01/22/20 02/25/20 History levalbuterol HCl [Xopenex] 0.63 mg INHALATION Q4H PRN 01/22/20 02/25/20 History warfarin [Coumadin] 2 mg PO MOWEFR 01/22/20 02/25/20 History ArgiMent AT 10 g PO BID 02/12/20 02/25/20 History Enema 118 ml MS DAILY PRN 02/12/20 02/25/20 History Micro-Guard 1 applic TOPICAL TID 02/12/20 02/25/20 History acetaminophen [Tylenol Extra 1,000 mg PO Q8H PRN 02/12/20 02/25/20 History Strength] betamethasone dipropionate 1 applic TOPICAL BID PRN 02/12/20 02/25/20 History bisacodyl [Dulcolax (bisacodyl)] 10 mg MS DAILY PRN 02/12/20 02/25/20 History magnesium hydroxide [Milk of 30 ml PO DAILY PRN 02/12/20 02/25/20 History Magnesia] ondansetron HCl [Zofran] 8 mg PO Q8H PRN 02/12/20 02/25/20 History tramadol [Ultram] 50 mg PO Q6H PRN MDD 300 mg 02/12/20 02/25/20 History warfarin [Coumadin] 1 mg PO SUTUTHSA 02/12/20 02/25/20 History lorazepam [Ativan] 0.5 mg PO BID PRN 02/25/20 02/25/20 History Patient History Medical History Acute kidney injury superimposed on CKD Anxiety Arthritis (Chronic) Asthma (Chronic) Atrial fibrillation (Chronic) Chronic back pain (Chronic) Chronic gastritis (Chronic) Chronic pain (Chronic) Chronic respiratory failure (Acute) CKD (chronic kidney disease), stage III (Chronic) COPD (chronic obstructive pulmonary disease) Diastolic CHF (Chronic) On 02/12/16 22:20 Ellie Bains wrote "per echo 09/30/15- EF 60-65%, mod LVH, mod MR, mod TR, dilated RV" DJD (degenerative joint disease), multiple sites (Chronic) DM type 2 (diabetes mellitus, type 2) (Chronic) DM2 (diabetes mellitus, type 2) (Chronic) Generalized anxiety disorder (Chronic) GERD (gastroesophageal reflux disease) (Chronic) History of pulmonary embolism (Chronic) HTN (hypertension) (Chronic) Hypertension (Chronic) Hyperuricemia (Chronic) Hypothyroidism (Chronic) Intertrigo Obesity (BMI 30-39.9) (Chronic) Psoriasis Stenosis of right carotid artery (Chronic) Surgical History History of hernia repair (Chronic) Status post cholecystectomy (Chronic) "Dr. Beavers [facility] 12/27/17" Family History Father Hypertension Diabetes Social History Preferred Language: Nepalese Communication Ability: Impaired Roadway Designer Required: No Beliefs That Will Affect Care: None marital status: / Current Living Situation: [facility] Current Living Situation Comment: [facility] Feels Safe at Home: Yes Safety Concerns: Feels Safe At This Time Smoking Status: Former smoker Tobacco Type: cigarettes ; Do You Dip or Chew Tobacco: No ; Second Hand Exposure: No ; Tobacco Cessation Education Requested by Patient: No Hx Alcohol Use: No Hx Substance Use: No Physical Exam Physical Exam: EXAM: Constitutional:appears chronically ill, morbidly obese Face: normocephalic and atraumatic Eyes: normal lids, normal conjunctiva Neck: supple Respiratory: normal effort Cardiovascular: normal pulses Abdomen: distended Skin: generalized and patchy erythematous rash Psychiatric: normal modd NEUROLOGIC EXAMINATION: Appearance: no acute distress Orientation: awake, alert and orientedto person and place Mental Status: alert Attention: normal poor: appropriate Language: no aphasia Speech: no dysarthria Cranial Nerves: CN 2 - no visual defect on confrontation and pupils round, equal, reactive to light CN 3, 4, 6 - extra-ocular movements intact CN 5 - facial sensation intact CN 7 - no facial asymmetry CN 8 - intact hearing CN 9, 10 - palate symmetric CN 11 - good shoulder shrug CN 12 - tongue midline Gait: deferred Coordination: bilateral postural tremor Sensory: intact and symmetric to light touch Muscle Tone: normal Muscle exam: Moving all 4 extremities equally Results & Data Vital Signs (Past 12 Hours) Vital Signs Temp Pulse Resp BP Pulse Ox 03/01/20 07:00 36.9 C 104 H 20 148/64 H 96 Laboratory Results Digoxin Level is Normal. Diagnostic Findings CT Head non contrast on 02/27/20: No acute intracranial abnormality. Atrophy and microvascular ischemic changes.
[2020-03-01] MEDS ORDERED: KETOROLAC TROMETHAMINE 15 MG/ML VIAL IV PRN (16:45)
[2020-03-01] MEDS: ACETAMINOPHEN 500 MG TAB PO SCH ×2 (17:00→21:40)
[2020-03-01] MEDS: WARFARIN SOD 2 MG TAB PO SCH (17:01)
[2020-03-01] MEDS: cefTRIAXone SODIUM 2,000 MG in DEXTROSE 5% 50 ML IV SCH (17:02)
[2020-03-01] MEDS: DIGOXIN 0.125 MG TAB PO SCH (17:02)
[2020-03-01] MEDS: MONTELUKAST SODIUM 10 MG TABLET PO SCH (21:40)
[2020-03-01] MEDS: MELATONIN 3 MG TAB PO SCH (21:40)
[2020-03-01] MEDS: AZITHROMYCIN 500 MG in DEXTROSE 5% 250 ML IV SCH (21:41)
[2020-03-02] MEDS: ACETAMINOPHEN 500 MG TAB PO SCH ×6 (00:21→20:34)
[2020-03-02] MEDS: LEVOTHYROXINE SODIUM 75 MCG TABLET PO SCH (05:47)
[2020-03-02 07:39] LABS: Basophils # (auto) 0.01 K/uL (0-0.2); Basophils % (auto) 0.1 %; Eosinophils # (auto) 0.37 K/uL (0-0.5); Eosinophils % (auto) 5.5 %; Hematocrit (blood only) 31.8 % (37-47); Hemoglobin 10.5 g/dL (12.0-16.0); Immature Granulocytes # (auto) 0.02 K/uL (0.00-0.02); Immature Granulocytes % (auto) 0.3 %; Lymphocytes # (auto) 2.02 K/uL (1.2-3.4); Lymphocytes % (auto) 30.1 %; Mean Corpuscular Hemoglobin 32.9 pg (25-34); Mean Corpuscular Volume 99.7 fL (80-100); Mean Platelet Volume 10.6 fL (7.4-10.4); Monocytes # (auto) 0.89 K/uL (0.11-0.59); Monocytes % (auto) 13.3 %; Neutrophils # (auto) 3.39 K/uL (1.4-6.5); Neutrophils % (auto) 50.7 %; Platelet Count 331 K/uL (130-400); RDW Coefficient of Variation 16.5 % (11.5-14.5); RDW Standard Deviation 60.4 fL (36.4-46.3); Red Blood Count 3.19 M/uL (4.2-5.4)
[2020-03-02 07:47] LABS: INR 2.2 (0.9-1.1); Prothrombin Time 21.9 Seconds (9.0-12.0)
[2020-03-02 08:09] LABS: Albumin Level 2.7 gm/dl (3.4-5.0); BUN Creatinine Ratio 32.3 (10-20); Calcium 9.9 mg/dl (8.5-10.1); Creatinine Clr Calc Pharmacy 73.1 ml/min; Est GFR (African American) 81.8; Est GFR (Non-African American) 70.6; Potassium 3.9 mmol/L (3.5-5.1)
[2020-03-02 08:13] LABS: Albumin Globulin Ratio 0.7 (0.9-2); Bilirubin,Total 0.4 mg/dl (0.2-1); Total Protein 6.7 gm/dl (6.4-8.2)
[2020-03-02] MEDS ORDERED: VANCOMYCIN HCL 1,250 MG in SODIUM CHLORIDE 0.9% 250 ML IV ONE (09:00)
[2020-03-02] MEDS ORDERED: VANCOMYCIN HCL 1,250 MG in SODIUM CHLORIDE 0.9% 250 ML IV SCH (09:00)
[2020-03-02] MEDS: SPIRONOLACTONE 25 MG TAB PO SCH (09:58)
[2020-03-02] MEDS: SUCRALFATE 1 GM TAB PO SCH ×2 (09:58→20:39)
[2020-03-02] MEDS: POTASSIUM CHLORIDE 20 MEQ/15 ML UDC PO SCH (09:58)
[2020-03-02] MEDS: allopurinoL 100 MG TAB PO SCH (09:58)
[2020-03-02] MEDS: CHOLECALCIFEROL 1,000 UNITS 25 MCG TAB PO SCH (09:59)
[2020-03-02] MEDS: METOPROLOL SUCC 50MG EXT REL TAB PO SCH ×2 (09:59→20:39)
[2020-03-02] MEDS: DULOXETINE HCL 20 MG CAP PO SCH (09:59)
[2020-03-02] MEDS: guaiFENesin 600 MG TABCR PO SCH ×2 (09:59→20:39)
[2020-03-02] MEDS: SENNA 8.6 MG TAB PO SCH ×2 (09:59→20:39)
[2020-03-02] MEDS: FLUTICASONE/VILANTEROL 200/25MCG 14 PUFFS/INHALER INH SCH (10:00)
[2020-03-02] MEDS: ARTIFICIAL TEARS OP SCH ×3 (10:00→20:34)
[2020-03-02] MEDS: UMECLIDINIUM BROMIDE 62.5MCG/BLISTER 7 PUFFS/INHALER INH SCH (10:01)
[2020-03-02] MEDS: INSULIN ASPART 100 UNITS/ML 3 ML PEN SC SCH ×4 (10:01→20:40)
[2020-03-02] MEDS: MICONAZOLE NITRATE POWDER 43 GM TOP SCH ×3 (10:01→21:55)
[2020-03-02] MEDS: DOCUSATE SODIUM 100 MG CAP PO SCH ×2 (10:01→20:35)
--- NOTE | 2020-03-02 10:35 | Hospitalist Progress Note ---
Date of Service March 02, 2020 Assessment & Plan (1) Pneumonia: (2) Anxiety: (3) COVID-19 ruled out: (4) Leukocytosis: (5) COPD (chronic obstructive pulmonary disease): (6) Anticoagulated on Coumadin: (7) Atrial fibrillation: (8) CKD (chronic kidney disease), stage III: (9) GERD (gastroesophageal reflux disease): (10) Chronic back pain: (11) Generalized anxiety disorder: (12) History of pulmonary embolism: (13) Hypothyroidism: (14) Hypertension: (15) Myoclonus: (16) DM type 2 (diabetes mellitus, type 2): SSI, Rocephin, Vanco, and Zithromax, Nebs, Clears, Covid negative, Isolation, Wound care for LLE wound, Patient still not herself-DC Duragesic patch, DC Ativan, Dig Level, Decrease Allopurinol, Panculture NGTD, CT head-Neg Labs checked, WBCs are normal, Mg and K repleted, Gentle IVFs c K-Mg and K low, Psych and Neuro on case, Primidone stopped, Taper Psych Meds, Hold Opiates, Last day of Abx noted, Myoclonus with multiple reasons-ABX, Mult hospitalizations, Opiates, Antibiotics, Antidepressants etc. Labs Checked ROS-No Headache, No Visual Changes, No Nausea, No Vomiting, No Fever, No Chills, No Neck Pain or Stiffness, No Chest Pain, No Palpitations, No SOB, No BARBOUR, No Cough, No Sputum, No Wheezing, No Abdominal Pain, No Diarrhea, No Hematemesis, No Hemoptysis, No Unexpected Weight Loss, No Flank pain, No Melena, No Hematochezia, No Frequency, No Urgency, No Burning, No Hematuria, No Rashes, No Diaphoresis. Appetite is OK Physical Exam Gen-AAO x 3, Still not herself, NAD, Afebrile, obese, +Myoclonus Head-NCAT, EOMI, PERRLA, Anicteric Sclera, No Posterior Pharyngeal Erythema Neck-Supple, No JVD, No Thyromegaly, No Masses, No LAD, No Bruits Lungs-Clear to Auscultation Bilaterally, No Rales, No Rhonchi, No Wheezing, No Crepitus Chest-No S4, +S1, +S2, No S3, No Murmurs, No Rubs, No Gallops, No Ectopy Abdomen-Soft, Bowel Sounds Present, Non Tender, Non Distended, No Hepatomegaly, No Splenomegaly, No Palpable Masses, No Rebound, No Rigidity, No Guarding Musculoskeletal-Full Range of Motion Bilaterally, No CVAT Extremities-RLE wrapped, Removed Gauze and +RLE Large Wound Nuero-Cranial Nerves II-XII grossly intact, Motor WNL, DTRs WNL, Strength WNL, Non Focal, +UE and Facial Spasm Psych-Improved Affect Admission and Anticipated Discharge Date Admission Date: February 25, 2020 Anticipated date of discharge: 03/05/20 Results & Data Results & Data ([facility]) Vital Signs (Past 12 Hours) Vital Signs Temp Pulse Resp BP Pulse Ox 03/02/20 07:55 36.6 C 921 H 18 142/95 H 92 03/01/20 23:51 36.6 C 90 20 132/68 95 (1) Atrial fibrillation Atrial fibrillation type: unspecified Qualified Code(s): I48.91 - Unspecified atrial fibrillation
--- NOTE | 2020-03-02 15:02 | Pharmacy Report ---
Pharmacy Glycemic Short Note 2 - Date of Service March 02, 2020 - Glycemic Short BSG Results (Last 24 hours): 03/01/20 03/01/20 03/02/20 16:55 20:12 07:21 Glucose 109 H POC Glucose 176 H 148 H 03/02/20 03/02/20 07:42 11:42 Glucose POC Glucose 135 H 134 H OUTPATIENT ANTIDIABETIC REGIMEN: * n/a * A1c = 5.8% ASSESSMENT: * BSGs have been relatively well-controlled during admission with the use of Novolog only. * No changes required at this time. * Patient remains on Vanc, Rocephin, Zithromax and will complete 7 days of therapy today. PLAN FOR INPATIENT GLYCEMIC CONTROL: * Basal insulin * none at this time * Bolus insulin * NovoLog per scale ACHS or Q6hrs while NPO * Goal Range: Low 110 mg/dL - High 140 mg/dL * Correction Factor: 25 mg/dL/unit * Nutritional / Prandial insulin: 1 unit for ever 7 grams of CHO consumed DISCHARGE PLANNING: * Patient's A1c (5.8%) does not indicate that patient requires the addition of anti-diabetic medications on discharge.
[2020-03-02] MEDS: WARFARIN SOD 1 MG TAB PO SCH (16:40)
[2020-03-02] MEDS: cefTRIAXone SODIUM 2,000 MG in DEXTROSE 5% 50 ML IV SCH (16:41)
[2020-03-02] MEDS: MELATONIN 3 MG TAB PO SCH (20:39)
[2020-03-02] MEDS: MONTELUKAST SODIUM 10 MG TABLET PO SCH (20:50)
[2020-03-02] MEDS: AZITHROMYCIN 500 MG in DEXTROSE 5% 250 ML IV SCH (21:55)
[2020-03-03] MEDS: ACETAMINOPHEN 500 MG TAB PO SCH ×6 (00:51→20:43)
[2020-03-03] MEDS: LEVOTHYROXINE SODIUM 75 MCG TABLET PO SCH (06:10)
[2020-03-03 08:08] LABS: Basophils # (auto) 0.02 K/uL (0-0.2); Basophils % (auto) 0.2 %; Eosinophils % (auto) 6.9 %; Hematocrit (blood only) 33.7 % (37-47); Hemoglobin 10.8 g/dL (12.0-16.0); Immature Granulocytes # (auto) 0.02 K/uL (0.00-0.02); Immature Granulocytes % (auto) 0.2 %; Lymphocytes # (auto) 2.39 K/uL (1.2-3.4); Lymphocytes % (auto) 27.4 %; Mean Corpuscular Hemoglobin 32.1 pg (25-34); Mean Corpuscular Volume 100.3 fL (80-100); Mean Platelet Volume 10.6 fL (7.4-10.4); Monocytes # (auto) 1.11 K/uL (0.11-0.59); Monocytes % (auto) 12.7 %; Neutrophils # (auto) 4.58 K/uL (1.4-6.5); Neutrophils % (auto) 52.6 %; Platelet Count 365 K/uL (130-400); RDW Coefficient of Variation 16.3 % (11.5-14.5); RDW Standard Deviation 60.2 fL (36.4-46.3); Red Blood Count 3.36 M/uL (4.2-5.4); White Blood Count 8.72 K/uL (4.8-10.8)
[2020-03-03 08:14] LABS: INR 2.5 (0.9-1.1); Prothrombin Time 24.8 Seconds (9.0-12.0)
[2020-03-03 08:39] LABS: Albumin Globulin Ratio 0.7 (0.9-2); Albumin Level 2.8 gm/dl (3.4-5.0); BUN Creatinine Ratio 24.6 (10-20); Bilirubin,Total 0.3 mg/dl (0.2-1); Calcium 10.3 mg/dl (8.5-10.1); Creatinine Clr Calc Pharmacy 64.7 ml/min; Est GFR (Non-African American) 63.8; Globulin 4.2 gm/dl (2.5-4.0); Potassium 4.6 mmol/L (3.5-5.1)
[2020-03-03] MEDS: DULOXETINE HCL 20 MG CAP PO SCH (08:57)
[2020-03-03] MEDS: CHOLECALCIFEROL 1,000 UNITS 25 MCG TAB PO SCH (08:57)
[2020-03-03] MEDS: DOCUSATE SODIUM 100 MG CAP PO SCH ×2 (08:57→20:43)
[2020-03-03] MEDS: allopurinoL 100 MG TAB PO SCH (08:57)
[2020-03-03] MEDS: METOPROLOL SUCC 50MG EXT REL TAB PO SCH ×2 (08:57→20:45)
[2020-03-03] MEDS: SUCRALFATE 1 GM TAB PO SCH ×2 (08:57→20:43)
[2020-03-03] MEDS: guaiFENesin 600 MG TABCR PO SCH ×2 (08:57→20:44)
[2020-03-03] MEDS: SENNA 8.6 MG TAB PO SCH ×2 (08:57→20:43)
[2020-03-03] MEDS: SPIRONOLACTONE 25 MG TAB PO SCH (08:58)
[2020-03-03] MEDS: ARTIFICIAL TEARS OP SCH ×3 (08:58→20:46)
[2020-03-03] MEDS: INSULIN ASPART 100 UNITS/ML 3 ML PEN SC SCH ×4 (08:58→21:00)
[2020-03-03] MEDS: metOLazone 2.5 MG TABLET PO SCH (08:58)
[2020-03-03] MEDS: MICONAZOLE NITRATE POWDER 43 GM TOP SCH ×3 (08:59→20:44)
[2020-03-03] MEDS: UMECLIDINIUM BROMIDE 62.5MCG/BLISTER 7 PUFFS/INHALER INH SCH (08:59)
[2020-03-03] MEDS: FLUTICASONE/VILANTEROL 200/25MCG 14 PUFFS/INHALER INH SCH (08:59)
[2020-03-03] MEDS: POTASSIUM CHLORIDE 20 MEQ/15 ML UDC PO SCH (08:59)
[2020-03-03] MEDS: WARFARIN SOD 2 MG TAB PO SCH (16:11)
[2020-03-03] MEDS: DIGOXIN 0.125 MG TAB PO SCH (16:11)
--- NOTE | 2020-03-03 20:00 | Hospitalist Progress Note ---
Date of Service March 03, 2020 Assessment & Plan (1) Pneumonia: CTA chest showed small focal consolidative infiltrate left upper lung. Received Rocephin and Vanco initially Completed the course of IV Rocephin and Zithromax Blood cx no growth Continue Oxygen supplement Clinically improved significantly Tremor CT head showed no acute finding Neuro on board Started on propranolol; sister did not perceive any benefit. Presented with hypotension and bradycardia. Propranolol discontinued. Diastolic CHF History of left ventricular diastolic heart failure. Will resume Lasix and continue spironolactone Clinically stable Atrial fibrillation Rate controlled currently with metoprolol, digoxin. Continue Coumadin Hypertension BP stable Continue metoprolol and spironolactone COPD (chronic obstructive pulmonary disease): Bronchodilators as needed. Continue oxygen supplement . GERD (gastroesophageal reflux disease): Continue famotidine. Hypokalemia K 3.4 today Potassium replaced Monitor BMP DM type 2 (diabetes mellitus, type 2): History of diabetes mellitus type 2. Continue monitor BS Hypothyroidism Continue current dose of levothyroxine. Hyperuricemia: Continue allopurinol. Anemia Hgb 10.8 today Stable Anxiety/Depression Continue buspirone. Trazodone discontinued Polypharmacy: Trazodone, Fentanyl, Cymbalta, Lorazepam discontinued DVT prophylaxis on Coumadin Admission and Anticipated Discharge Date Admission Date: February 25, 2020 Anticipated date of discharge: 03/05/20 Subjective Pt was seen and examined Lying in bed with no distress Pt said that her tremors improved Pt would like to be discharged Denies any chest pain, palpitation, dizziness and SOB Physical Exam Physical Exam: General- No acute distress Head- atraumatic Eyes- PERRL, EOMI, ENT- oropharynx clear Neck- supple, no JVD Lungs- clear to auscultation Heart- Regular Abdomen- normal bowel sounds, soft, nontender Extremities- no calf tenderness Neuro- alert, oriented, PERRL, EOMI; no facial palsy; no dysarthria Skin- warm & dry Results & Data [facility]) Vital Signs (Past 12 Hours) Vital Signs Temp Pulse Pulse Pulse Resp BP Pulse Ox 03/03/20 16:11 83 03/03/20 15:42 36.8 C 83 18 124/76 90 03/03/20 08:16 36.8 C 97 H 18 131/80 90 (1) Pneumonia Laterality: left Lung location: upper lobe of lung Pneumonia type: due to unspecified organism Qualified Code(s): J18.9 - Pneumonia, unspecified organism
[2020-03-03] MEDS: MONTELUKAST SODIUM 10 MG TABLET PO SCH (20:43)
[2020-03-03] MEDS: MELATONIN 3 MG TAB PO SCH (20:44)
[2020-03-04] MEDS: ACETAMINOPHEN 500 MG TAB PO SCH ×4 (00:21→12:56)
[2020-03-04] MEDS: LEVOTHYROXINE SODIUM 75 MCG TABLET PO SCH (06:01)
[2020-03-04] MEDS: SUCRALFATE 1 GM TAB PO SCH (08:46)
[2020-03-04] MEDS: guaiFENesin 600 MG TABCR PO SCH (08:47)
[2020-03-04] MEDS: DOCUSATE SODIUM 100 MG CAP PO SCH (08:47)
[2020-03-04] MEDS: METOPROLOL SUCC 50MG EXT REL TAB PO SCH (08:47)
[2020-03-04] MEDS: CHOLECALCIFEROL 1,000 UNITS 25 MCG TAB PO SCH (08:47)
[2020-03-04] MEDS: SENNA 8.6 MG TAB PO SCH (08:47)
[2020-03-04] MEDS: allopurinoL 100 MG TAB PO SCH (08:48)
[2020-03-04] MEDS: DULOXETINE HCL 20 MG CAP PO SCH (08:48)
[2020-03-04] MEDS: SPIRONOLACTONE 25 MG TAB PO SCH (08:49)
[2020-03-04] MEDS: INSULIN ASPART 100 UNITS/ML 3 ML PEN SC SCH ×2 (08:49→12:57)
[2020-03-04 08:53] LABS: Creatinine Clr Calc Pharmacy 66.8 ml/min; Est GFR (African American) 76.1; Est GFR (Non-African American) 65.6
[2020-03-04] MEDS: MICONAZOLE NITRATE POWDER 43 GM TOP SCH ×2 (08:53→12:58)
[2020-03-04] MEDS: POTASSIUM CHLORIDE 20 MEQ/15 ML UDC PO SCH (08:53)
[2020-03-04] MEDS: UMECLIDINIUM BROMIDE 62.5MCG/BLISTER 7 PUFFS/INHALER INH SCH (08:53)
[2020-03-04] MEDS: FLUTICASONE/VILANTEROL 200/25MCG 14 PUFFS/INHALER INH SCH (08:53)
[2020-03-04] MEDS: ARTIFICIAL TEARS OP SCH ×2 (08:53→12:57)
--- NOTE | 2020-03-04 10:30 | Pharmacy Report ---
Pharmacy Glycemic Sign Off Nt - Date of Service March 04, 2020 - Assessment & Plan ASSESSMENT: * Pharmacy was consulted by Dr Villeda on 02/26/2020 for glycemic control and to write orders per [facility] inpatient glycemic control protocol. * Major changes made by pharmacy to antidiabetic regimen include: * initiation of Novolog * Patient has been receiving/requiring <10 units of insulin per day for adequate glycemic control * BSGs ranging 106- 126 mg/dl * Regimen has only required minor adjustments over the past 48hrs to achieve this level of control * Do not anticipate further changes in patient status that would quickly deteriorate glycemic control (i.e. patient to be NPO for upcoming procedure, steroids tapering, starting tube feedings, etc). * Please see recommendations for outpatient antidiabetic regimen below. PLAN FOR INPATIENT GLYCEMIC CONTROL: No changes needed to current regimen. * Continue NovoLog per scale ACHS/Q6hrs while NPO * Goal range = 110- 140 mg/dl * CF = 25 mg/dl/unit * CR = 1 unit for ever 7 g CHO consumed * Pharmacy is signing off of glycemic consult and will no longer be making adjustments to inpatient regimen. Please feel free to re-consult if needed. Thank you. DISCHARGE RECOMMENDATIONS: * A1c 5.8 % on 02/13/20 * no recommendations for discharge.
--- NOTE | 2020-03-05 22:48 | Discharge Summary ---
Date of Service March 04, 2020 Admission HPI Per Admitting Provider 79 yo female here for long stays twice in the last month returns today c abdominal pain. The pain started last night and is in the middle of her abdomen. The patient did have an episode of nausea and vomiting yesterday as well. Per ER the Patient does not present with cough, fevers, chills, coronavirus contacts, coronavirus testing, or recent travel. The patient is DNR/DNI. Patient did have sinus issues with respiratory failure and does chronically use oxygen. On CT chest she was found to have a Pneumonia and labs revealed a Leukocytosis. SHe had enterococcus in her urine on a previous culture. Admission Exam Per Admitting Provider Gen-AAO x 3, Not herself, NAD, Afebrile, obese Head-NCAT, EOMI, PERRLA, Anicteric Sclera, No Posterior Pharyngeal Erythema Neck-Supple, No JVD, No Thyromegaly, No Masses, No LAD, No Bruits Lungs-Clear to Auscultation Bilaterally, No Rales, No Rhonchi, No Wheezing, No Crepitus Chest-No S4, +S1, +S2, No S3, No Murmurs, No Rubs, No Gallops, No Ectopy Abdomen-Soft, Bowel Sounds Present, Non Tender, Non Distended, No Hepatomegaly, No Splenomegaly, No Palpable Masses, No Rebound, No Rigidity, No Guarding Musculoskeletal-Full Range of Motion Bilaterally, No CVAT Extremities-LLE wrapped Nuero-Cranial Nerves II-XII grossly intact, Motor WNL, DTRs WNL, Strength WNL, Non Focal Psych-Odd Affect Principal Diagnosis Pneumonia Tremor Diastolic CHF Atrial fibrillation Hypertension COPD (chronic obstructive pulmonary disease) GERD (gastroesophageal reflux disease) DM type 2 (diabetes mellitus, type 2) Hypothyroidism Hyperuricemia Anemia Anxiety Polypharmacy Discharge Exam General- No acute distress Head- atraumatic Eyes- PERRL, EOMI, ENT- oropharynx clear Neck- supple, no JVD Lungs- clear to auscultation Heart- Regular Abdomen- normal bowel sounds, soft, nontender Extremities- no calf tenderness Neuro- alert, oriented, PERRL, EOMI; no facial palsy; no dysarthria Skin- warm & dry Discharge Data Allergies Allergy/AdvReac Type Severity Reaction Status Date / Time meperidine [From Demerol] Allergy Unknown ON [facility] Verified 02/25/20 13:33 [facility] LIST sulfite Allergy On [facility] Unverified 02/25/20 13:33 [facility] list morphine AdvReac Intermediate vomiting Verified 02/25/20 13:33 oxycodone AdvReac Intermediate vomit blood Verified 02/25/20 13:33 propoxyphene AdvReac Intermediate abd vomit Verified 02/25/20 13:33 blood tramadol AdvReac Intermediate vomiting Verified 02/25/20 13:33 Bactrim AdvReac Mild GI SYMPTOMS Verified 03/06/18 21:06 codeine AdvReac Mild vomiting Verified 02/25/20 13:33 olmesartan AdvReac Mild GI SYMPTOMS Verified 02/25/20 13:33 Sulfa (Sulfonamide AdvReac Mild GI SYMPTOMS Verified 02/25/20 13:33 Antibiotics) sulfamethoxazole AdvReac Mild GI SYMPTOMS Verified 02/25/20 13:33 trimethoprim AdvReac Mild GI SYMPTOMS Verified 02/25/20 13:33 carisoprodol AdvReac Unknown GI SYMPTOMS Verified 02/25/20 13:33 Consultations 02/25/20 16:44 ED Decision to Admit Stat 03/01/20 08:06 Consult Neurology Routine 03/01/20 08:08 Consult Psychiatry Routine Ordered Studies 02/25/20 13:31 CT angio abdomen pelvis w con Stat 02/25/20 13:32 CT angio chest dissec wo/w con Stat 02/27/20 08:38 CT head/brain wo con Urgent CT angio abdomen pelvis w con HISTORY: mid ab pain TECHNIQUE: Multiaxial CT images of the abdomen and pelvis were performed following the use of intravenous contrast to evaluate the major arterial structures. Maximal intensity images were also obtained. COMPARISON STUDY: Abdomen and pelvis CT 01/22/2020. FINDINGS: Please refer to the same day chest CTA for further evaluation of the thoracic aorta. There is motion artifact within the abdomen and pelvis resulting in suboptimal evaluation. This results in suboptimal evaluation of the upper abdomen. Moderate calcified plaque at the origins of the celiac, superior mesenteric, and renal arteries. This results in at least 50% stenosis within the superior mesenteric and left renal artery. However, this is difficult to quantitate given the motion artifact. The degree of stenosis in the celiac artery is also essentially nondiagnostic given the motion artifact. Abdominal aorta is normal in course and caliber with no evidence for dissection. The bilateral iliac arteries are widely patent. The IVC is also patent. The main portal vein is likely patent. No pneumoperitoneum. No pneumatosis. No fractures within the visualized osseous structures. Midline abdominal wall laxity is noted. Evidence for midline ventral hernia repair. Cholecystectomy. No definite hepatic or splenic masses. The adrenal glands and pancreas are unremarkable. Moderate bilateral cortical renal thinning. Subcentimeter hypodensities are too small to characterize but favor cysts. No hydronephrosis. No retroperitoneal lymphadenopathy. The bladder, uterus, left adnexa are unremarkable. There is a 3.4 cm right adnexal cyst, unchanged. Colonic diverticulosis. No evidence for diverticulitis. No definite bowel wall thickening or obstruction. Normal appendix. IMPRESSION: 1. Normal caliber abdominal aorta with no evidence for dissection. 2. Moderate calcified plaque at the origins of the celiac, superior mesenteric, and left renal arteries resulting in moderate stenosis. 3. Please refer to the same day chest CT for further evaluation of the thoracic aorta. 4. Additional findings as described above. ACT 112: Negative or not required by law. Electronically signed by: Neo Alcazar M.D. 02/25/2020 2:50 PM Dictated: 02/25/20 1442 Transcribed: 02/25/[address] angio chest dissec wo/w con CT DOSE: 3589.57 mGy.cm HISTORY: Pain. mid ab pain; r/o dissection TECHNIQUE: Multiaxial CT images of the chest, abdomen, and pelvis were performed both before and after the intravenous administration of contrast to evaluate the aorta. Maximal intensity projection images were also obtained. A dose lowering technique was utilized adhering to the principles of ALARA. COMPARISON STUDY: 07/03/2019 FINDINGS: Thoracic aorta enhances appropriately. No evidence for aneurysm or dissection. Moderate atherosclerotic change. Pulmonary vasculature enhances appropriately. Slight interstitial prominence throughout both hemithoraces. Focal infiltrative process left upper lung image 23. This less likely represents parenchymal nodularity due to the short interval timeframe from the prior study. Significant degenerative change throughout the thoracic spine with evidence for moderate kyphosis. IMPRESSION: 1. No evidence for aneurysm or dissection. 2. Mild interstitial prominence throughout both hemithoraces. 3. Small focal consolidative infiltrate left upper lung. ACT 112: Negative or not required by law. The above report was generated using voice recognition software. It may contain grammatical, syntax or spelling errors. Electronically signed by: Brain An M.D. 02/25/2020 2:46 PM Dictated: 02/25/20 1441 Transcribed: 02/25/[address] DOSE: 614.27 mGy.cm HISTORY: Altered mental status. TECHNIQUE: Multiaxial CT images of the head were performed without the use of intravenous contrast. Automated exposure control was utilized for this study. A dose lowering technique was utilized adhering to the principles of ALARA. Comparison: Head CT 01/22/2020. Findings: The paranasal sinuses and mastoid air cells are clear. The calvarium and skull base are intact. There is no mass, hematoma, midline shift, acute i nfarct. White matter hypodensity is nonspecific but suggestive of microvascular ischemic change. The ventricles and sulci demonstrate mild age-related involutional changes. Old small focus of encephalomalacia within the right parietal peripheral white matter. 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 Atrophy and microvascular ischemic changes. ACT 112: Negative or not required by law. Electronically signed by: Neo Alcazar M.D. 02/27/2020 9:21 AM Dictated: 02/27/20 0915 Transcribed: 02/27/20 0915 Hospital Course (1) Pneumonia: CTA chest showed small focal consolidative infiltrate left upper lung. Received Rocephin and Vanco initially Completed the course of IV Rocephin and Zithromax Blood cx no growth Continue Oxygen supplement Clinically improved significantly Tremor CT head showed no acute finding Neuro on board Started on propranolol; sister did not perceive any benefit. Presented with hypotension and bradycardia. Propranolol discontinued. Diastolic CHF History of left ventricular diastolic heart failure. Will resume Lasix and continue spironolactone Clinically stable Atrial fibrillation Rate controlled currently with metoprolol, digoxin. Continue Coumadin Hypertension BP stable Continue metoprolol and spironolactone COPD (chronic obstructive pulmonary disease): Bronchodilators as needed. Continue oxygen supplement . GERD (gastroesophageal reflux disease): Continue famotidine. Hypokalemia K 3.4 today Potassium replaced Monitor BMP DM type 2 (diabetes mellitus, type 2): History of diabetes mellitus type 2. Continue monitor BS Hypothyroidism Continue current dose of levothyroxine. Hyperuricemia: Continue allopurinol. Anemia Hgb 10.8 today Stable Anxiety/Depression Continue buspirone. Trazodone discontinued Polypharmacy: Trazodone, Fentanyl, Cymbalta, Lorazepam discontinued DVT prophylaxis on Coumadin Total Time Total Time Spent Total Time Spent (In Minutes): 35 minutes Total Time Includes: Examination of the Patient, Discharge Planning, Medication Reconciliation, Communication With Other Providers and Other Discharge Plan Discharge Items Patient Disposition: Transfer Half-Way Fac Reason For Visit: PNEUMONIA Discharge Diagnosis: Pneumonia Tremor Diastolic CHF Atrial fibrillation Hypertension COPD (chronic obstructive pulmonary disease) GERD (gastroesophageal reflux disease) DM type 2 (diabetes mellitus, type 2) Hypothyroidism Hyperuricemia Anemia Anxiety Polypharmacy Activity: Resume your previous activity Non-emergency contact: Primary Care Provider, Neurologist and Psychiatrist Call non-emergency contact if: you have any medication questions Follow-up/Referrals: Freddy Pinto [Primary Care Provider] - Diet: Carb Consistent or DM2 Addtl Attending Provider Instructions: Follow up with your primary care provider Follow up with neurology as needed if tremors worsening Follow up with your psychiatrist Continue physical and occupational therapy Continue monitor PT/INR Check BMP in 1 week to monitor electrolytes and kidney function Fall precaution Pending Studies at Discharge: No Stand-Alone Forms: My [facility] Skilled Items Patient informed of condition?: Yes DNR: Yes Discharge Level of Care: Skilled Communicable Disease: No Discharge Prognosis: Stable Lines: None Urinary Catheter: No Medications and DC Order Prescriptions: New duloxetine 20 mg Capsule,Delayed Release(Dr/Ec) 40 mg PO QAM 30 Days Qty: 60 RF: 0 Continued digoxin [Digox] 125 mcg tablet 125 mcg PO MOWEFR RF: 0 spironolactone [Aldactone] 25 mg tablet 25 mg PO QAM RF: 0 cholecalciferol (vitamin D3) 1,000 unit capsule 1,000 units PO QAM RF: 0 sucralfate [Carafate] 1 gram Tablet 1 g PO AMPM RF: 0 allopurinol [Zyloprim] 100 mg Tablet 200 mg PO QAM RF: 0 levothyroxine [Synthroid] 75 mcg Tablet 75 mcg PO DAILYBB RF: 0 meclizine [Dramamine Less Drowsy] 25 mg Tablet 25 mg PO TID PRN (Reason: Dizziness) RF: 0 docusate sodium [Colace] 100 mg Capsule 100 mg PO BID RF: 0 montelukast [Singulair] 10 mg Tablet 10 mg PO QPM RF: 0 acetaminophen [Tylenol] 325 mg Capsule 650 mg PO Q4H MDD 3,000 mg PRN (Reason: Fever) RF: 0 melatonin 10 mg Tablet 10 mg PO HS RF: 0 simethicone [Gas Relief (simethicone)] 180 mg Capsule 180 mg PO DAILY PRN (Reason: Gastrointestinal Spasms Or Cramping) RF: 0 sennosides [senna] 8.6 mg Tablet 8.6 mg PO BID RF: 0 Incruse Ellipta 62.5 mcg/actuation Blister With Device 1 inh INHALATION QAM RF: 0 warfarin [Coumadin] 1 mg tablet 1 mg PO SUTUTHSA RF: 0 ondansetron HCl [Zofran] 8 mg Tablet 8 mg PO Q8H PRN (Reason: Nausea) RF: 0 acetaminophen [Tylenol Extra Strength] 500 mg Tablet 1,000 mg PO Q8H PRN (Reason: Pain) RF: 0 magnesium hydroxide [Milk of Magnesia] 400 mg/5 mL Suspension 30 ml PO DAILY PRN (Reason: Constipation) RF: 0 bisacodyl [Dulcolax (bisacodyl)] 10 mg Suppository 10 mg AL DAILY PRN (Reason: Constipation) RF: 0 Enema 19-7 gram/118 mL Enema 118 ml AL DAILY PRN (Reason: Constipation) RF: 0 ArgiMent AT 10 gram-7 gram/42.75 gram Powder In Packet 10 g PO BID RF: 0 Micro-Guard 2 % Powder 1 applic TOPICAL TID RF: 0 betamethasone dipropionate 0.05 % Ointment 1 applic TOPICAL BID PRN (Reason: Dermatitis) RF: 0 buspirone 10 mg Tablet 10 mg PO BID RF: 0 metoprolol succinate [Toprol XL] 100 mg Tablet Extended Release 24 Hr 100 mg PO BID RF: 0 metolazone 2.5 mg Tablet 2.5 mg PO WESA RF: 0 guaifenesin [Siltussin SA] 100 mg/5 mL Liquid 200 mg PO Q4H PRN (Reason: Cough) RF: 0 famotidine [Pepcid] 20 mg tablet 20 mg PO BID RF: 0 furosemide [Lasix] 80 mg tablet 80 mg PO QAM RF: 0 fluticasone propion-salmeterol [Advair Diskus] 500-50 mcg/dose blister with device 1 ea INHALATION BID RF: 0 Cepacol Sore Throat (nataliia-men) 15-2.6 mg Lozenge 1 huan PO Q2H PRN (Reason: Sore Throat) RF: 0 guaifenesin [Mucinex] 600 mg Tablet Extended Release 12hr 600 mg PO BID RF: 0 levalbuterol HCl [Xopenex] 0.63 mg/3 mL Solution For Nebulization 0.63 mg INHALATION Q4H PRN (Reason: Wheezing) RF: 0 Refresh Classic (PF) 1.4-0.6 % dropperette 2 drp OPB TID RF: 0 glucosamine-chondroitin 250-200 mg Tablet 1 tab PO TID RF: 0 warfarin [Coumadin] 1 mg Tablet 2 mg PO MOWEFR RF: 0 Changed tramadol [Ultram] 50 mg Tablet 50 mg PO Q8H MDD 300 mg PRN (Reason: Pain) Qty: 0 RF: 0 Discontinued duloxetine [Cymbalta] 60 mg Capsule,Delayed Release(Dr/Ec) 60 mg PO QAM RF: 0 trazodone 50 mg tablet 50 mg PO HS RF: 0 fentanyl [Duragesic] 25 mcg/hr patch 72 hour 25 mcg topical [id number] RF: 0 lorazepam [Ativan] 0.5 mg Tablet 0.5 mg PO BID PRN (Reason: Anxiety) RF: 0 Discharge Orders: Discharge Order (Routine); Ordered 03/04/20 Ordered By: Yee Varela Admission Data Admit Date/Time: 02/25/20 18:01 Attending Provider: Yee Varela Admit Provider: Anam Villeda Primary Care Provider: Freddy Pinto Other Providers: Anam Paige ; Rebekah Wilson ; Shoshana Locke ; Anam Villeda Other Interventions: Discharge Summary Assessment (RN) Last Done: 03/04/20 13:25 DC Date/Time DO NOT enter until pt leaves facility: 03/04/20 15:24
== END 2020-03-04 15:24 | DRG 194 ==
LOC: ED 13:00 → 2W 18:01 → SUATTDRO 18:01 → 2W 20:09